=== PATIENT | female | born 1945 | race American Indian/Alaskan Native ===

== ENCOUNTER 2017-02-15 18:02 | Inpatient (IN) | payer BC, MEDICARE ==
[2017-02-15 18:12] VITALS: BMI 69.5
[2017-02-15] MEDS ORDERED: Albuterol-Ipratrop 3 mg / 0.5 (3 ml) UD IH STA ×2 (18:50→18:52)
[2017-02-15 19:21] LABS: BASO # 0.04 K/mm3 (0.0-2.0); BASO % 0.4 % (0.0-3.0); EOS # 0.5 (0.0-0.7); EOS % 5.1 % (1.5-5.0); GRAN # 6.95 (1.4-6.5); GRAN % 72.5 % (50.0-68.0); HEMOGLOBIN 11.7 gm/dL (12.0-16.0); LYMPH # 1.7 (1.2-3.4); LYMPH % 17.4 % (22.0-35.0); MEAN CELL VOLUME 87.2 fL (80.0-105.0); MEAN CORPUSCULAR HEMOGLOBIN 27.8 pg (25.0-35.0); MEAN CORPUSCULAR HGB CONC 31.9 g/dl (31.0-37.0); MEAN PLATELET VOLUME 10.3 fl (7.0-11.0); MONO # 0.4 (0.1-0.6); MONO % 4.6 % (1.0-6.0); PLATELET COUNT 256 10^3/uL (120.0-450.0); RBC 4.21 10^6/uL (3.5-6.1); RED CELL DISTRIBUTION WIDTH 15.6 % (11.5-14.5); WHITE BLOOD COUNT 9.6 10^3/ul (4.5-11.0)
[2017-02-15 19:28] LABS: INR 2.08 (0.93-1.08); PARTIAL THROMBOPLASTIN TIME 45.8 Seconds (23.7-30.8); PROTHROMBIN TIME 22.5 Seconds (9.9-11.8)
[2017-02-15 19:30] LABS: ALB/GLOB RATIO 0.9 (1.1-1.8); ALBUMIN 3.4 g/dL (3.0-4.8); ALT/SGPT 20 U/L (7-56); AST/SGOT 15 U/L (15-39); BLOOD UREA NITROGEN 15 mg/dL (7-21); CALCIUM 8.8 mg/dL (8.4-10.5); GFR AFRICAN-AMERICAN > 60; GFR NON-AFRICAN AMERICAN > 60
[2017-02-15 19:40] LABS: B-TYPE NATRIURETIC PEPTIDE 2680 pg/mL (0-450)
[2017-02-15 19:41] LABS: TROPONIN I < 0.01 ng/mL
--- NOTE | 2017-02-15 21:41 | ED PDOC ---
Arrival/HPI - General Chief Complaint: Shortness Of Breath Time Seen by Provider: 02/15/17 18:31 Historian: Patient - History of Present Illness Narrative History of Present Illness (Text): 02/15/17 21:41 A 71 year old female presents to the emergency department complaining of worsening shortness of breath over the past few days. Patient notes a non- productive cough. As per EMS, patient received a nebulizer treatment on route to emergency room. Patient notes her symptoms improved after medication. Patient denies any fever, chills, nausea, vomiting, diarrhea, abdominal pain, urinary symptoms, chest pain or any other complaints. PMD: Dr. Mann Time/Duration: < week Symptom Course: Improving Quality: Other Context: Other Past Medical History - Provider Review Nursing Documentation Reviewed: Yes - Infectious Disease Hx of Infectious Diseases: None - Tetanus Immunization Tetanus Immunization: Unknown - Cardiac Hx Cardiac Disorders: Yes (lymphedema) Hx Angina: Yes Hx Cardiac Arrhythmia: Yes Hx Congestive Heart Failure: Yes Hx Peripheral Edema: Yes Hx Peripheral Vascular Disease: Yes - Pulmonary Hx Respiratory Disorders: Yes (using 02 at home) Hx Asthma: Yes Hx Chronic Obstructive Pulmonary Disease (COPD): Yes Hx Emphysema: Yes Hx Pneumonia: Yes - Neurological Hx Neurological Disorder: No - HEENT Hx HEENT Disorder: Yes (glasses) - Renal Hx Renal Disorder: No - Endocrine/Metabolic Hx Endocrine Disorders: Yes Hx Diabetes Mellitus Type 2: Yes - Hematological/Oncological Hx Blood Disorders: Yes (SEPTICEMIA) - Integumentary Hx Dermatological Disorder: Yes Other/Comment: pt is obese, right outer thigh skin openings healed, redness, hard brown dry skin, dimpling to left thigh, pt c/o that she, sometimes has drainage from left thigh. both lower legs and feet dry skin. redness and discoloration to right abd fold healed, pt unable to turn in bed to assess skin on back, ble +4 pitting edema redness - Musculoskeletal/Rheumatological Hx Falls: No - Gastrointestinal Hx Gastrointestinal Disorders: Yes (benign mass removed from abd 30 yrs ago) - Genitourinary/Gynecological Hx Genitourinary Disorders: Yes Hx Incontinence: Yes (urine and stool) Hx Urinary Tract Infection: Yes - Psychiatric Hx Psychophysiologic Disorder: No Hx Substance Use: No - Surgical History Hx Cardiac Catheterization: Yes Other/Comment: cardiac cath 2006, picc line, sx to right leg for an infection - Anesthesia Hx Anesthesia: Yes - Suicidal Assessment Feels Threatened In Home Enviroment: No Family/Social History - Physician Review Nursing Documentation Reviewed: Yes Family/Social History: No Known Family HX Smoking Status: Never Smoked Hx Alcohol Use: No Hx Substance Use: No Hx Substance Use Treatment: No Allergies/Home Meds Allergies/Adverse Reactions: Allergies methylprednisolone [From Solu-Medrol] Adverse Reaction (Verified 02/15/17 18:33) RASH make her shake and about to passout Home Medications: Home Meds Medication Instructions Recorded Confirmed Potassium Chloride [K-Dur 20 mEq 20 meq PO DAILY 12/01/15 02/15/17 ER Tab] Digoxin [Digitek] 0.25 mg PO DAILY 12/26/15 02/15/17 Furosemide [Lasix] 60 mg PO BID 12/26/15 02/15/17 Pantoprazole [Protonix EC Tab] 40 mg PO DAILY 12/26/15 02/15/17 Warfarin [Coumadin] 4 mg PO DAILY 12/30/15 02/15/17 Diltiazem HCl [Cartia Xt] 180 mg PO DAILY 04/11/16 02/15/17 MetFORMIN [glucoPHAGE] 500 mg PO BID 04/11/16 02/15/17 Methylprednisolone [Medrol] 2 mg PO DAILY PRN 06/30/16 02/15/17 Review of Systems - Physician Review All systems were reviewed & negative as marked: Yes - Review of Systems Constitutional: absent: Fevers, Night Sweats Respiratory: SOB, Cough. absent: Sputum Cardiovascular: absent: Chest Pain Gastrointestinal: absent: Abdominal Pain, Nausea, Vomiting Genitourinary Female: absent: Dysuria, Frequency, Hematuria, Urine Output Changes Physical Exam Vital Signs Reviewed: Yes Vital Signs Temp Pulse Resp BP Pulse Ox 02/16/17 01:30 92 H 20 112/64 100 02/15/17 23:00 67 18 113/41 L 100 02/15/17 19:04 117/54 L 02/15/17 18:23 24 02/15/17 18:10 98.0 F 65 24 117/54 L 100 Temperature: Afebrile Blood Pressure: Hypotensive Pulse: Regular Respiratory Rate: Normal Appearance: Positive for: Non-Toxic, Comfortable, Other (Morbidly obese female) Pain Distress: None Mental Status: Positive for: Alert and Oriented X 3 - Systems Exam Head: Present: Atraumatic, Normocephalic Pupils: Present: PERRL Extroacular Muscles: Present: EOMI Conjunctiva: Present: Normal Mouth: Present: Moist Mucous Membranes Neck: Present: Normal Range of Motion Respiratory/Chest: Present: Good Air Exchange, Wheezes (bilateral expiratory wheezing). No: Respiratory Distress, Accessory Muscle Use Cardiovascular: Present: Normal S1, S2, Irregular Rhythm. No: Murmurs Abdomen: Present: Normal Bowel Sounds. No: Tenderness, Distention, Peritoneal Signs Back: Present: Normal Inspection Upper Extremity: Present: Normal Inspection. No: Cyanosis, Edema Lower Extremity: Present: Edema (Bilateral pitting edema), NORMAL PULSES. No: CALF TENDERNESS Neurological: Present: GCS=15, CN II-XII Intact, Speech Normal Skin: Present: Warm, Dry, Normal Color. No: Rashes Psychiatric: Present: Alert, Oriented x 3, Normal Insight, Normal Concentration Medical Decision Making ED Course and Treatment: 02/15/17 21:41 Impression: A 71 year old female with worsening shortness of breath and non-productive cough. Plan: -- Chest xray -- EKG -- Labs -- Duoneb, Lasix and Prednisone -- Reassess and disposition Progress Notes: EKG shows atrial fibrillation at 67 BPM. Interpreted by me. After receiving treatments of Duoneb, Lasix and Prednisone, patient reports she feels better. Case discussed with PMD, who is aware of plan. - Lab Interpretations Lab Results: 02/16/17 07:00 02/16/17 07:00 Lab Results 02/16/17 07:00: Sodium 138, Potassium 3.9, Chloride 102, Carbon Dioxide 29, Anion Gap 11, BUN 15, Creatinine 0.7, Est GFR ( Amer) > 60, Est GFR (Non- Af Amer) > 60, Random Glucose 181 H, Calcium 8.7, Phosphorus 3.3, Magnesium 2.0 , Total Bilirubin 0.3, AST 15, ALT 22, Alkaline Phosphatase 62, Total Protein 6.5, Albumin 3.2, Globulin 3.3, Albumin/Globulin Ratio 1.0 L 02/16/17 07:00: WBC 7.9, RBC 4.07, Hgb 10.9 L, Hct 35.2 L, MCV 86.5, MCH 26.8, MCHC 31.0, RDW 15.3 H, Plt Count 259, MPV 10.3, Gran % 92.7 H, Lymph % (Auto) 6.7 L, [place] % (Auto) 0.5 L, Eos % (Auto) 0.0 L, Baso % (Auto) 0.1, Gran # 7.32 H , Lymph # 0.5 L, [place] # 0.0 L, Eos # 0.0, Baso # 0.01 02/15/17 18:25: PT 22.5 H, INR 2.08 H, APTT 45.8 H 02/15/17 18:25: Digoxin 0.9 02/15/17 18:25: Sodium 138, Potassium 3.8, Chloride 101, Carbon Dioxide 29, Anion Gap 12, BUN 15, Creatinine 0.8, Est GFR ( Amer) > 60, Est GFR (Non- Af Amer) > 60, Random Glucose 111 H, Calcium 8.8, Total Bilirubin 0.4, AST 15, ALT 20, Alkaline Phosphatase 80, Lactate Dehydrogenase 325 L, Total Creatine Kinase < 20 L, Troponin I < 0.01, NT-Pro-B Natriuret Pep 2680 H, Total Protein 7.0, Albumin 3.4, Globulin 3.6, Albumin/Globulin Ratio 0.9 L 02/15/17 18:25: WBC 9.6 D, RBC 4.21, Hgb 11.7 L, Hct 36.7, MCV 87.2, MCH 27.8, MCHC 31.9, RDW 15.6 H, Plt Count 256, MPV 10.3, Gran % 72.5 H, Lymph % (Auto) 17.4 L, [place] % (Auto) 4.6, Eos % (Auto) 5.1 H, Baso % (Auto) 0.4, Gran # 6.95 H , Lymph # 1.7, [place] # 0.4, Eos # 0.5, Baso # 0.04 I have reviewed the lab results: Yes - RAD Interpretation Radiology Orders: 02/15/17 18:50 CHEST PORTABLE [RAD] Stat - Medication Orders Current Medication Orders: Albuterol/Ipratropium (Duoneb 3 Mg/0.5 Mg (3 Ml) Ud) 2.5 ml IH Q6 RONI Stop: 02/25/17 00:01 Last Admin: 02/17/17 01:40 Dose: Not Given Non-Admin Reason: Patient Refused Albuterol/Ipratropium (Duoneb 3 Mg/0.5 Mg (3 Ml) Ud) 2.5 ml IH Q2 PRN PRN Reason: SOB Last Admin: 02/16/17 04:24 Dose: 2.5 ml Budesonide (Pulmicort Respules) 1 mg IH BIDRESP RONI Digoxin (Lanoxin) 0.25 mg PO 1400 [facility] Last Admin: 02/16/17 13:31 Dose: 0.25 mg Diltiazem HCl (Cardizem Cd) 180 mg PO DAILY RONI Last Admin: 02/16/17 09:10 Dose: 180 mg Docusate Sodium (Colace) 100 mg PO BID RONI Last Admin: 02/16/17 17:37 Dose: 100 mg Furosemide (Lasix) 40 mg IVP Q12 RONI Last Admin: 02/16/17 21:44 Dose: 40 mg Guaifenesin (Robitussin) 100 mg PO Q4H PRN PRN Reason: Cough Ceftriaxone Sodium (Rocephin 1 Gram Ivpb) 1 gm in 100 mls @ 100 mls/hr IVPB DAILY RONI PRN Reason: Protocol Last Admin: 02/16/17 10:27 Dose: 100 mls/hr Methylprednisolone (Solu-Medrol) 40 mg IVP Q8H RONI Last Admin: 02/16/17 23:36 Dose: 40 mg Pantoprazole Sodium (Protonix Ec Tab) 40 mg PO 0600,1800 [facility] Last Admin: 02/16/17 17:37 Dose: 40 mg Potassium Chloride (K-Dur 20 Meq Er Tab) 20 meq PO BID RONI Stop: 02/18/17 23:59 Last Admin: 02/16/17 17:37 Dose: 20 meq Tiotropium [place] (Spiriva) 18 mcg IH DAILY RONI Last Admin: 02/16/17 09:11 Dose: 18 mcg Warfarin Sodium (Coumadin) 4 mg PO 1800 RONI PRN Reason: Protocol Stop: 02/18/17 18:01 Last Admin: 02/16/17 17:39 Dose: 4 mg Discontinued Medications Albuterol/Ipratropium (Duoneb 3 Mg/0.5 Mg (3 Ml) Ud) 3 ml IH STAT STA Stop: 02/15/17 18:51 Last Admin: 02/15/17 19:03 Dose: 3 ml Albuterol/Ipratropium (Duoneb 3 Mg/0.5 Mg (3 Ml) Ud) 3 ml IH STAT STA Stop: 02/15/17 18:53 Last Admin: 02/15/17 19:39 Dose: Not Given Non-Admin Reason: Patient Refused Albuterol/Ipratropium (Duoneb 3 Mg/0.5 Mg (3 Ml) Ud) 2 ml IH Q2 PRN PRN Reason: SOB Albuterol/Ipratropium (Duoneb 3 Mg/0.5 Mg (3 Ml) Ud) 2.5 ml IH STAT STA Stop: 02/16/17 04:26 Furosemide (Lasix) 40 mg IVP STAT STA Stop: 02/15/17 18:51 Last Admin: 02/15/17 19:04 Dose: 40 mg Prednisone (Prednisone Tab) 60 mg PO STAT ONE Stop: 02/15/17 18:52 Last Admin: 02/15/17 19:04 Dose: 60 mg Prednisone (Prednisone Tab) 40 mg PO DAILY RONI Stop: 02/18/17 23:59 Fluticasone/Salmeterol (Advair Diskus 250/50) 1 puff IH Q12 RONI - Scribe Statement The provider has reviewed the documentation as recorded by the Ashly Aquino Provider Scribe Attestation: All medical record entries made by the Scribe were at my direction and personally dictated by me. I have reviewed the chart and agree that the record accurately reflects my personal performance of the history, physical exam, medical decision making, and the department course for this patient. I have also personally directed, reviewed, and agree with the discharge instructions and disposition. Disposition/Present on Arrival - Present on Arrival Any Indicators Present on Arrival: No History of DVT/PE: No History of Uncontrolled Diabetes: No Urinary Catheter: No History of Decub. Ulcer: No History Surgical Site Infection Following: None - Disposition Have Diagnosis and Disposition been Completed?: Yes Diagnosis: Acute exacerbation of CHF (congestive heart failure), COPD (chronic obstructive pulmonary disease), Morbid obesity Disposition: HOSPITALIZED Disposition Time: 22:00 Patient Problems: Current Active Problems Problem Status Onset Acute exacerbation of CHF (congestive heart failure) Acute COPD (chronic obstructive pulmonary disease) Acute Morbid obesity Acute Condition: STABLE
[2017-02-16] MEDS ORDERED: Albuterol-Ipratrop 3 mg / 0.5 (3 ml) UD IH PRN (01:45)
[2017-02-16] MEDS ORDERED: DEXTROMETHORPHAN PO PRN (02:16)
[2017-02-16] MEDS ORDERED: PROMETHAZINE PO PRN (02:16)
[2017-02-16] MEDS ORDERED: Budesonide 0.5 mg/2 ml Inhal Susp UD IH SCH (03:30)
--- NOTE | 2017-02-16 03:37 | CP.PCM.HP ---
History of Present Illness - History of Present Illness History of Present Illness: 71 y/o AA female with a PMHx significant for morbid obesity with BMI of 69, CHF , COPD, A-Fib, and IIDM who presented to the ED with a c/o being short of breath and wheezing for the past 1-2 days. Pt stated that she has a long history of shortness of breath normally in control with her nebulizer treatment , but that for the last 1-2 days she began feeling sob again. At this point, Ms. Bowden called her PCP, Dr. Mann, who advised her to go to the ED. Pt is morbidly obese and therefore mainly not ambulatory at home. Pt also c/o worsening b/l lower ext swelling. En route to the ED by EMS she received duonebs and Lasix. Ms. Bowden stated that this combination helped alleviate her symptoms. Pt denied fevers, chills, nausea, vomiting, diarrhea, chest pain, and any symptoms PMHx: Morbid obesity, COPD, Asthma, CHF, PSHx: R leg surgery, L breast surgery Allergies: Methylprednisolone SocHx: Denies etoh; smoking; illicits FamHx: Non-contributory Meds: Reviewed Present on Admission - Present on Admission Any Indicators Present on Admission: No Review of Systems - Review of Systems Review of Systems: ROS: Constitutional: pt denies fever, chills, generalized weakness ENT: pt denies dysphagia, ofalgia, hearing deficit, rhinorrhea Eyes: pt denies sudden loss of vision, diplopia, blurred vision MSK: +pt admits to pain in her R foot, lateral 3 toes; +Pt admits to tenderness in b/l LE from the knee down; pt denies muscle stiffness, joint pain, extremity cramping Cardio: +pt admits to palpitations; +patient admits to sob; see hpi Pulm: +pt admits to coughing and wheezing; pt denies hemoptysis GI: pt denies loss of appetite, abdominal pain, constipation, melena, n/v/d : pt denies burning on urination, urinary frequency, hematuria, urinary urgency Neuro: pt denies paresis, paresthesia, dizziness, renteria, numbness, tingling Derm: pt denies skin changes, lesions, nail changes Endo: pt denies intolerance to heat/cold, diaphoresis, night sweats, polydipsia Psych: pt denies anxiety, depression, mood changes Past Patient History - Infectious Disease Hx of Infectious Diseases: None - Tetanus Immunizations Tetanus Immunization: Unknown - Past Social History Smoking Status: Never Smoked - CARDIAC Hx Cardiac Disorders: Yes (lymphedema) Hx Angina: Yes Hx Cardia Arrhythmia: Yes Hx Congestive Heart Failure: Yes Hx Peripheral Edema: Yes Hx Peripheral Vascular Disease: Yes - PULMONARY Hx Respiratory Disorders: Yes (using 02 at home) Hx Asthma: Yes Hx Chronic Obstructive Pulmonary Disease (COPD): Yes Hx Emphysema: Yes Hx Pneumonia: Yes - NEUROLOGICAL Hx Neurological Disorder: No - HEENT Hx HEENT Problems: Yes (glasses) - RENAL Hx Chronic Kidney Disease: No - ENDOCRINE/METABOLIC Hx Endocrine Disorders: Yes Hx Diabetes Mellitus Type 2: Yes - HEMATOLOGICAL/ONCOLOGICAL Hx Blood Disorders: Yes (SEPTICEMIA) - INTEGUMENTARY Hx Dermatological Problems: Yes Other/Comment: pt is obese, right outer thigh skin openings healed, redness, hard brown dry skin, dimpling to left thigh, pt c/o that she, sometimes has drainage from left thigh. both lower legs and feet dry skin. redness and discoloration to right abd fold healed, pt unable to turn in bed to assess skin on back, ble +4 pitting edema redness - MUSCULOSKELETAL/RHEUMATOLOGICAL Hx Falls: No - GASTROINTESTINAL Hx Gastrointestinal Disorders: Yes (benign mass removed from abd 30 yrs ago) - GENITOURINARY/GYNECOLOGICAL Hx Genitourinary Disorders: Yes Hx Incontinence: Yes (urine and stool) Hx Urinary Tract Infection: Yes - PSYCHIATRIC Hx Psychophysiologic Disorder: No - SURGICAL HISTORY Hx Cardiac Catheterization: Yes Other/Comment: cardiac cath 2005, picc line, sx to right leg for an infection - ANESTHESIA Hx Anesthesia: Yes Meds Allergies/Adverse Reactions: Allergies Allergy/AdvReac Type Severity Reaction Status Date / Time methylprednisolone AdvReac RASH Verified 02/15/17 18:33 [From Solu-Medrol] Physical Exam - Constitutional Additional comments: Physical Exam: VS as above Constitutional: morbidly obese female, a&o x 4, mild distress, on O2 Head and Neck: neck supple, no jvd, trachea midline, carotid midline,no cervical /head mass Eyes: pierre, nonicteric sclera, eom intact ENT: auditory acuity grossly intact, throat not congested, no nasal deformity Cardio: +abnormal rhythm, rrr, no m/r/g, no carotid bruit, nml s1, s2 Pulm: +accessory muscle use, +diffuse wheezes, equal nml breath sounds bilaterally Abd: s/nt/nd, nbs x 4 q, no palpable masses Derm: no rashes, no ulcers, no lesions Extr: +b/l 4+ edema, +b/l TTP LE, no cyanosis, no calf tenderness, no lesions, no varicosities Neuro: cn II-XII grossly intact, ue and le 3+ muscle strength bilaterally, no los ue, le bilaterally and core Results - Vital Signs Recent Vital Signs: Last Vital Signs Temp 98.5 F 02/16/17 02:31 Pulse 70 02/16/17 02:31 Resp 19 02/16/17 02:31 BP 119/57 L 02/16/17 02:31 Pulse Ox 100 02/16/17 01:30 - Labs Result Diagrams: 02/15/17 18:25 02/15/17 18:25 Assessment & Plan - Assessment and Plan (Free Text) Assessment: 71 y/o AA female with a PMHx significant with morbid obesity with BMI of 69, CHF , COPD, A-Fib, and IIDM who presented to the ED with a c/o being short of breath and wheezing since 1-2 days. 1.) SOB 2/2 COPD Exacerbation VS CHF Exacerbation + wheezing on exam - Duonebs Q2H PRN and Q6H RONI - Steroids prednisone - Lasix 40 bid IVP - Supplement O2; keep at 90-94% - Continue home spiriva - Continue home budesonide - ECHO if heart function worse - consider consult cardio - Trope negative X1 - BNP 2680 2.) Atrial Fibrillation - Cont home Diltiazem rate control 67 - Cont home Coumadin anticoagulation (INR therapeutic - 2.08) - Cont home Digoxin - EKG shows A-Fib with 67 bpm 3.) Insulin Independent Diabetes Mellitus - Hold home metformin while in hospital - Humulin low dose sliding scale started as protocol, 4.) Hx/O GERD -Protonix 5.) Heart Healthy Diet 6.) DVT PPHXS - Coumadin
[2017-02-16] MEDS: Albuterol-Ipratrop 3 mg / 0.5 (3 ml) UD IH PRN ×2 (03:51→04:24)
[2017-02-16] MEDS ORDERED: guaiFENesin 100 mg/5 ml Syrup UD PO PRN (04:22)
[2017-02-16] MEDS ORDERED: Albuterol-Ipratrop 3 mg / 0.5 (3 ml) UD IH STA (04:25)
[2017-02-16] MEDS: Pantoprazole 40 mg EC Tab PO SCH ×2 (05:26→17:37)
[2017-02-16 08:04] LABS: BASO # 0.01 K/mm3 (0.0-2.0); BASO % 0.1 % (0.0-3.0); GRAN # 7.32 (1.4-6.5); GRAN % 92.7 % (50.0-68.0); HEMOGLOBIN 10.9 gm/dL (12.0-16.0); LYMPH # 0.5 (1.2-3.4); LYMPH % 6.7 % (22.0-35.0); MEAN CELL VOLUME 86.5 fL (80.0-105.0); MEAN CORPUSCULAR HEMOGLOBIN 26.8 pg (25.0-35.0); MEAN PLATELET VOLUME 10.3 fl (7.0-11.0); MONO % 0.5 % (1.0-6.0); PLATELET COUNT 259 10^3/uL (120.0-450.0); RBC 4.07 10^6/uL (3.5-6.1); RED CELL DISTRIBUTION WIDTH 15.3 % (11.5-14.5); WHITE BLOOD COUNT 7.9 10^3/ul (4.5-11.0)
[2017-02-16 08:13] LABS: ALBUMIN 3.2 g/dL (3.0-4.8); ALT/SGPT 22 U/L (7-56); AST/SGOT 15 U/L (15-39); BLOOD UREA NITROGEN 15 mg/dL (7-21); CALCIUM 8.7 mg/dL (8.4-10.5); GFR AFRICAN-AMERICAN > 60; GFR NON-AFRICAN AMERICAN > 60
[2017-02-16] MEDS: Albuterol-Ipratrop 3 mg / 0.5 (3 ml) UD IH SCH ×3 (08:18→19:37)
--- NOTE | 2017-02-16 08:21 | RAD ---
HISTORY: r/o infiltrate COMPARISON: 06/30/2016 FINDINGS: LUNGS: No active pulmonary disease. PLEURA: No significant pleural effusion identified, no pneumothorax apparent. CARDIOVASCULAR: Normal. OSSEOUS STRUCTURES: No significant abnormalities. VISUALIZED UPPER ABDOMEN: Normal. OTHER FINDINGS: None. IMPRESSION: No active disease.
--- NOTE | 2017-02-16 08:55 | CP.PCM.HP ---
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 pmedhx m obese copd chf dm asthma payal thigh nonhealing ulcers psurghx rt leg left breast nkda psochx no tob no alc no drugs pfamhx htn dm Present on Admission - Present on Admission Any Indicators Present on Admission: Yes History of DVT/PE: No History of Uncontrolled Diabetes: Yes Urinary Catheter: No Decubitus Ulcer Present: Yes Decubitus Ulcer Stage: II Review of Systems - Constitutional Constitutional: Weakness - Respiratory Respiratory: Dyspnea on Exertion, Wheezing - Integumentary Integumentary: Skin Ulcer Past Patient History - Infectious Disease Hx of Infectious Diseases: None - Tetanus Immunizations Tetanus Immunization: Unknown - Past Social History Smoking Status: Never Smoked - CARDIAC Hx Cardiac Disorders: Yes (lymphedema) Hx Angina: Yes Hx Cardia Arrhythmia: Yes Hx Congestive Heart Failure: Yes Hx Peripheral Edema: Yes Hx Peripheral Vascular Disease: Yes - PULMONARY Hx Respiratory Disorders: Yes (using 02 at home) Hx Asthma: Yes Hx Chronic Obstructive Pulmonary Disease (COPD): Yes Hx Emphysema: Yes Hx Pneumonia: Yes - NEUROLOGICAL Hx Neurological Disorder: No - HEENT Hx HEENT Problems: Yes (glasses) - RENAL Hx Chronic Kidney Disease: No - ENDOCRINE/METABOLIC Hx Endocrine Disorders: Yes Hx Diabetes Mellitus Type 2: Yes - HEMATOLOGICAL/ONCOLOGICAL Hx Blood Disorders: Yes (SEPTICEMIA) - INTEGUMENTARY Hx Dermatological Problems: Yes Other/Comment: pt is obese, right outer thigh skin openings healed, redness, hard brown dry skin, dimpling to left thigh, pt c/o that she, sometimes has drainage from left thigh. both lower legs and feet dry skin. redness and discoloration to right abd fold healed, pt unable to turn in bed to assess skin on back, ble +4 pitting edema redness - MUSCULOSKELETAL/RHEUMATOLOGICAL Hx Falls: No - GASTROINTESTINAL Hx Gastrointestinal Disorders: Yes (benign mass removed from abd 30 yrs ago) - GENITOURINARY/GYNECOLOGICAL Hx Genitourinary Disorders: Yes Hx Incontinence: Yes (urine and stool) Hx Urinary Tract Infection: Yes - PSYCHIATRIC Hx Psychophysiologic Disorder: No - SURGICAL HISTORY Hx Cardiac Catheterization: Yes Other/Comment: cardiac cath 2005, picc line, sx to right leg for an infection - ANESTHESIA Hx Anesthesia: Yes Meds Allergies/Adverse Reactions: Allergies Allergy/AdvReac Type Severity Reaction Status Date / Time methylprednisolone AdvReac RASH Verified 02/15/17 18:33 [From Solu-Medrol] Physical Exam - ENT Exam ENT Exam: Normal Exam - Respiratory Exam Respiratory Exam: Decreased Breath Sounds, Wheezes - Cardiovascular Exam Cardiovascular Exam: REGULAR RHYTHM - GI/Abdominal Exam GI & Abdominal Exam: Normal Bowel Sounds, Soft - Extremities Exam Additional comments: severe edema - Back Exam Back exam: NORMAL INSPECTION - Neurological Exam Neurological exam: Alert, CN II-XII Intact, Oriented x3 - Psychiatric Exam Psychiatric exam: Normal Affect - Skin Skin Exam: Warm Additional comments: payal thigh ulcers Results - Vital Signs Recent Vital Signs: Last Vital Signs Temp 98.5 F 02/16/17 02:31 Pulse 70 02/16/17 02:31 Resp 19 02/16/17 02:31 BP 119/57 L 02/16/17 02:31 Pulse Ox 100 02/16/17 01:30 - Labs Result Diagrams: 02/16/17 07:00 02/16/17 07:00 Assessment & Plan - Assessment and Plan (Free Text) Assessment: failed outpatient abs x 2 for payal thigh ulcers and bronchitis copd chf foot pain and finally came to the hosp cardio pulm surgery podiatry evals iv abs iv solumedrop o2 Plan: consults iv steroids abs o2 - Date & Time Date: 02/16/17 Time: 07:00
[2017-02-16] MEDS: Potassium Chloride 20 mEq ER Tab PO SCH ×2 (09:09→17:37)
[2017-02-16] MEDS: diltiaZEM 180 mg/24 Hours CD Cap PO SCH (09:10)
[2017-02-16] MEDS: Tiotropium 18 mcg Cap For Inhalation IH SCH (09:11)
[2017-02-16] MEDS: MethylPREDNISolone 40 mg Vial IVP SCH ×3 (09:11→23:36)
--- NOTE | 2017-02-16 09:37 | CARD ---
APPROVED REPORT EKG Measurement Heart [id number] <Conclusion> Atrial fibrillation Nonspecific T wave abnormality ST depressions V 3 - 6 no longer present c/w ECG 06/30/16
[2017-02-16] MEDS ORDERED: Fluticasone-Salmeterol 250-50mcg Diskus IH SCH (10:00)
[2017-02-16] MEDS: cefTRIAXone 1 gm 1 GM/100 ML BAG IVPB SCH (10:27)
--- NOTE | 2017-02-16 11:29 | CP.PCM.CON ---
<Orquidea Temple - Last Filed: 02/16/17 11:25> History of Present Illness - History of Present Illness History of Present Illness: 71 year old female with PMHx including morbid obesity, CHF, COPD, A-Fib, and IIDM was seen at bedside regarding right foot pain. Patient states that when she was transported to the hospital yesterday her toes got hurt when they were moving her on the tarp. She denies any n/v/f/c/sob/cp. Past Patient History - Infectious Disease Hx of Infectious Diseases: None - Tetanus Immunizations Tetanus Immunization: Unknown - Past Social History Smoking Status: Never Smoked - CARDIAC Hx Cardiac Disorders: Yes (lymphedema) Hx Angina: Yes Hx Cardia Arrhythmia: Yes Hx Congestive Heart Failure: Yes Hx Peripheral Edema: Yes Hx Peripheral Vascular Disease: Yes - PULMONARY Hx Respiratory Disorders: Yes (using 02 at home) Hx Asthma: Yes Hx Chronic Obstructive Pulmonary Disease (COPD): Yes Hx Emphysema: Yes Hx Pneumonia: Yes - NEUROLOGICAL Hx Neurological Disorder: No - HEENT Hx HEENT Problems: Yes (glasses) - RENAL Hx Chronic Kidney Disease: No - ENDOCRINE/METABOLIC Hx Endocrine Disorders: Yes Hx Diabetes Mellitus Type 2: Yes - HEMATOLOGICAL/ONCOLOGICAL Hx Blood Disorders: Yes (SEPTICEMIA) - INTEGUMENTARY Hx Dermatological Problems: Yes Other/Comment: pt is obese, right outer thigh skin openings healed, redness, hard brown dry skin, dimpling to left thigh, pt c/o that she, sometimes has drainage from left thigh. both lower legs and feet dry skin. redness and discoloration to right abd fold healed, pt unable to turn in bed to assess skin on back, ble +4 pitting edema redness - MUSCULOSKELETAL/RHEUMATOLOGICAL Hx Falls: No - GASTROINTESTINAL Hx Gastrointestinal Disorders: Yes (benign mass removed from abd 30 yrs ago) - GENITOURINARY/GYNECOLOGICAL Hx Genitourinary Disorders: Yes Hx Incontinence: Yes (urine and stool) Hx Urinary Tract Infection: Yes - PSYCHIATRIC Hx Psychophysiologic Disorder: No - SURGICAL HISTORY Hx Cardiac Catheterization: Yes Other/Comment: cardiac cath 2006, picc line, sx to right leg for an infection - ANESTHESIA Hx Anesthesia: Yes Meds Allergies/Adverse Reactions: Allergies Allergy/AdvReac Type Severity Reaction Status Date / Time No Known Allergies Allergy Verified 02/17/17 22:58 - Medications Medications: Current Medications Albuterol/Ipratropium (Duoneb 3 Mg/0.5 Mg (3 Ml) Ud) 2.5 ml IH Q6 [facility] Stop: 02/25/17 00:01 Last Admin: 02/16/17 08:18 Dose: 2.5 ml Albuterol/Ipratropium (Duoneb 3 Mg/0.5 Mg (3 Ml) Ud) 2.5 ml IH Q2 PRN PRN Reason: SOB Last Admin: 02/16/17 04:24 Dose: 2.5 ml Budesonide (Pulmicort Respules) 1 mg IH BIDRESP [facility] Digoxin (Lanoxin) 0.25 mg PO 1400 [facility] Diltiazem HCl (Cardizem Cd) 180 mg PO DAILY [facility] Last Admin: 02/16/17 09:10 Dose: 180 mg Docusate Sodium (Colace) 100 mg PO BID [facility] Last Admin: 02/16/17 09:11 Dose: 100 mg Furosemide (Lasix) 40 mg IVP Q12 [facility] Last Admin: 02/16/17 09:11 Dose: 40 mg Guaifenesin (Robitussin) 100 mg PO Q4H PRN PRN Reason: Cough Ceftriaxone Sodium (Rocephin 1 Gram Ivpb) 1 gm in 100 mls @ 100 mls/hr IVPB DAILY [facility] PRN Reason: Protocol Last Admin: 02/16/17 10:27 Dose: 100 mls/hr Methylprednisolone (Solu-Medrol) 40 mg IVP Q8H [facility] Last Admin: 02/16/17 09:11 Dose: 40 mg Pantoprazole Sodium (Protonix Ec Tab) 40 mg PO 0600,1800 [facility] Last Admin: 02/16/17 05:26 Dose: 40 mg Potassium Chloride (K-Dur 20 Meq Er Tab) 20 meq PO BID [facility] Stop: 02/18/17 23:59 Last Admin: 02/16/17 09:09 Dose: 20 meq Tiotropium Adrian (Spiriva) 18 mcg IH DAILY [facility] Last Admin: 02/16/17 09:11 Dose: 18 mcg Warfarin Sodium (Coumadin) 4 mg PO 1800 [facility] PRN Reason: Protocol Stop: 02/18/17 18:01 Physical Exam - Constitutional Appears: No Acute Distress - Extremities Exam Additional comments: lower extremity focused exam: Vasc: Pedal pulses non-palpable due to edema. Skin temperature warm to cool from proximal to distal b/l. Ortho: Tenderness on palpation to 3rd digit right foot. Derm: No open lesions, no malodor, no drainage noted. Nails 1-5 b/l are thickened, elongated, discolored b/l. - Neurological Exam Neurological exam: Alert, Oriented x3 - Psychiatric Exam Psychiatric exam: Normal Affect, Normal Mood Results - Vital Signs Recent Vital Signs: Last Vital Signs Temp 98.5 F 02/16/17 02:31 Pulse 62 02/16/17 09:10 Resp 19 02/16/17 02:31 BP 116/58 L 02/16/17 09:11 Pulse Ox 100 02/16/17 01:30 - Labs Result Diagrams: 02/16/17 07:00 02/16/17 07:00 Assessment & Plan - Assessment and Plan (Free Text) Assessment: 71 year old female with pain to right foot Plan: patient examined and evaluated labs, chart, vitals reviewed right foot left undressed podiatry will continue to follow patient while in house <Maria Isabel Hsieh - Last Filed: 02/18/17 14:54> Meds - Medications Medications: Current Medications Albuterol/Ipratropium (Duoneb 3 Mg/0.5 Mg (3 Ml) Ud) 2.5 ml IH Q6 [facility] Stop: 02/25/17 00:01 Last Admin: 02/18/17 13:38 Dose: Not Given Albuterol/Ipratropium (Duoneb 3 Mg/0.5 Mg (3 Ml) Ud) 2.5 ml IH Q2 PRN PRN Reason: SOB Last Admin: 02/16/17 04:24 Dose: 2.5 ml Budesonide (Pulmicort Respules) 1 mg IH BIDRESP [facility] Last Admin: 02/18/17 07:57 Dose: 1 mg Digoxin (Lanoxin) 0.25 mg PO 1400 [facility] Last Admin: 02/18/17 14:30 Dose: 0.25 mg Diltiazem HCl (Cardizem Cd) 180 mg PO DAILY [facility] Last Admin: 02/18/17 09:31 Dose: 180 mg Docusate Sodium (Colace) 100 mg PO BID [facility] Last Admin: 02/18/17 09:30 Dose: 100 mg Furosemide (Lasix) 40 mg IVP Q12 [facility] Last Admin: 02/18/17 09:30 Dose: 40 mg Guaifenesin (Robitussin) 100 mg PO Q4H PRN PRN Reason: Cough Last Admin: 02/18/17 02:39 Dose: 100 mg Ceftriaxone Sodium (Rocephin 1 Gram Ivpb) 1 gm in 100 mls @ 100 mls/hr IVPB DAILY [facility] PRN Reason: Protocol Last Admin: 02/18/17 09:31 Dose: 100 mls/hr Methylprednisolone (Solu-Medrol) 40 mg IVP Q12 [facility] Last Admin: 02/18/17 09:31 Dose: 40 mg Pantoprazole Sodium (Protonix Ec Tab) 40 mg PO 0600,1800 [facility] Last Admin: 02/18/17 06:41 Dose: 40 mg Potassium Chloride (K-Dur 20 Meq Er Tab) 20 meq PO BID [facility] Stop: 02/18/17 23:59 Last Admin: 02/18/17 09:30 Dose: 20 meq Tiotropium Adrian (Spiriva) 18 mcg IH DAILY [facility] Last Admin: 02/18/17 09:29 Dose: 18 mcg Warfarin Sodium (Coumadin) 4 mg PO 1800 [facility] PRN Reason: Protocol Stop: 02/18/17 18:01 Last Admin: 02/17/17 17:29 Dose: 4 mg Results - Vital Signs Recent Vital Signs: Last Vital Signs Temp 97.6 F 02/18/17 06:00 Pulse 79 02/18/17 09:31 Resp 20 02/18/17 06:00 BP 102/60 02/18/17 09:31 Pulse Ox 100 02/18/17 06:00 - Labs Result Diagrams: 02/18/17 07:00 02/18/17 07:00 Labs: Laboratory Results - last 24 hr 02/18/17 02/18/17 02/18/17 07:00 07:00 07:00 WBC 7.9 RBC 4.50 Hgb 12.3 Hct 38.6 MCV 85.8 MCH 27.3 MCHC 31.9 RDW 15.5 H Plt Count 278 MPV 10.7 PT 21.6 H INR 2.00 H Sodium 138 Potassium 4.3 Chloride 100 Carbon Dioxide 26 Anion Gap 16 BUN 16 Creatinine 0.6 Est GFR ( Amer) > 60 Est GFR (Non-Af Amer) > 60 Random Glucose 289 H Calcium 8.4 Total Bilirubin 0.5 AST 14 L ALT 20 Alkaline Phosphatase 62 Total Protein 7.0 Albumin 3.5 Globulin 3.4 Albumin/Globulin Ratio 1.0 L Attending/Attestation - Attestation I have personally seen and examined this patient.: Yes I have fully participated in the care of the patient.: Yes I have reviewed all pertinent clinical information: Yes
--- NOTE | 2017-02-16 11:52 | CP.PCM.CON ---
History of Present Illness - History of Present Illness History of Present Illness: General Surgery PGY [address] Castillo Patient is a 71 AA female with a PMH of CHF, COPD, Afib, DM and morbid obesity. Patient states that she was experiencing increased difficulty breathing over the past 2 days when she called her PCP, Dr. Mann, who instructed her to go to the ED. She stated that she was experiencing SOB/CP due to constant coughing. She says that she is currently feeling much better after she received duonebs and lasix. The patient states that she feels her legs are larger than usual because she is retaining more fluid then usual. She has b/l thigh ulcers that have been seeping more fluid of late. She states that at times the fluid is blood but it is usually clear. She has not been able to walk for the past few years, believes 2011 was the last time she was able to walk. Review of Systems - Review of Systems All systems: reviewed and no additional remarkable complaints except - Constitutional Constitutional: As Per HPI - EENT Eyes: As Per HPI Nose/Mouth/Throat: As Per HPI - Cardiovascular Cardiovascular: As Per HPI - Respiratory Respiratory: As Per HPI - Gastrointestinal Gastrointestinal: As Per HPI - Genitourinary Genitourinary: As Per HPI - Musculoskeletal Musculoskeletal: As Per HPI - Integumentary Integumentary: As Per HPI - Endocrine Endocrine: As Per HPI - Hematologic/Lymphatic Hematologic: As Per HPI Past Patient History - Infectious Disease Hx of Infectious Diseases: None - Tetanus Immunizations Tetanus Immunization: Unknown - Past Social History Smoking Status: Never Smoked - CARDIAC Hx Cardiac Disorders: Yes (lymphedema) Hx Angina: Yes Hx Cardia Arrhythmia: Yes Hx Congestive Heart Failure: Yes Hx Peripheral Edema: Yes Hx Peripheral Vascular Disease: Yes - PULMONARY Hx Respiratory Disorders: Yes (using 02 at home) Hx Asthma: Yes Hx Chronic Obstructive Pulmonary Disease (COPD): Yes Hx Emphysema: Yes Hx Pneumonia: Yes - NEUROLOGICAL Hx Neurological Disorder: No - HEENT Hx HEENT Problems: Yes (glasses) - RENAL Hx Chronic Kidney Disease: No - ENDOCRINE/METABOLIC Hx Endocrine Disorders: Yes Hx Diabetes Mellitus Type 2: Yes - HEMATOLOGICAL/ONCOLOGICAL Hx Blood Disorders: Yes (SEPTICEMIA) - INTEGUMENTARY Hx Dermatological Problems: Yes Other/Comment: pt is obese, right outer thigh skin openings healed, redness, hard brown dry skin, dimpling to left thigh, pt c/o that she, sometimes has drainage from left thigh. both lower legs and feet dry skin. redness and discoloration to right abd fold healed, pt unable to turn in bed to assess skin on back, ble +4 pitting edema redness - MUSCULOSKELETAL/RHEUMATOLOGICAL Hx Falls: No - GASTROINTESTINAL Hx Gastrointestinal Disorders: Yes (benign mass removed from abd 30 yrs ago) - GENITOURINARY/GYNECOLOGICAL Hx Genitourinary Disorders: Yes Hx Incontinence: Yes (urine and stool) Hx Urinary Tract Infection: Yes - PSYCHIATRIC Hx Psychophysiologic Disorder: No - SURGICAL HISTORY Hx Cardiac Catheterization: Yes Other/Comment: cardiac cath 2005, picc line, sx to right leg for an infection - ANESTHESIA Hx Anesthesia: Yes Meds Allergies/Adverse Reactions: Allergies Allergy/AdvReac Type Severity Reaction Status Date / Time methylprednisolone AdvReac RASH Verified 02/15/17 18:33 [From Solu-Medrol] - Medications Medications: Current Medications Albuterol/Ipratropium (Duoneb 3 Mg/0.5 Mg (3 Ml) Ud) 2.5 ml IH Q6 [facility] Stop: 02/25/17 00:01 Last Admin: 02/16/17 08:18 Dose: 2.5 ml Albuterol/Ipratropium (Duoneb 3 Mg/0.5 Mg (3 Ml) Ud) 2.5 ml IH Q2 PRN PRN Reason: SOB Last Admin: 02/16/17 04:24 Dose: 2.5 ml Budesonide (Pulmicort Respules) 1 mg IH BIDRESP [facility] Digoxin (Lanoxin) 0.25 mg PO 1400 [facility] Diltiazem HCl (Cardizem Cd) 180 mg PO DAILY [facility] Last Admin: 02/16/17 09:10 Dose: 180 mg Docusate Sodium (Colace) 100 mg PO BID [facility] Last Admin: 02/16/17 09:11 Dose: 100 mg Furosemide (Lasix) 40 mg IVP Q12 [facility] Last Admin: 02/16/17 09:11 Dose: 40 mg Guaifenesin (Robitussin) 100 mg PO Q4H PRN PRN Reason: Cough Ceftriaxone Sodium (Rocephin 1 Gram Ivpb) 1 gm in 100 mls @ 100 mls/hr IVPB DAILY [facility] PRN Reason: Protocol Last Admin: 02/16/17 10:27 Dose: 100 mls/hr Methylprednisolone (Solu-Medrol) 40 mg IVP Q8H [facility] Last Admin: 02/16/17 09:11 Dose: 40 mg Pantoprazole Sodium (Protonix Ec Tab) 40 mg PO 0600,1800 [facility] Last Admin: 02/16/17 05:26 Dose: 40 mg Potassium Chloride (K-Dur 20 Meq Er Tab) 20 meq PO BID [facility] Stop: 02/18/17 23:59 Last Admin: 02/16/17 09:09 Dose: 20 meq Tiotropium Alfred (Spiriva) 18 mcg IH DAILY [facility] Last Admin: 02/16/17 09:11 Dose: 18 mcg Warfarin Sodium (Coumadin) 4 mg PO 1800 [facility] PRN Reason: Protocol Stop: 02/18/17 18:01 Physical Exam - Constitutional Additional comments: Morbidly Obese - Head Exam Head Exam: ATRAUMATIC, NORMOCEPHALIC - Cardiovascular Exam Cardiovascular Exam: REGULAR RHYTHM, +S1, +S2 - Expanded Lower Extremities Exam Left Upper Leg exam: swelling Knee exam: swelling Lower Leg Exam: swelling, tenderness Ankle exam: swelling Foot/Toe exam: swelling Right Upper Leg exam: swelling (4+ swelling b/l from the hips to toes. Patient does not tolerate being touched below knee due to pain. Unable to roll patient or lift legs to completely look at the posterior portion of legs b/l ) Knee exam: swelling Lower Leg Exam: swelling, tenderness Ankle exam: swelling Foot/Toe exam: swelling Results - Vital Signs Recent Vital Signs: Last Vital Signs Temp 98.5 F 02/16/17 02:31 Pulse 62 02/16/17 09:10 Resp 19 02/16/17 02:31 BP 116/58 L 02/16/17 09:11 Pulse Ox 100 02/16/17 01:30 - Labs Result Diagrams: 02/16/17 07:00 02/16/17 07:00 Assessment & Plan - Assessment and Plan (Free Text) Assessment: 71 year old AA female with difficulty breathing and b/l thigh ulcers. Plan: b/l thigh ulcers show no signs of infection at this time. continue to monitor ulcers for signs of infection No surgical intervention at this time. Rolando Bernard PGY 1
[2017-02-16] MEDS: Digoxin 250 mcg (0.25 mg) Tab PO SCH (13:31)
--- NOTE | 2017-02-16 17:45 | RAD ---
HISTORY: Confirmation COMPARISON: 02/15/2017 FINDINGS: LUNGS: There is mild pulmonary venous congestion. No focal consolidation. PLEURA: No significant pleural effusion identified, no pneumothorax apparent. CARDIOVASCULAR: There is moderate cardiomegaly. OSSEOUS STRUCTURES: No significant abnormalities. VISUALIZED UPPER ABDOMEN: Normal. OTHER FINDINGS: None. IMPRESSION: Moderate cardiomegaly and mild pulmonary venous congestion.
[2017-02-17] MEDS: Albuterol-Ipratrop 3 mg / 0.5 (3 ml) UD IH SCH ×4 (01:40→19:48)
[2017-02-17] MEDS: Pantoprazole 40 mg EC Tab PO SCH ×2 (06:00→17:29)
--- NOTE | 2017-02-17 07:44 | CP.PCM.PN ---
Subjective - Date & Time of Evaluation Date of Evaluation: 02/17/17 Time of Evaluation: 07:00 - Subjective Subjective: seen in bed present a bit better less sob less swollen although fluid is dripping out of payal thigh ulcers to the floor a fair amount on top of her diuresing from the iv lasix eats well no pain no sob no cp no abd pain breathing better lots of questions for me Objective - Vital Signs/Intake and Output Vital Signs (last 24 hours): Temp Pulse Resp BP Pulse Ox 97.8 F 63 20 130/71 100 02/17/17 06:00 02/17/17 06:00 02/17/17 06:00 02/17/17 06:00 02/17/17 06:00 Intake and Output: 02/17/17 02/17/17 06:59 18:59 Intake Total 0 Balance 0 - Medications Medications: Current Medications Albuterol/Ipratropium (Duoneb 3 Mg/0.5 Mg (3 Ml) Ud) 2.5 ml IH Q6 [facility] Stop: 02/25/17 00:01 Last Admin: 02/17/17 01:40 Dose: Not Given Albuterol/Ipratropium (Duoneb 3 Mg/0.5 Mg (3 Ml) Ud) 2.5 ml IH Q2 PRN PRN Reason: SOB Last Admin: 02/16/17 04:24 Dose: 2.5 ml Budesonide (Pulmicort Respules) 1 mg IH BIDRESP [facility] Digoxin (Lanoxin) 0.25 mg PO 1400 [facility] Last Admin: 02/16/17 13:31 Dose: 0.25 mg Diltiazem HCl (Cardizem Cd) 180 mg PO DAILY [facility] Last Admin: 02/16/17 09:10 Dose: 180 mg Docusate Sodium (Colace) 100 mg PO BID [facility] Last Admin: 02/16/17 17:37 Dose: 100 mg Furosemide (Lasix) 40 mg IVP Q12 [facility] Last Admin: 02/16/17 21:44 Dose: 40 mg Guaifenesin (Robitussin) 100 mg PO Q4H PRN PRN Reason: Cough Ceftriaxone Sodium (Rocephin 1 Gram Ivpb) 1 gm in 100 mls @ 100 mls/hr IVPB DAILY [facility] PRN Reason: Protocol Last Admin: 02/16/17 10:27 Dose: 100 mls/hr Methylprednisolone (Solu-Medrol) 40 mg IVP Q12 [facility] Pantoprazole Sodium (Protonix Ec Tab) 40 mg PO 0600,1800 [facility] Last Admin: 02/17/17 06:00 Dose: 40 mg Potassium Chloride (K-Dur 20 Meq Er Tab) 20 meq PO BID [facility] Stop: 02/18/17 23:59 Last Admin: 02/16/17 17:37 Dose: 20 meq Tiotropium Sterling (Spiriva) 18 mcg IH DAILY [facility] Last Admin: 02/16/17 09:11 Dose: 18 mcg Warfarin Sodium (Coumadin) 4 mg PO 1800 [facility] PRN Reason: Protocol Stop: 02/18/17 18:01 Last Admin: 02/16/17 17:39 Dose: 4 mg - Labs Labs: PT 22.5 Seconds (9.9-11.8) H 02/15/17 18:25 INR 2.08 (0.93-1.08) H 02/15/17 18:25 APTT 45.8 Seconds (23.7-30.8) H 02/15/17 18:25 - Constitutional Appears: No Acute Distress - Head Exam Head Exam: NORMAL INSPECTION - Eye Exam Eye Exam: Normal appearance - ENT Exam ENT Exam: Mucous Membranes Moist - Respiratory Exam Respiratory Exam: Decreased Breath Sounds, Clear to Ausculation Bilateral - Cardiovascular Exam Cardiovascular Exam: REGULAR RHYTHM - GI/Abdominal Exam GI & Abdominal Exam: Soft Additional comments: morbidly obese - Extremities Exam Additional comments: +10/4 pe payal legs - Neurological Exam Neurological Exam: Alert, CN II-XII Intact, Oriented x3 - Psychiatric Exam Psychiatric exam: Normal Affect, Normal Mood - Skin Skin Exam: Warm Additional comments: payal thigh ulcers ozzing fluids a lot Assessment and Plan - Assessment and Plan (Free Text) Assessment: mobese payal thigh ulcers w/ oozing chf copd afib dm improving sob Plan: cont w/ iv lasix iv solumedrol checking labs answered questions a lot more diuresing to go 30 plus #s cont w/ tmt and care went over labs meds tests
[2017-02-17 08:13] LABS: HEMOGLOBIN 11.7 gm/dL (12.0-16.0); MEAN CELL VOLUME 86.4 fL (80.0-105.0); MEAN CORPUSCULAR HEMOGLOBIN 27.5 pg (25.0-35.0); MEAN CORPUSCULAR HGB CONC 31.9 g/dl (31.0-37.0); MEAN PLATELET VOLUME 10.4 fl (7.0-11.0); RBC 4.25 10^6/uL (3.5-6.1); RED CELL DISTRIBUTION WIDTH 15.4 % (11.5-14.5); WHITE BLOOD COUNT 8.7 10^3/ul (4.5-11.0)
[2017-02-17 08:18] LABS: INR 1.86 (0.93-1.08); PROTHROMBIN TIME 20.1 Seconds (9.9-11.8)
[2017-02-17 08:24] LABS: ALBUMIN 3.3 g/dL (3.0-4.8); ALT/SGPT 18 U/L (7-56); AST/SGOT 14 U/L (15-39); BLOOD UREA NITROGEN 16 mg/dL (7-21); CALCIUM 8.8 mg/dL (8.4-10.5); GFR AFRICAN-AMERICAN > 60; GFR NON-AFRICAN AMERICAN > 60
--- NOTE | 2017-02-17 09:14 | CARD ---
APPROVED REPORT EXAM: Two-dimensional and M-mode echocardiogram with Doppler and color Doppler. Other Information Quality : GoodRhythm : INDICATION Dyspnea 2D DIMENSIONS Left Atrium (2D)5.0 (1.6-4.0cm)IVSd1.0 (0.7-1.1cm) LVDd4.8 (3.9-5.9cm)PWd1.1 (0.7-1.1cm) LVDs3.3 (2.5-4.0cm)FS (%) 32.2 % LVEF (%)60.0 (>50%) M-Mode DIMENSIONS Aortic Root3.00 (2.2-3.7cm)Aortic Cusp Exc.1.80 (1.5-2.0cm) Aortic Valve AoV Peak Tzovkcds164.0cm/s Mitral Valve E/A ratio0.0 TDI E/Lateral E'0.0E/Medial E'0.0 Pulmonary Valve PV Peak Itnhwzdd23.5cm/sPV Peak Grad.2mmHg Tricuspid Valve TR Peak [id number] [id number] Peak Gr.45mmHg [id number] LEFT VENTRICLE The left ventricle is normal size. There is normal left ventricular wall thickness. The left ventricular function is normal. The left ventricular ejection fraction is within the normal range. There is normal LV segmental wall motion. RIGHT VENTRICLE The right ventricle is mildly dilated. ATRIA The left atrium is moderately dilated. The right atrium is moderately dilated. The interatrial septum is intact with no evidence for an atrial septal defect. AORTIC VALVE The aortic valve is mildly calcified. MITRAL VALVE The mitral valve is normal in structure. Mitral regurgitation is moderate. TRICUSPID VALVE The tricuspid valve is normal in structure. There is moderate tricuspid regurgitation. There is moderate-severe pulmonary hypertension. PULMONIC VALVE The pulmonic valve is not well visualized. There is mild to moderate pulmonic valvular regurgitation. GREAT VESSELS The aortic root is normal in size. PERICARDIAL EFFUSION There is no pericardial effusion. <Conclusion> The left ventricle is normal size. There is normal left ventricular wall thickness. The left ventricular function is normal. Mitral regurgitation is moderate. There is moderate tricuspid regurgitation. There is moderate-severe pulmonary hypertension. There is mild to moderate pulmonic valvular regurgitation.
[2017-02-17] MEDS: diltiaZEM 180 mg/24 Hours CD Cap PO SCH (09:35)
[2017-02-17] MEDS: cefTRIAXone 1 gm 1 GM/100 ML BAG IVPB SCH (09:36)
[2017-02-17] MEDS: MethylPREDNISolone 40 mg Vial IVP SCH ×2 (09:36→23:47)
[2017-02-17] MEDS: Tiotropium 18 mcg Cap For Inhalation IH SCH (09:36)
[2017-02-17] MEDS: Potassium Chloride 20 mEq ER Tab PO SCH ×2 (09:36→17:29)
--- NOTE | 2017-02-17 10:24 | CP.PCM.PN ---
<Orquidea Temple - Last Filed: 02/17/17 11:34> Subjective - Date & Time of Evaluation Date of Evaluation: 02/17/17 Time of Evaluation: 10:21 - Subjective Subjective: 71 year old female was seen at bedside, with attending Dr. Goode regarding right foot pain. Patient states that the pain to her right toes is better. Yesterday she was unable to tolerate anyone touching them, and today she states they aren't painful to touch. She also complains of painful elongated toenails and would like them trimmed. She denies any n/v/f/c/sob/cp. It should be noted that during the treatment her roommate specifically got up out of her bed, stood next to us, {even though we closed the curtain} and intently listened to our conversation with Maria Isabel. She than proceeded to ask many medical questions about Maria Isabel's condition and when I asked if she was a relative or related in any way- she stated "No". I did not answer any of her questions as per privacy laws and she than stated "There are some rude ass doctors here". I than suggested to her that she needs to worry about her own health care concerns and not her roommates. Objective - Vital Signs/Intake and Output Vital Signs (last 24 hours): Temp Pulse Resp BP Pulse Ox 97.8 F 63 20 130/71 100 02/17/17 08:21 02/17/17 08:21 02/17/17 08:21 02/17/17 09:35 02/17/17 08:21 Intake and Output: 02/17/17 02/17/17 06:59 18:59 Intake Total 0 Balance 0 - Medications Medications: Current Medications Albuterol/Ipratropium (Duoneb 3 Mg/0.5 Mg (3 Ml) Ud) 2.5 ml IH Q6 [facility] Stop: 02/25/17 00:01 Last Admin: 02/17/17 07:55 Dose: 2 ml Albuterol/Ipratropium (Duoneb 3 Mg/0.5 Mg (3 Ml) Ud) 2.5 ml IH Q2 PRN PRN Reason: SOB Last Admin: 02/16/17 04:24 Dose: 2.5 ml Budesonide (Pulmicort Respules) 1 mg IH BIDRESP [facility] Digoxin (Lanoxin) 0.25 mg PO 1400 [facility] Last Admin: 02/16/17 13:31 Dose: 0.25 mg Diltiazem HCl (Cardizem Cd) 180 mg PO DAILY [facility] Last Admin: 02/17/17 09:35 Dose: 180 mg Docusate Sodium (Colace) 100 mg PO BID [facility] Last Admin: 02/17/17 09:35 Dose: 100 mg Furosemide (Lasix) 40 mg IVP Q12 [facility] Last Admin: 02/17/17 09:35 Dose: 40 mg Guaifenesin (Robitussin) 100 mg PO Q4H PRN PRN Reason: Cough Ceftriaxone Sodium (Rocephin 1 Gram Ivpb) 1 gm in 100 mls @ 100 mls/hr IVPB DAILY [facility] PRN Reason: Protocol Last Admin: 02/17/17 09:36 Dose: 100 mls/hr Methylprednisolone (Solu-Medrol) 40 mg IVP Q12 [facility] Last Admin: 02/17/17 09:36 Dose: 40 mg Pantoprazole Sodium (Protonix Ec Tab) 40 mg PO 0600,1800 [facility] Last Admin: 02/17/17 06:00 Dose: 40 mg Potassium Chloride (K-Dur 20 Meq Er Tab) 20 meq PO BID [facility] Stop: 02/18/17 23:59 Last Admin: 02/17/17 09:36 Dose: 20 meq Tiotropium [place] (Spiriva) 18 mcg IH DAILY [facility] Last Admin: 02/17/17 09:36 Dose: 18 mcg Warfarin Sodium (Coumadin) 4 mg PO 1800 [facility] PRN Reason: Protocol Stop: 02/18/17 18:01 Last Admin: 02/16/17 17:39 Dose: 4 mg - Labs Labs: 02/17/17 07:30 02/17/17 07:30 PT 20.1 Seconds (9.9-11.8) H 02/17/17 07:30 INR 1.86 (0.93-1.08) H 02/17/17 07:30 APTT 45.8 Seconds (23.7-30.8) H 02/15/17 18:25 - Constitutional Appears: Non-toxic, No Acute Distress - Extremities Exam Additional comments: lower extremity focused exam: Vasc: Pedal pulses non-palpable due to edema. Skin temperature warm to cool from proximal to distal b/l. +4 pitting edema noted to feet b/l Ortho: No tenderness on palpation to right digits 3,4,5. Mild tenderness on palpation to nails 1-5 b/l. Derm: No open lesions, no malodor, no drainage noted. Nails 1-5 b/l are thickened, elongated, discolored b/l. - Neurological Exam Neurological Exam: Alert, Awake, Oriented x3 - Psychiatric Exam Psychiatric exam: Normal Affect, Normal Mood Assessment and Plan - Assessment and Plan (Free Text) Assessment: 71 year old female with pain to right foot- resolving, and painful elongated toenails 1-5 b/l Plan: patient examined and evaluated with attending, Dr. Goode labs, chart, vitals reviewed nails 1-5 b/l were excisonally debrided in thickness and in length without incident thank you for allow us to participate in the care for your patient please re-consult as necessary <Dionicio Goode - Last Filed: 02/17/17 12:17> Objective - Vital Signs/Intake and Output Vital Signs (last 24 hours): Temp Pulse Resp BP Pulse Ox 97.8 F 63 20 130/71 100 02/17/17 08:21 02/17/17 08:21 02/17/17 08:21 02/17/17 09:35 02/17/17 08:21 Intake and Output: 02/17/17 02/17/17 06:59 18:59 Intake Total 0 Balance 0 - Medications Medications: Current Medications Albuterol/Ipratropium (Duoneb 3 Mg/0.5 Mg (3 Ml) Ud) 2.5 ml IH Q6 [facility] Stop: 02/25/17 00:01 Last Admin: 02/17/17 07:55 Dose: 2 ml Albuterol/Ipratropium (Duoneb 3 Mg/0.5 Mg (3 Ml) Ud) 2.5 ml IH Q2 PRN PRN Reason: SOB Last Admin: 02/16/17 04:24 Dose: 2.5 ml Budesonide (Pulmicort Respules) 1 mg IH BIDRESP [facility] Digoxin (Lanoxin) 0.25 mg PO 1400 [facility] Last Admin: 02/16/17 13:31 Dose: 0.25 mg Diltiazem HCl (Cardizem Cd) 180 mg PO DAILY [facility] Last Admin: 02/17/17 09:35 Dose: 180 mg Docusate Sodium (Colace) 100 mg PO BID [facility] Last Admin: 02/17/17 09:35 Dose: 100 mg Furosemide (Lasix) 40 mg IVP Q12 [facility] Last Admin: 02/17/17 09:35 Dose: 40 mg Guaifenesin (Robitussin) 100 mg PO Q4H PRN PRN Reason: Cough Ceftriaxone Sodium (Rocephin 1 Gram Ivpb) 1 gm in 100 mls @ 100 mls/hr IVPB DAILY [facility] PRN Reason: Protocol Last Admin: 02/17/17 09:36 Dose: 100 mls/hr Methylprednisolone (Solu-Medrol) 40 mg IVP Q12 [facility] Last Admin: 02/17/17 09:36 Dose: 40 mg Pantoprazole Sodium (Protonix Ec Tab) 40 mg PO 0600,1800 [facility] Last Admin: 02/17/17 06:00 Dose: 40 mg Potassium Chloride (K-Dur 20 Meq Er Tab) 20 meq PO BID [facility] Stop: 02/18/17 23:59 Last Admin: 02/17/17 09:36 Dose: 20 meq Tiotropium [place] (Spiriva) 18 mcg IH DAILY [facility] Last Admin: 02/17/17 09:36 Dose: 18 mcg Warfarin Sodium (Coumadin) 4 mg PO 1800 [facility] PRN Reason: Protocol Stop: 02/18/17 18:01 Last Admin: 02/16/17 17:39 Dose: 4 mg - Labs Labs: 02/17/17 07:30 02/17/17 07:30 PT 20.1 Seconds (9.9-11.8) H 02/17/17 07:30 INR 1.86 (0.93-1.08) H 02/17/17 07:30 APTT 45.8 Seconds (23.7-30.8) H 02/15/17 18:25 Attending/Attestation - Attestation I have personally seen and examined this patient.: Yes I have fully participated in the care of the patient.: Yes I have reviewed all pertinent clinical information, including history, physical exam and plan: Yes
--- NOTE | 2017-02-17 11:12 | CP.PCM.PN ---
Subjective - Date & Time of Evaluation Date of Evaluation: 02/17/17 Time of Evaluation: 11:00 - Subjective Subjective: Pt has very poor veins,needs iv access Objective - Vital Signs/Intake and Output Vital Signs (last 24 hours): Temp Pulse Resp BP Pulse Ox 97.8 F 63 20 130/71 100 02/17/17 08:21 02/17/17 08:21 02/17/17 08:21 02/17/17 09:35 02/17/17 08:21 Intake and Output: 02/17/17 02/17/17 06:59 18:59 Intake Total 0 Balance 0 - Medications Medications: Current Medications Albuterol/Ipratropium (Duoneb 3 Mg/0.5 Mg (3 Ml) Ud) 2.5 ml IH Q6 [facility] Stop: 02/25/17 00:01 Last Admin: 02/17/17 07:55 Dose: 2 ml Albuterol/Ipratropium (Duoneb 3 Mg/0.5 Mg (3 Ml) Ud) 2.5 ml IH Q2 PRN PRN Reason: SOB Last Admin: 02/16/17 04:24 Dose: 2.5 ml Budesonide (Pulmicort Respules) 1 mg IH BIDRESP [facility] Digoxin (Lanoxin) 0.25 mg PO 1400 [facility] Last Admin: 02/16/17 13:31 Dose: 0.25 mg Diltiazem HCl (Cardizem Cd) 180 mg PO DAILY [facility] Last Admin: 02/17/17 09:35 Dose: 180 mg Docusate Sodium (Colace) 100 mg PO BID [facility] Last Admin: 02/17/17 09:35 Dose: 100 mg Furosemide (Lasix) 40 mg IVP Q12 [facility] Last Admin: 02/17/17 09:35 Dose: 40 mg Guaifenesin (Robitussin) 100 mg PO Q4H PRN PRN Reason: Cough Ceftriaxone Sodium (Rocephin 1 Gram Ivpb) 1 gm in 100 mls @ 100 mls/hr IVPB DAILY [facility] PRN Reason: Protocol Last Admin: 02/17/17 09:36 Dose: 100 mls/hr Methylprednisolone (Solu-Medrol) 40 mg IVP Q12 [facility] Last Admin: 02/17/17 09:36 Dose: 40 mg Pantoprazole Sodium (Protonix Ec Tab) 40 mg PO 0600,1800 [facility] Last Admin: 02/17/17 06:00 Dose: 40 mg Potassium Chloride (K-Dur 20 Meq Er Tab) 20 meq PO BID [facility] Stop: 02/18/17 23:59 Last Admin: 02/17/17 09:36 Dose: 20 meq Tiotropium [place] (Spiriva) 18 mcg IH DAILY [facility] Last Admin: 02/17/17 09:36 Dose: 18 mcg Warfarin Sodium (Coumadin) 4 mg PO 1800 [facility] PRN Reason: Protocol Stop: 02/18/17 18:01 Last Admin: 02/16/17 17:39 Dose: 4 mg - Labs Labs: 02/17/17 07:30 02/17/17 07:30 PT 20.1 Seconds (9.9-11.8) H 02/17/17 07:30 INR 1.86 (0.93-1.08) H 02/17/17 07:30 APTT 45.8 Seconds (23.7-30.8) H 02/15/17 18:25 - Constitutional Appears: No Acute Distress Assessment and Plan - Assessment and Plan (Free Text) Assessment: Poor venous access Plan: Multiple attempts to insert hep lock were not successful due to very poor veins. Pt does not want a line in her neck. Suggest Picc line.
[2017-02-17] MEDS: Digoxin 250 mcg (0.25 mg) Tab PO SCH (13:17)
[2017-02-18] MEDS: Albuterol-Ipratrop 3 mg / 0.5 (3 ml) UD IH SCH ×4 (01:17→20:47)
[2017-02-18] MEDS: Pantoprazole 40 mg EC Tab PO SCH ×2 (06:41→18:06)
[2017-02-18 07:36] LABS: HEMOGLOBIN 12.3 gm/dL (12.0-16.0); MEAN CELL VOLUME 85.8 fL (80.0-105.0); MEAN CORPUSCULAR HEMOGLOBIN 27.3 pg (25.0-35.0); MEAN CORPUSCULAR HGB CONC 31.9 g/dl (31.0-37.0); MEAN PLATELET VOLUME 10.7 fl (7.0-11.0); RBC 4.5 10^6/uL (3.5-6.1); RED CELL DISTRIBUTION WIDTH 15.5 % (11.5-14.5); WHITE BLOOD COUNT 7.9 10^3/ul (4.5-11.0)
[2017-02-18 07:54] LABS: ALBUMIN 3.5 g/dL (3.0-4.8); ALT/SGPT 20 U/L (7-56); AST/SGOT 14 U/L (15-39); BLOOD UREA NITROGEN 16 mg/dL (7-21); CALCIUM 8.4 mg/dL (8.4-10.5); GFR AFRICAN-AMERICAN > 60; GFR NON-AFRICAN AMERICAN > 60
[2017-02-18] MEDS: Budesonide 0.5 mg/2 ml Inhal Susp UD IH SCH ×2 (07:57→20:47)
[2017-02-18 08:07] LABS: PROTHROMBIN TIME 21.6 Seconds (9.9-11.8)
[2017-02-18] MEDS: Tiotropium 18 mcg Cap For Inhalation IH SCH (09:29)
[2017-02-18] MEDS: Potassium Chloride 20 mEq ER Tab PO SCH ×2 (09:30→18:06)
[2017-02-18] MEDS: MethylPREDNISolone 40 mg Vial IVP SCH ×2 (09:31→21:11)
[2017-02-18] MEDS: diltiaZEM 180 mg/24 Hours CD Cap PO SCH (09:31)
[2017-02-18] MEDS: cefTRIAXone 1 gm 1 GM/100 ML BAG IVPB SCH (09:31)
--- NOTE | 2017-02-18 10:34 | CP.PCM.PN ---
Subjective - Date & Time of Evaluation Date of Evaluation: 02/18/17 Time of Evaluation: 09:00 - Subjective Subjective: seen in her room w/ present now in a big girk bed better she is upset w / po and wants another pod 2nd opinion feeling a bit better w/ iv lasix diuresing well also still w/ oozing from the thigh ulcers eats well no cp no sob no abd pain lots of questions Objective - Vital Signs/Intake and Output Vital Signs (last 24 hours): Temp Pulse Resp BP Pulse Ox 97.6 F 79 20 102/60 100 02/18/17 06:00 02/18/17 09:31 02/18/17 06:00 02/18/17 09:31 02/18/17 06:00 Intake and Output: 02/18/17 02/18/17 06:59 18:59 Intake Total 470 Balance 470 - Medications Medications: Current Medications Albuterol/Ipratropium (Duoneb 3 Mg/0.5 Mg (3 Ml) Ud) 2.5 ml IH Q6 [facility] Stop: 02/25/17 00:01 Last Admin: 02/18/17 07:44 Dose: 2.5 ml Albuterol/Ipratropium (Duoneb 3 Mg/0.5 Mg (3 Ml) Ud) 2.5 ml IH Q2 PRN PRN Reason: SOB Last Admin: 02/16/17 04:24 Dose: 2.5 ml Budesonide (Pulmicort Respules) 1 mg IH BIDRESP [facility] Last Admin: 02/18/17 07:57 Dose: 1 mg Digoxin (Lanoxin) 0.25 mg PO 1400 [facility] Last Admin: 02/17/17 13:17 Dose: 0.25 mg Diltiazem HCl (Cardizem Cd) 180 mg PO DAILY [facility] Last Admin: 02/18/17 09:31 Dose: 180 mg Docusate Sodium (Colace) 100 mg PO BID [facility] Last Admin: 02/18/17 09:30 Dose: 100 mg Furosemide (Lasix) 40 mg IVP Q12 [facility] Last Admin: 02/18/17 09:30 Dose: 40 mg Guaifenesin (Robitussin) 100 mg PO Q4H PRN PRN Reason: Cough Last Admin: 02/18/17 02:39 Dose: 100 mg Ceftriaxone Sodium (Rocephin 1 Gram Ivpb) 1 gm in 100 mls @ 100 mls/hr IVPB DAILY [facility] PRN Reason: Protocol Last Admin: 02/18/17 09:31 Dose: 100 mls/hr Methylprednisolone (Solu-Medrol) 40 mg IVP Q12 [facility] Last Admin: 02/18/17 09:31 Dose: 40 mg Pantoprazole Sodium (Protonix Ec Tab) 40 mg PO 0600,1800 [facility] Last Admin: 02/18/17 06:41 Dose: 40 mg Potassium Chloride (K-Dur 20 Meq Er Tab) 20 meq PO BID [facility] Stop: 02/18/17 23:59 Last Admin: 02/18/17 09:30 Dose: 20 meq Tiotropium [place] (Spiriva) 18 mcg IH DAILY [facility] Last Admin: 02/18/17 09:29 Dose: 18 mcg Warfarin Sodium (Coumadin) 4 mg PO 1800 [facility] PRN Reason: Protocol Stop: 02/18/17 18:01 Last Admin: 02/17/17 17:29 Dose: 4 mg - Labs Labs: 02/18/17 07:00 02/18/17 07:00 PT 21.6 Seconds (9.9-11.8) H 02/18/17 07:00 INR 2.00 (0.93-1.08) H 02/18/17 07:00 APTT 45.8 Seconds (23.7-30.8) H 02/15/17 18:25 - Constitutional Appears: No Acute Distress - Head Exam Head Exam: NORMAL INSPECTION - Eye Exam Eye Exam: EOMI - ENT Exam ENT Exam: Mucous Membranes Moist - Respiratory Exam Respiratory Exam: Decreased Breath Sounds, Clear to Ausculation Bilateral - Cardiovascular Exam Cardiovascular Exam: REGULAR RHYTHM - GI/Abdominal Exam GI & Abdominal Exam: Soft Additional comments: m obese - Extremities Exam Additional comments: severe edema payal le - Neurological Exam Neurological Exam: Alert, Awake, CN II-XII Intact, Oriented x3 - Psychiatric Exam Psychiatric exam: Normal Affect, Normal Mood - Skin Skin Exam: Warm Additional comments: payal thigh ulcers oozing Assessment and Plan - Assessment and Plan (Free Text) Assessment: copd chf payal thigh ulcers w/ ozzing mobese afib dm Plan: went over labs meds orders discussed pod issue encouragement w/ meds cont diuresing a lot more fluids to go cont w/ tmt and care
[2017-02-18] MEDS: Digoxin 250 mcg (0.25 mg) Tab PO SCH (14:30)
[2017-02-19] MEDS: Albuterol-Ipratrop 3 mg / 0.5 (3 ml) UD IH SCH ×5 (02:23→20:26)
[2017-02-19] MEDS: Pantoprazole 40 mg EC Tab PO SCH ×2 (05:20→17:03)
[2017-02-19] MEDS: Budesonide 0.5 mg/2 ml Inhal Susp UD IH SCH ×3 (08:06→20:26)
--- NOTE | 2017-02-19 09:02 | CP.PCM.PN ---
Subjective - Date & Time of Evaluation Date of Evaluation: 02/19/17 Time of Evaluation: 08:00 - Subjective Subjective: seen in bed w/ nurse and present slept well diuresing well both sides still oozing but half as much and still increase in urination eats well no pain starting to feel better still w/ some wheeze Objective - Vital Signs/Intake and Output Vital Signs (last 24 hours): Temp Pulse Resp BP Pulse Ox 97.8 F 77 20 109/64 100 02/19/17 06:00 02/19/17 06:00 02/19/17 06:00 02/19/17 06:00 02/19/17 06:00 Intake and Output: 02/19/17 02/19/17 06:59 18:59 Intake Total 540 Output Total 0 Balance 540 - Medications Medications: Current Medications Albuterol/Ipratropium (Duoneb 3 Mg/0.5 Mg (3 Ml) Ud) 2.5 ml IH Q6 [facility] Stop: 02/25/17 00:01 Last Admin: 02/19/17 02:23 Dose: Not Given Albuterol/Ipratropium (Duoneb 3 Mg/0.5 Mg (3 Ml) Ud) 2.5 ml IH Q2 PRN PRN Reason: SOB Last Admin: 02/16/17 04:24 Dose: 2.5 ml Budesonide (Pulmicort Respules) 1 mg IH BIDRESP [facility] Last Admin: 02/18/17 20:47 Dose: 1 mg Digoxin (Lanoxin) 0.25 mg PO 1400 [facility] Last Admin: 02/18/17 14:30 Dose: 0.25 mg Diltiazem HCl (Cardizem Cd) 180 mg PO DAILY [facility] Last Admin: 02/18/17 09:31 Dose: 180 mg Docusate Sodium (Colace) 100 mg PO BID [facility] Last Admin: 02/18/17 18:06 Dose: 100 mg Furosemide (Lasix) 40 mg IVP Q12 [facility] Last Admin: 02/18/17 21:12 Dose: 40 mg Guaifenesin (Robitussin) 100 mg PO Q4H PRN PRN Reason: Cough Last Admin: 02/18/17 02:39 Dose: 100 mg Ceftriaxone Sodium (Rocephin 1 Gram Ivpb) 1 gm in 100 mls @ 100 mls/hr IVPB DAILY [facility] PRN Reason: Protocol Last Admin: 02/18/17 09:31 Dose: 100 mls/hr Methylprednisolone (Solu-Medrol) 40 mg IVP Q12 [facility] Last Admin: 02/18/17 21:11 Dose: 40 mg Pantoprazole Sodium (Protonix Ec Tab) 40 mg PO 0600,1800 [facility] Last Admin: 02/19/17 05:20 Dose: 40 mg Silver Sulfadiazine (Silvadene 1% 20 Gm) 1 ea TOP DAILY [facility] Tiotropium [place] (Spiriva) 18 mcg IH DAILY [facility] Last Admin: 02/18/17 09:29 Dose: 18 mcg - Labs Labs: 02/18/17 07:00 02/18/17 07:00 PT 21.6 Seconds (9.9-11.8) H 02/18/17 07:00 INR 2.00 (0.93-1.08) H 02/18/17 07:00 APTT 45.8 Seconds (23.7-30.8) H 02/15/17 18:25 - Constitutional Appears: No Acute Distress - Head Exam Head Exam: ATRAUMATIC, NORMAL INSPECTION, NORMOCEPHALIC - Eye Exam Eye Exam: Normal appearance - ENT Exam ENT Exam: Mucous Membranes Moist - Neck Exam Neck Exam: Normal Inspection - Respiratory Exam Respiratory Exam: Decreased Breath Sounds, Wheezes, NORMAL BREATHING PATTERN - Cardiovascular Exam Cardiovascular Exam: REGULAR RHYTHM - GI/Abdominal Exam GI & Abdominal Exam: Soft, Normal Bowel Sounds - Back Exam Back Exam: NORMAL INSPECTION - Neurological Exam Neurological Exam: Alert, CN II-XII Intact, Oriented x3 - Psychiatric Exam Psychiatric exam: Normal Affect, Normal Mood - Skin Additional comments: payal thigh w/ less blisters and oozing about half as much still needs to be bandaged Assessment and Plan - Assessment and Plan (Free Text) Assessment: payal thigh ulcers w/ ozzing chf w/ edema diuresing still copd w/ wheezing today keep same solumedrol today afib copd asthma dm Plan: went over meds labs orders cont w/ iv lasix hold on solumedrol w/ wheezing today checking labs as per consults cont w/ tmt and care discussed w/ and lilo answered questions
[2017-02-19] MEDS: cefTRIAXone 1 gm 1 GM/100 ML BAG IVPB SCH (09:23)
[2017-02-19] MEDS: diltiaZEM 180 mg/24 Hours CD Cap PO SCH (09:24)
[2017-02-19] MEDS: Tiotropium 18 mcg Cap For Inhalation IH SCH (09:24)
[2017-02-19] MEDS: MethylPREDNISolone 40 mg Vial IVP SCH ×2 (09:26→21:53)
[2017-02-19 09:59] LABS: HEMOGLOBIN 12.7 gm/dL (12.0-16.0); MEAN CELL VOLUME 86.1 fL (80.0-105.0); MEAN CORPUSCULAR HEMOGLOBIN 28.4 pg (25.0-35.0); RBC 4.47 10^6/uL (3.5-6.1); RED CELL DISTRIBUTION WIDTH 15.5 % (11.5-14.5); WHITE BLOOD COUNT 9.7 10^3/ul (4.5-11.0)
[2017-02-19] MEDS ORDERED: Silver Sulfadiazine 1% Cream (20 gm) TOP SCH (10:00)
[2017-02-19 10:09] LABS: INR 2.56 (0.93-1.08); PROTHROMBIN TIME 27.7 Seconds (9.9-11.8)
[2017-02-19 10:38] LABS: ALBUMIN 3.6 g/dL (3.0-4.8); ALT/SGPT 21 U/L (7-56); AST/SGOT 14 U/L (15-39); BLOOD UREA NITROGEN 19 mg/dL (7-21); CALCIUM 8.7 mg/dL (8.4-10.5); GFR AFRICAN-AMERICAN > 60; GFR NON-AFRICAN AMERICAN > 60
[2017-02-19] MEDS: Insulin Reg-LOW-Coverage SC SCH ×3 (12:03→17:41)
[2017-02-19] MEDS: Digoxin 250 mcg (0.25 mg) Tab PO SCH (13:47)
[2017-02-19] MEDS: Insulin Reg-MEDIUM-Coverage SC SCH ×2 (17:24→21:54)
[2017-02-19] MEDS ORDERED: Insulin Reg-MEDIUM-Coverage SC SCH (22:00)
[2017-02-20] MEDS: Albuterol-Ipratrop 3 mg / 0.5 (3 ml) UD IH SCH ×4 (01:10→20:15)
[2017-02-20] MEDS: Pantoprazole 40 mg EC Tab PO SCH ×2 (05:30→17:57)
[2017-02-20] MEDS ORDERED: SILVER SULFADIAZINE 1% TP SCH (07:30)
--- NOTE | 2017-02-20 07:33 | CP.PCM.PN ---
Subjective - Date & Time of Evaluation Date of Evaluation: 02/20/17 Time of Evaluation: 07:00 - Subjective Subjective: seen in bed had low temps last nightb 96 on a ena hugger this am hi bs>400 could be starting sepsis skin w/ wounds and oozing from thighs a bit less and diuresing well Objective - Vital Signs/Intake and Output Vital Signs (last 24 hours): Temp Pulse Resp BP Pulse Ox 97.5 F L 91 H 20 133/78 100 02/19/17 17:20 02/19/17 17:20 02/19/17 17:20 02/19/17 21:46 02/19/17 17:20 Intake and Output: 02/20/17 02/20/17 06:59 18:59 Intake Total 420 Output Total 0 Balance 420 - Medications Medications: Current Medications Albuterol/Ipratropium (Duoneb 3 Mg/0.5 Mg (3 Ml) Ud) 2.5 ml IH Q6 [facility] Stop: 02/25/17 00:01 Last Admin: 02/20/17 01:10 Dose: 2.5 ml Albuterol/Ipratropium (Duoneb 3 Mg/0.5 Mg (3 Ml) Ud) 2.5 ml IH Q2 PRN PRN Reason: SOB Last Admin: 02/16/17 04:24 Dose: 2.5 ml Budesonide (Pulmicort Respules) 1 mg IH BIDRESP [facility] Last Admin: 02/19/17 20:26 Dose: Not Given Digoxin (Lanoxin) 0.25 mg PO 1400 [facility] Last Admin: 02/19/17 13:47 Dose: 0.25 mg Diltiazem HCl (Cardizem Cd) 180 mg PO DAILY [facility] Last Admin: 02/19/17 09:24 Dose: 180 mg Docusate Sodium (Colace) 100 mg PO BID [facility] Last Admin: 02/19/17 17:03 Dose: 100 mg Furosemide (Lasix) 40 mg IVP Q12 [facility] Last Admin: 02/19/17 21:46 Dose: 40 mg Guaifenesin (Robitussin) 100 mg PO Q4H PRN PRN Reason: Cough Last Admin: 02/18/17 02:39 Dose: 100 mg Ceftriaxone Sodium (Rocephin 1 Gram Ivpb) 1 gm in 100 mls @ 100 mls/hr IVPB DAILY [facility] PRN Reason: Protocol Last Admin: 02/19/17 09:23 Dose: 100 mls/hr Insulin Human Regular (Humulin R Med) 0 units SC ACHS [facility] PRN Reason: Protocol Last Admin: 02/19/17 21:54 Dose: 2 units Insulin Human Regular (Humulin R High) 0 units SC ACHS [facility] PRN Reason: Protocol Metformin HCl (Glucophage) 500 mg PO BID [facility] Last Admin: 02/19/17 17:03 Dose: 500 mg Methylprednisolone (Solu-Medrol) 40 mg IVP Q12 [facility] Last Admin: 02/19/17 21:53 Dose: Not Given Pantoprazole Sodium (Protonix Ec Tab) 40 mg PO 0600,1800 [facility] Last Admin: 02/20/17 05:30 Dose: 40 mg Silver Sulfadiazine (Silvadene 1% 20 Gm) 1 ea TOP DAILY [facility] Last Admin: 02/19/17 10:54 Dose: 1 each Tiotropium [place] (Spiriva) 18 mcg IH DAILY [facility] Last Admin: 02/19/17 09:24 Dose: 18 mcg - Labs Labs: 02/19/17 09:50 02/19/17 09:50 PT 27.7 Seconds (9.9-11.8) H 02/19/17 09:50 INR 2.56 (0.93-1.08) H 02/19/17 09:50 APTT 45.8 Seconds (23.7-30.8) H 02/15/17 18:25 - Constitutional Appears: Toxic - Head Exam Head Exam: ATRAUMATIC, NORMAL INSPECTION, NORMOCEPHALIC - Eye Exam Eye Exam: Normal appearance - ENT Exam ENT Exam: Mucous Membranes Moist - Neck Exam Neck Exam: Normal Inspection - Respiratory Exam Respiratory Exam: Decreased Breath Sounds, Clear to Ausculation Bilateral, NORMAL BREATHING PATTERN - Cardiovascular Exam Cardiovascular Exam: REGULAR RHYTHM - GI/Abdominal Exam GI & Abdominal Exam: Soft, Diminished Bowel Sounds - Extremities Exam Additional comments: +10/4 pe payal legs - Back Exam Back Exam: NORMAL INSPECTION - Neurological Exam Neurological Exam: Alert, CN II-XII Intact, Oriented x3 - Psychiatric Exam Psychiatric exam: Normal Affect, Normal Mood - Skin Skin Exam: Warm Additional comments: multiple areas of skin tears ulcers wounds on payal thighs Assessment and Plan - Assessment and Plan (Free Text) Assessment: hi bs low temps ++sepsis?? chf edema payal thigh ulcers wounds afib copd dm Plan: consult id for iv abs surgery for new and chronic ulcers skin tears ena beckman checking culture labs decrease solumedrol tcu eval
[2017-02-20] MEDS: Budesonide 0.5 mg/2 ml Inhal Susp UD IH SCH ×2 (07:47→20:15)
[2017-02-20] MEDS: Insulin Reg-HIGH-Coverage SC SCH ×4 (08:33→22:18)
[2017-02-20] MEDS: SILVER SULFADIAZINE 1% TP SCH ×3 (08:34→23:12)
[2017-02-20] MEDS: Insulin Reg-MEDIUM-Coverage SC SCH (09:45)
[2017-02-20 09:55] LABS: HEMOGLOBIN 12.4 gm/dL (12.0-16.0); MEAN CELL VOLUME 87.1 fL (80.0-105.0); MEAN CORPUSCULAR HEMOGLOBIN 27.6 pg (25.0-35.0); MEAN CORPUSCULAR HGB CONC 31.6 g/dl (31.0-37.0); MEAN PLATELET VOLUME 10.9 fl (7.0-11.0); RBC 4.5 10^6/uL (3.5-6.1); RED CELL DISTRIBUTION WIDTH 15.6 % (11.5-14.5); WHITE BLOOD COUNT 12.2 10^3/ul (4.5-11.0)
[2017-02-20 09:56] LABS: ALBUMIN 3.5 g/dL (3.0-4.8); ALT/SGPT 25 U/L (7-56); AST/SGOT 13 U/L (15-39); BLOOD UREA NITROGEN 20 mg/dL (7-21); CALCIUM 8.7 mg/dL (8.4-10.5); GFR AFRICAN-AMERICAN > 60; GFR NON-AFRICAN AMERICAN > 60
[2017-02-20 09:57] LABS: INR 3.06 (0.93-1.08)
[2017-02-20] MEDS ORDERED: MethylPREDNISolone 40 mg Vial IVP SCH (10:00)
[2017-02-20] MEDS: MethylPREDNISolone 40 mg Vial IVP SCH ×2 (10:18→22:17)
[2017-02-20] MEDS: Tiotropium 18 mcg Cap For Inhalation IH SCH (10:18)
[2017-02-20] MEDS: diltiaZEM 180 mg/24 Hours CD Cap PO SCH (10:21)
[2017-02-20 13:03] LABS: URINE BILIRUBIN NEGATIVE (NEGATIVE); URINE BLOOD NEGATIVE (NEGATIVE); URINE GLUCOSE (UA) 100 mg/dL (NEGATIVE); URINE LEUKOCYTE ESTERASE NEGATIVE Leu/uL (NEGATIVE); URINE NITRATE NEGATIVE (NEGATIVE); URINE PROTEIN NEGATIVE mg/dL (<30 mg/dL); URINE UROBILINOGEN 0.2 E.U./dL (<1 E.U./dL)
[2017-02-20 13:19] LABS: URINE APPEARANCE CLEAR (CLEAR); URINE COLOR YELLOW (YELLOW)
[2017-02-20] MEDS: Cefepime 1gm in NS 100ml 1 GM/100 ML BAG IVPB SCH ×2 (14:39→22:17)
[2017-02-20] MEDS: Digoxin 250 mcg (0.25 mg) Tab PO SCH (14:40)
--- NOTE | 2017-02-20 18:44 | CP.PCM.CON ---
History of Present Illness - History of Present Illness History of Present Illness: 71 year old female with PMH of COPD, CHF, morbid obesity with BMI 70, history of right leg surgery and breast surgery, chronic ulcers on the lower extremities was initially admitted for COPD exacerbation. She had been doing well, but she was noted to be somewhat lethargic this morning with some hypothermia. She has no fever, no nausea or vomiting, no SOB currently, no headache or dizziness, no chest pain, no dysuria, no diarrhea. Infectious Diseases consult is requested to further evaluate and manage. Review of Systems - Review of Systems All systems: reviewed and no additional remarkable complaints except (as per HPI ) Past Patient History - Infectious Disease Hx of Infectious Diseases: None - Tetanus Immunizations Tetanus Immunization: Unknown - Past Social History Smoking Status: Never Smoked - CARDIAC Hx Cardiac Disorders: Yes (lymphedema) Hx Angina: Yes Hx Cardia Arrhythmia: Yes Hx Congestive Heart Failure: Yes Hx Peripheral Edema: Yes Hx Peripheral Vascular Disease: Yes - PULMONARY Hx Respiratory Disorders: Yes (using 02 at home) Hx Asthma: Yes Hx Chronic Obstructive Pulmonary Disease (COPD): Yes Hx Emphysema: Yes Hx Pneumonia: Yes - NEUROLOGICAL Hx Neurological Disorder: No - HEENT Hx HEENT Problems: Yes (glasses) - RENAL Hx Chronic Kidney Disease: No - ENDOCRINE/METABOLIC Hx Endocrine Disorders: Yes Hx Diabetes Mellitus Type 2: Yes - HEMATOLOGICAL/ONCOLOGICAL Hx Blood Disorders: Yes (SEPTICEMIA) - INTEGUMENTARY Hx Dermatological Problems: Yes Other/Comment: pt is obese, right outer thigh skin openings healed, redness, hard brown dry skin, dimpling to left thigh, pt c/o that she, sometimes has drainage from left thigh. both lower legs and feet dry skin. redness and discoloration to right abd fold healed, pt unable to turn in bed to assess skin on back, ble +4 pitting edema redness - MUSCULOSKELETAL/RHEUMATOLOGICAL Hx Falls: No - GASTROINTESTINAL Hx Gastrointestinal Disorders: Yes (benign mass removed from abd 30 yrs ago) - GENITOURINARY/GYNECOLOGICAL Hx Genitourinary Disorders: Yes Hx Incontinence: Yes (urine and stool) Hx Urinary Tract Infection: Yes - PSYCHIATRIC Hx Psychophysiologic Disorder: No Hx Substance Use: No - SURGICAL HISTORY Hx Cardiac Catheterization: Yes Other/Comment: cardiac cath 2006, picc line, sx to right leg for an infection - ANESTHESIA Hx Anesthesia: Yes Meds Allergies/Adverse Reactions: Allergies Allergy/AdvReac Type Severity Reaction Status Date / Time No Known Allergies Allergy Verified 02/17/17 22:58 - Medications Medications: Current Medications Albuterol/Ipratropium (Duoneb 3 Mg/0.5 Mg (3 Ml) Ud) 2.5 ml IH Q6 [facility] Stop: 02/25/17 00:01 Last Admin: 02/20/17 07:47 Dose: 2.5 ml Albuterol/Ipratropium (Duoneb 3 Mg/0.5 Mg (3 Ml) Ud) 2.5 ml IH Q2 PRN PRN Reason: SOB Last Admin: 02/16/17 04:24 Dose: 2.5 ml Budesonide (Pulmicort Respules) 1 mg IH BIDRESP [facility] Last Admin: 02/20/17 07:47 Dose: 1 mg Digoxin (Lanoxin) 0.25 mg PO 1400 [facility] Last Admin: 02/19/17 13:47 Dose: 0.25 mg Diltiazem HCl (Cardizem Cd) 180 mg PO DAILY [facility] Last Admin: 02/19/17 09:24 Dose: 180 mg Docusate Sodium (Colace) 100 mg PO BID [facility] Last Admin: 02/19/17 17:03 Dose: 100 mg Furosemide (Lasix) 40 mg IVP Q12 [facility] Last Admin: 02/19/17 21:46 Dose: 40 mg Guaifenesin (Robitussin) 100 mg PO Q4H PRN PRN Reason: Cough Last Admin: 02/18/17 02:39 Dose: 100 mg Cefepime HCl (Maxipime 1gm) 1 gm in 100 mls @ 100 mls/hr IVPB Q8 [facility] PRN Reason: Protocol Insulin Human Regular (Humulin R High) 0 units SC ACHS [facility] PRN Reason: Protocol Metformin HCl (Glucophage) 500 mg PO BID [facility] Last Admin: 02/19/17 17:03 Dose: 500 mg Methylprednisolone (Solu-Medrol) 30 mg IVP Q12 [facility] Pantoprazole Sodium (Protonix Ec Tab) 40 mg PO 0600,1800 [facility] Last Admin: 02/20/17 05:30 Dose: 40 mg Silver Sulfadiazine (Silver Sulfadiazine) 0 gm TP Q8H [facility] Tiotropium [place] (Spiriva) 18 mcg IH DAILY [facility] Last Admin: 02/19/17 09:24 Dose: 18 mcg Physical Exam - Constitutional Appears: Non-toxic, No Acute Distress - Head Exam Head Exam: NORMAL INSPECTION - Neck Exam Neck exam: Negative for: Meningismus - Respiratory Exam Respiratory Exam: Decreased Breath Sounds - Cardiovascular Exam Cardiovascular Exam: +S1, +S2 - GI/Abdominal Exam GI & Abdominal Exam: Soft. absent: Tenderness Results - Vital Signs Recent Vital Signs: Last Vital Signs Temp 97.9 F 02/20/17 08:13 Pulse 78 02/20/17 08:13 Resp 20 02/20/17 08:13 BP 123/56 L 02/20/17 08:13 Pulse Ox 99 02/20/17 08:13 - Labs Result Diagrams: 02/20/17 09:20 02/20/17 09:20 Labs: Laboratory Results - last 24 hr 02/19/17 02/19/17 02/19/17 09:50 09:50 09:50 WBC 9.7 D RBC 4.47 Hgb 12.7 Hct 38.5 MCV 86.1 MCH 28.4 MCHC 33.0 RDW 15.5 H Plt Count 288 MPV 11.0 PT 27.7 H INR 2.56 H Sodium 138 Potassium 4.6 Chloride 98 Carbon Dioxide 30 Anion Gap 15 BUN 19 Creatinine 0.6 Est GFR ( Amer) > 60 Est GFR (Non-Af Amer) > 60 POC Glucose (mg/dL) Random Glucose 358 H* D Calcium 8.7 Total Bilirubin 0.5 AST 14 L ALT 21 Alkaline Phosphatase 54 Total Protein 7.3 Albumin 3.6 Globulin 3.7 Albumin/Globulin Ratio 1.0 L 02/19/17 02/19/17 16:48 21:40 WBC RBC Hgb Hct MCV MCH MCHC RDW Plt Count MPV PT INR Sodium Potassium Chloride Carbon Dioxide Anion Gap BUN Creatinine Est GFR ( Amer) Est GFR (Non-Af Amer) POC Glucose (mg/dL) 410 H* 340 H Random Glucose Calcium Total Bilirubin AST ALT Alkaline Phosphatase Total Protein Albumin Globulin Albumin/Globulin Ratio Assessment & Plan - Assessment and Plan (Free Text) Plan: Assessment Hypothermia, R/O sepsis history of urinary tract infection COPD CHF morbid obesity with BMI 70 history of right leg surgery and breast surgery chronic ulcers on the lower extremities Plan gave a dose of IV Vancomycin and started Cefepime pending blood, urine cx, PCT, CXR will monitor clinically
[2017-02-21] MEDS: Albuterol-Ipratrop 3 mg / 0.5 (3 ml) UD IH SCH ×4 (02:05→20:29)
[2017-02-21] MEDS: Pantoprazole 40 mg EC Tab PO SCH ×2 (06:00→18:27)
[2017-02-21] MEDS: Cefepime 1gm in NS 100ml 1 GM/100 ML BAG IVPB SCH ×3 (06:00→21:23)
[2017-02-21] MEDS: Budesonide 0.5 mg/2 ml Inhal Susp UD IH SCH (07:40)
[2017-02-21 08:20] LABS: HEMOGLOBIN 12.4 gm/dL (12.0-16.0); MEAN CELL VOLUME 86.1 fL (80.0-105.0); MEAN CORPUSCULAR HEMOGLOBIN 27.3 pg (25.0-35.0); MEAN CORPUSCULAR HGB CONC 31.7 g/dl (31.0-37.0); MEAN PLATELET VOLUME 10.7 fl (7.0-11.0); RBC 4.54 10^6/uL (3.5-6.1); RED CELL DISTRIBUTION WIDTH 15.6 % (11.5-14.5); WHITE BLOOD COUNT 14.4 10^3/ul (4.5-11.0)
--- NOTE | 2017-02-21 08:25 | CP.PCM.PN ---
Subjective - Date & Time of Evaluation Date of Evaluation: 02/21/17 Time of Evaluation: 07:00 - Subjective Subjective: seen in bed slept fair seen w/ still w/ oozing payal thigh ulcersand low temp on the ena hugger on iv abs now by id Objective - Vital Signs/Intake and Output Vital Signs (last 24 hours): Temp Pulse Resp BP Pulse Ox 97.8 F 90 20 107/60 95 02/20/17 22:00 02/20/17 22:00 02/20/17 22:00 02/20/17 22:17 02/20/17 22:00 Intake and Output: 02/21/17 02/21/17 06:59 18:59 Intake Total 420 240 Output Total 0 Balance 420 240 - Medications Medications: Current Medications Albuterol/Ipratropium (Duoneb 3 Mg/0.5 Mg (3 Ml) Ud) 2.5 ml IH Q6 [facility] Stop: 02/25/17 00:01 Last Admin: 02/21/17 07:41 Dose: 2 ml Albuterol/Ipratropium (Duoneb 3 Mg/0.5 Mg (3 Ml) Ud) 2.5 ml IH Q2 PRN PRN Reason: SOB Last Admin: 02/16/17 04:24 Dose: 2.5 ml Budesonide (Pulmicort Respules) 1 mg IH BIDRESP [facility] Last Admin: 02/21/17 07:40 Dose: 1 mg Cyclobenzaprine HCl (Flexeril) 10 mg PO DAILY [facility] Last Admin: 02/20/17 17:56 Dose: 10 mg Digoxin (Lanoxin) 0.25 mg PO 1400 [facility] Last Admin: 02/20/17 14:40 Dose: 0.25 mg Diltiazem HCl (Cardizem Cd) 180 mg PO DAILY [facility] Last Admin: 02/20/17 10:21 Dose: 180 mg Docusate Sodium (Colace) 100 mg PO BID [facility] Last Admin: 02/20/17 17:56 Dose: 100 mg Furosemide (Lasix) 40 mg IVP Q12 [facility] Last Admin: 02/20/17 22:17 Dose: 40 mg Guaifenesin (Robitussin) 100 mg PO Q4H PRN PRN Reason: Cough Last Admin: 02/18/17 02:39 Dose: 100 mg Cefepime HCl (Maxipime 1gm) 1 gm in 100 mls @ 100 mls/hr IVPB Q8 [facility] PRN Reason: Protocol Last Admin: 02/21/17 06:00 Dose: Not Given Insulin Human Regular (Humulin R High) 0 units SC ACHS [facility] PRN Reason: Protocol Last Admin: 02/20/17 22:18 Dose: Not Given Metformin HCl (Glucophage) 1,000 mg PO BID [facility] Last Admin: 02/20/17 17:57 Dose: 1,000 mg Methylprednisolone (Solu-Medrol) 20 mg IVP Q12 [facility] Last Admin: 02/20/17 22:17 Dose: 20 mg Pantoprazole Sodium (Protonix Ec Tab) 40 mg PO 0600,1800 [facility] Last Admin: 02/21/17 06:00 Dose: 40 mg Silver Sulfadiazine (Silver Sulfadiazine) 0 gm TP Q8H [facility] Last Admin: 02/20/17 23:12 Dose: 25 gm Tiotropium [place] (Spiriva) 18 mcg IH DAILY [facility] Last Admin: 02/20/17 10:18 Dose: 18 mcg - Labs Labs: 02/20/17 09:20 02/20/17 09:20 PT 33.0 Seconds (9.9-11.8) H* 02/20/17 09:20 INR 3.06 (0.93-1.08) H 02/20/17 09:20 APTT 45.8 Seconds (23.7-30.8) H 02/15/17 18:25 - Constitutional Appears: No Acute Distress - Head Exam Head Exam: ATRAUMATIC, NORMAL INSPECTION, NORMOCEPHALIC - ENT Exam ENT Exam: Mucous Membranes Moist - Respiratory Exam Respiratory Exam: Decreased Breath Sounds, Clear to Ausculation Bilateral, NORMAL BREATHING PATTERN - Cardiovascular Exam Cardiovascular Exam: REGULAR RHYTHM - GI/Abdominal Exam GI & Abdominal Exam: Soft, Normal Bowel Sounds - Extremities Exam Extremities Exam: Pedal Edema - Neurological Exam Neurological Exam: Alert, CN II-XII Intact, Oriented x3 - Psychiatric Exam Psychiatric exam: Normal Affect, Normal Mood - Skin Skin Exam: Warm Assessment and Plan - Assessment and Plan (Free Text) Assessment: copd payal thigh ulcers w/ oozing wounds afib mobese dm hypothermia infection Plan: as per id w/ iv abs tcu eval for continues tmt iv solumedrol answered questions checking labs tests went over w/ lilo and
[2017-02-21 08:37] LABS: ALBUMIN 3.4 g/dL (3.0-4.8); ALT/SGPT 25 U/L (7-56); AST/SGOT 18 U/L (15-39); BLOOD UREA NITROGEN 22 mg/dL (7-21); CALCIUM 8.6 mg/dL (8.4-10.5); GFR AFRICAN-AMERICAN > 60; GFR NON-AFRICAN AMERICAN > 60
[2017-02-21] MEDS: Tiotropium 18 mcg Cap For Inhalation IH SCH (09:17)
[2017-02-21] MEDS: diltiaZEM 180 mg/24 Hours CD Cap PO SCH (09:17)
[2017-02-21] MEDS: Insulin Reg-HIGH-Coverage SC SCH ×4 (09:18→21:45)
[2017-02-21] MEDS: MethylPREDNISolone 40 mg Vial IVP SCH ×2 (09:19→21:18)
[2017-02-21] MEDS: SILVER SULFADIAZINE 1% TP SCH ×3 (10:37→23:30)
[2017-02-21] MEDS: Digoxin 250 mcg (0.25 mg) Tab PO SCH (14:47)
--- NOTE | 2017-02-21 18:42 | CP.PCM.PN ---
Subjective - Date & Time of Evaluation Date of Evaluation: 02/21/17 Time of Evaluation: 12:05 - Subjective Subjective: Comfortable in bed, not in distress, afebrile, not in distress. Objective - Vital Signs/Intake and Output Vital Signs (last 24 hours): Temp Pulse Resp BP Pulse Ox 97.8 F 90 20 107/60 95 02/20/17 22:00 02/20/17 22:00 02/20/17 22:00 02/20/17 22:17 02/20/17 22:00 Intake and Output: 02/21/17 02/21/17 06:59 18:59 Intake Total 420 240 Output Total 0 Balance 420 240 - Medications Medications: Current Medications Albuterol/Ipratropium (Duoneb 3 Mg/0.5 Mg (3 Ml) Ud) 2.5 ml IH Q6 [facility] Stop: 02/25/17 00:01 Last Admin: 02/21/17 07:41 Dose: 2 ml Albuterol/Ipratropium (Duoneb 3 Mg/0.5 Mg (3 Ml) Ud) 2.5 ml IH Q2 PRN PRN Reason: SOB Last Admin: 02/16/17 04:24 Dose: 2.5 ml Budesonide (Pulmicort Respules) 1 mg IH BIDRESP [facility] Last Admin: 02/21/17 07:40 Dose: 1 mg Cyclobenzaprine HCl (Flexeril) 10 mg PO DAILY [facility] Last Admin: 02/20/17 17:56 Dose: 10 mg Digoxin (Lanoxin) 0.25 mg PO 1400 [facility] Last Admin: 02/20/17 14:40 Dose: 0.25 mg Diltiazem HCl (Cardizem Cd) 180 mg PO DAILY [facility] Last Admin: 02/20/17 10:21 Dose: 180 mg Docusate Sodium (Colace) 100 mg PO BID [facility] Last Admin: 02/20/17 17:56 Dose: 100 mg Furosemide (Lasix) 40 mg IVP Q12 [facility] Last Admin: 02/20/17 22:17 Dose: 40 mg Guaifenesin (Robitussin) 100 mg PO Q4H PRN PRN Reason: Cough Last Admin: 02/18/17 02:39 Dose: 100 mg Cefepime HCl (Maxipime 1gm) 1 gm in 100 mls @ 100 mls/hr IVPB Q8 [facility] PRN Reason: Protocol Last Admin: 02/21/17 06:00 Dose: Not Given Insulin Human Regular (Humulin R High) 0 units SC ACHS [facility] PRN Reason: Protocol Last Admin: 02/20/17 22:18 Dose: Not Given Metformin HCl (Glucophage) 1,000 mg PO BID [facility] Last Admin: 02/20/17 17:57 Dose: 1,000 mg Methylprednisolone (Solu-Medrol) 20 mg IVP Q12 [facility] Last Admin: 02/20/17 22:17 Dose: 20 mg Pantoprazole Sodium (Protonix Ec Tab) 40 mg PO 0600,1800 [facility] Last Admin: 02/21/17 06:00 Dose: 40 mg Silver Sulfadiazine (Silver Sulfadiazine) 0 gm TP Q8H [facility] Last Admin: 02/20/17 23:12 Dose: 25 gm Tiotropium [place] (Spiriva) 18 mcg IH DAILY [facility] Last Admin: 02/20/17 10:18 Dose: 18 mcg - Labs Labs: 02/21/17 07:00 02/20/17 09:20 PT 33.0 Seconds (9.9-11.8) H* 02/20/17 09:20 INR 3.06 (0.93-1.08) H 02/20/17 09:20 APTT 45.8 Seconds (23.7-30.8) H 02/15/17 18:25 - Constitutional Appears: Non-toxic, No Acute Distress - Head Exam Head Exam: NORMAL INSPECTION - ENT Exam ENT Exam: Mucous Membranes Moist - Neck Exam Neck Exam: absent: Lymphadenopathy, Meningismus - Respiratory Exam Respiratory Exam: Decreased Breath Sounds - Cardiovascular Exam Cardiovascular Exam: +S1, +S2 - GI/Abdominal Exam GI & Abdominal Exam: Soft. absent: Tenderness Assessment and Plan - Assessment and Plan (Free Text) Plan: Assessment Hypothermia, R/O sepsis from right thigh wound growing gram negative bacilli history of urinary tract infection COPD CHF morbid obesity with BMI 70 history of right leg surgery and breast surgery chronic ulcers on the lower extremities Plan continue Cefepime day 2 pending final blood, urine cx, identification and sensitivities of the gram negative bacilli in the wound; PCT is only 0.27, CXR does not show infiltrates will continue to monitor clinically
[2017-02-22] MEDS: Pantoprazole 40 mg EC Tab PO SCH ×2 (05:13→17:25)
[2017-02-22] MEDS: Cefepime 1gm in NS 100ml 1 GM/100 ML BAG IVPB SCH (05:14)
--- NOTE | 2017-02-22 07:14 | CP.PCM.PN ---
Subjective - Date & Time of Evaluation Date of Evaluation: 02/22/17 Time of Evaluation: 07:00 - Subjective Subjective: seen in bed present not feeling to well decrease in payal thigh ozzing spiranolactone added to the lasix iv bid on iv abs by id for infection in wounds Objective - Vital Signs/Intake and Output Vital Signs (last 24 hours): Temp Pulse Resp BP Pulse Ox 97.4 F L 88 18 100/61 95 02/21/17 16:00 02/21/17 16:00 02/21/17 16:00 02/21/17 21:18 02/21/17 16:00 Intake and Output: 02/22/17 02/22/17 06:59 18:59 Intake Total 1320 Output Total 0 Balance 1320 - Medications Medications: Current Medications Albuterol/Ipratropium (Duoneb 3 Mg/0.5 Mg (3 Ml) Ud) 2.5 ml IH Q6 [facility] Stop: 02/25/17 00:01 Last Admin: 02/21/17 20:29 Dose: Not Given Albuterol/Ipratropium (Duoneb 3 Mg/0.5 Mg (3 Ml) Ud) 2.5 ml IH Q2 PRN PRN Reason: SOB Last Admin: 02/16/17 04:24 Dose: 2.5 ml Budesonide (Pulmicort Respules) 1 mg IH BIDRESP [facility] Last Admin: 02/21/17 07:40 Dose: 1 mg Cyclobenzaprine HCl (Flexeril) 10 mg PO DAILY [facility] Last Admin: 02/21/17 09:17 Dose: 10 mg Digoxin (Lanoxin) 0.25 mg PO 1400 [facility] Last Admin: 02/21/17 14:47 Dose: 0.25 mg Diltiazem HCl (Cardizem Cd) 180 mg PO DAILY [facility] Last Admin: 02/21/17 09:17 Dose: 180 mg Docusate Sodium (Colace) 100 mg PO BID [facility] Last Admin: 02/21/17 18:27 Dose: 100 mg Furosemide (Lasix) 40 mg IVP Q12 [facility] Last Admin: 02/21/17 21:18 Dose: 40 mg Guaifenesin (Robitussin) 100 mg PO Q4H PRN PRN Reason: Cough Last Admin: 02/18/17 02:39 Dose: 100 mg Cefepime HCl (Maxipime 1gm) 1 gm in 100 mls @ 100 mls/hr IVPB Q8 [facility] PRN Reason: Protocol Last Admin: 02/22/17 05:14 Dose: 100 mls/hr Insulin Human Regular (Humulin R High) 0 units SC ACHS [facility] PRN Reason: Protocol Last Admin: 02/21/17 21:45 Dose: Not Given Metformin HCl (Glucophage) 1,000 mg PO BID [facility] Last Admin: 02/21/17 18:27 Dose: 1,000 mg Methylprednisolone (Solu-Medrol) 20 mg IVP Q12 [facility] Last Admin: 02/21/17 21:18 Dose: 20 mg Pantoprazole Sodium (Protonix Ec Tab) 40 mg PO 0600,1800 [facility] Last Admin: 02/22/17 05:13 Dose: 40 mg Silver Sulfadiazine (Silver Sulfadiazine) 0 gm TP Q8H [facility] Last Admin: 02/21/17 18:40 Dose: 1 gm Spironolactone (Aldactone) 25 mg PO BID [facility] Last Admin: 02/21/17 18:27 Dose: 25 mg Tiotropium [place] (Spiriva) 18 mcg IH DAILY [facility] Last Admin: 02/21/17 09:17 Dose: 18 mcg - Labs Labs: 02/21/17 07:00 02/21/17 07:00 PT 33.0 Seconds (9.9-11.8) H* 02/20/17 09:20 INR 3.06 (0.93-1.08) H 02/20/17 09:20 APTT 45.8 Seconds (23.7-30.8) H 02/15/17 18:25 - Constitutional Appears: In Acute Distress - Head Exam Head Exam: ATRAUMATIC, NORMAL INSPECTION, NORMOCEPHALIC - ENT Exam ENT Exam: Mucous Membranes Moist - Respiratory Exam Respiratory Exam: Clear to Ausculation Bilateral, NORMAL BREATHING PATTERN - Cardiovascular Exam Cardiovascular Exam: REGULAR RHYTHM - GI/Abdominal Exam GI & Abdominal Exam: Soft, Diminished Bowel Sounds - Extremities Exam Extremities Exam: Pedal Edema - Neurological Exam Neurological Exam: Alert, CN II-XII Intact, Oriented x3 - Psychiatric Exam Psychiatric exam: Normal Affect - Skin Additional comments: payal thigh wounds ulcer oozing Assessment and Plan - Assessment and Plan (Free Text) Assessment: payal thigh wounds ulcers oozing hima w/ edema afib mobese dm Plan: cont w/ aggressive diuresing w/ cardio tmt iv abs as per id discussed w/ lilo and at length went over meds labs checking labs
[2017-02-22 07:22] LABS: HEMOGLOBIN 12.3 gm/dL (12.0-16.0); MEAN CELL VOLUME 85.9 fL (80.0-105.0); MEAN CORPUSCULAR HEMOGLOBIN 27.6 pg (25.0-35.0); MEAN CORPUSCULAR HGB CONC 32.1 g/dl (31.0-37.0); MEAN PLATELET VOLUME 10.9 fl (7.0-11.0); RBC 4.46 10^6/uL (3.5-6.1); RED CELL DISTRIBUTION WIDTH 15.7 % (11.5-14.5); WHITE BLOOD COUNT 15.3 10^3/ul (4.5-11.0)
[2017-02-22 07:31] LABS: ALB/GLOB RATIO 1.1 (1.1-1.8); ALBUMIN 3.3 g/dL (3.0-4.8); ALT/SGPT 35 U/L (7-56); AST/SGOT 19 U/L (15-39); BLOOD UREA NITROGEN 26 mg/dL (7-21); CALCIUM 8.8 mg/dL (8.4-10.5); GFR AFRICAN-AMERICAN > 60; GFR NON-AFRICAN AMERICAN > 60
[2017-02-22] MEDS: Budesonide 0.5 mg/2 ml Inhal Susp UD IH SCH ×2 (07:53→19:35)
[2017-02-22] MEDS: Albuterol-Ipratrop 3 mg / 0.5 (3 ml) UD IH SCH ×2 (07:53→13:14)
[2017-02-22] MEDS: SILVER SULFADIAZINE 1% TP SCH ×3 (08:32→23:08)
[2017-02-22] MEDS: Insulin Reg-HIGH-Coverage SC SCH ×4 (08:43→23:12)
[2017-02-22] MEDS: Tiotropium 18 mcg Cap For Inhalation IH SCH (09:30)
[2017-02-22] MEDS: diltiaZEM 180 mg/24 Hours CD Cap PO SCH (09:31)
[2017-02-22] MEDS: MethylPREDNISolone 40 mg Vial IVP SCH (09:35)
--- NOTE | 2017-02-22 09:55 | CP.PCM.CON ---
<Nick More - Last Filed: 02/22/17 12:21> History of Present Illness - History of Present Illness History of Present Illness: Maria Isabel Bowden is a 71F w/ hx of morbid obesity, afib, COPD, Asthma, and CHF who presented to the [facility] with SOB. Pt was tx for COPD exacerbation versus CHF exacerbation and given lasix and breathing treatments. Pt is no longer SOB. Pt also has acute on chronic thigh wounds for which she was recieiving ceftriaxone and recently switched to cefepime yesterday by ID. Pt is also on coumadin for chronic a-fib, which was discontinued on 02/16/17. The reason for GI consult was for persistantly elevated INR despite stopping coumadin. Last INR was ~ on . Pt denies any hx of liver disease, juandice, sceral icterus, or abd pain. Pt states that she eats a well balance meals. Pt has not had any elevations in LFTs since admission. ROS: 12-point ROS was conducted by me and neg other than what was stated in the HPI PMHx: Morbid obesity, COPD, Asthma, CHF, PSHx: R leg surgery, L breast surgery Allergies: Methylprednisolone SocHx: Denies etoh; smoking; illicits FamHx: Non-contributory Endoscopy hx: Past Patient History - Infectious Disease Hx of Infectious Diseases: None - Tetanus Immunizations Tetanus Immunization: Unknown - Past Social History Smoking Status: Never Smoked - CARDIAC Hx Cardiac Disorders: Yes (lymphedema) Hx Angina: Yes Hx Cardia Arrhythmia: Yes Hx Congestive Heart Failure: Yes Hx Peripheral Edema: Yes Hx Peripheral Vascular Disease: Yes - PULMONARY Hx Respiratory Disorders: Yes (using 02 at home) Hx Asthma: Yes Hx Chronic Obstructive Pulmonary Disease (COPD): Yes Hx Emphysema: Yes Hx Pneumonia: Yes - NEUROLOGICAL Hx Neurological Disorder: No - HEENT Hx HEENT Problems: Yes (glasses) - RENAL Hx Chronic Kidney Disease: No - ENDOCRINE/METABOLIC Hx Endocrine Disorders: Yes Hx Diabetes Mellitus Type 2: Yes - HEMATOLOGICAL/ONCOLOGICAL Hx Blood Disorders: Yes (SEPTICEMIA) - INTEGUMENTARY Hx Dermatological Problems: Yes Other/Comment: pt is obese, right outer thigh skin openings healed, redness, hard brown dry skin, dimpling to left thigh, pt c/o that she, sometimes has drainage from left thigh. both lower legs and feet dry skin. redness and discoloration to right abd fold healed, pt unable to turn in bed to assess skin on back, ble +4 pitting edema redness - MUSCULOSKELETAL/RHEUMATOLOGICAL Hx Falls: No - GASTROINTESTINAL Hx Gastrointestinal Disorders: Yes (benign mass removed from abd 30 yrs ago) - GENITOURINARY/GYNECOLOGICAL Hx Genitourinary Disorders: Yes Hx Incontinence: Yes (urine and stool) Hx Urinary Tract Infection: Yes - PSYCHIATRIC Hx Psychophysiologic Disorder: No Hx Substance Use: No - SURGICAL HISTORY Hx Cardiac Catheterization: Yes Other/Comment: cardiac cath 2005, picc line, sx to right leg for an infection - ANESTHESIA Hx Anesthesia: Yes Meds Allergies/Adverse Reactions: Allergies Allergy/AdvReac Type Severity Reaction Status Date / Time No Known Allergies Allergy Verified 02/17/17 22:58 - Medications Medications: Current Medications Albuterol/Ipratropium (Duoneb 3 Mg/0.5 Mg (3 Ml) Ud) 2.5 ml IH Q6 [facility] Stop: 02/25/17 00:01 Last Admin: 02/22/17 07:53 Dose: Not Given Albuterol/Ipratropium (Duoneb 3 Mg/0.5 Mg (3 Ml) Ud) 2.5 ml IH Q2 PRN PRN Reason: SOB Last Admin: 02/16/17 04:24 Dose: 2.5 ml Budesonide (Pulmicort Respules) 1 mg IH BIDRESP [facility] Last Admin: 02/22/17 07:53 Dose: Not Given Cyclobenzaprine HCl (Flexeril) 10 mg PO DAILY [facility] Last Admin: 02/22/17 09:29 Dose: 10 mg Digoxin (Lanoxin) 0.25 mg PO 1400 [facility] Last Admin: 02/21/17 14:47 Dose: 0.25 mg Diltiazem HCl (Cardizem Cd) 180 mg PO DAILY [facility] Last Admin: 02/22/17 09:31 Dose: 180 mg Docusate Sodium (Colace) 100 mg PO BID [facility] Last Admin: 02/22/17 09:29 Dose: 100 mg Furosemide (Lasix) 40 mg IVP Q12 [facility] Last Admin: 02/22/17 09:28 Dose: 40 mg Guaifenesin (Robitussin) 100 mg PO Q4H PRN PRN Reason: Cough Last Admin: 02/18/17 02:39 Dose: 100 mg Cefepime HCl (Maxipime 1gm) 1 gm in 100 mls @ 100 mls/hr IVPB Q8 [facility] PRN Reason: Protocol Last Admin: 02/22/17 05:14 Dose: 100 mls/hr Insulin Human Regular (Humulin R High) 0 units SC ACHS [facility] PRN Reason: Protocol Last Admin: 02/22/17 08:43 Dose: 7 units Metformin HCl (Glucophage) 1,000 mg PO BID [facility] Last Admin: 02/22/17 09:29 Dose: 1,000 mg Methylprednisolone (Medrol) 16 mg PO BID [facility] Pantoprazole Sodium (Protonix Ec Tab) 40 mg PO 0600,1800 [facility] Last Admin: 02/22/17 05:13 Dose: 40 mg Silver Sulfadiazine (Silver Sulfadiazine) 0 gm TP Q8H [facility] Last Admin: 02/22/17 08:32 Dose: 25 gm Spironolactone (Aldactone) 25 mg PO BID [facility] Last Admin: 02/22/17 09:30 Dose: 25 mg Tiotropium [place] (Spiriva) 18 mcg IH DAILY [facility] Last Admin: 02/22/17 09:30 Dose: 18 mcg Physical Exam - Constitutional Appears: Non-toxic, No Acute Distress - Head Exam Head Exam: ATRAUMATIC, NORMOCEPHALIC - Eye Exam Eye Exam: EOMI, Normal appearance - ENT Exam ENT Exam: Mucous Membranes Moist, Normal Exam - Neck Exam Neck exam: Positive for: Normal Inspection - Respiratory Exam Respiratory Exam: Clear to Auscultation Bilateral, NORMAL BREATHING PATTERN - Cardiovascular Exam Cardiovascular Exam: absent: Tachycardia, JVD, Systolic Murmur Additional comments: irregular - GI/Abdominal Exam GI & Abdominal Exam: Soft. absent: Bruit, Diminished Bowel Sounds, Guarding, Organomegaly, Rebound, Tenderness - Neurological Exam Neurological exam: Alert, Oriented x3 - Psychiatric Exam Psychiatric exam: Normal Affect, Normal Mood - Skin Skin Exam: Dry, Intact, Normal Color, Warm Results - Vital Signs Recent Vital Signs: Last Vital Signs Temp 98.4 F 02/22/17 08:35 Pulse 96 H 02/22/17 09:31 Resp 20 02/22/17 08:35 BP 111/59 L 02/22/17 09:31 Pulse Ox 97 02/22/17 08:35 - Labs Result Diagrams: 02/22/17 07:00 02/22/17 07:00 Labs: Laboratory Results - last 24 hr 02/22/17 02/22/17 07:00 07:00 WBC 15.3 H RBC 4.46 Hgb 12.3 Hct 38.3 MCV 85.9 MCH 27.6 MCHC 32.1 RDW 15.7 H Plt Count 217 MPV 10.9 Sodium 136 Potassium 4.5 Chloride 95 Carbon Dioxide 33 Anion Gap 13 BUN 26 H Creatinine 0.7 Est GFR ( Amer) > 60 Est GFR (Non-Af Amer) > 60 Random Glucose 257 H Calcium 8.8 Total Bilirubin 0.4 AST 19 ALT 35 Alkaline Phosphatase 64 Total Protein 6.5 Albumin 3.3 Globulin 3.2 Albumin/Globulin Ratio 1.1 Assessment & Plan - Assessment and Plan (Free Text) Assessment: Maria Isabel Bowden is a 71F w/ hx of afib, morbid obesity who presented to [facility] for SOB. Pt was treated for prob CHF exacerbation versus COPD exacerbation. The reason for consult was persistently elevated INR. Pt was previously on Coumadin but discontinued on 02/16/17. Despite the fact, her INR continues to rise. Pt was concurrently started on ceftriaxone. It is likely that elevated INR is medication induced. Elevated INR -likely 2/2 ceftriaxone and cefepime vs diet -recommend repeat INR today -If INR continues to rise consider switching abx -unlikely pt has active liver disease, with intact albumin and no abn LFTs -consider hem/onc consult -may consider eval Vit K level, hypercoag w/u Morbid Obesity -consider nutritional consult D/W Dr. Flores <Rocio Flores MD - Last Filed: 02/22/17 12:31> Meds - Medications Medications: Current Medications Albuterol/Ipratropium (Duoneb 3 Mg/0.5 Mg (3 Ml) Ud) 2.5 ml IH Q6 [facility] Stop: 02/25/17 00:01 Last Admin: 02/22/17 07:53 Dose: Not Given Albuterol/Ipratropium (Duoneb 3 Mg/0.5 Mg (3 Ml) Ud) 2.5 ml IH Q2 PRN PRN Reason: SOB Last Admin: 02/16/17 04:24 Dose: 2.5 ml Budesonide (Pulmicort Respules) 1 mg IH BIDRESP [facility] Last Admin: 02/22/17 07:53 Dose: Not Given Cyclobenzaprine HCl (Flexeril) 10 mg PO DAILY [facility] Last Admin: 02/22/17 09:29 Dose: 10 mg Digoxin (Lanoxin) 0.25 mg PO 1400 [facility] Last Admin: 02/21/17 14:47 Dose: 0.25 mg Diltiazem HCl (Cardizem Cd) 180 mg PO DAILY [facility] Last Admin: 02/22/17 09:31 Dose: 180 mg Docusate Sodium (Colace) 100 mg PO BID [facility] Last Admin: 02/22/17 09:29 Dose: 100 mg Furosemide (Lasix) 40 mg IVP Q12 [facility] Last Admin: 02/22/17 09:28 Dose: 40 mg Guaifenesin (Robitussin) 100 mg PO Q4H PRN PRN Reason: Cough Last Admin: 02/18/17 02:39 Dose: 100 mg Meropenem 1g/NS 100mL IVPB (Meropenem 1g/Ns 100ml Ivpb) 1 gm in 100 mls @ 100 mls/hr IVPB Q8 [facility] PRN Reason: Protocol Stop: 03/01/17 14:01 Insulin Human Regular (Humulin R High) 0 units SC ACHS [facility] PRN Reason: Protocol Last Admin: 02/22/17 11:41 Dose: 10 units Metformin HCl (Glucophage) 1,000 mg PO BID [facility] Last Admin: 02/22/17 09:29 Dose: 1,000 mg Methylprednisolone (Medrol) 16 mg PO BID [facility] Last Admin: 02/22/17 10:13 Dose: 16 mg Pantoprazole Sodium (Protonix Ec Tab) 40 mg PO 0600,1800 [facility] Last Admin: 02/22/17 05:13 Dose: 40 mg Silver Sulfadiazine (Silver Sulfadiazine) 0 gm TP Q8H [facility] Last Admin: 02/22/17 08:32 Dose: 25 gm Spironolactone (Aldactone) 25 mg PO BID [facility] Last Admin: 02/22/17 09:30 Dose: 25 mg Tiotropium [place] (Spiriva) 18 mcg IH DAILY [facility] Last Admin: 02/22/17 09:30 Dose: 18 mcg Results - Vital Signs Recent Vital Signs: Last Vital Signs Temp 98.4 F 02/22/17 08:35 Pulse 96 H 02/22/17 09:31 Resp 20 02/22/17 08:35 BP 111/59 L 02/22/17 09:31 Pulse Ox 97 02/22/17 08:35 - Labs Result Diagrams: 02/22/17 07:00 02/22/17 07:00 Labs: Laboratory Results - last 24 hr 02/22/17 02/22/17 02/22/17 07:00 07:00 11:00 WBC 15.3 H RBC 4.46 Hgb 12.3 Hct 38.3 MCV 85.9 MCH 27.6 MCHC 32.1 RDW 15.7 H Plt Count 217 MPV 10.9 PT 25.6 H INR 2.37 H Sodium 136 Potassium 4.5 Chloride 95 Carbon Dioxide 33 Anion Gap 13 BUN 26 H Creatinine 0.7 Est GFR ( Amer) > 60 Est GFR (Non-Af Amer) > 60 Random Glucose 257 H Calcium 8.8 Total Bilirubin 0.4 AST 19 ALT 35 Alkaline Phosphatase 64 Total Protein 6.5 Albumin 3.3 Globulin 3.2 Albumin/Globulin Ratio 1.1 Attending/Attestation - Attestation I have personally seen and examined this patient.: Yes I have fully participated in the care of the patient.: Yes I have reviewed all pertinent clinical information: Yes Notes (Text): 02/22/17 12:28 Patient seen with GI fellow on rounds this am. This is a 71 yr old F w/ hx of afib, morbid obesity who presented to [facility] for SOB in setting of CHF exacerbation and COPD. GI consulted for elevated INR with no history of liver disease and normal LFT. She was on coumadin and started on cephalosporin which may have cross interacted with her P 450 system. Consider hematology consult for factor deficiencies. No biochemical evidence of liver disease. Consider vitamin K substitution. Will sign off now. Please reconsult prn.
[2017-02-22 11:34] LABS: INR 2.37 (0.93-1.08); PROTHROMBIN TIME 25.6 Seconds (9.9-11.8)
--- NOTE | 2017-02-22 12:22 | CP.PCM.PN ---
Subjective - Date & Time of Evaluation Date of Evaluation: 02/22/17 Time of Evaluation: 11:50 - Subjective Subjective: Comfortable in bed, not in distress, less pain in the legs. No fevers overnight. Objective - Vital Signs/Intake and Output Vital Signs (last 24 hours): Temp Pulse Resp BP Pulse Ox 97.4 F L 88 18 100/61 95 02/21/17 16:00 02/21/17 16:00 02/21/17 16:00 02/21/17 21:18 02/21/17 16:00 Intake and Output: 02/22/17 02/22/17 06:59 18:59 Intake Total 1320 Output Total 0 Balance 1320 - Medications Medications: Current Medications Albuterol/Ipratropium (Duoneb 3 Mg/0.5 Mg (3 Ml) Ud) 2.5 ml IH Q6 [facility] Stop: 02/25/17 00:01 Last Admin: 02/22/17 07:53 Dose: Not Given Albuterol/Ipratropium (Duoneb 3 Mg/0.5 Mg (3 Ml) Ud) 2.5 ml IH Q2 PRN PRN Reason: SOB Last Admin: 02/16/17 04:24 Dose: 2.5 ml Budesonide (Pulmicort Respules) 1 mg IH BIDRESP [facility] Last Admin: 02/22/17 07:53 Dose: Not Given Cyclobenzaprine HCl (Flexeril) 10 mg PO DAILY [facility] Last Admin: 02/21/17 09:17 Dose: 10 mg Digoxin (Lanoxin) 0.25 mg PO 1400 [facility] Last Admin: 02/21/17 14:47 Dose: 0.25 mg Diltiazem HCl (Cardizem Cd) 180 mg PO DAILY [facility] Last Admin: 02/21/17 09:17 Dose: 180 mg Docusate Sodium (Colace) 100 mg PO BID [facility] Last Admin: 02/21/17 18:27 Dose: 100 mg Furosemide (Lasix) 40 mg IVP Q12 [facility] Last Admin: 02/21/17 21:18 Dose: 40 mg Guaifenesin (Robitussin) 100 mg PO Q4H PRN PRN Reason: Cough Last Admin: 02/18/17 02:39 Dose: 100 mg Cefepime HCl (Maxipime 1gm) 1 gm in 100 mls @ 100 mls/hr IVPB Q8 [facility] PRN Reason: Protocol Last Admin: 02/22/17 05:14 Dose: 100 mls/hr Insulin Human Regular (Humulin R High) 0 units SC ACHS [facility] PRN Reason: Protocol Last Admin: 02/21/17 21:45 Dose: Not Given Metformin HCl (Glucophage) 1,000 mg PO BID [facility] Last Admin: 02/21/17 18:27 Dose: 1,000 mg Methylprednisolone (Solu-Medrol) 20 mg IVP Q12 [facility] Last Admin: 02/21/17 21:18 Dose: 20 mg Pantoprazole Sodium (Protonix Ec Tab) 40 mg PO 0600,1800 [facility] Last Admin: 02/22/17 05:13 Dose: 40 mg Silver Sulfadiazine (Silver Sulfadiazine) 0 gm TP Q8H [facility] Last Admin: 02/21/17 18:40 Dose: 1 gm Spironolactone (Aldactone) 25 mg PO BID [facility] Last Admin: 02/21/17 18:27 Dose: 25 mg Tiotropium [place] (Spiriva) 18 mcg IH DAILY [facility] Last Admin: 02/21/17 09:17 Dose: 18 mcg - Labs Labs: 02/22/17 07:00 02/22/17 07:00 PT 33.0 Seconds (9.9-11.8) H* 02/20/17 09:20 INR 3.06 (0.93-1.08) H 02/20/17 09:20 APTT 45.8 Seconds (23.7-30.8) H 02/15/17 18:25 - Constitutional Appears: Non-toxic, No Acute Distress - Head Exam Head Exam: NORMAL INSPECTION - ENT Exam ENT Exam: Mucous Membranes Moist - Neck Exam Neck Exam: absent: Lymphadenopathy, Meningismus - Respiratory Exam Respiratory Exam: Decreased Breath Sounds - Cardiovascular Exam Cardiovascular Exam: +S1, +S2 - GI/Abdominal Exam GI & Abdominal Exam: Soft. absent: Tenderness - Extremities Exam Additional comments: both legs with dressings in place Assessment and Plan - Assessment and Plan (Free Text) Plan: Assessment consider right thigh wound infection with ESBL-producing E. coli history of urinary tract infection COPD CHF morbid obesity with BMI 70 history of right leg surgery and breast surgery chronic ulcers on the lower extremities Plan will change antibiotics to Merrem and will monitor clinically
[2017-02-22] MEDS: Meropenem 1g/NS 100mL IVPB 1 GM/100 ML PIGGYBACK IVPB SCH ×2 (13:10→21:45)
[2017-02-22] MEDS: Digoxin 250 mcg (0.25 mg) Tab PO SCH (13:11)
--- NOTE | 2017-02-22 17:28 | CP.PCM.CON ---
History of Present Illness - History of Present Illness History of Present Illness: Patient is a 71 year old woman visiting for a cardiology consultation and presents with progressive shortness of breath. Patient's past medical history is notable for morbid obesity, common recurrent episodes of dyspnea. She suffers from CHF symptoms. Currently, patient is chest pain free. Extremities are chronically edematous. Past medical history includes chronic atrial fibrillation that is treated with Cardizem and Coumadin. Additionally, patient suffers from diabetes mellitus and hypertension. No social history of smoking. Review of Systems - Cardiovascular Cardiovascular: absent: Chest Pain - Respiratory Respiratory: Dyspnea - Musculoskeletal Additional comments: chronic BLE edema Past Patient History - Infectious Disease Hx of Infectious Diseases: None - Tetanus Immunizations Tetanus Immunization: Unknown - Past Social History Smoking Status: Never Smoked - CARDIAC Hx Cardiac Disorders: Yes (lymphedema) Hx Angina: Yes Hx Atrial Fibrillation: Yes (chronic ) Hx Cardia Arrhythmia: Yes Hx Congestive Heart Failure: Yes Hx Peripheral Edema: Yes Hx Peripheral Vascular Disease: Yes - PULMONARY Hx Respiratory Disorders: Yes (using 02 at home) Hx Asthma: Yes Hx Chronic Obstructive Pulmonary Disease (COPD): Yes Hx Emphysema: Yes Hx Pneumonia: Yes - NEUROLOGICAL Hx Neurological Disorder: No - HEENT Hx HEENT Problems: Yes (glasses) - RENAL Hx Chronic Kidney Disease: No - ENDOCRINE/METABOLIC Hx Endocrine Disorders: Yes Hx Diabetes Mellitus Type 2: Yes - HEMATOLOGICAL/ONCOLOGICAL Hx Blood Disorders: Yes (SEPTICEMIA) - INTEGUMENTARY Hx Dermatological Problems: Yes Other/Comment: pt is obese, right outer thigh skin openings healed, redness, hard brown dry skin, dimpling to left thigh, pt c/o that she, sometimes has drainage from left thigh. both lower legs and feet dry skin. redness and discoloration to right abd fold healed, pt unable to turn in bed to assess skin on back, ble +4 pitting edema redness - MUSCULOSKELETAL/RHEUMATOLOGICAL Hx Falls: No - GASTROINTESTINAL Hx Gastrointestinal Disorders: Yes (benign mass removed from abd 30 yrs ago) - GENITOURINARY/GYNECOLOGICAL Hx Genitourinary Disorders: Yes Hx Incontinence: Yes (urine and stool) Hx Urinary Tract Infection: Yes - PSYCHIATRIC Hx Psychophysiologic Disorder: No Hx Substance Use: No - SURGICAL HISTORY Hx Cardiac Catheterization: Yes Other/Comment: cardiac cath 2006, picc line, sx to right leg for an infection - ANESTHESIA Hx Anesthesia: Yes Meds Allergies/Adverse Reactions: Allergies Allergy/AdvReac Type Severity Reaction Status Date / Time No Known Allergies Allergy Verified 02/17/17 22:58 - Medications Medications: Current Medications Albuterol/Ipratropium (Duoneb 3 Mg/0.5 Mg (3 Ml) Ud) 2.5 ml IH Q6 [facility] Stop: 02/25/17 00:01 Last Admin: 02/22/17 13:14 Dose: 2.5 ml Albuterol/Ipratropium (Duoneb 3 Mg/0.5 Mg (3 Ml) Ud) 2.5 ml IH Q2 PRN PRN Reason: SOB Last Admin: 02/16/17 04:24 Dose: 2.5 ml Budesonide (Pulmicort Respules) 1 mg IH BIDRESP [facility] Last Admin: 02/22/17 07:53 Dose: Not Given Cyclobenzaprine HCl (Flexeril) 10 mg PO DAILY [facility] Last Admin: 02/22/17 09:29 Dose: 10 mg Digoxin (Lanoxin) 0.25 mg PO 1400 [facility] Last Admin: 02/22/17 13:11 Dose: 0.25 mg Diltiazem HCl (Cardizem Cd) 180 mg PO DAILY [facility] Last Admin: 02/22/17 09:31 Dose: 180 mg Docusate Sodium (Colace) 100 mg PO BID [facility] Last Admin: 02/22/17 09:29 Dose: 100 mg Furosemide (Lasix) 40 mg IVP Q12 [facility] Last Admin: 02/22/17 09:28 Dose: 40 mg Guaifenesin (Robitussin) 100 mg PO Q4H PRN PRN Reason: Cough Last Admin: 02/18/17 02:39 Dose: 100 mg Meropenem 1g/NS 100mL IVPB (Meropenem 1g/Ns 100ml Ivpb) 1 gm in 100 mls @ 100 mls/hr IVPB Q8 [facility] PRN Reason: Protocol Stop: 03/01/17 14:01 Last Admin: 02/22/17 13:10 Dose: 100 mls/hr Insulin Human Regular (Humulin R High) 0 units SC ACHS [facility] PRN Reason: Protocol Last Admin: 02/22/17 16:41 Dose: 4 units Metformin HCl (Glucophage) 1,000 mg PO BID [facility] Last Admin: 02/22/17 09:29 Dose: 1,000 mg Methylprednisolone (Medrol) 16 mg PO BID [facility] Last Admin: 02/22/17 10:13 Dose: 16 mg Pantoprazole Sodium (Protonix Ec Tab) 40 mg PO 0600,1800 [facility] Last Admin: 02/22/17 05:13 Dose: 40 mg Silver Sulfadiazine (Silver Sulfadiazine) 0 gm TP Q8H [facility] Last Admin: 02/22/17 08:32 Dose: 25 gm Spironolactone (Aldactone) 25 mg PO BID [facility] Last Admin: 02/22/17 09:30 Dose: 25 mg Tiotropium [place] (Spiriva) 18 mcg IH DAILY [facility] Last Admin: 02/22/17 09:30 Dose: 18 mcg Physical Exam - Constitutional Additional comments: Pt is restricted to the bed. - Neck Exam Additional comments: Negative JVD - Respiratory Exam Respiratory Exam: Clear to Auscultation Bilateral - Cardiovascular Exam Cardiovascular Exam: absent: REGULAR RHYTHM Additional comments: Irregularly irregular - Extremities Exam Extremities exam: Positive for: pedal edema (chronic with chronic changes noted ) Results - Vital Signs Recent Vital Signs: 02/16/17: Blood pressure: 116/58 Heart rate:60s, atrial fibrillation Last Vital Signs Temp 98.4 F 02/22/17 08:35 Pulse 96 H 02/22/17 09:31 Resp 20 02/22/17 08:35 BP 111/59 L 02/22/17 09:31 Pulse Ox 97 02/22/17 08:35 - Labs Result Diagrams: 02/22/17 07:00 02/22/17 07:00 Labs: 02/16/17: Labs: 1.Glucose:181 2.proBNP: 2680 3.Troponin: negative times 1 4.Hemoglobin:10.9 Laboratory Results - last 24 hr 02/22/17 02/22/17 02/22/17 07:00 07:00 11:00 WBC 15.3 H RBC 4.46 Hgb 12.3 Hct 38.3 MCV 85.9 MCH 27.6 MCHC 32.1 RDW 15.7 H Plt Count 217 MPV 10.9 PT 25.6 H INR 2.37 H Sodium 136 Potassium 4.5 Chloride 95 Carbon Dioxide 33 Anion Gap 13 BUN 26 H Creatinine 0.7 Est GFR ( Amer) > 60 Est GFR (Non-Af Amer) > 60 POC Glucose (mg/dL) Random Glucose 257 H Calcium 8.8 Total Bilirubin 0.4 AST 19 ALT 35 Alkaline Phosphatase 64 Total Protein 6.5 Albumin 3.3 Globulin 3.2 Albumin/Globulin Ratio 1.1 02/22/17 16:08 WBC RBC Hgb Hct MCV MCH MCHC RDW Plt Count MPV PT INR Sodium Potassium Chloride Carbon Dioxide Anion Gap BUN Creatinine Est GFR ( Amer) Est GFR (Non-Af Amer) POC Glucose (mg/dL) 234 H Random Glucose Calcium Total Bilirubin AST ALT Alkaline Phosphatase Total Protein Albumin Globulin Albumin/Globulin Ratio - EKG Data Interpretation: Other (EKG is atrial fibrillation with non-specific ST changes. ) Assessment & Plan (1) COPD exacerbation Status: Acute (2) Bronchitis Status: Acute Comment: questionable (3) Acute exacerbation of CHF (congestive heart failure) Status: Acute Comment: mild, with her lungs clear (4) Diabetes mellitus Status: Acute (5) Morbid obesity Status: Acute (6) Ejection fraction < 50% Status: Acute Comment: Recent echo reveals ejection fraction of 50% (7) Pulmonary hypertension Status: Acute Comment: mild to moderate - Assessment and Plan (Free Text) Plan: Given these findings, her dyspnea is more related to her pulmonary status. I agree with a day of BID Lasix. In addition, her atrial fibrillation is well controlled, her INR is 2.08. - Date & Time Date: 02/16/17
[2017-02-23] MEDS: Meropenem 1g/NS 100mL IVPB 1 GM/100 ML PIGGYBACK IVPB SCH ×3 (05:16→21:20)
[2017-02-23] MEDS: Pantoprazole 40 mg EC Tab PO SCH ×2 (05:16→17:07)
[2017-02-23 07:22] LABS: HEMOGLOBIN 12.9 gm/dL (12.0-16.0); MEAN CELL VOLUME 85.3 fL (80.0-105.0); MEAN CORPUSCULAR HEMOGLOBIN 27.8 pg (25.0-35.0); MEAN CORPUSCULAR HGB CONC 32.6 g/dl (31.0-37.0); MEAN PLATELET VOLUME 11.4 fl (7.0-11.0); RBC 4.64 10^6/uL (3.5-6.1); RED CELL DISTRIBUTION WIDTH 15.9 % (11.5-14.5); WHITE BLOOD COUNT 15.6 10^3/ul (4.5-11.0)
[2017-02-23 07:31] LABS: INR 2.08 (0.93-1.08); PROTHROMBIN TIME 22.5 Seconds (9.9-11.8)
[2017-02-23 07:42] LABS: ALB/GLOB RATIO 1.1 (1.1-1.8); ALBUMIN 3.4 g/dL (3.0-4.8); ALT/SGPT 38 U/L (7-56); AST/SGOT 19 U/L (15-39); BLOOD UREA NITROGEN 27 mg/dL (7-21); CALCIUM 8.7 mg/dL (8.4-10.5); GFR AFRICAN-AMERICAN > 60; GFR NON-AFRICAN AMERICAN > 60
[2017-02-23] MEDS: Albuterol-Ipratrop 3 mg / 0.5 (3 ml) UD IH SCH ×3 (07:59→19:46)
[2017-02-23] MEDS: Budesonide 0.5 mg/2 ml Inhal Susp UD IH SCH ×2 (08:00→19:46)
[2017-02-23] MEDS: Insulin Reg-HIGH-Coverage SC SCH ×4 (08:22→23:08)
[2017-02-23] MEDS: SILVER SULFADIAZINE 1% TP SCH ×2 (08:35→23:24)
[2017-02-23] MEDS: diltiaZEM 180 mg/24 Hours CD Cap PO SCH (10:49)
[2017-02-23] MEDS: Tiotropium 18 mcg Cap For Inhalation IH SCH (10:50)
--- NOTE | 2017-02-23 13:26 | CP.PCM.PN ---
Subjective - Date & Time of Evaluation Date of Evaluation: 02/21/17 Time of Evaluation: 10:59 - Subjective Subjective: Patient is seen today lying in a Hill-Rom bed for massive obesity. The is saying that this happened within the last year however, prior numbers say the weight has always been very high. Objective - Vital Signs/Intake and Output Vital Signs (last 24 hours): Temp Pulse Resp BP Pulse Ox 97.7 F 82 20 113/64 100 02/23/17 08:37 02/23/17 10:49 02/23/17 08:37 02/23/17 10:50 02/23/17 08:37 Intake and Output: 02/23/17 02/23/17 06:59 18:59 Intake Total 0 360 Balance 0 360 - Medications Medications: Current Medications Albuterol/Ipratropium (Duoneb 3 Mg/0.5 Mg (3 Ml) Ud) 2.5 ml IH Q6 [facility] Stop: 02/25/17 00:01 Last Admin: 02/23/17 07:59 Dose: Not Given Albuterol/Ipratropium (Duoneb 3 Mg/0.5 Mg (3 Ml) Ud) 2.5 ml IH Q2 PRN PRN Reason: SOB Last Admin: 02/16/17 04:24 Dose: 2.5 ml Budesonide (Pulmicort Respules) 1 mg IH BIDRESP [facility] Last Admin: 02/23/17 08:00 Dose: Not Given Cyclobenzaprine HCl (Flexeril) 10 mg PO DAILY [facility] Last Admin: 02/23/17 10:49 Dose: 10 mg Digoxin (Lanoxin) 0.25 mg PO 1400 [facility] Last Admin: 02/22/17 13:11 Dose: 0.25 mg Diltiazem HCl (Cardizem Cd) 180 mg PO DAILY [facility] Last Admin: 02/23/17 10:49 Dose: 180 mg Docusate Sodium (Colace) 100 mg PO BID [facility] Last Admin: 02/23/17 10:49 Dose: 100 mg Furosemide (Lasix) 40 mg IVP Q12 [facility] Last Admin: 02/23/17 10:50 Dose: 40 mg Guaifenesin (Robitussin) 100 mg PO Q4H PRN PRN Reason: Cough Last Admin: 02/18/17 02:39 Dose: 100 mg Meropenem 1g/NS 100mL IVPB (Meropenem 1g/Ns 100ml Ivpb) 1 gm in 100 mls @ 100 mls/hr IVPB Q8 [facility] PRN Reason: Protocol Stop: 03/01/17 14:01 Last Admin: 02/23/17 05:16 Dose: 100 mls/hr Insulin Human Regular (Humulin R High) 0 units SC ACHS [facility] PRN Reason: Protocol Last Admin: 02/23/17 08:22 Dose: 4 units Metformin HCl (Glucophage) 1,000 mg PO BID [facility] Last Admin: 02/23/17 10:50 Dose: 1,000 mg Methylprednisolone (Medrol) 16 mg PO BID [facility] Last Admin: 02/23/17 10:49 Dose: 16 mg Pantoprazole Sodium (Protonix Ec Tab) 40 mg PO 0600,1800 [facility] Last Admin: 02/23/17 05:16 Dose: 40 mg Silver Sulfadiazine (Silver Sulfadiazine) 0 gm TP Q8H [facility] Last Admin: 02/23/17 08:35 Dose: 1 gm Spironolactone (Aldactone) 25 mg PO BID [facility] Last Admin: 02/23/17 10:50 Dose: 25 mg Tiotropium [place] (Spiriva) 18 mcg IH DAILY [facility] Last Admin: 02/23/17 10:50 Dose: 18 mcg - Labs Labs: 02/23/17 07:00 02/23/17 07:00 PT 22.5 Seconds (9.9-11.8) H 02/23/17 07:00 INR 2.08 (0.93-1.08) H 02/23/17 07:00 APTT 45.8 Seconds (23.7-30.8) H 02/15/17 18:25 - Constitutional Appears: Other (lying in bed) - GI/Abdominal Exam Additional comments: The saddle bags at each side of the abdomen are huge, massive, and need one or two people to hold them up for examination. There is elephantiasis with multiple areas of excoriation. Massive obesity. Assessment and Plan (1) Morbid obesity Status: Chronic - Assessment and Plan (Free Text) Plan: This should be treated with the Hill-Rom bed support, pressure support and Silvadene for now. I don't really have any answers for this and a consultation to a plastic surgeon might be appropriate.
[2017-02-23] MEDS: Digoxin 250 mcg (0.25 mg) Tab PO SCH (13:55)
[2017-02-24] MEDS: Albuterol-Ipratrop 3 mg / 0.5 (3 ml) UD IH SCH ×4 (02:33→20:30)
[2017-02-24] MEDS: Pantoprazole 40 mg EC Tab PO SCH ×2 (06:01→17:13)
[2017-02-24] MEDS: Meropenem 1g/NS 100mL IVPB 1 GM/100 ML PIGGYBACK IVPB SCH ×3 (06:01→23:52)
[2017-02-24 08:01] LABS: HEMOGLOBIN 13.1 gm/dL (12.0-16.0); MEAN CELL VOLUME 85.6 fL (80.0-105.0); MEAN CORPUSCULAR HEMOGLOBIN 27.7 pg (25.0-35.0); MEAN CORPUSCULAR HGB CONC 32.3 g/dl (31.0-37.0); MEAN PLATELET VOLUME 11.3 fl (7.0-11.0); RBC 4.73 10^6/uL (3.5-6.1); RED CELL DISTRIBUTION WIDTH 15.8 % (11.5-14.5)
[2017-02-24 08:11] LABS: ALBUMIN 3.4 g/dL (3.0-4.8); ALT/SGPT 42 U/L (7-56); AST/SGOT 20 U/L (15-39); BLOOD UREA NITROGEN 27 mg/dL (7-21); CALCIUM 8.7 mg/dL (8.4-10.5); GFR AFRICAN-AMERICAN > 60; GFR NON-AFRICAN AMERICAN > 60
[2017-02-24] MEDS: Budesonide 0.5 mg/2 ml Inhal Susp UD IH SCH ×2 (08:18→20:30)
[2017-02-24] MEDS: Insulin Reg-HIGH-Coverage SC SCH ×4 (08:44→23:44)
--- NOTE | 2017-02-24 09:08 | PN ---
DATE: 02/23/2017 SUBJECTIVE: The patient is in bed and was seen earlier today in room 368, bed 2. No fevers, no chills,no nausea. PHYSICAL EXAMINATION: VITAL SIGNS: Temperature is 98, blood pressure is 113/70, respiratory rate 18. HEENT: Unremarkable. NECK: Supple. LUNGS: Decreased breath sounds. HEART: Normal S1 and S2. ABDOMEN: Soft. LABORATORY EXAMINATION: Reveals a white count of 15,600, hemoglobin of 12. Chemistry reveals a BUN of 27, creatinine of 0.7. Procalcitonin 0.27. Urinalysis is noted and microbiology reveals thigh culture is E. coli, the blood cultures are no growth at 3 days and E. coli in the thigh is ESBL. REVIEW OF ORDERS: Reveals the patient to be on meropenem. ASSESSMENT AND PLAN: This 71-year-old female with right thigh ESBL-producing Escherichia coli infection in a patient with chronic obstructive lung disease, congestive heart failure, morbid obesity and on meropenem day #2. We will follow clinically with you. Santy Fernandez MD
--- NOTE | 2017-02-24 09:16 | PN ---
PULMONARY PROGRESS NOTE DATE OF SERVICE: 02/23/2017 SUBJECTIVE: The patient is doing markedly better. She feels stronger. She is awake, alert, and oriented. The corticosteroids intravenously were changed to Medrol yesterday. We would further decrease this Medrol dose in the morning. We have documented PAH by an echocardiogram which shows an RVSP of 56. This was significantly high and was read by Cardiology as moderate pulmonary hypertension. At this patient's age, she certainly is a candidate for treatment of PAH. As you are aware, the treatment requires right heart catheterization data. This will be required to get her the appropriate medication for her condition. The patient is clearly not too ill or too old for medication and it will help to prolong her life as the other medications are being used as well. By means of this note, I ask Cardiology to consider a right heart catheterization at a time that they feel appropriate so that we can proceed with the workup as previously discussed. Thank you for the opportunity to see this edwina woman and we will follow her. Luiz Hernandez MD
--- NOTE | 2017-02-24 09:23 | PN ---
DATE: 02/23/2017 SUBJECTIVE: The patient is awake and alert without shortness of breath. PHYSICAL EXAMINATION VITAL SIGNS: Blood pressure is 113/64, the heart rate is in the 80s. NECK: Negative JVD. LUNGS: Without rales. HEART: With S1 and S2. EXTREMITIES: Marked edema. LABORATORY DATA: Hemoglobin is 12.9. Chemistries: BUN and creatinine are 27 and 0.7 with a potassium of 4.4. IMPRESSION: 1. Morbid obesity. 2. Persistent edema with oozing. 3. The patient is tolerating double diuretics. 4. Atrial fibrillation. 5. Diabetes mellitus. 6. Hypertension. PLAN: Given these findings, I have discussed with the patient and her about aggressive diuresis. They understand. Ryan Turk MD
[2017-02-24] MEDS: diltiaZEM 180 mg/24 Hours CD Cap PO SCH (09:55)
[2017-02-24] MEDS: Tiotropium 18 mcg Cap For Inhalation IH SCH (09:56)
[2017-02-24] MEDS: Clotrimazole/Betamethasone Cream(15 gm) TOP SCH ×2 (09:58→17:48)
[2017-02-24] MEDS: SILVER SULFADIAZINE 1% TP SCH ×2 (09:59→17:14)
--- NOTE | 2017-02-24 12:09 | PN ---
DATE: 02/24/2017 HISTORY OF PRESENT ILLNESS: The patient continues to improve. She is resting comfortably. Cardiology consultation appreciated. There is no mentioned, however, of the echocardiogram and the elevated right ventricular systolic pressure. I feel that at this point in time the patient would benefit from treatment for moderate pulmonary arterial hypertension. Will try to obtain medications, however, a right heart catheterization is required. PHYSICAL EXAMINATION: GENERAL: The patient is comfortable and in no acute distress VITAL SIGNS: Stable. LUNGS: Breath sound better. No wheezing or rales this morning HEART: Regular rhythm, S1 and S2 without gallop. EXTREMITIES: Reveal no clubbing, cyanosis, or edema. GI: Soft. Bowel sounds normoactive. : Within normal limits. NEUROLOGIC: No focal findings. SKIN: Dry; intact IMPRESSION: As above pulmonary arterial hypertension needs to be further evaluated. PLAN: The patient is doing well from the remainder of the pulmonary point of view, but the pulmonary arterial hypertension remains untreated. We will discuss with primary medical doctor, Dr. Mann and web applications programmer in consultation to see if right heart catheterization is possible. It is the only way that I can get medication for this patient to treat her pulmonary arterial hypertension. Thank you kindly for allowing me to dictate this. Luiz Hernandez MD cc: MTDD
[2017-02-24] MEDS: Digoxin 250 mcg (0.25 mg) Tab PO SCH (13:45)
--- NOTE | 2017-02-24 15:56 | CP.PCM.PN ---
Subjective - Date & Time of Evaluation Date of Evaluation: 02/24/17 Time of Evaluation: 11:30 - Subjective Subjective: Comfortable, afebrile, not in distress, right leg feels a little better. Objective - Vital Signs/Intake and Output Vital Signs (last 24 hours): Temp Pulse Resp BP Pulse Ox 97.5 F L 72 20 119/69 99 02/22/17 16:00 02/22/17 16:00 02/22/17 16:00 02/22/17 21:46 02/22/17 16:00 Intake and Output: 02/22/17 02/23/17 18:59 06:59 Intake Total 0 Balance 0 - Medications Medications: Current Medications Albuterol/Ipratropium (Duoneb 3 Mg/0.5 Mg (3 Ml) Ud) 2.5 ml IH Q6 [facility] Stop: 02/25/17 00:01 Last Admin: 02/22/17 13:14 Dose: 2.5 ml Albuterol/Ipratropium (Duoneb 3 Mg/0.5 Mg (3 Ml) Ud) 2.5 ml IH Q2 PRN PRN Reason: SOB Last Admin: 02/16/17 04:24 Dose: 2.5 ml Budesonide (Pulmicort Respules) 1 mg IH BIDRESP [facility] Last Admin: 02/22/17 19:35 Dose: Not Given Cyclobenzaprine HCl (Flexeril) 10 mg PO DAILY [facility] Last Admin: 02/22/17 09:29 Dose: 10 mg Digoxin (Lanoxin) 0.25 mg PO 1400 [facility] Last Admin: 02/22/17 13:11 Dose: 0.25 mg Diltiazem HCl (Cardizem Cd) 180 mg PO DAILY [facility] Last Admin: 02/22/17 09:31 Dose: 180 mg Docusate Sodium (Colace) 100 mg PO BID [facility] Last Admin: 02/22/17 17:25 Dose: 100 mg Furosemide (Lasix) 40 mg IVP Q12 [facility] Last Admin: 02/22/17 21:46 Dose: 40 mg Guaifenesin (Robitussin) 100 mg PO Q4H PRN PRN Reason: Cough Last Admin: 02/18/17 02:39 Dose: 100 mg Meropenem 1g/NS 100mL IVPB (Meropenem 1g/Ns 100ml Ivpb) 1 gm in 100 mls @ 100 mls/hr IVPB Q8 [facility] PRN Reason: Protocol Stop: 03/01/17 14:01 Last Admin: 02/23/17 05:16 Dose: 100 mls/hr Insulin Human Regular (Humulin R High) 0 units SC ACHS [facility] PRN Reason: Protocol Last Admin: 02/22/17 23:12 Dose: Not Given Metformin HCl (Glucophage) 1,000 mg PO BID [facility] Last Admin: 02/22/17 17:25 Dose: 1,000 mg Methylprednisolone (Medrol) 16 mg PO BID [facility] Last Admin: 02/22/17 17:25 Dose: 16 mg Pantoprazole Sodium (Protonix Ec Tab) 40 mg PO 0600,1800 [facility] Last Admin: 02/23/17 05:16 Dose: 40 mg Silver Sulfadiazine (Silver Sulfadiazine) 0 gm TP Q8H [facility] Last Admin: 02/22/17 23:08 Dose: 25 gm Spironolactone (Aldactone) 25 mg PO BID [facility] Last Admin: 02/22/17 17:25 Dose: 25 mg Tiotropium [place] (Spiriva) 18 mcg IH DAILY [facility] Last Admin: 02/22/17 09:30 Dose: 18 mcg - Labs Labs: 02/22/17 07:00 02/22/17 07:00 PT 25.6 Seconds (9.9-11.8) H 02/22/17 11:00 INR 2.37 (0.93-1.08) H 02/22/17 11:00 APTT 45.8 Seconds (23.7-30.8) H 02/15/17 18:25 - Constitutional Appears: Non-toxic, No Acute Distress - Head Exam Head Exam: NORMAL INSPECTION - Neck Exam Neck Exam: absent: Lymphadenopathy, Meningismus - Respiratory Exam Respiratory Exam: Decreased Breath Sounds - Cardiovascular Exam Cardiovascular Exam: +S1, +S2 - GI/Abdominal Exam GI & Abdominal Exam: Soft. absent: Tenderness - Extremities Exam Additional comments: both thighs with dry dressings in place Assessment and Plan - Assessment and Plan (Free Text) Plan: Assessment consider right thigh wound infection with ESBL-producing E. coli history of urinary tract infection COPD CHF morbid obesity with BMI 70 history of right leg surgery and breast surgery chronic ulcers on the lower extremities Plan continue Merrem day 3 and will continue to monitor clinically - will follow up surgery plans
--- NOTE | 2017-02-24 17:05 | CP.PCM.PN ---
Subjective - Date & Time of Evaluation Date of Evaluation: 02/21/17 Time of Evaluation: 10:00 - Subjective Subjective: The patient remains confined to bed without dyspnea. Objective - Vital Signs/Intake and Output Vital Signs (last 24 hours): 02/21/17: Blood pressure: 136/60 Heart Rate: 70s Temp Pulse Resp BP Pulse Ox 98.0 F 76 20 104/54 L 100 02/24/17 09:18 02/24/17 09:18 02/24/17 09:18 02/24/17 09:55 02/24/17 09:18 Intake and Output: 02/24/17 02/24/17 06:59 18:59 Intake Total 360 0 Balance 360 0 - Medications Medications: Current Medications Albuterol/Ipratropium (Duoneb 3 Mg/0.5 Mg (3 Ml) Ud) 2.5 ml IH Q6 [facility] Stop: 02/25/17 00:01 Last Admin: 02/24/17 14:10 Dose: Not Given Albuterol/Ipratropium (Duoneb 3 Mg/0.5 Mg (3 Ml) Ud) 2.5 ml IH Q2 PRN PRN Reason: SOB Last Admin: 02/16/17 04:24 Dose: 2.5 ml Betamethasone/Clotrimazole (Lotrisone) 0 gm TOP BID [facility] Last Admin: 02/24/17 09:58 Dose: 1 applic Budesonide (Pulmicort Respules) 1 mg IH BIDRESP [facility] Last Admin: 02/24/17 08:18 Dose: Not Given Cyclobenzaprine HCl (Flexeril) 10 mg PO DAILY [facility] Last Admin: 02/24/17 09:55 Dose: 10 mg Digoxin (Lanoxin) 0.25 mg PO 1400 [facility] Last Admin: 02/24/17 13:45 Dose: 0.25 mg Diltiazem HCl (Cardizem Cd) 180 mg PO DAILY [facility] Last Admin: 02/24/17 09:55 Dose: 180 mg Docusate Sodium (Colace) 100 mg PO BID [facility] Last Admin: 02/24/17 09:55 Dose: 100 mg Furosemide (Lasix) 40 mg IVP Q12 [facility] Last Admin: 02/24/17 09:55 Dose: 40 mg Guaifenesin (Robitussin) 100 mg PO Q4H PRN PRN Reason: Cough Last Admin: 02/18/17 02:39 Dose: 100 mg Meropenem 1g/NS 100mL IVPB (Meropenem 1g/Ns 100ml Ivpb) 1 gm in 100 mls @ 100 mls/hr IVPB Q8 [facility] PRN Reason: Protocol Stop: 03/01/17 14:01 Last Admin: 02/24/17 13:42 Dose: 100 mls/hr Insulin Human Regular (Humulin R High) 0 units SC ACHS [facility] PRN Reason: Protocol Last Admin: 02/24/17 12:38 Dose: 4 units Metformin HCl (Glucophage) 1,000 mg PO BID [facility] Last Admin: 02/24/17 09:56 Dose: 1,000 mg Methylprednisolone (Medrol) 12 mg PO BID [facility] Last Admin: 02/24/17 10:10 Dose: 12 mg Pantoprazole Sodium (Protonix Ec Tab) 40 mg PO 0600,1800 [facility] Last Admin: 02/24/17 06:01 Dose: 40 mg Silver Sulfadiazine (Silver Sulfadiazine) 0 gm TP Q8H [facility] Last Admin: 02/24/17 09:59 Dose: 25 gm Spironolactone (Aldactone) 25 mg PO BID [facility] Last Admin: 02/24/17 09:56 Dose: 25 mg Tiotropium [place] (Spiriva) 18 mcg IH DAILY [facility] Last Admin: 02/24/17 09:56 Dose: 18 mcg - Labs Labs: 02/21/17: Glucose: 308 Hemoglobin: 12.4 02/24/17 07:00 02/24/17 07:00 PT 22.5 Seconds (9.9-11.8) H 02/23/17 07:00 INR 2.08 (0.93-1.08) H 02/23/17 07:00 APTT 45.8 Seconds (23.7-30.8) H 02/15/17 18:25 - Neck Exam Additional comments: Negative JVD - Respiratory Exam Respiratory Exam: absent: Rales - Cardiovascular Exam Cardiovascular Exam: +S1, +S2 - Extremities Exam Extremities Exam: Pedal Edema (marked) Assessment and Plan - Assessment and Plan (Free Text) Assessment: 1)Morbid obesity 2)Diabetes 3)Marked continued edema in lower extremities 4)Hypertension 5)Patient is bedbound Plan: 1)Given these findings, we will add a second diuretic in hopes of trying to diurese her and lower her edema in lower extremities. Will follow her potassium on a daily basis. Will add Aldactone today.
--- NOTE | 2017-02-24 19:49 | CP.PCM.PN ---
Subjective - Date & Time of Evaluation Date of Evaluation: 02/22/17 Time of Evaluation: 10:00 - Subjective Subjective: Patient is resting and denies any shortness of breath or dyspnea. Objective - Vital Signs/Intake and Output Vital Signs (last 24 hours): 02/22/17: Blood Pressure: 111/60 Heart rate: 90s Temp Pulse Resp BP Pulse Ox 98.0 F 76 20 104/54 L 100 02/24/17 09:18 02/24/17 09:18 02/24/17 09:18 02/24/17 09:55 02/24/17 09:18 Intake and Output: 02/24/17 02/25/17 18:59 06:59 Intake Total 0 Balance 0 - Medications Medications: Current Medications Albuterol/Ipratropium (Duoneb 3 Mg/0.5 Mg (3 Ml) Ud) 2.5 ml IH Q6 [facility] Stop: 02/25/17 00:01 Last Admin: 02/24/17 14:10 Dose: Not Given Albuterol/Ipratropium (Duoneb 3 Mg/0.5 Mg (3 Ml) Ud) 2.5 ml IH Q2 PRN PRN Reason: SOB Last Admin: 02/16/17 04:24 Dose: 2.5 ml Betamethasone/Clotrimazole (Lotrisone) 0 gm TOP BID [facility] Last Admin: 02/24/17 17:48 Dose: 1 applic Budesonide (Pulmicort Respules) 1 mg IH BIDRESP [facility] Last Admin: 02/24/17 08:18 Dose: Not Given Cyclobenzaprine HCl (Flexeril) 10 mg PO DAILY [facility] Last Admin: 02/24/17 09:55 Dose: 10 mg Digoxin (Lanoxin) 0.25 mg PO 1400 [facility] Last Admin: 02/24/17 13:45 Dose: 0.25 mg Diltiazem HCl (Cardizem Cd) 180 mg PO DAILY [facility] Last Admin: 02/24/17 09:55 Dose: 180 mg Docusate Sodium (Colace) 100 mg PO BID [facility] Last Admin: 02/24/17 17:13 Dose: 100 mg Furosemide (Lasix) 40 mg IVP Q12 [facility] Last Admin: 02/24/17 09:55 Dose: 40 mg Guaifenesin (Robitussin) 100 mg PO Q4H PRN PRN Reason: Cough Last Admin: 02/18/17 02:39 Dose: 100 mg Meropenem 1g/NS 100mL IVPB (Meropenem 1g/Ns 100ml Ivpb) 1 gm in 100 mls @ 100 mls/hr IVPB Q8 [facility] PRN Reason: Protocol Stop: 03/01/17 14:01 Last Admin: 02/24/17 13:42 Dose: 100 mls/hr Insulin Human Regular (Humulin R High) 0 units SC ACHS [facility] PRN Reason: Protocol Last Admin: 02/24/17 17:49 Dose: 2 units Metformin HCl (Glucophage) 1,000 mg PO BID [facility] Last Admin: 02/24/17 17:13 Dose: 1,000 mg Methylprednisolone (Medrol) 12 mg PO BID [facility] Last Admin: 02/24/17 17:13 Dose: 12 mg Pantoprazole Sodium (Protonix Ec Tab) 40 mg PO 0600,1800 [facility] Last Admin: 02/24/17 17:13 Dose: 40 mg Silver Sulfadiazine (Silver Sulfadiazine) 0 gm TP Q8H [facility] Last Admin: 02/24/17 17:14 Dose: 1 gm Spironolactone (Aldactone) 25 mg PO BID [facility] Last Admin: 02/24/17 17:13 Dose: 25 mg Tiotropium [place] (Spiriva) 18 mcg IH DAILY [facility] Last Admin: 02/24/17 09:56 Dose: 18 mcg - Labs Labs: 02/22/17: WBC: 15 Hemoglobin: 12.3 Chemistries: BUN: 26 Creatinine: 0.7 Potassium: 4.5 02/24/17 07:00 02/24/17 07:00 PT 22.5 Seconds (9.9-11.8) H 02/23/17 07:00 INR 2.08 (0.93-1.08) H 02/23/17 07:00 APTT 45.8 Seconds (23.7-30.8) H 02/15/17 18:25 - Neck Exam Additional comments: Negative JVD - Respiratory Exam Respiratory Exam: Decreased Breath Sounds. absent: Rales - Cardiovascular Exam Cardiovascular Exam: +S1, +S2 - Extremities Exam Additional comments: Extremities: Essentially unchanged. Assessment and Plan - Assessment and Plan (Free Text) Assessment: 1)Morbid obesity 2)Chronic edema in lower extremities 3)Diabetes mellitus 4)Hypertension 5)Dyspnea Plan: 1)Given these findings, the patient is tolerating double diuretics.Will continue to double diuretics in attempts of decreasing her edema to decrease her seeping through her legs.
--- NOTE | 2017-02-24 22:00 | PN ---
DATE: SUBJECTIVE: I saw Maria Isabel in her bed, big bed with her . She is doing a lot better. She said she slept well and she is feeling better. No shortness of breath. No cough. No chest pain or shortness of breath. No abdominal pain. The oozing on the sides have decreased greatly. The legs are much thinner than when she came in. I feel like she diuresed very well and she is on IV antibiotics. PHYSICAL EXAMINATION: VITAL SIGNS: Temperature 98, pulse 76, blood pressure 104/54, respiratory rate 20, O2 saturation 100% on nasal cannula. HEENT: Head is atraumatic, normocephalic. Throat is moist. NECK: Supple. CARDIOPULMONARY: Heart is regular rate. LUNGS: Decreased breath sounds, but clear to auscultation. No wheezes, no rhonchi, no rales. ABDOMEN: Morbidly, morbidly obese, nontender throughout, positive bowel sounds. EXTREMITIES: Although they are still extremely swollen, they are much better than when they came in. There are some wrinkles also in some of the skin which shows that she diuresed very well. The sides of the skin on bilateral thighs are still with ulcers, but less stretched on and they are starting to show signs of healing. She does have some fungus infection, redness in-between the folds and asked for some Lotrisone cream, I will give her that. LABORATORY DATA: She has labs pending this morning. MEDICATIONS: Hopefully she will continue to do well, but she is on Aldactone, Cardizem, Colace, DuoNeb, Flexeril, metformin, insulin, Lanoxin, Lasix, Medrol which raises her white count, Merrem I.V., Protonix, Pulmicort, Robitussin, Silvadene cream, and Spiriva. Now I am going to add Lotrisone cream. ASSESSMENT AND PLAN: She is being seen by Surgery, Cardiology, Infectious Disease, and GI. I am hoping that the Lotrisone cream will help the skin when I could change her from IV to p.o. antibiotics. Now, sort the thing about discharging her home. Otherwise, we will continue with aggressive treatment and care for her infection, her CHF, her edema, her bilateral thigh ulcers and wounds, AFib, diabetes, and also COPD. Discussed at length with her and her . Alan Mann DO [facility] # [id number]
[2017-02-25] MEDS: SILVER SULFADIAZINE 1% TP SCH ×4 (01:00→20:00)
[2017-02-25] MEDS: Albuterol-Ipratrop 3 mg / 0.5 (3 ml) UD IH SCH (01:20)
--- NOTE | 2017-02-25 02:44 | PN ---
DATE: 02/24/2017 SUBJECTIVE: The patient remains in bed without shortness of breath. PHYSICAL EXAMINATION: VITAL SIGNS: Blood pressure 104/54, heart rate is in the 70s. NECK: Negative JVD. LUNGS: Without rales. HEART: Reveals S1, S2. EXTREMITIES: Marked edema. LABORATORY DATA: The white count is 16,000, hemoglobin is 13.1. Chemistry: Potassium is 4.4 with a BUN and creatinine unremarkable. IMPRESSION: 1. Cellulitis. 2. Morbid obesity. 3. Marked pedal edema. 4. Diabetes mellitus. 5. Normal potassium. Given these findings, we will maintain the patient on double diuretics. The patient is on IV antibiotics. Ryan Turk MD
[2017-02-25] MEDS: Meropenem 1g/NS 100mL IVPB 1 GM/100 ML PIGGYBACK IVPB SCH ×3 (06:46→21:08)
[2017-02-25] MEDS: Pantoprazole 40 mg EC Tab PO SCH ×2 (06:51→17:28)
[2017-02-25 07:49] LABS: HEMOGLOBIN 12.9 gm/dL (12.0-16.0); MEAN CELL VOLUME 85.4 fL (80.0-105.0); MEAN CORPUSCULAR HEMOGLOBIN 27.4 pg (25.0-35.0); MEAN CORPUSCULAR HGB CONC 32.1 g/dl (31.0-37.0); MEAN PLATELET VOLUME 11.1 fl (7.0-11.0); RBC 4.71 10^6/uL (3.5-6.1); WHITE BLOOD COUNT 15.1 10^3/ul (4.5-11.0)
[2017-02-25 07:54] LABS: INR 1.8 (0.93-1.08); PROTHROMBIN TIME 19.4 Seconds (9.9-11.8)
[2017-02-25 08:03] LABS: ALB/GLOB RATIO 1.1 (1.1-1.8); ALBUMIN 3.4 g/dL (3.0-4.8); ALT/SGPT 47 U/L (7-56); AST/SGOT 22 U/L (15-39); BLOOD UREA NITROGEN 28 mg/dL (7-21); CALCIUM 8.6 mg/dL (8.4-10.5); GFR AFRICAN-AMERICAN > 60; GFR NON-AFRICAN AMERICAN > 60
[2017-02-25] MEDS: Budesonide 0.5 mg/2 ml Inhal Susp UD IH SCH ×2 (08:18→23:24)
[2017-02-25] MEDS: Insulin Reg-HIGH-Coverage SC SCH ×4 (08:43→21:21)
--- NOTE | 2017-02-25 08:50 | PN ---
SUBJECTIVE: I saw Maria Isabel now in isolation from ESBL and the urine in a big girl bed. is present. She slept fairly well. No shortness of breath. No chest pain. Oozing on both sides of her thighs. Ulcers and wounds have decreased in oozing. Her legs are less swollen. I believe she is diuresing well. She is on IV antibiotics. She is eating okay. No chest pain or shortness of breath. No abdominal pain. PHYSICAL EXAMINATION: VITAL SIGNS: Temperature 97.5, pulse 72, blood pressure 109/63, respiratory rate 20, and O2 sat 99% on 2 L nasal cannula. HEENT: Head is atraumatic and normocephalic. Throat is moist. NECK: Supple. CARDIOPULMONARY: Heart is regular and rate. LUNGS: Decreased breath sounds bilaterally, but clear to auscultation. ABDOMEN: Morbidly obese, nontender, soft. Positive bowel sounds. EXTREMITIES: Very swollen, but much better when she came in. I could see some wrinkling in the skin, but still they are very much edematous in bilateral feet. SKIN: She has bilateral ulcers on both thighs that are less oozing. LABORATORY DATA: She had blood test 15.6 white count, it is elevated, but she is on prednisone and steroids. Hemoglobin is 12.9, hematocrit is 39.6, and platelets of 178. INR is 2.08, not on Coumadin, it is coming down. Hematology feels this is from antibiotics. Sodium is 136, potassium is 4.5, BUN is 26, creatinine is 0.7, GFR 02:19 sugar is 234, calcium is 8.8, total bilirubin is 0.4, AST is 19, ALT is 35, alkaline phosphatase is 64, and total protein is 6.5. Digoxin level is 0.9. MEDICATIONS: She is currently on Aldactone, Cardizem, Colace, DuoNeb, Flexeril, Glucophage, insulin, digoxin, Lasix IV, she is on methylprednisolone 60 mg twice a day, she is off the Solu-Medrol, she is on Merrem IV by the Infectious Disease doctor, Protonix, Pulmicort, guaifenesin, Silvadene cream, and Spiriva. ASSESSMENT AND PLAN: She is not having Escherichia coli from extended-spectrum beta-lactamases and isolation, unchanged in medication. She is on Merrem IV. She is being seen by Cardiology, Infectious Disease, Gastroenterology, Podiatry, and Surgery. Continue with aggressive treatment and care. She has multiple issues from morbidly obese, bed bound, over 600 pounds, chronic obstructive pulmonary disease, bilateral thigh ulcers, urinary tract infection, extended-spectrum beta-lactamase, congestive heart failure with edema, diabetes. Continue with IV antibiotics. Alan Mann DO cc: ANUP
[2017-02-25] MEDS: diltiaZEM 180 mg/24 Hours CD Cap PO SCH (10:54)
[2017-02-25] MEDS: Tiotropium 18 mcg Cap For Inhalation IH SCH (10:55)
[2017-02-25] MEDS: Clotrimazole/Betamethasone Cream(15 gm) TOP SCH ×2 (10:55→16:59)
[2017-02-25] MEDS: Digoxin 250 mcg (0.25 mg) Tab PO SCH (14:08)
--- NOTE | 2017-02-25 16:01 | CP.PCM.PN ---
Subjective - Date & Time of Evaluation Date of Evaluation: 02/17/17 Time of Evaluation: 10:00 - Subjective Subjective: Patient's breathing is better. Objective - Vital Signs/Intake and Output Vital Signs (last 24 hours): 02/17/17: Blood pressure 130/71, heart rate is in the 60s Temp Pulse Resp BP Pulse Ox 97.7 F 83 20 105/60 100 02/25/17 08:03 02/25/17 10:54 02/25/17 08:03 02/25/17 10:54 02/25/17 08:03 Intake and Output: 02/25/17 02/25/17 06:59 18:59 Intake Total 120 Balance 120 - Medications Medications: Current Medications Albuterol/Ipratropium (Duoneb 3 Mg/0.5 Mg (3 Ml) Ud) 2.5 ml IH Q2 PRN PRN Reason: SOB Last Admin: 02/16/17 04:24 Dose: 2.5 ml Betamethasone/Clotrimazole (Lotrisone) 0 gm TOP BID [facility]ONI Last Admin: 02/25/17 10:55 Dose: 1 applic Budesonide (Pulmicort Respules) 1 mg IH BIDRESP [facility]ONI Last Admin: 02/25/17 08:18 Dose: 0.5 mg Cyclobenzaprine HCl (Flexeril) 10 mg PO DAILY RONI Last Admin: 02/25/17 10:53 Dose: 10 mg Digoxin (Lanoxin) 0.25 mg PO 1400 [facility]ONI Last Admin: 02/24/17 13:45 Dose: 0.25 mg Diltiazem HCl (Cardizem Cd) 180 mg PO DAILY RNOI Last Admin: 02/25/17 10:54 Dose: Not Given Docusate Sodium (Colace) 100 mg PO BID [facility]ONI Last Admin: 02/25/17 10:53 Dose: 100 mg Furosemide (Lasix) 40 mg IVP Q12 [facility] Last Admin: 02/25/17 10:53 Dose: 40 mg Guaifenesin (Robitussin) 100 mg PO Q4H PRN PRN Reason: Cough Last Admin: 02/18/17 02:39 Dose: 100 mg Meropenem 1g/NS 100mL IVPB (Meropenem 1g/Ns 100ml Ivpb) 1 gm in 100 mls @ 100 mls/hr IVPB Q8 [facility]ONI PRN Reason: Protocol Stop: 03/01/17 14:01 Last Admin: 02/25/17 06:46 Dose: 100 mls/hr Insulin Human Regular (Humulin R High) 0 units SC ACHS [facility] PRN Reason: Protocol Last Admin: 02/25/17 11:44 Dose: 1 units Metformin HCl (Glucophage) 1,000 mg PO BID [facility] Last Admin: 02/25/17 10:54 Dose: 1,000 mg Methylprednisolone (Medrol) 8 mg PO BID [facility] Pantoprazole Sodium (Protonix Ec Tab) 40 mg PO 0600,1800 [facility] Last Admin: 02/25/17 06:51 Dose: 40 mg Silver Sulfadiazine (Silver Sulfadiazine) 0 gm TP Q8H [facility] Last Admin: 02/25/17 08:44 Dose: 1 gm Spironolactone (Aldactone) 25 mg PO BID [facility] Last Admin: 02/25/17 10:55 Dose: 25 mg Tiotropium [place] (Spiriva) 18 mcg IH DAILY [facility] Last Admin: 02/25/17 10:55 Dose: 18 mcg - Labs Labs: 02/17/17: Laboratories: Hemoglobin is 11.7; Chemistries: unremarkable other than a glucose of 191 02/25/17 07:00 02/25/17 07:00 PT 19.4 Seconds (9.9-11.8) H 02/25/17 07:00 INR 1.80 (0.93-1.08) H 02/25/17 07:00 APTT 45.8 Seconds (23.7-30.8) H 02/15/17 18:25 - Neck Exam Additional comments: Negative JVD - Respiratory Exam Respiratory Exam: absent: Rales - Cardiovascular Exam Cardiovascular Exam: +S1, +S2 - Extremities Exam Extremities Exam: Pedal Edema (marked) Assessment and Plan - Assessment and Plan (Free Text) Assessment: 1. Acute systolic CHF 2. Morbid obesity 3. Diabetes mellitus 4. COPD 5. Bronchitis 6. Marked edema Plan: Given these findings, patient should continue on her lasix. Her heart rate is well controlled with the diltiazem.
--- NOTE | 2017-02-25 16:37 | CP.PCM.PN ---
Subjective - Date & Time of Evaluation Date of Evaluation: 02/25/17 Time of Evaluation: 11:25 - Subjective Subjective: Comfortable in bed, not in distress, afebrile. Objective - Vital Signs/Intake and Output Vital Signs (last 24 hours): Temp Pulse Resp BP Pulse Ox 97.7 F 83 20 105/60 100 02/25/17 08:03 02/25/17 08:03 02/25/17 08:03 02/25/17 08:03 02/25/17 08:03 Intake and Output: 02/25/17 02/25/17 06:59 18:59 Intake Total 120 Balance 120 - Medications Medications: Current Medications Albuterol/Ipratropium (Duoneb 3 Mg/0.5 Mg (3 Ml) Ud) 2.5 ml IH Q2 PRN PRN Reason: SOB Last Admin: 02/16/17 04:24 Dose: 2.5 ml Betamethasone/Clotrimazole (Lotrisone) 0 gm TOP BID [facility] Last Admin: 02/24/17 17:48 Dose: 1 applic Budesonide (Pulmicort Respules) 1 mg IH BIDRESP [facility] Last Admin: 02/25/17 08:18 Dose: 0.5 mg Cyclobenzaprine HCl (Flexeril) 10 mg PO DAILY [facility] Last Admin: 02/24/17 09:55 Dose: 10 mg Digoxin (Lanoxin) 0.25 mg PO 1400 [facility] Last Admin: 02/24/17 13:45 Dose: 0.25 mg Diltiazem HCl (Cardizem Cd) 180 mg PO DAILY [facility] Last Admin: 02/24/17 09:55 Dose: 180 mg Docusate Sodium (Colace) 100 mg PO BID [facility] Last Admin: 02/24/17 17:13 Dose: 100 mg Furosemide (Lasix) 40 mg IVP Q12 [facility] Last Admin: 02/24/17 23:28 Dose: 40 mg Guaifenesin (Robitussin) 100 mg PO Q4H PRN PRN Reason: Cough Last Admin: 02/18/17 02:39 Dose: 100 mg Meropenem 1g/NS 100mL IVPB (Meropenem 1g/Ns 100ml Ivpb) 1 gm in 100 mls @ 100 mls/hr IVPB Q8 [facility] PRN Reason: Protocol Stop: 03/01/17 14:01 Last Admin: 02/25/17 06:46 Dose: 100 mls/hr Insulin Human Regular (Humulin R High) 0 units SC ACHS [facility] PRN Reason: Protocol Last Admin: 02/25/17 08:43 Dose: 7 units Metformin HCl (Glucophage) 1,000 mg PO BID [facility] Last Admin: 02/24/17 17:13 Dose: 1,000 mg Methylprednisolone (Medrol) 12 mg PO BID [facility] Last Admin: 02/24/17 17:13 Dose: 12 mg Pantoprazole Sodium (Protonix Ec Tab) 40 mg PO 0600,1800 [facility] Last Admin: 02/25/17 06:51 Dose: 40 mg Silver Sulfadiazine (Silver Sulfadiazine) 0 gm TP Q8H [facility] Last Admin: 02/25/17 08:44 Dose: 1 gm Spironolactone (Aldactone) 25 mg PO BID [facility] Last Admin: 02/24/17 17:13 Dose: 25 mg Tiotropium [place] (Spiriva) 18 mcg IH DAILY [facility] Last Admin: 02/24/17 09:56 Dose: 18 mcg - Labs Labs: 02/25/17 07:00 02/25/17 07:00 PT 19.4 Seconds (9.9-11.8) H 02/25/17 07:00 INR 1.80 (0.93-1.08) H 02/25/17 07:00 APTT 45.8 Seconds (23.7-30.8) H 02/15/17 18:25 - Constitutional Appears: Non-toxic, No Acute Distress - Head Exam Head Exam: NORMAL INSPECTION - Neck Exam Neck Exam: absent: Meningismus - Respiratory Exam Respiratory Exam: Decreased Breath Sounds - Cardiovascular Exam Cardiovascular Exam: +S1, +S2 - GI/Abdominal Exam GI & Abdominal Exam: Soft. absent: Tenderness - Extremities Exam Additional comments: both thighs with dressings in place Assessment and Plan - Assessment and Plan (Free Text) Plan: Assessment consider right thigh wound infection with ESBL-producing E. coli history of urinary tract infection COPD CHF morbid obesity with BMI 70 history of right leg surgery and breast surgery chronic ulcers on the lower extremities Plan continue Merrem day 4 and will continue to monitor clinically - will follow up surgery plans; should target 7-10 days of antibiotics
[2017-02-26] MEDS: Meropenem 1g/NS 100mL IVPB 1 GM/100 ML PIGGYBACK IVPB SCH ×3 (05:22→22:08)
[2017-02-26] MEDS: Pantoprazole 40 mg EC Tab PO SCH ×2 (05:22→17:29)
--- NOTE | 2017-02-26 06:33 | PN ---
DATE: 02/25/2017 SUBJECTIVE: Maria Isabel resting comfortably in bed. She slept fairly well. She is little bit having stomach upset, but she is definitely losing a lot of fluid. The oozing on both sides of the thighs are improving. She has lost a lot of water weight. The legs are much thinner than they were with a lot of loose skin now and she is breathing better. She is currently on Aldactone, Cardizem, Colace, DuoNeb, Flexeril, Glucophage, insulin, Lanoxin, Lasix, Lotrisone, Medrol, meropenem, Protonix, Pulmicort, Robitussin, Silvadene and Spiriva. PHYSICAL EXAMINATION VITAL SIGNS: 97.7 temp, 83 pulse, 105/60 blood pressure, 20 respiratory rate and 100% O2 sat on room air. HEENT: Head atraumatic and normocephalic. Throat is moist. NECK: Supple. CARDIOPULMONARY: Regular rate. LUNGS: Decreased breath sounds. Clear to auscultation. ABDOMEN: Morbidly obese, soft and nontender with positive bowel sounds. EXTREMITIES: Edematous, but much less swelling. Had a lot of loose skin now, both thighs have oozing and ulcers, which has slowed down a lot with the oozing. LABORATORY DATA: She has a 15.1 white count, 12.9 hemoglobin, 40.2 hematocrit with 231 platelets. The high white count could be from the Medrol that she is on. Her INR is 1.8, not on any Coumadin; 132 sodium, potassium 4.3, BUN 28, creatinine 0.6, *------* on steroids. Calcium is 8.6, total bilirubin is 0.7, AST is 22, ALT is 47 and alkaline phosphatase 62, total protein is 6.6. ASSESSMENT AND PLAN: She is being seen by Cardiology, Infectious disease, Pulmonary and Surgery. She will continue with Merrem IV as per infectious disease. Continue with the diuretics as per Cardiology and she will continue with Solu-Medrol by Pulmonary. She is currently down to 12 twice a day, there is one more day and tomorrow we will get it down to 8. Continue with IV antibiotics. Continue with the diuresis. She also has chronic obstructive pulmonary disease, bilateral thigh ulcers, severe congestive heart failure, atrial fibrillation, morbidly obese, diabetes. We will check the labs tomorrow. Alan Mann DO
[2017-02-26 07:59] LABS: MEAN CORPUSCULAR HEMOGLOBIN 27.3 pg (25.0-35.0); MEAN CORPUSCULAR HGB CONC 32.1 g/dl (31.0-37.0); MEAN PLATELET VOLUME 11.3 fl (7.0-11.0); RBC 4.4 10^6/uL (3.5-6.1); RED CELL DISTRIBUTION WIDTH 16.2 % (11.5-14.5); WHITE BLOOD COUNT 12.1 10^3/ul (4.5-11.0)
[2017-02-26 08:12] LABS: ALBUMIN 3.1 g/dL (3.0-4.8); ALT/SGPT 45 U/L (7-56); AST/SGOT 22 U/L (15-39); BLOOD UREA NITROGEN 27 mg/dL (7-21); CALCIUM 8.5 mg/dL (8.4-10.5); GFR AFRICAN-AMERICAN > 60; GFR NON-AFRICAN AMERICAN > 60
[2017-02-26] MEDS: Insulin Reg-HIGH-Coverage SC SCH ×4 (08:26→21:50)
[2017-02-26] MEDS: Budesonide 0.5 mg/2 ml Inhal Susp UD IH SCH ×2 (08:30→22:02)
[2017-02-26] MEDS: diltiaZEM 180 mg/24 Hours CD Cap PO SCH (09:40)
[2017-02-26] MEDS: Tiotropium 18 mcg Cap For Inhalation IH SCH (09:41)
[2017-02-26] MEDS: Clotrimazole/Betamethasone Cream(15 gm) TOP SCH ×2 (09:46→17:29)
[2017-02-26] MEDS: SILVER SULFADIAZINE 1% TP SCH ×2 (09:46→17:30)
[2017-02-26] MEDS: Digoxin 250 mcg (0.25 mg) Tab PO SCH (13:13)
--- NOTE | 2017-02-27 03:13 | PN ---
SUBJECTIVE: I saw Maria Isabel Bowden resting comfortably in bed. Her is present. She had a fairly good night. She is eating okay. She feels like the oozing on the sides have really decreased a lot. She is still getting IV antibiotics and will need them for a few more days. MEDICATIONS: She is on Aldactone, Cardizem, Colace, DuoNeb, Flexeril, Glucophage, insulin, Lanoxin, Lasix, Lotrisone, and Medrol; she is dropped to 8 mg twice a day, Merrem IV, Protonix, Pulmicort, Robitussin, silver sulfadiazine cream, and Spiriva. PHYSICAL EXAMINATION: VITAL SIGNS: Temperature 98.5, pulse 89, blood pressure 102/64, respiratory rate 20, and O2 saturation 90% on 2 L nasal cannula. HEENT: Head is atraumatic and normocephalic. Throat is moist. NECK: Supple. HEART: Regular rate. LUNGS: Decreased breath sounds bilaterally, but clear. ABDOMEN: Morbidly obese, nontender. Positive bowel sounds. EXTREMITIES: Although very swollen, now much, much better, half the size then the one when she came in. She is diuresing fantastic. Also the oozing on both sides of the body have decreased. So I do think that diuresis and IV antibiotics are working very well. LABORATORY DATA: She has a white count 12.1, the best it has been, could be from the decrease from the steroids, but also the IV antibiotics, hemoglobin is 12, hematocrit 37.4, platelets are 227. INR is 1.8. Sodium 131, potassium 4.1, BUN 27, creatinine 0.5, GFR , sugar 190, calcium is 8.5, total bilirubin is 0.7, AST is 22, ALT is 45, alkaline phosphatase 53, and total protein 6.2. She is being seen by Infectious Disease, Cardiology, Surgery, and GI. She is on day #4 of Merrem and will need 7 to 8 days of IV antibiotics to complete the treatment. We will continue aggressive treatment and care. Check her labs tomorrow. Continue with diuresis. The patient is here for COPD, bilateral thigh ulcers, CHF, AFib, diabetes, morbid obesity. Alan Mann DO Psychiatric # [id number] [facility]UP
[2017-02-27] MEDS: Meropenem 1g/NS 100mL IVPB 1 GM/100 ML PIGGYBACK IVPB SCH ×3 (05:03→22:37)
[2017-02-27] MEDS: Pantoprazole 40 mg EC Tab PO SCH ×2 (05:04→17:56)
[2017-02-27 07:33] LABS: HEMOGLOBIN 13.1 gm/dL (12.0-16.0); MEAN CORPUSCULAR HEMOGLOBIN 27.7 pg (25.0-35.0); MEAN CORPUSCULAR HGB CONC 32.2 g/dl (31.0-37.0); RBC 4.73 10^6/uL (3.5-6.1); RED CELL DISTRIBUTION WIDTH 16.1 % (11.5-14.5)
[2017-02-27 07:46] LABS: ALBUMIN 3.4 g/dL (3.0-4.8); ALT/SGPT 45 U/L (7-56); AST/SGOT 18 U/L (15-39); BLOOD UREA NITROGEN 28 mg/dL (7-21); CALCIUM 8.7 mg/dL (8.4-10.5); GFR AFRICAN-AMERICAN > 60; GFR NON-AFRICAN AMERICAN > 60
[2017-02-27] MEDS: Budesonide 0.5 mg/2 ml Inhal Susp UD IH SCH ×2 (08:00→19:17)
[2017-02-27] MEDS: SILVER SULFADIAZINE 1% TP SCH ×3 (08:34→22:38)
--- NOTE | 2017-02-27 08:43 | PN ---
DATE: 02/25/2017 PULMONARY PROGRESS NOTE SUBJECTIVE: The patient feels markedly better. She is sitting in bed stating that she is just waiting for the remainder of the infection to resolve with antibiotic therapies. She has no respiratory distress and is comfortable at bed rest. Please note, though we have not yet heard from cardiology regarding possible right heart catheterization. The patient is assumed to have significant pulmonary arterial hypertension, but diagnostics have not been completed. We are unable to get medications to treat her without diagnostic data obtained from right heart cath. Due to the patient's size and bedridden status, it is thought to be advantageous to get this cath done while the patient is in the hospital. Seeing a pipe fitter gas pipe as an outpatient is near impossible and having her move from home to cardiac supervisor cytogenetic laboratory is also nearly impossible at the most or extremely difficult at the least. We have made attempts to contact the physicians involved and not yet had the opportunity to discuss this with them. PHYSICAL EXAMINATION: GENERAL: The patient is comfortable in no acute respiratory distress. VITAL SIGNS: Stable with the blood pressure of 120/84, heart rate 86, respiratory rate 18, O2 sat 97% on supplemental oxygen. NECK: Supple. No JVD. No lymphadenopathy. No bruit. No other abnormalities noted. CHEST: Good breath sounds, global decrease in noises. No wheezing, rales or rhonchi this morning. CARDIOPULMONARY: Regular rhythm, S1, S2. Soft systolic ejection murmur at the lower left sternal border. No gallop or rub noted. ABDOMEN: Soft. Bowel sounds normoactive without mass, guarding or rebound. No organomegaly. EXTREMITIES: Reveal no clubbing, cyanosis or edema. There is no Homans sign. NEUROLOGIC: No focal findings. It is impossible to do a complete neurologic exam as the patient is lying in bed, significantly overweight. IMPRESSION: 1. Chronic obstructive pulmonary disease. 2. Obesity. 3. Pulmonary arterial hypertension. 4. Cannot exclude underlying obstructive sleep apnea. PLAN: Would be to get a right heart catheterization to obtain qualifying numbers for treatment and to obtain medication for her. In addition, the patient will require a home sleep study. This can easily be arranged as an outpatient because the machine is portable and family members will be able to just cotton picker operator this machine and we will be able to decide if CPAP is actually needed due to nocturnal symptoms. We will see this patient again as required. Strongly suggest that the current medications which include albuterol and ipratropium as well as budesonide be continued. We will slowly decrease the methylprednisolone, which is down to 12 mg twice a day at this time. We will differ to PMD who is continuing to treat her diabetes to follow these two parameters together as they are intricately associated. The tiotropium should continue at the current dose as well. Thank you for the opportunity to see this patient. We will try to make arrangements to see her as an outpatient. If in fact she does have a right heart catheterization during this admission, please call me immediately so that I can intervene while the patient is still in the hospital. It would be beneficial to the patient to have this diagnosis confirmed and treatment begun. Luiz Hernandez MD
[2017-02-27] MEDS: diltiaZEM 180 mg/24 Hours CD Cap PO SCH (09:26)
[2017-02-27] MEDS: Insulin Reg-HIGH-Coverage SC SCH ×4 (09:27→22:39)
[2017-02-27] MEDS: Tiotropium 18 mcg Cap For Inhalation IH SCH (09:33)
--- NOTE | 2017-02-27 11:21 | PN ---
HISTORY OF PRESENT ILLNESS: I saw Maria Isabel this morning with her present in the room. She has slept well last night. She is eating well. No chest pain. No shortness of breath. No abdominal pain. I also discussed with the nurse this morning, she had a lot of oozing from both sides with the worst it has been in a few days, so a lot more fluid is coming out of bilateral wounds. I asked me to get the wound care nurse back in, I will order the wound care nurse for evaluation again. No chest pain, no shortness of breath, and no abdominal pain. The legs have much less fluid in them. She is diuresing still very well, as she is on a IV antibiotics. No other complaints. PHYSICAL EXAMINATION: VITAL SIGNS: 98.5 temperature, 89 pulse, 102/64 blood pressure, 20 respiratory rate, 98% O2 saturation on 3 liters. HEENT: Head is atraumatic and normocephalic. Throat is moist. NECK: Supple. HEART: Regular rate. LUNGS: Decreased breath sounds, but clear to auscultation. ABDOMEN: Soft, morbidly obese, nontender, and positive bowel sounds. No guarding and no rebound. EXTREMITIES: Although they are very big as much less edema in both lower extremities. Both thighs have also bandaged and is oozing from them a lot last night and the most has been in the few days. MEDICATIONS: She is currently on Aldactone, Cardizem, Colace, DuoNeb, Flexeril, Glucophage, insulin, Lanoxin, Lasix, Lotrisone, and Medrol which I dropped from 8 mg twice a day to 4 mg twice a day. Merrem IV as per infectious disease, Protonix, Pulmicort, Robitussin, Silvadene, and Spiriva. LABORATORY DATA: She has a 12 white count, 13.1 hemoglobin, and 40.7 hematocrit with 202 platelets. INR is 1.8. Sodium is 135, potassium is 4.3, BUN is 20, and creatinine is 0.6. GFR is greater than 60. Blood sugar is 151, calcium is 8.7, total bilirubin is 0.9, AST is 18, ALT is 45, alkaline phosphatase is 65, and total protein is 6.7. IMPRESSION AND PLAN: She is being seen by Infectious Disease, Cardiology, Pulmonary and Surgery. for severe congestive heart failure, bilateral wounds on her thighs, chronic obstructive pulmonary disease, atrial fibrillation, morbid obesity and diabetes. I will decrease the Medrol when the Infectious Disease told to make a changes of tablets, we will discharge her home. Continue with diuresing and wound care nurse. Thank you very much, I discussed at length with Maria Isabel and the at length. Alan Mann DO MTDVivien
[2017-02-27] MEDS: Clotrimazole/Betamethasone Cream(15 gm) TOP SCH ×2 (11:26→18:26)
[2017-02-27] MEDS: Digoxin 250 mcg (0.25 mg) Tab PO SCH (13:59)
--- NOTE | 2017-02-27 14:19 | CP.PCM.PN ---
<Kamla Brar - Last Filed: 02/27/17 14:04> Subjective - Date & Time of Evaluation Date of Evaluation: 02/27/17 Time of Evaluation: 13:20 - Subjective Subjective: 71 year old female was seen at bedside with attending Dr. Hsieh present for f/ u of right foot pain. Pt seen resting comfortably in bed at time of visit. Says the pain to the right foot is much improved, however she does says that she continues to feel sensitivity to both legs and feet. Denies any other problems today. Objective - Vital Signs/Intake and Output Vital Signs (last 24 hours): Temp Pulse Resp BP Pulse Ox 97.5 F L 83 20 106/51 L 99 02/27/17 08:06 02/27/17 08:06 02/27/17 08:06 02/27/17 10:48 02/27/17 08:06 Intake and Output: 02/27/17 02/27/17 06:59 18:59 Intake Total 730 Balance 730 - Medications Medications: Current Medications Albuterol/Ipratropium (Duoneb 3 Mg/0.5 Mg (3 Ml) Ud) 2.5 ml IH Q2 PRN PRN Reason: SOB Last Admin: 02/16/17 04:24 Dose: 2.5 ml Betamethasone/Clotrimazole (Lotrisone) 0 gm TOP BID [facility] Last Admin: 02/27/17 11:26 Dose: Not Given Budesonide (Pulmicort Respules) 1 mg IH BIDRESP [facility] Last Admin: 02/27/17 08:00 Dose: 1 mg Cyclobenzaprine HCl (Flexeril) 10 mg PO DAILY [facility] Last Admin: 02/27/17 09:26 Dose: 10 mg Digoxin (Lanoxin) 0.25 mg PO 1400 [facility] Last Admin: 02/26/17 13:13 Dose: 0.25 mg Diltiazem HCl (Cardizem Cd) 180 mg PO DAILY [facility] Last Admin: 02/27/17 09:26 Dose: 180 mg Docusate Sodium (Colace) 100 mg PO BID [facility] Last Admin: 02/27/17 09:26 Dose: 100 mg Furosemide (Lasix) 40 mg IVP Q12 [facility] Last Admin: 02/27/17 10:48 Dose: 40 mg Guaifenesin (Robitussin) 100 mg PO Q4H PRN PRN Reason: Cough Last Admin: 02/18/17 02:39 Dose: 100 mg Meropenem 1g/NS 100mL IVPB (Meropenem 1g/Ns 100ml Ivpb) 1 gm in 100 mls @ 100 mls/hr IVPB Q8 [facility] PRN Reason: Protocol Stop: 03/01/17 14:01 Last Admin: 02/27/17 05:03 Dose: 100 mls/hr Insulin Human Regular (Humulin R High) 0 units SC ACHS [facility] PRN Reason: Protocol Last Admin: 02/27/17 09:27 Dose: 2 units Metformin HCl (Glucophage) 1,000 mg PO BID [facility] Last Admin: 02/27/17 09:26 Dose: 1,000 mg Methylprednisolone (Medrol) 4 mg PO BID [facility] Last Admin: 02/27/17 09:26 Dose: 4 mg Pantoprazole Sodium (Protonix Ec Tab) 40 mg PO 0600,1800 [facility] Last Admin: 02/27/17 05:04 Dose: 40 mg Silver Sulfadiazine (Silver Sulfadiazine) 0 gm TP Q8H [facility] Last Admin: 02/27/17 08:34 Dose: Not Given Spironolactone (Aldactone) 25 mg PO BID [facility] Last Admin: 02/27/17 09:26 Dose: 25 mg Tiotropium [place] (Spiriva) 18 mcg IH DAILY [facility] Last Admin: 02/27/17 09:33 Dose: 18 mcg - Labs Labs: 02/27/17 07:00 02/27/17 07:00 PT 19.4 Seconds (9.9-11.8) H 02/25/17 07:00 INR 1.80 (0.93-1.08) H 02/25/17 07:00 APTT 45.8 Seconds (23.7-30.8) H 02/15/17 18:25 - Constitutional Appears: Non-toxic, No Acute Distress - Extremities Exam Additional comments: BL lower ext exam: Vasc: DP pulses are palpable bl, PT pulses faintly palpable bl, skin temp runs warm to cool bl, cap refill < 4 sec to all digits, +4 pitting edema noted to feet and lower legs b/l Derm: no open lesions, no erythema Ortho: diffuse tenderness noted to anterior aspect of shins bl - Neurological Exam Neurological Exam: Alert, Awake, Oriented x3 - Psychiatric Exam Psychiatric exam: Normal Affect, Normal Mood Assessment and Plan - Assessment and Plan (Free Text) Assessment: 71 year old female pt with resolved right foot pain. Plan: Pt S&E at bedside with Dr. Hsieh present Chart labs and vitals reviewed prevalon offloading boots ordered for patient, to wear at all times while in bed Stable per podiatry will follow <Maria Isabel Hsieh - Last Filed: 02/27/17 19:47> Objective - Vital Signs/Intake and Output Vital Signs (last 24 hours): Temp Pulse Resp BP Pulse Ox 97.5 F L 77 20 85/47 L 100 02/27/17 17:27 02/27/17 17:27 02/27/17 17:27 02/27/17 17:27 02/27/17 17:27 - Medications Medications: Current Medications Albuterol/Ipratropium (Duoneb 3 Mg/0.5 Mg (3 Ml) Ud) 2.5 ml IH Q2 PRN PRN Reason: SOB Last Admin: 02/16/17 04:24 Dose: 2.5 ml Betamethasone/Clotrimazole (Lotrisone) 0 gm TOP BID [facility] Last Admin: 02/27/17 18:26 Dose: 1 applic Budesonide (Pulmicort Respules) 1 mg IH BIDRESP [facility] Last Admin: 02/27/17 19:17 Dose: Not Given Cyclobenzaprine HCl (Flexeril) 10 mg PO DAILY [facility] Last Admin: 02/27/17 09:26 Dose: 10 mg Digoxin (Lanoxin) 0.25 mg PO 1400 [facility] Last Admin: 02/27/17 13:59 Dose: 0.25 mg Diltiazem HCl (Cardizem Cd) 180 mg PO DAILY [facility] Last Admin: 02/27/17 09:26 Dose: 180 mg Docusate Sodium (Colace) 100 mg PO BID [facility] Last Admin: 02/27/17 17:56 Dose: 100 mg Furosemide (Lasix) 40 mg IVP Q12 [facility] Last Admin: 02/27/17 10:48 Dose: 40 mg Guaifenesin (Robitussin) 100 mg PO Q4H PRN PRN Reason: Cough Last Admin: 02/18/17 02:39 Dose: 100 mg Meropenem 1g/NS 100mL IVPB (Meropenem 1g/Ns 100ml Ivpb) 1 gm in 100 mls @ 100 mls/hr IVPB Q8 [facility] PRN Reason: Protocol Stop: 03/01/17 14:01 Last Admin: 02/27/17 13:59 Dose: 100 mls/hr Insulin Human Regular (Humulin R High) 0 units SC ACHS [facility] PRN Reason: Protocol Last Admin: 02/27/17 17:56 Dose: 4 units Metformin HCl (Glucophage) 1,000 mg PO BID [facility] Last Admin: 02/27/17 17:56 Dose: 1,000 mg Methylprednisolone (Medrol) 4 mg PO BID [facility] Last Admin: 02/27/17 17:56 Dose: 4 mg Pantoprazole Sodium (Protonix Ec Tab) 40 mg PO 0600,1800 [facility] Last Admin: 02/27/17 17:56 Dose: 40 mg Silver Sulfadiazine (Silver Sulfadiazine) 0 gm TP Q8H [facility] Last Admin: 02/27/17 18:27 Dose: Not Given Spironolactone (Aldactone) 25 mg PO BID [facility] Last Admin: 02/27/17 18:26 Dose: Not Given Tiotropium [place] (Spiriva) 18 mcg IH DAILY [facility] Last Admin: 02/27/17 09:33 Dose: 18 mcg - Labs Labs: 02/27/17 07:00 02/27/17 07:00 PT 19.4 Seconds (9.9-11.8) H 02/25/17 07:00 INR 1.80 (0.93-1.08) H 02/25/17 07:00 APTT 45.8 Seconds (23.7-30.8) H 02/15/17 18:25 Attending/Attestation - Attestation I have personally seen and examined this patient.: Yes I have fully participated in the care of the patient.: Yes I have reviewed all pertinent clinical information, including history, physical exam and plan: Yes
--- NOTE | 2017-02-27 14:30 | CP.PCM.PN ---
Subjective - Date & Time of Evaluation Date of Evaluation: 02/27/17 Time of Evaluation: 11:05 - Subjective Subjective: Comfortable, not in distress, afebrile. Objective - Vital Signs/Intake and Output Vital Signs (last 24 hours): Temp Pulse Resp BP Pulse Ox 97.5 F L 83 20 106/51 L 99 02/27/17 08:06 02/27/17 08:06 02/27/17 08:06 02/27/17 08:06 02/27/17 08:06 Intake and Output: 02/27/17 02/27/17 06:59 18:59 Intake Total 730 Balance 730 - Medications Medications: Current Medications Albuterol/Ipratropium (Duoneb 3 Mg/0.5 Mg (3 Ml) Ud) 2.5 ml IH Q2 PRN PRN Reason: SOB Last Admin: 02/16/17 04:24 Dose: 2.5 ml Betamethasone/Clotrimazole (Lotrisone) 0 gm TOP BID ON LICENSE OF [facility] Last Admin: 02/26/17 17:29 Dose: 1 applic Budesonide (Pulmicort Respules) 1 mg IH BIDRESP ON LICENSE OF [facility] Last Admin: 02/27/17 08:00 Dose: 1 mg Cyclobenzaprine HCl (Flexeril) 10 mg PO DAILY ON LICENSE OF [facility] Last Admin: 02/26/17 09:40 Dose: 10 mg Digoxin (Lanoxin) 0.25 mg PO 1400 ON LICENSE OF [facility] Last Admin: 02/26/17 13:13 Dose: 0.25 mg Diltiazem HCl (Cardizem Cd) 180 mg PO DAILY ON LICENSE OF [facility] Last Admin: 02/26/17 09:40 Dose: 180 mg Docusate Sodium (Colace) 100 mg PO BID RONI Last Admin: 02/26/17 17:29 Dose: 100 mg Furosemide (Lasix) 40 mg IVP Q12 ON LICENSE OF [facility] Last Admin: 02/26/17 22:08 Dose: 40 mg Guaifenesin (Robitussin) 100 mg PO Q4H PRN PRN Reason: Cough Last Admin: 02/18/17 02:39 Dose: 100 mg Meropenem 1g/NS 100mL IVPB (Meropenem 1g/Ns 100ml Ivpb) 1 gm in 100 mls @ 100 mls/hr IVPB Q8 RONI PRN Reason: Protocol Stop: 03/01/17 14:01 Last Admin: 02/27/17 05:03 Dose: 100 mls/hr Insulin Human Regular (Humulin R High) 0 units SC ACHS ON LICENSE OF [facility] PRN Reason: Protocol Last Admin: 02/26/17 21:50 Dose: Not Given Metformin HCl (Glucophage) 1,000 mg PO BID ON LICENSE OF [facility] Last Admin: 02/26/17 17:29 Dose: 1,000 mg Methylprednisolone (Medrol) 4 mg PO BID ON LICENSE OF [facility] Pantoprazole Sodium (Protonix Ec Tab) 40 mg PO 0600,1800 ON LICENSE OF [facility] Last Admin: 02/27/17 05:04 Dose: 40 mg Silver Sulfadiazine (Silver Sulfadiazine) 0 gm TP Q8H ON LICENSE OF [facility] Last Admin: 02/27/17 08:34 Dose: Not Given Spironolactone (Aldactone) 25 mg PO BID ON LICENSE OF [facility] Last Admin: 02/26/17 17:29 Dose: 25 mg Tiotropium [place] (Spiriva) 18 mcg IH DAILY ON LICENSE OF [facility] Last Admin: 02/26/17 09:41 Dose: 18 mcg - Labs Labs: 02/27/17 07:00 02/27/17 07:00 PT 19.4 Seconds (9.9-11.8) H 02/25/17 07:00 INR 1.80 (0.93-1.08) H 02/25/17 07:00 APTT 45.8 Seconds (23.7-30.8) H 02/15/17 18:25 - Constitutional Appears: Non-toxic, No Acute Distress - Head Exam Head Exam: NORMAL INSPECTION - ENT Exam ENT Exam: Mucous Membranes Moist - Neck Exam Neck Exam: absent: Meningismus - Respiratory Exam Respiratory Exam: Decreased Breath Sounds - Cardiovascular Exam Cardiovascular Exam: +S1, +S2 - GI/Abdominal Exam GI & Abdominal Exam: Soft. absent: Tenderness Assessment and Plan - Assessment and Plan (Free Text) Plan: Assessment consider right thigh wound infection with ESBL-producing E. coli history of urinary tract infection COPD CHF morbid obesity with BMI 70 history of right leg surgery and breast surgery chronic ulcers on the lower extremities Plan continue Merrem day 6 and will continue to monitor clinically - will follow up surgery plans; should target 7-10 days of antibiotics
--- NOTE | 2017-02-28 02:11 | PN ---
DATE: Maria Isabel Bowden is seen on the floor. Her swelling on the legs is markedly improved. The holster is on the saddle bags, pretty much unchanged. Edema still present. We will follow conservatively. Dennis Castillo MD
[2017-02-28] MEDS: Pantoprazole 40 mg EC Tab PO SCH ×2 (06:00→17:59)
[2017-02-28 08:26] LABS: HEMOGLOBIN 12.9 gm/dL (12.0-16.0); MEAN CELL VOLUME 85.7 fL (80.0-105.0); MEAN CORPUSCULAR HEMOGLOBIN 27.9 pg (25.0-35.0); MEAN CORPUSCULAR HGB CONC 32.6 g/dl (31.0-37.0); MEAN PLATELET VOLUME 10.6 fl (7.0-11.0); RBC 4.62 10^6/uL (3.5-6.1); RED CELL DISTRIBUTION WIDTH 16.1 % (11.5-14.5); WHITE BLOOD COUNT 11.6 10^3/ul (4.5-11.0)
[2017-02-28] MEDS: Insulin Reg-HIGH-Coverage SC SCH ×4 (08:28→22:56)
[2017-02-28 08:34] LABS: ALB/GLOB RATIO 1.1 (1.1-1.8); ALBUMIN 3.3 g/dL (3.0-4.8); ALT/SGPT 49 U/L (7-56); AST/SGOT 38 U/L (15-39); BLOOD UREA NITROGEN 27 mg/dL (7-21); CALCIUM 8.7 mg/dL (8.4-10.5); GFR AFRICAN-AMERICAN > 60; GFR NON-AFRICAN AMERICAN > 60; INR 1.42 (0.93-1.08); PROTHROMBIN TIME 15.3 Seconds (9.9-11.8)
[2017-02-28] MEDS: Budesonide 0.5 mg/2 ml Inhal Susp UD IH SCH ×2 (10:10→22:03)
[2017-02-28] MEDS: Tiotropium 18 mcg Cap For Inhalation IH SCH (11:32)
[2017-02-28] MEDS: diltiaZEM 180 mg/24 Hours CD Cap PO SCH (11:33)
[2017-02-28] MEDS: SILVER SULFADIAZINE 1% TP SCH ×2 (11:35→15:46)
[2017-02-28] MEDS: Clotrimazole/Betamethasone Cream(15 gm) TOP SCH ×2 (11:35→17:52)
--- NOTE | 2017-02-28 12:05 | PN ---
SUBJECTIVE: Maria Isaebl is resting comfortable in bed. is with her. Dressing of the bilateral wounds, they are clean. They are likely grade I to II, some blood, and there is also lots of oozing. She is diuresing very well. She is on IV antibiotics. She postponed one antibiotic this morning because of blood pressure was 98, now it is 110, and she will take the antibiotics.. PHYSICAL EXAMINATION GENERAL: She is eating well. No chest pain, no shortness of breath, and no abdominal pain. She is feeling much better since the diuresis and antibiotics VITAL SIGNS: She has a temperature of 98.7, pulse of 86, blood pressure of 110/56, respiratory rate of 20, and 99% saturation on room air. HEENT: Head is atraumatic and normocephalic. Throat is moist. NECK: Supple. CARDIOPULMONARY: Heart is regular rate. LUNGS: Decreased breath sounds, but clear. ABDOMEN: Soft, morbidly obese, and nontender. Positive bowel sounds. No guarding and no rebound. EXTREMITIES: Have diuresed greatly. They are half the size when they came in, still quite swollen though. Bilateral thighs have multiple ulcers, but clean with oozing. LABORATORY DATA: She has sodium of 135, potassium is 4, BUN is 27, and creatinine is 0.6. GFR is greater than 60, sugars 153, calcium is 8.7, total bilirubin is 0.8, AST is 38, ALT is 49, alkaline phosphatase is 65, and total protein is 6.2. White count is down to 11.6, the best it has been since she is being here, the antibiotics are working nicely, hemoglobin is 12.9, hematocrit is 39.6, and platelets are 208. MEDICATIONS: She is currently on: 1. Spironolactone. 2. Cardizem. 3. Colace. 4. DuoNeb. 5. Flexeril. 6. Glucophage. 7. Insulin. 8. Lanoxin. 9. Lasix. 10. Lotrisone. 11. Medrol 4 mg twice a day. 12. Merrem IV. 13. Protonix. 14. Pulmicort. 15. Robitussin. 16. Silvadene cream. 17. Spiriva. ASSESSMENT AND PLAN: She is being seen by Surgery, Infectious Disease, Podiatry, and Cardiology. On 03/01/2017, I will stop the methylprednisolone or I will decrease it to 2 mg twice a day today. If she is improving, check her labs tomorrow, then will stop hopefully the prednisone tomorrow. She is here for multiple problems; chronic obstructive pulmonary disease, bilateral thigh ulcers, congestive heart failure, atrial fibrillation, morbidly obese, and diabetes. Alan Mann DO
[2017-02-28] MEDS: Digoxin 250 mcg (0.25 mg) Tab PO SCH (14:24)
[2017-02-28] MEDS: Meropenem 1g/NS 100mL IVPB 1 GM/100 ML PIGGYBACK IVPB SCH (15:46)
--- NOTE | 2017-02-28 18:43 | PN ---
DATE: 02/28/2017 SUBJECTIVE: The patient is in bed, in no acute distress, was seen early this morning. She had been refusing the antibiotics. She states that it may be causing her nausea. PHYSICAL EXAMINATION: VITAL SIGNS: Temperature is 98, blood pressure is 120/70, respiratory rate of 20, and heart rate of 86. HEENT: Unremarkable. NECK: Supple. LUNGS: Decreased breath sounds. HEART: Normal S1 and S2. ABDOMEN: Soft. LABORATORY DATA: Reveals a white count of 11,000; hemoglobin of 12; and platelets of 208. BUN of 27 and creatinine of 0.6. Urinalysis is noted. ASSESSMENT AND PLAN: This is a 71-year-old female with a right thigh wound infection with ESBL-producing Escherichia coli, history of urinary tract infection on day #7 of meropenem, should complete 7 to 10 days. We will follow with you. The patient is now off of the meropenem. Santy Fernandez MD
[2017-02-28] MEDS: Silver Sulfadiazine 1% Cream (400 gm) TOP SCH (21:45)
--- NOTE | 2017-02-28 23:54 | PN ---
DATE: 02/28/2017 SUBJECTIVE: The patient's condition is unchanged. PHYSICAL EXAMINATION: VITAL SIGNS: Blood pressure is 103/63, the heart rate is in the 80s. NECK: Negative JVD. LUNGS: Decreased breath sounds. HEART: Reveal S1 and S2. EXTREMITIES: Chronic edema. LABORATORY DATA: Potassium is 4.0, hemoglobin is 12.9. IMPRESSION: 1. Recurrent right-sided congestive heart failure. 2. Morbid obesity. 3. Diabetes mellitus. 4. Chronic edema with cellulitis. 5. Sedentary lifestyle. PLAN: Given these findings, we will continue her diuretics. Disposition is pending. Ryan Turk MD
[2017-03-01] MEDS: Budesonide 0.5 mg/2 ml Inhal Susp UD IH SCH (08:05)
[2017-03-01 08:11] LABS: HEMOGLOBIN 13.2 gm/dL (12.0-16.0); MEAN CELL VOLUME 85.8 fL (80.0-105.0); MEAN CORPUSCULAR HEMOGLOBIN 27.6 pg (25.0-35.0); MEAN CORPUSCULAR HGB CONC 32.2 g/dl (31.0-37.0); RBC 4.78 10^6/uL (3.5-6.1); RED CELL DISTRIBUTION WIDTH 16.1 % (11.5-14.5)
[2017-03-01 08:25] LABS: ALB/GLOB RATIO 1.1 (1.1-1.8); ALBUMIN 3.4 g/dL (3.0-4.8); ALT/SGPT 47 U/L (7-56); AST/SGOT 19 U/L (15-39); BLOOD UREA NITROGEN 27 mg/dL (7-21); CALCIUM 8.8 mg/dL (8.4-10.5); GFR AFRICAN-AMERICAN > 60; GFR NON-AFRICAN AMERICAN > 60
[2017-03-01] MEDS: Insulin Reg-HIGH-Coverage SC SCH ×4 (09:02→22:20)
[2017-03-01] MEDS: diltiaZEM 180 mg/24 Hours CD Cap PO SCH (09:03)
[2017-03-01] MEDS: Tiotropium 18 mcg Cap For Inhalation IH SCH (09:04)
[2017-03-01] MEDS: Silver Sulfadiazine 1% Cream (400 gm) TOP SCH ×2 (09:06→17:29)
[2017-03-01] MEDS: Clotrimazole/Betamethasone Cream(15 gm) TOP SCH ×2 (09:06→17:29)
[2017-03-01] MEDS ORDERED: Magnesium Hydroxide Susp 30 ml UD PO ONE (10:00)
[2017-03-01] MEDS: Digoxin 250 mcg (0.25 mg) Tab PO SCH (13:59)
[2017-03-01 14:00] VITALS: PULSE 80
--- NOTE | 2017-03-01 14:49 | PN ---
SUBJECTIVE: Seen her in bed. is taking care of her. She slept well last night and no complaints, except every now and then the antibiotics IV bother her stomach. She has diuresed greatly. She has lost at least 100 pounds of water. She is still on IV antibiotics for bilateral thigh infection and the skin. I discussed that with Infectious Disease this morning. We could probably discharge her tomorrow to home. She is on Aldactone, Cardizem, Colace, DuoNeb, Flexeril, Glucophage, insulin, Lanoxin, and Lasix which will be changed to p.o. tomorrow, Lotrisone and Medrol, which she could stop tomorrow. Protonix, Pulmicort, Robitussin, Silvadene, Spiriva, and now she is off Merrem. I will work to get her discharged in the next 24 hours. I will discuss that with the nursing because she is morbidly, morbidly obese. It might take 24 hours to arrange this discharge. PHYSICAL EXAMINATION VITAL SIGNS: Temperature 97.9, pulse 89, blood pressure 124/73, respiratory rate 20, and 100% O2 saturation on room air. HEENT: Head is atraumatic and normocephalic. Throat is moist. NECK: Supple. CARDIOPULMONARY: Heart is regular rate. LUNGS: Decreased breath sounds bilaterally, but clear to auscultation. ABDOMEN: Morbidly, morbidly obese and nontender. No guarding. No rebound. EXTREMITIES: Still very edematous, but half then size. Bilateral thighs have ulcers on them, which are clean and still oozing, she has a lot more oozing to go. LABORATORY DATA: She has white count 11.6, hemoglobin of 12.9, and platelets of 208. She has sodium of 135, potassium is 4 yesterday, and last blood sugar was 151. Last INR was 1.42. ASSESSMENT AND PLAN: Goals to work on discharge planning. She need to have department arrange for discharge home. I will work on getting her out tomorrow. It might take a whole day to arrange this, I will discuss this with the case management. She was here for multiple reasons; chronic obstructive pulmonary disease, bilateral thigh ulcers that are infected and wounds, congestive heart failure, atrial fibrillation, morbid obesity, and diabetes. Alan Mnan DO [facility] # [id number] [facility]
[2017-03-01] MEDS: Pantoprazole 40 mg EC Tab PO SCH (17:12)
[2017-03-02] MEDS: Silver Sulfadiazine 1% Cream (400 gm) TOP SCH ×2 (02:00→10:39)
--- NOTE | 2017-03-02 03:59 | PN ---
DATE OF SERVICE: 03/01/2017 SUBJECTIVE: The patient is seen in room 368, bed 2 early this morning. No fever and chills. No nausea. PHYSICAL EXAMINATION VITAL SIGNS: Temperature is 98, blood pressure is 101/70, and respiratory rate of 16. HEENT: Unremarkable. NECK: Supple. LUNGS: Decreased breath sounds. HEART: Normal S1 and S2. ABDOMEN: Soft and nontender. LABORATORY DATA: Reveals white count of 12,000, hemoglobin of 13. Chemistries are noted. ASSESSMENT AND PLAN: This is a 71-year-old with morbid obesity, a BMI of 70. Right thigh wound infection with ESBL-producing Escherichia coli and history of urinary tract infection, has completed meropenem therapy, now off of antibiotics. Continue local wound care. Overall prognosis is poor. Santy Fernandez MD
[2017-03-02] MEDS: Pantoprazole 40 mg EC Tab PO SCH (05:14)
[2017-03-02] MEDS: Budesonide 0.5 mg/2 ml Inhal Susp UD IH SCH ×2 (08:07→08:10)
[2017-03-02 10:06] VITALS: BP 109/70; PULSE 68; RESP 20; TEMP 99; O2SAT 97
[2017-03-02] MEDS: diltiaZEM 180 mg/24 Hours CD Cap PO SCH (10:18)
[2017-03-02] MEDS: Tiotropium 18 mcg Cap For Inhalation IH SCH (10:18)
[2017-03-02] MEDS: Clotrimazole/Betamethasone Cream(15 gm) TOP SCH ×2 (10:24→10:40)
[2017-03-02] MEDS: Insulin Reg-HIGH-Coverage SC SCH ×2 (10:38→12:58)
--- NOTE | 2017-03-02 14:24 | PN ---
DATE: 03/02/2017 SUBJECTIVE: The patient is sitting in bed without shortness of breath. She is feeling well. PHYSICAL EXAMINATION: VITAL SIGNS: Blood pressure is 110/70 and heart rate is in the 90s. NECK: Negative JVD. LUNGS: Without rales. HEART: S1 and S2. EXTREMITIES: Chronic edema. LABORATORY DATA: Hemoglobin is 13.2 and white count is 12. Chemistries, glucose is 108. IMPRESSION: 1. Recurrent edema in the lower extremities. 2. Cellulitis. 3. Morbid obesity. 4. Diabetes mellitus. 5. Resolution of dyspnea. PLAN: Given these findings, the patient is doing well. I agree with her discharge today. Ryan Turk MD
--- NOTE | 2017-03-02 21:40 | PN ---
DATE: 03/02/2017 SUBJECTIVE: The patient was seen earlier this morning in room 368, bed 2. No fevers and no chills. No nausea and no vomiting. No chest pain. PHYSICAL EXAMINATION: VITAL SIGNS: Temperature is 98, blood pressure is 109/70, respiratory rate of 16. HEENT: Unremarkable. NECK: Supple. LUNGS: Decreased breath sounds. HEART: Normal S1 and S2. ABDOMEN: Soft, nontender. LABORATORY DATA: Laboratory examination reveals a white count of 12,000, hemoglobin of 13. Chemistries reveals a BUN of 27 and creatinine of 0.6. Cultures are noted. Dr. Ryan Turk's note is reviewed. ASSESSMENT AND PLAN: The patient is a 71-year-old female with morbid obesity with a BMI of 70, with extended-spectrum beta-lactamases producing Escherichia coli producing right thigh soft tissue infection, treated adequately with meropenem, currently *------* with antibiotic. The patient is at very high risk of developing new infections due to her morbid obesity and overall prognosis is poor. Santy Fernandez MD
--- NOTE | 2017-03-03 04:43 | DS ---
HOSPITAL COURSE: She is very well here in the hospital. She was diuresed tremendously. She must have lost over 100 pounds of fluid. The thighs are still oozing some, but she is off IV antibiotics right now and she has no need for any antibiotics at this time. She will be sent home today. DISCHARGE MEDICATIONS: 1. Spironolactone. 2. Cardizem. 3. Colace. 4. DuoNeb. 5. Flexeril. 6. Glucophage. 7. Lanoxin.. 8. Lasix twice a day.. 9. Lotrisone cream. 10. She will be off the Medrol. 11. Protonix. 12. Pulmicort. 13. Robitussin. 14. Silvadene cream. 15. Spiriva. PHYSICAL EXAMINATION: VITAL SIGNS: Today, 98.2 temperature, 91 pulse, 101/66 blood pressure, 18 respiratory rate, 100% O2 saturation on nasal cannula. HEENT: Head is atraumatic and normocephalic. HEART: Regular rate. LUNGS: Decreased breath sounds, but clear. ABDOMEN: Soft, obese, nontender, and positive bowel sounds. EXTREMITIES: Still swollen; although she lost half her size. LABORATORY DATA: She has a 12 white count, 13.2 hemoglobin, 41 hematocrit with 201 platelets. Sodium 135, potassium 4.3, blood sugar is 108, calcium is 8.8. AST is 19, ALT is 47, alkaline phosphatase 7, total protein 6.5. PLAN: She will be discharge today. She was here for numerous reasons. She had bilateral thigh wounds and infection. She had congestive heart failure, edema, atrial fibrillation, morbid obesity, diabetes and chronic obstructive pulmonary disease. I will see her in a house call in the next 2 weeks. Alan Mann DO
== END 2017-03-02 16:00 | disposition home or self-care (01) | DRG 190 ==
LOC: ED 18:02 → ERH 23:02 → 3RNO 02-16 01:42 → OBSVTOIN 02-16 07:32 → 3RNO 02-18 06:17
PROVIDERS: ADMIT Hospitalist; ATTEND Family Medicine
DX: J44.1 Chronic obstructive pulmonary disease with (acute) exacerbation (principal); I50.21 Acute systolic (congestive) heart failure; I27.2 Other secondary pulmonary hypertension; L03.115 Cellulitis of right lower limb; E11.622 Type 2 diabetes mellitus with other skin ulcer; L03.116 Cellulitis of left lower limb; Z68.45 Body mass index [BMI] 70 or greater, adult; L97.129 Non-pressure chronic ulcer of left thigh with unspecified severity; L97.119 Non-pressure chronic ulcer of right thigh with unspecified severity; E11.628 Type 2 diabetes mellitus with other skin complications; I48.2 Chronic atrial fibrillation; K21.9 Gastro-esophageal reflux disease without esophagitis; E66.01 Morbid (severe) obesity due to excess calories; Z16.12 Extended spectrum beta lactamase (ESBL) resistance; I10 Essential (primary) hypertension; B96.20 Unspecified Escherichia coli [E. coli] as the cause of diseases classified elsewhere; J45.909 Unspecified asthma, uncomplicated; R68.0 Hypothermia, not associated with low environmental temperature; Z87.440 Personal history of urinary (tract) infections; Z74.01 Bed confinement status; Z79.01 Long term (current) use of anticoagulants; Z79.4 Long term (current) use of insulin

== ENCOUNTER 2018-04-10 16:21 | Inpatient (IN) | payer MEDICARE ==
[2018-04-10 16:21] VITALS: BMI 69.5
[2018-04-10] MEDS ORDERED: Albuterol-Ipratrop 3 mg / 0.5 (3 ml) UD IH STA (16:38)
[2018-04-10 16:52] LABS: VENOUS BLOOD GAS BASE EXCESS 3.4 mmol/L (0.0-2.0); VENOUS BLOOD GAS PO2 48 mm/Hg (30-55); VENOUS BLOOD PH 7.35 (7.32-7.43)
[2018-04-10 17:03] LABS: BASO # 0.04 K/mm3 (0.0-2.0); BASO % 0.3 % (0.0-3.0); EOS # 0.2 (0.0-0.7); GRAN # 9.8 (1.4-6.5); GRAN % 82.7 % (50.0-68.0); HEMOGLOBIN 11.2 g/dL (12.0-16.0); LYMPH % 8.3 % (22.0-35.0); MEAN CELL VOLUME 83.6 fl (80.0-105.0); MEAN CORPUSCULAR HEMOGLOBIN 26.6 pg (25.0-35.0); MEAN CORPUSCULAR HGB CONC 31.8 g/dl (31.0-37.0); MONO # 0.8 (0.1-0.6); MONO % 6.7 % (1.0-6.0); RBC 4.21 10^6/uL (3.5-6.1); RED CELL DISTRIBUTION WIDTH 16.3 % (11.5-14.5); WHITE BLOOD COUNT 11.9 10^3/ul (4.5-11.0)
--- NOTE | 2018-04-10 17:21 | RAD ---
Date of service: 04/10/2018 HISTORY: sob COMPARISON: Chest radiograph dated 02/16/2017. FINDINGS: LUNGS: Pulmonary vascular congestion. No focal consolidation. PLEURA: No significant pleural effusion identified, no pneumothorax apparent. CARDIOVASCULAR: Cardiomediastinal silhouette stably enlarged. OSSEOUS STRUCTURES: Unchanged. VISUALIZED UPPER ABDOMEN: Normal. OTHER FINDINGS: None. IMPRESSION: Pulmonary vascular congestion. No focal consolidation or pleural effusion.
[2018-04-10 17:44] LABS: ALBUMIN 3.6 g/dL (3.0-4.8); ALT/SGPT 30 U/L (7-56); AST/SGOT 19 U/L (14-36); BLOOD UREA NITROGEN 19 mg/dL (7-21); CALCIUM 8.8 mg/dL (8.4-10.5); GFR NON-AFRICAN AMERICAN > 60; LIPASE 58 U/L (23-300)
--- NOTE | 2018-04-10 17:51 | ED PDOC ---
Arrival/HPI - General Chief Complaint: Shortness Of Breath Time Seen by Provider: 04/10/18 16:25 Historian: Patient - History of Present Illness Narrative History of Present Illness (Text): 04/10/18 17:55 A 72 year old female, whose past medical history includes angina, PVD, congestive heart failure, A-Fib, peripheral edema, chronic obstructive pulmonary disease, pneumonia, emphysema, asthma, menopause, septicemia, diabetes type 2, presents to the emergency department complaining of shortness of breath for 2 days. Patient reports symptom feels similar to chronic obstructive pulmonary disease symptoms. Per EMS, patient received 125 mg of SOLU -Medrol and duoneb on route. Patient notes also experiencing congestion, rhinorrhea, but denies fever, chills, worsening leg swelling, sore throat, neck stiffness, chest pain, abdominal pain, or any other complaints at this time. Past Medical History - Provider Review Nursing Documentation Reviewed: Yes - Infectious Disease Hx of Infectious Diseases: None - Tetanus Immunization Tetanus Immunization: Unknown - Reproductive Menopause: Yes - Cardiac Hx Cardiac Disorders: Yes (lymphedema) Hx Angina: Yes Hx Atrial Fibrillation: Yes (chronic ) Hx Cardiac Arrhythmia: Yes Hx Congestive Heart Failure: Yes Hx Peripheral Edema: Yes Hx Peripheral Vascular Disease: Yes - Pulmonary Hx Respiratory Disorders: Yes (using 02 at home) Hx Asthma: Yes Hx Chronic Obstructive Pulmonary Disease (COPD): Yes Hx Emphysema: Yes Hx Pneumonia: Yes - Neurological Hx Neurological Disorder: No - HEENT Hx HEENT Disorder: Yes (glasses) - Renal Hx Renal Disorder: No - Endocrine/Metabolic Hx Endocrine Disorders: Yes Hx Diabetes Mellitus Type 2: Yes - Hematological/Oncological Hx Blood Disorders: Yes (SEPTICEMIA) - Integumentary Hx Dermatological Disorder: Yes Other/Comment: pt is obese, right outer thigh skin openings healed, redness, hard brown dry skin, dimpling to left thigh, pt c/o that she, sometimes has drainage from left thigh. both lower legs and feet dry skin. redness and discoloration to right abd fold healed, pt unable to turn in bed to assess skin on back, ble +4 pitting edema redness - Musculoskeletal/Rheumatological Hx Falls: No - Gastrointestinal Hx Gastrointestinal Disorders: Yes (benign mass removed from abd 30 yrs ago) - Genitourinary/Gynecological Hx Genitourinary Disorders: Yes Hx Incontinence: Yes (urine and stool) Hx Urinary Tract Infection: Yes - Psychiatric Hx Psychophysiologic Disorder: No Hx Substance Use: No - Surgical History Hx Cardiac Catheterization: Yes Other/Comment: cardiac cath 2006, picc line, sx to right leg for an infection - Anesthesia Hx Anesthesia: Yes - Suicidal Assessment Feels Threatened In Home Enviroment: No Family/Social History - Physician Review Nursing Documentation Reviewed: Yes Family/Social History: No Known Family HX Smoking Status: Never Smoked Hx Alcohol Use: No Hx Substance Use: No Hx Substance Use Treatment: No Allergies/Home Meds Allergies/Adverse Reactions: Allergies No Known Allergies Allergy (Verified 02/17/17 22:58) Home Medications: Home Meds Medication Instructions Recorded Confirmed Benzonatate 200 mg PO BID 04/10/18 04/10/18 Diltiazem HCl [Cartia Xt] 0 mg PO DAILY 04/10/18 04/10/18 Potassium Gluconate [Potassium] 20 mg PO BID 04/10/18 04/10/18 Promethazine DM [Phenergan DM 0 ml PO PRN 04/10/18 04/10/18 Syrup] SITagliptin [Januvia] 50 mg PO DAILY 04/10/18 04/10/18 Warfarin [Coumadin] 4.5 mg PO DAILY 04/10/18 04/10/18 predniSONE [predniSONE Tab] 0 mg PO DAILY 04/10/18 04/10/18 Review of Systems - Review of Systems Constitutional: Other. absent: Fevers, Night Sweats Eyes: Normal ENT: Rhinorrhea, Sinus Congestion. absent: Sore Throat, Other (no neck stiffness) Respiratory: SOB Cardiovascular: Normal. absent: Chest Pain Gastrointestinal: Normal. absent: Abdominal Pain Genitourinary Female: Normal Musculoskeletal: Normal Skin: Normal Neurological: Normal Endocrine: Normal Hemo/Lymphatic: Normal Psychiatric: Normal Physical Exam Vital Signs Reviewed: Yes Vital Signs Temp Pulse Resp BP Pulse Ox 04/10/18 19:08 98.1 F 68 22 120/57 L 97 04/10/18 18:58 120/57 L 04/10/18 16:22 98.1 F 81 24 116/65 89 L Temperature: Afebrile Blood Pressure: Normal Pulse: Regular Respiratory Rate: Normal Appearance: Positive for: Well-Appearing, Non-Toxic, Comfortable, Other (mildly obese) Pain Distress: None Mental Status: Positive for: Alert and Oriented X 3 - Systems Exam Head: Present: Atraumatic, Normocephalic Pupils: Present: PERRL Extroacular Muscles: Present: EOMI Conjunctiva: Present: Normal Mouth: Present: Moist Mucous Membranes Neck: Present: Normal Range of Motion Respiratory/Chest: Present: Good Air Exchange, Wheezes (mild wheezing bilaterally). No: Respiratory Distress, Accessory Muscle Use, Decreased Breath Sounds Cardiovascular: Present: Regular Rate and Rhythm, Normal S1, S2. No: Murmurs Abdomen: No: Tenderness, Distention, Peritoneal Signs Back: Present: Normal Inspection Upper Extremity: Present: Normal Inspection. No: Cyanosis, Edema Lower Extremity: Present: Normal Inspection. No: Edema Neurological: Present: GCS=15, CN II-XII Intact, Speech Normal Skin: Present: Warm, Dry, Normal Color. No: Rashes Psychiatric: Present: Alert, Oriented x 3, Normal Insight, Normal Concentration Medical Decision Making ED Course and Treatment: 04/10/18 18:00 Impression: 72 year old female with past medical history of chronic obstructive pulmonary disease (on 1.5 L home O2), complaining of shortness of breath, consistent chronic obstructive pulmonary disease. Well appearing on exam, w/ mild wheezes. Will seek labs and imaging, likely admission for patient. Plan: -- EKG -- Duoneb -- Venous Blood Gas -- Chest X-ray -- Labs -- Reassess and disposition Prior Visits: Notes and results from previous visits were reviewed. Progress Notes: 04/10/2018 17:19 Chest X-ray FINDINGS: LUNGS: Pulmonary vascular congestion. No focal consolidation. PLEURA: No significant pleural effusion identified, no pneumothorax apparent. CARDIOVASCULAR: Cardiomediastinal silhouette stably enlarged. OSSEOUS STRUCTURES: Unchanged. VISUALIZED UPPER ABDOMEN: Normal. OTHER FINDINGS: None. IMPRESSION: Pulmonary vascular congestion. No focal consolidation or pleural effusion. Dictator: Ralph Wise MD Labs reviewed: BNP 3k, will give lasix appreciate consult w/ Dr. Mann: to admit to his service. - Lab Interpretations Lab Results: 04/10/18 16:35 04/10/18 17:00 Lab Results 04/10/18 17:00: TSH 3rd Generation 4.82 H 04/10/18 17:00: Sodium 143, Chloride 102, Potassium 4.1, Carbon Dioxide 32, Anion Gap 13, BUN 19, Creatinine 0.7, Est GFR ( Amer) > 60, Est GFR (Non- Af Amer) > 60, Random Glucose 161 H, Calcium 8.8, Magnesium 2.1, Total Bilirubin 0.4, AST 19, ALT 30, Alkaline Phosphatase 70, Troponin I < 0.01, NT- Pro-B Natriuret Pep 3720 H, Total Protein 7.0, Albumin 3.6, Globulin 3.4, Albumin/Globulin Ratio 1.0 L, Lipase 58 04/10/18 16:35: pO2 48, VBG pH 7.35, VBG pCO2 55.0, VBG HCO3 30.4 H, VBG Total CO2 32.1 H, VBG O2 Sat (Calc) 89.0 H, VBG Base Excess 3.4 H, VBG Potassium 5.5 H , Sodium 138.0, Chloride 103.0, Glucose 162 H, Lactate 1.4, FiO2 21.0, Venous Blood Potassium 5.5 H 04/10/18 16:35: WBC 11.9 H, RBC 4.21, Hgb 11.2 L, Hct 35.2 L, MCV 83.6, MCH 26.6 , MCHC 31.8, RDW 16.3 H, Plt Count 261, MPV 11.0, Gran % 82.7 H, Lymph % (Auto) 8.3 L, [place] % (Auto) 6.7 H, Eos % (Auto) 2.0, Baso % (Auto) 0.3, Gran # 9.80 H, Lymph # (Auto) 1.0 L, [place] # (Auto) 0.8 H, Eos # (Auto) 0.2, Baso # (Auto) 0.04 - RAD Interpretation Radiology Orders: 04/10/18 16:39 CHEST PORTABLE [RAD] Stat - Medication Orders Current Medication Orders: Albuterol/Ipratropium (Duoneb 3 Mg/0.5 Mg (3 Ml) Ud) 3 ml IH [id number] RONI Stop: 04/11/18 08:01 Benzonatate (Tessalon Perles) 200 mg PO BID RONI Digoxin (Lanoxin) 0.25 mg PO 1400 RONI Diltiazem HCl (Cardizem Cd) 180 mg PO DAILY RONI Furosemide (Lasix) 40 mg IVP BID RONI Ceftriaxone Sodium (Rocephin 1 Gram Ivpb) 1 gm in 100 mls @ 100 mls/hr IVPB DAILY RONI PRN Reason: Protocol Azithromycin (Zithromax 500mg In Ns) 500 mg in 250 mls @ 167 mls/hr IVPB DAILY RONI PRN Reason: Protocol Insulin Human Regular (Humulin R Low) 0 units SC ACHS RONI PRN Reason: Protocol Levothyroxine Sodium (Synthroid) 25 mcg PO 0600 RONI Pantoprazole Sodium (Protonix Ec Tab) 40 mg PO BID RONI Sitagliptin Phosphate (Januvia) 50 mg PO DAILY RONI Warfarin Sodium (Coumadin) 2.5 mg PO 1800 RONI PRN Reason: Protocol Warfarin Sodium (Coumadin) 2 mg PO 1800 RONI Discontinued Medications Albuterol/Ipratropium (Duoneb 3 Mg/0.5 Mg (3 Ml) Ud) 3 ml IH STAT STA Stop: 04/10/18 16:39 Last Admin: 04/10/18 18:57 Dose: 3 ml Furosemide (Lasix) 40 mg IVP STAT STA Stop: 04/10/18 18:21 Last Admin: 04/10/18 18:58 Dose: 40 mg MAR Blood Pressure Document 04/10/18 18:58 SRE (Rec: 04/10/18 18:58 SRE [id number]) Blood Pressure Blood Pressure (100/60-150/90) 120/57 IVP Administration Document 04/10/18 18:58 SRE (Rec: 04/10/18 18:58 SRE [id number]) Charges for Administration # of IVP Administrations 1 - Scribe Statement The provider has reviewed the documentation as recorded by the Ashly Barraza Provider Scribe Provider Scribe Attestation: All medical record entries made by the Ashly were at my direction and personally dictated by me. I have reviewed the chart and agree that the record accurately reflects my personal performance of the history, physical exam, medical decision making, and the department course for this patient. I have also personally directed, reviewed, and agree with the discharge instructions and disposition. Disposition/Present on Arrival - Present on Arrival Any Indicators Present on Arrival: No History of DVT/PE: No History of Uncontrolled Diabetes: No Urinary Catheter: No History of Decub. Ulcer: No History Surgical Site Infection Following: None - Disposition Have Diagnosis and Disposition been Completed?: Yes Diagnosis: COPD (chronic obstructive pulmonary disease), CHF (congestive heart failure) Disposition: HOSPITALIZED Disposition Time: 17:19 Patient Problems: Current Active Problems Problem Status Onset COPD (chronic obstructive pulmonary disease) Acute Congestive heart failure Acute Condition: GOOD
[2018-04-10 17:55] LABS: B-TYPE NATRIURETIC PEPTIDE 3720 pg/mL (0-450); TROPONIN I < 0.01 ng/mL
[2018-04-10] MEDS ORDERED: Albuterol-Ipratrop 3 mg / 0.5 (3 ml) UD IH SCH (20:00)
[2018-04-10] MEDS: Insulin Reg-LOW-Coverage SC SCH (22:49)
[2018-04-11] MEDS: Levothyroxine 25 MCG TAB PO SCH ×2 (06:00→06:10)
--- NOTE | 2018-04-11 07:11 | HP ---
Copied To: Alan Mann DO Attending MD: Alan Mann DO HISTORY OF PRESENT ILLNESS: I have known Maria Isabel for many years. I do house calls on her. She is bedridden at home. She has recently been on p.o. antibiotics of Vantin, Levaquin, Augmentin, also multiple doses of prednisone. DuoNeb, oxygen and she got very worse, but failed outpatient treatment. She comes in very short of breath. The nurse called me, on 3-4 liters of oxygen, 80% O2 sat at home and she was lethargic. She is a 72-year-old female, morbidly obese with a history of PVD, angina, CHF, AFib, peripheral edema, chronic obstructive pulmonary disease, pneumonia, emphysema, asthma, menopause, septicemia, diabetes, very short of breath. She was given Lasix in the field, on IV Solu-Medrol. She has lymphedema. She weighs over 600 pounds. She has angina, chronic AFib, congestive heart failure, chronic Lasix three times a day, asthma, COPD with oxygen. She wears glasses. She has diabetes. She has had septicemia before, CHF before. She has multiple wounds in bilateral thighs which I have been trying to work with home visiting nurses. They come and they go and is draining. I called on Surgery. I think with the diuresis with IV Lasix, it will help a lot. She also has +4 edema from the toes all the way up to the thighs. She has had a benign abdominal mass removed 30 years ago. She has had urine and had incontinence. She has had urinary tract infections in the past. She has cardiac cath in 2005, PICC line, surgery to the right leg for an infection in the past. FAMILY HISTORY: Diabetes and hypertension in the family. SOCIAL HISTORY: Never smoked. No alcohol. No drugs. ALLERGIES: NO KNOWN DRUG ALLERGIES. MEDICATIONS: She is on benzonatate, Cartia, potassium, Lasix, Januvia, Coumadin, prednisone, Vantin, Phenergan DM, oxygen. She is very lethargic at this time, but alert. She has congestion in the nose. She has shortness of breath. She has chest pain from time to time, but none now. No pressure at this time. She has had it before, but is coughing, wheezing. Skin, multiple wounds on bilateral thighs. She is little anxious. PHYSICAL EXAMINATION: VITAL SIGNS: She has a 98.1 temperature, 81 pulse, 24 respiratory rate, 116/65 blood pressure, 89% O2 sat on 2 liters nasal cannula, came up from 80 at home. GENERAL: She is very toxic looking, uncomfortable, extremely obese and over 600 pounds. Alert and oriented x3 when you can arouse her. HEENT: Head is atraumatic, normocephalic. Extraocular muscles are intact. Pupils equal and react to light. Throat is dry. NECK: Supple. HEART: Regular rate. Normal S1, S2. LUNGS: Decreased breath sounds bilaterally. Wheezing bilaterally. Congestion bilaterally, changes with cough. Some rhonchi and rales. . ABDOMEN: Morbidly, morbidly obese, soft, nontender. Positive bowel sounds. No guarding, rebound or CVA tenderness. EXTREMITIES: Have +4/4 pitting edema in bilateral lower extremities. NEUROLOGIC: GCS is 15. Cranial nerves II To XII grossly intact. Normal speech. She is alert and oriented x3, lethargic. SKIN: Horrible on bilateral thighs with severe ulcers, multiple ulcers, each thigh. covers 2 to 3 feet of ulcer areas. LABORATORY DATA: She has 143 sodium, potassium 4.1, BUN 19, creatinine 0.7, GFR is greater than 60, sugar is 161, calcium is 8.8, magnesium 2.1, total bili is 0.4, AST is 19, ALT is 30, alkaline phosphatase 70, troponin I is less than 0.01. BNP is chaka high at 3720. Total protein 7. TSH is 4.82. I will start her on some Synthroid. White count is 11.9, hemoglobin 11.2, hematocrit 35.2, platelets 261. Chest x-ray showed pulmonary vascular congestion. ASSESSMENT AND PLAN: She comes in with vascular congestion on chest x-ray, congestive heart failure picture, with chronic obstructive pulmonary disease, morbidly, morbidly obese. She has wounds on bilateral thighs. She will have consults with Pulmonary, Cardiology and Surgery. She will be on Rocephin and Zithromax, diltiazem, benzonatate, warfarin, insulin coverage, DuoNeb [id number], Januvia, Lanoxin, Lasix 40 IV b.i.d., Protonix, Rocephin, Zithromax. She will need to be diuresed, have her lungs clear out, antibiotics, wound care, and hopefully, she will improve. Alan Mann DO
[2018-04-11] MEDS ORDERED: Albuterol-Ipratrop 3 mg / 0.5 (3 ml) UD IH PRN (07:18)
[2018-04-11 07:39] LABS: INR 2.8; PROTHROMBIN TIME 32.9 SECONDS (9.4-12.5)
[2018-04-11] MEDS: Albuterol-Ipratrop 3 mg / 0.5 (3 ml) UD IH SCH ×3 (08:20→19:45)
[2018-04-11] MEDS: Budesonide 0.5 mg/2 ml Inhal Susp UD IH SCH ×2 (08:20→19:45)
[2018-04-11] MEDS: Insulin Reg-LOW-Coverage SC SCH ×4 (08:32→22:11)
[2018-04-11] MEDS ORDERED: Azithromycin 500MG/NS 250ml 500 MG/250 ML BAG IVPB SCH (10:00)
--- NOTE | 2018-04-11 10:26 | CP.PCM.CON ---
History of Present Illness - History of Present Illness History of Present Illness: General Surgery Consult Note for Dr. Castillo Reason for consult: right lateral thigh wound 72F with PMHx COPD, MN, CHF, Afib, morbid obesity, and severe diffuse chronic lymphedema of bilateral lower extremities, presents for evaluation for chronic lower extremity wounds. The pt was admitted yesterday for acute COPD exacerbation and CHF. Pt has chronic lower extremity lymphedema, which began a long time ago--she does not remember when exactly. She first developed skin ulcers on the dorsal aspect of her lateral thighs about 10 years ago, and has been treated for waxing and waning ulcers since that time. She has had good relief with consistent treatment with topical Silvadene and dressings per home health nurses, who provide her with daily care. She is bed-bound secondary to this lymphedema. She states that these wounds have not worsened or changed significantly in the last week; however, she is unsure if she has any wounds on her back. She has had wounds on her thighs before, but she does not have these currently. She has no associated pain. She denies fevers, chills, new or worsening pain, new or worsening drainage, ulcers or wounds that are new or different, dysuria, urinary frequency, constipation, diarrhea, abdominal pain, nausea, vomiting, numbness or tingling in lower extremities. She states that she has a lot of hypersensitivity in her lower legs. Drainage from the wounds is clear, non-purulent, which is unchanged. Her lower extremity swelling is unchanged from prior. She states that her productive cough and dyspnea have improved significantly since her admission to the hospital yesterday. PMHx: COPD, DMT2, Afib, MN, CHF, chronic severe lymphedema of bilateral lower extremities, hypothyroidism PSHx: R lower extremity abscess incision and drainage (years ago), excision of L -sided abdominal wall mass, both by Dr. Darnell Meds: insulin, warfarin, albuterol, Duonebs ALL: NKDA FHx: heart disease (mother). Denies family hx of cancer Social: no smoking or alcohol use Review of Systems - Constitutional Constitutional: absent: Chills, Fever - Cardiovascular Cardiovascular: Dyspnea, Leg Edema, Leg Ulcers, Pedal Edema. absent: Chest Pain Additional comments: Pt reports that leg and pedal edema unchanged from prior. - Respiratory Respiratory: Cough, Dyspnea, Wheezing, Chest Congestion, Change in Mucous Color - Gastrointestinal Gastrointestinal: absent: Abdominal Pain, Constipation, Diarrhea, Nausea, Vomiting - Genitourinary Genitourinary: absent: Dysuria, Urinary Frequency - Integumentary Integumentary: Skin Ulcer, Wounds. absent: Changing Lesions - Neurological Neurological: absent: Numbness, Sensory Deficit, Tingling Past Patient History - Infectious Disease Hx of Infectious Diseases: None - Tetanus Immunizations Tetanus Immunization: Unknown - Past Social History Smoking Status: Never Smoked - CARDIAC Hx Cardiac Disorders: Yes (lymphedema) Hx Angina: Yes Hx Cardia Arrhythmia: Yes Hx Congestive Heart Failure: Yes Hx Peripheral Edema: Yes Hx Peripheral Vascular Disease: Yes - PULMONARY Hx Respiratory Disorders: Yes (using 02 at home) Hx Asthma: Yes Hx Chronic Obstructive Pulmonary Disease (COPD): Yes Hx Emphysema: Yes Hx Pneumonia: Yes - NEUROLOGICAL Hx Neurological Disorder: No - HEENT Hx HEENT Problems: Yes (glasses) - RENAL Hx Chronic Kidney Disease: No - ENDOCRINE/METABOLIC Hx Endocrine Disorders: Yes Hx Diabetes Mellitus Type 2: Yes - HEMATOLOGICAL/ONCOLOGICAL Hx Blood Disorders: Yes (SEPTICEMIA) - INTEGUMENTARY Hx Dermatological Problems: Yes Other/Comment: pt is obese, right outer thigh skin openings healed, redness, hard brown dry skin, dimpling to left thigh, pt c/o that she, sometimes has drainage from left thigh. both lower legs and feet dry skin. redness and discoloration to right abd fold healed, pt unable to turn in bed to assess skin on back, ble +4 pitting edema redness - MUSCULOSKELETAL/RHEUMATOLOGICAL Hx Falls: No - GASTROINTESTINAL Hx Gastrointestinal Disorders: Yes (benign mass removed from abd 30 yrs ago) - GENITOURINARY/GYNECOLOGICAL Hx Genitourinary Disorders: Yes Hx Incontinence: Yes (urine and stool) Hx Urinary Tract Infection: Yes - PSYCHIATRIC Hx Psychophysiologic Disorder: No - SURGICAL HISTORY Hx Cardiac Catheterization: Yes Other/Comment: cardiac cath 2006, picc line, sx to right leg for an infection - ANESTHESIA Hx Anesthesia: Yes Meds Allergies/Adverse Reactions: Allergies Allergy/AdvReac Type Severity Reaction Status Date / Time No Known Allergies Allergy Verified 02/17/17 22:58 - Medications Medications: Current Medications Acetaminophen (Tylenol 325mg Tab) 650 mg PO Q6H PRN PRN Reason: Headache Albuterol/Ipratropium (Duoneb 3 Mg/0.5 Mg (3 Ml) Ud) 3 ml IH [id number] [facility] Last Admin: 04/11/18 08:20 Dose: 3 ml Albuterol/Ipratropium (Duoneb 3 Mg/0.5 Mg (3 Ml) Ud) 3 ml IH Q2H PRN PRN Reason: Shortness of Breath Benzonatate (Tessalon Perles) 200 mg PO BID [facility] Budesonide (Pulmicort Respules) 0.5 mg IH [id number] [facility] Last Admin: 04/11/18 08:20 Dose: 0.5 mg Digoxin (Lanoxin) 0.25 mg PO 1400 RONI Diltiazem HCl (Cardizem Cd) 180 mg PO DAILY RONI Furosemide (Lasix) 40 mg IVP BID [facility] Ceftriaxone Sodium (Rocephin 1 Gram Ivpb) 1 gm in 100 mls @ 100 mls/hr IVPB DAILY [facility] PRN Reason: Protocol Azithromycin (Zithromax 500mg In Ns) 500 mg in 250 mls @ 167 mls/hr IVPB DAILY RONI PRN Reason: Protocol Insulin Human Regular (Humulin R Low) 0 units SC ACHS RONI PRN Reason: Protocol Last Admin: 04/11/18 08:32 Dose: Not Given Levothyroxine Sodium (Synthroid) 25 mcg PO 0600 [facility] Last Admin: 04/11/18 06:10 Dose: Not Given Pantoprazole Sodium (Protonix Ec Tab) 40 mg PO BID [facility] Prednisone (Prednisone Tab) 20 mg PO DAILY [facility] Sitagliptin Phosphate (Januvia) 50 mg PO DAILY [facility] Warfarin Sodium (Coumadin) 2.5 mg PO 1800 [facility] PRN Reason: Protocol Warfarin Sodium (Coumadin) 2 mg PO 1800 [facility] Physical Exam - Constitutional Appears: Well, No Acute Distress Additional comments: Resting comfortably in bed. - Head Exam Head Exam: ATRAUMATIC, NORMAL INSPECTION, NORMOCEPHALIC - Eye Exam Eye Exam: EOMI, Normal appearance. absent: Scleral icterus - ENT Exam ENT Exam: Mucous Membranes Moist - Neck Exam Neck exam: Positive for: Normal Inspection - Respiratory Exam Respiratory Exam: Decreased Breath Sounds, Rales, Rhonchi, Wheezes, NORMAL BREATHING PATTERN. absent: Accessory Muscle Use, Clear to Auscultation Bilateral, Stridor Additional comments: Speaking in full sentences. Nonlabored inspiratory effort. No cyanosis. Diffuse crackles at bases bilaterally. Expiratory wheezing throughout. - Cardiovascular Exam Cardiovascular Exam: Tachycardia, +S1, +S2, Systolic Murmur. absent: REGULAR RHYTHM Additional comments: Slightly tachycardiac. Irregularly irregular. - GI/Abdominal Exam GI & Abdominal Exam: Normal Bowel Sounds, Soft. absent: Tenderness Additional comments: Obese abdomen. - Extremities Exam Extremities exam: Positive for: pedal edema. Negative for: normal inspection, tenderness Additional comments: Large, pendulous masses over lateral thighs, roughly equal bilaterally. Each associated with large region of papillomatosis. brawny induration, hyperkeratosis, and hyperpigmentation over lateral thighs, secondary to chronic lymphedema. No significant scaling. Unchanged per pt. Two small 1 cm skin tears over anterior L thigh with some associated weeping clear serious fluid. No open wounds or skin tears observed on limited exam of dorsal aspect of leg pannus. R thigh associated with 12 cm full-thickness digitative ulcer with sloped edges. Base composed of 80% sluff material, 20% red/pink granulation tissue. Serous drainage observed on bandage. Exam limited secondary to massive lymphedema. Profound pitting edema over feet. Positive Stemmer sign bilaterally. Feet are warm, sensation intact. Unable to palpate pedal pulses 2/2 edema. Skin over feet is warm soft, intact.No calcaneal ulcerations or skin breakdown on feet bilaterally. - Back Exam Additional comments: Deffered examination of back at this time until assistance available to move patient. Results - Vital Signs Recent Vital Signs: Last Vital Signs Temp 98.1 F 04/10/18 19:08 Pulse 59 L 04/11/18 06:00 Resp 18 04/11/18 00:48 BP 132/72 04/10/18 23:48 Pulse Ox 100 04/10/18 23:48 - Labs Result Diagrams: 04/10/18 16:35 04/10/18 17:00 Labs: Laboratory Results - last 24 hr 04/10/18 04/11/18 04/11/18 22:48 06:30 06:30 PT 32.9 H INR 2.80 POC Glucose (mg/dL) 196 H TSH 3rd Generation 1.02 Assessment & Plan - Assessment and Plan (Free Text) Assessment: 72F with PMHx COPD, MN, CHF, Afib, morbid obesity, and severe diffuse chronic lymphedema of bilateral lower extremities, presents for evaluation of chronic lower extremity ulcers associated with lymphedema. Plan: -Monitor for further skin breakdown especially back/sacrum -Daily dressing changes and topical silvadene on wound -Repositioning in bed q2h to prevent further skin breakdown -Air matress -Heel boots -Further recommendations per Dr. Jonathan Cardona PGY2 - Date & Time Date: 04/11/18 Time: 10:30
[2018-04-11] MEDS: diltiaZEM 180 mg/24 Hours CD Cap PO SCH (10:28)
[2018-04-11] MEDS: cefTRIAXone 1 gm 1 GM/100 ML BAG IVPB SCH (10:28)
[2018-04-11] MEDS: Pantoprazole 40 mg EC Tab PO SCH ×2 (10:28→17:12)
--- NOTE | 2018-04-11 10:42 | CARD ---
APPROVED REPORT Date of service: 04/10/2018 EKG Measurement Heart [id number] <Conclusion> Atrial fibrillation STTW changes c/w ischemia
--- NOTE | 2018-04-11 11:16 | PN ---
Copied To: Alan Mann DO Attending MD: Alan Mann DO DATE: 04/11/2018 SUBJECTIVE: I saw her resting comfortably in bed. She slept fairly well last night. I believe the Lasix IV is diuresing her quite well. She is also on prednisone now for the lungs after her Solu-Medrol in the emergency room. She is on diltiazem. She is on Coumadin, DuoNebs around the clock, insulin coverage, Januvia, Lanoxin, Lasix 40 IV b.i.d. She is on prednisone. She is on Rocephin, Synthroid, Tessalon Perles, Tylenol for headache and Zithromax. PHYSICAL EXAMINATION: VITAL SIGNS: She has a 98.1 temperature, 68 pulse, 120/57 blood pressure, 22 respiratory rate, 97% O2 sat on nasal cannula. HEENT: Head is atraumatic, normocephalic. HEART: Regular rate. LUNGS: Decreased breath sounds bilaterally, still little wheeze every now and then, but much improved from the congestion in the ER. ABDOMEN: Morbidly, morbidly, morbidly obese, nontender. Positive bowel sounds. EXTREMITIES: Have +4/4 pitting edema. She said she is having problems with toes. We will call in Podiatry, both lateral sides of her thighs are excoriated. We will call in Surgery for that. But I do think clinically she has improved a little bit with her breathing from the diuresis. LABORATORY DATA: She has a 143 sodium, potassium 4.1, BUN 90, creatinine 0.7, GFR is greater than 60, sugar is 196, calcium is 8.8, magnesium 2.1, total bili is 0.4. AST is 19, ALT is 30, alk phos is 70. Troponin I is less than 0.01. BNP was 3721 while diuresing her. TSH is 4.82. She is on Synthroid again, 7.9 white count, 11.2 hemoglobin, 35.2 hematocrit with 261 platelets. ASSESSMENT AND PLAN: I do think she is having congestive heart failure with chronic obstructive pulmonary disease. She is morbidly, morbidly obese. She has consults with Pulmonary, and Cardio, and Surgery and now Podiatry for the toes. We will continue aggressive treatment and care. Continue checking her labs, diuresing her, the blood pressure was good and Tylenol for headache, but overall, I do see signs of improvement. This was discussed with her and her at length and she is bedridden. She did years due to her size over 600 pounds. Alan Mann DO MTDVivien
[2018-04-11] MEDS: Digoxin 250 mcg (0.25 mg) Tab PO SCH (13:37)
[2018-04-11] MEDS: Silver Sulfadiazine 1% Cream (25 gm) TP SCH ×2 (13:38→17:16)
--- NOTE | 2018-04-11 13:42 | CON ---
Copied To: Ke Farooq MD Attending MD: Ke Farooq MD DATE: 04/11/2018 PULMONARY CONSULTATION REASON FOR CONSULTATION: Chronic obstructive pulmonary disease. REFERRING PHYSICIAN: Dr. Alan Mann. HISTORY OF PRESENT ILLNESS: The patient is a 72-year-old female, with past medical history significant for asthma, chronic obstructive pulmonary disease, recurrent bronchitis, morbid obesity, pulmonary hypertension, diabetes mellitus, cardiac arrhythmias, congestive heart failure who presents to [facility] with main complaints of increasing shortness of breath, cough and sputum production for the past two days. There is no history of chest pain, coughing up of blood or chest pain - made worse with deep respirations. There is no history of temperatures, chills or infectious exposure. There is no history of night sweats, weight loss or appetite change prior to the above events. No history of leg or calf pains. No history of syncope or diaphoresis. No history of recent travel or trauma. REVIEW OF SYSTEMS: No history of nausea, vomiting, diarrhea. No acute urinary symptoms. No new neurologic or musculoskeletal complaints. Rest of the review of systems negative. ALLERGIES: NO KNOWN ALLERGIES. SOCIAL HISTORY: Positive for tobacco and negative for alcohol. FAMILY HISTORY: No inheritable diseases. HOME MEDICATIONS: Include Digitek, Vantin, Januvia, Coumadin, Protonix. PHYSICAL EXAMINATION: GENERAL: The patient appears comfortable at rest. She is not short of breath. VITAL SIGNS: Temperature is 98.1, pulse 59, respirations 18, blood pressure 132/72. Oxygen saturation on nasal cannula is 100%. HEENT: Normocephalic, atraumatic. NECK: Positive JVD. CARDIOVASCULAR: Systolic ejection murmur at the lower left sternal border. Positive S3 gallop. LUNGS: Decreased breath sounds at the bases. Mild bilateral rhonchi. No wheezing. EXTREMITIES: Positive for edema. No cyanosis or clubbing. Calves are nontender to palpation. GI: Abdomen is soft, nontender and nondistended. Bowel sounds are positive. SKIN: No acute rash. NEUROLOGIC: Exam limited at the present time. PERTINENT LABORATORY DATA: Chest x-ray was done yesterday and reviewed. There is increased pulmonary vascular congestion consistent with congestive heart failure. CBC: White count 11.9K, hemoglobin 11.2, hematocrit 35.2, platelets of 261,000. Complete metabolic profile: Glucose 161. B-type natriuretic peptide 3720. Rest of the metabolic profile is within normal limits. IMPRESSION: 1. Acute congestive heart failure. 2. Acute bronchitis. 3. Chronic obstructive pulmonary disease. 4. Asthma. 5. Mild anemia. PLAN: The patient presents to [facility] with a two-day history of worsening pulmonary symptoms. I did review the chest x-ray as above. The chest x-ray shows increased pulmonary vascular congestion - consistent with congestive heart failure. I have also reviewed the laboratory data. A significant rise in the B-type nature peptide is noted. The patient has been placed on Lasix twice a day. Dr. Turk (Cardiology) has been called on the case. On physical exam, the patient is in mild bronchospasm. However, there is no significant alveolar-arterial gradient. Oxygen saturation on nasal cannula this morning is 100%. I will continue with the DuoNebs and add inhaled Pulmicort. I will also add a very small dose of prednisone for the next few days. The patient does state to feeling much better this morning - and is clinically improved. Additional pulmonary intervention will be based on the clinical status of the patient. I will discuss the above with Dr. Mann this morning. Thank you very much for this pulmonary consultation. Ke Farooq MD MTDVivien
--- NOTE | 2018-04-11 15:44 | CP.PCM.CON ---
<Dereje Gurrola - Last Filed: 04/11/18 15:28> History of Present Illness - History of Present Illness History of Present Illness: Podiatry Consult Note - Dr. Hsieh 72F seen and evaluated at bedside. Patient admitted for acute COPD exacerbation and CHF. Patient c/o painful elongated nails; states they cause discomfort with pressure and is unable to trim them herself. Review of Systems - Review of Systems All systems: reviewed and no additional remarkable complaints except (as per HPI ) Past Patient History - Infectious Disease Hx of Infectious Diseases: None - Tetanus Immunizations Tetanus Immunization: Unknown - Past Social History Smoking Status: Never Smoked - CARDIAC Hx Cardiac Disorders: Yes (lymphedema) Hx Angina: Yes Hx Cardia Arrhythmia: Yes Hx Congestive Heart Failure: Yes Hx Peripheral Edema: Yes Hx Peripheral Vascular Disease: Yes - PULMONARY Hx Respiratory Disorders: Yes (using 02 at home) Hx Asthma: Yes Hx Chronic Obstructive Pulmonary Disease (COPD): Yes Hx Emphysema: Yes Hx Pneumonia: Yes - NEUROLOGICAL Hx Neurological Disorder: No - HEENT Hx HEENT Problems: Yes (glasses) - RENAL Hx Chronic Kidney Disease: No - ENDOCRINE/METABOLIC Hx Endocrine Disorders: Yes Hx Diabetes Mellitus Type 2: Yes - HEMATOLOGICAL/ONCOLOGICAL Hx Blood Disorders: Yes (SEPTICEMIA) - INTEGUMENTARY Hx Dermatological Problems: Yes Other/Comment: pt is obese, right outer thigh skin openings healed, redness, hard brown dry skin, dimpling to left thigh, pt c/o that she, sometimes has drainage from left thigh. both lower legs and feet dry skin. redness and discoloration to right abd fold healed, pt unable to turn in bed to assess skin on back, ble +4 pitting edema redness - MUSCULOSKELETAL/RHEUMATOLOGICAL Hx Falls: No - GASTROINTESTINAL Hx Gastrointestinal Disorders: Yes (benign mass removed from abd 30 yrs ago) - GENITOURINARY/GYNECOLOGICAL Hx Genitourinary Disorders: Yes Hx Incontinence: Yes (urine and stool) Hx Urinary Tract Infection: Yes - PSYCHIATRIC Hx Psychophysiologic Disorder: No - SURGICAL HISTORY Hx Cardiac Catheterization: Yes Other/Comment: cardiac cath 2006, picc line, sx to right leg for an infection - ANESTHESIA Hx Anesthesia: Yes Meds Allergies/Adverse Reactions: Allergies Allergy/AdvReac Type Severity Reaction Status Date / Time No Known Allergies Allergy Verified 02/17/17 22:58 - Medications Medications: Current Medications Acetaminophen (Tylenol 325mg Tab) 650 mg PO Q6H PRN PRN Reason: Headache Albuterol/Ipratropium (Duoneb 3 Mg/0.5 Mg (3 Ml) Ud) 3 ml IH [id number] [facility] Last Admin: 04/11/18 14:36 Dose: 3 ml Albuterol/Ipratropium (Duoneb 3 Mg/0.5 Mg (3 Ml) Ud) 3 ml IH Q2H PRN PRN Reason: Shortness of Breath Benzonatate (Tessalon Perles) 200 mg PO BID [facility] Last Admin: 04/11/18 10:28 Dose: 200 mg Budesonide (Pulmicort Respules) 0.5 mg IH [id number] [facility] Last Admin: 04/11/18 08:20 Dose: 0.5 mg Digoxin (Lanoxin) 0.25 mg PO 1400 [facility] Last Admin: 04/11/18 13:37 Dose: 0.25 mg Diltiazem HCl (Cardizem Cd) 180 mg PO DAILY [facility] Last Admin: 04/11/18 10:28 Dose: 180 mg Furosemide (Lasix) 40 mg IVP BID [facility] Last Admin: 04/11/18 10:35 Dose: 40 mg Ceftriaxone Sodium (Rocephin 1 Gram Ivpb) 1 gm in 100 mls @ 100 mls/hr IVPB DAILY [facility] PRN Reason: Protocol Last Admin: 04/11/18 10:28 Dose: 100 mls/hr Azithromycin (Zithromax 500mg In Ns) 500 mg in 250 mls @ 167 mls/hr IVPB DAILY [facility] PRN Reason: Protocol Last Admin: 04/11/18 10:28 Dose: 167 mls/hr Insulin Human Regular (Humulin R Low) 0 units SC ACHS [facility] PRN Reason: Protocol Last Admin: 04/11/18 13:37 Dose: 2 units Levothyroxine Sodium (Synthroid) 25 mcg PO 0600 [facility] Last Admin: 04/11/18 06:10 Dose: Not Given Pantoprazole Sodium (Protonix Ec Tab) 40 mg PO BID [facility] Last Admin: 04/11/18 10:28 Dose: 40 mg Prednisone (Prednisone Tab) 20 mg PO DAILY [facility] Last Admin: 04/11/18 10:28 Dose: 20 mg Silver Sulfadiazine (Silvadene 1% 25 Gm) 1 gm TP BID [facility] Last Admin: 04/11/18 13:38 Dose: 1 gm Sitagliptin Phosphate (Januvia) 50 mg PO DAILY [facility] Last Admin: 04/11/18 10:35 Dose: 50 mg Warfarin Sodium (Coumadin) 2.5 mg PO 1800 [facility] PRN Reason: Protocol Warfarin Sodium (Coumadin) 2 mg PO 1800 [facility] Physical Exam - Constitutional Appears: Well, No Acute Distress - Extremities Exam Extremities exam: Positive for: normal capillary refill, pedal edema (+4 pitting edema bilateral LE). Negative for: full ROM (ROM limited 2/2 edema), pedal pulses present (nonpalpable pedal pulses 2/2 edema) Additional comments: Exam limited due to severe lymphedema Nails 1-10 thickened, elongated, dystrophic w/subungual debris NVSI to digits x10 - Neurological Exam Neurological exam: Alert, Oriented x3 - Psychiatric Exam Psychiatric exam: Normal Affect, Normal Mood Results - Vital Signs Recent Vital Signs: Last Vital Signs Temp 97.1 F L 04/11/18 12:00 Pulse 67 04/11/18 14:00 Resp 19 04/11/18 12:00 BP 107/56 L 04/11/18 12:00 Pulse Ox 100 04/10/18 23:48 - Labs Result Diagrams: 04/10/18 16:35 04/10/18 17:00 Labs: Laboratory Results - last 24 hr 04/10/18 04/11/18 04/11/18 22:48 06:30 06:30 PT 32.9 H INR 2.80 POC Glucose (mg/dL) 196 H TSH 3rd Generation 1.02 Assessment & Plan - Assessment and Plan (Free Text) Assessment: 72F with onychomycosis Plan: Patient seen and evaluated Discussed with attending, Dr. Hsieh Nails trimmed w/o incident Podiatry to sign off at this time, please reconsult if needed <Maria Isabel Hsieh - Last Filed: 04/15/18 18:42> Meds - Medications Medications: Current Medications Acetaminophen (Tylenol 325mg Tab) 650 mg PO Q6H PRN PRN Reason: Headache Last Admin: 04/11/18 22:11 Dose: 650 mg Albuterol/Ipratropium (Duoneb 3 Mg/0.5 Mg (3 Ml) Ud) 3 ml IH [id number] [facility] Last Admin: 04/15/18 14:27 Dose: 3 ml Albuterol/Ipratropium (Duoneb 3 Mg/0.5 Mg (3 Ml) Ud) 3 ml IH Q2H PRN PRN Reason: Shortness of Breath Azithromycin (Zithromax) 500 mg PO DAILY [facility] Stop: 04/16/18 10:01 Last Admin: 04/15/18 09:20 Dose: 500 mg Benzonatate (Tessalon Perles) 200 mg PO BID [facility] Last Admin: 04/15/18 17:13 Dose: 200 mg Budesonide (Pulmicort Respules) 0.5 mg IH [id number] [facility] Last Admin: 04/15/18 08:59 Dose: 0.5 mg Cefpodoxime Proxetil (Vantin) 200 mg PO Q12 [facility] Stop: 04/16/18 10:01 Last Admin: 04/15/18 09:20 Dose: 200 mg Digoxin (Lanoxin) 0.25 mg PO 1400 [facility] Last Admin: 04/15/18 13:10 Dose: 0.25 mg Diltiazem HCl (Cardizem Cd) 180 mg PO DAILY [facility] Last Admin: 04/15/18 09:20 Dose: 180 mg Furosemide (Lasix) 60 mg IVP Q12 [facility] Last Admin: 04/15/18 09:26 Dose: 60 mg Insulin Human Regular (Humulin R Low) 0 units SC ACHS [facility] PRN Reason: Protocol Last Admin: 04/15/18 17:12 Dose: 4 units Levothyroxine Sodium (Synthroid) 25 mcg PO 0600 [facility] Last Admin: 04/15/18 06:18 Dose: 25 mcg Methylprednisolone (Solu-Medrol) 30 mg IVP Q8H [facility] Last Admin: 04/15/18 17:13 Dose: 30 mg Pantoprazole Sodium (Protonix Ec Tab) 40 mg PO BID [facility] Last Admin: 04/15/18 17:13 Dose: 40 mg Silver Sulfadiazine (Silvadene 1%) 1 ea TOP BID [facility] Last Admin: 04/15/18 17:17 Dose: 1 applic Sitagliptin Phosphate (Januvia) 50 mg PO DAILY [facility] Last Admin: 04/15/18 09:26 Dose: 50 mg Warfarin Sodium (Coumadin) 3 mg PO 1800 [facility] PRN Reason: Protocol Last Admin: 04/15/18 17:13 Dose: 3 mg Results - Vital Signs Recent Vital Signs: Last Vital Signs Temp 98 F 04/15/18 12:00 Pulse 67 04/15/18 12:00 Resp 18 04/15/18 12:00 BP 98/49 L 04/15/18 12:00 Pulse Ox 95 04/15/18 06:00 - Labs Result Diagrams: 04/15/18 06:30 04/15/18 06:30 Labs: Laboratory Results - last 24 hr 04/14/18 04/14/18 04/15/18 16:37 21:30 06:30 WBC 9.1 RBC 4.34 Hgb 11.4 L Hct 35.4 L MCV 81.6 MCH 26.3 MCHC 32.2 RDW 15.8 H Plt Count 244 MPV 11.0 PT INR Sodium Potassium Chloride Carbon Dioxide Anion Gap BUN Creatinine Est GFR ( Amer) Est GFR (Non-Af Amer) POC Glucose (mg/dL) 253 H 238 H Random Glucose Calcium Total Bilirubin AST ALT Alkaline Phosphatase Total Protein Albumin Globulin Albumin/Globulin Ratio 04/15/18 04/15/18 04/15/18 06:30 06:30 07:34 WBC RBC Hgb Hct MCV MCH MCHC RDW Plt Count MPV PT 32.5 H INR 2.77 Sodium 140 Potassium 4.1 Chloride 99 Carbon Dioxide 30 Anion Gap 15 BUN 20 Creatinine 0.6 L Est GFR ( Amer) > 60 Est GFR (Non-Af Amer) > 60 POC Glucose (mg/dL) 196 H Random Glucose 217 H Calcium 8.5 Total Bilirubin 0.4 AST 13 L ALT 27 Alkaline Phosphatase 65 Total Protein 7.0 Albumin 3.5 Globulin 3.5 Albumin/Globulin Ratio 1.0 L 04/15/18 11:51 WBC RBC Hgb Hct MCV MCH MCHC RDW Plt Count MPV PT INR Sodium Potassium Chloride Carbon Dioxide Anion Gap BUN Creatinine Est GFR ( Amer) Est GFR (Non-Af Amer) POC Glucose (mg/dL) 282 H Random Glucose Calcium Total Bilirubin AST ALT Alkaline Phosphatase Total Protein Albumin Globulin Albumin/Globulin Ratio Attending/Attestation - Attestation I have personally seen and examined this patient.: Yes I have fully participated in the care of the patient.: Yes I have reviewed all pertinent clinical information: Yes
[2018-04-12] MEDS: Albuterol-Ipratrop 3 mg / 0.5 (3 ml) UD IH SCH ×4 (01:52→20:35)
--- NOTE | 2018-04-12 02:03 | CON ---
Copied To: Ryan Turk MD Attending MD: Ryan Turk MD DATE: 04/11/2018 CARDIOLOGY CONSULTATION HISTORY OF PRESENT ILLNESS: The patient is a 72-year-old woman with one of multiple admissions to the hospital for dyspnea and pedal edema. PAST MEDICAL HISTORY: Notable for COPD, diabetes mellitus, moderate to severe pulmonary hypertension with normal LV function. She presented with pedal edema and dyspnea. In addition, the patient suffers from morbid obesity which has been difficult transferring her from various institutions. SOCIAL HISTORY AND REVIEW OF SYSTEMS: Unavailable at this time. PHYSICAL EXAMINATION VITAL SIGNS: Blood pressure is 107/57, the heart rate is in the 70s, atrial fibrillation. NECK: Negative JVD. LUNGS: Decreased breath sounds bilaterally. HEART: Reveals S1 and S2. EXTREMITIES: Chronic edematous changes. EKG shows low voltage with atrial fibrillation and nonspecific ST-T changes. LABORATORY DATA: Hemoglobin is 11.2. Chemistries: BUN and creatinine are unremarkable. Troponin is negative x1. ProBNP is 3720. IMPRESSION: 1. Moderate to severe pulmonary hypertension, which explains her chronic pedal edema and her chronic dyspnea. 2. Atrial fibrillation. 3. Chronic obstructive pulmonary disease. PLAN: Given these findings, I agree with IV Lasix. We will continue her on Coumadin. We will repeat her echocardiogram to evaluate the status of her LV as well as progression of her pulmonary hypertension. Ryan Turk MD
[2018-04-12] MEDS: Levothyroxine 25 MCG TAB PO SCH (06:12)
[2018-04-12 07:01] LABS: HEMOGLOBIN 10.9 g/dL (12.0-16.0); MEAN CELL VOLUME 83.6 fl (80.0-105.0); MEAN CORPUSCULAR HEMOGLOBIN 26.3 pg (25.0-35.0); MEAN CORPUSCULAR HGB CONC 31.4 g/dl (31.0-37.0); MEAN PLATELET VOLUME 11.1 fl (7.0-11.0); RBC 4.15 10^6/uL (3.5-6.1); RED CELL DISTRIBUTION WIDTH 16.4 % (11.5-14.5); WHITE BLOOD COUNT 8.5 10^3/ul (4.5-11.0)
[2018-04-12 07:08] LABS: INR 3.15; PROTHROMBIN TIME 37.1 SECONDS (9.4-12.5)
[2018-04-12 07:23] LABS: ALBUMIN 3.2 g/dL (3.0-4.8); ALT/SGPT 38 U/L (7-56); AST/SGOT 23 U/L (14-36); BLOOD UREA NITROGEN 19 mg/dL (7-21); CALCIUM 8.5 mg/dL (8.4-10.5); GFR NON-AFRICAN AMERICAN > 60
[2018-04-12 07:29] LABS: B-TYPE NATRIURETIC PEPTIDE 4290 pg/mL (0-450)
[2018-04-12] MEDS: Budesonide 0.5 mg/2 ml Inhal Susp UD IH SCH ×2 (07:30→20:35)
--- NOTE | 2018-04-12 07:51 | PN ---
Copied To: Ke Farooq MD Attending MD: Ke Farooq MD DATE: 04/12/2018 PULMONARY NOTE SUBJECTIVE: The patient appears comfortable this morning. She is not short of breath at rest. OBJECTIVE: VITAL SIGNS: Temperature is 97.3, pulse 62, respirations 18/20, blood pressure 120/80. Oxygen saturation on nasal cannula is 93-100%. HEENT: Normocephalic, atraumatic. NECK: Positive JVD. CARDIOVASCULAR: Systolic ejection murmur at the lower left sternal border. Positive S3 gallop. LUNGS: Decreased breath sounds at the bases. Very minimal/less rhonchi. No wheezing. EXTREMITIES: Positive for edema. No cyanosis, no clubbing. Calves are nontender to palpation. GI: Abdomen is soft, nontender and nondistended. Bowel sounds are positive. SKIN: No acute rash. NEUROLOGIC: Exam limited at the present time. IMPRESSION: 1. Acute congestive heart failure. 2. Acute bronchitis. 3. Chronic obstructive pulmonary disease. 4. Asthma. 5. Mild anemia. PLAN: The patient appears very comfortable this morning. She is not short of breath at rest. She does state to feeling much better overall. On physical exam, her bronchospasm is certainly less. In addition, there is no significant alveolar-arterial gradient. I will continue with the current nebulizer treatments and low-dose oral steroids for now. Input by Cardiology is noted. The patient remains on intravenous Lasix. Clinical status of the patient is certainly improved - compared to the initial presentation. I will discuss the above with Dr. Mann this morning. Ke Farooq MD MTDVivien
[2018-04-12] MEDS: Insulin Reg-LOW-Coverage SC SCH ×4 (08:22→21:43)
--- NOTE | 2018-04-12 09:31 | PN ---
Copied To: Alan Mann DO Attending MD: Alan Mann DO DATE: 04/12/2018 SUBJECTIVE: I saw her resting comfortably in a bed. They got her a new big bed. is bedside. She is coughing some, but she is breathing better overall. She tells me she is urinating a lot. MEDICATIONS: She is on Cardizem and Coumadin, which I put on hold; DuoNebs; Januvia; Lanoxin; Lasix IV twice a day 40 mg; she is on prednisone down to 20; Pulmicort; Rocephin IV; Silvadene cream; Tessalon Perles and azithromycin. PHYSICAL EXAMINATION: VITAL SIGNS: She has a 97.3 temp, 62 pulse, 120/80 blood pressure, 20 respiratory rate and 92% O2 sat on 2 L. HEENT: Her head is atraumatic, normocephalic. HEART: Regular rate. LUNGS: Decreased breath sounds bilaterally. Occasional wheeze, changes with cough, but improved. ABDOMEN: Morbidly, morbidly, morbidly obese. Nontender. Positive bowel sounds. No guarding, no rebound, no CVA tenderness. EXTREMITIES: A +4/4 pitting edema, but looks less than yesterday. The toes are taking care of by the senior patrol agent. LABORATORY DATA: She has a 144 sodium, potassium 4.3, BUN 19, creatinine 0.7, GFR is greater than 60. Last blood sugar was 205, on steroids. Calcium is 8.5, total bili is 0.4, AST is 23, ALT is 38, alk phos 50. BNP went up to 4290. Total protein 6.3. TSH is good at 1.43. White count is 8.5, better; hemoglobin 10.9; hematocrit 34.7; platelets of 238. INR went up to 3.15. ASSESSMENT AND PLAN: I held the Coumadin today, we will restart it tomorrow after tomorrow's labs. She is being seen by Podiatry, Cardiology and Pulmonary. We will continue with diuresing her. Hopefully, in the next few days, we can get her off the antibiotics and the diuresing, change her to tablets and get her back home. We will check her labs tomorrow. Maria Isabel Bowden who has got congestive heart failure, chronic obstructive pulmonary disease, pulmonary hypertension, atrial fibrillation, edema and obesity. Alan Mann DO
[2018-04-12] MEDS: Pantoprazole 40 mg EC Tab PO SCH ×2 (10:37→17:12)
[2018-04-12] MEDS: cefTRIAXone 1 gm 1 GM/100 ML BAG IVPB SCH (10:37)
[2018-04-12] MEDS: Silver Sulfadiazine 1% Cream (25 gm) TP SCH ×2 (10:37→18:33)
[2018-04-12] MEDS: diltiaZEM 180 mg/24 Hours CD Cap PO SCH (10:38)
--- NOTE | 2018-04-12 11:55 | PN ---
Copied To: Ryan Turk MD Attending MD: Ryan Turk MD DATE: 04/12/2018 CARDIOLOGY FOLLOWUP SUBJECTIVE: The patient's breathing is better. PHYSICAL EXAMINATION: VITAL SIGNS: Blood pressure is 120/80, heart rate is in the 70s. NECK: Negative JVD. LUNGS: Decreased breath sounds. HEART: Reveal S1, S2. EXTREMITIES: Marked chronic edema. LABORATORY DATA: BUN and creatinine unremarkable. Hemoglobin is 10.9. IMPRESSION: 1. Marked pedal edema. 2. Chronic obstructive pulmonary disease. 3. Chronic atrial fibrillation. 4. Morbid obesity. 5. Severe pulmonary hypertension. PLAN: Given these findings, the patient is diuresing well. Her breathing has improved. We will continue on Lasix for the next 24 hours. Ryan Turk MD
[2018-04-12] MEDS: Digoxin 250 mcg (0.25 mg) Tab PO SCH (13:56)
[2018-04-13] MEDS: Albuterol-Ipratrop 3 mg / 0.5 (3 ml) UD IH SCH ×4 (02:00→21:15)
[2018-04-13] MEDS: Levothyroxine 25 MCG TAB PO SCH ×2 (06:15→06:31)
[2018-04-13 07:22] LABS: MEAN CELL VOLUME 83.4 fl (80.0-105.0); MEAN CORPUSCULAR HEMOGLOBIN 26.1 pg (25.0-35.0); MEAN CORPUSCULAR HGB CONC 31.3 g/dl (31.0-37.0); MEAN PLATELET VOLUME 10.9 fl (7.0-11.0); RBC 4.21 10^6/uL (3.5-6.1); RED CELL DISTRIBUTION WIDTH 16.3 % (11.5-14.5); WHITE BLOOD COUNT 10.1 10^3/ul (4.5-11.0)
[2018-04-13 07:23] LABS: INR 3.07; PROTHROMBIN TIME 36.1 SECONDS (9.4-12.5)
--- NOTE | 2018-04-13 08:43 | PN ---
Copied To: Ke Farooq MD Attending MD: Ke Faroqo MD DATE: 04/13/2018 PULMONARY NOTE SUBJECTIVE: The patient appears comfortable this morning. She is not short of breath at rest. OBJECTIVE: VITAL SIGNS: Temperature is 97.3, pulse 65, respirations 18, blood pressure 113/65. Oxygen saturation on nasal cannula is 100%. HEENT: Normocephalic, atraumatic. Positive JVD. CARDIOVASCULAR: Systolic ejection murmur at the lower left sternal border. Positive S3 gallop. LUNGS; Decreased breath sounds at the bases. Very minimal/less rhonchi. No wheezing. EXTREMITIES: Positive for edema. No cyanosis or clubbing. Calves are nontender to palpation. GI: Abdomen is soft, nontender and nondistended. Bowel sounds are positive. SKIN: No acute rash. NEUROLOGIC: Exam limited at the present time. IMPRESSION: 1. Acute congestive heart failure. 2. Acute bronchitis. 3. Chronic obstructive pulmonary disease. 4. Asthma. 5. Mild anemia. PLAN: The patient appears very comfortable this morning. She is not short of breath at rest. She does state to feeling better overall. On physical exam, her bronchospasm is certainly less. In addition, the oxygen saturation on nasal cannula is now 100%. I will continue with the current nebulizer treatments and low-dose oral steroids for now. I would continue with the treatment for congestive heart failure as per Cardiology. Input by Dr. Turk is noted. Clinical status of the patient is certainly improved - compared to the initial presentation. However, the future status/prognosis for this patient does remain guarded. I will discuss the above with Dr. Mann. Ke Farooq MD MTDD
[2018-04-13] MEDS: Budesonide 0.5 mg/2 ml Inhal Susp UD IH SCH ×2 (09:02→21:15)
[2018-04-13] MEDS: Insulin Reg-LOW-Coverage SC SCH ×4 (09:30→21:49)
[2018-04-13 10:03] LABS: ALB/GLOB RATIO 1.1 (1.1-1.8); ALBUMIN 3.8 g/dL (3.0-4.8); ALT/SGPT 34 U/L (7-56); AST/SGOT 18 U/L (14-36); BLOOD UREA NITROGEN 19 mg/dL (7-21); CALCIUM 8.7 mg/dL (8.4-10.5); GFR NON-AFRICAN AMERICAN > 60
[2018-04-13] MEDS: diltiaZEM 180 mg/24 Hours CD Cap PO SCH (10:24)
[2018-04-13] MEDS: cefTRIAXone 1 gm 1 GM/100 ML BAG IVPB SCH (10:32)
[2018-04-13] MEDS: Pantoprazole 40 mg EC Tab PO SCH ×2 (10:32→18:02)
[2018-04-13] MEDS: Silver Sulfadiazine 1% Cream (25 gm) TP SCH ×2 (10:35→18:02)
--- NOTE | 2018-04-13 11:29 | PN ---
Copied To: Ryan Turk MD Attending MD: Ryan Turk MD DATE: 04/13/2018 SUBJECTIVE: The patient continues to diurese. PHYSICAL EXAMINATION: VITAL SIGNS: Blood pressure is 113/65, heart rate in the 60s. NECK: Negative JVD. LUNGS: Decreased breath sounds. HEART: Reveal S1, S2. EXTREMITIES: Marked edema. LABORATORY DATA: Hemoglobin is 11. Chemistries: BUN and creatinine unremarkable. Glucose is 182. IMPRESSION: 1. Morbid obesity. 2. Chronic obstructive pulmonary disease. 3. Pulmonary hypertension. 4. Congestive heart failure. 5. Marked edema. PLAN: Given these findings, the patient continues to diurese. She is continued on bronchodilators and steroids. We will discontinue telemetry today. Ryan Turk MD
--- NOTE | 2018-04-13 12:59 | CP.PCM.PN ---
Subjective - Date & Time of Evaluation Date of Evaluation: 04/13/18 Time of Evaluation: 08:00 - Subjective Subjective: Surgery: Dr. Castillo Pt seen and examined. No acute overnight events. States she feels ok and her breathing has improved slightly. She states the blisters in her extremities are starting to drain. She denies other complaints at this time. Denies fevers/ chills. Objective - Vital Signs/Intake and Output Vital Signs (last 24 hours): Temp Pulse Resp BP Pulse Ox 97.3 F L 75 19 153/74 H 100 04/13/18 06:00 04/13/18 10:24 04/13/18 00:01 04/13/18 10:32 04/13/18 00:01 Intake and Output: 04/13/18 04/13/18 06:59 18:59 Intake Total 420 Output Total 1000 Balance -580 - Medications Medications: Current Medications Acetaminophen (Tylenol 325mg Tab) 650 mg PO Q6H PRN PRN Reason: Headache Last Admin: 04/11/18 22:11 Dose: 650 mg Albuterol/Ipratropium (Duoneb 3 Mg/0.5 Mg (3 Ml) Ud) 3 ml IH [id number] [facility] Last Admin: 04/13/18 09:02 Dose: Not Given Albuterol/Ipratropium (Duoneb 3 Mg/0.5 Mg (3 Ml) Ud) 3 ml IH Q2H PRN PRN Reason: Shortness of Breath Azithromycin (Zithromax) 500 mg PO DAILY [facility] Stop: 04/16/18 10:01 Last Admin: 04/13/18 10:24 Dose: 500 mg Benzonatate (Tessalon Perles) 200 mg PO BID [facility] Last Admin: 04/13/18 10:35 Dose: 200 mg Budesonide (Pulmicort Respules) 0.5 mg IH [id number] [facility] Last Admin: 04/13/18 09:02 Dose: Not Given Digoxin (Lanoxin) 0.25 mg PO 1400 [facility] Last Admin: 04/12/18 13:56 Dose: 0.25 mg Diltiazem HCl (Cardizem Cd) 180 mg PO DAILY [facility] Last Admin: 04/13/18 10:24 Dose: 180 mg Furosemide (Lasix) 40 mg IVP BID [facility] Last Admin: 04/13/18 10:32 Dose: 40 mg Ceftriaxone Sodium (Rocephin 1 Gram Ivpb) 1 gm in 100 mls @ 100 mls/hr IVPB DAILY [facility] PRN Reason: Protocol Last Admin: 04/13/18 10:32 Dose: 100 mls/hr Insulin Human Regular (Humulin R Low) 0 units SC ACHS [facility] PRN Reason: Protocol Last Admin: 04/13/18 09:30 Dose: 2 units Levothyroxine Sodium (Synthroid) 25 mcg PO 0600 [facility] Last Admin: 04/13/18 06:31 Dose: Not Given Pantoprazole Sodium (Protonix Ec Tab) 40 mg PO BID [facility] Last Admin: 04/13/18 10:32 Dose: 40 mg Prednisone (Prednisone Tab) 20 mg PO DAILY [facility] Last Admin: 04/13/18 10:31 Dose: 20 mg Silver Sulfadiazine (Silvadene 1% 25 Gm) 1 gm TP BID [facility] Last Admin: 04/13/18 10:35 Dose: 1 gm Sitagliptin Phosphate (Januvia) 50 mg PO DAILY [facility] Last Admin: 04/13/18 10:24 Dose: 50 mg - Labs Labs: 04/13/18 06:30 04/13/18 09:40 PT 36.1 SECONDS (9.4-12.5) H 04/13/18 06:30 INR 3.07 04/13/18 06:30 - Constitutional Appears: Well, No Acute Distress - Head Exam Head Exam: ATRAUMATIC, NORMOCEPHALIC - Eye Exam Eye Exam: EOMI, Normal appearance - ENT Exam ENT Exam: Mucous Membranes Moist - Respiratory Exam Respiratory Exam: NORMAL BREATHING PATTERN. absent: Accessory Muscle Use, Respiratory Distress - Extremities Exam Extremities Exam: Pedal Edema. absent: Normal Inspection, Tenderness Additional comments: Large, pendulous masses over lateral thighs, roughly equal in size bilaterally. Each associated with dependent region of papillomatosis, hyperpigmentation, and brawny induration. Grossly unchanged from prior exam. Right lateral thigh inspected and significant for 3+ pitting edema denoting region of bed railing pressure. No focal tenderness over the R thigh to palpation. Dependent region of mass weeping serous fluid. Clean, dry dressings applied. Bed rail left in down position and end-table used to support Right lateral thigh. Full-thickness, digitative ulcer with sloped edges noted on over dependent portion of R pannus, 12cm in longest dimension, 3 cm in widest dimension, 3 mm deep. Base comprised of 80% sluff and 20% pink granulation tissue. Examination was limited 2/2 massive lymphedema. Left lateral thigh grossly unchanged from prior. Dressings over small skin tear in place. No significant weeping noted from dependent regions. Profound pitting edema over feet bilaterally. Positive Stemmer sign. Skin is warm, dry, intact bilaterally with no wounds or skin breakdown. Assessment and Plan - Assessment and Plan (Free Text) Assessment: 72F w PMHx COPD, CHF, Afib, morbid obesity, and severe diffuse chronic lymphedema of bilateral lower extremities presents for evaluation of chronic lower extremity ulcers associated with lymphedema Plan: - Continue to monitor for further skin breakdown - Silvadene and daily dressing changes as needed for ulcers - Repositioning in bed to prevent further skin breakdown - Air mattress and heel boots in place - d/w Dr. Jonathan Chang
--- NOTE | 2018-04-13 13:20 | PN ---
Copied To: Alan Mann DO Attending MD: Alan Mann DO DATE: 04/13/2018 SUBJECTIVE: I saw Maria Isabel in her bed. Surgical team was working on the bilateral thigh ulcers. They do think they are improving a little bit. Her is with her. She is still coughing but improved with her breathing. She has a lot more diuresing to go. She is still very, very full of fluids. PHYSICAL EXAMINATION: VITAL SIGNS: She has a 97.3 temp, 65 pulse, 113/65 blood pressure, 100% O2 sat on nasal cannula. HEENT: Head is atraumatic, normocephalic. HEART: Regular rate. LUNGS: Decreased breath sounds but clear to auscultation. Occasional wheeze, changes with cough. ABDOMEN: Morbidly, morbidly, morbidly obese, nontender, positive bowel sounds. No guarding, no rebound, no CVA tenderness. EXTREMITIES: A +4/4 pitting edema of the thighs, they are extremely full of fluids. She has a lot more diuresing to go. MEDICATIONS: She is currently on Cardizem, DuoNebs, insulin, Januvia, Lanoxin, Lasix, prednisone, Protonix, Pulmicort, Rocephin, Silvadene cream, Synthroid, Tessalon Perles, Tylenol and Zithromax. We are holding the Coumadin until the INR gets below 3. LABORATORY DATA: She has 144 sodium, potassium is 4.3. Last blood sugar was 244. BUN 90, creatinine 0.7, GFR is greater than 60, this is yesterday's labs. BNP is 4290, she was 3720, we will check that again. Her white count is 10.1, hemoglobin 11, hematocrit 35.1, platelets of 233. An INR is 3.07. When it goes under 3, we will restart her Coumadin again at a lower dose. ASSESSMENT AND PLAN: She is being seen by Cardiology, Pulmonary and Surgery for the bilateral thigh ulcers. She has marked pedal edema, chronic obstructive pulmonary disease, chronic atrial fibrillation, morbid obesity, severe pulmonary hypertension with congestive heart failure. Continue to diurese her. Checking her labs. Discussed at length with the and her. The patient has multiple medical problems. Alan Mann DO [facility] # [id number]
[2018-04-13] MEDS: Digoxin 250 mcg (0.25 mg) Tab PO SCH (14:14)
[2018-04-14] MEDS: Albuterol-Ipratrop 3 mg / 0.5 (3 ml) UD IH SCH ×4 (02:45→20:27)
[2018-04-14] MEDS: Levothyroxine 25 MCG TAB PO SCH (05:38)
[2018-04-14 07:30] LABS: MEAN CELL VOLUME 83.7 fl (80.0-105.0); MEAN CORPUSCULAR HGB CONC 31.1 g/dl (31.0-37.0); MEAN PLATELET VOLUME 11.4 fl (7.0-11.0); RBC 4.23 10^6/uL (3.5-6.1); RED CELL DISTRIBUTION WIDTH 16.1 % (11.5-14.5); WHITE BLOOD COUNT 10.3 10^3/ul (4.5-11.0)
[2018-04-14 07:32] LABS: INR 2.79; PROTHROMBIN TIME 32.8 SECONDS (9.4-12.5)
[2018-04-14 07:49] LABS: ALB/GLOB RATIO 1.1 (1.1-1.8); ALBUMIN 3.3 g/dL (3.0-4.8); ALT/SGPT 36 U/L (7-56); AST/SGOT 12 U/L (14-36); BLOOD UREA NITROGEN 19 mg/dL (7-21); CALCIUM 8.5 mg/dL (8.4-10.5); GFR NON-AFRICAN AMERICAN > 60
--- NOTE | 2018-04-14 07:50 | PN ---
Copied To: Ke Farooq MD Attending MD: Ke Farooq MD DATE: 04/14/2018 PULMONARY NOTE SUBJECTIVE: The patient appears more comfortable this morning. She is not short of breath at rest. PHYSICAL EXAMINATION: VITAL SIGNS: Temperature is 97.4, pulse 54, respirations 18, blood pressure 122/55. Oxygen saturation on nasal cannula is 97-100%. HEENT: Normocephalic, atraumatic. Positive JVD. CARDIOVASCULAR: Systolic ejection murmur at the lower left sternal border. Positive S3 gallop. LUNGS: Decreased breath sounds at the bases. Minimal/less rhonchi. No wheezing. EXTREMITIES: Positive for edema. No cyanosis or clubbing. Calves are nontender to palpation. GI: Abdomen is soft, nontender and nondistended. Bowel sounds are positive. SKIN: No acute rash. NEUROLOGIC: Limited at the present time. IMPRESSION: 1. Acute congestive heart failure. 2. Acute bronchitis. 3. Chronic obstructive pulmonary disease. 4. Asthma. 5. Mild anemia. PLAN: The patient appears more comfortable this morning. She is not short of breath at rest. She does state to less cough. She also states to feeling much better overall. On physical exam, her bronchospasm is slowly resolving. In addition, the alveolar-arterial gradient is also resolving. I will continue with the current nebulizer treatments and low-dose oral steroids for now. I would continue with the treatment for congestive heart failure as per Cardiology. Input by Dr. Turk is noted. Clinical status of the patient is certainly improved overall. However, the future status/prognosis for this chronically ill patient does remain guarded. I will discuss the above with Dr. Mann. Ke Farooq MD MTDD
[2018-04-14 07:54] LABS: B-TYPE NATRIURETIC PEPTIDE 2500 pg/mL (0-450)
[2018-04-14] MEDS: Budesonide 0.5 mg/2 ml Inhal Susp UD IH SCH ×2 (08:00→20:27)
[2018-04-14] MEDS: Insulin Reg-LOW-Coverage SC SCH ×4 (08:10→22:52)
[2018-04-14] MEDS: Silver Sulfadiazine 1% Cream (400 gm) TOP SCH ×2 (10:00→17:10)
[2018-04-14] MEDS: Cefpodoxime (Vantin) 200 mg Tab PO SCH ×2 (11:35→22:01)
[2018-04-14] MEDS: Pantoprazole 40 mg EC Tab PO SCH ×2 (11:35→17:05)
[2018-04-14] MEDS: diltiaZEM 180 mg/24 Hours CD Cap PO SCH (11:36)
--- NOTE | 2018-04-14 13:05 | PN ---
Copied To: João Segundo MD Attending MD: João Segundo MD DATE: 04/14/[address] Ryan Turk. SUBJECTIVE: The patient is still mildly short of breath. PHYSICAL EXAMINATION: VITAL SIGNS: Blood pressure 122/55, heart rate 80, temperature 97.4, respirations 18. HEENT: Normocephalic. CHEST: Bilateral coarse crepitations. HEART: S1 and S2 regular and distant. EXTREMITIES: Significant arm, sacral, gluteal and thigh edema. LABORATORY DATA: Hemoglobin and hematocrit 11 and 35.4. White count and platelet count are within normal limit. SMA-7 is within normal limits except for glucose of 187. ASSESSMENT: 1. Chronic atrial fibrillation. 2. Right-sided heart failure. 3. Morbid obesity. 4. Severe pulmonary hypertension. 5. Chronic atrial fibrillation. The patient's INR is therapeutic as of today. RECOMMENDATIONS: Continue Cardizem at 180 mg once a day, albuterol inhaler every 2 hours p.r.n., Lanoxin 0.25 mg daily orally, Lasix 40 mg intravenous twice a day, prednisone 20 mg once a day, Synthroid 25 mcg once a day, Zithromax 500 mg orally daily. João Segundo MD
[2018-04-14] MEDS: Digoxin 250 mcg (0.25 mg) Tab PO SCH (13:07)
--- NOTE | 2018-04-14 13:37 | CARD ---
APPROVED REPORT Date of service: 04/13/2018 EXAM: Two-dimensional and M-mode echocardiogram with Doppler and color Doppler. INDICATION Congenital Heart Disease 2D DIMENSIONS Left Atrium (2D)6.4 (1.6-4.0cm)IVSd1.2 (0.7-1.1cm) LVDd5.0 (3.9-5.9cm)PWd0.9 (0.7-1.1cm) LVDs3.5 (2.5-4.0cm)FS (%) 29.8 % LVEF (%)56.7 (>50%) M-Mode DIMENSIONS Aortic Root3.00 (2.2-3.7cm)Aortic Cusp Exc.1.80 (1.5-2.0cm) Aortic Valve AoV Peak Pzivugxs625.0cm/Lito Peak GR.14mmHg Mitral Valve E/A ratio0.0 TDI E/Lateral E'0.0E/Medial E'0.0 Pulmonary Valve PV Peak Thwpvxkv42.3cm/sPV Peak Grad.3mmHg Tricuspid Valve TR Peak [id number] [id number] Peak Gr.50mmHg [id number] LEFT VENTRICLE The left ventricle is normal size. There is normal left ventricular wall thickness. The left ventricular function is normal. The left ventricular ejection fraction is within the normal range. There is normal LV segmental wall motion. RIGHT VENTRICLE The right ventricle is mildly dilated. There is normal right ventricular wall thickness. Systolic function is borderline reduced. ATRIA The left atrium is severely dilated. The right atrium is severely dilated. AORTIC VALVE The aortic valve is not well visualized. No aortic regurgitation is present. There is no aortic valvular stenosis. MITRAL VALVE The mitral valve is mildly thickened. Mitral regurgitation is severe. There is no mitral valve stenosis. TRICUSPID VALVE The tricuspid valve is normal in structure. There is severe tricuspid regurgitation. There is severe pulmonary hypertension. PULMONIC VALVE The pulmonary valve is normal in structure. There is severe pulmonic valvular regurgitation. GREAT VESSELS The aortic root is normal in size. The IVC collapses <50% with inspiration. The IVC is dilated. <Conclusion> The left ventricle is normal size. There is normal left ventricular wall thickness. The left ventricular function is normal. The left ventricular ejection fraction is within the normal range. There is normal LV segmental wall motion. Mitral regurgitation is severe. There is severe tricuspid regurgitation. There is severe pulmonary hypertension. There is severe pulmonic valvular regurgitation.
[2018-04-14] MEDS ORDERED: MethylPREDNISolone 40 mg Vial IVP ONE (13:45)
--- NOTE | 2018-04-14 14:49 | PN ---
Copied To: Alan Mann DO Attending MD: Alan Mann DO DATE: 04/14/2018 SUBJECTIVE: I saw Maria Isabel this afternoon. She is not doing well at all. She is very short of breath, in bed. She feels more congested and she is audibly wheezing and coughing. She is on Cardizem, Coumadin, I started her back on that. The INR went under 3. She is on DuoNebs, insulin coverage, Januvia, Lanoxin, Lasix was changed to p.o. I think she has another 4-5 days of diuresing yet, that was changed to 80 mg b.i.d. p.o. She was on 80 t.i.d. at home. I will put it to 60 IV every 12. She is on prednisone 20. I do not like the wheezing, it got worsening on the day. I will give her a shot of Solu-Medrol 40 right now one time dose, see how she does. Protonix, Pulmicort, Silvadene cream. Bilateral thighs are worse than yesterday. Synthroid, Tessalon Perles, Tylenol, Vantin and Zithromax. She is off IV antibiotics, but she still needs to be diuresed, IV Lasix. PHYSICAL EXAMINATION: VITAL SIGNS: 97.4 temp, 54 pulse, 122/55 blood pressure, 18 respiratory rate, 97% O2 sat on 2 L. HEENT: Head is atraumatic, normocephalic. GENERAL: She is uncomfortable. She looks a little bit toxic. I heard wheezing audibly. HEART: Regular rate. LUNGS: Decreased breath sounds, congestion, wheezes bilaterally. ABDOMEN: Soft. Morbidly, morbidly, morbidly obese. Nontender. Positive bowel sounds. EXTREMITIES: +4/4 pitting edema. The right thigh is oozing and worse than yesterday. I think she has got more fluid in the thigh, positional. She has a lot more diuresing to do. She has been on the IV Lasix. LABORATORY DATA: White count of 10.3, hemoglobin is 11, hematocrit 35.4, platelets of 235. INR is 2.79. I will put her on the Coumadin again. She has a 141 sodium, potassium 4.4, BUN 19, creatinine 0.7, GFR is greater than 60, sugar is 204, calcium is 8.5, AST is 12, ALT is 36, alk phos 59. BNP is 2500, it was as high as 4290, that is coming down. Total protein 6.5. ASSESSMENT AND PLAN: She is being seen by Cardiology and Surgery and Pulmonary. I feel she needs to be on Lasix IV a few more days. I gave her a dose of Solu-Medrol. She was audibly wheezing. I do think she has ate least 20-30 more pounds of fluid in her system that we could diurese and we will continue to treat as aggressively as we can. She has congestive heart failure, chronic obstructive pulmonary disease. She has wounds in bilateral thighs and obesity. Alan Mann DO
[2018-04-15] MEDS: Albuterol-Ipratrop 3 mg / 0.5 (3 ml) UD IH SCH ×4 (01:14→20:35)
[2018-04-15] MEDS: Levothyroxine 25 MCG TAB PO SCH (06:18)
[2018-04-15 07:17] LABS: INR 2.77; PROTHROMBIN TIME 32.5 SECONDS (9.4-12.5)
[2018-04-15 07:24] LABS: ALBUMIN 3.5 g/dL (3.0-4.8); ALT/SGPT 27 U/L (7-56); AST/SGOT 13 U/L (14-36); BLOOD UREA NITROGEN 20 mg/dL (7-21); CALCIUM 8.5 mg/dL (8.4-10.5); GFR NON-AFRICAN AMERICAN > 60
[2018-04-15 07:31] LABS: HEMOGLOBIN 11.4 g/dL (12.0-16.0); MEAN CELL VOLUME 81.6 fl (80.0-105.0); MEAN CORPUSCULAR HEMOGLOBIN 26.3 pg (25.0-35.0); MEAN CORPUSCULAR HGB CONC 32.2 g/dl (31.0-37.0); RBC 4.34 10^6/uL (3.5-6.1); RED CELL DISTRIBUTION WIDTH 15.8 % (11.5-14.5); WHITE BLOOD COUNT 9.1 10^3/ul (4.5-11.0)
--- NOTE | 2018-04-15 08:32 | PN ---
Copied To: Ke Farooq MD Attending MD: Ke Farooq MD DATE: 04/15/2018 PULMONARY NOTE SUBJECTIVE: The patient appears comfortable this morning. She is not short of breath at rest. PHYSICAL EXAMINATION: VITAL SIGNS: Temperature is 97.6, pulse on the monitor is 84, respiratory rate 18, blood pressure 126/70. Oxygen saturation on nasal cannula is 95-97%. HEENT: Normocephalic, atraumatic. Positive JVD. CARDIOVASCULAR: Systolic ejection murmur at the lower left sternal border. Positive S3 gallop. LUNGS: Decreased breath sounds at the bases. Very minimal/less rhonchi. No wheezing. EXTREMITIES: Positive for edema. No cyanosis. No clubbing. Calves are nontender to palpation. GI: Abdomen is soft, nontender and nondistended. Bowel sounds are positive. SKIN: No acute rash. NEUROLOGIC: Limited at the present time. IMPRESSION: 1. Acute congestive heart failure. 2. Acute bronchitis. 3. Chronic obstructive pulmonary disease. 4. Asthma. 5. Mild anemia. PLAN: The patient appears comfortable this morning. She is not short of breath at rest. She is coughing less. She does state to feeling much better overall. On physical exam, there is no significant bronchospasm noted. In addition, there is no significant alveolar-arterial gradient. I will continue with the current nebulizer treatments and oral steroids for now. The patient remains on intravenous Lasix. Input by Cardiology is noted. Clinical status of the patient is certainly improved overall. However, her future status/prognosis does remain very guarded. I will discuss the above with Dr. Mann. Ke Farooq MD MTDVivien
[2018-04-15] MEDS: Budesonide 0.5 mg/2 ml Inhal Susp UD IH SCH ×2 (08:59→20:35)
[2018-04-15] MEDS: Insulin Reg-LOW-Coverage SC SCH ×4 (09:17→22:27)
[2018-04-15] MEDS: Cefpodoxime (Vantin) 200 mg Tab PO SCH ×2 (09:20→22:26)
[2018-04-15] MEDS: diltiaZEM 180 mg/24 Hours CD Cap PO SCH (09:20)
[2018-04-15] MEDS: Pantoprazole 40 mg EC Tab PO SCH ×2 (09:26→17:13)
[2018-04-15] MEDS: MethylPREDNISolone 40 mg Vial IVP SCH ×2 (11:29→17:13)
[2018-04-15] MEDS: Silver Sulfadiazine 1% Cream (400 gm) TOP SCH ×2 (11:30→17:17)
--- NOTE | 2018-04-15 12:18 | PN ---
Copied To: Alan Mann DO Attending MD: Alan Mann DO DATE: 04/15/2018 SUBJECTIVE: I saw her this morning with her present. She is resting in bed. She is audibly wheezing and coughing. She is very congested. She is only on prednisone 20, I will put her on Solu-Medrol 30 every 8 hours. I gave her dose of Solu-Medrol 40 as a one time dose hoping to breaking this and has helped, but it came back. She is also on Cardizem, Coumadin, albuterol, insulin coverage, Januvia, Lanoxin, Lasix 60 mg IV every 12 hours and she is diuresing well, Protonix, Pulmicort, Synthroid, Tessalon Perles, Tylenol, Zithromax, and Vantin, but she needs more steroids Solu-Medrol for wheezing in the lungs. PHYSICAL EXAMINATION: VITAL SIGNS: She has 97.6 temp, 106 pulse, 126/70 blood pressure, 20 respiratory rate, 95% O2 sat on 2 liters. HEENT: Head is atraumatic, normocephalic. HEART: Regular rate. LUNGS: Decreased breath sounds, wheezes bilaterally, congestion. ABDOMEN: Morbidly morbidly morbidly obese, nontender, positive bowel sounds. EXTREMITIES: Got +4/4 pitting edema although they do look thinner. Both thighs got ulcers on them, they are very very swollen and full of fluid. She will needs to be diuresed and her lungs need to improve. LABORATORY DATA: She has 140 sodium, potassium 4.1, BUN 20, creatinine 0.6, GFR is greater than 60, sugar is 217, calcium is 8.5. AST is 13, ALT is 27, alk phos 65, total protein is 7, white count is 9.1, hemoglobin 11.4, hematocrit 35.4, platelets are 244. PLAN: Still diuresing and I discussed this with Pulmonary. I doubt her wheezing and I put her on Solu-Medrol, continue with the Lasix 60 IV every 12 hours. She still has a lot of fluid to diurese and she is putting out lot of fluids. Alan Mann DO
[2018-04-15] MEDS: Digoxin 250 mcg (0.25 mg) Tab PO SCH (13:10)
--- NOTE | 2018-04-15 14:55 | PN ---
Copied To: João Segundo MD Attending MD: João Segundo MD DATE: 04/15/2018 SUBJECTIVE: The patient is still short of breath. She has significant abdominal, lower extremity, and flank edema. PHYSICAL EXAMINATION: VITAL SIGNS: Blood pressure 127/60, heart rate 106, temperature 97.6, respirations 20. HEENT: Normocephalic. CHEST: Bilateral rhonchi. HEART: S1 and S2 regular. LABORATORY DATA: Hemoglobin and hematocrit 11.4 and 35.4, white count and platelet count are within normal limits. SMA-7 is within normal limits except for glucose 117 and creatinine 0.6. Echocardiographic study revealed severe pulmonary hypertension, severe tricuspid valve and pulmonic valve regurgitation. ASSESSMENT: 1. Chronic atrial fibrillation. 2. Right-sided heart failure. 3. Morbid obesity. RECOMMENDATIONS: Continue Coumadin at 3 mg orally daily, today's patient's INR is 2.77. Continue digoxin 0.25 mg daily. Lasix was changed to 60 mg intravenously twice a day after resumption of IV access. Continue Solu-Medrol 30 mg intravenously every 8 hours, Synthroid 25 mcg daily, and Zithromax 500 mg orally daily. João Segundo MD
[2018-04-16] MEDS: MethylPREDNISolone 40 mg Vial IVP SCH ×3 (01:29→21:34)
[2018-04-16] MEDS: Albuterol-Ipratrop 3 mg / 0.5 (3 ml) UD IH SCH ×4 (02:15→20:15)
[2018-04-16] MEDS: Levothyroxine 25 MCG TAB PO SCH (05:37)
[2018-04-16] MEDS: Budesonide 0.5 mg/2 ml Inhal Susp UD IH SCH ×2 (07:13→20:15)
[2018-04-16 07:23] LABS: HEMOGLOBIN 11.7 g/dL (12.0-16.0); MEAN CELL VOLUME 81.9 fl (80.0-105.0); MEAN CORPUSCULAR HEMOGLOBIN 25.9 pg (25.0-35.0); MEAN CORPUSCULAR HGB CONC 31.6 g/dl (31.0-37.0); MEAN PLATELET VOLUME 10.8 fl (7.0-11.0); RBC 4.52 10^6/uL (3.5-6.1); RED CELL DISTRIBUTION WIDTH 15.9 % (11.5-14.5)
[2018-04-16 07:28] LABS: INR 2.56
[2018-04-16] MEDS: Insulin Reg-LOW-Coverage SC SCH ×4 (08:01→21:38)
[2018-04-16 08:07] LABS: ALB/GLOB RATIO 1.1 (1.1-1.8); ALBUMIN 3.6 g/dL (3.0-4.8); ALT/SGPT 30 U/L (7-56); AST/SGOT 18 U/L (14-36); BLOOD UREA NITROGEN 20 mg/dL (7-21); CALCIUM 8.7 mg/dL (8.4-10.5); GFR NON-AFRICAN AMERICAN > 60
--- NOTE | 2018-04-16 09:14 | PN ---
Copied To: Ke Farooq MD Attending MD: Ke Farooq MD DATE: 04/16/2018 PULMONARY NOTE SUBJECTIVE: The patient appears comfortable this morning. She is not short of breath at rest. OBJECTIVE: VITAL SIGNS: Temperature is 97.7, pulse 71, respirations 18/20, blood pressure 122/63. Oxygen saturation on nasal cannula is 96-100%. HEENT: Normocephalic, atraumatic. Positive JVD. CARDIOVASCULAR: Systolic ejection murmur at the lower left sternal border. Positive S3 gallop. LUNGS: Decreased breath sounds at the bases. Very minimal rhonchi. No wheezing. EXTREMITIES: Positive for edema. No cyanosis, no clubbing. Calves are nontender to palpation. GI: Abdomen is soft, nontender and nondistended. Bowel sounds are positive. SKIN: No acute rash. NEUROLOGIC: Exam limited at the present time. IMPRESSION: 1. Acute congestive heart failure. 2. Acute bronchitis. 3. Chronic obstructive pulmonary disease. 4. Asthma. 5. Mild anemia. PLAN: The patient appears comfortable this morning. She is not short of breath at rest. She does state to feeling much better overall. On physical exam, there is no significant bronchospasm noted. In addition, there is no significant alveolar-arterial gradient. I did discuss the case with Dr. Mann yesterday. On Dr. Mann's exam, there was wheezing noted. The patient was started on low-dose intravenous steroids. I will decrease the dosage today. Clinical status of the patient appears significantly improved overall. I would continue with the treatment for congestive heart failure as per Cardiology. I will discuss the above with Dr. Mann this morning. Ke Farooq MD MTDD
[2018-04-16] MEDS: Cefpodoxime (Vantin) 200 mg Tab PO SCH (11:18)
[2018-04-16] MEDS: Pantoprazole 40 mg EC Tab PO SCH ×2 (11:19→17:47)
[2018-04-16] MEDS: Silver Sulfadiazine 1% Cream (400 gm) TOP SCH ×2 (11:22→17:52)
[2018-04-16] MEDS: diltiaZEM 180 mg/24 Hours CD Cap PO SCH (11:23)
[2018-04-16] MEDS: Digoxin 250 mcg (0.25 mg) Tab PO SCH (13:12)
--- NOTE | 2018-04-16 16:53 | PN ---
Copied To: João Segundo MD Attending MD: João Segundo MD DATE: 04/16/2018 SUBJECTIVE: The patient is wheezing. She is still having painful edema of the thigh. PHYSICAL EXAMINATION: VITAL SIGNS: Blood pressure 118/64, heart rate 78, temperature 97.7, respiration 20. HEENT: Normocephalic. CHEST: Diffuse bilateral expiratory wheezing. HEART: S1, S2 regular and distant. EXTREMITIES: Massive edema. LABORATORY DATA: Today's hemoglobin and hematocrit 11.7 and 37, white count and platelet count are within normal limit. SMA-7 is within normal limit except for glucose of 257. ASSESSMENT: 1. Chronic atrial fibrillation. 2. Severe right-sided heart failure. 3. Anasarca. 4. Uncontrolled diabetes mellitus. 5. Bronchospasm. RECOMMENDATIONS: Continue digoxin 0.25 mg daily, Lasix 60 mg intravenously twice a day, Coumadin 3 mg once a day, Cardizem CD 180 mg once a day, Synthroid 25 mcg once a day, Solu-Medrol 30 mg intravenously twice a day. Today's INR is 2.56 and we will follow tomorrow's INR and obtain serum digoxin level. João Segundo MD
[2018-04-17] MEDS: Albuterol-Ipratrop 3 mg / 0.5 (3 ml) UD IH SCH ×4 (02:20→20:18)
[2018-04-17] MEDS: Levothyroxine 25 MCG TAB PO SCH (05:55)
[2018-04-17 06:53] LABS: MEAN CELL VOLUME 82.1 fl (80.0-105.0); MEAN CORPUSCULAR HEMOGLOBIN 26.2 pg (25.0-35.0); MEAN CORPUSCULAR HGB CONC 31.9 g/dl (31.0-37.0); RBC 4.2 10^6/uL (3.5-6.1); RED CELL DISTRIBUTION WIDTH 16.1 % (11.5-14.5); WHITE BLOOD COUNT 9.1 10^3/ul (4.5-11.0)
[2018-04-17 06:55] LABS: INR 2.56
[2018-04-17] MEDS: Budesonide 0.5 mg/2 ml Inhal Susp UD IH SCH ×2 (06:59→20:17)
--- NOTE | 2018-04-17 07:07 | PN ---
Copied To: Ke Farooq MD Attending MD: Ke Farooq MD DATE: 04/17/2018 PULMONARY NOTE SUBJECTIVE: The patient appears comfortable this morning. She is not short of breath at rest. PHYSICAL EXAMINATION: VITAL SIGNS: Temperature is 98, pulse is 50, respirations 18-20, blood pressure 100/60. Oxygen saturation on nasal cannula is 95%-100%. HEENT: Normocephalic, atraumatic. Positive JVD. CARDIOVASCULAR: Systolic ejection murmur at the lower left sternal border. Positive S3 gallop. LUNGS: Decreased breath sounds at the bases. Minimal/less rhonchi. No wheezing. EXTREMITIES: Positive for edema. No cyanosis, no clubbing. Calves are nontender to palpation. GASTROINTESTINAL: Abdomen is soft, nontender, and nondistended. Bowel sounds are positive. SKIN: No acute rash. NEUROLOGIC: Limited at the present time. IMPRESSION: 1. Acute congestive heart failure. 2. Acute bronchitis. 3. Chronic obstructive pulmonary disease. 4. Asthma. 5. Mild anemia. PLAN: The patient appears comfortable this morning. She is not short of breath at rest. She does state to feeling better overall. On physical exam, there is certainly less bronchospasm noted. In addition, the oxygen saturation on nasal cannula is 95%-100%. I will continue with the current nebulizer treatments and decrease the intravenous steroids this morning. I would continue with the treatment for congestive heart failure as per Cardiology. Inputs are noted. The patient remains on intravenous Lasix. Clinical status of the patient is definitely improved - compared to the initial presentation. However, again, the future status/prognosis for this chronically ill elderly patient does remain very guarded. I will discuss the above with Dr. Mann. Ke Farooq MD MTDD
[2018-04-17 07:44] LABS: ALB/GLOB RATIO 1.1 (1.1-1.8); ALBUMIN 3.5 g/dL (3.0-4.8); ALT/SGPT 48 U/L (7-56); AST/SGOT 18 U/L (14-36); BLOOD UREA NITROGEN 23 mg/dL (7-21); CALCIUM 8.8 mg/dL (8.4-10.5); GFR NON-AFRICAN AMERICAN > 60
[2018-04-17] MEDS: Insulin Reg-LOW-Coverage SC SCH ×4 (07:47→23:47)
--- NOTE | 2018-04-17 08:19 | PN ---
Copied To: Alan Mann DO Attending MD: Alan Mann DO DATE: 04/16/2018 SUBJECTIVE: Finally, her lungs have no wheezes today, so the Solu-Medrol IV I think is making a big difference. Pulmonary dropped to the 30 b.i.d. or every 12. I think that has made a big difference. I will slowly decrease it. I think she needs it also more than that. She needs the Lasix 60 IV every 12. She was putting out 4 plus liters of urine a day with a good BUN, creatinine. When she was at home, she was up to 160 mg of p.o. Lasix and she had a quarter of a liter or 250 mL in a day that was a lot. She filled up with fluids. The last time she was here, she was here for 3 weeks and diuresed over 100 pounds. She came in here at 706 pounds. I would like to get her at least under 650. Both thighs are very very swollen with fluid. We will know as the thighs heel and the wounds in the thighs heal, we will know that she is diuresed appropriately. I am glad that she is breathing better on the IV Solu-Medrol. PHYSICAL EXAMINATION: VITAL SIGNS: She has a 97.7 temp, 71 pulse, 122/63 blood pressure, 20 respiratory rate, 96% O2 sat on 2 L. HEENT: Head is atraumatic, normocephalic. HEART: Regular rate. LUNGS: It is the first day the lungs were clear to auscultation because of Solu-Medrol. ABDOMEN: Soft. Morbidly, morbidly, morbidly obese. EXTREMITIES: +4/4 pitting edema, even though they look less swollen, both thighs. The right thigh looks a little bit less swollen than the left. The wounds are still there and oozing. She puts out 4 plus liters of urine a day. She has a lot more of diuresing to go 5 days. LABORATORY DATA: Her sodium is 141, potassium 4.6, BUN 20, creatinine 0.7, GFR is greater than 60, sugar is 268, calcium is 8.7, magnesium was not done, total bili is 0.5, AST is 18, ALT is 30, alk phos 57, total protein 6.9. White count is 9, hemoglobin 11.7, hematocrit 37, platelets of 220. INR is 2.56. Most importantly, the BUN is still 20 and the creatinine is 0.7. ASSESSMENT AND PLAN: She is being seen by Pulmonary and Cardiology. She has a lot more of diuresing to do. When she drops down to 1 L a day of urine, I will think that she would be in the process of being changed to oral diuretics. I would like Cardiology of using something else not Lasix. I do not think Lasix generic does the thing for her. She has a chronic atrial fibrillation, right-sided heart failure with severe, severe swelling and edema and chronic obstructive pulmonary disease, morbid obesity. Continue aggressive treatment and care on Maria Isabel Bowden. Discussed at length with Maria Isabel and the family. Alan Mann DO MTDD
--- NOTE | 2018-04-17 09:52 | PN ---
Copied To: Alan Mann DO Attending MD: Alan Mann DO DATE: 04/17/2018 SUBJECTIVE: I saw her resting comfortably in bed with her present. She is telling me that she is putting out 8 liters of urine in 24 hours for the past two days. She is diuresing very well. She is also on Solu-Medrol and breathing better on the Solu-Medrol, less wheeze, still coughing. She is on Cardizem, Coumadin, DuoNebs, insulin, Januvia, Lanoxin, Lasix, Protonix, Pulmicort, Silvadene, Solu-Medrol down to 20 IV every 12 hours, Synthroid, Tessalon Perles and Tylenol. OBJECTIVE: VITAL SIGNS: She has a 98 temperature, 50 pulse, 100/60 blood pressure, 19 respiratory rate, 95% nasal cannula O2 sat. HEENT: Head is atraumatic, normocephalic. HEART: Regular rate. LUNGS: Decreased breath sounds, but clear to auscultation. No wheezes, no rhonchi, no rales. She does have an upper cough. HEART: Regular rate. ABDOMEN: Soft, nontender. Positive bowel sounds. She is morbidly, morbidly, morbidly obese. EXTREMITIES: A +4/4 pitting edema, that is much better. Her thighs are not as swollen and they are still oozing, but bandaged, may be a smidgen better. DATA: She has a 9.1 white count, 11 hemoglobin, 34.5 hematocrit with 239 platelets. INR is 2.56. She has 139 sodium, potassium 4.1, BUN 23, creatinine 0.7. GFR is greater than 60. Sugar was high at 319, 290, 285. I will adjust her medicines for diabetes. Calcium is 8.8. Total bili is 0.5, AST is 18, ALT is 48, alkaline phosphatase 72, total protein 6.7. She is still in CHF with severe edema and COPD and I will check her labs tomorrow. I am going to increase her Januvia to 100, watch her blood sugars and she is putting out 8 liters of urine in 24 hours. We are going to diurese her. Alan Mann DO [facility] # [id number] ANUP
[2018-04-17] MEDS: MethylPREDNISolone 40 mg Vial IVP SCH ×2 (10:49→23:47)
[2018-04-17] MEDS: diltiaZEM 180 mg/24 Hours CD Cap PO SCH (10:50)
[2018-04-17] MEDS: Pantoprazole 40 mg EC Tab PO SCH ×2 (10:50→18:03)
[2018-04-17] MEDS: Silver Sulfadiazine 1% Cream (400 gm) TOP SCH (10:50)
[2018-04-17] MEDS: Digoxin 250 mcg (0.25 mg) Tab PO SCH (14:35)
--- NOTE | 2018-04-17 18:37 | PN ---
Copied To: Ryan Turk MD Attending MD: Ryan Turk MD DATE: 04/17/2018 CARDIOLOGY FOLLOWUP SUBJECTIVE: The patient continues to diurese massive amounts of urine. PHYSICAL EXAMINATION: VITAL SIGNS: Blood pressure is 128/86, the heart rate is in the 70s. NECK: Negative JVD. LUNGS: Decreased breath sounds without rales. HEART: Reveals S1 and S2. EXTREMITIES: Chronic massive edema. LABORATORY DATA: BUN and creatinine is 23 and 0.7, glucose is 319. Hemoglobin is 11. IMPRESSION: 1. Marked fluid overloaded. 2. Massive pedal edema. 3. Chronic obstructive pulmonary disease. 4. Pulmonary hypertension. 5. Acute systolic congestive heart failure. 6. Mild anemia. PLAN: Given these findings, we will continue diuresis. The patient is feeling much better. Ryan Turk MD
[2018-04-18] MEDS: Albuterol-Ipratrop 3 mg / 0.5 (3 ml) UD IH SCH ×4 (01:11→19:17)
[2018-04-18] MEDS: Levothyroxine 25 MCG TAB PO SCH (05:30)
--- NOTE | 2018-04-18 07:14 | PN ---
Copied To: Ke Farooq MD Attending MD: Ke Farooq MD DATE: 04/18/2018 PULMONARY NOTE SUBJECTIVE: The patient appears comfortable this morning. She is not short of breath at rest. OBJECTIVE: VITAL SIGNS: Temperature is 97.6, pulse 84, respirations 19, blood pressure 114/78. Oxygen saturation on nasal cannula is 96%. HEENT: Normocephalic, atraumatic. Positive JVD. CARDIOVASCULAR: Systolic ejection murmur at the lower left sternal border. Positive S3 gallop. LUNGS: Decreased breath sounds at the bases. Minimal/less rhonchi. No wheezing. EXTREMITIES: Less edema. No cyanosis, no clubbing. Calves are nontender to palpation. GI: Abdomen is soft, nontender and nondistended. Bowel sounds are positive. SKIN: No acute rash. NEUROLOGIC: Exam limited at the present time. IMPRESSION: 1. Acute congestive heart failure. 2. Acute bronchitis. 3. Chronic obstructive pulmonary disease. 4. Asthma. 5. Mild anemia. PLAN: The patient appears comfortable this morning. She is not short of breath at rest. She does state to feeling much better overall. On physical exam, her bronchospasm continues to slowly resolve. In addition, the alveolar-arterial gradient also continues to resolve. I will continue with the current nebulizer treatments and low-dose intravenous steroids (decreased yesterday) for now. The patient remains on intravenous diuretics as per Cardiology. Input by Dr. Turk is noted. Clinical status of the patient is definitely improved - compared to the initial presentation. However, again, the future status/prognosis for this chronically ill patient does remain guarded. I will discuss the above with Dr. Mann. Ke Farooq MD MTDD
[2018-04-18] MEDS: Budesonide 0.5 mg/2 ml Inhal Susp UD IH SCH ×2 (07:17→19:17)
[2018-04-18 08:11] LABS: HEMOGLOBIN 11.3 g/dL (12.0-16.0); MEAN CELL VOLUME 81.7 fl (80.0-105.0); MEAN CORPUSCULAR HEMOGLOBIN 25.9 pg (25.0-35.0); MEAN CORPUSCULAR HGB CONC 31.7 g/dl (31.0-37.0); MEAN PLATELET VOLUME 10.8 fl (7.0-11.0); RBC 4.36 10^6/uL (3.5-6.1)
[2018-04-18 08:19] LABS: INR 2.48; PROTHROMBIN TIME 29.1 SECONDS (9.4-12.5)
--- NOTE | 2018-04-18 08:40 | PN ---
Copied To: Alan Mann DO Attending MD: Alan Mann DO DATE: 04/18/2018 SUBJECTIVE: I saw her in bed. She is alert. The is present. She is putting out a lot of urine. She is still putting out 8 liters of urine in about 24 hours. She is on Cardizem, Coumadin, DuoNebs, Flonase, insulin, Januvia, I increased it to 100 because her blood sugars are starting to creep up, Lanoxin, Lasix 60 IV every 12, [place] spray, Protonix, Pulmicort, Silvadene, Solu-Medrol 20 IV every 12, Synthroid, Tessalon Perles, and Tylenol. She is resting in bed, breathing better. No wheeze. Occasional cough, not as bad. No chest pain or shortness of breath. The thigh is still oozing and is still very tight and swollen. A lot more diuresing. PHYSICAL EXAMINATION: VITAL SIGNS: She has a 98.1 temperature, 65 pulse, 106/60 blood pressure, 19 respiratory rate, 97% O2 sat on nasal cannula. HEENT: Head is atraumatic, normocephalic. HEART: Regular rate. LUNGS: Decreased breath sounds but clear. No wheezing or rhonchi, which is great on the IV Solu-Medrol. ABDOMEN: Morbidly, morbidly, morbidly obese, nontender. Positive bowel sounds. No guarding, no rebound. EXTREMITIES: Have +4/4 pitting edema, even they look much less swollen. Both thighs are very swollen, maybe not as tight, but there is oozing and the ulcers on bilateral legs. LABORATORY DATA: She has a 9.1 white count, 11 hemoglobin, 34.5 hematocrit with 239 platelets. INR is 2.56. Sodium 139, potassium 4.1, BUN 23, creatinine 0.7, GFR is greater than 60. Last blood sugar was 348, they are definitely increasing, even though I increased the medication. I will call in Endocrinology. Calcium is 8.8, total bili is 0.5, AST is 18, ALT is 14, alk phos 72, total protein 6.7. ASSESSMENT AND PLAN: She was being seen by Pulmonary and Cardiology. We have to continue to diurese her and I will call in Endocrinology for her persistent elevation of her sugars, also Podiatry has to come and take care of other foot nails. She is in severe congestive heart failure, chronic obstructive pulmonary disease picture with bilateral thigh wounds. Alan Mann DO
[2018-04-18 08:46] LABS: ALB/GLOB RATIO 1.1 (1.1-1.8); ALBUMIN 3.8 g/dL (3.0-4.8); ALT/SGPT 40 U/L (7-56); AST/SGOT 15 U/L (14-36); BLOOD UREA NITROGEN 25 mg/dL (7-21); CALCIUM 8.7 mg/dL (8.4-10.5); GFR NON-AFRICAN AMERICAN > 60
[2018-04-18] MEDS: Insulin Reg-LOW-Coverage SC SCH ×4 (08:53→23:32)
[2018-04-18] MEDS: MethylPREDNISolone 40 mg Vial IVP SCH ×2 (10:03→23:33)
[2018-04-18] MEDS: Pantoprazole 40 mg EC Tab PO SCH ×2 (10:07→17:32)
[2018-04-18] MEDS: Silver Sulfadiazine 1% Cream (400 gm) TOP SCH ×2 (10:08→17:34)
[2018-04-18] MEDS: Fluticasone Nasal 50 mcg/Spray NS SCH (11:14)
[2018-04-18] MEDS: diltiaZEM 180 mg/24 Hours CD Cap PO SCH (11:15)
[2018-04-18] MEDS: Digoxin 250 mcg (0.25 mg) Tab PO SCH (14:24)
--- NOTE | 2018-04-18 15:48 | PN ---
Copied To: Ryan Turk MD Attending MD: Ryan Turk MD DATE: 04/18/2018 CARDIOLOGY FOLLOWUP SUBJECTIVE: The patient continues to diuresis tremendous amounts of fluid. PHYSICAL EXAMINATION: VITAL SIGNS: Blood pressure is 108/69, heart rate is in the 70s. NECK: Negative JVD. LUNGS: Decreased breath sounds. HEART: Reveals S1, S2. EXTREMITIES: Marked edema. LABORATORY DATA: Hemoglobin is 11.3. Chemistries: BUN and creatinine are 25 and 0.7, potassium is 4.4. The glucose is 352. IMPRESSION: 1. Morbid obesity. 2. Congestive heart failure, predominately right sided. 3. Dyspnea, which is improved. 4. Chronic obstructive pulmonary disease. PLAN: Given these findings, we will continue her diuresis. Ryan Turk MD
[2018-04-19] MEDS: Albuterol-Ipratrop 3 mg / 0.5 (3 ml) UD IH SCH ×4 (01:08→20:05)
[2018-04-19] MEDS: Levothyroxine 25 MCG TAB PO SCH (05:52)
--- NOTE | 2018-04-19 07:32 | PN ---
DATE: 04/19/2018 PULMONARY NOTE SUBJECTIVE: The patient appears comfortable this morning. She is not short of breath at rest. PHYSICAL EXAMINATION: VITAL SIGNS: Temperature is 97.6, pulse 80, respirations 19, blood pressure 112/49. Oxygen saturation on nasal cannula is 98-99%. HEENT: Normocephalic, atraumatic. Positive JVD. CARDIOVASCULAR: Systolic ejection murmur at the lower left sternal border. Positive S3 gallop. LUNGS: Decreased breath sounds at the bases. Very minimal/less rhonchi. No wheezing. EXTREMITIES: Less edema. No cyanosis. No clubbing. Calves are nontender to palpation. GI: Abdomen is soft, nontender and nondistended. Bowel sounds are positive. SKIN: No acute rash. NEUROLOGIC: Limited at the present time. IMPRESSION: 1. Acute congestive heart failure. 2. Acute bronchitis. 3. Chronic obstructive pulmonary disease. 4. Asthma. 5. Mild anemia. PLAN: The patient appears very comfortable this morning. She is not short of breath at rest. She does state to feeling much better overall. On physical exam, her bronchospasm continues to resolve. In addition, the oxygen saturation on nasal cannula is 98-99%. I will continue with the current nebulizer treatments and change to oral steroids this morning. I would continue with the treatment for congestive heart failure as per Cardiology. Input by Dr. Turk is noted. Clinical status of the patient is significantly improved overall. However, again, her future status/prognosis does remain guarded. I will discuss the above with Dr. Mann. Ke Farooq MD MTDD
[2018-04-19 07:38] LABS: HEMOGLOBIN 10.8 g/dL (12.0-16.0); MEAN CELL VOLUME 82.2 fl (80.0-105.0); MEAN CORPUSCULAR HGB CONC 31.7 g/dl (31.0-37.0); MEAN PLATELET VOLUME 11.4 fl (7.0-11.0); RBC 4.15 10^6/uL (3.5-6.1); RED CELL DISTRIBUTION WIDTH 16.3 % (11.5-14.5); WHITE BLOOD COUNT 8.6 10^3/ul (4.5-11.0)
[2018-04-19 07:43] LABS: INR 2.26; PROTHROMBIN TIME 26.4 SECONDS (9.4-12.5)
[2018-04-19] MEDS: Budesonide 0.5 mg/2 ml Inhal Susp UD IH SCH ×2 (08:09→20:05)
[2018-04-19] MEDS: Insulin Reg-LOW-Coverage SC SCH ×2 (08:28→11:56)
[2018-04-19 08:53] LABS: ALB/GLOB RATIO 1.1 (1.1-1.8); ALBUMIN 3.6 g/dL (3.0-4.8); ALT/SGPT 37 U/L (7-56); AST/SGOT 14 U/L (14-36); BLOOD UREA NITROGEN 26 mg/dL (7-21); CALCIUM 8.8 mg/dL (8.4-10.5); GFR NON-AFRICAN AMERICAN > 60
[2018-04-19] MEDS: diltiaZEM 180 mg/24 Hours CD Cap PO SCH (10:00)
[2018-04-19] MEDS: Pantoprazole 40 mg EC Tab PO SCH ×2 (10:01→18:01)
[2018-04-19] MEDS: Fluticasone Nasal 50 mcg/Spray NS SCH (10:01)
[2018-04-19] MEDS ORDERED: Sod Polystyrene Sulf 15 gm/60 ml Susp PO ONE (10:51)
--- NOTE | 2018-04-19 12:10 | PN ---
DATE: 04/19/2018 CARDIOLOGY FOLLOWUP SUBJECTIVE: The patient is without shortness of breath. PHYSICAL EXAMINATION: VITAL SIGNS: Blood pressure is 107/52, the heart rate is in the 80s. NECK: Negative JVD. LUNGS: Decreased breath sounds. HEART: Reveals S1, S2. EXTREMITIES: Marked chronic edema. LABORATORY: Hemoglobin is 10.8. Chemistries: BUN and creatinine 26 and 0.7 with a potassium of 4.1. IMPRESSION: 1. Marked pedal edema. 2. Congestive heart failure, which is better. 3. Chronic obstructive pulmonary disease. 4. Anemia. 5. Morbid obesity. PLAN: Given these findings, the patient continues to diurese. We will discontinue telemetry today. Ryan Turk MD
--- NOTE | 2018-04-19 13:53 | PN ---
DATE: 04/19/2018 SUBJECTIVE: I saw her in bed with the present. She is having a little bit of headache and the blood sugars have been up. She is on Cardizem; Coumadin; DuoNeb; Flonase; Glucophage; insulin; Januvia; Lanoxin; Lasix; Levemir; Micronase; nasal spray; prednisone, is on 30 daily, she is off of Solu-Medrol; Protonix; Pulmicort; Silvadene cream; Synthroid; Tylenol; and Tessalon Perles. She is still putting out 8 liters of urine in 24 hours, diuresing. The thighs are not as oozing and are bandaged, starting to slowly heal, decreasing fluid in the body. PHYSICAL EXAMINATION: VITAL SIGNS: She has 97.6 temp, 80 pulse, 112/49 blood pressure, 19 respiratory rate, 98% O2 sat on nasal cannula. HEENT: Head: Atraumatic, normocephalic. Throat is moist. NECK: Supple. There is something in the left cheek. When the ENT came in, they did not respond to that. If it is still bothersome, I will call ENT back in. HEART: Regular rate. LUNGS: Decreased breath sounds, but clear. No wheezes. No rhonchi. No rales. Very good day for her. ABDOMEN: Soft; morbidly, morbidly, morbidly obese. Nontender. Positive bowel sounds. No guarding. No rebound. No CVA tenderness. EXTREMITIES: A +4/4 pitting edema but there are half the size than when they came in; also, both thighs is starting to have decreased in oozing and maybe even shows signs of healing with decrease in all the fluid. LABORATORY DATA: She has an 8.6 white count, 10.8 hemoglobin, 34.1 hematocrit with 213 platelets. INR is 2.26, she is on Coumadin. She has a 138 sodium, potassium 4.4, BUN 25, creatinine 0.7. Last blood sugar was 348. She is on insulin now. Calcium is 8.7. Total bili is 0.58. AST 15, ALT is 40, alkaline phosphatase 72. Total protein 7.2. Digoxin level is 1.2. ASSESSMENT AND PLAN: She is being seen by Pulmonary, Cardiology. Stop the Solu-Medrol. Continue to diurese her and also, Endocrinology has changed diabetes medications around. We will continue to diurese. We will check her labs tomorrow. She is here for congestive heart failure, morbid obesity, chronic obstructive pulmonary disease, kind of a Alan Mann DO
[2018-04-19] MEDS: Digoxin 250 mcg (0.25 mg) Tab PO SCH (14:43)
[2018-04-19] MEDS: Silver Sulfadiazine 1% Cream (400 gm) TOP SCH ×2 (15:01→18:30)
--- NOTE | 2018-04-19 15:05 | CON ---
DATE: 04/19/2018 ENDOCRINOLOGY CONSULT LOCATION: In room 270. HISTORY OF PRESENT ILLNESS: This is a 72-year-old female with known history of type 2 insulin-requiring diabetes, presenting here with progressively worsening shortness of breath and evaluated to have an acute exacerbation of COPD with supervening congestive heart failure and is now being referred for diabetic evaluation and management. PAST MEDICAL HISTORY: As mentioned above, the patient has previously been on a combination of Levemir given as 40 units at bedtime with Humalog given as 20 units t.i.d. with meals as noted. History of hypertension and dyslipidemia, history of diabetic polyneuropathy with underlying vasculopathy, history of chronic obstructive lung disease with multiple admissions for exacerbations of the same and she also has severe pulmonary hypertension. History of super morbid obesity with severe and chronic and diffuse lymphedema of the lower extremities and she is actually bed-bound as noted thereof. History of hypothyroidism, on levothyroxine replacement therapy as noted. History of cardiac tachyarrhythmias with chronic atrial fibrillation and has remained hemodynamically stable at this time. FAMILY HISTORY: Positive for diabetes and hypertension. SOCIAL HISTORY: The patient has supportive family. No known substance use. REVIEW OF SYSTEMS: As mentioned above. Admits to generalized body weakness with easy fatigability and tiredness and progressive bouts of dizziness and lightheadedness as noted. She also admits to bifrontal headaches with occasional bouts of visual blurring. No chest pains, but admits to progressively worsening shortness of breath with paroxysmal nocturnal dyspnea. Her oral intake has been variable with nausea, dyspepsia and vague upper abdominal pains with habitual constipation. She also admits to lower extremity painful paresthesias especially nocturnally and admits to chronic drainage of a clear and nonpurulent discharge in both lower extremities from the underlying severe lymphedema. PHYSICAL EXAMINATION: GENERAL: This is a morbidly obese female, in no apparent distress. VITAL SIGNS: Blood pressure of 150/90; pulse of 100 beats per minute, regular; temperature 98; respirations 20. Height is 6 feet, weight is 306 pounds. HEENT: Head normocephalic. Eyes anicteric with pink conjunctivae. Funduscopy not possible at this time. Ears, nose and throat otherwise normal. NECK: Supple. Thyroid gland is normal in size. No carotid bruits or cervical adenopathy. CARDIOPULMONARY: Some adynamic precordium. S1, S2 is rapid and regular. Lungs show scattered rhonchi. ABDOMEN: Flat, soft with positive bowel sounds. EXTREMITIES: There is severe +4 bipedal edema with underlying chronic lymphedema and drainage of clear fluid as noted thereof. Her pulses are +2 bilaterally. LABORATORY DATA: Her chemistry showed a BUN of 25, sodium 138, potassium 4.4, chloride 97, CO2 of 32, glucose 352 and creatinine 0.7. Her glucose levels have ranged from 348-379 mg/dL. ASSESSMENT: This is a 72-year-old female with uncontrolled and decompensated type 2 insulin-requiring diabetes, presenting here with acute exacerbation of chronic obstructive pulmonary disease with underlying pulmonary hypertension and is now being referred for diabetic evaluation and management. She also has diabetic microvascular complications of polyneuropathy and macrovascular complications of cerebrovascular disease with underlying early nephropathy as noted. She also has super morbid obesity with expected increased and tremendous insulin resistance thereof with half the insulin requirements as expected thereof. PLAN OF MANAGEMENT: As discussed with the patient and the staff, we will modify her current insulin regimen to a more physiologic basal and bolus insulin drug combination. We will add Levemir given as 40 units subcu at bedtime daily to start tonight. We will also add Humalog given as 12 units subcu t.i.d. before meals to start tomorrow as ordered. Hemoglobin A1c has been ordered, which will confirm her prior glycemic control and baseline thyroid function studies and a serum cortisol and ACTH level will be ordered. We will obtain serial chemistries and supplement accordingly as needed. We will follow. Chela Velez MD
[2018-04-19] MEDS ORDERED: Insulin Lispro 1 UNITS/0.01 ML SC SCH (16:30)
[2018-04-19] MEDS: Insulin Lispro (humaLOG) LOW Coverage SC SCH ×2 (16:56→22:30)
[2018-04-19] MEDS ORDERED: Insulin Detemir 100 units/ml Vial (Levemir) SC SCH (22:00)
[2018-04-20] MEDS: Albuterol-Ipratrop 3 mg / 0.5 (3 ml) UD IH SCH ×4 (01:59→20:53)
[2018-04-20] MEDS: Levothyroxine 25 MCG TAB PO SCH (05:56)
[2018-04-20 07:22] LABS: HEMOGLOBIN 11.2 g/dL (12.0-16.0); MEAN CELL VOLUME 83.3 fl (80.0-105.0); MEAN CORPUSCULAR HEMOGLOBIN 26.4 pg (25.0-35.0); MEAN CORPUSCULAR HGB CONC 31.7 g/dl (31.0-37.0); MEAN PLATELET VOLUME 11.7 fl (7.0-11.0); RBC 4.24 10^6/uL (3.5-6.1); RED CELL DISTRIBUTION WIDTH 16.2 % (11.5-14.5); WHITE BLOOD COUNT 9.6 10^3/ul (4.5-11.0)
[2018-04-20 07:26] LABS: INR 2.55; PROTHROMBIN TIME 29.9 SECONDS (9.4-12.5)
[2018-04-20 07:31] LABS: ALB/GLOB RATIO 1.2 (1.1-1.8); ALBUMIN 3.7 g/dL (3.0-4.8); ALT/SGPT 39 U/L (7-56); AST/SGOT 13 U/L (14-36); BLOOD UREA NITROGEN 25 mg/dL (7-21); CALCIUM 8.7 mg/dL (8.4-10.5); GFR NON-AFRICAN AMERICAN > 60
[2018-04-20] MEDS: Budesonide 0.5 mg/2 ml Inhal Susp UD IH SCH ×2 (07:42→20:53)
--- NOTE | 2018-04-20 07:57 | PN ---
DATE: 04/20/2018 PULMONARY NOTE SUBJECTIVE: The patient appears comfortable this morning. She is not short of breath at rest. PHYSICAL EXAMINATION: VITAL SIGNS: Temperature is 98, pulse 56, respirations 18, blood pressure 107/55. Oxygen saturation on nasal cannula is 98%-100%. HEENT: Normocephalic, atraumatic. Positive JVD. CARDIOVASCULAR: Systolic ejection murmur at the lower left sternal border. Positive S3 gallop. LUNGS: Decreased breath sounds at the bases. Very minimal/less rhonchi. No wheezing. EXTREMITIES: Less edema. No cyanosis, no clubbing. Calves are nontender to palpation. GASTROINTESTINAL: Abdomen is soft, nontender, and nondistended. Bowel sounds are positive. SKIN: No acute rash. NEUROLOGIC: Limited at the present time. IMPRESSION: 1. Acute congestive heart failure. 2. Acute bronchitis. 3. Chronic obstructive pulmonary disease. 4. Asthma. 5. Mild anemia. PLAN: The patient appears comfortable this morning. She is not short of breath at rest. She does state to feeling much, much better overall. On physical exam, her bronchospasm continues to resolve. In addition, the oxygen saturation on nasal cannula is now 98%-100%. I will continue with the current nebulizer treatments and oral steroids (changed yesterday) for now. I would continue with the treatment for congestive heart failure as per Cardiology. Input by Dr. Turk is noted. The patient remains on intravenous Lasix. Clinical status of the patient is significantly improved. However, again, the future status/prognosis for this chronically ill patient, does remain guarded. I will discuss the above with Dr. Mann. Ke Farooq MD ANUP
[2018-04-20] MEDS: Insulin Lispro (humaLOG) LOW Coverage SC SCH ×4 (08:40→22:01)
[2018-04-20] MEDS: Insulin Lispro 1 UNITS/0.01 ML SC SCH ×3 (08:40→17:09)
--- NOTE | 2018-04-20 09:26 | PN ---
DATE: 04/20/2018 SUBJECTIVE: I saw her in her room. She is diuresing well with the IV Lasix. She has been there with her . She has no shortness of breath or chest pain. No wheezing today, which is good. She is on Cardizem, Coumadin, DuoNeb, Flonase, Glucophage, Humalog, Januvia, Lanoxin, Lasix 60 IV every 12 hours. She is still diuresing. Levemir, [place] spray, prednisone. She is on 30 Protonix, Pulmicort, Silvadene, Synthroid, Tessalon Perles and Tylenol. PHYSICAL EXAMINATION: VITAL SIGNS: Temperature 98, pulse 56, 107/55 blood pressure, 18 respiratory rate, 98% O2 sat on nasal cannula. HEAD: Atraumatic, normocephalic. Throat is moist. NECK: Supple. HEART: Regular rate. LUNGS: Decreased breath sounds, but no wheezing or rhonchi still which is great. She is on prednisone 30. ABDOMEN: Morbidly, morbidly, morbidly obese, nontender. Positive bowel sounds. No guarding, no rebound or CVA tenderness. EXTREMITIES: +4/4 pitting edema and half the size when she came. Her thighs are definitely streaking down. The ulcers are slowly healing and is less oozing as she diureses. LABORATORY DATA: She has a 9.6 white count, 11.2 hemoglobin, 35.3 hematocrit with 172 platelets. INR is 2.55, holding steady. She has 139 sodium, potassium 4.6, BUN 25, creatinine 0.7, GFR is greater than 60, sugars have been 409, is down to 319. Calcium is 8.7, phosphorous 2.5, magnesium 2.3, total bili is 0.5, AST is 13, ALT is 39, alk phos 66, total protein 7. I am going to increase her Glucophage from 850-1000. ASSESSMENT AND PLAN: Continue with aggressive treatment and care. Check her labs tomorrow. Continue to diurese. I answered many questions from the and discussed at length with the resource engineer. She has congestive heart failure, chronic obstructive pulmonary disease and wounds and we are hoping that she improves over the next 4-5 days. Alan Mann DO [facility] # [id number]
[2018-04-20] MEDS: diltiaZEM 180 mg/24 Hours CD Cap PO SCH (10:16)
[2018-04-20] MEDS: Pantoprazole 40 mg EC Tab PO SCH ×2 (10:16→17:08)
[2018-04-20] MEDS: Fluticasone Nasal 50 mcg/Spray NS SCH (10:18)
[2018-04-20] MEDS: Silver Sulfadiazine 1% Cream (400 gm) TOP SCH ×2 (12:21→18:49)
--- NOTE | 2018-04-20 14:03 | PN ---
DATE: 04/20/2018 ENDO FOLLOWUP NOTE LOCATION: In room 270. SUBJECTIVE: This is a 72-year-old female with recent uncontrolled type 2 insulin-requiring diabetes, now being followed closely for metabolic management. Her glycemic levels are fluctuating as noted overnight despite a hefty insulin regimen already modified and given. Her glucose values have ranged from 319 to 409 mg/dL. Her latest chemistry showed a BUN of 25, sodium 139, potassium 4.6, chloride 98, CO2 of 29, glucose 296 and creatinine 0.7. Her hemoglobin A1c is 6.7%. So at this time, we will modify once again her basal and bolus insulin regimen and increase the Levemir to 40 units subcu at bedtime daily to start tonight. We will also increase the Humalog to 14 units subcu t.i.d. before meals to start at dinnertime today as ordered. We will also continue the dual oral hypoglycemic therapy with metformin given as 1 g b.i.d. and Januvia at 100 mg once daily. We will titrate incrementally as indicated to optimize metabolic control. We will also continue the low-dose correction scale using Humalog insulin as given. We will obtain serial chemistries and supplement accordingly as needed. We will follow. Chela Velez MD
[2018-04-20] MEDS: Digoxin 250 mcg (0.25 mg) Tab PO SCH (14:05)
[2018-04-20] MEDS: Insulin Detemir 100 units/ml Vial (Levemir) SC SCH (22:33)
[2018-04-21] MEDS: Albuterol-Ipratrop 3 mg / 0.5 (3 ml) UD IH SCH ×4 (02:48→19:40)
[2018-04-21] MEDS: Levothyroxine 25 MCG TAB PO SCH (06:25)
[2018-04-21] MEDS: Budesonide 0.5 mg/2 ml Inhal Susp UD IH SCH ×2 (07:21→19:40)
[2018-04-21 07:59] LABS: HEMOGLOBIN 10.8 g/dL (12.0-16.0); MEAN CORPUSCULAR HEMOGLOBIN 26.2 pg (25.0-35.0); MEAN CORPUSCULAR HGB CONC 31.6 g/dl (31.0-37.0); MEAN PLATELET VOLUME 11.2 fl (7.0-11.0); RBC 4.12 10^6/uL (3.5-6.1); RED CELL DISTRIBUTION WIDTH 16.2 % (11.5-14.5); WHITE BLOOD COUNT 10.6 10^3/ul (4.5-11.0)
[2018-04-21 08:02] LABS: INR 2.83; PROTHROMBIN TIME 33.2 SECONDS (9.4-12.5)
[2018-04-21] MEDS: Insulin Lispro (humaLOG) LOW Coverage SC SCH ×4 (08:04→21:52)
[2018-04-21 08:12] LABS: ALB/GLOB RATIO 1.1 (1.1-1.8); ALBUMIN 3.5 g/dL (3.0-4.8); ALT/SGPT 33 U/L (7-56); AST/SGOT 14 U/L (14-36); BLOOD UREA NITROGEN 27 mg/dL (7-21); CALCIUM 8.8 mg/dL (8.4-10.5); GFR NON-AFRICAN AMERICAN > 60
[2018-04-21] MEDS: Insulin Lispro 1 UNITS/0.01 ML SC SCH ×3 (08:18→17:40)
[2018-04-21] MEDS: diltiaZEM 180 mg/24 Hours CD Cap PO SCH (09:31)
[2018-04-21] MEDS: Pantoprazole 40 mg EC Tab PO SCH ×2 (09:32→17:41)
[2018-04-21] MEDS: Fluticasone Nasal 50 mcg/Spray NS SCH (09:32)
[2018-04-21] MEDS: Silver Sulfadiazine 1% Cream (400 gm) TOP SCH ×2 (09:33→17:41)
--- NOTE | 2018-04-21 10:36 | PN ---
DATE: 04/21/2018 PULMONARY PROGRESS NOTE SUBJECTIVE: The patient was seen and examined at bedside. She states she feels better. She is not in respiratory distress and she is receiving oxygen by nasal cannula. She is currently on DuoNeb inhalations. She is also on oral prednisone, budesonide by inhalation and benzonatate for cough. PHYSICAL EXAMINATION: VITAL SIGNS: Her temperature is 97.8, pulse 85, respirations 20, pulse oximetry is 96 on nasal cannula, blood pressure 98/56. HEAD, EARS, NOSE AND THROAT: Within normal limits. NECK: Supple with no jugular vein distention. CARDIOVASCULAR: S1, S2. No S3, regular. PULMONARY: Diminished breath sounds at both bases with no rhonchi, rales or wheezing. GI: Soft, nontender. Morbid obesity, difficult to evaluate. EXTREMITIES: 3+ pedal edema. LABORATORY DATA: Reviewed. WBC is 10.6, hemoglobin 10.8 and INR is 2.83 today. ASSESSMENT: 1. Acute bronchitis. 2. Chronic obstructive pulmonary disease. 3. Acute congestive heart failure. 4. Bronchial asthma and mild anemia. PLAN: The patient is more comfortable this morning. She is sating good on nasal cannula. Bronchospasm is resolving. Steroids can be tapered. Continue with ordered nebulizer treatment. Valerio Pritchett MD
--- NOTE | 2018-04-21 10:48 | PN ---
DATE: 04/21/2018 SUBJECTIVE: She is doing well. She is breathing well. She is eating well. She is feeling better. MEDICATIONS: She is on Cardizem, Coumadin, DuoNebs, Flonase, Glucophage, insulin, Januvia, Lanoxin, Lasix, Levemir, [place] spray, prednisone 30, Protonix, Pulmicort, Silvadene, Synthroid, Tessalon and Tylenol. PHYSICAL EXAMINATION: VITAL SIGNS: She has a 97.8 temp, 85 pulse, 118/68 blood pressure, 18 respiratory rate, 96% O2 sat on nasal cannula. HEENT: Head is atraumatic, normocephalic. Throat is moist. NECK: Supple. HEART: Regular rate. LUNGS: Decreased breath sounds, but clear. No wheezes. No rhonchi. No rales. ABDOMEN: Soft, nontender. Positive bowel sounds. Morbidly obese, morbidly obese, morbidly obese. EXTREMITIES: Have still +4/4 pitting edema and is still half the size. Both her thighs are less oozing, ulcers are healing and is less swelling to her. GENITOURINARY: She is putting out she took a count about 8924-6184 mL in 24 hours of urine. Hopefully, when it gets closer to a 1000, we will be able to discharge her. LABORATORY DATA: She has a 10.6 white count 10.8 hemoglobin, 34.2 hematocrit with 193 platelets. 2.83 INR. 137 sodium, potassium 4, BUN 27, creatinine 0.7, GFR is greater than 60, sugar is 177, calcium is 8.8, total bili is 0.6, AST is 14, ALT is 33, alk phos 56, total protein 6.7. ASSESSMENT AND PLAN: She still has this change in her left inside cheek and she wants ENT to come and maybe do a biopsy of it. I will call ENT back in to see if they would not mind take another look at the inside of her cheek. There is an issue there. So I want to see what they think about that. I will continue with aggressive treatment and care. Check her labs tomorrow. Discussed at length with the , answered many questions. This is a progress note on Maria Isabel Bowden who has multiple issues with congestive heart failure, chronic obstructive pulmonary disease, bilateral wounds and an inside cheek change. Alan Mann DO [facility] # [id number]
--- NOTE | 2018-04-21 12:30 | CP.PCM.PN ---
Subjective - Date & Time of Evaluation Date of Evaluation: 04/21/18 Time of Evaluation: 12:24 - Subjective Subjective: 72 y/o AA female admitted to [facility] [place]. ENT has been reconsulted for left buccal lesion. Pt states she previously had an infection of gums and lips that was treated. Pt has mild discomfort. Pt is homebound and unable to ambulate. Pt has poor dentition Objective - Vital Signs/Intake and Output Vital Signs (last 24 hours): Temp Pulse Resp BP Pulse Ox 97.8 F 82 18 118/68 96 04/21/18 06:00 04/21/18 09:31 04/21/18 06:00 04/21/18 09:31 04/21/18 06:00 Intake and Output: 04/21/18 04/21/18 06:59 18:59 Intake Total 240 Output Total 1350 Balance -1110 - Medications Medications: Current Medications Acetaminophen (Tylenol 325mg Tab) 650 mg PO Q6H PRN PRN Reason: Headache Last Admin: 04/16/18 11:24 Dose: 650 mg Albuterol/Ipratropium (Duoneb 3 Mg/0.5 Mg (3 Ml) Ud) 3 ml IH [id number] [facility] Last Admin: 04/21/18 07:21 Dose: 3 ml Albuterol/Ipratropium (Duoneb 3 Mg/0.5 Mg (3 Ml) Ud) 3 ml IH Q2H PRN PRN Reason: Shortness of Breath Benzonatate (Tessalon Perles) 200 mg PO BID [facility] Last Admin: 04/21/18 09:31 Dose: 200 mg Budesonide (Pulmicort Respules) 0.5 mg IH [id number] [facility] Last Admin: 04/21/18 07:21 Dose: 0.5 mg Digoxin (Lanoxin) 0.25 mg PO 1400 [facility] Last Admin: 04/20/18 14:05 Dose: 0.25 mg Diltiazem HCl (Cardizem Cd) 180 mg PO DAILY [facility] Last Admin: 04/21/18 09:31 Dose: 180 mg Fluticasone Propionate (Flonase) 1 actuation NS DAILY [facility] Last Admin: 04/21/18 09:32 Dose: 2 spr Furosemide (Lasix) 60 mg IVP Q12 [facility] Last Admin: 04/21/18 09:31 Dose: 60 mg Insulin Detemir (Levemir) 40 unit SC HS [facility] Last Admin: 04/20/18 22:33 Dose: 40 units Insulin Human Lispro (Humalog Low) 0 units SC ACHS [facility] PRN Reason: Protocol Last Admin: 04/21/18 08:04 Dose: Not Given Insulin Human Lispro (Humalog) 14 units SC AC [facility] Last Admin: 04/21/18 08:18 Dose: 14 units Levothyroxine Sodium (Synthroid) 25 mcg PO 0600 [facility] Last Admin: 04/21/18 06:25 Dose: 25 mcg Metformin HCl (Glucophage) 1,000 mg PO BID [facility] Last Admin: 04/21/18 09:32 Dose: 1,000 mg Pantoprazole Sodium (Protonix Ec Tab) 40 mg PO BID [facility] Last Admin: 04/21/18 09:32 Dose: 40 mg Prednisone (Prednisone Tab) 30 mg PO DAILY [facility] Last Admin: 04/21/18 09:32 Dose: 30 mg Silver Sulfadiazine (Silvadene 1%) 1 ea TOP BID [facility] Last Admin: 04/21/18 09:33 Dose: 1 applic Sitagliptin Phosphate (Januvia) 100 mg PO DAILY [facility] Last Admin: 04/21/18 09:32 Dose: 100 mg Sodium Chloride ([place] Nasal [place]) 1 ml NS TID [facility] Last Admin: 04/21/18 09:32 Dose: 2 spr Warfarin Sodium (Coumadin) 3 mg PO 1800 [facility] PRN Reason: Protocol Last Admin: 04/20/18 17:08 Dose: 3 mg - Labs Labs: 04/21/18 06:45 04/21/18 06:45 PT 33.2 SECONDS (9.4-12.5) H 04/21/18 06:45 INR 2.83 04/21/18 06:45 - Constitutional Appears: Well, Non-toxic - Head Exam Head Exam: ATRAUMATIC, NORMAL INSPECTION - Eye Exam Eye Exam: EOMI, PERRL - ENT Exam ENT Exam: Mucous Membranes Moist Additional comments: Left buccal area of irritation, no mass, Jagged upper molars with dental caries. - Neck Exam Neck Exam: Full ROM, Normal Inspection Assessment and Plan (1) Oral ulceration Status: Acute (2) Dental caries Status: Acute (3) COPD (chronic obstructive pulmonary disease) Status: Acute (4) Congestive heart failure Status: Acute (5) Acute exacerbation of CHF (congestive heart failure) Status: Acute (6) Asthma exacerbation with COPD (chronic obstructive pulmonary disease) Status: Acute (7) Atrial fibrillation with rapid ventricular response Status: Acute (8) Bronchitis Status: Acute (9) Diabetes mellitus Status: Acute (10) Ejection fraction < 50% Status: Acute (11) Palpitations Status: Acute (12) Pulmonary hypertension Status: Acute (13) UTI (urinary tract infection) Status: Acute (14) Ulcer Status: Acute (15) Chronic venous stasis dermatitis of both lower extremities Status: Chronic (16) Morbid obesity Status: Chronic - Assessment and Plan (Free Text) Plan: Patient has irritation/ulceration of left buccal mucosa this is most likely secondary to chronic tooth irritation secondary to dental caries creating sharp teeth. Patient will need teeth extracted to eliminate the chronic irritation/ trauma. This may be a challenge secondary to the patient's home bound status. If area breaks open consider magic mouthwash (abx and lidocaine). At this time there is no break of the mucosa therefore conservative management.
--- NOTE | 2018-04-21 14:11 | PN ---
DATE: 04/21/2018 ENDOCRINOLOGY FOLLOWUP LOCATION: Room 270. This is a 72-year-old female with recent uncontrolled type 2 insulin-requiring diabetes presenting here with acute exacerbation of COPD and now being followed closely for metabolic management. Her glycemic levels are fluctuating, but much improved as noted overnight with glucose values ranging from 184 to 196 mg/dL. Her latest chemistry shows a BUN of 27, sodium 137, potassium 4, chloride 96, CO2 33, glucose 177 and creatinine 0.7. So at this time, we will continue the same basal and bolus insulin regimen to allow for dose equilibration and keep her on the Humalog given as 14 units t.i.d. before meals as ordered. We will continue the Levemir given as 40 units subcu at bedtime daily as given. We will continue also the low-dose correction scale using Humalog insulin as ordered. We will follow and advise accordingly. Chela Velez MD
[2018-04-21] MEDS: Digoxin 250 mcg (0.25 mg) Tab PO SCH (14:34)
[2018-04-21] MEDS: Insulin Detemir 100 units/ml Vial (Levemir) SC SCH (21:52)
[2018-04-22] MEDS: Albuterol-Ipratrop 3 mg / 0.5 (3 ml) UD IH SCH ×4 (01:06→20:34)
[2018-04-22] MEDS: Levothyroxine 25 MCG TAB PO SCH (05:34)
[2018-04-22] MEDS: Budesonide 0.5 mg/2 ml Inhal Susp UD IH SCH ×2 (07:14→20:35)
[2018-04-22] MEDS: Insulin Lispro (humaLOG) LOW Coverage SC SCH ×4 (08:34→23:24)
[2018-04-22] MEDS: Insulin Lispro 1 UNITS/0.01 ML SC SCH ×3 (08:38→17:00)
[2018-04-22] MEDS: diltiaZEM 180 mg/24 Hours CD Cap PO SCH (09:24)
[2018-04-22] MEDS: Pantoprazole 40 mg EC Tab PO SCH ×2 (09:27→17:13)
[2018-04-22] MEDS: Fluticasone Nasal 50 mcg/Spray NS SCH (10:17)
[2018-04-22] MEDS: Silver Sulfadiazine 1% Cream (400 gm) TOP SCH ×2 (10:18→17:14)
--- NOTE | 2018-04-22 10:44 | PN ---
DATE: 04/22/2018 PULMONARY PROGRESS NOTE SUBJECTIVE: The patient was seen and examined at bedside. She is receiving currently an inhalation treatment with DuoNeb. She is on prednisone 30 mg daily and she is also on inhalant steroid in the form of budesonide. She is receiving benzonatate for cough. PHYSICAL EXAMINATION: VITAL SIGNS: Her temperature is 97.8, pulse 88, respirations 20, pulse oximetry is 100 on nasal cannula, blood pressure 100/68. HEAD, EARS, NOSE AND THROAT: Normocephalic and atraumatic. NECK: Supple, obese. No jugular vein distention. CARDIOVASCULAR: S1, S2. No S3, regular. PULMONARY: Diminished breath sounds at both bases. No wheezing. GI: Soft, obese, difficult to examine. EXTREMITIES: 3+ pedal edema. No cyanosis. SKIN: No acute skin rash. NEUROLOGIC: No focal deficits. ASSESSMENT: 1. Chronic obstructive pulmonary disease, exacerbated. 2. Morbid obesity. 3. Obstructive sleep apnea. 4. Congestive heart failure. PLAN: To continue with current administration of bronchodilator therapy. The steroids can be tapered gradually. We will follow jennifer. Valerio Pritchett MD
--- NOTE | 2018-04-22 10:54 | PN ---
DATE: 04/22/2018 ENDO FOLLOWUP NOTE LOCATION: In room 270. SUBJECTIVE: This is a 72-year-old female with recent uncontrolled type 2 insulin-requiring diabetes, now being followed closely for metabolic management. She presented here with acute exacerbation of COPD and since then improved clinically and metabolically as noted thereof. Her glycemic levels are fluctuating, but much improved at this time and the glucose levels have ranged from 156-166 and 170 mg/dL. Her latest chemistry showed a BUN of 27, sodium 137, potassium 4, chloride 96, CO2 of 33, glucose 177 and creatinine 0.7. So at this time, we will continue the same basal and bolus insulin regimen to allow for full dose equilibration and keep her on the Humalog given as 14 units t.i.d. before meals as ordered. We will also continue her basal insulin given as Levemir at 40 units subcu at bedtime daily as given. We will titrate incrementally as indicated to optimize metabolic control. We will also continue the low-dose correction scale using Humalog insulin as ordered to obviate hypoglycemia as given. We will obtain serial chemistries and supplement accordingly as needed. We will follow. Chela Velez MD
--- NOTE | 2018-04-22 13:39 | PN ---
DATE: 04/22/2018 SUBJECTIVE: She is resting comfortably in bed. She is still diuresing, about 2000 mL in 24 hours of urine. No shortness of breath. No wheezing anymore. She is on diltiazem, Coumadin, DuoNeb, Flonase, Glucophage up to 1000, insulin, Januvia, Lanoxin, Lasix 60 IV every 12 hours, Levemir, [place] spray, prednisone she is on 30, Protonix, Pulmicort, Silvadene, Synthroid, Tessalon and Tylenol. I will decrease the prednisone down to 20 mg a day. She has been doing well. PHYSICAL EXAMINATION: VITAL SIGNS: She has a 97.8 temperature, 88 pulse, 109/68 blood pressure, 19 respiratory rate, 100% O2 sat on 3 liters. HEENT: Head is atraumatic, normocephalic. Throat is moist. NECK: Supple. HEART: Actually very regular. LUNGS: Clear to auscultation. No wheezing, no rhonchi, no rales. ABDOMEN: Morbidly, morbidly, morbidly obese; nontender. Positive bowel sounds. EXTREMITIES: Still very swollen thighs, but better. The oozing is less and no skin issues. ASSESSMENT AND PLAN: She does have Pseudomonas aeruginosa in the complete thigh culture. I will call in Infectious Disease to get their opinion of that and she is here for congestive heart failure, chronic obstructive pulmonary disease and wounds. Continue aggressive treatment and care. Alan Mann DO
[2018-04-22] MEDS: Meropenem IV 1 gm in NS 50 ML IVPB SCH ×2 (14:10→22:28)
[2018-04-22] MEDS: Digoxin 250 mcg (0.25 mg) Tab PO SCH (14:11)
[2018-04-22] MEDS: Insulin Detemir 100 units/ml Vial (Levemir) SC SCH (22:29)
[2018-04-23] MEDS: Albuterol-Ipratrop 3 mg / 0.5 (3 ml) UD IH SCH ×4 (01:27→20:03)
[2018-04-23] MEDS: Meropenem IV 1 gm in NS 50 ML IVPB SCH ×3 (05:47→22:39)
[2018-04-23] MEDS: Levothyroxine 25 MCG TAB PO SCH (06:22)
--- NOTE | 2018-04-23 07:29 | PN ---
DATE: 04/23/2018 PULMONARY NOTE SUBJECTIVE: The patient appears comfortable this morning. She is not short of breath at rest. PHYSICAL EXAMINATION: VITAL SIGNS: Temperature is 97.5, pulse 80, respirations 19, blood pressure 91/50. Oxygen saturation on nasal cannula is 97%. HEENT: Normocephalic, atraumatic. Positive JVD. CARDIOVASCULAR: Systolic ejection murmur at the lower left sternal border. Positive S3 gallop. LUNGS: Decreased breath sounds at the bases. Minimal/less rhonchi. No wheezing. EXTREMITIES: Less edema. No cyanosis, no clubbing. Calves are nontender to palpation. GASTROINTESTINAL: Abdomen is soft, nontender, and nondistended. Bowel sounds are positive. SKIN: No acute rash. NEUROLOGIC: Limited at the present time. IMPRESSION: 1. Acute congestive heart failure. 2. Acute bronchitis. 3. Chronic obstructive pulmonary disease. 4. Asthma. 5. Mild anemia. PLAN: The patient appears comfortable this morning. She is not short of breath at rest. She does state to feeling much better overall. On physical exam, her bronchospasm continues to resolve. In addition, there is no significant alveolar-arterial gradient. I will continue with the current nebulizer treatments and oral steroids (decreased yesterday) for now. The patient remains on intravenous Lasix. Input by Cardiology is noted. Clinical status of the patient is significantly improved overall. However, again, the future status/prognosis of this patient does remain guarded. I will discuss the above Dr. Mann. Ke Farooq MD MTDD
--- NOTE | 2018-04-23 07:45 | CP.PCM.CON ---
<Vi Matos - Last Filed: 04/23/18 14:34> History of Present Illness - History of Present Illness History of Present Illness: Pgy3 ID Consult note for Dr. Trujillo 72yo female PMHx morbid obesity who is bed bound, COPD, DC, CHF, Afib, chronic lymphedema presented with acute COPD exacerbation and CHF. ID consulted for chronic lower extremity wounds and IV abx for Pseudomonas in the wound. Patient has had chronic lymphedema for many years and has been treated for ulcers on her lateral thighs chronically. She had a home health nurse who does dressing changes with topical Silvadene. She denied any worsening of her wounds and has no pain or drainage of the sites. She reported her wounds drain clear liquid and denied any changes in odor. She did admit to some headaches, acid reflux, wheezing, and a productive cough. She also complained of some mild epistaxis. On ROS patient denied any fever, chills, chest pain, palpitations, SOB, nausea, vomiting, bowel/bladder complaints. PMHx: COPD, DMT2, Afib, DC, CHF, chronic severe lymphedema of bilateral lower extremities, hypothyroidism PSurgHx: R lower extremity abscess incision and drainage (years ago), excision of L-sided abdominal wall mass, both by Dr. Darnell Meds: pls see chart ALL: NKDA FamHx: heart disease (mother). Denies family hx of cancer SocHx: no smoking or alcohol use; lives at home with Review of Systems - Review of Systems All systems: reviewed and no additional remarkable complaints except Review of Systems: as per HPI Past Patient History - Infectious Disease Hx of Infectious Diseases: None - Tetanus Immunizations Tetanus Immunization: Unknown - Past Social History Smoking Status: Never Smoked - CARDIAC Hx Cardiac Disorders: Yes (lymphedema) Hx Angina: Yes Hx Cardia Arrhythmia: Yes Hx Congestive Heart Failure: Yes Hx Peripheral Edema: Yes Hx Peripheral Vascular Disease: Yes - PULMONARY Hx Respiratory Disorders: Yes (using 02 at home) Hx Asthma: Yes Hx Chronic Obstructive Pulmonary Disease (COPD): Yes Hx Emphysema: Yes Hx Pneumonia: Yes - NEUROLOGICAL Hx Neurological Disorder: No - HEENT Hx HEENT Problems: Yes (glasses) - RENAL Hx Chronic Kidney Disease: No - ENDOCRINE/METABOLIC Hx Endocrine Disorders: Yes Hx Diabetes Mellitus Type 2: Yes - HEMATOLOGICAL/ONCOLOGICAL Hx Blood Disorders: Yes (SEPTICEMIA) - INTEGUMENTARY Hx Dermatological Problems: Yes Other/Comment: pt is obese, right outer thigh skin openings healed, redness, hard brown dry skin, dimpling to left thigh, pt c/o that she, sometimes has drainage from left thigh. both lower legs and feet dry skin. redness and discoloration to right abd fold healed, pt unable to turn in bed to assess skin on back, ble +4 pitting edema redness - MUSCULOSKELETAL/RHEUMATOLOGICAL Hx Falls: No - GASTROINTESTINAL Hx Gastrointestinal Disorders: Yes (benign mass removed from abd 30 yrs ago) - GENITOURINARY/GYNECOLOGICAL Hx Genitourinary Disorders: Yes Hx Incontinence: Yes (urine and stool) Hx Urinary Tract Infection: Yes - PSYCHIATRIC Hx Psychophysiologic Disorder: No - SURGICAL HISTORY Hx Cardiac Catheterization: Yes Other/Comment: cardiac cath 2005, picc line, sx to right leg for an infection - ANESTHESIA Hx Anesthesia: Yes Meds Allergies/Adverse Reactions: Allergies Allergy/AdvReac Type Severity Reaction Status Date / Time No Known Allergies Allergy Verified 02/17/17 22:58 - Medications Medications: Current Medications Acetaminophen (Tylenol 325mg Tab) 650 mg PO Q6H PRN PRN Reason: Headache Last Admin: 04/16/18 11:24 Dose: 650 mg Albuterol/Ipratropium (Duoneb 3 Mg/0.5 Mg (3 Ml) Ud) 3 ml IH [id number] [facility] Last Admin: 04/23/18 01:27 Dose: Not Given Albuterol/Ipratropium (Duoneb 3 Mg/0.5 Mg (3 Ml) Ud) 3 ml IH Q2H PRN PRN Reason: Shortness of Breath Benzonatate (Tessalon Perles) 200 mg PO BID [facility] Last Admin: 04/22/18 17:13 Dose: 200 mg Budesonide (Pulmicort Respules) 0.5 mg IH [id number] [facility] Last Admin: 04/22/18 20:35 Dose: 0.5 mg Digoxin (Lanoxin) 0.25 mg PO 1400 [facility] Last Admin: 04/22/18 14:11 Dose: 0.25 mg Diltiazem HCl (Cardizem Cd) 180 mg PO DAILY [facility] Last Admin: 04/22/18 09:24 Dose: 180 mg Fluticasone Propionate (Flonase) 1 actuation NS DAILY [facility] Last Admin: 04/22/18 10:17 Dose: 2 spr Furosemide (Lasix) 60 mg IVP Q12 [facility] Last Admin: 04/22/18 22:28 Dose: 60 mg Meropenem (Merrem Iv 1 Gm Premix) 50 mls @ 100 mls/hr IVPB Q8 [facility] PRN Reason: Protocol Last Admin: 04/23/18 05:47 Dose: 100 mls/hr Insulin Detemir (Levemir) 40 unit SC HS [facility] Last Admin: 04/22/18 22:29 Dose: 40 units Insulin Human Lispro (Humalog Low) 0 units SC ACHS [facility] PRN Reason: Protocol Last Admin: 04/22/18 23:24 Dose: Not Given Insulin Human Lispro (Humalog) 14 units SC AC [facility] Last Admin: 04/22/18 17:00 Dose: Not Given Levothyroxine Sodium (Synthroid) 25 mcg PO 0600 [facility] Last Admin: 04/23/18 06:22 Dose: 25 mcg Metformin HCl (Glucophage) 1,000 mg PO BID [facility] Last Admin: 04/22/18 17:13 Dose: 1,000 mg Pantoprazole Sodium (Protonix Ec Tab) 40 mg PO BID [facility] Last Admin: 04/22/18 17:13 Dose: 40 mg Prednisone (Prednisone Tab) 20 mg PO DAILY [facility] Silver Sulfadiazine (Silvadene 1%) 1 ea TOP BID [facility] Last Admin: 04/22/18 17:14 Dose: 1 applic Sitagliptin Phosphate (Januvia) 100 mg PO DAILY [facility] Last Admin: 04/22/18 09:26 Dose: 100 mg Sodium Chloride ([place] Nasal [place]) 1 ml NS TID [facility] Last Admin: 04/22/18 14:25 Dose: 2 spr Warfarin Sodium (Coumadin) 3 mg PO 1800 [facility] PRN Reason: Protocol Last Admin: 04/22/18 17:13 Dose: 3 mg Physical Exam - Constitutional Appears: Chronically Ill, Other (morbidly obese) - Head Exam Head Exam: ATRAUMATIC, NORMAL INSPECTION, NORMOCEPHALIC - Eye Exam Eye Exam: EOMI, Normal appearance. absent: Conjunctival injection, Scleral icterus - ENT Exam ENT Exam: Mucous Membranes Moist Additional comments: NC in place - Respiratory Exam Respiratory Exam: Decreased Breath Sounds, Rhonchi, Wheezes, NORMAL BREATHING PATTERN. absent: Accessory Muscle Use, Clear to Auscultation Bilateral, Respiratory Distress - Cardiovascular Exam Cardiovascular Exam: Tachycardia, +S1, +S2, Systolic Murmur - GI/Abdominal Exam GI & Abdominal Exam: Distended (obese abdomen), Soft. absent: Tenderness - Rectal Exam Rectal Exam: Deferred - Extremities Exam Extremities exam: Positive for: pedal edema. Negative for: normal inspection Additional comments: Large masses lateral thighs b/l- Brawny induration, hyperkeratosis, and hyperpigmentation over lateral thighs, secondary to chronic lymphedema. Two small 1 cm skin tears over anterior L thigh with some weeping of clear serious fluid. No open wounds or skin tears observed on limited exam of dorsal aspect of leg pannus. R thigh associated with 12 cm full-thickness digitative ulcer with sloped edges. Serous drainage observed on bandage. Exam limited secondary to massive lymphedema. Profound pitting edema over feet. Feet are warm, sensation intact. Unable to palpate pedal pulses 2/2 edema. Skin over feet is warm soft, intact. No calcaneal ulcerations or skin breakdown on feet bilaterally. - Neurological Exam Neurological exam: Alert, Oriented x3 - Psychiatric Exam Psychiatric exam: Normal Affect, Normal Mood Results - Vital Signs Recent Vital Signs: Last Vital Signs Temp 97.5 F L 04/23/18 06:00 Pulse 80 04/23/18 06:00 Resp 19 04/23/18 06:00 BP 91/50 L 04/23/18 06:00 Pulse Ox 97 04/23/18 06:00 - Labs Result Diagrams: 04/23/18 08:00 04/23/18 08:00 Labs: Laboratory Results - last 24 hr 04/22/18 04/22/18 16:28 21:32 POC Glucose (mg/dL) 113 H 164 H Assessment & Plan - Assessment and Plan (Free Text) Assessment: 72yo female PMHx morbid obesity who is bed bound, COPD, DC, CHF, Afib, chronic lymphedema presented with acute COPD exacerbation and CHF. ID consulted for chronic lower extremity wounds and IV abx for Pseudomonas in the wound. Plan: -Would culture 04/20: b/l LE +Pseudomonas -continue Merrem 1gm q8 -continue wound care -continue management as per primary and consultants ID will continue to follow Discussed with Dr. Ronnie Matos PGY3 <Brandan Trujillo - Last Filed: 04/23/18 19:15> Meds - Medications Medications: Current Medications Acetaminophen (Tylenol 325mg Tab) 650 mg PO Q6H PRN PRN Reason: Headache Last Admin: 04/16/18 11:24 Dose: 650 mg Albuterol/Ipratropium (Duoneb 3 Mg/0.5 Mg (3 Ml) Ud) 3 ml IH [id number] [facility] Last Admin: 04/23/18 13:38 Dose: 3 ml Albuterol/Ipratropium (Duoneb 3 Mg/0.5 Mg (3 Ml) Ud) 3 ml IH Q2H PRN PRN Reason: Shortness of Breath Benzonatate (Tessalon Perles) 200 mg PO BID [facility] Last Admin: 04/23/18 18:02 Dose: 200 mg Budesonide (Pulmicort Respules) 0.5 mg IH [id number] [facility] Last Admin: 04/23/18 07:46 Dose: 0.5 mg Digoxin (Lanoxin) 0.25 mg PO 1400 [facility] Last Admin: 04/23/18 15:17 Dose: 0.25 mg Diltiazem HCl (Cardizem Cd) 180 mg PO DAILY [facility] Last Admin: 04/23/18 12:41 Dose: 180 mg Fluticasone Propionate (Flonase) 1 actuation NS DAILY [facility] Last Admin: 04/23/18 11:28 Dose: 1 spr Furosemide (Lasix) 60 mg IVP Q12 [facility] Last Admin: 04/23/18 11:54 Dose: Not Given Meropenem (Merrem Iv 1 Gm Premix) 50 mls @ 100 mls/hr IVPB Q8 [facility] PRN Reason: Protocol Last Admin: 04/23/18 15:18 Dose: 100 mls/hr Insulin Detemir (Levemir) 40 unit SC HS [facility] Last Admin: 04/22/18 22:29 Dose: 40 units Insulin Human Lispro (Humalog Low) 0 units SC ACHS [facility] PRN Reason: Protocol Last Admin: 04/23/18 16:51 Dose: Not Given Levothyroxine Sodium (Synthroid) 25 mcg PO 0600 [facility] Last Admin: 04/23/18 06:22 Dose: 25 mcg Metformin HCl (Glucophage) 1,000 mg PO BID [facility] Last Admin: 04/23/18 18:01 Dose: 1,000 mg Pantoprazole Sodium (Protonix Ec Tab) 40 mg PO BID [facility] Last Admin: 04/23/18 18:01 Dose: 40 mg Prednisone (Prednisone Tab) 20 mg PO DAILY [facility] Last Admin: 04/23/18 11:27 Dose: 20 mg Silver Sulfadiazine (Silvadene 1%) 1 ea TOP BID [facility] Last Admin: 04/23/18 17:55 Dose: Not Given Sitagliptin Phosphate (Januvia) 100 mg PO DAILY [facility] Last Admin: 04/23/18 11:26 Dose: 100 mg Sodium Chloride ([place] Nasal [place]) 1 ml NS TID [facility] Last Admin: 04/23/18 18:03 Dose: 1 spr Warfarin Sodium (Coumadin) 3 mg PO 1800 [facility] PRN Reason: Protocol Last Admin: 04/23/18 18:02 Dose: 3 mg Results - Vital Signs Recent Vital Signs: Last Vital Signs Temp 97.5 F L 04/23/18 17:46 Pulse 60 04/23/18 17:46 Resp 18 04/23/18 17:46 BP 105/66 04/23/18 17:46 Pulse Ox 97 04/23/18 06:00 - Labs Result Diagrams: 04/23/18 08:00 04/23/18 08:00 Labs: Laboratory Results - last 24 hr 04/22/18 04/23/18 04/23/18 21:32 07:30 08:00 WBC 12.3 H RBC 4.28 Hgb 11.3 L Hct 35.7 L MCV 83.4 MCH 26.4 MCHC 31.7 RDW 16.5 H Plt Count 190 MPV 11.5 H PT INR Sodium Potassium Chloride Carbon Dioxide Anion Gap BUN Creatinine Est GFR ( Amer) Est GFR (Non-Af Amer) POC Glucose (mg/dL) 164 H 126 H Random Glucose Calcium Total Bilirubin AST ALT Alkaline Phosphatase Total Protein Albumin Globulin Albumin/Globulin Ratio 04/23/18 04/23/18 04/23/18 08:00 08:00 11:46 WBC RBC Hgb Hct MCV MCH MCHC RDW Plt Count MPV PT 32.0 H INR 2.73 Sodium 138 Potassium 4.3 Chloride 96 L Carbon Dioxide 33 Anion Gap 13 BUN 29 H Creatinine 0.6 L Est GFR ( Amer) > 60 Est GFR (Non-Af Amer) > 60 POC Glucose (mg/dL) 120 H Random Glucose 120 H Calcium 9.0 Total Bilirubin 0.7 AST 13 L ALT 25 Alkaline Phosphatase 63 Total Protein 6.6 Albumin 3.5 Globulin 3.1 Albumin/Globulin Ratio 1.1 04/23/18 16:05 WBC RBC Hgb Hct MCV MCH MCHC RDW Plt Count MPV PT INR Sodium Potassium Chloride Carbon Dioxide Anion Gap BUN Creatinine Est GFR ( Amer) Est GFR (Non-Af Amer) POC Glucose (mg/dL) 119 H Random Glucose Calcium Total Bilirubin AST ALT Alkaline Phosphatase Total Protein Albumin Globulin Albumin/Globulin Ratio Assessment & Plan - Assessment and Plan (Free Text) Plan: Infectious Diseases Attending Physician Addendum Patient seen and examined, discussed with medical billing supervisor. I have reviewed the pertinent clinical information for the patient, including history of present illness, medical, personal and social histories, lab results and imaging findings. I agree with the above findings, assessment and plan. In addition, we have started Merrem for this patient with Pseudomonas bilateral infected wound on lower extremities. Continue local wound care and monitor clinically.
[2018-04-23] MEDS: Budesonide 0.5 mg/2 ml Inhal Susp UD IH SCH ×2 (07:46→20:03)
[2018-04-23] MEDS: Insulin Lispro 1 UNITS/0.01 ML SC SCH (08:10)
[2018-04-23] MEDS: Insulin Lispro (humaLOG) LOW Coverage SC SCH ×4 (08:10→22:35)
[2018-04-23 08:12] LABS: HEMOGLOBIN 11.3 g/dL (12.0-16.0); MEAN CELL VOLUME 83.4 fl (80.0-105.0); MEAN CORPUSCULAR HEMOGLOBIN 26.4 pg (25.0-35.0); MEAN CORPUSCULAR HGB CONC 31.7 g/dl (31.0-37.0); MEAN PLATELET VOLUME 11.5 fl (7.0-11.0); RBC 4.28 10^6/uL (3.5-6.1); RED CELL DISTRIBUTION WIDTH 16.5 % (11.5-14.5); WHITE BLOOD COUNT 12.3 10^3/ul (4.5-11.0)
[2018-04-23 08:14] LABS: INR 2.73
[2018-04-23 08:18] LABS: ALB/GLOB RATIO 1.1 (1.1-1.8); ALBUMIN 3.5 g/dL (3.0-4.8); ALT/SGPT 25 U/L (7-56); AST/SGOT 13 U/L (14-36); BLOOD UREA NITROGEN 29 mg/dL (7-21); GFR NON-AFRICAN AMERICAN > 60
--- NOTE | 2018-04-23 09:25 | CON ---
DATE: 04/22/2018 HISTORY OF PRESENT ILLNESS: The patient is a 72-year-old female who is currently hospitalized in the medical floor for multiple medical issues. Please refer to medical note by Dr. Pritchett for history of chronic depression and anxiety. No history of prior suicide attempts, hospitalization, or psychotropic medication trials, who was currently experiencing depression and anxiety on the medical floor. Psychiatry was consulted to determine if we could aid with current symptoms at this time. I met with the patient at bedside and she is alert and cooperative to questioning. She is well oriented to current location, circumstances, month, and year. She presents as coherent and responsive for relevant questioning and consistence. At times, her speech can be slurred and soft; however, she can be redirected, and can communicate her needs well in this regard. The patient admits that she has been depressed and notes the symptoms of low energy, anhedonia, low motivation, lability, and feeling overwhelmed. The patient denies any crying spells, helplessness, or suicidal thought. Her sleep has also been restless. In general, the patient reports that her main stressor is frustration with medical issues as he is getting more dependent. The patient is opened to try an antidepressant as she never tried one before and is willing to try one if it will help with her current functioning and tolerance to current medical stressors. I discussed the option of with her. I reviewed therapeutic with her multiple times and common side effects and indication of the medication and she gives consent to try with this medication tonight. Of note, there have been no issues with cooperation or agitation on the medical floor thus far. Her insight and judgement are fair. VITAL SIGNS: Reviewed. LABORATORY DATA: Reviewed. The patient is not on any psychiatric medication at this time. Regarding her psychiatric history, the patient denies any psychiatric hospitalizations, suicide attempt, prior psychiatric outpatient treatment, or medication trail. criteria for inpatient hospitalization at this time. She does not appear to be interested in this option; however, if symptoms do worsen, topic. At this time, she is not in acute danger to herself or others and can be discharged if she is medically cleared; however, as mentioned before, Psychiatry will continue to follow. Angel Regalado MD [facility] # [id number]
[2018-04-23] MEDS: Pantoprazole 40 mg EC Tab PO SCH ×2 (11:27→18:01)
[2018-04-23] MEDS: Silver Sulfadiazine 1% Cream (400 gm) TOP SCH ×2 (11:27→17:55)
[2018-04-23] MEDS: Fluticasone Nasal 50 mcg/Spray NS SCH (11:28)
--- NOTE | 2018-04-23 11:42 | CP.PCM.PN ---
Subjective - Date & Time of Evaluation Date of Evaluation: 04/23/18 Time of Evaluation: 11:40 - Subjective Subjective: PGY 1 Progress Note for: Dr. Velez Pt was seen and examined this morning at bedside. She states that she has no acute complaints at this time. She admits to being compliant with her diabetic medication. She denies any feeling of weakness, fatigue, nausea, vomiting, or tremors. Objective - Vital Signs/Intake and Output Vital Signs (last 24 hours): Temp Pulse Resp BP Pulse Ox 97.5 F L 80 19 91/50 L 97 04/23/18 06:00 04/23/18 06:00 04/23/18 06:00 04/23/18 06:00 04/23/18 06:00 Intake and Output: 04/23/18 04/23/18 06:59 18:59 Intake Total 2000 Output Total 1000 Balance 1000 - Medications Medications: Current Medications Acetaminophen (Tylenol 325mg Tab) 650 mg PO Q6H PRN PRN Reason: Headache Last Admin: 04/16/18 11:24 Dose: 650 mg Albuterol/Ipratropium (Duoneb 3 Mg/0.5 Mg (3 Ml) Ud) 3 ml IH [id number] [facility] Last Admin: 04/23/18 07:46 Dose: 3 ml Albuterol/Ipratropium (Duoneb 3 Mg/0.5 Mg (3 Ml) Ud) 3 ml IH Q2H PRN PRN Reason: Shortness of Breath Benzonatate (Tessalon Perles) 200 mg PO BID [facility] Last Admin: 04/23/18 11:26 Dose: 200 mg Budesonide (Pulmicort Respules) 0.5 mg IH [id number] [facility] Last Admin: 04/23/18 07:46 Dose: 0.5 mg Digoxin (Lanoxin) 0.25 mg PO 1400 [facility] Last Admin: 04/22/18 14:11 Dose: 0.25 mg Diltiazem HCl (Cardizem Cd) 180 mg PO DAILY [facility] Last Admin: 04/22/18 09:24 Dose: 180 mg Fluticasone Propionate (Flonase) 1 actuation NS DAILY [facility] Last Admin: 04/23/18 11:28 Dose: 1 spr Furosemide (Lasix) 60 mg IVP Q12 [facility] Last Admin: 04/22/18 22:28 Dose: 60 mg Meropenem (Merrem Iv 1 Gm Premix) 50 mls @ 100 mls/hr IVPB Q8 [facility] PRN Reason: Protocol Last Admin: 04/23/18 05:47 Dose: 100 mls/hr Insulin Detemir (Levemir) 40 unit SC HS [facility] Last Admin: 04/22/18 22:29 Dose: 40 units Insulin Human Lispro (Humalog Low) 0 units SC ACHS [facility] PRN Reason: Protocol Last Admin: 04/23/18 08:10 Dose: Not Given Levothyroxine Sodium (Synthroid) 25 mcg PO 0600 [facility] Last Admin: 04/23/18 06:22 Dose: 25 mcg Metformin HCl (Glucophage) 1,000 mg PO BID [facility] Last Admin: 04/23/18 11:26 Dose: 1,000 mg Pantoprazole Sodium (Protonix Ec Tab) 40 mg PO BID [facility] Last Admin: 04/23/18 11:27 Dose: 40 mg Prednisone (Prednisone Tab) 20 mg PO DAILY [facility] Last Admin: 04/23/18 11:27 Dose: 20 mg Silver Sulfadiazine (Silvadene 1%) 1 ea TOP BID [facility] Last Admin: 04/23/18 11:27 Dose: 1 applic Sitagliptin Phosphate (Januvia) 100 mg PO DAILY [facility] Last Admin: 04/23/18 11:26 Dose: 100 mg Sodium Chloride ([place] Nasal [place]i) 1 ml NS TID [facility] Last Admin: 04/23/18 11:27 Dose: 1 spr Warfarin Sodium (Coumadin) 3 mg PO 1800 [facility] PRN Reason: Protocol Last Admin: 04/22/18 17:13 Dose: 3 mg - Labs Labs: 04/23/18 08:00 04/23/18 08:00 PT 32.0 SECONDS (9.4-12.5) H 04/23/18 08:00 INR 2.73 04/23/18 08:00 - Constitutional Appears: Well, Non-toxic, No Acute Distress - Head Exam Head Exam: ATRAUMATIC, NORMAL INSPECTION, NORMOCEPHALIC - Eye Exam Eye Exam: EOMI, Normal appearance - ENT Exam ENT Exam: Mucous Membranes Moist - Respiratory Exam Respiratory Exam: Clear to Ausculation Bilateral, NORMAL BREATHING PATTERN. absent: Accessory Muscle Use, Rhonchi, Wheezes - Cardiovascular Exam Cardiovascular Exam: REGULAR RHYTHM, +S1, +S2 - GI/Abdominal Exam GI & Abdominal Exam: Soft, Normal Bowel Sounds. absent: Firm, Guarding, Rigid, Tenderness - Psychiatric Exam Psychiatric exam: Normal Affect, Normal Mood Assessment and Plan - Assessment and Plan (Free Text) Assessment: Pt is a 72yo F, pmhx of IDDM, asthma, angina, PVD, afib who we are seeing for high blood sugars. This is likely due to her steroid treatments secondary to her admission of SOB and pmhx of COPD, and asthma. - We will be d/cing her 14 units of lispro, while continuing her other current diabetic medication regimen. - We will continue to monitor her AM sugars to ensure that there are no new blood sugar elevations.
[2018-04-23] MEDS: diltiaZEM 180 mg/24 Hours CD Cap PO SCH (12:41)
--- NOTE | 2018-04-23 13:48 | PN ---
DATE: 04/23/2018 SUBJECTIVE: She is resting comfortably in bed. She is diuresing very well. She has no complaints. She feels that the thighs are less swollen. There is some oozing, but not as bad. She is also putting out about 1400 mL of urine She is on Cardizem, DuoNebs, Flonase, Glucophage, insulin, Januvia, Lanoxin, Lasix, Levemir, Merrem, [place] spray, prednisone she is down to 20 mg, Protonix, Pulmicort, Silvadene, Synthroid, Tessalon and Tylenol. OBJECTIVE: VITAL SIGNS: Temperature 97.5, 80 pulse, 91/50 blood pressure, 19 respiratory rate, 97% O2 sat on 3 liters. HEENT: Head is atraumatic, normocephalic. Throat is moist. NECK: Supple. HEART: Regular rate. LUNGS: Decreased breath sounds, but clear. No wheezes, rhonchi or rales fourth day in a row. ABDOMEN: Soft and morbidly, morbidly, morbidly obese; nontender. Positive bowel sounds. EXTREMITIES: There is +4/4 pitting edema, now half the size. Both thighs are a little bit less swollen, but still very swollen with less oozing, but there are ulcers there. DATA: She has a 12.3 white count, 11.3 hemoglobin, 35.7 hematocrit with 190 platelets. INR is 2.73, on Coumadin. She has 138 sodium, potassium 4.3, BUN 29, creatinine 0.6. GFR is greater than 60, sugar 120, calcium is 9, total bili is 0.7, AST is 13, ALT is 25, alk phos 53, total protein 6.6. She is going to be discharged on Monday home. I discussed this with her manager social to have this arranged, to take her home, she has to learn how to give herself the insulin. She needs Nursing to teach her, she gets 14 units of subcutaneous before meals, she is also on Levemir 40 units at bedtime subcu, the Merrem IV will be changed to p.o. when she leaves on Monday, so that is the plan for her and she had multiple problems with COPD, CHF, bilateral thigh ulcers. Alan Mann DO [facility]
[2018-04-23] MEDS: Digoxin 250 mcg (0.25 mg) Tab PO SCH (15:17)
[2018-04-23] MEDS: Insulin Detemir 100 units/ml Vial (Levemir) SC SCH (22:40)
[2018-04-24] MEDS: Albuterol-Ipratrop 3 mg / 0.5 (3 ml) UD IH SCH ×4 (02:00→20:02)
[2018-04-24] MEDS: Levothyroxine 25 MCG TAB PO SCH (05:56)
[2018-04-24] MEDS: Meropenem IV 1 gm in NS 50 ML IVPB SCH ×3 (05:56→22:47)
[2018-04-24] MEDS: Budesonide 0.5 mg/2 ml Inhal Susp UD IH SCH ×2 (07:32→20:02)
[2018-04-24 07:33] LABS: MEAN CORPUSCULAR HGB CONC 31.3 g/dl (31.0-37.0); MEAN PLATELET VOLUME 11.4 fl (7.0-11.0); RBC 4.23 10^6/uL (3.5-6.1); RED CELL DISTRIBUTION WIDTH 16.6 % (11.5-14.5); WHITE BLOOD COUNT 10.4 10^3/ul (4.5-11.0)
[2018-04-24 07:40] LABS: INR 2.91; PROTHROMBIN TIME 34.2 SECONDS (9.4-12.5)
[2018-04-24 07:44] LABS: ALB/GLOB RATIO 1.1 (1.1-1.8); ALBUMIN 3.4 g/dL (3.0-4.8); ALT/SGPT 29 U/L (7-56); AST/SGOT 13 U/L (14-36); BLOOD UREA NITROGEN 28 mg/dL (7-21); CALCIUM 8.9 mg/dL (8.4-10.5); GFR NON-AFRICAN AMERICAN > 60
--- NOTE | 2018-04-24 07:56 | PN ---
DATE: 04/24/2018 PULMONARY NOTE SUBJECTIVE: The patient appears comfortable this morning. She is not short of breath at rest. PHYSICAL EXAMINATION: VITAL SIGNS: Temperature is 97.9, pulse 87, respirations 18, blood pressure 119/75. Oxygen saturation on nasal cannula is 99%. HEENT: Normocephalic, atraumatic. Positive JVD. CARDIOVASCULAR: Systolic ejection murmur at the lower left sternal border. Positive S3 gallop. LUNGS: Decreased breath sounds at the bases. Very minimal/less rhonchi. No wheezing. EXTREMITIES: Less edema. No cyanosis, no clubbing. Calves are nontender to palpation. GASTROINTESTINAL: Abdomen is soft, nontender, and nondistended. Bowel sounds are positive. SKIN: No acute rash. NEUROLOGIC: Limited at the present time. IMPRESSION: 1. Acute congestive heart failure. 2. Acute bronchitis. 3. Chronic obstructive pulmonary disease. 4. Asthma. 5. Mild anemia. PLAN: The patient appears comfortable this morning. She is not short of breath at rest. She does state to feeling much better overall. On physical exam, there is no significant bronchospasm noted. In addition, the oxygen saturation on nasal cannula is now 99%. I will continue with the current nebulizer treatments and low-dose oral steroids for now. The patient remains on intravenous Lasix. Input by Cardiology is noted. Repeat a.m. labs are pending. Clinical status of the patient is significantly improved - compared to the initial presentation. However, again, the future status/prognosis for this chronically ill patient does remain guarded. I will discuss the above with Dr. Mann. Ke Farooq MD MTDD
--- NOTE | 2018-04-24 08:02 | PN ---
DATE: 04/23/2018 ENDOCRINOLOGY FOLLOWUP NOTE LOCATION: In room 270. This is a 72-year-old female with recent uncontrolled type 2 insulin-requiring diabetes, now being followed closely for metabolic management. Her glycemic levels remain near optimal and actually the Humalog scheduled for mealtimes has actually been held since yesterday with continued improved glycemic profile as noted overnight and the glucose values have ranged from 120-126 and 164 mg/dL. Her latest chemistry showed a BUN of 29, sodium 138, potassium 4.3, chloride 96, CO2 of 33, glucose 120 and creatinine 0.6. She is currently only on oral steroid therapy as given, which could also contribute to the increased insulin resistance and further impaired glucose tolerance thereof. She has ongoing management now for recent acute exacerbation of COPD as noted. So, at this time, we will continue the basal insulin given as 40 units subcu at bedtime daily as ordered. We will also discontinue the Humalog given as scheduled for mealtimes and this was discussed with the medical physicist today. We will continue also the low-dose correction scale using Humalog insulin as given and this correction is only for glucose levels anyhow over 300 mg/dL. We will continue the oral hypoglycemic therapy given in combination with metformin given as 1 g b.i.d. and Januvia given as 100 mg once daily. We will continue the serial chemistries and supplement accordingly as needed. We will follow with you. Chela Velez MD
[2018-04-24] MEDS: Insulin Lispro (humaLOG) LOW Coverage SC SCH ×4 (08:03→21:46)
--- NOTE | 2018-04-24 09:01 | PN ---
DATE: 04/24/2018 NO DICTATION. Ke Farooq MD [facility] # [id number]
--- NOTE | 2018-04-24 09:11 | PN ---
DATE: 04/24/2018 SUBJECTIVE: I saw her resting comfortably in bed. She wants to be moved to the left side of the bed. She needs some Lotrisone cream for some fungus in the folds. She is doing better. She only put out a 1000 mL of urine in the past 24 hours, so definitely she is diuresing well. She is decreasing. MEDICATIONS: She is on Cardizem, Coumadin, DuoNebs, Flonase, Glucophage, Januvia, Lanoxin, Lasix, Levemir, Lotrisone, Merrem, [place] spray, prednisone 20, Protonix, Pulmicort, Silvadene cream, Synthroid, Tessalon Perles and Tylenol. PHYSICAL EXAMINATION: VITAL SIGNS: She has a 97.9 temp, 87 pulse, 119/75 blood pressure, 18 respiratory rate, 99% O2 sat on nasal cannula. HEENT: Head is atraumatic, normocephalic. HEART: Regular rate. LUNGS: Decreased breath sounds. Clear. No wheezes. No rhonchi. No rales. ABDOMEN: Soft, nontender. Positive bowel sounds. Morbidly, morbidly, morbidly obese. EXTREMITIES: Have +4/4 pitting edema and half the size. Both her thighs are still swollen and oozing a little bit, but much better when I came in. They are actually starting to heal a little bit. LABORATORY DATA: She has a 10.4 white count, 11 hemoglobin, 35.1 hematocrit with 200 platelets. INR is 2.91. She has a 137 sodium, potassium 3.8, BUN is 28, creatinine 0.6, GFR is greater than 60, sugar is 76, calcium is 8.9, total bili is 0.7, AST is 13, ALT is 29, alk phos 57, total protein 6.5. ASSESSMENT AND PLAN: Overall, she is doing quite well. She does have Pseudomonas aeruginosa in the thighs. She is being seen by Infectious Disease, Pulmonary, Endocrinology. So Infectious Disease put her on the antibiotics. I have to see if we could change her to tablets tomorrow. We might have to keep her another few days, although discuss that with Infectious Disease. Otherwise, I do think she is improving. I do think she is diuresing very well. She has numerous issues. She has acute congestive heart failure, acute bronchitis, chronic obstructive pulmonary disease, asthma, anemia. She has bilateral leg ulcers and now growing out Pseudomonas and she is morbidly obese and she is bed-bound. I will discuss this with Infectious Disease. Alan Mann DO
[2018-04-24] MEDS: diltiaZEM 180 mg/24 Hours CD Cap PO SCH (09:50)
[2018-04-24] MEDS: Fluticasone Nasal 50 mcg/Spray NS SCH (09:51)
[2018-04-24] MEDS: Clotrimazole/Betamethasone Cream(15 gm) TOP SCH (09:53)
[2018-04-24] MEDS: Pantoprazole 40 mg EC Tab PO SCH ×2 (09:55→17:36)
[2018-04-24] MEDS: Silver Sulfadiazine 1% Cream (400 gm) TOP SCH (09:56)
[2018-04-24] MEDS: Digoxin 250 mcg (0.25 mg) Tab PO SCH (14:32)
--- NOTE | 2018-04-24 15:26 | PN ---
DATE: 04/24/2018 ENDOCRINOLOGY FOLLOWUP NOTE LOCATION: 270. SUBJECTIVE: This is a 72-year-old female with recent uncontrolled type 2 insulin-requiring diabetes, presenting here with acute exacerbation of COPD with concomitant marked lower extremity lymphedema as noted thereof. Her glycemic levels are fluctuating but much improved at this time and in fact, overnight had low normal glycemic profile as noted. The glucose values have ranged from 76-91 and 165 mg/dL. Her latest chemistry showed a BUN of 28, sodium 137, potassium 3.8, chloride 97, CO2 of 34, glucose 77, and creatinine 0.6. So, at this time, we will lower once again her basal insulin to 24 units subcu at bedtime daily to start tonight. We will titrate incrementally as indicated to optimize metabolic control. We will obtain serial chemistries and supplement accordingly as needed. We will also continue the dual oral hypoglycemic drug therapy as given with Januvia given as 100 mg daily as ordered with metformin given as 1000 mg b.i.d. after meals as ordered. We will titrate incrementally as indicated to optimize metabolic control. We will obtain serial chemistries and supplement accordingly as needed. We will follow. Chela Velez MD
--- NOTE | 2018-04-24 17:01 | PN ---
DATE: 04/24/2018 CARDIOLOGY FOLLOWUP SUBJECTIVE: The patient is without shortness of breath. OBJECTIVE: VITAL SIGNS: Blood pressure 121/54, heart rates in the 80s. NECK: Negative JVD. LUNGS: Decreased breath sounds. HEART: Reveals S1, S2. EXTREMITIES: Marked edema. LABORATORY DATA: Hemoglobin is 11. Chemistries; BUN and creatinine unremarkable. IMPRESSION: 1. Cellulitis. 2. Severe and chronic pedal edema. 3. Diabetes mellitus. 4. Morbid obesity. 5. Congestive heart failure. PLAN: Given these findings, we will continue diuresing. The patient is currently on IV antibiotics. Ryan Turk MD
[2018-04-24] MEDS ORDERED: Insulin Detemir 100 units/ml Vial (Levemir) SC SCH (22:00)
--- NOTE | 2018-04-24 22:22 | PN ---
DATE: 04/24/2018 SUBJECTIVE: Patient is in bed, in no acute distress, nontoxic. PHYSICAL EXAMINATION: VITAL SIGNS: Temperature is 97, blood pressure is 120/50, respiratory rate of 18, heart rate of 87. HEENT: Unremarkable. NECK: Supple. LUNGS: Have decreased breath sounds. HEART: Normal S1, S2. ABDOMEN: Soft, nontender. LABORATORY EXAMINATION: Reveals a white count of 10,000, hemoglobin of 11, platelets of 200. Coagulation is noted. Chemistries reveals a BUN of 28, creatinine of 0.6. Right thigh culture is Pseudomonas aeruginosa, left thigh culture is Pseudomonas aeruginosa. The Pseudomonas sensitivity is reviewed, sensitive to Cipro, cefepime, gentamicin, meropenem, Zosyn. Dr. Alan Mann's progress note from this morning is reviewed. Dr. Ke Farooq's progress note from this morning is also reviewed. ASSESSMENT AND PLAN: A 72-year-old female seen earlier this morning in room 270, bed 2 with morbid obesity, bed-bound, the patient's is at the bedside; chronic obstructive lung disease; myocardial infarction; congestive heart failure; atrial fibrillation; chronic lymphedema; presented with acute chronic obstructive lung disease exacerbation and congestive heart failure with bilateral lower skin and skin soft tissue infection with Pseudomonas, currently on meropenem. Review of the medication list and/or orders confirms the meropenem, day #3. Continue local care. The patient did not have any fevers. Did have tachycardia. Did not have any dyspnea. Did not have any white count on admission; although, yesterday's white count was up to 12,300, probably secondary to prednisone, which was started by Dr. Alan Mann on 04/22/2018, we will continue with you. A short course of antibiotics. Santy Fernandez MD
[2018-04-25] MEDS: Albuterol-Ipratrop 3 mg / 0.5 (3 ml) UD IH SCH ×3 (02:00→13:17)
[2018-04-25] MEDS: Levothyroxine 25 MCG TAB PO SCH (05:27)
[2018-04-25] MEDS: Meropenem IV 1 gm in NS 50 ML IVPB SCH ×2 (05:28→14:43)
[2018-04-25 05:57] VITALS: TEMP 98.1; O2SAT 100
--- NOTE | 2018-04-25 07:42 | PN ---
DATE: 04/25/2018 PULMONARY NOTE SUBJECTIVE: The patient appears comfortable this morning. She is not short of breath at rest. PHYSICAL EXAMINATION: VITAL SIGNS: Temperature is 98.1, pulse 85, respirations 20, blood pressure 115/71. Oxygen saturation on nasal cannula is 100%. HEENT: Normocephalic, atraumatic. Positive JVD. CARDIOVASCULAR: Systolic ejection murmur at the lower left sternal border. Positive S3 gallop. LUNGS: Decreased breath sounds at the bases. Otherwise clear. EXTREMITIES: Less edema. No cyanosis. No clubbing. Calves are nontender to palpation. GI: Abdomen is soft, nontender and nondistended. Bowel sounds are positive. SKIN: No acute rash. NEUROLOGIC: Limited at the present time. IMPRESSION: 1. Acute congestive heart failure. 2. Acute bronchitis. 3. Chronic obstructive pulmonary disease. 4. Asthma. 5. Mild anemia. PLAN: The patient appears very comfortable this morning. She is not short of breath at rest. She does state to feeling much better overall. On physical exam, her bronchospasm has resolved. In addition, the oxygen saturation is now 100% on nasal cannula. I will continue with the current nebulizer treatments and low-dose oral steroids for now. The patient remains on intravenous Lasix. Input by Cardiology is noted. Clinical status of the patient is significantly improved overall. However, again, the future status/prognosis for this patient does remain guarded. I will discuss the above with Dr. Mann. Ke Farooq MD MTDD
[2018-04-25] MEDS: Budesonide 0.5 mg/2 ml Inhal Susp UD IH SCH (07:46)
[2018-04-25 08:14] LABS: HEMOGLOBIN 10.9 g/dL (12.0-16.0); MEAN CELL VOLUME 83.4 fl (80.0-105.0); MEAN CORPUSCULAR HEMOGLOBIN 26.2 pg (25.0-35.0); MEAN CORPUSCULAR HGB CONC 31.4 g/dl (31.0-37.0); MEAN PLATELET VOLUME 11.3 fl (7.0-11.0); RBC 4.16 10^6/uL (3.5-6.1); RED CELL DISTRIBUTION WIDTH 16.6 % (11.5-14.5)
[2018-04-25 08:21] LABS: INR 2.74; PROTHROMBIN TIME 32.2 SECONDS (9.4-12.5)
[2018-04-25 08:30] LABS: ALB/GLOB RATIO 1.1 (1.1-1.8); ALBUMIN 3.4 g/dL (3.0-4.8); ALT/SGPT 21 U/L (7-56); AST/SGOT 13 U/L (14-36); BLOOD UREA NITROGEN 27 mg/dL (7-21); CALCIUM 8.8 mg/dL (8.4-10.5); GFR NON-AFRICAN AMERICAN > 60
[2018-04-25] MEDS: Insulin Lispro (humaLOG) LOW Coverage SC SCH ×2 (08:31→11:30)
--- NOTE | 2018-04-25 09:36 | DS ---
HISTORY OF PRESENT ILLNESS: She did very well here in the hospital. She is being discharged today. She only put out less than 500 of urine last night which means she is fully I think, diuresed. She put out so much in the beginning. She is here with multiple issues; CHF, COPD, wounds on either side of the thighs which have decreased tremendously and they are oozing and they are starting to heal. She is on diltiazem, warfarin, DuoNebs, Flonase, Glucophage, Januvia, Lanoxin, Lasix, Levemir, Lotrisone cream. She will not be on anymore antibiotics. [place] spray nasal spray. She should be on prednisone 20 for 4 more days and prednisone 10 for 10 days, then stop. Protonix, Pulmicort, Silvadene cream, Synthroid, Tessalon Perles and Tylenol as needed. PHYSICAL EXAMINATION: VITAL SIGNS: She has a 98.1 temp, 85 pulse, 115/71 blood pressure, 20 respiratory rate, 100% O2 sat. HEENT: Head is atraumatic, normocephalic. Throat is moist. NECK: Supple. HEART: Regular rate. LUNGS: Decreased breath sounds bilaterally but no wheezes, no rhonchi and no rales which is great. ABDOMEN: Soft; morbidly, morbidly, morbidly obese; nontender. Positive bowel sounds. No guarding, no rebound, no CVA tenderness. EXTREMITIES: Have +4/4 pitting edema and that is half the size when she came in. She has some toe issues, but transit survey worker came in, we get the transit survey worker to come to her house. Both lateral thighs have decreased in size tremendously. It is still very, very large and with some healing ulcers and oozing is like 90% better. I discussed with Infectious Disease. She does not need anymore antibiotics. LABORATORY DATA: She has 138 sodium, potassium is 4, BUN 27, creatinine 0.6, GFR is greater than 60, sugar is 110, calcium is 8.8, total bili is 0.7. AST is 13, ALT is 21, alk phos 52, total protein is 6.5. White count is 10, hemoglobin 10.9, hematocrit 34.7, platelets of 193. ASSESSMENT AND PLAN: She will be discharged home today. She will have the Pharmacy call me and I will go over the medications with the pharmacist what they need. I will see her on a house call. Alan Mann DO
[2018-04-25] MEDS: diltiaZEM 180 mg/24 Hours CD Cap PO SCH (10:52)
[2018-04-25] MEDS: Fluticasone Nasal 50 mcg/Spray NS SCH (10:52)
[2018-04-25] MEDS: Clotrimazole/Betamethasone Cream(15 gm) TOP SCH (10:53)
[2018-04-25] MEDS: Pantoprazole 40 mg EC Tab PO SCH (10:54)
[2018-04-25] MEDS: Silver Sulfadiazine 1% Cream (400 gm) TOP SCH (10:54)
[2018-04-25 10:57] VITALS: BP 123/58; PULSE 74
[2018-04-25] MEDS ORDERED: Silver Nitrate Topical - Stick TOP ONE (12:02)
[2018-04-25 12:20] VITALS: RESP 19
[2018-04-25] MEDS: Digoxin 250 mcg (0.25 mg) Tab PO SCH (14:43)
[2018-04-25 14:44] VITALS: PULSE 74
--- NOTE | 2018-04-25 15:18 | CP.PCM.PCO ---
Physician Communication Note - Physician Communication Note Physician Communication Note: Pt examined w/jona Miller for D/C home w/ current wound care
--- NOTE | 2018-04-25 15:57 | CP.PCM.PN ---
Subjective - Date & Time of Evaluation Date of Evaluation: 04/25/18 Time of Evaluation: 10:15 - Subjective Subjective: Still with pain associated with the lower extremity sores and with bleeding, no fevers, no nausea or diarrhea. Objective - Vital Signs/Intake and Output Vital Signs (last 24 hours): Temp Pulse Resp BP Pulse Ox 98.1 F 85 20 115/71 100 04/25/18 05:56 04/25/18 05:56 04/25/18 05:56 04/25/18 05:56 04/25/18 05:56 Intake and Output: 04/25/18 04/25/18 06:59 18:59 Intake Total 1360 Output Total 950 Balance 410 - Medications Medications: Current Medications Acetaminophen (Tylenol 325mg Tab) 650 mg PO Q6H PRN PRN Reason: Headache Last Admin: 04/16/18 11:24 Dose: 650 mg Albuterol/Ipratropium (Duoneb 3 Mg/0.5 Mg (3 Ml) Ud) 3 ml [facility] [id number] [facility] Last Admin: 04/25/18 02:00 Dose: Not Given Albuterol/Ipratropium (Duoneb 3 Mg/0.5 Mg (3 Ml) Ud) 3 ml IH Q2H PRN PRN Reason: Shortness of Breath Benzonatate (Tessalon Perles) 200 mg PO BID [facility] Last Admin: 04/24/18 17:36 Dose: 200 mg Betamethasone/Clotrimazole (Lotrisone) 0 gm TOP BID [facility] Last Admin: 04/24/18 09:53 Dose: 1 oin Budesonide (Pulmicort Respules) 0.5 mg [facility] [id number] [facility] Last Admin: 04/24/18 20:02 Dose: Not Given Digoxin (Lanoxin) 0.25 mg PO 1400 [facility] Last Admin: 04/24/18 14:32 Dose: 0.25 mg Diltiazem HCl (Cardizem Cd) 180 mg PO DAILY [facility] Last Admin: 04/24/18 09:50 Dose: 180 mg Fluticasone Propionate (Flonase) 1 actuation NS DAILY [facility] Last Admin: 04/24/18 09:51 Dose: 1 spr Furosemide (Lasix) 60 mg IVP Q12 [facility] Last Admin: 04/24/18 22:30 Dose: Not Given Meropenem (Merrem Iv 1 Gm Premix) 50 mls @ 100 mls/hr IVPB Q8 [facility] PRN Reason: Protocol Last Admin: 04/25/18 05:28 Dose: 100 mls/hr Insulin Detemir (Levemir) 24 unit SC HS [facility] Last Admin: 04/24/18 22:47 Dose: Not Given Insulin Human Lispro (Humalog Low) 0 units SC ACHS RONI PRN Reason: Protocol Last Admin: 04/24/18 21:46 Dose: Not Given Levothyroxine Sodium (Synthroid) 25 mcg PO 0600 [facility] Last Admin: 04/25/18 05:27 Dose: 25 mcg Metformin HCl (Glucophage) 1,000 mg PO BID [facility] Last Admin: 04/24/18 17:36 Dose: 1,000 mg Pantoprazole Sodium (Protonix Ec Tab) 40 mg PO BID [facility] Last Admin: 04/24/18 17:36 Dose: 40 mg Prednisone (Prednisone Tab) 20 mg PO DAILY [facility] Last Admin: 04/24/18 09:55 Dose: 20 mg Silver Sulfadiazine (Silvadene 1%) 1 ea TOP BID [facility] Last Admin: 04/24/18 09:56 Dose: 1 applic Sitagliptin Phosphate (Januvia) 100 mg PO DAILY [facility] Last Admin: 04/24/18 09:52 Dose: 100 mg Sodium Chloride ([place] Nasal [place]) 1 ml NS TID [facility] Last Admin: 04/24/18 17:38 Dose: 1 spr Warfarin Sodium (Coumadin) 3 mg PO 1800 [facility] PRN Reason: Protocol Last Admin: 04/24/18 17:36 Dose: 3 mg - Labs Labs: 04/24/18 07:00 04/24/18 07:00 PT 34.2 SECONDS (9.4-12.5) H 04/24/18 07:00 INR 2.91 04/24/18 07:00 - Constitutional Appears: No Acute Distress, Chronically Ill - Head Exam Head Exam: NORMAL INSPECTION - Neck Exam Neck Exam: absent: Meningismus - Respiratory Exam Respiratory Exam: Decreased Breath Sounds - Cardiovascular Exam Cardiovascular Exam: +S1, +S2 - GI/Abdominal Exam GI & Abdominal Exam: Soft. absent: Tenderness - Extremities Exam Additional comments: both lower extremities with dressings in place Assessment and Plan - Assessment and Plan (Free Text) Plan: Assessment Pseudomonas bilateral infected wound on lower extremities history of right thigh wound infection with ESBL-producing E. coli history of urinary tract infection COPD CHF morbid obesity with BMI 70 history of right leg surgery and breast surgery chronic ulcers on the lower extremities Plan continue Merrem day 3 and continue local wound care by surgery
--- NOTE | 2018-04-25 17:31 | PN ---
DATE: 04/25/2018 ENDO FOLLOWUP NOTE LOCATION: In room 270. SUBJECTIVE: This is a 72-year-old female with recent uncontrolled type 2 insulin-requiring diabetes, now being followed closely for metabolic management. Her glycemic levels have stabilized at this time with the current insulin regimen as given. Her glucose values overnight have ranged from 134-152 today and it was 118 at bedtime last night. The chemistry showed a BUN of 27, sodium 138, potassium 4, chloride 96, CO2 of 33, glucose 110 and creatinine 0.6. So at this time, we will continue the same basal and bolus insulin drug combination with oral hypoglycemic therapy as given to allow for dose equilibration. We will keep her on the Levemir given as 24 units subcu at bedtime daily as given. We will continue also her Januvia given as 100 mg daily and metformin as 1 g b.i.d. as ordered. We will titrate incrementally as indicated to optimize metabolic control. We will obtain serial chemistries and supplement accordingly as needed. We will follow. Chela Velez MD
== END 2018-04-25 17:32 | disposition home health service (06) | DRG 190 ==
LOC: ED 16:21 → ERH 18:43 → 2RSO 23:55
PROVIDERS: ADMIT Family Medicine; ATTEND Family Medicine
PROC: 0HBRXZZ Excision of Toe Nail, External Approach (ICD-10-PCS; principal; 2018-04-11)
PROC: 0HBRXZZ Excision of Toe Nail, External Approach (ICD-10-PCS; 2018-04-11)
PROC: 0HBRXZZ Excision of Toe Nail, External Approach (ICD-10-PCS; 2018-04-11)
PROC: 0HBRXZZ Excision of Toe Nail, External Approach (ICD-10-PCS; 2018-04-11)
PROC: 0HBRXZZ Excision of Toe Nail, External Approach (ICD-10-PCS; 2018-04-11)
PROC: 0HBRXZZ Excision of Toe Nail, External Approach (ICD-10-PCS; 2018-04-11)
PROC: 0HBRXZZ Excision of Toe Nail, External Approach (ICD-10-PCS; 2018-04-11)
PROC: 0HBRXZZ Excision of Toe Nail, External Approach (ICD-10-PCS; 2018-04-11)
PROC: 0HBRXZZ Excision of Toe Nail, External Approach (ICD-10-PCS; 2018-04-11)
PROC: 0HBRXZZ Excision of Toe Nail, External Approach (ICD-10-PCS; 2018-04-11)
DX: J44.1 Chronic obstructive pulmonary disease with (acute) exacerbation (principal); I50.21 Acute systolic (congestive) heart failure; L97.129 Non-pressure chronic ulcer of left thigh with unspecified severity; L97.119 Non-pressure chronic ulcer of right thigh with unspecified severity; N39.0 Urinary tract infection, site not specified; J45.901 Unspecified asthma with (acute) exacerbation; Z68.44 Body mass index [BMI] 60.0-69.9, adult; I11.0 Hypertensive heart disease with heart failure; J20.9 Acute bronchitis, unspecified; J44.0 Chronic obstructive pulmonary disease with (acute) lower respiratory infection; E11.65 Type 2 diabetes mellitus with hyperglycemia; E11.622 Type 2 diabetes mellitus with other skin ulcer; I89.0 Lymphedema, not elsewhere classified; B35.1 Tinea unguium; E66.01 Morbid (severe) obesity due to excess calories; G47.33 Obstructive sleep apnea (adult) (pediatric); E78.5 Hyperlipidemia, unspecified; E11.51 Type 2 diabetes mellitus with diabetic peripheral angiopathy without gangrene; I48.2 Chronic atrial fibrillation; K02.9 Dental caries, unspecified; K21.9 Gastro-esophageal reflux disease without esophagitis; E11.42 Type 2 diabetes mellitus with diabetic polyneuropathy; E11.21 Type 2 diabetes mellitus with diabetic nephropathy; E03.9 Hypothyroidism, unspecified; D64.9 Anemia, unspecified; I27.20 Pulmonary hypertension, unspecified; I20.9 Angina pectoris, unspecified; I87.2 Venous insufficiency (chronic) (peripheral); K12.1 Other forms of stomatitis; R04.0 Epistaxis; I87.8 Other specified disorders of veins; B96.5 Pseudomonas (aeruginosa) (mallei) (pseudomallei) as the cause of diseases classified elsewhere; Z79.4 Long term (current) use of insulin; Z79.01 Long term (current) use of anticoagulants; Z74.01 Bed confinement status; Z87.01 Personal history of pneumonia (recurrent); Z82.49 Family history of ischemic heart disease and other diseases of the circulatory system; Z83.3 Family history of diabetes mellitus

== ENCOUNTER 2018-04-26 06:30 | Emergency (ER) | payer MEDICARE ==
[2018-04-26 06:31] VITALS: PULSE 74
[2018-04-26 06:40] VITALS: BMI 69.7
--- NOTE | 2018-04-26 07:08 | ED PDOC ---
Arrival/HPI - General Chief Complaint: Abdominal Pain Time Seen by Provider: 04/26/18 06:59 Historian: Patient - History of Present Illness Narrative History of Present Illness (Text): 04/26/18 07:07 72 year old female, whose past medical history includes angina, PVD, congestive heart failure, A-Fib, peripheral edema, chronic obstructive pulmonary disease, pneumonia, emphysema, asthma, septicemia, diabetes type 2, presents to the emergency department complaining of abdominal pain. Patient was discharged yesterday home for approximately 12 hours and developed abdominal pain. Patient is morbidly morbidly obese and too big for any kind of imaging. Patient denies any fevers, chills, chest pain, shortness of breath, nausea, vomiting, diarrhea , back pain, neck pain, urinary symptoms, headache, dizziness, or any other complaint. PMD: Dr. Mann Symptom Onset: Sudden Symptom Course: Unchanged Activities at Onset: Light Context: Home Associated Symptoms (Text): 04/26/18 07:50 Discharge yesterday and home for approximately 12 hours. She developed abdominal pain immediately after being discharged yesterday. No nausea vomiting or diarrhea. She is extremely difficult to examine, as I am unable to get next to her because of her morbid obesity. She does have a superior ventral hernia which was tender to palpation and I believe I was able to reduce. Past Medical History - Provider Review Nursing Documentation Reviewed: Yes - Infectious Disease Hx of Infectious Diseases: None - Tetanus Immunization Tetanus Immunization: Unknown - Cardiac Hx Cardiac Disorders: Yes (lymphedema) Hx Angina: Yes Hx Cardiac Arrhythmia: Yes Hx Congestive Heart Failure: Yes Hx Peripheral Edema: Yes Hx Peripheral Vascular Disease: Yes - Pulmonary Hx Respiratory Disorders: Yes (using 02 at home) Hx Asthma: Yes Hx Chronic Obstructive Pulmonary Disease (COPD): Yes Hx Emphysema: Yes Hx Pneumonia: Yes - Neurological Hx Neurological Disorder: No - HEENT Hx HEENT Disorder: Yes (glasses) - Renal Hx Renal Disorder: No - Endocrine/Metabolic Hx Endocrine Disorders: Yes Hx Diabetes Mellitus Type 2: Yes - Hematological/Oncological Hx Blood Disorders: Yes (SEPTICEMIA) - Integumentary Hx Dermatological Disorder: Yes Other/Comment: pt is obese, right outer thigh skin openings healed, redness, hard brown dry skin, dimpling to left thigh, pt c/o that she, sometimes has drainage from left thigh. both lower legs and feet dry skin. redness and discoloration to right abd fold healed, pt unable to turn in bed to assess skin on back, ble +4 pitting edema redness - Musculoskeletal/Rheumatological Hx Falls: No - Gastrointestinal Hx Gastrointestinal Disorders: Yes (benign mass removed from abd 30 yrs ago) - Genitourinary/Gynecological Hx Genitourinary Disorders: Yes Hx Incontinence: Yes (urine and stool) Hx Urinary Tract Infection: Yes - Psychiatric Hx Psychophysiologic Disorder: No Hx Substance Use: No - Surgical History Hx Cardiac Catheterization: Yes Other/Comment: cardiac cath 2006, picc line, sx to right leg for an infection - Anesthesia Hx Anesthesia: Yes - Suicidal Assessment Feels Threatened In Home Enviroment: No Family/Social History - Physician Review Nursing Documentation Reviewed: Yes Family/Social History: No Known Family HX Smoking Status: Never Smoked Hx Alcohol Use: No Hx Substance Use: No Hx Substance Use Treatment: No Allergies/Home Meds Allergies/Adverse Reactions: Allergies No Known Allergies Allergy (Verified 04/26/18 06:48) Home Medications: Home Meds Medication Instructions Recorded Confirmed Potassium Gluconate [Potassium] 20 mg PO BID 04/10/18 04/26/18 SITagliptin [Januvia] 100 mg PO DAILY 04/10/18 04/26/18 Warfarin [Coumadin] 3 mg PO DAILY 04/10/18 04/26/18 predniSONE [predniSONE Tab] 20 mg PO DAILY 04/10/18 04/26/18 Albuterol/Ipratropium [Duoneb 3 3 ml IH Q6 04/25/18 04/26/18 MG/3 Ml-0.5 MG/3 Ml 3 Ml] Benzonatate [Tessalon Perles] 200 mg PO BID PRN 04/25/18 04/26/18 Clotrimazole/Betamethasone 180 gm TOP BID 04/25/18 04/26/18 [Lotrisone] Fluticasone Nasal [Flonase] 1 actuation NS DAILY 04/25/18 04/26/18 Furosemide [Lasix] 60 mg PO BID 04/25/18 04/26/18 Insulin Detemir [Levemir] 24 unit SC HS 04/25/18 04/26/18 Levothyroxine [Synthroid] 25 mcg PO DAILY 04/25/18 04/26/18 MetFORMIN [glucoPHAGE] 1,000 mg PO BID 04/25/18 04/26/18 Silver Sulfadiazine [Silvadene] 1,600 gm TOP BID 04/25/18 04/26/18 diltiaZEM CD [Cardizem CD] 180 mg PO DAILY 04/25/18 04/26/18 Review of Systems - Physician Review All systems were reviewed & negative as marked: Yes - Review of Systems Constitutional: absent: Fevers Respiratory: absent: SOB Cardiovascular: absent: Chest Pain Gastrointestinal: Abdominal Pain. absent: Diarrhea, Nausea, Vomiting Genitourinary Female: absent: Dysuria, Frequency, Hematuria Musculoskeletal: absent: Back Pain, Neck Pain Neurological: absent: Headache, Dizziness Physical Exam Vital Signs Reviewed: Yes Vital Signs Temp Pulse Resp BP Pulse Ox 04/26/18 10:56 90 18 113/72 100 04/26/18 08:52 89 17 107/64 100 04/26/18 07:21 97.8 F 105 H 20 112/69 98 Temperature: Afebrile Blood Pressure: Normal Pulse: Tachycardic Respiratory Rate: Normal Appearance: Positive for: Well-Appearing, Non-Toxic, Comfortable, Other ( Morbidly Morbidly obese. Difficult to to get next to to exam) Pain Distress: None Mental Status: Positive for: Alert and Oriented X 3 - Systems Exam Head: Present: Atraumatic, Normocephalic Pupils: Present: PERRL Extroacular Muscles: Present: EOMI Conjunctiva: Present: Normal Mouth: Present: Moist Mucous Membranes Neck: Present: Normal Range of Motion Respiratory/Chest: Present: Clear to Auscultation, Good Air Exchange. No: Respiratory Distress, Accessory Muscle Use Cardiovascular: Present: Normal S1, S2, Irregular Rhythm (normal rate). No: Murmurs Abdomen: Present: Normal Bowel Sounds, Hernias (ventral hernia able to reduce? ) . No: Tenderness, Distention, Peritoneal Signs Back: Present: Normal Inspection Upper Extremity: Present: Normal Inspection. No: Cyanosis, Edema Lower Extremity: Present: Other (ulcers to the right and left panese). No: Edema Neurological: Present: GCS=15, CN II-XII Intact, Speech Normal Skin: Present: Warm, Dry, Normal Color. No: Rashes Psychiatric: Present: Alert, Oriented x 3, Normal Insight, Normal Concentration Medical Decision Making ED Course and Treatment: 04/26/18 07:08 Impression: 72 year old female presents complaining of abdominal pain that developed after she was discharged yesterday home for approximately 12 hours. Plan: -- Labs -- Urinalysis -- Chest X-ray -- Reassess and disposition Prior Visits: Notes and results from previous visits were reviewed. Progress Notes: 04/26/18 07:52 EKG shows atrial fibrillation rate approximately [address] and T- wave changes 04/26/18 08:[address] Mann who is aware and agrees with the plan. Accepts patient into his service. 04/26/18 08:44 Patient's abdominal pain does feel better. I do believe the issue was a ventral hernia which has been reduced. I can no longer palpate it. Dr. Mann will be here to evaluate the patient and make final disposition. 04/26/18 08:51 Dr. Mann is here and requested a portable flat plate of the abdomen and Protonix IV and a regular diet for the patient. He spoke with Dr. Castillo who will evaluate the patient in the emergency department. 04/26/18 08:57 Dr. Castillo is here and has evaluated the patient and agrees with Dr. Mann's plan to feed the patient and see how she does. PROCEDURE: Abdomen X-ray Dictator : Clif Kumar MD Report Date : 04/26/2018 10:41:26 IMPRESSION: No active disease. PROCEDURE: Chest X-ray Dictator : Silvio Monroe MD Report Date : 04/26/2018 09:16:25 IMPRESSION: Mildly increased pulmonary vascular congestion with cardiomegaly stable. No definite alveolitis bilaterally. 04/26/18 12:13 Dr. Mann was here again to see the patient. She tolerated her diet. He will discharge home. - Lab Interpretations Lab Results: 04/26/18 07:40 04/26/18 07:40 Lab Results 04/26/18 07:40: Sodium 136, Potassium 4.3, Chloride 95 L, Carbon Dioxide 34 H, Anion Gap 12, BUN 27 H, Creatinine 0.5 L, Est GFR ( Amer) > 60, Est GFR ( Non-Af Amer) > 60, Random Glucose 161 H, Calcium 9.0, Magnesium 2.0, Total Bilirubin 1.0, AST 21, ALT 24, Alkaline Phosphatase 66, Total Protein 6.6, Albumin 3.7, Globulin 2.9, Albumin/Globulin Ratio 1.3, Lipase 48 04/26/18 07:40: PT 31.2 H, INR 2.66, APTT 36.4 04/26/18 07:40: WBC 11.5 H, RBC 4.30, Hgb 11.7 L, Hct 35.8 L, MCV 83.3, MCH 27.2 , MCHC 32.7, RDW 16.4 H, Plt Count 206, MPV 11.3 H, Gran % 90.6 H, Lymph % (Auto ) 8.0 L, [place] % (Auto) 0.5 L, Eos % (Auto) 0.9 L, Baso % (Auto) 0.0, Gran # 10.41 H, Lymph # (Auto) 0.9 L, [place] # (Auto) 0.1, Eos # (Auto) 0.1, Baso # (Auto ) 0.00, Neutrophils % (Manual) 83 H, Lymphocytes % (Manual) 10 L, Monocytes % ( Manual) 6, Eosinophils % (Manual) 1 I have reviewed the lab results: Yes - RAD Interpretation Radiology Orders: 04/26/18 07:06 CHEST PORTABLE [RAD] Stat 04/26/18 08:49 ABDOMEN PORTABLE 1 VIEW [RAD] Stat - Medication Orders Current Medication Orders: Discontinued Medications Pantoprazole Sodium (Protonix Inj) 40 mg IVP ONCE STA Stop: 04/26/18 08:51 Last Admin: 04/26/18 09:00 Dose: 40 mg IVP Administration Document 04/26/18 09:[address] [facility] [place] (Rec: 04/26/18 09:[address] [facility] [id number]) Charges for Administration # of IVP Administrations 1 - Scribe Statement The provider has reviewed the documentation as recorded by the Ashly Pineda Provider Scribe Attestation: All medical record entries made by the Marieibjuan were at my direction and personally dictated by me. I have reviewed the chart and agree that the record accurately reflects my personal performance of the history, physical exam, medical decision making, and the department course for this patient. I have also personally directed, reviewed, and agree with the discharge instructions and disposition. Disposition/Present on Arrival - Present on Arrival Any Indicators Present on Arrival: No History of DVT/PE: No History of Uncontrolled Diabetes: No Urinary Catheter: No History of Decub. Ulcer: No History Surgical Site Infection Following: None - Disposition Have Diagnosis and Disposition been Completed?: Yes Diagnosis: Abdominal pain, Ventral hernia Disposition: HOME/ ROUTINE Disposition Time: 12:14 Patient Plan: Discharge Condition: FAIR Discharge Instructions (ExitCare): Acute Abdomen (Belly Pain), Abdominal Hernia (DC) Referrals: Alan Mann DO [Primary Care Provider] - Follow up with primary Forms: [employer] (French)
[2018-04-26 08:03] LABS: EOS # 0.1 (0.0-0.7); EOS % 0.9 % (1.5-5.0); GRAN # 10.41 (1.4-6.5); GRAN % 90.6 % (50.0-68.0); HEMOGLOBIN 11.7 g/dL (12.0-16.0); LYMPH # 0.9 (1.2-3.4); MEAN CELL VOLUME 83.3 fl (80.0-105.0); MEAN CORPUSCULAR HEMOGLOBIN 27.2 pg (25.0-35.0); MEAN CORPUSCULAR HGB CONC 32.7 g/dl (31.0-37.0); MEAN PLATELET VOLUME 11.3 fl (7.0-11.0); MONO # 0.1 (0.1-0.6); MONO % 0.5 % (1.0-6.0); PLATELET COUNT 206 10^3/uL (120.0-450.0); RED CELL DISTRIBUTION WIDTH 16.4 % (11.5-14.5); WHITE BLOOD COUNT 11.5 10^3/ul (4.5-11.0)
[2018-04-26 08:11] LABS: INR 2.66; PARTIAL THROMBOPLASTIN TIME 36.4 Seconds (25.1-36.5); PROTHROMBIN TIME 31.2 SECONDS (9.4-12.5)
[2018-04-26 08:22] LABS: ALB/GLOB RATIO 1.3 (1.1-1.8); ALBUMIN 3.7 g/dL (3.0-4.8); ALT/SGPT 24 U/L (7-56); AST/SGOT 21 U/L (14-36); BLOOD UREA NITROGEN 27 mg/dL (7-21); GFR NON-AFRICAN AMERICAN > 60; LIPASE 48 U/L (23-300)
--- NOTE | 2018-04-26 09:18 | RAD ---
Date of service: 04/26/2018 HISTORY: ap COMPARISON: [facility]ah chest radiograph 04/02/2018. FINDINGS: LUNGS: No active pulmonary disease. PLEURA: No significant pleural effusion identified, no pneumothorax apparent. CARDIOVASCULAR: Cardiomegaly appears stable. Pulmonary vascular congestion appears slightly increased. OSSEOUS STRUCTURES: No significant abnormalities. VISUALIZED UPPER ABDOMEN: Normal. OTHER FINDINGS: None. IMPRESSION: Mildly increased pulmonary vascular congestion with cardiomegaly stable. No definite alveolitis bilaterally.
[2018-04-26 09:25] LABS: EOSINOPHIL 1 % (0.0-3.0); LYMPHOCYTE 10 % (22.0-35.0); MONOCYTE 6 % (1.0-6.0); NEUTROPHIL 83 % (50.0-70.0)
--- NOTE | 2018-04-26 09:44 | CARD ---
APPROVED REPORT Date of service: 04/26/2018 EKG Measurement Heart [id number] <Conclusion> Atrial fibrillation ST & T wave abnormality, consider inferolateral ischemia or digitalis effect Abnormal ECG
--- NOTE | 2018-04-26 10:42 | RAD ---
Date of service: 04/26/2018 HISTORY: Dr Mann order COMPARISON: No prior. FINDINGS: BOWEL: Normal. No obstruction. No free air. BONES: Normal. OTHER FINDINGS: None. IMPRESSION: No active disease.
[2018-04-26 12:37] VITALS: BP 131/70; PULSE 89; RESP 16; TEMP 97.6; O2SAT 99
--- NOTE | 2018-04-26 23:14 | CON ---
DATE: 04/26/2018 HISTORY OF PRESENT ILLNESS: I was asked to see Maria Isabel by Dr. Mann. Patient was recently admitted in the hospital because of infection, inflammation and drainage from the pannus on either side of the abdomen. The woman is known to be in excess of 700 pounds, has a massive and I say that likely pannus on the either side involving lymphedema, ulceration, some bleeding and certainly drainage, now being treated with Silvadene. At the moment, the patient was admitted for abdominal pain, some nausea without vomiting, diarrhea was not seen, constipation, no bowel movements for five days, although she is passing flatus. PHYSICAL EXAMINATION: ABDOMEN: Her abdomen is impossible to examine because of her weight, but the ER doctor said there was a palpable hernia that was reduced with significant symptomatic relief. At this moment, I cannot feel this hernia, but it was described as epigastric. No liver, kidney, spleen mass. No guarding or rebound. ASSESSMENT AND PLAN: I believe the patient should be treated for gastric issues probably with Protonix and observe for short period of time before sending her home. I do not believe an operation on this hernia is either worthwhile safe or even possible. Sort of is life threatening issue which is not at this time. I would observe her shortly. If she is able to eat, I will send her back home. Discussed with Dr. Mann. Dennis Castillo MD
== END 2018-04-26 12:38 | disposition home or self-care (01) ==
LOC: ED 06:30
DX: K43.9 Ventral hernia without obstruction or gangrene (principal); R10.9 Unspecified abdominal pain; E11.9 Type 2 diabetes mellitus without complications; I20.9 Angina pectoris, unspecified; I48.91 Unspecified atrial fibrillation; J44.9 Chronic obstructive pulmonary disease, unspecified; E66.01 Morbid (severe) obesity due to excess calories
CPT/HCPCS: 71045; 74018; 80053; 83690; 83735; 85025; 85610; 85730; 93005; 96374; 99284; C9113

== ENCOUNTER 2018-06-01 14:09 | Inpatient (IN) | payer MEDICARE ==
--- NOTE | 2018-06-01 14:26 | ED PDOC ---
Arrival/HPI - General Historian: Patient - History of Present Illness Narrative History of Present Illness (Text): 06/01/18 14:27 Patient is a 73 year old female, whose past medical history includes angina, PVD, congestive heart failure, A-Fib, peripheral edema, chronic obstructive pulmonary disease, emphysema, asthma, septicemia, diabetes type 2 and morbid obesity presents to the emergency department complaining of fever, chills and sore throat. Patient started experiencing fever and chills on Monday this week, with a Tmax of 101.7 on 3 days ago. She contacted her PMD, Dr. Mann, who started her on Levaquin. Patient's only gave her 1 dose Levaquin due to low blood pressure and instructions to not give medication if SBP <100. 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 is her care given and performs daily dressing changes with Silvadene. Patient reports intermittent nausea with decreased appetite for 3 days. She reports mild SOB. Denies vomiting, diarrhea, constipation, chest pain, abdominal pain, vision changes, runny nose, cough, numbness or tingling. PMD: Dr. Alan Mann Time/Duration: < week (3 days ) Symptom Onset: Gradual Symptom Course: Unchanged Quality: Other (soreness) <Rolando Bernard - Last Filed: 06/01/18 19:55> <Mook Grace - Last Filed: 06/04/18 08:44> - General Time Seen by Provider: 06/01/18 14:10 Past Medical History - Provider Review Nursing Documentation Reviewed: Yes - Infectious Disease Hx of Infectious Diseases: None - Tetanus Immunization Tetanus Immunization: Unknown - Cardiac Hx Cardiac Disorders: Yes (lymphedema) Hx Angina: Yes Hx Cardiac Arrhythmia: Yes Hx Congestive Heart Failure: Yes Hx Peripheral Edema: Yes Hx Peripheral Vascular Disease: Yes - Pulmonary Hx Respiratory Disorders: Yes (using 02 at home) Hx Asthma: Yes Hx Chronic Obstructive Pulmonary Disease (COPD): Yes Hx Emphysema: Yes Hx Pneumonia: Yes - Neurological Hx Neurological Disorder: No - HEENT Hx HEENT Disorder: Yes (glasses) - Renal Hx Renal Disorder: No - Endocrine/Metabolic Hx Endocrine Disorders: Yes Hx Diabetes Mellitus Type 2: Yes - Hematological/Oncological Hx Blood Disorders: Yes (SEPTICEMIA) - Integumentary Hx Dermatological Disorder: Yes Other/Comment: pt is obese, right outer thigh skin openings healed, redness, hard brown dry skin, dimpling to left thigh, pt c/o that she, sometimes has dr blanchard from left thigh. both lower legs and feet dry skin. redness and discoloration to right abd fold healed, pt unable to turn in bed to assess skin on back, ble +4 pitting edema redness - Musculoskeletal/Rheumatological Hx Falls: No - Gastrointestinal Hx Gastrointestinal Disorders: Yes (benign mass removed from abd 30 yrs ago) - Genitourinary/Gynecological Hx Genitourinary Disorders: Yes Hx Incontinence: Yes (urine and stool) Hx Urinary Tract Infection: Yes - Psychiatric Hx Psychophysiologic Disorder: No Hx Substance Use: No - Surgical History Hx Cardiac Catheterization: Yes Other/Comment: cardiac cath 2006, picc line, sx to right leg for an infection - Anesthesia Hx Anesthesia: Yes - Suicidal Assessment Feels Threatened In Home Enviroment: No <Rolando Bernard - Last Filed: 06/01/18 19:55> Family/Social History - Physician Review Nursing Documentation Reviewed: Yes Family/Social History: Unknown Family HX Smoking Status: Never Smoked Hx Alcohol Use: No Hx Substance Use: No Hx Substance Use Treatment: No <Roladno Bernard - Last Filed: 06/01/18 19:55> Allergies/Home Meds <Rolando Bernard - Last Filed: 06/01/18 19:55> <Mook Grace - Last Filed: 06/04/18 08:44> Allergies/Adverse Reactions: Allergies No Known Allergies Allergy (Verified 04/26/18 06:48) Home Medications: Home Meds Medication Instructions Recorded Confirmed SITagliptin [Januvia] 100 mg PO DAILY 04/10/18 06/01/18 Warfarin [Coumadin] 3 mg PO DAILY 04/10/18 06/01/18 Albuterol/Ipratropium [Duoneb 3 3 ml IH Q6 04/25/18 06/01/18 MG/3 Ml-0.5 MG/3 Ml 3 Ml] Clotrimazole/Betamethasone 180 gm TOP BID 04/25/18 06/01/18 [Lotrisone] Fluticasone Nasal [Flonase] 1 spray MARIAM DAILY 04/25/18 06/01/18 Furosemide [Lasix] 60 mg PO BID 04/25/18 06/01/18 Insulin Detemir [Levemir] 24 unit SC HS 04/25/18 06/01/18 Levothyroxine [Synthroid] 25 mcg PO DAILY 04/25/18 06/01/18 MetFORMIN [glucoPHAGE] 1,000 mg PO BID 04/25/18 06/01/18 Silver Sulfadiazine [Silvadene] 1,600 gm TOP BID 04/25/18 06/01/18 diltiaZEM CD [Cardizem CD] 180 mg PO DAILY 04/25/18 06/01/18 Budesonide [Pulmicort Flexhaler] 1 puff IH QID 06/01/18 06/01/18 K Dur 20 meq PO BID 06/01/18 06/01/18 Mupirocin 2% Cream [Bactroban 30 gm EXT BID 06/01/18 06/01/18 Cream] Pantoprazole Sodium [Protonix] 40 mg PO DAILY 06/01/18 06/01/18 levoFLOXacin [Levaquin] 750 mg PO DAILY 06/01/18 06/01/18 Review of Systems - Physician Review All systems were reviewed & negative as marked: Yes - Review of Systems Constitutional: Fatigue, Fevers (101.7F on monday), Other (Chills) Eyes: Normal ENT: Sore Throat. absent: Rhinorrhea, Epistaxis Respiratory: SOB. absent: Cough, Sputum, Wheezing Cardiovascular: Chest Pain Gastrointestinal: Nausea, Appetite Changes (decreased). absent: Abdominal Pain, Constipation, Diarrhea, Vomiting Genitourinary Female: Normal. absent: Dysuria, Frequency, Hematuria Musculoskeletal: Normal Skin: Normal, Other (chronic wounds on thighs b/l) Neurological: Normal. absent: Headache, Dizziness, Focal Weakness Endocrine: Normal. absent: Diaphoresis Hemo/Lymphatic: Normal. absent: Adenopathy Psychiatric: Normal. absent: Anxiety <Rolando Bernard - Last Filed: 06/01/18 19:55> Physical Exam Vital Signs Reviewed: Yes Temperature: Afebrile Blood Pressure: Hypotensive Pulse: Regular Respiratory Rate: Tachypneic Appearance: Positive for: Comfortable, Ill-Appearing, Other (Morbidly obese) Pain Distress: None Mental Status: Positive for: Alert and Oriented X 3 - Systems Exam Head: Present: Atraumatic, Normocephalic Pupils: Present: PERRL Extroacular Muscles: Present: EOMI Conjunctiva: Present: Normal Mouth: Present: Dry Pharnyx: Present: Normal. No: ERYTHEMA, EXUDATE, TONSILS ENLARGED Nose (External): Present: Atraumatic Nose (Internal): Present: No Active Bleeding Neck: Present: Normal Range of Motion. No: Meningeal Signs, MIDLINE TENDERNESS, Lymphadenopathy Respiratory/Chest: Present: Clear to Auscultation, Good Air Exchange. No: Respiratory Distress, Accessory Muscle Use, Wheezes, Rales, Rhonchi Cardiovascular: Present: Irregular Rhythm (known hx of afib), Tachycardic. No: Murmurs Abdomen: No: Tenderness, Distention, Peritoneal Signs, Rebound, Guarding Upper Extremity: Present: Normal Inspection, NORMAL PULSES. No: Cyanosis, Edema Lower Extremity: Present: Edema (pitting edema (chronic)), Other (Extremely large thighs with multiple chronic wounds on posterior and lateral aspects b/l at multiple stages of healing. No acute signs of infections seen.). No: NORMAL PULSES, Tenderness Neurological: Present: GCS=15, CN II-XII Intact, Speech Normal Skin: Present: Warm, Dry, Normal Color. No: Rashes Psychiatric: Present: Alert, Oriented x 3, Normal Insight, Normal Concentration <Rolando Bernard - Last Filed: 06/01/18 19:55> Vital Signs Temp Pulse Resp 06/01/18 14:10 98.3 F 105 H 20 <Mook Grace - Last Filed: 06/04/18 08:44> Medical Decision Making ED Course and Treatment: 06/01/18 15:04 Patient is a 73 year old female, whose past medical history includes angina, PVD, congestive heart failure, A-Fib, peripheral edema, chronic obstructive pulmonary disease, emphysema, asthma, septicemia, diabetes type 2 and morbid obesity presents to the emergency department complaining of fever, chills and sore throat. Patient afebrile but hypotensive upon arrival. Sepsis work-up Labs, CXR and EKG 500mL bolus of NS - due to hx of CHF - reviewed prior ECHO 03/31/2018 shows normal LVEF, with severe MR, TR, Pulm HTN and Pulm regurg. 10/19/18 15:38 Leukocytosis of 28.6 Code Sepsis Called at 15:29 Started of Vanco and Zosyn IV 1L of NS ordered - Will not give 30mL/kg of IVF at this time due to calculated dose being greater than 8L. Will give liter and re-evaluate 06/01/18 16:25 After 1.5 L BP increased to 94/46. Patient currently saturating well and appears in no acute distress. Lung moreau clear and patient saturating well in no acute distress. Will give another 1L of NS 06/01/18 17:16 Patient is still resting comfortably in bed in no acute distress. BP is 88/39 after 2.5 L Call placed to ICU, awaiting call back. 06/01/18 17:27 BP has not responded to fluids. Discussed with patient the possible need of a central line to give medications. Patient is refusing central line until Dr. Grace and medical team speak to Dr. Mann. Will give another 1L of NS bolus Call placed and case discussed with Dr. Mann. Dr. Mann has accepted patient on to his service. ICU came to ED and case discussed in detail with Dr. Garg. Dr. Garg has accepted patient to ICU. 06/01/18 19:56 Central Line placed in R IJ using sterile technique with ultrasound guided imaging. No immediate complications. Upon CXR, central line turned cephalad instead of continuing caudal. Patient denied any new symptoms including headache, numbness, tingling, weakness, facial droop, speech changes or vision changes. Central Line in R IJ removed and pressure dressing placed. Central Line placed in L IJ using sterile technique with ultrasound guided im aging. No immediate complications. CXR reviewed, central terminates at the tip of the right atrium. L IJ central good to use. Re-evaluation Time: 16:25 Reassessment Condition: Re-examined, Improving,but remains with symptoms - Lab Interpretations I have reviewed the lab results: Yes Interpretation: Abnormal lab values - RAD Interpretation Narrative RAD Interpretations (Text): 06/01/18 16:31 CXR - Limited study. Abnormal left cardiac silhouette; cardiomegaly. Recommend correlation with echocardiogram. Bilateral hilar prominence. Emphysematous changes. Mild pulmonary venous congestion. [employer]ix Concrete Batcher: Radiologist - EKG Interpretation EKG Interpretation (Text): 06/01/18 15:15 EKG - afib @101bpm, normal axis, Q-waves in inferior leads III and aVF, no acute ST elevations or depression - similar to prior EKG on 04/26/18 Interpreted by ED Physician: Yes Type: 12 lead EKG Comparison: Similar to previous EKG <Rolando Bernard - Last Filed: 06/01/18 19:55> ED Course and Treatment: 06/01/18 15:29 73 yo female presents with fever, chills and sore throat. Arrived hypotensive and IV started immediately with IVF hydration. Sepsis work up. Code Sepsis called immediately when labs reviewed. Treated with Vanco and Zosyn empirically. CXR with no definitive infiltrate. UA pending. Skin wounds on her thighs do not appears cellulitic. 06/01/18 16:04 Reevaluation - patient is comfortable and in no acute distress. Lungs clear. No w/r/r. BP improved to 95/59 after 1 L NS. Will continue to hydrate. The case was discussed with Dr. Garg, Potato Peeler, who will admit the patient to the ICU. Levophed IV ordered. 06/01/18 16:23 Reevaluation - BP 94/46 after 1.5L NS. Another 1 L bolus ordered. Lungs clear. No w/r/r. No respiratory distress. Will continue to hydrated and reevaluate due to CHF. 06/01/18 17:30: Case discussed in detail with Dr. Mann who will admit the patient under his service to the ICU. 06/01/18 18:47 Central Line placed to the Right IJ by Resident Rolando Bernard with my supervision. Ultrasound was used. Steriletechnique was used. No complications. Please refer to procedure note. 06/01/18 19:56 Central line removed due to placement cephalad. Patient with new symptoms of headache, numbness or weakness, or any symptoms as stated agove. Central placed on L IJ with sterile techinque with no complications. CXR reviewed and in good placement. This central line placement was supervised by Dr. Gama. - Critical Care Critical Care Minutes: 60 minutes - Lab Interpretations Lab Results: 06/01/18 15:10 Lab Results 06/01/18 15:12: pO2 71 H, VBG pH 7.42, VBG pCO2 45.0, VBG HCO3 29.2 H, VBG Total CO2 30.6 H, VBG O2 Sat (Calc) 96.6 H, VBG Base Excess 4.0 H, VBG Potassium 4.2, Sodium 136.0, Chloride 103.0, Glucose 181 H, Lactate 2.7 H, FiO2 21.0, Venous Blood Potassium 4.2 06/01/18 15:10: WBC 28.6 H* D, RBC 4.10, Hgb 11.1 L, Hct 34.1 L, MCV 83.2, MCH 27.1, MCHC 32.6, RDW 16.9 H, Plt Count 241, MPV 11.1 H, Gran % 90.5 H, Lymph % (Auto) 4.4 L, [place] % (Auto) 4.8, Eos % (Auto) 0.2 L, Baso % (Auto) 0.1, Gran # 25.88 H, Lymph # (Auto) 1.3, [place] # (Auto) 1.4 H, Eos # (Auto) 0.1, Baso # (Auto) 0.03, Neutrophils % (Manual) Pending, Lymphocytes % (Manual) Pending, Monocytes % (Manual) Pending - RAD Interpretation Radiology Orders: 06/01/18 14:41 CHEST PORTABLE [RAD] Stat - Medication Orders Current Medication Orders: Discontinued Medications Sodium Chloride (Sodium Chloride 0.9%) 500 mls @ 999 mls/hr IV .Q31M STA Stop: 06/01/18 15:14 Last Admin: 06/01/18 14:56 Dose: 999 mls/hr eMAR Start Stop Document 06/01/18 14:56 OCS (Rec: 06/01/18 14:57 OCS [id number]) Intravenous Solution Start Date 06/01/18 Start Time 14:56 End Date 06/01/18 End time 15:26 Total Infusion Time 30 <Mook Grace - Last Filed: 06/04/18 08:44> Disposition/Present on Arrival - Present on Arrival Any Indicators Present on Arrival: No History of DVT/PE: No History of Uncontrolled Diabetes: No Urinary Catheter: No History Surgical Site Infection Following: None - Disposition Have Diagnosis and Disposition been Completed?: Yes Disposition Time: 17:30 Patient Plan: Admission, ICU <Rolando Bernard - Last Filed: 06/01/18 19:55> <Mook Grace - Last Filed: 06/04/18 08:44> - Disposition Diagnosis: Sepsis, Hypotension Disposition: HOSPITALIZED Patient Problems: Current Active Problems Problem Status Onset Sepsis Acute Hypotension Acute Condition: CRITICAL
[2018-06-01 14:29] VITALS: BMI 81.9
[2018-06-01] MEDS ORDERED: Sodium Chloride 0.9% 500 ML IV STA (14:44)
[2018-06-01 15:20] LABS: BASO # 0.03 K/mm3 (0.0-2.0); BASO % 0.1 % (0.0-3.0); EOS # 0.1 (0.0-0.7); EOS % 0.2 % (1.5-5.0); GRAN # 25.88 (1.4-6.5); GRAN % 90.5 % (50.0-68.0); HEMOGLOBIN 11.1 g/dL (12.0-16.0); LYMPH # 1.3 (1.2-3.4); LYMPH % 4.4 % (22.0-35.0); MEAN CELL VOLUME 83.2 fl (80.0-105.0); MEAN CORPUSCULAR HEMOGLOBIN 27.1 pg (25.0-35.0); MEAN CORPUSCULAR HGB CONC 32.6 g/dl (31.0-37.0); MEAN PLATELET VOLUME 11.1 fl (7.0-11.0); MONO # 1.4 (0.1-0.6); MONO % 4.8 % (1.0-6.0); PLATELET COUNT 241 10^3/uL (120.0-450.0); RED CELL DISTRIBUTION WIDTH 16.9 % (11.5-14.5)
[2018-06-01 15:20] LABS: VENOUS BLOOD GAS PO2 71 mm/Hg (30-55); VENOUS BLOOD PH 7.42 (7.32-7.43)
[2018-06-01 15:26] LABS: WHITE BLOOD COUNT 28.6 10^3/ul (4.5-11.0)
--- NOTE | 2018-06-01 15:26 | RAD ---
HISTORY: Sepsis Patient COMPARISON: Chest x-ray performed 04/26/18 TECHNIQUE: Chest, one view. FINDINGS: Examination limited by habitus. Soft tissue attenuation markedly limits evaluation of the left lung base and to lesser extent the right lung base. LUNGS: Emphysematous changes. Mild pulmonary venous congestion. Please note that chest x-ray has limited sensitivity for the detection of pulmonary masses. PLEURA: No significant pleural effusion identified. No definite pneumothorax . CARDIOVASCULAR: Abnormal left cardiac silhouette; cardiomegaly. Atherosclerotic calcifications of the aortic knob. OSSEOUS STRUCTURES: Degenerative changes. VISUALIZED UPPER ABDOMEN: Unremarkable. OTHER FINDINGS: None. IMPRESSION: Limited study. Abnormal left cardiac silhouette; cardiomegaly. Recommend correlation with echocardiogram. Bilateral hilar prominence. Emphysematous changes. Mild pulmonary venous congestion.
[2018-06-01] MEDS ORDERED: Vancomycin 1gm in NS 250ml 1 GM/250 ML BAG IVPB STA (15:29)
[2018-06-01] MEDS ORDERED: Piperacill/Tazo 4.5gm in NS 4.5 GM/100 ML BAG IVPB STA (15:29)
[2018-06-01 15:31] LABS: INR 2.08; PARTIAL THROMBOPLASTIN TIME 36.2 Seconds (25.1-36.5); PROTHROMBIN TIME 24.1 SECONDS (9.4-12.5)
[2018-06-01] MEDS ORDERED: Vancomycin 2 GM in Sodium Chloride 0.9% 500 ML IVPB ONE (15:45)
[2018-06-01] MEDS ORDERED: Sodium Chloride 0.9% 1,000 ML IV STA ×4 (15:53→18:50)
[2018-06-01 16:12] LABS: BAND 1 % (0-2); LYMPHOCYTE 5 % (22.0-35.0); MONOCYTE 3 % (1.0-6.0); NEUTROPHIL 91 % (50.0-70.0)
[2018-06-01 16:13] LABS: HYPOCHROMIA 2+; PLATELET ESTIMATE NORMAL (NORMAL); ROULEAU 2+; TOXIC GRANULATION 2+
[2018-06-01 16:49] LABS: BLOOD UREA NITROGEN 24 mg/dL (7-21); CALCIUM 7.9 mg/dL (8.4-10.5); GFR NON-AFRICAN AMERICAN > 60
[2018-06-01 17:00] LABS: ALB/GLOB RATIO 0.8 (1.1-1.8); ALBUMIN 2.4 g/dL (3.0-4.8); ALT/SGPT 16 U/L (7-56); AST/SGOT 20 U/L (14-36); B-TYPE NATRIURETIC PEPTIDE 4420 pg/mL (0-450)
[2018-06-01 17:37] LABS: TROPONIN I < 0.01 ng/mL
--- NOTE | 2018-06-01 17:48 | CP.PCM.CON ---
Addendum entered and electronically signed by Chacorta Garg MD 06/01/18 19:29: Home pred rx noted will stop pred, give stress dose HC 100 nowthen 50 q 6h Original Note: <Jethro Qiu - Last Filed: 06/01/18 18:57> History of Present Illness - History of Present Illness History of Present Illness: Jethro Qiu DO, PGY-1 ICU Consult Note for Dr. Roma Garg Ms. Bowden is a 73 year old female with PMH of CHF, Afib, COPD, DM2, and severe b/l LE edema who presents to ED stating she was hypotensive at home and feeling feverish. She states that she has felt unwell for the past three days and she is feeling worse. She states she has chills, productive cough, SOB, and intermittent chest pain with coughing. She states that she had a fever of over 101 this AM. She also states that her BP, which normally runs low, was lower when she measured this AM, prompting her to seek evaluation. She denies nausea/vomiting/diarrhea. PMH: CHF, AFib, COPD, DM2, hypothyroidism, severe LE lymphedema with lateral wounds PSH: RLE abscess I&D, excision of L-sided abdominal wall mass Home meds: no changes since last visit NKDA FHx: mother had CAD Social: no smoking, drug, or alcohol use Review of Systems - Constitutional Constitutional: Chills, Fever - EENT Eyes: absent: Change in Vision - Cardiovascular Cardiovascular: As Per HPI - Respiratory Respiratory: As Per HPI - Gastrointestinal Gastrointestinal: absent: Abdominal Pain, Nausea, Vomiting - Genitourinary Genitourinary: absent: Change in Urinary Stream Past Patient History - Infectious Disease Hx of Infectious Diseases: None - Tetanus Immunizations Tetanus Immunization: Unknown - Past Social History Smoking Status: Never Smoked - CARDIAC Hx Cardiac Disorders: Yes (lymphedema) Hx Angina: Yes Hx Cardia Arrhythmia: Yes Hx Congestive Heart Failure: Yes Hx Peripheral Edema: Yes Hx Peripheral Vascular Disease: Yes - PULMONARY Hx Respiratory Disorders: Yes (using 02 at home) Hx Asthma: Yes Hx Chronic Obstructive Pulmonary Disease (COPD): Yes Hx Emphysema: Yes Hx Pneumonia: Yes - NEUROLOGICAL Hx Neurological Disorder: No - HEENT Hx HEENT Problems: Yes (glasses) - RENAL Hx Chronic Kidney Disease: No - ENDOCRINE/METABOLIC Hx Endocrine Disorders: Yes Hx Diabetes Mellitus Type 2: Yes - HEMATOLOGICAL/ONCOLOGICAL Hx Blood Disorders: Yes (SEPTICEMIA) - INTEGUMENTARY Hx Dermatological Problems: Yes Other/Comment: pt is obese, right outer thigh skin openings healed, redness, hard brown dry skin, dimpling to left thigh, pt c/o that she, sometimes has drainage from left thigh. both lower legs and feet dry skin. redness and discoloration to right abd fold healed, pt unable to turn in bed to assess skin on back, ble +4 pitting edema redness - MUSCULOSKELETAL/RHEUMATOLOGICAL Hx Falls: No - GASTROINTESTINAL Hx Gastrointestinal Disorders: Yes (benign mass removed from abd 30 yrs ago) - GENITOURINARY/GYNECOLOGICAL Hx Genitourinary Disorders: Yes Hx Incontinence: Yes (urine and stool) Hx Urinary Tract Infection: Yes - PSYCHIATRIC Hx Psychophysiologic Disorder: No Hx Substance Use: No - SURGICAL HISTORY Hx Cardiac Catheterization: Yes Other/Comment: cardiac cath 2005, picc line, sx to right leg for an infection - ANESTHESIA Hx Anesthesia: Yes Meds Allergies/Adverse Reactions: Allergies Allergy/AdvReac Type Severity Reaction Status Date / Time No Known Allergies Allergy Verified 04/26/18 06:48 - Medications Medications: Current Medications Vancomycin HCl 2 gm/ Sodium (Chloride) 500 mls @ 170 mls/hr IVPB ONCE ONE Stop: 06/01/18 18:41 Last Admin: 06/01/18 17:36 Dose: 170 mls/hr Sodium Chloride (Sodium Chloride 0.9%) 1,000 mls @ 999 mls/hr IV .Q1H1M STA Stop: 06/01/18 18:19 Last Admin: 06/01/18 17:36 Dose: 999 mls/hr Physical Exam - Constitutional Appears: Chronically Ill - Head Exam Head Exam: ATRAUMATIC, NORMAL INSPECTION - Eye Exam Eye Exam: EOMI, Normal appearance, PERRL - ENT Exam ENT Exam: Mucous Membranes Moist Additional comments: mouth with extensive oral candidiasis, throat erythematous - Neck Exam Neck exam: Positive for: Full Rom, Normal Inspection - Respiratory Exam Respiratory Exam: Clear to Auscultation Bilateral, NORMAL BREATHING PATTERN. absent: Accessory Muscle Use, Rales, Rhonchi, Wheezes - Cardiovascular Exam Cardiovascular Exam: Tachycardia, +S1, +S2. absent: Diastolic murmur, Gallop, Rubs, Systolic Murmur - GI/Abdominal Exam GI & Abdominal Exam: absent: Distended, Guarding, Tenderness - Extremities Exam Additional comments: extreme LE lymphedema bilaterally with wounds on the lateral thighs bilaterally - Neurological Exam Neurological exam: Alert, Oriented x3 - Psychiatric Exam Psychiatric exam: Normal Affect, Normal Mood - Skin Additional comments: wounds as described above Results - Vital Signs Recent Vital Signs: Last Vital Signs Temp 98.3 F 06/01/18 14:10 Pulse 87 06/01/18 17:14 Resp 18 06/01/18 17:14 BP 88/35 L 06/01/18 17:14 Pulse Ox 100 06/01/18 17:14 - Labs Result Diagrams: 06/01/18 15:10 06/01/18 16:34 Labs: Laboratory Results - last 24 hr 06/01/18 06/01/18 06/01/18 15:10 15:10 15:12 WBC 28.6 H* D RBC 4.10 Hgb 11.1 L Hct 34.1 L MCV 83.2 MCH 27.1 MCHC 32.6 RDW 16.9 H Plt Count 241 MPV 11.1 H Gran % 90.5 H Lymph % (Auto) 4.4 L Glenn % (Auto) 4.8 Eos % (Auto) 0.2 L Baso % (Auto) 0.1 Gran # 25.88 H Lymph # (Auto) 1.3 Glenn # (Auto) 1.4 H Eos # (Auto) 0.1 Baso # (Auto) 0.03 Neutrophils % (Manual) 91 H Band Neutrophils % 1 Lymphocytes % (Manual) 5 L Monocytes % (Manual) 3 Toxic Granulation 2+ Platelet Evaluation Normal Hypochromasia 2+ Rouleaux 2+ PT 24.1 H INR 2.08 APTT 36.2 pO2 71 H VBG pH 7.42 VBG pCO2 45.0 VBG HCO3 29.2 H VBG Total CO2 30.6 H VBG O2 Sat (Calc) 96.6 H VBG Base Excess 4.0 H VBG Potassium 4.2 Sodium 136.0 Chloride 103.0 Glucose 181 H Lactate 2.7 H FiO2 21.0 Potassium Carbon Dioxide Anion Gap BUN Creatinine Est GFR ( Amer) Est GFR (Non-Af Amer) Random Glucose Calcium Phosphorus Magnesium Total Bilirubin AST ALT Alkaline Phosphatase Troponin I NT-Pro-B Natriuret Pep Total Protein Albumin Globulin Albumin/Globulin Ratio Venous Blood Potassium 4.2 Influenza Typ A,B (EIA) 06/01/18 06/01/18 15:19 16:34 WBC RBC Hgb Hct MCV MCH MCHC RDW Plt Count MPV Gran % Lymph % (Auto) Glenn % (Auto) Eos % (Auto) Baso % (Auto) Gran # Lymph # (Auto) Glenn # (Auto) Eos # (Auto) Baso # (Auto) Neutrophils % (Manual) Band Neutrophils % Lymphocytes % (Manual) Monocytes % (Manual) Toxic Granulation Platelet Evaluation Hypochromasia Rouleaux PT INR APTT pO2 VBG pH VBG pCO2 VBG HCO3 VBG Total CO2 VBG O2 Sat (Calc) VBG Base Excess VBG Potassium Sodium 135 Chloride 103 Glucose Lactate FiO2 Potassium 4.3 Carbon Dioxide 26 Anion Gap 11 BUN 24 H Creatinine 0.8 Est GFR ( Amer) > 60 Est GFR (Non-Af Amer) > 60 Random Glucose 175 H Calcium 7.9 L Phosphorus 2.7 Magnesium 1.9 Total Bilirubin 1.0 AST 20 ALT 16 Alkaline Phosphatase 113 Troponin I < 0.01 NT-Pro-B Natriuret Pep 4420 H Total Protein 5.5 L Albumin 2.4 L Globulin 3.1 Albumin/Globulin Ratio 0.8 L Venous Blood Potassium Influenza Typ A,B (EIA) Negative for flu a/b Assessment & Plan - Assessment and Plan (Free Text) Assessment: 73 year old female with PMH of CHF, AFib, COPD, DM2, hypothyroidism, and severe LE lymphedema with lateral wounds is admitted to ICU for sepsis. Plan: Neuro: AA/o x 3 Patient has difficulty moving due to lymphedema but no obvious neurological deficits Reorient as necessary Cardio: Tachycardia likely 2/2 sepsis Hypotensive in 80s/40s on admission to ED Maintain MAP > 65 Four 1 L NS boluses given in ED, give two additional 1 L boluses Levophed started in ED, add vasopressin as needed Will monitor closely in MICU Pulm: CTA b/l, able to protect airway SpO2 > 95% on room air Supp O2 NC PRN CXR without acute findings GI: Diabetic diet as tolerated Protonix for GI PPX ID: Patient arrived with positive SIRS Sepsis may be 2/2 lateral leg wounds Started on empiric vanc and zosyn in ED Will continue on vanc and merem F/u blood, urine cx, procal CXR without acute findings ID consulted, recs appreciated /Nephro: BUN/Cr stable at 24/0.8 Monitor UOP closely Replete electrolytes as needed Heme/Onc: H/H stable at 11.1/34.1 Monitor closely for signs of HD compromise Monitor closely for signs of DIC GI/DVT PPX: Protonix and home warfarin (INR of 2.08 today) Full Code Monitor in MICU Case and plan reviewed and discussed with my attending Dr. Roma Qiu, DO IM Resident PGY-1 <Chacorta Garg - Last Filed: 06/01/18 19:06> Meds - Medications Medications: Current Medications Acetaminophen (Tylenol 325mg Tab) 650 mg PO Q6H PRN PRN Reason: Pain, moderate (4-7) NOREPINEPHRINE BIT/0.9 % NACL (Levophed 4 Mg/ 250 Ml Ns Premixed) 4 mg in 250 mls @ 15 mls/hr IV .[id number] PRN; Protocol PRN Reason: TITRATE PER MD ORDER Meropenem/Sodium Chloride (Merrem Iv 500 Mg/Ns 50 Ml) 500 mg in 50 mls @ 100 mls/hr IVPB Q8 RONI; Protocol Vancomycin HCl 1.5 gm/ Sodium (Chloride) 500 mls @ 167 mls/hr IVPB Q12H RONI; Protocol Sodium Chloride (Sodium Chloride 0.9%) 1,000 mls @ 999 mls/hr IV .Q1H1M STA Stop: 06/01/18 19:50 Levothyroxine Sodium (Synthroid) 25 mcg PO DAILY RONI Ondansetron HCl (Zofran Inj) 4 mg IVP Q6H PRN PRN Reason: Nausea/Vomiting Pantoprazole Sodium (Protonix Ec Tab) 40 mg PO BID RONI Prednisone (Prednisone Tab) 20 mg PO DAILY RONI Warfarin Sodium (Coumadin) 3 mg PO 1800 RONI; Protocol Results - Vital Signs Recent Vital Signs: Last Vital Signs Temp 98.3 F 06/01/18 14:10 Pulse 100 H 06/01/18 17:39 Resp 15 06/01/18 17:39 BP 86/67 L 06/01/18 17:39 Pulse Ox 97 06/01/18 17:39 - Labs Result Diagrams: 06/01/18 15:10 06/01/18 16:34 Labs: Laboratory Results - last 24 hr 06/01/18 06/01/18 06/01/18 15:10 15:10 15:12 WBC 28.6 H* D RBC 4.10 Hgb 11.1 L Hct 34.1 L MCV 83.2 MCH 27.1 MCHC 32.6 RDW 16.9 H Plt Count 241 MPV 11.1 H Gran % 90.5 H Lymph % (Auto) 4.4 L Glenn % (Auto) 4.8 Eos % (Auto) 0.2 L Baso % (Auto) 0.1 Gran # 25.88 H Lymph # (Auto) 1.3 Glenn # (Auto) 1.4 H Eos # (Auto) 0.1 Baso # (Auto) 0.03 Neutrophils % (Manual) 91 H Band Neutrophils % 1 Lymphocytes % (Manual) 5 L Monocytes % (Manual) 3 Toxic Granulation 2+ Platelet Evaluation Normal Hypochromasia 2+ Rouleaux 2+ PT 24.1 H INR 2.08 APTT 36.2 pO2 71 H VBG pH 7.42 VBG pCO2 45.0 VBG HCO3 29.2 H VBG Total CO2 30.6 H VBG O2 Sat (Calc) 96.6 H VBG Base Excess 4.0 H VBG Potassium 4.2 Sodium 136.0 Chloride 103.0 Glucose 181 H Lactate 2.7 H FiO2 21.0 Potassium Carbon Dioxide Anion Gap BUN Creatinine Est GFR ( Amer) Est GFR (Non-Af Amer) Random Glucose Calcium Phosphorus Magnesium Total Bilirubin AST ALT Alkaline Phosphatase Troponin I NT-Pro-B Natriuret Pep Total Protein Albumin Globulin Albumin/Globulin Ratio Venous Blood Potassium 4.2 Influenza Typ A,B (EIA) 06/01/18 06/01/18 15:19 16:34 WBC RBC Hgb Hct MCV MCH MCHC RDW Plt Count MPV Gran % Lymph % (Auto) Glenn % (Auto) Eos % (Auto) Baso % (Auto) Gran # Lymph # (Auto) Glenn # (Auto) Eos # (Auto) Baso # (Auto) Neutrophils % (Manual) Band Neutrophils % Lymphocytes % (Manual) Monocytes % (Manual) Toxic Granulation Platelet Evaluation Hypochromasia Rouleaux PT INR APTT pO2 VBG pH VBG pCO2 VBG HCO3 VBG Total CO2 VBG O2 Sat (Calc) VBG Base Excess VBG Potassium Sodium 135 Chloride 103 Glucose Lactate FiO2 Potassium 4.3 Carbon Dioxide 26 Anion Gap 11 BUN 24 H Creatinine 0.8 Est GFR ( Amer) > 60 Est GFR (Non-Af Amer) > 60 Random Glucose 175 H Calcium 7.9 L Phosphorus 2.7 Magnesium 1.9 Total Bilirubin 1.0 AST 20 ALT 16 Alkaline Phosphatase 113 Troponin I < 0.01 NT-Pro-B Natriuret Pep 4420 H Total Protein 5.5 L Albumin 2.4 L Globulin 3.1 Albumin/Globulin Ratio 0.8 L Venous Blood Potassium Influenza Typ A,B (EIA) Negative for flu a/b Addendum Addendum: 06/01/18 19:06 ICU Attending Addendum Patient seen and examined. Case reviewed on round with housestaff. Agree with resident note above with the following additions/exceptions: 73 F PMH of CHF, AFib, COPD, DM2, hypothyroidism, and severe LE lymphedema with BL wounds is admitted to ICU for sepsis. Possible source include urine and wounds hx of ESBL Will empirically treat with merrem and vanc CXR no infiltrate f/u blood cx and UA SHe is very obese and will require a large amount of fluid at 30cc/kg, will give 3-4L bolus and re-asssess Trend lac Levophed if needed TLC being placed in ED Rest of care as noted above Chacorta Garg MD [employer]
[2018-06-01] MEDS: NOREPINEPHRINE BIT/0.9 % NACL 4 MG/250 ML BAG IV PRN (19:06)
[2018-06-01 19:16] LABS: VENOUS BLOOD GAS BASE EXCESS 4.2 mmol/L (0.0-2.0); VENOUS BLOOD GAS PO2 43 mm/Hg (30-55); VENOUS BLOOD PH 7.39 (7.32-7.43)
[2018-06-01] MEDS ORDERED: Insulin Regular 1 UNITS/0.01 ML ML ONE (20:14)
--- NOTE | 2018-06-01 20:24 | PCM.PROC ---
Procedures Attestation:: I certify that I have explained the specified Operation(s) or Procedure(s), risks, benefits and reasonable alternatives to the Patient and/or other person responsible. The opportunity was given to ask questions and all questions answered - Central Line Placement Right Internal Jugular Triple Lumen Catheter Aseptic technique was employed throughout the procedure: Hand Hygiene done prior to procedure, Full sterile barriers (mask, hair cover, sterile gown, sterile gloves), Full body sterile drape, Chloraprep Antiseptic: 30 second prep for IJ or SC sites CVP Time Out Performed: Yes Pt. Placed on Pulse Ox Monitor: Yes Central Line Prep: Chlorhexidine-Alcohol Combination Local Anesthesia Used: Lidocaine 1% Amount of Anesthesia Used (mls): 2 Ultrasound Used for Placement: Yes Central Line Lumen Inserted: triple Central Line Length: 16 cm Post Procedure: Sutured in Place, Good Blood Return, All Ports Aspirated, Flushed, Capped, Sterile Dressing Applied Secured by: Suture Post procedure dressing: Chlorhexidine disc (Biopatch) Post Procedure X-Ray: Yes Patient Tolerated Procedure: Well Additional Comments: Upon CXR, central line turned cephalad instead of continuing caudal. Patient denied any new symptoms including headache, numbness, tingling, weakness, facial droop, speech changes or vision changes. Central Line in R IJ removed and pressure dressing placed.
--- NOTE | 2018-06-01 20:27 | PCM.PROC ---
<Rolando Bernard - Last Filed: 06/01/18 20:24> Procedures Attestation:: I certify that I have explained the specified Operation(s) or Procedure(s), risks, benefits and reasonable alternatives to the Patient and/or other person responsible. The opportunity was given to ask questions and all questions answered - Central Line Placement Left Internal Jugular Triple Lumen Catheter Aseptic technique was employed throughout the procedure: Hand Hygiene done prior to procedure, Full sterile barriers (mask, hair cover, sterile gown, sterile gloves), Full body sterile drape, Chloraprep Antiseptic: 30 second prep for IJ or SC sites CVP Time Out Performed: Yes Pt. Placed on Pulse Ox Monitor: Yes Central Line Prep: Chlorhexidine-Alcohol Combination Local Anesthesia Used: Lidocaine 1% Amount of Anesthesia Used (mls): 2 Ultrasound Used for Placement: Yes Central Line Lumen Inserted: triple Central Line Length: 30 cm Post Procedure: Sutured in Place, Good Blood Return, All Ports Aspirated, Flushed, Capped, Sterile Dressing Applied Secured by: Suture Post procedure dressing: Clear vapor permeable, Chlorhexidine disc (Biopatch) Post Procedure X-Ray: Yes Patient Tolerated Procedure: Well, No Complications Immediate Complications: None <Kellen Gama - Last Filed: 06/01/18 22:15> Attending/Attestation - Attestation I have personally seen and examined this patient.: Yes I have fully participated in the care of the patient.: Yes I have reviewed all pertinent clinical information, including history, physical exam and plan: Yes
[2018-06-01] MEDS ORDERED: Influenza Vaccine 60 mcg/0.5 mL SYR (4YR UP) IM ONE (21:08)
[2018-06-01] MEDS ORDERED: Pneumococcal 23-Valent Vaccine IM ONE (21:08)
--- NOTE | 2018-06-01 22:16 | CARD ---
APPROVED REPORT Date of service: 06/01/2018 EKG Measurement Heart [id number] <Conclusion> Atrial fibrillation with rapid ventricular response Minimal voltage criteria for LVH, may be normal variant Inferior infarct, age undetermined Nonspecific T wave changes Abnormal ECG
[2018-06-01] MEDS: Insulin Reg-MEDIUM-Coverage SC SCH (22:30)
[2018-06-01] MEDS: MEROPENEM 500 MG in NS 500 MG/50 ML BAG IVPB SCH (22:30)
--- NOTE | 2018-06-02 03:43 | HP ---
HISTORY OF PRESENT ILLNESS: I have known Maria Isabel Bowden for many years for very long time. She has been dealing with bronchitis, upper respiratory infection, swelling, bilateral thigh ulcers, bedridden at home. I do house calls on her, and over the past 7-10 days, I have been giving her antibiotics from Augmentin to Levaquin again, she has done this before. Lots of cough medicines, and she did seem to have gotten worse, ended up in the emergency room. She has fevers, chills right in front of me, sore throat, congestion, coughing. She had 101.7 temp 3 days ago. I had her on Levaquin, before that I had her on Augmentin. Her blood pressure has been up and down. She has bilateral thigh chronic ulcers. They do dressing changes with Silvadene cream every day, also decrease in appetite, some shortness of breath, very difficult for her to move around. PAST MEDICAL HISTORY: She has a past medical history. She is a 73-year-old female, morbidly obese over 600 pounds, was over 700 pounds the last time she was in the hospital. She has PVD, angina, CHF, AFib, peripheral edema, chronic obstructive pulmonary disease, pneumonia, emphysema, asthma, menopause, septicemia, diabetes, very short of breath, bilateral thigh ulcers, multiple wounds. She has 4+ pitting edema in bilateral lower extremities. She has lymphedema. She uses oxygen at home. She has emphysema, wears glasses, diabetes. There is some drainage bilaterally on either side of the thighs. She is incontinent of stool and urine. She has a history of urinary tract infections. PAST SURGICAL HISTORY: She had a benign mass removed from the abdomen 30 years ago. She had cardiac cath, she had PICC line, surgery to the right leg for an infection in the past. SOCIAL HISTORY: Never smoked. No alcohol. No drugs. FAMILY HISTORY: There is diabetes and hypertension in the family. ALLERGIES: NO KNOWN DRUG ALLERGIES. MEDICATIONS: She is on potassium, Januvia, Coumadin, prednisone, DuoNebs, Tessalon Perles, Lotrisone cream, Flonase, Lasix, Levemir, Synthroid, Glucophage, Silvadene cream, Cardizem CD. REVIEW OF SYSTEMS: She is fatigued. She is feverish 101.7 temp, chills, weak, lethargic, worried. She has a sore throat. There is coughing, shortness of breath. There is chest discomfort. There is nauseousness, poor appetite. No abdominal pain, constipation, or diarrhea. She has incontinence of her urine. Bilateral thighs have wounds with oozing. No headache, no dizziness, no focal weakness. No sweating, not anxious, little nervous about being in the hospital. PHYSICAL EXAMINATION: VITAL SIGNS: 98.3 temp, 105 pulse, 20 respiratory rate, blood pressure is at about 80/40 due to lots of IV fluid challenges. GENERAL: She is uncomfortable in bed, ill appearing, morbidly obese, alert and oriented x3. HEENT: Head is atraumatic, normocephalic. Extraocular muscles are intact. Pupils equal, reactive to light and accommodation. Throat is dry. NECK: Supple. HEART: Irregular rhythm. LUNGS: Decreased breath sounds, fair exchange. No wheezes, rhonchi, or rales. ABDOMEN: Soft, morbidly obese, nontender. Positive bowel sounds. No guarding, no rebound, no CVA tenderness. EXTREMITIES: A +10/4 pitting edema in bilateral lower extremities with severe lymphedema. Bilateral thighs have ulcers throughout both sides the whole length with oozing. NEUROLOGIC: GCS is 15. Cranial nerves II-XII grossly intact. Speech is normal. Alert and oriented x3. SKIN: Dry for the most part. LABORATORY DATA: She had multiple tests done. Negative for the flu. Sodium 135, potassium 4.3, BUN 24, creatinine 0.8, GFR is greater than 60, sugar is 175, calcium 7.9, phosphorus 2.7, magnesium 1.9. Total bili is 1, AST is 20, ALT is 16, alk phos 113. Troponin I is less than 0.01. BNP is high at 4420. Total protein is 5.5, albumin is 2.4. Lactate is 2.7, quite high. INR is 2.08, she is on Coumadin. White count 28.6, quite high; 11.1 hemoglobin; 34.1 hematocrit with 241 platelets. ASSESSMENT AND PLAN: She is going to have consults with Infectious Disease, Cardiology, Pulmonology and surgeon for the wounds. She will be on Coumadin, insulin coverage, Merrem IV, Levophed, prednisone, Protonix, multiple IV fluid challenges, Synthroid. She was given some vancomycin, Zofran, and Zosyn in the ER. Hopefully, she will improve. She has severe sepsis, CHF, COPD, skin ulcers, and morbidly obese. Alan Mann DO
[2018-06-02 05:46] LABS: BASO # 0.01 K/mm3 (0.0-2.0); GRAN # 19.38 (1.4-6.5); GRAN % 91.5 % (50.0-68.0); HEMOGLOBIN 9.8 g/dL (12.0-16.0); LYMPH # 0.9 (1.2-3.4); LYMPH % 4.1 % (22.0-35.0); MEAN CELL VOLUME 81.8 fl (80.0-105.0); MEAN CORPUSCULAR HEMOGLOBIN 26.3 pg (25.0-35.0); MEAN CORPUSCULAR HGB CONC 32.1 g/dl (31.0-37.0); MEAN PLATELET VOLUME 10.6 fl (7.0-11.0); MONO # 0.9 (0.1-0.6); MONO % 4.4 % (1.0-6.0); RBC 3.73 10^6/uL (3.5-6.1); RED CELL DISTRIBUTION WIDTH 16.5 % (11.5-14.5); WHITE BLOOD COUNT 21.2 10^3/ul (4.5-11.0)
[2018-06-02 05:48] LABS: VENOUS BLOOD GAS BASE EXCESS 3.9 mmol/L (0.0-2.0); VENOUS BLOOD GAS PO2 45 mm/Hg (30-55); VENOUS BLOOD PH 7.44 (7.32-7.43)
[2018-06-02 06:08] LABS: ALB/GLOB RATIO 0.8 (1.1-1.8); ALBUMIN 2.4 g/dL (3.0-4.8); ALT/SGPT 32 U/L (7-56); AST/SGOT 24 U/L (14-36); BLOOD UREA NITROGEN 22 mg/dL (7-21); CALCIUM 8.1 mg/dL (8.4-10.5); GFR NON-AFRICAN AMERICAN > 60
[2018-06-02] MEDS: MEROPENEM 500 MG in NS 500 MG/50 ML BAG IVPB SCH (06:30)
[2018-06-02] MEDS: Vancomycin 1.5 GM in Sodium Chloride 0.9% 500 ML IVPB SCH ×2 (06:33→18:40)
--- NOTE | 2018-06-02 07:29 | CP.PCM.CON ---
History of Present Illness - History of Present Illness History of Present Illness: Consult for Dr. Castillo Reason for consult: thigh ulcers 73F with PMH of CHF, Afib, COPD, DM2, and severe b/l LE edema presented to [facility] [place] [facility] stating she was hypotensive at home and feeling febrile. Patient complaining of sore throat. General surgery consulted for b/l thigh wounds. PMH: CHF, AFib, COPD, DM2, hypothyroidism, severe LE lymphedema with lateral wounds PSH: RLE abscess I&D, excision of L-sided abdominal wall mass All: NKDA Soc Hx: denies smoking, EtOH use, illicit drug use Review of Systems - Review of Systems Review of Systems: 10 pt ROS unremarkable, except as stated in HPI Past Patient History - Infectious Disease Hx of Infectious Diseases: None - Tetanus Immunizations Tetanus Immunization: Unknown - Past Social History Smoking Status: Never Smoked - CARDIAC Hx Cardiac Disorders: Yes (lymphedema) Hx Angina: Yes Hx Cardia Arrhythmia: Yes Hx Congestive Heart Failure: Yes Hx Peripheral Edema: Yes (ble +4 pitting) Hx Peripheral Vascular Disease: Yes Other/Comment: circulation problems, chronic a fib - PULMONARY Hx Respiratory Disorders: Yes (using 02 at home/ nebulizer machine) Hx Asthma: Yes Hx Chronic Obstructive Pulmonary Disease (COPD): Yes Hx Emphysema: Yes Hx Pneumonia: Yes - NEUROLOGICAL Hx Neurological Disorder: No - HEENT Hx HEENT Problems: Yes (glasses) Other/Comment: thrush to oral cavity and tongue - RENAL Hx Chronic Kidney Disease: No - ENDOCRINE/METABOLIC Hx Endocrine Disorders: Yes Hx Diabetes Mellitus Type 2: Yes - HEMATOLOGICAL/ONCOLOGICAL Hx Blood Disorders: Yes (SEPTICEMIA) - INTEGUMENTARY Hx Dermatological Problems: Yes (chronic venous stasis dermatitis ble) Other/Comment: pt is obese, right outer thigh skin openings healed, redness, hard brown dry skin, dimpling to left thigh, pt c/o that she, sometimes has drainage from left thigh. both lower legs and feet dry skin. redness and discoloration to right abd fold healed, pt unable to turn in bed to assess skin on back, ble +4 pitting edema redness - MUSCULOSKELETAL/RHEUMATOLOGICAL Hx Musculoskeletal Disorders: Yes Hx Falls: No Hx Unsteady Gait: Yes (bedbound) - GASTROINTESTINAL Hx Gastrointestinal Disorders: Yes (benign mass removed from abd 30 yrs ago) Other/Comment: morbid obesity - GENITOURINARY/GYNECOLOGICAL Hx Genitourinary Disorders: Yes Hx Incontinence: Yes (urine and stool) Hx Urinary Tract Infection: Yes - PSYCHIATRIC Hx Psychophysiologic Disorder: No Hx Substance Use: No - SURGICAL HISTORY Hx Surgeries: Yes Hx Cardiac Catheterization: Yes (2005) Other/Comment: cardiac cath 2005, picc line, sx to right leg for an infection, benign mass from abd 30 yrs ago - ANESTHESIA Hx Anesthesia: Yes Meds Allergies/Adverse Reactions: Allergies Allergy/AdvReac Type Severity Reaction Status Date / Time No Known Allergies Allergy Verified 04/26/18 06:48 - Medications Medications: Current Medications Acetaminophen (Tylenol 325mg Tab) 650 mg PO Q6H PRN PRN Reason: Pain, moderate (4-7) Hydrocortisone Sodium Succinate (Solu-Cortef) 50 mg IVP Q8 RONI Last Admin: 06/02/18 06:30 Dose: 50 mg NOREPINEPHRINE BIT/0.9 % NACL (Levophed 4 Mg/ 250 Ml Ns Premixed) 4 mg in 250 mls @ 15 mls/hr IV .[id number] PRN; Protocol PRN Reason: TITRATE PER MD ORDER Last Admin: 06/01/18 19:06 Dose: 4 mcg/min, 15 mls/hr Meropenem/Sodium Chloride (Merrem Iv 500 Mg/Ns 50 Ml) 500 mg in 50 mls @ 100 mls/hr IVPB Q8 RONI; Protocol Last Admin: 06/02/18 06:30 Dose: 100 mls/hr Vancomycin HCl 1.5 gm/ Sodium (Chloride) 500 mls @ 167 mls/hr IVPB Q12H RONI; Protocol Last Admin: 06/02/18 06:33 Dose: 167 mls/hr Potassium Chloride (Potassium Chloride 10 Meq/100 Ml) 10 meq in 100 mls @ 50 mls/hr IVPB Q2H RONI Stop: 06/02/18 10:59 Insulin Human Regular (Humulin R Med) 0 units SC ACHS RONI; Protocol Last Admin: 06/01/18 22:30 Dose: Not Given Levothyroxine Sodium (Synthroid) 25 mcg PO DAILY RONI Ondansetron HCl (Zofran Inj) 4 mg IVP Q6H PRN PRN Reason: Nausea/Vomiting Pantoprazole Sodium (Protonix Ec Tab) 40 mg PO BID RONI Warfarin Sodium (Coumadin) 3 mg PO 1800 RONI; Protocol Physical Exam - Constitutional Appears: No Acute Distress - Head Exam Head Exam: NORMOCEPHALIC - Eye Exam Eye Exam: EOMI, Normal appearance - ENT Exam ENT Exam: Mucous Membranes Moist - Respiratory Exam Respiratory Exam: NORMAL BREATHING PATTERN - Cardiovascular Exam Cardiovascular Exam: +S1, +S2 - GI/Abdominal Exam GI & Abdominal Exam: Soft - Extremities Exam Additional comments: Severe b/l LE lymphedema - Neurological Exam Neurological exam: Alert, Oriented x3 - Psychiatric Exam Psychiatric exam: Normal Mood - Skin Skin Exam: Warm Results - Vital Signs Recent Vital Signs: Last Vital Signs Temp 98.3 F 06/01/18 14:10 Pulse 99 H 06/02/18 04:05 Resp 23 06/02/18 03:20 BP 119/59 L 06/02/18 03:00 Pulse Ox 98 06/02/18 03:20 - Labs Result Diagrams: 06/02/18 05:20 06/02/18 05:20 Labs: Laboratory Results - last 24 hr 06/01/18 06/01/18 06/01/18 15:10 15:10 15:12 WBC 28.6 H* D RBC 4.10 Hgb 11.1 L Hct 34.1 L MCV 83.2 MCH 27.1 MCHC 32.6 RDW 16.9 H Plt Count 241 MPV 11.1 H Gran % 90.5 H Lymph % (Auto) 4.4 L [place] % (Auto) 4.8 Eos % (Auto) 0.2 L Baso % (Auto) 0.1 Gran # 25.88 H Lymph # (Auto) 1.3 [place] # (Auto) 1.4 H Eos # (Auto) 0.1 Baso # (Auto) 0.03 Neutrophils % (Manual) 91 H Band Neutrophils % 1 Lymphocytes % (Manual) 5 L Monocytes % (Manual) 3 Toxic Granulation 2+ Platelet Evaluation Normal Hypochromasia 2+ Rouleaux 2+ PT 24.1 H INR 2.08 APTT 36.2 pO2 71 H VBG pH 7.42 VBG pCO2 45.0 VBG HCO3 29.2 H VBG Total CO2 30.6 H VBG O2 Sat (Calc) 96.6 H VBG Base Excess 4.0 H VBG Potassium 4.2 Sodium 136.0 Chloride 103.0 Glucose 181 H Lactate 2.7 H FiO2 21.0 Potassium Carbon Dioxide Anion Gap BUN Creatinine Est GFR ( Amer) Est GFR (Non-Af Amer) Random Glucose Calcium Phosphorus Magnesium Total Bilirubin AST ALT Alkaline Phosphatase Troponin I NT-Pro-B Natriuret Pep Total Protein Albumin Globulin Albumin/Globulin Ratio Venous Blood Potassium 4.2 Influenza Typ A,B (EIA) 06/01/18 06/01/18 06/01/18 15:19 16:34 19:08 WBC RBC Hgb Hct MCV MCH MCHC RDW Plt Count MPV Gran % Lymph % (Auto) [place] % (Auto) Eos % (Auto) Baso % (Auto) Gran # Lymph # (Auto) [place] # (Auto) Eos # (Auto) Baso # (Auto) Neutrophils % (Manual) Band Neutrophils % Lymphocytes % (Manual) Monocytes % (Manual) Toxic Granulation Platelet Evaluation Hypochromasia Rouleaux PT INR APTT pO2 43 VBG pH 7.39 VBG pCO2 50.0 VBG HCO3 30.3 H VBG Total CO2 31.8 H VBG O2 Sat (Calc) 82.5 H VBG Base Excess 4.2 H VBG Potassium 3.6 Sodium 135 138.0 Chloride 103 104.0 Glucose 175 H Lactate 1.9 FiO2 21.0 Potassium 4.3 Carbon Dioxide 26 Anion Gap 11 BUN 24 H Creatinine 0.8 Est GFR ( Amer) > 60 Est GFR (Non-Af Amer) > 60 Random Glucose 175 H Calcium 7.9 L Phosphorus 2.7 Magnesium 1.9 Total Bilirubin 1.0 AST 20 ALT 16 Alkaline Phosphatase 113 Troponin I < 0.01 NT-Pro-B Natriuret Pep 4420 H Total Protein 5.5 L Albumin 2.4 L Globulin 3.1 Albumin/Globulin Ratio 0.8 L Venous Blood Potassium 3.6 Influenza Typ A,B (EIA) Negative for flu a/b 06/02/18 06/02/18 06/02/18 05:20 05:20 05:20 WBC 21.2 H D RBC 3.73 Hgb 9.8 L Hct 30.5 L MCV 81.8 MCH 26.3 MCHC 32.1 RDW 16.5 H Plt Count 215 MPV 10.6 Gran % 91.5 H Lymph % (Auto) 4.1 L [place] % (Auto) 4.4 Eos % (Auto) 0.0 L Baso % (Auto) 0.0 Gran # 19.38 H Lymph # (Auto) 0.9 L [place] # (Auto) 0.9 H Eos # (Auto) 0.0 Baso # (Auto) 0.01 Neutrophils % (Manual) Band Neutrophils % Lymphocytes % (Manual) Monocytes % (Manual) Toxic Granulation Platelet Evaluation Hypochromasia Rouleaux PT INR APTT pO2 45 VBG pH 7.44 H VBG pCO2 42.0 VBG HCO3 28.5 H VBG Total CO2 29.8 H VBG O2 Sat (Calc) 85.5 H VBG Base Excess 3.9 H VBG Potassium 3.5 L Sodium 138 137.0 Chloride 103 105.0 Glucose 234 H Lactate 1.6 FiO2 21.0 Potassium 3.5 L Carbon Dioxide 28 Anion Gap 11 BUN 22 H Creatinine 0.9 Est GFR ( Amer) > 60 Est GFR (Non-Af Amer) > 60 Random Glucose 221 H Calcium 8.1 L Phosphorus 3.0 Magnesium 1.9 Total Bilirubin 1.1 AST 24 ALT 32 Alkaline Phosphatase 157 H D Troponin I NT-Pro-B Natriuret Pep Total Protein 5.3 L Albumin 2.4 L Globulin 2.9 Albumin/Globulin Ratio 0.8 L Venous Blood Potassium 3.5 L Influenza Typ A,B (EIA) Assessment & Plan - Assessment and Plan (Free Text) Assessment: 73F with severe b/l LE lymphedema Plan: -Recommend repositioning Q2H -Air mattress -Apply silvadene to affected areas -Medical management per ICU team -Further recs per Dr. Jonathan Macias PGY3
[2018-06-02] MEDS: Insulin Reg-MEDIUM-Coverage SC SCH ×4 (08:18→21:39)
[2018-06-02] MEDS: Pantoprazole 40 mg EC Tab PO SCH ×2 (09:32→17:47)
[2018-06-02] MEDS: Levothyroxine 25 MCG TAB PO SCH (09:32)
[2018-06-02] MEDS: Silver Sulfadiazine 1% Cream (25 gm) TP SCH ×2 (09:35→17:46)
--- NOTE | 2018-06-02 09:47 | RAD ---
Date of service: 06/01/2018 HISTORY: fever COMPARISON: No prior. FINDINGS: LUNGS: No active pulmonary disease. PLEURA: No significant pleural effusion identified, no pneumothorax apparent. CARDIOVASCULAR: No atherosclerotic calcification present Cardiomegaly unchanged compared to the prior study. OSSEOUS STRUCTURES: No significant abnormalities. VISUALIZED UPPER ABDOMEN: Normal. OTHER FINDINGS: None. IMPRESSION: No active disease. No significant interval change compared to the prior examination(s).
--- NOTE | 2018-06-02 09:50 | RAD ---
Date of service: 06/01/2018 HISTORY: s/p L IJ placement COMPARISON: 19:07 June 01, 2018 FINDINGS: LUNGS: No active pulmonary disease. PLEURA: No significant pleural effusion identified, no pneumothorax apparent. CARDIOVASCULAR: No atherosclerotic calcification present Satisfactory position of recently placed IJ catheter. Tip is in the SVC within 5 cm of the cavoatrial junction. OSSEOUS STRUCTURES: No significant abnormalities. VISUALIZED UPPER ABDOMEN: Normal. OTHER FINDINGS: None. IMPRESSION: Satisfactory position of venous access catheter inserted via left IJ approach. No pneumothorax. Catheter in satisfactory position. Otherwise, no interval change.
--- NOTE | 2018-06-02 10:48 | PN ---
DATE: 06/02/2018 SUBJECTIVE: The patient is seen and examined at bedside. She is comfortable. She talks full sentences. She is not in respiratory or otherwise distress. She reports doing subjectively better with sore throat and headache gone. PHYSICAL EXAMINATION: VITAL SIGNS: Blood pressure 122/65, heart rate 97, oxygen saturation 97 on room air, respiratory rate 17. ENT: Head and neck atraumatic. LUNGS: Clear to auscultation bilaterally. HEART: Irregular rate and rhythm. S1 and S2 distant. ABDOMEN: Soft, nontender and nondistended. MUSCULOSKELETAL: There is a lot of soft tissue present consistent with morbid obesity. Wound care provided by Surgical Service, which was at bedside just a minute ago. SKIN: Moist. PSYCHIATRIC: The patient is alert, awake and oriented. LABORATORY DATA: WBC 21.2, down from 28.6; hemoglobin 9.8, down from 11.1; platelet count 215; eosinophils 0; granulocytes 91%. PH 7.44. Lactic acid 1.6, down from 2.7. Sodium 138, potassium 3.5, chloride 103, carbon dioxide 28, BUN 22, creatinine 0.9, glucose 221, AST 24, ALT 32, total bilirubin 1.1, alkaline phosphatase 157, albumin 2.4. Influenza type A and B negative. MEDICATIONS: Tylenol p.r.n., hydrocortisone 50 mg IV every 8 (weaned down to 50 mg IV daily) as the patient is off of pressors right now, Synthroid, meropenem, Zofran p.r.n., Protonix, vancomycin, warfarin. Chest x-ray showed increased bilateral interstitial markings. No distinct infiltrate. However, cannot rule out consolidation or interstitial infiltrate. ASSESSMENT AND PLAN: This is a 73-year-old lady, who presented with septic shock of pulmonary or soft tissue source. Since her admission to [facility] and ICU, in particular, vasopressor support was weaned down/off. Stress dose steroids are actively being tapered down. She reports subjective improvement in her clinical status . No signs of end-organ dysfunction at present time. Her renal function and liver function appears to be within normal limits. She is mentating well. Her lactic acid level went down to normal level. Her leukocytosis improved. She is afebrile. We will monitor her in the intensive care unit today; however, if she is doing okay overnight, we will consider transfer out telemetry or Med-Surg floor. We will continue with wound care and surgical service follows her up for it. Provided she has a history of severe mitral regurgitation and pulmonary hypertension and the fact that she was aggressively fluid resuscitated for septic shock (which now resolved) we will diurese her. We will monitor her urine output, avoid hyperchloremia, avoid nephrotoxic medication, but not at expense of treating underlying disease. Maintain mean arterial pressure more than 65. Maintain blood glucose within 140-180 range according to NICE-SUGAR trial. Deep venous thrombosis and gastrointestinal prophylaxis. ccm time 40 min Gigi Sosa MD MTDD
--- NOTE | 2018-06-02 11:05 | CP.CCUPN ---
<Rhonda Meyer - Last Filed: 06/02/18 11:34> CCU Subjective - Physician Review Subjective (Free Text): Rhonda Meyer, PGY-1, CCU Progress Note for Dr. Sosa Patient seen and examined at bedside. Today, patient complains of sore throat, headache, loss of appetite, heartburn, and mild tremor. Patient today denies prior productive cough, shortness of breath fever, and dizziness. Patient also denies chest pain, heart palpitations, wheezing, nausea, vomiting, constipation, diarrhea, dysuria, hematuria, numbness/tingling. 12-point ROS was negative except for what was mentioned above. CCU Objective - Vital Signs / Intake & Output Vital Signs (Last 4 hours): Vital Signs Pulse Resp BP Pulse Ox 06/02/18 08:40 82 18 99 06/02/18 08:30 89 18 94 L 06/02/18 08:20 84 17 98 06/02/18 08:10 93 H 98 06/02/18 08:00 95/51 L 06/02/18 07:59 91 H 19 98 06/02/18 07:50 86 25 H 97 06/02/18 07:40 87 21 97 06/02/18 07:30 98 H 22 98 06/02/18 07:20 90 27 H 98 06/02/18 07:10 81 18 98 Intake and Output (Last 8hrs): Intake & Output 06/01/18 06/02/18 06/02/18 22:59 06:59 14:59 Weight 604 lb Other: Voiding Method Diaper - Physical Exam Head: Positive for: Atraumatic, Normocephalic Pupils: Positive for: PERRL Extroacular Muscles: Positive for: EOMI Conjunctiva: Positive for: Normal Mouth: Positive for: Dry Pharnyx: Positive for: Normal. Negative for: ERYTHEMA, EXUDATE, TONSILS ENLARGED Nose (External): Positive for: Atraumatic Nose (Internal): Positive for: No Active Bleeding Neck: Positive for: Normal Range of Motion. Negative for: Meningeal Signs, MIDLINE TENDERNESS, Lymphadenopathy Respiratory/Chest: Positive for: Clear to Auscultation, Good Air Exchange. Negative for: Respiratory Distress, Accessory Muscle Use, Wheezes, Rales, Rhonchi Cardiovascular: Positive for: Irregular Rhythm (known hx of afib), Tachycardic. Negative for: Murmurs Abdomen: Negative for: Tenderness, Distention, Peritoneal Signs, Rebound, Guarding Back: Positive for: Normal Inspection Upper Extremity: Positive for: Normal Inspection, NORMAL PULSES. Negative for: Cyanosis, Edema Lower Extremity: Positive for: Edema (pitting edema (chronic)), Other (Extremely large thighs with multiple chronic wounds on posterior and lateral aspects b/l at multiple stages of healing. No acute signs of infections seen.). Negative fo r: NORMAL PULSES, Tenderness Neurological: Positive for: GCS=15, CN II-XII Intact, Speech Normal Skin: Positive for: Warm, Dry, Normal Color. Negative for: Rashes Psychiatric: Positive for: Alert, Oriented x 3, Normal Insight, Normal Concentration - Medications Active Medications: Active Medications Generic Name Dose Route Start Last Admin Trade Name Freq PRN Reason Stop Dose Admin Acetaminophen 650 mg 06/01/18 19:01 Tylenol 325mg Tab PO Q6H PRN Pain, moderate (4-7) Hydrocortisone Sodium Succinate 50 mg 06/02/18 10:00 06/02/18 09:31 Solu-Cortef IVP 50 mg DAILY RONI Administration NOREPINEPHRINE BIT/0.9 % NACL 4 mg in 250 mls @ 15 mls/hr 06/01/18 18:02 06/01/18 19:06 Levophed 4 Mg/ 250 Ml Ns Premixed IV 4 mcg/min .[id number] PRN 15 mls/hr TITRATE PER MD ORDER Administration Protocol 4 MCG/MIN Vancomycin HCl 1.5 gm/ Sodium 500 mls @ 167 mls/hr 06/02/18 06:00 06/02/18 06:33 Chloride IVPB 167 mls/hr Q12H RONI Administration Protocol Meropenem 1 gm in 50 mls @ 100 mls/hr 06/02/18 10:42 Merrem Iv 1 Gm Premix IVPB 06/11/18 10:43 Q8 RONI Protocol Insulin Human Regular 0 units 06/01/18 22:00 06/02/18 08:18 Humulin R Med SC 3 units ACHS RONI Administration Protocol Levothyroxine Sodium 25 mcg 06/02/18 10:00 06/02/18 09:32 Synthroid PO 25 mcg DAILY RONI Administration Ondansetron HCl 4 mg 06/01/18 19:01 Zofran Inj IVP Q6H PRN Nausea/Vomiting Pantoprazole Sodium 40 mg 06/02/18 10:00 06/02/18 09:32 Protonix Ec Tab PO 40 mg BID RONI Administration Silver Sulfadiazine 0 gm 06/02/18 10:00 06/02/18 09:35 Silvadene 1% 25 Gm TP 25 gm BID RONI Administration Warfarin Sodium 3 mg 06/02/18 18:00 Coumadin PO 1800 RONI Protocol - Patient Studies Lab Studies: Lab Studies 06/02/18 06/02/18 06/02/18 Range/Units 05:20 05:20 05:20 WBC 21.2 H D (4.5-11.0) 10^3/ul RBC 3.73 (3.5-6.1) 10^6/uL Hgb 9.8 L (12.0-16.0) g/dL Hct 30.5 L (36.0-48.0) % MCV 81.8 (80.0-105.0) fl MCH 26.3 (25.0-35.0) pg MCHC 32.1 (31.0-37.0) g/dl RDW 16.5 H (11.5-14.5) % Plt Count 215 (120.0-450.0) 10^3/uL MPV 10.6 (7.0-11.0) fl Gran % 91.5 H (50.0-68.0) % Lymph % (Auto) 4.1 L (22.0-35.0) % Montgomery % (Auto) 4.4 (1.0-6.0) % Eos % (Auto) 0.0 L (1.5-5.0) % Baso % (Auto) 0.0 (0.0-3.0) % Gran # 19.38 H (1.4-6.5) Lymph # (Auto) 0.9 L (1.2-3.4) Montgomery # (Auto) 0.9 H (0.1-0.6) Eos # (Auto) 0.0 (0.0-0.7) Baso # (Auto) 0.01 (0.0-2.0) K/mm3 Neutrophils % (Manual) (50.0-70.0) % Band Neutrophils % (0-2) % Lymphocytes % (Manual) (22.0-35.0) % Monocytes % (Manual) (1.0-6.0) % Toxic Granulation Platelet Evaluation (NORMAL) Hypochromasia Rouleaux PT (9.4-12.5) SECONDS INR APTT (25.1-36.5) Seconds pO2 45 (30-55) mm/Hg VBG pH 7.44 H (7.32-7.43) VBG pCO2 42.0 (40-60) VBG HCO3 28.5 H (21-28) mmol/l VBG Total CO2 29.8 H (22-28) mmol.L VBG O2 Sat (Calc) 85.5 H (40-65) % VBG Base Excess 3.9 H (0.0-2.0) mmol/L VBG Potassium 3.5 L (3.6-5.2) mmol/L Sodium 137.0 138 (132-148) mmol/L Chloride 105.0 103 (98-107) mmol/L Glucose 234 H (65-105) mg/dl Lactate 1.6 (0.7-2.1) mmol/L FiO2 21.0 % Potassium 3.5 L (3.6-5.0) mmol/L Carbon Dioxide 28 (21-33) mmol/L Anion Gap 11 (10-20) BUN 22 H (7-21) mg/dL Creatinine 0.9 (0.7-1.2) mg/dl Est GFR ( Amer) > 60 Est GFR (Non-Af Amer) > 60 Random Glucose 221 H (70-110) mg/dL Calcium 8.1 L (8.4-10.5) mg/dL Phosphorus 3.0 (2.5-4.5) mg/dL Magnesium 1.9 (1.7-2.2) mg/dL Total Bilirubin 1.1 (0.2-1.3) mg/dL AST 24 (14-36) U/L ALT 32 (7-56) U/L Alkaline Phosphatase 157 H D (38-126) U/L Troponin I ng/mL NT-Pro-B Natriuret Pep (0-450) pg/mL Total Protein 5.3 L (5.8-8.3) g/dL Albumin 2.4 L (3.0-4.8) g/dL Globulin 2.9 gm/dL Albumin/Globulin Ratio 0.8 L (1.1-1.8) Venous Blood Potassium 3.5 L (3.6-5.2) mmol/L Influenza Typ A,B (EIA) (NEGATIVE) 06/01/18 06/01/18 06/01/18 Range/Units 19:08 16:34 15:19 WBC (4.5-11.0) 10^3/ul RBC (3.5-6.1) 10^6/uL Hgb (12.0-16.0) g/dL Hct (36.0-48.0) % MCV (80.0-105.0) fl MCH (25.0-35.0) pg MCHC (31.0-37.0) g/dl RDW (11.5-14.5) % Plt Count (120.0-450.0) 10^3/uL MPV (7.0-11.0) fl Gran % (50.0-68.0) % Lymph % (Auto) (22.0-35.0) % Montgomery % (Auto) (1.0-6.0) % Eos % (Auto) (1.5-5.0) % Baso % (Auto) (0.0-3.0) % Gran # (1.4-6.5) Lymph # (Auto) (1.2-3.4) Montgomery # (Auto) (0.1-0.6) Eos # (Auto) (0.0-0.7) Baso # (Auto) (0.0-2.0) K/mm3 Neutrophils % (Manual) (50.0-70.0) % Band Neutrophils % (0-2) % Lymphocytes % (Manual) (22.0-35.0) % Monocytes % (Manual) (1.0-6.0) % Toxic Granulation Platelet Evaluation (NORMAL) Hypochromasia Rouleaux PT (9.4-12.5) SECONDS INR APTT (25.1-36.5) Seconds pO2 43 (30-55) mm/Hg VBG pH 7.39 (7.32-7.43) VBG pCO2 50.0 (40-60) VBG HCO3 30.3 H (21-28) mmol/l VBG Total CO2 31.8 H (22-28) mmol.L VBG O2 Sat (Calc) 82.5 H (40-65) % VBG Base Excess 4.2 H (0.0-2.0) mmol/L VBG Potassium 3.6 (3.6-5.2) mmol/L Sodium 138.0 135 (132-148) mmol/L Chloride 104.0 103 (98-107) mmol/L Glucose 175 H (65-105) mg/dl Lactate 1.9 (0.7-2.1) mmol/L FiO2 21.0 % Potassium 4.3 (3.6-5.0) mmol/L Carbon Dioxide 26 (21-33) mmol/L Anion Gap 11 (10-20) BUN 24 H (7-21) mg/dL Creatinine 0.8 (0.7-1.2) mg/dl Est GFR ( Amer) > 60 Est GFR (Non-Af Amer) > 60 Random Glucose 175 H (70-110) mg/dL Calcium 7.9 L (8.4-10.5) mg/dL Phosphorus 2.7 (2.5-4.5) mg/dL Magnesium 1.9 (1.7-2.2) mg/dL Total Bilirubin 1.0 (0.2-1.3) mg/dL AST 20 (14-36) U/L ALT 16 (7-56) U/L Alkaline Phosphatase 113 (38-126) U/L Troponin I < 0.01 ng/mL NT-Pro-B Natriuret Pep 4420 H (0-450) pg/mL Total Protein 5.5 L (5.8-8.3) g/dL Albumin 2.4 L (3.0-4.8) g/dL Globulin 3.1 gm/dL Albumin/Globulin Ratio 0.8 L (1.1-1.8) Venous Blood Potassium 3.6 (3.6-5.2) mmol/L Influenza Typ A,B (EIA) Negative for flu a/b (NEGATIVE) 06/01/18 06/01/18 06/01/18 Range/Units 15:12 15:10 15:10 WBC 28.6 H* D (4.5-11.0) 10^3/ul RBC 4.10 (3.5-6.1) 10^6/uL Hgb 11.1 L (12.0-16.0) g/dL Hct 34.1 L (36.0-48.0) % MCV 83.2 (80.0-105.0) fl MCH 27.1 (25.0-35.0) pg MCHC 32.6 (31.0-37.0) g/dl RDW 16.9 H (11.5-14.5) % Plt Count 241 (120.0-450.0) 10^3/uL MPV 11.1 H (7.0-11.0) fl Gran % 90.5 H (50.0-68.0) % Lymph % (Auto) 4.4 L (22.0-35.0) % Montgomery % (Auto) 4.8 (1.0-6.0) % Eos % (Auto) 0.2 L (1.5-5.0) % Baso % (Auto) 0.1 (0.0-3.0) % Gran # 25.88 H (1.4-6.5) Lymph # (Auto) 1.3 (1.2-3.4) Montgomery # (Auto) 1.4 H (0.1-0.6) Eos # (Auto) 0.1 (0.0-0.7) Baso # (Auto) 0.03 (0.0-2.0) K/mm3 Neutrophils % (Manual) 91 H (50.0-70.0) % Band Neutrophils % 1 (0-2) % Lymphocytes % (Manual) 5 L (22.0-35.0) % Monocytes % (Manual) 3 (1.0-6.0) % Toxic Granulation 2+ Platelet Evaluation Normal (NORMAL) Hypochromasia 2+ Rouleaux 2+ PT 24.1 H (9.4-12.5) SECONDS INR 2.08 APTT 36.2 (25.1-36.5) Seconds pO2 71 H (30-55) mm/Hg VBG pH 7.42 (7.32-7.43) VBG pCO2 45.0 (40-60) VBG HCO3 29.2 H (21-28) mmol/l VBG Total CO2 30.6 H (22-28) mmol.L VBG O2 Sat (Calc) 96.6 H (40-65) % VBG Base Excess 4.0 H (0.0-2.0) mmol/L VBG Potassium 4.2 (3.6-5.2) mmol/L Sodium 136.0 (132-148) mmol/L Chloride 103.0 (98-107) mmol/L Glucose 181 H (65-105) mg/dl Lactate 2.7 H (0.7-2.1) mmol/L FiO2 21.0 % Potassium (3.6-5.0) mmol/L Carbon Dioxide (21-33) mmol/L Anion Gap (10-20) BUN (7-21) mg/dL Creatinine (0.7-1.2) mg/dl Est GFR ( Amer) Est GFR (Non-Af Amer) Random Glucose (70-110) mg/dL Calcium (8.4-10.5) mg/dL Phosphorus (2.5-4.5) mg/dL Magnesium (1.7-2.2) mg/dL Total Bilirubin (0.2-1.3) mg/dL AST (14-36) U/L ALT (7-56) U/L Alkaline Phosphatase (38-126) U/L Troponin I ng/mL NT-Pro-B Natriuret Pep (0-450) pg/mL Total Protein (5.8-8.3) g/dL Albumin (3.0-4.8) g/dL Globulin gm/dL Albumin/Globulin Ratio (1.1-1.8) Venous Blood Potassium 4.2 (3.6-5.2) mmol/L Influenza Typ A,B (EIA) (NEGATIVE) Laboratory Results - last 24 hr 06/01/18 06/01/18 06/01/18 15:10 15:10 15:12 WBC 28.6 H* D RBC 4.10 Hgb 11.1 L Hct 34.1 L MCV 83.2 MCH 27.1 MCHC 32.6 RDW 16.9 H Plt Count 241 MPV 11.1 H Gran % 90.5 H Lymph % (Auto) 4.4 L Montgomery % (Auto) 4.8 Eos % (Auto) 0.2 L Baso % (Auto) 0.1 Gran # 25.88 H Lymph # (Auto) 1.3 Montgomery # (Auto) 1.4 H Eos # (Auto) 0.1 Baso # (Auto) 0.03 Neutrophils % (Manual) 91 H Band Neutrophils % 1 Lymphocytes % (Manual) 5 L Monocytes % (Manual) 3 Toxic Granulation 2+ Platelet Evaluation Normal Hypochromasia 2+ Rouleaux 2+ PT 24.1 H INR 2.08 APTT 36.2 pO2 71 H VBG pH 7.42 VBG pCO2 45.0 VBG HCO3 29.2 H VBG Total CO2 30.6 H VBG O2 Sat (Calc) 96.6 H VBG Base Excess 4.0 H VBG Potassium 4.2 Sodium 136.0 Chloride 103.0 Glucose 181 H Lactate 2.7 H FiO2 21.0 Potassium Carbon Dioxide Anion Gap BUN Creatinine Est GFR ( Amer) Est GFR (Non-Af Amer) Random Glucose Calcium Phosphorus Magnesium Total Bilirubin AST ALT Alkaline Phosphatase Troponin I NT-Pro-B Natriuret Pep Total Protein Albumin Globulin Albumin/Globulin Ratio Venous Blood Potassium 4.2 Influenza Typ A,B (EIA) 06/01/18 06/01/18 06/01/18 15:19 16:34 19:08 WBC RBC Hgb Hct MCV MCH MCHC RDW Plt Count MPV Gran % Lymph % (Auto) Montgomery % (Auto) Eos % (Auto) Baso % (Auto) Gran # Lymph # (Auto) Montgomery # (Auto) Eos # (Auto) Baso # (Auto) Neutrophils % (Manual) Band Neutrophils % Lymphocytes % (Manual) Monocytes % (Manual) Toxic Granulation Platelet Evaluation Hypochromasia Rouleaux PT INR APTT pO2 43 VBG pH 7.39 VBG pCO2 50.0 VBG HCO3 30.3 H VBG Total CO2 31.8 H VBG O2 Sat (Calc) 82.5 H VBG Base Excess 4.2 H VBG Potassium 3.6 Sodium 135 138.0 Chloride 103 104.0 Glucose 175 H Lactate 1.9 FiO2 21.0 Potassium 4.3 Carbon Dioxide 26 Anion Gap 11 BUN 24 H Creatinine 0.8 Est GFR ( Amer) > 60 Est GFR (Non-Af Amer) > 60 Random Glucose 175 H Calcium 7.9 L Phosphorus 2.7 Magnesium 1.9 Total Bilirubin 1.0 AST 20 ALT 16 Alkaline Phosphatase 113 Troponin I < 0.01 NT-Pro-B Natriuret Pep 4420 H Total Protein 5.5 L Albumin 2.4 L Globulin 3.1 Albumin/Globulin Ratio 0.8 L Venous Blood Potassium 3.6 Influenza Typ A,B (EIA) Negative for flu a/b 06/02/18 06/02/18 06/02/18 05:20 05:20 05:20 WBC 21.2 H D RBC 3.73 Hgb 9.8 L Hct 30.5 L MCV 81.8 MCH 26.3 MCHC 32.1 RDW 16.5 H Plt Count 215 MPV 10.6 Gran % 91.5 H Lymph % (Auto) 4.1 L Montgomery % (Auto) 4.4 Eos % (Auto) 0.0 L Baso % (Auto) 0.0 Gran # 19.38 H Lymph # (Auto) 0.9 L Montgomery # (Auto) 0.9 H Eos # (Auto) 0.0 Baso # (Auto) 0.01 Neutrophils % (Manual) Band Neutrophils % Lymphocytes % (Manual) Monocytes % (Manual) Toxic Granulation Platelet Evaluation Hypochromasia Rouleaux PT INR APTT pO2 45 VBG pH 7.44 H VBG pCO2 42.0 VBG HCO3 28.5 H VBG Total CO2 29.8 H VBG O2 Sat (Calc) 85.5 H VBG Base Excess 3.9 H VBG Potassium 3.5 L Sodium 138 137.0 Chloride 103 105.0 Glucose 234 H Lactate 1.6 FiO2 21.0 Potassium 3.5 L Carbon Dioxide 28 Anion Gap 11 BUN 22 H Creatinine 0.9 Est GFR ( Amer) > 60 Est GFR (Non-Af Amer) > 60 Random Glucose 221 H Calcium 8.1 L Phosphorus 3.0 Magnesium 1.9 Total Bilirubin 1.1 AST 24 ALT 32 Alkaline Phosphatase 157 H D Troponin I NT-Pro-B Natriuret Pep Total Protein 5.3 L Albumin 2.4 L Globulin 2.9 Albumin/Globulin Ratio 0.8 L Venous Blood Potassium 3.5 L Influenza Typ A,B (EIA) EKG/Cardiology Studies: Cardiology / EKG Studies 06/01/18 14:41 ELECTROCARDIOGRAM Stat Comment: Reason For Exam: Sepsis Patient Fingerstick Blood Sugar Results: 224 Review of Systems - Constitutional Constitutional: absent: Fever, Chills, Sweats - EENT Eyes: absent: Blurred Vision Ears: absent: Decreased Hearing Nose/Mouth/Throat: Sore Throat - Cardiovascular Cardiovascular: absent: Chest Pain - Gastrointestinal Gastrointestinal: Heartburn. absent: Constipation, Diarrhea, Nausea, Vomiting - Genitourinary Genitourinary: absent: Dysuria, Hematuria - Musculoskeletal Musculoskeletal: absent: Arthralgias - Integumentary Additional comments: new skin abrasions - Neurological Neurological: Headaches. absent: Dizziness, Numbness, Tingling, Vertigo - Psychiatric Psychiatric: absent: Anxiety, Depression - Endocrine Additional Comments: loss of appetite Critical Care Progress Note - Ventilator Checklist Head of Bed 30 Degrees: Yes PUD Prophalyxis: Yes DVT Prophylaxis: Yes - Extremities/Vascular Does the Patient need a Central Venous Catheter?: Yes - Nutrition Nutrition: Nutrition Category Date Time Status Consistent Carbohydrate [DIET] Diets 06/01/18 Dinner Ordered Assessment/Plan - Assessment and Plan (Free Text) Assessment: 73 year old feale with past medical history of diastolic CHF, atrial fibrillation, COPD, diabetes mellitus type 2, severe bilateral lower extremity edema presents with hypotension with BP in 80s/40s and fever for 3 days likely 2/2 to sepsis from bilateral lower extremity wounds Plan: Neuro: -AAOx3, no FND, moving extremities past midline. -No symptoms of altered mental status or lethargy signifying end organ damage. -Monitor neuro status. -Reorient patient as necessary. Cardio: -Tachycardia at 110, irregular rhythm, normotensive with levophed, no signs of HD compromise -EKG: Atrial fibrillation with RVR, HR: 101, QRS: 90, QTc: 396 -Echo (03/2018): 56.7% LVEF, severe MR, severe TR, severe pulmonary hypertension -Coumadin 3 mg daily for atrial fibrillation. Today's INR was therapeutic at 2.08 -Patient give 5 L of NS for adequate fluid resuscitation for septic shock and is currently on levophed and stress dose steroids of solucortef 50 mg daily. Patient will be tapered off solucortef and levophed if blood pressure continues to stay normotensive. -Troponin<0.01. Patient does not currently have any signs of cardiac end organ damage, as there is no troponin leak. -BNP: 4420. Patient has likely diastolic heart failure due to preserved EF. -Maintain MAP>65. -Monitor for S/S, HD compromise. Pulm: -No signs of respiratory distress. CTA B/L -Patient is stating well on 2L NC -Maintain O2 saturation>90%. -O2 NC PRN -CXR: cardiomegaly, bilateral hilar prominence, emphysematous changed -No signs of fluid overload from 5L of NS given and no signs of end organ damage. -Elevate bed to 30 degrees GI: -Tolerating consistent carbohydrate diet well. -Protonix 40 mg BID /Nephro: -BUN/Cr stable at 22/0.9 consistent with shock as ratio is more than 20:1 -UA and UC ordered to evaluate for possible UTI. -Good urine output -Continue monitoring. -Potassium: 3.5. Potassium will be repleted with 20 mEq Kdur. -Replete electrolytes as needed. -No signs of renal end organ damage as creatinine is within normal limits and patient is urinating appropriately. -Maintain euvolemia. Endocrinology: -Random glucose: 221 -Patient likely hyperglycemic due to stress dose steroids. -Patient currently on medium sliding scale insulin. -Obtain and maintain euglycemia. Heme/Onc: -H/H decreased to 9.8/30.5 from Hgb of 11.1. -No signs of HD compromise. -Continue monitoring H/H ID: -Afebrile, leukocytosis improved to 21.2 from 28.6. -Follow up BCx, UCx, Procalcitonin, Legionella Urine Antigen, S. Pneumoniae Urine Antigen, M. Pneumonia Urine Antigen -Rapid Influenza test negative. -Lactate: improved to 1.6 from initial lactate of 2.7. -Patient currently on vancomycin 1.5 gm BID and merrem 500 mg Q8. -Patient's likely septic shock improved and possibly due to bilateral leg wounds left more than right. Patient's blood pressure has been improved and will wean patient off levophed and stress dose steroids. Continue with antibiotic regimen. -Monitor for signs and symptoms of infection. DVT prophylaxis: coumadin 3 mg daily GI prophylaxis: protonix 40 mg BID Patient seen and examined with Dr. Sosa. - Date & Time Date: 06/02/18 Time: 11:09 <Gigi Sosa - Last Filed: 06/02/18 11:44> CCU Objective - Vital Signs / Intake & Output Vital Signs (Last 4 hours): Vital Signs Pulse Resp BP Pulse Ox 06/02/18 08:40 82 18 99 06/02/18 08:30 89 18 94 L 06/02/18 08:20 84 17 98 06/02/18 08:10 93 H 98 06/02/18 08:00 95/51 L 06/02/18 07:59 91 H 19 98 06/02/18 07:50 86 25 H 97 Intake and Output (Last 8hrs): Intake & Output 06/01/18 06/02/18 06/02/18 22:59 06:59 14:59 Weight 604 lb Other: Voiding Method Diaper - Medications Active Medications: Active Medications Generic Name Dose Route Start Last Admin Trade Name Freq PRN Reason Stop Dose Admin Acetaminophen 650 mg 06/01/18 19:01 Tylenol 325mg Tab PO Q6H PRN Pain, moderate (4-7) Hydrocortisone Sodium Succinate 50 mg 06/02/18 10:00 06/02/18 09:31 Solu-Cortef IVP 50 mg DAILY RONI Administration NOREPINEPHRINE BIT/0.9 % NACL 4 mg in 250 mls @ 15 mls/hr 06/01/18 18:02 06/01/18 19:06 Levophed 4 Mg/ 250 Ml Ns Premixed IV 4 mcg/min .[id number] PRN 15 mls/hr TITRATE PER MD ORDER Administration Protocol 4 MCG/MIN Vancomycin HCl 1.5 gm/ Sodium 500 mls @ 167 mls/hr 06/02/18 06:00 06/02/18 06:33 Chloride IVPB 167 mls/hr Q12H RONI Administration Protocol Meropenem 1 gm in 50 mls @ 100 mls/hr 06/02/18 10:42 Merrem Iv 1 Gm Premix IVPB 06/11/18 10:43 Q8 RONI Protocol Insulin Human Regular 0 units 06/01/18 22:00 06/02/18 08:18 Humulin R Med SC 3 units ACHS RONI Administration Protocol Levothyroxine Sodium 25 mcg 06/02/18 10:00 06/02/18 09:32 Synthroid PO 25 mcg DAILY RONI Administration Ondansetron HCl 4 mg 06/01/18 19:01 Zofran Inj IVP Q6H PRN Nausea/Vomiting Pantoprazole Sodium 40 mg 06/02/18 10:00 06/02/18 09:32 Protonix Ec Tab PO 40 mg BID RONI Administration Silver Sulfadiazine 0 gm 06/02/18 10:00 06/02/18 09:35 Silvadene 1% 25 Gm TP 25 gm BID RONI Administration Warfarin Sodium 3 mg 06/02/18 18:00 Coumadin PO 1800 [facility] Protocol - Patient Studies Lab Studies: Lab Studies 06/02/18 06/02/18 06/02/18 Range/Units 05:20 05:20 05:20 WBC 21.2 H D (4.5-11.0) 10^3/ul RBC 3.73 (3.5-6.1) 10^6/uL Hgb 9.8 L (12.0-16.0) g/dL Hct 30.5 L (36.0-48.0) % MCV 81.8 (80.0-105.0) fl MCH 26.3 (25.0-35.0) pg MCHC 32.1 (31.0-37.0) g/dl RDW 16.5 H (11.5-14.5) % Plt Count 215 (120.0-450.0) 10^3/uL MPV 10.6 (7.0-11.0) fl Gran % 91.5 H (50.0-68.0) % Lymph % (Auto) 4.1 L (22.0-35.0) % [place] % (Auto) 4.4 (1.0-6.0) % Eos % (Auto) 0.0 L (1.5-5.0) % Baso % (Auto) 0.0 (0.0-3.0) % Gran # 19.38 H (1.4-6.5) Lymph # (Auto) 0.9 L (1.2-3.4) [place] # (Auto) 0.9 H (0.1-0.6) Eos # (Auto) 0.0 (0.0-0.7) Baso # (Auto) 0.01 (0.0-2.0) K/mm3 Neutrophils % (Manual) (50.0-70.0) % Band Neutrophils % (0-2) % Lymphocytes % (Manual) (22.0-35.0) % Monocytes % (Manual) (1.0-6.0) % Toxic Granulation Platelet Evaluation (NORMAL) Hypochromasia Rouleaux PT (9.4-12.5) SECONDS INR APTT (25.1-36.5) Seconds pO2 45 (30-55) mm/Hg VBG pH 7.44 H (7.32-7.43) VBG pCO2 42.0 (40-60) VBG HCO3 28.5 H (21-28) mmol/l VBG Total CO2 29.8 H (22-28) mmol.L VBG O2 Sat (Calc) 85.5 H (40-65) % VBG Base Excess 3.9 H (0.0-2.0) mmol/L VBG Potassium 3.5 L (3.6-5.2) mmol/L Sodium 137.0 138 (132-148) mmol/L Chloride 105.0 103 (98-107) mmol/L Glucose 234 H (65-105) mg/dl Lactate 1.6 (0.7-2.1) mmol/L FiO2 21.0 % Potassium 3.5 L (3.6-5.0) mmol/L Carbon Dioxide 28 (21-33) mmol/L Anion Gap 11 (10-20) BUN 22 H (7-21) mg/dL Creatinine 0.9 (0.7-1.2) mg/dl Est GFR ( Amer) > 60 Est GFR (Non-Af Amer) > 60 Random Glucose 221 H (70-110) mg/dL Calcium 8.1 L (8.4-10.5) mg/dL Phosphorus 3.0 (2.5-4.5) mg/dL Magnesium 1.9 (1.7-2.2) mg/dL Total Bilirubin 1.1 (0.2-1.3) mg/dL AST 24 (14-36) U/L ALT 32 (7-56) U/L Alkaline Phosphatase 157 H D (38-126) U/L Troponin I ng/mL NT-Pro-B Natriuret Pep (0-450) pg/mL Total Protein 5.3 L (5.8-8.3) g/dL Albumin 2.4 L (3.0-4.8) g/dL Globulin 2.9 gm/dL Albumin/Globulin Ratio 0.8 L (1.1-1.8) Venous Blood Potassium 3.5 L (3.6-5.2) mmol/L Influenza Typ A,B (EIA) (NEGATIVE) 06/01/18 06/01/18 06/01/18 Range/Units 19:08 16:34 15:19 WBC (4.5-11.0) 10^3/ul RBC (3.5-6.1) 10^6/uL Hgb (12.0-16.0) g/dL Hct (36.0-48.0) % MCV (80.0-105.0) fl MCH (25.0-35.0) pg MCHC (31.0-37.0) g/dl RDW (11.5-14.5) % Plt Count (120.0-450.0) 10^3/uL MPV (7.0-11.0) fl Gran % (50.0-68.0) % Lymph % (Auto) (22.0-35.0) % [place] % (Auto) (1.0-6.0) % Eos % (Auto) (1.5-5.0) % Baso % (Auto) (0.0-3.0) % Gran # (1.4-6.5) Lymph # (Auto) (1.2-3.4) Montgomery # (Auto) (0.1-0.6) Eos # (Auto) (0.0-0.7) Baso # (Auto) (0.0-2.0) K/mm3 Neutrophils % (Manual) (50.0-70.0) % Band Neutrophils % (0-2) % Lymphocytes % (Manual) (22.0-35.0) % Monocytes % (Manual) (1.0-6.0) % Toxic Granulation Platelet Evaluation (NORMAL) Hypochromasia Rouleaux PT (9.4-12.5) SECONDS INR APTT (25.1-36.5) Seconds pO2 43 (30-55) mm/Hg VBG pH 7.39 (7.32-7.43) VBG pCO2 50.0 (40-60) VBG HCO3 30.3 H (21-28) mmol/l VBG Total CO2 31.8 H (22-28) mmol.L VBG O2 Sat (Calc) 82.5 H (40-65) % VBG Base Excess 4.2 H (0.0-2.0) mmol/L VBG Potassium 3.6 (3.6-5.2) mmol/L Sodium 138.0 135 (132-148) mmol/L Chloride 104.0 103 (98-107) mmol/L Glucose 175 H (65-105) mg/dl Lactate 1.9 (0.7-2.1) mmol/L FiO2 21.0 % Potassium 4.3 (3.6-5.0) mmol/L Carbon Dioxide 26 (21-33) mmol/L Anion Gap 11 (10-20) BUN 24 H (7-21) mg/dL Creatinine 0.8 (0.7-1.2) mg/dl Est GFR ( Amer) > 60 Est GFR (Non-Af Amer) > 60 Random Glucose 175 H (70-110) mg/dL Calcium 7.9 L (8.4-10.5) mg/dL Phosphorus 2.7 (2.5-4.5) mg/dL Magnesium 1.9 (1.7-2.2) mg/dL Total Bilirubin 1.0 (0.2-1.3) mg/dL AST 20 (14-36) U/L ALT 16 (7-56) U/L Alkaline Phosphatase 113 (38-126) U/L Troponin I < 0.01 ng/mL NT-Pro-B Natriuret Pep 4420 H (0-450) pg/mL Total Protein 5.5 L (5.8-8.3) g/dL Albumin 2.4 L (3.0-4.8) g/dL Globulin 3.1 gm/dL Albumin/Globulin Ratio 0.8 L (1.1-1.8) Venous Blood Potassium 3.6 (3.6-5.2) mmol/L Influenza Typ A,B (EIA) Negative for flu a/b (NEGATIVE) 06/01/18 06/01/18 06/01/18 Range/Units 15:12 15:10 15:10 WBC 28.6 H* D (4.5-11.0) 10^3/ul RBC 4.10 (3.5-6.1) 10^6/uL Hgb 11.1 L (12.0-16.0) g/dL Hct 34.1 L (36.0-48.0) % MCV 83.2 (80.0-105.0) fl MCH 27.1 (25.0-35.0) pg MCHC 32.6 (31.0-37.0) g/dl RDW 16.9 H (11.5-14.5) % Plt Count 241 (120.0-450.0) 10^3/uL MPV 11.1 H (7.0-11.0) fl Gran % 90.5 H (50.0-68.0) % Lymph % (Auto) 4.4 L (22.0-35.0) % Montgomery % (Auto) 4.8 (1.0-6.0) % Eos % (Auto) 0.2 L (1.5-5.0) % Baso % (Auto) 0.1 (0.0-3.0) % Gran # 25.88 H (1.4-6.5) Lymph # (Auto) 1.3 (1.2-3.4) Montgomery # (Auto) 1.4 H (0.1-0.6) Eos # (Auto) 0.1 (0.0-0.7) Baso # (Auto) 0.03 (0.0-2.0) K/mm3 Neutrophils % (Manual) 91 H (50.0-70.0) % Band Neutrophils % 1 (0-2) % Lymphocytes % (Manual) 5 L (22.0-35.0) % Monocytes % (Manual) 3 (1.0-6.0) % Toxic Granulation 2+ Platelet Evaluation Normal (NORMAL) Hypochromasia 2+ Rouleaux 2+ PT 24.1 H (9.4-12.5) SECONDS INR 2.08 APTT 36.2 (25.1-36.5) Seconds pO2 71 H (30-55) mm/Hg VBG pH 7.42 (7.32-7.43) VBG pCO2 45.0 (40-60) VBG HCO3 29.2 H (21-28) mmol/l VBG Total CO2 30.6 H (22-28) mmol.L VBG O2 Sat (Calc) 96.6 H (40-65) % VBG Base Excess 4.0 H (0.0-2.0) mmol/L VBG Potassium 4.2 (3.6-5.2) mmol/L Sodium 136.0 (132-148) mmol/L Chloride 103.0 (98-107) mmol/L Glucose 181 H (65-105) mg/dl Lactate 2.7 H (0.7-2.1) mmol/L FiO2 21.0 % Potassium (3.6-5.0) mmol/L Carbon Dioxide (21-33) mmol/L Anion Gap (10-20) BUN (7-21) mg/dL Creatinine (0.7-1.2) mg/dl Est GFR ( Amer) Est GFR (Non-Af Amer) Random Glucose (70-110) mg/dL Calcium (8.4-10.5) mg/dL Phosphorus (2.5-4.5) mg/dL Magnesium (1.7-2.2) mg/dL Total Bilirubin (0.2-1.3) mg/dL AST (14-36) U/L ALT (7-56) U/L Alkaline Phosphatase (38-126) U/L Troponin I ng/mL NT-Pro-B Natriuret Pep (0-450) pg/mL Total Protein (5.8-8.3) g/dL Albumin (3.0-4.8) g/dL Globulin gm/dL Albumin/Globulin Ratio (1.1-1.8) Venous Blood Potassium 4.2 (3.6-5.2) mmol/L Influenza Typ A,B (EIA) (NEGATIVE) Laboratory Results - last 24 hr 06/01/18 06/01/18 06/01/18 15:10 15:10 15:12 WBC 28.6 H* D RBC 4.10 Hgb 11.1 L Hct 34.1 L MCV 83.2 MCH 27.1 MCHC 32.6 RDW 16.9 H Plt Count 241 MPV 11.1 H Gran % 90.5 H Lymph % (Auto) 4.4 L Montgomery % (Auto) 4.8 Eos % (Auto) 0.2 L Baso % (Auto) 0.1 Gran # 25.88 H Lymph # (Auto) 1.3 Montgomery # (Auto) 1.4 H Eos # (Auto) 0.1 Baso # (Auto) 0.03 Neutrophils % (Manual) 91 H Band Neutrophils % 1 Lymphocytes % (Manual) 5 L Monocytes % (Manual) 3 Toxic Granulation 2+ Platelet Evaluation Normal Hypochromasia 2+ Rouleaux 2+ PT 24.1 H INR 2.08 APTT 36.2 pO2 71 H VBG pH 7.42 VBG pCO2 45.0 VBG HCO3 29.2 H VBG Total CO2 30.6 H VBG O2 Sat (Calc) 96.6 H VBG Base Excess 4.0 H VBG Potassium 4.2 Sodium 136.0 Chloride 103.0 Glucose 181 H Lactate 2.7 H FiO2 21.0 Potassium Carbon Dioxide Anion Gap BUN Creatinine Est GFR ( Amer) Est GFR (Non-Af Amer) Random Glucose Calcium Phosphorus Magnesium Total Bilirubin AST ALT Alkaline Phosphatase Troponin I NT-Pro-B Natriuret Pep Total Protein Albumin Globulin Albumin/Globulin Ratio Venous Blood Potassium 4.2 Influenza Typ A,B (EIA) 06/01/18 06/01/18 06/01/18 15:19 16:34 19:08 WBC RBC Hgb Hct MCV MCH MCHC RDW Plt Count MPV Gran % Lymph % (Auto) Montgomery % (Auto) Eos % (Auto) Baso % (Auto) Gran # Lymph # (Auto) Montgomery # (Auto) Eos # (Auto) Baso # (Auto) Neutrophils % (Manual) Band Neutrophils % Lymphocytes % (Manual) Monocytes % (Manual) Toxic Granulation Platelet Evaluation Hypochromasia Rouleaux PT INR APTT pO2 43 VBG pH 7.39 VBG pCO2 50.0 VBG HCO3 30.3 H VBG Total CO2 31.8 H VBG O2 Sat (Calc) 82.5 H VBG Base Excess 4.2 H VBG Potassium 3.6 Sodium 135 138.0 Chloride 103 104.0 Glucose 175 H Lactate 1.9 FiO2 21.0 Potassium 4.3 Carbon Dioxide 26 Anion Gap 11 BUN 24 H Creatinine 0.8 Est GFR ( Amer) > 60 Est GFR (Non-Af Amer) > 60 Random Glucose 175 H Calcium 7.9 L Phosphorus 2.7 Magnesium 1.9 Total Bilirubin 1.0 AST 20 ALT 16 Alkaline Phosphatase 113 Troponin I < 0.01 NT-Pro-B Natriuret Pep 4420 H Total Protein 5.5 L Albumin 2.4 L Globulin 3.1 Albumin/Globulin Ratio 0.8 L Venous Blood Potassium 3.6 Influenza Typ A,B (EIA) Negative for flu a/b 06/02/18 06/02/1818 05:20 05:20 05:20 WBC 21.2 H D RBC 3.73 Hgb 9.8 L Hct 30.5 L MCV 81.8 MCH 26.3 MCHC 32.1 RDW 16.5 H Plt Count 215 MPV 10.6 Gran % 91.5 H Lymph % (Auto) 4.1 L Montgomery % (Auto) 4.4 Eos % (Auto) 0.0 L Baso % (Auto) 0.0 Gran # 19.38 H Lymph # (Auto) 0.9 L Montgomery # (Auto) 0.9 H Eos # (Auto) 0.0 Baso # (Auto) 0.01 Neutrophils % (Manual) Band Neutrophils % Lymphocytes % (Manual) Monocytes % (Manual) Toxic Granulation Platelet Evaluation Hypochromasia Rouleaux PT INR APTT pO2 45 VBG pH 7.44 H VBG pCO2 42.0 VBG HCO3 28.5 H VBG Total CO2 29.8 H VBG O2 Sat (Calc) 85.5 H VBG Base Excess 3.9 H VBG Potassium 3.5 L Sodium 138 137.0 Chloride 103 105.0 Glucose 234 H Lactate 1.6 FiO2 21.0 Potassium 3.5 L Carbon Dioxide 28 Anion Gap 11 BUN 22 H Creatinine 0.9 Est GFR ( Amer) > 60 Est GFR (Non-Af Amer) > 60 Random Glucose 221 H Calcium 8.1 L Phosphorus 3.0 Magnesium 1.9 Total Bilirubin 1.1 AST 24 ALT 32 Alkaline Phosphatase 157 H D Troponin I NT-Pro-B Natriuret Pep Total Protein 5.3 L Albumin 2.4 L Globulin 2.9 Albumin/Globulin Ratio 0.8 L Venous Blood Potassium 3.5 L Influenza Typ A,B (EIA) EKG/Cardiology Studies: Cardiology / EKG Studies 06/01/18 14:41 ELECTROCARDIOGRAM Stat Comment: Reason For Exam: Sepsis Patient Critical Care Progress Note - Nutrition Nutrition: Nutrition Category Date Time Status Consistent Carbohydrate [DIET] Diets 06/01/18 Dinner Ordered Attending/Attestation - Attestation I have personally seen and examined this patient.: Yes I have fully participated in the care of the patient.: Yes I have reviewed all pertinent clinical information: Yes Notes (Text): 06/02/18 11:[address] Sosa note
[2018-06-02] MEDS ORDERED: Potassium Chloride 20 mEq ER Tab PO ONE (11:39)
[2018-06-02] MEDS: Meropenem IV 1 gm in NS 1 GM/50 ML BAG IVPB SCH ×3 (12:41→21:40)
--- NOTE | 2018-06-02 14:10 | PN ---
DATE: 06/02/2018 SUBJECTIVE: She is in the intensive care unit. She is on IV antibiotics. She is alert and comfortable. She has a central line in place. She is on warfarin, potassium replacement, Merrem IV, norepinephrine, pantoprazole, Silvadene cream. She is on multiple IV fluid blouses, Solu-Cortef, Synthroid, vancomycin IV, Zofran and Zosyn that was just discontinued. PHYSICAL EXAMINATION: VITAL SIGNS: She has a temp 98.3, pulse 82, blood pressure 95/51, respiratory rate 18, 99% sat on oxygen. HEENT: Head is atraumatic, normocephalic. HEART: Regular rate. LUNGS: Decreased breath sounds, but clear. ABDOMEN: Morbidly obese. EXTREMITIES: Moderately swollen, 10/10. She needs a accounting director for the foot and I think she is doing better breathing-moura. LABORATORY DATA: She has a sodium 138, potassium 3.5, we will replace potassium, BUN 22, creatinine 0.9, GFR is greater than 60, sugar is 221, calcium is 8.1, phosphorous 3, magnesium 1.9, total bili is 1.1, AST is 24, ALT is 32, alk phos 157, BNP was high at 4420, total protein is 5.3. I discussed this with the substance abuse technician, who is diuresing her soon. She has a 21.2 white count, down from 28, improving with IV antibiotics, hemoglobin 9.8, hematocrit 30.5 with platelets of 215. INR is 2.08. We will check her labs tomorrow, replace potassium, continue IV antibiotics. She has multiple issues, severe sepsis, CHF, COPD, morbidly obese, skin ulcers. Alan Mann DO
--- NOTE | 2018-06-02 16:09 | CON ---
DATE OF CONSULTATION: 06/02/2018 The patient is seen this morning in the ICU. CHIEF COMPLAINT: Fever at home of 101 x3 days. HISTORY OF PRESENT ILLNESS: This is a 73-year-old female with super morbid obesity, BMI of 81, with coronary artery disease, congestive heart failure, diabetes, atrial fibrillation, chronic lymphedema, chronic obstructive lung disease, on home O2 therapy, who was admitted. The patient was having a temperature of 101.7 at home. She has been having shortness of breath, has had weakness and mild cough and abdominal discomfort, and complaining of fevers and chills and sore throat, and the patient was started on Levaquin without any improvement. REVIEW OF SYSTEMS: A 12-point review systems is performed. PAST MEDICAL HISTORY: Significant chronic obstructive lung disease, O2 therapy, chronic lymphedema, congestive heart failure, coronary artery disease, myocardial infarction, diabetes mellitus. PAST SURGICAL HISTORY: Significant for cardiac catheterization in 2005 and a PICC line placement. ALLERGIES: THE PATIENT HAS NO KNOWN ALLERGIES. PHYSICAL EXAMINATION: Temperature of 98, heart rate of 105, blood pressure was 78/45, respiratory rate of 20. Examination of HEENT is unremarkable. Neck is supple. Lungs have decreased breath sounds. Heart exam, normal S1, S2. Abdominal examination is soft, nontender. On examination of the lower extremities, there is very mild erythema, some discharge and it is very difficult to examine the patient fully because of her extremely large size and legs, unable to move the legs entirely. LABORATORY EXAMINATION: Reveals the patient has a white count of 28,600, hemoglobin of 11, platelets of 241, 90% granulocytosis. Coagulation is noted. BUN of 24, creatinine of 0.8, glucose is 175. The BNP is 4420. Influenza type A is negative. Microbiology cultures are reviewed. The patient's blood cultures in 2011 did grow group B strep. The patient had a chest x-ray, which is negative, and history of ESBL E. coli. ASSESSMENT/PLAN: This is a 73-year-old female with super morbid obesity, BMI of 81, coronary artery disease, myocardial infarction, diabetes mellitus, congestive heart failure, atrial fibrillation, chronic lymphedema, chronic obstructive lung disease with home O2 therapy with severe sepsis, bilateral lower extremity cellulitis, must rule out GI pathology versus healthcare-associated pneumonia. We will treat the patient with vancomycin, meropenem, pending panculture results. Procalcitonin and urine for Legionella antigen has been ordered. Long-term prognosis is quite poor for this extremely large female. Santy Fernandez MD
--- NOTE | 2018-06-02 20:29 | CON ---
DATE OF CONSULTATION: 06/02/2018 REASON FOR CONSULTATION: Atrial fibrillation. HISTORY OF PRESENT ILLNESS: The patient is a 73-year-old morbidly obese female who has a history of chronic atrial fibrillation, history of diastolic heart failure, history of chronic obstructive lung disease with right-sided heart failure with multiple admissions for exacerbation of heart failure. The patient presented this time because of fever, right shoulder and then left shoulder chest discomfort. The patient did report some inguinal sore, but is unaware of any history of pressure sores. SOCIAL HISTORY: Nonsmoker. She lives with her and has a special bed at home. MEDICATIONS: Coumadin 3 mg daily, Levophed infusion at 5 mcg per minute, meropenem 1 g intravenously every 8 hours, Protonix 40 mg intravenously twice a day, Solu-Cortef 50 mg intravenously, Synthroid 25 mcg once a day, vancomycin 1.5 g intravenously every 12 hours. REVIEW OF SYSTEMS: No nausea or vomiting. No dizziness or syncope. PHYSICAL EXAMINATION: The patient is an elderly female who does not appear to be in acute distress. VITAL SIGNS: Blood pressure 95/51 with a heart rate of 93 and today's temperature 98.3. HEENT: Normocephalic. CHEST: Diminished breath sounds over the bases. HEART: S1 and S2 regular. ABDOMEN: Soft. EXTREMITIES: No lung edema, but there is 3-4+ leg edema. LABORATORY DATA: White count on admission 28.6, hemoglobin and hematocrit 11.1 and 34.1, platelet count 241,000. Today's hemoglobin and hematocrit 9.8 and 30.5. INR is 2.08. SMA-7: Sodium 138, potassium 3.5, chloride 103, CO2 of 28, glucose 221, BUN 22, creatinine 0.9. One set of troponin is negative. ProBNP is 4420. EKG revealed atrial fibrillation with ventricular response at rate of 11, minimal voltage criteria for LVH, inferior infarct age indeterminate. The most recent echo was on 04/13/2018 and it revealed normal left ventricular wall thickness and systolic function with severe mitral insufficiency and severe pulmonary retention. Chest x-ray revealed satisfactory position of venous catheter in the left IJ. ASSESSMENT: 1. Chronic atrial fibrillation. 2. Morbid obesity. 3. Severe mitral insufficiency. 4. Severe pulmonary hypertension and right-sided failure. 5. Rule out deep venous thrombosis. 6. Rule out underlying sepsis. RECOMMENDATIONS: Continue current Coumadin 3 mg once a day. Continue Levophed infusion. Continue IV meropenem and IV vancomycin. Obtain venous Doppler of lower extremities, two sets of blood cultures, urine culture and an echocardiograph study after evaluation, due to the reported groin infection that the patient mentioned, to rule out the fact that it may be the primary source for the patient's current sepsis. João Segundo MD
--- NOTE | 2018-06-03 03:56 | CON ---
DATE: 06/02/2018 HISTORY OF PRESENT ILLNESS: The patient was seen and examined at bedside. She is well known to our service from previous admissions. Her admission this time is prompted by fever, sore throat, headache. Denied productive cough. There were no wheezing on initial presentation. PAST MEDICAL HISTORY: Her past medical history is contained in our previous consultation. She is morbidly obese with peripheral vascular disease, chronic severe edema of the longer extremities with skin breakdowns which is probably serving now as a source of entry for infection. She has a history of chronic obstructive pulmonary disease, pneumonia, sepsis, diabetes. SOCIAL HISTORY: Never smoke. No alcohol. No drugs. FAMILY HISTORY: There is diabetes and hypertension in the family. ALLERGIES: NO KNOWN ALLERGIES. MEDICATIONS AT HOME: Reviewed as per MAR. REVIEW OF SYSTEMS: GENERAL: Positive for fatigue and fever up to 102. The influenza A and B testing is negative. ENT: There is sore throat. PULMONARY: Positive for cough and shortness of breath. CARDIOVASCULAR: Negative for chest pain, negative palpitations. : Positive for urinary incontinence. GI: Negative. The rest of the systems were reviewed and found to be negative. PHYSICAL EXAMINATION: VITAL SIGNS: Her temperature currently is 98.5, pulse 100, respirations 20, blood pressure is 100/60. HEAD: Normocephalic and atraumatic. NECK: Supple with no jugular vein distentions. CARDIOVASCULAR: Irregular rhythm. PULMONARY: Diminished breath sounds at both bases. No wheezing. GI: Soft, morbidly obese, nontender. Positive bowel sounds. EXTREMITIES: Severe pitting edema, both lower extremities with skin breakdowns. NEUROLOGIC: No focal deficits. LABORATORY DATA: She is negative for influenza, sodium 135, potassium 4.3, creatinine 0.4. Liver function tests are normal. BNP elevated at 4400 and troponins are negative. ASSESSMENT: The patient admitted to Intensive Care Unit with diagnosis of severe sepsis and COPD exacerbation. Her temperature was high and blood pressure low on admission. However, she is currently not in septic shock. Her condition has improved somewhat. I reviewed her chest x-ray which does not reveal any focal infiltrates, so I do not see any evidence of pneumonia. Agree with choice of antibiotics as per Infectious Disease. We will follow closely and discuss pulmonary medications. Valerio Pritchett MD [facility] # [id number] ANUP
[2018-06-03] MEDS: Meropenem IV 1 gm in NS 1 GM/50 ML BAG IVPB SCH ×3 (05:06→22:47)
[2018-06-03] MEDS: Vancomycin 1.5 GM in Sodium Chloride 0.9% 500 ML IVPB SCH ×2 (05:08→17:58)
[2018-06-03 06:23] LABS: INR 2.76; PROTHROMBIN TIME 32.4 SECONDS (9.4-12.5)
[2018-06-03 06:30] LABS: BASO # 0.01 K/mm3 (0.0-2.0); BASO % 0.1 % (0.0-3.0); EOS % 0.1 % (1.5-5.0); GRAN # 14.26 (1.4-6.5); GRAN % 85.8 % (50.0-68.0); HEMOGLOBIN 9.3 g/dL (12.0-16.0); LYMPH # 0.9 (1.2-3.4); LYMPH % 5.5 % (22.0-35.0); MEAN CELL VOLUME 81.4 fl (80.0-105.0); MEAN CORPUSCULAR HEMOGLOBIN 25.8 pg (25.0-35.0); MEAN CORPUSCULAR HGB CONC 31.6 g/dl (31.0-37.0); MEAN PLATELET VOLUME 10.6 fl (7.0-11.0); MONO # 1.4 (0.1-0.6); MONO % 8.5 % (1.0-6.0); RBC 3.61 10^6/uL (3.5-6.1); RED CELL DISTRIBUTION WIDTH 16.4 % (11.5-14.5); WHITE BLOOD COUNT 16.6 10^3/ul (4.5-11.0)
[2018-06-03 06:31] LABS: ALB/GLOB RATIO 0.8 (1.1-1.8); ALBUMIN 2.4 g/dL (3.0-4.8); ALT/SGPT 27 U/L (7-56); AST/SGOT 16 U/L (14-36); BLOOD UREA NITROGEN 20 mg/dL (7-21); CALCIUM 8.3 mg/dL (8.4-10.5); GFR NON-AFRICAN AMERICAN > 60
[2018-06-03] MEDS ORDERED: Potassium Chloride 40 mEq/30 ml LIQ UD PO ONE (07:26)
--- NOTE | 2018-06-03 07:35 | CP.PCM.PN ---
Subjective - Date & Time of Evaluation Date of Evaluation: 06/03/18 Time of Evaluation: 07:15 - Subjective Subjective: General Surgery progress note for Dr. Castillo Patient seen and examined this am at bedside. Patient is resting comfortably but c/o chills overnight. She states that the silvidene was brought yesterday but was only one tube and that she will likely need many more. She otherwise denies WINTERS, CP, SOB, abdominal pain, nausea, vomiting, fevers and extremity pain. Objective - Vital Signs/Intake and Output Vital Signs (last 24 hours): Temp Pulse Resp BP Pulse Ox 97.9 F 97 H 24 91/34 L 100 06/02/18 17:42 06/02/18 22:00 06/02/18 22:00 06/02/18 22:00 06/02/18 22:00 - Medications Medications: Current Medications Acetaminophen (Tylenol 325mg Tab) 650 mg PO Q6H PRN PRN Reason: Pain, moderate (4-7) Hydrocortisone Sodium Succinate (Solu-Cortef) 50 mg IVP DAILY [facility] Last Admin: 06/02/18 09:31 Dose: 50 mg NOREPINEPHRINE BIT/0.9 % NACL (Levophed 4 Mg/ 250 Ml Ns Premixed) 4 mg in 250 mls @ 15 mls/hr IV .[id number] PRN; Protocol PRN Reason: TITRATE PER MD ORDER Last Admin: 06/01/18 19:06 Dose: 4 mcg/min, 15 mls/hr Vancomycin HCl 1.5 gm/ Sodium (Chloride) 500 mls @ 167 mls/hr IVPB Q12H RONI; Protocol Last Admin: 06/03/18 05:08 Dose: 167 mls/hr Meropenem (Merrem Iv 1 Gm Premix) 1 gm in 50 mls @ 100 mls/hr IVPB Q8 RONI; Protocol Stop: 06/11/18 10:43 Last Admin: 06/03/18 05:06 Dose: 100 mls/hr Insulin Human Regular (Humulin R Med) 0 units SC ACHS RONI; Protocol Last Admin: 06/02/18 21:39 Dose: Not Given Levothyroxine Sodium (Synthroid) 25 mcg PO DAILY RONI Last Admin: 06/02/18 09:32 Dose: 25 mcg Ondansetron HCl (Zofran Inj) 4 mg IVP Q6H PRN PRN Reason: Nausea/Vomiting Pantoprazole Sodium (Protonix Ec Tab) 40 mg PO BID RONI Last Admin: 06/02/18 17:47 Dose: 40 mg Potassium Chloride (Potassium Chloride Oral Soln) 70 meq PO ONCE ONE Stop: 06/03/18 07:27 Silver Sulfadiazine (Silvadene 1%) 0 ea TOP BID RONI Warfarin Sodium (Coumadin) 3 mg PO 1800 RONI; Protocol Last Admin: 06/02/18 17:47 Dose: 3 mg - Labs Labs: 06/03/18 06:00 06/03/18 06:00 PT 32.4 SECONDS (9.4-12.5) H 06/03/18 06:00 INR 2.76 06/03/18 06:00 APTT 36.2 Seconds (25.1-36.5) 06/01/18 15:10 - Constitutional Appears: Well, Non-toxic, No Acute Distress - Head Exam Head Exam: ATRAUMATIC, NORMOCEPHALIC - Eye Exam Eye Exam: EOMI Pupil Exam: PERRL - ENT Exam ENT Exam: Mucous Membranes Moist - Respiratory Exam Respiratory Exam: NORMAL BREATHING PATTERN - Cardiovascular Exam Cardiovascular Exam: REGULAR RHYTHM - GI/Abdominal Exam GI & Abdominal Exam: Soft. absent: Distended, Guarding, Tenderness - Extremities Exam Extremities Exam: absent: Calf Tenderness - Neurological Exam Neurological Exam: Alert, Oriented x3 - Psychiatric Exam Psychiatric exam: Normal Affect, Normal Mood - Skin Skin Exam: Dry, Normal Color, Warm Additional comments: numerous stage 1 ulcers of various sizes over the pannus/ thighs Assessment and Plan - Assessment and Plan (Free Text) Assessment: 73 yr old female with b/l lymphedema and thigh wounds Plan: -Recommend repositioning Q2H -Air mattress -Apply silvadene to affected areas as well as xeroform -Medical management per ICU team -Further recs per Dr. Jonathan Colmenares, PGY 1
[2018-06-03] MEDS: Insulin Reg-MEDIUM-Coverage SC SCH ×4 (08:08→22:00)
[2018-06-03] MEDS: Albuterol-Ipratrop 3 mg / 0.5 (3 ml) UD IH SCH ×3 (08:53→20:35)
[2018-06-03] MEDS: Pantoprazole 40 mg EC Tab PO SCH ×2 (09:33→17:18)
[2018-06-03] MEDS: Levothyroxine 25 MCG TAB PO SCH (09:37)
[2018-06-03] MEDS: Silver Sulfadiazine 1% Cream (400 gm) TOP SCH ×2 (09:38→17:18)
--- NOTE | 2018-06-03 10:17 | CP.CCUPN ---
<Rhonda Meyer - Last Filed: 06/03/18 13:00> CCU Subjective - Physician Review Subjective (Free Text): Rhonda Meyer, PGY-1, CCU Progress Note for Dr. Sosa Patient seen and examined at bedside. Today, patient complains of sore throat, headache, loss of appetite, heartburn, and mild tremor. Patient today denies prior productive cough, shortness of breath fever, and dizziness. Patient also denies chest pain, heart palpitations, wheezing, nausea, vomiting, constipation, diarrhea, dysuria, hematuria, numbness/tingling. 12-point ROS was negative except for what was mentioned above. CCU Objective - Vital Signs / Intake & Output Vital Signs (Last 4 hours): Vital Signs Temp Pulse Resp BP Pulse Ox 06/03/18 08:52 98 H 28 H 06/03/18 08:51 106 H 40 H 06/03/18 08:50 105 H 27 H 06/03/18 08:49 99 H 34 H 06/03/18 08:48 99 H 32 H 06/03/18 08:47 107 H 32 H 06/03/18 08:46 96 H 28 H 06/03/18 08:45 113 H 45 H 06/03/18 08:44 103 H 06/03/18 08:43 105 H 06/03/18 08:42 105 H 43 H 06/03/18 08:41 91 H 33 H 06/03/18 08:40 91 H 21 06/03/18 08:39 93 H 29 H 06/03/18 08:38 103 H 06/03/18 08:32 99 H 44 H 06/03/18 08:31 100 H 29 H 06/03/18 08:30 100 H 52 H 06/03/18 08:29 106 H 31 H 06/03/18 08:28 101 H 37 H 06/03/18 08:27 99 H 25 H 06/03/18 08:26 103 H 18 06/03/18 08:25 94 H 25 H 06/03/18 08:24 88 15 06/03/18 08:23 106 H 06/03/18 08:22 97 H 18 06/03/18 08:21 87 14 06/03/18 08:20 98 H 25 H 10/21/18 08:19 91 H 06/03/18 08:18 95 H 21 06/03/18 08:17 93 H 12 06/03/18 08:16 101 H 21 06/03/18 08:15 108 H 56 H 06/03/18 08:14 106 H 65 H 06/03/18 08:13 93 H 25 H 06/03/18 08:12 93 H 21 06/03/18 08:11 102 H 22 06/03/18 08:10 91/43 L 06/03/18 08:09 96 H 30 H 06/03/18 08:08 116 H 13 06/03/18 08:07 95 H 37 H 06/03/18 08:06 101 H 46 H 06/03/18 08:05 93 H 34 H 06/03/18 08:04 97 H 46 H 06/03/18 08:03 110 H 18 06/03/18 08:02 101 H 21 06/03/18 08:01 88/48 L 06/03/18 08:00 88 16 06/03/18 07:59 81 34 H 06/03/18 07:58 82 22 06/03/18 07:55 89 28 H 06/03/18 07:54 87 28 H 06/03/18 07:53 96 H 06/03/18 07:52 92 H 19 06/03/18 07:51 85 18 06/03/18 07:50 91 H 20 06/03/18 07:49 85 16 06/03/18 07:48 83 16 06/03/18 07:47 86 19 06/03/18 07:46 85 15 06/03/18 07:45 85 18 06/03/18 07:44 92 H 27 H 06/03/18 07:43 94 H 41 H 06/03/18 07:42 98 H 24 06/03/18 07:41 91 H 18 06/03/18 07:40 93 H 18 06/03/18 07:39 114/48 L 06/03/18 07:38 93 H 15 06/03/18 07:37 95 H 21 06/03/18 07:36 99 H 17 06/03/18 07:35 93 H 20 06/03/18 07:34 80 18 06/03/18 07:33 107 H 22 06/03/18 07:32 85 12 06/03/18 07:31 103 H 22 06/03/18 07:30 95 H 16 06/03/18 07:20 92 H 24 67 L 06/03/18 07:10 84 17 88 L 06/03/18 07:00 91 H 84/49 L 06/03/18 06:59 88 06/03/18 06:58 83 29 H 06/03/18 06:57 97 H 32 H 06/03/18 06:56 85 42 H 06/03/18 06:55 96 H 06/03/18 06:54 85 39 H 06/03/18 06:53 93 H 30 H 06/03/18 06:52 85 23 06/03/18 06:51 93 H 44 H 06/03/18 06:50 96 H 19 06/03/18 06:49 102 H 20 06/03/18 06:48 87 23 06/03/18 06:47 90 27 H 06/03/18 06:46 93 H 55 H 06/03/18 06:45 84 23 06/03/18 06:44 87 19 06/03/18 06:43 91 H 118 H 06/03/18 06:42 87 25 H 06/03/18 06:41 84 16 06/03/18 06:40 95 H 25 H 06/03/18 06:39 108 H 18 06/03/18 06:38 83 18 06/03/18 06:37 94 H 19 06/03/18 06:36 86 18 06/03/18 06:35 88 20 06/03/18 06:34 88 16 06/03/18 06:00 97.4 F L 84 Intake and Output (Last 8hrs): Intake & Output 06/02/18 06/03/18 06/03/18 22:59 06:59 14:59 Intake Total 440 700 Output Total 400 400 Balance 40 300 Intake: IV 200 450 Left Antecubital 200 abx 450 Oral 240 250 Output: Urine 400 400 Urine, Voided 400 400 Other: # Bowel Movements 0 - Physical Exam Head: Positive for: Atraumatic, Normocephalic Pupils: Positive for: PERRL Extroacular Muscles: Positive for: EOMI Conjunctiva: Positive for: Normal Mouth: Positive for: Dry Pharnyx: Positive for: Normal. Negative for: ERYTHEMA, EXUDATE, TONSILS ENLARGED Nose (External): Positive for: Atraumatic Nose (Internal): Positive for: No Active Bleeding Neck: Positive for: Normal Range of Motion. Negative for: Meningeal Signs, MIDLINE TENDERNESS, Lymphadenopathy Respiratory/Chest: Positive for: Good Air Exchange, Wheezes (mild, diffuse). Negative for: Respiratory Distress, Accessory Muscle Use, Rales, Rhonchi Cardiovascular: Positive for: Irregular Rhythm (known hx of afib), Tachycardic. Negative for: Murmurs Abdomen: Negative for: Tenderness, Distention, Peritoneal Signs, Rebound, Guarding Back: Positive for: Normal Inspection Upper Extremity: Positive for: Normal Inspection, NORMAL PULSES. Negative for: Cyanosis, Edema Lower Extremity: Positive for: Edema (pitting edema (chronic)), Other (Extremely large thighs with multiple chronic wounds on posterior and lateral aspects b/l at multiple stages of healing. No acute signs of infections seen.). Negative for: NORMAL PULSES, Tenderness Neurological: Positive for: GCS=15, CN II-XII Intact, Speech Normal Skin: Positive for: Warm, Dry, Normal Color. Negative for: Rashes Psychiatric: Positive for: Alert, Oriented x 3, Normal Insight, Normal Concentration - Medications Active Medications: Active Medications Generic Name Dose Route Start Last Admin Trade Name Freq PRN Reason Stop Dose Admin Acetaminophen 650 mg 06/01/18 19:01 Tylenol 325mg Tab PO Q6H PRN Pain, moderate (4-7) Albuterol/Ipratropium 3 ml 06/03/18 14:00 06/03/18 08:53 Duoneb 3 Mg/0.5 Mg (3 Ml) Ud IH 3 ml [id number] RONI Administration Hydrocortisone Sodium Succinate 50 mg 06/02/18 10:00 06/03/18 09:33 Solu-Cortef IVP 50 mg DAILY RONI Administration NOREPINEPHRINE BIT/0.9 % NACL 4 mg in 250 mls @ 15 mls/hr 06/01/18 18:02 06/01/18 19:06 Levophed 4 Mg/ 250 Ml Ns Premixed IV 4 mcg/min .[id number] PRN 15 mls/hr TITRATE PER MD ORDER Administration Protocol 4 MCG/MIN Vancomycin HCl 1.5 gm/ Sodium 500 mls @ 167 mls/hr 06/02/18 06:00 06/03/18 05:08 Chloride IVPB 167 mls/hr Q12H RONI Administration Protocol Meropenem 1 gm in 50 mls @ 100 mls/hr 06/02/18 10:42 06/03/18 05:06 Merrem Iv 1 Gm Premix IVPB 06/11/18 10:43 100 mls/hr Q8 RONI Administration Protocol Insulin Human Regular 0 units 06/01/18 22:00 06/03/18 08:08 Humulin R Med SC 1 units ACHS RONI Administration Protocol Levothyroxine Sodium 25 mcg 06/02/18 10:00 06/03/18 09:37 Synthroid PO 25 mcg DAILY RONI Administration Ondansetron HCl 4 mg 06/01/18 19:01 Zofran Inj IVP Q6H PRN Nausea/Vomiting Pantoprazole Sodium 40 mg 06/02/18 10:00 06/03/18 09:33 Protonix Ec Tab PO 40 mg BID RONI Administration Silver Sulfadiazine 0 ea 06/03/18 07:28 06/03/18 09:38 Silvadene 1% TOP 1 g BID RONI Administration Warfarin Sodium 3 mg 06/02/18 18:00 06/02/18 17:47 Coumadin PO 3 mg 1800 RONI Administration Protocol - Patient Studies Lab Studies: Microbiology Studies 06/01/18 15:40 Blood Culture - Preliminary Blood NO GROWTH AFTER 24 HOURS 06/01/18 15:10 Blood Culture - Preliminary Blood NO GROWTH AFTER 24 HOURS Lab Studies 06/03/18 06/03/18 06/03/18 Range/Units 06:00 06:00 06:00 WBC 16.6 H D (4.5-11.0) 10^3/ul RBC 3.61 (3.5-6.1) 10^6/uL Hgb 9.3 L (12.0-16.0) g/dL Hct 29.4 L (36.0-48.0) % MCV 81.4 (80.0-105.0) fl MCH 25.8 (25.0-35.0) pg MCHC 31.6 (31.0-37.0) g/dl RDW 16.4 H (11.5-14.5) % Plt Count 202 (120.0-450.0) 10^3/uL MPV 10.6 (7.0-11.0) fl Gran % 85.8 H (50.0-68.0) % Lymph % (Auto) 5.5 L (22.0-35.0) % [place] % (Auto) 8.5 H (1.0-6.0) % Eos % (Auto) 0.1 L (1.5-5.0) % Baso % (Auto) 0.1 (0.0-3.0) % Gran # 14.26 H (1.4-6.5) Lymph # (Auto) 0.9 L (1.2-3.4) [place] # (Auto) 1.4 H (0.1-0.6) Eos # (Auto) 0.0 (0.0-0.7) Baso # (Auto) 0.01 (0.0-2.0) K/mm3 PT 32.4 H (9.4-12.5) SECONDS INR 2.76 Sodium 137 (132-148) mmol/L Potassium 3.3 L (3.6-5.0) mmol/L Chloride 103 (98-107) mmol/L Carbon Dioxide 29 (21-33) mmol/L Anion Gap 8 L (10-20) BUN 20 (7-21) mg/dL Creatinine 0.9 (0.7-1.2) mg/dl Est GFR ( Amer) > 60 Est GFR (Non-Af Amer) > 60 POC Glucose (mg/dL) (65-110) mg/dL Random Glucose 188 H (70-110) mg/dL Calcium 8.3 L (8.4-10.5) mg/dL Total Bilirubin 0.5 (0.2-1.3) mg/dL AST 16 (14-36) U/L ALT 27 (7-56) U/L Alkaline Phosphatase 143 H (38-126) U/L Total Protein 5.3 L (5.8-8.3) g/dL Albumin 2.4 L (3.0-4.8) g/dL Globulin 2.9 gm/dL Albumin/Globulin Ratio 0.8 L (1.1-1.8) Procalcitonin (0.19-0.49) NG/ML 06/02/18 06/02/18 06/02/18 Range/Units 16:09 12:32 08:00 WBC (4.5-11.0) 10^3/ul RBC (3.5-6.1) 10^6/uL Hgb (12.0-16.0) g/dL Hct (36.0-48.0) % MCV (80.0-105.0) fl MCH (25.0-35.0) pg MCHC (31.0-37.0) g/dl RDW (11.5-14.5) % Plt Count (120.0-450.0) 10^3/uL MPV (7.0-11.0) fl Gran % (50.0-68.0) % Lymph % (Auto) (22.0-35.0) % [place] % (Auto) (1.0-6.0) % Eos % (Auto) (1.5-5.0) % Baso % (Auto) (0.0-3.0) % Gran # (1.4-6.5) Lymph # (Auto) (1.2-3.4) [place] # (Auto) (0.1-0.6) Eos # (Auto) (0.0-0.7) Baso # (Auto) (0.0-2.0) K/mm3 PT (9.4-12.5) SECONDS INR Sodium (132-148) mmol/L Potassium (3.6-5.0) mmol/L Chloride (98-107) mmol/L Carbon Dioxide (21-33) mmol/L Anion Gap (10-20) BUN (7-21) mg/dL Creatinine (0.7-1.2) mg/dl Est GFR ( Amer) Est GFR (Non-Af Amer) POC Glucose (mg/dL) 185 H 239 H (65-110) mg/dL Random Glucose (70-110) mg/dL Calcium (8.4-10.5) mg/dL Total Bilirubin (0.2-1.3) mg/dL AST (14-36) U/L ALT (7-56) U/L Alkaline Phosphatase (38-126) U/L Total Protein (5.8-8.3) g/dL Albumin (3.0-4.8) g/dL Globulin gm/dL Albumin/Globulin Ratio (1.1-1.8) Procalcitonin 4.95 H (0.19-0.49) NG/ML 06/02/18 Range/Units 00:23 WBC (4.5-11.0) 10^3/ul RBC (3.5-6.1) 10^6/uL Hgb (12.0-16.0) g/dL Hct (36.0-48.0) % MCV (80.0-105.0) fl MCH (25.0-35.0) pg MCHC (31.0-37.0) g/dl RDW (11.5-14.5) % Plt Count (120.0-450.0) 10^3/uL MPV (7.0-11.0) fl Gran % (50.0-68.0) % Lymph % (Auto) (22.0-35.0) % [place] % (Auto) (1.0-6.0) % Eos % (Auto) (1.5-5.0) % Baso % (Auto) (0.0-3.0) % Gran # (1.4-6.5) Lymph # (Auto) (1.2-3.4) [place] # (Auto) (0.1-0.6) Eos # (Auto) (0.0-0.7) Baso # (Auto) (0.0-2.0) K/mm3 PT (9.4-12.5) SECONDS INR Sodium (132-148) mmol/L Potassium (3.6-5.0) mmol/L Chloride (98-107) mmol/L Carbon Dioxide (21-33) mmol/L Anion Gap (10-20) BUN (7-21) mg/dL Creatinine (0.7-1.2) mg/dl Est GFR ( Amer) Est GFR (Non-Af Amer) POC Glucose (mg/dL) 195 H (65-110) mg/dL Random Glucose (70-110) mg/dL Calcium (8.4-10.5) mg/dL Total Bilirubin (0.2-1.3) mg/dL AST (14-36) U/L ALT (7-56) U/L Alkaline Phosphatase (38-126) U/L Total Protein (5.8-8.3) g/dL Albumin (3.0-4.8) g/dL Globulin gm/dL Albumin/Globulin Ratio (1.1-1.8) Procalcitonin (0.19-0.49) NG/ML Laboratory Results - last 24 hr 06/02/18 06/02/18 06/02/18 00:23 08:00 12:32 WBC RBC Hgb Hct MCV MCH MCHC RDW Plt Count MPV Gran % Lymph % (Auto) [place] % (Auto) Eos % (Auto) Baso % (Auto) Gran # Lymph # (Auto) [place] # (Auto) Eos # (Auto) Baso # (Auto) PT INR Sodium Potassium Chloride Carbon Dioxide Anion Gap BUN Creatinine Est GFR ( Amer) Est GFR (Non-Af Amer) POC Glucose (mg/dL) 195 H 239 H Random Glucose Calcium Total Bilirubin AST ALT Alkaline Phosphatase Total Protein Albumin Globulin Albumin/Globulin Ratio Procalcitonin 4.95 H 06/02/18 06/03/18 06/03/18 16:09 06:00 06:00 WBC 16.6 H D RBC 3.61 Hgb 9.3 L Hct 29.4 L MCV 81.4 MCH 25.8 MCHC 31.6 RDW 16.4 H Plt Count 202 MPV 10.6 Gran % 85.8 H Lymph % (Auto) 5.5 L [place] % (Auto) 8.5 H Eos % (Auto) 0.1 L Baso % (Auto) 0.1 Gran # 14.26 H Lymph # (Auto) 0.9 L [place] # (Auto) 1.4 H Eos # (Auto) 0.0 Baso # (Auto) 0.01 PT INR Sodium 137 Potassium 3.3 L Chloride 103 Carbon Dioxide 29 Anion Gap 8 L BUN 20 Creatinine 0.9 Est GFR ( Amer) > 60 Est GFR (Non-Af Amer) > 60 POC Glucose (mg/dL) 185 H Random Glucose 188 H Calcium 8.3 L Total Bilirubin 0.5 AST 16 ALT 27 Alkaline Phosphatase 143 H Total Protein 5.3 L Albumin 2.4 L Globulin 2.9 Albumin/Globulin Ratio 0.8 L Procalcitonin 06/03/18 06:00 WBC RBC Hgb Hct MCV MCH MCHC RDW Plt Count MPV Gran % Lymph % (Auto) [place] % (Auto) Eos % (Auto) Baso % (Auto) Gran # Lymph # (Auto) [place] # (Auto) Eos # (Auto) Baso # (Auto) PT 32.4 H INR 2.76 Sodium Potassium Chloride Carbon Dioxide Anion Gap BUN Creatinine Est GFR ( Amer) Est GFR (Non-Af Amer) POC Glucose (mg/dL) Random Glucose Calcium Total Bilirubin AST ALT Alkaline Phosphatase Total Protein Albumin Globulin Albumin/Globulin Ratio Procalcitonin Fingerstick Blood Sugar Results: 188 Review of Systems - Constitutional Constitutional: Chills. absent: Fever - EENT Eyes: absent: Blurred Vision Ears: absent: Decreased Hearing Nose/Mouth/Throat: Sore Throat - Cardiovascular Cardiovascular: absent: Chest Pain, Chest Pain at Rest, Chest Pain with Activity - Respiratory Respiratory: Cough (nonproductive), Dyspnea, Wheezing - Gastrointestinal Gastrointestinal: Nausea. absent: Abdominal Pain, Constipation, Diarrhea, Vomiting - Genitourinary Genitourinary: absent: Dysuria, Hematuria - Musculoskeletal Musculoskeletal: absent: Abnormal Gait - Neurological Neurological: absent: Numbness, Tingling, Tremor Critical Care Progress Note - Ventilator Checklist Head of Bed 30 Degrees: Yes PUD Prophalyxis: Yes DVT Prophylaxis: Yes - Nutrition Nutrition: Nutrition Category Date Time Status Consistent Carbohydrate [DIET] Diets 06/01/18 Dinner Ordered Assessment/Plan - Assessment and Plan (Free Text) Assessment: 73 year old female with past medical history of diastolic CHF, atrial fibrillation, COPD, diabetes mellitus type 2, severe bilateral lower extremity edema presents with hypotension with BP in 80s/40s and fever for 3 days likely 2/2 to sepsis from bilateral lower extremity wounds vs. UTI vs. pneumonia Plan: Neuro: -AAOx3, no FND, moving extremities past midline. -No symptoms of altered mental status or lethargy signifying end organ damage. -Monitor neuro status. -Reorient patient as necessary. Cardio: -Regular rate, irregular rhythm, mild hypotension at 100/51 currently off levo phed, no signs of HD compromise -EKG: Atrial fibrillation with RVR, HR: 101, QRS: 90, QTc: 396 -Echo (03/2018): 56.7% LVEF, severe MR, severe TR, severe pulmonary hypertension -Coumadin 3 mg daily for atrial fibrillation. Today's INR was therapeutic at 2.76 -Patient give 5 L of NS for adequate fluid resuscitation for septic shock and is off levophed and stress dose steroids. -Troponin<0.01. Patient does not currently have any signs of cardiac end organ damage, as there is no troponin leak. -BNP: 4420. Patient has likely diastolic heart failure due to preserved EF. -Maintain MAP>65. -Monitor for S/S, HD compromise. Pulm: -No respiratory distress but mild wheezes and self reported shortness of breath -Patient was started on duonebs and pulmicort due to symptoms likely stemming from diagnosis of COPD. Follow up with patient showed improvement in wheezes. -Patient is stating well on 2L NC -Maintain O2 saturation>90%. -O2 NC PRN -CXR on 06/02/18: cardiomegaly, bilateral hilar prominence, emphysematous changed -No signs of fluid overload from 5L of NS given and no signs of end organ damage. -Elevate bed to 30 degrees GI: -Tolerating consistent carbohydrate diet well. -Protonix 40 mg BID /Nephro: -BUN/Cr stable at 20/0.9 consistent with shock as ratio is more than 20:1 -UA and UC ordered to evaluate for possible UTI. -Good urine output at 400 cc -Continue monitoring. -Potassium: 3.3. Potassium repleted with 70 mEq of KCl solution. -Replete electrolytes as needed. -No signs of renal end organ damage as creatinine is within normal limits and patient is urinating appropriately. -Maintain euvolemia. Endocrinology: -Random glucose: 188 -Patient likely hyperglycemic due to previous stress dose steroids. -Patient currently on medium sliding scale insulin. -Obtain and maintain euglycemia at 140-180. Heme/Onc: -H/H decreased to 9.3/29.4 from Hgb of 9.8. -No signs of HD compromise. -Continue monitoring H/H ID: -Afebrile, leukocytosis improved to 16.6 from 21.2. -Follow up UCx, Procalcitonin, Legionella Urine Antigen, S. Pneumoniae Urine Antigen, M. Pneumonia Urine Antigen -Blood culture showed no growth in 24 hours. -Rapid Influenza test negative. -Lactate: improved to 1.6 yesterday from initial lactate of 2.7. -Patient currently on vancomycin 1.5 gm BID and merrem 500 mg Q8. -Patient's likely septic shock improved and possibly due to bilateral leg wounds left more than right vs. HCAP. Continue with antibiotic regimen. -Monitor for signs and symptoms of infection. DVT prophylaxis: coumadin 3 mg daily GI prophylaxis: protonix 40 mg BID Disposition: Patient stable for transfer to medicine floors as blood pressure is stable and patient is not requiring levophed. Patient seen and examined with Dr. Sosa. - Date & Time Date: 06/03/18 Time: 09:46 <Gigi Sosa - Last Filed: 06/03/18 14:09> CCU Objective - Vital Signs / Intake & Output Vital Signs (Last 4 hours): Vital Signs Pulse Resp BP Pulse Ox 06/03/18 13:02 102/48 L 06/03/18 12:56 102 H 34 H 06/03/18 12:55 98 H 38 H 06/03/18 12:54 88 19 06/03/18 12:53 90 14 06/03/18 12:52 100 H 21 06/03/18 12:51 93 H 17 06/03/18 12:50 93 H 30 H 06/03/18 12:49 106 H 41 H 06/03/18 12:48 121 H 19 06/03/18 12:47 113 H 28 H 06/03/18 12:46 107 H 20 06/03/18 12:45 99 H 24 06/03/18 12:44 95 H 20 06/03/18 12:43 92 H 22 06/03/18 12:42 101 H 17 06/03/18 12:41 91 H 22 06/03/18 12:40 94 H 41 H 06/03/18 12:37 100 H 06/03/18 12:30 116 H 46 H 06/03/18 12:20 101 H 27 H 32 L 06/03/18 12:10 124 H 36 H 71 L 06/03/18 12:00 101 H 19 91/51 L 63 L 06/03/18 11:50 102 H 32 H 94 L 06/03/18 11:40 110 H 40 H 66 L 06/03/18 11:30 103 H 100 06/03/18 11:20 114 H 37 H 64 L 06/03/18 11:11 106 H 20 105/58 L 76 L 06/03/18 11:10 100 H 22 63 L 06/03/18 11:07 119 H 49 H 06/03/18 10:30 104 H 35 H 06/03/18 10:20 126 H 66 H 06/03/18 10:10 99 H 24 Intake and Output (Last 8hrs): Intake & Output 06/02/18 06/03/18 06/03/18 22:59 06:59 14:59 Intake Total 440 700 Output Total 400 400 Balance 40 300 Intake: IV 200 450 Left Antecubital 200 abx 450 Oral 240 250 Output: Urine 400 400 Urine, Voided 400 400 Other: # Bowel Movements 0 - Medications Active Medications: Active Medications Generic Name Dose Route Start Last Admin Trade Name Freq PRN Reason Stop Dose Admin Acetaminophen 650 mg 06/01/18 19:01 Tylenol 325mg Tab PO Q6H PRN Pain, moderate (4-7) Albuterol/Ipratropium 3 ml 06/03/18 14:00 06/03/18 08:53 Duoneb 3 Mg/0.5 Mg (3 Ml) Ud IH 3 ml [id number] RONI Administration Budesonide 0.25 mg 06/03/18 20:00 Pulmicort Respules IH [id number] RONI NOREPINEPHRINE BIT/0.9 % NACL 4 mg in 250 mls @ 15 mls/hr 06/01/18 18:02 06/01/18 19:06 Levophed 4 Mg/ 250 Ml Ns Premixed IV 4 mcg/min .[id number] PRN 15 mls/hr TITRATE PER MD ORDER Administration Protocol 4 MCG/MIN Vancomycin HCl 1.5 gm/ Sodium 500 mls @ 167 mls/hr 06/02/18 06:00 06/03/18 05:08 Chloride IVPB 167 mls/hr Q12H RONI Administration Protocol Meropenem 1 gm in 50 mls @ 100 mls/hr 06/02/18 10:42 06/03/18 13:03 Merrem Iv 1 Gm Premix IVPB 06/11/18 10:43 100 mls/hr Q8 RONI Administration Protocol Insulin Human Regular 0 units 06/01/18 22:00 06/03/18 12:48 Humulin R Med SC 1 units ACHS RONI Administration Protocol Levothyroxine Sodium 25 mcg 06/02/18 10:00 06/03/18 09:37 Synthroid PO 25 mcg DAILY RONI Administration Ondansetron HCl 4 mg 06/01/18 19:01 Zofran Inj IVP Q6H PRN Nausea/Vomiting Pantoprazole Sodium 40 mg 06/02/18 10:00 06/03/18 09:33 Protonix Ec Tab PO 40 mg BID RONI Administration Silver Sulfadiazine 0 ea 06/03/18 07:28 06/03/18 09:38 Silvadene 1% TOP 1 g BID RONI Administration Warfarin Sodium 3 mg 06/02/18 18:00 06/02/18 17:47 Coumadin PO 3 mg 1800 RONI Administration Protocol - Patient Studies Lab Studies: Microbiology Studies 06/01/18 22:23 MRSA Culture (Admit) - Final Nose MRSA NOT DETECTED 06/01/18 15:40 Blood Culture - Preliminary Blood NO GROWTH AFTER 24 HOURS 06/01/18 15:10 Blood Culture - Preliminary Blood NO GROWTH AFTER 24 HOURS Lab Studies 06/03/18 06/03/18 06/03/18 Range/Units 06:00 06:00 06:00 WBC 16.6 H D (4.5-11.0) 10^3/ul RBC 3.61 (3.5-6.1) 10^6/uL Hgb 9.3 L (12.0-16.0) g/dL Hct 29.4 L (36.0-48.0) % MCV 81.4 (80.0-105.0) fl MCH 25.8 (25.0-35.0) pg MCHC 31.6 (31.0-37.0) g/dl RDW 16.4 H (11.5-14.5) % Plt Count 202 (120.0-450.0) 10^3/uL MPV 10.6 (7.0-11.0) fl Gran % 85.8 H (50.0-68.0) % Lymph % (Auto) 5.5 L (22.0-35.0) % [place] % (Auto) 8.5 H (1.0-6.0) % Eos % (Auto) 0.1 L (1.5-5.0) % Baso % (Auto) 0.1 (0.0-3.0) % Gran # 14.26 H (1.4-6.5) Lymph # (Auto) 0.9 L (1.2-3.4) [place] # (Auto) 1.4 H (0.1-0.6) Eos # (Auto) 0.0 (0.0-0.7) Baso # (Auto) 0.01 (0.0-2.0) K/mm3 PT 32.4 H (9.4-12.5) SECONDS INR 2.76 Sodium 137 (132-148) mmol/L Potassium 3.3 L (3.6-5.0) mmol/L Chloride 103 (98-107) mmol/L Carbon Dioxide 29 (21-33) mmol/L Anion Gap 8 L (10-20) BUN 20 (7-21) mg/dL Creatinine 0.9 (0.7-1.2) mg/dl Est GFR ( Amer) > 60 Est GFR (Non-Af Amer) > 60 POC Glucose (mg/dL) (65-110) mg/dL Random Glucose 188 H (70-110) mg/dL Calcium 8.3 L (8.4-10.5) mg/dL Total Bilirubin 0.5 (0.2-1.3) mg/dL AST 16 (14-36) U/L ALT 27 (7-56) U/L Alkaline Phosphatase 143 H (38-126) U/L Total Protein 5.3 L (5.8-8.3) g/dL Albumin 2.4 L (3.0-4.8) g/dL Globulin 2.9 gm/dL Albumin/Globulin Ratio 0.8 L (1.1-1.8) Procalcitonin (0.19-0.49) NG/ML 06/02/18 06/02/18 Range/Units 16:09 08:00 WBC (4.5-11.0) 10^3/ul RBC (3.5-6.1) 10^6/uL Hgb (12.0-16.0) g/dL Hct (36.0-48.0) % MCV (80.0-105.0) fl MCH (25.0-35.0) pg MCHC (31.0-37.0) g/dl RDW (11.5-14.5) % Plt Count (120.0-450.0) 10^3/uL MPV (7.0-11.0) fl Gran % (50.0-68.0) % Lymph % (Auto) (22.0-35.0) % [place] % (Auto) (1.0-6.0) % Eos % (Auto) (1.5-5.0) % Baso % (Auto) (0.0-3.0) % Gran # (1.4-6.5) Lymph # (Auto) (1.2-3.4) [place] # (Auto) (0.1-0.6) Eos # (Auto) (0.0-0.7) Baso # (Auto) (0.0-2.0) K/mm3 PT (9.4-12.5) SECONDS INR Sodium (132-148) mmol/L Potassium (3.6-5.0) mmol/L Chloride (98-107) mmol/L Carbon Dioxide (21-33) mmol/L Anion Gap (10-20) BUN (7-21) mg/dL Creatinine (0.7-1.2) mg/dl Est GFR ( Amer) Est GFR (Non-Af Amer) POC Glucose (mg/dL) 185 H (65-110) mg/dL Random Glucose (70-110) mg/dL Calcium (8.4-10.5) mg/dL Total Bilirubin (0.2-1.3) mg/dL AST (14-36) U/L ALT (7-56) U/L Alkaline Phosphatase (38-126) U/L Total Protein (5.8-8.3) g/dL Albumin (3.0-4.8) g/dL Globulin gm/dL Albumin/Globulin Ratio (1.1-1.8) Procalcitonin 4.95 H (0.19-0.49) NG/ML Laboratory Results - last 24 hr 06/02/18 06/02/18 06/03/18 08:00 16:09 06:00 WBC 16.6 H D RBC 3.61 Hgb 9.3 L Hct 29.4 L MCV 81.4 MCH 25.8 MCHC 31.6 RDW 16.4 H Plt Count 202 MPV 10.6 Gran % 85.8 H Lymph % (Auto) 5.5 L [place] % (Auto) 8.5 H Eos % (Auto) 0.1 L Baso % (Auto) 0.1 Gran # 14.26 H Lymph # (Auto) 0.9 L [place] # (Auto) 1.4 H Eos # (Auto) 0.0 Baso # (Auto) 0.01 PT INR Sodium Potassium Chloride Carbon Dioxide Anion Gap BUN Creatinine Est GFR ( Amer) Est GFR (Non-Af Amer) POC Glucose (mg/dL) 185 H Random Glucose Calcium Total Bilirubin AST ALT Alkaline Phosphatase Total Protein Albumin Globulin Albumin/Globulin Ratio Procalcitonin 4.95 H 06/03/18 06/03/18 06:00 06:00 WBC RBC Hgb Hct MCV MCH MCHC RDW Plt Count MPV Gran % Lymph % (Auto) [place] % (Auto) Eos % (Auto) Baso % (Auto) Gran # Lymph # (Auto) [place] # (Auto) Eos # (Auto) Baso # (Auto) PT 32.4 H INR 2.76 Sodium 137 Potassium 3.3 L Chloride 103 Carbon Dioxide 29 Anion Gap 8 L BUN 20 Creatinine 0.9 Est GFR ( Amer) > 60 Est GFR (Non-Af Amer) > 60 POC Glucose (mg/dL) Random Glucose 188 H Calcium 8.3 L Total Bilirubin 0.5 AST 16 ALT 27 Alkaline Phosphatase 143 H Total Protein 5.3 L Albumin 2.4 L Globulin 2.9 Albumin/Globulin Ratio 0.8 L Procalcitonin Critical Care Progress Note - Nutrition Nutrition: Nutrition Category Date Time Status Consistent Carbohydrate [DIET] Diets 06/01/18 Dinner Ordered Attending/Attestation - Attestation I have personally seen and examined this patient.: Yes I have fully participated in the care of the patient.: Yes I have reviewed all pertinent clinical information: Yes Notes (Text): 06/03/18 14:07 73 yo female with now resolved septic shock seconday to cellulitis in the setting of severe MR and pulmonary hypertension. Off of pressors, hemodynamically stable. Diuresis. complete abx course. PT as tolerated. oral nutrition, dvt.gi prophylaxis. ok to downgrade to tele. wound care ccm time 40 min
[2018-06-03] MEDS ORDERED: Potassium Chloride 20 mEq ER Tab PO ONE (10:25)
--- NOTE | 2018-06-03 11:23 | PN ---
DATE: 06/03/2018 PULMONARY PROGRESS NOTE SUBJECTIVE: The patient was examined in the Intensive Care Unit. She is currently admitted for severe sepsis originating most likely from leg wounds due to chronic severe edema of lower extremities. PHYSICAL EXAMINATION: VITAL SIGNS: Her vital signs this morning, temperature is 98, respirations 24, pulse oximetry was low at 67 on nasal cannula, pule rate 98. HEENT: Examination of head, ears, nose and throat is within normal limits. NECK: Supple with no jugular vein distentions. CHEST: Clear to auscultation. ABDOMEN: Morbidly obese. Bowel sounds present. EXTREMITIES: 3+ edema. SKIN: No acute skin rash. NEUROLOGIC: Deferred at present time. ASSESSMENT: The patient still complains of sore throat, headache, some productive cough and shortness of breath. She is being treated with empiric antibiotics. She is on DuoNeb inhalation, hydrocortisone, meropenem, vancomycin. Her preliminary blood culture showed no growth. WBC is elevated. A 73 years old with morbid obesity, diastolic congestive heart failure, chronic obstructive pulmonary disease, diabetes. Admitted with severe sepsis, most likely originating from the wounds on lower extremities. We will continue supporting her with supplemental oxygen. Maintain oxygen saturation above 90. Her chest x-ray does not show any discrete infiltrate, so I do not see that we are dealing with pneumonia. We will continue with current antibiotics. Valerio Pritchett MD
--- NOTE | 2018-06-03 14:32 | PN ---
DATE: 06/03/2018 FOLLOWUP SUBJECTIVE: The patient is no longer on Levophed infusion. She denies any chest pain. Shortness of breath has improved. The patient was evaluated by both Dr. Fernandez and Dr. Castillo. The patient had some of her right inguinal and right lower anterior abdominal wall blisters opened and dressing was applied today. The patient is afebrile today. PHYSICAL EXAMINATION: VITAL SIGNS: Temperature 97.4, blood pressure 114/48, heart rate 93, respirations 20. HEENT: Pale conjunctivae. CHEST: Diminished breath sounds over the bases. HEART: S1 and S2 regular. EXTREMITIES: 2-3+ pitting edema. LABORATORY DATA: Today's white count 16.6, hemoglobin and hematocrit 9.3 and 29.4, white count 202,000. SMA-7: Sodium 137, potassium 3.3, chloride 103, CO2 of 29, glucose of 188, BUN 20, creatinine 0.9. Blood cultures negative as per 24 hours. ASSESSMENT: 1. Chronic atrial fibrillation. 2. Improving sepsis and hypotension. 3. Severe mitral insufficiency. 4. Severe pulmonary hypertension and right-sided failure. RECOMMENDATIONS: Continue Coumadin 3 mg daily. Today's INR is 2.76. Continue IV meropenem at 1 g every 8 hours, Synthroid 25 mcg once a day, vancomycin at 1.5 g intravenously every 12 hours. The patient did receive 40 mEq of potassium chloride oral replacement. I will cancel the echo ordered as the primary source of infection is identified. João Segundo MD
[2018-06-03 15:14] LABS: URINE APPEARANCE CLEAR (CLEAR); URINE BILIRUBIN NEGATIVE (NEGATIVE); URINE BLOOD NEGATIVE (NEGATIVE); URINE COLOR YELLOW (YELLOW); URINE GLUCOSE (UA) NEGATIVE (NEGATIVE); URINE LEUKOCYTE ESTERASE TRACE Leu/uL (NEGATIVE); URINE PROTEIN NEGATIVE mg/dL (<30 mg/dL)
[2018-06-03 15:23] LABS: URINE BACTERIA SMALL (NEG); URINE RBC NEGATIVE /hpf (0-2); URINE WBC 0 - 2 /hpf (0-6)
--- NOTE | 2018-06-03 16:50 | US ---
HISTORY: Leg pain and swelling. Evaluate for DVT PHYSICIAN(S): Ryan Miranda MD. TECHNIQUE: Duplex sonography and color-flow Doppler with graded compression were used to evaluate the deep venous systems of both lower extremities. The exam is very limited by body habitus and edema. The lower femoral veins and tibial veins are not well seen FINDINGS: The visualized deep venous systems of both lower extremities are sonographically normal and compressible. Normal wave forms and augmentation are seen. There is no sonographic evidence for deep venous thrombosis in the visualized segments of both lower extremities. IMPRESSION: No sonographic evidence for deep venous thrombosis in the visualized segments of both lower extremities. Very limited study
--- NOTE | 2018-06-03 18:20 | PN ---
DATE: 06/03/2018 SUBJECTIVE: The patient is in bed, in no acute distress, nontoxic. PHYSICAL EXAMINATION: VITAL SIGNS: Temperature is 97, blood pressure is 91/43, it was as low as 88, heart rate of 99-106, respiratory rate of 32. HEENT: Unremarkable. NECK: Supple. LUNGS: Have decreased breath sounds. HEART: Normal S1, S2. ABDOMINAL: Soft, nontender. LABORATORY EXAMINATION: Reveals a white count of 16,600. Coagulation is noted. Chemistries reveals a BUN of 20, creatinine of 0.9. Procalcitonin is 4.95 and serology is reviewed. Microbiology reveals the blood cultures are negative. ASSESSMENT AND PLAN: A 73-year-old with super morbid obesity, BMI of 81, coronary artery disease, congestive heart failure, diabetes mellitus, atrial fibrillation, chronic lymphedema, chronic obstructive lung disease on home O2 therapy, admitted with lymphedema and severe sepsis and bilateral lower extremity cellulitis versus healthcare-associated pneumonia on vancomycin, meropenem, elevated procalcitonin and thus far, the blood cultures are negative. Methicillin-resistant Staphylococcus aureus screen is pending. Urine for Legionella is pending and day #2 of meropenem. The patient is also on Solu-Cortef, vancomycin. We will follow with you. Overall, the patient appears to be improving. Santy Fernandez MD
[2018-06-03] MEDS ORDERED: Budesonide 0.25 mg/2 ml Inhal Susp UD IH SCH (20:00)
[2018-06-04] MEDS: Albuterol-Ipratrop 3 mg / 0.5 (3 ml) UD IH SCH ×4 (02:02→19:34)
--- NOTE | 2018-06-04 02:46 | PN ---
DATE: 06/03/2018 SUBJECTIVE: I saw her in the Intensive Care Unit. She is resting comfortably in bed. She is feeling a little bit better. They tried to give her liquid potassium this morning and she could not take it. It strong her throat. I gave her two 20 mEq of potassium pills hopefully to replace the potassium. She was currently on Coumadin, DuoNeb, insulin, potassium, Levophed, Merrem IV, Protonix, Pulmicort, Silvadene cream, Synthroid, Tylenol, vancomycin IV and Zofran. She is alert, talking, comfortable, little sore throat from the potassium, but overall feels a little bit better than when she came in, which is great. PHYSICAL EXAMINATION: VITAL SIGNS: Temperature 97.4 , 88 pulse, 16 respiratory rate, 114/48 blood pressure. Last oxygen saturation was 90%. HEAD: Atraumatic, normocephalic. HEART: Regular rate. LUNGS: Decreased breath sounds bilaterally, very poor inspiration, hard to get a good listen. ABDOMEN: Soft, morbidly, morbidly, morbidly obese, nontender. Positive bowel sounds. EXTREMITIES: Are extremely swollen, lymphedema, 10/4 pitting edema bilaterally up to the thighs and bilateral thighs with skin ulcers and oozing. LABORATORY DATA: She has a 16.6 white count, still coming down. It was 28, then was 21, now 16.6, better with IV antibiotics. Hemoglobin is 9.3, hematocrit 29.4, platelets of 202. INR is 2.76, on Coumadin, lactate down to 1.6. Sodium 137, potassium 3.3. I will replace the potassium. BUN 20, creatinine 0.9, GFR greater than 60, sugar is 188, calcium is 8.3, total bili is 0.5. AST is 16, ALT is 27, alk phos 143, total protein is 5.3. Procalcitonin is high at 4.95. Negative for the flu. ASSESSMENT AND PLAN: She is being seen by Pulmonary, Infectious Disease. She is morbidly obese with diabetes, congestive heart failure, history of atrial fibrillation, bilateral lower extremity cellulitis, severe sepsis. Continue aggressive treatment and care as per Infectious Disease on IV antibiotics. We will follow the labs, replace potassium. Alan Mann DO [facility] # [id number]
[2018-06-04] MEDS: Meropenem IV 1 gm in NS 1 GM/50 ML BAG IVPB SCH ×3 (05:03→22:11)
[2018-06-04] MEDS: Vancomycin 1.5 GM in Sodium Chloride 0.9% 500 ML IVPB SCH ×2 (05:04→18:22)
[2018-06-04 07:09] LABS: ALB/GLOB RATIO 0.7 (1.1-1.8); ALBUMIN 2.4 g/dL (3.0-4.8); ALT/SGPT 25 U/L (7-56); AST/SGOT 17 U/L (14-36); BLOOD UREA NITROGEN 21 mg/dL (7-21); CALCIUM 8.2 mg/dL (8.4-10.5); GFR NON-AFRICAN AMERICAN > 60
[2018-06-04 07:11] LABS: BASO # 0.02 K/mm3 (0.0-2.0); BASO % 0.1 % (0.0-3.0); EOS # 0.1 (0.0-0.7); EOS % 0.6 % (1.5-5.0); GRAN # 13.31 (1.4-6.5); GRAN % 85.1 % (50.0-68.0); HEMOGLOBIN 9.1 g/dL (12.0-16.0); LYMPH % 6.5 % (22.0-35.0); MEAN CELL VOLUME 81.3 fl (80.0-105.0); MEAN CORPUSCULAR HEMOGLOBIN 25.8 pg (25.0-35.0); MEAN CORPUSCULAR HGB CONC 31.7 g/dl (31.0-37.0); MEAN PLATELET VOLUME 11.1 fl (7.0-11.0); MONO # 1.2 (0.1-0.6); MONO % 7.7 % (1.0-6.0); RBC 3.53 10^6/uL (3.5-6.1); RED CELL DISTRIBUTION WIDTH 16.7 % (11.5-14.5); WHITE BLOOD COUNT 15.6 10^3/ul (4.5-11.0)
--- NOTE | 2018-06-04 07:38 | PN ---
DATE: 06/04/2018([id number]) PULMONARY NOTE SUBJECTIVE: The patient appears comfortable this morning. She is not short of breath at rest. PHYSICAL EXAMINATION VITAL SIGNS: Temperature is 97.4, pulse on the monitor is 108, respiratory rate 20, blood pressure 92/43, oxygen saturation on nasal cannula is 95%. HEENT: Normocephalic, atraumatic. No JVD. CARDIOVASCULAR: Systolic ejection murmur at the lower left sternal border. No S3 gallop. LUNGS: Decreased breath sounds at the bases. Minimal rhonchi. No wheezing. EXTREMITIES: Positive for edema. No cyanosis or clubbing. Calves are nontender to palpation. GI: Abdomen is soft, nontender and nondistended. Bowel sounds are positive. SKIN: Bilateral lower extremity cellulitis. NEUROLOGIC: Limited at the present time. IMPRESSION: 1. Sepsis syndrome. 2. Bilateral cellulitis. 3. Chronic obstructive pulmonary disease. 4. Asthma. 5. Anemia. PLAN: The patient appears comfortable this morning. She is not short of breath at rest. She does state to feeling better overall. I did discuss the case with the night nurse at length. The night nurse stated that the patient had a very good night. On physical exam, there is only mild bronchospasm noted. In addition, there is no significant alveolar-arterial gradient. I will continue with the current DuoNeb treatments and increase the inhaled steroids this morning. The patient also remains on antibiotic therapy - as per Infectious Disease. Input by Dr. Fernandez is noted. The leukocytosis is now resolving. Inputs by Internal Medicine and Cardiology are also noted. Clinical status of the patient does appear improved - compared to her initial presentation. However, the future status/prognosis for this chronically ill patient does remain very guarded/poor. I will discuss the above with the entire ICU team the next few moments. I will also discuss the above with Dr. Mann later this morning. Ke Farooq MD ANUP
[2018-06-04] MEDS: Budesonide 0.5 mg/2 ml Inhal Susp UD IH SCH ×2 (07:59→19:34)
[2018-06-04] MEDS: Insulin Reg-MEDIUM-Coverage SC SCH ×4 (08:00→22:10)
[2018-06-04] MEDS ORDERED: Potassium Chloride 20 mEq ER Tab PO ONE (08:28)
--- NOTE | 2018-06-04 09:05 | PN ---
DATE: 06/04/2018 SUBJECTIVE: I saw her in the Intensive Care Unit. She now has a bad sore throat. She is overall about the same. She has severe sepsis, CHF, COPD, morbidly morbidly obese. Trying to eat some, but no appetite. PHYSICAL EXAMINATION: VITAL SIGNS: She has a 98.6 temp, 123 pulse, 29 respiratory rate, 92/43 blood pressure. HEENT: Head is atraumatic, normocephalic. HEART: Regular rate. LUNGS: Decreased breath sounds bilaterally. Poor inspiration. ABDOMEN: Morbidly obese, soft. Positive bowel sounds. Nontender. EXTREMITIES: 10/4 pitting edema bilaterally. Bilateral thighs with oozing and ulcers. MEDICATIONS: She is currently on Cepacol now, Coumadin, DuoNebs, insulin, Levophed, Merrem IV, Protonix, Pulmicort, Silvadene cream, Synthroid, Tylenol, vancomycin IV and Zofran. LABORATORY DATA: She has a 15.6 white count, still elevated, but coming down; 9.1 hemoglobin; 28.7 hematocrit with a 236 platelets. INR is 2.76. Chemistry: 136 sodium; potassium 3.4, I replaced the potassium again; BUN 21; creatinine 0.8; GFR is greater than 60; sugar is 243; calcium is 8.2; total bili is 0.5; AST is 17; ALT is 25; alk phos 150; total protein is 5.6. ASSESSMENT AND PLAN: She is having numerous issues going on, severe sepsis, congestive heart failure, chronic obstructive pulmonary disease, morbidly obese, electrolyte issues. I will try to help with the electrolyte issues of potassium. Watching her warfarin, INR levels. Hopefully, she will do better. She will go to telemetry soon. Jordy Mann DO
[2018-06-04] MEDS: Pantoprazole 40 mg EC Tab PO SCH ×2 (09:48→17:25)
[2018-06-04] MEDS: Levothyroxine 25 MCG TAB PO SCH (09:48)
[2018-06-04] MEDS ORDERED: Aluminum Hydroxide/Magnesium 30 ML, DiphenhydrAMINE 75 MG, Lidocaine 2% Viscous 30 ML PO PRN ×2 (10:04→10:08)
--- NOTE | 2018-06-04 10:12 | CP.PCM.PN ---
Subjective - Date & Time of Evaluation Date of Evaluation: 06/04/18 Time of Evaluation: 10:08 - Subjective Subjective: General Surgery Progress Note for Dr. Castillo This 73F was seen and examined this AM at bedside no acute events reported overnight. She complains of sore throat. She reports that the wounds are not changing. No new complaints at this time. Objective - Vital Signs/Intake and Output Vital Signs (last 24 hours): Temp Pulse Resp BP Pulse Ox 98.6 F 123 H 29 H 92/43 L 41 L 06/04/18 04:00 06/04/18 07:12 06/04/18 07:12 06/04/18 07:01 06/04/18 06:50 Intake and Output: 06/04/18 06/04/18 06:59 18:59 Intake Total 950 Balance 950 - Medications Medications: Current Medications Acetaminophen (Tylenol 325mg Tab) 650 mg PO Q6H PRN PRN Reason: Pain, moderate (4-7) Albuterol/Ipratropium (Duoneb 3 Mg/0.5 Mg (3 Ml) Ud) 3 ml IH [id number] RONI Last Admin: 06/04/18 07:59 Dose: 3 ml Benzocaine/Menthol (Cepacol Sore Throat) 1 rosa MT Q2H PRN PRN Reason: Sore Throat Budesonide (Pulmicort Respules) 0.5 mg IH [id number] RONI Last Admin: 06/04/18 07:59 Dose: 0.5 mg Al Hydrox/Mg Hydrox/Simethicone 30 ml/Diphenhydramine HCl 75 mg/Lidocaine 30 ml 0 ml PO Q2H PRN PRN Reason: Mouth/Throat Pain NOREPINEPHRINE BIT/0.9 % NACL (Levophed 4 Mg/ 250 Ml Ns Premixed) 4 mg in 250 mls @ 15 mls/hr IV .[id number] PRN; Protocol PRN Reason: TITRATE PER MD ORDER Last Admin: 06/01/18 19:06 Dose: 4 mcg/min, 15 mls/hr Vancomycin HCl 1.5 gm/ Sodium (Chloride) 500 mls @ 167 mls/hr IVPB Q12H RONI; Protocol Last Admin: 06/04/18 05:04 Dose: 167 mls/hr Meropenem (Merrem Iv 1 Gm Premix) 1 gm in 50 mls @ 100 mls/hr IVPB Q8 [facility]; Protocol Stop: 06/11/18 10:43 Last Admin: 06/04/18 05:03 Dose: 100 mls/hr Insulin Human Regular (Humulin R Med) 0 units SC ACHS [facility]; Protocol Last Admin: 06/04/18 08:00 Dose: 5 units Levothyroxine Sodium (Synthroid) 25 mcg PO DAILY [facility] Last Admin: 06/04/18 09:48 Dose: 25 mcg Metformin HCl (Glucophage) 1,000 mg PO BID [facility] Last Admin: 06/04/18 09:48 Dose: 1,000 mg Ondansetron HCl (Zofran Inj) 4 mg IVP Q6H PRN PRN Reason: Nausea/Vomiting Pantoprazole Sodium (Protonix Ec Tab) 40 mg PO BID [facility] Last Admin: 06/04/18 09:48 Dose: 40 mg Silver Sulfadiazine (Silvadene 1%) 0 ea TOP BID [facility] Last Admin: 06/03/18 17:18 Dose: 2 g Warfarin Sodium (Coumadin) 3 mg PO 1800 [facility]; Protocol Last Admin: 06/03/18 17:18 Dose: 3 mg - Labs Labs: 06/04/18 06:40 06/04/18 06:40 PT 32.4 SECONDS (9.4-12.5) H 06/03/18 06:00 INR 2.76 06/03/18 06:00 APTT 36.2 Seconds (25.1-36.5) 06/01/18 15:10 - Constitutional Appears: Non-toxic, No Acute Distress - Head Exam Head Exam: ATRAUMATIC, NORMOCEPHALIC - Eye Exam Eye Exam: EOMI - ENT Exam Additional comments: Presumptive oral candidiasis - Respiratory Exam Respiratory Exam: NORMAL BREATHING PATTERN - Cardiovascular Exam Cardiovascular Exam: +S1, +S2 - GI/Abdominal Exam GI & Abdominal Exam: Soft. absent: Tenderness Additional comments: Panus with multiple skin break downs - Neurological Exam Neurological Exam: Alert, Awake - Psychiatric Exam Psychiatric exam: Normal Affect, Normal Mood Assessment and Plan - Assessment and Plan (Free Text) Assessment: 73F with morbid obesity and multiple skin breakdowns Reposition Q2 Silvadene to wounds Nystatin Mouthwash D/W Dr. Jonathan Interiano PGY3
[2018-06-04] MEDS ORDERED: Digoxin 500 mcg/2ml (0.5 mg/2ml) Inj IVP ONE (11:05)
[2018-06-04] MEDS: Silver Sulfadiazine 1% Cream (400 gm) TOP SCH ×2 (12:08→17:34)
--- NOTE | 2018-06-04 13:03 | PN ---
DATE: 06/04/2018 SUBJECTIVE: The patient is currently in rapid atrial fibrillation. She denies any chest pain. PHYSICAL EXAMINATION: VITAL SIGNS: Blood pressure 82/67, heart rate 116, temperature 97.3. HEENT: Normocephalic. CHEST: Diminished breath sounds over the bases. HEART: S1, S2 regular. EXTREMITIES: 2-3+ pitting edema. LABORATORY DATA: Hemoglobin and hematocrit 9.1 and 28.7, white count 15.6, platelet count 236,000. SMA-7, sodium 136, potassium 3.4, chloride 102, CO2 of 28, glucose 143, BUN 21, creatinine 0.8. Blood cultures negative after 48 hours. ASSESSMENT 1. Consider underlying sepsis. The primary is anterior abdominal wall infection. 2. Hypotension. 3. Rapid atrial fibrillation. 4. Severe pulmonary hypertension and right-sided failure. 5. Hypokalemia. RECOMMENDATIONS: Continue albuterol inhaler. Continue Glucophage 1 g twice a day, IV meropenem at 1 g every 8 hours, Synthroid at 25 mcg p.o. once a day, vancomycin 1.5 mg every 12 hours. I will administer one dose of digoxin 0.25 intravenously today. João Segundo MD
--- NOTE | 2018-06-04 13:54 | PN ---
DATE: 06/04/2018 SUBJECTIVE: Maria Isabel Bowden is seen. She has multiple ulcers on the pannus on either flank. These are being treated with Silvadene appropriately. The chart says she lost over 150 pounds since last admission, which I think is a technical error. I think she . There is a little bit of thrush noted on the tongue and that will be treated. For now, I have no more recommendations. We will follow with you. Dennis Castillo MD
--- NOTE | 2018-06-04 14:50 | PN ---
DATE: 06/04/2018 SUBJECTIVE: The patient was seen earlier today in 129, bed 4. No fevers and no chills. She is doing better. The patient's is sleeping in the chair. PHYSICAL EXAMINATION: VITAL SIGNS: Temperature is 98, blood pressure is 100/60, respiratory rate of 18, heart rate of 120. HEENT: Examination of HEENT is unremarkable. NECK: Supple. LUNGS: Have decreased breath sounds. HEART: Normal S1, S2. ABDOMEN: Soft, nontender. LABORATORY DATA: Laboratory examination reveals the white count is down to 15,600. Chemistries are noted. BUN of 21, creatinine of 0.8. Urinalysis is noted. Serology is reviewed. Microbiology, blood cultures are negative. Nasal MRSA is not detected. ASSESSMENT AND PLAN: A 73-year-old female with morbid obesity, body mass index of 81, coronary artery disease, congestive heart failure, diabetes mellitus, atrial fibrillation, chronic lymphedema, chronic obstructive lung disease on home O2 therapy, admitted with lymphedema, severe sepsis, bilateral lower extremity cellulitis versus healthcare-associated pneumonia, on vancomycin, meropenem, day #3. Her white count appears to be improving. Blood cultures are negative. Nasal methicillin-sensitive Staphylococcus aureus is not detected. We will follow closely with you. Santy Fernandez MD
[2018-06-04] MEDS: Nystatin 100,000 Units/ml Oral Susp 5 ml UD PO SCH ×3 (15:26→22:11)
[2018-06-04] MEDS: Benzocaine/Menthol (Cepacol) Lozenge MT PRN (15:26)
[2018-06-05] MEDS: Albuterol-Ipratrop 3 mg / 0.5 (3 ml) UD IH SCH ×4 (01:45→20:12)
[2018-06-05] MEDS: Meropenem IV 1 gm in NS 1 GM/50 ML BAG IVPB SCH ×3 (06:00→22:44)
[2018-06-05 07:44] LABS: BASO # 0.09 K/mm3 (0.0-2.0); BASO % 0.5 % (0.0-3.0); EOS # 0.5 (0.0-0.7); EOS % 2.9 % (1.5-5.0); GRAN # 14.33 (1.4-6.5); GRAN % 83.6 % (50.0-68.0); HEMOGLOBIN 9.5 g/dL (12.0-16.0); LYMPH # 1.2 (1.2-3.4); LYMPH % 7.1 % (22.0-35.0); MEAN CELL VOLUME 81.8 fl (80.0-105.0); MEAN CORPUSCULAR HEMOGLOBIN 26.2 pg (25.0-35.0); MEAN CORPUSCULAR HGB CONC 32.1 g/dl (31.0-37.0); MEAN PLATELET VOLUME 11.3 fl (7.0-11.0); MONO % 5.9 % (1.0-6.0); RBC 3.62 10^6/uL (3.5-6.1); RED CELL DISTRIBUTION WIDTH 16.6 % (11.5-14.5); WHITE BLOOD COUNT 17.1 10^3/ul (4.5-11.0)
[2018-06-05 07:50] LABS: INR 2.71; PROTHROMBIN TIME 31.8 SECONDS (9.4-12.5)
[2018-06-05 07:54] LABS: ALB/GLOB RATIO 0.8 (1.1-1.8); ALBUMIN 2.4 g/dL (3.0-4.8); ALT/SGPT 24 U/L (7-56); AST/SGOT 14 U/L (14-36); BLOOD UREA NITROGEN 19 mg/dL (7-21); CALCIUM 8.1 mg/dL (8.4-10.5); GFR NON-AFRICAN AMERICAN > 60
[2018-06-05] MEDS: Budesonide 0.5 mg/2 ml Inhal Susp UD IH SCH ×2 (07:57→20:12)
[2018-06-05] MEDS: Vancomycin 1.5 GM in Sodium Chloride 0.9% 500 ML IVPB SCH ×2 (08:20→18:14)
[2018-06-05] MEDS: Insulin Reg-MEDIUM-Coverage SC SCH ×4 (08:34→22:41)
--- NOTE | 2018-06-05 09:57 | PN ---
DATE: 06/05/2018 SUBJECTIVE: The patient is in bed, in no acute distress. PHYSICAL EXAMINATION: VITAL SIGNS: On exam, temperature is 98, blood pressure is 106/60, respiratory rate of 22, heart rate of 123. HEENT: Examination of HEENT is unremarkable. NECK: Supple. LUNGS: Have decreased breath sounds. HEART: Normal S1, S2. ABDOMEN: Soft. LABORATORY DATA: Laboratory examination reveals the white count is 17,000, hemoglobin of 9. Chemistries are noted. BUN of 19, creatinine of 0.7. Urinalysis is noted. Influenza is negative. Microbiology: The urine cultures are negative. Nasal MRSA is negative. Blood cultures are negative. ASSESSMENT AND PLAN: A 73-year-old female, seen earlier today with super morbid obesity, body mass index of 81, coronary artery disease, congestive heart failure, diabetes mellitus, atrial fibrillation, chronic lymphedema, chronic obstructive lung disease, home O2 therapy. Admitted with lymphedema, severe sepsis, bilateral lower extremity cellulitis versus healthcare-associated pneumonia. On vancomycin and meropenem day #4. Overall, long-term prognosis is quite poor. Santy Fernandez MD
[2018-06-05] MEDS: Silver Sulfadiazine 1% Cream (400 gm) TOP SCH ×2 (10:42→18:15)
[2018-06-05] MEDS: Pantoprazole 40 mg EC Tab PO SCH ×2 (10:47→18:15)
[2018-06-05] MEDS: Benzocaine/Menthol (Cepacol) Lozenge MT PRN (10:47)
[2018-06-05] MEDS: Levothyroxine 25 MCG TAB PO SCH (10:47)
[2018-06-05] MEDS: Nystatin 100,000 Units/ml Oral Susp 5 ml UD PO SCH ×4 (10:47→22:45)
--- NOTE | 2018-06-05 12:32 | PN ---
DATE: 06/05/2018 SUBJECTIVE: The patient appears comfortable this morning. She is not short of breath at rest. PHYSICAL EXAMINATION: VITAL SIGNS: Temperature 98.4, pulse 108, respirations 16, last blood pressure recorded is 117/56. Oxygen saturation on nasal cannula is 98%. HEENT: Normocephalic, atraumatic. NECK: No JVD. CARDIOVASCULAR: Systolic ejection murmur at the lower left sternal border. No S3 gallop. LUNGS: Decreased breath sounds at the bases. Less rhonchi. No wheezing. EXTREMITIES: Positive for edema. No cyanosis or clubbing. Calves are nontender to palpation. GI: Abdomen is soft, nontender and nondistended. Bowel sounds are positive. SKIN: Bilateral lower extremity cellulitis. NEUROLOGIC: Exam limited at the present time. IMPRESSION: 1. Sepsis syndrome. 2. Bilateral cellulitis. 3. Chronic obstructive pulmonary disease. 4. Asthma. 5. Anemia. PLAN: The patient appears comfortable this morning. She is not short of breath at rest. She does state feeling better overall. I did discuss the case with the night nurse at length. The night nurse stated that the patient had a very good night. The patient does remain on low-dose Levophed. On physical exam, there is less bronchospasm noted. In addition, the alveolar-arterial gradient is less. I will continue the current nebulizer treatments and inhaled steroids for now. Inputs by Surgery and Cardiology are also noted. I would continue with the antibiotic coverage as per Infectious Disease. Input by Dr. Fernandez is noted. The leukocytosis is resolving. Clinical status of the patient is definitely improved - compared to the initial presentation. However, again, the future status/prognosis for this elderly patient does remain very guarded. I will discuss the above with the entire ICU team in the next few moments. I will discuss the above with the attending physician later this morning. Ke Farooq MD MTD[facility]ivien
--- NOTE | 2018-06-05 12:53 | PN ---
DATE: 06/05/2018 SUBJECTIVE: I saw Maria Isabel in the Intensive Care Unit. Still resting comfortably in bed. Her throat is a little bit better, could be thrush. She is on Cepacol and a swallow and swish from Dr. Castillo. She is here with severe sepsis, morbidly obese. She is on Merrem and vancomycin by Infectious Disease. Her blood pressure has also been borderline, but she is alert and may be little bit better overall since she has been in the hospital and on IV antibiotics. PHYSICAL EXAMINATION: VITAL SIGNS: Last temperature 98.4, 100 pulse, 26 respiratory rate, 106/61 blood pressure, 100% O2 sat on oxygen. HEENT: Head is atraumatic, normocephalic. Throat is thrushy, but improving. Tongue is not as bad as yesterday. NECK: Supple. HEART: Regular rate. LUNGS: Decreased breath sounds, but clear. ABDOMEN: Soft, morbidly obese, nontender. EXTREMITIES: Have +10/4 pitting edema bilateral. Both thighs are very wide. There are some ulcers on either thighs, being treated with surgery and Silvadene cream. MEDICATIONS: She is on Cepacol, Coumadin, DuoNebs, Glucophage, insulin, Levophed, a mouthwash for thrush, Merrem IV, Neurontin, nystatin oral suspension, Protonix, Pulmicort, Silvadene cream, Synthroid, Tylenol, vancomycin IV and Zofran. LABORATORY DATA: She has a 17.1 white count, still staying high, who came in with a 20.6; her hemoglobin is 9.5; hematocrit 29.6; platelets of 274. Her INR is 2.71, on Coumadin. She has a 134 sodium, potassium 3.7, BUN creatinine 0.7, GFR is greater than 60, sugar is 152, calcium is 8.1, total bili is 0.7, AST is 14, ALT is 24, alk phos 137, total protein is 5.5. ASSESSMENT AND PLAN: As per Infectious Disease, Surgery, Pulmonary, when I could change her over to tablets as per Infectious Disease, I am also working on discharge planning. She is definitely improved since she came in with the white count is still elevated. We will check her labs tomorrow. Hopefully, get her to telemetry next. Alan Mann DO [facility] # [id number] ANUP
[2018-06-05] MEDS: Digoxin 500 mcg/2ml (0.5 mg/2ml) Inj IVP ONE ×2 (14:07→14:11)
[2018-06-05] MEDS ORDERED: Digoxin 500 mcg/2ml (0.5 mg/2ml) Inj IVP ONE (14:15)
--- NOTE | 2018-06-05 14:15 | PN ---
DATE: 06/05/2018 FOLLOWUP SUBJECTIVE: The patient denies any chest pain. She is still in rapid atrial fibrillation. PHYSICAL EXAMINATION: VITAL SIGNS: Blood pressure 106/61, heart rate 121, respirations 24, temperature 98.4. HEENT: Normocephalic. CHEST: Diminished breath sounds over the bases. HEART: S1 and S2 regular. ABDOMEN: Soft. EXTREMITIES: 2+ pitting edema. LABORATORY DATA: Today's hemoglobin and hematocrit 9.5 and 29.6, white count 17.1, platelet count 174,000. Today's SMA-7 is within normal limit except for glucose of 152 and anion gap of 8. Venous Doppler of the lower extremity: No sonographic evidence of DVT in the visualized segments of both lower extremities. ASSESSMENT: 1. Chronic atrial fibrillation. 2. Rule out underlying sepsis. Blood culture is negative after 3 days. 3. Mild anemia. 4. Improved hypotension. 5. Severe pulmonary hypertension and right heart failure. 6. Severe mitral insufficiency. RECOMMENDATIONS: Continue Coumadin 3 mg orally daily. Today's INR is 2.71. Continue metformin 1 g twice a day. Synthroid 25 mcg once a day, vancomycin 1.5 mg intravenously every 12 hours. I ordered 0.125 mg of IV digoxin to be given today. João Segundo MD
[2018-06-06] MEDS: Albuterol-Ipratrop 3 mg / 0.5 (3 ml) UD IH SCH ×4 (02:42→20:09)
[2018-06-06] MEDS: Meropenem IV 1 gm in NS 1 GM/50 ML BAG IVPB SCH ×3 (06:12→22:13)
[2018-06-06] MEDS: Vancomycin 1.5 GM in Sodium Chloride 0.9% 500 ML IVPB SCH ×2 (06:12→18:36)
[2018-06-06] MEDS: Benzocaine/Menthol (Cepacol) Lozenge MT PRN ×2 (06:17→22:21)
[2018-06-06 07:02] LABS: BASO # 0.07 K/mm3 (0.0-2.0); BASO % 0.3 % (0.0-3.0); EOS # 0.5 (0.0-0.7); EOS % 2.3 % (1.5-5.0); GRAN # 17.72 (1.4-6.5); HEMOGLOBIN 9.4 g/dL (12.0-16.0); LYMPH # 1.4 (1.2-3.4); LYMPH % 6.6 % (22.0-35.0); MEAN CELL VOLUME 82.8 fl (80.0-105.0); MEAN CORPUSCULAR HEMOGLOBIN 26.1 pg (25.0-35.0); MEAN CORPUSCULAR HGB CONC 31.5 g/dl (31.0-37.0); MEAN PLATELET VOLUME 11.1 fl (7.0-11.0); MONO # 0.8 (0.1-0.6); MONO % 3.8 % (1.0-6.0); RBC 3.6 10^6/uL (3.5-6.1); RED CELL DISTRIBUTION WIDTH 16.7 % (11.5-14.5); WHITE BLOOD COUNT 20.4 10^3/ul (4.5-11.0)
[2018-06-06 07:03] LABS: ALB/GLOB RATIO 0.7 (1.1-1.8)
[2018-06-06 07:11] LABS: ALBUMIN 2.3 g/dL (3.0-4.8); ALT/SGPT 21 U/L (7-56); AST/SGOT 15 U/L (14-36); BLOOD UREA NITROGEN 18 mg/dL (7-21); CALCIUM 8.1 mg/dL (8.4-10.5); GFR NON-AFRICAN AMERICAN > 60
[2018-06-06] MEDS: Budesonide 0.5 mg/2 ml Inhal Susp UD IH SCH ×2 (07:27→20:09)
[2018-06-06 07:41] LABS: PROTHROMBIN TIME 37.5 SECONDS (9.4-12.5)
[2018-06-06 07:42] LABS: INR 3.18
--- NOTE | 2018-06-06 09:05 | PN ---
DATE: 06/06/2018 PULMONARY NOTE SUBJECTIVE: The patient appears comfortable this morning. She is not short of breath at rest. PHYSICAL EXAMINATION: VITAL SIGNS: (Last noted in the computer): Temperature is 98.5, pulse is 100, respirations 16, blood pressure 98/66. Oxygen saturation on nasal cannula is 98%. HEENT: Normocephalic, atraumatic. No JVD. CARDIOVASCULAR: Systolic ejection murmur at the lower left sternal border. No S3 gallop. LUNGS: Decreased breath sounds at the bases. Minimal/less rhonchi. No wheezing. EXTREMITIES: Positive for edema. No cyanosis or clubbing. Calves are nontender to palpation. GI: Abdomen is soft, nontender and nondistended. Bowel sounds are positive. SKIN: Bilateral lower extremity cellulitis - improving. NEUROLOGIC: Limited at the present time. IMPRESSION: 1. Sepsis syndrome. 2. Bilateral cellulitis. 3. Chronic obstructive pulmonary disease. 4. Asthma. 5. Anemia. PLAN: The patient appears comfortable this morning. She is not short of breath at rest. She does state to feeling much better overall. I did discuss the case with the night nurse at length. The night nurse stated that the patient had a very good night. On physical exam, her bronchospasm continues to slowly resolve. In addition, there is no significant alveolar-arterial gradient. I will continue the current nebulizer treatments and inhaled steroids for now. Inputs by Cardiology, Surgery, and Infectious Disease are noted. There are no temperatures noted. Repeat a.m. labs are pending. Clinical status of the patient is significantly improved - compared to her initial presentation. However, the future status/prognosis for this patient does remain very guarded/poor. I will discuss the above with the entire ICU team in the next few moments. I will also discuss the above with Dr. Mann later this morning. Ke Farooq MD ANUP
--- NOTE | 2018-06-06 09:11 | PN ---
DATE: 06/06/2018 SUBJECTIVE: The patient is in bed, in no acute distress and nontoxic. She is awake and alert . Her is at the bedside. PHYSICAL EXAMINATION: VITAL SIGNS: Temperature is 98, blood pressure is 98/60, respiratory rate of 18, heart rate of 100. HEENT: Examination of HEENT is unremarkable. NECK: Supple. LUNGS: Have decreased breath sounds. HEART: Normal S1, S2. ABDOMEN: Soft, nontender. LABORATORY DATA: Laboratory examination reveals a white count of 20,000, hemoglobin of 9, platelets of 310. Chemistries reveals a BUN of 18, creatinine of 0.7. Serology is negative and microbiology, MRSA is not detected. Blood cultures are negative. Urine cultures are negative. ASSESSMENT AND PLAN: A 73-year-old with super morbid obesity, body mass index of 81, coronary artery disease, congestive heart failure, diabetes mellitus, atrial fibrillation, chronic lymphedema, chronic obstructive lung disease, home O2 therapy, lymphedema with severe sepsis, bilateral lower extremity cellulitis versus healthcare-associated pneumonia, on day #5 of meropenem with difficulty to evaluate this patient's skin entirely due to super morbid obesity and white count elevated today, body mass index of 81, on vancomycin, meropenem. We will follow with you. Santy Fernandez MD
[2018-06-06] MEDS: Insulin Reg-MEDIUM-Coverage SC SCH ×4 (09:52→22:10)
[2018-06-06] MEDS: Levothyroxine 25 MCG TAB PO SCH (09:56)
[2018-06-06] MEDS: Pantoprazole 40 mg EC Tab PO SCH ×2 (09:56→17:14)
[2018-06-06] MEDS: Nystatin 100,000 Units/ml Oral Susp 5 ml UD PO SCH ×4 (09:57→22:14)
[2018-06-06] MEDS ORDERED: Digoxin 500 mcg/2ml (0.5 mg/2ml) Inj IVP ONE (13:53)
--- NOTE | 2018-06-06 14:09 | PN ---
DATE: 06/06/2018 CARDIOLOGY FOLLOWUP HISTORY: The patient is a 73-year-old woman who presents with sepsis of unknown origin. The patient is a 73-year-old woman with one of multiple admissions. She suffers from morbid obesity, severe pulmonary hypertension, COPD, diabetes mellitus. Her LV function has always been normal. She suffers from chronic edema in the lower extremities. SOCIAL HISTORY: The patient is bed-bound. REVIEW OF SYSTEMS: Fourteen-point review of systems is reviewed. Intermittent palpitations, chronic atrial fibrillation, and intermittent dizziness are notable. She has a history of normal LV functions on multiple measurements. PHYSICAL EXAMINATION: VITAL SIGNS: Blood pressure is 150/90, the heart rate is atrial fibrillation at 112, respiratory rate is 25. NECK: Negative JVD. LUNGS: Decreased breath sounds. HEART: Reveals S1, S2. EXTREMITIES: Chronic lymphedema with marked chronic edema noted. EKG shows atrial fibrillation with nonspecific ST-T changes. LABORATORY DATA: Hemoglobin is 9.4 with a white count of 20. BUN and creatinine are unremarkable. Glucose is 153. IMPRESSION: 1. Sepsis. 2. Chronic atrial fibrillation. 3. Moderate to severe pulmonary hypertension. 4. Morbid obesity. 5. Diabetes mellitus. 6. Chronic obstructive pulmonary disease. 7. History of normal left ventricular function. PLAN: Given these findings, we will restart her back on her Cardizem along with her digoxin for better heart rate control. Ryan Turk MD
--- NOTE | 2018-06-06 14:49 | PN ---
DATE: 06/06/2018 SUBJECTIVE: I saw her resting comfortably in bed. She is still in the intensive care unit. We are trying to get her to telemetry. She is alert. She is not feeling well overall, just not herself. She is trying to eat better. Her throat is getting little bit better. Breathing well. PHYSICAL EXAMINATION: VITAL SIGNS: Temperature 98.6, pulse 106, blood pressure 98/60, respiratory rate 20. HEENT: Head is atraumatic, normocephalic. HEART: Regular rate. LUNGS: Decreased breath sounds but clear. Poor inspiration with no wheezes, rhonchi or rales. ABDOMEN: Soft, morbidly obese, nontender. Positive bowel sounds. EXTREMITIES: Extremely swollen. Bilateral thighs also with ulcers and wounds and bandages. MEDICATIONS: She is currently on Cepacol, Coumadin, DuoNebs, Glucophage, insulin, Levophed, diphenhydramine, Merrem IV, nystatin, Protonix, Pulmicort, Silvadene cream, Synthroid, Tylenol, vancomycin IV and Zofran. LABORATORY DATA: She has an 137 sodium, potassium 3.7, BUN 18, creatinine 0.7, sugar is 153, calcium 8.1, total bili is 0.5, AST is 15, ALT is 21, alk phos 134, total protein 5.6. White count is 20.4 that went up that bothers me. She got as low as 15 after up to 20. Hemoglobin 9.4, hematocrit 29.8, platelets are 310. ASSESSMENT AND PLAN: She is just not doing well yet. Her last INR 3.18. I will hold the Coumadin today. We will check her labs tomorrow. She is being seen by pulmonary, cardiology, infectious disease and surgery. She is on my worry list. She is having a bad severe sepsis, congestive heart failure, and chronic obstructive pulmonary disease. Alan Mann DO MTDD
[2018-06-06] MEDS: Silver Sulfadiazine 1% Cream (400 gm) TOP SCH (18:35)
[2018-06-07] MEDS: Albuterol-Ipratrop 3 mg / 0.5 (3 ml) UD IH SCH ×4 (04:53→20:10)
[2018-06-07] MEDS: Benzocaine/Menthol (Cepacol) Lozenge MT PRN ×2 (05:53→10:25)
[2018-06-07] MEDS: Vancomycin 1.5 GM in Sodium Chloride 0.9% 500 ML IVPB SCH ×2 (05:53→17:43)
[2018-06-07] MEDS: Meropenem IV 1 gm in NS 1 GM/50 ML BAG IVPB SCH ×3 (05:54→23:02)
[2018-06-07 06:33] LABS: ALB/GLOB RATIO 0.7 (1.1-1.8); ALBUMIN 2.2 g/dL (3.0-4.8); ALT/SGPT 20 U/L (7-56); AST/SGOT 23 U/L (14-36); BLOOD UREA NITROGEN 16 mg/dL (7-21); GFR NON-AFRICAN AMERICAN > 60
[2018-06-07 06:46] LABS: PROTHROMBIN TIME 43.6 SECONDS (9.4-12.5)
[2018-06-07 06:48] LABS: INR 3.69
[2018-06-07 06:58] LABS: BASO # 0.03 K/mm3 (0.0-2.0); BASO % 0.1 % (0.0-3.0); EOS # 0.4 (0.0-0.7); EOS % 1.8 % (1.5-5.0); GRAN # 19.14 (1.4-6.5); GRAN % 88.3 % (50.0-68.0); HEMOGLOBIN 9.2 g/dL (12.0-16.0); LYMPH # 1.1 (1.2-3.4); MEAN CELL VOLUME 82.4 fl (80.0-105.0); MEAN CORPUSCULAR HEMOGLOBIN 26.1 pg (25.0-35.0); MEAN CORPUSCULAR HGB CONC 31.7 g/dl (31.0-37.0); MEAN PLATELET VOLUME 10.6 fl (7.0-11.0); MONO % 4.8 % (1.0-6.0); PLATELET COUNT 326 10^3/uL (120.0-450.0); RBC 3.52 10^6/uL (3.5-6.1); RED CELL DISTRIBUTION WIDTH 16.8 % (11.5-14.5); WHITE BLOOD COUNT 21.7 10^3/ul (4.5-11.0)
[2018-06-07] MEDS ORDERED: Sodium Chloride 0.9% 1,000 ML IV STA (07:37)
--- NOTE | 2018-06-07 07:44 | PN ---
DATE: 06/07/2018 PULMONARY NOTE SUBJECTIVE: The patient appears comfortable this morning. She is not short of breath at rest. PHYSICAL EXAMINATION: VITAL SIGNS: Temperature is 98.2, pulse is 94, respiratory rate 16-18, blood pressure 96/50. Oxygen saturation on nasal cannula is 98%. HEENT: Normocephalic, atraumatic. No JVD. CARDIOVASCULAR: Systolic ejection murmur at the lower left sternal border. No S3 gallop. LUNGS: Decreased breath sounds at the bases. Minimal/less rhonchi. No wheezing. EXTREMITIES: Less edema. No cyanosis or clubbing. Calves are nontender to palpation. GASTROINTESTINAL: Abdomen is soft, nontender, and nondistended. Bowel sounds are positive. SKIN: Bilateral lower extremity cellulitis - improving. NEUROLOGIC: Limited at the present time. IMPRESSION: 1. Sepsis syndrome. 2. Bilateral cellulitis. 3. Chronic obstructive pulmonary disease. 4. Asthma. 5. Anemia. PLAN: The patient appears comfortable this morning. She is not short of breath at rest. She does state to feeling much better overall. I did discuss the case with the night nurse at length. The night nurse stated that the patient had a good night. On physical exam, her bronchospasm continues to resolve. In addition, the oxygen saturation on nasal cannula is now 98%. I will continue with the current nebulizer treatments and inhaled steroids for now. The patient remains on antibiotic therapy - as per Infectious Disease. Inputs by Cardiology and Internal Medicine are also noted. Clinical status of the patient is certainly improved - compared to initial presentation. However, again, the future status/prognosis for this chronically ill patient does remain very guarded/poor. I will discuss the above with the entire ICU team in the next few moments. I will also discuss the above with the attending physician. Ke Farooq MD MTDD
[2018-06-07 08:08] LABS: BAND 1 % (0-2); EOSINOPHIL 1 % (0.0-3.0); LYMPHOCYTE 5 % (22.0-35.0); MONOCYTE 2 % (1.0-6.0); NEUTROPHIL 91 % (50.0-70.0)
[2018-06-07 08:09] LABS: PLATELET ESTIMATE NORMAL (NORMAL)
[2018-06-07] MEDS: Insulin Reg-MEDIUM-Coverage SC SCH ×4 (08:18→22:46)
[2018-06-07] MEDS: Budesonide 0.5 mg/2 ml Inhal Susp UD IH SCH ×2 (08:58→20:10)
--- NOTE | 2018-06-07 09:29 | PN ---
DATE: 06/07/2018 SUBJECTIVE: The patient is in bed in no acute distress. The patient is seen earlier this morning. PHYSICAL EXAMINATION: VITAL SIGNS: On exam, temperature is 98, blood pressure is 86/50, respiratory rate of 22, heart rate of 109. HEENT: Examination of HEENT is unremarkable. NECK: Supple. LUNGS: Have decreased breath sounds. HEART: Normal S1, S2. ABDOMEN: Soft. LABORATORY EXAMINATION: Reveals the patient's white count is of 21,000, hemoglobin of 9, platelets of 326. Chemistries reveals a BUN of 16, creatinine of 0.7. The BNP is 4310. Urinalysis is noted and serology is noted. Microbiology reveals blood cultures are negative. Nasal MRSA is negative. Urine cultures are negative and review of orders reveals the patient on meropenem day #6 which requires renewal, which I will do so and vancomycin also day #6 which I will do so. ASSESSMENT AND PLAN: A 73-year-old female with super morbid obesity, body mass index of 81, coronary artery disease, congestive heart failure, diabetes mellitus, atrial fibrillation, chronic lymphedema, chronic obstructive lung disease and home O2 therapy, lymphedema with severe sepsis with bilateral lower extremity cellulitis versus healthcare-associated pneumonia, on meropenem and vancomycin day #6. We will order a vancomycin trough level today's 06:00 p.m. dose, an hour before at 5 o'clock. Overall prognosis quite poor. It is very difficult to examine the patient's skin fully because of the enormous size and we will follow with you. Santy Fernandez MD
[2018-06-07] MEDS: Silver Sulfadiazine 1% Cream (400 gm) TOP SCH ×2 (10:00→17:48)
[2018-06-07] MEDS ORDERED: Alum-Mag Hydrox-Simethicone Susp (30 mL) ONE (10:24)
[2018-06-07] MEDS: Nystatin 100,000 Units/ml Oral Susp 5 ml UD PO SCH ×4 (10:25→23:03)
[2018-06-07] MEDS: Levothyroxine 25 MCG TAB PO SCH (10:26)
[2018-06-07] MEDS: Pantoprazole 40 mg EC Tab PO SCH ×2 (10:29→17:44)
--- NOTE | 2018-06-07 14:16 | RAD ---
Date of service: 06/07/2018 HISTORY: PICC placement verification COMPARISON: No prior. FINDINGS: LUNGS: Bilateral interstitial changes likely representing fibrosis. PLEURA: No significant pleural effusion identified, no pneumothorax apparent. CARDIOVASCULAR: No aortic atherosclerotic calcification present. Normal cardiac size. No pulmonary vascular congestion. OSSEOUS STRUCTURES: No significant abnormalities. VISUALIZED UPPER ABDOMEN: Normal. OTHER FINDINGS: Left PICC line has tip overlying the SVC/right atrial junction. IMPRESSION: Left PICC line has tip overlying the SVC/right atrial junction. No pneumothorax.
--- NOTE | 2018-06-07 20:54 | PN ---
DATE: 06/07/2018 SUBJECTIVE: I saw Maria Isabel Bowden in the intensive care unit. She is alert. She is having some blood pressure problems. I had 3 communications with the resident about the low blood pressure as low as 60s. They gave her a dose of Levophed and went back up to 90. She is still very brittle as far as her blood pressure. When it is above 90, I will take it. She is off the Levophed right now. She is being seen by Pulmonary, Cardio. Pulmonary feels she is doing better. Infectious Disease has her on IV antibiotics. She is worried about her infection. PHYSICAL EXAMINATION VITAL SIGNS: She has a 98.8 temp; 110 pulse; 19 respiratory rate; 96/48 blood pressure, did drop to the 60s this morning. Now, it is a little bit better. She has a 93 O2 sat on 2 L. HEENT: Head is atraumatic, normocephalic. HEART: Regular rate. LUNGS: Decreased breath sounds, but clear. ABDOMEN: Morbidly obese, soft, nontender. Positive bowel sounds. EXTREMITIES: Also quite swollen and lateral sides have ulcers with oozing, which are being treated by Surgery. MEDICATIONS: She is currently on Cepacol, Coumadin, DuoNebs, Glucophage, Levophed. At this time, she is back on it. Lidoderm; mouthwash for the throat, she had thrush; Merrem; also nystatin oral suspension; Protonix; Pulmicort; Silvadene cream; levothyroxine; Tylenol; vancomycin IV; and Zofran. LABORATORY DATA: She has a 21.7 white count, still quite elevated; 9.2 hemoglobin; 29 hematocrit with 326 platelets. INR is up to 3.69, I will hold the Coumadin today. Blood sugars have been elevating to 234. She has a 136 sodium, potassium 3.7, BUN 16, creatinine 0.7, GFR is greater than 60, sugar is 136 right now, total bili is 0.3, AST is 23, ALT is 20, alk phos 130, BNP is high at 4310. ASSESSMENT AND PLAN: She has had a few problems going on. She is on IV antibiotics as per Infectious Disease. We are trying to get the white count down, it is still above 20. She is morbidly obese. She has congestive heart failure, coronary artery disease, diabetes, atrial fibrillation, chronic lymphedema, chronic obstructive pulmonary disease, oxygen at home. She has severe sepsis and bilateral lower extremity cellulitis versus healthcare-acquired pneumonia. She is on day 5 of Merrem. I am not sure how long she has to be on Merrem. There was a question about putting a peripherally inserted central catheter line in, but she has a central line, so we could use the central line for now. She is on Levophed right now for her low blood pressure. We will check her labs tomorrow. I would continue with ICU care while she is going back and forth with blood pressure issues on Levophed as per Infectious Disease and Cardiology in the Intensive care unit. I answered many questions from the and the . They are very concerned and hopefully, she will turn the corner and improve. Alan Mann DO
[2018-06-07] MEDS: NOREPINEPHRINE BIT/0.9 % NACL 4 MG/250 ML BAG IV PRN (23:03)
[2018-06-08] MEDS: Albuterol-Ipratrop 3 mg / 0.5 (3 ml) UD IH SCH ×4 (01:27→20:35)
[2018-06-08] MEDS: Meropenem IV 1 gm in NS 1 GM/50 ML BAG IVPB SCH ×3 (06:14→22:47)
[2018-06-08] MEDS: Vancomycin 1.5 GM in Sodium Chloride 0.9% 500 ML IVPB SCH (06:15)
[2018-06-08 06:27] LABS: BASO # 0.04 K/mm3 (0.0-2.0); BASO % 0.2 % (0.0-3.0); EOS # 0.4 (0.0-0.7); EOS % 1.6 % (1.5-5.0); GRAN # 19.6 (1.4-6.5); GRAN % 85.2 % (50.0-68.0); HEMOGLOBIN 9.6 g/dL (12.0-16.0); LYMPH # 1.5 (1.2-3.4); LYMPH % 6.6 % (22.0-35.0); MEAN CELL VOLUME 82.6 fl (80.0-105.0); MEAN CORPUSCULAR HEMOGLOBIN 26.5 pg (25.0-35.0); MEAN CORPUSCULAR HGB CONC 32.1 g/dl (31.0-37.0); MEAN PLATELET VOLUME 10.4 fl (7.0-11.0); MONO # 1.5 (0.1-0.6); MONO % 6.4 % (1.0-6.0); RBC 3.62 10^6/uL (3.5-6.1); RED CELL DISTRIBUTION WIDTH 16.9 % (11.5-14.5)
[2018-06-08 06:41] LABS: ALB/GLOB RATIO 0.7 (1.1-1.8); ALBUMIN 2.3 g/dL (3.0-4.8); ALT/SGPT 21 U/L (7-56); AST/SGOT 17 U/L (14-36); BLOOD UREA NITROGEN 15 mg/dL (7-21); GFR NON-AFRICAN AMERICAN > 60
--- NOTE | 2018-06-08 07:15 | PN ---
DATE: 06/08/2018 PULMONARY NOTE SUBJECTIVE: The patient appears comfortable this morning. She is not short of breath at rest. PHYSICAL EXAMINATION: VITAL SIGNS: Last temperature recorded is 98.4, pulse this morning is 101, respiratory rate 18-20, blood pressure 94/46. Oxygen saturation on nasal cannula is 97%. HEENT: Normocephalic, atraumatic. No JVD. CARDIOVASCULAR: Systolic ejection murmur at the lower left sternal border. No S3 gallop. LUNGS: Decreased breath sounds at the bases. Very minimal/less rhonchi. No wheezing. EXTREMITIES: Less edema. No cyanosis or clubbing. Calves are nontender to palpation. GASTROINTESTINAL: Abdomen is soft, nontender, and nondistended. Bowel sounds are positive. SKIN: Bilateral lower extremity cellulitis - improving. NEUROLOGIC: Limited at the present time. IMPRESSION: 1. Sepsis syndrome. 2. Bilateral cellulitis. 3. Chronic obstructive pulmonary disease. 4. Asthma. 5. Anemia. PLAN: The patient appears comfortable this morning. She is not short of breath at rest. She does state to feeling much better overall. I did discuss the case with the night nurse at length. The night nurse stated that the patient had a very good night. On physical exam, there is only minimal bronchospasm noted. In addition, there is no significant alveolar-arterial gradient. I will continue with the current nebulizer treatments and inhaled steroids for now. The patient remains on antibiotic therapy - as per Infectious Disease. Input by Dr. Fernandez is noted. There are no temperatures noted. However, there is a significant leukocytosis. Inputs by Cardiology and Internal Medicine are also noted. Clinical status of the patient is certainly improved - compared to the initial presentation. However, again, the future status/prognosis for this patient does remain very guarded/poor. All are aware. I will discuss the above with the entire ICU team in the next few moments. I will also discuss the above with Dr. Mann. Ke Farooq MD ANUP
[2018-06-08] MEDS: Insulin Reg-MEDIUM-Coverage SC SCH ×4 (07:30→22:00)
[2018-06-08] MEDS: Budesonide 0.5 mg/2 ml Inhal Susp UD IH SCH ×2 (07:39→20:35)
[2018-06-08] MEDS ORDERED: Vancomycin 1gm in NS 250ml 1 GM/250 ML BAG IVPB SCH (10:00)
--- NOTE | 2018-06-08 10:21 | PN ---
DATE: 06/08/2018 SUBJECTIVE: The patient is in bed, in no acute distress, nontoxic. PHYSICAL EXAMINATION: VITAL SIGNS: On exam, temperature is 98, blood pressure is 94/40, respiratory rate of 23, heart rate of 111. HEENT: Examination of HEENT is unremarkable. NECK: Supple. LUNGS: Have decreased breath sounds. HEART: Normal S1, S2. ABDOMEN: Soft, nontender. LABORATORY DATA: Laboratory examination reveals the patient's white count of 23,000 and BUN of 15, creatinine of 0.6, procalcitonin of 4.95 on 06/02/2018. Urinalysis is noted. Vanco trough level of 26.5. ASSESSMENT AND PLAN: A 73-year-old female with super morbid obesity with body mass index of 81, coronary artery disease, congestive heart failure, diabetes, atrial fibrillation, chronic lymphedema, chronic obstructive lung disease, on home O2 therapy with lymphedema, admitted with severe sepsis, bilateral lower extremity cellulitis versus healthcare-associated pneumonia. On vancomycin and meropenem day #7 with a vancomycin trough of 26. We will decrease the dose to 1 g every 12. We will also order an abdominal ultrasound at the bedside. Due to her extreme size, unable to get a CT scan of anything. We will follow WBCs. Santy Fernandez MD
--- NOTE | 2018-06-08 13:02 | PN ---
DATE: 06/08/2018 CARDIOLOGY FOLLOWUP SUBJECTIVE: The patient is awake, alert, complaining of mild nausea. PHYSICAL EXAMINATION: VITAL SIGNS: Blood pressure is stable, heart rate is in the 90s-100. NECK: Negative JVD. LUNGS: Decreased breath sounds. HEART: Reveals S1, S2. EXTREMITIES: Chronic edema. LABORATORY DATA: Glucose is 126. BUN and creatinine are unremarkable. Hemoglobin is 9.6 with a white count of 23,000. IMPRESSION: 1. Resolution of hypotension. 2. History of pulmonary hypertension. 3. Morbid obesity. 4. History of normal LV function. 5. Chronic edema. 6. Sepsis. PLAN: Given these findings, the patient is hemodynamically stable at this time. Her pressure has rebounded well. The patient is scheduled for ultrasound to evaluate her nausea. Ryan Turk MD
--- NOTE | 2018-06-08 13:17 | CP.PCM.CON ---
<Birdie Hurd - Last Filed: 06/08/18 13:13> History of Present Illness - History of Present Illness History of Present Illness: Podiatry Consult Note for Dr. Goode 73 yo female in the [facility] seen and evaluated for elongated dystrophic nails and xerotic skin to plantar aspect of feet bilaterally. Patient is resting comfortably in bed and in NAD. Patient states the toes are very painful because of the nails. ALL: NKDA Past Patient History - Infectious Disease Hx of Infectious Diseases: None - Tetanus Immunizations Tetanus Immunization: Unknown - Past Social History Smoking Status: Never Smoked - CARDIAC Hx Pacemaker: No - PULMONARY Hx Respiratory Disorders: Yes (using 02 at home/ nebulizer machine) Hx Asthma: Yes Hx Chronic Obstructive Pulmonary Disease (COPD): Yes Hx Emphysema: Yes Hx Pneumonia: Yes - NEUROLOGICAL Hx Neurological Disorder: No - HEENT Hx HEENT Problems: Yes (glasses) Other/Comment: thrush to oral cavity and tongue - RENAL Hx Chronic Kidney Disease: No - ENDOCRINE/METABOLIC Hx Endocrine Disorders: Yes Hx Diabetes Mellitus Type 2: Yes - HEMATOLOGICAL/ONCOLOGICAL Hx Cancer: No - INTEGUMENTARY Hx Dermatological Problems: Yes (chronic venous stasis dermatitis ble) Other/Comment: pt is obese, right outer thigh skin openings healed, redness, hard brown dry skin, dimpling to left thigh, pt c/o that she, sometimes has drainage from left thigh. both lower legs and feet dry skin. redness and discoloration to right abd fold healed, pt unable to turn in bed to assess skin on back, ble +4 pitting edema redness - MUSCULOSKELETAL/RHEUMATOLOGICAL Hx Musculoskeletal Disorders: Yes Hx Falls: No Hx Unsteady Gait: Yes (bedbound) - GASTROINTESTINAL Hx Gastrointestinal Disorders: Yes (benign mass removed from abd 30 yrs ago) Other/Comment: morbid obesity - GENITOURINARY/GYNECOLOGICAL Hx Genitourinary Disorders: Yes Hx Incontinence: Yes (urine and stool) Hx Urinary Tract Infection: Yes - PSYCHIATRIC Hx Psychophysiologic Disorder: No Hx Substance Use: No - SURGICAL HISTORY Hx Mastectomy: No - ANESTHESIA Hx Anesthesia: Yes Meds Allergies/Adverse Reactions: Allergies Allergy/AdvReac Type Severity Reaction Status Date / Time No Known Allergies Allergy Verified 04/26/18 06:48 - Medications Medications: Current Medications Acetaminophen (Tylenol 325mg Tab) 650 mg PO Q6H PRN PRN Reason: Pain, moderate (4-7) Albuterol/Ipratropium (Duoneb 3 Mg/0.5 Mg (3 Ml) Ud) 3 ml IH [id number] [facility] Last Admin: 06/08/18 13:04 Dose: 3 ml Benzocaine/Menthol (Cepacol Sore Throat) 1 rosa MT Q2H PRN PRN Reason: Sore Throat Last Admin: 06/07/18 10:25 Dose: 1 rosa Budesonide (Pulmicort Respules) 0.5 mg IH [id number] [facility] Last Admin: 06/08/18 07:39 Dose: Not Given Al Hydrox/Mg Hydrox/Simethicone 30 ml/Diphenhydramine HCl 75 mg/Lidocaine 30 ml 0 ml PO Q2H PRN PRN Reason: Mouth/Throat Pain Last Admin: 06/07/18 10:25 Dose: 30 susp NOREPINEPHRINE BIT/0.9 % NACL (Levophed 4 Mg/ 250 Ml Ns Premixed) 4 mg in 250 mls @ 15 mls/hr IV .[id number] PRN; Protocol PRN Reason: TITRATE PER MD ORDER Last Admin: 06/07/18 23:03 Dose: 4 mcg/min, 15 mls/hr Meropenem (Merrem Iv 1 Gm Premix) 1 gm in 50 mls @ 100 mls/hr IVPB Q8 [facility]ONI; Protocol Stop: 06/11/18 10:43 Last Admin: 06/08/18 06:14 Dose: 100 mls/hr Vancomycin HCl (Vancomycin 1gm) 1 gm in 250 mls @ 167 mls/hr IVPB 0600,1800 RONI; Protocol Insulin Human Regular (Humulin R Med) 0 units SC ACHS [facility]; Protocol Last Admin: 06/08/18 07:30 Dose: Not Given Levothyroxine Sodium (Synthroid) 25 mcg PO DAILY [facility] Last Admin: 06/07/18 10:26 Dose: 25 mcg Metformin HCl (Glucophage) 1,000 mg PO BID [facility] Last Admin: 06/07/18 18:03 Dose: Not Given Nystatin (Nystatin Oral Susp) 5 ml PO QID [facility] Last Admin: 06/07/18 23:03 Dose: 5 ml Ondansetron HCl (Zofran Inj) 4 mg IVP Q6H PRN PRN Reason: Nausea/Vomiting Pantoprazole Sodium (Protonix Ec Tab) 40 mg PO BID [facility] Last Admin: 06/07/18 17:44 Dose: 40 mg Silver Sulfadiazine (Silvadene 1%) 0 ea TOP BID [facility] Last Admin: 06/07/18 17:48 Dose: 1 g Physical Exam - Constitutional Appears: Well, Non-toxic, No Acute Distress - Head Exam Head Exam: ATRAUMATIC, NORMOCEPHALIC - Extremities Exam Additional comments: LE focused exam: Vascular: DP/PT nonpalpable, CFT < 3 seconds to all digits, pedal hair diminished, +3 pitting edema noted to b/l lower extremities Ortho: tenderness on palpation to all toes and foot. Neuro: Gross sensation intact, unable to assess for protective sensation Derm: Elongated, mycotic, dystrophic nails x10. no IDM, no open lesions, no clinical signs of infection. - Neurological Exam Neurological exam: Alert, Oriented x3 - Psychiatric Exam Psychiatric exam: Normal Affect - Skin Skin Exam: Normal Color Results - Vital Signs Recent Vital Signs: Last Vital Signs Temp 98.6 F 06/08/18 04:00 Pulse 108 H 06/08/18 11:28 Resp 15 06/08/18 11:28 BP 99/52 L 06/08/18 11:00 Pulse Ox 97 06/08/18 01:30 - Labs Result Diagrams: 06/08/18 06:00 06/08/18 06:00 Labs: Laboratory Results - last 24 hr 06/07/18 06/07/18 06/07/18 15:51 18:08 21:55 WBC RBC Hgb Hct MCV MCH MCHC RDW Plt Count MPV Gran % Lymph % (Auto) [place] % (Auto) Eos % (Auto) Baso % (Auto) Gran # Lymph # (Auto) [place] # (Auto) Eos # (Auto) Baso # (Auto) Sodium Potassium Chloride Carbon Dioxide Anion Gap BUN Creatinine Est GFR ( Amer) Est GFR (Non-Af Amer) POC Glucose (mg/dL) 111 H 102 Random Glucose Calcium Total Bilirubin AST ALT Alkaline Phosphatase Total Protein Albumin Globulin Albumin/Globulin Ratio Vancomycin Trough 26.5 H* 06/08/18 06/08/18 06:00 06:00 WBC 23.0 H RBC 3.62 Hgb 9.6 L Hct 29.9 L MCV 82.6 MCH 26.5 MCHC 32.1 RDW 16.9 H Plt Count 402 MPV 10.4 Gran % 85.2 H Lymph % (Auto) 6.6 L [place] % (Auto) 6.4 H Eos % (Auto) 1.6 Baso % (Auto) 0.2 Gran # 19.60 H Lymph # (Auto) 1.5 [place] # (Auto) 1.5 H Eos # (Auto) 0.4 Baso # (Auto) 0.04 Sodium 136 Potassium 3.9 Chloride 104 Carbon Dioxide 28 Anion Gap 8 L BUN 15 Creatinine 0.6 L Est GFR ( Amer) > 60 Est GFR (Non-Af Amer) > 60 POC Glucose (mg/dL) Random Glucose 126 H Calcium 8.0 L Total Bilirubin 0.4 AST 17 ALT 21 Alkaline Phosphatase 137 H Total Protein 5.5 L Albumin 2.3 L Globulin 3.2 Albumin/Globulin Ratio 0.7 L Vancomycin Trough Assessment & Plan - Assessment and Plan (Free Text) Assessment: 73 yo female patientseen and evaluated for elongated dystrophic painful nails. Plan: Patient seen and evaluated Patient plan discussed in detail with Dr. Goode Afebrile/Absent leukocytosis Elongated, dystrophic nails debrided with a large nail nipper to patient tolerance without incident. Podiatry to sign off at this time Thank you for the consult <Dionicio Goode - Last Filed: 06/08/18 15:04> Meds - Medications Medications: Current Medications Acetaminophen (Tylenol 325mg Tab) 650 mg PO Q6H PRN PRN Reason: Pain, moderate (4-7) Albuterol/Ipratropium (Duoneb 3 Mg/0.5 Mg (3 Ml) Ud) 3 ml IH [id number] [facility] Last Admin: 06/08/18 13:04 Dose: 3 ml Benzocaine/Menthol (Cepacol Sore Throat) 1 rosa MT Q2H PRN PRN Reason: Sore Throat Last Admin: 06/07/18 10:25 Dose: 1 rosa Budesonide (Pulmicort Respules) 0.5 mg IH [id number] [facility] Last Admin: 06/08/18 07:39 Dose: Not Given Al Hydrox/Mg Hydrox/Simethicone 30 ml/Diphenhydramine HCl 75 mg/Lidocaine 30 ml 0 ml PO Q2H PRN PRN Reason: Mouth/Throat Pain Last Admin: 06/07/18 10:25 Dose: 30 susp NOREPINEPHRINE BIT/0.9 % NACL (Levophed 4 Mg/ 250 Ml Ns Premixed) 4 mg in 250 mls @ 15 mls/hr IV .[id number] PRN; Protocol PRN Reason: TITRATE PER MD ORDER Last Admin: 06/07/18 23:03 Dose: 4 mcg/min, 15 mls/hr Meropenem (Merrem Iv 1 Gm Premix) 1 gm in 50 mls @ 100 mls/hr IVPB Q8 [facility]; Protocol Stop: 06/11/18 10:43 Last Admin: 06/08/18 13:37 Dose: 100 mls/hr Vancomycin HCl (Vancomycin 1gm) 1 gm in 250 mls @ 167 mls/hr IVPB 0600,1800 [facility]; Protocol Insulin Human Regular (Humulin R Med) 0 units SC ACHS [facility]; Protocol Last Admin: 06/08/18 11:30 Dose: Not Given Levothyroxine Sodium (Synthroid) 25 mcg PO DAILY [facility] Last Admin: 06/07/18 10:26 Dose: 25 mcg Metformin HCl (Glucophage) 1,000 mg PO BID [facility] Last Admin: 06/08/18 13:15 Dose: Not Given Nystatin (Nystatin Oral Susp) 5 ml PO QID [facility] Last Admin: 06/07/18 23:03 Dose: 5 ml Ondansetron HCl (Zofran Inj) 4 mg IVP Q6H PRN PRN Reason: Nausea/Vomiting Pantoprazole Sodium (Protonix Ec Tab) 40 mg PO BID [facility] Last Admin: 06/07/18 17:44 Dose: 40 mg Silver Sulfadiazine (Silvadene 1%) 0 ea TOP BID [facility] Last Admin: 06/07/18 17:48 Dose: 1 g Results - Vital Signs Recent Vital Signs: Last Vital Signs Temp 98.6 F 06/08/18 04:00 Pulse 108 H 06/08/18 11:28 Resp 15 06/08/18 11:28 BP 99/52 L 06/08/18 11:00 Pulse Ox 97 06/08/18 01:30 - Labs Result Diagrams: 06/08/18 06:00 06/08/18 06:00 Labs: Laboratory Results - last 24 hr 06/07/18 06/07/18 06/07/18 15:51 18:08 21:55 WBC RBC Hgb Hct MCV MCH MCHC RDW Plt Count MPV Gran % Lymph % (Auto) [place] % (Auto) Eos % (Auto) Baso % (Auto) Gran # Lymph # (Auto) [place] # (Auto) Eos # (Auto) Baso # (Auto) Sodium Potassium Chloride Carbon Dioxide Anion Gap BUN Creatinine Est GFR ( Amer) Est GFR (Non-Af Amer) POC Glucose (mg/dL) 111 H 102 Random Glucose Calcium Total Bilirubin AST ALT Alkaline Phosphatase Total Protein Albumin Globulin Albumin/Globulin Ratio Vancomycin Trough 26.5 H* 06/08/18 06/08/18 06:00 06:00 WBC 23.0 H RBC 3.62 Hgb 9.6 L Hct 29.9 L MCV 82.6 MCH 26.5 MCHC 32.1 RDW 16.9 H Plt Count 402 MPV 10.4 Gran % 85.2 H Lymph % (Auto) 6.6 L [place] % (Auto) 6.4 H Eos % (Auto) 1.6 Baso % (Auto) 0.2 Gran # 19.60 H Lymph # (Auto) 1.5 [place] # (Auto) 1.5 H Eos # (Auto) 0.4 Baso # (Auto) 0.04 Sodium 136 Potassium 3.9 Chloride 104 Carbon Dioxide 28 Anion Gap 8 L BUN 15 Creatinine 0.6 L Est GFR ( Amer) > 60 Est GFR (Non-Af Amer) > 60 POC Glucose (mg/dL) Random Glucose 126 H Calcium 8.0 L Total Bilirubin 0.4 AST 17 ALT 21 Alkaline Phosphatase 137 H Total Protein 5.5 L Albumin 2.3 L Globulin 3.2 Albumin/Globulin Ratio 0.7 L Vancomycin Trough Attending/Attestation - Attestation I have personally seen and examined this patient.: Yes I have fully participated in the care of the patient.: Yes I have reviewed all pertinent clinical information: Yes
--- NOTE | 2018-06-08 15:29 | US ---
Date of service: 06/08/2018 HISTORY: sepsis COMPARISON: None. TECHNIQUE: Sonographic evaluation of the abdomen. FINDINGS: LIVER: Measures 20.9 cm. Normal echogenicity of the liver parenchyma. No mass. No intrahepatic bile duct dilatation. GALLBLADDER: Unremarkable. No gallstones. COMMON BILE DUCT: Measures mm. 4 PANCREAS: Unremarkable as visualized. No mass. No ductal dilatation. RIGHT KIDNEY: Measures 11.9cm. Normal echogenicity. No calculus, mass, or hydronephrosis. LEFT KIDNEY: Measures 9.6cm. Upper pole cortical cyst, 5.0 x 3.1 x 3.8 cm. No calculus or hydronephrosis. Normal echogenicity and cortical thickness. SPLEEN: Normal in size and contour. No mass. AORTA: No aneurysmal dilatation. IVC: Unremarkable. OTHER FINDINGS: None. IMPRESSION: Left upper pole renal cortical cyst. Hepatomegaly. Otherwise unremarkable.
--- NOTE | 2018-06-08 15:34 | PN ---
DATE: 06/08/2018 SUBJECTIVE: She is still in the Intensive Care Unit. She is not feeling well today. Just maybe down, depressed, but there is something going on. Also, leather carver has not seen her yet and also she is having stomach upset. I will call in GI and I will recall in Podiatry. PHYSICAL EXAMINATION: VITAL SIGNS: She has a 98.6 temp, 110 pulse, 94/46 blood pressure, 20 respiratory rate, 97% O2 sat on room air. HEENT: Head is atraumatic, normocephalic. Throat is moist. NECK: Supple. The thrush is going on in the throat. HEART: Regular rate. Tachy. LUNGS: Decreased breath sounds. It is hard for you to get a good listen, she is very large. ABDOMEN: Morbidly, morbidly, morbidly obese. Nontender. Positive bowel sounds. she feels queasy in the stomach. EXTREMITIES: Major lymphedema bilaterally 10/4 pitting edema . Bilateral thighs have oozing from skin, in the pannus. LABORATORY DATA: She has a 136 sodium, potassium 3.9, BUN 15, creatinine 0.6, GFR is greater than 60, sugar is 126, calcium is 8. Total bili is 0.4, AST is 17, ALT is 21, alk phos is 137. BNP is 4310, she came down to a little bit in the BNP. Total protein is 5.5. White count is up to 23, the best she has been was 15 four days ago, when she came in, she was 25, this is not a good sign; hemoglobin 9.6; hematocrit 29.9; platelets of 402. I will discuss with the Infectious Disease about IV antibiotics. The INR is 3.69. I will stop the Coumadin at this time. Her vancomycin trough is a little bit high is 26.5. ASSESSMENT AND PLAN: I am quite concerned about her elevated white count. I will reconsult Podiatry and get GI involved. Jordy Mann DO MTDD
[2018-06-08] MEDS: Nystatin 100,000 Units/ml Oral Susp 5 ml UD PO SCH ×3 (18:04→22:47)
[2018-06-08] MEDS: Levothyroxine 25 MCG TAB PO SCH (18:05)
[2018-06-08] MEDS: Pantoprazole 40 mg EC Tab PO SCH ×2 (18:05→18:10)
[2018-06-08] MEDS: Vancomycin 1gm in NS 250ml 1 GM/250 ML BAG IVPB SCH (18:07)
[2018-06-08] MEDS: Silver Sulfadiazine 1% Cream (400 gm) TOP SCH (18:10)
[2018-06-08] MEDS: Benzocaine/Menthol (Cepacol) Lozenge MT PRN (22:53)
[2018-06-09] MEDS: Albuterol-Ipratrop 3 mg / 0.5 (3 ml) UD IH SCH ×5 (02:29→20:16)
[2018-06-09] MEDS: Vancomycin 1gm in NS 250ml 1 GM/250 ML BAG IVPB SCH ×2 (05:06→17:25)
[2018-06-09] MEDS: Meropenem IV 1 gm in NS 1 GM/50 ML BAG IVPB SCH ×3 (05:06→21:20)
[2018-06-09] MEDS ORDERED: Metoprolol 1 mg/ml Inj IVP ONE (05:15)
[2018-06-09 06:15] LABS: HEMOGLOBIN 9.3 g/dL (12.0-16.0); MEAN CELL VOLUME 82.6 fl (80.0-105.0); MEAN CORPUSCULAR HEMOGLOBIN 26.1 pg (25.0-35.0); MEAN CORPUSCULAR HGB CONC 31.5 g/dl (31.0-37.0); MEAN PLATELET VOLUME 10.3 fl (7.0-11.0); RBC 3.57 10^6/uL (3.5-6.1); RED CELL DISTRIBUTION WIDTH 16.9 % (11.5-14.5); WHITE BLOOD COUNT 18.6 10^3/uL (4.5-11.0)
[2018-06-09 06:39] LABS: TROPONIN I < 0.01 ng/mL
[2018-06-09 06:58] LABS: ALB/GLOB RATIO 0.7 (1.1-1.8); ALBUMIN 2.3 g/dL (3.0-4.8); ALT/SGPT 20 U/L (7-56); AST/SGOT 18 U/L (14-36); BLOOD UREA NITROGEN 14 mg/dL (7-21); GFR NON-AFRICAN AMERICAN > 60
[2018-06-09] MEDS: Budesonide 0.5 mg/2 ml Inhal Susp UD IH SCH ×2 (07:18→20:16)
--- NOTE | 2018-06-09 07:21 | PN ---
DATE: 06/09/2018 PULMONARY NOTE SUBJECTIVE: The patient appears comfortable this morning. She is not short of breath at rest. PHYSICAL EXAMINATION: VITAL SIGNS: Temperature is 97.3, pulse is 101, respiratory rate 18, last blood pressure recorded is 84/47. Oxygen saturation on nasal cannula is 97%. HEENT: Normocephalic, atraumatic. No JVD. CARDIOVASCULAR: Systolic ejection murmur at the lower left sternal border. No S3 gallop. LUNGS: Decreased breath sounds at the bases. Very minimal/less rhonchi. No wheezing. EXTREMITIES: Less edema. No cyanosis, no clubbing. Calves are nontender to palpation. GASTROINTESTINAL: Abdomen is soft, nontender, and nondistended. Bowel sounds are positive. SKIN: Bilateral lower extremity cellulitis - improving. NEUROLOGIC: Limited at the present time. IMPRESSION: 1. Sepsis syndrome. 2. Bilateral cellulitis. 3. Chronic obstructive pulmonary disease. 4. Asthma. 5. Anemia. 6. Cardiac arrhythmias PLAN: The patient appears comfortable this morning. She is not short of breath at rest. She does state to feeling better overall. I did discuss the case with the night nurse at length. The night nurse stated that the patient had a guarded night(+arrhythmias). On physical exam, there is less bronchospasm noted. In addition, the alveolar-arterial gradient is also less. I will continue with the current nebulizer treatments and inhaled steroids for now. The patient remains on antibiotic therapy - as per Infectious Disease. Input by Dr. Fernandez is noted. There are no temperatures noted. The leukocytosis is improved/decreased this morning. Inputs by Podiatry and Cardiology are also noted. Clinical status of the patient is certainly improved - compared to the initial presentation. However, again, the future status/prognosis for this patient remains very guarded/poor overall. I will discuss the above with the entire ICU team in the next few moments. I will also discuss the above with Dr. Mann later this morning. Ke Farooq MD ANUP
[2018-06-09] MEDS: Insulin Reg-MEDIUM-Coverage SC SCH ×4 (07:30→22:00)
[2018-06-09 07:37] LABS: INR 3.82; PROTHROMBIN TIME 45.2 SECONDS (9.4-12.5)
[2018-06-09] MEDS ORDERED: Sodium Chloride 0.9% 500 ML IV STA (07:44)
--- NOTE | 2018-06-09 09:33 | PN ---
DATE: 06/09/2018 SUBJECTIVE: The patient is in bed, in no acute distress, nontoxic. PHYSICAL EXAMINATION: VITAL SIGNS: On exam, temperature is 97, blood pressure is 79/40, respiratory rate of 18, heart rate of 98. HEENT: Examination of HEENT is unremarkable. NECK: Supple. LUNGS: Have decreased breath sounds. HEART: Normal S1, S2. ABDOMEN: Soft, nontender. LABORATORY DATA: Laboratory examination reveals a white count of 18,600, hemoglobin of 9, BUN of 14, creatinine of 0.6. Procalcitonin is noted. Urinalysis is noted. Vanco trough is noted. Cultures are reviewed. The patient's white count is down to 18,600 today. Review of orders reveals the patient to be on vancomycin and meropenem. ASSESSMENT AND PLAN: A 73-year-old female with super morbid obesity with a body mass index of 81, coronary artery disease, congestive heart failure, diabetes mellitus, atrial fibrillation, chronic lymphedema, chronic obstructive lung disease, on home O2 therapy, who was admitted with severe sepsis, lower extremity cellulitis and healthcare-associated pneumonia. On vancomycin and meropenem day #8 with improvement in white count and unable to get a CAT scan of the abdomen and pelvis, unable to fully examine the patient's by imaging, unable to determine if there is abscess anywhere due to extremely large size patient. Santy Fernandez MD
[2018-06-09] MEDS: Levothyroxine 25 MCG TAB PO SCH (09:59)
[2018-06-09] MEDS: Silver Sulfadiazine 1% Cream (400 gm) TOP SCH (10:00)
[2018-06-09] MEDS: Nystatin 100,000 Units/ml Oral Susp 5 ml UD PO SCH ×4 (10:00→21:17)
[2018-06-09] MEDS: Pantoprazole 40 mg EC Tab PO SCH (10:00)
[2018-06-09] MEDS: Benzocaine/Menthol (Cepacol) Lozenge MT PRN (10:00)
[2018-06-09] MEDS ORDERED: Hydrocortisone 2.5% Rectal Cream(30 gm) PR SCH (10:30)
[2018-06-09] MEDS: Silver Sulfadiazine 1% Cream (25 gm) TP SCH ×2 (10:30→22:30)
--- NOTE | 2018-06-09 10:42 | PN ---
DATE: 06/09/2018 USER EXPERIENCE ARCHITECT NOTE LOCATION: At [facility] ([facility]3]. SUBJECTIVE: The patient is awake and alert. Not complaining of any pain. No nausea or vomiting. No shortness of breath, cough, wheezing at this time. The patient had episode of rapid AFib and was given medications to convert heart rate is 98 at this time, but medication caused decrease in blood pressure. The patient is asymptomatic given a fluid challenge at this time. PHYSICAL EXAMINATION: VITAL SIGNS: Physical exam note that her temperature is 97.4, pulse is 100, respirations are 25 and BP is 80/42. SKIN: Warm and dry. HEENT: Head atraumatic, normocephalic. Eyes: Reactive to light. Ears, nose and throat seemed to be within normal limits. NECK: Supple. No JVD. No thyroid enlargement. No lymph nodes. HEART: Has irregular rate and rhythm. Normal S1 and S2. LUNGS: Reveal decreased breath sounds at the bases. ABDOMEN: Soft. Decreased bowel sounds. GENITALIA AND RECTAL: Deferred. MUSCULOSKELETAL: No joint deformities. EXTREMITIES: Reveal positive edema. NEUROLOGICAL: The patient seemed to be grossly intact. LABORATORY DATA: As far as her laboratories, her white count is 18.6, hemoglobin is 9.3 and her hematocrit 29.5 with platelets of 399,000. Sodium is 137, potassium 3.6, chloride 104, CO2 of 25 with a BUN of 14, creatinine of 0.6 and a glucose of 117. IMPRESSION: As far as my impression, this patient has sepsis, also atrial fibrillation with rapid ventricular response and is noted to have hypotension. She is morbidly obese with a history of congestive heart failure, chronic obstructive pulmonary disease, diabetes, anemia and lower extremity edema. She also carries a diagnosis of mitral regurgitation as well as cellulitis and pulmonary hypertension. PLAN: As far as our plan, we will continue with the fluid bolus and evaluate her blood pressure. If it does not respond, we will start Levophed to support BP. The patient will continue with bronchodilators of DuoNeb. She is on meropenem and Protonix as well as Pulmicort. The patient is on vancomycin and is getting Tylenol for temperatures. She will continue with Synthroid for her thyroid. We will continue to treat aggressively along with the other consultants and the primary care doctor. Marcus Weber MD [facility] # [id number]
--- NOTE | 2018-06-09 10:53 | CARD ---
APPROVED REPORT Date of service: 06/09/2018 EKG Measurement Heart [id number] <Conclusion> A. Fib. PVCs vs. Davida beats STTW changes c/w ischemia, new
--- NOTE | 2018-06-09 12:45 | CP.PCM.CON ---
<Sadaf Medina - Last Filed: 06/09/18 12:39> History of Present Illness - History of Present Illness History of Present Illness: GI Fellow PGY 5 Consult Note Pt is a 73 yo BF with complicated medical history including but not limited to morbid obesity, COPD, CHF, Afib, PVD, chronic LE lymphedema c/b multiple infections/ulcers who was admitted on 06/01/18 for Severe Sepsis due to PNA+/- LE cellulitis/wounds, CHF+COPD decompensation. She has been slowly improving with broad spectrum antibiotics, intermittent pressor support, wound and supportive care. GI consulted on 06/08 for upset stomach.She states that "upset stomach" is more so referring to intermittent nausea over the last few days. She attributes this to antibiotic use. She reports a sore throat, but denies any dysphagia, odynophagia, weight loss, hematemesis or melena. Regarding BMs, she states that prior to admission she would move bowels every 3-4 days but that over the last few days she has had several daily loose watery-green bowel movements. She reports some associated crampy abdominal pain with the BMs but denies any at present. She states she had EGD+CSPY at [facility] [place] some 10+ years ago with "normal" results per her recollection. 12 point ROS negative other than stated above No prior EGD/CSPY on file PMHx: See above SurgHx: Cardiac cath, PICC, benign abd mass removal FamHx: DM, HTN SocHx: Denied Past Patient History - Infectious Disease Hx of Infectious Diseases: None - Tetanus Immunizations Tetanus Immunization: Unknown - Past Social History Smoking Status: Never Smoked - CARDIAC Hx Pacemaker: No - PULMONARY Hx Respiratory Disorders: Yes (using 02 at home/ nebulizer machine) Hx Asthma: Yes Hx Chronic Obstructive Pulmonary Disease (COPD): Yes Hx Emphysema: Yes Hx Pneumonia: Yes - NEUROLOGICAL Hx Neurological Disorder: No - HEENT Hx HEENT Problems: Yes (glasses) Other/Comment: thrush to oral cavity and tongue - RENAL Hx Chronic Kidney Disease: No - ENDOCRINE/METABOLIC Hx Endocrine Disorders: Yes Hx Diabetes Mellitus Type 2: Yes - HEMATOLOGICAL/ONCOLOGICAL Hx Cancer: No - INTEGUMENTARY Hx Dermatological Problems: Yes (chronic venous stasis dermatitis ble) Other/Comment: pt is obese, right outer thigh skin openings healed, redness, hard brown dry skin, dimpling to left thigh, pt c/o that she, sometimes has drainage from left thigh. both lower legs and feet dry skin. redness and discoloration to right abd fold healed, pt unable to turn in bed to assess skin on back, ble +4 pitting edema redness - MUSCULOSKELETAL/RHEUMATOLOGICAL Hx Musculoskeletal Disorders: Yes Hx Falls: No Hx Unsteady Gait: Yes (bedbound) - GASTROINTESTINAL Hx Gastrointestinal Disorders: Yes (benign mass removed from abd 30 yrs ago) Other/Comment: morbid obesity - GENITOURINARY/GYNECOLOGICAL Hx Genitourinary Disorders: Yes Hx Incontinence: Yes (urine and stool) Hx Urinary Tract Infection: Yes - PSYCHIATRIC Hx Psychophysiologic Disorder: No Hx Substance Use: No - SURGICAL HISTORY Hx Mastectomy: No - ANESTHESIA Hx Anesthesia: Yes Meds Allergies/Adverse Reactions: Allergies Allergy/AdvReac Type Severity Reaction Status Date / Time No Known Allergies Allergy Verified 04/26/18 06:48 - Medications Medications: Current Medications Acetaminophen (Tylenol 325mg Tab) 650 mg PO Q6H PRN PRN Reason: Pain, moderate (4-7) Albuterol/Ipratropium (Duoneb 3 Mg/0.5 Mg (3 Ml) Ud) 3 ml IH [id number] [facility] Last Admin: 06/09/18 07:17 Dose: Not Given Benzocaine/Menthol (Cepacol Sore Throat) 1 rosa MT Q2H PRN PRN Reason: Sore Throat Last Admin: 06/09/18 10:00 Dose: 1 rosa Budesonide (Pulmicort Respules) 0.5 mg IH [id number] [facility] Last Admin: 06/09/18 07:18 Dose: Not Given Al Hydrox/Mg Hydrox/Simethicone 30 ml/Diphenhydramine HCl 75 mg/Lidocaine 30 ml 0 ml PO Q2H PRN PRN Reason: Mouth/Throat Pain Last Admin: 06/07/18 10:25 Dose: 30 susp NOREPINEPHRINE BIT/0.9 % NACL (Levophed 4 Mg/ 250 Ml Ns Premixed) 4 mg in 250 mls @ 15 mls/hr IV .[id number] PRN; Protocol PRN Reason: TITRATE PER MD ORDER Last Admin: 06/07/18 23:03 Dose: 4 mcg/min, 15 mls/hr Meropenem (Merrem Iv 1 Gm Premix) 1 gm in 50 mls @ 100 mls/hr IVPB Q8 [facility]; Protocol Stop: 06/11/18 10:43 Last Admin: 06/09/18 05:06 Dose: 100 mls/hr Vancomycin HCl (Vancomycin 1gm) 1 gm in 250 mls @ 167 mls/hr IVPB 0600,1800 [facility]; Protocol Last Admin: 06/09/18 05:06 Dose: 167 mls/hr Insulin Human Regular (Humulin R Med) 0 units SC ACHS [facility]; Protocol Last Admin: 06/09/18 07:30 Dose: Not Given Levothyroxine Sodium (Synthroid) 25 mcg PO DAILY [facility] Last Admin: 06/09/18 09:59 Dose: 25 mcg Metformin HCl (Glucophage) 1,000 mg PO BID [facility] Last Admin: 06/09/18 10:00 Dose: 1,000 mg Nystatin (Nystatin Oral Susp) 5 ml PO QID [facility] Last Admin: 06/09/18 10:00 Dose: 5 ml Ondansetron HCl (Zofran Inj) 4 mg IVP Q6H PRN PRN Reason: Nausea/Vomiting Pantoprazole Sodium (Protonix Ec Tab) 40 mg PO BID [facility] Last Admin: 06/09/18 10:00 Dose: 40 mg Silver Sulfadiazine (Silvadene 1% 25 Gm) 0 gm TP Q12H [facility] Physical Exam - Constitutional Appears: Non-toxic, No Acute Distress, Chronically Ill - Head Exam Head Exam: ATRAUMATIC, NORMAL INSPECTION, NORMOCEPHALIC - Eye Exam Eye Exam: EOMI, Normal appearance, PERRL Pupil Exam: PERRL - ENT Exam ENT Exam: Mucous Membranes Moist - Neck Exam Neck exam: Positive for: Full Rom, Normal Inspection - Respiratory Exam Respiratory Exam: Decreased Breath Sounds - Cardiovascular Exam Cardiovascular Exam: RRR, +S1, +S2 - GI/Abdominal Exam GI & Abdominal Exam: Normal Bowel Sounds, Soft. absent: Distended, Guarding, Organomegaly - Extremities Exam Extremities exam: Positive for: pedal edema, tenderness - Neurological Exam Neurological exam: Alert - Psychiatric Exam Psychiatric exam: Normal Affect, Normal Mood - Skin Skin Exam: Dry, Intact, Normal Color, Warm Results - Vital Signs Recent Vital Signs: Last Vital Signs Temp 97.4 F L 06/09/18 08:00 Pulse 125 H 06/09/18 11:24 Resp 22 06/09/18 11:24 BP 103/51 L 06/09/18 11:00 Pulse Ox 97 06/08/18 01:30 - Labs Result Diagrams: 06/09/18 05:45 06/09/18 05:45 Labs: Laboratory Results - last 24 hr 06/08/18 06/08/18 06/08/18 07:20 10:53 16:13 WBC RBC Hgb Hct MCV MCH MCHC RDW Plt Count MPV PT INR Sodium Potassium Chloride Carbon Dioxide Anion Gap BUN Creatinine Est GFR ( Amer) Est GFR (Non-Af Amer) POC Glucose (mg/dL) 109 117 H 106 Random Glucose Calcium Phosphorus Magnesium Total Bilirubin AST ALT Alkaline Phosphatase Troponin I Total Protein Albumin Globulin Albumin/Globulin Ratio Procalcitonin 06/08/18 06/09/18 06/09/18 18:25 05:45 05:45 WBC 18.6 H RBC 3.57 Hgb 9.3 L Hct 29.5 L MCV 82.6 MCH 26.1 MCHC 31.5 RDW 16.9 H Plt Count 399 MPV 10.3 PT 45.2 H INR 3.82 H* Sodium Potassium Chloride Carbon Dioxide Anion Gap BUN Creatinine Est GFR ( Amer) Est GFR (Non-Af Amer) POC Glucose (mg/dL) Random Glucose Calcium Phosphorus Magnesium Total Bilirubin AST ALT Alkaline Phosphatase Troponin I Total Protein Albumin Globulin Albumin/Globulin Ratio Procalcitonin 0.36 06/09/18 05:45 WBC RBC Hgb Hct MCV MCH MCHC RDW Plt Count MPV PT INR Sodium 137 Potassium 3.6 Chloride 104 Carbon Dioxide 25 Anion Gap 11 BUN 14 Creatinine 0.6 L Est GFR ( Amer) > 60 Est GFR (Non-Af Amer) > 60 POC Glucose (mg/dL) Random Glucose 117 H Calcium 8.0 L Phosphorus 3.1 Magnesium 1.8 Total Bilirubin 0.5 AST 18 ALT 20 Alkaline Phosphatase 187 H D Troponin I < 0.01 Total Protein 5.4 L Albumin 2.3 L Globulin 3.1 Albumin/Globulin Ratio 0.7 L Procalcitonin Assessment & Plan - Assessment and Plan (Free Text) Assessment: 73 yo BF with morbid obesity, DM, CHF, COPD, Afib admitted for sepsis, CHF+COPD on 06/01; GI consulted on 06/08 for upset stomach/nausea. 1. Nausea: Unclear etiology but acute in nature with recent onset after admission, pt attributed to antibiotics which could be the case. She is also a diabetic and is at risk for gastroparesis 2. Cellulitis 3. HCAP 4. Diarrhea 5. Morbid obesity Plan: -Continue supportive care with pain control and anti-emetics -Nausea-recommend Zofran prn -Recommend pepcid bid and discontinue PPI -Order stool studies to r/o cdiff -Abd US with fatty liver -LFTs wnl -IV abx per ID -Further medical care per primary team -Will continue to follow <Wilmer Vargas - Last Filed: 06/09/18 14:43> Meds - Medications Medications: Current Medications Acetaminophen (Tylenol 325mg Tab) 650 mg PO Q6H PRN PRN Reason: Pain, moderate (4-7) Albuterol/Ipratropium (Duoneb 3 Mg/0.5 Mg (3 Ml) Ud) 3 ml IH [id number] RONI Last Admin: 06/09/18 13:32 Dose: Not Given Benzocaine/Menthol (Cepacol Sore Throat) 1 rosa MT Q2H PRN PRN Reason: Sore Throat Last Admin: 06/09/18 10:00 Dose: 1 rosa Budesonide (Pulmicort Respules) 0.5 mg IH [id number] RONI Last Admin: 06/09/18 07:18 Dose: Not Given Al Hydrox/Mg Hydrox/Simethicone 30 ml/Diphenhydramine HCl 75 mg/Lidocaine 30 ml 0 ml PO Q2H PRN PRN Reason: Mouth/Throat Pain Last Admin: 06/07/18 10:25 Dose: 30 susp Famotidine (Pepcid) 40 mg PO 1000,2200 RONI NOREPINEPHRINE BIT/0.9 % NACL (Levophed 4 Mg/ 250 Ml Ns Premixed) 4 mg in 250 mls @ 15 mls/hr IV .[id number] PRN; Protocol PRN Reason: TITRATE PER MD ORDER Last Admin: 06/07/18 23:03 Dose: 4 mcg/min, 15 mls/hr Meropenem (Merrem Iv 1 Gm Premix) 1 gm in 50 mls @ 100 mls/hr IVPB Q8 [facility]; Protocol Stop: 06/11/18 10:43 Last Admin: 06/09/18 05:06 Dose: 100 mls/hr Vancomycin HCl (Vancomycin 1gm) 1 gm in 250 mls @ 167 mls/hr IVPB 0600,1800 [facility]; Protocol Last Admin: 06/09/18 05:06 Dose: 167 mls/hr Insulin Human Regular (Humulin R Med) 0 units SC ACHS [facility]; Protocol Last Admin: 06/09/18 07:30 Dose: Not Given Levothyroxine Sodium (Synthroid) 25 mcg PO DAILY [facility] Last Admin: 06/09/18 09:59 Dose: 25 mcg Metformin HCl (Glucophage) 1,000 mg PO BID [facility] Last Admin: 06/09/18 10:00 Dose: 1,000 mg Nystatin (Nystatin Oral Susp) 5 ml PO QID [facility] Last Admin: 06/09/18 10:00 Dose: 5 ml Ondansetron HCl (Zofran Inj) 4 mg IVP Q6H PRN PRN Reason: Nausea/Vomiting Silver Sulfadiazine (Silvadene 1% 25 Gm) 0 gm TP Q12H [facility] Results - Vital Signs Recent Vital Signs: Last Vital Signs Temp 97.4 F L 06/09/18 08:00 Pulse 125 H 06/09/18 11:24 Resp 22 06/09/18 11:24 BP 103/51 L 06/09/18 11:00 Pulse Ox 97 06/08/18 01:30 - Labs Result Diagrams: 06/09/18 05:45 06/09/18 05:45 Labs: Laboratory Results - last 24 hr 06/08/18 06/08/18 06/08/18 07:20 10:53 16:13 WBC RBC Hgb Hct MCV MCH MCHC RDW Plt Count MPV PT INR Sodium Potassium Chloride Carbon Dioxide Anion Gap BUN Creatinine Est GFR ( Amer) Est GFR (Non-Af Amer) POC Glucose (mg/dL) 109 117 H 106 Random Glucose Calcium Phosphorus Magnesium Total Bilirubin AST ALT Alkaline Phosphatase Troponin I Total Protein Albumin Globulin Albumin/Globulin Ratio Procalcitonin 06/08/18 06/09/18 06/09/18 18:25 05:45 05:45 WBC 18.6 H RBC 3.57 Hgb 9.3 L Hct 29.5 L MCV 82.6 MCH 26.1 MCHC 31.5 RDW 16.9 H Plt Count 399 MPV 10.3 PT 45.2 H INR 3.82 H* Sodium Potassium Chloride Carbon Dioxide Anion Gap BUN Creatinine Est GFR ( Amer) Est GFR (Non-Af Amer) POC Glucose (mg/dL) Random Glucose Calcium Phosphorus Magnesium Total Bilirubin AST ALT Alkaline Phosphatase Troponin I Total Protein Albumin Globulin Albumin/Globulin Ratio Procalcitonin 0.36 06/09/18 05:45 WBC RBC Hgb Hct MCV MCH MCHC RDW Plt Count MPV PT INR Sodium 137 Potassium 3.6 Chloride 104 Carbon Dioxide 25 Anion Gap 11 BUN 14 Creatinine 0.6 L Est GFR ( Amer) > 60 Est GFR (Non-Af Amer) > 60 POC Glucose (mg/dL) Random Glucose 117 H Calcium 8.0 L Phosphorus 3.1 Magnesium 1.8 Total Bilirubin 0.5 AST 18 ALT 20 Alkaline Phosphatase 187 H D Troponin I < 0.01 Total Protein 5.4 L Albumin 2.3 L Globulin 3.1 Albumin/Globulin Ratio 0.7 L Procalcitonin Attending/Attestation - Attestation I have personally seen and examined this patient.: Yes I have fully participated in the care of the patient.: Yes I have reviewed all pertinent clinical information: Yes Notes (Text): 06/09/18 14:39 The patient was interviewed, examined and discussed with Dr. Scales. Agree with the above findings, assessment and plan.
--- NOTE | 2018-06-09 12:51 | PN ---
DATE: 06/09/2018 CARDIOLOGY FOLLOWUP SUBJECTIVE: The patient is in no respiratory distress. No shortness of breath. PHYSICAL EXAMINATION: VITAL SIGNS: Blood pressure is 103/51, the heart rate is 110. NECK: Negative JVD. LUNGS: Decreased breath sounds. HEART: Reveal S1, S2. EXTREMITIES: Chronic edema. LABORATORY DATA: White count is down to 18.6, hemoglobin is 9.3, BUN and creatinine are stable. IMPRESSION: 1. Chronic obstructive pulmonary disease. 2. Pulmonary hypertension. 3. Morbid obesity. 4. Normal left ventricular function. 5. Hypotension treated with IV fluids. 6. Diabetes mellitus. PLAN: Given these findings, the patient is currently feeling better. Her abdominal ultrasound which was done yesterday for nausea showed no acute changes. Ryan Turk MD
--- NOTE | 2018-06-09 17:17 | PN ---
DATE: 06/09/2018 SUBJECTIVE: She is now in the intensive care unit. I moved her there when her blood pressure dropped to 60. She got IV bolus. She is alert. She is weak. She is currently on benzocaine, albuterol, metformin, insulin, metoprolol, Merrem IV, norepinephrine, nystatin, Protonix, Pulmicort, cream, IV fluids, levothyroxine, Tylenol, vancomycin IV, and Zofran. PHYSICAL EXAMINATION: VITAL SIGNS: She has a 97.4 temp, 102 pulse, 11 respiratory rate, 80/49 last blood pressure after a bolus. HEENT: Head is atraumatic, normocephalic. She is quite weak. HEART: Regular rate. LUNGS: Decreased breath sounds bilaterally. Poor inspiration, but clear. ABDOMEN: Soft, morbidly obese. Nontender. Positive bowel sounds. EXTREMITIES: +4/4, +10/4 pitting edema. She has lymphedema and large legs. LABORATORY DATA: Sodium 137, potassium 3.6, BUN 14, creatinine 0.6, GFR is greater than 60, sugar is 117, calcium is 8. Phos is 3.1, magnesium 1.8, total bili is 0.5, AST is 18, ALT is 20, alk phos 187. Troponin I less than 0.01. Total protein is 5.4. Procalcitonin is 0.36. White count 18.6, this came down on 06/05/2018, which is great; 9.3 hemoglobin, 29.5 hematocrit with 399 platelets, that is a good sign. INR 3.82 and she is off Coumadin. We will check it tomorrow. We will continue to keep her off Coumadin until little high, not bleeding. Lactate is down to 1.6, better. ASSESSMENT AND PLAN: We will continue with aggressive treatment and care. Had a long discussion with Infectious Disease. Discussed at length with her about the issue she has with the her sepsis and her low blood pressure. Her ultrasound of the abdomen showed not much the blood will raise, the white count will drop. Maria Isabel Bowden is in trouble in the intensive care unit with severe sepsis, congestive heart failure, hypotension. I had a long discussion with her . Alan Mann DO ANUP
[2018-06-09] MEDS: NOREPINEPHRINE BIT/0.9 % NACL 4 MG/250 ML BAG IV PRN (18:31)
[2018-06-10] MEDS ORDERED: Digoxin 500 mcg/2ml (0.5 mg/2ml) Inj IVP STA (02:45)
[2018-06-10] MEDS: Albuterol-Ipratrop 3 mg / 0.5 (3 ml) UD IH SCH ×4 (02:52→20:26)
[2018-06-10] MEDS: NOREPINEPHRINE BIT/0.9 % NACL 4 MG/250 ML BAG IV PRN ×2 (02:59→16:10)
[2018-06-10] MEDS: Vancomycin 1gm in NS 250ml 1 GM/250 ML BAG IVPB SCH ×2 (06:56→18:27)
[2018-06-10] MEDS: Meropenem IV 1 gm in NS 1 GM/50 ML BAG IVPB SCH ×3 (06:59→22:35)
[2018-06-10 07:23] LABS: HEMOGLOBIN 9.4 g/dL (12.0-16.0); MEAN CELL VOLUME 82.8 fl (80.0-105.0); MEAN CORPUSCULAR HEMOGLOBIN 26.1 pg (25.0-35.0); MEAN CORPUSCULAR HGB CONC 31.5 g/dl (31.0-37.0); MEAN PLATELET VOLUME 9.9 fl (7.0-11.0); RBC 3.6 10^6/uL (3.5-6.1); RED CELL DISTRIBUTION WIDTH 16.6 % (11.5-14.5); WHITE BLOOD COUNT 18.1 10^3/uL (4.5-11.0)
--- NOTE | 2018-06-10 07:26 | PN ---
DATE: 06/10/2018 PULMONARY NOTE DICTATION SUBJECTIVE: The patient appears comfortable this morning. She is not short of breath at rest. PHYSICAL EXAMINATION: VITAL SIGNS: Temperature is 98, pulse is 113, respirations 18, blood pressure 100/42. Oxygen saturation on nasal cannula is 97%. HEENT: Normocephalic, atraumatic. No JVD. CARDIOVASCULAR: Systolic ejection murmur at the lower left sternal border. No S3 gallop. LUNGS: Decreased breath sounds at the bases. Very minimal/less rhonchi. No wheezing. EXTREMITIES: Less edema. No cyanosis, no clubbing. Calves are nontender to palpation. GI: Abdomen is soft, nontender and nondistended. Bowel sounds are positive. SKIN: Bilateral lower extremity cellulitis - improving. NEUROLOGIC: Exam limited at the present time. IMPRESSION: 1. Sepsis syndrome. 2. Bilateral cellulitis. 3. Chronic obstructive pulmonary disease. 4. Asthma. 5. Anemia. 6. Cardiac arrhythmias. 7. Positive troponin, rule out myocardial infarction. PLAN: The patient appears more comfortable this morning. She is not short of breath at rest. She does state to feeling better overall. I did discuss the case with the night nurse at length. The night nurse stated that the patient had a much better night. On physical exam, there is certainly less bronchospasm noted. In addition, the alveolar-arterial gradient is also less. I will continue with the current nebulizer treatments and inhaled steroids for now. Inputs by Internal Medicine and Cardiology are noted. The peak troponin over the past 24 hours is 0.44. Clinical status of the patient is certainly improved - compared to yesterday. However, again, the future status/prognosis for this chronically ill elderly patient remains very guarded at best. I will discuss the above with the entire ICU team in the next few moments. I will also discuss the above with the attending physician later this morning. Ke Farooq MD MTDVivien
[2018-06-10] MEDS: Insulin Reg-MEDIUM-Coverage SC SCH ×4 (07:30→22:21)
[2018-06-10 07:32] LABS: ALB/GLOB RATIO 0.7 (1.1-1.8); ALBUMIN 2.2 g/dL (3.0-4.8); ALT/SGPT 20 U/L (7-56); AST/SGOT 16 U/L (14-36); BLOOD UREA NITROGEN 14 mg/dL (7-21); CALCIUM 7.9 mg/dL (8.4-10.5); GFR NON-AFRICAN AMERICAN > 60
[2018-06-10] MEDS: Budesonide 0.5 mg/2 ml Inhal Susp UD IH SCH ×2 (07:51→20:26)
[2018-06-10] MEDS: Levothyroxine 25 MCG TAB PO SCH (10:40)
[2018-06-10] MEDS: Nystatin 100,000 Units/ml Oral Susp 5 ml UD PO SCH ×4 (10:40→22:35)
[2018-06-10] MEDS: Silver Sulfadiazine 1% Cream (25 gm) TP SCH ×2 (10:42→22:00)
[2018-06-10] MEDS: Benzocaine/Menthol (Cepacol) Lozenge MT PRN (10:45)
--- NOTE | 2018-06-10 10:58 | PN ---
DATE: 06/10/2018 SUBJECTIVE: The patient is in bed, in no acute distress. PHYSICAL EXAMINATION: VITAL SIGNS: On exam, temperature Is 98, blood pressure is 118/40, respiratory rate of 18, heart rate of 138. HEENT: Examination of HEENT is unremarkable. NECK: Supple. LUNGS: Have decreased breath sounds. HEART: Normal S1, S2. ABDOMEN: Soft, nontender. LABORATORY DATA: Reveals white count of 18,100, hemoglobin of 9.4. Chemistries are noted. Urinalysis is noted and serology is negative. Microbiology reveals the blood cultures are no growth. Nasal MRSA is not detected. Urine culture is no growth and meropenem is active as is the vancomycin. ASSESSMENT AND PLAN: A 73-year-old female with super morbid obesity with body mass index of 81, coronary artery disease, congestive heart failure, diabetes mellitus, atrial fibrillation, chronic edema, chronic obstructive lung disease, home O2 therapy, admitted with severe sepsis, bilateral lower extremity cellulitis. The right side has significant infection on the thigh than the left. Also, healthcare-associated pneumonia, on vanco and meropenem, day #9. Case discussed with the patient's at length who was present, explained the white count and unable to image her because of extremely large size with a body mass index of 81. We will follow closely with you. Santy Fernandez MD
--- NOTE | 2018-06-10 11:07 | PN ---
DATE: 06/10/2018 SUBJECTIVE: The patient is resting in bed, awake and alert, doing much better today. No complaints of increased shortness of breath. No cough, wheezing, chest congestion. The patient's blood pressure is stable and heart rate has improved even though it still continues to be slightly tachycardic. PHYSICAL EXAMINATION: VITAL SIGNS: Note that her temperature is 98, pulse is 120, respirations are 16 and BP is 118/44. SKIN: Warm and dry. HEAD: Atraumatic, normocephalic. Eyes reactive to light. Ear, nose and throat seem to be within normal limits. NECK: Her neck is supple. No JVD. No thyroid enlargement. No lymph nodes. HEART: Has irregular rate and rhythm. Normal S1, S2, but tachycardic. LUNGS: Revealed decreased breath sounds at the bases. ABDOMEN: Soft, but obese. GENITALIA AND RECTAL: Deferred. MUSCULOSKELETAL: No joint deformities. EXTREMITIES: Reveal positive edema. NEUROLOGIC: She seemed to be grossly intact. LABORATORY DATA: As far as her laboratories are concerned, her white count is 18.1, hemoglobin is 9.4, hematocrit 29.8 with platelets of 458,000. Her sodium is 136, potassium 3.8, chloride 105, CO2 of 26 with a BUN of 14, creatinine of 0.6 and a glucose of 121. Note that the patient's troponin, latest one yesterday had come down to 0.33. IMPRESSION: The patient had sepsis with atrial fibrillation and rapid ventricular response. The patient is status post hypotension and is morbidly obese. She has a history of congestive heart failure, chronic obstructive pulmonary disease, diabetes, anemia, lower extremity edema, skin breakdown and ulcerations as well as a diagnosis of mitral regurgitation, cellulitis and pulmonary hypertension. Note that the patient's troponins are elevated and Cardiology is evaluating for possible myocardial infarction. PLAN: As far as our plan, we will continue with IV fluids. The patient started on digoxin and she continues to get O2 via nasal cannula as well as bronchodilators via DuoNeb. She is on meropenem as well as Protonix, Pulmicort, vancomycin and Tylenol for temperatures. The patient is also on Synthroid and we will continue to treat aggressively along with the other consultants and the primary care doctor. Marcus Weber MD [facility] # [id number]
--- NOTE | 2018-06-10 11:55 | PN ---
DATE: 06/10/2018 CARDIOLOGY FOLLOWUP SUBJECTIVE: The patient is awake, alert without dyspnea. PHYSICAL EXAMINATION: VITAL SIGNS: Blood pressure is 118/44, on IV Levophed; the heart rate is atrial fibrillation at 107. NECK: Negative JVD. LUNGS: Decreased breath sounds. HEART: Reveals S1 and S2. EXTREMITIES: Chronic edema. LABORATORY DATA: Troponins are elevated at 0.44 and 0.33. BUN and creatinine are unremarkable. Glucose is 121 and hemoglobin is 9.4. IMPRESSION: 1. Persistent hypotension. 2. Chronic atrial fibrillation with increasing heart rate, on IV Levophed. 3. Elevated troponins, likely represent [id number] myocardial infarction. 4. Anemia. 5. Normal left ventricular function. 6. Severe pulmonary hypertension. 7. Chronic obstructive pulmonary disease. PLAN: Given these findings, we will restart the patient on her p.o. Cardizem. We will try to taper her off her Levophed. Her non-STEMI will be treated medically. The risk of an invasive cardiac procedure is too high given her multiple comorbidities including her severe and morbid obesity. Ryan Turk MD
[2018-06-10] MEDS: Digoxin 250 mcg (0.25 mg) Tab PO SCH (13:37)
--- NOTE | 2018-06-10 15:42 | PN ---
DATE: 06/10/2018 SUBJECTIVE: She is resting in bed in the Intensive Care Unit. She is feeling a little bit than yesterday. She is on DuoNeb, Glucophage, Lanoxin, norepinephrine, Merrem, nystatin, Pepcid, Pulmicort, Silvadene cream, Synthroid, Tylenol, vancomycin and Zofran. PHYSICAL EXAMINATION: VITAL SIGNS: She has a 98.7 temp, 122 pulse, 16 respiratory rate, blood pressure is now 118/44, 81% saturation up to 92% saturation on 2 liters. HEENT: Head: Atraumatic, normocephalic. HEART: Regular rate, very tachy. LUNGS: Decreased breath sounds, but clear. ABDOMEN: Soft, obese, nontender. EXTREMITIES: Morbidly swollen, right side oozing, left size oozing. She has numerous issues. LABORATORY DATA: Her white count came down to 18.2, which is good, it was as high as 23 and 25, 9.4 hemoglobin 29.8 hematocrit with 458 platelets. INR is at 3.82. She is not taking any Coumadin. She has 136 sodium, potassium 3.8, BUN 40, creatinine 0.6, GFR is greater than 60, sugar is 121, calcium is 7.9. Her troponins are elevated at 0.44 and 0.33. She looks like she had an NSTEMI. I will discuss that with Dr. Turk, the orthotics prosthetics technician who has been seeing her, total protein is 5.5. She is not very much in trouble. She has numerous issues with pulmonary hypertension, morbid obesity, sepsis syndrome, chronic obstructive pulmonary disease, diabetes. She is on IV antibiotics. Hopefully, the white count will drop further. Continue with aggressive treatment and care in the Intensive Care Unit. Continue with good wound care and hopefully she will start to improve. I also discussed this with at length. Alan Mann DO
--- NOTE | 2018-06-10 16:01 | CP.PCM.PN ---
Subjective - Date & Time of Evaluation Date of Evaluation: 06/10/18 Time of Evaluation: 09:00 - Subjective Subjective: GI Fellow PGY5 Progress Note Pt seen and evaluated at bedside, pt doing well with no abdominal pain or diarrhea. Nausea improved. ROS: A 12pt ROS was negative except as above Objective - Vital Signs/Intake and Output Vital Signs (last 24 hours): Temp Pulse Resp BP Pulse Ox 97.8 F 104 H 15 95/31 L 78 L 06/10/18 12:00 06/10/18 14:10 06/10/18 14:09 06/10/18 14:00 06/10/18 04:30 Intake and Output: 06/10/18 06/10/18 06:59 18:59 Intake Total 900 Output Total 300 Balance 600 - Medications Medications: Current Medications Acetaminophen (Tylenol 325mg Tab) 650 mg PO Q6H PRN PRN Reason: Pain, moderate (4-7) Last Admin: 06/09/18 21:16 Dose: 650 mg Albuterol/Ipratropium (Duoneb 3 Mg/0.5 Mg (3 Ml) Ud) 3 ml IH [id number] [facility] Last Admin: 06/10/18 13:42 Dose: Not Given Benzocaine/Menthol (Cepacol Sore Throat) 1 rosa MT Q2H PRN PRN Reason: Sore Throat Last Admin: 06/10/18 10:45 Dose: 1 rosa Budesonide (Pulmicort Respules) 0.5 mg IH [id number] [facility] Last Admin: 06/10/18 07:51 Dose: 0.5 mg Al Hydrox/Mg Hydrox/Simethicone 30 ml/Diphenhydramine HCl 75 mg/Lidocaine 30 ml 0 ml PO Q2H PRN PRN Reason: Mouth/Throat Pain Last Admin: 06/07/18 10:25 Dose: 30 susp Digoxin (Lanoxin) 0.25 mg PO 1400 [facility] Last Admin: 06/10/18 13:37 Dose: 0.25 mg Diltiazem HCl (Cardizem) 60 mg PO Q8 [facility] Last Admin: 06/10/18 13:38 Dose: 60 mg Famotidine (Pepcid) 40 mg PO 1000,2200 [facility] Last Admin: 06/10/18 10:40 Dose: 40 mg NOREPINEPHRINE BIT/0.9 % NACL (Levophed 4 Mg/ 250 Ml Ns Premixed) 4 mg in 250 mls @ 15 mls/hr IV .[id number] PRN; Protocol PRN Reason: TITRATE PER MD ORDER Last Admin: 06/10/18 02:59 Dose: 8 mcg/min, 30 mls/hr Meropenem (Merrem Iv 1 Gm Premix) 1 gm in 50 mls @ 100 mls/hr IVPB Q8 [facility]; Protocol Stop: 06/11/18 10:43 Last Admin: 06/10/18 13:39 Dose: 100 mls/hr Vancomycin HCl (Vancomycin 1gm) 1 gm in 250 mls @ 167 mls/hr IVPB 0600,1800 [facility]; Protocol Last Admin: 06/10/18 06:56 Dose: 167 mls/hr Insulin Human Regular (Humulin R Med) 0 units SC ACHS [facility]; Protocol Last Admin: 06/10/18 11:30 Dose: Not Given Levothyroxine Sodium (Synthroid) 25 mcg PO DAILY [facility] Last Admin: 06/10/18 10:40 Dose: 25 mcg Metformin HCl (Glucophage) 1,000 mg PO BID [facility] Last Admin: 06/10/18 10:40 Dose: 1,000 mg Nystatin (Nystatin Oral Susp) 5 ml PO QID [facility] Last Admin: 06/10/18 13:40 Dose: Not Given Ondansetron HCl (Zofran Inj) 4 mg IVP Q6H PRN PRN Reason: Nausea/Vomiting Silver Sulfadiazine (Silvadene 1% 25 Gm) 0 gm TP Q12H [facility] Last Admin: 06/10/18 10:42 Dose: Not Given - Labs Labs: 06/10/18 06:30 06/10/18 06:30 PT 45.2 SECONDS (9.4-12.5) H 06/09/18 05:45 INR 3.82 H* 06/09/18 05:45 APTT 36.2 Seconds (25.1-36.5) 06/01/18 15:10 - Constitutional Appears: Non-toxic, No Acute Distress - Head Exam Head Exam: ATRAUMATIC, NORMAL INSPECTION, NORMOCEPHALIC - Eye Exam Eye Exam: EOMI, PERRL - ENT Exam ENT Exam: Mucous Membranes Moist - GI/Abdominal Exam GI & Abdominal Exam: Soft, Normal Bowel Sounds. absent: Tenderness - Extremities Exam Extremities Exam: Pedal Edema - Neurological Exam Neurological Exam: Alert, Awake, Oriented x3 - Psychiatric Exam Psychiatric exam: Normal Affect, Normal Mood - Skin Skin Exam: Dry, Intact, Normal Color, Warm Assessment and Plan - Assessment and Plan (Free Text) Assessment: 73 yo BF with morbid obesity, DM, CHF, COPD, Afib admitted for sepsis, CHF+COPD on 06/01; GI consulted on 06/08 for upset stomach/nausea. 1. Nausea: Unclear etiology but acute in nature with recent onset after admission, pt attributed to antibiotics which could be the case. She is also a diabetic and is at risk for gastroparesis 2. Cellulitis 3. HCAP 4. Diarrhea 5. Morbid obesity Plan: -Continue supportive care with pain control and anti-emetics -Nausea-recommend Zofran prn -Continue pepcid bid -Stool studies to r/o cdiff pending -Abd US with fatty liver -LFTs wnl -IV abx per ID -Further medical care per primary team -Will continue to follow
[2018-06-11] MEDS: Albuterol-Ipratrop 3 mg / 0.5 (3 ml) UD IH SCH ×3 (02:32→19:30)
[2018-06-11] MEDS: Meropenem IV 1 gm in NS 1 GM/50 ML BAG IVPB SCH (06:10)
[2018-06-11] MEDS: NOREPINEPHRINE BIT/0.9 % NACL 4 MG/250 ML BAG IV PRN (06:11)
[2018-06-11] MEDS: Vancomycin 1gm in NS 250ml 1 GM/250 ML BAG IVPB SCH ×2 (06:12→18:32)
[2018-06-11 07:18] LABS: HEMOGLOBIN 9.4 g/dL (12.0-16.0); MEAN CELL VOLUME 82.5 fl (80.0-105.0); MEAN CORPUSCULAR HEMOGLOBIN 26.2 pg (25.0-35.0); MEAN CORPUSCULAR HGB CONC 31.8 g/dl (31.0-37.0); MEAN PLATELET VOLUME 9.9 fl (7.0-11.0); RBC 3.59 10^6/uL (3.5-6.1); RED CELL DISTRIBUTION WIDTH 16.6 % (11.5-14.5); WHITE BLOOD COUNT 16.5 10^3/uL (4.5-11.0)
[2018-06-11] MEDS: Budesonide 0.5 mg/2 ml Inhal Susp UD IH SCH ×2 (07:35→19:30)
--- NOTE | 2018-06-11 07:43 | PN ---
DATE: 06/11/2018 SUBJECTIVE: The patient appears comfortable this morning. She is not short of breath at rest. PHYSICAL EXAMINATION: VITAL SIGNS: Temperature is 98.4, pulse 90, respirations 17, blood pressure 102/48. Oxygen saturation on nasal cannula is 99%. HEENT: Normocephalic, atraumatic. No JVD. CARDIOVASCULAR: Systolic ejection murmur at the lower left sternal border. No S3 gallop. LUNGS: Decreased breath sounds at the bases. Very minimal/less rhonchi. No wheezing. EXTREMITIES: Less edema. No cyanosis, no clubbing. Calves are nontender to palpation. GI: Abdomen is soft, nontender and nondistended. Bowel sounds are positive. SKIN: Bilateral lower extremity cellulitis - improving. NEUROLOGIC: Limited at the present time. IMPRESSION: 1. Sepsis syndrome. 2. Bilateral cellulitis. 3. Chronic obstructive pulmonary disease. 4. Asthma. 5. Anemia. 6. Cardiac arrhythmias. 7. Positive troponin, rule out myocardial infarction. PLAN: The patient appears comfortable this morning. She is not short of breath at rest. She does state to feeling much better overall. I did discuss the case with the night nurse at length. The night nurse stated that the patient had a good night. The night nurse also informed me that they are weaning down the dosage of norepinephrine. On physical exam, her bronchospasm continues to resolve. In addition, the oxygen saturation on nasal cannula is now 99%. I will continue the current nebulizer treatments and inhaled steroids for now. The patient remains on antibiotic therapy - as per Infectious Disease. Input by Dr. Fernandez is noted. Leukocytosis is resolving. Input by Cardiology (Dr. Turk) is also noted. Clinical status of the patient is significantly improved - compared to last week. However, again, the future status/prognosis for this patient does remain very guarded at best/poor. I will discuss the above with the entire ICU team in the next few moments. I will also discuss the above with the attending physician. Ke Farooq MD ANUP
[2018-06-11 07:55] LABS: INR 2.6; PROTHROMBIN TIME 30.5 SECONDS (9.4-12.5)
--- NOTE | 2018-06-11 08:12 | PN ---
DATE: 06/11/2018 SUBJECTIVE: The patient is in bed, in no acute distress, nontoxic. The patient was seen earlier today with the patient's at the bedside. PHYSICAL EXAMINATION: VITAL SIGNS: Temperature of 98, respiratory rate 16, heart rate of 92, blood pressure is 102/90, was down to 87. HEENT: Unremarkable. NECK: Supple. LUNGS: Have decreased breath sounds. HEART: Normal S1, S2. ABDOMEN: Soft, nontender. LABORATORY DATA: Reveals a white count of 16,000, hemoglobin of 9. BUN of 14, creatinine of 0.6. Urinalysis is noted. ASSESSMENT AND PLAN: This is a 73-year-old female with super morbid obesity, body mass index of 81; coronary artery disease; congestive heart failure; diabetes mellitus; atrial fibrillation; chronic edema; chronic obstructive lung disease, home O2 therapy; admitted with severe sepsis, bilateral lower extremity cellulitis, and right-sided significant infection. The patient is on vancomycin and meropenem day #10. We will continue to follow the WBC count. We will follow with you. Santy Fernandez MD
[2018-06-11 08:17] LABS: BLOOD UREA NITROGEN 14 mg/dL (7-21); GFR NON-AFRICAN AMERICAN > 60
[2018-06-11 08:18] LABS: ALB/GLOB RATIO 0.7 (1.1-1.8); ALBUMIN 2.2 g/dL (3.0-4.8); ALT/SGPT 15 U/L (7-56); AST/SGOT 20 U/L (14-36); CALCIUM 7.8 mg/dL (8.4-10.5)
[2018-06-11] MEDS: Insulin Reg-MEDIUM-Coverage SC SCH ×4 (09:38→22:49)
[2018-06-11] MEDS: Levothyroxine 25 MCG TAB PO SCH (10:14)
[2018-06-11] MEDS: Nystatin 100,000 Units/ml Oral Susp 5 ml UD PO SCH ×4 (10:17→22:29)
--- NOTE | 2018-06-11 10:37 | CP.PCM.PN ---
<Dionicio Cunningham - Last Filed: 06/11/18 16:35> Subjective - Date & Time of Evaluation Date of Evaluation: 06/11/18 Time of Evaluation: 10:00 - Subjective Subjective: PGY-4 GI Fellow Prog Note Pt lying in bed when seen this AM. Denies any further nausea. No abd pain nor diarrhea. Tolerating diet. 5 point ROS negative other than stated above Objective - Vital Signs/Intake and Output Vital Signs (last 24 hours): Temp Pulse Resp BP Pulse Ox 97.5 F L 103 H 21 103/48 L 63 L 06/11/18 08:00 06/11/18 08:30 06/11/18 08:30 06/11/18 08:30 06/11/18 08:30 Intake and Output: 06/11/18 06/11/18 06:59 18:59 Intake Total 900 Output Total 450 Balance 450 - Medications Medications: Current Medications Acetaminophen (Tylenol 325mg Tab) 650 mg PO Q6H PRN PRN Reason: Pain, moderate (4-7) Last Admin: 06/09/18 21:16 Dose: 650 mg Albuterol/Ipratropium (Duoneb 3 Mg/0.5 Mg (3 Ml) Ud) 3 ml IH [id number] [facility] Last Admin: 06/11/18 07:35 Dose: 3 ml Benzocaine/Menthol (Cepacol Sore Throat) 1 rosa MT Q2H PRN PRN Reason: Sore Throat Last Admin: 06/10/18 10:45 Dose: 1 rosa Budesonide (Pulmicort Respules) 0.5 mg IH [id number] [facility] Last Admin: 06/11/18 07:35 Dose: 0.5 mg Al Hydrox/Mg Hydrox/Simethicone 30 ml/Diphenhydramine HCl 75 mg/Lidocaine 30 ml 0 ml PO Q2H PRN PRN Reason: Mouth/Throat Pain Last Admin: 06/07/18 10:25 Dose: 30 susp Digoxin (Lanoxin) 0.25 mg PO 1400 [facility] Last Admin: 06/10/18 13:37 Dose: 0.25 mg Diltiazem HCl (Cardizem) 60 mg PO Q8 [facility] Last Admin: 06/11/18 06:07 Dose: 60 mg Famotidine (Pepcid) 40 mg PO 1000,2200 [facility] Last Admin: 06/11/18 10:17 Dose: 40 mg Hydrocortisone Sodium Succinate (Solu-Cortef) 50 mg IVP Q6H [facility] Last Admin: 06/11/18 10:13 Dose: 50 mg NOREPINEPHRINE BIT/0.9 % NACL (Levophed 4 Mg/ 250 Ml Ns Premixed) 4 mg in 250 mls @ 15 mls/hr IV .[id number] PRN; Protocol PRN Reason: TITRATE PER MD ORDER Last Admin: 06/11/18 06:11 Dose: 6 mcg/min, 22.5 mls/hr Meropenem (Merrem Iv 1 Gm Premix) 1 gm in 50 mls @ 100 mls/hr IVPB Q8 [facility]; Protocol Stop: 06/11/18 10:43 Last Admin: 06/11/18 06:10 Dose: 100 mls/hr Vancomycin HCl (Vancomycin 1gm) 1 gm in 250 mls @ 167 mls/hr IVPB 0600,1800 [facility]; Protocol Last Admin: 06/11/18 06:12 Dose: 167 mls/hr Insulin Human Regular (Humulin R Med) 0 units SC ACHS [facility]; Protocol Last Admin: 06/11/18 09:38 Dose: Not Given Levothyroxine Sodium (Synthroid) 25 mcg PO DAILY [facility] Last Admin: 06/11/18 10:14 Dose: 25 mcg Metformin HCl (Glucophage) 1,000 mg PO BID [facility] Last Admin: 06/11/18 09:45 Dose: Not Given Midodrine (Proamatine) 5 mg PO TID [facility] Last Admin: 06/11/18 10:13 Dose: Not Given Nystatin (Nystatin Oral Susp) 5 ml PO QID [facility] Last Admin: 06/11/18 10:17 Dose: 5 ml Ondansetron HCl (Zofran Inj) 4 mg IVP Q6H PRN PRN Reason: Nausea/Vomiting Last Admin: 06/11/18 09:43 Dose: 4 mg Silver Sulfadiazine (Silvadene 1% 25 Gm) 0 gm TP Q12H [facility] Last Admin: 06/10/18 22:00 Dose: 1 gm Warfarin Sodium (Coumadin) 2.5 mg PO 1800 [facility]; Protocol - Labs Labs: 06/11/18 06:30 06/11/18 06:30 PT 30.5 SECONDS (9.4-12.5) H 06/11/18 06:30 INR 2.60 06/11/18 06:30 APTT 36.2 Seconds (25.1-36.5) 06/01/18 15:10 - Constitutional Appears: Chronically Ill, Other (Morbidly obese) - Eye Exam Eye Exam: EOMI. absent: Scleral icterus - ENT Exam ENT Exam: Mucous Membranes Moist. absent: Mucous Membranes Dry - Respiratory Exam Respiratory Exam: NORMAL BREATHING PATTERN. absent: Accessory Muscle Use, Respiratory Distress - Cardiovascular Exam Additional comments: Irregularly irregular rate and rhythm - GI/Abdominal Exam GI & Abdominal Exam: Distended, Soft, Normal Bowel Sounds. absent: Bruit, Firm, Guarding, Rigid, Tenderness Additional comments: abd exam very limited due to morbid obesity Assessment and Plan - Assessment and Plan (Free Text) Assessment: 73 yo BF with morbid obesity, DM, CHF, COPD, Afib admitted for sepsis, CHF+COPD on 06/01; GI consulted on 06/08 for upset stomach/nausea. 1. Nausea: Unclear etiology but acute in nature with recent onset after admission, pt attributed to antibiotics which could be the case. She is also a diabetic and is at risk for gastroparesis 2. Cellulitis 3. HCAP 4. Diarrhea 5. Morbid obesity Plan: -Supportive care with pain control and anti-emetics ---Ondansetron PRN -Continue famotidine BID -No further diarrhea making Cdiff unlikely and WBC count improving -Abd US with fatty liver -LFTs wnl -IV abx per ID -Further medical care per primary team Thank you for the consult, will sign off. Please call if questions. Pt seen and examined with Dr. Steele; see attestation for further recs/changes. <Medardo Steele - Last Filed: 06/11/18 16:41> Objective - Vital Signs/Intake and Output Vital Signs (last 24 hours): Temp Pulse Resp BP Pulse Ox 98 F 73 25 H 102/53 L 69 L 06/11/18 12:00 06/11/18 15:31 06/11/18 15:31 06/11/18 15:31 06/11/18 15:31 Intake and Output: 06/11/18 06/11/18 06:59 18:59 Intake Total 900 Output Total 450 Balance 450 - Medications Medications: Current Medications Acetaminophen (Tylenol 325mg Tab) 650 mg PO Q6H PRN PRN Reason: Pain, moderate (4-7) Last Admin: 06/09/18 21:16 Dose: 650 mg Albuterol/Ipratropium (Duoneb 3 Mg/0.5 Mg (3 Ml) Ud) 3 ml IH [id number] [facility] Last Admin: 06/11/18 07:35 Dose: 3 ml Benzocaine/Menthol (Cepacol Sore Throat) 1 rosa MT Q2H PRN PRN Reason: Sore Throat Last Admin: 06/10/18 10:45 Dose: 1 rosa Budesonide (Pulmicort Respules) 0.5 mg IH [id number] [facility] Last Admin: 06/11/18 07:35 Dose: 0.5 mg Al Hydrox/Mg Hydrox/Simethicone 30 ml/Diphenhydramine HCl 75 mg/Lidocaine 30 ml 0 ml PO Q2H PRN PRN Reason: Mouth/Throat Pain Last Admin: 06/07/18 10:25 Dose: 30 susp Digoxin (Lanoxin) 0.25 mg PO 1400 [facility] Last Admin: 06/11/18 13:35 Dose: 0.25 mg Diltiazem HCl (Cardizem) 60 mg PO Q8 [facility] Last Admin: 06/11/18 13:35 Dose: 60 mg Famotidine (Pepcid) 40 mg PO 1000,2200 [facility] Last Admin: 06/11/18 10:17 Dose: 40 mg Hydrocortisone Sodium Succinate (Solu-Cortef) 50 mg IVP Q6H [facility] Last Admin: 06/11/18 10:13 Dose: 50 mg Vancomycin HCl (Vancomycin 1gm) 1 gm in 250 mls @ 167 mls/hr IVPB 0600,1800 [facility]; Protocol Last Admin: 06/11/18 06:12 Dose: 167 mls/hr Insulin Human Regular (Humulin R Med) 0 units SC ACHS [facility]; Protocol Last Admin: 06/11/18 13:33 Dose: Not Given Levothyroxine Sodium (Synthroid) 25 mcg PO DAILY [facility] Last Admin: 06/11/18 10:14 Dose: 25 mcg Metformin HCl (Glucophage) 1,000 mg PO BID [facility] Last Admin: 06/11/18 10:30 Dose: 1,000 mg Midodrine (Proamatine) 5 mg PO TID [facility] Last Admin: 06/11/18 13:35 Dose: 5 mg Nystatin (Nystatin Oral Susp) 5 ml PO QID [facility] Last Admin: 06/11/18 13:37 Dose: 5 ml Ondansetron HCl (Zofran Inj) 4 mg IVP Q6H PRN PRN Reason: Nausea/Vomiting Last Admin: 06/11/18 09:43 Dose: 4 mg Silver Sulfadiazine (Silvadene 1% 25 Gm) 0 gm TP Q12H [facility] Last Admin: 06/11/18 13:32 Dose: 25 gm Warfarin Sodium (Coumadin) 2.5 mg PO 1800 [facility]; Protocol - Labs Labs: 06/11/18 06:30 06/11/18 06:30 PT 30.5 SECONDS (9.4-12.5) H 06/11/18 06:30 INR 2.60 06/11/18 06:30 APTT 36.2 Seconds (25.1-36.5) 06/01/18 15:10 Attending/Attestation - Attestation I have personally seen and examined this patient.: Yes I have fully participated in the care of the patient.: Yes I have reviewed all pertinent clinical information, including history, physical exam and plan: Yes Notes (Text): 06/11/18 16:38 I have seen and examined patient with GI fellow. No acute events overnight, she is seen resting in bed comfortably. She denies abdominal pain, nausea, vomiting, fever/chills. Tolerating PO diet without difficulty. DM CHF COPD Morbid obesity (BMI 81) Sepsis Atrial fibrillation Nausea, vomiting - resolved - Diet as tolerated - Anti-emetic therapy PRN - Continue with antibiotic therapy - No further planned GI intervention at this time, will sign off case. Please reconsult as necessary, thank you.
--- NOTE | 2018-06-11 11:04 | PN ---
DATE: 06/11/2018 SUBJECTIVE: She is resting in the Intensive Care Unit in bed. She slept fairly well. She was nauseous this morning. She is to get some Zofran. I discussed it with the nurse. Also, I had a long discussion with the about her situation and condition. MEDICATIONS: She is on Cardizem, DuoNebs, Glucophage, insulin, Lanoxin, Levophed, Merrem IV, nystatin, Pepcid, ProAmatine, Pulmicort, Silvadene, Solu-Cortef, Synthroid, Tylenol, vancomycin and Zofran. PHYSICAL EXAMINATION: VITAL SIGNS: She has a 97.5 temp; 103 pulse, also the pulse is down to 83; 103/48 blood pressure, she has been over 100 blood pressure for the past 24 hours, which is good; 21 respiratory rate; 100% O2 sat, down to 63% O2 sat. GENERAL: She is alert, feeling a little bit better overall, a little nauseous today though. She is trying to eat. HEART: Regular rate. LUNGS: Decreased breath sounds. Poor inspiration. ABDOMEN: Soft, nontender. Positive bowel sounds. No guarding, no rebound, no CVA tenderness. EXTREMITIES: Still very edematous with lymphedema. LABORATORY DATA: She has a 16.5 white count, it is the best it has been. When she came in, it was 25, it was 18, now it is 16.5. Hopefully, continues to go down with the antibiotics. Hemoglobin is 9.4, hematocrit 29.6, platelets of 476. The INR is 2.6. I am going to start her up on the Coumadin again. 136 sodium, potassium 3.9, BUN 14, creatinine 0.6, GFR is greater than 60, sugar is 124, calcium is 7.8, total bili is 0.6, AST is 20, ALT is 15, alk phos 144, total protein is 5.4. 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 She is morbidly obese. She has got coronary artery disease, congestive heart failure, diabetes, atrial fibrillation, chronic edema, chronic obstructive pulmonary disease, severe sepsis, bilateral lower extremity cellulitis, right-sided significant infection, a little [id number] myocardial infarction. We will continue aggressive treatment and care. Long discussion with the . Check her labs tomorrow. Hopefully, the white count will continue to come down. We will check her INR tomorrow too and restart the Coumadin. Alan Mann DO
--- NOTE | 2018-06-11 11:13 | PN ---
DATE: 06/11/2018 CARDIOLOGY FOLLOWUP SUBJECTIVE: The patient is awake, alert without dyspnea, without chest pain. PHYSICAL EXAMINATION: VITAL SIGNS: Blood pressure is 103/48, the heart rate is 100. NECK: Negative JVD. LUNGS: Decreased breath sounds. HEART: Reveals S1, S2. EXTREMITIES: Chronic edema. LABORATORY DATA: White count remains elevated at 16.5, hemoglobin is 9.4. Chemistries: BUN and creatinine are unremarkable. IMPRESSION: 1. [id number] myocardial infarction. 2. Hypotension (may not be an accurate blood pressure measurement). 3. History of pulmonary hypertension. 4. Morbid obesity. 5. History of normal left ventricular function. Given these findings, her heart rate is better by decreasing her IV Levophed. I would not want to place a central line to measure her blood pressure. We will continue medical therapy. Ryan Turk MD
--- NOTE | 2018-06-11 11:21 | RAD ---
Date of service: 06/11/2018 HISTORY: r/o pneumonia COMPARISON: 06/07/2018 FINDINGS: LUNGS: No active pulmonary disease. PLEURA: No significant pleural effusion identified, no pneumothorax apparent. CARDIOVASCULAR: Aortic calcification Moderate to severe cardiomegaly mild pulmonary vascular congestion OSSEOUS STRUCTURES: No significant abnormalities. VISUALIZED UPPER ABDOMEN: Normal. OTHER FINDINGS: None. IMPRESSION: Moderate cardiomegaly with mild pulmonary vascular congestion
--- NOTE | 2018-06-11 11:59 | CP.CCUPN ---
<Billy Willson - Last Filed: 06/11/18 12:34> CCU Subjective - Physician Review Subjective (Free Text): 06/11/18 12:08 Patient seen and examined at bedside in no acute distress. Discussed with patient the reason she was on levophed. Patient states she has no complaints overnight. CCU Objective - Vital Signs / Intake & Output Vital Signs (Last 4 hours): Vital Signs Temp Pulse Resp BP Pulse Ox 06/11/18 11:00 106 H 20 110/74 92 L 06/11/18 10:45 90 27 H 129/48 L 93 L 06/11/18 10:30 96 H 25 H 100 06/11/18 10:00 109 H 41 H 92/48 L 97 06/11/18 09:56 121 H 60 H 06/11/18 09:55 105 H 18 06/11/18 09:54 104 H 38 H 06/11/18 09:53 109 H 06/11/18 09:52 98 H 36 H 06/11/18 09:51 125 H 26 H 06/11/18 09:50 110 H 25 H 06/11/18 09:49 124 H 37 H 06/11/18 09:48 117 H 19 06/11/18 09:47 116 H 33 H 06/11/18 09:46 101 H 27 H 06/11/18 09:31 103 H 31 H 88/39 L 92 L 06/11/18 09:30 99 H 98 06/11/18 09:03 101 H 27 H 104/50 L 70 L 06/11/18 09:01 108 H 28 H 76/50 L 70 L 06/11/18 09:00 107 H 21 81 L 06/11/18 08:30 103 H 21 103/48 L 63 L 06/11/18 08:00 97.5 F L 83 18 100/44 L 100 Intake and Output (Last 8hrs): Intake & Output 06/10/18 06/11/18 06/11/18 22:59 06:59 14:59 Intake Total 1300 900 Output Total 400 450 Balance 900 450 Intake: IV 350 600 abx 350 350 Oral 950 300 Output: Urine 400 450 Urine, Voided 400 450 Stool 0 0 - Physical Exam Head: Positive for: Atraumatic, Normocephalic Pupils: Positive for: PERRL Extroacular Muscles: Positive for: EOMI Conjunctiva: Positive for: Normal Mouth: Positive for: Dry Pharnyx: Positive for: Normal. Negative for: ERYTHEMA, EXUDATE, TONSILS ENLARGED Nose (External): Positive for: Atraumatic Nose (Internal): Positive for: No Active Bleeding Neck: Positive for: Normal Range of Motion. Negative for: Meningeal Signs, MIDLINE TENDERNESS, Lymphadenopathy Respiratory/Chest: Positive for: Good Air Exchange, Wheezes (mild, diffuse). Negative for: Respiratory Distress, Accessory Muscle Use, Rales, Rhonchi Cardiovascular: Positive for: Irregular Rhythm (known hx of afib), Tachycardic. Negative for: Murmurs Abdomen: Negative for: Tenderness, Distention, Peritoneal Signs, Rebound, Guarding Back: Positive for: Normal Inspection Upper Extremity: Positive for: Normal Inspection, NORMAL PULSES. Negative for: Cyanosis, Edema Lower Extremity: Positive for: Edema (pitting edema (chronic)), Other (Extremely large thighs with multiple chronic wounds on posterior and lateral aspects b/l at multiple stages of healing. No acute signs of infections seen.). Negative for: NORMAL PULSES, Tenderness Neurological: Positive for: GCS=15, CN II-XII Intact, Speech Normal Skin: Positive for: Warm, Dry, Normal Color. Negative for: Rashes Psychiatric: Positive for: Alert, Oriented x 3, Normal Insight, Normal Concentration - Medications Active Medications: Active Medications Generic Name Dose Route Start Last Admin Trade Name Freq PRN Reason Stop Dose Admin Acetaminophen 650 mg 06/01/18 19:01 06/09/18 21:16 Tylenol 325mg Tab PO 650 mg Q6H PRN Administration Pain, moderate (4-7) Albuterol/Ipratropium 3 ml 06/03/18 14:00 06/11/18 07:35 Duoneb 3 Mg/0.5 Mg (3 Ml) Ud IH 3 ml [id number] RONI Administration Benzocaine/Menthol 1 rosa 06/04/18 08:24 06/10/18 10:45 Cepacol Sore Throat MT 1 rosa Q2H PRN Administration Sore Throat Budesonide 0.5 mg 06/04/18 08:00 06/11/18 07:35 Pulmicort Respules IH 0.5 mg [id number] RONI Administration Al Hydrox/Mg Hydrox/ 0 ml 06/04/18 10:08 06/07/18 10:25 Simethicone 30 ml/ PO 30 susp Diphenhydramine HCl 75 mg/ Q2H PRN Administration Lidocaine 30 ml Mouth/Throat Pain Digoxin 0.25 mg 06/10/18 14:00 06/10/18 13:37 Lanoxin PO 0.25 mg 1400 RONI Administration Diltiazem HCl 60 mg 06/10/18 14:00 06/11/18 06:07 Cardizem PO 60 mg Q8 RONI Administration Famotidine 40 mg 06/09/18 22:00 06/11/18 10:17 Pepcid PO 40 mg 1000,2200 RONI Administration Hydrocortisone Sodium Succinate 50 mg 06/11/18 09:45 06/11/18 10:13 Solu-Cortef IVP 50 mg Q6H RONI Administration NOREPINEPHRINE BIT/0.9 % NACL 4 mg in 250 mls @ 15 mls/hr 06/01/18 18:02 06/11/18 06:11 Levophed 4 Mg/ 250 Ml Ns Premixed IV 6 mcg/min .[id number] PRN 22.5 mls/hr TITRATE PER MD ORDER Administration Protocol 4 MCG/MIN Vancomycin HCl 1 gm in 250 mls @ 167 mls/hr 06/08/18 18:00 06/11/18 06:12 Vancomycin 1gm IVPB 167 mls/hr 0600,1800 RONI Administration Protocol Insulin Human Regular 0 units 06/01/18 22:00 06/11/18 09:38 Humulin R Med SC Not Given ACHS [facility] Protocol Levothyroxine Sodium 25 mcg 06/02/18 10:00 06/11/18 10:14 Synthroid PO 25 mcg DAILY RONI Administration Metformin HCl 1,000 mg 06/04/18 10:00 06/11/18 10:30 Glucophage PO 1,000 mg BID RONI Administration Midodrine 5 mg 06/11/18 08:30 06/11/18 10:13 Proamatine PO Not Given TID RONI Nystatin 5 ml 06/04/18 14:00 06/11/18 10:17 Nystatin Oral Susp PO 5 ml QID RONI Administration Ondansetron HCl 4 mg 06/01/18 19:01 06/11/18 09:43 Zofran Inj IVP 4 mg Q6H PRN Administration Nausea/Vomiting Silver Sulfadiazine 0 gm 06/09/18 10:30 06/10/18 22:00 Silvadene 1% 25 Gm TP 1 gm Q12H RONI Administration Warfarin Sodium 2.5 mg 06/11/18 18:00 Coumadin PO 1800 RONI Protocol - Patient Studies Lab Studies: Lab Studies 06/11/18 06/11/18 06/11/18 Range/Units 10:30 07:23 06:30 WBC (4.5-11.0) 10^3/uL RBC (3.5-6.1) 10^6/uL Hgb (12.0-16.0) g/dL Hct (36.0-48.0) % MCV (80.0-105.0) fl MCH (25.0-35.0) pg MCHC (31.0-37.0) g/dl RDW (11.5-14.5) % Plt Count (120.0-450.0) 10^3/uL MPV (7.0-11.0) fl PT 30.5 H (9.4-12.5) SECONDS INR 2.60 Sodium (132-148) mmol/L Potassium (3.6-5.0) mmol/L Chloride (98-107) mmol/L Carbon Dioxide (21-33) mmol/L Anion Gap (10-20) BUN (7-21) mg/dL Creatinine (0.7-1.2) mg/dl Est GFR ( Amer) Est GFR (Non-Af Amer) POC Glucose (mg/dL) 95 (65-110) mg/dL Random Glucose (70-110) mg/dL Calcium (8.4-10.5) mg/dL Total Bilirubin (0.2-1.3) mg/dL AST (14-36) U/L ALT (7-56) U/L Alkaline Phosphatase (38-126) U/L Total Protein (5.8-8.3) g/dL Albumin (3.0-4.8) g/dL Globulin gm/dL Albumin/Globulin Ratio (1.1-1.8) TSH 3rd Generation 2.07 (0.46-4.68) mIU/mL Digoxin (0.8-2.0) ng/mL 06/11/18 06/11/18 06/10/18 Range/Units 06:30 06:30 22:19 WBC 16.5 H (4.5-11.0) 10^3/uL RBC 3.59 (3.5-6.1) 10^6/uL Hgb 9.4 L (12.0-16.0) g/dL Hct 29.6 L (36.0-48.0) % MCV 82.5 (80.0-105.0) fl MCH 26.2 (25.0-35.0) pg MCHC 31.8 (31.0-37.0) g/dl RDW 16.6 H (11.5-14.5) % Plt Count 476 H (120.0-450.0) 10^3/uL MPV 9.9 (7.0-11.0) fl PT (9.4-12.5) SECONDS INR Sodium 136 (132-148) mmol/L Potassium 3.9 (3.6-5.0) mmol/L Chloride 105 (98-107) mmol/L Carbon Dioxide 28 (21-33) mmol/L Anion Gap 7 L (10-20) BUN 14 (7-21) mg/dL Creatinine 0.6 L (0.7-1.2) mg/dl Est GFR ( Amer) > 60 Est GFR (Non-Af Amer) > 60 POC Glucose (mg/dL) 124 H (65-110) mg/dL Random Glucose 124 H (70-110) mg/dL Calcium 7.8 L (8.4-10.5) mg/dL Total Bilirubin 0.6 (0.2-1.3) mg/dL AST 20 (14-36) U/L ALT 15 (7-56) U/L Alkaline Phosphatase 144 H (38-126) U/L Total Protein 5.4 L (5.8-8.3) g/dL Albumin 2.2 L (3.0-4.8) g/dL Globulin 3.2 gm/dL Albumin/Globulin Ratio 0.7 L (1.1-1.8) TSH 3rd Generation (0.46-4.68) mIU/mL Digoxin (0.8-2.0) ng/mL 06/10/18 06/10/18 06/10/18 Range/Units 15:28 13:50 10:31 WBC (4.5-11.0) 10^3/uL RBC (3.5-6.1) 10^6/uL Hgb (12.0-16.0) g/dL Hct (36.0-48.0) % MCV (80.0-105.0) fl MCH (25.0-35.0) pg MCHC (31.0-37.0) g/dl RDW (11.5-14.5) % Plt Count (120.0-450.0) 10^3/uL MPV (7.0-11.0) fl PT (9.4-12.5) SECONDS INR Sodium (132-148) mmol/L Potassium (3.6-5.0) mmol/L Chloride (98-107) mmol/L Carbon Dioxide (21-33) mmol/L Anion Gap (10-20) BUN (7-21) mg/dL Creatinine (0.7-1.2) mg/dl Est GFR ( Amer) Est GFR (Non-Af Amer) POC Glucose (mg/dL) 137 H 129 H (65-110) mg/dL Random Glucose (70-110) mg/dL Calcium (8.4-10.5) mg/dL Total Bilirubin (0.2-1.3) mg/dL AST (14-36) U/L ALT (7-56) U/L Alkaline Phosphatase (38-126) U/L Total Protein (5.8-8.3) g/dL Albumin (3.0-4.8) g/dL Globulin gm/dL Albumin/Globulin Ratio (1.1-1.8) TSH 3rd Generation (0.46-4.68) mIU/mL Digoxin 1.1 (0.8-2.0) ng/mL 06/10/18 06/09/18 06/09/18 Range/Units 07:31 21:37 16:23 WBC (4.5-11.0) 10^3/uL RBC (3.5-6.1) 10^6/uL Hgb (12.0-16.0) g/dL Hct (36.0-48.0) % MCV (80.0-105.0) fl MCH (25.0-35.0) pg MCHC (31.0-37.0) g/dl RDW (11.5-14.5) % Plt Count (120.0-450.0) 10^3/uL MPV (7.0-11.0) fl PT (9.4-12.5) SECONDS INR Sodium (132-148) mmol/L Potassium (3.6-5.0) mmol/L Chloride (98-107) mmol/L Carbon Dioxide (21-33) mmol/L Anion Gap (10-20) BUN (7-21) mg/dL Creatinine (0.7-1.2) mg/dl Est GFR ( Amer) Est GFR (Non-Af Amer) POC Glucose (mg/dL) 117 H 147 H 119 H (65-110) mg/dL Random Glucose (70-110) mg/dL Calcium (8.4-10.5) mg/dL Total Bilirubin (0.2-1.3) mg/dL AST (14-36) U/L ALT (7-56) U/L Alkaline Phosphatase (38-126) U/L Total Protein (5.8-8.3) g/dL Albumin (3.0-4.8) g/dL Globulin gm/dL Albumin/Globulin Ratio (1.1-1.8) TSH 3rd Generation (0.46-4.68) mIU/mL Digoxin (0.8-2.0) ng/mL 06/09/18 06/09/18 06/08/18 Range/Units 11:25 07:26 21:48 WBC (4.5-11.0) 10^3/uL RBC (3.5-6.1) 10^6/uL Hgb (12.0-16.0) g/dL Hct (36.0-48.0) % MCV (80.0-105.0) fl MCH (25.0-35.0) pg MCHC (31.0-37.0) g/dl RDW (11.5-14.5) % Plt Count (120.0-450.0) 10^3/uL MPV (7.0-11.0) fl PT (9.4-12.5) SECONDS INR Sodium (132-148) mmol/L Potassium (3.6-5.0) mmol/L Chloride (98-107) mmol/L Carbon Dioxide (21-33) mmol/L Anion Gap (10-20) BUN (7-21) mg/dL Creatinine (0.7-1.2) mg/dl Est GFR ( Amer) Est GFR (Non-Af Amer) POC Glucose (mg/dL) 128 H 101 106 (65-110) mg/dL Random Glucose (70-110) mg/dL Calcium (8.4-10.5) mg/dL Total Bilirubin (0.2-1.3) mg/dL AST (14-36) U/L ALT (7-56) U/L Alkaline Phosphatase (38-126) U/L Total Protein (5.8-8.3) g/dL Albumin (3.0-4.8) g/dL Globulin gm/dL Albumin/Globulin Ratio (1.1-1.8) TSH 3rd Generation (0.46-4.68) mIU/mL Digoxin (0.8-2.0) ng/mL Laboratory Results - last 24 hr 06/08/18 06/09/18 06/09/18 21:48 07:26 11:25 WBC RBC Hgb Hct MCV MCH MCHC RDW Plt Count MPV PT INR Sodium Potassium Chloride Carbon Dioxide Anion Gap BUN Creatinine Est GFR ( Amer) Est GFR (Non-Af Amer) POC Glucose (mg/dL) 106 101 128 H Random Glucose Calcium Total Bilirubin AST ALT Alkaline Phosphatase Total Protein Albumin Globulin Albumin/Globulin Ratio TSH 3rd Generation Digoxin 06/09/18 06/09/18 06/10/18 16:23 21:37 07:31 WBC RBC Hgb Hct MCV MCH MCHC RDW Plt Count MPV PT INR Sodium Potassium Chloride Carbon Dioxide Anion Gap BUN Creatinine Est GFR ( Amer) Est GFR (Non-Af Amer) POC Glucose (mg/dL) 119 H 147 H 117 H Random Glucose Calcium Total Bilirubin AST ALT Alkaline Phosphatase Total Protein Albumin Globulin Albumin/Globulin Ratio TSH 3rd Generation Digoxin 06/10/18 06/10/18 06/10/18 10:31 13:50 15:28 WBC RBC Hgb Hct MCV MCH MCHC RDW Plt Count MPV PT INR Sodium Potassium Chloride Carbon Dioxide Anion Gap BUN Creatinine Est GFR ( Amer) Est GFR (Non-Af Amer) POC Glucose (mg/dL) 129 H 137 H Random Glucose Calcium Total Bilirubin AST ALT Alkaline Phosphatase Total Protein Albumin Globulin Albumin/Globulin Ratio TSH 3rd Generation Digoxin 1.1 06/10/18 06/11/18 06/11/18 22:19 06:30 06:30 WBC 16.5 H RBC 3.59 Hgb 9.4 L Hct 29.6 L MCV 82.5 MCH 26.2 MCHC 31.8 RDW 16.6 H Plt Count 476 H MPV 9.9 PT INR Sodium 136 Potassium 3.9 Chloride 105 Carbon Dioxide 28 Anion Gap 7 L BUN 14 Creatinine 0.6 L Est GFR ( Amer) > 60 Est GFR (Non-Af Amer) > 60 POC Glucose (mg/dL) 124 H Random Glucose 124 H Calcium 7.8 L Total Bilirubin 0.6 AST 20 ALT 15 Alkaline Phosphatase 144 H Total Protein 5.4 L Albumin 2.2 L Globulin 3.2 Albumin/Globulin Ratio 0.7 L TSH 3rd Generation Digoxin 06/11/18 06/11/18 06/11/18 06:30 07:23 10:30 WBC RBC Hgb Hct MCV MCH MCHC RDW Plt Count MPV PT 30.5 H INR 2.60 Sodium Potassium Chloride Carbon Dioxide Anion Gap BUN Creatinine Est GFR ( Amer) Est GFR (Non-Af Amer) POC Glucose (mg/dL) 95 Random Glucose Calcium Total Bilirubin AST ALT Alkaline Phosphatase Total Protein Albumin Globulin Albumin/Globulin Ratio TSH 3rd Generation 2.07 Digoxin Fingerstick Blood Sugar Results: 95 Review of Systems - Constitutional Constitutional: absent: Fever, Chills - EENT Eyes: absent: Blurred Vision - Cardiovascular Cardiovascular: absent: Chest Pain - Respiratory Respiratory: absent: Cough - Gastrointestinal Gastrointestinal: Nausea - Genitourinary Genitourinary: absent: Dysuria Critical Care Progress Note - Nutrition Nutrition: Nutrition Category Date Time Status Consistent Carbohydrate [DIET] Diets 06/01/18 Dinner Ordered Assessment/Plan - Assessment and Plan (Free Text) Assessment: Patient is a 73 year old female, whose past medical history includes angina, PVD, congestive heart failure, A-Fib, peripheral edema, chronic obstructive pulmonary disease, emphysema, asthma, septicemia, diabetes type 2 and morbid obesity found to be septic secondary to b/l LE cellulitis and right sided pneumonia. Patient was transferred to ICU over weekend due to hypotension which required levophed drip. SEPSIS workup in progress. Plan: Neuro -AAO x 3 Cardiovascular -Maintain MAP>60 with SBP goal >80 -Discontinue Levophed -Continue with Digoxin -Continue with Diltiazem Pulmonary -Maintain O2 sat above 90% -Continue with duonebs, pulmicort ID -Continue with B/L cellulitis treatment Merrem and Vanc -Blood cultures, urine cultures, UA, CXR Endocrine -Continue with metformin -TSH within normal limits; continue with synthroid -Cortisol ordered -Replete electrolytes as needed <Ari Ferrer - Last Filed: 06/11/18 13:16> CCU Objective - Vital Signs / Intake & Output Vital Signs (Last 4 hours): Vital Signs Temp Pulse Resp BP Pulse Ox 06/11/18 12:30 98 H 18 107/84 100 06/11/18 12:00 98 F 99 H 24 98/49 L 83 L 06/11/18 11:30 91 H 25 H 109/67 79 L 06/11/18 11:00 106 H 20 110/74 92 L 06/11/18 10:45 90 27 H 129/48 L 93 L 06/11/18 10:30 96 H 25 H 100 06/11/18 10:00 109 H 41 H 92/48 L 97 06/11/18 09:56 121 H 60 H 06/11/18 09:55 105 H 18 06/11/18 09:54 104 H 38 H 06/11/18 09:53 109 H 06/11/18 09:52 98 H 36 H 06/11/18 09:51 125 H 26 H 06/11/18 09:50 110 H 25 H 06/11/18 09:49 124 H 37 H 06/11/18 09:48 117 H 19 06/11/18 09:47 116 H 33 H 06/11/18 09:46 101 H 27 H 06/11/18 09:31 103 H 31 H 88/39 L 92 L 06/11/18 09:30 99 H 98 Intake and Output (Last 8hrs): Intake & Output 06/10/18 06/11/18 06/11/18 22:59 06:59 14:59 Intake Total 1300 900 Output Total 400 450 Balance 900 450 Intake: IV 350 600 abx 350 350 Oral 950 300 Output: Urine 400 450 Urine, Voided 400 450 Stool 0 0 - Medications Active Medications: Active Medications Generic Name Dose Route Start Last Admin Trade Name Freq PRN Reason Stop Dose Admin Acetaminophen 650 mg 06/01/18 19:01 06/09/18 21:16 Tylenol 325mg Tab PO 650 mg Q6H PRN Administration Pain, moderate (4-7) Albuterol/Ipratropium 3 ml 06/03/18 14:00 06/11/18 07:35 Duoneb 3 Mg/0.5 Mg (3 Ml) Ud IH 3 ml [id number] RONI Administration Benzocaine/Menthol 1 rosa 06/04/18 08:24 06/10/18 10:45 Cepacol Sore Throat MT 1 rosa Q2H PRN Administration Sore Throat Budesonide 0.5 mg 06/04/18 08:00 06/11/18 07:35 Pulmicort Respules IH 0.5 mg [id number] RONI Administration Al Hydrox/Mg Hydrox/ 0 ml 06/04/18 10:08 06/07/18 10:25 Simethicone 30 ml/ PO 30 susp Diphenhydramine HCl 75 mg/ Q2H PRN Administration Lidocaine 30 ml Mouth/Throat Pain Digoxin 0.25 mg 06/10/18 14:00 06/10/18 13:37 Lanoxin PO 0.25 mg 1400 RONI Administration Diltiazem HCl 60 mg 06/10/18 14:00 06/11/18 06:07 Cardizem PO 60 mg Q8 RONI Administration Famotidine 40 mg 06/09/18 22:00 06/11/18 10:17 Pepcid PO 40 mg 1000,2200 RONI Administration Hydrocortisone Sodium Succinate 50 mg 06/11/18 09:45 06/11/18 10:13 Solu-Cortef IVP 50 mg Q6H RONI Administration Vancomycin HCl 1 gm in 250 mls @ 167 mls/hr 06/08/18 18:00 06/11/18 06:12 Vancomycin 1gm IVPB 167 mls/hr 0600,1800 RONI Administration Protocol Insulin Human Regular 0 units 06/01/18 22:00 06/11/18 09:38 Humulin R Med SC Not Given ACHS RONI Protocol Levothyroxine Sodium 25 mcg 06/02/18 10:00 06/11/18 10:14 Synthroid PO 25 mcg DAILY RONI Administration Metformin HCl 1,000 mg 06/04/18 10:00 06/11/18 10:30 Glucophage PO 1,000 mg BID RONI Administration Midodrine 5 mg 06/11/18 08:30 06/11/18 10:13 Proamatine PO Not Given TID RONI Nystatin 5 ml 06/04/18 14:00 06/11/18 10:17 Nystatin Oral Susp PO 5 ml QID RONI Administration Ondansetron HCl 4 mg 06/01/18 19:01 06/11/18 09:43 Zofran Inj IVP 4 mg Q6H PRN Administration Nausea/Vomiting Silver Sulfadiazine 0 gm 06/09/18 10:30 06/10/18 22:00 Silvadene 1% 25 Gm TP 1 gm Q12H RONI Administration Warfarin Sodium 2.5 mg 06/11/18 18:00 Coumadin PO 1800 RONI Protocol - Patient Studies Lab Studies: Lab Studies 06/11/18 06/11/18 06/11/18 Range/Units 10:30 07:23 06:30 WBC (4.5-11.0) 10^3/uL RBC (3.5-6.1) 10^6/uL Hgb (12.0-16.0) g/dL Hct (36.0-48.0) % MCV (80.0-105.0) fl MCH (25.0-35.0) pg MCHC (31.0-37.0) g/dl RDW (11.5-14.5) % Plt Count (120.0-450.0) 10^3/uL MPV (7.0-11.0) fl PT 30.5 H (9.4-12.5) SECONDS INR 2.60 Sodium (132-148) mmol/L Potassium (3.6-5.0) mmol/L Chloride (98-107) mmol/L Carbon Dioxide (21-33) mmol/L Anion Gap (10-20) BUN (7-21) mg/dL Creatinine (0.7-1.2) mg/dl Est GFR ( Amer) Est GFR (Non-Af Amer) POC Glucose (mg/dL) 95 (65-110) mg/dL Random Glucose (70-110) mg/dL Calcium (8.4-10.5) mg/dL Total Bilirubin (0.2-1.3) mg/dL AST (14-36) U/L ALT (7-56) U/L Alkaline Phosphatase (38-126) U/L Total Protein (5.8-8.3) g/dL Albumin (3.0-4.8) g/dL Globulin gm/dL Albumin/Globulin Ratio (1.1-1.8) TSH 3rd Generation 2.07 (0.46-4.68) mIU/mL Digoxin (0.8-2.0) ng/mL 06/11/18 06/11/18 06/10/18 Range/Units 06:30 06:30 22:19 WBC 16.5 H (4.5-11.0) 10^3/uL RBC 3.59 (3.5-6.1) 10^6/uL Hgb 9.4 L (12.0-16.0) g/dL Hct 29.6 L (36.0-48.0) % MCV 82.5 (80.0-105.0) fl MCH 26.2 (25.0-35.0) pg MCHC 31.8 (31.0-37.0) g/dl RDW 16.6 H (11.5-14.5) % Plt Count 476 H (120.0-450.0) 10^3/uL MPV 9.9 (7.0-11.0) fl PT (9.4-12.5) SECONDS INR Sodium 136 (132-148) mmol/L Potassium 3.9 (3.6-5.0) mmol/L Chloride 105 (98-107) mmol/L Carbon Dioxide 28 (21-33) mmol/L Anion Gap 7 L (10-20) BUN 14 (7-21) mg/dL Creatinine 0.6 L (0.7-1.2) mg/dl Est GFR ( Amer) > 60 Est GFR (Non-Af Amer) > 60 POC Glucose (mg/dL) 124 H (65-110) mg/dL Random Glucose 124 H (70-110) mg/dL Calcium 7.8 L (8.4-10.5) mg/dL Total Bilirubin 0.6 (0.2-1.3) mg/dL AST 20 (14-36) U/L ALT 15 (7-56) U/L Alkaline Phosphatase 144 H (38-126) U/L Total Protein 5.4 L (5.8-8.3) g/dL Albumin 2.2 L (3.0-4.8) g/dL Globulin 3.2 gm/dL Albumin/Globulin Ratio 0.7 L (1.1-1.8) TSH 3rd Generation (0.46-4.68) mIU/mL Digoxin (0.8-2.0) ng/mL 06/10/18 06/10/18 06/10/18 Range/Units 15:28 13:50 10:31 WBC (4.5-11.0) 10^3/uL RBC (3.5-6.1) 10^6/uL Hgb (12.0-16.0) g/dL Hct (36.0-48.0) % MCV (80.0-105.0) fl MCH (25.0-35.0) pg MCHC (31.0-37.0) g/dl RDW (11.5-14.5) % Plt Count (120.0-450.0) 10^3/uL MPV (7.0-11.0) fl PT (9.4-12.5) SECONDS INR Sodium (132-148) mmol/L Potassium (3.6-5.0) mmol/L Chloride (98-107) mmol/L Carbon Dioxide (21-33) mmol/L Anion Gap (10-20) BUN (7-21) mg/dL Creatinine (0.7-1.2) mg/dl Est GFR ( Amer) Est GFR (Non-Af Amer) POC Glucose (mg/dL) 137 H 129 H (65-110) mg/dL Random Glucose (70-110) mg/dL Calcium (8.4-10.5) mg/dL Total Bilirubin (0.2-1.3) mg/dL AST (14-36) U/L ALT (7-56) U/L Alkaline Phosphatase (38-126) U/L Total Protein (5.8-8.3) g/dL Albumin (3.0-4.8) g/dL Globulin gm/dL Albumin/Globulin Ratio (1.1-1.8) TSH 3rd Generation (0.46-4.68) mIU/mL Digoxin 1.1 (0.8-2.0) ng/mL 06/10/18 06/09/18 06/09/18 Range/Units 07:31 21:37 16:23 WBC (4.5-11.0) 10^3/uL RBC (3.5-6.1) 10^6/uL Hgb (12.0-16.0) g/dL Hct (36.0-48.0) % MCV (80.0-105.0) fl MCH (25.0-35.0) pg MCHC (31.0-37.0) g/dl RDW (11.5-14.5) % Plt Count (120.0-450.0) 10^3/uL MPV (7.0-11.0) fl PT (9.4-12.5) SECONDS INR Sodium (132-148) mmol/L Potassium (3.6-5.0) mmol/L Chloride (98-107) mmol/L Carbon Dioxide (21-33) mmol/L Anion Gap (10-20) BUN (7-21) mg/dL Creatinine (0.7-1.2) mg/dl Est GFR ( Amer) Est GFR (Non-Af Amer) POC Glucose (mg/dL) 117 H 147 H 119 H (65-110) mg/dL Random Glucose (70-110) mg/dL Calcium (8.4-10.5) mg/dL Total Bilirubin (0.2-1.3) mg/dL AST (14-36) U/L ALT (7-56) U/L Alkaline Phosphatase (38-126) U/L Total Protein (5.8-8.3) g/dL Albumin (3.0-4.8) g/dL Globulin gm/dL Albumin/Globulin Ratio (1.1-1.8) TSH 3rd Generation (0.46-4.68) mIU/mL Digoxin (0.8-2.0) ng/mL 06/09/18 06/09/18 06/08/18 Range/Units 11:25 07:26 21:48 WBC (4.5-11.0) 10^3/uL RBC (3.5-6.1) 10^6/uL Hgb (12.0-16.0) g/dL Hct (36.0-48.0) % MCV (80.0-105.0) fl MCH (25.0-35.0) pg MCHC (31.0-37.0) g/dl RDW (11.5-14.5) % Plt Count (120.0-450.0) 10^3/uL MPV (7.0-11.0) fl PT (9.4-12.5) SECONDS INR Sodium (132-148) mmol/L Potassium (3.6-5.0) mmol/L Chloride (98-107) mmol/L Carbon Dioxide (21-33) mmol/L Anion Gap (10-20) BUN (7-21) mg/dL Creatinine (0.7-1.2) mg/dl Est GFR ( Amer) Est GFR (Non-Af Amer) POC Glucose (mg/dL) 128 H 101 106 (65-110) mg/dL Random Glucose (70-110) mg/dL Calcium (8.4-10.5) mg/dL Total Bilirubin (0.2-1.3) mg/dL AST (14-36) U/L ALT (7-56) U/L Alkaline Phosphatase (38-126) U/L Total Protein (5.8-8.3) g/dL Albumin (3.0-4.8) g/dL Globulin gm/dL Albumin/Globulin Ratio (1.1-1.8) TSH 3rd Generation (0.46-4.68) mIU/mL Digoxin (0.8-2.0) ng/mL Laboratory Results - last 24 hr 06/08/18 06/09/18 06/09/18 21:48 07:26 11:25 WBC RBC Hgb Hct MCV MCH MCHC RDW Plt Count MPV PT INR Sodium Potassium Chloride Carbon Dioxide Anion Gap BUN Creatinine Est GFR ( Amer) Est GFR (Non-Af Amer) POC Glucose (mg/dL) 106 101 128 H Random Glucose Calcium Total Bilirubin AST ALT Alkaline Phosphatase Total Protein Albumin Globulin Albumin/Globulin Ratio TSH 3rd Generation Digoxin 06/09/18 06/09/18 06/10/18 16:23 21:37 07:31 WBC RBC Hgb Hct MCV MCH MCHC RDW Plt Count MPV PT INR Sodium Potassium Chloride Carbon Dioxide Anion Gap BUN Creatinine Est GFR ( Amer) Est GFR (Non-Af Amer) POC Glucose (mg/dL) 119 H 147 H 117 H Random Glucose Calcium Total Bilirubin AST ALT Alkaline Phosphatase Total Protein Albumin Globulin Albumin/Globulin Ratio TSH 3rd Generation Digoxin 06/10/18 06/10/18 06/10/18 10:31 13:50 15:28 WBC RBC Hgb Hct MCV MCH MCHC RDW Plt Count MPV PT INR Sodium Potassium Chloride Carbon Dioxide Anion Gap BUN Creatinine Est GFR ( Amer) Est GFR (Non-Af Amer) POC Glucose (mg/dL) 129 H 137 H Random Glucose Calcium Total Bilirubin AST ALT Alkaline Phosphatase Total Protein Albumin Globulin Albumin/Globulin Ratio TSH 3rd Generation Digoxin 1.1 06/10/18 06/11/18 06/11/18 22:19 06:30 06:30 WBC 16.5 H RBC 3.59 Hgb 9.4 L Hct 29.6 L MCV 82.5 MCH 26.2 MCHC 31.8 RDW 16.6 H Plt Count 476 H MPV 9.9 PT INR Sodium 136 Potassium 3.9 Chloride 105 Carbon Dioxide 28 Anion Gap 7 L BUN 14 Creatinine 0.6 L Est GFR ( Amer) > 60 Est GFR (Non-Af Amer) > 60 POC Glucose (mg/dL) 124 H Random Glucose 124 H Calcium 7.8 L Total Bilirubin 0.6 AST 20 ALT 15 Alkaline Phosphatase 144 H Total Protein 5.4 L Albumin 2.2 L Globulin 3.2 Albumin/Globulin Ratio 0.7 L TSH 3rd Generation Digoxin 06/11/18 06/11/18 06/11/18 06:30 07:23 10:30 WBC RBC Hgb Hct MCV MCH MCHC RDW Plt Count MPV PT 30.5 H INR 2.60 Sodium Potassium Chloride Carbon Dioxide Anion Gap BUN Creatinine Est GFR ( Amer) Est GFR (Non-Af Amer) POC Glucose (mg/dL) 95 Random Glucose Calcium Total Bilirubin AST ALT Alkaline Phosphatase Total Protein Albumin Globulin Albumin/Globulin Ratio TSH 3rd Generation 2.07 Digoxin Critical Care Progress Note - Nutrition Nutrition: Nutrition Category Date Time Status Consistent Carbohydrate [DIET] Diets 06/01/18 Dinner Ordered Assessment/Plan - Assessment and Plan (Free Text) Plan: Patient seen and examined on rounds with resident, agree with note with following additions/exceptions: Patient is 73yo female with PMHx CAD, PVD, congestive heart failure, A-Fib, peripheral edema, chronic obstructive pulmonary disease, emphysema, asthma, septicemia, diabetes type 2 and morbid obesity, admitted with shock, likely secondary to LE cellulitis and PNA. Currently on low dose Levophed. Afebrile, BP stable, AAOx3, NAD Cardiology, ID, following Shock, Septic CAD PVD CHF Afib COPD DM Recommend: - supp o2 as needed,g oal sat 90%, IS - septic workup, UA, UCx, BCx, Check Procal - Check Cortisol, TSH - Start on Stress dose steroids, Solu-Cortef 50mg Q6hr - Start Midodrine 5mg TID - titrate off Levoped - A/C as per cardiology - follow up ID - follow up cardiology - GI ppx - DVT ppx - Monitor in MICU Critical care time 35 minutes
[2018-06-11] MEDS: Silver Sulfadiazine 1% Cream (25 gm) TP SCH ×2 (13:32→22:30)
[2018-06-11] MEDS: Digoxin 250 mcg (0.25 mg) Tab PO SCH (13:35)
[2018-06-11] MEDS: Benzocaine/Menthol (Cepacol) Lozenge MT PRN (14:45)
[2018-06-11 17:17] LABS: URINE BILIRUBIN NEGATIVE (NEGATIVE); URINE BLOOD NEGATIVE (NEGATIVE); URINE GLUCOSE (UA) NEGATIVE (NEGATIVE); URINE LEUKOCYTE ESTERASE NEGATIVE Leu/uL (NEGATIVE); URINE PROTEIN TRACE mg/dL (<30 mg/dL); URINE UROBILINOGEN 0.2 E.U./dL (<1 E.U./dL)
[2018-06-11 17:18] LABS: URINE APPEARANCE SLIGHT-CLOUDY (CLEAR); URINE COLOR YELLOW (YELLOW)
[2018-06-11 17:28] LABS: URINE BACTERIA MANY (NEG); URINE RBC 0 - 2 /hpf (0-2); URINE WBC NEGATIVE /hpf (0-6)
[2018-06-12] MEDS: Albuterol-Ipratrop 3 mg / 0.5 (3 ml) UD IH SCH ×4 (01:18→20:33)
[2018-06-12 07:01] LABS: INR 2.64
[2018-06-12 07:12] LABS: ALB/GLOB RATIO 0.7 (1.1-1.8); ALBUMIN 2.2 g/dL (3.0-4.8); ALT/SGPT 18 U/L (7-56); AST/SGOT 14 U/L (14-36); BLOOD UREA NITROGEN 15 mg/dL (7-21); GFR NON-AFRICAN AMERICAN > 60
[2018-06-12 07:15] LABS: HEMOGLOBIN 8.7 g/dL (12.0-16.0); MEAN CORPUSCULAR HEMOGLOBIN 25.9 pg (25.0-35.0); MEAN CORPUSCULAR HGB CONC 31.2 g/dl (31.0-37.0); MEAN PLATELET VOLUME 9.9 fl (7.0-11.0); RBC 3.36 10^6/uL (3.5-6.1); RED CELL DISTRIBUTION WIDTH 16.5 % (11.5-14.5); WHITE BLOOD COUNT 17.2 10^3/uL (4.5-11.0)
[2018-06-12] MEDS: Budesonide 0.5 mg/2 ml Inhal Susp UD IH SCH ×2 (07:55→20:34)
--- NOTE | 2018-06-12 08:14 | PN ---
DATE: 06/12/2018 SUBJECTIVE: The patient is without dyspnea. PHYSICAL EXAMINATION: VITAL SIGNS: Blood pressure is 91/37, heart rate is atrial fibrillation in the 70s. NECK: Negative JVD. LUNGS: Without rales. Decreased breath sounds. HEART: S1, S2. EXTREMITIES: Chronic edema. LABORATORY DATA: Hemoglobin is 8.7. Chemistries, BUN and creatinine are normal. IMPRESSION: 1. Atrial fibrillation with a better heart rate now that she is off her Levophed. 2. Diabetes mellitus. 3. Morbid obesity. 4. Pulmonary hypertension. 5. Chronic obstructive pulmonary disease. 6. Persistently elevated white count. Given these findings, the patient is hemodynamically much better off her Levophed. 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 Will continue to stay off the Levophed. Ryan Turk MD
[2018-06-12] MEDS: Insulin Reg-MEDIUM-Coverage SC SCH ×3 (09:39→17:00)
[2018-06-12] MEDS: Nystatin 100,000 Units/ml Oral Susp 5 ml UD PO SCH ×4 (10:12→21:14)
[2018-06-12] MEDS: Levothyroxine 25 MCG TAB PO SCH (10:14)
--- NOTE | 2018-06-12 11:46 | PN ---
DATE: 06/12/2018 SUBJECTIVE: The patient appears comfortable this morning. She is not short of breath at rest. She is awake and alert. PHYSICAL EXAMINATION: VITAL SIGNS: Temperature is 97.6, pulse is 88, respiratory rate is 17, blood pressure 112/48. Oxygen saturation on nasal cannula is 98%. HEENT: Normocephalic, atraumatic. No JVD. CARDIOVASCULAR: Systolic ejection murmur at the lower left sternal border. No S3 gallop. LUNGS: Decreased breath sounds at the bases. Very minimal/less rhonchi. No wheezing. EXTREMITIES: Less edema. No cyanosis. No clubbing. Calves are nontender to palpation. GI: Abdomen is soft, nontender, nondistended. Bowel sounds are positive. SKIN: Bilateral lower extremity cellulitis - improving. NEUROLOGIC: Exam limited at the present time. PERTINENT LABORATORY DATA: Chest x-ray was repeated yesterday and reviewed. The chest x-ray is not significantly changed from the previous film. IMPRESSION: 1. Sepsis syndrome. 2. Bilateral cellulitis. 3. Chronic obstructive pulmonary disease. 4. Asthma. 5. Anemia. 6. Cardiac arrhythmias. 7. Positive troponin, rule out myocardial infarction. PLAN: The patient appears very comfortable this morning. She is not short of breath at rest. She does state to feeling much better overall. I did discuss the case with the night nurse at length. The night nurse stated that the patient had a very good night. The patient is now off pressors. On physical exam, there is no significant bronchospasm noted. In addition, there is no significant alveolar-arterial gradient. I will continue with the current nebulizer treatments and inhaled steroids for now. Inputs by Infectious Disease and Cardiology are also noted. Clinical status of the patient is significantly improved compared to last week. However, again, the future status/prognosis for this chronically ill patient does remain very guarded at best. I will discuss the above with the entire ICU team in the next few moments. I will also discuss the above with Dr. Mann later this morning. Ke Farooq MD ANUP
--- NOTE | 2018-06-12 15:04 | PN ---
DATE: 06/12/2018 SUBJECTIVE: I saw her resting comfortably in intensive care unit with her . They had many questions to me this morning. I tried to answer all of them. To me, clinically, she looks like she is starting to improve. She has been through a lot. She is eating a little bit better. No chest pain or shortness of breath. No abdominal pain which is good for her. She slept fairly well. is very much nervous and upset and has lots of questions for me as usual. PHYSICAL EXAMINATION: VITAL SIGNS: Temperature 97.6, 69 pulse, blood pressures have been 82/33, 84/39, 91/37, 17 respiratory rate and looks like It is 78% oxygen saturation on 3 liters. That does not look good. It was 100% earlier, may be it was wrong finger on the pulse ox. She clinically does not look like a 78% O2 sat. HEAD: Atraumatic, normocephalic. Throat is moist. NECK: Supple. HEART: Regular rate, is in the 90s. It was in the 120s couple of days ago. LUNGS: Decreased breath sounds. Poor inspiration, but clear. No wheezes, rhonchi or rales auscultated. ABDOMEN: Morbidly, morbidly, morbidly obese, nontender. Positive bowel sounds. No guarding, no rebound or CVA tenderness. EXTREMITIES: Very swollen, very much lymphedematous, but she has lost some weight. She was 700 pounds last time she was here. At this time, she was 604 when she came in, but I think she is in the 500s now. The right side and the left side of her pannus, definitely had ulcers and oozing. I think that could be part of the reason why she has an infection. She was on antibiotics up until yesterday. The legs are very, very lymphedematous and swollen. She is currently on Cardizem, Cepacol, Coumadin, DuoNeb, Glucophage, insulin coverage, Lanoxin, mouth wash nystatin swish and swallow, Pepcid, midodrine Pulmicort, Silvadene cream. She is on Solu-Cortef 50 every 6 hours which I think is a lot for her. I want to see if the estimating manager can discontinue that or decrease it. Synthroid, Tylenol and Zofran. LABORATORY DATA: Her labs, she has 136 sodium, potassium 4.1, BUN is 15, creatinine 0.7, GFR is greater than 60, sugar is 142, calcium is 8. Total bili is 0.5, AST is 40, ALT is , alk phos 132, total protein 5.3. TSH is 2.07. White count is 17.2, was 16.5 yesterday. She is off IV antibiotics right now. She is recultured and she is on IV steroids, it could be the reason for the elevated white count, 8.7 hemoglobin, which is low. If it drops below 8, I will transfuse her, hematocrit 27.9, platelets are 452. Clinically, I think she is improving. She is being seen by Cardiology and the estimating manager, GI, Pulmonary and Infectious Disease. Chest x-ray showed yesterday moderate cardiomegaly with mild pulmonary vascular congestion. She has numerous issues. Low blood pressure, morbidly obese. She had an non-ST elevation myocardial infarction, severe sepsis, congestive heart failure, chronic obstructive pulmonary disease, diabetes, bedridden, bilateral thigh ulcers was oozing. I do think though she is starting to change, turn the corner, I want to get her off the IV steroids, see what the repeat cultures say and hopefully in the next day or to 2, get her home. Continue aggressive treatment and care in Intensive Care Unit. Thank you very much. Alan Mann DO MTDD
[2018-06-12] MEDS: Meropenem IV 1 gm in NS 1 GM/50 ML BAG IVPB SCH ×2 (16:25→21:09)
[2018-06-12] MEDS: Digoxin 250 mcg (0.25 mg) Tab PO SCH (16:25)
[2018-06-12] MEDS: Vancomycin 1gm in NS 250ml 1 GM/250 ML BAG IVPB SCH (16:26)
--- NOTE | 2018-06-12 18:07 | PN ---
DATE: 06/12/2018 SUBJECTIVE: The patient is in bed, in no acute distress, nontoxic. PHYSICAL EXAMINATION VITAL SIGNS: Temperature is 97, blood pressure is 91/37, respiratory rate of 24, and heart rate of 92. HEENT: Unremarkable. NECK: Supple. LUNGS: Decreased breath sounds. HEART: Normal S1 and S2. ABDOMEN: Soft and nontender. LABORATORY DATA: White count is 17,200, hemoglobin of 8, and platelets of 432. Chemistries are noted. Urinalysis is reviewed. Microbiology is noted and negative from yesterday. Urine culture is negative. MEDICATIONS: Review of orders revealed the patient to be on have been stopped by Pharmacy. The patient was on vancomycin and meropenem. LABORATORY DATA: The patient had a chest x-ray yesterday, no active pulmonary disease. ASSESSMENT AND PLAN: A 73-year-old female with super morbid obesity, body mass index of 81, coronary artery disease, congestive heart failure, diabetes mellitus, atrial fibrillation, chronic edema, chronic obstructive lung disease, on home O2 therapy, admitted with severe sepsis, bilateral lower extremity cellulitis, right sided significant infection, day #11 of vancomycin and meropenem, reason is unknown. The antibiotics were discontinued. We will restart the antibiotics with meropenem 1 g every 8 hours and vancomycin 1 g every 12 hours and follow the white blood cell count. We will follow with you. Santy Fernandez MD
[2018-06-12] MEDS: Benzocaine/Menthol (Cepacol) Lozenge MT PRN (21:13)
[2018-06-13] MEDS: Vancomycin 1gm in NS 250ml 1 GM/250 ML BAG IVPB SCH ×2 (00:30→12:30)
[2018-06-13] MEDS: Albuterol-Ipratrop 3 mg / 0.5 (3 ml) UD IH SCH ×4 (01:52→20:02)
[2018-06-13] MEDS: Insulin Reg-MEDIUM-Coverage SC SCH ×3 (02:14→22:00)
[2018-06-13] MEDS: Silver Sulfadiazine 1% Cream (25 gm) TP SCH ×2 (02:41→04:45)
[2018-06-13] MEDS: Meropenem IV 1 gm in NS 1 GM/50 ML BAG IVPB SCH ×3 (05:38→21:27)
[2018-06-13 07:16] LABS: HEMOGLOBIN 8.3 g/dL (12.0-16.0); MEAN CELL VOLUME 82.5 fl (80.0-105.0); MEAN CORPUSCULAR HEMOGLOBIN 25.9 pg (25.0-35.0); MEAN CORPUSCULAR HGB CONC 31.4 g/dl (31.0-37.0); MEAN PLATELET VOLUME 9.8 fl (7.0-11.0); RBC 3.2 10^6/uL (3.5-6.1); RED CELL DISTRIBUTION WIDTH 16.6 % (11.5-14.5); WHITE BLOOD COUNT 13.7 10^3/uL (4.5-11.0)
[2018-06-13 07:30] LABS: ALB/GLOB RATIO 0.7 (1.1-1.8); ALBUMIN 2.2 g/dL (3.0-4.8); ALT/SGPT 16 U/L (7-56); AST/SGOT 18 U/L (14-36); BLOOD UREA NITROGEN 17 mg/dL (7-21); CALCIUM 8.2 mg/dL (8.4-10.5); GFR NON-AFRICAN AMERICAN > 60
[2018-06-13] MEDS: Budesonide 0.5 mg/2 ml Inhal Susp UD IH SCH ×2 (07:31→20:02)
--- NOTE | 2018-06-13 07:57 | PN ---
DATE: 06/13/2018 SUBJECTIVE: The patient is in bed, in no acute distress, nontoxic. PHYSICAL EXAMINATION: VITAL SIGNS: Temperature is 98, blood pressure is 93/40, respiratory rate of 18. HEENT: Unremarkable. NECK: Supple. LUNGS: Have decreased breath sounds. HEART: Normal S1, S2. ABDOMEN: Soft, nontender. LABORATORY DATA: Reveals the patient's white count is down to 13,700, hemoglobin of 8, BUN of 15, creatinine of 0.7. Urinalysis is noted. Microbiology is reviewed. Review of orders reveals the patient to be on meropenem and vancomycin. ASSESSMENT AND PLAN: This is a 73-year-old female with super morbid obesity, body mass index of 81; coronary artery disease; congestive heart failure; diabetes mellitus; atrial fibrillation; chronic edema; chronic obstructive lung disease, home O2 therapy; admitted with severe sepsis, bilateral lower extremity cellulitis, right-sided significant infection, day #12 of meropenem and vancomycin, most likely in the right side. We will continue following the WBC count. Case discussed with the patient at length this morning and her is who was at the bedside. Santy Fernandez MD
--- NOTE | 2018-06-13 08:44 | PN ---
DATE: 06/13/2018 PULMONARY NOTE SUBJECTIVE: The patient appears comfortable this morning. She is not short of breath at rest. PHYSICAL EXAMINATION: VITAL SIGNS: Temperature 98.5, pulse 69, respirations 14, blood pressure 93/40. Oxygen saturation on nasal cannula is 99%. HEENT: Normocephalic, atraumatic. No JVD. CARDIOVASCULAR: Systolic ejection murmur at the lower left sternal border. No S3 gallop. LUNGS: Decreased breath sounds at the bases. Very minimal/less rhonchi. No wheezing. EXTREMITIES: Less edema. No cyanosis, no clubbing. Calves are nontender to palpation. GASTROINTESTINAL: Abdomen is soft, nondistended, nontender. Bowel sounds are positive. SKIN: Bilateral lower extremity cellulitis - improving. NEUROLOGIC: Limited at the present time. IMPRESSION: 1. Sepsis syndrome. 2. Bilateral cellulitis. 3. Chronic obstructive pulmonary disease. 4. Asthma. 5. Anemia. 6. Cardiac arrhythmias. 7. Positive troponin, rule out myocardial infarction. PLAN: The patient appears comfortable this morning. She is not short of breath at rest. She does state to feeling much better overall. I did discuss the case with the night nurse at length. The night nurse stated that the patient had a very good night. On physical exam, there is certainly no significant bronchospasm noted. In addition, there is no significant alveolar-arterial gradient. I will continue with the current nebulizer treatments and inhaled steroids for now. The ICU team has also started intravenous hydrocortisone. Hopefully, the hydrocortisone can be weaned over the next few days. The patient remains on antibiotic therapy - as per Infectious Disease. Temperatures have resolved. The leukocytosis is resolving. Inputs by Cardiology and Internal Medicine are also noted. Clinical status of the patient is significantly improved overall. However, the future status/prognosis for this chronically ill patient does remain very guarded at best. I will discuss the above with the entire ICU team in the next few moments. I will also discuss the above with Dr. Mann later this morning. Ke Farooq MD ANUP
[2018-06-13] MEDS: Nystatin 100,000 Units/ml Oral Susp 5 ml UD PO SCH ×4 (10:29→21:25)
[2018-06-13] MEDS: Levothyroxine 25 MCG TAB PO SCH (10:32)
[2018-06-13] MEDS: Benzocaine/Menthol (Cepacol) Lozenge MT PRN ×2 (13:46→18:34)
--- NOTE | 2018-06-13 15:25 | PN ---
DATE: 06/13/2018 SUBJECTIVE: She is still in the Intensive Care Unit setting. She is alert. She is eating better. No abdominal pain. No shortness of breath. No cough. She is improving, I believe. The is also there telling me she seems a little bit better, which is great. MEDICATIONS: She is on Cardizem, Cepacol, Coumadin, DuoNebs, Glucophage, insulin, Lanoxin, Merrem IV, nystatin, Pepcid, ProAmatine, Pulmicort, Silvadene, Solu-Cortef, Synthroid, Tylenol, vancomycin and Zofran. PHYSICAL EXAMINATION: VITAL SIGNS: She has a 98.5 temp, 69 pulse, 93/40 blood pressure, 14 respiratory rate, and 99% O2 sat on nasal cannula. HEENT: Head is atraumatic, normocephalic. HEART: Regular rate. LUNGS: Decreased breath sounds, but clear. No wheezes. No rhonchi. No rales. Poor inspiration. ABDOMEN: Morbidly, morbidly, morbidly obese. Soft, nontender. Positive bowel sounds. EXTREMITIES: Still quite swollen from lymphedema. In the thighs, they still have ulcers on either side with mild oozing, but improving. She is losing weight while she is in the hospital. LABORATORY DATA: She has a 13.7 white count, which is the lowest it has been, which is great; 8.3 hemoglobin; 26.4 hematocrit with a 470 platelets. She has a 136 sodium, potassium 4.2, BUN 17, creatinine 0.9, GFR is greater than 60, sugar is 150, calcium is 8.2, total bili is 0.3. AST is 18, ALT is 16, alk phos 120, total protein is 5.4. ASSESSMENT AND PLAN: Overall, I do think this is the best I have seen her, and hopefully, she will continue to improve. I believe Infectious Disease wants her on the IV antibiotics for a few more days before we can send her back home and continue aggressive treatment and care. I had a long discussion again with the and Maria Isabel, the patient, went over her condition, her situation and really the important need for weight loss, and they understand that and how it effects the heart, and we will take it down one day at a time, checking the labs tomorrow as per Infectious Disease. Alan Mann DO
--- NOTE | 2018-06-13 15:27 | PN ---
DATE: 06/13/2018 SUBJECTIVE: The patient is sitting in bed, without shortness of breath. Mentally, the patient is alert. PHYSICAL EXAMINATION: VITAL SIGNS: Blood pressure is 93 systolic, heart rate is in the 100s. NECK: Negative JVD. LUNGS: Without decreased breath sounds. HEART: Reveal S1, S2. EXTREMITIES: Without change. LABORATORY DATA: Hemoglobin is 8.3 with white count of 13.7. Chemistries, BUN and creatinine are unremarkable. Glucose is 150. IMPRESSION: 1. Morbid obesity. 2. Chronic obstructive pulmonary disease. 3. Sepsis. 4. Normal left ventricular function. 5. Pulmonary retention. Given these findings, the patient is back to baseline. Her blood pressure is stable, off of pressors. Ryan Turk MD
[2018-06-13] MEDS: Digoxin 250 mcg (0.25 mg) Tab PO SCH (18:33)
[2018-06-14] MEDS: Vancomycin 1gm in NS 250ml 1 GM/250 ML BAG IVPB SCH ×2 (00:30→12:04)
[2018-06-14] MEDS: Albuterol-Ipratrop 3 mg / 0.5 (3 ml) UD IH SCH ×4 (02:38→19:53)
[2018-06-14] MEDS: Meropenem IV 1 gm in NS 1 GM/50 ML BAG IVPB SCH ×3 (05:33→21:38)
[2018-06-14 06:11] LABS: HEMOGLOBIN 8.4 g/dL (12.0-16.0); MEAN CORPUSCULAR HGB CONC 31.3 g/dl (31.0-37.0); MEAN PLATELET VOLUME 9.7 fl (7.0-11.0); RBC 3.23 10^6/uL (3.5-6.1); RED CELL DISTRIBUTION WIDTH 16.6 % (11.5-14.5); WHITE BLOOD COUNT 12.1 10^3/uL (4.5-11.0)
[2018-06-14 06:18] LABS: INR 3.4
[2018-06-14 06:29] LABS: ALB/GLOB RATIO 0.7 (1.1-1.8); ALBUMIN 2.3 g/dL (3.0-4.8); ALT/SGPT 16 U/L (7-56); AST/SGOT 18 U/L (14-36); BLOOD UREA NITROGEN 19 mg/dL (7-21); CALCIUM 7.8 mg/dL (8.4-10.5); GFR NON-AFRICAN AMERICAN 54
[2018-06-14 06:36] LABS: PROTHROMBIN TIME 40.1 SECONDS (9.4-12.5)
[2018-06-14] MEDS: Budesonide 0.5 mg/2 ml Inhal Susp UD IH SCH ×2 (07:31→19:53)
--- NOTE | 2018-06-14 07:42 | PN ---
DATE: 06/14/2018 PULMONARY NOTE DICTATION SUBJECTIVE: The patient appears comfortable this morning. She is not short of breath at rest. PHYSICAL EXAMINATION: VITAL SIGNS: Temperature is 97.5, pulse 62, respirations 14, blood pressure 101/45. Oxygen saturation on nasal cannula is 99%. HEENT: Normocephalic, atraumatic. No JVD. CARDIOVASCULAR: Systolic ejection murmur at the lower left sternal border. No S3 gallop. LUNGS: Decreased breath sounds at the bases. No rhonchi or wheezing this morning. EXTREMITIES: Less edema. No cyanosis, no clubbing. Calves are nontender to palpation. GI: Abdomen is soft, nontender and nondistended. Bowel sounds are positive. SKIN: Bilateral lower extremity cellulitis - improving. NEUROLOGIC: Exam limited at the present time. IMPRESSION: 1. Sepsis syndrome. 2. Bilateral cellulitis. 3. Chronic obstructive pulmonary disease. 4. Asthma. 5. Anemia. 6. Cardiac arrhythmias. 7. Positive troponin, rule out myocardial infarction. PLAN: The patient appears very comfortable this morning. She is not short of breath at rest. She does state to feeling much better overall. I did discuss the case with the night nurse at length. The night nurse stated the patient had a very good night. On physical exam, her bronchospasm has primarily resolved. In addition, the alveolar-arterial gradient has also resolved. I will continue the current nebulizer treatments and inhaled steroids for now. The patient remains on antibiotic therapy - as per Infectious Disease. Temperatures have resolved. The leukocytosis is resolving. Inputs by Cardiology and Internal Medicine are also noted. Clinical status of the patient is certainly improved - compared to last week. However, again, the future status/prognosis for this patient does remain very guarded at best. I will discuss the above with the entire ICU team in the next few moments. I will also discuss the above with the attending physician later this morning. Ke Farooq MD MTDVivien
[2018-06-14] MEDS: Insulin Reg-MEDIUM-Coverage SC SCH ×4 (08:10→21:39)
[2018-06-14] MEDS: Nystatin 100,000 Units/ml Oral Susp 5 ml UD PO SCH ×4 (09:17→21:38)
[2018-06-14] MEDS: Levothyroxine 25 MCG TAB PO SCH (09:17)
[2018-06-14] MEDS: Silver Sulfadiazine 1% Cream (25 gm) TP SCH ×2 (12:01→21:31)
--- NOTE | 2018-06-14 13:12 | PN ---
DATE: 06/14/2018 SUBJECTIVE: I saw her resting comfortably in bed in the Intensive Care Unit. Still she is alert. She is feeling much better. She is there with her . She is improving. Lost some weight. She is on Cardizem, Cepacol, Coumadin, DuoNebs, Glucophage, insulin, Lanoxin, Merrem, nystatin, Pepcid, ProAmatine, Pulmicort, Silvadene, Solu-Cortef, Synthroid, Tylenol, vancomycin, Zofran. She is actually smiling today. No chest pain or abdominal pain. No shortness of breath. I think she is starting to improve very well. PHYSICAL EXAMINATION: VITAL SIGNS: Temperature 97.4, 78 pulse, 98/43 blood pressure, 23 respiratory rate. HEENT: Head: Atraumatic, normocephalic. Throat is moist. NECK: Supple. HEART: Regular rate. LUNGS: Decreased breath sounds, but clear to auscultation bilaterally. ABDOMEN: Morbidly, morbidly, morbidly obese, nontender. Positive bowel sounds. No guarding. No rebound. EXTREMITIES: Still very swollen with lymphedema, 10/4 pitting edema, but this is smaller than when she came in. Both thighs have ulcers which are slowly healing and less pus coming through, which is good. LABORATORY DATA: She is currently has a 12.1 white count, best it has been, 8.4 hemoglobin, 26.8 hematocrit with 498 platelets. Her INR is 3.4. I will hold the Coumadin again today. She has 135 sodium, potassium 4.2, BUN 19, creatinine 1, GFR is 54, sugar is 137, calcium 7.8, total bili is 0.3, AST is 18, ALT is 16, alkaline phosphatase 115. Total protein is 5.5. Overall, she is improving. Infectious Disease still wants her on the IV antibiotics. He is unsure how long. Maybe in a day or 2. As soon as I can change it to tablets, I will. She had sepsis syndrome, bilateral cellulitis, bilateral thigh ulcers, COPD, asthma, anemia, cardiac arrhythmias. She had NSTEMI. She is morbidly, morbidly obese. We will check her labs tomorrow. Watching her white count. I had a long discussion with the and the patient about her condition and plans, what we can do when she goes home making plans to get her home, hopefully soon, working on it as per Infectious Disease. Alan Mann DO ANUP
--- NOTE | 2018-06-14 13:38 | PN ---
DATE: 06/14/2018 CARDIOLOGY FOLLOWUP SUBJECTIVE: The patient is without shortness of breath. PHYSICAL EXAMINATION: VITAL SIGNS: Blood pressure is 101/45, the heart rate is in the 60s. NECK: Negative JVD. LUNGS: Without rales with decreased breath sounds. HEART: Reveals S1, S2. EXTREMITIES: Chronic edema. LABORATORY DATA: Hemoglobin is 8.4, white count is 12.1. Chemistries: BUN and creatinine are unremarkable. IMPRESSION: 1. Morbid obesity. 2. Resolution of hypotension. 3. Severe chronic obstructive pulmonary disease. 4. Pulmonary hypertension. 5. Normal left ventricular function. PLAN: Given these findings, the patient hemodynamically remained stable. Ryan Turk MD
[2018-06-14] MEDS: Digoxin 250 mcg (0.25 mg) Tab PO SCH (14:00)
--- NOTE | 2018-06-14 17:48 | PN ---
DATE: 06/14/2018 SUBJECTIVE: The patient is seen earlier today in 129, bed 4. Her is at the bedside whose questions were all answered. There has been no fevers. The patient is clinically unchanged. PHYSICAL EXAMINATION: VITAL SIGNS: Temperature is 97, blood pressure is 180/70, respiratory rate of 16. HEENT: Unremarkable. NECK: Supple. LUNGS: Have decreased breath sounds. HEART: Normal S1 and S2. ABDOMEN: Soft and nontender. No organomegaly. No rebound. No guarding. No masses. LABORATORY EXAMINATION: Reveals a white count of 12,100, hemoglobin of 8, platelets of 498. Chemistries reveals a BUN of 19, creatinine of 1, and microbiology is reviewed. Review of orders reveals the patient to be on vanco and meropenem. ASSESSMENT AND PLAN: This is a 73-year-old female with super morbid obesity with a body mass index of 81 with coronary artery disease, congestive heart failure, diabetes mellitus, atrial fibrillation, chronic edema, chronic obstructive lung disease, home oxygen therapy, admitted with severe sepsis, bilateral lower extremity cellulitis right-sided much worse than the left side. Currently on day #13 of vancomycin and meropenem with white count improving. Dr. Farooq's note is reviewed from this morning. Overall, prognosis is quite poor for this patient who is extremely super obese. Santy Fernandez MD
[2018-06-15] MEDS: Albuterol-Ipratrop 3 mg / 0.5 (3 ml) UD IH SCH ×4 (01:45→20:52)
[2018-06-15] MEDS: Meropenem IV 1 gm in NS 1 GM/50 ML BAG IVPB SCH ×3 (05:16→22:03)
[2018-06-15] MEDS: Vancomycin 1gm in NS 250ml 1 GM/250 ML BAG IVPB SCH (05:17)
[2018-06-15] MEDS: Budesonide 0.5 mg/2 ml Inhal Susp UD IH SCH ×2 (07:03→20:52)
--- NOTE | 2018-06-15 07:07 | PN ---
DATE: 06/15/2018 PULMONARY NOTE SUBJECTIVE: The patient appears very comfortable this morning. She is not short of breath at rest. PHYSICAL EXAMINATION: VITAL SIGNS: Temperature is 97.7, pulse 57, respirations 15, blood pressure 95/46. Oxygen saturation on nasal cannula is 100%. HEENT: Normocephalic, atraumatic. No JVD. CARDIOVASCULAR: Systolic ejection murmur at the lower left sternal border. No S3 gallop. LUNGS: Decreased breath sounds at the bases. No rhonchi. No wheezing. EXTREMITIES: Less edema. No cyanosis. No clubbing. Calves are nontender to palpation. GI: Abdomen is soft, nontender, nondistended. Bowel sounds are positive. SKIN: Bilateral lower extremity cellulitis - improving. NEUROLOGIC: Limited at the present time. IMPRESSION: 1. Sepsis syndrome. 2. Bilateral cellulitis. 3. Chronic obstructive pulmonary disease. 4. Asthma. 5. Anemia. 6. Cardiac arrhythmias. 7. Positive troponin, rule out myocardial infarction. PLAN: The patient appears very comfortable this morning. She is not short of breath at rest. She does state to feeling much better overall. I did discuss the case with the night nurse at length. The night nurse stated that the patient had a very good night. On physical exam, her bronchospasm has primarily resolved. In addition, the oxygen saturation on nasal cannula is now 100%. I will continue with the current nebulizer treatments and inhaled steroids for now. The patient remains on intravenous hydrocortisone. I will discuss the weaning of the hydrocortisone with the ICU team. Inputs by Cardiology and Infectious Disease are also noted. The leukocytosis continues to resolve. Clinical status of the patient is significantly improved - compared to last week. The overall status/prognosis for this elderly patient does remain very guarded. I will discuss the above with the entire ICU team in the next few moments. I will also discuss the above with Dr. Mann. Ke Farooq MD MTDVivien
[2018-06-15 07:08] LABS: HEMOGLOBIN 8.6 g/dL (12.0-16.0); MEAN CELL VOLUME 83.3 fl (80.0-105.0); MEAN CORPUSCULAR HEMOGLOBIN 26.1 pg (25.0-35.0); MEAN CORPUSCULAR HGB CONC 31.4 g/dl (31.0-37.0); MEAN PLATELET VOLUME 9.8 fl (7.0-11.0); RBC 3.29 10^6/uL (3.5-6.1); RED CELL DISTRIBUTION WIDTH 16.6 % (11.5-14.5); WHITE BLOOD COUNT 11.6 10^3/uL (4.5-11.0)
[2018-06-15 08:26] LABS: ALB/GLOB RATIO 0.7 (1.1-1.8); ALBUMIN 2.4 g/dL (3.0-4.8); CALCIUM 8.1 mg/dL (8.4-10.5)
[2018-06-15] MEDS: Insulin Reg-MEDIUM-Coverage SC SCH ×4 (08:41→22:03)
[2018-06-15] MEDS: Levothyroxine 25 MCG TAB PO SCH (10:15)
[2018-06-15] MEDS: Clotrimazole 1% Cream(30 gm) TOP SCH ×2 (10:15→17:33)
[2018-06-15] MEDS: Nystatin 100,000 Units/ml Oral Susp 5 ml UD PO SCH ×4 (10:16→22:04)
[2018-06-15] MEDS: Fluticasone Nasal 50 mcg/Spray NS SCH (10:23)
--- NOTE | 2018-06-15 10:40 | CP.PCM.PN ---
<Dionicio Cunningham - Last Filed: 06/15/18 11:10> Subjective - Date & Time of Evaluation Date of Evaluation: 06/15/18 Time of Evaluation: 09:55 - Subjective Subjective: PGY-4 GI Fellow Prog Note Pt lying in bed when seen this AM. States she is the same since last seen with some "upset stomach" since being started on antibiotics. States feels some nausea, but denied emesis. Tolerating diet. No BM in 2-3 days which is not at ypical for her. 5 point ROS negative other than stated above Objective - Vital Signs/Intake and Output Vital Signs (last 24 hours): Temp Pulse Resp BP Pulse Ox 97.7 F 57 L 15 95/46 L 100 06/15/18 04:00 06/15/18 06:44 06/15/18 06:44 06/15/18 05:01 06/15/18 06:30 Intake and Output: 06/15/18 06/15/18 06:59 18:59 Intake Total 100 Output Total 150 Balance -50 - Medications Medications: Current Medications Acetaminophen (Tylenol 325mg Tab) 650 mg PO Q6H PRN PRN Reason: Pain, moderate (4-7) Last Admin: 06/09/18 21:16 Dose: 650 mg Albuterol/Ipratropium (Duoneb 3 Mg/0.5 Mg (3 Ml) Ud) 3 ml IH [id number] [facility] Last Admin: 06/15/18 07:04 Dose: 3 ml Benzocaine/Menthol (Cepacol Sore Throat) 1 rosa MT Q2H PRN PRN Reason: Sore Throat Last Admin: 06/13/18 18:34 Dose: 1 rosa Budesonide (Pulmicort Respules) 0.5 mg IH [id number] [facility] Last Admin: 06/15/18 07:03 Dose: 0.5 mg Clotrimazole (Lotrimin 1%) 1 gm TOP BID [facility] Last Admin: 06/15/18 10:15 Dose: 1 gm Al Hydrox/Mg Hydrox/Simethicone 30 ml/Diphenhydramine HCl 75 mg/Lidocaine 30 ml 0 ml PO Q2H PRN PRN Reason: Mouth/Throat Pain Last Admin: 06/07/18 10:25 Dose: 30 susp Cyproheptadine HCl (Periactin) 4 mg PO DAILY [facility] Last Admin: 06/15/18 10:16 Dose: 4 mg Digoxin (Lanoxin) 0.25 mg PO 1400 [facility] Last Admin: 06/14/18 14:00 Dose: 0.25 mg Diltiazem HCl (Cardizem) 60 mg PO Q8 [facility] Last Admin: 06/14/18 15:58 Dose: Not Given Famotidine (Pepcid) 40 mg PO 1000,2200 [facility] Last Admin: 06/15/18 10:15 Dose: 40 mg Fluticasone Propionate (Flonase) 1 actuation NS DAILY [facility] Last Admin: 06/15/18 10:23 Dose: 1 spray Hydrocortisone Sodium Succinate (Solu-Cortef) 50 mg IVP Q6 [facility] Last Admin: 06/15/18 05:16 Dose: 50 mg Meropenem (Merrem Iv 1 Gm Premix) 1 gm in 50 mls @ 100 mls/hr IVPB Q8 [facility]; Protocol Last Admin: 06/15/18 05:16 Dose: 100 mls/hr Insulin Human Regular (Humulin R Med) 0 units SC ACHS [facility]; Protocol Last Admin: 06/15/18 08:41 Dose: 1 units Levothyroxine Sodium (Synthroid) 25 mcg PO DAILY [facility] Last Admin: 06/15/18 10:15 Dose: 25 mcg Metformin HCl (Glucophage) 1,000 mg PO BID [facility] Last Admin: 06/15/18 10:15 Dose: 1,000 mg Midodrine (Proamatine) 5 mg PO TID [facility] Last Admin: 06/15/18 10:15 Dose: 5 mg Nystatin (Nystatin Oral Susp) 5 ml PO QID [facility] Last Admin: 06/15/18 10:16 Dose: 5 ml Ondansetron HCl (Zofran Inj) 4 mg IVP Q6H PRN PRN Reason: Nausea/Vomiting Last Admin: 06/11/18 09:43 Dose: 4 mg Polyethylene Glycol (Miralax) 17 gm PO DAILY [facility] Silver Sulfadiazine (Silvadene 1% 25 Gm) 0 gm TP Q12H [facility] Last Admin: 06/14/18 21:31 Dose: 25 gm - Labs Labs: 06/15/18 06:00 06/15/18 06:00 PT 40.1 SECONDS (9.4-12.5) H 06/14/18 05:50 INR 3.40 06/14/18 05:50 APTT 36.2 Seconds (25.1-36.5) 06/01/18 15:10 - Constitutional Appears: No Acute Distress, Chronically Ill, Other (Morbid obese limiting exam) - Eye Exam Eye Exam: EOMI. absent: Scleral icterus - Respiratory Exam Respiratory Exam: NORMAL BREATHING PATTERN. absent: Accessory Muscle Use, Respiratory Distress - GI/Abdominal Exam GI & Abdominal Exam: Soft, Normal Bowel Sounds. absent: Distended, Firm, Guarding, Rigid, Tenderness, Mass, Pulsatile Mass Additional comments: exam limited due to body habitus Assessment and Plan - Assessment and Plan (Free Text) Assessment: 73 yo BF with morbid obesity, DM, CHF, COPD, Afib admitted for sepsis, CHF+COPD on 06/01; GI consulted on 06/08 for upset stomach/nausea. 1. Nausea: Unclear etiology but acute in nature with recent onset after admission, pt attributed to antibiotics which could be the case. She is also a diabetic and is at risk for gastroparesis 2. Cellulitis 3. HCAP 4. Diarrhea 5. Morbid obesity Plan: -Supportive care with pain control and anti-emetics ---Ondansetron PRN ---Can trial compazine if no relief with ondansetron but monitor for side effects -Continue famotidine BID -Start miralax to facilitate BMs -IV abx per ID -Further medical care per primary team Thank you for the consult, will sign off. Please call if questions. Pt seen and examined with Dr. Steele; see attestation for further recs/changes <Medardo Steele - Last Filed: 06/15/18 11:17> Objective - Vital Signs/Intake and Output Vital Signs (last 24 hours): Temp Pulse Resp BP Pulse Ox 97.7 F 57 L 15 95/46 L 100 06/15/18 04:00 06/15/18 06:44 06/15/18 06:44 06/15/18 05:01 06/15/18 06:30 Intake and Output: 06/15/18 06/15/18 06:59 18:59 Intake Total 100 Output Total 150 Balance -50 - Medications Medications: Current Medications Acetaminophen (Tylenol 325mg Tab) 650 mg PO Q6H PRN PRN Reason: Pain, moderate (4-7) Last Admin: 06/09/18 21:16 Dose: 650 mg Albuterol/Ipratropium (Duoneb 3 Mg/0.5 Mg (3 Ml) Ud) 3 ml IH [id number] [facility] Last Admin: 06/15/18 07:04 Dose: 3 ml Benzocaine/Menthol (Cepacol Sore Throat) 1 rosa MT Q2H PRN PRN Reason: Sore Throat Last Admin: 06/13/18 18:34 Dose: 1 rosa Budesonide (Pulmicort Respules) 0.5 mg IH [id number] [facility] Last Admin: 06/15/18 07:03 Dose: 0.5 mg Clotrimazole (Lotrimin 1%) 1 gm TOP BID [facility] Last Admin: 06/15/18 10:15 Dose: 1 gm Al Hydrox/Mg Hydrox/Simethicone 30 ml/Diphenhydramine HCl 75 mg/Lidocaine 30 ml 0 ml PO Q2H PRN PRN Reason: Mouth/Throat Pain Last Admin: 06/07/18 10:25 Dose: 30 susp Cyproheptadine HCl (Periactin) 4 mg PO DAILY [facility] Last Admin: 06/15/18 10:16 Dose: 4 mg Digoxin (Lanoxin) 0.25 mg PO 1400 [facility] Last Admin: 06/14/18 14:00 Dose: 0.25 mg Diltiazem HCl (Cardizem) 60 mg PO Q8 [facility] Last Admin: 06/14/18 15:58 Dose: Not Given Famotidine (Pepcid) 40 mg PO 1000,2200 [facility] Last Admin: 06/15/18 10:15 Dose: 40 mg Fluticasone Propionate (Flonase) 1 actuation NS DAILY [facility] Last Admin: 06/15/18 10:23 Dose: 1 spray Hydrocortisone Sodium Succinate (Solu-Cortef) 50 mg IVP Q6 [facility] Last Admin: 06/15/18 05:16 Dose: 50 mg Meropenem (Merrem Iv 1 Gm Premix) 1 gm in 50 mls @ 100 mls/hr IVPB Q8 [facility]; Protocol Last Admin: 06/15/18 05:16 Dose: 100 mls/hr Insulin Human Regular (Humulin R Med) 0 units SC ACHS [facility]; Protocol Last Admin: 06/15/18 08:41 Dose: 1 units Levothyroxine Sodium (Synthroid) 25 mcg PO DAILY [facility] Last Admin: 06/15/18 10:15 Dose: 25 mcg Metformin HCl (Glucophage) 1,000 mg PO BID [facility] Last Admin: 06/15/18 10:15 Dose: 1,000 mg Midodrine (Proamatine) 5 mg PO TID [facility] Last Admin: 06/15/18 10:15 Dose: 5 mg Nystatin (Nystatin Oral Susp) 5 ml PO QID [facility] Last Admin: 06/15/18 10:16 Dose: 5 ml Ondansetron HCl (Zofran Inj) 4 mg IVP Q6H PRN PRN Reason: Nausea/Vomiting Last Admin: 06/11/18 09:43 Dose: 4 mg Polyethylene Glycol (Miralax) 17 gm PO DAILY [facility] Silver Sulfadiazine (Silvadene 1% 25 Gm) 0 gm TP Q12H [facility] Last Admin: 06/14/18 21:31 Dose: 25 gm - Labs Labs: 06/15/18 06:00 06/15/18 06:00 PT 40.1 SECONDS (9.4-12.5) H 06/14/18 05:50 INR 3.40 06/14/18 05:50 APTT 36.2 Seconds (25.1-36.5) 06/01/18 15:10 Attending/Attestation - Attestation I have personally seen and examined this patient.: Yes I have fully participated in the care of the patient.: Yes I have reviewed all pertinent clinical information, including history, physical exam and plan: Yes Notes (Text): 06/15/18 11:14 I have seen and examined patient with GI fellow. No acute events overnight, she reports "uneasy" stomach with nausea but denies vomiting, fever/chills. She has been immobile in the ICU for the past several days, has not been out of bed. She has not had a bowel movement in past 2-3 days. Morbid obesity DM CHF Atrial fibrillation Sepsis Nausea - multifactorial given sepsis, medication use, and immobility - Diet as tolerated - Suggest bowel regimen to prevent constipation - Anti-emetic therapy PRN - Attempt to get patient OOB to chair, increase mobility - No planned GI intervention, further plan as per medical team. Will sign off case, please reconsult as necessary, thank you.
--- NOTE | 2018-06-15 11:59 | PN ---
DATE: 06/15/2018 SUBJECTIVE: The patient is seen early this morning. No fevers. No chills. The patient's is at the bedside. She had an uneventful night. PHYSICAL EXAMINATION: VITAL SIGNS: Temperature is 97, blood pressure is 95/46, respiratory rate of 22, heart rate of 87. HEENT: Examination of HEENT is unremarkable. NECK: Supple. LUNGS: Have decreased breath sounds. HEART: Normal S1, S2. ABDOMEN: Soft, nontender. LABORATORY DATA: Laboratory examination reveals the white count is down to 11,600, hemoglobin of 8. Chemistries reveals the BUN of 21, creatinine of 1.1. The patient's urinalysis is noted, unremarkable. Vanco trough level of 27 last night. Vancomycin was held. Microbiology reveals all the cultures are negative, urine and blood. Dr. Farooq's note is reviewed. ASSESSMENT AND PLAN: This is a 73-year-old female with super morbid obesity, body mass index of 81, coronary artery disease, congestive heart failure, diabetes mellitus, atrial fibrillation, chronic edema, chronic obstructive lung disease, home oxygen therapy. Admitted with severe sepsis, bilateral lower extremity cellulitis, right-sided much worse than the left side. Currently, on vancomycin, day 14 of vancomycin and meropenem. We will discontinue the vancomycin and order a vancomycin random level in the a.m. and follow the creatinine closely. Case discussed with nursing staff this morning. They have held the vancomycin dose correctly . Santy Fernandez MD
--- NOTE | 2018-06-15 12:51 | PN ---
DATE: 06/15/2018 SUBJECTIVE: I saw her resting comfortably in Intensive Care Unit. is present. She is not feeling well this morning. She did not get the cream for the toes yet. She has no appetite and she is having some indigestion, some abdominal pain. We will consult GI for their opinion. She also wants the Flonase back, we will give her Flonase, make sure she gets the Lotrisone for the toes and then add Periactin 4 mg daily to try and jump start her appetite. PHYSICAL EXAMINATION: VITAL SIGNS: She has a 97.7 temp, 60 pulse, 95/46 blood pressure, 22 respiratory rate and last pulse ox was 100% O2 sat. HEENT: Head is atraumatic, normocephalic. She looks nauseous, did not throw up. HEART: Regular rate. LUNGS: Decreased breath sounds, but clear, poor inspiration. ABDOMEN: Soft, nontender. Positive bowel sounds. No guarding or rebound. No CVA tenderness. No upper epigastric area tenderness. Abdomen is morbidly morbidly obese. EXTREMITIES: Thinning, still +4/4 lymphedema. MEDICATIONS: She is currently on Cardizem, Cepacol, Coumadin, DuoNeb, Flonase now, Glucophage, insulin, Lanoxin, Lotrimin cream, mouth wash, Merrem IV by Infectious Disease, nystatin oral wash, Pepcid, I added Periactin, ProAmatine, Pulmicort, Silvadene cream, Solu-Cortef still, Synthroid, Tylenol, Zofran. LABORATORY DATA: She has 11.6 white count, best it has been, 8.6 hemoglobin, 27.4 hematocrit, with 503 platelets. She is really starting to improve, 3.4 INR. I will hold her Coumadin today. Lactate is down to 1.6, better, 134 sodium, potassium 4.5, BUN 21, creatinine 1.1, GFR is 49, sugar is 163, calcium is 8.1, total bili is 0.4, AST is 22, ALT is 14, alk phos 114, total protein is 5.9. ASSESSMENT AND PLAN: She is now off the vancomycin because the vanco trough is elevated, but she is still on Merrem. We are going to check her labs tomorrow, check an INR tomorrow. I am going to hold her Coumadin today. We will continue with aggressive treatment and care. I added in GI, I added Flonase, I added Periactin. She is here for infection, severe sepsis. Alan Mann DO
[2018-06-15] MEDS: Digoxin 250 mcg (0.25 mg) Tab PO SCH (15:12)
[2018-06-15] MEDS: POLYETHYLENE GLYCOL 3350 17 GM/Dose PACKET PO SCH (15:16)
[2018-06-15] MEDS: Silver Sulfadiazine 1% Cream (25 gm) TP SCH ×2 (15:18→22:30)
[2018-06-15 15:20] VITALS: PULSE 82
[2018-06-15] MEDS ORDERED: Digoxin 125 mcg (0.125 mg) Tab PO SCH (15:25)
--- NOTE | 2018-06-15 15:49 | PN ---
DATE: 05/15/[address] Ryan Turk. SUBJECTIVE: The patient is mildly short of breath and at times, she has mild bradycardia. Cardizem is being withheld. PHYSICAL EXAMINATION: VITAL SIGNS: Heart rate 57, respirations 15, temperature 97.7, blood pressure 97/60. HEENT: Pale conjunctivae. CHEST: Clear. HEART: S1 and S2 regular. EXTREMITIES: 2+ pitting edema. LABORATORY DATA: Today's SMA-7 is within normal limits except for glucose of 153, calcium is 8.1. Today's hemoglobin and hematocrit 8.6 and 27.4, white count 11.6, platelet count 503,000. Digoxin level done a few days ago was 1.1. ASSESSMENT: 1. Chronic atrial fibrillation. 2. Morbid obesity. 3. Improved hypotension. 5. 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 RECOMMENDATIONS: Continue current metformin 1 g twice a day, reduce digoxin 0.125 mg daily, continue current ProAmatine, Solu-Cortef, Synthroid and acetaminophen. The most recent INR was 3.4 and Coumadin is being on hold. I will obtain repeat digoxin level. João Segundo MD
[2018-06-16] MEDS: Albuterol-Ipratrop 3 mg / 0.5 (3 ml) UD IH SCH ×4 (01:22→20:14)
[2018-06-16] MEDS: Meropenem IV 1 gm in NS 1 GM/50 ML BAG IVPB SCH ×3 (06:33→21:27)
[2018-06-16 07:22] LABS: HEMOGLOBIN 8.6 g/dL (12.0-16.0); INR 2.92; MEAN CORPUSCULAR HEMOGLOBIN 26.1 pg (25.0-35.0); MEAN CORPUSCULAR HGB CONC 31.5 g/dl (31.0-37.0); MEAN PLATELET VOLUME 9.6 fl (7.0-11.0); PROTHROMBIN TIME 34.3 SECONDS (9.4-12.5); RBC 3.29 10^6/uL (3.5-6.1); RED CELL DISTRIBUTION WIDTH 16.5 % (11.5-14.5); WHITE BLOOD COUNT 12.2 10^3/uL (4.5-11.0)
[2018-06-16 07:36] LABS: ALB/GLOB RATIO 0.7 (1.1-1.8); ALBUMIN 2.5 g/dL (3.0-4.8); CALCIUM 8.2 mg/dL (8.4-10.5)
[2018-06-16] MEDS: Budesonide 0.5 mg/2 ml Inhal Susp UD IH SCH ×2 (07:43→20:13)
[2018-06-16] MEDS: Insulin Reg-MEDIUM-Coverage SC SCH ×4 (08:00→22:39)
[2018-06-16] MEDS: POLYETHYLENE GLYCOL 3350 17 GM/Dose PACKET PO SCH (09:43)
[2018-06-16] MEDS: Nystatin 100,000 Units/ml Oral Susp 5 ml UD PO SCH ×4 (09:43→21:20)
[2018-06-16] MEDS: Levothyroxine 25 MCG TAB PO SCH (09:48)
[2018-06-16] MEDS: Benzocaine/Menthol (Cepacol) Lozenge MT PRN (09:49)
[2018-06-16] MEDS: Fluticasone Nasal 50 mcg/Spray NS SCH (10:00)
--- NOTE | 2018-06-16 13:39 | PN ---
DATE: 06/16/2018 SUBJECTIVE: The patient is in bed, in no acute distress, nontoxic. PHYSICAL EXAMINATION: VITAL SIGNS: On exam, temperature is 98, blood pressure is 199/50, respiratory rate Is 22, heart rate of 61. HEENT: Examination of HEENT is unremarkable. NECK: Supple. LUNGS: Have decreased breath sounds. HEART: Normal S1, S2. ABDOMEN: Soft, nontender. LABORATORY DATA: Laboratory examination reveals the patient's white count of 12,200, hemoglobin is noted and chemistries reveals the creatinine is 1.2. Urinalysis is noted and serology is noted. Vanco trough of 23 as of this morning with a creatinine of 1.2, with GFR of 53. Review of orders reveals the patient to be on meropenem and the vancomycin was discontinued and the patient is also on Solu-Cortef. We will explain the white count going up. ASSESSMENT AND PLAN: A 73-year-old female with super morbid obesity, body mass index of 81, coronary artery disease, congestive heart failure, diabetes mellitus, atrial fibrillation, chronic edema, chronic obstructive lung disease, home oxygen therapy, admitted with severe sepsis, bilateral lower extremity cellulitis, right side much worse than the left side. Currently on vancomycin and meropenem day #15 with vanco level of 23. Vancomycin is on hold. We will be discontinuing the antibiotics in next 24 hours. The patient had adequate therapy, leukocytosis most likely now from the initiation of Solu-Cortef. Santy Fernandez MD
[2018-06-16] MEDS: Clotrimazole 1% Cream(30 gm) TOP SCH ×2 (15:02→19:01)
[2018-06-16] MEDS: Silver Sulfadiazine 1% Cream (25 gm) TP SCH ×2 (19:01→21:41)
--- NOTE | 2018-06-16 21:10 | PN ---
DATE: 06/16/2018 SUBJECTIVE: The patient's blood pressure is borderline low. Atrial fibrillation is in a controlled rate. PHYSICAL EXAMINATION: VITAL SIGNS: Blood pressure 90/67, heart rate 87, temperature 98 degrees Fahrenheit, respirations 13. HEENT: Pale conjunctivae. CHEST: Minimal rhonchi. HEART: S1 and S2 regular. EXTREMITIES: 2+ to 3+ pitting edema. LABORATORY DATA: Hemoglobin and hematocrit 8.6 and 27.3, white count 12.2, platelet count 459,000. Today's SMA-7 is within normal limits except for glucose of 165 and BUN of 23. Today's INR is 2.92. Repeat digoxin level is 2.6. ASSESSMENT: 1. Chronic atrial fibrillation. 2. Hypotension. 3. Severe pulmonary hypertension. 4. Digitalis overdose. 5. Morbid obesity. 6. Bilateral lower extremity cellulitis. RECOMMENDATIONS: Discontinue digoxin. Hold Cardizem for systolic blood pressure below 100. The patient will receive Coumadin 2.5 mg today. Continue IV meropenem at 1 g every 8 hours. Synthroid 25 mcg once a day, Solu-Cortef 50 mg intravenously every 6 hours. João Segundo MD
--- NOTE | 2018-06-16 22:27 | PN ---
DATE: 06/16/2018 SUBJECTIVE: This is the fourth day in a row that she is feeling okay. She is in the intensive care unit bed 4. Her is with her. She slept fairly well. The blood pressure is holding. She feels like she could eat a little bit. No more abdominal pain. MEDICATIONS: She is on simethicone, diphenhydramine, Cardizem, Cepacol, DuoNeb, Flonase, Glucophage, insulin, Lotrimin, Merrem IV, MiraLax, nystatin, Pepcid, Periactin, ProAmatine, Pulmicort, Silvadene cream, Solu-Cortef, Synthroid, Tylenol, and Zofran. PHYSICAL EXAMINATION: VITAL SIGNS: She has a 98 temp, 87 pulse, 90/67 blood pressure, 37 respiratory rate down to 19 respiratory rate, 96% O2 sat on oxygen. HEENT: Head is atraumatic, normocephalic. HEART: Regular rate. LUNGS: Decreased breath sounds, but clear, fair inspiration with no wheezes, rhonchi, or rales. ABDOMEN: Morbidly, morbidly, morbidly obese, nontender. Positive bowel sounds. EXTREMITIES: +10/4 pitting edema, but is still shrinking down. She has lot of lymphedema. Bilateral thighs have ulcers, which have decrease in oozing. She definitely lost weight. She was here about a month ago with 700 pounds. Now she is under 600. Definitely she is under mid to low 550. She is doing much better. LABORATORY DATA: She has a 12.2 white count, went up a little, it was 11.6 yesterday; 8.6 hemoglobin; 27.3 hematocrit with 457 platelets. INR is good at 2.92. 136 sodium, potassium 4.5, BUN 23, creatinine 1.2, GFR is 40, blood sugar is 165, calcium is 8.2. I will increase her metformin. Total bilirubin is 0.4, AST is 15, ALT is 15, alkaline phosphatase is 111, total protein is 5.9. ASSESSMENT AND PLAN: So she is getting improved. After discussing with Infectious Disease, we could change her over to p.o. antibiotics. She has been seen by GI, Infectious Disease, Cardiology, Pulmonary. She has issues left, but she is improving. We will check her labs tomorrow and adjust medications. Alan Mann DO
[2018-06-17] MEDS: Albuterol-Ipratrop 3 mg / 0.5 (3 ml) UD IH SCH ×4 (01:01→20:16)
[2018-06-17] MEDS: Meropenem IV 1 gm in NS 1 GM/50 ML BAG IVPB SCH (05:42)
[2018-06-17 06:07] LABS: HEMOGLOBIN 8.9 g/dL (12.0-16.0); MEAN CELL VOLUME 83.9 fl (80.0-105.0); MEAN CORPUSCULAR HEMOGLOBIN 26.5 pg (25.0-35.0); MEAN CORPUSCULAR HGB CONC 31.6 g/dl (31.0-37.0); MEAN PLATELET VOLUME 9.6 fl (7.0-11.0); RBC 3.36 10^6/uL (3.5-6.1); RED CELL DISTRIBUTION WIDTH 16.6 % (11.5-14.5); WHITE BLOOD COUNT 11.8 10^3/uL (4.5-11.0)
[2018-06-17 06:26] LABS: INR 3.28; PROTHROMBIN TIME 38.6 SECONDS (9.4-12.5)
[2018-06-17 06:31] LABS: ALB/GLOB RATIO 0.8 (1.1-1.8); ALBUMIN 2.6 g/dL (3.0-4.8); CALCIUM 8.2 mg/dL (8.4-10.5)
[2018-06-17] MEDS: Insulin Reg-MEDIUM-Coverage SC SCH ×4 (08:00→22:44)
[2018-06-17] MEDS: Budesonide 0.5 mg/2 ml Inhal Susp UD IH SCH ×2 (08:42→20:17)
[2018-06-17] MEDS: Nystatin 100,000 Units/ml Oral Susp 5 ml UD PO SCH ×4 (09:39→21:33)
[2018-06-17] MEDS: Levothyroxine 25 MCG TAB PO SCH (09:39)
[2018-06-17] MEDS: POLYETHYLENE GLYCOL 3350 17 GM/Dose PACKET PO SCH (09:46)
[2018-06-17] MEDS: Clotrimazole 1% Cream(30 gm) TOP SCH ×2 (10:00→19:48)
[2018-06-17] MEDS: Silver Sulfadiazine 1% Cream (25 gm) TP SCH ×2 (10:30→22:45)
--- NOTE | 2018-06-17 11:33 | PN ---
DATE: 06/17/2018 REASON FOR DICTATION: Covering Dr. Segundo. REASON FOR CONSULTATION: Atrial fibrillation, hypertension. SUBJECTIVE: The patient denies any chest pain. Denies any shortness of breath. Denies any palpitation. is at the bedside. PHYSICAL EXAMINATION: VITAL SIGNS: Height of the patient is 6 feet, weight of the patient is 604, body mass index 82 kg/m2. Temperature afebrile, heart rate 64, blood pressure 130/80. HEENT: PERRLA. Extraocular muscles intact. NECK: Supple. No carotid bruit. No thyromegaly. CHEST: Clear to auscultation. HEART: S1 and S2 regular. ABDOMEN: Soft. EXTREMITIES: Clubbing and cyanosis negative. LABORATORY DATA: WBC 11.8, hemoglobin 8.9, hematocrit 28.2, platelet count 444. Chemistry shows sodium 135, potassium 4.7, chloride 104, carbon dioxide 23, anion gap of 13, BUN 25, creatinine 1.3. IMPRESSION: A 73-year-old female with past medical history significant for chronic atrial fibrillation, hypertension, morbid obesity, pulmonary hypertension, bilateral lower extremity cellulitis. Admitted with generalized weakness, lethargy, history of chronic atrial fibrillation. RECOMMENDATIONS: Dig level was 2.6 yesterday, on hold. Continue Cardizem 60 every 6. Continue broad-spectrum antibiotics for urosepsis. Continue anticoagulation. INR yesterday was 2.92, today is 3.28, so it was on hold. Repeat INR today because supratherapeutic . We will repeat INR tomorrow. Further recommendations depending on the hospital course. We will transfer care tomorrow to Dr. Segundo/Dr. Turk. Thank you, Dr. Song for providing us the opportunity in taking care of the patient, Maria Isabel Bowden. Maddy Morales MD
--- NOTE | 2018-06-17 13:30 | PN ---
DATE: 06/17/2018 SUBJECTIVE: The patient is seen earlier this morning in 129, bed 4. No fevers. No chills. No nausea. PHYSICAL EXAMINATION: VITAL SIGNS: On exam, temperature is 98, blood pressure is 107/40, respiratory rate of 18, heart rate of 55. HEENT: Examination of HEENT is unremarkable. NECK: Supple. LUNGS: Have decreased breath sounds. HEART: Normal S1, S2. ABDOMEN: Soft, nontender. LABORATORY DATA: Laboratory examination reveals the patient's white count is down to 11,800, hemoglobin of 8, creatinine is 1.3. Procalcitonin is noted be 0.3. Urinalysis is reviewed. Microbiology is reviewed. ASSESSMENT AND PLAN: A 73-year-old female with super morbid obesity with a body mass index of 81 with a coronary artery disease, congestive heart failure, diabetes mellitus, atrial fibrillation, chronic edema, chronic obstructive lung disease, home oxygen therapy. Admitted with severe sepsis, bilateral lower extremity cellulitis, right side much worse than the left. Today is day #16 of antibiotics. The vancomycin was discontinued yesterday. We will discontinue the meropenem today. The patient has had adequate antibiotic therapy. No further antibiotics needed at this time. The patient does have mild leukocytosis. However, she is on Solu-Cortef. She is at high risk of developing nosocomial infections. Santy Fernandez MD
--- NOTE | 2018-06-17 14:30 | PN ---
DATE: 06/17/2018 SUBJECTIVE: She is in Intensive Care Unit bed 4. The says she has been very lethargic and sleeping more in the past 24 hours. Takes the meds, goes back to sleep, eating some but not a lot, not going to the bed, and is very tired. MEDICATIONS: She is on Cardizem, Cepacol, Coumadin, Duoneb, Flonase, Glucophage, insulin, Lotrimin, Merrem IV, MiraLax, Nystatin, Pepcid, Periactin, ProAmatine, Pulmicort, Silvadene, Solu-Cortef and Synthroid. PHYSICAL EXAMINATION: VITAL SIGNS: She has a 97.4 temp, 61 pulse, 109/54 blood pressure, 13 up to 16 respiratory rate, 100% O2 sat on oxygen. HEENT: Head is atraumatic, normocephalic. She is arousable. She will talk to you. Throat is dry. NECK: Supple. HEART: Regular rate. LUNGS: Decreased breath sounds, poor inspiration. ABDOMEN: Soft, positive bowel sounds. Morbidly, morbidly, morbidly obese. EXTREMITIES: Thinner, but still +10/4 pitting edema, lymphedema. She is very morbidly obese. Bilateral thighs have ulcers that are slowly healing with oozing. LABORATORY DATA: She has a 11.8 white count that is good, 8.9 hemoglobin, 28.2 hematocrit with 444 platelets. INR 3.28. I will hold her Coumadin. She has a 135 sodium, potassium 4.7, BUN 25, creatinine 1.3 that is a better baseline, 172 sugar, 8.2 calcium, 0.3 total bilirubin, AST is 20, ALT is 18, alk phos 102, total protein is 5.9. Vanco is 23.2. ASSESSMENT AND PLAN: Clinically she is doing fairly well, sleepy today. Her labs are not so bad, little bit better. Chronic atrial fibrillation, hypotension, severe sepsis, severe pulmonary hypertension, Digitalis overdose, morbidly obese, bilateral lower extremity cellulitis, bilateral thigh cellulitis. We are going to hold the Coumadin today. We will check her labs tomorrow. Discussed with the . As per Infectious Disease, we are going to stop the antibiotics. Alan Mann DO [facility] # [id number]
[2018-06-17] MEDS: Fluticasone Nasal 50 mcg/Spray NS SCH (19:47)
[2018-06-18] MEDS: Albuterol-Ipratrop 3 mg / 0.5 (3 ml) UD IH SCH ×3 (02:09→13:24)
[2018-06-18] MEDS: Silver Sulfadiazine 1% Cream (25 gm) TP SCH ×2 (05:45→10:02)
[2018-06-18 06:42] LABS: ALB/GLOB RATIO 0.8 (1.1-1.8); ALBUMIN 2.6 g/dL (3.0-4.8); CALCIUM 8.2 mg/dL (8.4-10.5)
[2018-06-18 06:50] LABS: HEMOGLOBIN 8.7 g/dL (12.0-16.0); MEAN CELL VOLUME 83.3 fl (80.0-105.0); MEAN CORPUSCULAR HEMOGLOBIN 25.9 pg (25.0-35.0); MEAN CORPUSCULAR HGB CONC 31.1 g/dl (31.0-37.0); MEAN PLATELET VOLUME 9.4 fl (7.0-11.0); RBC 3.36 10^6/uL (3.5-6.1); RED CELL DISTRIBUTION WIDTH 16.6 % (11.5-14.5); WHITE BLOOD COUNT 11.6 10^3/uL (4.5-11.0)
[2018-06-18 07:23] LABS: PROTHROMBIN TIME 42.2 SECONDS (9.4-12.5)
--- NOTE | 2018-06-18 07:25 | PN ---
DATE: 06/18/2018 PULMONARY NOTE SUBJECTIVE: The patient appears comfortable this morning. She is not short of breath at rest. PHYSICAL EXAMINATION: VITAL SIGNS: Temperature is 97.5, pulse 78, respirations 18, blood pressure 106/45. Oxygen saturation on nasal cannula is 99%. HEENT: Normocephalic, atraumatic. No JVD. CARDIOVASCULAR: Systolic ejection murmur at the lower left sternal border. No S3 gallop. LUNGS: Decreased breath sounds at the bases. No rhonchi. No wheezing. EXTREMITIES: Less edema. No cyanosis. No clubbing. Calves are nontender to palpation. GI: Abdomen is soft, nontender and nondistended. Bowel sounds are positive. SKIN: Bilateral lower extremity cellulitis - improving. NEUROLOGIC: Limited at the present time. IMPRESSION: 1. Sepsis syndrome. 2. Bilateral cellulitis. 3. Chronic obstructive pulmonary disease. 4. Asthma. 5. Anemia. 6. Cardiac arrhythmias. 7. Positive troponin, rule out myocardial infarction. PLAN: The patient appears very comfortable this morning. She is not short of breath at rest. She does state to feeling much better overall. I did discuss the case with the night nurse at length. The night nurse stated that the patient had a good night. On physical exam, her bronchospasm has primarily resolved. In addition, the oxygen saturation on nasal cannula is 99%. I will continue with the current nebulizer treatments and inhaled steroids for now. Inputs by Cardiology and Infectious Disease are also noted. Clinical status of the patient is significantly improved - compared to the initial presentation. Her overall status/prognosis does remain very guarded at best. I will discuss the above with the entire ICU team in the next few moments. I will also discuss the above with the attending physician. Ke Farooq MD ANUP
[2018-06-18 07:32] LABS: INR 3.58
[2018-06-18] MEDS: Insulin Reg-MEDIUM-Coverage SC SCH ×3 (08:26→16:42)
--- NOTE | 2018-06-18 08:32 | PN ---
DATE: 06/16/2018 PULMONARY PROGRESS NOTE SUBJECTIVE: The patient was seen and examined at bedside in intensive care unit. Her is present at the bedside. She is currently receiving respiratory treatment. PHYSICAL EXAMINATION: VITAL SIGNS: Her temperature is 98, pulse 72, respirations 20, pulse oximetry is 96 on nasal cannula, blood pressure 99/50. HEAD: Normocephalic and atraumatic. NECK: Supple with no jugular vein distention. CARDIOVASCULAR: S1, S2. No S3, 2/6 systolic ejection murmur. PULMONARY: Diminished breath sounds at both bases. No rhonchi, no wheezing. GI: Soft, nontender, obese, bowel sounds present. EXTREMITIES: 3+ bilateral edema. SKIN: Bilateral lower extremity cellulitis, improving. NEUROLOGIC: No focal deficits. LABORATORY DATA: I have reviewed today's blood work, WBC 12.2, hemoglobin of 8.6, blood sugar is elevated. Chemistries are within normal limits, albumin is reduced at 2.5. ASSESSMENT: 1. Chronic obstructive pulmonary disease. 2. Bronchial asthma. 3. Sepsis syndrome. 4. Bilateral cellulitis. PLAN: The patient appears comfortable. She is receiving respiratory treatments and her oxygen saturation is acceptable. We will continue with all current interventions, which were discussed with ICU team. Valerio Pritchett MD
[2018-06-18] MEDS: Budesonide 0.5 mg/2 ml Inhal Susp UD IH SCH ×2 (08:44→20:08)
[2018-06-18] MEDS ORDERED: Sodium Chloride 0.9% 1,000 ML IV SCH (08:45)
[2018-06-18] MEDS: Nystatin 100,000 Units/ml Oral Susp 5 ml UD PO SCH (09:59)
[2018-06-18] MEDS: POLYETHYLENE GLYCOL 3350 17 GM/Dose PACKET PO SCH (10:00)
[2018-06-18] MEDS: Clotrimazole 1% Cream(30 gm) TOP SCH ×2 (10:03→17:20)
[2018-06-18] MEDS: Fluticasone Nasal 50 mcg/Spray NS SCH (10:07)
--- NOTE | 2018-06-18 10:28 | PN ---
DATE: 06/18/2018 SUBJECTIVE: I saw her in the intensive care unit bed 4. is present. She slept fairly well last night. May be a little bit better than yesterday, but not herself. She has lots of questions for me. MEDICATIONS: She is currently on Cardizem, DuoNeb, Flonase, Glucophage, insulin, Lotrimin, MiraLax, nystatin, Pepcid, Periactin, ProAmatine, Silvadene and Pulmicort Respules. It looks like she is off the antibiotics right now. PHYSICAL EXAMINATION: VITAL SIGNS: She has a 97.5 temp, 78 pulse, 30 respiratory rate, 106/45 blood pressure. HEENT: Head is atraumatic, normocephalic. HEART: Regular rate. LUNGS: Decreased breath sounds, but clear. ABDOMEN: Soft. Morbidly, morbidly, morbidly obese. Nontender. Positive bowel sounds. EXTREMITIES: with lymphedema of bilateral lower extremities and bilateral thigh ulcers with oozing that is improved. LABORATORY DATA: Her white count today is 11.6, it is the it has been; 8.7 hemoglobin; 28 hematocrit with a 421 platelets. Her INR is 3.58. I am going to hold the Coumadin. Her last lactate was 1.6 on 06/02/2018. She has a 137 sodium, potassium 4.8, BUN 28, creatinine 1.3, it is a little bit up for her. GFR is 40, sugar is 172, calcium is 8.2, total bili is 0.3, AST is 20, ALT is 18, alk phos 102, total protein is 5.9. Urine showed many on 06/11/2018. Vancomycin trough was high. Digoxin was high at 2.6, which is new that could be why she is not feeling well. ASSESSMENT AND PLAN: I am going to stop the digoxin right now. Her BUN and creatinine went up a little bit. I am going to give her a little bit of IV fluids. See if we could get her out of this feeling that she is going through. She does not look well clinically and if she does well with the digoxin level tomorrow, she feels better tomorrow, we can discharge her home tomorrow. I felt it could be digoxin toxicity. Alan Mann DO ANUP
--- NOTE | 2018-06-18 10:36 | PN ---
DATE: 06/18/2018 SUBJECTIVE: She is in the intensive care unit bed 4. I was hoping that I could possibly discharge her today, but she is in and out of it mentally, very weak, sleeping a lot. It could be the digoxin level. I ordered the digoxin level for today. She is off the digoxin. Also, her INR is a little bit high at 3.58 yesterday. I am waiting for one to come back from this morning. The Coumadin and the digoxin have been held. She is not on them at this time. MEDICATIONS: She is on Cardizem, Cepacol, DuoNebs, Flonase, metformin, insulin coverage, Lotrimin cream, MiraLax, nystatin, Pepcid, Periactin, midodrine, Pulmicort, Silvadene. She is going to get a 250 bolus of IV fluids of 0.9, Solu-Cortef. PHYSICAL EXAMINATION: VITAL SIGNS: She has a temperature of 97.5 temp, 60 pulse, 118/54 blood pressure, 19 respiratory rate, 83% O2 sat. HEENT: Head is atraumatic, normocephalic. HEART: Regular rate. LUNGS: Decreased breath sounds, but clear. ABDOMEN: Soft. Morbidly, morbidly, morbidly obese. EXTREMITIES: Lots of lymphedema. PSYCHIATRIC: She is in and out of it mentally. LABORATORY DATA: I am concerned about her digoxin level, her INR. She could be a little bit dry. Her chemistry was 25 BUN, creatinine 1.3, it is going up that is why I gave her the bolus. ASSESSMENT AND PLAN: She is off the antibiotics, which is good. If we get her back mentally a little bit and the levels flattened out, we will discharge her in the next 24 hours, I am hoping. Alan Mann DO
[2018-06-18 12:32] LABS: IRON 25 ug/dL (45-180)
[2018-06-18 12:55] LABS: % IRON SATURATION 12 % (20-55); TOTAL IRON BINDING CAPACITY 214 ug/dL (265-497)
--- NOTE | 2018-06-18 14:42 | PN ---
DATE: 06/18/2018 SUBJECTIVE: The patient is awake and alert in bed. PHYSICAL EXAMINATION: VITAL SIGNS: Blood pressure is 98 systolic and heart rate is atrial fibrillation in the 60's. NECK: Negative JVD. LUNGS: Decreased breath sounds. HEART: S1 and S2. EXTREMITIES: Chronic edema. LABORATORY DATA: Hemoglobin is 8.7. Chemistry: BUN and creatinine are unremarkable. IMPRESSION: 1. Sepsis. 2. Severe pulmonary hypertension. 3. Diabetes mellitus. 4. Chronic pedal edema. 5. Normal left ventricular function. 6. Morbid obesity. Given these findings, we will discontinue her Cardizem. We will start her on low dose long-acting Cardizem to help control the heart rate. Ryan Turk MD
--- NOTE | 2018-06-18 15:21 | CP.PCM.CON ---
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 Maintain hemodynamics stable. Avoid hypotension. Patient not on ACEI/ARB due to recent CRIS and low BP. pt on midodrine. also on rate control CCB. Monitor Input/Output, daily weights and renal function with basic metabolic laboratory monitor dig level started iron and MVI can stop IVF considering her cor pulmonale. Check urine analysis, spot protein/creatinine, albumin/creatinine ratio, urine Na/Cr Anemia work up with TSAT/Ferritin/Vitamin B12/folate, serum protein electrophoresis with immunofixation, serum free light chain assay ([place]/[facility]) Check for 25-OH vitamin D, iPTH, phosphorus level. Dose meds/antibiotics for reduced GFR. Avoid fleets enema/magnesium based laxatives. Avoid nephrotoxins/NSAIDs/ iodinated contrast (unless needed emergently) Glycemic control Further work up/management as per primary team Thanks for allowing me to participate in care of your patient. Will follow patient with you. Please call if any Qs. had d/w team. 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 renal consult for CRIS e valuation. started on IVF to help with it. Denies OTC/herbal meds or NSAIDs No recent iodinated contrast exposure. Noted obvious episodes of low BP (90/30s). reports chronic legs swelling. not aware about kidney disease in past. ROS: Cardiovascular: No chest pain. Pulmonary: has chronic shortness of breath Gastrointestinal: denies abdominal pain No nausea. No vomiting. Genitourinary: No pain while urinating. Denies blood in urine. All other negative except as mentioned in HPI. has chronic legs swelling Physical Examination: General Appearance: Comfortable, in no acute respiratory distress, co-operative . obese ++ Vitals reviewed and noted as below Head; Atraumatic, normocephalic ENT: no ulcers no thrush. Tongue is midline. Oropharynx: no rash or ulcers. EYES: Pupils are equal, round and reactive to light accommodation. Eye muscles and extraocular movement intact. Sclera is anicteric. Neck; supple no lymphadenopathy, no thyromegaly or bruit Lungs: Normal respiratory rate/effort. Breath sounds bilateral equal and decreased at bases Heart: Normal rate. s1s2 normal. No rub or gallop. Extremities: 3+ edema. No varicose veins Neurological: Patient is alert, awake and oriented to person, place and time. No focal deficit. Strength bilateral appropriate and equal Skin: Warm and dry. Normal turgor. No rash. Palpitation: Normal elasticity for age Abdomen: Abdomen is soft. Bowel sounds +. There is no abdominal tenderness, no guarding/rigidity no organomegaly Psych: normal insight and normal affect/mood MSK: no joint tenderness or swelling. Digits and nails normal, no deformity : kidney or bladder not palpable Labs/imaging reviewed. Past medical history, past surgical history, family history, social history, allergy reviewed and noted as below Family hx: no hx of CKD. Rest non-contributory Echo; normal lvef, severe MR/TR/DE renal imaging: left kidney cyst CXR congestion Past Patient History - Infectious Disease Hx of Infectious Diseases: None - Tetanus Immunizations Tetanus Immunization: Unknown - Past Social History Smoking Status: Never Smoked - CARDIAC Hx Pacemaker: No - PULMONARY Hx Respiratory Disorders: Yes (using 02 at home/ nebulizer machine) Hx Asthma: Yes Hx Chronic Obstructive Pulmonary Disease (COPD): Yes Hx Emphysema: Yes Hx Pneumonia: Yes - NEUROLOGICAL Hx Neurological Disorder: No - HEENT Hx HEENT Problems: Yes (glasses) Other/Comment: thrush to oral cavity and tongue - RENAL Hx Chronic Kidney Disease: No - ENDOCRINE/METABOLIC Hx Endocrine Disorders: Yes Hx Diabetes Mellitus Type 2: Yes - HEMATOLOGICAL/ONCOLOGICAL Hx Cancer: No - INTEGUMENTARY Hx Dermatological Problems: Yes (chronic venous stasis dermatitis ble) Other/Comment: pt is obese, right outer thigh skin openings healed, redness, h orestes brown dry skin, dimpling to left thigh, pt c/o that she, sometimes has drainage from left thigh. both lower legs and feet dry skin. redness and discoloration to right abd fold healed, pt unable to turn in bed to assess skin on back, ble +4 pitting edema redness - MUSCULOSKELETAL/RHEUMATOLOGICAL Hx Musculoskeletal Disorders: Yes Hx Falls: No Hx Unsteady Gait: Yes (bedbound) - GASTROINTESTINAL Hx Gastrointestinal Disorders: Yes (benign mass removed from abd 30 yrs ago) Other/Comment: morbid obesity - GENITOURINARY/GYNECOLOGICAL Hx Genitourinary Disorders: Yes Hx Incontinence: Yes (urine and stool) Hx Urinary Tract Infection: Yes - PSYCHIATRIC Hx Psychophysiologic Disorder: No Hx Substance Use: No - SURGICAL HISTORY Hx Mastectomy: No - ANESTHESIA Hx Anesthesia: Yes Meds Allergies/Adverse Reactions: Allergies Allergy/AdvReac Type Severity Reaction Status Date / Time No Known Allergies Allergy Verified 04/26/18 06:48 - Medications Medications: Current Medications Benzocaine/Menthol (Cepacol Sore Throat) 1 rosa MT Q2H PRN PRN Reason: Sore Throat Last Admin: 06/16/18 09:49 Dose: 1 rosa Budesonide (Pulmicort Respules) 0.5 mg IH [id number] [facility] Last Admin: 06/18/18 08:44 Dose: 0.5 mg Clotrimazole (Lotrimin 1%) 1 gm TOP BID [facility] Last Admin: 06/18/18 10:03 Dose: 1 applic Cyproheptadine HCl (Periactin) 4 mg PO DAILY [facility] Last Admin: 06/18/18 09:58 Dose: 4 mg Diltiazem HCl (Cardizem Cd) 120 mg PO DAILY [facility] Famotidine (Pepcid) 40 mg PO 1000,2200 [facility] Last Admin: 06/18/18 09:58 Dose: 40 mg Fluticasone Propionate (Flonase) 1 actuation NS DAILY [facility] Last Admin: 06/18/18 10:07 Dose: 1 spray Hydrocortisone Sodium Succinate (Solu-Cortef) 50 mg IVP Q12 [facility] Last Admin: 06/18/18 09:59 Dose: 50 mg Sodium Chloride (Sodium Chloride 0.9%) 1,000 mls @ 80 mls/hr IV .[id number] [facility] Last Admin: 06/18/18 10:00 Dose: 80 mls/hr Insulin Human Regular (Humulin R Med) 0 units SC ACHS [facility]; Protocol Last Admin: 06/18/18 14:01 Dose: Not Given Metformin HCl (Glucophage) 1,000 mg PO BID [facility] Last Admin: 06/18/18 09:59 Dose: 1,000 mg Midodrine (Proamatine) 5 mg PO TID [facility] Last Admin: 06/18/18 09:58 Dose: 5 mg Polyethylene Glycol (Miralax) 17 gm PO DAILY [facility] Last Admin: 06/18/18 10:00 Dose: 17 gm Silver Sulfadiazine (Silvadene 1% 25 Gm) 0 gm TP Q12H [facility] Last Admin: 06/18/18 10:02 Dose: 25 gm Results - Vital Signs Recent Vital Signs: Last Vital Signs Temp 97.5 F L 06/18/18 04:00 Pulse 79 06/18/18 06:11 Resp 58 H 06/18/18 06:11 BP 106/45 L 06/18/18 06:11 Pulse Ox 83 L 06/18/18 06:11 - Labs Result Diagrams: 06/18/18 06:15 06/18/18 06:15 Labs: Laboratory Results - last 24 hr 06/17/18 06/17/18 06/17/18 12:07 17:25 22:49 WBC RBC Hgb Hct MCV MCH MCHC RDW Plt Count MPV PT INR Sodium Potassium Chloride Carbon Dioxide Anion Gap BUN Creatinine Est GFR ( Amer) Est GFR (Non-Af Amer) POC Glucose (mg/dL) 187 H 159 H 173 H Random Glucose Calcium Iron TIBC % Saturation Total Bilirubin AST ALT Alkaline Phosphatase Total Protein Albumin Globulin Albumin/Globulin Ratio Digoxin 06/18/18 06/18/18 06/18/18 06:15 06:15 06:15 WBC 11.6 H RBC 3.36 L Hgb 8.7 L Hct 28.0 L MCV 83.3 MCH 25.9 MCHC 31.1 RDW 16.6 H Plt Count 421 MPV 9.4 PT 42.2 H INR 3.58 H* Sodium 137 Potassium 4.8 Chloride 104 Carbon Dioxide 25 Anion Gap 12 BUN 28 H Creatinine 1.3 H Est GFR ( Amer) 48 Est GFR (Non-Af Amer) 40 POC Glucose (mg/dL) Random Glucose 162 H Calcium 8.2 L Iron TIBC % Saturation Total Bilirubin 0.3 AST 14 D ALT 16 Alkaline Phosphatase 95 Total Protein 6.0 Albumin 2.6 L Globulin 3.3 Albumin/Globulin Ratio 0.8 L Digoxin 06/18/18 06/18/18 06/18/18 08:14 10:50 11:21 WBC RBC Hgb Hct MCV MCH MCHC RDW Plt Count MPV PT INR Sodium Potassium Chloride Carbon Dioxide Anion Gap BUN Creatinine Est GFR ( Amer) Est GFR (Non-Af Amer) POC Glucose (mg/dL) 157 H Random Glucose Calcium Iron 25 L TIBC 214 L % Saturation 12 L Total Bilirubin AST ALT Alkaline Phosphatase Total Protein Albumin Globulin Albumin/Globulin Ratio Digoxin 2.5 H* 06/18/18 12:07 WBC RBC Hgb Hct MCV MCH MCHC RDW Plt Count MPV PT INR Sodium Potassium Chloride Carbon Dioxide Anion Gap BUN Creatinine Est GFR ( Amer) Est GFR (Non-Af Amer) POC Glucose (mg/dL) 163 H Random Glucose Calcium Iron TIBC % Saturation Total Bilirubin AST ALT Alkaline Phosphatase Total Protein Albumin Globulin Albumin/Globulin Ratio Digoxin
--- NOTE | 2018-06-18 16:06 | CP.PCM.PN ---
Subjective - Date & Time of Evaluation Date of Evaluation: 06/18/18 Time of Evaluation: 08:05 - Subjective Subjective: No fevers, not in distress but still feels weak, no nausea, no diarrhea. Objective - Vital Signs/Intake and Output Vital Signs (last 24 hours): Temp Pulse Resp BP Pulse Ox 97.5 F L 71 12 100/44 L 100 06/17/18 20:09 06/17/18 20:08 06/17/18 20:08 06/17/18 20:08 06/17/18 20:08 Intake and Output: 06/17/18 06/18/18 18:59 06:59 Intake Total 1020 Output Total 200 Balance 820 - Medications Medications: Current Medications Albuterol/Ipratropium (Duoneb 3 Mg/0.5 Mg (3 Ml) Ud) 3 ml IH [id number] [facility] Last Admin: 06/17/18 20:16 Dose: Not Given Benzocaine/Menthol (Cepacol Sore Throat) 1 rosa MT Q2H PRN PRN Reason: Sore Throat Last Admin: 06/16/18 09:49 Dose: 1 rosa Budesonide (Pulmicort Respules) 0.5 mg IH [id number] [facility] Last Admin: 06/17/18 20:17 Dose: Not Given Clotrimazole (Lotrimin 1%) 1 gm TOP BID [facility] Last Admin: 06/17/18 19:48 Dose: Not Given Al Hydrox/Mg Hydrox/Simethicone 30 ml/Diphenhydramine HCl 75 mg/Lidocaine 30 ml 0 ml PO Q2H PRN PRN Reason: Mouth/Throat Pain Last Admin: 06/07/18 10:25 Dose: 30 susp Cyproheptadine HCl (Periactin) 4 mg PO DAILY [facility] Last Admin: 06/17/18 09:39 Dose: 4 mg Diltiazem HCl (Cardizem) 60 mg PO Q8 [facility] Last Admin: 06/17/18 19:47 Dose: Not Given Famotidine (Pepcid) 40 mg PO 1000,2200 [facility] Last Admin: 06/17/18 09:39 Dose: 40 mg Fluticasone Propionate (Flonase) 1 actuation NS DAILY [facility] Last Admin: 06/17/18 19:47 Dose: 1 spray Hydrocortisone Sodium Succinate (Solu-Cortef) 50 mg IVP Q6 [facility] Last Admin: 06/17/18 19:49 Dose: 50 mg Insulin Human Regular (Humulin R Med) 0 units SC ACHS [facility]; Protocol Last Admin: 06/17/18 19:48 Dose: Not Given Metformin HCl (Glucophage) 1,000 mg PO BID [facility] Last Admin: 06/17/18 19:47 Dose: 1,000 mg Midodrine (Proamatine) 5 mg PO TID [facility] Last Admin: 06/17/18 19:48 Dose: 5 mg Nystatin (Nystatin Oral Susp) 5 ml PO QID [facility] Last Admin: 06/17/18 19:48 Dose: 5 ml Polyethylene Glycol (Miralax) 17 gm PO DAILY [facility] Last Admin: 06/17/18 09:46 Dose: 17 gm Silver Sulfadiazine (Silvadene 1% 25 Gm) 0 gm TP Q12H [facility] Last Admin: 06/17/18 10:30 Dose: 1 gm - Labs Labs: 06/17/18 05:50 06/17/18 05:50 PT 38.6 SECONDS (9.4-12.5) H 06/17/18 05:50 INR 3.28 06/17/18 05:50 APTT 36.2 Seconds (25.1-36.5) 06/01/18 15:10 - Constitutional Appears: No Acute Distress, Chronically Ill - Head Exam Head Exam: NORMAL INSPECTION - Neck Exam Neck Exam: absent: Meningismus - Respiratory Exam Respiratory Exam: Decreased Breath Sounds - Cardiovascular Exam Cardiovascular Exam: +S1, +S2 - GI/Abdominal Exam GI & Abdominal Exam: Soft. absent: Tenderness Assessment and Plan - Assessment and Plan (Free Text) Plan: Assessment Pseudomonas bilateral infected wound on lower extremities, S/P treatment with 16 days of antibiotics history of right thigh wound infection with ESBL-producing E. coli history of urinary tract infection COPD CHF morbid obesity with BMI 70 history of right leg surgery and breast surgery chronic ulcers on the lower extremities Plan completed 16 days of Merrem - continue local wound care by surgery continue to monitor off antibiotics since she is at risk for nosocomial infections discussed with Dr. Mann
[2018-06-18 16:32] LABS: FOLATE 3.8 ng/mL
[2018-06-18 18:11] LABS: CREATININE,RANDOM URINE 90 mg/dL
[2018-06-19] MEDS: Insulin Reg-MEDIUM-Coverage SC SCH ×6 (04:39→21:54)
[2018-06-19] MEDS: Silver Sulfadiazine 1% Cream (25 gm) TP SCH ×2 (06:58→11:30)
[2018-06-19 07:07] LABS: HEMOGLOBIN 8.7 g/dL (12.0-16.0); MEAN CELL VOLUME 82.6 fl (80.0-105.0); MEAN CORPUSCULAR HGB CONC 31.5 g/dl (31.0-37.0); MEAN PLATELET VOLUME 9.5 fl (7.0-11.0); RBC 3.34 10^6/uL (3.5-6.1); RED CELL DISTRIBUTION WIDTH 16.9 % (11.5-14.5); WHITE BLOOD COUNT 10.5 10^3/uL (4.5-11.0)
--- NOTE | 2018-06-19 07:14 | PN ---
DATE: 06/19/2018 PULMONARY NOTE SUBJECTIVE: The patient appears comfortable this morning. She is not short of breath at rest. PHYSICAL EXAMINATION: VITAL SIGNS: (Last noted in the computer): Temperature is 97.9, pulse 65, respirations 16, blood pressure 99/43. Oxygen saturation on nasal cannula is 100%. HEENT: Normocephalic, atraumatic. No JVD. CARDIOVASCULAR: Systolic ejection murmur at the lower left sternal border. No S3 gallop. LUNGS: Decreased breath sounds at the bases. No rhonchi. No wheezing. EXTREMITIES: Less edema. No cyanosis. No clubbing. Calves are nontender to palpation. GI: Abdomen is soft, nontender and nondistended. Bowel sounds are positive. SKIN: Bilateral lower extremity cellulitis - improving. NEUROLOGIC: Limited at the present time. IMPRESSION: 1. Sepsis syndrome. 2. Bilateral cellulitis. 3. Chronic obstructive pulmonary disease. 4. Asthma. 5. Anemia. 6. Cardiac arrhythmias. 7. Positive troponin, rule out myocardial infarction. PLAN: The patient appears comfortable this morning. She is not short of breath at rest. She does state to feeling much better overall. I did discuss the case with the night nurse at length. The night nurse stated that the patient had an uneventful night. On physical exam, her bronchospasm has primarily resolved. In addition, the oxygen saturation on nasal cannula is now 100%. I will continue with the current nebulizer treatments and inhaled steroids for now. I will also discontinue the intravenous hydrocortisone for now. Inputs by Cardiology, Infectious Disease and Renal are also noted. Clinical status of the patient is significantly improved - compared to her initial presentation. Her overall status/prognosis does remain very guarded at best. I will discuss the above with the entire ICU team in the next few moments. I will also discuss the above with Dr. Mann later this morning. Ke Farooq MD ANUP
[2018-06-19 07:19] LABS: ALB/GLOB RATIO 0.8 (1.1-1.8); ALBUMIN 2.7 g/dL (3.0-4.8); CALCIUM 8.2 mg/dL (8.4-10.5); INR 3.43
[2018-06-19 07:37] LABS: PROTHROMBIN TIME 40.4 SECONDS (9.4-12.5)
[2018-06-19] MEDS: Budesonide 0.5 mg/2 ml Inhal Susp UD IH SCH (07:50)
[2018-06-19] MEDS: Multivitamin Vitamin B Complex (Nephro-Vite) Tab PO SCH (09:29)
[2018-06-19] MEDS: Fluticasone Nasal 50 mcg/Spray NS SCH (11:00)
[2018-06-19] MEDS: Clotrimazole 1% Cream(30 gm) TOP SCH ×2 (11:32→18:03)
[2018-06-19] MEDS: POLYETHYLENE GLYCOL 3350 17 GM/Dose PACKET PO SCH (11:33)
[2018-06-19] MEDS: diltiaZEM 120 mg/24 Hours CD Cap PO SCH (12:00)
--- NOTE | 2018-06-19 12:27 | CP.PCM.PN ---
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 Maintain hemodynamics stable. Avoid hypotension. Patient not on ACEI/ARB due to recent CRIS and low BP. pt on midodrine. also on rate control CCB. 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 Dose meds/antibiotics for reduced GFR. Avoid fleets enema/magnesium based laxatives. Avoid nephrotoxins/NSAIDs/ iodinated contrast (unless needed emergently) Glycemic control Further work up/management as per primary team pt stable for d/c from renal perspective when planned Thanks for allowing me to participate in care of your patient. Will follow patient with you. Please call if any Qs. had d/w team. 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 renal consult for CRIS evaluation. started on IVF to help with it. Denies OTC/herbal meds or NSAIDs No recent iodinated contrast exposure. Noted obvious episodes of low BP (90/30s). reports chronic legs swelling. not aware about kidney disease in past. ROS: Cardiovascular: No chest pain. Pulmonary: has chronic shortness of breath Gastrointestinal: denies abdominal pain No nausea. No vomiting. Genitourinary: No pain while urinating. Denies blood in urine. All other negative except as mentioned in HPI. has chronic legs swelling Physical Examination: General Appearance: Comfortable, in no acute respiratory distress, co-operative . obese ++ Vitals reviewed and noted as below Head; Atraumatic, normocephalic ENT: no ulcers no thrush. Tongue is midline. Oropharynx: no rash or ulcers. EYES: Pupils are equal, round and reactive to light accommodation. Eye muscles and extraocular movement intact. Sclera is anicteric. Neck; supple no lymphadenopathy, no thyromegaly or bruit Lungs: Normal respiratory rate/effort. Breath sounds bilateral equal and decreased at bases Heart: Normal rate. s1s2 normal. No rub or gallop. Extremities: 3+ edema. No varicose veins Neurological: Patient is alert, awake and oriented to person, place and time. No focal deficit. Strength bilateral appropriate and equal Skin: Warm and dry. Normal turgor. No rash. Palpitation: Normal elasticity for age Abdomen: Abdomen is soft. Bowel sounds +. There is no abdominal tenderness, no guarding/rigidity no organomegaly Psych: normal insight and normal affect/mood MSK: no joint tenderness or swelling. Digits and nails normal, no deformity : kidney or bladder not palpable Labs/imaging reviewed. Past medical history, past surgical history, family history, social history, allergy reviewed and noted as below Family hx: no hx of CKD. Rest non-contributory Echo; normal lvef, severe MR/TR/DE renal imaging: left kidney cyst CXR congestion Objective - Vital Signs/Intake and Output Vital Signs (last 24 hours): Temp Pulse Resp BP Pulse Ox 97.9 F 95 H 30 H 103/60 100 06/19/18 04:00 06/19/18 10:00 06/19/18 08:38 06/19/18 08:38 06/19/18 08:38 Intake and Output: 06/19/18 06/19/18 06:59 18:59 Intake Total 240 Output Total 350 Balance -110 - Medications Medications: Current Medications Benzocaine/Menthol (Cepacol Sore Throat) 1 rosa MT Q2H PRN PRN Reason: Sore Throat Last Admin: 06/16/18 09:49 Dose: 1 rosa Clotrimazole (Lotrimin 1%) 1 gm TOP BID [facility] Last Admin: 06/19/18 11:32 Dose: 1 applic Cyproheptadine HCl (Periactin) 4 mg PO DAILY [facility] Last Admin: 06/19/18 11:29 Dose: 4 mg Diltiazem HCl (Cardizem Cd) 120 mg PO DAILY [facility] Famotidine (Pepcid) 40 mg PO 1000,2200 [facility] Last Admin: 06/19/18 11:28 Dose: 40 mg Ferrous Gluconate (Fergon) 324 mg PO TID [facility] Last Admin: 06/19/18 11:30 Dose: 324 mg Fluticasone Propionate (Flonase) 1 actuation NS DAILY [facility] Last Admin: 06/18/18 10:07 Dose: 1 spray Insulin Human Regular (Humulin R Med) 0 units SC [facility]; Protocol Last Admin: 06/19/18 11:40 Dose: Not Given Levalbuterol HCl (Xopenex) 1.25 mg IH A1DELRE [facility] Metformin HCl (Glucophage) 1,000 mg PO BID [facility] Last Admin: 06/19/18 11:28 Dose: 1,000 mg Midodrine (Proamatine) 5 mg PO TID [facility] Last Admin: 06/19/18 11:29 Dose: 5 mg Polyethylene Glycol (Miralax) 17 gm PO DAILY [facility] Last Admin: 06/19/18 11:33 Dose: Not Given Silver Sulfadiazine (Silvadene 1%) 0 ea TOP Q12H [facility] Vitamin B Complex/Vit C/Folic Acid (Nephro-Miguelito) 1 tab PO 0800 [facility] Last Admin: 06/19/18 09:29 Dose: 1 tab - Labs Labs: 06/19/18 06:00 06/19/18 06:00 PT 40.4 SECONDS (9.4-12.5) H 06/19/18 06:00 INR 3.43 06/19/18 06:00 APTT 36.2 Seconds (25.1-36.5) 06/01/18 15:10
[2018-06-19] MEDS ORDERED: Ergocalciferol 50,000 Intl Units Cap PO SCH (12:30)
[2018-06-19] MEDS: Silver Sulfadiazine 1% Cream (400 gm) TOP SCH (12:55)
[2018-06-19] MEDS: Levalbuterol 1.25 MG/3 ML Inhal Soln UD IH SCH ×3 (13:08→20:53)
--- NOTE | 2018-06-19 15:03 | PN ---
DATE: 06/19/2018 CARDIOLOGY FOLLOWUP SUBJECTIVE: The patient is comfortable. PHYSICAL EXAMINATION: VITAL SIGNS: Heart rate is controlled in the 70s and 80s. NECK: Negative JVD. LUNGS: Decreased breath sounds. HEART: Reveals S1, S2. EXTREMITIES: Chronic edema. LABORATORY DATA: Hemoglobin is 8.7. Chemistry: BUN and creatinine are 30 and 1.3 with a glucose of 151. IMPRESSION: 1. Atrial fibrillation with heart rate is well controlled. 2. Chronic edema. 3. Severe pulmonary hypertension. 4. Normal left ventricular function. 5. Diabetes mellitus. 6. Morbid obesity. PLAN: Given these findings, the patient's heart rate is well-controlled on low-dose Cardizem. In addition, on low-dose Cardizem. We will discuss with primary care doctor about the safety of anticoagulation. Ryan Turk MD
--- NOTE | 2018-06-20 01:09 | DS ---
HOSPITAL COURSE: She will be going home today, she is very well overall. She has very bad severe sepsis, morbid obesity, cellulitis. She has been in intensive pain for a very long time and now finally she is off antibiotics and improved. MEDICATIONS: She is on Cardizem, Cepacol, Flonase, Glucophage, Lotrimin, MiraLax, Nephro-Miguelito, Pepcid, Periactin, ProAmatine, Silvadene, and Xopenex. PHYSICAL EXAMINATION VITAL SIGNS: She has 97.9 temperature, 70 pulse, 104/44 blood pressure,12 respiratory rate, 110 O2 saturation. GENERAL: She is alert. I think she is a little bit tired with the digoxin level has been up and then slowly coming down. She feels a little dig toxic too, but we stopped the digoxin and she is improving. HEAD: Atraumatic, normocephalic. HEART: Regular rate. LUNGS: Decreased breath sounds, but clear. ABDOMEN: Soft, nontender, positive bowel sounds, morbidly obese. EXTREMITIES: Swollen. She did lose weight while she was here in the hospital. She came in the last time at 700, this time she was 600, it is very possible she is in the low 500s. Discussed at length with her and her . LABORATORY DATA: She has 10.5 white count, best it has been, 8.7 hemoglobin, 27.6 hematocrit with 405 platelets. Last INR was 3.43, we are holding the Coumadin at this time. She has 137 sodium, potassium 4.8, BUN 30, creatinine 1.3, GFR is 40, sugar is 151, calcium is 8.2, total bili is 0.3, AST is 17, ALT 18, alk phos 83, total protein is 6. She will be discharged to home, we will do house call on her on . She was seen by Pulmonary, Infectious Disease, Renal, Cardiology, Surgery. I will check her lab and she will need to be put back on Coumadin once her labs and her INR settle out, and we will continue with aggressive treatment and care on Maria Isabel Bowden in the outpatient. Jordy Mann, DO [facility] # [id number]
[2018-06-20] MEDS: Levalbuterol 1.25 MG/3 ML Inhal Soln UD IH SCH ×4 (02:50→20:54)
--- NOTE | 2018-06-20 07:39 | PN ---
DATE: 06/20/2018 PULMONARY NOTE SUBJECTIVE: The patient appears very comfortable this morning. She is not short of breath at rest. PHYSICAL EXAMINATION: VITAL SIGNS: Last temperature recorded is 96.9, pulse on the monitor is 86, respiratory rate 16, blood pressure 96/40. Oxygen saturation on nasal cannula is 100%. HEENT: Normocephalic, atraumatic. No JVD. CARDIOVASCULAR: Systolic ejection murmur at the lower left sternal border. No S3 gallop. LUNGS: Decreased breath sounds at the bases. No rhonchi. No wheezing. EXTREMITIES: Less edema. No cyanosis. No clubbing. Calves are nontender to palpation. GI: Abdomen is soft, nontender and nondistended. Bowel sounds are positive. SKIN: Bilateral lower extremity cellulitis - improving. NEUROLOGIC: Limited at the present time. IMPRESSION: 1. Sepsis syndrome. 2. Bilateral cellulitis. 3. Chronic obstructive pulmonary disease. 4. Asthma. 5. Anemia. 6. Cardiac arrhythmias. 7. Positive troponin, rule out myocardial infarction. PLAN: The patient appears very comfortable this morning. She is not short of breath at rest. She does state to feeling much better overall. I did discuss the case with the night nurse at length. The night nurse stated that the patient had an uneventful night. On physical exam, her bronchospasm has resolved. In addition, the oxygen saturation on nasal cannula is 100%. I will continue with the current nebulizer treatments and inhaled steroids for now. Inputs by Cardiology, Renal and Infectious Disease are also noted. Clinical status of the patient is significantly improved overall. However, again, unfortunately, the future status/prognosis for this chronically ill patient remains very guarded at best. I will discuss the above with the entire ICU team in the next few moments. I will also discuss the above with Dr. Mann later this morning. Ke Farooq MD MTDVivien
[2018-06-20] MEDS: Insulin Reg-MEDIUM-Coverage SC SCH ×4 (07:55→22:23)
[2018-06-20] MEDS: Multivitamin Vitamin B Complex (Nephro-Vite) Tab PO SCH (07:59)
[2018-06-20] MEDS: Budesonide 0.5 mg/2 ml Inhal Susp UD IH SCH ×2 (08:11→20:54)
--- NOTE | 2018-06-20 08:21 | PN ---
DATE: 06/20/2018 CARDIOLOGY FOLLOWUP SUBJECTIVE: The patient is without shortness of breath. PHYSICAL EXAMINATION: VITAL SIGNS: Blood pressure is 90 systolic, heart rate is in the 80s, atrial fibrillation. NECK: Negative JVD. LUNGS: Decreased breath sounds bilaterally. HEART: Reveals S1 and S2. EXTREMITIES: Decreasing, but chronic edema. LABORATORY DATA: Laboratories were not done today. IMPRESSION: 1. Severe pulmonary hypertension. 2. Chronic obstructive pulmonary disease. 3. Sepsis. 4. Morbid obesity. 5. Atrial fibrillation. PLAN: Given these findings, the patient is having her Coumadin adjusted. The patient will need long-term anticoagulation. Ryan Turk MD
[2018-06-20] MEDS: diltiaZEM 120 mg/24 Hours CD Cap PO SCH (09:29)
[2018-06-20] MEDS: Fluticasone Nasal 50 mcg/Spray NS SCH (09:31)
[2018-06-20] MEDS: Silver Sulfadiazine 1% Cream (400 gm) TOP SCH ×2 (09:31→11:37)
[2018-06-20] MEDS: Clotrimazole 1% Cream(30 gm) TOP SCH ×2 (09:31→17:18)
[2018-06-20] MEDS: POLYETHYLENE GLYCOL 3350 17 GM/Dose PACKET PO SCH (09:40)
--- NOTE | 2018-06-20 11:51 | CP.PCM.PN ---
Subjective - Date & Time of Evaluation Date of Evaluation: 06/19/18 Time of Evaluation: 08:55 - Subjective Subjective: Comfortable in bed, feeling better today, no fevers. Objective - Vital Signs/Intake and Output Vital Signs (last 24 hours): Temp Pulse Resp BP Pulse Ox 97.5 F L 79 58 H 106/45 L 83 L 06/18/18 04:00 06/18/18 06:11 06/18/18 06:11 06/18/18 06:11 06/18/18 06:11 Intake and Output: 06/18/18 06/18/18 06:59 18:59 Intake Total 360 Output Total 300 Balance 60 - Medications Medications: Current Medications Benzocaine/Menthol (Cepacol Sore Throat) 1 rosa MT Q2H PRN PRN Reason: Sore Throat Last Admin: 06/16/18 09:49 Dose: 1 rosa Budesonide (Pulmicort Respules) 0.5 mg IH [id number] [facility] Last Admin: 06/18/18 08:44 Dose: 0.5 mg Clotrimazole (Lotrimin 1%) 1 gm TOP BID [facility] Last Admin: 06/18/18 10:03 Dose: 1 applic Cyproheptadine HCl (Periactin) 4 mg PO DAILY [facility] Last Admin: 06/18/18 09:58 Dose: 4 mg Diltiazem HCl (Cardizem Cd) 120 mg PO DAILY [facility] Famotidine (Pepcid) 40 mg PO 1000,2200 [facility] Last Admin: 06/18/18 09:58 Dose: 40 mg Ferrous Gluconate (Fergon) 324 mg PO TID [facility] Fluticasone Propionate (Flonase) 1 actuation NS DAILY [facility] Last Admin: 06/18/18 10:07 Dose: 1 spray Hydrocortisone Sodium Succinate (Solu-Cortef) 50 mg IVP Q12 [facility] Last Admin: 06/18/18 09:59 Dose: 50 mg Insulin Human Regular (Humulin R Med) 0 units SC ACHS [facility]; Protocol Last Admin: 06/18/18 14:01 Dose: Not Given Metformin HCl (Glucophage) 1,000 mg PO BID [facility] Last Admin: 06/18/18 09:59 Dose: 1,000 mg Midodrine (Proamatine) 5 mg PO TID [facility] Last Admin: 06/18/18 15:30 Dose: 5 mg Polyethylene Glycol (Miralax) 17 gm PO DAILY [facility] Last Admin: 06/18/18 10:00 Dose: 17 gm Silver Sulfadiazine (Silvadene 1% 25 Gm) 0 gm TP Q12H [facility] Last Admin: 06/18/18 10:02 Dose: 25 gm Vitamin B Complex/Vit C/Folic Acid (Nephro-Miguelito) 1 tab PO 0800 [facility] - Labs Labs: 06/18/18 06:15 06/18/18 06:15 PT 42.2 SECONDS (9.4-12.5) H 06/18/18 06:15 INR 3.58 H* 06/18/18 06:15 APTT 36.2 Seconds (25.1-36.5) 06/01/18 15:10 - Constitutional Appears: Non-toxic, Chronically Ill - Head Exam Head Exam: NORMAL INSPECTION - Respiratory Exam Respiratory Exam: Decreased Breath Sounds - Cardiovascular Exam Cardiovascular Exam: +S1, +S2 - GI/Abdominal Exam GI & Abdominal Exam: Soft. absent: Tenderness Assessment and Plan - Assessment and Plan (Free Text) Plan: Assessment Pseudomonas bilateral infected wound on lower extremities, S/P treatment with 16 days of antibiotics history of right thigh wound infection with ESBL-producing E. coli history of urinary tract infection COPD CHF morbid obesity with BMI 70 history of right leg surgery and breast surgery chronic ulcers on the lower extremities Plan completed 16 days of Merrem - continue local wound care by surgery continue to monitor off antibiotics discussed with Dr. Mann patient to be discharged today
--- NOTE | 2018-06-20 14:03 | CP.PCM.PN ---
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 Maintain hemodynamics stable. Avoid hypotension. Patient not on ACEI/ARB due to recent CRIS and low BP. pt on midodrine. also on rate control CCB. Monitor Input/Output, daily weights and renal function with basic metabolic monitoring specialist dig level started iron and MVI and weekly Vit D Check urine analysis, spot protein/creatinine, albumin/creatinine ratio, urine Na/Cr Anemia work up with TSAT/Ferritin/Vitamin B12/folate, serum protein electrophoresis with immunofixation, serum free light chain assay ([place]/Lambda) Check for 25-OH vitamin D, iPTH, phosphorus level. Dose meds/antibiotics for reduced GFR. Avoid fleets enema/magnesium based laxatives. Avoid nephrotoxins/NSAIDs/ iodinated contrast (unless needed emergently) Glycemic control Further work up/management as per primary team pt stable for d/c from renal perspective when planned Thanks for allowing me to participate in care of your patient. Will follow patient with you. Please call if any Qs. had d/w team. 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 renal consult for CRIS evaluation. started on IVF to help with it. Denies OTC/herbal meds or NSAIDs No recent iodinated contrast exposure. Noted obvious episodes of low BP (90/30s). reports chronic legs swelling. not aware about kidney disease in past. ROS: Cardiovascular: No chest pain. Pulmonary: has chronic shortness of breath Gastrointestinal: denies abdominal pain No nausea. No vomiting. Genitourinary: No pain while urinating. Denies blood in urine. All other negative except as mentioned in HPI. has chronic legs swelling Physical Examination: General Appearance: Comfortable, in no acute respiratory distress, co-operative . obese ++ Vitals reviewed and noted as below Head; Atraumatic, normocephalic ENT: no ulcers no thrush. Tongue is midline. Oropharynx: no rash or ulcers. EYES: Pupils are equal, round and reactive to light accommodation. Eye muscles and extraocular movement intact. Sclera is anicteric. Neck; supple no lymphadenopathy, no thyromegaly or bruit Lungs: Normal respiratory rate/effort. Breath sounds bilateral equal and decreased at bases Heart: Normal rate. s1s2 normal. No rub or gallop. Extremities: 3+ edema. No varicose veins Neurological: Patient is alert, awake and oriented to person, place and time. No focal deficit. Strength bilateral appropriate and equal Skin: Warm and dry. Normal turgor. No rash. Palpitation: Normal elasticity for age Abdomen: Abdomen is soft. Bowel sounds +. There is no abdominal tenderness, no guarding/rigidity no organomegaly Psych: normal insight and normal affect/mood MSK: no joint tenderness or swelling. Digits and nails normal, no deformity : kidney or bladder not palpable Labs/imaging reviewed. Past medical history, past surgical history, family history, social history, allergy reviewed and noted as below Family hx: no hx of CKD. Rest non-contributory Echo; normal lvef, severe MR/TR/MO renal imaging: left kidney cyst CXR congestion Objective - Vital Signs/Intake and Output Vital Signs (last 24 hours): Temp Pulse Resp BP Pulse Ox 98.8 F 89 73 H 101/42 L 100 06/19/18 20:00 06/20/18 08:17 06/20/18 08:17 06/20/18 08:17 06/19/18 17:24 Intake and Output: 06/20/18 06/20/18 06:59 18:59 Intake Total 250 Output Total 400 Balance -150 - Medications Medications: Current Medications Benzocaine/Menthol (Cepacol Sore Throat) 1 rosa MT Q2H PRN PRN Reason: Sore Throat Last Admin: 06/16/18 09:49 Dose: 1 rosa Budesonide (Pulmicort Respules) 0.5 mg IH [id number] [facility] Last Admin: 06/20/18 08:11 Dose: 0.5 mg Clotrimazole (Lotrimin 1%) 1 gm TOP BID [facility] Last Admin: 06/20/18 09:31 Dose: 1 applic Cyproheptadine HCl (Periactin) 4 mg PO DAILY [facility] Last Admin: 06/20/18 09:40 Dose: 4 mg Diltiazem HCl (Cardizem Cd) 120 mg PO DAILY [facility] Last Admin: 06/20/18 09:29 Dose: Not Given Ergocalciferol (Drisdol 50,000 Intl Units Cap) 1 cap PO Q7D [facility] Last Admin: 06/19/18 12:54 Dose: 1 cap Famotidine (Pepcid) 40 mg PO 1000,2200 [facility] Last Admin: 06/20/18 09:40 Dose: 40 mg Ferrous Gluconate (Fergon) 324 mg PO TID [facility] Last Admin: 06/20/18 13:42 Dose: 324 mg Fluticasone Propionate (Flonase) 1 actuation NS DAILY [facility] Last Admin: 06/20/18 09:31 Dose: 1 spray Insulin Human Regular (Humulin R Med) 0 units SC [facility]; Protocol Last Admin: 06/20/18 11:36 Dose: Not Given Levalbuterol HCl (Xopenex) 1.25 mg IH [id number] [facility] Last Admin: 06/20/18 13:07 Dose: Not Given Metformin HCl (Glucophage) 1,000 mg PO BID [facility] Last Admin: 06/20/18 09:40 Dose: 1,000 mg Midodrine (Proamatine) 5 mg PO TID [facility] Last Admin: 06/20/18 13:42 Dose: 5 mg Polyethylene Glycol (Miralax) 17 gm PO DAILY [facility] Last Admin: 06/20/18 09:40 Dose: 17 gm Silver Sulfadiazine (Silvadene 1%) 0 ea TOP Q12H [facility] Last Admin: 06/20/18 11:37 Dose: 1 applic Vitamin B Complex/Vit C/Folic Acid (Nephro-Miguelito) 1 tab PO 0800 [facility] Last Admin: 06/20/18 07:59 Dose: 1 tab - Labs Labs: 06/19/18 06:00 06/19/18 06:00 PT 40.4 SECONDS (9.4-12.5) H 06/19/18 06:00 INR 3.43 06/19/18 06:00 APTT 36.2 Seconds (25.1-36.5) 06/01/18 15:10
[2018-06-21] MEDS ORDERED: Silver Sulfadiazine 1% Cream (25 gm) TP SCH (00:51)
--- NOTE | 2018-06-21 02:44 | DS ---
HISTORY OF PRESENT ILLNESS: She is in the Intensive Care Unit. I discharged her yesterday with she is needed to arrange it and the ambulance had to get a bigger ambulance, a larger gurney and more people to help us to transfer her home, so she will be discharge today, I will be seeing her on house-call tomorrow. MEDICATIONS: She is on Cardizem, Cepacol, Drisdol, Fergon, Flonase, Glucophage, Lotrimin cream, MiraLax, Nephro-adonis, Pepcid, Periactin, ProAmatine, Pulmicort, Silvadene and Xopenex. PHYSICAL EXAMINATION: GENERAL: She is more alert. VITAL SIGNS: She has a 98.8 temp, 98 pulse, and 26 respiratory rate. HEENT: Head is atraumatic and normocephalic. HEART: Regular rate. LUNGS: Decreased breath sounds, but clear. ABDOMEN: Morbidly, morbidly, morbidly obese, soft and nontender. Positive bowel sounds. EXTREMITIES: Still with lymphedema, 10/4 pitting edema and bilateral thighs have ulcers that are slowly healing. LABORATORY DATA: She had last blood test, she has 10.5 white count that was yesterday, 8.7 hemoglobin, 27.6 hematocrit with 405,000 platelets. She had a 137 sodium, potassium 4.8, BUN 30, creatinine 1.3 and sugar is 145. ASSESSMENT AND PLAN: Overall, she would be discharge today with transportation. She was seen by Cardiopulmonary, Renal, Infectious Disease and Surgery. I will be doing a house-call on her tomorrow. She had multiple issues, severe sepsis; morbid obesity; low blood pressure. She had digoxin toxic. I will be putting her on Coumadin at home and she will get an INR before I start INR was above 3. Alan Mann DO MTDD
[2018-06-21] MEDS: Levalbuterol 1.25 MG/3 ML Inhal Soln UD IH SCH ×3 (02:51→13:04)
[2018-06-21 06:20] VITALS: RESP 15
[2018-06-21 06:21] VITALS: TEMP 98.5; O2SAT 98
--- NOTE | 2018-06-21 07:05 | PN ---
DATE: 06/21/2018 PULMONARY NOTE SUBJECTIVE: The patient appears very comfortable this morning. She is not short of breath at rest. PHYSICAL EXAMINATION: VITAL SIGNS: Temperature is 98.5, pulse on the monitor is 88, respiratory rate 15, blood pressure 95/45. Oxygen saturation on nasal cannula is 98%. HEENT: Normocephalic, atraumatic. No JVD. CARDIOVASCULAR: Systolic ejection murmur at the lower left sternal border. No S3 gallop. LUNGS: Decreased breath sounds at the bases. Otherwise clear. EXTREMITIES: Less edema. No cyanosis, no clubbing. Calves are nontender to palpation. GASTROINTESTINAL: Abdomen is soft, nontender, and nondistended. Bowel sounds are positive. SKIN: Bilateral lower extremity cellulitis - improving. NEUROLOGIC: Limited at the present time. IMPRESSION: 1. Sepsis syndrome. 2. Bilateral cellulitis. 3. Chronic obstructive pulmonary disease. 4. Asthma. 5. Anemia. 6. Cardiac arrhythmias. 7. Positive troponin, rule out myocardial infarction. PLAN: The patient appears very comfortable this morning. She is not short of breath at rest. She does state to feeling much, much better overall. I did discuss the case with the night nurse at length. The night nurse stated that the patient had a good night. On physical exam, her bronchospasm has resolved. In addition, the oxygen saturation on nasal cannula is 98%. I will continue with the current nebulizer treatments and inhaled steroids for now. Inputs by Cardiology, Infectious Disease, and Renal are also noted. Clinical status of the patient is significantly improved overall. However, again, the future status/prognosis for this chronically ill patient remains very guarded at best. The patient is for discharge in the near future. I will discuss the above with the entire ICU team in the next few moments. I will also discuss the above with Dr. Mann later this morning. Ke Farooq MD ANUP
[2018-06-21] MEDS: Budesonide 0.5 mg/2 ml Inhal Susp UD IH SCH (07:22)
[2018-06-21] MEDS: Insulin Reg-MEDIUM-Coverage SC SCH (07:30)
[2018-06-21] MEDS: POLYETHYLENE GLYCOL 3350 17 GM/Dose PACKET PO SCH (09:52)
[2018-06-21] MEDS: Multivitamin Vitamin B Complex (Nephro-Vite) Tab PO SCH (09:52)
[2018-06-21] MEDS: diltiaZEM 120 mg/24 Hours CD Cap PO SCH (10:00)
--- NOTE | 2018-06-21 10:11 | DS ---
There is third time in row I am discharging her. We are having a problem with ambulance and getting her home because she is over 500 pounds and the need to have a certain ambulance, a stretcher and a number of men to pick her up and move her back to her house. So, hopefully we got it arranged for today and she will go home. She is doing much better, feeling much better, eating better, overall improved. PHYSICAL EXAMINATION: VITAL SIGNS: Temperature 98.5, 95 pulse, 95/45 blood pressure, 15 respiratory rate, 98% O2 sat on nasal cannula. HEENT: Head is atraumatic, normocephalic. HEART: Regular rate. LUNGS: Decreased breath sounds but clear. ABDOMEN: Soft. Morbidly, morbidly, morbidly obese. EXTREMITIES: Have 10/4 pitting edema with lymphedema and bilateral thighs have oozing, but they are improved from ulcers. It is best she has been in a long time. LABORATORY DATA: She has a 10.5 white count, with 405,000 platelets. Last blood sugar was 100. She will be going home today, that is the plan. She will be seen on a house call, hopefully by Monday of next week and they know to call me if anything else changes, having other issues, they have enough medicines at home. They know to call me if there is a problem. She had multiple issues while she was here in the hospital for severe sepsis to an CA to digitoxicity to low blood pressure, diabetes, morbidly obese. Alan Mann DO MTDVivien
[2018-06-21] MEDS: Fluticasone Nasal 50 mcg/Spray NS SCH (11:14)
[2018-06-21] MEDS: Clotrimazole 1% Cream(30 gm) TOP SCH (11:15)
[2018-06-21 11:16] VITALS: BP 91/50; PULSE 80
--- NOTE | 2018-06-21 11:40 | PN ---
CARDIOLOGY FOLLOWUP DATE: 06/21/2018 SUBJECTIVE: The patient is without new complaints. PHYSICAL EXAMINATION: VITAL SIGNS: Blood pressure is 95/45, heart rate is atrial fibrillation in 90s. NECK: Negative JVD. LUNGS: Decreased breath sounds. HEART: S1 and S2. EXTREMITIES: Chronic edema. LABORATORY DATA: His hemoglobin is 8.7. Glucose is 100 today. IMPRESSION: 1. Sepsis which is resolved. 2. Severe pulmonary hypertension. 3. Atrial fibrillation treated with anticoagulation. 4. Morbid obesity. 5. Chronic pedal edema. 6. Normal left ventricular function. PLAN: Given these findings, the patient is at her best. She is being transferred back home today. Ryan Turk MD
[2018-06-22 06:23] LABS: ALBUMIN (PEP) 2.1 g/dL (3.8-4.8); ALPHA-1-GLOBULIN (PEP) 0.5 g/dL (0.2-0.3)
== END 2018-06-21 14:26 | disposition home or self-care (01) | DRG 871 ==
LOC: ED 14:09 → ERH 17:31 → CCU 21:05
PROVIDERS: ADMIT Family Medicine; ATTEND Family Medicine
PROC: 05HM33Z Insertion of Infusion Device into Right Internal Jugular Vein, Percutaneous Approach (ICD-10-PCS; principal; 2018-06-01)
PROC: B543ZZA Ultrasonography of Right Jugular Veins, Guidance (ICD-10-PCS; 2018-06-01)
PROC: 3E043XZ Introduction of Vasopressor into Central Vein, Percutaneous Approach (ICD-10-PCS; 2018-06-01)
PROC: 02HV33Z Insertion of Infusion Device into Superior Vena Cava, Percutaneous Approach (ICD-10-PCS; 2018-06-07)
PROC: B54MZZA Ultrasonography of Right Upper Extremity Veins, Guidance (ICD-10-PCS; 2018-06-07)
PROC: 0HBRXZZ Excision of Toe Nail, External Approach (ICD-10-PCS; 2018-06-08)
DX: A41.9 Sepsis, unspecified organism (principal); R65.21 Severe sepsis with septic shock; J18.9 Pneumonia, unspecified organism; I21.4 Non-ST elevation (NSTEMI) myocardial infarction; L03.116 Cellulitis of left lower limb; L03.115 Cellulitis of right lower limb; J44.1 Chronic obstructive pulmonary disease with (acute) exacerbation; J44.0 Chronic obstructive pulmonary disease with (acute) lower respiratory infection; B37.0 Candidal stomatitis; I50.30 Unspecified diastolic (congestive) heart failure; L97.129 Non-pressure chronic ulcer of left thigh with unspecified severity; L97.119 Non-pressure chronic ulcer of right thigh with unspecified severity; N17.9 Acute kidney failure, unspecified; Z68.45 Body mass index [BMI] 70 or greater, adult; I48.2 Chronic atrial fibrillation; I11.0 Hypertensive heart disease with heart failure; I50.810 Right heart failure, unspecified; E11.51 Type 2 diabetes mellitus with diabetic peripheral angiopathy without gangrene; E11.622 Type 2 diabetes mellitus with other skin ulcer; E03.9 Hypothyroidism, unspecified; E66.01 Morbid (severe) obesity due to excess calories; I34.0 Nonrheumatic mitral (valve) insufficiency; I27.29 Other secondary pulmonary hypertension; I89.0 Lymphedema, not elsewhere classified; D64.9 Anemia, unspecified; I49.9 Cardiac arrhythmia, unspecified; B35.1 Tinea unguium; E87.6 Hypokalemia; I25.10 Atherosclerotic heart disease of native coronary artery without angina pectoris; N28.1 Cyst of kidney, acquired; I27.81 Cor pulmonale (chronic); R11.2 Nausea with vomiting, unspecified; I87.2 Venous insufficiency (chronic) (peripheral); Z79.4 Long term (current) use of insulin; Z87.440 Personal history of urinary (tract) infections; Z79.01 Long term (current) use of anticoagulants; Z74.01 Bed confinement status; Z99.81 Dependence on supplemental oxygen

== ENCOUNTER 2018-07-10 04:34 | Inpatient (IN) | payer MEDICARE ==
[2018-07-10 05:36] LABS: BASO # 0.11 K/mm3 (0.0-2.0); BASO % 0.8 % (0.0-3.0); EOS # 0.3 (0.0-0.7); GRAN # 10.03 (1.4-6.5); GRAN % 72.5 % (50.0-68.0); HEMOGLOBIN 9.4 g/dL (12.0-16.0); LYMPH # 2.2 (1.2-3.4); LYMPH % 15.5 % (22.0-35.0); MEAN CELL VOLUME 81.9 fl (80.0-105.0); MEAN CORPUSCULAR HEMOGLOBIN 25.4 pg (25.0-35.0); MEAN PLATELET VOLUME 9.4 fl (7.0-11.0); MONO # 1.3 (0.1-0.6); MONO % 9.2 % (1.0-6.0); PLATELET COUNT 553 10^3/uL (120.0-450.0); RED CELL DISTRIBUTION WIDTH 16.2 % (11.5-14.5); WHITE BLOOD COUNT 13.8 10^3/uL (4.5-11.0)
[2018-07-10 05:51] LABS: ARTERIAL BLOOD GAS HCO3 20.1 mmol/L (21-28); ARTERIAL BLOOD GAS HEMOGLOBIN 7.5 g/dL (11.7-17.4); ARTERIAL BLOOD GAS O2 CAPACITY 10.7 mL/dl (16-24); ARTERIAL BLOOD GAS O2 CONTENT 10.7 ML/dl (15-23); ARTERIAL BLOOD GAS O2 SAT 99.9 % (95-98); ARTERIAL BLOOD GAS PCO2 23 mm/Hg (35-45); ARTERIAL BLOOD GAS PH 7.55 (7.35-7.45); ARTERIAL BLOOD GAS TCO2 20.8 mmol.L (22-28)
--- NOTE | 2018-07-10 05:53 | ED PDOC ---
Arrival/HPI - General Chief Complaint: Shortness Of Breath Time Seen by Provider: 07/10/18 04:38 Historian: Patient - History of Present Illness Narrative History of Present Illness (Text): 07/10/18 05:53 73 year old female, whose past medical history includes angina, PVD, congestive heart failure, A-Fib, peripheral edema, chronic obstructive pulmonary disease, emphysema, asthma, septicemia, diabetes type 2 and morbid obesity, presents to the emergency department with chest pain and shortness of breath for the past few days. Patient informs that pain is sharp in nature with substernal localization. Patient states some of her cardiac medication had been recently discontinued. Patient denies any cough, fever, vomiting, or any other complaints. Time/Duration: < week Past Medical History - Provider Review Nursing Documentation Reviewed: Yes - Infectious Disease Hx of Infectious Diseases: None - Tetanus Immunization Tetanus Immunization: Unknown - Cardiac Hx Pacemaker: No - Pulmonary Hx Respiratory Disorders: Yes (using 02 at home/ nebulizer machine) Hx Asthma: Yes Hx Chronic Obstructive Pulmonary Disease (COPD): Yes Hx Emphysema: Yes Hx Pneumonia: Yes - Neurological Hx Neurological Disorder: No - HEENT Hx HEENT Disorder: Yes (glasses) Other/Comment: thrush to oral cavity and tongue - Renal Hx Renal Disorder: No - Endocrine/Metabolic Hx Endocrine Disorders: Yes Hx Diabetes Mellitus Type 2: Yes - Hematological/Oncological Hx Cancer: No - Integumentary Hx Dermatological Disorder: Yes (chronic venous stasis dermatitis ble) Other/Comment: pt is obese, right outer thigh skin openings healed, redness, hard brown dry skin, dimpling to left thigh, pt c/o that she, sometimes has drainage from left thigh. both lower legs and feet dry skin. redness and discoloration to right abd fold healed, pt unable to turn in bed to assess skin on back, ble +4 pitting edema redness - Musculoskeletal/Rheumatological Hx Musculoskeletal Disorders: Yes Hx Falls: No Hx Unsteady Gait: Yes (bedbound) - Gastrointestinal Hx Gastrointestinal Disorders: Yes (benign mass removed from abd 30 yrs ago) Other/Comment: morbid obesity - Genitourinary/Gynecological Hx Genitourinary Disorders: Yes Hx Incontinence: Yes (urine and stool) Hx Urinary Tract Infection: Yes - Psychiatric Hx Psychophysiologic Disorder: No Hx Substance Use: No - Surgical History Hx Mastectomy: No - Anesthesia Hx Anesthesia: Yes - Suicidal Assessment Feels Threatened In Home Enviroment: No Family/Social History - Physician Review Nursing Documentation Reviewed: Yes Family/Social History: No Known Family HX Smoking Status: Never Smoked Hx Alcohol Use: No Hx Substance Use: No Hx Substance Use Treatment: No Allergies/Home Meds Allergies/Adverse Reactions: Allergies No Known Allergies Allergy (Verified 07/10/18 04:46) Home Medications: Home Meds Medication Instructions Recorded Confirmed Warfarin [Coumadin] 3 mg PO DAILY 04/10/18 07/10/18 Albuterol/Ipratropium [Duoneb 3 3 ml IH Q6 04/25/18 07/10/18 MG/3 Ml-0.5 MG/3 Ml 3 Ml] Clotrimazole/Betamethasone 180 gm TOP BID 04/25/18 07/10/18 [Lotrisone] Fluticasone Nasal [Flonase] 1 spray MARIAM DAILY 04/25/18 07/10/18 Furosemide [Lasix] 20 mg PO BID 04/25/18 07/10/18 Insulin Detemir [Levemir] 24 unit SC HS 04/25/18 07/10/18 Levothyroxine [Synthroid] 25 mcg PO DAILY 04/25/18 07/10/18 MetFORMIN [glucoPHAGE] 1,000 mg PO BID 04/25/18 07/10/18 Silver Sulfadiazine [Silvadene] 1,600 gm TOP BID 04/25/18 07/10/18 Budesonide [Pulmicort Flexhaler] 1 puff IH QID 06/01/18 07/10/18 K Dur 20 meq PO BID 06/01/18 07/10/18 Mupirocin 2% Cream [Bactroban 30 gm EXT BID 06/01/18 07/10/18 Cream] Pantoprazole Sodium [Protonix] 40 mg PO DAILY 06/01/18 07/10/18 levoFLOXacin [Levaquin] 750 mg PO DAILY 06/01/18 07/10/18 Amoxicillin/Potassium Clav 1 tab PO BID 07/10/18 07/10/18 [Amox-Clav 875-125 mg Tablet] Cyproheptadine [Periactin] 1 tab PO DAILY 07/10/18 07/10/18 Midodrine HCl 5 mg PO TID 07/10/18 07/10/18 Review of Systems - Physician Review All systems were reviewed & negative as marked: Yes - Review of Systems Constitutional: absent: Fevers Respiratory: SOB. absent: Cough Cardiovascular: Chest Pain Gastrointestinal: absent: Vomiting Physical Exam Vital Signs Temp Pulse Resp BP Pulse Ox 07/10/18 05:31 90 18 164/90 H 98 07/10/18 05:30 98 H 18 07/10/18 05:15 140 H 07/10/18 04:59 97.9 F 137 H 18 103/51 L 07/10/18 04:50 18 Pain Distress: Mild - Systems Exam Head: Present: Atraumatic, Normocephalic Pupils: Present: PERRL Extroacular Muscles: Present: EOMI Conjunctiva: Present: Normal Mouth: Present: Moist Mucous Membranes Neck: Present: Normal Range of Motion Respiratory/Chest: Present: Clear to Auscultation, Good Air Exchange. No: Respiratory Distress, Accessory Muscle Use Cardiovascular: Present: Irregular Rhythm, Tachycardic. No: Regular Rate and Rhythm Abdomen: Present: Other (Morbidly obese). No: Tenderness, Distention, Peritoneal Signs Back: Present: Normal Inspection Upper Extremity: Present: Normal Inspection. No: Cyanosis, Edema Lower Extremity: Present: Normal Inspection. No: Edema Neurological: Present: GCS=15, CN II-XII Intact, Speech Normal Skin: Present: Warm, Dry, Normal Color. No: Rashes Psychiatric: Present: Alert, Oriented x 3, Normal Insight, Normal Concentration Medical Decision Making ED Course and Treatment: 07/10/18 05:48 Impression: 73 year old female presents with shortness of breath and chest pain Plan: -- Labs -- EKG -- Chest X-ray -- Cardizem -- O2 therapy -- Influenza A B test -- Reassess and disposition Prior Visits: Notes and results from previous visits were reviewed. Progress Notes: 07/10/18 05:59 EKG reviewed by me, shows: Rapid A-fib @132bpm Irregularly Irregular rhythm 07/10/18 06:[address] Mann. Patient to be placed on cardizem drip and IV lasix given. Patient to be admitted to telemetry. Dr. Turk consult ordered. - Lab Interpretations Lab Results: 07/10/18 05:20 Lab Results 07/10/18 05:20: WBC 13.8 H D, RBC 3.70, Hgb 9.4 L, Hct 30.3 L, MCV 81.9, MCH 25.4, MCHC 31.0, RDW 16.2 H, Plt Count 553 H, MPV 9.4, Gran % 72.5 H, Lymph % (Auto) 15.5 L, [place] % (Auto) 9.2 H, Eos % (Auto) 2.0, Baso % (Auto) 0.8, Gran # 10.03 H, Lymph # (Auto) 2.2, [place] # (Auto) 1.3 H, Eos # (Auto) 0.3, Baso # (Auto) 0.11 - RAD Interpretation Radiology Orders: 07/10/18 04:47 CHEST PORTABLE [RAD] Stat - Medication Orders Current Medication Orders: Discontinued Medications Diltiazem HCl (Cardizem) 20 mg IVP STAT STA Stop: 07/10/18 05:10 Last Admin: 07/10/18 05:15 Dose: 20 mg IVP Administration Document 07/10/18 05:15 (Rec: 07/10/18 05:34 [id number]) Charges for Administration # of IVP Administrations 1 OCT Pulse and Blood Pressure Document 07/10/18 05:15 (Rec: 07/10/18 05:34 [id number]) Pulse Pulse Rate (60-90) 140 - Scribe Statement The provider has reviewed the documentation as recorded by the Marieibjuan Marks Provider Scribe Attestation: All medical record entries made by the Scribe were at my direction and personally dictated by me. I have reviewed the chart and agree that the record accurately reflects my personal performance of the history, physical exam, medical decision making, and the department course for this patient. I have also personally directed, reviewed, and agree with the discharge instructions and disposition. Disposition/Present on Arrival - Present on Arrival Any Indicators Present on Arrival: No History of DVT/PE: No History of Uncontrolled Diabetes: Yes Urinary Catheter: No History of Decub. Ulcer: No History Surgical Site Infection Following: None - Disposition Have Diagnosis and Disposition been Completed?: Yes Diagnosis: Rapid atrial fibrillation, Congestive heart failure Disposition: HOSPITALIZED Disposition Time: 06:30 Patient Plan: Admission Condition: FAIR Discharge Instructions (ExitCare): Heart Failure (ED) Referrals: Alan Mann, [Primary Care Provider] - Follow up with primary Forms: [employer] (Chinese)
[2018-07-10 06:01] LABS: TROPONIN I 0.02 ng/mL
[2018-07-10 06:27] LABS: ALB/GLOB RATIO 0.7 (1.1-1.8); ALBUMIN 2.6 g/dL (3.0-4.8); CALCIUM 8.6 mg/dL (8.4-10.5)
[2018-07-10] MEDS ORDERED: diltiaZEM IVPB 100mg in NS 100 ML IV PRN (06:38)
[2018-07-10 06:47] LABS: BAND 3 % (0-2); BASOPHIL 2 % (0.0-1.0); EOSINOPHIL 2 % (0.0-3.0); LYMPHOCYTE 20 % (22.0-35.0); METAMYELOCYTE 2 %; MONOCYTE 8 % (1.0-6.0); MYELOCYTE 6 %; NEUTROPHIL 57 % (50.0-70.0); PLATELET ESTIMATE HIGH (NORMAL)
[2018-07-10 06:53] LABS: LARGE PLATELETS PRESENT
[2018-07-10 06:54] LABS: POIKILOCYTOSIS SLIGHT
[2018-07-10] MEDS ORDERED: Digoxin 500 mcg/2ml (0.5 mg/2ml) Inj IVP STA (09:23)
[2018-07-10] MEDS ORDERED: Cefepime 1gm in NS 100ml 1 GM/100 ML BAG IVPB SCH (09:30)
--- NOTE | 2018-07-10 10:00 | HP ---
DATE OF EXAM: 07/10/2018 HISTORY OF PRESENT ILLNESS: She is a nice 73-year-old female who I do house calls on. She has been morbidly, morbidly, morbidly obese most of her life. She was over 700 pounds, now I think she is 500 or may be less right now. She has stopped eating for the past month or so, drastic weight loss, I am very worried about her cancer that we are not finding. I discussed that with her and her . She is now back for elevated heart rate, feeling very sluggish, lethargic. She looks horrible, facial features very drawn. She is a 73-year-old -[place] female who presents with chest pain, shortness of breath few days, sharp in nature, substernal, palpitations. PAST MEDICAL HISTORY: She has a past medical history of angina, PVD, congestive heart failure, AFib, peripheral edema, chronic obstructive pulmonary disease, emphysema, asthma, septicemia, diabetes type 2, morbidly obese bedridden for many years. She has a home nebulizer treatment for asthma, COPD, emphysema, pneumonia. She wears glasses. Thrush to the tongue and oral cavity in the past, chronic venous stasis dermatitis of both lower extremities, morbidly obese bilateral outer thigh ulcers with drainage sometimes improving with weight loss. She is completely bed bound. She had a benign mass removed from her abdomen 30 years ago. She has had blood in the stool and urine in the past, urinary tract infections in the past. FAMILY HISTORY: Unknown family history. SOCIAL HISTORY: No smoker. No drinking. No drugs. ALLERGIES: NO KNOWN DRUG ALLERGIES. MEDICATIONS: She is on Coumadin, DuoNebs, Lotrisone cream, Flonase, Lasix, Levemir, Synthroid, Glucophage, Silvadene cream, Pulmicort, potassium, Protonix, Levaquin, amoxicillin, clavulanic acid, Periactin, midodrine. She used to be on Cardizem which was changed and also digoxin when she was digitoxic. She has no acute vision or hearing changes, very lethargic, very weak. No sore throat. There is chest palpitations. She had chest pain. There was shortness of breath. No abdominal pain, nausea, vomiting, constipation, diarrhea, absolutely no appetite at all. No nausea, vomiting, constipation, diarrhea, just no appetite, bed-bound, very weak. PHYSICAL EXAMINATION: VITAL SIGNS: Temperature 97.9, 137 pulse, 140 pulse, 18 respiratory rate, 103/51 blood pressure, 98% O2 sat. HEENT: Head is atraumatic, normocephalic, very lethargic looking, extraocular muscles are intact. Pupils are reactive to light. Throat is dry. NECK: Supple. LUNGS: Decreased breath sounds bilaterally, poor inspiration. HEART: Irregular rhythm, irregular rate. ABDOMEN: Morbidly, morbidly obese, nontender. Positive bowel sounds. No guarding, no rebound, no CVA tenderness. She is still about 450-500 pounds. EXTREMITIES: +4/4 pitting edema with lymphedema. GCS is 15. NEUROLOGIC: Cranial nerves II-XII grossly intact. Speech is normal, just lethargic. SKIN: Warm and dry. Ulcers to bilateral thighs, which was slowly healing. NEUROLOGIC: Alert and oriented x3. LYMPHS: Thyroid midline. No palpable appreciable lymphadenopathy. LABORATORY DATA: She had multiple tests that were done. She has a influenza, which was negative. She has 137 sodium, 4.5 potassium, BUN 42, creatinine 2.5, GFR is 19, sugar is 95, calcium is 8.6, magnesium is 2, total bili is 0.6, AST is 16, ALT is 19, alk phos 160. Lactate dehydrogenase is 399. Total creatine kinase is 20. Troponin I 0.02. BNP is very high at 67 at this time. We will give her some Lasix IV. Total protein is 6.3. Albumin is 2.6. Blood gases 7.55 pH. She has a 13.8 white count which is elevated, hemoglobin 9.4, hematocrit 30.3, platelets of 553,000. ALLERGIES: SHE HAS NO KNOWN DRUG ALLERGIES. Chest x-ray is pending. EKG is pending. She will have consults with Cardio, Infectious Disease, GI. She will be in Intensive Care Unit. She is currently on Cardizem drip. She will be put back on warfarin, she had Lasix 40 IV. Checking the levels. She is going to Intensive Care Unit. She had tachycardia, weight loss, obesity, infection, renal insufficiency, CHF, morbidly obese, and weight loss. Alan Mann DO
[2018-07-10 10:24] LABS: INR 8.09; PROTHROMBIN TIME 97.1 SECONDS (9.4-12.5)
--- NOTE | 2018-07-10 10:33 | RAD ---
Date of service: 07/10/2018 HISTORY: r/o infiltrate COMPARISON: No prior. FINDINGS: LUNGS: Borderline infiltrate right suprahilar space with remaining lung moreau clear. PLEURA: No significant pleural effusion identified, no pneumothorax apparent. CARDIOVASCULAR: No aortic atherosclerotic calcification present. Normal cardiac size. No pulmonary vascular congestion. OSSEOUS STRUCTURES: No significant abnormalities. VISUALIZED UPPER ABDOMEN: Normal. OTHER FINDINGS: None. IMPRESSION: Borderline patchy infiltrate right suprahilar space. Remaining lung moreau clear. Clinically correlate. No acute cardiovascular changes in the interval.
--- NOTE | 2018-07-10 11:25 | CP.PCM.CON ---
<Lena Johnson - Last Filed: 07/10/18 11:47> History of Present Illness - History of Present Illness History of Present Illness: Gastroenterology Fellow/PGY6 Consult Note 73 year old female with PMH of morbid obesity, Afib on Coumadin, severe pulmonary HTN, COPD, PVD, and chronic lymphedema presenting with shortness of breath and chest pain. Multiple admissions since March 2018, most recent being June 21/2018 for severe sepsis due to HCAP, COPD exacerbation, and Pseudomonas/ESBL lower extremities wound infections requiring prolonged antibiotic courses. At present, patient notes shortness of breath, dry cough with congestion, and reproducible chest pain on examination. Admits to associated acid reflux, heartburn, and globus sensation to solids for three days that is relieved with two sips of clear liquid- usually reza theo or seltzer water. Admits to unintentional weight loss that she relates to loss of appetite due to nausea and acid reflux. Denies nausea, vomiting, odynophagia, hematemesis, abdominal pain, diarrhea, hematochezia, or melena. Admits to formed to soft stools every two to three days. GI consultation in May for indigestion evaluated to be related to antibiotics with H2 cj/anti- emetics/bowel regimen prescribed. Patient with similar symptoms as well in 2014 of dysphagia to solids for three days with resolution to conservative interventions. Endorses prior EGD and colonoscopy over ten years ago believed to be normal. Family History- denies stomach cancer, colon cancer Social History- denies tobacco, alcohol, or illicit drug use Surgical History- upper abdominal mass removal, Breast surgery, right leg surgery Review of Systems - Review of Systems Review of Systems: 12-point review of systems negative except for as above Past Patient History - Infectious Disease Hx of Infectious Diseases: None - Tetanus Immunizations Tetanus Immunization: Unknown - Past Social History Smoking Status: Never Smoked - CARDIAC Hx Pacemaker: No - PULMONARY Hx Respiratory Disorders: Yes (using 02 at home/ nebulizer machine) Hx Asthma: Yes Hx Chronic Obstructive Pulmonary Disease (COPD): Yes Hx Emphysema: Yes Hx Pneumonia: Yes - NEUROLOGICAL Hx Neurological Disorder: No - HEENT Hx HEENT Problems: Yes (glasses) Other/Comment: thrush to oral cavity and tongue - RENAL Hx Chronic Kidney Disease: No - ENDOCRINE/METABOLIC Hx Endocrine Disorders: Yes Hx Diabetes Mellitus Type 2: Yes - HEMATOLOGICAL/ONCOLOGICAL Hx Cancer: No - INTEGUMENTARY Hx Dermatological Problems: Yes (chronic venous stasis dermatitis ble) Other/Comment: pt is obese, right outer thigh skin openings healed, redness, hard brown dry skin, dimpling to left thigh, pt c/o that she, sometimes has drainage from left thigh. both lower legs and feet dry skin. redness and discoloration to right abd fold healed, pt unable to turn in bed to assess skin on back, ble +4 pitting edema redness - MUSCULOSKELETAL/RHEUMATOLOGICAL Hx Musculoskeletal Disorders: Yes Hx Falls: No Hx Unsteady Gait: Yes (bedbound) - GASTROINTESTINAL Hx Gastrointestinal Disorders: Yes (benign mass removed from abd 30 yrs ago) Other/Comment: morbid obesity - GENITOURINARY/GYNECOLOGICAL Hx Genitourinary Disorders: Yes Hx Incontinence: Yes (urine and stool) Hx Urinary Tract Infection: Yes - PSYCHIATRIC Hx Psychophysiologic Disorder: No Hx Substance Use: No - SURGICAL HISTORY Hx Mastectomy: No - ANESTHESIA Hx Anesthesia: Yes Meds Allergies/Adverse Reactions: Allergies Allergy/AdvReac Type Severity Reaction Status Date / Time No Known Allergies Allergy Verified 07/10/18 04:46 - Medications Medications: Current Medications Albuterol/Ipratropium (Duoneb 3 Mg/0.5 Mg (3 Ml) Ud) 3 ml IH Q6 RONI Fluticasone Propionate (Flonase) 1 actuation MARIAM DAILY RONI Vasopressin 20 units/ Sodium (Chloride) 101 mls @ 9.09 mls/hr IV .Q11H7M RONI; Protocol Cefepime HCl (Maxipime 1gm) 1 gm in 100 mls @ 100 mls/hr IVPB Q12 RONI; Protocol Doxycycline Hyclate 100 mg/ (Sodium Chloride) 100 mls @ 100 mls/hr IVPB Q12 RONI; Protocol Levothyroxine Sodium (Synthroid) 25 mcg PO DAILY RONI Pantoprazole Sodium (Protonix Ec Tab) 40 mg PO DAILY RONI Warfarin Sodium (Coumadin) 3 mg PO DAILY RONI; Protocol Physical Exam - Constitutional Appears: Non-toxic, No Acute Distress - Head Exam Head Exam: ATRAUMATIC, NORMOCEPHALIC - Eye Exam Eye Exam: EOMI, PERRL. absent: Scleral icterus Pupil Exam: PERRL. absent: Miosis, Mydriatic - ENT Exam ENT Exam: Mucous Membranes Moist, Normal Oropharynx - Neck Exam Neck exam: Positive for: Full Rom, Normal Inspection - Respiratory Exam Respiratory Exam: Clear to Auscultation Bilateral. absent: Rales, Rhonchi, Wheezes - Cardiovascular Exam Cardiovascular Exam: RRR, +S1, +S2. absent: Gallop, Rubs - GI/Abdominal Exam GI & Abdominal Exam: Normal Bowel Sounds, Soft. absent: Distended, Firm, Guarding, Organomegaly, Rebound, Rigid, Tenderness - Extremities Exam Additional comments: lymphedema - Neurological Exam Neurological exam: Alert - Psychiatric Exam Psychiatric exam: Normal Affect, Normal Mood - Skin Skin Exam: Dry, Intact, Normal Color, Warm Results - Vital Signs Recent Vital Signs: Last Vital Signs Temp 97.9 F 07/10/18 04:59 Pulse 122 H 07/10/18 07:51 Resp 15 07/10/18 07:51 BP 84/39 L 07/10/18 07:51 Pulse Ox 100 07/10/18 07:51 - Labs Result Diagrams: 07/10/18 05:20 07/10/18 05:20 Labs: Laboratory Results - last 24 hr 07/10/18 07/10/18 07/10/18 05:20 05:20 05:25 WBC 13.8 H D RBC 3.70 Hgb 9.4 L Hct 30.3 L MCV 81.9 MCH 25.4 MCHC 31.0 RDW 16.2 H Plt Count 553 H MPV 9.4 Gran % 72.5 H Lymph % (Auto) 15.5 L Tift % (Auto) 9.2 H Eos % (Auto) 2.0 Baso % (Auto) 0.8 Gran # 10.03 H Lymph # (Auto) 2.2 Tift # (Auto) 1.3 H Eos # (Auto) 0.3 Baso # (Auto) 0.11 Neutrophils % (Manual) 57 Band Neutrophils % 3 H Lymphocytes % (Manual) 20 L Monocytes % (Manual) 8 H Eosinophils % (Manual) 2 Basophils % (Manual) 2 H Metamyelocytes % 2 Myelocytes % 6 Platelet Evaluation High Large Platelets Present Poikilocytosis (manual Slight PT INR pCO2 pO2 HCO3 ABG pH ABG Total CO2 ABG O2 Saturation ABG O2 Content ABG Base Excess ABG Hemoglobin ABG Carboxyhemoglobin POC ABG HHb (Measured) ABG Methemoglobin ABG O2 Capacity Hgb O2 Saturation FiO2 Sodium 137 Potassium 4.5 Chloride 106 Carbon Dioxide 21 Anion Gap 15 BUN 42 H Creatinine 2.5 H Est GFR ( Amer) 23 Est GFR (Non-Af Amer) 19 Random Glucose 95 Calcium 8.6 Magnesium 2.0 Total Bilirubin 0.6 AST 16 ALT 19 Alkaline Phosphatase 160 H D Lactate Dehydrogenase 399 Total Creatine Kinase 20 L Troponin I 0.02 D NT-Pro-B Natriuret Pep 6710 H Total Protein 6.3 Albumin 2.6 L Globulin 3.7 Albumin/Globulin Ratio 0.7 L Carcinoembryonic Ag TSH 3rd Generation Influenza Typ A,B (EIA) Negative for flu a/b 07/10/18 07/10/18 07/10/18 05:43 07:00 09:00 WBC RBC Hgb Hct MCV MCH MCHC RDW Plt Count MPV Gran % Lymph % (Auto) Tift % (Auto) Eos % (Auto) Baso % (Auto) Gran # Lymph # (Auto) Tift # (Auto) Eos # (Auto) Baso # (Auto) Neutrophils % (Manual) Band Neutrophils % Lymphocytes % (Manual) Monocytes % (Manual) Eosinophils % (Manual) Basophils % (Manual) Metamyelocytes % Myelocytes % Platelet Evaluation Large Platelets Poikilocytosis (manual PT 97.1 H INR 8.09 H* pCO2 23 L pO2 198.0 H HCO3 20.1 L ABG pH 7.55 H ABG Total CO2 20.8 L ABG O2 Saturation 99.9 H ABG O2 Content 10.7 L ABG Base Excess -1.7 ABG Hemoglobin 7.5 L ABG Carboxyhemoglobin 2.0 H POC ABG HHb (Measured) 0.1 ABG Methemoglobin 0.9 ABG O2 Capacity 10.7 L Hgb O2 Saturation 97.1 FiO2 32.0 Sodium Potassium Chloride Carbon Dioxide Anion Gap BUN Creatinine Est GFR ( Amer) Est GFR (Non-Af Amer) Random Glucose Calcium Magnesium Total Bilirubin AST ALT Alkaline Phosphatase Lactate Dehydrogenase Total Creatine Kinase Troponin I NT-Pro-B Natriuret Pep Total Protein Albumin Globulin Albumin/Globulin Ratio Carcinoembryonic Ag 1.0 TSH 3rd Generation 4.99 H Influenza Typ A,B (EIA) Assessment & Plan - Assessment and Plan (Free Text) Assessment: 73 year old female with PMH of morbid obesity, Afib on Coumadin, severe pulmonary HTN, COPD, PVD, and chronic lymphedema presenting with shortness of breath and chest pain. Multiple admissions since March 2018, most recent being June 21/2018 for severe sepsis due to HCAP, COPD exacerbation, and Pseudomonas/ESBL lower extremities wound infections requiring prolonged antibiotic courses. Active treatment of Afib RVR, supratherapeutic INR, and GI consultation for weight loss. Plan: -DDx-dyspepsia 2/2 lifestyle, new onset respiratory secretions -loss if appetite with weight loss in setting of infections with prolonged antibiotic course -Pepcid BID -Zantac and Maalox PRN -Miralax daily for constipation -pulmonary toilet -over weight limit for CT imaging -clear liquid diet trial from GI standpoint -follow up cardiology recommendations -endoscopy not warranted with acute onset of dyspepsia over three days -high risk for anesthesia and endoscopic evaluation given body habitus, medical optimization and monitoring of clinical course <Medardo Steele - Last Filed: 07/10/18 15:06> Meds - Medications Medications: Current Medications Albuterol/Ipratropium (Duoneb 3 Mg/0.5 Mg (3 Ml) Ud) 3 ml IH Q6 RONI Last Admin: 07/10/18 14:35 Dose: 3 ml Fluticasone Propionate (Flonase) 1 actuation MARIAM DAILY RONI Vasopressin 20 units/ Sodium (Chloride) 101 mls @ 9.09 mls/hr IV .Q11H7M RONI; Protocol Last Admin: 07/10/18 11:43 Dose: 9.09 mls/hr Doxycycline Hyclate 100 mg/ (Sodium Chloride) 100 mls @ 100 mls/hr IVPB Q12 RONI; Protocol Last Admin: 07/10/18 11:42 Dose: 100 mls/hr Meropenem/Sodium Chloride (Merrem Iv 500 Mg/Ns 50 Ml) 500 mg in 50 mls @ 100 mls/hr IVPB Q12 RONI; Protocol Stop: 07/19/18 22:01 Linezolid (Zyvox 600mg/300ml D5w) 600 mg in 300 mls @ 200 mls/hr IVPB Q12 RONI; Protocol Stop: 07/19/18 22:01 NOREPINEPHRINE BIT/0.9 % NACL (Levophed 4 Mg/ 250 Ml Ns Premixed) 4 mg in 250 mls @ 15 mls/hr IV .[id number] PRN; Protocol PRN Reason: TITRATE PER MD ORDER Levothyroxine Sodium (Synthroid) 25 mcg PO DAILY [facility] Last Admin: 07/10/18 14:21 Dose: Not Given Pantoprazole Sodium (Protonix Ec Tab) 40 mg PO DAILY RONI Last Admin: 07/10/18 14:21 Dose: Not Given Results - Vital Signs Recent Vital Signs: Last Vital Signs Temp 97.9 F 07/10/18 04:59 Pulse 109 H 07/10/18 14:03 Resp 18 07/10/18 14:03 BP 83/69 L 07/10/18 13:19 Pulse Ox 100 07/10/18 13:19 - Labs Result Diagrams: 07/10/18 05:20 07/10/18 05:20 Labs: Laboratory Results - last 24 hr 07/10/18 07/10/18 07/10/18 05:20 05:20 05:25 WBC 13.8 H D RBC 3.70 Hgb 9.4 L Hct 30.3 L MCV 81.9 MCH 25.4 MCHC 31.0 RDW 16.2 H Plt Count 553 H MPV 9.4 Gran % 72.5 H Lymph % (Auto) 15.5 L Tift % (Auto) 9.2 H Eos % (Auto) 2.0 Baso % (Auto) 0.8 Gran # 10.03 H Lymph # (Auto) 2.2 Tift # (Auto) 1.3 H Eos # (Auto) 0.3 Baso # (Auto) 0.11 Neutrophils % (Manual) 57 Band Neutrophils % 3 H Lymphocytes % (Manual) 20 L Monocytes % (Manual) 8 H Eosinophils % (Manual) 2 Basophils % (Manual) 2 H Metamyelocytes % 2 Myelocytes % 6 Platelet Evaluation High Large Platelets Present Poikilocytosis (manual Slight PT INR pCO2 pO2 HCO3 ABG pH ABG Total CO2 ABG O2 Saturation ABG O2 Content ABG Base Excess ABG Hemoglobin ABG Carboxyhemoglobin POC ABG HHb (Measured) ABG Methemoglobin ABG O2 Capacity Hgb O2 Saturation FiO2 Sodium 137 Potassium 4.5 Chloride 106 Carbon Dioxide 21 Anion Gap 15 BUN 42 H Creatinine 2.5 H Est GFR ( Amer) 23 Est GFR (Non-Af Amer) 19 Random Glucose 95 Calcium 8.6 Magnesium 2.0 Total Bilirubin 0.6 AST 16 ALT 19 Alkaline Phosphatase 160 H D Lactate Dehydrogenase 399 Total Creatine Kinase 20 L Troponin I 0.02 D NT-Pro-B Natriuret Pep 6710 H Total Protein 6.3 Albumin 2.6 L Globulin 3.7 Albumin/Globulin Ratio 0.7 L Carcinoembryonic Ag TSH 3rd Generation Influenza Typ A,B (EIA) Negative for flu a/b 07/10/18 07/10/18 07/10/18 05:43 07:00 09:00 WBC RBC Hgb Hct MCV MCH MCHC RDW Plt Count MPV Gran % Lymph % (Auto) Tift % (Auto) Eos % (Auto) Baso % (Auto) Gran # Lymph # (Auto) Tift # (Auto) Eos # (Auto) Baso # (Auto) Neutrophils % (Manual) Band Neutrophils % Lymphocytes % (Manual) Monocytes % (Manual) Eosinophils % (Manual) Basophils % (Manual) Metamyelocytes % Myelocytes % Platelet Evaluation Large Platelets Poikilocytosis (manual PT 97.1 H INR 8.09 H* pCO2 23 L pO2 198.0 H HCO3 20.1 L ABG pH 7.55 H ABG Total CO2 20.8 L ABG O2 Saturation 99.9 H ABG O2 Content 10.7 L ABG Base Excess -1.7 ABG Hemoglobin 7.5 L ABG Carboxyhemoglobin 2.0 H POC ABG HHb (Measured) 0.1 ABG Methemoglobin 0.9 ABG O2 Capacity 10.7 L Hgb O2 Saturation 97.1 FiO2 32.0 Sodium Potassium Chloride Carbon Dioxide Anion Gap BUN Creatinine Est GFR ( Amer) Est GFR (Non-Af Amer) Random Glucose Calcium Magnesium Total Bilirubin AST ALT Alkaline Phosphatase Lactate Dehydrogenase Total Creatine Kinase Troponin I NT-Pro-B Natriuret Pep Total Protein Albumin Globulin Albumin/Globulin Ratio Carcinoembryonic Ag 1.0 TSH 3rd Generation 4.99 H Influenza Typ A,B (EIA) Attending/Attestation - Attestation I have fully participated in the care of the patient.: Yes I have reviewed all pertinent clinical information: Yes Notes (Text): 07/10/18 15:02 Morbid obesity Atrial fibrillation on coumadin COPD Pulmonary HTN Dyspnea Weight loss, deconditioned state - Diet as tolerated - Ideally would favor CT imaging, though patient with morbid obesity and not able to physically complete examination due to weight restrictions - Continue with antibiotic therapy as per ID - Follow up cardiology recommendations given atrial fibrillation with RVR - Continue with h2 cj therapy - Patient would benefit from additional endoscopic workup following resolution of acute medical issues which should be scheduled electively as outpatient. Will continue to monitor patient clinical course.
--- NOTE | 2018-07-10 12:42 | CP.PCM.CON ---
<Juan Alberto Hill - Last Filed: 07/10/18 12:17> History of Present Illness - History of Present Illness History of Present Illness: Juan Alberto Hill DO, PGY-1 ICU Consult Note for Dr. Sosa 73 y/o female with multiple co-morbidities include morbid obesity (BMI 68) CHF, Afib, COPD, DM2, and severe b/l LE edema/lymphedema who presents to ED for sharp sbusternal chest pain and epigastric area related to food ingestion and feeling the food and fluids stuck in her upper chest/epigastric area. Patient reported significant weight loss (from 700lb to 500 lb now) in the past 3 months. She relates that to poor appetite and difficulty swallowing. As per patient, colon scopy was done few years ago and was normal but no EGD in the past. Patient was on lasix 40mg twice a day that was stopped due to hypotension in 80- 90s for the past 4 days. She still on Augmentin and doxycycline since recent hospital admission. Symptoms are associated with dry cough, SOB, chocking, dysphagia to solid and liquids . She states that she has felt lethargic for the past four days and she is feeling worse. Patient was recently admitted to [facility] ICU for CHF exacerbation and sepsis 3 weeks ago. She still on augmentin and doxycycline which she takes on an empty stomach. ROS: positives; malaise, headache, worsening LE edema, palpitations, loss of appetite, lethargy negatives; fever, hemoptysis, hematemesis, blood per rectum, , change in bowel movement, dark stool PMH: CHF, AFib, COPD, DM2, hypothyroidism, severe LE lymphedema with chronic thigh wounds, chronic venous insuffiency PSH: RLE abscess I&D, excision of L-sided abdominal wall mass Meds: lasix(stopped 4 days ago), glucophage, synthroid, midodrine, lotrisone, pulmicort, potassium, coumadin, ALL: NKDA FHx: mother, CAD Social: no smoking, drug, or alcohol use Past Patient History - Infectious Disease Hx of Infectious Diseases: None - Tetanus Immunizations Tetanus Immunization: Unknown - Past Social History Smoking Status: Never Smoked - CARDIAC Hx Pacemaker: No - PULMONARY Hx Respiratory Disorders: Yes (using 02 at home/ nebulizer machine) Hx Asthma: Yes Hx Chronic Obstructive Pulmonary Disease (COPD): Yes Hx Emphysema: Yes Hx Pneumonia: Yes - NEUROLOGICAL Hx Neurological Disorder: No - HEENT Hx HEENT Problems: Yes (glasses) Other/Comment: thrush to oral cavity and tongue - RENAL Hx Chronic Kidney Disease: No - ENDOCRINE/METABOLIC Hx Endocrine Disorders: Yes Hx Diabetes Mellitus Type 2: Yes - HEMATOLOGICAL/ONCOLOGICAL Hx Cancer: No - INTEGUMENTARY Hx Dermatological Problems: Yes (chronic venous stasis dermatitis ble) Other/Comment: pt is obese, right outer thigh skin openings healed, redness, hard brown dry skin, dimpling to left thigh, pt c/o that she, sometimes has drainage from left thigh. both lower legs and feet dry skin. redness and discoloration to right abd fold healed, pt unable to turn in bed to assess skin on back, ble +4 pitting edema redness - MUSCULOSKELETAL/RHEUMATOLOGICAL Hx Musculoskeletal Disorders: Yes Hx Falls: No Hx Unsteady Gait: Yes (bedbound) - GASTROINTESTINAL Hx Gastrointestinal Disorders: Yes (benign mass removed from abd 30 yrs ago) Other/Comment: morbid obesity - GENITOURINARY/GYNECOLOGICAL Hx Genitourinary Disorders: Yes Hx Incontinence: Yes (urine and stool) Hx Urinary Tract Infection: Yes - PSYCHIATRIC Hx Psychophysiologic Disorder: No Hx Substance Use: No - SURGICAL HISTORY Hx Mastectomy: No - ANESTHESIA Hx Anesthesia: Yes Meds Allergies/Adverse Reactions: Allergies Allergy/AdvReac Type Severity Reaction Status Date / Time No Known Allergies Allergy Verified 07/10/18 04:46 - Medications Medications: Current Medications Albuterol/Ipratropium (Duoneb 3 Mg/0.5 Mg (3 Ml) Ud) 3 ml IH Q6 [facility] Fluticasone Propionate (Flonase) 1 actuation MARIAM DAILY [facility] Vasopressin 20 units/ Sodium (Chloride) 101 mls @ 9.09 mls/hr IV .Q11H7M RONI; Protocol Last Admin: 07/10/18 11:43 Dose: 9.09 mls/hr Cefepime HCl (Maxipime 1gm) 1 gm in 100 mls @ 100 mls/hr IVPB Q12 RONI; Protocol Doxycycline Hyclate 100 mg/ (Sodium Chloride) 100 mls @ 100 mls/hr IVPB Q12 RONI; Protocol Last Admin: 07/10/18 11:42 Dose: 100 mls/hr Levothyroxine Sodium (Synthroid) 25 mcg PO DAILY RONI Pantoprazole Sodium (Protonix Ec Tab) 40 mg PO DAILY RONI Warfarin Sodium (Coumadin) 3 mg PO DAILY RONI; Protocol Physical Exam - Constitutional Appears: Non-toxic, Cachectic, Chronically Ill - Head Exam Head Exam: ATRAUMATIC, NORMAL INSPECTION, NORMOCEPHALIC - Eye Exam Eye Exam: EOMI, Normal appearance Pupil Exam: NORMAL ACCOMODATION, PERRL - ENT Exam ENT Exam: Mucous Membranes Dry - Neck Exam Neck exam: Positive for: Full Rom, Normal Inspection - Respiratory Exam Respiratory Exam: NORMAL BREATHING PATTERN. absent: Rales, Rhonchi, Wheezes, Stridor - Cardiovascular Exam Cardiovascular Exam: Tachycardia, Irregular Rhythm, +S1, +S2. absent: Gallop, JVD - GI/Abdominal Exam GI & Abdominal Exam: Normal Bowel Sounds, Soft Additional comments: obese - Extremities Exam Additional comments: pedal pulses not palpable, 4+ b/l LE edeme with lymphedema - Neurological Exam Neurological exam: CN II-XII Intact, Oriented x3 - Psychiatric Exam Psychiatric exam: Depressed - Skin Additional comments: b/l LE skin wounds in thigh. oozing clear/yellow fluid, no blood seen, normal odor, no erythema, non tender to palpate Results - Vital Signs Recent Vital Signs: Last Vital Signs Temp 97.9 F 07/10/18 04:59 Pulse 109 H 07/10/18 11:25 Resp 18 07/10/18 11:25 BP 95/46 L 07/10/18 11:43 Pulse Ox 100 07/10/18 11:25 - Labs Result Diagrams: 07/10/18 05:20 07/10/18 05:20 Labs: Laboratory Results - last 24 hr 07/10/18 07/10/18 07/10/18 05:20 05:20 05:25 WBC 13.8 H D RBC 3.70 Hgb 9.4 L Hct 30.3 L MCV 81.9 MCH 25.4 MCHC 31.0 RDW 16.2 H Plt Count 553 H MPV 9.4 Gran % 72.5 H Lymph % (Auto) 15.5 L [place] % (Auto) 9.2 H Eos % (Auto) 2.0 Baso % (Auto) 0.8 Gran # 10.03 H Lymph # (Auto) 2.2 [place] # (Auto) 1.3 H Eos # (Auto) 0.3 Baso # (Auto) 0.11 Neutrophils % (Manual) 57 Band Neutrophils % 3 H Lymphocytes % (Manual) 20 L Monocytes % (Manual) 8 H Eosinophils % (Manual) 2 Basophils % (Manual) 2 H Metamyelocytes % 2 Myelocytes % 6 Platelet Evaluation High Large Platelets Present Poikilocytosis (manual Slight PT INR pCO2 pO2 HCO3 ABG pH ABG Total CO2 ABG O2 Saturation ABG O2 Content ABG Base Excess ABG Hemoglobin ABG Carboxyhemoglobin POC ABG HHb (Measured) ABG Methemoglobin ABG O2 Capacity Hgb O2 Saturation FiO2 Sodium 137 Potassium 4.5 Chloride 106 Carbon Dioxide 21 Anion Gap 15 BUN 42 H Creatinine 2.5 H Est GFR ( Amer) 23 Est GFR (Non-Af Amer) 19 Random Glucose 95 Calcium 8.6 Magnesium 2.0 Total Bilirubin 0.6 AST 16 ALT 19 Alkaline Phosphatase 160 H D Lactate Dehydrogenase 399 Total Creatine Kinase 20 L Troponin I 0.02 D NT-Pro-B Natriuret Pep 6710 H Total Protein 6.3 Albumin 2.6 L Globulin 3.7 Albumin/Globulin Ratio 0.7 L Carcinoembryonic Ag TSH 3rd Generation Influenza Typ A,B (EIA) Negative for flu a/b 07/10/18 07/10/18 07/10/18 05:43 07:00 09:00 WBC RBC Hgb Hct MCV MCH MCHC RDW Plt Count MPV Gran % Lymph % (Auto) [place] % (Auto) Eos % (Auto) Baso % (Auto) Gran # Lymph # (Auto) [place] # (Auto) Eos # (Auto) Baso # (Auto) Neutrophils % (Manual) Band Neutrophils % Lymphocytes % (Manual) Monocytes % (Manual) Eosinophils % (Manual) Basophils % (Manual) Metamyelocytes % Myelocytes % Platelet Evaluation Large Platelets Poikilocytosis (manual PT 97.1 H INR 8.09 H* pCO2 23 L pO2 198.0 H HCO3 20.1 L ABG pH 7.55 H ABG Total CO2 20.8 L ABG O2 Saturation 99.9 H ABG O2 Content 10.7 L ABG Base Excess -1.7 ABG Hemoglobin 7.5 L ABG Carboxyhemoglobin 2.0 H POC ABG HHb (Measured) 0.1 ABG Methemoglobin 0.9 ABG O2 Capacity 10.7 L Hgb O2 Saturation 97.1 FiO2 32.0 Sodium Potassium Chloride Carbon Dioxide Anion Gap BUN Creatinine Est GFR ( Amer) Est GFR (Non-Af Amer) Random Glucose Calcium Magnesium Total Bilirubin AST ALT Alkaline Phosphatase Lactate Dehydrogenase Total Creatine Kinase Troponin I NT-Pro-B Natriuret Pep Total Protein Albumin Globulin Albumin/Globulin Ratio Carcinoembryonic Ag 1.0 TSH 3rd Generation 4.99 H Influenza Typ A,B (EIA) Assessment & Plan - Assessment and Plan (Free Text) Assessment: 73 y/o female with multiple co-morbidities include morbid obesity (BMI 68) CHF, Afib, COPD, DM2, and severe b/l LE edema/lymphedema admitted to ICU for sepsis and CHF exacerbation. Plan: Neuro: -AAOx3 -Maintain normothermia CVS: -h/o CHF, Afib, LE edema/lymphedema, PVD -BNP 6710 -Trop 0.02 x1 -Continue vasopressin for hypotension -continue warfarin -hold lasix for low BP -cardio consulted (dr Turk) , recs appreciated ID: -leukocytosis, hypotension, tachycadria-positive SIRS -sepsis likely due to wound infection/UTI. h/o ESBL -f/u blood, urine cultures -f/u procal -f/u lactate -continue abx cefepime, doxycycline -ID consulted (dr White) , recs appreciated GI: -Dysphagia to solid and liquid, significant weight loss. r/o abdominal malignancy -abd/pelvis U/S ordered -CT can not be done due to overweight -PT/INR 97.1/8.09 -bilirubin 0.6 -albumin 2.6 -AST/ALT normal -Zantac and Maalox PRN -Miralax daily for constipation -GI consulted(dr Steele): high risk for anesthesia and endoscopic evaluation given body habitus, medical optimization. Heme/onc: -chronic anemia -H/H 9.4/30.3 (was 11.1/34.1 4 weeks ago) -no signs of bleeding -weight loss of 200 lb in 3 month -significant weight loss, dysphagia, malaise, muscle waiting concering for malignancy -CA 125, CA19-9 CEA ordered Renal/: -CRIS on CKD -BUN/Cr 42/2.5 compared to 24/0.8 on last admission few weeks ago -GFR 19 -avoid nephrotoxic drugs -UA ordered -Monitor I&O -replete lytes as needed Resp: - In no respiratory distress -recent admission due to severe sepsis due to HCAP, COPD exacerbation, and Ps eudomonas/ESBL skin infection -CXR: no active infilterate -AB.55/23/198/20.1 -Flu A/B negative -Duoneb prn -Maintain O2 sat >90% -O2 NC PRN Endo: -hypothyroidism. continue home med synthroid -TSH:: 4.99 Prophylaxis: GI ppx: protonix DVT ppx: Clear liquid diet Case reviewed and plan discussed with attending Dr Sheila Hill, DO, PGY1 <Gigi Sosa - Last Filed: 07/11/18 08:46> Meds - Medications Medications: Current Medications Albuterol/Ipratropium (Duoneb 3 Mg/0.5 Mg (3 Ml) Ud) 3 ml IH Q6 RONI Last Admin: 07/11/18 07:42 Dose: 3 ml Ergocalciferol (Drisdol 50,000 Intl Units Cap) 1 cap PO Q7D RONI Ferrous Gluconate (Fergon) 324 mg PO TID RONI Fluticasone Propionate (Flonase) 1 actuation MARIAM DAILY [facility] Vasopressin 20 units/ Sodium (Chloride) 101 mls @ 9.09 mls/hr IV .Q11H7M RONI; Protocol Last Admin: 07/10/18 22:47 Dose: 9.09 mls/hr Doxycycline Hyclate 100 mg/ (Sodium Chloride) 100 mls @ 100 mls/hr IVPB Q12 S ; Protocol Last Admin: 07/10/18 22:23 Dose: 100 mls/hr Meropenem/Sodium Chloride (Merrem Iv 500 Mg/Ns 50 Ml) 500 mg in 50 mls @ 100 mls/hr IVPB Q12 RONI; Protocol Stop: 07/19/18 22:01 Last Admin: 07/10/18 22:25 Dose: 100 mls/hr Linezolid (Zyvox 600mg/300ml D5w) 600 mg in 300 mls @ 200 mls/hr IVPB Q12 RONI; Protocol Stop: 07/19/18 22:01 Last Admin: 07/10/18 22:26 Dose: 200 mls/hr NOREPINEPHRINE BIT/0.9 % NACL (Levophed 4 Mg/ 250 Ml Ns Premixed) 4 mg in 250 mls @ 15 mls/hr IV .[id number] PRN; Protocol PRN Reason: TITRATE PER MD ORDER Last Admin: 07/10/18 17:03 Dose: 4 mcg/min, 15 mls/hr Levothyroxine Sodium (Synthroid) 25 mcg PO DAILY RONI Last Admin: 07/10/18 14:21 Dose: Not Given Pantoprazole Sodium (Protonix Ec Tab) 40 mg PO DAILY RONI Last Admin: 07/10/18 14:21 Dose: Not Given Vitamin B Complex/Vit C/Folic Acid (Nephro-Miguelito) 1 tab PO 0800 [facility] Results - Vital Signs Recent Vital Signs: Last Vital Signs Temp 97.9 F 07/10/18 04:59 Pulse 93 H 07/11/18 07:31 Resp 12 07/11/18 07:31 BP 99/52 L 07/11/18 07:31 Pulse Ox 98 07/11/18 07:31 - Labs Result Diagrams: 07/11/18 07:00 07/11/18 07:00 Labs: Laboratory Results - last 24 hr 07/10/18 07/10/18 07/10/18 07:00 09:00 09:00 WBC RBC Hgb Hct MCV MCH MCHC RDW Plt Count MPV Gran % Lymph % (Auto) [place] % (Auto) Eos % (Auto) Baso % (Auto) Gran # Lymph # (Auto) [place] # (Auto) Eos # (Auto) Baso # (Auto) Neutrophils % (Manual) Band Neutrophils % Lymphocytes % (Manual) Atypical Lymphs % Monocytes % (Manual) Eosinophils % (Manual) Metamyelocytes % Myelocytes % PT 97.1 H INR 8.09 H* Sodium Potassium Chloride Carbon Dioxide Anion Gap BUN Creatinine Est GFR ( Amer) Est GFR (Non-Af Amer) POC Glucose (mg/dL) Random Glucose Lactic Acid Calcium Phosphorus Magnesium Total Bilirubin AST ALT Alkaline Phosphatase Total Protein Albumin Globulin Albumin/Globulin Ratio Carcinoembryonic Ag 1.0 CA 19-9 Antigen 83.6 H CA 125 Antigen < 5.5 Procalcitonin TSH 3rd Generation 4.99 H 07/10/18 07/10/18 07/10/18 09:40 17:00 17:00 WBC 13.7 H RBC 3.15 L Hgb 8.1 L Hct 25.6 L MCV 81.3 MCH 25.7 MCHC 31.6 RDW 16.1 H Plt Count 516 H MPV 9.4 Gran % 73.8 H Lymph % (Auto) 13.2 L [place] % (Auto) 10.3 H Eos % (Auto) 2.0 Baso % (Auto) 0.7 Gran # 10.10 H Lymph # (Auto) 1.8 [place] # (Auto) 1.4 H Eos # (Auto) 0.3 Baso # (Auto) 0.09 Neutrophils % (Manual) 62 Band Neutrophils % 2 Lymphocytes % (Manual) 12 L Atypical Lymphs % 2 H Monocytes % (Manual) 13 H Eosinophils % (Manual) 10 H Metamyelocytes % 1 Myelocytes % 6 PT INR Sodium 136 Potassium 3.6 Chloride 104 Carbon Dioxide 24 Anion Gap 11 BUN 40 H Creatinine 2.5 H Est GFR ( Amer) 23 Est GFR (Non-Af Amer) 19 POC Glucose (mg/dL) Random Glucose 104 Lactic Acid Calcium 8.0 L Phosphorus 3.8 Magnesium 1.9 Total Bilirubin 0.5 AST 19 ALT 18 Alkaline Phosphatase 137 H Total Protein 5.6 L Albumin 2.3 L Globulin 3.3 Albumin/Globulin Ratio 0.7 L Carcinoembryonic Ag CA 19-9 Antigen CA 125 Antigen Procalcitonin 0.37 TSH 3rd Generation 07/10/18 07/10/18 07/11/18 17:00 21:59 07:00 WBC 14.7 H RBC 3.29 L Hgb 8.3 L Hct 27.0 L MCV 82.1 MCH 25.2 MCHC 30.7 L RDW 16.2 H Plt Count 538 H MPV 9.4 Gran % Lymph % (Auto) [place] % (Auto) Eos % (Auto) Baso % (Auto) Gran # Lymph # (Auto) [place] # (Auto) Eos # (Auto) Baso # (Auto) Neutrophils % (Manual) Band Neutrophils % Lymphocytes % (Manual) Atypical Lymphs % Monocytes % (Manual) Eosinophils % (Manual) Metamyelocytes % Myelocytes % PT INR Sodium Potassium Chloride Carbon Dioxide Anion Gap BUN Creatinine Est GFR ( Amer) Est GFR (Non-Af Amer) POC Glucose (mg/dL) 113 H Random Glucose Lactic Acid 1.2 Calcium Phosphorus Magnesium Total Bilirubin AST ALT Alkaline Phosphatase Total Protein Albumin Globulin Albumin/Globulin Ratio Carcinoembryonic Ag CA 19-9 Antigen CA 125 Antigen Procalcitonin TSH 3rd Generation 07/11/18 07/11/18 07:00 07:00 WBC RBC Hgb Hct MCV MCH MCHC RDW Plt Count MPV Gran % Lymph % (Auto) [place] % (Auto) Eos % (Auto) Baso % (Auto) Gran # Lymph # (Auto) [place] # (Auto) Eos # (Auto) Baso # (Auto) Neutrophils % (Manual) Band Neutrophils % Lymphocytes % (Manual) Atypical Lymphs % Monocytes % (Manual) Eosinophils % (Manual) Metamyelocytes % Myelocytes % PT 111.5 H INR 9.27 H* Sodium 137 Potassium 3.5 L Chloride 105 Carbon Dioxide 24 Anion Gap 11 BUN 37 H Creatinine 2.4 H Est GFR ( Amer) 24 Est GFR (Non-Af Amer) 20 POC Glucose (mg/dL) Random Glucose 125 H Lactic Acid Calcium 8.1 L Phosphorus Magnesium Total Bilirubin 0.5 AST 22 ALT 17 Alkaline Phosphatase 136 H Total Protein 5.6 L Albumin 2.3 L Globulin 3.3 Albumin/Globulin Ratio 0.7 L Carcinoembryonic Ag CA 19-9 Antigen CA 125 Antigen Procalcitonin TSH 3rd Generation Attending/Attestation - Attestation I have personally seen and examined this patient.: Yes I have fully participated in the care of the patient.: Yes I have reviewed all pertinent clinical information: Yes Notes (Text): 07/11/18 08:[address] Sosa note
--- NOTE | 2018-07-10 12:48 | RAD ---
Date of service: 07/10/2018 HISTORY: CONFIRM PLACEMENT OF RIGHT SIDED NEW PICC LINE COMPARISON: No prior. FINDINGS: LUNGS: No active pulmonary disease. PLEURA: No significant pleural effusion identified, no pneumothorax apparent. CARDIOVASCULAR: Mild aortic calcification Mild cardiomegaly no pulmonary vascular congestion. OSSEOUS STRUCTURES: No significant abnormalities. VISUALIZED UPPER ABDOMEN: Normal. OTHER FINDINGS: None. IMPRESSION: Right-sided PICC line terminates in the SVC 5 cm above the atrial junction
[2018-07-10] MEDS: Pantoprazole 40 mg EC Tab PO SCH (14:21)
[2018-07-10] MEDS: Levothyroxine 25 MCG TAB PO SCH (14:21)
[2018-07-10 14:29] VITALS: BMI 68.2
[2018-07-10] MEDS ORDERED: Pneumococcal 23-Valent Vaccine IM ONE (14:30)
[2018-07-10] MEDS: Albuterol-Ipratrop 3 mg / 0.5 (3 ml) UD IH SCH (14:35)
--- NOTE | 2018-07-10 15:44 | CP.PCM.CON ---
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 morbid obesity left kidney cyst Plan No acute need for renal replacement therapy at this time. Maintain hemodynamics stable. Avoid hypotension. Patient not on ACEI/ARB due to recent CRIS and low BP. but on a fib rate control meds. vasopressin drip as per ICU. Monitor Input/Output, daily weights and renal function with basic metabolic secured entrance monitor dig level start iron 324 mg TID and MVI daily and weekly Vit D Dose meds/antibiotics for reduced GFR. Avoid fleets enema/magnesium based laxatives. Avoid nephrotoxins/NSAIDs/ iodinated contrast (unless needed emergently) Glycemic control Further work up/management as per primary team Thanks for allowing me to participate in care of your patient. Will follow patient with you. Please call if any Qs. had d/w team. 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 seen for CRIS with cr 0.6 at baseline and 1.3 at d/c. pt came with chest pain and SOB. Denies OTC/herbal meds or NSAIDs No recent iodinated contrast exposure. Noted obvious episodes of low sBP (80- 90s). reports chronic legs swelling. not aware about kidney disease in past. ROS: Cardiovascular: No chest pain. Pulmonary: has acute on chronic shortness of breath Gastrointestinal: denies abdominal pain No nausea. No vomiting. Genitourinary: No pain while urinating. Denies blood in urine. All other negative except as mentioned in HPI. has chronic legs swelling Physical Examination: General Appearance: Comfortable, in no acute respiratory distress, co-operative. morbidly obese ++ Vitals reviewed and noted as below Head; Atraumatic, normocephalic ENT: no ulcers no thrush. Tongue is midline. Oropharynx: no rash or ulcers. EYES: Pupils are equal, round and reactive to light accommodation. Eye muscles and extraocular movement intact. Sclera is anicteric. Neck; supple no lymphadenopathy, no thyromegaly or bruit Lungs: Increased respiratory rate/effort. Breath sounds bilateral equal and decreased at bases Heart: Normal rate. s1s2 normal. No rub or gallop. Extremities: 3+ edema. No varicose veins Neurological: Patient is alert, awake and oriented to person, place and time. No focal deficit. Strength bilateral appropriate and equal Skin: Warm and dry. Normal turgor. No rash. Palpitation: Normal elasticity for age Abdomen: Abdomen is soft. Bowel sounds +. There is no abdominal tenderness, no guarding/rigidity no organomegaly Psych: normal insight and normal affect/mood MSK: no joint tenderness or swelling. Digits and nails normal, no deformity : kidney or bladder not palpable Labs/imaging reviewed. Past medical history, past surgical history, family history, social history, allergy reviewed and noted as below Family hx: no hx of CKD. Rest non-contributory Echo; normal lvef, severe MR/TR/ND renal imaging: left kidney cyst TSAT/Ferritin 12/356, SPEP/DILSHAD neg and normal FLC assay Vit D <12.8 PTH 286 urine alb/cr 126 mg/g Past Patient History - Infectious Disease Hx of Infectious Diseases: None - Tetanus Immunizations Tetanus Immunization: Unknown - Past Social History Smoking Status: Never Smoked - CARDIAC Hx Cardiac Disorders: Yes (palpitations, afib) Hx Angina: Yes Hx Cardia Arrhythmia: Yes Hx Congestive Heart Failure: Yes Hx Pacemaker: No Hx Peripheral Edema: Yes (ble +4 pitting) Hx Peripheral Vascular Disease: Yes (lymphadema) - PULMONARY Hx Respiratory Disorders: Yes (using 02 at home/ nebulizer machine) Hx Asthma: Yes Hx Chronic Obstructive Pulmonary Disease (COPD): Yes Hx Emphysema: Yes Hx Pneumonia: Yes - NEUROLOGICAL Hx Neurological Disorder: No - HEENT Hx HEENT Problems: Yes (glasses) Other/Comment: thrush to oral cavity and tongue - RENAL Hx Chronic Kidney Disease: No - ENDOCRINE/METABOLIC Hx Endocrine Disorders: Yes Hx Diabetes Mellitus Type 2: Yes - HEMATOLOGICAL/ONCOLOGICAL Hx Blood Disorders: Yes (septicemia) Hx Anemia: Yes - INTEGUMENTARY Hx Dermatological Problems: Yes (chronic venous stasis dermatitis ble) Other/Comment: pt is obese, right outer thigh skin openings healed, redness, hard brown dry skin, dimpling to left thigh, pt c/o that she, sometimes has drainage from left thigh. both lower legs and feet dry skin. redness and discoloration to right abd fold healed, ble +4 pitting edema & brown discolored dry skin, dry skin and toenails both feet, multiple healing unmeasurable wounds to b/l buttocks, irregular wound left buttock red, multiple wounds in various stages of healing to entire abd, multiple areas of red foul smelling and drainin g light green purulent drainage wounds to upper and lower abd, discolored brown skin to abd, healing wounds to b/l thighs - MUSCULOSKELETAL/RHEUMATOLOGICAL Hx Falls: No - GASTROINTESTINAL Hx Gastrointestinal Disorders: Yes (benign mass removed from abd 30 yrs ago) Other/Comment: morbid obesity, blood in stool - GENITOURINARY/GYNECOLOGICAL Hx Genitourinary Disorders: Yes Hx Hematuria: Yes Hx Incontinence: Yes (urine and stool) Hx Urinary Tract Infection: Yes - PSYCHIATRIC Hx Substance Use: No - SURGICAL HISTORY Hx Surgeries: Yes (tayler picc line today 07/10/18) Hx Cardiac Catheterization: Yes Hx Mastectomy: No Other/Comment: benign mass removed from abd over 30 yrs ago - ANESTHESIA Hx Anesthesia: Yes Meds Allergies/Adverse Reactions: Allergies Allergy/AdvReac Type Severity Reaction Status Date / Time No Known Allergies Allergy Verified 07/10/18 04:46 - Medications Medications: Current Medications Albuterol/Ipratropium (Duoneb 3 Mg/0.5 Mg (3 Ml) Ud) 3 ml IH Q6 RONI Last Admin: 07/10/18 14:35 Dose: 3 ml Fluticasone Propionate (Flonase) 1 actuation MARIAM DAILY RONI Vasopressin 20 units/ Sodium (Chloride) 101 mls @ 9.09 mls/hr IV .[id number] RONI; Protocol Last Admin: 07/10/18 11:43 Dose: 9.09 mls/hr Doxycycline Hyclate 100 mg/ (Sodium Chloride) 100 mls @ 100 mls/hr IVPB Q12 RONI; Protocol Last Admin: 07/10/18 11:42 Dose: 100 mls/hr Meropenem/Sodium Chloride (Merrem Iv 500 Mg/Ns 50 Ml) 500 mg in 50 mls @ 100 mls/hr IVPB Q12 RONI; Protocol Stop: 07/19/18 22:01 Linezolid (Zyvox 600mg/300ml D5w) 600 mg in 300 mls @ 200 mls/hr IVPB Q12 RONI; Protocol Stop: 07/19/18 22:01 NOREPINEPHRINE BIT/0.9 % NACL (Levophed 4 Mg/ 250 Ml Ns Premixed) 4 mg in 250 mls @ 15 mls/hr IV .[id number] PRN; Protocol PRN Reason: TITRATE PER MD ORDER Levothyroxine Sodium (Synthroid) 25 mcg PO DAILY RONI Last Admin: 07/10/18 14:21 Dose: Not Given Pantoprazole Sodium (Protonix Ec Tab) 40 mg PO DAILY RONI Last Admin: 07/10/18 14:21 Dose: Not Given Results - Vital Signs Recent Vital Signs: Last Vital Signs Temp 97.9 F 07/10/18 04:59 Pulse 109 H 07/10/18 14:03 Resp 18 07/10/18 14:03 BP 83/69 L 07/10/18 13:19 Pulse Ox 100 07/10/18 13:19 - Labs Result Diagrams: 07/10/18 05:20 07/10/18 05:20 Labs: Laboratory Results - last 24 hr 07/10/18 07/10/18 07/10/18 05:20 05:20 05:25 WBC 13.8 H D RBC 3.70 Hgb 9.4 L Hct 30.3 L MCV 81.9 MCH 25.4 MCHC 31.0 RDW 16.2 H Plt Count 553 H MPV 9.4 Gran % 72.5 H Lymph % (Auto) 15.5 L [place] % (Auto) 9.2 H Eos % (Auto) 2.0 Baso % (Auto) 0.8 Gran # 10.03 H Lymph # (Auto) 2.2 [place] # (Auto) 1.3 H Eos # (Auto) 0.3 Baso # (Auto) 0.11 Neutrophils % (Manual) 57 Band Neutrophils % 3 H Lymphocytes % (Manual) 20 L Monocytes % (Manual) 8 H Eosinophils % (Manual) 2 Basophils % (Manual) 2 H Metamyelocytes % 2 Myelocytes % 6 Platelet Evaluation High Large Platelets Present Poikilocytosis (manual Slight PT INR pCO2 pO2 HCO3 ABG pH ABG Total CO2 ABG O2 Saturation ABG O2 Content ABG Base Excess ABG Hemoglobin ABG Carboxyhemoglobin POC ABG HHb (Measured) ABG Methemoglobin ABG O2 Capacity Hgb O2 Saturation FiO2 Sodium 137 Potassium 4.5 Chloride 106 Carbon Dioxide 21 Anion Gap 15 BUN 42 H Creatinine 2.5 H Est GFR ( Amer) 23 Est GFR (Non-Af Amer) 19 Random Glucose 95 Calcium 8.6 Magnesium 2.0 Total Bilirubin 0.6 AST 16 ALT 19 Alkaline Phosphatase 160 H D Lactate Dehydrogenase 399 Total Creatine Kinase 20 L Troponin I 0.02 D NT-Pro-B Natriuret Pep 6710 H Total Protein 6.3 Albumin 2.6 L Globulin 3.7 Albumin/Globulin Ratio 0.7 L Carcinoembryonic Ag TSH 3rd Generation Influenza Typ A,B (EIA) Negative for flu a/b 07/10/18 07/10/18 07/10/18 05:43 07:00 09:00 WBC RBC Hgb Hct MCV MCH MCHC RDW Plt Count MPV Gran % Lymph % (Auto) [place] % (Auto) Eos % (Auto) Baso % (Auto) Gran # Lymph # (Auto) [place] # (Auto) Eos # (Auto) Baso # (Auto) Neutrophils % (Manual) Band Neutrophils % Lymphocytes % (Manual) Monocytes % (Manual) Eosinophils % (Manual) Basophils % (Manual) Metamyelocytes % Myelocytes % Platelet Evaluation Large Platelets Poikilocytosis (manual PT 97.1 H INR 8.09 H* pCO2 23 L pO2 198.0 H HCO3 20.1 L ABG pH 7.55 H ABG Total CO2 20.8 L ABG O2 Saturation 99.9 H ABG O2 Content 10.7 L ABG Base Excess -1.7 ABG Hemoglobin 7.5 L ABG Carboxyhemoglobin 2.0 H POC ABG HHb (Measured) 0.1 ABG Methemoglobin 0.9 ABG O2 Capacity 10.7 L Hgb O2 Saturation 97.1 FiO2 32.0 Sodium Potassium Chloride Carbon Dioxide Anion Gap BUN Creatinine Est GFR ( Amer) Est GFR (Non-Af Amer) Random Glucose Calcium Magnesium Total Bilirubin AST ALT Alkaline Phosphatase Lactate Dehydrogenase Total Creatine Kinase Troponin I NT-Pro-B Natriuret Pep Total Protein Albumin Globulin Albumin/Globulin Ratio Carcinoembryonic Ag 1.0 TSH 3rd Generation 4.99 H Influenza Typ A,B (EIA)
[2018-07-10] MEDS: NOREPINEPHRINE BIT/0.9 % NACL 4 MG/250 ML BAG IV PRN (17:03)
[2018-07-10 17:22] LABS: BASO # 0.09 K/mm3 (0.0-2.0); BASO % 0.7 % (0.0-3.0); EOS # 0.3 (0.0-0.7); GRAN % 73.8 % (50.0-68.0); HEMOGLOBIN 8.1 g/dL (12.0-16.0); LYMPH # 1.8 (1.2-3.4); LYMPH % 13.2 % (22.0-35.0); MEAN CELL VOLUME 81.3 fl (80.0-105.0); MEAN CORPUSCULAR HEMOGLOBIN 25.7 pg (25.0-35.0); MEAN CORPUSCULAR HGB CONC 31.6 g/dl (31.0-37.0); MEAN PLATELET VOLUME 9.4 fl (7.0-11.0); MONO # 1.4 (0.1-0.6); MONO % 10.3 % (1.0-6.0); PLATELET COUNT 516 10^3/uL (120.0-450.0); RBC 3.15 10^6/uL (3.5-6.1); RED CELL DISTRIBUTION WIDTH 16.1 % (11.5-14.5); WHITE BLOOD COUNT 13.7 10^3/uL (4.5-11.0)
[2018-07-10 17:30] LABS: ALB/GLOB RATIO 0.7 (1.1-1.8)
[2018-07-10 17:38] LABS: ALBUMIN 2.3 g/dL (3.0-4.8)
[2018-07-10 18:36] LABS: ATYPICAL LYMPHOCYTE 2 % (0.0-0.0); BAND 2 % (0-2); LYMPHOCYTE 12 % (22.0-35.0); MONOCYTE 13 % (1.0-6.0); NEUTROPHIL 62 % (50.0-70.0)
[2018-07-10 18:37] LABS: EOSINOPHIL 10 % (0.0-3.0); METAMYELOCYTE 1 %; MYELOCYTE 6 %
--- NOTE | 2018-07-10 19:04 | CARD ---
APPROVED REPORT Date of service: 07/10/2018 EKG Measurement Heart [id number] <Conclusion> Atrial fibrillation with rapid ventricular response ST & T wave abnormality, consider inferior ischemia or digitalis effect Abnormal ECG
--- NOTE | 2018-07-10 19:36 | CON ---
DATE: 07/10/2018 HISTORY OF PRESENT ILLNESS: This is a 73-year-old lady with history of severe pulmonary hypertension with right ventricular failure and diastolic left ventricular dysfunction, atrial fibrillation, COPD, emphysema, diabetes mellitus type 2, morbid obesity, peripheral vascular disease, who presented this time with some shortness of breath and some chest pain for the last few days. It appears that the pain is pleuritic in nature with substernal localization, increased on inspiration and sharp in character. No cough, however, reports subjective fever. The patient also denies any vomiting or nausea. In emergency room, the patient was found to have leukocytosis, acute kidney injury, and atrial fibrillation with RVR. Initially, the patient was thought to be fluid overload and Lasix was given, Cardizem drip was started. However, the patient dropped blood pressure and heart rate did not get better controlled; thus, ICU was called for further management and evaluation. PAST MEDICAL HISTORY: As above. SOCIAL HISTORY: No alcohol or illicit drug abuse. No tobacco or smoking. FAMILY HISTORY: Noncontributory. ALLERGIES: NKDA. MEDICATIONS AT HOME: Midodrine, cyproheptadine, Unasyn, Levemir, Lasix, metformin (the patient reports that she has not been taking Lasix for about a week now due to labile for blood pressure), Flonase, Pulmicort inhaler, Levaquin, warfarin, Protonix. REVIEW OF SYSTEMS: Review of 12-organ system other than mentioned in history of present illness is negative. PHYSICAL EXAMINATION: VITAL SIGNS: Heart rate varies between 120 and 130, irregular; blood pressure 80 to 82 over 40 to 50; respiratory rate 18; oxygen saturation 100% on nasal cannula. ENT: Head and neck, atraumatic. LUNGS: Few crackles bilaterally. HEART: Irregular rate and rhythm. S1, S2 distant. ABDOMEN: Soft, nontender, nondistended. MUSCULOSKELETAL: There is a 2 to 3+ bilateral pedal and ankle edema. SKIN: Moist. PSYCH: The patient is alert, awake, and oriented x3. LABORATORY DATA: WBC 13.8, hemoglobin 9.4, platelet count 553. VBG showed pH 7.55. Sodium 137, potassium 4.5, chloride 106, carbon dioxide 21, BUN 42, creatinine 2.5, glucose 95, AST 16, ALT 19, total bilirubin 0.6, alkaline phosphatase 160. Troponin 0.02. ProBNP is 6710, albumin 2.6. Influenza type A and B rapid test is negative. Chest x-ray showed bilateral fluffy infiltrates. EKG, AFib with RVR ASSESSMENT AND PLAN: This is a 73-year-old lady, who presented with atrial fibrillation with rapid ventricular rate leading to some hemodynamic compromise. Cannot rule out infectious etiology as ignited factor. At present time, the antibiotics and septic workup was initiated. I will stop Cardizem drip and give the patient 0.5 mg of digoxin. The patient appears to be fluid overload and Lasix was given earlier by ER physician. We will get Barnes catheter, and we will monitor urine output. We will make sure that electrolytes are within normal limits. If digoxin-induced better heart rate control did not translate into improved blood pressure, we will start the patient on vasopressin+NE (Rose Marie et al, NERIS 2018). We will get Nephrology consult. We will try to avoid nephrotoxic medication and hyperchloremia. We will maintain mean arterial pressure more than 65. Acute kidney injury may be of several etiology or combination thereof Possibility of cardiorenal syndrome due to severe pulmonary hypertension and right ventricular failure is there, especially provided the patient appears to be fluid overload. Possibility of acute tubular necrosis secondary to sepsis cannot be ruled out as well. ID service is on board, and the patient will be started on antibiotics. We will try to maintain euvolemia, euglycemia, normothermia and oxygen saturation more than 90%. We will continue with deep venous thrombosis and gastrointestinal prophylaxis. We will get procalcitonin, urine culture, blood culture. ccm time 40 min Gigi Sosa MD ANUP
[2018-07-10] MEDS: MEROPENEM 500 MG in NS 500 MG/50 ML BAG IVPB SCH (22:25)
[2018-07-10] MEDS: Linezolid 600 mg in D5W 300 ml 600 MG/300 ML BAG IVPB SCH (22:26)
--- NOTE | 2018-07-10 22:30 | CON ---
DATE OF CONSULTATION: 07/10/2018 The patient is in bed, seen in the emergency room, in Bed 1. CHIEF COMPLAINT: Shortness of breath x1 day duration. HISTORY OF PRESENT ILLNESS: This is a 73-year-old female with super morbid obesity with a BMI of over 70, chronic obstructive lung disease, diabetes mellitus, recent hospitalization, congestive heart failure, coronary artery disease, healthcare-associated pneumonia, history of ESBL E. coli of the lower extremities, chronic lymphedema of the lower extremities, peripheral vascular disease, atrial fibrillation, who was recently discharged from the hospital, now admitted with shortness of breath and concerned about underlying infection. PAST MEDICAL HISTORY: Significant for chronic obstructive lung disease, congestive heart failure, diabetes, coronary artery disease, healthcare-associated pneumonia, peripheral vascular disease, lymphedema, Pseudomonas and E. coli which is ESBL of the lower extremities. PAST SURGICAL HISTORY: Significant for cardiac catheterization and the patient had a PICC line. MEDICATIONS: Reviewed. ALLERGIES: THE PATIENT HAS NO KNOWN ALLERGIES. REVIEW OF SYSTEMS: A 14-point review of systems is performed. The patient has low-grade fevers. There is shortness of breath, minimal cough. No chest pain. No abdominal pain, diarrhea or constipation. PHYSICAL EXAMINATION: GENERAL: The patient is an extremely large person in the emergency room. VITAL SIGNS: Temperature of 97, pulse of 122, respiratory rate of 18, blood pressure is 85/40. HEENT: Unremarkable. NECK: Supple. LUNGS: Have decreased breath sounds. HEART: Normal S1 and S2. ABDOMEN: Soft and nontender. SKIN: Examination of the skin is noted, but the patient is very difficult to examine entirely because of a very large size. There are chronic changes of the lymphedema. LABORATORY EXAMINATION: The patient has a white count of 13,800, hemoglobin of 9, platelets of 553. Coagulation is noted. Chemistries reveal a BUN of 42, creatinine is 2.5, and on discharge creatinine was 1.3. Urinalysis is not done. Serology: Influenza is negative. Microbiology is pending. History of microbiology is reviewed. Chest x-ray is noted to be positive for right lower lobe pneumonia. ASSESSMENT/PLAN: This is a 73-year-old female with super morbid obesity with a BMI of over 70, congestive heart failure, chronic obstructive lung disease, diabetes mellitus, recent hospitalization, atrial fibrillation, peripheral vascular disease, lymphedema, Pseudomonas and ESBL E. coli of the lower extremities, now presenting with tachycardia, hypotension, leukocytosis and dyspnea. #1 is severe sepsis secondary to right healthcare-associated pneumonia with acute kidney injury on top of chronic renal failure with chronic lower extremity lymphedema. We will treat the patient with Zyvox, meropenem and doxy, pending panculture, blood cultures, urine culture, sputum cultures, MRSA screen, procalcitonin and we will make further recommendations. Overall prognosis is quite poor for this patient who is extremely large. Santy Fernandez MD [facility] # [id number]
[2018-07-11] MEDS ORDERED: Silver Sulfadiazine 1% Cream (25 gm) TP ONE (00:54)
[2018-07-11] MEDS: Albuterol-Ipratrop 3 mg / 0.5 (3 ml) UD IH SCH ×5 (01:22→20:44)
[2018-07-11] MEDS ORDERED: Oxycodone/Acetaminophen 5/325 mg Tab PO ONE (01:36)
[2018-07-11 07:25] LABS: HEMOGLOBIN 8.3 g/dL (12.0-16.0); MEAN CELL VOLUME 82.1 fl (80.0-105.0); MEAN CORPUSCULAR HEMOGLOBIN 25.2 pg (25.0-35.0); MEAN CORPUSCULAR HGB CONC 30.7 g/dl (31.0-37.0); MEAN PLATELET VOLUME 9.4 fl (7.0-11.0); RBC 3.29 10^6/uL (3.5-6.1); RED CELL DISTRIBUTION WIDTH 16.2 % (11.5-14.5); WHITE BLOOD COUNT 14.7 10^3/uL (4.5-11.0)
[2018-07-11 07:38] LABS: ALB/GLOB RATIO 0.7 (1.1-1.8); ALBUMIN 2.3 g/dL (3.0-4.8); CALCIUM 8.1 mg/dL (8.4-10.5)
[2018-07-11 07:45] LABS: INR 9.27; PROTHROMBIN TIME 111.5 SECONDS (9.4-12.5)
[2018-07-11] MEDS ORDERED: Phytonadione 10 MG in Sodium Chloride 0.9% 50 ML IV ONE (08:12)
[2018-07-11] MEDS ORDERED: Potassium Chloride 20 mEq ER Tab PO ONE (08:59)
--- NOTE | 2018-07-11 09:38 | PN ---
DATE: 07/11/2018 SUBJECTIVE: She is in Intensive Care Unit. She is awake and alert. She is actually more alert today than yesterday. She is here with her , answered many questions from both of them. There are multiple issues going on. Had severe sepsis, rapid AFib, morbid obesity, CHF, COPD, diabetes, weight loss which is, she is down to 503, she used to be 707 about 2 to 3 months ago. She stopped eating. She is being seen by Renal, Infectious Disease, the supervisor coremaker, GI. She has multiple concerns but today is a better day than yesterday I thought clinically from looking at her and the feels that she is doing little bit better and the patient feels a little bit better, so she is not out of wood, but I will take anything I can get with her. OBJECTIVE: VITAL SIGNS: She has a 97.9 temperature. She has a 93 pulse, 99/52 blood pressure, 12 respiratory rate, 98% O2 sat on oxygen. HEENT: Head: Atraumatic, normocephalic. HEART: Regular rate. LUNGS: Decreased breath sounds bilaterally but clear. ABDOMEN: Morbidly, morbidly, morbidly obese, nontender. Positive bowel sounds. EXTREMITIES: Have+4/4 pitting edema with lymphedema. She has bilateral thigh ulcers which is slowly healing. This is the most I had seen her in a month. She is talking, multiple questions, aware, this is very good for her. MEDICATIONS: She is on doxycycline IV, Drisdol, DuoNebs, iron, Flonase, Levophed, Merrem IV, Nephro-Miguelito, pantoprazole, Synthroid, vasopressin IV and Zyvox IV. LABORATORY DATA: She has a 14.7 white count, it is going up little bit, 8.3 hemoglobin, 27 hematocrit with 538 platelets. Her INR was 9.27 GI, has been taking the Coumadin for AFib, we will hold the Coumadin and will give her some medication to get that down. She has sodium of 137, potassium 3.5, replace potassium. BUN is 37 and 2.4 creatinine, getting better. GFR is 20, sugar is 125, calcium is 8.1. Total bili is 0.5, AST is 22, ALT is 17, alk phos 136, total protein is 5.6. TSH is 4.99, little high. Procalcitonin is 0.37. She is being seen by Renal, Infectious Disease, supervisor coremaker and GI. Will continue aggressive treatment and care. Multiple issues, answered many questions from the patient and also her . Alan Mann DO MTDVivien
[2018-07-11 10:24] LABS: ARTERIAL BLOOD GAS HCO3 21.4 mmol/L (21-28); ARTERIAL BLOOD GAS HEMOGLOBIN 8.7 g/dL (11.7-17.4); ARTERIAL BLOOD GAS O2 CONTENT 11.9 ML/dl (15-23); ARTERIAL BLOOD GAS O2 SAT 99.1 % (95-98); ARTERIAL BLOOD GAS PCO2 33 mm/Hg (35-45); ARTERIAL BLOOD GAS PH 7.42 (7.35-7.45); ARTERIAL BLOOD GAS TCO2 22.4 mmol.L (22-28)
--- NOTE | 2018-07-11 11:14 | US ---
Date of service: 07/11/2018 HISTORY: wt loss COMPARISON: None. TECHNIQUE: Sonographic evaluation of the abdomen. FINDINGS: LIVER: Measures 18.5 cm. Normal echogenicity of the liver parenchyma. No mass. No intrahepatic bile duct dilatation. GALLBLADDER: Unremarkable. No gallstones. COMMON BILE DUCT: Measures 4 mm. No stones. No dilatation. PANCREAS: Incompletely visualized. The pancreatic head region is normal. Body and tail are not visualized RIGHT KIDNEY: Measures 11.0 x 4.4 x 6.1cm. Normal echogenicity. No calculus, mass, or hydronephrosis. Lower pole cyst measuring 2 cm LEFT KIDNEY: Measures 10.0 x 5.6 x 6.1cm. Normal echogenicity. No calculus, mass, or hydronephrosis. 4 cm cyst upper pole SPLEEN: Normal in size and contour. No mass. AORTA: No aneurysmal dilatation. IVC: Unremarkable. OTHER FINDINGS: None. IMPRESSION: No acute findings
[2018-07-11] MEDS ORDERED: Silver Sulfadiazine 1% Cream (25 gm) TP SCH (12:15)
[2018-07-11] MEDS: MEROPENEM 500 MG in NS 500 MG/50 ML BAG IVPB SCH ×2 (12:52→21:19)
[2018-07-11] MEDS: Linezolid 600 mg in D5W 300 ml 600 MG/300 ML BAG IVPB SCH ×2 (12:58→21:21)
[2018-07-11] MEDS: Ergocalciferol 50,000 Intl Units Cap PO SCH (13:15)
[2018-07-11] MEDS: Levothyroxine 25 MCG TAB PO SCH (13:15)
[2018-07-11] MEDS: Pantoprazole 40 mg EC Tab PO SCH (13:15)
[2018-07-11] MEDS: Multivitamin Vitamin B Complex (Nephro-Vite) Tab PO SCH (13:15)
--- NOTE | 2018-07-11 14:00 | CP.CCUPN ---
<Juan Alberto Hill - Last Filed: 07/11/18 15:46> CCU Subjective - Physician Review Subjective (Free Text): Juan Alberto Hill DO, PGY1. ICU progress note for Dr Tejeda Patient seen and examined at bedside. She is AAOx3, in no acute distress. She denies any complaints. She feels better today, able to tolerate her diet. No acute events overnight. He denied chest pain, fever, headache, palpitations. CCU Objective - Vital Signs / Intake & Output Vital Signs (Last 4 hours): Vital Signs Pulse Resp BP Pulse Ox 07/11/18 12:49 95/53 L 07/11/18 12:48 96 H 38 H 07/11/18 12:47 100 H 07/11/18 12:46 111 H 07/11/18 12:45 98 H 21 07/11/18 12:44 106 H 42 H 07/11/18 12:40 103 H 41 H 07/11/18 12:30 100 H 25 H 07/11/18 12:20 124 H 47 H 07/11/18 12:10 117 H 20 07/11/18 12:00 109 H 26 H 07/11/18 11:50 84 15 07/11/18 11:40 92 H 20 07/11/18 11:30 89 30 H 07/11/18 11:20 137 H 80 H 07/11/18 11:10 100 H 23 07/11/18 11:02 123 H 25 H 74/30 L 07/11/18 11:00 134 H 49 H 07/11/18 10:50 99 H 44 H 92 L 07/11/18 10:45 99 H 21 99/55 L 90 L 07/11/18 10:40 105 H 19 81 L 07/11/18 10:32 96 H 36 H 86/54 L 98 07/11/18 10:30 125 H 20 76 L 07/11/18 10:20 113 H 24 100 07/11/18 10:15 99 H 26 H 96/47 L 98 07/11/18 10:10 108 H 107 H 87 L 07/11/18 10:00 105 H 22 91/49 L 85 L Intake and Output (Last 8hrs): Intake & Output 07/10/18 07/11/18 07/11/18 22:59 06:59 14:59 Intake Total 250 Balance 250 Weight 503 lb Intake: IV 250 - Physical Exam Head: Positive for: Atraumatic, Normocephalic Pupils: Positive for: PERRL Extroacular Muscles: Positive for: EOMI Conjunctiva: Positive for: Normal Mouth: Positive for: Moist Mucous Membranes Neck: Positive for: Normal Range of Motion Respiratory/Chest: Positive for: Clear to Auscultation, Good Air Exchange. Negative for: Respiratory Distress, Accessory Muscle Use Cardiovascular: Positive for: Irregular Rhythm, Tachycardic. Negative for: Regular Rate and Rhythm Abdomen: Positive for: Other (Morbidly obese). Negative for: Tenderness, Distention, Peritoneal Signs Back: Positive for: Normal Inspection Upper Extremity: Positive for: Normal Inspection. Negative for: Cyanosis, Edema Lower Extremity: Positive for: Normal Inspection. Negative for: Edema Neurological: Positive for: GCS=15, CN II-XII Intact, Speech Normal Skin: Positive for: Warm, Dry, Normal Color. Negative for: Rashes Psychiatric: Positive for: Alert, Oriented x 3, Normal Insight, Normal Concentration - Medications Active Medications: Active Medications Generic Name Dose Route Start Last Admin Trade Name Freq PRN Reason Stop Dose Admin Albuterol/Ipratropium 3 ml 07/10/18 12:00 07/11/18 13:14 Duoneb 3 Mg/0.5 Mg (3 Ml) Ud IH Not Given Q6 RONI Ergocalciferol 1 cap 07/10/18 16:00 07/11/18 13:15 Drisdol 50,000 Intl Units Cap PO 1 cap Q7D RONI Administration Ferrous Gluconate 324 mg 07/10/18 18:00 07/11/18 13:16 Fergon PO 324 mg TID RONI Administration Fluticasone Propionate 1 actuation 07/10/18 10:00 Flonase MARIAM DAILY RONI Vasopressin 20 units/ Sodium 101 mls @ 9.09 mls/hr 07/10/18 09:30 07/10/18 22:47 Chloride IV 9.09 mls/hr .[id number] RONI Administration Protocol 0.03 U/MIN Doxycycline Hyclate 100 mg/ 100 mls @ 100 mls/hr 07/10/18 10:00 07/11/18 12:54 Sodium Chloride IVPB 100 mls/hr Q12 RONI Administration Protocol Meropenem/Sodium Chloride 500 mg in 50 mls @ 100 mls/hr 07/10/18 22:00 07/11/18 12:52 Merrem Iv 500 Mg/Ns 50 Ml IVPB 07/19/18 22:01 100 mls/hr Q12 RONI Administration Protocol Linezolid 600 mg in 300 mls @ 200 mls/hr 07/10/18 22:00 07/11/18 12:58 Zyvox 600mg/300ml D5w IVPB 07/19/18 22:01 200 mls/hr Q12 RONI Administration Protocol NOREPINEPHRINE BIT/0.9 % NACL 4 mg in 250 mls @ 15 mls/hr 07/10/18 14:39 07/11/18 10:00 Levophed 4 Mg/ 250 Ml Ns Premixed IV Infused .[id number] PRN Titration TITRATE PER MD ORDER Protocol 4 MCG/MIN Levothyroxine Sodium 25 mcg 07/10/18 10:00 07/11/18 13:15 Synthroid PO 25 mcg DAILY RONI Administration Pantoprazole Sodium 40 mg 07/10/18 10:00 07/11/18 13:15 Protonix Ec Tab PO 40 mg DAILY RONI Administration Silver Sulfadiazine 0 ea 07/11/18 12:30 Silvadene 1% TOP Q12H RONI Vitamin B Complex/Vit C/Folic Acid 1 tab 07/11/18 08:00 07/11/18 13:15 Nephro-Adonis PO 1 tab 0800 RONI Administration - Patient Studies Lab Studies: Lab Studies 07/11/18 07/11/18 07/11/18 Range/Units 10:20 07:00 07:00 WBC (4.5-11.0) 10^3/uL RBC (3.5-6.1) 10^6/uL Hgb (12.0-16.0) g/dL Hct (36.0-48.0) % MCV (80.0-105.0) fl MCH (25.0-35.0) pg MCHC (31.0-37.0) g/dl RDW (11.5-14.5) % Plt Count (120.0-450.0) 10^3/uL MPV (7.0-11.0) fl Gran % (50.0-68.0) % Lymph % (Auto) (22.0-35.0) % Garvin % (Auto) (1.0-6.0) % Eos % (Auto) (1.5-5.0) % Baso % (Auto) (0.0-3.0) % Gran # (1.4-6.5) Lymph # (Auto) (1.2-3.4) Garvin # (Auto) (0.1-0.6) Eos # (Auto) (0.0-0.7) Baso # (Auto) (0.0-2.0) K/mm3 Neutrophils % (Manual) (50.0-70.0) % Band Neutrophils % (0-2) % Lymphocytes % (Manual) (22.0-35.0) % Atypical Lymphs % (0.0-0.0) % Monocytes % (Manual) (1.0-6.0) % Eosinophils % (Manual) (0.0-3.0) % Metamyelocytes % % Myelocytes % % PT 111.5 H (9.4-12.5) SECONDS INR 9.27 H* pCO2 33 L (35-45) mm/Hg pO2 94.0 (80-100) mm/Hg HCO3 21.4 (21-28) mmol/L ABG pH 7.42 (7.35-7.45) ABG Total CO2 22.4 (22-28) mmol.L ABG O2 Saturation 99.1 H (95-98) % ABG O2 Content 11.9 L (15-23) ML/dl ABG Base Excess -2.6 L (-2.0-3.0) mmol/L ABG Hemoglobin 8.7 L (11.7-17.4) g/dL ABG Carboxyhemoglobin 1.8 H (0.5-1.5) % POC ABG HHb (Measured) 0.9 (0-5) % ABG Methemoglobin 1.3 (0.0-3.0) % ABG O2 Capacity 12.0 L (16-24) mL/dl Hgb O2 Saturation 96.0 (95.0-98.0) % FiO2 21.0 % Sodium 137 (132-148) mmol/L Potassium 3.5 L (3.6-5.0) mmol/L Chloride 105 (98-107) mmol/L Carbon Dioxide 24 (21-33) mmol/L Anion Gap 11 (10-20) BUN 37 H (7-21) mg/dL Creatinine 2.4 H (0.7-1.2) mg/dl Est GFR ( Amer) 24 Est GFR (Non-Af Amer) 20 POC Glucose (mg/dL) (65-110) mg/dL Random Glucose 125 H (70-110) mg/dL Lactic Acid (0.7-2.1) mmol/L Calcium 8.1 L (8.4-10.5) mg/dL Phosphorus (2.5-4.5) mg/dL Magnesium (1.7-2.2) mg/dL Total Bilirubin 0.5 (0.2-1.3) mg/dL AST 22 (14-36) U/L ALT 17 (7-56) U/L Alkaline Phosphatase 136 H (38-126) U/L Total Protein 5.6 L (5.8-8.3) g/dL Albumin 2.3 L (3.0-4.8) g/dL Globulin 3.3 gm/dL Albumin/Globulin Ratio 0.7 L (1.1-1.8) CA 19-9 Antigen (0-37) U/mL CA 125 Antigen (0-35) U/mL Procalcitonin (0.19-0.49) NG/ML 07/11/18 07/10/18 07/10/18 Range/Units 07:00 21:59 17:00 WBC 14.7 H (4.5-11.0) 10^3/uL RBC 3.29 L (3.5-6.1) 10^6/uL Hgb 8.3 L (12.0-16.0) g/dL Hct 27.0 L (36.0-48.0) % MCV 82.1 (80.0-105.0) fl MCH 25.2 (25.0-35.0) pg MCHC 30.7 L (31.0-37.0) g/dl RDW 16.2 H (11.5-14.5) % Plt Count 538 H (120.0-450.0) 10^3/uL MPV 9.4 (7.0-11.0) fl Gran % (50.0-68.0) % Lymph % (Auto) (22.0-35.0) % Garvin % (Auto) (1.0-6.0) % Eos % (Auto) (1.5-5.0) % Baso % (Auto) (0.0-3.0) % Gran # (1.4-6.5) Lymph # (Auto) (1.2-3.4) Garvin # (Auto) (0.1-0.6) Eos # (Auto) (0.0-0.7) Baso # (Auto) (0.0-2.0) K/mm3 Neutrophils % (Manual) (50.0-70.0) % Band Neutrophils % (0-2) % Lymphocytes % (Manual) (22.0-35.0) % Atypical Lymphs % (0.0-0.0) % Monocytes % (Manual) (1.0-6.0) % Eosinophils % (Manual) (0.0-3.0) % Metamyelocytes % % Myelocytes % % PT (9.4-12.5) SECONDS INR pCO2 (35-45) mm/Hg pO2 (80-100) mm/Hg HCO3 (21-28) mmol/L ABG pH (7.35-7.45) ABG Total CO2 (22-28) mmol.L ABG O2 Saturation (95-98) % ABG O2 Content (15-23) ML/dl ABG Base Excess (-2.0-3.0) mmol/L ABG Hemoglobin (11.7-17.4) g/dL ABG Carboxyhemoglobin (0.5-1.5) % POC ABG HHb (Measured) (0-5) % ABG Methemoglobin (0.0-3.0) % ABG O2 Capacity (16-24) mL/dl Hgb O2 Saturation (95.0-98.0) % FiO2 % Sodium (132-148) mmol/L Potassium (3.6-5.0) mmol/L Chloride (98-107) mmol/L Carbon Dioxide (21-33) mmol/L Anion Gap (10-20) BUN (7-21) mg/dL Creatinine (0.7-1.2) mg/dl Est GFR ( Amer) Est GFR (Non-Af Amer) POC Glucose (mg/dL) 113 H (65-110) mg/dL Random Glucose (70-110) mg/dL Lactic Acid 1.2 (0.7-2.1) mmol/L Calcium (8.4-10.5) mg/dL Phosphorus (2.5-4.5) mg/dL Magnesium (1.7-2.2) mg/dL Total Bilirubin (0.2-1.3) mg/dL AST (14-36) U/L ALT (7-56) U/L Alkaline Phosphatase (38-126) U/L Total Protein (5.8-8.3) g/dL Albumin (3.0-4.8) g/dL Globulin gm/dL Albumin/Globulin Ratio (1.1-1.8) CA 19-9 Antigen (0-37) U/mL CA 125 Antigen (0-35) U/mL Procalcitonin (0.19-0.49) NG/ML 07/10/18 07/10/18 07/10/18 Range/Units 17:00 17:00 09:40 WBC 13.7 H (4.5-11.0) 10^3/uL RBC 3.15 L (3.5-6.1) 10^6/uL Hgb 8.1 L (12.0-16.0) g/dL Hct 25.6 L (36.0-48.0) % MCV 81.3 (80.0-105.0) fl MCH 25.7 (25.0-35.0) pg MCHC 31.6 (31.0-37.0) g/dl RDW 16.1 H (11.5-14.5) % Plt Count 516 H (120.0-450.0) 10^3/uL MPV 9.4 (7.0-11.0) fl Gran % 73.8 H (50.0-68.0) % Lymph % (Auto) 13.2 L (22.0-35.0) % Garvin % (Auto) 10.3 H (1.0-6.0) % Eos % (Auto) 2.0 (1.5-5.0) % Baso % (Auto) 0.7 (0.0-3.0) % Gran # 10.10 H (1.4-6.5) Lymph # (Auto) 1.8 (1.2-3.4) Garvin # (Auto) 1.4 H (0.1-0.6) Eos # (Auto) 0.3 (0.0-0.7) Baso # (Auto) 0.09 (0.0-2.0) K/mm3 Neutrophils % (Manual) 62 (50.0-70.0) % Band Neutrophils % 2 (0-2) % Lymphocytes % (Manual) 12 L (22.0-35.0) % Atypical Lymphs % 2 H (0.0-0.0) % Monocytes % (Manual) 13 H (1.0-6.0) % Eosinophils % (Manual) 10 H (0.0-3.0) % Metamyelocytes % 1 % Myelocytes % 6 % PT (9.4-12.5) SECONDS INR pCO2 (35-45) mm/Hg pO2 (80-100) mm/Hg HCO3 (21-28) mmol/L ABG pH (7.35-7.45) ABG Total CO2 (22-28) mmol.L ABG O2 Saturation (95-98) % ABG O2 Content (15-23) ML/dl ABG Base Excess (-2.0-3.0) mmol/L ABG Hemoglobin (11.7-17.4) g/dL ABG Carboxyhemoglobin (0.5-1.5) % POC ABG HHb (Measured) (0-5) % ABG Methemoglobin (0.0-3.0) % ABG O2 Capacity (16-24) mL/dl Hgb O2 Saturation (95.0-98.0) % FiO2 % Sodium 136 (132-148) mmol/L Potassium 3.6 (3.6-5.0) mmol/L Chloride 104 (98-107) mmol/L Carbon Dioxide 24 (21-33) mmol/L Anion Gap 11 (10-20) BUN 40 H (7-21) mg/dL Creatinine 2.5 H (0.7-1.2) mg/dl Est GFR ( Amer) 23 Est GFR (Non-Af Amer) 19 POC Glucose (mg/dL) (65-110) mg/dL Random Glucose 104 (70-110) mg/dL Lactic Acid (0.7-2.1) mmol/L Calcium 8.0 L (8.4-10.5) mg/dL Phosphorus 3.8 (2.5-4.5) mg/dL Magnesium 1.9 (1.7-2.2) mg/dL Total Bilirubin 0.5 (0.2-1.3) mg/dL AST 19 (14-36) U/L ALT 18 (7-56) U/L Alkaline Phosphatase 137 H (38-126) U/L Total Protein 5.6 L (5.8-8.3) g/dL Albumin 2.3 L (3.0-4.8) g/dL Globulin 3.3 gm/dL Albumin/Globulin Ratio 0.7 L (1.1-1.8) CA 19-9 Antigen (0-37) U/mL CA 125 Antigen (0-35) U/mL Procalcitonin 0.37 (0.19-0.49) NG/ML 07/10/18 Range/Units 09:00 WBC (4.5-11.0) 10^3/uL RBC (3.5-6.1) 10^6/uL Hgb (12.0-16.0) g/dL Hct (36.0-48.0) % MCV (80.0-105.0) fl MCH (25.0-35.0) pg MCHC (31.0-37.0) g/dl RDW (11.5-14.5) % Plt Count (120.0-450.0) 10^3/uL MPV (7.0-11.0) fl Gran % (50.0-68.0) % Lymph % (Auto) (22.0-35.0) % Garvin % (Auto) (1.0-6.0) % Eos % (Auto) (1.5-5.0) % Baso % (Auto) (0.0-3.0) % Gran # (1.4-6.5) Lymph # (Auto) (1.2-3.4) Garvin # (Auto) (0.1-0.6) Eos # (Auto) (0.0-0.7) Baso # (Auto) (0.0-2.0) K/mm3 Neutrophils % (Manual) (50.0-70.0) % Band Neutrophils % (0-2) % Lymphocytes % (Manual) (22.0-35.0) % Atypical Lymphs % (0.0-0.0) % Monocytes % (Manual) (1.0-6.0) % Eosinophils % (Manual) (0.0-3.0) % Metamyelocytes % % Myelocytes % % PT (9.4-12.5) SECONDS INR pCO2 (35-45) mm/Hg pO2 (80-100) mm/Hg HCO3 (21-28) mmol/L ABG pH (7.35-7.45) ABG Total CO2 (22-28) mmol.L ABG O2 Saturation (95-98) % ABG O2 Content (15-23) ML/dl ABG Base Excess (-2.0-3.0) mmol/L ABG Hemoglobin (11.7-17.4) g/dL ABG Carboxyhemoglobin (0.5-1.5) % POC ABG HHb (Measured) (0-5) % ABG Methemoglobin (0.0-3.0) % ABG O2 Capacity (16-24) mL/dl Hgb O2 Saturation (95.0-98.0) % FiO2 % Sodium (132-148) mmol/L Potassium (3.6-5.0) mmol/L Chloride (98-107) mmol/L Carbon Dioxide (21-33) mmol/L Anion Gap (10-20) BUN (7-21) mg/dL Creatinine (0.7-1.2) mg/dl Est GFR ( Amer) Est GFR (Non-Af Amer) POC Glucose (mg/dL) (65-110) mg/dL Random Glucose (70-110) mg/dL Lactic Acid (0.7-2.1) mmol/L Calcium (8.4-10.5) mg/dL Phosphorus (2.5-4.5) mg/dL Magnesium (1.7-2.2) mg/dL Total Bilirubin (0.2-1.3) mg/dL AST (14-36) U/L ALT (7-56) U/L Alkaline Phosphatase (38-126) U/L Total Protein (5.8-8.3) g/dL Albumin (3.0-4.8) g/dL Globulin gm/dL Albumin/Globulin Ratio (1.1-1.8) CA 19-9 Antigen 83.6 H (0-37) U/mL CA 125 Antigen < 5.5 (0-35) U/mL Procalcitonin (0.19-0.49) NG/ML Laboratory Results - last 24 hr 07/10/18 07/10/18 07/10/18 09:00 09:40 17:00 WBC 13.7 H RBC 3.15 L Hgb 8.1 L Hct 25.6 L MCV 81.3 MCH 25.7 MCHC 31.6 RDW 16.1 H Plt Count 516 H MPV 9.4 Gran % 73.8 H Lymph % (Auto) 13.2 L Garvin % (Auto) 10.3 H Eos % (Auto) 2.0 Baso % (Auto) 0.7 Gran # 10.10 H Lymph # (Auto) 1.8 Garvin # (Auto) 1.4 H Eos # (Auto) 0.3 Baso # (Auto) 0.09 Neutrophils % (Manual) 62 Band Neutrophils % 2 Lymphocytes % (Manual) 12 L Atypical Lymphs % 2 H Monocytes % (Manual) 13 H Eosinophils % (Manual) 10 H Metamyelocytes % 1 Myelocytes % 6 PT INR pCO2 pO2 HCO3 ABG pH ABG Total CO2 ABG O2 Saturation ABG O2 Content ABG Base Excess ABG Hemoglobin ABG Carboxyhemoglobin POC ABG HHb (Measured) ABG Methemoglobin ABG O2 Capacity Hgb O2 Saturation FiO2 Sodium Potassium Chloride Carbon Dioxide Anion Gap BUN Creatinine Est GFR ( Amer) Est GFR (Non-Af Amer) POC Glucose (mg/dL) Random Glucose Lactic Acid Calcium Phosphorus Magnesium Total Bilirubin AST ALT Alkaline Phosphatase Total Protein Albumin Globulin Albumin/Globulin Ratio CA 19-9 Antigen 83.6 H CA 125 Antigen < 5.5 Procalcitonin 0.37 07/10/18 07/10/18 07/10/18 17:00 17:00 21:59 WBC RBC Hgb Hct MCV MCH MCHC RDW Plt Count MPV Gran % Lymph % (Auto) Garvin % (Auto) Eos % (Auto) Baso % (Auto) Gran # Lymph # (Auto) Garvin # (Auto) Eos # (Auto) Baso # (Auto) Neutrophils % (Manual) Band Neutrophils % Lymphocytes % (Manual) Atypical Lymphs % Monocytes % (Manual) Eosinophils % (Manual) Metamyelocytes % Myelocytes % PT INR pCO2 pO2 HCO3 ABG pH ABG Total CO2 ABG O2 Saturation ABG O2 Content ABG Base Excess ABG Hemoglobin ABG Carboxyhemoglobin POC ABG HHb (Measured) ABG Methemoglobin ABG O2 Capacity Hgb O2 Saturation FiO2 Sodium 136 Potassium 3.6 Chloride 104 Carbon Dioxide 24 Anion Gap 11 BUN 40 H Creatinine 2.5 H Est GFR ( Amer) 23 Est GFR (Non-Af Amer) 19 POC Glucose (mg/dL) 113 H Random Glucose 104 Lactic Acid 1.2 Calcium 8.0 L Phosphorus 3.8 Magnesium 1.9 Total Bilirubin 0.5 AST 19 ALT 18 Alkaline Phosphatase 137 H Total Protein 5.6 L Albumin 2.3 L Globulin 3.3 Albumin/Globulin Ratio 0.7 L CA 19-9 Antigen CA 125 Antigen Procalcitonin 07/11/18 07/11/18 07/11/18 07:00 07:00 07:00 WBC 14.7 H RBC 3.29 L Hgb 8.3 L Hct 27.0 L MCV 82.1 MCH 25.2 MCHC 30.7 L RDW 16.2 H Plt Count 538 H MPV 9.4 Gran % Lymph % (Auto) Garvin % (Auto) Eos % (Auto) Baso % (Auto) Gran # Lymph # (Auto) Garvin # (Auto) Eos # (Auto) Baso # (Auto) Neutrophils % (Manual) Band Neutrophils % Lymphocytes % (Manual) Atypical Lymphs % Monocytes % (Manual) Eosinophils % (Manual) Metamyelocytes % Myelocytes % PT 111.5 H INR 9.27 H* pCO2 pO2 HCO3 ABG pH ABG Total CO2 ABG O2 Saturation ABG O2 Content ABG Base Excess ABG Hemoglobin ABG Carboxyhemoglobin POC ABG HHb (Measured) ABG Methemoglobin ABG O2 Capacity Hgb O2 Saturation FiO2 Sodium 137 Potassium 3.5 L Chloride 105 Carbon Dioxide 24 Anion Gap 11 BUN 37 H Creatinine 2.4 H Est GFR ( Amer) 24 Est GFR (Non-Af Amer) 20 POC Glucose (mg/dL) Random Glucose 125 H Lactic Acid Calcium 8.1 L Phosphorus Magnesium Total Bilirubin 0.5 AST 22 ALT 17 Alkaline Phosphatase 136 H Total Protein 5.6 L Albumin 2.3 L Globulin 3.3 Albumin/Globulin Ratio 0.7 L CA 19-9 Antigen CA 125 Antigen Procalcitonin 07/11/18 10:20 WBC RBC Hgb Hct MCV MCH MCHC RDW Plt Count MPV Gran % Lymph % (Auto) Garvin % (Auto) Eos % (Auto) Baso % (Auto) Gran # Lymph # (Auto) Garvin # (Auto) Eos # (Auto) Baso # (Auto) Neutrophils % (Manual) Band Neutrophils % Lymphocytes % (Manual) Atypical Lymphs % Monocytes % (Manual) Eosinophils % (Manual) Metamyelocytes % Myelocytes % PT INR pCO2 33 L pO2 94.0 HCO3 21.4 ABG pH 7.42 ABG Total CO2 22.4 ABG O2 Saturation 99.1 H ABG O2 Content 11.9 L ABG Base Excess -2.6 L ABG Hemoglobin 8.7 L ABG Carboxyhemoglobin 1.8 H POC ABG HHb (Measured) 0.9 ABG Methemoglobin 1.3 ABG O2 Capacity 12.0 L Hgb O2 Saturation 96.0 FiO2 21.0 Sodium Potassium Chloride Carbon Dioxide Anion Gap BUN Creatinine Est GFR ( Amer) Est GFR (Non-Af Amer) POC Glucose (mg/dL) Random Glucose Lactic Acid Calcium Phosphorus Magnesium Total Bilirubin AST ALT Alkaline Phosphatase Total Protein Albumin Globulin Albumin/Globulin Ratio CA 19-9 Antigen CA 125 Antigen Procalcitonin Critical Care Progress Note - Nutrition Nutrition: Nutrition Category Date Time Status Consistent Carbohydrate [DIET] Diets 07/10/18 Breakfast Ordered Assessment/Plan - Assessment and Plan (Free Text) Assessment: 73 y/o female with multiple co-morbidities include morbid obesity (BMI 68) CHF, Afib, COPD, DM2, and severe b/l LE edema/lymphedema admitted to ICU for sepsis and CHF exacerbation. Plan: Neuro: -AAOx3 -Maintain normothermia CVS: -h/o CHF, LE edema/lymphedema, PVD -Afib with RVR: one dose of digoxin given -supratherapeutic INR 9.7. vitamin K 10mg IV given -BNP 6710 -Trop 0.02 x1 -Continue vasopressin -Continue levophed (titrated from 4 to 3 mcg/min ) -BP 119/58 HR 93 -d/c warfarin, lasix -cardio consulted (dr Turk) ID: -leukocytosis, hypotension, tachycadria, tachypnea-positive SIRS on admission. Responding to therapy -sepsis likely due to wound infection/UTI. h/o ESBL in LE -f/u blood, urine, sputum cultures -procal 0.37 -f/u lactate -continue abx cefepime, doxycycline, zyvox as per ID -ID following (dr White) GI: -Dysphagia to solid and liquid, significant weight loss. r/o abdominal malignancy -abd/pelvis U/S: no acute finding -CT can not be done due to overweight -PT/INR 111.5/9.27 vitamin K 10mg IV given. warfarin held -bilirubin 0.6 -albumin 2.6 -AST/ALT normal -Zantac and Maalox PRN -Miralax daily for constipation -GI consulted (dr Steele): high risk for anesthesia and endoscopic evaluation given body habitus, medical optimization. Heme/onc: -chronic anemia -H/H 9.4/30.3 (was 11.1/34.1 4 weeks ago) -no signs of bleeding -weight loss of 200 lb in 3 month -significant weight loss, dysphagia, malaise, muscle wasting concerning for malignancy -CA 125, CEA ordered -CA19-9 elevated at 83.6 Renal/: -CRIS on CKD likely due to hypovolemia -BUN/Cr 42/2.5 compared to 24/0.8 on last admission few weeks ago -GFR 19 -hypokalemia, K 3.5 Potassium given. f/u K level -avoid nephrotoxic drugs -UA ordered -Monitor I&O -replete lytes as needed -continue Nutri-adonis, dristol Resp: -In no respiratory distress -recent admission due to severe sepsis due to HCAP, COPD exacerbation, and Pseudomonas/ESBL skin infection -CXR: no active infilterate -AB.42/33/94/21.4 improving -Flu A/B negative -Duoneb prn -Maintain O2 sat >90% -O2 NC PRN Endo: -hypothyroidism. continue home med synthroid -TSH:: 4.99 Nutrition: -Poor appetite, dysphasia for 3 month -Dietian consult -soft diet Prophylaxis: GI ppx: protonix Case reviewed and plan discussed with attending Dr Sheila Hill, DO, PGY1 <Gigi Sosa B - Last Filed: 07/11/18 16:26> CCU Objective - Vital Signs / Intake & Output Vital Signs (Last 4 hours): Vital Signs Pulse Resp BP Pulse Ox 07/11/18 16:11 86 15 82/40 L 07/11/18 15:58 82 07/11/18 15:50 90 L 07/11/18 15:45 83 17 80/36 L 07/11/18 15:40 82 13 07/11/18 15:31 89 13 91/45 L 07/11/18 15:30 103 H 28 H 07/11/18 15:20 85 14 07/11/18 15:15 82 14 85/42 L 07/11/18 15:10 88 14 07/11/18 15:01 97 H 22 96/61 L 07/11/18 15:00 103 H 36 H 07/11/18 14:59 80/40 L 07/11/18 14:50 92 H 22 07/11/18 14:46 92 H 18 68/38 L 07/11/18 14:40 100 H 15 07/11/18 14:32 107 H 43 H 158/77 H 07/11/18 14:30 118 H 30 H 07/11/18 14:20 95 H 17 07/11/18 14:15 95 H 18 173/88 H 07/11/18 14:10 97 H 17 07/11/18 14:00 103 H 07/11/18 13:50 131 H 24 07/11/18 13:45 108 H 26 H 91/77 L 07/11/18 13:40 105 H 46 H 07/11/18 13:32 93 H 25 H 86/57 L 07/11/18 13:30 104 H 21 07/11/18 13:20 101 H 26 H 07/11/18 13:15 122 H 20 106/97 H 07/11/18 13:10 105 H 32 H 07/11/18 13:00 124 H 97/46 L 07/11/18 12:50 108 H 47 H 07/11/18 12:49 95/53 L 07/11/18 12:48 96 H 38 H 07/11/18 12:47 100 H 07/11/18 12:46 111 H 07/11/18 12:45 98 H 21 07/11/18 12:44 106 H 42 H 07/11/18 12:40 103 H 41 H 07/11/18 12:30 100 H 25 H Intake and Output (Last 8hrs): Intake & Output 07/11/18 07/11/18 07/11/18 06:59 14:59 22:59 Intake Total 250 100 Balance 250 100 Weight 503 lb Intake: IV 250 Oral 100 - Medications Active Medications: Active Medications Generic Name Dose Route Start Last Admin Trade Name Freq PRN Reason Stop Dose Admin Albuterol/Ipratropium 3 ml 07/10/18 12:00 07/11/18 14:55 Duoneb 3 Mg/0.5 Mg (3 Ml) Ud IH Not Given Q6 RONI Diltiazem HCl 60 mg 07/11/18 18:00 Cardizem PO TID RONI Ergocalciferol 1 cap 07/10/18 16:00 07/11/18 13:15 Drisdol 50,000 Intl Units Cap PO 1 cap Q7D RONI Administration Ferrous Gluconate 324 mg 07/10/18 18:00 07/11/18 14:55 Fergon PO Not Given TID RONI Fluticasone Propionate 1 actuation 07/10/18 10:00 07/11/18 14:54 Flonase MARIAM 1 spr DAILY RONI Administration Furosemide 40 mg 07/12/18 10:00 Lasix IVP DAILY RONI Vasopressin 20 units/ Sodium 101 mls @ 9.09 mls/hr 07/10/18 09:30 07/11/18 14:59 Chloride IV 9.09 mls/hr .[id number] RONI Administration Protocol 0.03 U/MIN Doxycycline Hyclate 100 mg/ 100 mls @ 100 mls/hr 07/10/18 10:00 07/11/18 12:54 Sodium Chloride IVPB 100 mls/hr Q12 RONI Administration Protocol Meropenem/Sodium Chloride 500 mg in 50 mls @ 100 mls/hr 07/10/18 22:00 07/11/18 12:52 Merrem Iv 500 Mg/Ns 50 Ml IVPB 07/19/18 22:01 100 mls/hr Q12 RONI Administration Protocol Linezolid 600 mg in 300 mls @ 200 mls/hr 07/10/18 22:00 07/11/18 12:58 Zyvox 600mg/300ml D5w IVPB 07/19/18 22:01 200 mls/hr Q12 RONI Administration Protocol NOREPINEPHRINE BIT/0.9 % NACL 4 mg in 250 mls @ 15 mls/hr 07/10/18 14:39 07/11/18 10:00 Levophed 4 Mg/ 250 Ml Ns Premixed IV Infused .[id number] PRN Titration TITRATE PER MD ORDER Protocol 4 MCG/MIN Levothyroxine Sodium 25 mcg 07/10/18 10:00 07/11/18 13:15 Synthroid PO 25 mcg DAILY RONI Administration Midodrine 10 mg 07/11/18 18:00 Proamatine PO TID RONI Pantoprazole Sodium 40 mg 07/10/18 10:00 07/11/18 13:15 Protonix Ec Tab PO 40 mg DAILY RONI Administration Silver Sulfadiazine 0 ea 07/11/18 12:30 07/11/18 14:57 Silvadene 1% TOP 1 applic Q12H RONI Administration Vitamin B Complex/Vit C/Folic Acid 1 tab 07/11/18 08:00 07/11/18 13:15 Nephro-Adonis PO 1 tab 0800 RONI Administration - Patient Studies Lab Studies: Lab Studies 07/11/18 07/11/18 07/11/18 Range/Units 14:50 10:20 07:00 WBC (4.5-11.0) 10^3/uL RBC (3.5-6.1) 10^6/uL Hgb (12.0-16.0) g/dL Hct (36.0-48.0) % MCV (80.0-105.0) fl MCH (25.0-35.0) pg MCHC (31.0-37.0) g/dl RDW (11.5-14.5) % Plt Count (120.0-450.0) 10^3/uL MPV (7.0-11.0) fl Gran % (50.0-68.0) % Lymph % (Auto) (22.0-35.0) % Garvin % (Auto) (1.0-6.0) % Eos % (Auto) (1.5-5.0) % Baso % (Auto) (0.0-3.0) % Gran # (1.4-6.5) Lymph # (Auto) (1.2-3.4) Garvin # (Auto) (0.1-0.6) Eos # (Auto) (0.0-0.7) Baso # (Auto) (0.0-2.0) K/mm3 Neutrophils % (Manual) (50.0-70.0) % Band Neutrophils % (0-2) % Lymphocytes % (Manual) (22.0-35.0) % Atypical Lymphs % (0.0-0.0) % Monocytes % (Manual) (1.0-6.0) % Eosinophils % (Manual) (0.0-3.0) % Metamyelocytes % % Myelocytes % % PT 111.5 H (9.4-12.5) SECONDS INR 9.27 H* pCO2 33 L (35-45) mm/Hg pO2 94.0 (80-100) mm/Hg HCO3 21.4 (21-28) mmol/L ABG pH 7.42 (7.35-7.45) ABG Total CO2 22.4 (22-28) mmol.L ABG O2 Saturation 99.1 H (95-98) % ABG O2 Content 11.9 L (15-23) ML/dl ABG Base Excess -2.6 L (-2.0-3.0) mmol/L ABG Hemoglobin 8.7 L (11.7-17.4) g/dL ABG Carboxyhemoglobin 1.8 H (0.5-1.5) % POC ABG HHb (Measured) 0.9 (0-5) % ABG Methemoglobin 1.3 (0.0-3.0) % ABG O2 Capacity 12.0 L (16-24) mL/dl Hgb O2 Saturation 96.0 (95.0-98.0) % FiO2 21.0 % Sodium (132-148) mmol/L Potassium (3.6-5.0) mmol/L Chloride (98-107) mmol/L Carbon Dioxide (21-33) mmol/L Anion Gap (10-20) BUN (7-21) mg/dL Creatinine (0.7-1.2) mg/dl Est GFR ( Amer) Est GFR (Non-Af Amer) POC Glucose (mg/dL) (65-110) mg/dL Random Glucose (70-110) mg/dL Lactic Acid (0.7-2.1) mmol/L Calcium (8.4-10.5) mg/dL Phosphorus (2.5-4.5) mg/dL Magnesium (1.7-2.2) mg/dL Total Bilirubin (0.2-1.3) mg/dL AST (14-36) U/L ALT (7-56) U/L Alkaline Phosphatase (38-126) U/L Total Protein (5.8-8.3) g/dL Albumin (3.0-4.8) g/dL Globulin gm/dL Albumin/Globulin Ratio (1.1-1.8) CA 19-9 Antigen (0-37) U/mL CA 125 Antigen (0-35) U/mL Procalcitonin (0.19-0.49) NG/ML Urine Color Yellow (YELLOW) Urine Appearance Cloudy (CLEAR) Urine pH 6.0 (4.7-8.0) Ur Specific [place] 1.020 (1.005-1.035) Urine Protein Trace H (<30 mg/dL) mg/dL Urine Glucose (UA) Negative (NEGATIVE) mg/dL Urine Ketones Negative (NEGATIVE) mg/dL Urine Blood Negative (NEGATIVE) Urine Nitrate Negative (NEGATIVE) Urine Bilirubin Negative (NEGATIVE) Urine Urobilinogen 0.2 (<1 E.U./dL) E.U./dL Ur Leukocyte Esterase Small H (NEGATIVE) Jose/uL Urine RBC 1 - 3 (0-2) /hpf Urine WBC 5 - 10 (0-6) /hpf Ur Epithelial Cells 6 - 8 (0-5) /hpf Urine Bacteria Few (NEG) Urine Other Uyeast 07/11/18 07/11/18 07/10/18 Range/Units 07:00 07:00 21:59 WBC 14.7 H (4.5-11.0) 10^3/uL RBC 3.29 L (3.5-6.1) 10^6/uL Hgb 8.3 L (12.0-16.0) g/dL Hct 27.0 L (36.0-48.0) % MCV 82.1 (80.0-105.0) fl MCH 25.2 (25.0-35.0) pg MCHC 30.7 L (31.0-37.0) g/dl RDW 16.2 H (11.5-14.5) % Plt Count 538 H (120.0-450.0) 10^3/uL MPV 9.4 (7.0-11.0) fl Gran % (50.0-68.0) % Lymph % (Auto) (22.0-35.0) % Garvin % (Auto) (1.0-6.0) % Eos % (Auto) (1.5-5.0) % Baso % (Auto) (0.0-3.0) % Gran # (1.4-6.5) Lymph # (Auto) (1.2-3.4) Garvin # (Auto) (0.1-0.6) Eos # (Auto) (0.0-0.7) Baso # (Auto) (0.0-2.0) K/mm3 Neutrophils % (Manual) (50.0-70.0) % Band Neutrophils % (0-2) % Lymphocytes % (Manual) (22.0-35.0) % Atypical Lymphs % (0.0-0.0) % Monocytes % (Manual) (1.0-6.0) % Eosinophils % (Manual) (0.0-3.0) % Metamyelocytes % % Myelocytes % % PT (9.4-12.5) SECONDS INR pCO2 (35-45) mm/Hg pO2 (80-100) mm/Hg HCO3 (21-28) mmol/L ABG pH (7.35-7.45) ABG Total CO2 (22-28) mmol.L ABG O2 Saturation (95-98) % ABG O2 Content (15-23) ML/dl ABG Base Excess (-2.0-3.0) mmol/L ABG Hemoglobin (11.7-17.4) g/dL ABG Carboxyhemoglobin (0.5-1.5) % POC ABG HHb (Measured) (0-5) % ABG Methemoglobin (0.0-3.0) % ABG O2 Capacity (16-24) mL/dl Hgb O2 Saturation (95.0-98.0) % FiO2 % Sodium 137 (132-148) mmol/L Potassium 3.5 L (3.6-5.0) mmol/L Chloride 105 (98-107) mmol/L Carbon Dioxide 24 (21-33) mmol/L Anion Gap 11 (10-20) BUN 37 H (7-21) mg/dL Creatinine 2.4 H (0.7-1.2) mg/dl Est GFR ( Amer) 24 Est GFR (Non-Af Amer) 20 POC Glucose (mg/dL) 113 H (65-110) mg/dL Random Glucose 125 H (70-110) mg/dL Lactic Acid (0.7-2.1) mmol/L Calcium 8.1 L (8.4-10.5) mg/dL Phosphorus (2.5-4.5) mg/dL Magnesium (1.7-2.2) mg/dL Total Bilirubin 0.5 (0.2-1.3) mg/dL AST 22 (14-36) U/L ALT 17 (7-56) U/L Alkaline Phosphatase 136 H (38-126) U/L Total Protein 5.6 L (5.8-8.3) g/dL Albumin 2.3 L (3.0-4.8) g/dL Globulin 3.3 gm/dL Albumin/Globulin Ratio 0.7 L (1.1-1.8) CA 19-9 Antigen (0-37) U/mL CA 125 Antigen (0-35) U/mL Procalcitonin (0.19-0.49) NG/ML Urine Color (YELLOW) Urine Appearance (CLEAR) Urine pH (4.7-8.0) Ur Specific [place] (1.005-1.035) Urine Protein (<30 mg/dL) mg/dL Urine Glucose (UA) (NEGATIVE) mg/dL Urine Ketones (NEGATIVE) mg/dL Urine Blood (NEGATIVE) Urine Nitrate (NEGATIVE) Urine Bilirubin (NEGATIVE) Urine Urobilinogen (<1 E.U./dL) E.U./dL Ur Leukocyte Esterase (NEGATIVE) Jose/uL Urine RBC (0-2) /hpf Urine WBC (0-6) /hpf Ur Epithelial Cells (0-5) /hpf Urine Bacteria (NEG) Urine Other 11/27/18 11/27/18 11/27/18 Range/Units 17:00 17:00 17:00 WBC 13.7 H (4.5-11.0) 10^3/uL RBC 3.15 L (3.5-6.1) 10^6/uL Hgb 8.1 L (12.0-16.0) g/dL Hct 25.6 L (36.0-48.0) % MCV 81.3 (80.0-105.0) fl MCH 25.7 (25.0-35.0) pg MCHC 31.6 (31.0-37.0) g/dl RDW 16.1 H (11.5-14.5) % Plt Count 516 H (120.0-450.0) 10^3/uL MPV 9.4 (7.0-11.0) fl Gran % 73.8 H (50.0-68.0) % Lymph % (Auto) 13.2 L (22.0-35.0) % Garvin % (Auto) 10.3 H (1.0-6.0) % Eos % (Auto) 2.0 (1.5-5.0) % Baso % (Auto) 0.7 (0.0-3.0) % Gran # 10.10 H (1.4-6.5) Lymph # (Auto) 1.8 (1.2-3.4) Garvin # (Auto) 1.4 H (0.1-0.6) Eos # (Auto) 0.3 (0.0-0.7) Baso # (Auto) 0.09 (0.0-2.0) K/mm3 Neutrophils % (Manual) 62 (50.0-70.0) % Band Neutrophils % 2 (0-2) % Lymphocytes % (Manual) 12 L (22.0-35.0) % Atypical Lymphs % 2 H (0.0-0.0) % Monocytes % (Manual) 13 H (1.0-6.0) % Eosinophils % (Manual) 10 H (0.0-3.0) % Metamyelocytes % 1 % Myelocytes % 6 % PT (9.4-12.5) SECONDS INR pCO2 (35-45) mm/Hg pO2 (80-100) mm/Hg HCO3 (21-28) mmol/L ABG pH (7.35-7.45) ABG Total CO2 (22-28) mmol.L ABG O2 Saturation (95-98) % ABG O2 Content (15-23) ML/dl ABG Base Excess (-2.0-3.0) mmol/L ABG Hemoglobin (11.7-17.4) g/dL ABG Carboxyhemoglobin (0.5-1.5) % POC ABG HHb (Measured) (0-5) % ABG Methemoglobin (0.0-3.0) % ABG O2 Capacity (16-24) mL/dl Hgb O2 Saturation (95.0-98.0) % FiO2 % Sodium 136 (132-148) mmol/L Potassium 3.6 (3.6-5.0) mmol/L Chloride 104 (98-107) mmol/L Carbon Dioxide 24 (21-33) mmol/L Anion Gap 11 (10-20) BUN 40 H (7-21) mg/dL Creatinine 2.5 H (0.7-1.2) mg/dl Est GFR ( Amer) 23 Est GFR (Non-Af Amer) 19 POC Glucose (mg/dL) (65-110) mg/dL Random Glucose 104 (70-110) mg/dL Lactic Acid 1.2 (0.7-2.1) mmol/L Calcium 8.0 L (8.4-10.5) mg/dL Phosphorus 3.8 (2.5-4.5) mg/dL Magnesium 1.9 (1.7-2.2) mg/dL Total Bilirubin 0.5 (0.2-1.3) mg/dL AST 19 (14-36) U/L ALT 18 (7-56) U/L Alkaline Phosphatase 137 H (38-126) U/L Total Protein 5.6 L (5.8-8.3) g/dL Albumin 2.3 L (3.0-4.8) g/dL Globulin 3.3 gm/dL Albumin/Globulin Ratio 0.7 L (1.1-1.8) CA 19-9 Antigen (0-37) U/mL CA 125 Antigen (0-35) U/mL Procalcitonin (0.19-0.49) NG/ML Urine Color (YELLOW) Urine Appearance (CLEAR) Urine pH (4.7-8.0) Ur Specific [place] (1.005-1.035) Urine Protein (<30 mg/dL) mg/dL Urine Glucose (UA) (NEGATIVE) mg/dL Urine Ketones (NEGATIVE) mg/dL Urine Blood (NEGATIVE) Urine Nitrate (NEGATIVE) Urine Bilirubin (NEGATIVE) Urine Urobilinogen (<1 E.U./dL) E.U./dL Ur Leukocyte Esterase (NEGATIVE) Jose/uL Urine RBC (0-2) /hpf Urine WBC (0-6) /hpf Ur Epithelial Cells (0-5) /hpf Urine Bacteria (NEG) Urine Other 07/10/18 07/10/18 Range/Units 09:40 09:00 WBC (4.5-11.0) 10^3/uL RBC (3.5-6.1) 10^6/uL Hgb (12.0-16.0) g/dL Hct (36.0-48.0) % MCV (80.0-105.0) fl MCH (25.0-35.0) pg MCHC (31.0-37.0) g/dl RDW (11.5-14.5) % Plt Count (120.0-450.0) 10^3/uL MPV (7.0-11.0) fl Gran % (50.0-68.0) % Lymph % (Auto) (22.0-35.0) % Garvin % (Auto) (1.0-6.0) % Eos % (Auto) (1.5-5.0) % Baso % (Auto) (0.0-3.0) % Gran # (1.4-6.5) Lymph # (Auto) (1.2-3.4) Garvin # (Auto) (0.1-0.6) Eos # (Auto) (0.0-0.7) Baso # (Auto) (0.0-2.0) K/mm3 Neutrophils % (Manual) (50.0-70.0) % Band Neutrophils % (0-2) % Lymphocytes % (Manual) (22.0-35.0) % Atypical Lymphs % (0.0-0.0) % Monocytes % (Manual) (1.0-6.0) % Eosinophils % (Manual) (0.0-3.0) % Metamyelocytes % % Myelocytes % % PT (9.4-12.5) SECONDS INR pCO2 (35-45) mm/Hg pO2 (80-100) mm/Hg HCO3 (21-28) mmol/L ABG pH (7.35-7.45) ABG Total CO2 (22-28) mmol.L ABG O2 Saturation (95-98) % ABG O2 Content (15-23) ML/dl ABG Base Excess (-2.0-3.0) mmol/L ABG Hemoglobin (11.7-17.4) g/dL ABG Carboxyhemoglobin (0.5-1.5) % POC ABG HHb (Measured) (0-5) % ABG Methemoglobin (0.0-3.0) % ABG O2 Capacity (16-24) mL/dl Hgb O2 Saturation (95.0-98.0) % FiO2 % Sodium (132-148) mmol/L Potassium (3.6-5.0) mmol/L Chloride (98-107) mmol/L Carbon Dioxide (21-33) mmol/L Anion Gap (10-20) BUN (7-21) mg/dL Creatinine (0.7-1.2) mg/dl Est GFR ( Amer) Est GFR (Non-Af Amer) POC Glucose (mg/dL) (65-110) mg/dL Random Glucose (70-110) mg/dL Lactic Acid (0.7-2.1) mmol/L Calcium (8.4-10.5) mg/dL Phosphorus (2.5-4.5) mg/dL Magnesium (1.7-2.2) mg/dL Total Bilirubin (0.2-1.3) mg/dL AST (14-36) U/L ALT (7-56) U/L Alkaline Phosphatase (38-126) U/L Total Protein (5.8-8.3) g/dL Albumin (3.0-4.8) g/dL Globulin gm/dL Albumin/Globulin Ratio (1.1-1.8) CA 19-9 Antigen 83.6 H (0-37) U/mL CA 125 Antigen < 5.5 (0-35) U/mL Procalcitonin 0.37 (0.19-0.49) NG/ML Urine Color (YELLOW) Urine Appearance (CLEAR) Urine pH (4.7-8.0) Ur Specific [place] (1.005-1.035) Urine Protein (<30 mg/dL) mg/dL Urine Glucose (UA) (NEGATIVE) mg/dL Urine Ketones (NEGATIVE) mg/dL Urine Blood (NEGATIVE) Urine Nitrate (NEGATIVE) Urine Bilirubin (NEGATIVE) Urine Urobilinogen (<1 E.U./dL) E.U./dL Ur Leukocyte Esterase (NEGATIVE) Jose/uL Urine RBC (0-2) /hpf Urine WBC (0-6) /hpf Ur Epithelial Cells (0-5) /hpf Urine Bacteria (NEG) Urine Other Laboratory Results - last 24 hr 07/10/18 07/10/18 07/10/18 09:00 09:40 17:00 WBC 13.7 H RBC 3.15 L Hgb 8.1 L Hct 25.6 L MCV 81.3 MCH 25.7 MCHC 31.6 RDW 16.1 H Plt Count 516 H MPV 9.4 Gran % 73.8 H Lymph % (Auto) 13.2 L Garvin % (Auto) 10.3 H Eos % (Auto) 2.0 Baso % (Auto) 0.7 Gran # 10.10 H Lymph # (Auto) 1.8 Garvin # (Auto) 1.4 H Eos # (Auto) 0.3 Baso # (Auto) 0.09 Neutrophils % (Manual) 62 Band Neutrophils % 2 Lymphocytes % (Manual) 12 L Atypical Lymphs % 2 H Monocytes % (Manual) 13 H Eosinophils % (Manual) 10 H Metamyelocytes % 1 Myelocytes % 6 PT INR pCO2 pO2 HCO3 ABG pH ABG Total CO2 ABG O2 Saturation ABG O2 Content ABG Base Excess ABG Hemoglobin ABG Carboxyhemoglobin POC ABG HHb (Measured) ABG Methemoglobin ABG O2 Capacity Hgb O2 Saturation FiO2 Sodium Potassium Chloride Carbon Dioxide Anion Gap BUN Creatinine Est GFR ( Amer) Est GFR (Non-Af Amer) POC Glucose (mg/dL) Random Glucose Lactic Acid Calcium Phosphorus Magnesium Total Bilirubin AST ALT Alkaline Phosphatase Total Protein Albumin Globulin Albumin/Globulin Ratio CA 19-9 Antigen 83.6 H CA 125 Antigen < 5.5 Procalcitonin 0.37 Urine Color Urine Appearance Urine pH Ur Specific [place] Urine Protein Urine Glucose (UA) Urine Ketones Urine Blood Urine Nitrate Urine Bilirubin Urine Urobilinogen Ur Leukocyte Esterase Urine RBC Urine WBC Ur Epithelial Cells Urine Bacteria Urine Other 07/10/18 07/10/18 07/10/18 17:00 17:00 21:59 WBC RBC Hgb Hct MCV MCH MCHC RDW Plt Count MPV Gran % Lymph % (Auto) Garvin % (Auto) Eos % (Auto) Baso % (Auto) Gran # Lymph # (Auto) Garvin # (Auto) Eos # (Auto) Baso # (Auto) Neutrophils % (Manual) Band Neutrophils % Lymphocytes % (Manual) Atypical Lymphs % Monocytes % (Manual) Eosinophils % (Manual) Metamyelocytes % Myelocytes % PT INR pCO2 pO2 HCO3 ABG pH ABG Total CO2 ABG O2 Saturation ABG O2 Content ABG Base Excess ABG Hemoglobin ABG Carboxyhemoglobin POC ABG HHb (Measured) ABG Methemoglobin ABG O2 Capacity Hgb O2 Saturation FiO2 Sodium 136 Potassium 3.6 Chloride 104 Carbon Dioxide 24 Anion Gap 11 BUN 40 H Creatinine 2.5 H Est GFR ( Amer) 23 Est GFR (Non-Af Amer) 19 POC Glucose (mg/dL) 113 H Random Glucose 104 Lactic Acid 1.2 Calcium 8.0 L Phosphorus 3.8 Magnesium 1.9 Total Bilirubin 0.5 AST 19 ALT 18 Alkaline Phosphatase 137 H Total Protein 5.6 L Albumin 2.3 L Globulin 3.3 Albumin/Globulin Ratio 0.7 L CA 19-9 Antigen CA 125 Antigen Procalcitonin Urine Color Urine Appearance Urine pH Ur Specific [place] Urine Protein Urine Glucose (UA) Urine Ketones Urine Blood Urine Nitrate Urine Bilirubin Urine Urobilinogen Ur Leukocyte Esterase Urine RBC Urine WBC Ur Epithelial Cells Urine Bacteria Urine Other 07/11/18 07/11/18 07/11/18 07:00 07:00 07:00 WBC 14.7 H RBC 3.29 L Hgb 8.3 L Hct 27.0 L MCV 82.1 MCH 25.2 MCHC 30.7 L RDW 16.2 H Plt Count 538 H MPV 9.4 Gran % Lymph % (Auto) Garvin % (Auto) Eos % (Auto) Baso % (Auto) Gran # Lymph # (Auto) Garvin # (Auto) Eos # (Auto) Baso # (Auto) Neutrophils % (Manual) Band Neutrophils % Lymphocytes % (Manual) Atypical Lymphs % Monocytes % (Manual) Eosinophils % (Manual) Metamyelocytes % Myelocytes % PT 111.5 H INR 9.27 H* pCO2 pO2 HCO3 ABG pH ABG Total CO2 ABG O2 Saturation ABG O2 Content ABG Base Excess ABG Hemoglobin ABG Carboxyhemoglobin POC ABG HHb (Measured) ABG Methemoglobin ABG O2 Capacity Hgb O2 Saturation FiO2 Sodium 137 Potassium 3.5 L Chloride 105 Carbon Dioxide 24 Anion Gap 11 BUN 37 H Creatinine 2.4 H Est GFR ( Amer) 24 Est GFR (Non-Af Amer) 20 POC Glucose (mg/dL) Random Glucose 125 H Lactic Acid Calcium 8.1 L Phosphorus Magnesium Total Bilirubin 0.5 AST 22 ALT 17 Alkaline Phosphatase 136 H Total Protein 5.6 L Albumin 2.3 L Globulin 3.3 Albumin/Globulin Ratio 0.7 L CA 19-9 Antigen CA 125 Antigen Procalcitonin Urine Color Urine Appearance Urine pH Ur Specific [place] Urine Protein Urine Glucose (UA) Urine Ketones Urine Blood Urine Nitrate Urine Bilirubin Urine Urobilinogen Ur Leukocyte Esterase Urine RBC Urine WBC Ur Epithelial Cells Urine Bacteria Urine Other 07/11/18 07/11/18 10:20 14:50 WBC RBC Hgb Hct MCV MCH MCHC RDW Plt Count MPV Gran % Lymph % (Auto) Garvin % (Auto) Eos % (Auto) Baso % (Auto) Gran # Lymph # (Auto) Garvin # (Auto) Eos # (Auto) Baso # (Auto) Neutrophils % (Manual) Band Neutrophils % Lymphocytes % (Manual) Atypical Lymphs % Monocytes % (Manual) Eosinophils % (Manual) Metamyelocytes % Myelocytes % PT INR pCO2 33 L pO2 94.0 HCO3 21.4 ABG pH 7.42 ABG Total CO2 22.4 ABG O2 Saturation 99.1 H ABG O2 Content 11.9 L ABG Base Excess -2.6 L ABG Hemoglobin 8.7 L ABG Carboxyhemoglobin 1.8 H POC ABG HHb (Measured) 0.9 ABG Methemoglobin 1.3 ABG O2 Capacity 12.0 L Hgb O2 Saturation 96.0 FiO2 21.0 Sodium Potassium Chloride Carbon Dioxide Anion Gap BUN Creatinine Est GFR ( Amer) Est GFR (Non-Af Amer) POC Glucose (mg/dL) Random Glucose Lactic Acid Calcium Phosphorus Magnesium Total Bilirubin AST ALT Alkaline Phosphatase Total Protein Albumin Globulin Albumin/Globulin Ratio CA 19-9 Antigen CA 125 Antigen Procalcitonin Urine Color Yellow Urine Appearance Cloudy Urine pH 6.0 Ur Specific [place] 1.020 Urine Protein Trace H Urine Glucose (UA) Negative Urine Ketones Negative Urine Blood Negative Urine Nitrate Negative Urine Bilirubin Negative Urine Urobilinogen 0.2 Ur Leukocyte Esterase Small H Urine RBC 1 - 3 Urine WBC 5 - 10 Ur Epithelial Cells 6 - 8 Urine Bacteria Few Urine Other Uyeast Critical Care Progress Note - Nutrition Nutrition: Nutrition Category Date Time Status Consistent Carbohydrate [DIET] Diets 07/10/18 Breakfast Ordered Attending/Attestation - Attestation I have personally seen and examined this patient.: Yes I have fully participated in the care of the patient.: Yes I have reviewed all pertinent clinical information: Yes Notes (Text): 07/11/18 16:[address] Sosa note
[2018-07-11] MEDS: Fluticasone Nasal 50 mcg/Spray NAS SCH ×2 (14:54)
[2018-07-11] MEDS: Silver Sulfadiazine 1% Cream (400 gm) TOP SCH (14:57)
--- NOTE | 2018-07-11 15:04 | CP.PCM.PN ---
<Marcio Moon - Last Filed: 07/11/18 14:58> Subjective - Date & Time of Evaluation Date of Evaluation: 07/11/18 Time of Evaluation: 10:15 - Subjective Subjective: Infectious disease progress note for Dr. Trujillo/Dr. Fernandez service - Gay Moon PGY3 Patient seen and examined at bedside. No acute overnight events or new compla ints. Tolerating diet. Denies cp, palptiations, SOB. Objective - Vital Signs/Intake and Output Vital Signs (last 24 hours): Temp Pulse Resp BP Pulse Ox 97.9 F 96 H 38 H 95/53 L 92 L 07/10/18 04:59 07/11/18 12:48 07/11/18 12:48 07/11/18 12:49 07/11/18 10:50 Intake and Output: 07/11/18 07/11/18 06:59 18:59 Intake Total 250 Balance 250 - Medications Medications: Current Medications Albuterol/Ipratropium (Duoneb 3 Mg/0.5 Mg (3 Ml) Ud) 3 ml IH Q6 RONI Last Admin: 07/11/18 13:14 Dose: Not Given Diltiazem HCl (Cardizem) 60 mg PO TID RONI Ergocalciferol (Drisdol 50,000 Intl Units Cap) 1 cap PO Q7D RONI Last Admin: 07/11/18 13:15 Dose: 1 cap Ferrous Gluconate (Fergon) 324 mg PO TID RONI Last Admin: 07/11/18 14:17 Dose: Not Given Fluticasone Propionate (Flonase) 1 actuation MARIAM DAILY [facility] Furosemide (Lasix) 40 mg IVP DAILY RONI Vasopressin 20 units/ Sodium (Chloride) 101 mls @ 9.09 mls/hr IV .Q11H7M ORNI; Protocol Last Admin: 07/10/18 22:47 Dose: 9.09 mls/hr Doxycycline Hyclate 100 mg/ (Sodium Chloride) 100 mls @ 100 mls/hr IVPB Q12 RONI; Protocol Last Admin: 07/11/18 12:54 Dose: 100 mls/hr Meropenem/Sodium Chloride (Merrem Iv 500 Mg/Ns 50 Ml) 500 mg in 50 mls @ 100 mls/hr IVPB Q12 RONI; Protocol Stop: 07/19/18 22:01 Last Admin: 07/11/18 12:52 Dose: 100 mls/hr Linezolid (Zyvox 600mg/300ml D5w) 600 mg in 300 mls @ 200 mls/hr IVPB Q12 RONI; Protocol Stop: 07/19/18 22:01 Last Admin: 07/11/18 12:58 Dose: 200 mls/hr NOREPINEPHRINE BIT/0.9 % NACL (Levophed 4 Mg/ 250 Ml Ns Premixed) 4 mg in 250 mls @ 15 mls/hr IV .[id number] PRN; Protocol PRN Reason: TITRATE PER MD ORDER Last Titration: 07/11/18 10:00 Dose: Infused Levothyroxine Sodium (Synthroid) 25 mcg PO DAILY [facility] Last Admin: 07/11/18 13:15 Dose: 25 mcg Pantoprazole Sodium (Protonix Ec Tab) 40 mg PO DAILY [facility] Last Admin: 07/11/18 13:15 Dose: 40 mg Silver Sulfadiazine (Silvadene 1%) 0 ea TOP Q12H [facility] Vitamin B Complex/Vit C/Folic Acid (Nephro-Miguelito) 1 tab PO 0800 [facility] Last Admin: 07/11/18 13:15 Dose: 1 tab - Labs Labs: 07/11/18 07:00 07/11/18 07:00 PT 111.5 SECONDS (9.4-12.5) H 07/11/18 07:00 INR 9.27 H* 07/11/18 07:00 - Constitutional Appears: No Acute Distress - Head Exam Head Exam: ATRAUMATIC, NORMOCEPHALIC - Eye Exam Eye Exam: EOMI, PERRL - ENT Exam ENT Exam: Mucous Membranes Moist - Respiratory Exam Respiratory Exam: Decreased Breath Sounds. absent: Rales, Rhonchi, Wheezes - Cardiovascular Exam Cardiovascular Exam: +S1, +S2. absent: Clicks, Gallop, Rubs - GI/Abdominal Exam GI & Abdominal Exam: Soft. absent: Distended, Firm, Guarding, Rigid, Tenderness, Rebound - Neurological Exam Neurological Exam: Alert, Awake, Oriented x3 - Psychiatric Exam Psychiatric exam: Normal Affect, Normal Mood - Skin Skin Exam: Dry, Intact, Normal Color, Warm Assessment and Plan - Assessment and Plan (Free Text) Assessment: 73yo female with history of morbid obesity, CHF, COPD, DM, afib on anticoagulation, PVD, lymphedema presents with severe sepsis secondary to healthcare-associated pneumonia in the setting of acute kidney injury 1. Severe sepsis secondary to HCAP 2. Acute on chronic kidney injury 3. Hx of ESBL ecoli and pseudomonas of the lower extremities 4. CHF, chronic 5. COPD, chronic 6. DM type 2 7. morbid obesity -Continue with meropenem, zyvox and doxycyline for broad spectrum abx coverage -Pancultures are pending including MRSA screen -Procalcitonin negative -CXR revealed borderline infiltrate in right suprahilar space -EKG reviewed -Further abx management as per results of culture/sensitivities Patient seen and case discussed/reviewed with attending, Dr. Trujillo <Brandan Trujillo - Last Filed: 07/11/18 16:53> Objective - Vital Signs/Intake and Output Vital Signs (last 24 hours): Temp Pulse Resp BP Pulse Ox 97.9 F 86 15 82/40 L 90 L 07/10/18 04:59 07/11/18 16:11 07/11/18 16:11 07/11/18 16:11 07/11/18 15:50 Intake and Output: 07/11/18 07/11/18 06:59 18:59 Intake Total 350 Balance 350 - Medications Medications: Current Medications Albuterol/Ipratropium (Duoneb 3 Mg/0.5 Mg (3 Ml) Ud) 3 ml IH Q6 [facility] Last Admin: 07/11/18 14:55 Dose: Not Given Diltiazem HCl (Cardizem) 60 mg PO TID [facility] Ergocalciferol (Drisdol 50,000 Intl Units Cap) 1 cap PO Q7D [facility] Last Admin: 07/11/18 13:15 Dose: 1 cap Ferrous Gluconate (Fergon) 324 mg PO TID [facility] Last Admin: 07/11/18 14:55 Dose: Not Given Fluticasone Propionate (Flonase) 1 actuation MARIAM DAILY [facility] Last Admin: 07/11/18 14:54 Dose: 1 spr Furosemide (Lasix) 40 mg IVP DAILY [facility] Vasopressin 20 units/ Sodium (Chloride) 101 mls @ 9.09 mls/hr IV .Q11H7M [facility]; Protocol Last Admin: 07/11/18 14:59 Dose: 9.09 mls/hr Doxycycline Hyclate 100 mg/ (Sodium Chloride) 100 mls @ 100 mls/hr IVPB Q12 RONI; Protocol Last Admin: 07/11/18 12:54 Dose: 100 mls/hr Meropenem/Sodium Chloride (Merrem Iv 500 Mg/Ns 50 Ml) 500 mg in 50 mls @ 100 mls/hr IVPB Q12 RONI; Protocol Stop: 07/19/18 22:01 Last Admin: 07/11/18 12:52 Dose: 100 mls/hr Linezolid (Zyvox 600mg/300ml D5w) 600 mg in 300 mls @ 200 mls/hr IVPB Q12 [facility]; Protocol Stop: 07/19/18 22:01 Last Admin: 07/11/18 12:58 Dose: 200 mls/hr NOREPINEPHRINE BIT/0.9 % NACL (Levophed 4 Mg/ 250 Ml Ns Premixed) 4 mg in 250 mls @ 15 mls/hr IV .[id number] PRN; Protocol PRN Reason: TITRATE PER MD ORDER Last Titration: 07/11/18 10:00 Dose: Infused Levothyroxine Sodium (Synthroid) 25 mcg PO DAILY [facility]ONI Last Admin: 07/11/18 13:15 Dose: 25 mcg Midodrine (Proamatine) 10 mg PO TID RONI Pantoprazole Sodium (Protonix Ec Tab) 40 mg PO DAILY RONI Last Admin: 07/11/18 13:15 Dose: 40 mg Silver Sulfadiazine (Silvadene 1%) 0 ea TOP Q12H RONI Last Admin: 07/11/18 14:57 Dose: 1 applic Vitamin B Complex/Vit C/Folic Acid (Nephro-Miguelito) 1 tab PO 0800 RONI Last Admin: 07/11/18 13:15 Dose: 1 tab - Labs Labs: 07/11/18 07:00 07/11/18 07:00 PT 111.5 SECONDS (9.4-12.5) H 07/11/18 07:00 INR 9.27 H* 07/11/18 07:00 Assessment and Plan - Assessment and Plan (Free Text) Assessment: Infectious diseases Attending Physician Attestation Patient seen and examined, discussed with medical laboratory technician. I have reviewed the patient's history of present illness, past medical, social, personal and family histories, pertinent physical exam findings, course so far in this hospital admission, pertinent laboratory and imaging results. I agree with the above findings, assessment and plan. In addition, will Zyvox, Merrem and Doxycycline day 2 for probable lower lobe HCAP. Follow up cultures, MRSA nasal screen and will continue to monitor clinically.
[2018-07-11 15:06] LABS: URINE BILIRUBIN NEGATIVE (NEGATIVE); URINE BLOOD NEGATIVE (NEGATIVE); URINE GLUCOSE (UA) NEGATIVE (NEGATIVE); URINE LEUKOCYTE ESTERASE SMALL Leu/uL (NEGATIVE); URINE PROTEIN TRACE mg/dL (<30 mg/dL); URINE UROBILINOGEN 0.2 E.U./dL (<1 E.U./dL)
[2018-07-11 15:07] LABS: URINE APPEARANCE CLOUDY (CLEAR); URINE COLOR YELLOW (YELLOW)
--- NOTE | 2018-07-11 15:08 | CP.PCM.PN ---
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 morbid obesity left kidney cyst Plan No acute need for renal replacement therapy at this time. Maintain hemodynamics stable. Avoid hypotension. Patient not on ACEI/ARB due to recent CRIS and low BP. but on a fib rate control meds. vasopressin drip as per ICU. Monitor Input/Output, daily weights and renal function with basic metabolic tank pumper panelboard dig level started iron 324 mg TID and MVI daily and weekly Vit D Dose meds/antibiotics for reduced GFR. Avoid fleets enema/magnesium based laxatives. Avoid nephrotoxins/NSAIDs/ iodinated contrast (unless needed emergently) Glycemic control Further work up/management as per primary team Thanks for allowing me to participate in care of your patient. Will follow patient with you. Please call if any Qs. had d/w team. 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 seen for CRIS with cr 0.6 at baseline and 1.3 at d/c. pt came with chest pain and SOB. Denies OTC/herbal meds or NSAIDs No recent iodinated contrast exposure. Noted obvious episodes of low sBP (80- 90s). reports chronic legs swelling. not aware about kidney disease in past. ROS: Cardiovascular: No chest pain. Pulmonary: improved chronic shortness of breath Gastrointestinal: denies abdominal pain No nausea. No vomiting. Genitourinary: No pain while urinating. Denies blood in urine. All other negative except as mentioned in HPI. has chronic legs swelling Physical Examination: General Appearance: Comfortable, in no acute respiratory distress, co-operative. morbidly obese ++ Vitals reviewed and noted as below Head; Atraumatic, normocephalic ENT: no ulcers no thrush. Tongue is midline. Oropharynx: no rash or ulcers. EYES: Pupils are equal, round and reactive to light accommodation. Eye muscles and extraocular movement intact. Sclera is anicteric. Neck; supple no lymphadenopathy, no thyromegaly or bruit Lungs: Increased respiratory rate/effort. Breath sounds bilateral equal and clear Heart: Normal rate. s1s2 normal. No rub or gallop. Extremities: 2-3+ edema. No varicose veins Neurological: Patient is alert, awake and oriented to person, place and time. No focal deficit. Strength bilateral appropriate and equal Skin: Warm and dry. Normal turgor. No rash. Palpitation: Normal elasticity for age Abdomen: Abdomen is soft. Bowel sounds +. There is no abdominal tenderness, no guarding/rigidity no organomegaly Psych: normal insight and normal affect/mood MSK: no joint tenderness or swelling. Digits and nails normal, no deformity : kidney or bladder not palpable Labs/imaging reviewed. Past medical history, past surgical history, family history, social history, allergy reviewed and noted as below Family hx: no hx of CKD. Rest non-contributory Echo; normal lvef, severe MR/TR/LA renal imaging: left kidney cyst TSAT/Ferritin 12/356, SPEP/DILSHAD neg and normal FLC assay Vit D <12.8 PTH 286 urine alb/cr 126 mg/g Objective - Vital Signs/Intake and Output Vital Signs (last 24 hours): Temp Pulse Resp BP Pulse Ox 97.9 F 96 H 38 H 80/40 L 92 L 07/10/18 04:59 07/11/18 12:48 07/11/18 12:48 07/11/18 14:59 07/11/18 10:50 Intake and Output: 07/11/18 07/11/18 06:59 18:59 Intake Total 250 Balance 250 - Medications Medications: Current Medications Albuterol/Ipratropium (Duoneb 3 Mg/0.5 Mg (3 Ml) Ud) 3 ml IH Q6 [facility] Last Admin: 07/11/18 14:55 Dose: Not Given Diltiazem HCl (Cardizem) 60 mg PO TID [facility] Ergocalciferol (Drisdol 50,000 Intl Units Cap) 1 cap PO Q7D [facility] Last Admin: 07/11/18 13:15 Dose: 1 cap Ferrous Gluconate (Fergon) 324 mg PO TID [facility] Last Admin: 07/11/18 14:55 Dose: Not Given Fluticasone Propionate (Flonase) 1 actuation MARIAM DAILY [facility] Last Admin: 07/11/18 14:54 Dose: 1 spr Furosemide (Lasix) 40 mg IVP DAILY [facility] Vasopressin 20 units/ Sodium (Chloride) 101 mls @ 9.09 mls/hr IV .Q11H7M [facility]; Protocol Last Admin: 07/11/18 14:59 Dose: 9.09 mls/hr Doxycycline Hyclate 100 mg/ (Sodium Chloride) 100 mls @ 100 mls/hr IVPB Q12 [facility]; Protocol Last Admin: 07/11/18 12:54 Dose: 100 mls/hr Meropenem/Sodium Chloride (Merrem Iv 500 Mg/Ns 50 Ml) 500 mg in 50 mls @ 100 mls/hr IVPB Q12 [facility]; Protocol Stop: 07/19/18 22:01 Last Admin: 07/11/18 12:52 Dose: 100 mls/hr Linezolid (Zyvox 600mg/300ml D5w) 600 mg in 300 mls @ 200 mls/hr IVPB Q12 [facility]; Protocol Stop: 07/19/18 22:01 Last Admin: 07/11/18 12:58 Dose: 200 mls/hr NOREPINEPHRINE BIT/0.9 % NACL (Levophed 4 Mg/ 250 Ml Ns Premixed) 4 mg in 250 mls @ 15 mls/hr IV .[id number] PRN; Protocol PRN Reason: TITRATE PER MD ORDER Last Titration: 07/11/18 10:00 Dose: Infused Levothyroxine Sodium (Synthroid) 25 mcg PO DAILY [facility] Last Admin: 07/11/18 13:15 Dose: 25 mcg Pantoprazole Sodium (Protonix Ec Tab) 40 mg PO DAILY [facility] Last Admin: 07/11/18 13:15 Dose: 40 mg Silver Sulfadiazine (Silvadene 1%) 0 ea TOP Q12H [facility] Last Admin: 07/11/18 14:57 Dose: 1 applic Vitamin B Complex/Vit C/Folic Acid (Nephro-Miguelito) 1 tab PO 0800 [facility] Last Admin: 07/11/18 13:15 Dose: 1 tab - Labs Labs: 07/11/18 07:00 07/11/18 07:00 PT 111.5 SECONDS (9.4-12.5) H 07/11/18 07:00 INR 9.27 H* 07/11/18 07:00
--- NOTE | 2018-07-11 15:10 | CP.PCM.PN ---
<Lena Johnson - Last Filed: 07/11/18 15:05> Subjective - Date & Time of Evaluation Date of Evaluation: 07/11/18 Time of Evaluation: 15:06 - Subjective Subjective: Gastroenterology Fellow/PGY6 Progress Note Patient feels much better today. Notes improvement in epigastric discomfort and acid reflux. Admits to multiple loose stools yesterday. A 12-point review of systems negative except for as above. Objective - Vital Signs/Intake and Output Vital Signs (last 24 hours): Temp Pulse Resp BP Pulse Ox 97.9 F 96 H 38 H 80/40 L 92 L 07/10/18 04:59 07/11/18 12:48 07/11/18 12:48 07/11/18 14:59 07/11/18 10:50 Intake and Output: 07/11/18 07/11/18 06:59 18:59 Intake Total 250 Balance 250 - Medications Medications: Current Medications Albuterol/Ipratropium (Duoneb 3 Mg/0.5 Mg (3 Ml) Ud) 3 ml IH Q6 [facility] Last Admin: 07/11/18 14:55 Dose: Not Given Diltiazem HCl (Cardizem) 60 mg PO TID [facility] Ergocalciferol (Drisdol 50,000 Intl Units Cap) 1 cap PO Q7D [facility] Last Admin: 07/11/18 13:15 Dose: 1 cap Ferrous Gluconate (Fergon) 324 mg PO TID [facility] Last Admin: 07/11/18 14:55 Dose: Not Given Fluticasone Propionate (Flonase) 1 actuation MARIAM DAILY [facility] Last Admin: 07/11/18 14:54 Dose: 1 spr Furosemide (Lasix) 40 mg IVP DAILY [facility] Vasopressin 20 units/ Sodium (Chloride) 101 mls @ 9.09 mls/hr IV .Q11H7M [facility]; Protocol Last Admin: 07/11/18 14:59 Dose: 9.09 mls/hr Doxycycline Hyclate 100 mg/ (Sodium Chloride) 100 mls @ 100 mls/hr IVPB Q12 [facility]; Protocol Last Admin: 07/11/18 12:54 Dose: 100 mls/hr Meropenem/Sodium Chloride (Merrem Iv 500 Mg/Ns 50 Ml) 500 mg in 50 mls @ 100 mls/hr IVPB Q12 [facility]; Protocol Stop: 12/06/18 22:01 Last Admin: 07/11/18 12:52 Dose: 100 mls/hr Linezolid (Zyvox 600mg/300ml D5w) 600 mg in 300 mls @ 200 mls/hr IVPB Q12 [facility]; Protocol Stop: 07/19/18 22:01 Last Admin: 07/11/18 12:58 Dose: 200 mls/hr NOREPINEPHRINE BIT/0.9 % NACL (Levophed 4 Mg/ 250 Ml Ns Premixed) 4 mg in 250 mls @ 15 mls/hr IV .[id number] PRN; Protocol PRN Reason: TITRATE PER MD ORDER Last Titration: 07/11/18 10:00 Dose: Infused Levothyroxine Sodium (Synthroid) 25 mcg PO DAILY [facility] Last Admin: 07/11/18 13:15 Dose: 25 mcg Pantoprazole Sodium (Protonix Ec Tab) 40 mg PO DAILY [facility] Last Admin: 07/11/18 13:15 Dose: 40 mg Silver Sulfadiazine (Silvadene 1%) 0 ea TOP Q12H [facility] Last Admin: 07/11/18 14:57 Dose: 1 applic Vitamin B Complex/Vit C/Folic Acid (Nephro-Miguelito) 1 tab PO 0800 [facility] Last Admin: 07/11/18 13:15 Dose: 1 tab - Labs Labs: 07/11/18 07:00 07/11/18 07:00 PT 111.5 SECONDS (9.4-12.5) H 07/11/18 07:00 INR 9.27 H* 07/11/18 07:00 - Constitutional Appears: Non-toxic, No Acute Distress - Head Exam Head Exam: ATRAUMATIC, NORMOCEPHALIC - Eye Exam Eye Exam: EOMI, PERRL. absent: Scleral icterus Pupil Exam: PERRL. absent: Miosis, Mydriatic - ENT Exam ENT Exam: Mucous Membranes Moist, Normal Oropharynx - Neck Exam Neck Exam: Full ROM, Normal Inspection - Respiratory Exam Respiratory Exam: Clear to Ausculation Bilateral. absent: Rales, Rhonchi, Wheezes - Cardiovascular Exam Cardiovascular Exam: RRR, +S1, +S2. absent: Gallop, Rubs - GI/Abdominal Exam GI & Abdominal Exam: Soft, Normal Bowel Sounds. absent: Distended, Firm, Guarding, Rigid, Tenderness, Organomegaly, Rebound - Extremities Exam Additional comments: lymphedema - Neurological Exam Neurological Exam: Alert, Awake - Psychiatric Exam Psychiatric exam: Normal Affect, Normal Mood - Skin Skin Exam: Dry, Intact, Normal Color, Warm Assessment and Plan - Assessment and Plan (Free Text) Assessment: 73 year old female with PMH of morbid obesity, Afib on Coumadin, severe pul monary HTN, COPD, PVD, and chronic lymphedema presenting with shortness of breath and chest pain. Multiple admissions since March 2018, most recent being June 21/2018 for severe sepsis due to HCAP, COPD exacerbation, and Pseudomonas/ESBL lower extremities wound infections requiring prolonged ant ibiotic courses. Active treatment of sepsis likely 2/2 lower extremity wound infections, Afib RVR, supratherapeutic INR, and GI consultation for weight loss. Plan: -poor appetite likely 2/2 food aversion-endorses food is not appealing -dyspepsia 2/2 active infections with prolonged antibiotic courses -consumed partial of regular diet -denies dysphagia/odynophagia -ordered speech evaluation to formally assess swallowing function -ordered stool infectious workup -continue Pepcid BID -supportive care- Zantac and Maalox PRN -would benefit from CT cross-sectional imaging, over the weight limit for evaluation -would benefit from elective outpatient endoscopic evaluation after medical optimization -will follow clinical course <Medardo Steele - Last Filed: 07/11/18 15:30> Objective - Vital Signs/Intake and Output Vital Signs (last 24 hours): Temp Pulse Resp BP Pulse Ox 97.9 F 96 H 38 H 80/40 L 92 L 07/10/18 04:59 07/11/18 12:48 07/11/18 12:48 07/11/18 14:59 07/11/18 10:50 Intake and Output: 07/11/18 07/11/18 06:59 18:59 Intake Total 250 Balance 250 - Medications Medications: Current Medications Albuterol/Ipratropium (Duoneb 3 Mg/0.5 Mg (3 Ml) Ud) 3 ml IH Q6 [facility] Last Admin: 07/11/18 14:55 Dose: Not Given Diltiazem HCl (Cardizem) 60 mg PO TID [facility] Ergocalciferol (Drisdol 50,000 Intl Units Cap) 1 cap PO Q7D [facility] Last Admin: 07/11/18 13:15 Dose: 1 cap Ferrous Gluconate (Fergon) 324 mg PO TID [facility] Last Admin: 07/11/18 14:55 Dose: Not Given Fluticasone Propionate (Flonase) 1 actuation MARIAM DAILY [facility] Last Admin: 07/11/18 14:54 Dose: 1 spr Furosemide (Lasix) 40 mg IVP DAILY [facility] Vasopressin 20 units/ Sodium (Chloride) 101 mls @ 9.09 mls/hr IV .Q11H7M [facility]; Protocol Last Admin: 07/11/18 14:59 Dose: 9.09 mls/hr Doxycycline Hyclate 100 mg/ (Sodium Chloride) 100 mls @ 100 mls/hr IVPB Q12 [facility]; Protocol Last Admin: 07/11/18 12:54 Dose: 100 mls/hr Meropenem/Sodium Chloride (Merrem Iv 500 Mg/Ns 50 Ml) 500 mg in 50 mls @ 100 mls/hr IVPB Q12 [facility]; Protocol Stop: 07/19/18 22:01 Last Admin: 07/11/18 12:52 Dose: 100 mls/hr Linezolid (Zyvox 600mg/300ml D5w) 600 mg in 300 mls @ 200 mls/hr IVPB Q12 [facility]; Protocol Stop: 07/19/18 22:01 Last Admin: 07/11/18 12:58 Dose: 200 mls/hr NOREPINEPHRINE BIT/0.9 % NACL (Levophed 4 Mg/ 250 Ml Ns Premixed) 4 mg in 250 mls @ 15 mls/hr IV .[id number] PRN; Protocol PRN Reason: TITRATE PER MD ORDER Last Titration: 07/11/18 10:00 Dose: Infused Levothyroxine Sodium (Synthroid) 25 mcg PO DAILY [facility] Last Admin: 07/11/18 13:15 Dose: 25 mcg Pantoprazole Sodium (Protonix Ec Tab) 40 mg PO DAILY [facility] Last Admin: 07/11/18 13:15 Dose: 40 mg Silver Sulfadiazine (Silvadene 1%) 0 ea TOP Q12H [facility] Last Admin: 07/11/18 14:57 Dose: 1 applic Vitamin B Complex/Vit C/Folic Acid (Nephro-Miguelito) 1 tab PO 0800 [facility] Last Admin: 07/11/18 13:15 Dose: 1 tab - Labs Labs: 07/11/18 07:00 07/11/18 07:00 PT 111.5 SECONDS (9.4-12.5) H 07/11/18 07:00 INR 9.27 H* 07/11/18 07:00 Attending/Attestation - Attestation I have fully participated in the care of the patient.: Yes I have reviewed all pertinent clinical information, including history, physical exam and plan: Yes Notes (Text): 07/11/18 15:27 Morbid obesity Atrial fibrillation, RVR on coumadin COPD PVD Sepsis, pneumonia Weight loss - Patient currently tolerating PO diet without report of dysphagia or ordyno phagia, continue to monitor - Awaiting results of speech/swallow evaluation - Continue with h2 cj therapy - Not able to obtain CT imaging due to excessive body weight and physical limitations, will continue to monitor patient clinical course
[2018-07-11 15:15] LABS: URINE BACTERIA FEW (NEG)
--- NOTE | 2018-07-11 18:39 | CON ---
DATE: 07/11/2018 CARDIOLOGY CONSULTATION HISTORY: The patient is a 73-year-old woman, who is admitted for one of multiple admissions in the past. The patient suffers from morbid obesity, documented pulmonary hypertension with an echo performed on 04/13/2018. Her ejection fraction was normal with an EF of 56%. Her RVSP was 60 mmHg consistent with severe pulmonary hypertension. In addition, the patient suffers from chronic atrial fibrillation, in which Cardizem was stopped for questionable reasons. She is on Coumadin, in which an INR was measured at 9.27 today. Her BUN and creatinine are 37 and 2.4 with a glucose of 124. Hemoglobin is 8.3. The patient presented with shortness of breath, but currently is free, in which her breathing is better. Her chest pain is not of ischemic nature, but is related to her swallowing consistent with dysphagia. PHYSICAL EXAMINATION: GENERAL: The patient is markedly obese woman, in no acute distress. VITAL SIGNS: Blood pressure is 95/53, heart rate is atrial fibrillation at 100. NECK: Negative JVD. LUNGS: Decreased breath sounds. HEART: Reveal S1, S2. EXTREMITIES: There is marked chronic edema. LABORATORY DATA: EKG is atrial fibrillation with diffuse ST-T changes. Hemoglobin is 8.3. Chemistries, BUN and creatinine 37 and 2.4 with a ProBNP of greater than 6000. IMPRESSION: 1. Severe pulmonary hypertension. 2. Normal LV function. 3. Atrial fibrillation with increased heart rate. 4. Coagulopathy secondary to antibiotics and Coumadin combo. 5. Renal insufficiency. 6. Diabetes mellitus. 7. Normal LV function. PLAN: Given these findings, we will restart the patient on her Cardizem at 60 p.o. t.i.d. We will need to follow her BUN and creatinine carefully after her Lasix. Ryan Turk MD
--- NOTE | 2018-07-11 21:17 | PN ---
DATE: 07/11/2018 SUBJECTIVE: The patient is seen and examined at bedside. She is much more comfortable. She is enjoying her breakfast and lunch. She is off of norepinephrine; however, vasopressin is continued. She is on midodrine 10 mg p.o. t.i.d. as well. PHYSICAL EXAMINATION: VITAL SIGNS: Blood pressure 91/45, heart rate 79, respiratory rate 14, oxygen saturation 92%. ENT: Head and neck atraumatic. LUNGS: Clear to auscultation bilaterally. HEART: Irregular rate and rhythm. S1 and S2 distant. ABDOMEN: Soft, nontender, and nondistended. MUSCULOSKELETAL: 1+ bilateral pedal and ankle edema. NEUROLOGICAL: The patient moves all extremities spontaneously. SKIN: Moist. PSYCHIATRIC: The patient is alert, awake, and oriented x3. LABORATORY DATA: WBC 14.7, hemoglobin 8.3, platelet count 538. Sodium 137, potassium 3.5 (supplemented), chloride 105, carbon dioxide 24, BUN 37, creatinine 2.4, glucose 125, lactic acid 1.2, albumin 2.3. ABG is 7.42/33/94. MEDICATIONS: DuoNeb every 6 hours, Cardizem 60 mg p.o. t.i.d., Synthroid, Plavix 40 mg IV daily, Protonix, Vitamin K x1, vasopressin 0.03 units per minute, and Zyvox. ASSESSMENT AND PLAN: This is a 73-year-old lady, who presented initially with what appears to be septic shock secondary to cellulitis versus pneumonia in the setting of pulmonary hypertension and right ventricular failure. At the present time, the patient was successfully weaned off of pressors, heart rate controlled on p.o. Cardizem, vasopressin continued. Antibiotics continued. Cardiology service saw the patient and input appreciated. The patient is on Lasix. We will continue to follow up septic workup. We will continue with gastrointestinal prophylaxis. We will continue to maintain euvolemia, euglycemia, normothermia and oxygen saturation more than 90%. ccm time 40 min Gigi Sosa MD (Delete this signature block when dictator is a preceptor.) cc: MD Blair (Delete if not dictated.) MTDD
[2018-07-12] MEDS: Silver Sulfadiazine 1% Cream (400 gm) TOP SCH ×2 (00:30→12:57)
[2018-07-12] MEDS: Albuterol-Ipratrop 3 mg / 0.5 (3 ml) UD IH SCH ×4 (01:35→20:11)
[2018-07-12] MEDS: NOREPINEPHRINE BIT/0.9 % NACL 4 MG/250 ML BAG IV PRN (04:09)
[2018-07-12 07:16] LABS: HEMOGLOBIN 8.3 g/dL (12.0-16.0); MEAN CELL VOLUME 81.9 fl (80.0-105.0); MEAN CORPUSCULAR HEMOGLOBIN 25.5 pg (25.0-35.0); MEAN CORPUSCULAR HGB CONC 31.1 g/dl (31.0-37.0); MEAN PLATELET VOLUME 9.3 fl (7.0-11.0); RBC 3.26 10^6/uL (3.5-6.1); RED CELL DISTRIBUTION WIDTH 16.3 % (11.5-14.5); WHITE BLOOD COUNT 14.6 10^3/uL (4.5-11.0)
[2018-07-12 07:21] LABS: INR 1.53; PROTHROMBIN TIME 17.7 SECONDS (9.4-12.5)
[2018-07-12 07:29] LABS: ALB/GLOB RATIO 0.7 (1.1-1.8); ALBUMIN 2.4 g/dL (3.0-4.8); CALCIUM 8.1 mg/dL (8.4-10.5)
--- NOTE | 2018-07-12 07:48 | CP.CCUPN ---
<Juan Alberto Hill - Last Filed: 07/12/18 13:07> CCU Subjective - Physician Review Subjective (Free Text): Juan Alberto Hill DO, PGY1. ICU progress note for Dr Tejeda Patient seen and examined at bedside. She is AAOx3, in no acute distress, tolerating her diet . She feels rapid heart beat and lightheadedness. Overnight, she was started on levophed and steroids due to low BP. She denied chest pain, fever, headache CCU Objective - Vital Signs / Intake & Output Vital Signs (Last 4 hours): Vital Signs Pulse 07/12/18 04:40 76 Intake and Output (Last 8hrs): Intake & Output 07/11/18 07/12/18 07/12/18 22:59 06:59 14:59 Intake Total 100 Balance 100 Intake: Oral 100 - Physical Exam Head: Positive for: Atraumatic, Normocephalic Pupils: Positive for: PERRL Extroacular Muscles: Positive for: EOMI Conjunctiva: Positive for: Normal Mouth: Positive for: Moist Mucous Membranes Neck: Positive for: Normal Range of Motion Respiratory/Chest: Positive for: Clear to Auscultation, Good Air Exchange. Negative for: Respiratory Distress, Accessory Muscle Use Cardiovascular: Positive for: Irregular Rhythm, Tachycardic. Negative for: Regular Rate and Rhythm Abdomen: Positive for: Other (Morbidly obese). Negative for: Tenderness, Distention, Peritoneal Signs Back: Positive for: Normal Inspection Upper Extremity: Positive for: Normal Inspection, Other (b/l hand muscle atrophy). Negative for: Cyanosis, Edema Lower Extremity: Positive for: Normal Inspection, Edema (4+ edema/lymphedema. ), Other (LE pulses not palpaple due to edema) Neurological: Positive for: GCS=15, CN II-XII Intact, Speech Normal Skin: Positive for: Warm, Dry, Other (b/l lateral thigh skin changes. superficial wounds on right thigh with fluid filled blister. no pus, mderate erythema). Negative for: Rashes Psychiatric: Positive for: Alert, Oriented x 3, Normal Insight, Normal Concentration - Medications Active Medications: Active Medications Generic Name Dose Route Start Last Admin Trade Name Freq PRN Reason Stop Dose Admin Albuterol/Ipratropium 3 ml 07/10/18 12:00 11/29/18 01:35 Duoneb 3 Mg/0.5 Mg (3 Ml) Ud IH Not Given Q6 RONI Diltiazem HCl 60 mg 07/11/18 18:00 07/11/18 18:06 Cardizem PO 60 mg TID RONI Administration Ergocalciferol 1 cap 07/10/18 16:00 07/11/18 13:15 Drisdol 50,000 Intl Units Cap PO 1 cap Q7D RONI Administration Ferrous Gluconate 324 mg 07/10/18 18:00 07/11/18 18:06 Fergon PO 324 mg TID RONI Administration Fluticasone Propionate 1 actuation 07/10/18 10:00 07/11/18 14:54 Flonase MARIAM 1 spr DAILY RONI Administration Furosemide 40 mg 07/12/18 10:00 Lasix IVP DAILY RONI Hydrocortisone Sodium Succinate 50 mg 07/12/18 06:00 Solu-Cortef IVP Q8 RONI Vasopressin 20 units/ Sodium 101 mls @ 9.09 mls/hr 07/10/18 09:30 07/12/18 00:31 Chloride IV 9.09 mls/hr .[id number] RONI Administration Protocol 0.03 U/MIN Doxycycline Hyclate 100 mg/ 100 mls @ 100 mls/hr 07/10/18 10:00 07/11/18 21:20 Sodium Chloride IVPB 100 mls/hr Q12 RONI Administration Protocol Meropenem/Sodium Chloride 500 mg in 50 mls @ 100 mls/hr 07/10/18 22:00 07/11/18 21:19 Merrem Iv 500 Mg/Ns 50 Ml IVPB 07/19/18 22:01 100 mls/hr Q12 RONI Administration Protocol Linezolid 600 mg in 300 mls @ 200 mls/hr 07/10/18 22:00 07/11/18 21:21 Zyvox 600mg/300ml D5w IVPB 07/19/18 22:01 200 mls/hr Q12 RONI Administration Protocol NOREPINEPHRINE BIT/0.9 % NACL 4 mg in 250 mls @ 15 mls/hr 07/10/18 14:39 07/12/18 04:09 Levophed 4 Mg/ 250 Ml Ns Premixed IV 3 mcg/min .[id number] PRN 11.25 mls/hr TITRATE PER MD ORDER Administration Protocol 4 MCG/MIN Levothyroxine Sodium 25 mcg 07/10/18 10:00 07/11/18 13:15 Synthroid PO 25 mcg DAILY RONI Administration Midodrine 10 mg 07/11/18 18:00 07/11/18 18:06 Proamatine PO 10 mg TID RONI Administration Pantoprazole Sodium 40 mg 07/10/18 10:00 07/11/18 13:15 Protonix Ec Tab PO 40 mg DAILY RONI Administration Silver Sulfadiazine 0 ea 07/11/18 12:30 07/12/18 00:30 Silvadene 1% TOP 1 applic Q12H RONI Administration Vitamin B Complex/Vit C/Folic Acid 1 tab 07/11/18 08:00 07/11/18 13:15 Nephro-Adonis PO 1 tab 0800 RONI Administration - Patient Studies Lab Studies: Microbiology Studies 07/10/18 17:15 Blood Culture - Preliminary Blood NO GROWTH AFTER 24 HOURS 07/10/18 17:00 Blood Culture - Preliminary Blood NO GROWTH AFTER 24 HOURS Lab Studies 07/12/18 07/12/18 07/12/18 Range/Units 07:31 07:00 07:00 WBC (4.5-11.0) 10^3/uL RBC (3.5-6.1) 10^6/uL Hgb (12.0-16.0) g/dL Hct (36.0-48.0) % MCV (80.0-105.0) fl MCH (25.0-35.0) pg MCHC (31.0-37.0) g/dl RDW (11.5-14.5) % Plt Count (120.0-450.0) 10^3/uL MPV (7.0-11.0) fl PT 17.7 H (9.4-12.5) SECONDS INR 1.53 pCO2 (35-45) mm/Hg pO2 (80-100) mm/Hg HCO3 (21-28) mmol/L ABG pH (7.35-7.45) ABG Total CO2 (22-28) mmol.L ABG O2 Saturation (95-98) % ABG O2 Content (15-23) ML/dl ABG Base Excess (-2.0-3.0) mmol/L ABG Hemoglobin (11.7-17.4) g/dL ABG Carboxyhemoglobin (0.5-1.5) % POC ABG HHb (Measured) (0-5) % ABG Methemoglobin (0.0-3.0) % ABG O2 Capacity (16-24) mL/dl Hgb O2 Saturation (95.0-98.0) % FiO2 % Sodium 135 (132-148) mmol/L Potassium 3.6 (3.6-5.0) mmol/L Chloride 105 (98-107) mmol/L Carbon Dioxide 24 (21-33) mmol/L Anion Gap 10 (10-20) BUN 34 H (7-21) mg/dL Creatinine 2.2 H (0.7-1.2) mg/dl Est GFR ( Amer) 26 Est GFR (Non-Af Amer) 22 POC Glucose (mg/dL) 117 H (65-110) mg/dL Random Glucose 115 H (70-110) mg/dL Calcium 8.1 L (8.4-10.5) mg/dL Total Bilirubin 0.6 (0.2-1.3) mg/dL AST 18 (14-36) U/L ALT 20 (7-56) U/L Alkaline Phosphatase 134 H (38-126) U/L Total Protein 5.7 L (5.8-8.3) g/dL Albumin 2.4 L (3.0-4.8) g/dL Globulin 3.3 gm/dL Albumin/Globulin Ratio 0.7 L (1.1-1.8) Urine Color (YELLOW) Urine Appearance (CLEAR) Urine pH (4.7-8.0) Ur Specific [place] (1.005-1.035) Urine Protein (<30 mg/dL) mg/dL Urine Glucose (UA) (NEGATIVE) mg/dL Urine Ketones (NEGATIVE) mg/dL Urine Blood (NEGATIVE) Urine Nitrate (NEGATIVE) Urine Bilirubin (NEGATIVE) Urine Urobilinogen (<1 E.U./dL) E.U./dL Ur Leukocyte Esterase (NEGATIVE) Jose/uL Urine RBC (0-2) /hpf Urine WBC (0-6) /hpf Ur Epithelial Cells (0-5) /hpf Urine Bacteria (NEG) Urine Other 07/12/18 07/11/18 07/11/18 Range/Units 07:00 21:48 18:15 WBC 14.6 H (4.5-11.0) 10^3/uL RBC 3.26 L (3.5-6.1) 10^6/uL Hgb 8.3 L (12.0-16.0) g/dL Hct 26.7 L (36.0-48.0) % MCV 81.9 (80.0-105.0) fl MCH 25.5 (25.0-35.0) pg MCHC 31.1 (31.0-37.0) g/dl RDW 16.3 H (11.5-14.5) % Plt Count 505 H (120.0-450.0) 10^3/uL MPV 9.3 (7.0-11.0) fl PT (9.4-12.5) SECONDS INR pCO2 (35-45) mm/Hg pO2 (80-100) mm/Hg HCO3 (21-28) mmol/L ABG pH (7.35-7.45) ABG Total CO2 (22-28) mmol.L ABG O2 Saturation (95-98) % ABG O2 Content (15-23) ML/dl ABG Base Excess (-2.0-3.0) mmol/L ABG Hemoglobin (11.7-17.4) g/dL ABG Carboxyhemoglobin (0.5-1.5) % POC ABG HHb (Measured) (0-5) % ABG Methemoglobin (0.0-3.0) % ABG O2 Capacity (16-24) mL/dl Hgb O2 Saturation (95.0-98.0) % FiO2 % Sodium (132-148) mmol/L Potassium (3.6-5.0) mmol/L Chloride (98-107) mmol/L Carbon Dioxide (21-33) mmol/L Anion Gap (10-20) BUN (7-21) mg/dL Creatinine (0.7-1.2) mg/dl Est GFR ( Amer) Est GFR (Non-Af Amer) POC Glucose (mg/dL) 109 128 H (65-110) mg/dL Random Glucose (70-110) mg/dL Calcium (8.4-10.5) mg/dL Total Bilirubin (0.2-1.3) mg/dL AST (14-36) U/L ALT (7-56) U/L Alkaline Phosphatase (38-126) U/L Total Protein (5.8-8.3) g/dL Albumin (3.0-4.8) g/dL Globulin gm/dL Albumin/Globulin Ratio (1.1-1.8) Urine Color (YELLOW) Urine Appearance (CLEAR) Urine pH (4.7-8.0) Ur Specific [place] (1.005-1.035) Urine Protein (<30 mg/dL) mg/dL Urine Glucose (UA) (NEGATIVE) mg/dL Urine Ketones (NEGATIVE) mg/dL Urine Blood (NEGATIVE) Urine Nitrate (NEGATIVE) Urine Bilirubin (NEGATIVE) Urine Urobilinogen (<1 E.U./dL) E.U./dL Ur Leukocyte Esterase (NEGATIVE) Jose/uL Urine RBC (0-2) /hpf Urine WBC (0-6) /hpf Ur Epithelial Cells (0-5) /hpf Urine Bacteria (NEG) Urine Other 07/11/18 07/11/18 07/11/18 Range/Units 14:50 11:25 10:20 WBC (4.5-11.0) 10^3/uL RBC (3.5-6.1) 10^6/uL Hgb (12.0-16.0) g/dL Hct (36.0-48.0) % MCV (80.0-105.0) fl MCH (25.0-35.0) pg MCHC (31.0-37.0) g/dl RDW (11.5-14.5) % Plt Count (120.0-450.0) 10^3/uL MPV (7.0-11.0) fl PT (9.4-12.5) SECONDS INR pCO2 33 L (35-45) mm/Hg pO2 94.0 (80-100) mm/Hg HCO3 21.4 (21-28) mmol/L ABG pH 7.42 (7.35-7.45) ABG Total CO2 22.4 (22-28) mmol.L ABG O2 Saturation 99.1 H (95-98) % ABG O2 Content 11.9 L (15-23) ML/dl ABG Base Excess -2.6 L (-2.0-3.0) mmol/L ABG Hemoglobin 8.7 L (11.7-17.4) g/dL ABG Carboxyhemoglobin 1.8 H (0.5-1.5) % POC ABG HHb (Measured) 0.9 (0-5) % ABG Methemoglobin 1.3 (0.0-3.0) % ABG O2 Capacity 12.0 L (16-24) mL/dl Hgb O2 Saturation 96.0 (95.0-98.0) % FiO2 21.0 % Sodium (132-148) mmol/L Potassium (3.6-5.0) mmol/L Chloride (98-107) mmol/L Carbon Dioxide (21-33) mmol/L Anion Gap (10-20) BUN (7-21) mg/dL Creatinine (0.7-1.2) mg/dl Est GFR ( Amer) Est GFR (Non-Af Amer) POC Glucose (mg/dL) 129 H (65-110) mg/dL Random Glucose (70-110) mg/dL Calcium (8.4-10.5) mg/dL Total Bilirubin (0.2-1.3) mg/dL AST (14-36) U/L ALT (7-56) U/L Alkaline Phosphatase (38-126) U/L Total Protein (5.8-8.3) g/dL Albumin (3.0-4.8) g/dL Globulin gm/dL Albumin/Globulin Ratio (1.1-1.8) Urine Color Yellow (YELLOW) Urine Appearance Cloudy (CLEAR) Urine pH 6.0 (4.7-8.0) Ur Specific [place] 1.020 (1.005-1.035) Urine Protein Trace H (<30 mg/dL) mg/dL Urine Glucose (UA) Negative (NEGATIVE) mg/dL Urine Ketones Negative (NEGATIVE) mg/dL Urine Blood Negative (NEGATIVE) Urine Nitrate Negative (NEGATIVE) Urine Bilirubin Negative (NEGATIVE) Urine Urobilinogen 0.2 (<1 E.U./dL) E.U./dL Ur Leukocyte Esterase Small H (NEGATIVE) Jose/uL Urine RBC 1 - 3 (0-2) /hpf Urine WBC 5 - 10 (0-6) /hpf Ur Epithelial Cells 6 - 8 (0-5) /hpf Urine Bacteria Few (NEG) Urine Other Uyeast 07/11/18 Range/Units 07:55 WBC (4.5-11.0) 10^3/uL RBC (3.5-6.1) 10^6/uL Hgb (12.0-16.0) g/dL Hct (36.0-48.0) % MCV (80.0-105.0) fl MCH (25.0-35.0) pg MCHC (31.0-37.0) g/dl RDW (11.5-14.5) % Plt Count (120.0-450.0) 10^3/uL MPV (7.0-11.0) fl PT (9.4-12.5) SECONDS INR pCO2 (35-45) mm/Hg pO2 (80-100) mm/Hg HCO3 (21-28) mmol/L ABG pH (7.35-7.45) ABG Total CO2 (22-28) mmol.L ABG O2 Saturation (95-98) % ABG O2 Content (15-23) ML/dl ABG Base Excess (-2.0-3.0) mmol/L ABG Hemoglobin (11.7-17.4) g/dL ABG Carboxyhemoglobin (0.5-1.5) % POC ABG HHb (Measured) (0-5) % ABG Methemoglobin (0.0-3.0) % ABG O2 Capacity (16-24) mL/dl Hgb O2 Saturation (95.0-98.0) % FiO2 % Sodium (132-148) mmol/L Potassium (3.6-5.0) mmol/L Chloride (98-107) mmol/L Carbon Dioxide (21-33) mmol/L Anion Gap (10-20) BUN (7-21) mg/dL Creatinine (0.7-1.2) mg/dl Est GFR ( Amer) Est GFR (Non-Af Amer) POC Glucose (mg/dL) 130 H (65-110) mg/dL Random Glucose (70-110) mg/dL Calcium (8.4-10.5) mg/dL Total Bilirubin (0.2-1.3) mg/dL AST (14-36) U/L ALT (7-56) U/L Alkaline Phosphatase (38-126) U/L Total Protein (5.8-8.3) g/dL Albumin (3.0-4.8) g/dL Globulin gm/dL Albumin/Globulin Ratio (1.1-1.8) Urine Color (YELLOW) Urine Appearance (CLEAR) Urine pH (4.7-8.0) Ur Specific [place] (1.005-1.035) Urine Protein (<30 mg/dL) mg/dL Urine Glucose (UA) (NEGATIVE) mg/dL Urine Ketones (NEGATIVE) mg/dL Urine Blood (NEGATIVE) Urine Nitrate (NEGATIVE) Urine Bilirubin (NEGATIVE) Urine Urobilinogen (<1 E.U./dL) E.U./dL Ur Leukocyte Esterase (NEGATIVE) Jose/uL Urine RBC (0-2) /hpf Urine WBC (0-6) /hpf Ur Epithelial Cells (0-5) /hpf Urine Bacteria (NEG) Urine Other Laboratory Results - last 24 hr 07/11/18 07/11/18 07/11/18 07:55 10:20 11:25 WBC RBC Hgb Hct MCV MCH MCHC RDW Plt Count MPV PT INR pCO2 33 L pO2 94.0 HCO3 21.4 ABG pH 7.42 ABG Total CO2 22.4 ABG O2 Saturation 99.1 H ABG O2 Content 11.9 L ABG Base Excess -2.6 L ABG Hemoglobin 8.7 L ABG Carboxyhemoglobin 1.8 H POC ABG HHb (Measured) 0.9 ABG Methemoglobin 1.3 ABG O2 Capacity 12.0 L Hgb O2 Saturation 96.0 FiO2 21.0 Sodium Potassium Chloride Carbon Dioxide Anion Gap BUN Creatinine Est GFR ( Amer) Est GFR (Non-Af Amer) POC Glucose (mg/dL) 130 H 129 H Random Glucose Calcium Total Bilirubin AST ALT Alkaline Phosphatase Total Protein Albumin Globulin Albumin/Globulin Ratio Urine Color Urine Appearance Urine pH Ur Specific [place] Urine Protein Urine Glucose (UA) Urine Ketones Urine Blood Urine Nitrate Urine Bilirubin Urine Urobilinogen Ur Leukocyte Esterase Urine RBC Urine WBC Ur Epithelial Cells Urine Bacteria Urine Other 07/11/18 07/11/18 07/11/18 14:50 18:15 21:48 WBC RBC Hgb Hct MCV MCH MCHC RDW Plt Count MPV PT INR pCO2 pO2 HCO3 ABG pH ABG Total CO2 ABG O2 Saturation ABG O2 Content ABG Base Excess ABG Hemoglobin ABG Carboxyhemoglobin POC ABG HHb (Measured) ABG Methemoglobin ABG O2 Capacity Hgb O2 Saturation FiO2 Sodium Potassium Chloride Carbon Dioxide Anion Gap BUN Creatinine Est GFR ( Amer) Est GFR (Non-Af Amer) POC Glucose (mg/dL) 128 H 109 Random Glucose Calcium Total Bilirubin AST ALT Alkaline Phosphatase Total Protein Albumin Globulin Albumin/Globulin Ratio Urine Color Yellow Urine Appearance Cloudy Urine pH 6.0 Ur Specific [place] 1.020 Urine Protein Trace H Urine Glucose (UA) Negative Urine Ketones Negative Urine Blood Negative Urine Nitrate Negative Urine Bilirubin Negative Urine Urobilinogen 0.2 Ur Leukocyte Esterase Small H Urine RBC 1 - 3 Urine WBC 5 - 10 Ur Epithelial Cells 6 - 8 Urine Bacteria Few Urine Other Uyeast 07/12/18 07/12/18 07/12/18 07:00 07:00 07:00 WBC 14.6 H RBC 3.26 L Hgb 8.3 L Hct 26.7 L MCV 81.9 MCH 25.5 MCHC 31.1 RDW 16.3 H Plt Count 505 H MPV 9.3 PT 17.7 H INR 1.53 pCO2 pO2 HCO3 ABG pH ABG Total CO2 ABG O2 Saturation ABG O2 Content ABG Base Excess ABG Hemoglobin ABG Carboxyhemoglobin POC ABG HHb (Measured) ABG Methemoglobin ABG O2 Capacity Hgb O2 Saturation FiO2 Sodium 135 Potassium 3.6 Chloride 105 Carbon Dioxide 24 Anion Gap 10 BUN 34 H Creatinine 2.2 H Est GFR ( Amer) 26 Est GFR (Non-Af Amer) 22 POC Glucose (mg/dL) Random Glucose 115 H Calcium 8.1 L Total Bilirubin 0.6 AST 18 ALT 20 Alkaline Phosphatase 134 H Total Protein 5.7 L Albumin 2.4 L Globulin 3.3 Albumin/Globulin Ratio 0.7 L Urine Color Urine Appearance Urine pH Ur Specific [place] Urine Protein Urine Glucose (UA) Urine Ketones Urine Blood Urine Nitrate Urine Bilirubin Urine Urobilinogen Ur Leukocyte Esterase Urine RBC Urine WBC Ur Epithelial Cells Urine Bacteria Urine Other 07/12/18 07:31 WBC RBC Hgb Hct MCV MCH MCHC RDW Plt Count MPV PT INR pCO2 pO2 HCO3 ABG pH ABG Total CO2 ABG O2 Saturation ABG O2 Content ABG Base Excess ABG Hemoglobin ABG Carboxyhemoglobin POC ABG HHb (Measured) ABG Methemoglobin ABG O2 Capacity Hgb O2 Saturation FiO2 Sodium Potassium Chloride Carbon Dioxide Anion Gap BUN Creatinine Est GFR ( Amer) Est GFR (Non-Af Amer) POC Glucose (mg/dL) 117 H Random Glucose Calcium Total Bilirubin AST ALT Alkaline Phosphatase Total Protein Albumin Globulin Albumin/Globulin Ratio Urine Color Urine Appearance Urine pH Ur Specific [place] Urine Protein Urine Glucose (UA) Urine Ketones Urine Blood Urine Nitrate Urine Bilirubin Urine Urobilinogen Ur Leukocyte Esterase Urine RBC Urine WBC Ur Epithelial Cells Urine Bacteria Urine Other Critical Care Progress Note - Nutrition Nutrition: Nutrition Category Date Time Status Consistent Carbohydrate [DIET] Diets 07/10/18 Breakfast Ordered Assessment/Plan - Assessment and Plan (Free Text) Assessment: 73 y/o female with multiple co-morbidities include morbid obesity (BMI 68) CHF, Afib, COPD, DM2, and severe b/l LE edema/lymphedema admitted to ICU for septic shock that's resolving Plan: Neuro: -AAOx3 -Maintain normothermia CVS: -diastolic HF with pHTN -Afib with RVR: continue cardizem 60mg po tid -INR 1.53 -BNP 6710 -Trop 0.02 x1 -continue vasopressin -continue midodrine 10 mg po tid -restart lasix 40mg ivp daily -BP 119/58 HR 93 -h/o CHF, LE edema/lymphedema, PVD -cardio following (dr Turk) ID: -improved sepsis -continue on solu-cortef 50mg ivp q8h -sepsis likely due to wound infection/UTI. h/o ESBL in LE -f/u urine, sputum cultures -blood cx negative -procal 0.37 -f/u lactate -continue abx meropenem, doxycycline, zyvox as per ID -ID following (dr Fernandez) GI: -Dysphagia to solid and liquid, significant weight loss. r/o abdominal malignancy -abd/pelvis U/S: no acute finding -CT can not be done due to overweight -PT/INR 17.7/1.53 -bilirubin 0.6 -albumin 2.6 -AST/ALT normal -Zantac,Maalox, zofran PRN -Miralax daily for constipation -GI consulted (dr Steele): high risk for anesthesia and endoscopic evaluation given body habitus, medical optimization. Heme/onc: -chronic anemia -H/H 9.4/30.3 (was 11.1/34.1 4 weeks ago) -no signs of bleeding -weight loss of 200 lb in 3 month -significant weight loss, dysphasia, malaise, muscle wasting concerning for malignancy -CA 125 is low -CEA ordered -CA19-9 elevated at 83.6 Renal/: -CRIS on CKD likely due to hypovolemia -BUN/Cr 34/2.2 compared to 24/0.8 on last admission few weeks ago -GFR 19 -avoid nephrotoxic drugs -UA +LE -I&O 1330/240 in 24 hr -replete lytes as needed -continue Nutri-adonis, dristol, iron, vit B,C supplements Resp: -In no respiratory distress -pHTN, RV failure -recent admission due to severe sepsis due to HCAP, COPD exacerbation, and Pseudomonas/ESBL skin infection -CXR: no active infiltrate -AB.42/33/94/21.4 improving -Flu A/B negative -Duoneb prn -Maintain O2 sat >90% -O2 NC PRN Endo: -hypothyroidism. continue home med synthroid -TSH:: 4.99 Nutrition: -Poor appetite, dysphasia for 3 month -speech/swallow evaluation -Dietian consult -soft diet Prophylaxis: GI ppx: protonix Dispo: patient is hemodynamically stable, sepsis resolved, transfer to tele Case reviewed and plan discussed with attending Dr Sheila Hill DO, PGY1 <Gigi Sosa - Last Filed: 07/12/18 18:57> CCU Objective - Vital Signs / Intake & Output Vital Signs (Last 4 hours): Vital Signs Temp Pulse Resp BP Pulse Ox 07/12/18 18:03 102 H 19 99/47 L 100 07/12/18 18:00 92 H 23 88/43 L 100 07/12/18 17:45 84 15 98/63 L 100 07/12/18 17:30 88 13 106/56 L 100 07/12/18 17:15 98 H 16 93/47 L 100 07/12/18 17:00 101 H 15 87/42 L 100 07/12/18 16:45 102 H 19 93/61 L 100 07/12/18 16:31 86 24 97/36 L 99 07/12/18 16:29 89 26 H 07/12/18 16:28 100 H 21 07/12/18 16:27 96 H 26 H 07/12/18 16:24 119 H 28 H 07/12/18 16:23 116 H 59 H 07/12/18 16:22 99 H 21 07/12/18 16:21 101 H 28 H 07/12/18 16:20 98 H 29 H 07/12/18 16:19 92 H 21 07/12/18 16:18 106 H 18 07/12/18 16:17 110 H 23 07/12/18 16:16 96 H 26 H 07/12/18 16:15 122/66 07/12/18 16:14 102 H 21 07/12/18 16:13 101 H 37 H 07/12/18 16:12 99 H 22 07/12/18 16:11 97 H 18 07/12/18 16:10 94 H 19 07/12/18 16:09 98 H 24 07/12/18 16:08 110 H 11 L 07/12/18 16:07 94 H 19 07/12/18 16:06 99 H 21 07/12/18 16:05 107 H 07/12/18 16:04 102 H 26 H 07/12/18 16:03 96 H 22 07/12/18 16:02 101 H 21 07/12/18 16:01 88/38 L 07/12/18 16:00 97.2 F L 90 16 07/12/18 15:59 106 H 24 07/12/18 15:58 105 H 23 07/12/18 15:57 108 H 31 H 07/12/18 15:56 112 H 07/12/18 15:55 106 H 23 07/12/18 15:54 111 H 22 07/12/18 15:53 97 H 22 07/12/18 15:52 102 H 24 07/12/18 15:51 90 18 07/12/18 15:50 95 H 19 07/12/18 15:49 98 H 19 07/12/18 15:48 105 H 20 07/12/18 15:47 96 H 21 07/12/18 15:46 92 H 22 07/12/18 15:45 88/30 L 07/12/18 15:44 103 H 07/12/18 15:43 82 19 07/12/18 15:42 88 19 07/12/18 15:41 91 H 21 07/12/18 15:40 97 H 26 H 07/12/18 15:39 100 H 26 H 07/12/18 15:38 97 H 25 H 07/12/18 15:37 93 H 30 H 07/12/18 15:36 93 H 23 07/12/18 15:35 91 H 18 07/12/18 15:34 102 H 22 07/12/18 15:33 99 H 17 07/12/18 15:32 105 H 22 07/12/18 15:31 85 30 H 07/12/18 15:30 91/52 L 07/12/18 15:29 96 H 22 07/12/18 15:28 98 H 18 07/12/18 15:27 114 H 20 07/12/18 15:26 109 H 22 07/12/18 15:25 108 H 23 07/12/18 15:24 120 H 30 H 07/12/18 15:23 106 H 29 H 07/12/18 15:22 111 H 07/12/18 15:21 100 H 25 H 07/12/18 15:20 90 30 H 07/12/18 15:19 99 H 29 H 07/12/18 15:18 92 H 24 07/12/18 15:17 100 H 30 H 07/12/18 15:16 105 H 33 H 07/12/18 15:15 83/50 L 07/12/18 15:14 90 24 07/12/18 15:13 96 H 07/12/18 15:12 99 H 07/12/18 15:11 97 H 37 H 07/12/18 15:10 115 H 39 H 07/12/18 15:09 97 H 39 H 07/12/18 15:08 100 H 28 H 07/12/18 15:07 110 H 45 H 07/12/18 15:06 124 H 07/12/18 15:05 90 25 H 07/12/18 15:04 103 H 27 H 07/12/18 15:03 116 H 97 H 07/12/18 15:02 122 H 28 H 07/12/18 15:01 119 H 29 H 07/12/18 15:00 104/52 L 07/12/18 14:59 111 H 18 11/29/18 14:58 106 H 25 H Intake and Output (Last 8hrs): Intake & Output 07/12/18 07/12/18 07/12/18 06:59 14:59 22:59 Intake Total 980 200 Output Total 240 Balance 740 200 Weight 503 lb Intake: IV 500 200 Right Upper arm 500 Oral 480 Output: Urine 240 Urine, Voided 240 - Medications Active Medications: Active Medications Generic Name Dose Route Start Last Admin Trade Name Freq PRN Reason Stop Dose Admin Albuterol/Ipratropium 3 ml 07/10/18 12:00 07/12/18 13:43 Duoneb 3 Mg/0.5 Mg (3 Ml) Ud IH 3 ml Q6 RONI Administration Amino Acid Protein 15 gm 07/12/18 18:00 07/12/18 17:50 Prostat 15 G Packet GT 15 gm BID RONI Administration Digoxin 0.125 mg 07/12/18 14:00 07/12/18 15:00 Digoxin PO 0.125 mg 1400 RONI Administration Diltiazem HCl 60 mg 07/11/18 18:00 07/11/18 18:06 Cardizem PO 60 mg TID RONI Administration Ergocalciferol 1 cap 07/10/18 16:00 07/11/18 13:15 Drisdol 50,000 Intl Units Cap PO 1 cap Q7D RONI Administration Ferrous Gluconate 324 mg 07/10/18 18:00 07/12/18 17:28 Fergon PO 324 mg TID RONI Administration Fluticasone Propionate 1 actuation 07/10/18 10:00 07/12/18 09:34 Flonase MARIAM 1 spr DAILY RONI Administration Furosemide 40 mg 07/12/18 10:00 07/12/18 09:32 Lasix IVP Not Given DAILY RONI Hydrocortisone Sodium Succinate 50 mg 07/12/18 06:00 07/12/18 13:29 Solu-Cortef IVP 50 mg Q8 RONI Administration Doxycycline Hyclate 100 mg/ 100 mls @ 100 mls/hr 07/10/18 10:00 07/12/18 09:31 Sodium Chloride IVPB 100 mls/hr Q12 RONI Administration Protocol Meropenem/Sodium Chloride 500 mg in 50 mls @ 100 mls/hr 07/10/18 22:00 07/12/18 09:31 Merrem Iv 500 Mg/Ns 50 Ml IVPB 07/19/18 22:01 100 mls/hr Q12 RONI Administration Protocol Linezolid 600 mg in 300 mls @ 200 mls/hr 07/10/18 22:00 07/12/18 09:32 Zyvox 600mg/300ml D5w IVPB 07/19/18 22:01 200 mls/hr Q12 RONI Administration Protocol NOREPINEPHRINE BIT/0.9 % NACL 4 mg in 250 mls @ 15 mls/hr 07/10/18 14:39 07/12/18 07:00 Levophed 4 Mg/ 250 Ml Ns Premixed IV 0 mcg/min .[id number] PRN 0 mls/hr TITRATE PER MD ORDER Titration Protocol 4 MCG/MIN Insulin Human Lispro 0 units 07/12/18 16:30 07/12/18 17:25 Humalog Low SC 1 u ACHS RONI Administration Protocol Levothyroxine Sodium 25 mcg 07/10/18 10:00 07/12/18 09:31 Synthroid PO 25 mcg DAILY RONI Administration Midodrine 10 mg 07/11/18 18:00 07/12/18 17:28 Proamatine PO 10 mg TID RONI Administration Ondansetron HCl 4 mg 07/12/18 08:37 07/12/18 08:54 Zofran Inj IVP 4 mg Q6H PRN Administration Nausea/Vomiting Pantoprazole Sodium 40 mg 07/10/18 10:00 07/12/18 09:31 Protonix Ec Tab PO 40 mg DAILY RONI Administration Silver Sulfadiazine 0 ea 07/11/18 12:30 07/12/18 12:57 Silvadene 1% TOP 1 applic Q12H RONI Administration Vitamin B Complex/Vit C/Folic Acid 1 tab 07/11/18 08:00 07/12/18 08:53 Nephro-Adonis PO 1 tab 0800 RONI Administration Warfarin Sodium 3 mg 07/12/18 18:00 07/12/18 17:28 Coumadin PO 3 mg 1800 RONI Administration Protocol - Patient Studies Lab Studies: Microbiology Studies 07/10/18 17:15 Blood Culture - Preliminary Blood NO GROWTH AFTER 48 HOURS 07/10/18 22:00 MRSA Culture (Admit) - Final Naris MRSA NOT DETECTED 07/10/18 17:00 Blood Culture - Preliminary Blood NO GROWTH AFTER 48 HOURS Lab Studies 07/12/18 07/12/18 07/12/18 Range/Units 16:22 11:23 07:31 WBC (4.5-11.0) 10^3/uL RBC (3.5-6.1) 10^6/uL Hgb (12.0-16.0) g/dL Hct (36.0-48.0) % MCV (80.0-105.0) fl MCH (25.0-35.0) pg MCHC (31.0-37.0) g/dl RDW (11.5-14.5) % Plt Count (120.0-450.0) 10^3/uL MPV (7.0-11.0) fl PT (9.4-12.5) SECONDS INR Sodium (132-148) mmol/L Potassium (3.6-5.0) mmol/L Chloride (98-107) mmol/L Carbon Dioxide (21-33) mmol/L Anion Gap (10-20) BUN (7-21) mg/dL Creatinine (0.7-1.2) mg/dl Est GFR ( Amer) Est GFR (Non-Af Amer) POC Glucose (mg/dL) 164 H 162 H 117 H (65-110) mg/dL Random Glucose (70-110) mg/dL Calcium (8.4-10.5) mg/dL Total Bilirubin (0.2-1.3) mg/dL AST (14-36) U/L ALT (7-56) U/L Alkaline Phosphatase (38-126) U/L Total Protein (5.8-8.3) g/dL Albumin (3.0-4.8) g/dL Globulin gm/dL Albumin/Globulin Ratio (1.1-1.8) TSH 3rd Generation (0.46-4.68) mIU/mL 07/12/18 07/12/18 07/12/18 Range/Units 07:00 07:00 07:00 WBC (4.5-11.0) 10^3/uL RBC (3.5-6.1) 10^6/uL Hgb (12.0-16.0) g/dL Hct (36.0-48.0) % MCV (80.0-105.0) fl MCH (25.0-35.0) pg MCHC (31.0-37.0) g/dl RDW (11.5-14.5) % Plt Count (120.0-450.0) 10^3/uL MPV (7.0-11.0) fl PT 17.7 H (9.4-12.5) SECONDS INR 1.53 Sodium 135 (132-148) mmol/L Potassium 3.6 (3.6-5.0) mmol/L Chloride 105 (98-107) mmol/L Carbon Dioxide 24 (21-33) mmol/L Anion Gap 10 (10-20) BUN 34 H (7-21) mg/dL Creatinine 2.2 H (0.7-1.2) mg/dl Est GFR ( Amer) 26 Est GFR (Non-Af Amer) 22 POC Glucose (mg/dL) (65-110) mg/dL Random Glucose 115 H (70-110) mg/dL Calcium 8.1 L (8.4-10.5) mg/dL Total Bilirubin 0.6 (0.2-1.3) mg/dL AST 18 (14-36) U/L ALT 20 (7-56) U/L Alkaline Phosphatase 134 H (38-126) U/L Total Protein 5.7 L (5.8-8.3) g/dL Albumin 2.4 L (3.0-4.8) g/dL Globulin 3.3 gm/dL Albumin/Globulin Ratio 0.7 L (1.1-1.8) TSH 3rd Generation 3.24 (0.46-4.68) mIU/mL 07/12/18 07/11/18 Range/Units 07:00 21:48 WBC 14.6 H (4.5-11.0) 10^3/uL RBC 3.26 L (3.5-6.1) 10^6/uL Hgb 8.3 L (12.0-16.0) g/dL Hct 26.7 L (36.0-48.0) % MCV 81.9 (80.0-105.0) fl MCH 25.5 (25.0-35.0) pg MCHC 31.1 (31.0-37.0) g/dl RDW 16.3 H (11.5-14.5) % Plt Count 505 H (120.0-450.0) 10^3/uL MPV 9.3 (7.0-11.0) fl PT (9.4-12.5) SECONDS INR Sodium (132-148) mmol/L Potassium (3.6-5.0) mmol/L Chloride (98-107) mmol/L Carbon Dioxide (21-33) mmol/L Anion Gap (10-20) BUN (7-21) mg/dL Creatinine (0.7-1.2) mg/dl Est GFR ( Amer) Est GFR (Non-Af Amer) POC Glucose (mg/dL) 109 (65-110) mg/dL Random Glucose (70-110) mg/dL Calcium (8.4-10.5) mg/dL Total Bilirubin (0.2-1.3) mg/dL AST (14-36) U/L ALT (7-56) U/L Alkaline Phosphatase (38-126) U/L Total Protein (5.8-8.3) g/dL Albumin (3.0-4.8) g/dL Globulin gm/dL Albumin/Globulin Ratio (1.1-1.8) TSH 3rd Generation (0.46-4.68) mIU/mL Laboratory Results - last 24 hr 07/11/18 07/12/18 07/12/18 21:48 07:00 07:00 WBC 14.6 H RBC 3.26 L Hgb 8.3 L Hct 26.7 L MCV 81.9 MCH 25.5 MCHC 31.1 RDW 16.3 H Plt Count 505 H MPV 9.3 PT INR Sodium 135 Potassium 3.6 Chloride 105 Carbon Dioxide 24 Anion Gap 10 BUN 34 H Creatinine 2.2 H Est GFR ( Amer) 26 Est GFR (Non-Af Amer) 22 POC Glucose (mg/dL) 109 Random Glucose 115 H Calcium 8.1 L Total Bilirubin 0.6 AST 18 ALT 20 Alkaline Phosphatase 134 H Total Protein 5.7 L Albumin 2.4 L Globulin 3.3 Albumin/Globulin Ratio 0.7 L TSH 3rd Generation 07/12/18 07/12/18 07/12/18 07:00 07:00 07:31 WBC RBC Hgb Hct MCV MCH MCHC RDW Plt Count MPV PT 17.7 H INR 1.53 Sodium Potassium Chloride Carbon Dioxide Anion Gap BUN Creatinine Est GFR ( Amer) Est GFR (Non-Af Amer) POC Glucose (mg/dL) 117 H Random Glucose Calcium Total Bilirubin AST ALT Alkaline Phosphatase Total Protein Albumin Globulin Albumin/Globulin Ratio [facility] 3rd Generation 3.24 07/12/18 07/12/18 11:23 16:22 WBC RBC Hgb Hct MCV MCH MCHC RDW Plt Count MPV PT INR Sodium Potassium Chloride Carbon Dioxide Anion Gap BUN Creatinine Est GFR ( Amer) Est GFR (Non-Af Amer) POC Glucose (mg/dL) 162 H 164 H Random Glucose Calcium Total Bilirubin AST ALT Alkaline Phosphatase Total Protein Albumin Globulin Albumin/Globulin Ratio [facility] Critical Care Progress Note - Nutrition Nutrition: Nutrition Category Date Time Status Consistent Carbohydrate [DIET] Diets 07/10/18 Breakfast Ordered Attending/Attestation - Attestation I have personally seen and examined this patient.: Yes I have fully participated in the care of the patient.: Yes I have reviewed all pertinent clinical information: Yes Notes (Text): 07/12/18 18:[address] Sosa note
--- NOTE | 2018-07-12 08:23 | CP.PCM.PN ---
<Lena Johnson - Last Filed: 07/12/18 08:24> Subjective - Date & Time of Evaluation Date of Evaluation: 07/12/18 Time of Evaluation: 08:18 - Subjective Subjective: Gastroenterology Fellow/PGY6 Progress Note Patient notes improved epigastric discomfort. Admits to improving appetite.Denies globus sensation, dysphagia, odynophagia, or vomiting. Denies bowel movement yesterday. A 12-point review of systems negative except for as above. Objective - Vital Signs/Intake and Output Vital Signs (last 24 hours): Temp Pulse Resp BP Pulse Ox 97.9 F 76 15 77/36 L 90 L 07/10/18 04:59 07/12/18 04:40 07/11/18 16:11 07/12/18 00:31 07/11/18 15:50 Intake and Output: 07/12/18 07/12/18 06:59 18:59 Intake Total 980 Output Total 240 Balance 740 - Medications Medications: Current Medications Albuterol/Ipratropium (Duoneb 3 Mg/0.5 Mg (3 Ml) Ud) 3 ml IH Q6 [facility] Last Admin: 07/12/18 07:52 Dose: 3 ml Diltiazem HCl (Cardizem) 60 mg PO TID [facility] Last Admin: 07/11/18 18:06 Dose: 60 mg Ergocalciferol (Drisdol 50,000 Intl Units Cap) 1 cap PO Q7D [facility] Last Admin: 07/11/18 13:15 Dose: 1 cap Ferrous Gluconate (Fergon) 324 mg PO TID [facility] Last Admin: 07/11/18 18:06 Dose: 324 mg Fluticasone Propionate (Flonase) 1 actuation MARIAM DAILY [facility] Last Admin: 07/11/18 14:54 Dose: 1 spr Furosemide (Lasix) 40 mg IVP DAILY [facility] Hydrocortisone Sodium Succinate (Solu-Cortef) 50 mg IVP Q8 [facility] Last Admin: 07/12/18 07:55 Dose: 50 mg Vasopressin 20 units/ Sodium (Chloride) 101 mls @ 9.09 mls/hr IV .Q11H7M [facility]; Protocol Last Admin: 07/12/18 00:31 Dose: 9.09 mls/hr Doxycycline Hyclate 100 mg/ (Sodium Chloride) 100 mls @ 100 mls/hr IVPB Q12 [facility]; Protocol Last Admin: 07/11/18 21:20 Dose: 100 mls/hr Meropenem/Sodium Chloride (Merrem Iv 500 Mg/Ns 50 Ml) 500 mg in 50 mls @ 100 mls/hr IVPB Q12 [facility]; Protocol Stop: 07/19/18 22:01 Last Admin: 07/11/18 21:19 Dose: 100 mls/hr Linezolid (Zyvox 600mg/300ml D5w) 600 mg in 300 mls @ 200 mls/hr IVPB Q12 [facility]; Protocol Stop: 07/19/18 22:01 Last Admin: 07/11/18 21:21 Dose: 200 mls/hr NOREPINEPHRINE BIT/0.9 % NACL (Levophed 4 Mg/ 250 Ml Ns Premixed) 4 mg in 250 mls @ 15 mls/hr IV .[id number] PRN; Protocol PRN Reason: TITRATE PER MD ORDER Last Admin: 07/12/18 04:09 Dose: 3 mcg/min, 11.25 mls/hr Levothyroxine Sodium (Synthroid) 25 mcg PO DAILY [facility] Last Admin: 07/11/18 13:15 Dose: 25 mcg Midodrine (Proamatine) 10 mg PO TID [facility] Last Admin: 07/11/18 18:06 Dose: 10 mg Pantoprazole Sodium (Protonix Ec Tab) 40 mg PO DAILY [facility] Last Admin: 07/11/18 13:15 Dose: 40 mg Silver Sulfadiazine (Silvadene 1%) 0 ea TOP Q12H [facility] Last Admin: 07/12/18 00:30 Dose: 1 applic Vitamin B Complex/Vit C/Folic Acid (Nephro-Miguelito) 1 tab PO 0800 [facility] Last Admin: 07/11/18 13:15 Dose: 1 tab - Labs Labs: 07/12/18 07:00 07/12/18 07:00 PT 17.7 SECONDS (9.4-12.5) H 07/12/18 07:00 INR 1.53 07/12/18 07:00 - Constitutional Appears: Non-toxic, No Acute Distress - Head Exam Head Exam: ATRAUMATIC, NORMOCEPHALIC - Eye Exam Eye Exam: EOMI, PERRL. absent: Scleral icterus Pupil Exam: PERRL. absent: Miosis, Mydriatic - ENT Exam ENT Exam: Mucous Membranes Moist, Normal Oropharynx - Neck Exam Neck Exam: Full ROM, Normal Inspection - Respiratory Exam Respiratory Exam: Clear to Ausculation Bilateral. absent: Rales, Rhonchi, Wheezes - Cardiovascular Exam Cardiovascular Exam: RRR, +S1, +S2. absent: Gallop, Rubs - GI/Abdominal Exam GI & Abdominal Exam: Soft, Normal Bowel Sounds. absent: Distended, Firm, Guarding, Rigid, Tenderness, Organomegaly, Rebound - Extremities Exam Additional comments: B/L LE lymphedema - Neurological Exam Neurological Exam: Alert, Awake - Psychiatric Exam Psychiatric exam: Normal Affect, Normal Mood - Skin Skin Exam: Dry, Intact, Normal Color, Warm Assessment and Plan - Assessment and Plan (Free Text) Assessment: 73 year old female with PMH of morbid obesity, Afib on Coumadin, severe pulmonary HTN, COPD, PVD, and chronic lymphedema presenting with shortness of breath and chest pain. Active treatment of septic shock 2/2 HCAP/lower extremity cellulitis and GI consultation for weight loss. Multiple admissions since March 2018, most recent being June 21/2018 for severe sepsis due to HCAP, COPD exacerbation, and Pseudomonas/ESBL lower extremities wound infections requiring prolonged antibiotic courses. Plan: -follow up speech therapist recommendation on swallowing function -tolerating diet with improving appetite -continue Pepcid BID -U/S- no gallstones or biliary dilatation -would benefit from CT cross-sectional imaging, over the weight limit for evaluation -ICU managing-septic shock -ID managing- follow up recommendations -stool infectious workup ordered- rule out Cdiff when specimen can be obtained -would benefit from elective outpatient endoscopic evaluation to evaluate weight loss after medical optimization -will follow clinical course <Medardo Steele - Last Filed: 07/12/18 08:48> Objective - Vital Signs/Intake and Output Vital Signs (last 24 hours): Temp Pulse Resp BP Pulse Ox 97.9 F 76 15 77/36 L 90 L 07/10/18 04:59 07/12/18 04:40 07/11/18 16:11 07/12/18 00:31 07/11/18 15:50 Intake and Output: 07/12/18 07/12/18 06:59 18:59 Intake Total 980 Output Total 240 Balance 740 - Medications Medications: Current Medications Albuterol/Ipratropium (Duoneb 3 Mg/0.5 Mg (3 Ml) Ud) 3 ml IH Q6 [facility] Last Admin: 07/12/18 07:52 Dose: 3 ml Diltiazem HCl (Cardizem) 60 mg PO TID [facility] Last Admin: 07/11/18 18:06 Dose: 60 mg Ergocalciferol (Drisdol 50,000 Intl Units Cap) 1 cap PO Q7D [facility] Last Admin: 07/11/18 13:15 Dose: 1 cap Ferrous Gluconate (Fergon) 324 mg PO TID [facility] Last Admin: 07/11/18 18:06 Dose: 324 mg Fluticasone Propionate (Flonase) 1 actuation MARIAM DAILY [facility] Last Admin: 07/11/18 14:54 Dose: 1 spr Furosemide (Lasix) 40 mg IVP DAILY [facility] Hydrocortisone Sodium Succinate (Solu-Cortef) 50 mg IVP Q8 [facility] Last Admin: 07/12/18 07:55 Dose: 50 mg Vasopressin 20 units/ Sodium (Chloride) 101 mls @ 9.09 mls/hr IV .Q11H7M [facility]; Protocol Last Admin: 07/12/18 00:31 Dose: 9.09 mls/hr Doxycycline Hyclate 100 mg/ (Sodium Chloride) 100 mls @ 100 mls/hr IVPB Q12 [facility]; Protocol Last Admin: 07/11/18 21:20 Dose: 100 mls/hr Meropenem/Sodium Chloride (Merrem Iv 500 Mg/Ns 50 Ml) 500 mg in 50 mls @ 100 mls/hr IVPB Q12 [facility]; Protocol Stop: 07/19/18 22:01 Last Admin: 07/11/18 21:19 Dose: 100 mls/hr Linezolid (Zyvox 600mg/300ml D5w) 600 mg in 300 mls @ 200 mls/hr IVPB Q12 [facility]; Protocol Stop: 07/19/18 22:01 Last Admin: 07/11/18 21:21 Dose: 200 mls/hr NOREPINEPHRINE BIT/0.9 % NACL (Levophed 4 Mg/ 250 Ml Ns Premixed) 4 mg in 250 mls @ 15 mls/hr IV .[id number] PRN; Protocol PRN Reason: TITRATE PER MD ORDER Last Admin: 07/12/18 04:09 Dose: 3 mcg/min, 11.25 mls/hr Levothyroxine Sodium (Synthroid) 25 mcg PO DAILY [facility] Last Admin: 07/11/18 13:15 Dose: 25 mcg Midodrine (Proamatine) 10 mg PO TID [facility] Last Admin: 07/11/18 18:06 Dose: 10 mg Pantoprazole Sodium (Protonix Ec Tab) 40 mg PO DAILY [facility] Last Admin: 07/11/18 13:15 Dose: 40 mg Silver Sulfadiazine (Silvadene 1%) 0 ea TOP Q12H [facility] Last Admin: 07/12/18 00:30 Dose: 1 applic Vitamin B Complex/Vit C/Folic Acid (Nephro-Miguelito) 1 tab PO 0800 [facility] Last Admin: 07/11/18 13:15 Dose: 1 tab - Labs Labs: 07/12/18 07:00 07/12/18 07:00 PT 17.7 SECONDS (9.4-12.5) H 07/12/18 07:00 INR 1.53 07/12/18 07:00 Attending/Attestation - Attestation I have fully participated in the care of the patient.: Yes I have reviewed all pertinent clinical information, including history, physical exam and plan: Yes Notes (Text): 07/12/18 08:33 Morbid obesity Atrial fibrillation on coumadin COPD Decreased appetite, weight loss - deconditioning Pneumonia - Diet as tolerated - Patient to receive swallow evaluation, follow up recommendations - Continue with antibiotic therapy as per ID - Continue with h2 cj therapy - OOB to chair - Patient would eventually benefit from elective outpatient endoscopic evaluation following resolution of acute medical issues. No planned GI intervention, will sign off case. Please reconsult as necessary, thank you.
[2018-07-12] MEDS: Multivitamin Vitamin B Complex (Nephro-Vite) Tab PO SCH (08:53)
[2018-07-12] MEDS: Levothyroxine 25 MCG TAB PO SCH (09:31)
[2018-07-12] MEDS: MEROPENEM 500 MG in NS 500 MG/50 ML BAG IVPB SCH ×2 (09:31→23:44)
[2018-07-12] MEDS: Pantoprazole 40 mg EC Tab PO SCH (09:31)
[2018-07-12] MEDS: Linezolid 600 mg in D5W 300 ml 600 MG/300 ML BAG IVPB SCH ×2 (09:32→23:45)
[2018-07-12] MEDS: Fluticasone Nasal 50 mcg/Spray NAS SCH (09:34)
--- NOTE | 2018-07-12 09:42 | PN ---
DATE: 07/12/2018 SUBJECTIVE: The patient is in bed. PHYSICAL EXAMINATION: GENERAL: In no acute distress, nontoxic on exam. VITAL SIGNS: The patient's temperature is 97, blood pressure is 77/36, respiratory rate of 15. HEENT: Examination of HEENT is unremarkable. NECK: Supple. LUNGS: Decreased breath sounds. HEART: Normal S1, S2. No S3, S4. ABDOMEN: Soft, nontender. No organomegaly. No rebound or guarding. No masses. LABORATORY DATA: Reveals the patient's white count of 14,600, hemoglobin of 8. Coagulation is noted and chemistries reveals BUN of 37, creatinine of 2.4. Urinalysis is noted. Serology is negative. Microbiology reveals the blood cultures are negative. ASSESSMENT AND PLAN: This is a 73-year-old female with history of super morbid obesity with BMI of 70 who was admitted with severe sepsis secondary to healthcare-associated pneumonia with acute on chronic kidney injury, history of extended-spectrum beta-lactamases, Escherichia Coli and Pseudomonas of lower extremities with chronic lymphedema and chronic congestive heart failure, diabetes mellitus and morbid obesity. On Zyvox, meropenem and doxycycline day #3 and thus far with negative influenza, negative urinalysis and negative procalcitonin with a procalcitonin 0.37 and creatinine of 2.4 which is increased since the last admission with negative blood cultures. The sputum cultures are pending. MRSA screen is pending and the urine cultures are pending. On doxycycline and meropenem day #3 with the patient also on Solu-Cortef. The patient is also on Zyvox day #3. We will make further recommendations upon availability of initial results and we will follow closely with you. The patient is still hypotensive. Overall prognosis is quite poor. Santy Fernandez MD
--- NOTE | 2018-07-12 12:11 | PN ---
DATE: 07/12/2018 SUBJECTIVE: The patient was seen and examined at bedside. She is alert, awake, comfortable, oriented x3. Her blood pressure substantially improved. She is off of norepinephrine and vasopressin was just stopped. PHYSICAL EXAMINATION: VITAL SIGNS: Blood pressure 90/53, heart rate 76, oxygen saturation 92% on room air. ENT: Head and neck atraumatic. LUNGS: Clear to auscultation bilaterally. HEART: Regular rate and rhythm. S1, S2 normal. ABDOMEN: Soft, nontender, nondistended. MUSCULOSKELETAL: Substantial hip and leg obesity. SKIN: Moist. PSYCH: The patient is alert, awake and oriented. NEURO: The patient moves all extremities spontaneously. LABORATORY DATA: Sodium 135, potassium 3.6, chloride 105, carbon dioxide 24, BUN 34, creatinine 2.2, down from 2.4. WBC 14.6, hemoglobin 8.3, platelet 505. INR 1.53 (Coumadin 3 mg p.o. at 06:00 p.m. started). MEDICATIONS: DuoNeb every 6 hours, doxycycline, Flonase, vitamin D, Lasix 40 mg daily, hydrocortisone 50 mg every 8 hours, Synthroid, meropenem, midodrine, Zofran p.r.n., Percocet, Protonix, vitamin K, vitamin B, vitamin C, linezolid. ASSESSMENT AND PLAN: This 73-year lady who initially presented with what appears to be septic shock versus congestive heart failure exacerbation in the setting of right ventricular failure and pulmonary hypertension. The patient received gentle hydration in the Emergency Room, however, later on started on pressors which were subsequently weaned down and then off. Coincidentally with that, the patient was started on diuretics. Her blood pressure substantially improved. Her mental status improved. At present time, we will continue with midodrine at 10 mg p.o. t.i.d. and stress-dose steroids. We are holding Cardizem. Her heart rate is controlled. We will continue to target euvolemia, euglycemia, normothermia and oxygen saturation more than 90%. We will continue with gastrointestinal prophylaxis. Her INR 1.53, Zocor, Coumadin at 3 mg p.o. daily started. Okay to downgrade to telemetry. Discussed with Cardiology and primary medical doctor. ccm time 40 min Gigi Sosa MD ANUP
--- NOTE | 2018-07-12 12:18 | PN ---
DATE: 07/12/2018 SUBJECTIVE: I saw her in intensive care unit today. She is quite nauseous. She had a few bites of her breakfast and she became very nauseous. I ordered some Zofran for her. I did have a long discussion with the , answered many questions about her and her condition. MEDICATIONS: She is on Cardizem, Vibramycin IV, Drisdol, DuoNebs, Fergon, Flonase, potassium replacement, Lasix IV, Merrem IV, Nephro-Miguelito, norepinephrine for the low blood pressure, Percocet as needed which was discontinued, ProAmatine, Protonix, Silvadene cream, Solu-Cortef 50 IV every eight hours, Synthroid, vasopressin, vitamin K, Zofran and Zyvox IV. PHYSICAL EXAMINATION: VITAL SIGNS: She has a 97.9 temperature, 85 pulse, 85/42 blood pressure, 14 respiratory rate, and she is on 2 liters nasal cannula. She is quite miserable and nauseous. HEAD: Atraumatic, normocephalic. HEART: Regular rate. LUNGS: Decreased breath sounds, but clear. ABDOMEN: Soft, morbidly obese. Decreased bowel sounds. EXTREMITIES: +4/4 pitting edema. She used to be 700 pounds. She is down to 503 pounds. She just stopped eating. So, I did a bunch of blood test. LABORATORY DATA: She has a 14.6 white count, high; 8.3 hemoglobin; 26.7 hematocrit with 505 platelets. She has a 1.53 INR and she is getting treated with vitamin K. It came down nicely. She has a 135 sodium, potassium 3.6, BUN 34, creatinine 2.2 which is coming down from her acute kidney injury. GFR is 22, sugar is 117, calcium is 8.1, total bili is 0.6, AST is 18, ALT is 20, alk phos 134, total protein is 5.7. TSH is 3.28. Procalcitonin is 0.37. Her carcinogen CEA was 1. Her CA 19-9 was very high at 83.6. The CA-125 was 5.5. It worries me that the CA 19-9 was 83.6. ASSESSMENT AND PLAN: She is being seen by multiple physicians, GI, Jowl Trimmer, Renal, Infectious Disease, Cardiology and hopefully we can get her to feel better without the nauseousness. She is in a lot of trouble that way. She has multiple issues; congestive heart failure, chronic obstructive pulmonary disease, acute kidney injury, rapid atrial fibrillation, severe sepsis. Alan Mann DO
--- NOTE | 2018-07-12 13:23 | CP.PCM.PN ---
Subjective - Date & Time of Evaluation Date of Evaluation: 07/12/18 Time of Evaluation: 13:22 - Subjective Subjective: Nephrology Consultation Note: Assessment: stable Acute Kidney Injury (N17.9) likely hemodynamic due to hypotension, A fib with RV R supratherapeutic INR Anemia iron def Vit D def with secondary hyperparathyroidism diabetes Mellitus ( years), COPD/emphysema with cor pulmonale with severe pHTN and valvular insufficiency, A fib, PVD, CAD. morbid obesity left kidney cyst Plan No acute need for renal replacement therapy at this time. Maintain hemodynamics stable. Avoid hypotension. Patient not on ACEI/ARB due to recent CRIS and low BP. but on a fib rate control meds. vasopressin drip as per ICU. Monitor Input/Output, daily weights and renal function with basic metabolic desk monitor dig level started iron 324 mg TID and MVI daily and weekly Vit D Dose meds/antibiotics for reduced GFR. Avoid fleets enema/magnesium based laxatives. Avoid nephrotoxins/NSAIDs/ iodinated contrast (unless needed emergently) Glycemic control Further work up/management as per primary team Thanks for allowing me to participate in care of your patient. Will follow patient with you. Please call if any Qs. had d/w team. Dr Ramiro Partida Office: [phone] Chief Complaint; SOB Reason for consult: Acute Kidney Injury HPI: Pt is a 73 F with hx of diabetes Mellitus ( years), COPD/emphysema with cor pulmonale with severe pHTN and multiple valvular insufficiency, A fib, PVD, CAD, left kidney cyst recently admitted with sepsis with cellulits and pneumonia. seen for CRIS with cr 0.6 at baseline and 1.3 at d/c. pt came with chest pain and SOB. Denies OTC/herbal meds or NSAIDs No recent iodinated contrast exposure. Noted obvious episodes of low sBP (80- 90s). reports chronic legs swelling. not aware about kidney disease in past. ROS: Cardiovascular: No chest pain. Pulmonary: improved chronic shortness of breath Gastrointestinal: denies abdominal pain No nausea. No vomiting. Genitourinary: No pain while urinating. Denies blood in urine. All other negative except as mentioned in HPI. has chronic legs swelling Physical Examination: General Appearance: Comfortable, in no acute respiratory distress, co-operative. morbidly obese ++ Vitals reviewed and noted as below Head; Atraumatic, normocephalic ENT: no ulcers no thrush. Tongue is midline. Oropharynx: no rash or ulcers. EYES: Pupils are equal, round and reactive to light accommodation. Eye muscles and extraocular movement intact. Sclera is anicteric. Neck; supple no lymphadenopathy, no thyromegaly or bruit Lungs: Increased respiratory rate/effort. Breath sounds bilateral equal and clear Heart: Normal rate. s1s2 normal. No rub or gallop. Extremities: 2-3+ edema. No varicose veins Neurological: Patient is alert, awake and oriented to person, place and time. No focal deficit. Strength bilateral appropriate and equal Skin: Warm and dry. Normal turgor. No rash. Palpitation: Normal elasticity for age Abdomen: Abdomen is soft. Bowel sounds +. There is no abdominal tenderness, no guarding/rigidity no organomegaly Psych: normal insight and normal affect/mood MSK: no joint tenderness or swelling. Digits and nails normal, no deformity : kidney or bladder not palpable Labs/imaging reviewed. Past medical history, past surgical history, family history, social history, allergy reviewed and noted as below Family hx: no hx of CKD. Rest non-contributory Echo; normal lvef, severe MR/TR/IL renal imaging: left kidney cyst TSAT/Ferritin 12/356, SPEP/DILSHAD neg and normal FLC assay Vit D <12.8 PTH 286 urine alb/cr 126 mg/g Objective - Vital Signs/Intake and Output Vital Signs (last 24 hours): Temp Pulse Resp BP Pulse Ox 97.9 F 112 H 24 90/58 L 100 07/10/18 04:59 07/12/18 11:25 07/12/18 11:25 07/12/18 11:19 07/12/18 11:00 Intake and Output: 07/12/18 07/12/18 06:59 18:59 Intake Total 980 Output Total 240 Balance 740 - Medications Medications: Current Medications Albuterol/Ipratropium (Duoneb 3 Mg/0.5 Mg (3 Ml) Ud) 3 ml IH Q6 [facility] Last Admin: 07/12/18 07:52 Dose: 3 ml Diltiazem HCl (Cardizem) 60 mg PO TID [facility] Last Admin: 07/11/18 18:06 Dose: 60 mg Ergocalciferol (Drisdol 50,000 Intl Units Cap) 1 cap PO Q7D [facility] Last Admin: 07/11/18 13:15 Dose: 1 cap Ferrous Gluconate (Fergon) 324 mg PO TID [facility] Last Admin: 07/12/18 09:31 Dose: 324 mg Fluticasone Propionate (Flonase) 1 actuation MARIAM DAILY [facility] Last Admin: 07/12/18 09:34 Dose: 1 spr Furosemide (Lasix) 40 mg IVP DAILY [facility] Last Admin: 07/12/18 09:32 Dose: Not Given Hydrocortisone Sodium Succinate (Solu-Cortef) 50 mg IVP Q8 [facility] Last Admin: 07/12/18 07:55 Dose: 50 mg Doxycycline Hyclate 100 mg/ (Sodium Chloride) 100 mls @ 100 mls/hr IVPB Q12 [facility]; Protocol Last Admin: 07/12/18 09:31 Dose: 100 mls/hr Meropenem/Sodium Chloride (Merrem Iv 500 Mg/Ns 50 Ml) 500 mg in 50 mls @ 100 mls/hr IVPB Q12 [facility]; Protocol Stop: 07/19/18 22:01 Last Admin: 07/12/18 09:31 Dose: 100 mls/hr Linezolid (Zyvox 600mg/300ml D5w) 600 mg in 300 mls @ 200 mls/hr IVPB Q12 [facility]; Protocol Stop: 07/19/18 22:01 Last Admin: 07/12/18 09:32 Dose: 200 mls/hr NOREPINEPHRINE BIT/0.9 % NACL (Levophed 4 Mg/ 250 Ml Ns Premixed) 4 mg in 250 mls @ 15 mls/hr IV .[id number] PRN; Protocol PRN Reason: TITRATE PER MD ORDER Last Admin: 07/12/18 04:09 Dose: 3 mcg/min, 11.25 mls/hr Levothyroxine Sodium (Synthroid) 25 mcg PO DAILY [facility] Last Admin: 07/12/18 09:31 Dose: 25 mcg Midodrine (Proamatine) 10 mg PO TID [facility] Last Admin: 07/12/18 09:30 Dose: 10 mg Ondansetron HCl (Zofran Inj) 4 mg IVP Q6H PRN PRN Reason: Nausea/Vomiting Last Admin: 07/12/18 08:54 Dose: 4 mg Pantoprazole Sodium (Protonix Ec Tab) 40 mg PO DAILY [facility] Last Admin: 07/12/18 09:31 Dose: 40 mg Silver Sulfadiazine (Silvadene 1%) 0 ea TOP Q12H [facility] Last Admin: 07/12/18 12:57 Dose: 1 applic Vitamin B Complex/Vit C/Folic Acid (Nephro-Miguelito) 1 tab PO 0800 [facility] Last Admin: 07/12/18 08:53 Dose: 1 tab Warfarin Sodium (Coumadin) 3 mg PO 1800 [facility]; Protocol - Labs Labs: 07/12/18 07:00 07/12/18 07:00 PT 17.7 SECONDS (9.4-12.5) H 07/12/18 07:00 INR 1.53 07/12/18 07:00
[2018-07-12] MEDS: Digoxin 125 mcg (0.125 mg) Tab PO SCH (15:00)
[2018-07-12] MEDS: Insulin Lispro (humaLOG) LOW Coverage SC SCH ×2 (17:25→23:43)
[2018-07-12] MEDS: Prostat 15 g packet GT SCH (17:50)
--- NOTE | 2018-07-12 18:07 | PN ---
DATE: 07/12/2018 CARDIOLOGY FOLLOWUP SUBJECTIVE: The patient is awake. Dyspnea is much improved. PHYSICAL EXAMINATION: VITAL SIGNS: Blood pressure is up to 90/60 and heart rate is 100. Atrial fibrillation. NECK: Negative JVD. LUNGS: Decreased breath sounds. HEART: S1 and S2. EXTREMITIES: Chronic edema. LABORATORY DATA: Hemoglobin is 8.3. BUN and creatinine are 34 and 2.2 with glucose of 115. IMPRESSION: 1. Atrial fibrillation. 2. Pulmonary hypertension. 3. Chronic obstructive pulmonary disease. 4. Chronic pedal edema. 5. Intermittent hypotension. PLAN: Given these findings, her Cardizem is at hold. Digoxin has been started for better heart rate control. Patient can be transferred to telemetry if necessary. Ryan Turk MD
[2018-07-12] MEDS: Sodium Chloride 0.9% 250 ML IV SCH ×2 (18:23→19:03)
[2018-07-13] MEDS: Silver Sulfadiazine 1% Cream (400 gm) TOP SCH ×2 (05:44→13:03)
[2018-07-13 07:28] LABS: HEMOGLOBIN 8.4 g/dL (12.0-16.0); MEAN CELL VOLUME 82.6 fl (80.0-105.0); MEAN CORPUSCULAR HEMOGLOBIN 25.1 pg (25.0-35.0); MEAN CORPUSCULAR HGB CONC 30.4 g/dl (31.0-37.0); RBC 3.34 10^6/uL (3.5-6.1); RED CELL DISTRIBUTION WIDTH 16.4 % (11.5-14.5); WHITE BLOOD COUNT 14.5 10^3/uL (4.5-11.0)
[2018-07-13 07:38] LABS: ALB/GLOB RATIO 0.7 (1.1-1.8); ALBUMIN 2.5 g/dL (3.0-4.8); CALCIUM 8.5 mg/dL (8.4-10.5)
[2018-07-13] MEDS: Albuterol-Ipratrop 3 mg / 0.5 (3 ml) UD IH SCH ×3 (08:01→20:15)
[2018-07-13] MEDS: Insulin Lispro (humaLOG) LOW Coverage SC SCH ×4 (08:57→21:56)
[2018-07-13] MEDS: Multivitamin Vitamin B Complex (Nephro-Vite) Tab PO SCH (08:58)
[2018-07-13] MEDS: Pantoprazole 40 mg EC Tab PO SCH (09:34)
[2018-07-13] MEDS: Levothyroxine 25 MCG TAB PO SCH (09:35)
[2018-07-13] MEDS: MEROPENEM 500 MG in NS 500 MG/50 ML BAG IVPB SCH ×2 (09:35→21:00)
[2018-07-13] MEDS: Linezolid 600 mg in D5W 300 ml 600 MG/300 ML BAG IVPB SCH ×2 (09:36→21:36)
--- NOTE | 2018-07-13 11:34 | PN ---
DATE: 07/13/2018 CARDIOLOGY FOLLOWUP SUBJECTIVE: The patient is sitting in bed, awake, alert. OBJECTIVE: VITAL SIGNS: Blood pressure varies from 94-115 systolic, heart rate in the 80s, atrial fibrillation. NECK: Negative JVD. LUNGS: Decreased breath sounds. HEART: Reveal S1, S2. EXTREMITIES: Chronic edema. LABORATORY DATA: Hemoglobin is 8.4. Chemistries, BUN and creatinine 35 and 2.4 with a glucose of 141. IMPRESSION: 1. Morbid obesity. 2. Chronic atrial fibrillation. 3. Pulmonary hypertension. 4. Chronic obstructive pulmonary disease. 5. Chronic pedal edema. 6. Transient hypotension. Given these findings, blood pressure and heart rate are under control. Her INR is back to 1.53. We would restart her Coumadin today. Ryan Turk MD
[2018-07-13] MEDS: Prostat 15 g packet GT SCH ×2 (13:01→18:47)
[2018-07-13] MEDS: Fluticasone Nasal 50 mcg/Spray NAS SCH (13:04)
[2018-07-13] MEDS: Digoxin 125 mcg (0.125 mg) Tab PO SCH (13:06)
--- NOTE | 2018-07-13 13:08 | PN ---
DATE: 07/13/2018 SUBJECTIVE: I saw her in the intensive care unit. Her is at bedside. She is not eating that well. She is on lots of medications. She is on Cardizem, Coumadin, digoxin, doxycycline IV, Drisdol, DuoNebs, Flovent, Flonase, insulin, Lasix IV, Levophed, Merrem IV, Nephro-Miguelito, ProAmatine, Prostat, Protonix, Silvadene, Solu-Cortef at 50 IV every 8, Synthroid, Zofran and Zyvox IV. She has been losing weight. She has stopped eating and that is very rare for her. She was 700 pounds or greater over the past 15 years of her life, and over the past 3 months, she just stopped eating all of a sudden out of the blue. She was in the hospital 3 months ago, she was 700 pounds and now she is down to 500 pounds and no appetite, not eating and she looks sick. I think she has a cancer. The problem is she is too big to get into an MRI or CAT scan machine. I did an ultrasound that did not prove too much because she has so much adipose tissue, but she is in no pain. She is very weak, very tired, no appetite. PHYSICAL EXAMINATION: VITAL SIGNS: Temperature 97.2; 106, down to 84 pulse; 106/46 blood pressure; 14 respiratory rate and 100 percent O2 sat on 2 liters. HEENT: Head is atraumatic, normocephalic. She looks very drawn, looks lethargic. Oxygen is on. HEART: Regular rate. LUNGS: Decreased breath sounds, poor inspiration. ABDOMEN: Morbidly, morbidly, morbidly obese. There are bowel sounds, nontender even over the pancreas. No guarding. No rebound. No CVA tenderness, but she is so large, it is hard to really get a good feel of the abdomen. EXTREMITIES: Both lower extremities are 4+/4 pitting edema with lymphedema. I am very concerned about her weight loss. I am thinking there must be a cancer going on and it is hard to prove, so I did a bunch of blood tests for Emily. I did a CA-19-9, CA-125 and the CEA. The only one was positive was CA-19-9 at 83.6, which is very high. I called in Dr. Mae the oncologist. I think she might be having pancreatic cancer and that is why she is going through all this and that is why she is having the weight loss. LABORATORY DATA: She has a 14.5 white count on IV antibiotics, 8.4 hemoglobin, 27.6 hematocrit with 478 platelets. INR is 1.53, they have restarted the Coumadin and it was 9. She has 137 sodium; potassium is 4.3; BUN 35; creatinine 2.4, a little bit high; GFR is 20; sugar is 141; calcium is 8.5. Total bili is 0.5, AST is 19, ALT is 16, alk phos 153, total protein is 5.9, TSH is 3.24. ASSESSMENT AND PLAN: So I have great concern that she might be having a pancreatic cancer and that is why she is having weight loss. She has also rapid atrial fibrillation. She was considered severe sepsis when she came in, morbidly obese, congestive heart failure, chronic obstructive pulmonary disease, acute kidney injury and anemia with diabetes. We will see what the oncologist has to say. We will continue aggressive treatment and care. Alan Mann DO MTDD
--- NOTE | 2018-07-13 13:40 | CP.PCM.PN ---
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 morbid obesity left kidney cyst Plan No acute need for renal replacement therapy at this time. Maintain hemodynamics stable. Avoid hypotension. Patient not on ACEI/ARB due to recent CRIS and low BP. but on a fib rate control meds. Monitor Input/Output, daily weights and renal function with basic metabolic monitoring manager dig level started iron 324 mg TID and MVI daily and weekly Vit D Dose meds/antibiotics for reduced GFR. Avoid fleets enema/magnesium based laxatives. Avoid nephrotoxins/NSAIDs/ iodinated contrast (unless needed emergently) Glycemic control Further work up/management as per primary team Thanks for allowing me to participate in care of your patient. Will follow patie nt with you. Please call if any Qs. had d/w team. 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 seen for CRIS with cr 0.6 at baseline and 1.3 at d/c. pt came with chest pain and SOB. Denies OTC/herbal meds or NSAIDs No recent iodinated contrast exposure. Noted obvious episodes of low sBP (80- 90s). reports chronic legs swelling. not aware about kidney disease in past. ROS: Cardiovascular: No chest pain. Pulmonary: improved chronic shortness of breath Gastrointestinal: denies abdominal pain No nausea. No vomiting. Genitourinary: No pain while urinating. Denies blood in urine. All other negative except as mentioned in HPI. has chronic legs swelling Physical Examination: General Appearance: Comfortable, in no acute respiratory distress, co-operative. morbidly obese ++ Vitals reviewed and noted as below Head; Atraumatic, normocephalic ENT: no ulcers no thrush. Tongue is midline. Oropharynx: no rash or ulcers. EYES: Pupils are equal, round and reactive to light accommodation. Eye muscles and extraocular movement intact. Sclera is anicteric. Neck; supple no lymphadenopathy, no thyromegaly or bruit Lungs: Increased respiratory rate/effort. Breath sounds bilateral equal and clear Heart: Normal rate. s1s2 normal. No rub or gallop. Extremities: 2-3+ edema. No varicose veins Neurological: Patient is alert, awake and oriented to person, place and time. No focal deficit. Strength bilateral appropriate and equal Skin: Warm and dry. Normal turgor. No rash. Palpitation: Normal elasticity for age Abdomen: Abdomen is soft. Bowel sounds +. There is no abdominal tenderness, no guarding/rigidity no organomegaly Psych: normal insight and normal affect/mood MSK: no joint tenderness or swelling. Digits and nails normal, no deformity : kidney or bladder not palpable Labs/imaging reviewed. Past medical history, past surgical history, family history, social history, allergy reviewed and noted as below Family hx: no hx of CKD. Rest non-contributory Echo; normal lvef, severe MR/TR/AZ renal imaging: left kidney cyst TSAT/Ferritin 12/356, SPEP/DILSHAD neg and normal FLC assay Vit D <12.8 PTH 286 urine alb/cr 126 mg/g Objective - Vital Signs/Intake and Output Vital Signs (last 24 hours): Temp Pulse Resp BP Pulse Ox 97.2 F L 86 29 H 115/77 67 L 07/12/18 16:00 07/13/18 09:00 07/13/18 09:00 07/13/18 09:35 07/13/18 09:00 Intake and Output: 07/13/18 07/13/18 06:59 18:59 Intake Total 1500 Output Total 30 Balance 1470 - Medications Medications: Current Medications Albuterol/Ipratropium (Duoneb 3 Mg/0.5 Mg (3 Ml) Ud) 3 ml IH [id number] [facility] Last Admin: 07/13/18 13:02 Dose: 3 ml Amino Acid Protein (Prostat 15 G Packet) 15 gm GT BID [facility] Last Admin: 07/13/18 13:01 Dose: 15 gm Digoxin (Digoxin) 0.125 mg PO 1400 [facility] Last Admin: 07/13/18 13:06 Dose: 0.125 mg Diltiazem HCl (Cardizem) 60 mg PO TID [facility] Last Admin: 07/11/18 18:06 Dose: 60 mg Ergocalciferol (Drisdol 50,000 Intl Units Cap) 1 cap PO Q7D [facility] Last Admin: 07/11/18 13:15 Dose: 1 cap Ferrous Gluconate (Fergon) 324 mg PO TID [facility] Last Admin: 07/13/18 13:06 Dose: 324 mg Fluticasone Propionate (Flonase) 1 actuation MARIAM DAILY [facility] Last Admin: 07/13/18 13:04 Dose: 1 spr Furosemide (Lasix) 40 mg IVP DAILY [facility] Last Admin: 07/13/18 09:35 Dose: 40 mg Hydrocortisone Sodium Succinate (Solu-Cortef) 50 mg IVP Q8 [facility] Last Admin: 07/13/18 13:07 Dose: 50 mg Doxycycline Hyclate 100 mg/ (Sodium Chloride) 100 mls @ 100 mls/hr IVPB Q12 [facility]; Protocol Last Admin: 07/13/18 09:35 Dose: 100 mls/hr Meropenem/Sodium Chloride (Merrem Iv 500 Mg/Ns 50 Ml) 500 mg in 50 mls @ 100 mls/hr IVPB Q12 [facility]; Protocol Stop: 07/19/18 22:01 Last Admin: 07/13/18 09:35 Dose: 100 mls/hr Linezolid (Zyvox 600mg/300ml D5w) 600 mg in 300 mls @ 200 mls/hr IVPB Q12 [facility]; Protocol Stop: 07/19/18 22:01 Last Admin: 07/13/18 09:36 Dose: 200 mls/hr NOREPINEPHRINE BIT/0.9 % NACL (Levophed 4 Mg/ 250 Ml Ns Premixed) 4 mg in 250 mls @ 15 mls/hr IV .[id number] PRN; Protocol PRN Reason: TITRATE PER MD ORDER Last Titration: 07/12/18 07:00 Dose: 0 mcg/min, 0 mls/hr Insulin Human Lispro (Humalog Low) 0 units SC ACHS [facility]; Protocol Last Admin: 07/13/18 13:02 Dose: 1 u Levothyroxine Sodium (Synthroid) 25 mcg PO DAILY [facility] Last Admin: 07/13/18 09:35 Dose: 25 mcg Midodrine (Proamatine) 10 mg PO TID [facility] Last Admin: 07/13/18 13:06 Dose: 10 mg Ondansetron HCl (Zofran Inj) 4 mg IVP Q6H PRN PRN Reason: Nausea/Vomiting Last Admin: 07/13/18 09:32 Dose: 4 mg Pantoprazole Sodium (Protonix Ec Tab) 40 mg PO DAILY [facility] Last Admin: 07/13/18 09:34 Dose: 40 mg Silver Sulfadiazine (Silvadene 1%) 0 ea TOP Q12H [facility] Last Admin: 07/13/18 13:03 Dose: 1 applic Vitamin B Complex/Vit C/Folic Acid (Nephro-Miguelito) 1 tab PO 0800 [facility] Last Admin: 07/13/18 08:58 Dose: 1 tab Warfarin Sodium (Coumadin) 3 mg PO 1800 [facility]; Protocol Last Admin: 07/12/18 17:28 Dose: 3 mg - Labs Labs: 07/13/18 07:15 07/13/18 07:15 PT 17.7 SECONDS (9.4-12.5) H 07/12/18 07:00 INR 1.53 07/12/18 07:00
[2018-07-13] MEDS ORDERED: Sodium Chloride 0.45% 1,000 ML IV SCH (19:00)
--- NOTE | 2018-07-13 19:04 | CP.PCM.PN ---
Subjective - Date & Time of Evaluation Date of Evaluation: 07/13/18 Time of Evaluation: 10:25 - Subjective Subjective: Patient is starting to feel better, no fevers, not in distress. Objective - Vital Signs/Intake and Output Vital Signs (last 24 hours): Temp Pulse Resp BP Pulse Ox 97.2 F L 86 29 H 115/77 67 L 07/12/18 16:00 07/13/18 09:00 07/13/18 09:00 07/13/18 09:35 07/13/18 09:00 Intake and Output: 07/13/18 07/13/18 06:59 18:59 Intake Total 1500 Output Total 30 Balance 1470 - Medications Medications: Current Medications Albuterol/Ipratropium (Duoneb 3 Mg/0.5 Mg (3 Ml) Ud) 3 ml IH [id number] [facility] Last Admin: 07/13/18 08:01 Dose: 3 ml Amino Acid Protein (Prostat 15 G Packet) 15 gm GT BID [facility] Last Admin: 07/12/18 17:50 Dose: 15 gm Digoxin (Digoxin) 0.125 mg PO 1400 [facility] Last Admin: 07/12/18 15:00 Dose: 0.125 mg Diltiazem HCl (Cardizem) 60 mg PO TID [facility] Last Admin: 07/11/18 18:06 Dose: 60 mg Ergocalciferol (Drisdol 50,000 Intl Units Cap) 1 cap PO Q7D [facility] Last Admin: 07/11/18 13:15 Dose: 1 cap Ferrous Gluconate (Fergon) 324 mg PO TID [facility] Last Admin: 07/13/18 09:34 Dose: 324 mg Fluticasone Propionate (Flonase) 1 actuation MARIAM DAILY [facility] Last Admin: 07/12/18 09:34 Dose: 1 spr Furosemide (Lasix) 40 mg IVP DAILY [facility] Last Admin: 07/13/18 09:35 Dose: 40 mg Hydrocortisone Sodium Succinate (Solu-Cortef) 50 mg IVP Q8 [facility] Last Admin: 07/13/18 05:41 Dose: 50 mg Doxycycline Hyclate 100 mg/ (Sodium Chloride) 100 mls @ 100 mls/hr IVPB Q12 [facility]; Protocol Last Admin: 07/13/18 09:35 Dose: 100 mls/hr Meropenem/Sodium Chloride (Merrem Iv 500 Mg/Ns 50 Ml) 500 mg in 50 mls @ 100 mls/hr IVPB Q12 [facility]; Protocol Stop: 07/19/18 22:01 Last Admin: 07/13/18 09:35 Dose: 100 mls/hr Linezolid (Zyvox 600mg/300ml D5w) 600 mg in 300 mls @ 200 mls/hr IVPB Q12 [facility]; Protocol Stop: 07/19/18 22:01 Last Admin: 07/13/18 09:36 Dose: 200 mls/hr NOREPINEPHRINE BIT/0.9 % NACL (Levophed 4 Mg/ 250 Ml Ns Premixed) 4 mg in 250 mls @ 15 mls/hr IV .[id number] PRN; Protocol PRN Reason: TITRATE PER MD ORDER Last Titration: 07/12/18 07:00 Dose: 0 mcg/min, 0 mls/hr Insulin Human Lispro (Humalog Low) 0 units SC ACHS [facility]; Protocol Last Admin: 07/13/18 08:57 Dose: Not Given Levothyroxine Sodium (Synthroid) 25 mcg PO DAILY [facility] Last Admin: 07/13/18 09:35 Dose: 25 mcg Midodrine (Proamatine) 10 mg PO TID [facility] Last Admin: 07/13/18 09:35 Dose: 10 mg Ondansetron HCl (Zofran Inj) 4 mg IVP Q6H PRN PRN Reason: Nausea/Vomiting Last Admin: 07/13/18 09:32 Dose: 4 mg Pantoprazole Sodium (Protonix Ec Tab) 40 mg PO DAILY [facility] Last Admin: 07/13/18 09:34 Dose: 40 mg Silver Sulfadiazine (Silvadene 1%) 0 ea TOP Q12H [facility] Last Admin: 07/13/18 05:44 Dose: Not Given Vitamin B Complex/Vit C/Folic Acid (Nephro-Miguelito) 1 tab PO 0800 [facility] Last Admin: 07/13/18 08:58 Dose: 1 tab Warfarin Sodium (Coumadin) 3 mg PO 1800 [facility]; Protocol Last Admin: 07/12/18 17:28 Dose: 3 mg - Labs Labs: 07/13/18 07:15 07/13/18 07:15 PT 17.7 SECONDS (9.4-12.5) H 07/12/18 07:00 INR 1.53 07/12/18 07:00 - Constitutional Appears: Chronically Ill - Head Exam Head Exam: NORMAL INSPECTION - Respiratory Exam Respiratory Exam: Decreased Breath Sounds - Cardiovascular Exam Cardiovascular Exam: +S1, +S2 - GI/Abdominal Exam GI & Abdominal Exam: Soft. absent: Tenderness Assessment and Plan - Assessment and Plan (Free Text) Plan: Assessment consider sepsis due to bilateral lower lobe HCAP history of Pseudomonas bilateral infected wound on lower extremities, S/P treat ment with 16 days of antibiotics history of right thigh wound infection with ESBL-producing E. coli history of urinary tract infection COPD CHF morbid obesity with BMI 70 history of right leg surgery and breast surgery chronic ulcers on the lower extremities Plan continue Zyvox, Merrem and Doxycyline day 4 to complete 4-7 days of therapy overall prognosis is poor
[2018-07-14] MEDS: Albuterol-Ipratrop 3 mg / 0.5 (3 ml) UD IH SCH ×4 (02:57→19:45)
[2018-07-14 05:59] LABS: ALB/GLOB RATIO 0.8 (1.1-1.8); ALBUMIN 2.4 g/dL (3.0-4.8); CALCIUM 7.8 mg/dL (8.4-10.5)
[2018-07-14 06:22] LABS: HEMOGLOBIN 8.2 g/dL (12.0-16.0); MEAN CELL VOLUME 82.2 fl (80.0-105.0); MEAN CORPUSCULAR HEMOGLOBIN 25.6 pg (25.0-35.0); MEAN CORPUSCULAR HGB CONC 31.2 g/dl (31.0-37.0); RBC 3.2 10^6/uL (3.5-6.1); RED CELL DISTRIBUTION WIDTH 17.1 % (11.5-14.5); WHITE BLOOD COUNT 17.1 10^3/uL (4.5-11.0)
[2018-07-14 06:23] LABS: MEAN PLATELET VOLUME 9.8 fl (7.0-11.0)
--- NOTE | 2018-07-14 07:22 | PN ---
DATE: 07/14/2018 SUBJECTIVE: The patient is in bed, in no acute distress, nontoxic and uncomfortable. Patient's is at the bedside. OBJECTIVE: VITAL SIGNS: Temperature is 98, blood pressure is /49, respiratory rate of 18, heart rate of 69. HEENT: Unremarkable. NECK: Supple. LUNGS: Have decreased breath sounds. HEART: Normal S1, S2. ABDOMEN: Soft, nontender. LABORATORY EXAMINATION: Reveals a white count of 17,000, hemoglobin of 8, platelets of 478. BUN of 36, creatinine of 2.1. Urinalysis is noted. Serology is negative. Microbiology reveals the blood cultures are no growth. Nares is negative. There is a gram-negative gopal in the urine and the review of orders reveals the patient to be on doxycycline, meropenem, Solu-Cortef and Zyvox. ASSESSMENT AND PLAN A 73-year-old female with a history of super morbid obesity, admitted with sepsis due to bilateral lower lobe healthcare-associated pneumonia and a gram-negative gopal in the urine with super morbid obesity with body mass index of over 70 with a history of urinary tract infection, bilateral thigh infections and extended-spectrum beta-lactamase producing Escherichia coli, chronic obstructive lung disease, congestive heart failure, breast surgery, right leg surgery and currently on day #5 of Zyvox, meropenem and doxy, would complete 4-7 days. We will check on the identification sensitivity of the urine, gram-negative gopal, although urinalysis is not incidentally significant and admitted with severe sepsis with healthcare-associated pneumonia and chronic kidney injury. The patient with procalcitonin 0.37. We will complete a short course of antibiotics. Santy Fernandez MD
[2018-07-14] MEDS: Insulin Lispro (humaLOG) LOW Coverage SC SCH ×3 (10:45→18:44)
[2018-07-14] MEDS: Multivitamin Vitamin B Complex (Nephro-Vite) Tab PO SCH (10:57)
[2018-07-14] MEDS: Pantoprazole 40 mg EC Tab PO SCH (10:57)
[2018-07-14] MEDS: Levothyroxine 25 MCG TAB PO SCH (10:57)
[2018-07-14] MEDS: MEROPENEM 500 MG in NS 500 MG/50 ML BAG IVPB SCH ×2 (10:58→21:24)
[2018-07-14] MEDS: Linezolid 600 mg in D5W 300 ml 600 MG/300 ML BAG IVPB SCH ×2 (10:58→21:24)
[2018-07-14] MEDS: Fluticasone Nasal 50 mcg/Spray NAS SCH (10:58)
[2018-07-14] MEDS: Prostat 15 g packet GT SCH ×2 (11:26→18:46)
--- NOTE | 2018-07-14 14:07 | PN ---
DATE: 07/14/2018 SUBJECTIVE: I saw her in the intensive care unit. She is alert, she so she is more alert. She is wearing her wig. Also, she is eating a little bit. She was not doing that. She had a little bit of breakfast and had a little bit of lunch. She is on Cardizem, Coumadin, digoxin, doxycycline, Drisdol, DuoNebs, Fergon, Flonase, insulin, Lasix, Levophed, Merrem, Nephro-Miguelito, ProAmatine, Pro-Stat, Protonix, Silvadene, Solu-Cortef, Synthroid, Zofran, and Zyvox. PHYSICAL EXAMINATION VITAL SIGNS: She has 98.1 temperature, 71 pulse, 94/51 blood pressure, 13 respiratory rate, 100% O2 sat on 2 liters. HEENT: Head is atraumatic, normocephalic. HEART: Regular rate. LUNGS: Decreased breath sounds, but clear. ABDOMEN: Soft, nontender. She has got positive bowel sounds, but decreased. Morbidly obese. EXTREMITIES: +4/4 pitting edema. NEUROLOGIC: She is more alert and talking, more attentive. LABORATORY DATA: She has 17.1 white count, the reason is steroids, but it is coming up; 8.2 hemoglobin, 26.3 hematocrit with 478 platelets. INR is 1.53, recheck that tomorrow. Sodium 134, potassium 3.7, BUN 36, creatinine 2.1, GFR 28, sugar is 185. Calcium is 7.8. Total bili is 0.4, AST is 29, ALT is 22, alkaline phosphatase 149, total protein is 5.5. Also, she has an elevated CA19-9 of 83.6 with normal goes to 37. There is a consult for Dr. Mae, the paper machine backtender/oncologist. She has been seen by Infectious Disease, Renal, alarm installer, Cardiology. She sepsis, healthcare-acquired pneumonia, chronic kidney injury. Continue as per Infectious Disease with antibiotics and try to keep her blood pressure up. She is very sick. Alan Mann DO MTDD
[2018-07-14] MEDS: Digoxin 125 mcg (0.125 mg) Tab PO SCH (15:09)
--- NOTE | 2018-07-14 15:38 | CP.PCM.PN ---
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 morbid obesity left kidney cyst Plan No acute need for renal replacement therapy at this time. Maintain hemodynamics stable. Avoid hypotension. Patient not on ACEI/ARB due to recent CRIS and low BP. but on a fib rate control meds. Monitor Input/Output, daily weights and renal function with basic metabolic panel will d/c IVF started iron 324 mg TID and MVI daily and weekly Vit D Dose meds/antibiotics for reduced GFR. Avoid fleets enema/magnesium based laxatives. Avoid nephrotoxins/NSAIDs/ iodinated contrast (unless needed emergently) Glycemic control Further work up/management as per primary team Thanks for allowing me to participate in care of your patient. Will follow patient with you. Please call if any Qs. had d/w team. 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 seen for CRIS with cr 0.6 at baseline and 1.3 at d/c. pt came with chest pain and SOB. Denies OTC/herbal meds or NSAIDs No recent iodinated contrast exposure. Noted obvious episodes of low sBP (80- 90s). reports chronic legs swelling. not aware about kidney disease in past. ROS: Cardiovascular: No chest pain. Pulmonary: improved chronic shortness of breath Gastrointestinal: denies abdominal pain No nausea. No vomiting. Genitourinary: No pain while urinating. Denies blood in urine. All other negative except as mentioned in HPI. has chronic legs swelling Physical Examination: General Appearance: Comfortable, in no acute respiratory distress, co-operative. morbidly obese ++ Vitals reviewed and noted as below Head; Atraumatic, normocephalic ENT: no ulcers no thrush. Tongue is midline. Oropharynx: no rash or ulcers. EYES: Pupils are equal, round and reactive to light accommodation. Eye muscles and extraocular movement intact. Sclera is anicteric. Neck; supple no lymphadenopathy, no thyromegaly or bruit Lungs: Increased respiratory rate/effort. Breath sounds bilateral equal and clear Heart: Normal rate. s1s2 normal. No rub or gallop. Extremities: 2-3+ edema. No varicose veins Neurological: Patient is alert, awake and oriented to person, place and time. No focal deficit. Strength bilateral appropriate and equal Skin: Warm and dry. Normal turgor. No rash. Palpitation: Normal elasticity for age Abdomen: Abdomen is soft. Bowel sounds +. There is no abdominal tenderness, no guarding/rigidity no organomegaly Psych: normal insight and normal affect/mood MSK: no joint tenderness or swelling. Digits and nails normal, no deformity : kidney or bladder not palpable Labs/imaging reviewed. Past medical history, past surgical history, family history, social history, allergy reviewed and noted as below Family hx: no hx of CKD. Rest non-contributory Echo; normal lvef, severe MR/TR/RI renal imaging: left kidney cyst TSAT/Ferritin 12/356, SPEP/DILSHAD neg and normal FLC assay Vit D <12.8 PTH 286 urine alb/cr 126 mg/g Objective - Vital Signs/Intake and Output Vital Signs (last 24 hours): Temp Pulse Resp BP Pulse Ox 98.1 F 71 13 99/48 L 100 07/14/18 06:00 07/14/18 06:00 07/14/18 06:00 07/14/18 11:00 07/14/18 06:00 Intake and Output: 07/14/18 07/14/18 06:59 18:59 Intake Total 2500 Output Total 200 Balance 2300 - Medications Medications: Current Medications Albuterol/Ipratropium (Duoneb 3 Mg/0.5 Mg (3 Ml) Ud) 3 ml IH [id number] [facility] Last Admin: 07/14/18 14:03 Dose: Not Given Amino Acid Protein (Prostat 15 G Packet) 15 gm GT BID [facility] Last Admin: 07/14/18 11:26 Dose: Not Given Digoxin (Digoxin) 0.125 mg PO 1400 [facility] Last Admin: 07/14/18 15:09 Dose: 0.125 mg Diltiazem HCl (Cardizem) 60 mg PO TID [facility] Last Admin: 07/11/18 18:06 Dose: 60 mg Ergocalciferol (Drisdol 50,000 Intl Units Cap) 1 cap PO Q7D [facility] Last Admin: 07/11/18 13:15 Dose: 1 cap Ferrous Gluconate (Fergon) 324 mg PO TID [facility] Last Admin: 07/14/18 15:09 Dose: 324 mg Fluticasone Propionate (Flonase) 1 actuation MARIAM DAILY [facility] Last Admin: 07/14/18 10:58 Dose: 2 spr Furosemide (Lasix) 40 mg IVP DAILY [facility] Last Admin: 07/14/18 11:00 Dose: Not Given Hydrocortisone Sodium Succinate (Solu-Cortef) 50 mg IVP Q8 [facility] Last Admin: 07/14/18 15:10 Dose: 50 mg Doxycycline Hyclate 100 mg/ (Sodium Chloride) 100 mls @ 100 mls/hr IVPB Q12 [facility]; Protocol Last Admin: 07/14/18 10:58 Dose: 100 mls/hr Meropenem/Sodium Chloride (Merrem Iv 500 Mg/Ns 50 Ml) 500 mg in 50 mls @ 100 mls/hr IVPB Q12 [facility]; Protocol Stop: 07/19/18 22:01 Last Admin: 07/14/18 10:58 Dose: 100 mls/hr Linezolid (Zyvox 600mg/300ml D5w) 600 mg in 300 mls @ 200 mls/hr IVPB Q12 [facility]; Protocol Stop: 07/19/18 22:01 Last Admin: 07/14/18 10:58 Dose: 200 mls/hr NOREPINEPHRINE BIT/0.9 % NACL (Levophed 4 Mg/ 250 Ml Ns Premixed) 4 mg in 250 mls @ 15 mls/hr IV .[id number] PRN; Protocol PRN Reason: TITRATE PER MD ORDER Last Titration: 07/12/18 07:00 Dose: 0 mcg/min, 0 mls/hr Insulin Human Lispro (Humalog Low) 0 units SC ACHS [facility]; Protocol Last Admin: 07/14/18 11:25 Dose: Not Given Levothyroxine Sodium (Synthroid) 25 mcg PO DAILY [facility] Last Admin: 07/14/18 10:57 Dose: 25 mcg Midodrine (Proamatine) 10 mg PO TID [facility] Last Admin: 07/14/18 15:10 Dose: 10 mg Ondansetron HCl (Zofran Inj) 4 mg IVP Q6H PRN PRN Reason: Nausea/Vomiting Last Admin: 07/13/18 09:32 Dose: 4 mg Pantoprazole Sodium (Protonix Ec Tab) 40 mg PO DAILY [facility] Last Admin: 07/14/18 10:57 Dose: 40 mg Silver Sulfadiazine (Silvadene 1%) 0 ea TOP Q12H [facility] Last Admin: 07/13/18 13:03 Dose: 1 applic Vitamin B Complex/Vit C/Folic Acid (Nephro-Miguelito) 1 tab PO 0800 [facility] Last Admin: 07/14/18 10:57 Dose: 1 tab Warfarin Sodium (Coumadin) 3 mg PO 1800 [facility]; Protocol Last Admin: 07/13/18 18:46 Dose: 3 mg - Labs Labs: 07/14/18 05:00 07/14/18 05:00 PT 17.7 SECONDS (9.4-12.5) H 07/12/18 07:00 INR 1.53 07/12/18 07:00
[2018-07-14] MEDS: Silver Sulfadiazine 1% Cream (400 gm) TOP SCH (18:45)
[2018-07-15] MEDS: Albuterol-Ipratrop 3 mg / 0.5 (3 ml) UD IH SCH ×4 (01:19→19:47)
[2018-07-15 05:42] LABS: ARTERIAL BLOOD GAS HCO3 21.2 mmol/L (21-28); ARTERIAL BLOOD GAS HEMOGLOBIN 8.4 g/dL (11.7-17.4); ARTERIAL BLOOD GAS O2 CAPACITY 11.9 mL/dl (16-24); ARTERIAL BLOOD GAS O2 CONTENT 11.9 ML/dl (15-23); ARTERIAL BLOOD GAS O2 SAT 99.6 % (95-98); ARTERIAL BLOOD GAS PCO2 32 mm/Hg (35-45); ARTERIAL BLOOD GAS PH 7.43 (7.35-7.45); ARTERIAL BLOOD GAS TCO2 22.2 mmol.L (22-28)
[2018-07-15 05:50] LABS: INR 1.4; MEAN CELL VOLUME 81.2 fl (80.0-105.0); MEAN CORPUSCULAR HEMOGLOBIN 25.3 pg (25.0-35.0); MEAN CORPUSCULAR HGB CONC 31.1 g/dl (31.0-37.0); MEAN PLATELET VOLUME 9.1 fl (7.0-11.0); PROTHROMBIN TIME 16.2 SECONDS (9.4-12.5); RBC 3.56 10^6/uL (3.5-6.1); RED CELL DISTRIBUTION WIDTH 16.5 % (11.5-14.5); WHITE BLOOD COUNT 16.2 10^3/uL (4.5-11.0)
[2018-07-15 05:59] LABS: ALB/GLOB RATIO 0.8 (1.1-1.8); ALBUMIN 2.6 g/dL (3.0-4.8); CALCIUM 8.5 mg/dL (8.4-10.5)
[2018-07-15] MEDS: Silver Sulfadiazine 1% Cream (400 gm) TOP SCH ×2 (06:09→13:23)
[2018-07-15] MEDS: Insulin Lispro (humaLOG) LOW Coverage SC SCH ×5 (06:10→21:07)
--- NOTE | 2018-07-15 09:45 | CP.PCM.PN ---
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 morbid obesity left kidney cyst Plan No acute need for renal replacement therapy at this time. Maintain hemodynamics stable. Avoid hypotension. Patient not on ACEI/ARB due to recent CRIS and low BP. but on a fib rate control meds. Monitor Input/Output, daily weights and renal function with basic metabolic panel started iron 324 mg TID and MVI daily and weekly Vit D Dose meds/antibiotics for reduced GFR. Avoid fleets enema/magnesium based laxatives. Avoid nephrotoxins/NSAIDs/ iodinated contrast (unless needed emergently) Glycemic control Further work up/management as per primary team Thanks for allowing me to participate in care of your patient. Will follow patient with you. Please call if any Qs. had d/w team. 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 seen for CRIS with cr 0.6 at baseline and 1.3 at d/c. pt came with chest pain and SOB. Denies OTC/herbal meds or NSAIDs No recent iodinated contrast exposure. Noted obvious episodes of low sBP (80- 90s). reports chronic legs swelling. not aware about kidney disease in past. ROS: Cardiovascular: No chest pain. Pulmonary: improved chronic shortness of breath Gastrointestinal: denies abdominal pain No nausea. No vomiting. Genitourinary: No pain while urinating. Denies blood in urine. All other negative except as mentioned in HPI. has chronic legs swelling Physical Examination: General Appearance: Comfortable, in no acute respiratory distress, co-operative. morbidly obese ++ Vitals reviewed and noted as below Head; Atraumatic, normocephalic ENT: no ulcers no thrush. Tongue is midline. Oropharynx: no rash or ulcers. EYES: Pupils are equal, round and reactive to light accommodation. Eye muscles and extraocular movement intact. Sclera is anicteric. Neck; supple no lymphadenopathy, no thyromegaly or bruit Lungs: Increased respiratory rate/effort. Breath sounds bilateral equal and clear Heart: Normal rate. s1s2 normal. No rub or gallop. Extremities: 2-3+ edema. No varicose veins Neurological: Patient is alert, awake and oriented to person, place and time. No focal deficit. Strength bilateral appropriate and equal Skin: Warm and dry. Normal turgor. No rash. Palpitation: Normal elasticity for age Abdomen: Abdomen is soft. Bowel sounds +. There is no abdominal tenderness, no guarding/rigidity no organomegaly Psych: normal insight and normal affect/mood MSK: no joint tenderness or swelling. Digits and nails normal, no deformity : kidney or bladder not palpable Labs/imaging reviewed. Past medical history, past surgical history, family history, social history, al lergy reviewed and noted as below Family hx: no hx of CKD. Rest non-contributory Echo; normal lvef, severe MR/TR/MN renal imaging: left kidney cyst TSAT/Ferritin 12/356, SPEP/DILSHAD neg and normal FLC assay Vit D <12.8 PTH 286 urine alb/cr 126 mg/g Objective - Vital Signs/Intake and Output Vital Signs (last 24 hours): Temp Pulse Resp BP Pulse Ox 97.8 F 66 21 95/47 L 100 07/14/18 22:00 07/15/18 06:00 07/14/18 15:45 07/14/18 15:45 07/14/18 15:45 - Medications Medications: Current Medications Albuterol/Ipratropium (Duoneb 3 Mg/0.5 Mg (3 Ml) Ud) 3 ml IH [id number] [facility] Last Admin: 07/15/18 08:14 Dose: Not Given Amino Acid Protein (Prostat 15 G Packet) 15 gm GT BID [facility] Last Admin: 07/14/18 18:46 Dose: 15 gm Digoxin (Digoxin) 0.125 mg PO 1400 [facility] Last Admin: 07/14/18 15:09 Dose: 0.125 mg Diltiazem HCl (Cardizem) 60 mg PO TID [facility] Last Admin: 07/11/18 18:06 Dose: 60 mg Ergocalciferol (Drisdol 50,000 Intl Units Cap) 1 cap PO Q7D [facility] Last Admin: 07/11/18 13:15 Dose: 1 cap Ferrous Gluconate (Fergon) 324 mg PO TID [facility] Last Admin: 07/14/18 18:43 Dose: 324 mg Fluticasone Propionate (Flonase) 1 actuation MARIAM DAILY [facility] Last Admin: 07/14/18 10:58 Dose: 2 spr Furosemide (Lasix) 40 mg IVP DAILY [facility] Last Admin: 07/14/18 11:00 Dose: Not Given Hydrocortisone Sodium Succinate (Solu-Cortef) 50 mg IVP Q8 [facility] Last Admin: 07/15/18 06:06 Dose: 50 mg Doxycycline Hyclate 100 mg/ (Sodium Chloride) 100 mls @ 100 mls/hr IVPB Q12 [facility]; Protocol Last Admin: 07/14/18 21:25 Dose: 100 mls/hr Meropenem/Sodium Chloride (Merrem Iv 500 Mg/Ns 50 Ml) 500 mg in 50 mls @ 100 mls/hr IVPB Q12 [facility]; Protocol Stop: 07/19/18 22:01 Last Admin: 07/14/18 21:24 Dose: 100 mls/hr Linezolid (Zyvox 600mg/300ml D5w) 600 mg in 300 mls @ 200 mls/hr IVPB Q12 [facility]; Protocol Stop: 07/19/18 22:01 Last Admin: 07/14/18 21:24 Dose: 200 mls/hr NOREPINEPHRINE BIT/0.9 % NACL (Levophed 4 Mg/ 250 Ml Ns Premixed) 4 mg in 250 mls @ 15 mls/hr IV .[id number] PRN; Protocol PRN Reason: TITRATE PER MD ORDER Last Titration: 07/12/18 07:00 Dose: 0 mcg/min, 0 mls/hr Insulin Human Lispro (Humalog Low) 0 units SC ACHS [facility]; Protocol Last Admin: 07/15/18 09:12 Dose: 1 unit Levothyroxine Sodium (Synthroid) 25 mcg PO DAILY [facility] Last Admin: 07/14/18 10:57 Dose: 25 mcg Midodrine (Proamatine) 10 mg PO TID [facility] Last Admin: 07/14/18 18:43 Dose: 10 mg Ondansetron HCl (Zofran Inj) 4 mg IVP Q6H PRN PRN Reason: Nausea/Vomiting Last Admin: 07/13/18 09:32 Dose: 4 mg Pantoprazole Sodium (Protonix Ec Tab) 40 mg PO DAILY [facility] Last Admin: 07/14/18 10:57 Dose: 40 mg Silver Sulfadiazine (Silvadene 1%) 0 ea TOP Q12H [facility] Last Admin: 07/15/18 06:09 Dose: 1 applic Vitamin B Complex/Vit C/Folic Acid (Nephro-Miguelito) 1 tab PO 0800 [facility] Last Admin: 07/14/18 10:57 Dose: 1 tab Warfarin Sodium (Coumadin) 3 mg PO 1800 [facility]; Protocol Last Admin: 07/14/18 18:43 Dose: 3 mg - Labs Labs: 07/15/18 05:00 07/15/18 05:00 PT 16.2 SECONDS (9.4-12.5) H 07/15/18 05:00 INR 1.40 07/15/18 05:00
[2018-07-15] MEDS: Levothyroxine 25 MCG TAB PO SCH (11:05)
[2018-07-15] MEDS: Linezolid 600 mg in D5W 300 ml 600 MG/300 ML BAG IVPB SCH ×2 (11:06→21:06)
[2018-07-15] MEDS: Prostat 15 g packet GT SCH ×2 (11:16→17:08)
[2018-07-15] MEDS: MEROPENEM 500 MG in NS 500 MG/50 ML BAG IVPB SCH ×2 (11:17→21:05)
[2018-07-15] MEDS: Multivitamin Vitamin B Complex (Nephro-Vite) Tab PO SCH (11:17)
[2018-07-15] MEDS: Fluticasone Nasal 50 mcg/Spray NAS SCH (11:22)
[2018-07-15] MEDS: Pantoprazole 40 mg EC Tab PO SCH (11:22)
--- NOTE | 2018-07-15 12:45 | PN ---
DATE: 07/15/2018 SUBJECTIVE: I saw her in the Intensive Care Unit, resting in bed. Her caregiver at home is there with her. She has moments where she feels like she could eat a little bit and then moments where she feels terrible. This morning, she has not eaten much at all. No appetite. Still very weak. No pain. Overall just feels lethargic and no energy. PHYSICAL EXAMINATION: VITAL SIGNS: She has a 97.8 temperature, 66 pulse, 101/70 blood pressure. She is constantly losing weight. HEENT: Head is atraumatic, normocephalic. Also, throat is very dry and sore. We are going to get a Magic Mouthwash to help with throat. She is also on Cepacol lozenges. HEART: Regular rate. LUNGS: Decreased breath sounds, but clear. ABDOMEN: Morbidly, morbidly obese, nontender. No palpable pain or guarding. Decreased bowel sounds. EXTREMITIES: Still very lymphedematous with +4/4 pitting edema. MEDICATIONS: She is currently on Cardizem, Coumadin, digoxin, Drisdol, DuoNebs, Fergon, Flonase, insulin, Lasix, Levophed, Merrem IV, Nephro-Miguelito, ProAmatine, Pro-Stat, Protonix, Silvadene cream, Solu-Cortef, Synthroid, Zofran and Zyvox. She is off the doxycycline. LABORATORY DATA: She has a 16.2 white count, still elevated; 9 hemoglobin; 20.9 hematocrit with 446 platelets. INR is 1.4, of course down again. I will increase her Coumadin, she is on 3 mg. That usually keeps her at a good INR level of over 2, we will see how tomorrow's is. Sodium is 136, potassium 4.2, BUN 38, creatinine 2.2, GFR is 22, sugar is 165, calcium is 8.5, total bili is 0.4. AST is 33, ALT is 22, alk phos 169, total protein 6.1. IMPRESSION AND PLAN: She is being seen by Renal, Infectious Disease, Cardiology, compounder helper, GI, and also Dr. Mae, the oncologist, who came and saw her and he ordered some more blood tests and urine tests due to the elevated CA19-9 of 83. My worry is that she has a pancreatic cancer and cannot do a CAT scan or MRI due to her size and under ultrasound just cannot get to that area to give us a good look. We will continue with aggressive treatment and care. Alan Mann DO
[2018-07-15] MEDS: Digoxin 125 mcg (0.125 mg) Tab PO SCH (14:56)
[2018-07-15 16:13] LABS: IMMUNOGLOBULIN A 367.3 mg/dL (70.0-400.0); IMMUNOGLOBULIN G 1016.6 mg/dL (700.0-1600.0)
--- NOTE | 2018-07-15 18:05 | PN ---
DATE: 07/15/2018 SUBJECTIVE: The patient is seen earlier this morning in 128, bed 7. The patient's is asleep in a chair . She has been afebrile. No fevers. No chills. No abdominal pain or diarrhea. OBJECTIVE: VITAL SIGNS: Temperature is 98, blood pressure is 105/60, respiratory rate of 23, and heart rate of 81. HEENT: Unremarkable. NECK: Supple. LUNGS: Have decreased breath sounds. HEART: Normal S1 and S2. ABDOMEN: Soft and nontender. LABORATORY DATA: Reveals a white count of 16,000, hemoglobin of 9, and platelets of 446. Chemistries reveals a BUN of 38 and creatinine is 2.2. Urinalysis is noted and serology is noted. Microbiology is reviewed and the patient has Gram-negative gopal in the urine. The blood cultures of no growth. MRSA is not detected. Review of orders reveals the patient to be on meropenem, which requires renewal and I will renew the meropenem and the patient is also on Zyvox and she will also requires renewal, which I will do so. ASSESSMENT AND PLAN: This is a 73-year-old female with a history of super morbid obesity, admitted with sepsis and bilateral lower lobe healthcare-associated pneumonia with a Gram-negative gopal in the urine in a patient with a super morbid obesity, body mass index of 70, history of urinary tract infections, bilateral thigh infections, extended-spectrum beta-lactamase producing Escherichia coli, chronic obstructive lung disease, congestive heart failure, breast surgery and right leg surgery on day #6 of meropenem and Zyvox and would complete 5-7 days. Overall prognosis quite poor. Santy Fernandez MD
[2018-07-16] MEDS: Albuterol-Ipratrop 3 mg / 0.5 (3 ml) UD IH SCH ×4 (01:48→19:46)
[2018-07-16] MEDS: Insulin Lispro (humaLOG) LOW Coverage SC SCH ×4 (08:05→22:36)
[2018-07-16] MEDS: Multivitamin Vitamin B Complex (Nephro-Vite) Tab PO SCH (08:08)
[2018-07-16 08:16] LABS: HEMOGLOBIN 8.4 g/dL (12.0-16.0); MEAN CORPUSCULAR HEMOGLOBIN 25.5 pg (25.0-35.0); MEAN CORPUSCULAR HGB CONC 31.8 g/dl (31.0-37.0); RBC 3.3 10^6/uL (3.5-6.1); RED CELL DISTRIBUTION WIDTH 16.6 % (11.5-14.5); WHITE BLOOD COUNT 15.3 10^3/uL (4.5-11.0)
[2018-07-16 08:22] LABS: INR 1.37; PROTHROMBIN TIME 15.9 SECONDS (9.4-12.5)
[2018-07-16 08:26] LABS: ALB/GLOB RATIO 0.8 (1.1-1.8); ALBUMIN 2.4 g/dL (3.0-4.8); CALCIUM 8.2 mg/dL (8.4-10.5)
[2018-07-16] MEDS ORDERED: Aluminum Hydroxide/Magnesium 30 ML, DiphenhydrAMINE 75 MG, Lidocaine 2% Viscous 30 ML PO PRN ×2 (08:38→08:41)
--- NOTE | 2018-07-16 09:53 | CP.PCM.PN ---
<Darryl Topete - Last Filed: 07/16/18 09:49> Subjective - Date & Time of Evaluation Date of Evaluation: 07/16/18 Time of Evaluation: 09:49 - Subjective Subjective: PGY6 GI Fellow Progress Note Reconsulted for concern of melena. Patient seen and examined bedside this morning. The patient complains of some intermittent episodes of dysphagia, improved immediately with fluid intake. No nausea, vomiting, abdominal pain. Had dark formed stool and has been on iron supplementation PO TID since 07/11/18. No overt blood loss. 12 system ROS performed and negative except where stated. Objective - Vital Signs/Intake and Output Vital Signs (last 24 hours): Temp Pulse Resp BP Pulse Ox 97.8 F 80 23 105/67 100 07/15/18 22:00 07/15/18 22:00 07/15/18 13:15 07/15/18 12:01 07/15/18 13:00 - Medications Medications: Current Medications Albuterol/Ipratropium (Duoneb 3 Mg/0.5 Mg (3 Ml) Ud) 3 ml IH [id number] [facility] Last Admin: 07/16/18 07:42 Dose: 3 ml Amino Acid Protein (Prostat 15 G Packet) 15 gm GT BID [facility] Last Admin: 07/15/18 17:08 Dose: Not Given Al Hydrox/Mg Hydrox/Simethicone 30 ml/Diphenhydramine HCl 75 mg/Lidocaine 30 ml 0 ml PO Q2H PRN PRN Reason: Mouth/Throat Pain Digoxin (Digoxin) 0.125 mg PO 1400 [facility] Last Admin: 07/15/18 14:56 Dose: 0.125 mg Diltiazem HCl (Cardizem) 60 mg PO TID [facility] Last Admin: 07/11/18 18:06 Dose: 60 mg Ergocalciferol (Drisdol 50,000 Intl Units Cap) 1 cap PO Q7D [facility] Last Admin: 07/11/18 13:15 Dose: 1 cap Ferrous Gluconate (Fergon) 324 mg PO TID [facility] Last Admin: 07/15/18 17:07 Dose: Not Given Fluticasone Propionate (Flonase) 1 actuation MARIAM DAILY [facility] Last Admin: 07/15/18 11:22 Dose: 1 spr Furosemide (Lasix) 40 mg IVP DAILY [facility] Last Admin: 07/15/18 11:18 Dose: 40 mg Hydrocortisone Sodium Succinate (Solu-Cortef) 50 mg IVP Q8 [facility] Last Admin: 07/16/18 08:08 Dose: 50 mg Meropenem/Sodium Chloride (Merrem Iv 500 Mg/Ns 50 Ml) 500 mg in 50 mls @ 100 mls/hr IVPB Q12 [facility]; Protocol Stop: 07/19/18 22:01 Last Admin: 07/15/18 21:05 Dose: 100 mls/hr Linezolid (Zyvox 600mg/300ml D5w) 600 mg in 300 mls @ 200 mls/hr IVPB Q12 [facility]; Protocol Stop: 07/19/18 22:01 Last Admin: 07/15/18 21:06 Dose: 200 mls/hr NOREPINEPHRINE BIT/0.9 % NACL (Levophed 4 Mg/ 250 Ml Ns Premixed) 4 mg in 250 mls @ 15 mls/hr IV .[id number] PRN; Protocol PRN Reason: TITRATE PER MD ORDER Last Titration: 07/12/18 07:00 Dose: 0 mcg/min, 0 mls/hr Insulin Human Lispro (Humalog Low) 0 units SC ACHS [facility]; Protocol Last Admin: 07/16/18 08:05 Dose: Not Given Levothyroxine Sodium (Synthroid) 25 mcg PO DAILY [facility] Last Admin: 07/15/18 11:05 Dose: 25 mcg Midodrine (Proamatine) 10 mg PO TID [facility] Last Admin: 07/15/18 19:42 Dose: 10 mg Ondansetron HCl (Zofran Inj) 4 mg IVP Q6H PRN PRN Reason: Nausea/Vomiting Last Admin: 07/13/18 09:32 Dose: 4 mg Pantoprazole Sodium (Protonix Ec Tab) 40 mg PO DAILY [facility] Last Admin: 07/15/18 11:22 Dose: 40 mg Silver Sulfadiazine (Silvadene 1%) 0 ea TOP Q12H [facility] Last Admin: 07/15/18 13:23 Dose: 1 applic Vitamin B Complex/Vit C/Folic Acid (Nephro-Miguelito) 1 tab PO 0800 [facility] Last Admin: 07/16/18 08:08 Dose: 1 tab Warfarin Sodium (Coumadin) 4 mg PO 1800 [facility]; Protocol - Labs Labs: 07/16/18 08:00 07/16/18 08:00 PT 15.9 SECONDS (9.4-12.5) H 07/16/18 08:00 INR 1.37 07/16/18 08:00 - Constitutional Appears: No Acute Distress, Chronically Ill, Other (morbidly obese) - Eye Exam Eye Exam: EOMI, PERRL - ENT Exam ENT Exam: Mucous Membranes Moist - Respiratory Exam Respiratory Exam: Rales. absent: Clear to Ausculation Bilateral, Rhonchi, Wheezes - Cardiovascular Exam Cardiovascular Exam: RRR, +S1, +S2 - GI/Abdominal Exam GI & Abdominal Exam: Soft, Hernia (umbilical), Normal Bowel Sounds. absent: Distended, Firm, Guarding, Rigid, Tenderness, Organomegaly - Extremities Exam Additional comments: B/L LE edema - Neurological Exam Neurological Exam: Alert, Awake, Oriented x3 - Psychiatric Exam Psychiatric exam: Normal Affect, Normal Mood - Skin Skin Exam: Dry, Warm Assessment and Plan - Assessment and Plan (Free Text) Assessment: Patient is a 73yo female with PMHx significant for morbid obesity, atrial fibrillation on Coumadin, severe pulmonary HTN, COPD, PVD and chronic lymphedema who presented with shortness of breath and chest pain, found to have HCAP and LE cellulitis. -Dark stool as a result of iron supplementation -Morbid obesity -HCAP -LE cellulitis Plan: -The patient has had episodes of formed, dark stool likely a result of TID oral iron supplementation -No change in baseline hemoglobin -No overt bleeding -Recommend ongoing treatment for medical conditions -Patient would have significant risk undergoing endoscopic evaluation given her morbid obesity, current compromised respiratory status -Monitor HGB and maintain anticoagulation if necessary per medical/ICU team -Diet as tolerated -No further recommendations at this time <Medardo Steele - Last Filed: 07/16/18 10:37> Objective - Vital Signs/Intake and Output Vital Signs (last 24 hours): Temp Pulse Resp BP Pulse Ox 97.8 F 80 23 105/67 100 07/15/18 22:00 07/15/18 22:00 07/15/18 13:15 07/15/18 12:01 07/15/18 13:00 - Medications Medications: Current Medications Albuterol/Ipratropium (Duoneb 3 Mg/0.5 Mg (3 Ml) Ud) 3 ml IH [id number] [facility] Last Admin: 12/03/18 07:42 Dose: 3 ml Amino Acid Protein (Prostat 15 G Packet) 15 gm GT BID [facility] Last Admin: 07/15/18 17:08 Dose: Not Given Al Hydrox/Mg Hydrox/Simethicone 30 ml/Diphenhydramine HCl 75 mg/Lidocaine 30 ml 0 ml PO Q2H PRN PRN Reason: Mouth/Throat Pain Digoxin (Digoxin) 0.125 mg PO 1400 [facility] Last Admin: 07/15/18 14:56 Dose: 0.125 mg Diltiazem HCl (Cardizem) 60 mg PO TID [facility] Last Admin: 07/11/18 18:06 Dose: 60 mg Ergocalciferol (Drisdol 50,000 Intl Units Cap) 1 cap PO Q7D [facility] Last Admin: 07/11/18 13:15 Dose: 1 cap Ferrous Gluconate (Fergon) 324 mg PO TID [facility] Last Admin: 07/15/18 17:07 Dose: Not Given Fluticasone Propionate (Flonase) 1 actuation MARIAM DAILY [facility] Last Admin: 07/15/18 11:22 Dose: 1 spr Furosemide (Lasix) 40 mg IVP DAILY [facility] Last Admin: 07/15/18 11:18 Dose: 40 mg Hydrocortisone Sodium Succinate (Solu-Cortef) 50 mg IVP Q8 [facility] Last Admin: 07/16/18 08:08 Dose: 50 mg Meropenem/Sodium Chloride (Merrem Iv 500 Mg/Ns 50 Ml) 500 mg in 50 mls @ 100 mls/hr IVPB Q12 [facility]; Protocol Stop: 07/19/18 22:01 Last Admin: 07/15/18 21:05 Dose: 100 mls/hr Linezolid (Zyvox 600mg/300ml D5w) 600 mg in 300 mls @ 200 mls/hr IVPB Q12 [facility]; Protocol Stop: 07/19/18 22:01 Last Admin: 07/15/18 21:06 Dose: 200 mls/hr NOREPINEPHRINE BIT/0.9 % NACL (Levophed 4 Mg/ 250 Ml Ns Premixed) 4 mg in 250 mls @ 15 mls/hr IV .[id number] PRN; Protocol PRN Reason: TITRATE PER MD ORDER Last Titration: 07/12/18 07:00 Dose: 0 mcg/min, 0 mls/hr Insulin Human Lispro (Humalog Low) 0 units SC ACHS [facility]; Protocol Last Admin: 07/16/18 08:05 Dose: Not Given Levothyroxine Sodium (Synthroid) 25 mcg PO DAILY [facility] Last Admin: 07/15/18 11:05 Dose: 25 mcg Midodrine (Proamatine) 10 mg PO TID [facility] Last Admin: 07/15/18 19:42 Dose: 10 mg Ondansetron HCl (Zofran Inj) 4 mg IVP Q6H PRN PRN Reason: Nausea/Vomiting Last Admin: 07/13/18 09:32 Dose: 4 mg Pantoprazole Sodium (Protonix Ec Tab) 40 mg PO DAILY [facility] Last Admin: 07/15/18 11:22 Dose: 40 mg Silver Sulfadiazine (Silvadene 1%) 0 ea TOP Q12H [facility] Last Admin: 07/15/18 13:23 Dose: 1 applic Vitamin B Complex/Vit C/Folic Acid (Nephro-Miguelito) 1 tab PO 0800 [facility] Last Admin: 07/16/18 08:08 Dose: 1 tab Warfarin Sodium (Coumadin) 4 mg PO 1800 [facility]; Protocol - Labs Labs: 07/16/18 08:00 07/16/18 08:00 PT 15.9 SECONDS (9.4-12.5) H 07/16/18 08:00 INR 1.37 07/16/18 08:00 Attending/Attestation - Attestation I have fully participated in the care of the patient.: Yes I have reviewed all pertinent clinical information, including history, physical exam and plan: Yes Notes (Text): 07/16/18 10:35 Morbid obesity Iron deficiency anemia Atrial fibrillation on coumadin COPD Pulmonary HTN Pneumonia - Diet as tolerated - H/H stable without presence of overt bleeding noted. Dark stools in setting of ongoing PO iron supplementation. - Further management as per medical team - Patient would benefit from elective outpatient endoscopic evaluation (though high risk) following resolution of acute medical issues. No further GI intervention planned, will sign off case. Please reconsult as necessary, thank you.
--- NOTE | 2018-07-16 10:24 | CP.PCM.PN ---
<Marcio Moon - Last Filed: 07/16/18 13:36> Subjective - Date & Time of Evaluation Date of Evaluation: 07/16/18 Time of Evaluation: 10:22 - Subjective Subjective: Infectious disease progress note for Dr. Trujillo/Dr. Fernandez service - Gay Moon PGY3 Patient seen and examined at bedside this morning. No acute overnight events or new complaints reported. On day 7 of meropenem/zyvox for bilateral lower lobe HCAP. Denies cp, palpitations, SOB. Objective - Vital Signs/Intake and Output Vital Signs (last 24 hours): Temp Pulse Resp BP Pulse Ox 97.8 F 80 23 105/67 100 07/15/18 22:00 07/15/18 22:00 07/15/18 13:15 07/15/18 12:01 07/15/18 13:00 - Medications Medications: Current Medications Albuterol/Ipratropium (Duoneb 3 Mg/0.5 Mg (3 Ml) Ud) 3 ml IH [id number] [facility] Last Admin: 07/16/18 07:42 Dose: 3 ml Amino Acid Protein (Prostat 15 G Packet) 15 gm GT BID [facility] Last Admin: 07/15/18 17:08 Dose: Not Given Al Hydrox/Mg Hydrox/Simethicone 30 ml/Diphenhydramine HCl 75 mg/Lidocaine 30 ml 0 ml PO Q2H PRN PRN Reason: Mouth/Throat Pain Digoxin (Digoxin) 0.125 mg PO 1400 [facility] Last Admin: 07/15/18 14:56 Dose: 0.125 mg Diltiazem HCl (Cardizem) 60 mg PO TID [facility] Last Admin: 07/11/18 18:06 Dose: 60 mg Ergocalciferol (Drisdol 50,000 Intl Units Cap) 1 cap PO Q7D [facility] Last Admin: 07/11/18 13:15 Dose: 1 cap Ferrous Gluconate (Fergon) 324 mg PO TID [facility] Last Admin: 07/15/18 17:07 Dose: Not Given Fluticasone Propionate (Flonase) 1 actuation MARIAM DAILY [facility] Last Admin: 07/15/18 11:22 Dose: 1 spr Furosemide (Lasix) 40 mg IVP DAILY [facility] Last Admin: 07/15/18 11:18 Dose: 40 mg Hydrocortisone Sodium Succinate (Solu-Cortef) 50 mg IVP Q8 [facility] Last Admin: 07/16/18 08:08 Dose: 50 mg Meropenem/Sodium Chloride (Merrem Iv 500 Mg/Ns 50 Ml) 500 mg in 50 mls @ 100 mls/hr IVPB Q12 [facility]; Protocol Stop: 07/19/18 22:01 Last Admin: 07/15/18 21:05 Dose: 100 mls/hr Linezolid (Zyvox 600mg/300ml D5w) 600 mg in 300 mls @ 200 mls/hr IVPB Q12 [facility]; Protocol Stop: 07/19/18 22:01 Last Admin: 07/15/18 21:06 Dose: 200 mls/hr NOREPINEPHRINE BIT/0.9 % NACL (Levophed 4 Mg/ 250 Ml Ns Premixed) 4 mg in 250 mls @ 15 mls/hr IV .[id number] PRN; Protocol PRN Reason: TITRATE PER MD ORDER Last Titration: 07/12/18 07:00 Dose: 0 mcg/min, 0 mls/hr Insulin Human Lispro (Humalog Low) 0 units SC ACHS [facility]; Protocol Last Admin: 07/16/18 08:05 Dose: Not Given Levothyroxine Sodium (Synthroid) 25 mcg PO DAILY [facility] Last Admin: 07/15/18 11:05 Dose: 25 mcg Midodrine (Proamatine) 10 mg PO TID [facility] Last Admin: 07/15/18 19:42 Dose: 10 mg Ondansetron HCl (Zofran Inj) 4 mg IVP Q6H PRN PRN Reason: Nausea/Vomiting Last Admin: 07/13/18 09:32 Dose: 4 mg Pantoprazole Sodium (Protonix Ec Tab) 40 mg PO DAILY [facility] Last Admin: 07/15/18 11:22 Dose: 40 mg Silver Sulfadiazine (Silvadene 1%) 0 ea TOP Q12H [facility] Last Admin: 07/15/18 13:23 Dose: 1 applic Vitamin B Complex/Vit C/Folic Acid (Nephro-Miguelito) 1 tab PO 0800 [facility] Last Admin: 07/16/18 08:08 Dose: 1 tab Warfarin Sodium (Coumadin) 4 mg PO 1800 [facility]; Protocol - Labs Labs: 07/16/18 08:00 07/16/18 08:00 PT 15.9 SECONDS (9.4-12.5) H 07/16/18 08:00 INR 1.37 07/16/18 08:00 - Constitutional Appears: Chronically Ill - Head Exam Head Exam: ATRAUMATIC, NORMOCEPHALIC - Eye Exam Eye Exam: EOMI, PERRL - ENT Exam ENT Exam: Mucous Membranes Moist - Respiratory Exam Respiratory Exam: Decreased Breath Sounds. absent: Rales, Rhonchi, Wheezes - Cardiovascular Exam Cardiovascular Exam: +S1, +S2. absent: Clicks, JVD, Rubs - GI/Abdominal Exam GI & Abdominal Exam: Soft. absent: Distended, Firm, Guarding, Rigid, Tenderness, Rebound - Neurological Exam Neurological Exam: Alert, Awake, Oriented x3 - Psychiatric Exam Psychiatric exam: Normal Affect, Normal Mood - Skin Skin Exam: Dry, Intact, Normal Color, Warm Assessment and Plan - Assessment and Plan (Free Text) Plan: 73yo female with history of morbid obesity, CHF, COPD, DM, afib on anticoagulation, PVD, lymphedema presents with severe sepsis secondary to healthcare-associated pneumonia in the setting of acute kidney injury 1. Severe sepsis secondary to bilateral lower lobe HCAP 2. Hx of ESBL ecoli and pseudomonas of the lower extremities 3. Acute on chronic kidney injury 4. CHF, chronic 5. COPD, chronic 6. DM type 2 7. morbid obesity -Treated with meropenem (day 7) and zyvox (day 7) to complete 5-7 day course; abx may be discontinued after today and pt will be monitored clinically -At risk of developing nosocomial infections -MRSA screen negative -blood cultures negative; gram - gopal in the urine however only 10k CFU -Procalcitonin negative -CXR revealed borderline infiltrate in right suprahilar space -EKG reviewed Patient seen and case discussed/reviewed with attending, Dr. Trujillo <Brandan Trujillo - Last Filed: 07/16/18 22:04> Objective - Vital Signs/Intake and Output Vital Signs (last 24 hours): Temp Pulse Resp BP Pulse Ox 97.1 F L 99 H 22 95/43 L 100 07/16/18 12:00 07/16/18 15:39 07/16/18 12:00 07/16/18 12:00 07/16/18 12:00 Intake and Output: 07/16/18 07/17/18 18:59 06:59 Intake Total 1150 Output Total 400 Balance 750 - Medications Medications: Current Medications Albuterol/Ipratropium (Duoneb 3 Mg/0.5 Mg (3 Ml) Ud) 3 ml IH [id number] [facility] Last Admin: 07/16/18 19:46 Dose: 3 ml Amino Acid Protein (Prostat 15 G Packet) 15 gm GT BID [facility] Last Admin: 07/16/18 17:23 Dose: 15 gm Al Hydrox/Mg Hydrox/Simethicone 30 ml/Diphenhydramine HCl 75 mg/Lidocaine 30 ml 0 ml PO Q2H PRN PRN Reason: Mouth/Throat Pain Digoxin (Digoxin) 0.125 mg PO 1400 [facility] Last Admin: 07/16/18 13:12 Dose: 0.125 mg Diltiazem HCl (Cardizem) 60 mg PO TID [facility] Last Admin: 07/11/18 18:06 Dose: 60 mg Ergocalciferol (Drisdol 50,000 Intl Units Cap) 1 cap PO Q7D [facility] Last Admin: 07/11/18 13:15 Dose: 1 cap Ferrous Gluconate (Fergon) 324 mg PO TID [facility] Last Admin: 07/16/18 17:14 Dose: Not Given Fluticasone Propionate (Flonase) 1 actuation MARIAM DAILY [facility] Last Admin: 07/16/18 10:54 Dose: 1 spr Furosemide (Lasix) 40 mg IVP DAILY [facility] Last Admin: 07/16/18 10:54 Dose: Not Given Hydrocortisone Sodium Succinate (Solu-Cortef) 50 mg IVP Q8 [facility] Last Admin: 07/16/18 13:12 Dose: 50 mg Meropenem/Sodium Chloride (Merrem Iv 500 Mg/Ns 50 Ml) 500 mg in 50 mls @ 100 mls/hr IVPB Q12 [facility]; Protocol Stop: 07/19/18 22:01 Last Admin: 07/16/18 10:51 Dose: 100 mls/hr Linezolid (Zyvox 600mg/300ml D5w) 600 mg in 300 mls @ 200 mls/hr IVPB Q12 [facility]; Protocol Stop: 07/19/18 22:01 Last Admin: 07/16/18 10:52 Dose: 200 mls/hr NOREPINEPHRINE BIT/0.9 % NACL (Levophed 4 Mg/ 250 Ml Ns Premixed) 4 mg in 250 mls @ 15 mls/hr IV .[id number] PRN; Protocol PRN Reason: TITRATE PER MD ORDER Last Titration: 07/12/18 07:00 Dose: 0 mcg/min, 0 mls/hr Insulin Human Lispro (Humalog Low) 0 units SC ACHS [facility]; Protocol Last Admin: 07/16/18 16:54 Dose: 2 unit Levothyroxine Sodium (Synthroid) 25 mcg PO DAILY [facility] Last Admin: 07/16/18 10:51 Dose: 25 mcg Midodrine (Proamatine) 10 mg PO TID [facility] Last Admin: 07/16/18 17:05 Dose: 10 mg Ondansetron HCl (Zofran Inj) 4 mg IVP Q6H PRN PRN Reason: Nausea/Vomiting Last Admin: 07/13/18 09:32 Dose: 4 mg Pantoprazole Sodium (Protonix Ec Tab) 40 mg PO DAILY [facility] Last Admin: 07/16/18 10:51 Dose: 40 mg Silver Sulfadiazine (Silvadene 1%) 0 ea TOP Q12H [facility] Last Admin: 07/16/18 12:48 Dose: 1 applic Vitamin B Complex/Vit C/Folic Acid (Nephro-Miguelito) 1 tab PO 0800 [facility] Last Admin: 07/16/18 08:08 Dose: 1 tab Warfarin Sodium (Coumadin) 4 mg PO 1800 [facility]; Protocol Last Admin: 07/16/18 17:05 Dose: 4 mg - Labs Labs: 07/16/18 08:00 07/16/18 08:00 PT 15.9 SECONDS (9.4-12.5) H 07/16/18 08:00 INR 1.37 07/16/18 08:00 Assessment and Plan - Assessment and Plan (Free Text) Plan: Infectious diseases Attending Physician Attestation Patient seen and examined, discussed with clinical medical assistant. I have reviewed the patient's history of present illness, past medical, social, personal and family histories, pertinent physical exam findings, course so far in this hospital admission, pertinent laboratory and imaging results. I agree with the above findings, assessment and plan. In addition, will continue Zyvox and Merrem day 7 of 7 for bilateral lower lobe HCAP with sepsis. Will d/c antibiotics after today and will monitor clinically.
[2018-07-16] MEDS ORDERED: Potassium Chloride 20 mEq ER Tab PO ONE (10:26)
[2018-07-16] MEDS ORDERED: Potassium Chloride 40 mEq/30 ml LIQ UD PO ONE (10:40)
[2018-07-16] MEDS ORDERED: Potassium Chloride 20 mEq/15 ml LIQ UD PO STA (10:46)
[2018-07-16] MEDS: Pantoprazole 40 mg EC Tab PO SCH (10:51)
[2018-07-16] MEDS: Levothyroxine 25 MCG TAB PO SCH (10:51)
[2018-07-16] MEDS: MEROPENEM 500 MG in NS 500 MG/50 ML BAG IVPB SCH ×2 (10:51→22:38)
[2018-07-16] MEDS: Linezolid 600 mg in D5W 300 ml 600 MG/300 ML BAG IVPB SCH ×2 (10:52→22:23)
[2018-07-16] MEDS: Fluticasone Nasal 50 mcg/Spray NAS SCH (10:54)
[2018-07-16] MEDS: Prostat 15 g packet GT SCH ×2 (11:04→17:23)
--- NOTE | 2018-07-16 11:18 | PN ---
DATE: 07/16/2018 SUBJECTIVE: The patient is awake, alert, without shortness of breath. PHYSICAL EXAMINATION: VITAL SIGNS: Blood pressure is 85-90 systolic, heart rate is in the 80s. NECK: Negative JVD. LUNGS: Decreased breath sounds. HEART: Reveals S1, S2. EXTREMITIES: Chronic edema. Hemoglobin is 8.4. Chemistries, BUN and creatinine are 39 and 2.2, glucose is 136. INR is 1.37. IMPRESSION: 1. Morbid obesity. 2. Atrial fibrillation. 3. Resolution of her coagulopathy. 4. Coronary artery disease. 5. Pulmonary hypertension. 6. Normal left ventricular function. Given these findings, the patient is currently on inotropes which needs to be tapered off. We will continue to monitor INR given her warfarin. Ryan Turk MD
--- NOTE | 2018-07-16 11:36 | CP.PCM.PN ---
Subjective - Date & Time of Evaluation Date of Evaluation: 07/16/18 Time of Evaluation: 11:36 - Subjective Subjective: Nephrology Consultation Note: Assessment: stable Acute Kidney Injury (N17.9) likely hemodynamic due to hypotension, A fib with RV R supratherapeutic INR Anemia iron def Vit D def with secondary hyperparathyroidism diabetes Mellitus ( years), COPD/emphysema with cor pulmonale with severe pHTN and valvular insufficiency, A fib, PVD, CAD. morbid obesity left kidney cyst Plan No acute need for renal replacement therapy at this time. Maintain hemodynamics stable. Avoid hypotension. Patient not on ACEI/ARB due to recent CRIS and low BP. but on a fib rate control meds. Monitor Input/Output, daily weights and renal function with basic metabolic panel started iron 324 mg TID and MVI daily and weekly Vit D supplement lytes as needed Dose meds/antibiotics for reduced GFR. Avoid fleets enema/magnesium based laxatives. Avoid nephrotoxins/NSAIDs/ iodinated contrast (unless needed emergently) Glycemic control Further work up/management as per primary team Thanks for allowing me to participate in care of your patient. Will follow patient with you. Please call if any Qs. had d/w team. 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 seen for CRIS with cr 0.6 at baseline and 1.3 at d/c. pt came with chest pain and SOB. Denies OTC/herbal meds or NSAIDs No recent iodinated contrast exposure. Noted obvious episodes of low sBP (80- 90s). reports chronic legs swelling. not aware about kidney disease in past. ROS: Cardiovascular: No chest pain. Pulmonary: improved chronic shortness of breath Gastrointestinal: denies abdominal pain No nausea. No vomiting. Genitourinary: No pain while urinating. Denies blood in urine. All other negative except as mentioned in HPI. has chronic legs swelling Physical Examination: General Appearance: Comfortable, in no acute respiratory distress, co-operative. morbidly obese ++ Vitals reviewed and noted as below Head; Atraumatic, normocephalic ENT: no ulcers no thrush. Tongue is midline. Oropharynx: no rash or ulcers. EYES: Pupils are equal, round and reactive to light accommodation. Eye muscles and extraocular movement intact. Sclera is anicteric. Neck; supple no lymphadenopathy, no thyromegaly or bruit Lungs: Increased respiratory rate/effort. Breath sounds bilateral equal and clear Heart: Normal rate. s1s2 normal. No rub or gallop. Extremities: 1-2+ edema. No varicose veins Neurological: Patient is alert, awake and oriented to person, place and time. No focal deficit. Strength bilateral appropriate and equal Skin: Warm and dry. Normal turgor. No rash. Palpitation: Normal elasticity for age Abdomen: Abdomen is soft. Bowel sounds +. There is no abdominal tenderness, no guarding/rigidity no organomegaly Psych: normal insight and normal affect/mood MSK: no joint tenderness or swelling. Digits and nails normal, no deformity : kidney or bladder not palpable Labs/imaging reviewed. Past medical history, past surgical history, family history, social history, allergy reviewed and noted as below Family hx: no hx of CKD. Rest non-contributory Echo; normal lvef, severe MR/TR/CO renal imaging: left kidney cyst TSAT/Ferritin 12/356, SPEP/DILSHAD neg and normal FLC assay Vit D <12.8 PTH 286 urine alb/cr 126 mg/g Objective - Vital Signs/Intake and Output Vital Signs (last 24 hours): Temp Pulse Resp BP Pulse Ox 97.8 F 80 23 65/36 L 100 07/15/18 22:00 07/15/18 22:00 07/15/18 13:15 07/16/18 10:54 07/15/18 13:00 - Medications Medications: Current Medications Albuterol/Ipratropium (Duoneb 3 Mg/0.5 Mg (3 Ml) Ud) 3 ml IH [id number] [facility] Last Admin: 07/16/18 07:42 Dose: 3 ml Amino Acid Protein (Prostat 15 G Packet) 15 gm GT BID [facility] Last Admin: 07/16/18 11:04 Dose: 15 gm Al Hydrox/Mg Hydrox/Simethicone 30 ml/Diphenhydramine HCl 75 mg/Lidocaine 30 ml 0 ml PO Q2H PRN PRN Reason: Mouth/Throat Pain Digoxin (Digoxin) 0.125 mg PO 1400 [facility] Last Admin: 07/15/18 14:56 Dose: 0.125 mg Diltiazem HCl (Cardizem) 60 mg PO TID [facility] Last Admin: 07/11/18 18:06 Dose: 60 mg Ergocalciferol (Drisdol 50,000 Intl Units Cap) 1 cap PO Q7D [facility] Last Admin: 07/11/18 13:15 Dose: 1 cap Ferrous Gluconate (Fergon) 324 mg PO TID [facility] Last Admin: 07/16/18 10:51 Dose: 324 mg Fluticasone Propionate (Flonase) 1 actuation MARIAM DAILY [facility] Last Admin: 07/16/18 10:54 Dose: 1 spr Furosemide (Lasix) 40 mg IVP DAILY [facility] Last Admin: 07/16/18 10:54 Dose: Not Given Hydrocortisone Sodium Succinate (Solu-Cortef) 50 mg IVP Q8 [facility] Last Admin: 07/16/18 08:08 Dose: 50 mg Meropenem/Sodium Chloride (Merrem Iv 500 Mg/Ns 50 Ml) 500 mg in 50 mls @ 100 mls/hr IVPB Q12 [facility]; Protocol Stop: 07/19/18 22:01 Last Admin: 07/16/18 10:51 Dose: 100 mls/hr Linezolid (Zyvox 600mg/300ml D5w) 600 mg in 300 mls @ 200 mls/hr IVPB Q12 [facility]; Protocol Stop: 07/19/18 22:01 Last Admin: 07/16/18 10:52 Dose: 200 mls/hr NOREPINEPHRINE BIT/0.9 % NACL (Levophed 4 Mg/ 250 Ml Ns Premixed) 4 mg in 250 mls @ 15 mls/hr IV .[id number] PRN; Protocol PRN Reason: TITRATE PER MD ORDER Last Titration: 07/12/18 07:00 Dose: 0 mcg/min, 0 mls/hr Insulin Human Lispro (Humalog Low) 0 units SC ACHS [facility]; Protocol Last Admin: 07/16/18 08:05 Dose: Not Given Levothyroxine Sodium (Synthroid) 25 mcg PO DAILY [facility] Last Admin: 07/16/18 10:51 Dose: 25 mcg Midodrine (Proamatine) 10 mg PO TID [facility] Last Admin: 07/16/18 10:51 Dose: 10 mg Ondansetron HCl (Zofran Inj) 4 mg IVP Q6H PRN PRN Reason: Nausea/Vomiting Last Admin: 07/13/18 09:32 Dose: 4 mg Pantoprazole Sodium (Protonix Ec Tab) 40 mg PO DAILY [facility] Last Admin: 07/16/18 10:51 Dose: 40 mg Silver Sulfadiazine (Silvadene 1%) 0 ea TOP Q12H [facility] Last Admin: 07/15/18 13:23 Dose: 1 applic Vitamin B Complex/Vit C/Folic Acid (Nephro-Miguelito) 1 tab PO 0800 [facility] Last Admin: 07/16/18 08:08 Dose: 1 tab Warfarin Sodium (Coumadin) 4 mg PO 1800 [facility]; Protocol - Labs Labs: 07/16/18 08:00 07/16/18 08:00 PT 15.9 SECONDS (9.4-12.5) H 07/16/18 08:00 INR 1.37 07/16/18 08:00
--- NOTE | 2018-07-16 12:02 | PN ---
DATE: 07/16/2018 SUBJECTIVE: She is in Intensive Care Unit, resting on a very large bed. She is very alert. She has a lot to say this morning. She is having black stools today, which is sort of new for her. She is not eating that great either. She is being seen by Infectious Disease, Renal and Cardiology. There is a consult for Hematology/Oncology and orders were written by the doctor with no note. Also being seen by GI,Oncology, I was back in to evaluate the black stools. She is weak, not eating well. PHYSICAL EXAMINATION: GENERAL: She is alert, oriented x3 and aware. VITAL SIGNS: 97.8 temperature, 80 pulse, 18 respiratory rate, 105/67 blood pressure and 100% on oxygen. HEENT: Head is atraumatic and normocephalic. Throat is dry. She needs to get the magic mouthwash. HEART: Regular rate. LUNGS: Decreased breath sounds bilaterally, poor inspirations. ABDOMEN: Morbidly, morbidly, morbidly obese. Nontender. Positive bowel sounds. EXTREMITIES: Thinner, still +4/4 with lymphedema, bilateral thighs with bleeding in the ulcers that she has there. MEDICATIONS: She is on Cardizem. Coumadin, which we increased to 4 mg. Digoxin, Drisdol, DuoNebs, Fergon, Flonase, insulin, Lasix, Levophed, Merrem, Nephro-Miguelito, ProAmatine, Pro-Stat, Protonix, Silvadene cream, Solu-Cortef, Synthroid and Zyvox. LABORATORY DATA: She has a 15.3 white count; 8.4 hemoglobin, if it drops below 8, I will transfuse her. Hematocrit 26.4 and platelets 384. INR is down to 1.37, I increased her Coumadin from 3 mg to 4 mg daily. Waiting for the SMA-20 to come back. Checking her BUN and creatinine. Her last blood sugar was 148. About which I think about the black stools, we will wait for Hematology/Oncology to discuss the elevated CA-19-9. IV antibiotics as per Infectious Disease and she is not eating well at all. I am worried this pancreatic cancer on top of everything else is going on with her, which is a lot. Severe sepsis, rapid AFib, morbid obesity, CHF, COPD, acute kidney injury. I will check her labs tomorrow. Alan Mann DO MTDD
[2018-07-16] MEDS: Silver Sulfadiazine 1% Cream (400 gm) TOP SCH (12:48)
[2018-07-16] MEDS: Digoxin 125 mcg (0.125 mg) Tab PO SCH (13:12)
[2018-07-17] MEDS: Albuterol-Ipratrop 3 mg / 0.5 (3 ml) UD IH SCH ×4 (01:46→20:50)
[2018-07-17] MEDS: Silver Sulfadiazine 1% Cream (400 gm) TOP SCH ×2 (05:15→17:30)
[2018-07-17 08:36] LABS: INR 1.23; PROTHROMBIN TIME 14.2 SECONDS (9.4-12.5)
[2018-07-17 08:49] LABS: HEMOGLOBIN 8.5 g/dL (12.0-16.0); MEAN CELL VOLUME 81.8 fl (80.0-105.0); MEAN CORPUSCULAR HEMOGLOBIN 26.2 pg (25.0-35.0); RBC 3.25 10^6/uL (3.5-6.1); RED CELL DISTRIBUTION WIDTH 19.6 % (11.5-14.5); WHITE BLOOD COUNT 14.5 10^3/uL (4.5-11.0)
[2018-07-17 09:09] LABS: ALB/GLOB RATIO 0.8 (1.1-1.8); ALBUMIN 2.4 g/dL (3.0-4.8); CALCIUM 8.2 mg/dL (8.4-10.5)
[2018-07-17] MEDS: MEROPENEM 500 MG in NS 500 MG/50 ML BAG IVPB SCH (09:18)
[2018-07-17] MEDS: Insulin Lispro (humaLOG) LOW Coverage SC SCH ×4 (09:18→22:35)
[2018-07-17] MEDS: Levothyroxine 25 MCG TAB PO SCH (09:19)
[2018-07-17] MEDS: Pantoprazole 40 mg EC Tab PO SCH (09:19)
[2018-07-17] MEDS: Multivitamin Vitamin B Complex (Nephro-Vite) Tab PO SCH (09:19)
[2018-07-17] MEDS: Prostat 15 g packet GT SCH ×2 (09:20→18:17)
[2018-07-17] MEDS: Linezolid 600 mg in D5W 300 ml 600 MG/300 ML BAG IVPB SCH (09:20)
--- NOTE | 2018-07-17 11:23 | PN ---
DATE: 07/17/2018 SUBJECTIVE: I saw Maria Isabel in bed. She is still not eating well, very poor appetite. She is on IV antibiotics. She is doing okay. She is comfortable. She is in no pain, but not doing great. The last blood sugar was 187, this morning's labs are not back yet. PHYSICAL EXAMINATION: VITAL SIGNS: 97.1 temperature, 82 pulse, 102/57 blood pressure, 16 respiratory rate, 99% sat on 3 liters. HEAD: Atraumatic, normocephalic. HEART: Regular rate. LUNGS: Decreased breath sounds, but clear. ABDOMEN: Soft, morbidly, morbidly, morbidly obese. EXTREMITIES: Still +4/4 pitting edema, although she is shrinking, she is definitely losing a lot of weight. MEDICATIONS: She is currently on diltiazem, Coumadin, digoxin, Drisdol, DuoNebs, Fergon, Flonase, insulin, Lasix, Levophed, Merrem IV, Nephro-Miguelito, Primatene, , Protonix, Solu-Cortef, Synthroid, Zofran, and Zyvox. LABORATORY DATA: Waiting for labs to come back this morning. ASSESSMENT AND PLAN: I discussed with the patient and with the that my worry is of pancreatic cancer due to the elevated cancer marker. Still waiting for Dr. Mae to put a note in the chart about his plans and what his thoughts are. He ordered some extra tests, those results are also not back yet. GI is monitoring the hemoglobin level due to the dark stool yesterday. She has multiple consults on the case, Renal, Infectious Diseases, GI, Cardiology. I am waiting for Hematology/Oncology to give me their thoughts about the elevated CA19-9, which I think is for pancreatic cancer. She is still not eating. She lost over 200 pounds in two to three months. She also has an infection. We will continue aggressive treatment and care on Maria Isabel Bowden. Alan Mann DO ANUP
--- NOTE | 2018-07-17 12:29 | CP.PCM.PN ---
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 morbid obesity left kidney cyst Plan No acute need for renal replacement therapy at this time. Maintain hemodynamics stable. Avoid hypotension. Patient not on ACEI/ARB due to recent CRIS and low BP. but on a fib rate control meds. Monitor Input/Output, daily weights and renal function with basic metabolic panel started iron 324 mg TID and MVI daily and weekly Vit D supplement lytes as needed Dose meds/antibiotics for reduced GFR. Avoid fleets enema/magnesium based laxatives. Avoid nephrotoxins/NSAIDs/ iodinated contrast (unless needed emergently) Glycemic control Further work up/management as per primary team Thanks for allowing me to participate in care of your patient. Will follow patient with you. Please call if any Qs. had d/w team. 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 seen for CRIS with cr 0.6 at baseline and 1.3 at d/c. pt came with chest pain and SOB. Denies OTC/herbal meds or NSAIDs No recent iodinated contrast exposure. Noted obvious episodes of low sBP (80- 90s). reports chronic legs swelling. not aware about kidney disease in past. ROS: Cardiovascular: No chest pain. Pulmonary: improved chronic shortness of breath Gastrointestinal: denies abdominal pain No nausea. No vomiting. Genitourinary: No pain while urinating. Denies blood in urine. All other negative except as mentioned in HPI. has chronic legs swelling Physical Examination: General Appearance: Comfortable, in no acute respiratory distress, co-operative. morbidly obese ++ Vitals reviewed and noted as below Head; Atraumatic, normocephalic ENT: no ulcers no thrush. Tongue is midline. Oropharynx: no rash or ulcers. EYES: Pupils are equal, round and reactive to light accommodation. Eye muscles and extraocular movement intact. Sclera is anicteric. Neck; supple no lymphadenopathy, no thyromegaly or bruit Lungs: normal respiratory rate/effort. Breath sounds bilateral equal and clear Heart: Normal rate. s1s2 normal. No rub or gallop. Extremities: 1-2+ edema. No varicose veins Neurological: Patient is alert, awake and oriented to person, place and time. No focal deficit. Strength bilateral appropriate and equal Skin: Warm and dry. Normal turgor. No rash. Palpitation: Normal elasticity for age Abdomen: Abdomen is soft. Bowel sounds +. There is no abdominal tenderness, no guarding/rigidity no organomegaly Psych: normal insight and normal affect/mood MSK: no joint tenderness or swelling. Digits and nails normal, no deformity : kidney or bladder not palpable Labs/imaging reviewed. Past medical history, past surgical history, family history, social history, allergy reviewed and noted as below Family hx: no hx of CKD. Rest non-contributory Echo; normal lvef, severe MR/TR/NV renal imaging: left kidney cyst TSAT/Ferritin 12/356, SPEP/DILSHAD neg and normal FLC assay Vit D <12.8 PTH 286 urine alb/cr 126 mg/g Objective - Vital Signs/Intake and Output Vital Signs (last 24 hours): Temp Pulse Resp BP Pulse Ox 97.6 F 79 16 116/66 96 07/17/18 11:58 07/17/18 11:58 07/17/18 11:58 07/17/18 10:00 07/17/18 11:58 Intake and Output: 07/17/18 07/17/18 06:59 18:59 Intake Total 1250 350 Output Total 600 Balance 650 350 - Medications Medications: Current Medications Albuterol/Ipratropium (Duoneb 3 Mg/0.5 Mg (3 Ml) Ud) 3 ml IH [id number] [facility] Last Admin: 07/17/18 07:42 Dose: Not Given Amino Acid Protein (Prostat 15 G Packet) 15 gm GT BID [facility] Last Admin: 07/17/18 09:20 Dose: 15 gm Al Hydrox/Mg Hydrox/Simethicone 30 ml/Diphenhydramine HCl 75 mg/Lidocaine 30 ml 0 ml PO Q2H PRN PRN Reason: Mouth/Throat Pain Digoxin (Digoxin) 0.125 mg PO 1400 [facility] Last Admin: 07/16/18 13:12 Dose: 0.125 mg Diltiazem HCl (Cardizem) 60 mg PO TID [facility] Last Admin: 07/11/18 18:06 Dose: 60 mg Ergocalciferol (Drisdol 50,000 Intl Units Cap) 1 cap PO Q7D [facility] Last Admin: 07/11/18 13:15 Dose: 1 cap Ferrous Gluconate (Fergon) 324 mg PO TID [facility] Last Admin: 07/17/18 09:18 Dose: 324 mg Fluticasone Propionate (Flonase) 1 actuation MARIAM DAILY [facility] Last Admin: 07/16/18 10:54 Dose: 1 spr Furosemide (Lasix) 40 mg IVP DAILY [facility] Last Admin: 07/17/18 09:26 Dose: 40 mg Hydrocortisone Sodium Succinate (Solu-Cortef) 50 mg IVP Q8 [facility] Last Admin: 07/17/18 05:18 Dose: 50 mg NOREPINEPHRINE BIT/0.9 % NACL (Levophed 4 Mg/ 250 Ml Ns Premixed) 4 mg in 250 mls @ 15 mls/hr IV .[id number] PRN; Protocol PRN Reason: TITRATE PER MD ORDER Last Titration: 07/12/18 07:00 Dose: 0 mcg/min, 0 mls/hr Insulin Human Lispro (Humalog Low) 0 units SC ACHS [facility]; Protocol Last Admin: 07/17/18 09:18 Dose: 1 unit Levothyroxine Sodium (Synthroid) 25 mcg PO DAILY [facility] Last Admin: 07/17/18 09:19 Dose: 25 mcg Midodrine (Proamatine) 10 mg PO TID [facility] Last Admin: 07/17/18 09:19 Dose: 10 mg Ondansetron HCl (Zofran Inj) 4 mg IVP Q6H PRN PRN Reason: Nausea/Vomiting Last Admin: 07/13/18 09:32 Dose: 4 mg Pantoprazole Sodium (Protonix Ec Tab) 40 mg PO DAILY [facility] Last Admin: 07/17/18 09:19 Dose: 40 mg Silver Sulfadiazine (Silvadene 1%) 0 ea TOP Q12H [facility] Last Admin: 07/17/18 05:15 Dose: 4 applic Vitamin B Complex/Vit C/Folic Acid (Nephro-Miguelito) 1 tab PO 0800 [facility] Last Admin: 07/17/18 09:19 Dose: 1 tab Warfarin Sodium (Coumadin) 5 mg PO 1800 [facility] - Labs Labs: 07/17/18 08:10 07/17/18 08:10 PT 14.2 SECONDS (9.4-12.5) H 07/17/18 08:10 INR 1.23 07/17/18 08:10
[2018-07-17] MEDS: Fluticasone Nasal 50 mcg/Spray NAS SCH (12:35)
--- NOTE | 2018-07-17 13:04 | PN ---
DATE: 07/17/2018 SUBJECTIVE: The patient is in bed in no acute distress, nontoxic on exam. OBJECTIVE: VITAL SIGNS: Temperature is 98, blood pressure is 116/60, respiratory rate of 18. HEENT: Unremarkable. NECK: Supple. LUNGS: Have decreased breath sounds. HEART: Normal S1, S2. ABDOMEN: Soft, nontender. LABORATORY EXAMINATION: Reveals a white count is down to 14,500, hemoglobin of 8, creatinine is down to 1.8. Procalcitonin 0.37, urinalysis is noted and influenza is negative. Microbiology reveals a gram-negative gopal in the urine and review of orders reveals the patient to be on meropenem and Zyvox. ASSESSMENT AND PLAN: A 73-year-old female with super morbid obesity, body mass index of 68 with severe sepsis with secondary to bilateral lower lobe healthcare-associated pneumonia, history of extended-spectrum beta-lactamase Escherichia coli and Pseudomonas on the lower extremity with [id number] kidney injury, chronic congestive heart failure, chronic obstructive pulmonary disease, diabetes with meropenem and Zyvox and with a gram-negative gopal in the urine, unremarkable urinalysis. Today is day #8 of antibiotics with improvement of leukocytosis. The patient is on Solu-Cortef. We will discontinue the antibiotics. Santy Fernandez MD
[2018-07-17] MEDS: Digoxin 125 mcg (0.125 mg) Tab PO SCH (15:04)
--- NOTE | 2018-07-17 15:40 | PN ---
DATE: 07/17/2018 SUBJECTIVE: The patient is without shortness of breath, sitting in bed. PHYSICAL EXAMINATION: VITAL SIGNS: Blood pressure 85 systolic, heart rate is in the 80s. NECK: Negative JVD. LUNGS: Decreased breath sounds. HEART: S1, S2. EXTREMITIES: Chronic edema. LABORATORY DATA: Laboratories were reviewed. IMPRESSION: 1. Atrial fibrillation. 2. Pulmonary hypertension. 3. Chronic obstructive pulmonary disease. 4. Good left ventricle function. Given these findings, the patient's cardiac status remains stable. She is continued on antibiotics. Ryan Turk MD
[2018-07-17] MEDS: Ergocalciferol 50,000 Intl Units Cap PO SCH (17:22)
[2018-07-18] MEDS: Albuterol-Ipratrop 3 mg / 0.5 (3 ml) UD IH SCH ×4 (02:15→20:30)
[2018-07-18 07:25] LABS: HEMOGLOBIN 8.6 g/dL (12.0-16.0); MEAN CORPUSCULAR HEMOGLOBIN 25.5 pg (25.0-35.0); MEAN CORPUSCULAR HGB CONC 31.5 g/dl (31.0-37.0); MEAN PLATELET VOLUME 9.1 fl (7.0-11.0); RBC 3.37 10^6/uL (3.5-6.1); RED CELL DISTRIBUTION WIDTH 16.8 % (11.5-14.5); WHITE BLOOD COUNT 11.5 10^3/uL (4.5-11.0)
[2018-07-18 07:27] LABS: INR 1.41; PROTHROMBIN TIME 16.3 SECONDS (9.4-12.5)
[2018-07-18 07:41] LABS: ALB/GLOB RATIO 0.9 (1.1-1.8); ALBUMIN 2.6 g/dL (3.0-4.8); CALCIUM 8.3 mg/dL (8.4-10.5)
[2018-07-18] MEDS: Insulin Lispro (humaLOG) LOW Coverage SC SCH ×4 (08:25→22:00)
[2018-07-18] MEDS: Multivitamin Vitamin B Complex (Nephro-Vite) Tab PO SCH (08:25)
--- NOTE | 2018-07-18 08:25 | PN ---
CARDIOLOGY FOLLOWUP DATE: 07/18/2018 SUBJECTIVE: The patient is awake, alert, sitting up in bed. Ate breakfast well. PHYSICAL EXAMINATION: VITAL SIGNS: Blood pressure is 95 systolic and heart rate is in the 80s, atrial fibrillation. NECK: Negative JVD. LUNGS: Decreased breath sounds. HEART: S1 and S2. EXTREMITIES: Without change. LABORATORY DATA: Hemoglobin is 8.6. Chemistries, BUN and creatinine is 41 and 2.1. IMPRESSION: 1. Atrial fibrillation. 2. Morbid obesity. 3. Diabetes mellitus. 4. Renal insufficiency. 5. Pulmonary hypertension. 6. Normal left ventricular function. Given these findings, her blood pressure and heart rate is stable. From a cardiac perspective, the patient can be transferred out of the ICU. Ryan Turk MD
--- NOTE | 2018-07-18 09:51 | DS ---
HISTORY OF PRESENT ILLNESS: I saw her in the Intensive Care Unit and I found out that she is off antibiotics right now and she can be discharged to go home on Cardizem which is on hold which she is usually taking, not sure why that was on hold, Coumadin, digoxin, DuoNebs, Fergon, Flonase, Lasix, Maalox, Nephro-Miguelito, ProAmatine, Protonix, Solu-Cortef, Synthroid and Zofran. PHYSICAL EXAMINATION: VITAL SIGNS: She has 97.6 temperature, 88 pulse, 102/57 blood pressure 22, respiratory rate, 98% O2 sat on nasal cannula. HEENT: Head is atraumatic, normocephalic. HEART: Regular rate. LUNGS: Decreased breath sounds but clear. ABDOMEN: Morbidly, morbidly, morbidly obese. EXTREMITIES: A +4 pitting edema bilaterally. She is doing better. She is eating a little bit better. She is being seen by Infectious Disease, Cardiology, Renal, GI. I am waiting to see if Hematology/Oncology will be seeing her writing a note because her CA19-9 was very elevated. I will discuss this with the other doctors, got some of those medications and she was here for rapid AFib, CHF, COPD, also she had an elevated CA19-9 and weight loss. Alan Mann DO
[2018-07-18] MEDS: Fluticasone Nasal 50 mcg/Spray NAS SCH (09:58)
[2018-07-18] MEDS: Pantoprazole 40 mg EC Tab PO SCH (10:04)
[2018-07-18] MEDS: Levothyroxine 25 MCG TAB PO SCH (10:05)
--- NOTE | 2018-07-18 11:08 | CP.PCM.PN ---
<Marcio Moon - Last Filed: 07/18/18 13:16> Subjective - Date & Time of Evaluation Date of Evaluation: 07/18/18 Time of Evaluation: 10:49 - Subjective Subjective: Infectious disease progress note for Dr. Trujillo/Dr. Fernandez service - Gay Moon PGY3 Patient seen and examined at bedside this morning. No acute overnight events or new complaints reported. Completed 7 day course of meropenem/zyvox for bilateral lower lobe HCAP. Denies cp, palpitations, SOB. Objective - Vital Signs/Intake and Output Vital Signs (last 24 hours): Temp Pulse Resp BP Pulse Ox 97.6 F 81 22 100/50 L 98 07/18/18 06:00 07/18/18 08:58 07/18/18 06:00 07/18/18 10:03 07/18/18 06:00 Intake and Output: 07/18/18 07/18/18 06:59 18:59 Output Total 500 Balance -500 - Medications Medications: Current Medications Albuterol/Ipratropium (Duoneb 3 Mg/0.5 Mg (3 Ml) Ud) 3 ml IH [id number] [facility] Last Admin: 07/18/18 07:20 Dose: Not Given Amino Acid Protein (Prostat 15 G Packet) 15 gm GT BID [facility] Last Admin: 07/17/18 18:17 Dose: 15 gm Al Hydrox/Mg Hydrox/Simethicone 30 ml/Diphenhydramine HCl 75 mg/Lidocaine 30 ml 0 ml PO Q2H PRN PRN Reason: Mouth/Throat Pain Digoxin (Digoxin) 0.125 mg PO 1400 [facility] Last Admin: 07/17/18 15:04 Dose: Not Given Diltiazem HCl (Cardizem) 60 mg PO TID [facility] Last Admin: 07/11/18 18:06 Dose: 60 mg Ergocalciferol (Drisdol 50,000 Intl Units Cap) 1 cap PO Q7D [facility] Last Admin: 07/17/18 17:22 Dose: 1 cap Ferrous Gluconate (Fergon) 324 mg PO TID [facility] Last Admin: 07/18/18 10:03 Dose: 324 mg Fluticasone Propionate (Flonase) 1 actuation MARIAM DAILY [facility] Last Admin: 07/18/18 09:58 Dose: 1 spr Furosemide (Lasix) 40 mg IVP DAILY [facility] Last Admin: 07/18/18 10:03 Dose: 40 mg Hydrocortisone Sodium Succinate (Solu-Cortef) 50 mg IVP Q8 [facility] Last Admin: 07/18/18 05:26 Dose: 50 mg Insulin Human Lispro (Humalog Low) 0 units SC ACHS [facility]; Protocol Last Admin: 07/18/18 08:25 Dose: 1 unit Levothyroxine Sodium (Synthroid) 25 mcg PO DAILY [facility] Last Admin: 07/18/18 10:05 Dose: 25 mcg Midodrine (Proamatine) 10 mg PO TID [facility] Last Admin: 07/18/18 10:04 Dose: 10 mg Ondansetron HCl (Zofran Inj) 4 mg IVP Q6H PRN PRN Reason: Nausea/Vomiting Last Admin: 07/13/18 09:32 Dose: 4 mg Pantoprazole Sodium (Protonix Ec Tab) 40 mg PO DAILY [facility] Last Admin: 07/18/18 10:04 Dose: 40 mg Silver Sulfadiazine (Silvadene 1%) 0 ea TOP Q12H [facility] Last Admin: 07/17/18 17:30 Dose: 1 applic Vitamin B Complex/Vit C/Folic Acid (Nephro-Miguelito) 1 tab PO 0800 [facility] Last Admin: 07/18/18 08:25 Dose: 1 tab Warfarin Sodium (Coumadin) 5 mg PO 1800 [facility] Last Admin: 07/17/18 18:16 Dose: 5 mg - Labs Labs: 07/18/18 06:55 07/18/18 06:55 PT 16.3 SECONDS (9.4-12.5) H 07/18/18 06:55 INR 1.41 07/18/18 06:55 - Constitutional Appears: Chronically Ill - Head Exam Head Exam: ATRAUMATIC, NORMAL INSPECTION, NORMOCEPHALIC - Eye Exam Eye Exam: EOMI, PERRL - ENT Exam ENT Exam: Mucous Membranes Moist - Respiratory Exam Respiratory Exam: Decreased Breath Sounds. absent: Rales, Rhonchi, Wheezes - Cardiovascular Exam Cardiovascular Exam: +S1, +S2. absent: Gallop, Rubs - GI/Abdominal Exam GI & Abdominal Exam: Soft. absent: Distended, Firm, Guarding, Rigid, Tenderness, Rebound - Neurological Exam Neurological Exam: Alert, Awake, Oriented x3 - Psychiatric Exam Psychiatric exam: Normal Affect, Normal Mood - Skin Skin Exam: Dry, Intact, Normal Color, Warm Assessment and Plan - Assessment and Plan (Free Text) Plan: 73yo female with history of morbid obesity, CHF, COPD, DM, afib on a nticoagulation, PVD, lymphedema presents with severe sepsis secondary to healthcare-associated pneumonia in the setting of acute kidney injury 1. Severe sepsis secondary to bilateral lower lobe HCAP 2. Hx of ESBL ecoli and pseudomonas of the lower extremities 3. Acute on chronic kidney injury 4. CHF, chronic 5. COPD, chronic 6. DM type 2 7. morbid obesity -Completed 7 day course of meropenem and zyvox; abx may be discontinued after today and pt will be monitored clinically -At risk of developing nosocomial infections -rapid flu negative -MRSA screen negative -blood cultures negative; gram - gopal in the urine however only 10k CFU -Procalcitonin negative -CXR revealed borderline infiltrate in right suprahilar space -EKG reviewed Patient seen and case discussed/reviewed with attending, Dr. Trujillo <Brandan Trujillo S - Last Filed: 07/18/18 22:20> Objective - Vital Signs/Intake and Output Vital Signs (last 24 hours): Temp Pulse Resp BP Pulse Ox 97.6 F 68 18 102/50 L 95 07/18/18 06:00 07/18/18 17:41 07/18/18 17:41 07/18/18 18:20 07/18/18 16:17 Intake and Output: 07/18/18 07/19/18 18:59 06:59 Intake Total 100 Balance 100 - Medications Medications: Current Medications Albuterol/Ipratropium (Duoneb 3 Mg/0.5 Mg (3 Ml) Ud) 3 ml IH [id number] [facility] Last Admin: 07/18/18 13:36 Dose: Not Given Amino Acid Protein (Prostat 15 G Packet) 15 gm GT BID [facility] Last Admin: 07/18/18 17:45 Dose: 15 gm Al Hydrox/Mg Hydrox/Simethicone 30 ml/Diphenhydramine HCl 75 mg/Lidocaine 30 ml 0 ml PO Q2H PRN PRN Reason: Mouth/Throat Pain Digoxin (Digoxin) 0.125 mg PO 1400 [facility] Last Admin: 07/18/18 13:27 Dose: 0.125 mg Diltiazem HCl (Cardizem) 60 mg PO TID [facility] Last Admin: 07/11/18 18:06 Dose: 60 mg Ergocalciferol (Drisdol 50,000 Intl Units Cap) 1 cap PO Q7D [facility] Last Admin: 07/17/18 17:22 Dose: 1 cap Ferrous Gluconate (Fergon) 324 mg PO TID [facility] Last Admin: 07/18/18 17:45 Dose: 324 mg Fluticasone Propionate (Flonase) 1 actuation MARIAM DAILY [facility] Last Admin: 07/18/18 09:58 Dose: 1 spr Furosemide (Lasix) 40 mg IVP DAILY [facility] Last Admin: 07/18/18 10:03 Dose: 40 mg Hydrocortisone Sodium Succinate (Solu-Cortef) 50 mg IVP Q8 [facility] Last Admin: 07/18/18 22:15 Dose: 50 mg Insulin Human Lispro (Humalog Low) 0 units SC ACHS [facility]; Protocol Last Admin: 07/18/18 17:52 Dose: 2 unit Levothyroxine Sodium (Synthroid) 25 mcg PO DAILY [facility] Last Admin: 07/18/18 10:05 Dose: 25 mcg Midodrine (Proamatine) 10 mg PO TID [facility] Last Admin: 07/18/18 17:45 Dose: 10 mg Ondansetron HCl (Zofran Inj) 4 mg IVP Q6H PRN PRN Reason: Nausea/Vomiting Last Admin: 07/13/18 09:32 Dose: 4 mg Pantoprazole Sodium (Protonix Ec Tab) 40 mg PO DAILY [facility] Last Admin: 07/18/18 10:04 Dose: 40 mg Silver Sulfadiazine (Silvadene 1%) 0 ea TOP Q12H [facility] Last Admin: 07/18/18 13:28 Dose: Not Given Vitamin B Complex/Vit C/Folic Acid (Nephro-Miguelito) 1 tab PO 0800 [facility] Last Admin: 07/18/18 08:25 Dose: 1 tab Warfarin Sodium (Coumadin) 5 mg PO 1800 [facility] Last Admin: 07/18/18 17:52 Dose: 5 mg - Labs Labs: 07/18/18 06:55 07/18/18 06:55 PT 16.3 SECONDS (9.4-12.5) H 07/18/18 06:55 INR 1.41 07/18/18 06:55 Assessment and Plan - Assessment and Plan (Free Text) Plan: Infectious diseases Attending Physician Attestation Patient seen and examined, discussed with medical housekeeper. I have reviewed the patient's history of present illness, past medical, social, personal and family histories, pertinent physical exam findings, course so far in this hospital admission, pertinent laboratory and imaging results. I agree with the above findings, assessment and plan. In addition, patient completed course of Zyvox and Merrem for bilateral lower lobe HCAP with sepsis. Will continue to monitor off antibiotics since she is at risk for nosocomial infections.
[2018-07-18] MEDS: Prostat 15 g packet GT SCH ×2 (12:03→17:45)
[2018-07-18] MEDS: Digoxin 125 mcg (0.125 mg) Tab PO SCH (13:27)
[2018-07-18] MEDS: Silver Sulfadiazine 1% Cream (400 gm) TOP SCH (13:28)
--- NOTE | 2018-07-18 15:46 | CP.PCM.PN ---
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 morbid obesity left kidney cyst Plan No acute need for renal replacement therapy at this time. Maintain hemodynamics stable. Avoid hypotension. Patient not on ACEI/ARB due to recent CRIS and low BP. but on a fib rate control meds. Monitor Input/Output, daily weights and renal function with basic metabolic panel started iron 324 mg TID and MVI daily and weekly Vit D supplement lytes as needed pancreatic work up as per GI Dose meds/antibiotics for reduced GFR. Avoid fleets enema/magnesium based laxatives. Avoid nephrotoxins/NSAIDs/ iodinated contrast (unless needed emergently) Glycemic control Further work up/management as per primary team pt stable from renal perspective Thanks for allowing me to participate in care of your patient. Will follow patient with you. Please call if any Qs. had d/w team. 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 s een for CRIS with cr 0.6 at baseline and 1.3 at d/c. pt came with chest pain and SOB. Denies OTC/herbal meds or NSAIDs No recent iodinated contrast exposure. Noted obvious episodes of low sBP (80-90s). reports chronic legs swelling. not aware about kidney disease in past. ROS: Cardiovascular: No chest pain. Pulmonary: improved chronic shortness of breath Gastrointestinal: denies abdominal pain No nausea. No vomiting. Genitourinary: No pain while urinating. Denies blood in urine. All other negative except as mentioned in HPI. has chronic legs swelling Physical Examination: General Appearance: Comfortable, in no acute respiratory distress, co-operative. morbidly obese ++ Vitals reviewed and noted as below Head; Atraumatic, normocephalic ENT: no ulcers no thrush. Tongue is midline. Oropharynx: no rash or ulcers. EYES: Pupils are equal, round and reactive to light accommodation. Eye muscles and extraocular movement intact. Sclera is anicteric. Neck; supple no lymphadenopathy, no thyromegaly or bruit Lungs: normal respiratory rate/effort. Breath sounds bilateral equal and clear Heart: Normal rate. s1s2 normal. No rub or gallop. Extremities: 1-2+ edema. No varicose veins Neurological: Patient is alert, awake and oriented to person, place and time. No focal deficit. Strength bilateral appropriate and equal Skin: Warm and dry. Normal turgor. No rash. Palpitation: Normal elasticity for age Abdomen: Abdomen is soft. Bowel sounds +. There is no abdominal tenderness, no guarding/rigidity no organomegaly Psych: normal insight and normal affect/mood MSK: no joint tenderness or swelling. Digits and nails normal, no deformity : kidney or bladder not palpable Labs/imaging reviewed. Past medical history, past surgical history, family history, social history, allergy reviewed and noted as below Family hx: no hx of CKD. Rest non-contributory Echo; normal lvef, severe MR/TR/NY renal imaging: left kidney cyst TSAT/Ferritin 12/356, SPEP/DILSHAD neg and normal FLC assay Vit D <12.8 PTH 286 urine alb/cr 126 mg/g Objective - Vital Signs/Intake and Output Vital Signs (last 24 hours): Temp Pulse Resp BP Pulse Ox 97.6 F 81 22 100/50 L 98 07/18/18 06:00 07/18/18 08:58 07/18/18 06:00 07/18/18 10:03 07/18/18 06:00 Intake and Output: 07/18/18 07/18/18 06:59 18:59 Output Total 500 Balance -500 - Medications Medications: Current Medications Albuterol/Ipratropium (Duoneb 3 Mg/0.5 Mg (3 Ml) Ud) 3 ml IH [id number] [facility] Last Admin: 07/18/18 13:36 Dose: Not Given Amino Acid Protein (Prostat 15 G Packet) 15 gm GT BID [facility] Last Admin: 07/18/18 12:03 Dose: 15 gm Al Hydrox/Mg Hydrox/Simethicone 30 ml/Diphenhydramine HCl 75 mg/Lidocaine 30 ml 0 ml PO Q2H PRN PRN Reason: Mouth/Throat Pain Digoxin (Digoxin) 0.125 mg PO 1400 [facility] Last Admin: 07/18/18 13:27 Dose: 0.125 mg Diltiazem HCl (Cardizem) 60 mg PO TID [facility] Last Admin: 07/11/18 18:06 Dose: 60 mg Ergocalciferol (Drisdol 50,000 Intl Units Cap) 1 cap PO Q7D [facility] Last Admin: 07/17/18 17:22 Dose: 1 cap Ferrous Gluconate (Fergon) 324 mg PO TID [facility] Last Admin: 07/18/18 13:27 Dose: 324 mg Fluticasone Propionate (Flonase) 1 actuation MARIAM DAILY [facility] Last Admin: 07/18/18 09:58 Dose: 1 spr Furosemide (Lasix) 40 mg IVP DAILY [facility] Last Admin: 07/18/18 10:03 Dose: 40 mg Hydrocortisone Sodium Succinate (Solu-Cortef) 50 mg IVP Q8 [facility] Last Admin: 07/18/18 13:28 Dose: 50 mg Insulin Human Lispro (Humalog Low) 0 units SC ACHS [facility]; Protocol Last Admin: 07/18/18 12:01 Dose: 1 unit Levothyroxine Sodium (Synthroid) 25 mcg PO DAILY [facility] Last Admin: 07/18/18 10:05 Dose: 25 mcg Midodrine (Proamatine) 10 mg PO TID [facility] Last Admin: 07/18/18 13:27 Dose: 10 mg Ondansetron HCl (Zofran Inj) 4 mg IVP Q6H PRN PRN Reason: Nausea/Vomiting Last Admin: 07/13/18 09:32 Dose: 4 mg Pantoprazole Sodium (Protonix Ec Tab) 40 mg PO DAILY [facility] Last Admin: 07/18/18 10:04 Dose: 40 mg Silver Sulfadiazine (Silvadene 1%) 0 ea TOP Q12H [facility] Last Admin: 07/18/18 13:28 Dose: Not Given Vitamin B Complex/Vit C/Folic Acid (Nephro-Miguelito) 1 tab PO 0800 [facility] Last Admin: 07/18/18 08:25 Dose: 1 tab Warfarin Sodium (Coumadin) 5 mg PO 1800 [facility] Last Admin: 07/17/18 18:16 Dose: 5 mg - Labs Labs: 07/18/18 06:55 07/18/18 06:55 PT 16.3 SECONDS (9.4-12.5) H 07/18/18 06:55 INR 1.41 07/18/18 06:55
[2018-07-18 16:18] VITALS: O2SAT 95
[2018-07-19] MEDS: Albuterol-Ipratrop 3 mg / 0.5 (3 ml) UD IH SCH ×4 (02:20→19:45)
[2018-07-19] MEDS: Insulin Lispro (humaLOG) LOW Coverage SC SCH ×4 (08:00→22:19)
--- NOTE | 2018-07-19 08:08 | PN ---
DATE: 07/18/2018 SUBJECTIVE: This is a 73-year-old woman who has been losing about 100 pounds and 50 pounds over the last couple of months and she has a CA-99 that is slightly elevated at 62. PHYSICAL EXAMINATION: SKIN: No petechiae. No bruises. HEENT: Anicteric. NODES: None palpable in the axillary, cervical, supraclavicular, or inguinal regions. LUNGS: Clear at present. No vertebral tenderness. HEART: S1 and S2, irregularly irregular. ABDOMEN: She is a massively obese woman. She is about 350 pounds now that she has lost about 100 to 150 pounds over the last couple of months. It is certainly impossible to examine the abdomen, there is no actual liver, spleen, tenderness, rebound, or abdominal caking. EXTREMITIES: Shows some edema in ankles. CENTRAL NERVOUS SYSTEM: No focal findings. ASSESSMENT AND PLAN: I explained to the patient and the that the reason why she is in the hospital is for the congestive heart failure and the atrial fibrillation and she should be treated for that and sent home, which will be care home. In terms of the CA-99 and the possibility of occult pancreatic malignancy, she is too large to fit into almost any of these CAT scans, so I told them I will try to see if there is any that can accommodate her size. Secondly, even though she did have pancreatic cancer, most likely she is not the surgical candidate and radiation therapy would be relatively difficult to give her, but regardless when I have seen her many times, we cannot even find the pancreatic cancer on simple CAT scan, However, I spoke to Dr. Alan Mann and I explained to him that for acute problems, she can be discharged, to be done as an outpatient and try over the next couple of days to see if I can find some place that can accommodate her. Wes Mae MD
[2018-07-19] MEDS: Pantoprazole 40 mg EC Tab PO SCH (09:13)
[2018-07-19] MEDS: Multivitamin Vitamin B Complex (Nephro-Vite) Tab PO SCH (09:13)
[2018-07-19] MEDS: Levothyroxine 25 MCG TAB PO SCH (09:13)
[2018-07-19] MEDS: Prostat 15 g packet GT SCH ×2 (10:00→17:00)
--- NOTE | 2018-07-19 11:13 | PN ---
DATE: 07/19/2018 SUBJECTIVE: The patient is without shortness of breath. OBJECTIVE: VITAL SIGNS: Blood pressure 115/71, heart rate is in the 90s, atrial fibrillation. NECK: Negative JVD. LUNGS: Decreased breath sounds. HEART: Reveal S1, S2. EXTREMITIES: Chronic edema. LABORATORY DATA: Were not drawn today. The patient has been transferred out today. IMPRESSION: 1. Atrial fibrillation. 2. Morbid obesity. 3. Pulmonary hypertension. 4. Renal insufficiency. 5. Diabetes mellitus. Given these findings, we will we will change her Cardizem to low-dose long-acting Cardizem today. The patient remains hemodynamically stable. Ryan Turk MD
--- NOTE | 2018-07-19 11:34 | DS ---
I am hoping arranged for to be discharged later on this afternoon. She also wants to see a leasing director before she leaves take care of before she goes. She is here with a bunch of issues. She had rapid atrial fibrillation. I believe she has major weight loss secondary to pancreatic cancer since one of the enzymes are very elevated. We trying to find a CAT scan in the area that can possibly take her size. She was 700 pounds 3 months ago, now she is down to 374. PHYSICAL EXAMINATION: VITAL SIGNS: She has a 97.7 temperature, 76 pulse, 111/45 blood pressure, 15 respiratory rate. HEENT: Head is atraumatic, normocephalic. She is really not eating anymore. Very poor appetite. HEART: Regular rate. LUNGS: Decreased breath sounds. ABDOMEN: Morbidly obese. EXTREMITIES: Both thighs have a healing ulcers. Extremities are still very swollen from lymphedema. MEDICATIONS: She is on the Cardizem, Coumadin, digoxin, Drisdol, DuoNebs, Fergon, Flonase, insulin, Lasix, Nephro-Miguelito, ProAmatine, Pro-Stat, Protonix, Silvadene, Solu-Cortef, which I will change to prednisone when she leaves, Synthroid and Zofran. LABORATORY DATA: She has 11.5 white count, the best it has been; 8.6 hemoglobin, 27.3 hematocrit with 322 platelets. INR is up to 1.4 on the elevated Coumadin. Sodium 134; potassium 3.9; BUN 41; creatinine 2.1, also getting better. Last blood sugar was 190. Calcium is 8.3, total bili is 0.6, AST is 24, ALT is 26, alk phos 152. IMPRESSION AND PLAN: I am hoping she could be discharged today to her home. She refused going to a long-term acute care. I had spoken to the and her three to four times at length and they do not want to go to a long-term acute care at all and they asked me to stop talking to them about it. She was seen by Dr. Mae and we believe there is a pancreatic malignancy. He is looking for a CAT scan that we her size. As of this time, no treatment by Oncology Hematology. Hopefully, we could discharge her today if the case management and 7th grade social studies teacher to arrange transportation with the ambulance to her home. I will do house call order once they know she is home. Alan Mann DO [id number]
--- NOTE | 2018-07-19 13:00 | CP.PCM.CON ---
<Epi Wray - Last Filed: 07/19/18 12:45> History of Present Illness - History of Present Illness History of Present Illness: Podiatry Consult Note for attending Dr. Hsieh 73 y/o F Patient with PMH of CHF, AFib, COPD, DM2, hypothyroidism, severe LE lymphedema with chronic thigh wounds, chronic venous insuffiency seen and evaluated at the bedside for elongated, dystrophic, discolored and painful toe nails. Patient states that her toe nails are elongated and painful since long time; She states that due to her general condition she can't reach her toes to take care of it. She states that they cause discomfort with pressure. Patient denies any other pedal complaint at this time. Patient has SOB. But denies F or C. PMH: CHF, AFib, COPD, DM2, hypothyroidism, severe LE lymphedema with chronic thigh wounds, chronic venous insuffiency PSH: RLE abscess I&D, excision of L-sided abdominal wall mass Allergies: NKDA Social Hx: Denies smoking, EtOH or Illicit drug use Review of Systems - Review of Systems Review of Systems: As per HPI Past Patient History - Infectious Disease Hx of Infectious Diseases: None - Tetanus Immunizations Tetanus Immunization: Unknown - Past Social History Smoking Status: Never Smoked - CARDIAC Hx Cardiac Disorders: Yes (palpitations, afib) Hx Angina: Yes Hx Cardia Arrhythmia: Yes Hx Congestive Heart Failure: Yes Hx Pacemaker: No Hx Peripheral Edema: Yes (ble +4 pitting) Hx Peripheral Vascular Disease: Yes (lymphadema) - PULMONARY Hx Respiratory Disorders: Yes (using 02 at home/ nebulizer machine) Hx Asthma: Yes Hx Chronic Obstructive Pulmonary Disease (COPD): Yes Hx Emphysema: Yes Hx Pneumonia: Yes - NEUROLOGICAL Hx Neurological Disorder: No - HEENT Hx HEENT Problems: Yes (glasses) Other/Comment: thrush to oral cavity and tongue - RENAL Hx Chronic Kidney Disease: No - ENDOCRINE/METABOLIC Hx Endocrine Disorders: Yes Hx Diabetes Mellitus Type 2: Yes - HEMATOLOGICAL/ONCOLOGICAL Hx Blood Disorders: Yes (septicemia) Hx Anemia: Yes - INTEGUMENTARY Hx Dermatological Problems: Yes (chronic venous stasis dermatitis ble) Other/Comment: pt is obese, right outer thigh skin openings healed, redness, hard brown dry skin, dimpling to left thigh, pt c/o that she, sometimes has drainage from left thigh. both lower legs and feet dry skin. redness and discoloration to right abd fold healed, ble +4 pitting edema & brown discolored dry skin, dry skin and toenails both feet, multiple healing unmeasurable wounds to b/l buttocks, irregular wound left buttock red, multiple wounds in various stages of healing to entire abd, multiple areas of red foul smelling and draining light green purulent drainage wounds to upper and lower abd, discolored brown skin to abd, healing wounds to b/l thighs - MUSCULOSKELETAL/RHEUMATOLOGICAL Hx Falls: No - GASTROINTESTINAL Hx Gastrointestinal Disorders: Yes (benign mass removed from abd 30 yrs ago) Other/Comment: morbid obesity, blood in stool - GENITOURINARY/GYNECOLOGICAL Hx Genitourinary Disorders: Yes Hx Hematuria: Yes Hx Incontinence: Yes (urine and stool) Hx Urinary Tract Infection: Yes - PSYCHIATRIC Hx Substance Use: No - SURGICAL HISTORY Hx Surgeries: Yes (tayler picc line today 07/10/18) Hx Cardiac Catheterization: Yes Hx Mastectomy: No Other/Comment: benign mass removed from abd over 30 yrs ago - ANESTHESIA Hx Anesthesia: Yes Meds Allergies/Adverse Reactions: Allergies Allergy/AdvReac Type Severity Reaction Status Date / Time No Known Allergies Allergy Verified 07/10/18 04:46 - Medications Medications: Current Medications Albuterol/Ipratropium (Duoneb 3 Mg/0.5 Mg (3 Ml) Ud) 3 ml IH [id number] [facility] Last Admin: 07/19/18 08:50 Dose: Not Given Amino Acid Protein (Prostat 15 G Packet) 15 gm GT BID [facility] Last Admin: 07/18/18 17:45 Dose: 15 gm Al Hydrox/Mg Hydrox/Simethicone 30 ml/Diphenhydramine HCl 75 mg/Lidocaine 30 ml 0 ml PO Q2H PRN PRN Reason: Mouth/Throat Pain Digoxin (Digoxin) 0.125 mg PO 1400 [facility] Last Admin: 07/18/18 13:27 Dose: 0.125 mg Diltiazem HCl (Cardizem Cd) 120 mg PO DAILY [facility] Ergocalciferol (Drisdol 50,000 Intl Units Cap) 1 cap PO Q7D [facility] Last Admin: 07/17/18 17:22 Dose: 1 cap Ferrous Gluconate (Fergon) 324 mg PO TID [facility] Last Admin: 07/19/18 09:13 Dose: 324 mg Fluticasone Propionate (Flonase) 1 actuation MARIAM DAILY [facility] Last Admin: 07/18/18 09:58 Dose: 1 spr Furosemide (Lasix) 40 mg IVP DAILY [facility] Last Admin: 07/19/18 09:12 Dose: 40 mg Hydrocortisone Sodium Succinate (Solu-Cortef) 50 mg IVP Q8 [facility] Last Admin: 07/19/18 05:20 Dose: 50 mg Insulin Human Lispro (Humalog Low) 0 units SC ACHS [facility]; Protocol Last Admin: 07/19/18 08:00 Dose: Not Given Levothyroxine Sodium (Synthroid) 25 mcg PO DAILY [facility] Last Admin: 07/19/18 09:13 Dose: 25 mcg Midodrine (Proamatine) 10 mg PO TID [facility] Last Admin: 07/19/18 09:12 Dose: 10 mg Ondansetron HCl (Zofran Inj) 4 mg IVP Q6H PRN PRN Reason: Nausea/Vomiting Last Admin: 07/13/18 09:32 Dose: 4 mg Pantoprazole Sodium (Protonix Ec Tab) 40 mg PO DAILY [facility] Last Admin: 07/19/18 09:13 Dose: 40 mg Silver Sulfadiazine (Silvadene 1%) 0 ea TOP Q12H [facility] Last Admin: 07/19/18 00:00 Dose: Not Given Vitamin B Complex/Vit C/Folic Acid (Nephro-Miguelito) 1 tab PO 0800 [facility] Last Admin: 07/19/18 09:13 Dose: 1 tab Warfarin Sodium (Coumadin) 5 mg PO 1800 [facility] Last Admin: 07/18/18 17:52 Dose: 5 mg Physical Exam - Constitutional Appears: In Acute Distress - Head Exam Head Exam: ATRAUMATIC, NORMOCEPHALIC - Extremities Exam Additional comments: BL lower ext exam: Vasc: DP/PT pulses faintly palpable b/l, skin temp runs warm to cool bl, cap refill < 3 sec to all digits, +3 pitting edema noted to feet and lower legs b/l Neuro: Protective sensation diminished b/l. Derm: no open lesions, no erythema. Nails 1-10 thickened, elongated, dystrophic w/subungual debris MSK: diffuse tenderness to palpation at the toe nails b/l. B/L Pes planus. B/L HAV. - Neurological Exam Neurological exam: Alert, Oriented x3 - Psychiatric Exam Psychiatric exam: Normal Affect, Normal Mood Results - Vital Signs Recent Vital Signs: Last Vital Signs Temp 97.7 F 07/19/18 04:00 Pulse 89 07/19/18 08:00 Resp 19 07/19/18 08:00 BP 115/71 07/19/18 09:12 Pulse Ox 95 07/18/18 16:17 - Labs Result Diagrams: 07/18/18 06:55 07/18/18 06:55 Labs: Laboratory Results - last 24 hr 07/17/18 07/17/18 07/17/18 08:07 11:44 16:58 POC Glucose (mg/dL) 178 H 230 H 177 H 07/17/18 07/18/18 07/18/18 21:52 06:28 07:10 POC Glucose (mg/dL) 181 H 181 H 181 H 07/18/18 07/18/18 07/18/18 11:06 16:21 21:54 POC Glucose (mg/dL) 193 H 216 H 190 H 07/19/18 07:35 POC Glucose (mg/dL) 184 H Assessment & Plan - Assessment and Plan (Free Text) Assessment: 72 y/o F Patient seen and evaluated at the bedside for elongated, dystrophic, discolored and painful toe nails. Plan: Patient seen and evaluated at the bedside in ICU Discussed plan with attending, Dr. Hsieh Nails trimmed using sterile nail nipper w/o incident Patient tolerated the nail trimming well with no complications Podiatry to sign off at this time. please reconsult if needed. Thank you for consulting podiatry service. - Date & Time Date: 07/19/18 Time: 13:01 <Maria Isabel Hsieh - Last Filed: 07/20/18 14:55> Meds - Medications Medications: Current Medications Albuterol/Ipratropium (Duoneb 3 Mg/0.5 Mg (3 Ml) Ud) 3 ml IH [id number] [facility] Last Admin: 07/20/18 13:28 Dose: Not Given Amino Acid Protein (Prostat 15 G Packet) 15 gm GT BID [facility] Last Admin: 07/20/18 11:00 Dose: Not Given Al Hydrox/Mg Hydrox/Simethicone 30 ml/Diphenhydramine HCl 75 mg/Lidocaine 30 ml 0 ml PO Q2H PRN PRN Reason: Mouth/Throat Pain Digoxin (Digoxin) 0.125 mg PO 1400 [facility] Last Admin: 07/19/18 16:56 Dose: 0.125 mg Diltiazem HCl (Cardizem Cd) 120 mg PO DAILY [facility] Last Admin: 07/20/18 09:40 Dose: Not Given Ergocalciferol (Drisdol 50,000 Intl Units Cap) 1 cap PO Q7D [facility] Last Admin: 07/17/18 17:22 Dose: 1 cap Ferrous Gluconate (Fergon) 324 mg PO TID [facility] Last Admin: 07/20/18 09:39 Dose: 324 mg Fluticasone Propionate (Flonase) 1 actuation MARIAM DAILY [facility] Last Admin: 07/20/18 12:54 Dose: Not Given Furosemide (Lasix) 40 mg IVP DAILY [facility] Last Admin: 07/19/18 09:12 Dose: 40 mg Hydrocortisone Sodium Succinate (Solu-Cortef) 50 mg IVP Q8 [facility] Last Admin: 07/20/18 05:31 Dose: 50 mg Insulin Human Lispro (Humalog Low) 0 units SC [facility]; Protocol Last Admin: 07/20/18 12:50 Dose: 2 unit Levothyroxine Sodium (Synthroid) 25 mcg PO DAILY [facility] Last Admin: 07/19/18 09:13 Dose: 25 mcg Midodrine (Proamatine) 10 mg PO TID [facility] Last Admin: 07/20/18 09:39 Dose: 10 mg Ondansetron HCl (Zofran Inj) 4 mg IVP Q6H PRN PRN Reason: Nausea/Vomiting Last Admin: 07/13/18 09:32 Dose: 4 mg Pantoprazole Sodium (Protonix Ec Tab) 40 mg PO DAILY [facility] Last Admin: 07/20/18 09:39 Dose: 40 mg Silver Sulfadiazine (Silvadene 1%) 0 ea TOP Q12H [facility] Last Admin: 07/20/18 01:24 Dose: Not Given Vitamin B Complex/Vit C/Folic Acid (Nephro-Miguelito) 1 tab PO 0800 [facility] Last Admin: 07/20/18 09:39 Dose: 1 tab Warfarin Sodium (Coumadin) 5 mg PO 1800 [facility] Last Admin: 07/19/18 19:12 Dose: 5 mg Results - Vital Signs Recent Vital Signs: Last Vital Signs Temp 98.5 F 07/20/18 06:00 Pulse 112 H 07/20/18 12:00 Resp 25 H 07/20/18 10:00 BP 126/60 07/20/18 12:00 Pulse Ox 95 07/18/18 16:17 - Labs Result Diagrams: 07/18/18 06:55 07/18/18 06:55 Labs: Laboratory Results - last 24 hr 07/19/18 07/19/18 07/19/18 11:16 16:10 22:11 POC Glucose (mg/dL) 195 H 301 H 168 H 07/20/18 07:42 POC Glucose (mg/dL) 185 H Attending/Attestation - Attestation I have personally seen and examined this patient.: No I have fully participated in the care of the patient.: No I have reviewed all pertinent clinical information: No Notes (Text): 07/20/18 14:55 pt had nail debridement by resident
--- NOTE | 2018-07-19 14:40 | CP.PCM.PN ---
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 morbid obesity left kidney cyst Plan No acute need for renal replacement therapy at this time. Maintain hemodynamics stable. Avoid hypotension. Patient not on ACEI/ARB due to recent CRIS and low BP. but on a fib rate control meds. Monitor Input/Output, daily weights and renal function with basic metabolic panel started iron 324 mg TID and MVI daily and weekly Vit D supplement lytes as needed pancreatic work up as per GI Dose meds/antibiotics for reduced GFR. Avoid fleets enema/magnesium based laxatives. Avoid nephrotoxins/NSAIDs/ iodinated contrast (unless needed emergently) Glycemic control Further work up/management as per primary team pt stable from renal perspective Thanks for allowing me to participate in care of your patient. Will follow patient with you. Please call if any Qs. had d/w team. 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 s een for CRIS with cr 0.6 at baseline and 1.3 at d/c. pt came with chest pain and SOB. Denies OTC/herbal meds or NSAIDs No recent iodinated contrast exposure. Noted obvious episodes of low sBP (80-90s). reports chronic legs swelling. not aware about kidney disease in past. ROS: Cardiovascular: No chest pain. Pulmonary: improved chronic shortness of breath Gastrointestinal: denies abdominal pain No nausea. No vomiting. Genitourinary: No pain while urinating. Denies blood in urine. All other negative except as mentioned in HPI. has chronic legs swelling Physical Examination: General Appearance: Comfortable, in no acute respiratory distress, co-operative. morbidly obese ++ Vitals reviewed and noted as below Head; Atraumatic, normocephalic ENT: no ulcers no thrush. Tongue is midline. Oropharynx: no rash or ulcers. EYES: Pupils are equal, round and reactive to light accommodation. Eye muscles and extraocular movement intact. Sclera is anicteric. Neck; supple no lymphadenopathy, no thyromegaly or bruit Lungs: normal respiratory rate/effort. Breath sounds bilateral equal and clear Heart: Normal rate. s1s2 normal. No rub or gallop. Extremities: 1-2+ edema. No varicose veins Neurological: Patient is alert, awake and oriented to person, place and time. No focal deficit. Strength bilateral appropriate and equal Skin: Warm and dry. Normal turgor. No rash. Palpitation: Normal elasticity for age Abdomen: Abdomen is soft. Bowel sounds +. There is no abdominal tenderness, no guarding/rigidity no organomegaly Psych: normal insight and normal affect/mood MSK: no joint tenderness or swelling. Digits and nails normal, no deformity : kidney or bladder not palpable Labs/imaging reviewed. Past medical history, past surgical history, family history, social history, allergy reviewed and noted as below Family hx: no hx of CKD. Rest non-contributory Echo; normal lvef, severe MR/TR/MD renal imaging: left kidney cyst TSAT/Ferritin 12/356, SPEP/DILSHAD neg and normal FLC assay Vit D <12.8 PTH 286 urine alb/cr 126 mg/g Objective - Vital Signs/Intake and Output Vital Signs (last 24 hours): Temp Pulse Resp BP Pulse Ox 97.7 F 87 18 108/71 95 07/19/18 04:00 07/19/18 12:00 07/19/18 12:00 07/19/18 12:00 07/18/18 16:17 Intake and Output: 07/19/18 07/19/18 06:59 18:59 Intake Total 450 Output Total 400 Balance 50 - Medications Medications: Current Medications Albuterol/Ipratropium (Duoneb 3 Mg/0.5 Mg (3 Ml) Ud) 3 ml IH [id number] [facility] Last Admin: 07/19/18 13:28 Dose: Not Given Amino Acid Protein (Prostat 15 G Packet) 15 gm GT BID [facility] Last Admin: 07/18/18 17:45 Dose: 15 gm Al Hydrox/Mg Hydrox/Simethicone 30 ml/Diphenhydramine HCl 75 mg/Lidocaine 30 ml 0 ml PO Q2H PRN PRN Reason: Mouth/Throat Pain Digoxin (Digoxin) 0.125 mg PO 1400 [facility] Last Admin: 07/18/18 13:27 Dose: 0.125 mg Diltiazem HCl (Cardizem Cd) 120 mg PO DAILY [facility] Ergocalciferol (Drisdol 50,000 Intl Units Cap) 1 cap PO Q7D [facility] Last Admin: 07/17/18 17:22 Dose: 1 cap Ferrous Gluconate (Fergon) 324 mg PO TID [facility] Last Admin: 07/19/18 09:13 Dose: 324 mg Fluticasone Propionate (Flonase) 1 actuation MARIAM DAILY [facility] Last Admin: 07/18/18 09:58 Dose: 1 spr Furosemide (Lasix) 40 mg IVP DAILY [facility] Last Admin: 07/19/18 09:12 Dose: 40 mg Hydrocortisone Sodium Succinate (Solu-Cortef) 50 mg IVP Q8 [facility] Last Admin: 07/19/18 05:20 Dose: 50 mg Insulin Human Lispro (Humalog Low) 0 units SC ACHS [facility]; Protocol Last Admin: 07/19/18 08:00 Dose: Not Given Levothyroxine Sodium (Synthroid) 25 mcg PO DAILY [facility] Last Admin: 07/19/18 09:13 Dose: 25 mcg Midodrine (Proamatine) 10 mg PO TID [facility] Last Admin: 07/19/18 09:12 Dose: 10 mg Ondansetron HCl (Zofran Inj) 4 mg IVP Q6H PRN PRN Reason: Nausea/Vomiting Last Admin: 07/13/18 09:32 Dose: 4 mg Pantoprazole Sodium (Protonix Ec Tab) 40 mg PO DAILY [facility] Last Admin: 07/19/18 09:13 Dose: 40 mg Silver Sulfadiazine (Silvadene 1%) 0 ea TOP Q12H [facility] Last Admin: 07/19/18 00:00 Dose: Not Given Vitamin B Complex/Vit C/Folic Acid (Nephro-Miguelito) 1 tab PO 0800 [facility] Last Admin: 07/19/18 09:13 Dose: 1 tab Warfarin Sodium (Coumadin) 5 mg PO 1800 [facility] Last Admin: 07/18/18 17:52 Dose: 5 mg - Labs Labs: 07/18/18 06:55 07/18/18 06:55 PT 16.3 SECONDS (9.4-12.5) H 07/18/18 06:55 INR 1.41 07/18/18 06:55
[2018-07-19] MEDS: diltiaZEM 120 mg/24 Hours CD Cap PO SCH (16:55)
[2018-07-19] MEDS: Digoxin 125 mcg (0.125 mg) Tab PO SCH (16:56)
[2018-07-19 17:00] VITALS: PULSE 67
[2018-07-19] MEDS: Fluticasone Nasal 50 mcg/Spray NAS SCH (19:14)
[2018-07-19] MEDS: Silver Sulfadiazine 1% Cream (400 gm) TOP SCH ×2 (19:17)
--- NOTE | 2018-07-19 22:53 | PN ---
DATE: 07/19/2018 SUBJECTIVE: The patient is in bed in no acute distress, was seen earlier this morning. The patient's was present at the bedside. PHYSICAL EXAMINATION: GENERAL: The patient is in bed. No acute distress. VITAL SIGNS: Temperature of 98, blood pressure is 100/50, respiratory rate of 18, and heart rate of 87. HEENT: Unremarkable. NECK: Supple. LUNGS: Have decreased breath sounds. HEART: Normal S1, S2. ABDOMEN: Soft, nontender. LABORATORY EXAMINATION: Reveals a white count of 11,500, hemoglobin of 8, BUN of 41, and creatinine of 2.1. Urinalysis is noted. Immunology is reviewed. Microbiology, gram-negative gopal, less than 10,000. Review of orders. ASSESSMENT AND PLAN: A 73-year-old female who was seen earlier today with past medical history of super morbid obesity with BMI of 70 with congestive heart failure, chronic obstructive lung disease, diabetes, atrial fibrillation, on anticoagulation, peripheral vascular disease, lymphedema, presents with severe sepsis secondary to healthcare-associated pneumonia in the setting of acute kidney injury, has completed a course of antibiotics and Zyvox and meropenem. Currently, off of antibiotics, he is afebrile and the patient, however, is at risk for developing nosocomial infection. Santy Fernandez MD
[2018-07-20] MEDS: Albuterol-Ipratrop 3 mg / 0.5 (3 ml) UD IH SCH ×3 (01:12→13:28)
[2018-07-20] MEDS: Silver Sulfadiazine 1% Cream (400 gm) TOP SCH ×2 (01:24→16:04)
[2018-07-20 07:03] VITALS: TEMP 98.5
[2018-07-20] MEDS: Insulin Lispro (humaLOG) LOW Coverage SC SCH ×2 (08:00→12:50)
--- NOTE | 2018-07-20 09:10 | CP.PCM.PN ---
<Marcio Moon - Last Filed: 07/20/18 14:25> Subjective - Date & Time of Evaluation Date of Evaluation: 07/20/18 Time of Evaluation: 09:07 - Subjective Subjective: Infectious disease progress note for Dr. Trujillo/Dr. Fernandez service - Gay Moon PGY3 Patient seen and examined at bedside this morning. No acute overnight events or new complaints reported. Completed 7 day course of meropenem/zyvox for bilateral lower lobe HCAP. Denies cp, palpitations, SOB. Objective - Vital Signs/Intake and Output Vital Signs (last 24 hours): Temp Pulse Resp BP Pulse Ox 98.5 F 53 L 14 78/34 L 95 07/20/18 06:00 07/20/18 04:09 07/19/18 18:00 07/19/18 18:00 07/18/18 16:17 Intake and Output: 07/20/18 07/20/18 06:59 18:59 Intake Total 500 Output Total 500 Balance 0 - Medications Medications: Current Medications Albuterol/Ipratropium (Duoneb 3 Mg/0.5 Mg (3 Ml) Ud) 3 ml IH [id number] [facility] Last Admin: 07/20/18 07:34 Dose: Not Given Amino Acid Protein (Prostat 15 G Packet) 15 gm GT BID [facility] Last Admin: 07/19/18 17:00 Dose: 15 gm Al Hydrox/Mg Hydrox/Simethicone 30 ml/Diphenhydramine HCl 75 mg/Lidocaine 30 ml 0 ml PO Q2H PRN PRN Reason: Mouth/Throat Pain Digoxin (Digoxin) 0.125 mg PO 1400 [facility] Last Admin: 07/19/18 16:56 Dose: 0.125 mg Diltiazem HCl (Cardizem Cd) 120 mg PO DAILY [facility] Last Admin: 07/19/18 16:55 Dose: 120 mg Ergocalciferol (Drisdol 50,000 Intl Units Cap) 1 cap PO Q7D [facility] Last Admin: 07/17/18 17:22 Dose: 1 cap Ferrous Gluconate (Fergon) 324 mg PO TID [facility] Last Admin: 07/19/18 19:13 Dose: Not Given Fluticasone Propionate (Flonase) 1 actuation MARIAM DAILY [facility] Last Admin: 07/19/18 19:14 Dose: Not Given Furosemide (Lasix) 40 mg IVP DAILY [facility] Last Admin: 07/19/18 09:12 Dose: 40 mg Hydrocortisone Sodium Succinate (Solu-Cortef) 50 mg IVP Q8 [facility] Last Admin: 07/20/18 05:31 Dose: 50 mg Insulin Human Lispro (Humalog Low) 0 units SC ACHS [facility]; Protocol Last Admin: 07/19/18 22:19 Dose: 1 unit Levothyroxine Sodium (Synthroid) 25 mcg PO DAILY [facility] Last Admin: 07/19/18 09:13 Dose: 25 mcg Midodrine (Proamatine) 10 mg PO TID [facility] Last Admin: 07/19/18 19:16 Dose: 10 mg Ondansetron HCl (Zofran Inj) 4 mg IVP Q6H PRN PRN Reason: Nausea/Vomiting Last Admin: 07/13/18 09:32 Dose: 4 mg Pantoprazole Sodium (Protonix Ec Tab) 40 mg PO DAILY [facility] Last Admin: 07/19/18 09:13 Dose: 40 mg Silver Sulfadiazine (Silvadene 1%) 0 ea TOP Q12H [facility] Last Admin: 07/20/18 01:24 Dose: Not Given Vitamin B Complex/Vit C/Folic Acid (Nephro-Miguelito) 1 tab PO 0800 [facility] Last Admin: 07/19/18 09:13 Dose: 1 tab Warfarin Sodium (Coumadin) 5 mg PO 1800 [facility] Last Admin: 07/19/18 19:12 Dose: 5 mg - Labs Labs: 07/18/18 06:55 07/18/18 06:55 PT 16.3 SECONDS (9.4-12.5) H 07/18/18 06:55 INR 1.41 07/18/18 06:55 - Constitutional Appears: No Acute Distress, Chronically Ill - Head Exam Head Exam: ATRAUMATIC, NORMAL INSPECTION, NORMOCEPHALIC - Eye Exam Eye Exam: EOMI, PERRL - Respiratory Exam Respiratory Exam: Decreased Breath Sounds. absent: Rales, Rhonchi, Wheezes - Cardiovascular Exam Cardiovascular Exam: +S1, +S2. absent: Gallop, Rubs - GI/Abdominal Exam GI & Abdominal Exam: Soft. absent: Distended, Firm, Guarding, Rigid, Tenderness, Rebound - Neurological Exam Neurological Exam: Alert, Awake, Oriented x3 - Psychiatric Exam Psychiatric exam: Normal Affect, Normal Mood Assessment and Plan - Assessment and Plan (Free Text) Plan: 73yo female with history of morbid obesity, CHF, COPD, DM, afib on anticoagulation, PVD, lymphedema presents with severe sepsis secondary to healthcare-associated pneumonia in the setting of acute kidney injury 1. Severe sepsis secondary to bilateral lower lobe HCAP 2. Hx of ESBL ecoli and pseudomonas of the lower extremities 3. Acute on chronic kidney injury 4. CHF, chronic 5. COPD, chronic 6. DM type 2 7. morbid obesity -Completed 7 day course of meropenem and zyvox; abx discontinued; pt will be monitored clinically -At risk of developing nosocomial infections -rapid flu negative -MRSA screen negative -blood cultures negative; gram - gopal in the urine however only 10k CFU -Procalcitonin negative -CXR revealed borderline infiltrate in right suprahilar space -EKG reviewed Patient seen and case discussed/reviewed with attending, Dr. Trujillo <Brandan Trujillo - Last Filed: 07/20/18 16:26> Objective - Vital Signs/Intake and Output Vital Signs (last 24 hours): Temp Pulse Resp BP Pulse Ox 98.5 F 74 25 H 131/73 95 07/20/18 06:00 07/20/18 15:59 07/20/18 10:00 07/20/18 15:59 07/18/18 16:17 Intake and Output: 07/20/18 07/20/18 06:59 18:59 Intake Total 500 Output Total 500 Balance 0 - Labs Labs: 07/18/18 06:55 07/18/18 06:55 PT 16.3 SECONDS (9.4-12.5) H 07/18/18 06:55 INR 1.41 07/18/18 06:55 Assessment and Plan - Assessment and Plan (Free Text) Plan: Infectious diseases Attending Physician Attestation Patient seen and examined, discussed with medical records receptionist. I have reviewed the patient's history of present illness, past medical, social, personal and family histories, pertinent physical exam findings, course so far in this hospital admission, pertinent laboratory and imaging results. I agree with the above findings, assessment and plan. In addition, patient has completed course of Zyvox and Merrem for bilateral lower lobe HCAP with sepsis. Will continue to monitor off antibiotics since she is at risk for hospital-acquired infections while in the hospital.
[2018-07-20] MEDS: Pantoprazole 40 mg EC Tab PO SCH (09:39)
[2018-07-20] MEDS: Multivitamin Vitamin B Complex (Nephro-Vite) Tab PO SCH (09:39)
[2018-07-20] MEDS: diltiaZEM 120 mg/24 Hours CD Cap PO SCH ×2 (09:40→15:59)
[2018-07-20] MEDS: Levothyroxine 25 MCG TAB PO SCH (10:00)
[2018-07-20] MEDS: Prostat 15 g packet GT SCH (11:00)
[2018-07-20 11:45] VITALS: RESP 25
[2018-07-20] MEDS: Fluticasone Nasal 50 mcg/Spray NAS SCH (12:54)
--- NOTE | 2018-07-20 13:49 | CP.PCM.PN ---
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 morbid obesity left kidney cyst Plan No acute need for renal replacement therapy at this time. Maintain hemodynamics stable. Avoid hypotension. Patient not on ACEI/ARB due to recent CRIS and low BP. but on a fib rate control meds. Monitor Input/Output, daily weights and renal function with basic metabolic panel started iron 324 mg TID and MVI daily and weekly Vit D supplement lytes as needed pancreatic work up as per GI Dose meds/antibiotics for reduced GFR. Avoid fleets enema/magnesium based laxatives. Avoid nephrotoxins/NSAIDs/ iodinated contrast (unless needed emergently) Glycemic control Further work up/management as per primary team pt stable from renal perspective Thanks for allowing me to participate in care of your patient. Will follow patient with you. Please call if any Qs. had d/w team. 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 s een for CRIS with cr 0.6 at baseline and 1.3 at d/c. pt came with chest pain and SOB. Denies OTC/herbal meds or NSAIDs No recent iodinated contrast exposure. Noted obvious episodes of low sBP (80-90s). reports chronic legs swelling. not aware about kidney disease in past. ROS: Cardiovascular: No chest pain. Pulmonary: improved chronic shortness of breath Gastrointestinal: denies abdominal pain No nausea. No vomiting. Genitourinary: No pain while urinating. Denies blood in urine. All other negative except as mentioned in HPI. has chronic legs swelling Physical Examination: General Appearance: Comfortable, in no acute respiratory distress, co-operative. morbidly obese ++ Vitals reviewed and noted as below Head; Atraumatic, normocephalic ENT: no ulcers no thrush. Tongue is midline. Oropharynx: no rash or ulcers. EYES: Pupils are equal, round and reactive to light accommodation. Eye muscles and extraocular movement intact. Sclera is anicteric. Neck; supple no lymphadenopathy, no thyromegaly or bruit Lungs: normal respiratory rate/effort. Breath sounds bilateral equal and clear Heart: Normal rate. s1s2 normal. No rub or gallop. Extremities: 1-2+ edema. No varicose veins Neurological: Patient is alert, awake and oriented to person, place and time. No focal deficit. Strength bilateral appropriate and equal Skin: Warm and dry. Normal turgor. No rash. Palpitation: Normal elasticity for age Abdomen: Abdomen is soft. Bowel sounds +. There is no abdominal tenderness, no guarding/rigidity no organomegaly Psych: normal insight and normal affect/mood MSK: no joint tenderness or swelling. Digits and nails normal, no deformity : kidney or bladder not palpable Labs/imaging reviewed. Past medical history, past surgical history, family history, social history, allergy reviewed and noted as below Family hx: no hx of CKD. Rest non-contributory Echo; normal lvef, severe MR/TR/MI renal imaging: left kidney cyst TSAT/Ferritin 12/356, SPEP/DILSHAD neg and normal FLC assay Vit D <12.8 PTH 286 urine alb/cr 126 mg/g Objective - Vital Signs/Intake and Output Vital Signs (last 24 hours): Temp Pulse Resp BP Pulse Ox 98.5 F 112 H 25 H 126/60 95 07/20/18 06:00 07/20/18 12:00 07/20/18 10:00 07/20/18 12:00 07/18/18 16:17 Intake and Output: 07/20/18 07/20/18 06:59 18:59 Intake Total 500 Output Total 500 Balance 0 - Medications Medications: Current Medications Albuterol/Ipratropium (Duoneb 3 Mg/0.5 Mg (3 Ml) Ud) 3 ml IH [id number] [facility] Last Admin: 07/20/18 13:28 Dose: Not Given Amino Acid Protein (Prostat 15 G Packet) 15 gm GT BID RONI Last Admin: 07/20/18 11:00 Dose: Not Given Al Hydrox/Mg Hydrox/Simethicone 30 ml/Diphenhydramine HCl 75 mg/Lidocaine 30 ml 0 ml PO Q2H PRN PRN Reason: Mouth/Throat Pain Digoxin (Digoxin) 0.125 mg PO 1400 [facility] Last Admin: 07/19/18 16:56 Dose: 0.125 mg Diltiazem HCl (Cardizem Cd) 120 mg PO DAILY [facility] Last Admin: 07/20/18 09:40 Dose: Not Given Ergocalciferol (Drisdol 50,000 Intl Units Cap) 1 cap PO Q7D [facility] Last Admin: 07/17/18 17:22 Dose: 1 cap Ferrous Gluconate (Fergon) 324 mg PO TID [facility] Last Admin: 07/20/18 09:39 Dose: 324 mg Fluticasone Propionate (Flonase) 1 actuation MARIAM DAILY [facility] Last Admin: 07/20/18 12:54 Dose: Not Given Furosemide (Lasix) 40 mg IVP DAILY [facility] Last Admin: 07/19/18 09:12 Dose: 40 mg Hydrocortisone Sodium Succinate (Solu-Cortef) 50 mg IVP Q8 [facility] Last Admin: 07/20/18 05:31 Dose: 50 mg Insulin Human Lispro (Humalog Low) 0 units SC ACHS [facility]; Protocol Last Admin: 07/20/18 12:50 Dose: 2 unit Levothyroxine Sodium (Synthroid) 25 mcg PO DAILY [facility] Last Admin: 07/19/18 09:13 Dose: 25 mcg Midodrine (Proamatine) 10 mg PO TID [facility] Last Admin: 07/20/18 09:39 Dose: 10 mg Ondansetron HCl (Zofran Inj) 4 mg IVP Q6H PRN PRN Reason: Nausea/Vomiting Last Admin: 07/13/18 09:32 Dose: 4 mg Pantoprazole Sodium (Protonix Ec Tab) 40 mg PO DAILY [facility] Last Admin: 07/20/18 09:39 Dose: 40 mg Silver Sulfadiazine (Silvadene 1%) 0 ea TOP Q12H [facility] Last Admin: 07/20/18 01:24 Dose: Not Given Vitamin B Complex/Vit C/Folic Acid (Nephro-Miguelito) 1 tab PO 0800 [facility] Last Admin: 07/20/18 09:39 Dose: 1 tab Warfarin Sodium (Coumadin) 5 mg PO 1800 RONI Last Admin: 07/19/18 19:12 Dose: 5 mg - Labs Labs: 07/18/18 06:55 07/18/18 06:55 PT 16.3 SECONDS (9.4-12.5) H 07/18/18 06:55 INR 1.41 07/18/18 06:55
[2018-07-20] MEDS: Digoxin 125 mcg (0.125 mg) Tab PO SCH (14:30)
[2018-07-20 16:06] VITALS: BP 131/73; PULSE 74
--- NOTE | 2018-07-20 21:07 | DS ---
HISTORY OF PRESENT ILLNESS: There was a problem with transportation getting her back home w/ real estate officer in [facility] to do this at the same time. She will be going home on a regular medications, Cardizem, Coumadin, digoxin, Drisdol, DuoNebs, iron, Flonase, Lasix, Nephro-Miguelito, ProAmatine, Pro-Stat, Protonix, Silvadene cream. She will be on prednisone, not Solu-Cortef anymore, Synthroid and Zofran. PHYSICAL EXAMINATION: VITAL SIGNS: She has a 98.5 temperature, 61 pulse, 90/56 blood pressure and 13 respiratory rate. HEENT: Head is atraumatic, normocephalic. HEART: Regular rate. LUNGS: Decreased breath sounds, but clear. ABDOMEN: Soft. Morbidly, morbidly, morbidly obese. EXTREMITIES: A +4/4 pitting edema. She is down to 374 pounds, she was 700 three months ago. She was here with a rapid AFib, also pancreatic cancer and she will be seen on a house call on Monday. She had 168 blood sugar and hopefully get the arrangements made for discharge when she needs to go home. Alan Mann DO MTDD
== END 2018-07-20 15:00 | disposition home or self-care (01) | DRG 871 ==
LOC: ED 04:34 → ERH 04:38 → ICU 21:45
PROVIDERS: ADMIT Family Medicine; ATTEND Family Medicine
PROC: 3E033XZ Introduction of Vasopressor into Peripheral Vein, Percutaneous Approach (ICD-10-PCS; principal; 2018-07-10)
PROC: 02HV33Z Insertion of Infusion Device into Superior Vena Cava, Percutaneous Approach (ICD-10-PCS; 2018-07-10)
PROC: B54MZZA Ultrasonography of Right Upper Extremity Veins, Guidance (ICD-10-PCS; 2018-07-10)
PROC: 0HBRXZZ Excision of Toe Nail, External Approach (ICD-10-PCS; 2018-07-19)
PROC: 0HBRXZZ Excision of Toe Nail, External Approach (ICD-10-PCS; 2018-07-19)
PROC: 0HBRXZZ Excision of Toe Nail, External Approach (ICD-10-PCS; 2018-07-19)
PROC: 0HBRXZZ Excision of Toe Nail, External Approach (ICD-10-PCS; 2018-07-19)
PROC: 0HBRXZZ Excision of Toe Nail, External Approach (ICD-10-PCS; 2018-07-19)
PROC: 0HBRXZZ Excision of Toe Nail, External Approach (ICD-10-PCS; 2018-07-19)
PROC: 0HBRXZZ Excision of Toe Nail, External Approach (ICD-10-PCS; 2018-07-19)
PROC: 0HBRXZZ Excision of Toe Nail, External Approach (ICD-10-PCS; 2018-07-19)
PROC: 0HBRXZZ Excision of Toe Nail, External Approach (ICD-10-PCS; 2018-07-19)
PROC: 0HBRXZZ Excision of Toe Nail, External Approach (ICD-10-PCS; 2018-07-19)
DX: A41.9 Sepsis, unspecified organism (principal); R65.21 Severe sepsis with septic shock; J18.9 Pneumonia, unspecified organism; N17.9 Acute kidney failure, unspecified; N25.81 Secondary hyperparathyroidism of renal origin; J44.0 Chronic obstructive pulmonary disease with (acute) lower respiratory infection; L03.119 Cellulitis of unspecified part of limb; L97.129 Non-pressure chronic ulcer of left thigh with unspecified severity; L97.119 Non-pressure chronic ulcer of right thigh with unspecified severity; D68.8 Other specified coagulation defects; Z68.45 Body mass index [BMI] 70 or greater, adult; T36.95XA Adverse effect of unspecified systemic antibiotic, initial encounter; T45.515A Adverse effect of anticoagulants, initial encounter; I50.810 Right heart failure, unspecified; E66.01 Morbid (severe) obesity due to excess calories; I48.2 Chronic atrial fibrillation; E11.51 Type 2 diabetes mellitus with diabetic peripheral angiopathy without gangrene; I27.29 Other secondary pulmonary hypertension; I27.81 Cor pulmonale (chronic); I89.0 Lymphedema, not elsewhere classified; N28.1 Cyst of kidney, acquired; D50.9 Iron deficiency anemia, unspecified; E55.9 Vitamin D deficiency, unspecified; I87.2 Venous insufficiency (chronic) (peripheral); E11.622 Type 2 diabetes mellitus with other skin ulcer; E03.9 Hypothyroidism, unspecified; E11.22 Type 2 diabetes mellitus with diabetic chronic kidney disease; I25.10 Atherosclerotic heart disease of native coronary artery without angina pectoris; D49.0 Neoplasm of unspecified behavior of digestive system; N18.9 Chronic kidney disease, unspecified; L60.3 Nail dystrophy; K21.9 Gastro-esophageal reflux disease without esophagitis; Z79.4 Long term (current) use of insulin; Z79.01 Long term (current) use of anticoagulants; Z74.01 Bed confinement status; Z79.2 Long term (current) use of antibiotics

== ENCOUNTER 2018-09-09 16:35 | Inpatient (IN) | payer MEDICARE ==
[2018-09-09 16:35] VITALS: PULSE 67
[2018-09-09] MEDS ORDERED: Albuterol-Ipratrop 3 mg / 0.5 (3 ml) UD IH STA ×2 (17:12→17:15)
--- NOTE | 2018-09-09 17:22 | ED PDOC ---
Arrival/HPI - General Chief Complaint: Respiratory Distress Time Seen by Provider: 09/09/18 16:58 Historian: Patient - History of Present Illness Narrative History of Present Illness (Text): 09/09/18 17:19 A 73 year old female, whose past medical history includes diabetes, COPD, leg edema, and CHF, presents to the emergency department complaining of productive cough with yellow sputum and some shortness of breath for the past week. Patient reports seeing PMD and was prescribed Levofloxacin 500 mg. She is currently on day 4 of taking the medication and took only 1/2 today instead 1 whole tablet. Patient has had no relief of symptoms since starting the medication. As a result she called Dr. Song, letting her know she is going to the ER to be evaluated. Patient denies any chest pain, abdominal pain nausea, vomiting, diarrhea, fever, or any other complaints at this time. PMD: Dr. Mann Past Medical History - Provider Review Nursing Documentation Reviewed: Yes - Infectious Disease Hx of Infectious Diseases: None - Tetanus Immunization Tetanus Immunization: Unknown - Cardiac Hx Cardiac Disorders: Yes (palpitations, afib) Hx Angina: Yes Hx Cardiac Arrhythmia: Yes Hx Congestive Heart Failure: Yes Hx Hypotension: Yes Hx Pacemaker: No Hx Peripheral Edema: Yes (ble +4 pitting) Hx Peripheral Vascular Disease: Yes (lymphadema) - Pulmonary Hx Respiratory Disorders: Yes (using 02 at home/ nebulizer machine) Hx Asthma: Yes Hx Chronic Obstructive Pulmonary Disease (COPD): Yes Hx Emphysema: Yes Hx Pneumonia: Yes - Neurological Hx Neurological Disorder: No - HEENT Hx HEENT Disorder: Yes (glasses) Other/Comment: thrush to oral cavity and tongue - Renal Hx Renal Disorder: No - Endocrine/Metabolic Hx Endocrine Disorders: Yes Hx Diabetes Mellitus Type 2: Yes - Hematological/Oncological Hx Blood Disorders: Yes (septicemia) Hx Anemia: Yes - Integumentary Hx Dermatological Disorder: Yes (chronic venous stasis dermatitis ble) Other/Comment: pt is obese, right outer thigh skin openings healed, redness, hard brown dry skin, dimpling to left thigh, pt c/o that she, sometimes has drainage from left thigh. both lower legs and feet dry skin. redness and discoloration to right abd fold healed, ble +4 pitting edema & brown discolored dry skin, dry skin and toenails both feet, multiple healing unmeasurable wounds to b/l buttocks, irregular wound left buttock red, multiple wounds in various stages of healing to entire abd, multiple areas of red foul smelling and draining light green purulent drainage wounds to upper and lower abd, discolored brown skin to abd, healing wounds to b/l thighs - Musculoskeletal/Rheumatological Hx Falls: No - Gastrointestinal Hx Gastrointestinal Disorders: Yes (benign mass removed from abd 30 yrs ago) Other/Comment: morbid obesity, blood in stool - Genitourinary/Gynecological Hx Genitourinary Disorders: Yes Hx Hematuria: Yes Hx Incontinence: Yes (urine and stool) Hx Urinary Tract Infection: Yes - Psychiatric Hx Psychophysiologic Disorder: No Hx Substance Use: No - Surgical History Hx Cardiac Catheterization: Yes Hx Mastectomy: No Other/Comment: benign mass removed from abd over 30 yrs ago - Anesthesia Hx Anesthesia: Yes - Suicidal Assessment Feels Threatened In Home Enviroment: No Family/Social History - Physician Review Nursing Documentation Reviewed: Yes Family/Social History: No Known Family HX Smoking Status: Never Smoked Hx Alcohol Use: No Hx Substance Use: No Hx Substance Use Treatment: No Allergies/Home Meds Allergies/Adverse Reactions: Allergies No Known Allergies Allergy (Verified 07/10/18 04:46) Home Medications: Home Meds Medication Instructions Recorded Confirmed Warfarin [Coumadin] 3 mg PO DAILY 04/10/18 09/09/18 Albuterol/Ipratropium [Duoneb 3 3 ml IH Q6 04/25/18 09/09/18 MG/3 Ml-0.5 MG/3 Ml 3 Ml] Clotrimazole/Betamethasone 180 gm TOP BID 04/25/18 09/09/18 [Lotrisone] Fluticasone Nasal [Flonase] 1 spray MARIAM DAILY 04/25/18 09/09/18 Furosemide [Lasix] 40 mg PO DAILY 04/25/18 09/09/18 Levothyroxine [Synthroid] 25 mcg PO DAILY 04/25/18 09/09/18 MetFORMIN [glucoPHAGE] 500 mg PO DAILY 04/25/18 09/09/18 Silver Sulfadiazine [Silvadene] 1,600 gm TOP BID 04/25/18 09/09/18 Budesonide [Pulmicort Flexhaler] 1 puff IH QID 06/01/18 09/09/18 Mupirocin 2% Cream [Bactroban 30 gm EXT BID 06/01/18 09/09/18 Cream] Pantoprazole Sodium [Protonix] 40 mg PO DAILY 06/01/18 09/09/18 Cyproheptadine [Periactin] 1 tab PO DAILY 07/10/18 09/09/18 Midodrine HCl 10 mg PO TID 07/10/18 09/09/18 Digoxin [Digitek] 125 mcg PO QOTHERDAY 09/09/18 09/09/18 Diltiazem HCl [Cartia Xt] 120 mg PO DAILY 09/09/18 09/09/18 Levofloxacin [Levaquin] 750 mg PO DAILY 09/09/18 09/09/18 Promethazine DM [Phenergan DM 5 ml PO TID 09/09/18 09/09/18 Syrup] Review of Systems - Physician Review All systems were reviewed & negative as marked: Yes - Review of Systems Constitutional: absent: Fevers Respiratory: SOB, Cough (productive), Sputum (yellow) Cardiovascular: absent: Chest Pain Gastrointestinal: absent: Abdominal Pain, Diarrhea, Nausea, Vomiting Physical Exam Vital Signs Reviewed: Yes Vital Signs Temp Resp BP 09/09/18 17:12 20 09/09/18 17:02 97.8 F 20 109/49 L Temperature: Afebrile Blood Pressure: Normal Respiratory Rate: Normal Appearance: Positive for: Well-Appearing, Non-Toxic, Comfortable, Other (morbidly obese) Pain Distress: None Mental Status: Positive for: Alert and Oriented X 3 - Systems Exam Head: Present: Atraumatic, Normocephalic Pupils: Present: PERRL Extroacular Muscles: Present: EOMI Conjunctiva: Present: Normal Mouth: Present: Moist Mucous Membranes Neck: Present: Normal Range of Motion Respiratory/Chest: Present: Wheezes (mild expiratory wheezing bilaterally.) Cardiovascular: Present: Regular Rate and Rhythm, Normal S1, S2. No: Murmurs Abdomen: No: Tenderness, Distention, Peritoneal Signs Back: Present: Normal Inspection Upper Extremity: Present: Normal Inspection. No: Cyanosis, Edema Lower Extremity: Present: Edema (bilateral pitting edema) Neurological: Present: GCS=15, CN II-XII Intact, Speech Normal Skin: Present: Warm, Dry, Normal Color. No: Rashes Psychiatric: Present: Alert, Oriented x 3, Normal Insight, Normal Concentration Medical Decision Making ED Course and Treatment: 09/09/18 17:21 Impression: 73 year old female with productive cough with yellow sputum and some shortness of breath. Differential Diagnosis included but are not limited to: shortness of breath and cough rule out Pneumonia. Plan: -- Labs -- EKG -- Chest X-ray -- Dounebs -- Decadron -- Venous Blood Gas -- Reassess and disposition Progress Notes: 09/09/2018 18:02 Chest X-ray IMPRESSION: Mild pulmonary vascular congestion. No evidence of focal consolidation in the lungs. Dictator: Shelby Cleveland MD - RAD Interpretation Radiology Orders: 09/09/18 17:12 CHEST PORTABLE [RAD] Stat - Medication Orders Current Medication Orders: Albuterol/Ipratropium (Duoneb 3 Mg/0.5 Mg (3 Ml) Ud) 3 ml IH STAT STA Stop: 09/09/18 17:16 Discontinued Medications Albuterol/Ipratropium (Duoneb 3 Mg/0.5 Mg (3 Ml) Ud) 3 ml IH STAT STA Stop: 09/09/18 17:13 Dexamethasone (Decadron Inj) 10 mg IM STAT STA Stop: 09/09/18 17:13 - Scribe Statement The provider has reviewed the documentation as recorded by the Ashly Barraza Provider Scribe Attestation: All medical record entries made by the Scribe were at my direction and personally dictated by me. I have reviewed the chart and agree that the record accurately reflects my personal performance of the history, physical exam, medical decision making, and the department course for this patient. I have also personally directed, reviewed, and agree with the discharge instructions and disposition. Disposition/Present on Arrival - Present on Arrival Any Indicators Present on Arrival: No History of DVT/PE: No History of Uncontrolled Diabetes: No Urinary Catheter: No History of Decub. Ulcer: Yes (bilateral thighs) History Surgical Site Infection Following: None - Disposition Have Diagnosis and Disposition been Completed?: Yes Diagnosis: COPD exacerbation Disposition: HOSPITALIZED Disposition Time: 19:13 Condition: FAIR
--- NOTE | 2018-09-09 18:06 | RAD ---
Date of service: 09/09/2018 HISTORY: r/o infiltrate COMPARISON: Comparison is made with 07/10/2018 FINDINGS: LUNGS: Mild pulmonary vascular congestion. PLEURA: No significant pleural effusion identified, no pneumothorax apparent. CARDIOVASCULAR: Small foci of aortic atherosclerotic calcification present. The cardiac silhouette is upper normal limit in size. No pulmonary vascular congestion. OSSEOUS STRUCTURES: No significant abnormalities. VISUALIZED UPPER ABDOMEN: Normal. OTHER FINDINGS: None. IMPRESSION: Mild pulmonary vascular congestion. No evidence of focal consolidation in the lungs.
[2018-09-09] MEDS ORDERED: cefTRIAXone 1 gm 1 GM/100 ML BAG IVPB STA (18:26)
[2018-09-09 18:58] LABS: VENOUS BLOOD GAS BASE EXCESS 3.6 mmol/L (0.0-2.0); VENOUS BLOOD GAS PO2 128 mm/Hg (30-55)
[2018-09-09 18:59] LABS: BASO # 0.03 K/mm3 (0.0-2.0); BASO % 0.3 % (0.0-3.0); EOS # 0.2 (0.0-0.7); EOS % 1.7 % (1.5-5.0); LYMPH # 1.8 (1.2-3.4); LYMPH % 20.8 % (22.0-35.0); MEAN CELL VOLUME 86.9 fl (80.0-105.0); MEAN CORPUSCULAR HEMOGLOBIN 26.9 pg (25.0-35.0); MEAN PLATELET VOLUME 10.3 fl (7.0-11.0); MONO # 0.4 (0.1-0.6); MONO % 5.1 % (1.0-6.0); RBC 2.97 10^6/uL (3.5-6.1); RED CELL DISTRIBUTION WIDTH 17.9 % (11.5-14.5); WHITE BLOOD COUNT 8.7 10^3/uL (4.5-11.0)
[2018-09-09 19:07] LABS: BLOOD UREA NITROGEN 55 mg/dL (7-21); CALCIUM 8.5 mg/dL (8.4-10.5); GFR NON-AFRICAN AMERICAN 23
[2018-09-09] MEDS ORDERED: Potassium Chloride 20 mEq ER Tab PO STA (19:11)
[2018-09-09 19:18] LABS: TROPONIN I 0.07 ng/mL
[2018-09-09] MEDS ORDERED: Iohexol 240 (50 ml) ONE (19:40)
[2018-09-09] MEDS: MethylPREDNISolone 40 mg Vial IVP SCH (20:15)
[2018-09-09] MEDS: Albuterol-Ipratrop 3 mg / 0.5 (3 ml) UD IH SCH ×4 (20:39→21:26)
[2018-09-09 21:25] LABS: VENOUS BLOOD GAS PO2 42 mm/Hg (30-55)
[2018-09-09] MEDS: Insulin Reg-MEDIUM-Coverage SC SCH (22:29)
--- NOTE | 2018-09-10 00:15 | CP.PCM.PN ---
Subjective - Date & Time of Evaluation Date of Evaluation: 09/10/18 Time of Evaluation: 00:15 - Subjective Subjective: Called to see pt to obtain consent for blood transfusion of 2 units PRBCs as per primary attending Dr. Mann. After discussion of risks and benefits of therapy with patient and RN as witness at bedside, pt refused transfusion at this time, stating that she would like to wait to discuss with Dr. Mann in the am. RN to notify Dr. Mann of plan. Objective - Vital Signs/Intake and Output Vital Signs (last 24 hours): Temp Pulse Resp BP Pulse Ox 97.8 F 58 L 18 91/48 L 100 09/09/18 22:36 09/09/18 22:36 09/09/18 22:36 09/09/18 22:36 09/09/18 22:36 - Medications Medications: Current Medications Albuterol/Ipratropium (Duoneb 3 Mg/0.5 Mg (3 Ml) Ud) 3 ml IH [id number] RONI Stop: 09/10/18 02:01 Last Admin: 09/09/18 21:26 Dose: Not Given Fluticasone Propionate (Flonase) 1 actuation MARIAM DAILY RONI Furosemide (Lasix) 40 mg IVP DAILY RONI Ceftriaxone Sodium (Rocephin 1 Gram Ivpb) 1 gm in 100 mls @ 100 mls/hr IVPB DAILY RONI; Protocol Azithromycin (Zithromax 500mg In Ns) 500 mg in 250 mls @ 167 mls/hr IVPB DAILY RONI; Protocol Insulin Human Regular (Humulin R Med) 0 units SC ACHS RONI; Protocol Last Admin: 09/09/18 22:29 Dose: Not Given Levothyroxine Sodium (Synthroid) 25 mcg PO ACB RONI Methylprednisolone (Solu-Medrol) 40 mg IVP Q8H RONI Last Admin: 09/09/18 20:15 Dose: Not Given Pantoprazole Sodium (Protonix Inj) 40 mg IVP DAILY RONI Warfarin Sodium (Coumadin) 3 mg PO DAILY RONI; Protocol - Labs Labs: 09/09/18 18:35 09/09/18 18:35
[2018-09-10] MEDS: Albuterol-Ipratrop 3 mg / 0.5 (3 ml) UD IH SCH ×4 (01:49→20:52)
--- NOTE | 2018-09-10 02:33 | HP ---
DATE OF EXAM: 09/09/2018 HISTORY OF PRESENT ILLNESS: I was Maria Isabel Bowden's house last week, I started her on Levaquin, I increased her medication, and also started on prednisone hoping to get her oxygen level better. She was sating between 89 and 91. Also, she is on nebulizer treatments at home. She is morbidly obese. She was 700 pounds over 4 months ago. Over the past 4 months, she got down to 315 pounds. She has a CA19-9, which is quiet high, we are going to trying to get an outpatient CAT scan of the abdomen and pelvis to look for a pancreatic cancer and the reason for the weight loss. She is now down to 315, I am going to try and do a CAT scan of the abdomen and pelvis here. She is also sating at 80% in the ER without oxygen. She is a 73-year-old female, who I know very, very well, who has a productive cough yellow sputum and shortness of breath. I increased her steroids at home and put her on levofloxacin. She has been on prednisone 40 mg for 3 days and 30 mg for 3 days. She is in very short of breath and she has oxygen at home. I have been seeing on house calls for few years now and I am taking care of her in the hospital too. She is short of breath, palpitations, atrial fibrillation history, hypotension, +4 pitting edema, lymphedema, uses O2 at home, and nebulizer treatment at home. PAST MEDICAL HISTORY: History of asthma, COPD, emphysema, and pneumonia. She wears glasses. She has thrust from the oral cavity from time to time because of the puffers. She has type 2 diabetes. She has been septic in the past and anemic in the past. She has had bilateral thigh ulcers and stasis ulcers, which have improved. They have been coming and going for few years now,this is the best way they have been. At this time, there is some foul smelling drainage in bilateral thighs, also in the abdomen. She had a surgery benign mass removed from her abdominal 30 years ago, morbid obesity, there is also some blood in the stool, and hematuria. There is incontinence to urine and stool. Urinary tract infection history. She had cardiac catheterizations. FAMILY HISTORY: Unknown family history. SOCIAL HISTORY: Nonsmoker. No drinking. No drugs. ALLERGIES: NO KNOWN DRUG ALLERGIES. MEDICATIONS: She has been on Coumadin for atrial fibrillation, DuoNeb, Lotrisone cream, Flonase, Lasix, Levemir, Synthroid, Glucophage, Silvadene cream, Pulmicort, Bactroban cream, Protonix, Levaquin, prednisone, Augmentin, Periactin, and midodrine. REVIEW OF SYSTEMS: No acute vision or hearing changes. Little dry throat. She has a cough, but no shortness of breath and yellow green sputum after I started her on Levaquin and she was on Augmentin. She is short of breath, cannot get the oxygen saturation above 80 when I was there, it was 90 to 91 on oxygen. There was no chest pain. Some palpitations. No abdominal pain, nausea, vomiting, constipation, or diarrhea. She absolutely has no appetite and cannot eat. Extremities are very swollen with lymphedema bilateral thigh ulcers and some abdominal ulcers. PHYSICAL EXAMINATION: VITAL SIGNS: She has a 97.8 temperature, 20 respiratory rate, and 109/49 blood pressure. GENERAL: She is alert. She is little toxic, uncomfortable, weak, lethargic, alert, and oriented x3. HEENT: Head is atraumatic and normocephalic. Extraocular muscles are intact. Pupils are equal and reactive to light and accommodation. Throat is moist. NECK: Supple. HEART: Regular rate. Normal S1 and S2. LUNGS: Wheezes and congestion bilaterally. Poor inspiration. ABDOMEN: Morbidly obese, soft, and nontender. Positive bowel sounds. No palpable masses. She is very large. EXTREMITIES: She has bilateral pitting edema of the lower extremities are 4+, they were much worse few months back. NEUROLOGIC: GCS is 15. Cranial nerves II through XII intact. Speech is normal. Alert and oriented x3. SKIN: Multiple skin ulcers on the abdomen and the thighs. LYMPHS: Thyroid nonpalpable. LABORATORY DATA: She has multiple tests done. She has an 8.7 white count and 8 hemoglobin, I will transfuse her 2 units to see if we get the hemoglobin above 10, hematocrit 25.8, and platelets of 210. She has 7.3 , lactate 5, sodium 136, potassium 3.1 and we potassium, BUN 55, and creatinine 2.1. GFR is 23, sugar is 90, calcium is 8.5, magnesium 1.8, and lactate dehydrogenase 364. Troponins are pending. Review of the chest x-ray, which shows mild pulmonary vascular congestion. I will try and get a CAT scan of the chest, abdomen and pelvis, we have not go to get that for many years. IMPRESSION AND PLAN: We called in Pulmonary and we will see what we find on the test results. Check an INR tomorrow. I am going to transfuse her 2 units of packed red blood cells. She is here for chronic obstructive pulmonary disease acute exacerbation, failed outpatient therapy and elevated CA19-9, weight loss from 700 pounds down to 315 in about 4 months. Alan Mann DO MTDD
[2018-09-10 03:40] VITALS: BMI 45.1
[2018-09-10] MEDS ORDERED: Pneumococcal 23-Valent Vaccine IM ONE (03:40)
[2018-09-10] MEDS ORDERED: Influenza Vaccine 60 mcg/0.5 mL SYR (4YR UP) IM ONE (03:40)
[2018-09-10] MEDS: MethylPREDNISolone 40 mg Vial IVP SCH ×3 (05:54→21:16)
[2018-09-10] MEDS ORDERED: Albuterol-Ipratrop 3 mg / 0.5 (3 ml) UD IH PRN (07:04)
[2018-09-10] MEDS: Budesonide 0.5 mg/2 ml Inhal Susp UD IH SCH ×2 (08:47→20:52)
[2018-09-10] MEDS: Insulin Reg-MEDIUM-Coverage SC SCH ×4 (08:57→21:26)
[2018-09-10] MEDS: Levothyroxine 25 MCG TAB PO SCH (08:58)
[2018-09-10 09:11] LABS: HEMOGLOBIN 9.1 g/dL (12.0-16.0); MEAN CELL VOLUME 86.4 fl (80.0-105.0); MEAN CORPUSCULAR HEMOGLOBIN 26.4 pg (25.0-35.0); MEAN CORPUSCULAR HGB CONC 30.5 g/dl (31.0-37.0); MEAN PLATELET VOLUME 10.1 fl (7.0-11.0); RBC 3.45 10^6/uL (3.5-6.1); RED CELL DISTRIBUTION WIDTH 18.2 % (11.5-14.5)
[2018-09-10 09:14] LABS: INR 1.28; PROTHROMBIN TIME 14.5 SECONDS (9.4-12.5)
[2018-09-10 09:23] LABS: CALCIUM 8.7 mg/dL (8.4-10.5)
[2018-09-10] MEDS: cefTRIAXone 1 gm 1 GM/100 ML BAG IVPB SCH (09:32)
[2018-09-10] MEDS ORDERED: Azithromycin 500MG/NS 250ml 500 MG/250 ML BAG IVPB SCH (10:00)
--- NOTE | 2018-09-10 10:01 | CARD ---
APPROVED REPORT Date of service: 09/09/2018 EKG Measurement Heart [id number] <Conclusion> Atrial fibrillation with slow ventricular response ST & T wave abnormality, consider inferior ischemia or digitalis effect ST & T wave abnormality, consider anterolateral ischemia or digitalis effect Abnormal ECG
--- NOTE | 2018-09-10 12:33 | CON ---
DATE: 09/10/2018 PULMONARY CONSULTATION REASON FOR PULMONARY CONSULTATION: Shortness of breath. REFERRING PHYSICIAN FOR THIS PULMONARY CONSULTATION: Dr. Mann. History is obtained via extensive discussion with the nurse. I have also discussed the case with the patient and at length. I have also reviewed the chart at length. HISTORY OF PRESENT ILLNESS: The patient is a chronically ill 73-year-old female, bedridden, with past medical history significant for advanced chronic obstructive pulmonary disease, asthma, recurrent bronchitis, morbid obesity, pulmonary hypertension, diabetes mellitus, cardiac arrhythmias, congestive heart failure, who presents to [facility] with a 4-day history of worsening shortness of breath, cough, and sputum production. There is no history of chest pain, coughing up of blood, or chest pain - brought on with deep respirations. There is no history of temperatures, chills, or infectious exposure. There is no history of night sweats. The patient does state to decreased appetite with weight loss over the past 4 to 6 months. No history of calf pains. No history of syncope or diaphoresis. No history of recent travel or trauma. REVIEW OF SYSTEMS: No history of nausea, vomiting, or diarrhea. No acute urinary symptoms. No new neurologic complaints. Rest of the review of systems is negative. ALLERGIES: NO KNOWN ALLERGIES. SOCIAL HISTORY: Positive for former tobacco usage. No alcohol. FAMILY HISTORY: No inheritable diseases. HOME MEDICATIONS: Include Coumadin, Phenergan, Protonix, Glucophage, Synthroid, Levaquin, Lasix, Flonase, diltiazem, Digitek, Pulmicort, and DuoNebs. PHYSICAL EXAMINATION: GENERAL: The patient appears comfortable at rest. She is not short of breath. VITALS: Temperature is 97.8, pulse 56, respirations 18, last blood pressure recorded is 91/48. Oxygen saturation on nasal cannula is 100%. HEENT: Normocephalic and atraumatic. No JVD. CARDIOVASCULAR: Systolic ejection murmur at the lower left sternal border. No S3 gallop. LUNGS: Decreased breath sounds at the bases. Mild bilateral rhonchi and wheezing are appreciated. EXTREMITIES: Mild edema. No cyanosis, no clubbing. Calves are nontender to palpation. GI: Abdomen is soft, nontender, and nondistended. Bowel sounds are positive. SKIN: No acute rash. NEUROLOGIC: Exam limited at the present time. PERTINENT LABORATORY DATA: Chest x-ray was done yesterday and reviewed. The chest x-ray is not significantly changed from the previous film. CBC: White count 8.7K, hemoglobin 8, hematocrit 25.8, platelets of 210,000. Complete Metabolic Profile: Potassium 3.1, chloride 96, BUN 55, creatinine 2.1. B-type natriuretic peptide 12,100. Rest of the metabolic profile is within normal limits. IMPRESSION: 1. Acute bronchitis. 2. Advanced chronic obstructive pulmonary disease. 3. Asthma. 4. Anemia. 5. Renal insufficiency. PLAN: Again, I did discuss the case with the patient and at length. I have also discussed the case with the nurse at length. I have also reviewed the chart at length. The patient presents to [facility] with a 4-day history of worsening pulmonary symptoms. I did review the chest x-ray as above. The chest x-ray is not significantly changed from the previous films. Official results are pending. On physical exam, the patient is in [id number] bronchospasm. I will continue the current intravenous steroids for now. I will also place the patient on DuoNeb treatments and inhaled steroids. She does have a history of advanced chronic obstructive pulmonary disease. The patient has also been placed on antibiotic therapy. There are no temperatures by history. There is no leukocytosis.. CAT scan of the chest, abdomen, and pelvis has been ordered - due to the patient's weight loss. Dr. Mae (Oncology) has been called on the case. The patient does state to feeling better this morning, and is clinically improved. However, given the above, the future status/prognosis for this patient remains very guarded. I will discuss the above with Dr. Mann. Thank you very much for this pulmonary consultation. Ke Farooq MD ANUP
--- NOTE | 2018-09-10 15:13 | PN ---
DATE: 09/10/2018 SUBJECTIVE: I saw her in the intensive care unit with her at bedside. She is alert, uncomfortable. No real appetite. She was anemic. I was then trying to transfuse her two units, they refused, but it went up from an 8 to a 9 point something, so they do not want a blood transfusion at this time. I am trying to get a CAT scan of the chest, abdomen, and pelvis. I have been trying to get that for months. She weighs 700 plus pounds about 3 to 4 months ago, now she is down to 315. I am trying to find the cancer. She is on Coumadin, Flonase, insulin coverage, potassium, Lasix, Protonix, Pulmicort, Rocephin, methylprednisolone, Solu-Medrol 40 IV every 8 hours, Synthroid, Zithromax. PHYSICAL EXAMINATION: VITAL SIGNS: She has a 97.8 temperature, 58 pulse, 91/48 blood pressure, 18 respiratory rate, 100% saturating on 2 liters. HEENT: Head is atraumatic and normocephalic. Throat is dry. NECK: Supple. HEART: Regular rate. LUNGS: Decreased breath sounds but clear. ABDOMEN: Morbidly obese, soft, nontender. EXTREMITIES: pitting edema. LABORATORY DATA: She has a 5 white count, hemoglobin up from 8 to 9.1, so they do not want a transfusion at this time. Hematocrit is 29.8, platelets of 226. We will keep an eye on hemoglobin. INR is 1.28 on Coumadin. She has 135 sodium, potassium 3.5 and I continued to give her some potassium riders. BUN 54, creatinine 2.1, GFR is 23, 199, phosphorous is 2.2, magnesium is 1.8. BNP of 12,100. CA 19-9 is pending. ASSESSMENT AND PLAN: Negative for the flu. She is being seen by Pulmonary and Oncology. Hoping for a CAT scan of the chest, abdomen and pelvis today, also intravenous antibiotics. Routine aggressive treatment of care and intravenous Solu-Medrol for Maria sIabel Bowden. Alan Mann DO [facility] # [id number] MTDD
[2018-09-10] MEDS: Fluticasone Nasal 50 mcg/Spray NAS SCH (17:32)
--- NOTE | 2018-09-10 18:42 | CT ---
Date of service: 09/10/2018 PROCEDURE: CT Chest, Abdomen and Pelvis without intravenous contrast HISTORY: hi ca 19-9 COMPARISON: None available. TECHNIQUE: Radiation dose: Total exam DLP = 1912.3 mGy-cm. This CT exam was performed using one or more of the following dose reduction techniques: Automated exposure control, adjustment of the mA and/or kV according to patient size, and/or use of iterative reconstruction technique. FINDINGS: CT CHEST WITHOUT CONTRAST: LUNGS: Clear. No nodule, mass or consolidation. MEDIASTINUM: Unremarkable. Dilated main pulmonary artery consistent with pulmonary arterial hypertension.. Normal size heart. LYMPH NODES: Unremarkable. PLEURA: Unremarkable. No pneumothorax. No pleural fluid. BONES: Unremarkable. OTHER FINDINGS: None. CT ABDOMEN AND PELVIS: LIVER: Unremarkable. No gross lesion or ductal dilatation. GALLBLADDER AND BILE DUCTS: Unremarkable. PANCREAS: Atrophic pancreas no gross lesion or ductal dilatation. SPLEEN: Unremarkable. ADRENALS: Unremarkable. No mass. KIDNEYS AND URETERS: Unremarkable. No hydronephrosis. No solid mass. Incidental finding(s): Left upper pole cyst 3.2 cm. Lower pole right renal cyst 1.9 cm. VASCULATURE: No aortic atherosclerotic calcification or mural plaque present. Unremarkable. No aortic aneurysm. BOWEL: Unremarkable. No obstruction. No gross mural thickening. APPENDIX: Normal appendix. PERITONEUM: Unremarkable. No free fluid. No free air. LYMPH NODES: Unremarkable. No enlarged lymph nodes. BLADDER: Unremarkable. REPRODUCTIVE: Unremarkable. BONES: No acute fracture. OTHER FINDINGS: Profound edema of the visualize lower extremities. The etiology of this is not readily apparent based on the current study. No masses, along significant lymphadenopathy noted. Ses mint of arterial and venous structures precluded by absence of intravenous contrast. IMPRESSION: No significant or acute findings to account for/ related to the clinical presentation. Additional benign and/or incidental findings described above.
[2018-09-11] MEDS: Albuterol-Ipratrop 3 mg / 0.5 (3 ml) UD IH SCH ×4 (01:46→19:08)
[2018-09-11] MEDS: MethylPREDNISolone 40 mg Vial IVP SCH ×2 (02:44→21:16)
[2018-09-11 07:16] LABS: HEMOGLOBIN 8.1 g/dL (12.0-16.0); MEAN CORPUSCULAR HEMOGLOBIN 26.5 pg (25.0-35.0); MEAN CORPUSCULAR HGB CONC 31.2 g/dl (31.0-37.0); MEAN PLATELET VOLUME 10.1 fl (7.0-11.0); RBC 3.06 10^6/uL (3.5-6.1); RED CELL DISTRIBUTION WIDTH 18.1 % (11.5-14.5); WHITE BLOOD COUNT 7.2 10^3/uL (4.5-11.0)
[2018-09-11 07:18] LABS: ALBUMIN 2.8 g/dL (3.0-4.8); CALCIUM 8.4 mg/dL (8.4-10.5)
[2018-09-11 07:24] LABS: INR 1.42; PROTHROMBIN TIME 16.1 SECONDS (9.4-12.5)
[2018-09-11] MEDS: Budesonide 0.5 mg/2 ml Inhal Susp UD IH SCH ×2 (07:31→19:08)
--- NOTE | 2018-09-11 07:59 | PN ---
DATE: 09/11/2018 PULMONARY NOTE SUBJECTIVE: The patient appears comfortable this morning. She is not short of breath at rest. She does state to feeling better this morning. PHYSICAL EXAMINATION: VITALS: Temperature is 98.8, pulse is 64, respiratory rate 18-20, blood pressure 115/35. Oxygen saturation on nasal cannula is 97%. HEENT: Normocephalic, atraumatic. NECK: No JVD. CARDIOVASCULAR: Systolic ejection murmur at the lower left sternal border. No S3 gallop. LUNGS: Decreased breath sounds at the bases. Less rhonchi. No wheezing this morning. EXTREMITIES: Mild edema. No cyanosis, no clubbing. Calves are nontender to palpation. GASTROINTESTINAL: Abdomen is soft, nontender, and nondistended. Bowel sounds are positive. SKIN: No acute rash. NEUROLOGIC: Exam limited at the present time. IMPRESSION: 1. Acute bronchitis. 2. Advanced chronic obstructive pulmonary disease. 3. Asthma. 4. Anemia. 5. Renal insufficiency. PLAN: The patient appears comfortable this morning. She is not short of breath at rest. She does state to feeling better overall. I did discuss the case with the night nurse at length. The night nurse stated that the patient had a good night. The patient did have a CAT scan of the chest done yesterday. The lungs are clear, with no nodule, mass, or consolidation noted. There is evidence of pulmonary artery hypertension. On physical exam, there is certainly less bronchospasm noted. In addition, there is no significant alveolar-arterial gradient. I will continue the current nebulizer treatments and decrease the intravenous steroids this morning. The patient remains on antibiotic therapy. There are no temperatures noted. There is no leukocytosis. We are awaiting an oncology consultation (with Dr. Mae). Clinical status of the patient is certainly improved - compared to the initial presentation. However, again, the future status/prognosis for this chronically ill patient remains very guarded at best. I will discuss the above with Dr. Mann. Ke Farooq MD ANUP
[2018-09-11] MEDS ORDERED: Potassium Chloride 20 mEq ER Tab PO ONE (11:19)
[2018-09-11] MEDS: Insulin Reg-MEDIUM-Coverage SC SCH (15:07)
--- NOTE | 2018-09-11 15:42 | PN ---
DATE: 09/11/2018 SUBJECTIVE: I saw her in the intensive care unit with her at bedside, also oncologist Dr. Mae was there. She had elevated CA-99. She had over 400-pound weight loss in the past 4 months and we finally were able to get a CAT scan of her chest, abdomen, and pelvis. I was looking for a pancreatic cancer or any cancer for the extreme weight loss with no appetite over the past 4 months with 400 pounds. She was 700 pounds, now she is down 315. There is no significant acute findings related clinical presentation. All the CAT scans were fine. I did not find anything, which is remarkable. She still has no appetite. She has little bit of a sore throat. She has acute bronchitis, advanced COPD, asthma, anemia, renal insufficiency. She has weight loss. PHYSICAL EXAMINATION: VITAL SIGNS: She has a 98.8 temperature, 115/35 blood pressure and 100% O2 sat. HEENT: Head: Atraumatic and normocephalic. Throat is dry. HEART: Regular rate. LUNGS: Decreased breath sounds, but clear. ABDOMEN: Soft. Morbidly obese. EXTREMITIES: A +4/4 pitting edema. LABORATORY DATA: She has a 7.2 white count, 8.1 hemoglobin. We are going to give her 2 units of packed red blood cells, hematocrit 26, platelets of 215. INR is 1.4. Lactate is down to 2.4 still high. Chemistry: Sodium 135, potassium is 3 and we replaced potassium, BUN 52, creatinine 2.1, GFR 23, sugars at 183, calcium is 8.4, total bilirubin is 0.4, AST is 14, ALT is 24, alk phos is 132, total protein is 5.6. BNP is 12,100 quite high. She has coagulase, negative Staph and gram stain of the wound. ASSESSMENT AND PLAN: She is being seen by Pulmonary. I am going to call Infectious Disease and Cardiology. Continue with aggressive treatment and care on Maria Isabel Bowden, who has got multiple issues with COPD, weight loss, anemia, and weakness. Alan Mann DO [facility] # [id number] MTDD
[2018-09-11] MEDS: Promethazine DM 6.25 mg-15 mg/5 ml Syrup PO PRN (17:47)
[2018-09-12] MEDS: Albuterol-Ipratrop 3 mg / 0.5 (3 ml) UD IH SCH ×4 (04:01→21:18)
[2018-09-12] MEDS: Insulin Reg-MEDIUM-Coverage SC SCH ×5 (04:40→21:52)
[2018-09-12] MEDS: Budesonide 0.5 mg/2 ml Inhal Susp UD IH SCH ×2 (07:04→21:17)
[2018-09-12 07:35] LABS: HEMOGLOBIN 8.9 g/dL (12.0-16.0); MEAN CELL VOLUME 85.2 fl (80.0-105.0); MEAN CORPUSCULAR HGB CONC 31.7 g/dl (31.0-37.0); MEAN PLATELET VOLUME 9.6 fl (7.0-11.0); RBC 3.3 10^6/uL (3.5-6.1); RED CELL DISTRIBUTION WIDTH 17.6 % (11.5-14.5)
[2018-09-12 07:53] LABS: ALBUMIN 2.8 g/dL (3.0-4.8); CALCIUM 8.3 mg/dL (8.4-10.5)
--- NOTE | 2018-09-12 08:35 | CON ---
DATE: 09/12/2018 CARDIOLOGY CONSULTATION HISTORY: The patient is a 73-year-old woman who presents with cough with shortness of breath and sputum production. PAST MEDICAL HISTORY: Notable for severe COPD, morbid obesity, asthma, bronchitis, pulmonary hypertension and diabetes mellitus with intermittent atrial fibrillation. The patient denies chest pain. Currently, the patient is in bed without shortness of breath at rest. She does suffer from chronic edema. SOCIAL HISTORY: The patient does not smoke. REVIEW OF SYSTEMS: As above. PHYSICAL EXAMINATION: VITAL SIGNS: Blood pressure is 103/42, heart rate is atrial fibrillation in the 80s. NECK: Negative JVD. LUNGS: Decreased breath sounds bilaterally. HEART: Reveals S1, S2. EXTREMITIES: Chronic edema in the lower extremities. LABORATORY DATA: Hemoglobin is 8.9. BUN and creatinine are 52 and 2.1. Troponins are 0.07 which are unchanged, which are indeterminate. IMPRESSION: 1. Exacerbation of chronic obstructive pulmonary disease. 2. Questionable bronchitis. 3. Renal insufficiency. 4. Diabetes mellitus. 5. Morbid obesity. 6. History of chronic atrial fibrillation. Given these findings, the patient's cardiac status is stable. The patient needs to continue on anticoagulation for chronic atrial fibrillation. Ryan Turk MD
[2018-09-12] MEDS: Levothyroxine 25 MCG TAB PO SCH (08:51)
[2018-09-12] MEDS: Pantoprazole 40 mg EC Tab PO SCH (08:51)
[2018-09-12] MEDS: Fluticasone Nasal 50 mcg/Spray NAS SCH (09:19)
[2018-09-12] MEDS: cefTRIAXone 1 gm 1 GM/100 ML BAG IVPB SCH (09:21)
[2018-09-12] MEDS: MethylPREDNISolone 40 mg Vial IVP SCH ×3 (09:22→21:51)
--- NOTE | 2018-09-12 10:47 | PN ---
DATE: 09/12/2018 SUBJECTIVE: The patient appears comfortable this morning. She is not short of breath at rest. PHYSICAL EXAMINATION: VITAL SIGNS: Temperature is 97.9, pulse is 84, respiratory rate 18, blood pressure 103/42. Oxygen saturation on nasal cannula is 99%. HEENT: Normocephalic, atraumatic. No JVD. CARDIOVASCULAR: Systolic ejection murmur at the lower left sternal border. No S3 gallop. LUNGS: Decreased breath sounds at the bases. Minimal/less rhonchi. No wheezing. EXTREMITIES: Mild edema. No cyanosis, no clubbing. Calves are nontender to palpation. GASTROINTESTINAL: Abdomen is soft, nontender and nondistended. Bowel sounds are positive. SKIN: No acute rash. NEUROLOGIC: Exam limited at the present time. IMPRESSION: 1. Acute bronchitis. 2. Advanced chronic obstructive pulmonary disease. 3. Asthma. 4. Anemia. 5. Renal insufficiency. PLAN: The patient appears comfortable this morning. She is not short of breath at rest. She does state to feeling better overall. I did discuss the case with the night nurse at length. The night nurse stated the patient had a good night. On physical exam, the patient's bronchospasm continues to slowly resolve. In addition, the alveolar-arterial gradient also continues to resolve. I will continue the current nebulizer treatments and decrease the intravenous steroids this morning. Inputs by Internal Medicine and Cardiology are also noted. Clinical status of the patient is certainly improved - compared to the initial presentation. However, given the above, the future status/prognosis for this patient remains very guarded at best. I will discuss the above with Dr. Mann later this morning. Ke Farooq MD MTDVivien
[2018-09-12] MEDS ORDERED: Potassium Chloride 20 mEq ER Tab PO ONE (13:26)
--- NOTE | 2018-09-12 15:29 | CP.PCM.CON ---
History of Present Illness - History of Present Illness History of Present Illness: 71 year old female with PMH of COPD, CHF, morbid obesity with BMI 46, history of right leg surgery and breast surgery, chronic ulcers on the lower extremities came in to [facility] because of cough and continue shortness of breath for several days. She was seen by her PMD and was being treated with Levaquin but she continued to have cough. She denies having fever or chills, no nausea or vomiting, no chest pain, no headache or dizziness, no abdominal pain, no diarrhea, no dysuria, no rhinorrhea, no sore throat. CT C/A/P did not reveal acu te pathology. Infectious diseases consult is requested to further evaluate and manage. PMH: as above FMH: unknown PSH: denies smoking, no alcohol abuse, no illicit drug use Review of Systems - Review of Systems All systems: reviewed and no additional remarkable complaints except (as per HPI) Past Patient History - Infectious Disease Hx of Infectious Diseases: None - Tetanus Immunizations Tetanus Immunization: Unknown - Past Social History Smoking Status: Never Smoked - CARDIAC Hx Cardiac Disorders: Yes (Palpitations.) Hx Angina: Yes Hx Cardia Arrhythmia: Yes (Chronic Atrial Fibrillation.) Hx Circulatory Problems: Yes (Lymphedema) Hx Congestive Heart Failure: Yes Hx Hypercholesterolemia: Yes Hx Peripheral Edema: Yes (Lymphedema; +4 pitting.) Hx Peripheral Vascular Disease: Yes (Lymphadema) - PULMONARY Hx Respiratory Disorders: Yes Hx Asthma: Yes Hx Chronic Obstructive Pulmonary Disease (COPD): Yes Hx Emphysema: Yes Hx Pneumonia: Yes Hx Respiratory Tract Infection: Yes - NEUROLOGICAL Hx Neurological Disorder: No - HEENT Hx HEENT Problems: Yes (Wears glasses.) Other/Comment: Hx of oral thrush. - RENAL Hx Chronic Kidney Disease: Yes (Renal insufficiency) - ENDOCRINE/METABOLIC Hx Endocrine Disorders: Yes Hx Diabetes Mellitus Type 2: Yes - HEMATOLOGICAL/ONCOLOGICAL Hx Blood Disorders: Yes (Hx of septicemia) Hx Anemia: Yes Hx Cancer: (Denied by pt.) - INTEGUMENTARY Hx Dermatological Problems: Yes (Chronic venous stasis dermatitis BLEs.) Other/Comment: Pt is obese, right outer thigh skin w/opening w/ scant amount of purulent drainage noted. Other previosly opened areas healed. Dimpling noted to b/l thighs. States occasional drainage from left thigh. Bilateral lower legs and feet w/dry skin. Bilateral +4 pitting edema w/brown discolored dry skin and toenails of both feet. Multiple wounds to b/l buttocks, irregular wound left but tock red, multiple wounds in various stages of healing to entire inner buttocks along gluteal area. - MUSCULOSKELETAL/RHEUMATOLOGICAL Hx Musculoskeletal Disorders: Yes Hx Back Pain: Yes Hx Falls: No - GASTROINTESTINAL Hx Gastrointestinal Disorders: Yes (Benign mass removed from abd 30 yrs ago in ) Hx Gastroesophageal Reflux: Yes (Gas pain.) Other/Comment: Hx of morbid obesity; blood in stool. Unexplained weight loss. ? Hernia /2018. - GENITOURINARY/GYNECOLOGICAL Hx Genitourinary Disorders: Yes Hx Hematuria: Yes Hx Incontinence: Yes (Bladder and Bowel.) Hx Urinary Tract Infection: Yes - PSYCHIATRIC Hx Psychophysiologic Disorder: No Hx Substance Use: No - SURGICAL HISTORY Hx Surgeries: Yes (Hx of vascular sx w/ Dr. Darnell 2011.) Hx Cardiac Catheterization: Yes (No blockages as per pt; 2005 [place]/ [place] [facility] [place] Other/Comment: Benign mass removed from abd over 30 yrs ago in . - ANESTHESIA Hx Anesthesia: Yes Meds Allergies/Adverse Reactions: Allergies Allergy/AdvReac Type Severity Reaction Status Date / Time No Known Allergies Allergy Verified 07/10/18 04:46 - Medications Medications: Current Medications Albuterol/Ipratropium (Duoneb 3 Mg/0.5 Mg (3 Ml) Ud) 3 ml IH [id number] [facility] Last Admin: 09/12/18 04:01 Dose: Not Given Albuterol/Ipratropium (Duoneb 3 Mg/0.5 Mg (3 Ml) Ud) 3 ml IH Q2H PRN PRN Reason: Shortness of Breath Azithromycin (Zithromax) 500 mg PO DAILY [facility] Benzocaine/Menthol (Cepacol Sore Throat) 1 rosa MT Q2H PRN PRN Reason: Sore Throat Budesonide (Pulmicort Respules) 0.5 mg IH [id number] [facility] Last Admin: 09/11/18 19:08 Dose: 0.5 mg Fluticasone Propionate (Flonase) 1 actuation MARIAM DAILY [facility] Last Admin: 09/10/18 17:32 Dose: 1 spr Furosemide (Lasix) 40 mg IVP DAILY [facility] Last Admin: 09/10/18 09:32 Dose: Not Given Ceftriaxone Sodium (Rocephin 1 Gram Ivpb) 1 gm in 100 mls @ 100 mls/hr IVPB DAILY [facility]; Protocol Stop: 09/14/18 10:59 Last Admin: 09/10/18 09:32 Dose: 100 mls/hr Insulin Human Regular (Humulin R Med) 0 units SC ACHS [facility]; Protocol Last Admin: 09/12/18 04:40 Dose: Not Given Levothyroxine Sodium (Synthroid) 25 mcg PO ACB RONI Last Admin: 09/10/18 08:58 Dose: 25 mcg Methylprednisolone (Solu-Medrol) 40 mg IVP Q12 RONI Last Admin: 09/11/18 21:16 Dose: 40 mg Pantoprazole Sodium (Protonix Ec Tab) 40 mg PO ACB RONI Promethazine HCl/Dextromethorphan (Phenergan Dm Syrup) 5 ml PO Q6H PRN PRN Reason: Cough Last Admin: 09/11/18 17:47 Dose: 5 ml Warfarin Sodium (Coumadin) 3 mg PO DAILY [facility]; Protocol Last Admin: 09/10/18 09:33 Dose: 3 mg Physical Exam - Constitutional Appears: Non-toxic, No Acute Distress, Chronically Ill - Head Exam Head Exam: NORMAL INSPECTION - ENT Exam ENT Exam: Mucous Membranes Moist - Neck Exam Neck exam: Negative for: Meningismus - Respiratory Exam Respiratory Exam: Decreased Breath Sounds - Cardiovascular Exam Cardiovascular Exam: +S1, +S2 - GI/Abdominal Exam GI & Abdominal Exam: Soft. absent: Tenderness Results - Vital Signs Recent Vital Signs: Last Vital Signs Temp 97.7 F 09/11/18 17:20 Pulse 79 09/11/18 17:20 Resp 16 09/11/18 17:20 BP 117/63 09/11/18 17:20 Pulse Ox 91 L 09/11/18 18:00 - Labs Result Diagrams: 09/12/18 07:25 09/12/18 07:25 Labs: Laboratory Results - last 24 hr 09/09/18 09/11/18 09/11/18 21:00 06:50 06:50 WBC 7.2 D RBC 3.06 L Hgb 8.1 L Hct 26.0 L MCV 85.0 MCH 26.5 MCHC 31.2 RDW 18.1 H Plt Count 215 MPV 10.1 PT INR Sodium 135 Potassium 3.0 L Chloride 97 L Carbon Dioxide 31 Anion Gap 10 BUN 52 H Creatinine 2.1 H Est GFR ( Amer) 28 Est GFR (Non-Af Amer) 23 Random Glucose 183 H Calcium 8.4 Total Bilirubin 0.4 AST 14 D ALT 24 Alkaline Phosphatase 132 H Total Protein 5.6 L Albumin 2.8 L Globulin 2.8 Albumin/Globulin Ratio 1.0 L Blood Type O POSITIVE Antibody Screen Negative Crossmatch See Detail BBK History Checked Patient has bt 09/11/18 06:50 WBC RBC Hgb Hct MCV MCH MCHC RDW Plt Count MPV PT 16.1 H INR 1.42 Sodium Potassium Chloride Carbon Dioxide Anion Gap BUN Creatinine Est GFR ( Amer) Est GFR (Non-Af Amer) Random Glucose Calcium Total Bilirubin AST ALT Alkaline Phosphatase Total Protein Albumin Globulin Albumin/Globulin Ratio Blood Type Antibody Screen Crossmatch BBK History Checked Assessment & Plan - Assessment and Plan (Free Text) Plan: Assessment consider acute bronchitis history of sepsis due to bilateral lower lobe HCAP history of Pseudomonas bilateral infected wound on lower extremities, S/P treatment with 16 days of antibiotics history of right thigh wound infection with ESBL-producing E. coli history of urinary tract infection COPD CHF morbid obesity with BMI 70 history of right leg surgery and breast surgery chronic ulcers on the lower extremities Plan continue Rocephin and Zithromax for 3-5 days overall prognosis is poor
--- NOTE | 2018-09-12 15:48 | PN ---
DATE: 09/12/2018 SUBJECTIVE: I saw her in her room in intensive care unit. Her is there with her. She is having some throat issues. I have given her Mycelex Boyd in the past, hopefully, that will help with throat issues and also got Cepacol lozenges. She is on Coumadin, albuterol, DuoNebs, Flonase, insulin, Lasix, Mycelex Boyd, Phenergan, Protonix, Pulmicort, Rocephin, Solu-Medrol, which I will drop to 20, Synthroid and Zithromax. PHYSICAL EXAMINATION: VITAL SIGNS: She has a 97.9 temperature, 106/43 blood pressure, 65 pulse, oxygen saturation 100%. HEENT: Head is atraumatic, normocephalic. HEART: Regular rate. LUNGS: Decreased breath sounds. ABDOMEN: Morbidly obese. Soft, nontender. EXTREMITIES: No edema. SKIN: She has some skin issues going on. LABORATORY DATA: She has a 7 white count, 8.9 hemoglobin, 28.1 hematocrit with 210 platelets. She was transfused. I was hoping to get her above 10, it only went to 8.9. She also has 136 sodium, potassium is 3.3. I am going to give her more potassium, BUN 52, creatinine 2.3. I want a colon renal with acute kidney injury. GFR is 21, sugar is 228, total bili is 0.4, AST is 14, ALT is 24, alk phos 134, total protein is 5.6. ASSESSMENT AND PLAN: Negative for the flu. She has coag-negative staph in the thigh wound. She is also getting a potassium replacement and ENT evaluation. She is being seen by Pulmonary and Cardiology. She has acute bronchitis, advanced chronic obstructive pulmonary disease, asthma, anemia, and renal insufficiency. Alan Mann DO
--- NOTE | 2018-09-12 17:38 | CON ---
DATE: 09/12/2018 ONCOLOGY CONSULTATION HISTORY OF PRESENT ILLNESS: This is a 73-year-old woman, who has an elevated CA-19-9 and loss of weight. The patient used to be, I think, 566 pounds. Anyway, she is down to 350 and in working that up several months ago, they found the CA-19-9 from 65 range is now 85 range and the question is whether she had a pancreas cancer. She was not able to do an outpatient CAT scan, but now on this admission, her weight has gone down enough that they were able to do the CAT scan. The CAT scan is negative for any pancreatic masses or other masses on the CAT scan. ASSESSMENT AND PLAN: The patient has many medical problems. She is on oxygen. She really does not ambulate at all, as she has CHF. She has renal insufficiency. I spoke to the patient, the , and Dr. Mann who was present as well at the bedside and I explained that it is very hard to find a cancer of the pancreas. Often times appears we have done CAT scans, MRIs, PET scan on other patients and often times you cannot find it. Sometimes you have to do an exploratory laparoscopy in order to do biopsies of the pancreas and even then, it is not 100% at all. The problem here is that she is not able to do all these scans easily and PET scan, MRI, we will be able to get the CAT scan done and she is not a surgical candidate whatsoever and that is what is agreed upon by the patient, the as well as Dr. Mann. So, at this point, we really cannot pursue this diagnosis any further. From a practical point of view, she is being treated for many medical problems. She is on Coumadin, she is on various thyroid medicines, on diabetes medicines, CHF medicines, she is on about 17 medicines and I can see including insulin as well, albuterol. So, at this point, it was agreed upon by all that we would not, at this point, pursue the diagnosis of pancreas cancer. Furthermore the cure rate for this kind of a disease is very, very small, unless picked up very, very early at the head of the pancreas and we do not see that here. So, at this point, she is being treated for her medical problems. Wes Mae MD
[2018-09-13] MEDS: Albuterol-Ipratrop 3 mg / 0.5 (3 ml) UD IH SCH ×4 (03:08→19:47)
[2018-09-13] MEDS: Benzocaine/Menthol (Cepacol) Lozenge MT PRN ×2 (06:08→22:46)
[2018-09-13 07:28] LABS: MEAN CELL VOLUME 86.1 fl (80.0-105.0); MEAN CORPUSCULAR HEMOGLOBIN 27.1 pg (25.0-35.0); MEAN CORPUSCULAR HGB CONC 31.5 g/dl (31.0-37.0); MEAN PLATELET VOLUME 10.1 fl (7.0-11.0); RBC 3.32 10^6/uL (3.5-6.1); RED CELL DISTRIBUTION WIDTH 17.9 % (11.5-14.5); WHITE BLOOD COUNT 5.9 10^3/uL (4.5-11.0)
[2018-09-13 07:53] LABS: ALB/GLOB RATIO 1.1 (1.1-1.8); ALBUMIN 2.9 g/dL (3.0-4.8); CALCIUM 8.3 mg/dL (8.4-10.5)
[2018-09-13] MEDS: Budesonide 0.5 mg/2 ml Inhal Susp UD IH SCH ×2 (08:33→19:47)
[2018-09-13] MEDS: Pantoprazole 40 mg EC Tab PO SCH (08:34)
[2018-09-13] MEDS: Levothyroxine 25 MCG TAB PO SCH (08:34)
[2018-09-13] MEDS: Insulin Reg-MEDIUM-Coverage SC SCH ×4 (08:35→22:46)
--- NOTE | 2018-09-13 09:15 | PN ---
DATE: 09/13/2018 PULMONARY NOTE SUBJECTIVE: The patient appears comfortable this morning. She is not short of breath at rest. PHYSICAL EXAMINATION VITAL SIGNS: Temperature is 97.5, pulse on the monitor is 71, respiratory rate 18/20 and blood pressure 116/54. Oxygen saturation on nasal cannula is 98%. HEENT: Normocephalic and atraumatic. No JVD. CARDIOVASCULAR: Systolic ejection murmur at the lower left sternal border. No S3 gallop. LUNGS: Decreased breath sounds at the bases. Less rhonchi. No wheezing. EXTREMITIES: Mild edema. No cyanosis. No clubbing. Calves are nontender to palpation. GI: Abdomen is soft, nontender and nondistended. Bowel sounds are positive. SKIN: No acute rash. NEUROLOGIC: Exam limited at the present time. IMPRESSION: 1. Acute bronchitis. 2. Advanced chronic obstructive pulmonary disease. 3. Asthma. 4. Anemia. 5. Renal insufficiency. PLAN: The patient appears comfortable this morning. She is not short of breath at rest. She does state to feeling better overall. On physical exam, her bronchospasm is resolving. In addition, the alveolar-arterial gradient is also resolving. I will continue the current nebulizer treatments and low-dose intravenous steroids (decreased yesterday) for now. Hopefully, we can change to oral therapy in the next 24-48 hours. The patient remains on antibiotic therapy. There are no temperatures noted. There is no leukocytosis. Inputs by Infectious Disease, Oncology and Cardiology are also noted. Clinical status of the patient is significantly improved - compared to the initial presentation. However, given the above, the future status/prognosis for this patient remains very guarded. I will discuss the above the attending physician later this morning. Ke Farooq MD MTDD
[2018-09-13] MEDS: MethylPREDNISolone 40 mg Vial IVP SCH ×2 (09:17→22:48)
[2018-09-13] MEDS: cefTRIAXone 1 gm 1 GM/100 ML BAG IVPB SCH (09:18)
[2018-09-13] MEDS: Fluticasone Nasal 50 mcg/Spray NAS SCH (09:19)
--- NOTE | 2018-09-13 12:57 | CP.PCM.PN ---
Subjective - Date & Time of Evaluation Date of Evaluation: 09/13/18 Time of Evaluation: 11:10 - Subjective Subjective: Resting comfortably in bed, not short of breath at rest, still with some cough but slightly improving. No fevers overnight. Objective - Vital Signs/Intake and Output Vital Signs (last 24 hours): Temp Pulse Resp BP Pulse Ox 97.9 F 79 16 106/43 L 65 L 09/12/18 06:00 09/11/18 17:20 09/11/18 17:20 09/12/18 09:20 09/12/18 06:00 Intake and Output: 09/12/18 09/12/18 06:59 18:59 Intake Total 300 Output Total 1 Balance 299 - Medications Medications: Current Medications Albuterol/Ipratropium (Duoneb 3 Mg/0.5 Mg (3 Ml) Ud) 3 ml IH [id number] [facility] Last Admin: 09/12/18 13:49 Dose: 3 ml Albuterol/Ipratropium (Duoneb 3 Mg/0.5 Mg (3 Ml) Ud) 3 ml IH Q2H PRN PRN Reason: Shortness of Breath Azithromycin (Zithromax) 500 mg PO DAILY [facility] Last Admin: 09/12/18 09:23 Dose: 500 mg Benzocaine/Menthol (Cepacol Sore Throat) 1 rosa MT Q2H PRN PRN Reason: Sore Throat Budesonide (Pulmicort Respules) 0.5 mg IH [id number] [facility] Last Admin: 09/12/18 07:04 Dose: 0.5 mg Clotrimazole (Mycelex Boyd) 10 mg MT 5XD [facility] Last Admin: 09/12/18 14:43 Dose: 10 mg Fluticasone Propionate (Flonase) 1 actuation MARIAM DAILY [facility] Last Admin: 09/12/18 09:19 Dose: 1 spr Furosemide (Lasix) 40 mg IVP DAILY [facility] Last Admin: 09/12/18 09:20 Dose: 40 mg Ceftriaxone Sodium (Rocephin 1 Gram Ivpb) 1 gm in 100 mls @ 100 mls/hr IVPB DAILY [facility]; Protocol Stop: 09/15/18 10:01 Last Admin: 09/12/18 09:21 Dose: 100 mls/hr Insulin Human Regular (Humulin R Med) 0 units SC ACHS [facility]; Protocol Last Admin: 09/12/18 14:44 Dose: 7 u Levothyroxine Sodium (Synthroid) 25 mcg PO ACB [facility] Last Admin: 09/12/18 08:51 Dose: 25 mcg Methylprednisolone (Solu-Medrol) 30 mg IVP Q12 [facility] Last Admin: 09/12/18 14:43 Dose: 30 mg Pantoprazole Sodium (Protonix Ec Tab) 40 mg PO ACB [facility] Last Admin: 09/12/18 08:51 Dose: 40 mg Promethazine HCl/Dextromethorphan (Phenergan Dm Syrup) 5 ml PO Q6H PRN PRN Reason: Cough Last Admin: 09/11/18 17:47 Dose: 5 ml Warfarin Sodium (Coumadin) 3 mg PO DAILY [facility]; Protocol Last Admin: 09/12/18 09:19 Dose: 3 mg - Labs Labs: 09/12/18 07:25 09/12/18 07:25 PT 16.1 SECONDS (9.4-12.5) H 09/11/18 06:50 INR 1.42 09/11/18 06:50 - Constitutional Appears: Chronically Ill - Head Exam Head Exam: NORMAL INSPECTION - Respiratory Exam Respiratory Exam: Decreased Breath Sounds - Cardiovascular Exam Cardiovascular Exam: +S1, +S2 - GI/Abdominal Exam GI & Abdominal Exam: Soft. absent: Tenderness Assessment and Plan - Assessment and Plan (Free Text) Plan: Assessment consider acute bronchitis history of sepsis due to bilateral lower lobe HCAP history of Pseudomonas bilateral infected wound on lower extremities, S/P treatment with 16 days of antibiotics history of right thigh wound infection with ESBL-producing E. coli history of urinary tract infection COPD CHF morbid obesity with BMI 70 history of right leg surgery and breast surgery chronic ulcers on the lower extremities Plan continue Rocephin and Zithromax for 2-4 more days overall prognosis is poor
--- NOTE | 2018-09-13 14:21 | PN ---
DATE: 09/13/2018 SUBJECTIVE: She is in the ICU. She is on Cepacol, Coumadin, DuoNeb, Flonase, insulin, Lasix, Mycelex, Phenergan, Protonix, Pulmicort, Rocephin IV, Solu-Medrol down to 30 mg, Synthroid and Zithromax. PHYSICAL EXAMINATION VITAL SIGNS: She has a 97.5 temperature and 106/57 blood pressure. HEENT: Head is atraumatic and normocephalic. She is very lethargic. HEART: Regular rate. LUNGS: Decreased breath sounds. ABDOMEN: Morbidly obese, soft, and nontender. EXTREMITIES: Trace edema. LABORATORY DATA: She has a 5.9 white count, 9 hemoglobin, 28.6 hematocrit with 229 platelets. She has 136 sodium, potassium 3.7, BUN is 52, creatinine 2.1 little bitter, GFR is 23, sugar is 221, calcium is 8.3, total bilirubin is 0.4, AST is 10, ALT is 29 and alkaline phosphatase 130. Negative for the flu. She is being seen by Infectious Disease, Pulmonary, Oncology, and Cardiology. wants her on Rocephin and Zithromax for 3 to 5 days. We will work for discharge for tomorrow. She needs to get transportation. Pulmonary feels that she is ready to be discharge soon. Definitely improving, but still losing weight. She lost over 400 pounds in 3 and half months and the CAT scan of the chest, abdomen, and pelvis was negative, even though she has an elevated CA 99 CAT scan in next 2 to 3 months. We will start working for discharge tomorrow. I will talk with case folder on getting transportation. Alan Mann DO MTDD
--- NOTE | 2018-09-13 19:01 | PN ---
DATE: 09/13/2018 SUBJECTIVE: The patient is complaining of palpitations. No shortness of breath noted. PHYSICAL EXAMINATION: VITAL SIGNS: Stable. NECK: Negative JVD. LUNGS: Decreased breath sounds. HEART: Reveal S1, S2. EXTREMITIES: Chronic edema noted. LABORATORY: Hemoglobin is 9. Chemistries, BUN and creatinine 52 and 2.1 with a glucose of 222. IMPRESSION: 1. Chronic obstructive pulmonary disease. 2. Morbid obesity. 3. Chronic atrial fibrillation. 4. Diabetes mellitus. 5. Renal insufficiency. PLAN: Given these findings, we will replace her on telemetry monitoring, monitor for heart rate. Ryan Turk MD
[2018-09-13] MEDS ORDERED: Oxymetazoline 0.05% Nasal Spray (30 ml) NS SCH (22:00)
[2018-09-13] MEDS: Oxymetazoline 0.05% Nasal Spray (30 ml) NS SCH (22:44)
--- NOTE | 2018-09-13 23:01 | CON ---
DATE OF CONSULTATION: 09/13/2018 HISTORY OF PRESENT ILLNESS: Maria Isabel is a 73-year-old black female with a 1-month history of progressive hearing loss following an upper respiratory tract infection. The patient was recently admitted to [facility] with chronic obstructive pulmonary disease, morbid obesity and is physically unable to ambulate at the current time. The patient admits to long time steroid p.o. usage and has been placed on Flonase 2 sprays each nostril for the past several months with some relief and nasal congestion, but no relief of her current hearing loss, which she is experiencing bilaterally. The patient's medications includes albuterol. She is on Zithromax, benzocaine, budesonide, fluticasone, Lasix, insulin, Synthroid, Solu-Medrol, Protonix, Phenergan and Coumadin. PHYSICAL EXAMINATION: GENERAL: Revealed the patient to be alert and oriented x3. She was in no acute distress. HEENT: Ear examination revealed the external auditory canal to be patent bilaterally with evidence of air-fluid level noted bilaterally within the middle ear cavities. Intranasal examination revealed evidence of a deviated septum and some dry crusting with a nasal cannula present. Oropharyngeal exam was unremarkable and neck examination was unremarkable as well. IMPRESSION: This patient is suffering from otitis media with effusion bilaterally following an upper respiratory tract infection. The patient is currently on Flonase, which should be continued in addition to add Afrin 2 sprays each nostril twice a day for 5 days. The patient is currently on oral steroids. We would need to perform an audio minimally tympanogram, but due to the social logistics of transportation of this patient, it poses some challenges. We will attempt to have sas developer analyst stop by tomorrow to perform minimally bedside tympanometry to confirm the presence of fluid bilaterally. Should the patient not respond to the nasal sprays, then she may be a candidate for a bilateral myringotomy with insertion of ventilation tubes. This will all be predicated on only a positive audio-tympanometry confirming the presence of fluid. If you have any further questions regarding the care of this patient, feel free to contact my office. Thank you for allowing us to participate in the care of this patient. Leon Hodgson DO
[2018-09-14] MEDS: Albuterol-Ipratrop 3 mg / 0.5 (3 ml) UD IH SCH ×4 (02:25→20:52)
[2018-09-14 07:03] LABS: HEMOGLOBIN 8.8 g/dL (12.0-16.0); MEAN CELL VOLUME 86.3 fl (80.0-105.0); MEAN CORPUSCULAR HEMOGLOBIN 27.5 pg (25.0-35.0); MEAN CORPUSCULAR HGB CONC 31.9 g/dl (31.0-37.0); MEAN PLATELET VOLUME 9.5 fl (7.0-11.0); RBC 3.2 10^6/uL (3.5-6.1); RED CELL DISTRIBUTION WIDTH 17.9 % (11.5-14.5); WHITE BLOOD COUNT 7.5 10^3/uL (4.5-11.0)
[2018-09-14 07:37] LABS: ALB/GLOB RATIO 1.1 (1.1-1.8); ALBUMIN 2.8 g/dL (3.0-4.8); CALCIUM 8.1 mg/dL (8.4-10.5)
[2018-09-14] MEDS: Budesonide 0.5 mg/2 ml Inhal Susp UD IH SCH ×2 (08:19→20:51)
[2018-09-14] MEDS: Insulin Reg-MEDIUM-Coverage SC SCH ×2 (08:30→22:14)
[2018-09-14] MEDS: cefTRIAXone 1 gm 1 GM/100 ML BAG IVPB SCH (10:56)
[2018-09-14] MEDS: Oxymetazoline 0.05% Nasal Spray (30 ml) NS SCH ×2 (10:57→21:34)
[2018-09-14] MEDS: Levothyroxine 25 MCG TAB PO SCH ×2 (10:59→11:00)
[2018-09-14] MEDS: Benzocaine/Menthol (Cepacol) Lozenge MT PRN (10:59)
[2018-09-14] MEDS: Pantoprazole 40 mg EC Tab PO SCH (11:00)
--- NOTE | 2018-09-14 11:40 | CP.PCM.CON ---
<PauletteMacho - Last Filed: 09/14/18 11:37> History of Present Illness - History of Present Illness History of Present Illness: Podiatry consult note - Drs. Hsieh/Rupa 73F with pmhx of COPD, CHF, morbid obesity with BMI 46, history of right leg surgery and breast surgery, chronic ulcers on the lower extremities seen and evaluated in ICU at bedside for elongated nails. States that she missed her appointment because she was in the hospital with her stator winder for her nail cutting. States she is having some pain in her nails. Denies N/V/F/C/SOB/CP but reports a cough today. PMHx: above PSHx: unknown All: NKDA Past Patient History - Infectious Disease Hx of Infectious Diseases: None - Tetanus Immunizations Tetanus Immunization: Unknown - Past Social History Smoking Status: Never Smoked - CARDIAC Hx Cardiac Disorders: Yes (palpitations, afib) Hx Angina: Yes Hx Cardia Arrhythmia: Yes Hx Congestive Heart Failure: Yes Hx Hypotension: Yes Hx Pacemaker: No Hx Peripheral Edema: Yes (ble +4 pitting) Hx Peripheral Vascular Disease: Yes (lymphadema) - PULMONARY Hx Respiratory Disorders: Yes (using 02 at home/ nebulizer machine) Hx Asthma: Yes Hx Chronic Obstructive Pulmonary Disease (COPD): Yes Hx Emphysema: Yes Hx Pneumonia: Yes - NEUROLOGICAL Hx Neurological Disorder: No - HEENT Hx HEENT Problems: Yes (glasses) Other/Comment: thrush to oral cavity and tongue - RENAL Hx Chronic Kidney Disease: No - ENDOCRINE/METABOLIC Hx Endocrine Disorders: Yes Hx Diabetes Mellitus Type 2: Yes - HEMATOLOGICAL/ONCOLOGICAL Hx Blood Disorders: Yes (septicemia) Hx Anemia: Yes - INTEGUMENTARY Hx Dermatological Problems: Yes (chronic venous stasis dermatitis ble) Other/Comment: pt is obese, right outer thigh skin openings healed, redness, hard brown dry skin, dimpling to left thigh, pt c/o that she, sometimes has drainage from left thigh. both lower legs and feet dry skin. redness and discoloration to right abd fold healed, ble +4 pitting edema & brown discolored dry skin, dry skin and toenails both feet, multiple healing unmeasurable wounds to b/l buttocks, irregular wound left buttock red, multiple wounds in various stages of healing to entire abd, multiple areas of red foul smelling and draining light green purulent drainage wounds to upper and lower abd, discolored brown skin to abd, healing wounds to b/l thighs - MUSCULOSKELETAL/RHEUMATOLOGICAL Hx Falls: No - GASTROINTESTINAL Hx Gastrointestinal Disorders: Yes (benign mass removed from abd 30 yrs ago) Other/Comment: morbid obesity, blood in stool - GENITOURINARY/GYNECOLOGICAL Hx Genitourinary Disorders: Yes Hx Hematuria: Yes Hx Incontinence: Yes (urine and stool) Hx Urinary Tract Infection: Yes - PSYCHIATRIC Hx Psychophysiologic Disorder: No Hx Substance Use: No - SURGICAL HISTORY Hx Cardiac Catheterization: Yes Hx Mastectomy: No Other/Comment: benign mass removed from abd over 30 yrs ago - ANESTHESIA Hx Anesthesia: Yes Meds Allergies/Adverse Reactions: Allergies Allergy/AdvReac Type Severity Reaction Status Date / Time No Known Allergies Allergy Verified 07/10/18 04:46 - Medications Medications: Current Medications Albuterol/Ipratropium (Duoneb 3 Mg/0.5 Mg (3 Ml) Ud) 3 ml IH [id number] [facility] Last Admin: 09/14/18 08:18 Dose: 3 ml Albuterol/Ipratropium (Duoneb 3 Mg/0.5 Mg (3 Ml) Ud) 3 ml IH Q2H PRN PRN Reason: Shortness of Breath Last Admin: 09/13/18 09:19 Dose: 3 ml Alprazolam (Xanax) 0.25 mg PO TID PRN; Protocol PRN Reason: Restlessness Stop: 09/21/18 08:46 Last Admin: 09/14/18 10:56 Dose: 0.25 mg Azithromycin (Zithromax) 500 mg PO DAILY [facility] Last Admin: 09/14/18 10:56 Dose: 500 mg Benzocaine/Menthol (Cepacol Sore Throat) 1 rosa MT Q2H PRN PRN Reason: Sore Throat Last Admin: 09/14/18 10:59 Dose: 1 rosa Budesonide (Pulmicort Respules) 0.5 mg IH [id number] [facility] Last Admin: 09/14/18 08:19 Dose: 0.5 mg Clotrimazole (Mycelex Boyd) 10 mg MT 5XD [facility] Last Admin: 09/14/18 11:19 Dose: Not Given Fluticasone Propionate (Flonase) 1 actuation MARIAM DAILY [facility] Last Admin: 09/13/18 09:19 Dose: 1 spr Furosemide (Lasix) 40 mg IVP DAILY [facility] Last Admin: 09/14/18 08:42 Dose: 40 mg Ceftriaxone Sodium (Rocephin 1 Gram Ivpb) 1 gm in 100 mls @ 100 mls/hr IVPB DAILY [facility]; Protocol Stop: 09/15/18 10:01 Last Admin: 09/14/18 10:56 Dose: 100 mls/hr Insulin Human Regular (Humulin R Med) 0 units SC ACHS [facility]; Protocol Last Admin: 09/13/18 22:46 Dose: Not Given Levothyroxine Sodium (Synthroid) 25 mcg PO ACB [facility] Last Admin: 09/14/18 11:00 Dose: 25 mcg Oxymetazoline HCl (Afrin 0.05%) 1 ml NS Q12 [facility] Stop: 09/18/18 22:01 Last Admin: 09/14/18 10:57 Dose: 1 spr Pantoprazole Sodium (Protonix Ec Tab) 40 mg PO ACB [facility] Last Admin: 09/14/18 11:00 Dose: 40 mg Prednisone (Prednisone Tab) 40 mg PO DAILY [facility] Last Admin: 09/14/18 10:56 Dose: 40 mg Promethazine HCl/Dextromethorphan (Phenergan Dm Syrup) 5 ml PO Q6H PRN PRN Reason: Cough Last Admin: 09/11/18 17:47 Dose: 5 ml Warfarin Sodium (Coumadin) 4 mg PO DAILY [facility]; Protocol Physical Exam - Constitutional Appears: Non-toxic - Head Exam Head Exam: NORMOCEPHALIC - Extremities Exam Additional comments: LE focused exam: Vascular: DP/PT nonpalpable, CFT < 3 seconds to all digits, pedal hair diminished, +3 pitting edema noted to b/l lower extremities Ortho: tenderness on palpation to all toes and foot. Neuro: Gross sensation intact, unable to assess for protective sensation Derm: Elongated, mycotic, dystrophic nails x10. no IDM, no open lesions, no clinical signs of infection. - Neurological Exam Neurological exam: Alert - Psychiatric Exam Psychiatric exam: Normal Affect, Normal Mood Results - Vital Signs Recent Vital Signs: Last Vital Signs Temp 98 F 09/14/18 06:00 Pulse 74 09/14/18 08:36 Resp 26 H 09/14/18 08:36 BP 98/60 L 09/14/18 08:42 Pulse Ox 96 09/13/18 12:00 - Labs Result Diagrams: 09/14/18 06:35 09/14/18 06:35 Labs: Laboratory Results - last 24 hr 09/13/18 09/13/18 09/14/18 16:25 21:30 06:35 WBC 7.5 D RBC 3.20 L Hgb 8.8 L Hct 27.6 L MCV 86.3 MCH 27.5 MCHC 31.9 RDW 17.9 H Plt Count 223 MPV 9.5 Sodium Potassium Chloride Carbon Dioxide Anion Gap BUN Creatinine Est GFR ( Amer) Est GFR (Non-Af Amer) POC Glucose (mg/dL) 259 H 274 H Random Glucose Calcium Total Bilirubin AST ALT Alkaline Phosphatase Total Protein Albumin Globulin Albumin/Globulin Ratio 09/14/18 09/14/18 06:35 08:06 WBC RBC Hgb Hct MCV MCH MCHC RDW Plt Count MPV Sodium 137 Potassium 3.7 Chloride 98 Carbon Dioxide 32 Anion Gap 11 BUN 50 H Creatinine 2.1 H Est GFR ( Amer) 28 Est GFR (Non-Af Amer) 23 POC Glucose (mg/dL) 251 H Random Glucose 246 H Calcium 8.1 L Total Bilirubin 0.5 AST 14 D ALT 23 Alkaline Phosphatase 148 H Total Protein 5.5 L Albumin 2.8 L Globulin 2.7 Albumin/Globulin Ratio 1.1 Assessment & Plan - Assessment and Plan (Free Text) Assessment: 73 with elongated dystrophic painful nails Plan: Patient seen and evaluated Patient plan discussed in detail with Dr. Goode Afebrile/Absent leukocytosis Elongated, dystrophic nails debrided with a large nail nipper to patient tolerance without incident. Right fourth digit nail was loose and fell off on its own, instructed nurse to apply bactroban and a band-aid daily Podiatry to sign off at this time Thank you for the consult - Date & Time Date: 09/14/18 Time: 11:41 <Dionicio Goode - Last Filed: 09/14/18 19:11> Meds - Medications Medications: Current Medications Albuterol/Ipratropium (Duoneb 3 Mg/0.5 Mg (3 Ml) Ud) 3 ml IH [id number] [facility] Last Admin: 09/14/18 14:24 Dose: 3 ml Albuterol/Ipratropium (Duoneb 3 Mg/0.5 Mg (3 Ml) Ud) 3 ml IH Q2H PRN PRN Reason: Shortness of Breath Last Admin: 09/13/18 09:19 Dose: 3 ml Alprazolam (Xanax) 0.25 mg PO TID PRN; Protocol PRN Reason: Restlessness Stop: 09/21/18 08:46 Last Admin: 09/14/18 10:56 Dose: 0.25 mg Azithromycin (Zithromax) 500 mg PO DAILY [facility] Last Admin: 09/14/18 10:56 Dose: 500 mg Benzocaine/Menthol (Cepacol Sore Throat) 1 rosa MT Q2H PRN PRN Reason: Sore Throat Last Admin: 09/14/18 10:59 Dose: 1 rosa Budesonide (Pulmicort Respules) 0.5 mg IH [id number] [facility] Last Admin: 09/14/18 08:19 Dose: 0.5 mg Clotrimazole (Mycelex Boyd) 10 mg MT 5XD [facility] Last Admin: 09/14/18 11:19 Dose: Not Given Fluticasone Propionate (Flonase) 1 actuation MARIAM DAILY [facility] Last Admin: 09/13/18 09:19 Dose: 1 spr Furosemide (Lasix) 40 mg IVP DAILY [facility] Last Admin: 09/14/18 08:42 Dose: 40 mg Insulin Human Regular (Humulin R Med) 0 units SC ACHS [facility]; Protocol Last Admin: 09/14/18 08:30 Dose: Not Given Levothyroxine Sodium (Synthroid) 25 mcg PO ACB [facility] Last Admin: 09/14/18 11:00 Dose: 25 mcg Mupirocin (Bactroban Ointment) 1 gm TOP BID [facility] Oxymetazoline HCl (Afrin 0.05%) 1 ml NS Q12 [facility] Stop: 09/18/18 22:01 Last Admin: 09/14/18 10:57 Dose: 1 spr Pantoprazole Sodium (Protonix Ec Tab) 40 mg PO ACB [facility] Last Admin: 09/14/18 11:00 Dose: 40 mg Prednisone (Prednisone Tab) 40 mg PO DAILY [facility] Last Admin: 09/14/18 10:56 Dose: 40 mg Promethazine HCl/Dextromethorphan (Phenergan Dm Syrup) 5 ml PO Q6H PRN PRN Reason: Cough Last Admin: 09/11/18 17:47 Dose: 5 ml Warfarin Sodium (Coumadin) 4 mg PO DAILY [facility]; Protocol Results - Vital Signs Recent Vital Signs: Last Vital Signs Temp 98 F 09/14/18 06:00 Pulse 79 09/14/18 12:41 Resp 45 H 09/14/18 12:41 BP 89/44 L 09/14/18 12:00 Pulse Ox 95 09/14/18 12:00 - Labs Result Diagrams: 09/14/18 06:35 09/14/18 06:35 Labs: Laboratory Results - last 24 hr 09/13/18 09/14/18 09/14/18 21:30 06:35 06:35 WBC 7.5 D RBC 3.20 L Hgb 8.8 L Hct 27.6 L MCV 86.3 MCH 27.5 MCHC 31.9 RDW 17.9 H Plt Count 223 MPV 9.5 Sodium 137 Potassium 3.7 Chloride 98 Carbon Dioxide 32 Anion Gap 11 BUN 50 H Creatinine 2.1 H Est GFR ( Amer) 28 Est GFR (Non-Af Amer) 23 POC Glucose (mg/dL) 274 H Random Glucose 246 H Calcium 8.1 L Total Bilirubin 0.5 AST 14 D ALT 23 Alkaline Phosphatase 148 H Total Protein 5.5 L Albumin 2.8 L Globulin 2.7 Albumin/Globulin Ratio 1.1 09/14/18 09/14/18 09/14/18 08:06 11:25 15:57 WBC RBC Hgb Hct MCV MCH MCHC RDW Plt Count MPV Sodium Potassium Chloride Carbon Dioxide Anion Gap BUN Creatinine Est GFR ( Amer) Est GFR (Non-Af Amer) POC Glucose (mg/dL) 251 H 253 H 310 H Random Glucose Calcium Total Bilirubin AST ALT Alkaline Phosphatase Total Protein Albumin Globulin Albumin/Globulin Ratio 09/14/18 15:59 WBC RBC Hgb Hct MCV MCH MCHC RDW Plt Count MPV Sodium Potassium Chloride Carbon Dioxide Anion Gap BUN Creatinine Est GFR ( Amer) Est GFR (Non-Af Amer) POC Glucose (mg/dL) 274 H Random Glucose Calcium Total Bilirubin AST ALT Alkaline Phosphatase Total Protein Albumin Globulin Albumin/Globulin Ratio Attending/Attestation - Attestation I have personally seen and examined this patient.: Yes I have fully participated in the care of the patient.: Yes I have reviewed all pertinent clinical information: Yes
--- NOTE | 2018-09-14 12:14 | PN ---
DATE: 09/14/2018 SUBJECTIVE: The patient appears quite comfortable this morning. She is not short of breath at rest. PHYSICAL EXAMINATION: VITAL SIGNS: Temperature is 97.6, pulse on the monitor is 81, respiratory rate 18, last blood pressure recorded in the chart - 98/43. Oxygen saturation on nasal cannula is 98%. HEENT: Normocephalic, atraumatic. No JVD. CARDIOVASCULAR: Systolic ejection murmur at the lower left sternal border. No S3 gallop. LUNGS: Decreased breath sounds at the bases. Very minimal/less rhonchi. No wheezing. EXTREMITIES: Mild edema. No cyanosis, no clubbing. Calves are nontender to palpation. GASTROINTESTINAL: Abdomen is soft, nontender and nondistended. Bowel sounds are positive. SKIN: No acute rash. NEUROLOGIC: Exam limited at the present time. IMPRESSION: 1. Acute bronchitis. 2. Advanced chronic obstructive pulmonary disease. 3. Asthma. 4. Anemia. 5. Renal insufficiency. PLAN: The patient appears very comfortable this morning. She is not short of breath at rest. She does state to feeling better overall. On physical exam, her bronchospasm continues to resolve. In addition, the alveolar-arterial gradient also continues to resolve. I will continue the current nebulizer treatments and change to oral steroids this morning. The patient remains on antibiotic therapy - as per Infectious Disease. There are no temperatures noted. There is no leukocytosis. Input by Cardiology (Dr. Turk) is also noted. Clinical status of the patient is significantly improved - compared to the initial presentation. However, again, the future status/prognosis for this patient remains poor overall. I will discuss the above with Dr. Mann. Ke Farooq MD MTDVivien
--- NOTE | 2018-09-14 12:25 | PN ---
DATE: 09/14/2018 SUBJECTIVE: She is in Intensive Care Unit. She is with her . I am watching her right now on the monitor, oxygen saturation is 80% on 6 liters. She does not want the BiPAP, told by the content strategist that is because they do not have the good reading of her oxygen from the pulse oximeter. Yet to look at her, she is short of breath, I will give her Lasix 40 IV now, they said all night her oxygen saturation was 100%, they said I could discharge her, I am hoping oxygen saturation up on 6 liters. We will also trying to get her [facility] for subacute rehab before she goes home. She is a patient of 715 pounds about 4 months ago, now she is 315 pounds. We told we are going to find cancer on her. The chest, abdomen, and pelvis CAT scans were negative. Her CA-99 is still very high. I there is cancer somewhere, but we did not find it. She still has no appetite whatsoever. She is very weak. ENT came in and said she got fluid in her ears. She was put on Afrin, Cepacol. She is on Coumadin, DuoNebs, Flonase, insulin, Lasix, Mycelex, Phenergan, Prednisone, Protonix, Pulmicort, Rocephin IV, Synthroid, Xanax and Zithromax. PHYSICAL EXAMINATION: VITAL SIGNS: Temperature 97.6, 74 pulse, 98/60 blood pressure, 26 respiratory rate. They told me all night, she has a sat at 100 and when I walked into the room, she was sating at 80, pulmonary said she is fine. She was on Afrin, Cepacol, Coumadin, and DuoNebs same medications. LABORATORY DATA: She has 7.5 white count; hemoglobin is 8.8, this is after transfusion; hematocrit 27.6; platelets 223. INR is up to 1.42, I will increase the Coumadin. She has a 137 sodium, potassium 3.7, BUN is 55, creatinine 2.1, GFR is 23, sugar is 251, calcium is 8.1, total bili is 0.4, AST is 14, ALT is 23, alkaline phosphatase 148. Negative for the flu. She is being seen by ENT, Cardiology, Infectious Disease, Pulmonary, Oncology, Hematology. IMPRESSION AND PLAN: I am trying to get her to [facility] for physical therapy. She has chronic obstructive pulmonary disease, morbid obesity, chronic atrial fibrillation, diabetes mellitus, renal insufficiency, elevated CA-99 and I am hoping to go subacute rehab at [facility] before she goes home. I will discharge her once get okay from social work case manager and case management. Alan Mann DO MTDD
--- NOTE | 2018-09-14 13:38 | PN ---
DATE: 09/14/2018 SUBJECTIVE: The patient is comfortable without shortness of breath. OBJECTIVE: VITAL SIGNS: Stable, heart rate is atrial fibrillation in the 60-70s. NECK: Negative JVD. LUNGS: Decreased breath sounds. HEART: S1, S2. EXTREMITIES: Marked chronic edema. LABORATORY DATA: Reviewed. IMPRESSION: 1. Her palpitations were from her atrial fibrillation, I have discussed this with the family. Her heart rate is well-controlled. 2. Chronic obstructive pulmonary disease. 3. Pulmonary hypertension. 4. Morbid obesity. Given these findings, the patient from a cardiac perspective can be transferred back to rehab center. Ryan Turk MD
--- NOTE | 2018-09-14 15:22 | CP.PCM.PN ---
Subjective - Date & Time of Evaluation Date of Evaluation: 09/14/18 Time of Evaluation: 14:50 - Subjective Subjective: No fevers, not in distress at rest. Objective - Vital Signs/Intake and Output Vital Signs (last 24 hours): Temp Pulse Resp BP Pulse Ox 97.5 F L 79 16 106/57 L 51 L 09/12/18 22:00 09/11/18 17:20 09/11/18 17:20 09/13/18 09:17 09/12/18 08:33 Intake and Output: 09/13/18 09/13/18 06:59 18:59 Intake Total 150 Balance 150 - Medications Medications: Current Medications Albuterol/Ipratropium (Duoneb 3 Mg/0.5 Mg (3 Ml) Ud) 3 ml IH [id number] [facility] Last Admin: 09/13/18 08:33 Dose: Not Given Albuterol/Ipratropium (Duoneb 3 Mg/0.5 Mg (3 Ml) Ud) 3 ml IH Q2H PRN PRN Reason: Shortness of Breath Last Admin: 09/13/18 09:19 Dose: 3 ml Azithromycin (Zithromax) 500 mg PO DAILY [facility] Last Admin: 09/13/18 09:18 Dose: 500 mg Benzocaine/Menthol (Cepacol Sore Throat) 1 rosa MT Q2H PRN PRN Reason: Sore Throat Last Admin: 09/13/18 06:08 Dose: 1 rosa Budesonide (Pulmicort Respules) 0.5 mg IH [id number] [facility] Last Admin: 09/13/18 08:33 Dose: Not Given Clotrimazole (Mycelex Boyd) 10 mg MT 5XD [facility] Last Admin: 09/13/18 09:17 Dose: Not Given Fluticasone Propionate (Flonase) 1 actuation [facility] DAILY [facility] Last Admin: 09/13/18 09:19 Dose: 1 spr Furosemide (Lasix) 40 mg IVP DAILY [facility] Last Admin: 09/13/18 09:17 Dose: 40 mg Ceftriaxone Sodium (Rocephin 1 Gram Ivpb) 1 gm in 100 mls @ 100 mls/hr IVPB DAILY [facility]; Protocol Stop: 09/15/18 10:01 Last Admin: 09/13/18 09:18 Dose: 100 mls/hr Insulin Human Regular (Humulin R Med) 0 units SC ACHS [facility]; Protocol Last Admin: 09/13/18 12:36 Dose: 3 units Levothyroxine Sodium (Synthroid) 25 mcg PO ACB [facility] Last Admin: 09/13/18 08:34 Dose: 25 mcg Methylprednisolone (Solu-Medrol) 30 mg IVP Q12 [facility] Last Admin: 09/13/18 09:17 Dose: 30 mg Pantoprazole Sodium (Protonix Ec Tab) 40 mg PO ACB [facility] Last Admin: 09/13/18 08:34 Dose: 40 mg Promethazine HCl/Dextromethorphan (Phenergan Dm Syrup) 5 ml PO Q6H PRN PRN Reason: Cough Last Admin: 09/11/18 17:47 Dose: 5 ml Warfarin Sodium (Coumadin) 3 mg PO DAILY [facility]; Protocol Last Admin: 09/13/18 09:17 Dose: 3 mg - Labs Labs: 09/13/18 06:50 09/13/18 06:50 PT 16.1 SECONDS (9.4-12.5) H 09/11/18 06:50 INR 1.42 09/11/18 06:50 - Constitutional Appears: Chronically Ill - Head Exam Head Exam: NORMAL INSPECTION - Respiratory Exam Respiratory Exam: Decreased Breath Sounds - Cardiovascular Exam Cardiovascular Exam: +S1, +S2 - GI/Abdominal Exam GI & Abdominal Exam: Soft. absent: Tenderness Assessment and Plan - Assessment and Plan (Free Text) Plan: Assessment consider acute bronchitis history of sepsis due to bilateral lower lobe HCAP history of Pseudomonas bilateral infected wound on lower extremities, S/P treatment with 16 days of antibiotics history of right thigh wound infection with ESBL-producing E. coli history of urinary tract infection COPD CHF morbid obesity with BMI 70 history of right leg surgery and breast surgery chronic ulcers on the lower extremities Plan continue Rocephin and Zithromax for 1-3 more days (including today's doses for the 1-3 days) overall prognosis is poor
[2018-09-15] MEDS: Albuterol-Ipratrop 3 mg / 0.5 (3 ml) UD IH SCH ×4 (03:13→20:40)
[2018-09-15 06:25] LABS: HEMOGLOBIN 9.1 g/dL (12.0-16.0); MEAN CELL VOLUME 87.3 fl (80.0-105.0); MEAN CORPUSCULAR HEMOGLOBIN 27.5 pg (25.0-35.0); MEAN CORPUSCULAR HGB CONC 31.5 g/dl (31.0-37.0); MEAN PLATELET VOLUME 9.5 fl (7.0-11.0); RBC 3.31 10^6/uL (3.5-6.1); RED CELL DISTRIBUTION WIDTH 18.2 % (11.5-14.5); WHITE BLOOD COUNT 7.4 10^3/uL (4.5-11.0)
[2018-09-15 07:10] LABS: ALB/GLOB RATIO 1.1 (1.1-1.8); ALBUMIN 2.9 g/dL (3.0-4.8); CALCIUM 8.5 mg/dL (8.4-10.5)
[2018-09-15] MEDS: Budesonide 0.5 mg/2 ml Inhal Susp UD IH SCH ×2 (07:21→20:40)
[2018-09-15] MEDS: Insulin Reg-MEDIUM-Coverage SC SCH ×4 (09:03→22:15)
[2018-09-15] MEDS: Pantoprazole 40 mg EC Tab PO SCH (09:03)
[2018-09-15] MEDS: Levothyroxine 25 MCG TAB PO SCH (09:03)
[2018-09-15] MEDS: Oxymetazoline 0.05% Nasal Spray (30 ml) NS SCH (10:44)
[2018-09-15] MEDS: Promethazine DM 6.25 mg-15 mg/5 ml Syrup PO PRN (10:44)
[2018-09-15] MEDS: Fluticasone Nasal 50 mcg/Spray NAS SCH (10:44)
[2018-09-15] MEDS: cefTRIAXone 1 gm 1 GM/100 ML BAG IVPB SCH (10:45)
[2018-09-15] MEDS: Mupirocin 2% Ointment 15 GM TUBE TOP SCH ×2 (10:51→17:17)
--- NOTE | 2018-09-15 14:43 | CP.PCM.PN ---
Subjective - Date & Time of Evaluation Date of Evaluation: 09/15/18 Time of Evaluation: 13:10 - Subjective Subjective: Still having cough, appetite is a little less today, no diarrhea, no fevers. Objective - Vital Signs/Intake and Output Vital Signs (last 24 hours): Temp Pulse Resp BP Pulse Ox 98.3 F 90 18 98/50 L 95 09/15/18 06:00 09/15/18 06:00 09/15/18 06:00 09/15/18 10:44 09/15/18 06:00 Intake and Output: 09/15/18 09/15/18 06:59 18:59 Intake Total 120 Balance 120 - Medications Medications: Current Medications Albuterol/Ipratropium (Duoneb 3 Mg/0.5 Mg (3 Ml) Ud) 3 ml IH [id number] [facility] Last Admin: 09/15/18 13:15 Dose: Not Given Albuterol/Ipratropium (Duoneb 3 Mg/0.5 Mg (3 Ml) Ud) 3 ml IH Q2H PRN PRN Reason: Shortness of Breath Last Admin: 09/13/18 09:19 Dose: 3 ml Alprazolam (Xanax) 0.25 mg PO TID PRN; Protocol PRN Reason: Restlessness Stop: 09/21/18 08:46 Last Admin: 09/14/18 10:56 Dose: 0.25 mg Azithromycin (Zithromax) 500 mg PO DAILY [facility] Last Admin: 09/15/18 11:34 Dose: Not Given Benzocaine/Menthol (Cepacol Sore Throat) 1 rosa MT Q2H PRN PRN Reason: Sore Throat Last Admin: 09/14/18 10:59 Dose: 1 rosa Budesonide (Pulmicort Respules) 0.5 mg IH [id number] [facility] Last Admin: 09/15/18 07:21 Dose: 0.5 mg Clotrimazole (Mycelex Boyd) 10 mg MT 5XD [facility] Last Admin: 09/15/18 14:24 Dose: 10 mg Fluticasone Propionate (Flonase) 1 actuation MARIAM DAILY [facility] Last Admin: 09/15/18 10:44 Dose: 1 spr Furosemide (Lasix) 40 mg IVP DAILY [facility] Last Admin: 09/15/18 10:44 Dose: Not Given Ceftriaxone Sodium (Rocephin 1 Gram Ivpb) 1 gm in 100 mls @ 100 mls/hr IVPB DAILY [facility]; Protocol Last Admin: 09/15/18 10:45 Dose: 100 mls/hr Insulin Human Regular (Humulin R Med) 0 units SC ACHS [facility]; Protocol Last Admin: 09/15/18 12:03 Dose: 7 units Levothyroxine Sodium (Synthroid) 25 mcg PO ACB [facility] Last Admin: 09/15/18 09:03 Dose: 25 mcg Mupirocin (Bactroban Ointment) 1 gm TOP BID [facility] Oxymetazoline HCl (Afrin 0.05%) 1 ml NS Q12 [facility] Stop: 09/18/18 22:01 Last Admin: 09/15/18 10:44 Dose: 2 spr Pantoprazole Sodium (Protonix Ec Tab) 40 mg PO ACB [facility] Last Admin: 09/15/18 09:03 Dose: 40 mg Prednisone (Prednisone Tab) 30 mg PO DAILY [facility] Promethazine HCl/Dextromethorphan (Phenergan Dm Syrup) 5 ml PO Q6H PRN PRN Reason: Cough Last Admin: 09/15/18 10:44 Dose: 5 ml Warfarin Sodium (Coumadin) 4 mg PO DAILY [facility]; Protocol Last Admin: 09/15/18 11:34 Dose: Not Given - Labs Labs: 09/15/18 05:50 09/15/18 05:50 PT 16.1 SECONDS (9.4-12.5) H 09/11/18 06:50 INR 1.42 09/11/18 06:50 - Constitutional Appears: Chronically Ill - Head Exam Head Exam: NORMAL INSPECTION - Neck Exam Neck Exam: absent: Meningismus - Respiratory Exam Respiratory Exam: Decreased Breath Sounds - Cardiovascular Exam Cardiovascular Exam: +S1, +S2 - GI/Abdominal Exam GI & Abdominal Exam: Soft. absent: Tenderness Assessment and Plan - Assessment and Plan (Free Text) Plan: Assessment consider acute bronchitis history of sepsis due to bilateral lower lobe HCAP history of Pseudomonas bilateral infected wound on lower extremities, S/P treatment with 16 days of antibiotics history of right thigh wound infection with ESBL-producing E. coli history of urinary tract infection COPD CHF morbid obesity with BMI 70 history of right leg surgery and breast surgery chronic ulcers on the lower extremities Plan continue Rocephin and Zithromax for 1-2 more days (including today's doses) overall prognosis is poor
--- NOTE | 2018-09-15 15:01 | PN ---
DATE: 09/15/2018 SUBJECTIVE: The patient is coughing consistent with her bronchitis. PHYSICAL EXAMINATION: VITAL SIGNS: Stable. Heart rate is atrial fibrillation in the 70s. NECK: Negative JVD. LUNGS: Decreased breath sounds. HEART: S1 and S2. EXTREMITIES: Without edema. LABORATORY DATA: Reviewed. IMPRESSION: 1. Bronchitis. 2. Chronic obstructive pulmonary disease. 3. Atrial fibrillation. 4. Morbid obesity. PLAN: Given these findings, we will continue bronchodilation and chest PT. Ryan Turk MD
--- NOTE | 2018-09-15 16:17 | PN ---
DATE: 09/15/2018 SUBJECTIVE: I came in this morning to discharge her. She is all dressed with her home clothes. The is ready to take her home and now she is wheezing this morning in bed, does not feel up to going home. I explained to her that she is saturating at 100%, her vitals are very good, her blood tests are good. PHYSICAL EXAMINATION: GENERAL: She has a 98.3 temperature, 90 pulse, 98/42 blood pressure, 18 respirations, and 95% O2 sat on 3 liters; it was 100% about an hour earlier on 3 liters. HEENT: Head is atraumatic, normocephalic. HEART: Regular rate. LUNGS: Decreased breath sounds, clear at this time. ABDOMEN: Soft, morbidly obese. EXTREMITIES: There is edema, +4/4 but good for her. LABORATORY DATA: She has a 7.4 white count, 9.1 hemoglobin, 28.9 hematocrit with 226 platelets. INR is up to 1.42, 137 sodium, potassium 3.8, BUN 51, creatinine 2.1, GFR is 23, sugars 341, total bilirubin is 0.5, AST is 20, ALT is 30. alk phos is 183, total protein is 5.5. ASSESSMENT AND PLAN: I wrote out all her prescriptions. I had all set up to be discharged today and she is refusing to go. There is also an appeal by the , waiting for the appeal to come back. As I tried to discharge her yesterday and the appealed the discharge. I do think she should go. They are not wanting to go, so we want to wait for the appeal. We will wait for the appeal, continue with aggressive treatment and care and decrease down her medications and hopefully she will improve. Alan Mann DO
--- NOTE | 2018-09-15 20:04 | DS ---
HISTORY OF PRESENT ILLNESS: I saw her in the Intensive Care Unit, bed 4 with her present and the nurse. She is being discharged today. She has been through a lot since she has been here. We tried to discharge her last night, but the could not get her home, he did not have any clothes for her and it is very cold outside at 10 degrees. He ordered an appeal because he felt we were pushing her out, so we said we could discharge her today now that he got her clothes. She has COPD. She has CHF, anemia, ileus, she had a high CA19-9. She is doing much better now. Her oxygen saturation is at 100%. PHYSICAL EXAMINATION: VITAL SIGNS: 98.3 temperature, 90 pulse, 98/42 blood pressure, 18 respiratory rate, and 95% O2 saturation on 2 L. HEENT: Head is atraumatic and normocephalic. HEART: Regular rate. LUNGS: Decreased breath sounds, but clear. ABDOMEN: Soft, morbidly obese, and nontender. EXTREMITIES: 3/4 and 4/4 pitting edema. SKIN: She has some issues with the healing. MEDICATIONS: She is going to go home on Afrin, Bactroban cream, Cepacol, Coumadin, DuoNeb, Flonase, Lasix, Mycelex Boyd , Phenergan DM, prednisone 40 for 3 days, 30 for 3 days, 20 for 2 days, 10 for 2 days and stop, Protonix, Pulmicort, Synthroid, Xanax, and Zithromax. LABORATORY DATA: She has a 7.4 white count, 9.1 hemoglobin, 28.9 hematocrit with 226 platelets. She has 137 sodium, potassium 3.8, BUN 51, creatinine 2.1, GFR is 23, sugar is 292, calcium is 8.5, and total bilirubin 0.5. AST is 20, ALT is 30, and alkaline phosphatase 183. ASSESSMENT AND PLAN: Continue progressive treatment and care and do house call on her on Monday. She was seen by Infectious Disease, Cardiology, Podiatry, and ENT. No fevers, saturating at 100. She had bad bronchitis, bilateral pneumonia, and congestive heart failure. Alan Mann DO
[2018-09-16] MEDS: Albuterol-Ipratrop 3 mg / 0.5 (3 ml) UD IH SCH ×4 (02:00→19:41)
[2018-09-16 06:52] LABS: ALB/GLOB RATIO 1.1 (1.1-1.8); ALBUMIN 2.7 g/dL (3.0-4.8); CALCIUM 8.4 mg/dL (8.4-10.5)
[2018-09-16 06:56] LABS: INR 2.38; PROTHROMBIN TIME 26.9 SECONDS (9.4-12.5)
[2018-09-16 07:01] LABS: HEMOGLOBIN 8.6 g/dL (12.0-16.0); MEAN CELL VOLUME 87.6 fl (80.0-105.0); MEAN CORPUSCULAR HEMOGLOBIN 27.4 pg (25.0-35.0); MEAN CORPUSCULAR HGB CONC 31.3 g/dl (31.0-37.0); MEAN PLATELET VOLUME 9.8 fl (7.0-11.0); RBC 3.14 10^6/uL (3.5-6.1); RED CELL DISTRIBUTION WIDTH 18.3 % (11.5-14.5); WHITE BLOOD COUNT 8.6 10^3/uL (4.5-11.0)
[2018-09-16] MEDS: Insulin Reg-MEDIUM-Coverage SC SCH ×4 (07:45→22:30)
[2018-09-16] MEDS: Budesonide 0.5 mg/2 ml Inhal Susp UD IH SCH ×2 (07:50→19:42)
[2018-09-16] MEDS ORDERED: MethylPREDNISolone 40 mg Vial IM STA (09:43)
[2018-09-16] MEDS ORDERED: Albuterol-Ipratrop 3 mg / 0.5 (3 ml) UD IH STA (09:44)
[2018-09-16] MEDS: Mupirocin 2% Ointment 15 GM TUBE TOP SCH ×2 (10:00→18:16)
[2018-09-16] MEDS: Fluticasone Nasal 50 mcg/Spray NAS SCH (10:00)
[2018-09-16] MEDS: Oxymetazoline 0.05% Nasal Spray (30 ml) NS SCH (10:00)
[2018-09-16] MEDS ORDERED: MethylPREDNISolone 40 mg Vial IVP STA (11:01)
[2018-09-16] MEDS: Pantoprazole 40 mg EC Tab PO SCH (12:53)
[2018-09-16] MEDS: cefTRIAXone 1 gm 1 GM/100 ML BAG IVPB SCH (12:53)
--- NOTE | 2018-09-16 12:53 | RAD ---
Date of service: 09/16/2018 HISTORY: cough sob COMPARISON: Comparison chest 09/09/2018 FINDINGS: LUNGS: Increased-coarsened interstitial markings; rule out sequela reactive/inflammatory airway disease or viral illness. Possibility of mild chronic compensated pulmonary venous congestion not excluded. Clinical correlation recommended. PLEURA: No significant pleural effusion identified, no pneumothorax apparent. CARDIOVASCULAR: Mild aortic atherosclerotic calcification present. Heart is mildly enlarged. No pulmonary vascular congestion. OSSEOUS STRUCTURES: No significant abnormalities. VISUALIZED UPPER ABDOMEN: Normal. OTHER FINDINGS: None. IMPRESSION: Increased-coarsened interstitial markings; rule out sequela reactive/inflammatory airway disease or viral illness. Possibility of mild chronic compensated pulmonary venous congestion not excluded. Clinical correlation recommended.
[2018-09-16] MEDS: Levothyroxine 25 MCG TAB PO SCH (12:55)
--- NOTE | 2018-09-16 16:39 | PN ---
DATE: 09/16/2018 PULMONARY PROGRESS NOTE SUBJECTIVE: The patient was seen and examined in the intensive care unit. She sounds more congested than before. She is also coughing and trying to expectorate thick sputum. PHYSICAL EXAMINATION: VITAL SIGNS: Her temperature is 98, pulse 62, respirations 13, pulse oximetry is 100 on nasal cannula. HEAD: Normocephalic and atraumatic. NECK: Supple with no jugular vein distention. CARDIOVASCULAR: S1, S2. No S3. Regular. PULMONARY: Coarse rhonchi bilaterally and also upper airway rhonchi. GASTROINTESTINAL: Soft, obese, nontender. EXTREMITIES: 3+ pedal edema. No cyanosis. SKIN: No acute skin rash. NEUROLOGICAL: No focal deficits. LABORATORY DATA: Reviewed. Today's WBC 8.6, hemoglobin of 8.6. Alkaline phosphatase is elevated at 151 and albumin is reduced at 2.7. Electrolytes: Potassium is reduced at 3.4. ASSESSMENT: 1. Exacerbation of chronic obstructive pulmonary disease. 2. Obstructive sleep apnea. 3. Morbid obesity. 4. Respiratory insufficiency. PLAN: With current exacerbation of chronic obstructive pulmonary disease, the patient should be on antibiotics and she is receiving Rocephin and Zithromax. She was also given a dose of Solu-Medrol by Dr. Mann, which is indicated to treat increasing respiratory distress. Her overall status is worsened in the last 24 hours. She will be treated with all the modalities available in the intensive care unit. Valerio Pritchett MD
--- NOTE | 2018-09-16 20:24 | PN ---
DATE: 09/16/2018 SUBJECTIVE: The patient is in bed in no acute distress, nontoxic. PHYSICAL EXAMINATION: VITAL SIGNS: Temperature is 98, blood pressure is 120/50, respiratory rate of 18, heart rate of 62. HEENT: Unremarkable. NECK: Supple. LUNGS: Have decreased breath sounds. HEART: Normal S1, S2. ABDOMEN: Soft. LABORATORY DATA: Reveals a white count of 8.7, hemoglobin of 8. BUN of 53, creatinine of 1.7. Urinalysis is noted. Review of orders reveals the patient to be on ceftriaxone, prednisone and azithromycin. ASSESSMENT/PLAN: This is a 73-year-old female with super morbid obesity with body mass index of over 50, acute bronchitis, sepsis due to bilateral lower lobe healthcare-associated pneumonia and on Rocephin and Zithromax, congestive heart failure, chronic obstructive pulmonary disease. Long-term prognosis is poor. Santy Fernandez MD
[2018-09-17] MEDS: Oxymetazoline 0.05% Nasal Spray (30 ml) NS SCH ×3 (00:12→21:54)
[2018-09-17] MEDS: Albuterol-Ipratrop 3 mg / 0.5 (3 ml) UD IH SCH ×4 (02:00→19:25)
[2018-09-17 06:59] LABS: INR 2.01; PROTHROMBIN TIME 22.7 SECONDS (9.4-12.5)
[2018-09-17 07:11] LABS: HEMOGLOBIN 8.8 g/dL (12.0-16.0); MEAN CELL VOLUME 87.3 fl (80.0-105.0); MEAN CORPUSCULAR HEMOGLOBIN 27.2 pg (25.0-35.0); MEAN CORPUSCULAR HGB CONC 31.2 g/dl (31.0-37.0); MEAN PLATELET VOLUME 9.6 fl (7.0-11.0); RBC 3.23 10^6/uL (3.5-6.1); RED CELL DISTRIBUTION WIDTH 18.1 % (11.5-14.5); WHITE BLOOD COUNT 9.1 10^3/uL (4.5-11.0)
[2018-09-17] MEDS: Budesonide 0.5 mg/2 ml Inhal Susp UD IH SCH ×2 (07:20→19:26)
[2018-09-17 07:41] LABS: ALB/GLOB RATIO 1.1 (1.1-1.8); ALBUMIN 2.8 g/dL (3.0-4.8); CALCIUM 8.4 mg/dL (8.4-10.5)
[2018-09-17] MEDS: Levothyroxine 25 MCG TAB PO SCH (08:13)
[2018-09-17] MEDS: Pantoprazole 40 mg EC Tab PO SCH (08:13)
[2018-09-17] MEDS: Insulin Reg-MEDIUM-Coverage SC SCH ×5 (08:15→22:02)
--- NOTE | 2018-09-17 08:28 | PN ---
DATE: 09/17/2018 PULMONARY NOTE SUBJECTIVE: The patient appears comfortable this morning. She is not short of breath at rest. PHYSICAL EXAMINATION: VITALS: (Last noted in the computer): Temperature is 97.4, pulse is 60, respirations 18, and blood pressure 87/31. Oxygen saturation on nasal cannula is 100%. HEENT: Normocephalic, atraumatic. No JVD. CARDIOVASCULAR: Systolic ejection murmur at the lower left sternal border. No S3 gallop. LUNGS: Decreased breath sounds at the bases. Minimal bilateral rhonchi. No wheezing. EXTREMITIES: Mild edema. No cyanosis. No clubbing. Calves are nontender to palpation. GASTROINTESTINAL: Abdomen is soft, nontender, and nondistended. Bowel sounds are positive. SKIN: No acute rash. NEUROLOGIC: Exam limited at the present time. IMPRESSION: 1. Acute bronchitis. 2. Advanced chronic obstructive pulmonary disease. 3. Asthma. 4. Anemia. 5. Renal insufficiency. PLAN: The patient appears comfortable this morning. She is not short of breath at rest. She does state to feeling better overall. On physical exam, her bronchospasm is less. In addition, oxygen saturation on nasal cannula is now 100%. I will continue the current nebulizer treatments and oral steroids for now. The patient also remains on antibiotic therapy. There are no temperatures noted. There is no leukocytosis. Clinical status of the patient is certainly improved - compared to the initial presentation. However, unfortunately, the future status/prognosis for this chronically ill elderly patient remains poor. All are aware. I will discuss the above with Dr. Mann. Ke Farooq MD MTDD
[2018-09-17] MEDS ORDERED: MethylPREDNISolone 40 mg Vial IVP SCH (08:30)
[2018-09-17] MEDS ORDERED: MethylPREDNISolone 40 mg Vial IVP ONE (08:52)
[2018-09-17] MEDS ORDERED: Potassium Chloride 20 mEq ER Tab PO ONE (09:00)
--- NOTE | 2018-09-17 09:03 | PN ---
DATE: 09/16/2018 SUBJECTIVE: She is in the intensive care unit. is at bedside. She is very congested this morning. She is coughing, very uncomfortable in her lungs, not feeling well. I was hoping to discharge her for the past three days. I am trying again to discharge her today, but he said that because they put that appeal and he is going to wait until they give us a notice before he takes her home. He said that it is his legal right, so I am going to not discharge her today. Also, she is chunky. We had a chest x-ray. MEDICATIONS: We gave her Solu-Medrol 40 mg IV one-time dose every 6 hour nebulizer treatment and one stat now. She is on Afrin, Bactrim, Cepacol, Coumadin, nebulizer treatments, Flonase, insulin coverage, Lasix 40 IV, Mycelex, Phenergan DM. She is on prednisone 30 also, Protonix, Pulmicort, Rocephin, Synthroid, Xanax, Zithromax. I discussed this also with her heart doctor. He said it is not her heat, her heat is doing quite well. Also discussed with her lung doctor with the treatment, Dr. Valerio Pritchett. She is uncomfortable in bed, crying, with congestion in the lungs. PHYSICAL EXAMINATION: VITAL SIGNS: 98.3 temperature, 62 pulse, 110/40 blood pressure, respiratory rate, and the oxygen sat was 100, it is down now to 96, it is still very good on 2 L. She has oxygen at home. HEENT: Head is atraumatic, normocephalic. She is losing weight. She stopped eating. HEART: Regular rate. LUNGS: Decreased breath sounds. There is congestion bilaterally. Changes with cough is big. ABDOMEN: Soft, morbidly obese. EXTREMITIES: +4/4 pitting edema. LABORATORY DATA: She is with an 8.6 white count, 8.6 hemoglobin, 27.5 hematocrit with 232 platelets. INR is up to 2.38 which is great, finally 2. Lactate is 2.4. The last time her potassium was 3.4, I gave her potassium. BUN 63, creatinine 1.7, getting better. GFR is 29, sugar is 160, calcium is 8.4. Total bili is 0.4. AST is 18, ALT is 30, alk phos 151. Total protein is 5.2. ASSESSMENT: She has multiple issues going on, trying to get her home. They are very scared about taking her home. She has been back on lately. I am hoping that the Solu-Medrol with nebulizer treatments are helping her congestion. I am also hoping that the chest study does not show anything bad. We will try and get her around in the next 24 days and we will see what his appeal says. Discussed with Pulmonary and Cardiology. Alan Mann DO MTDD
[2018-09-17] MEDS: cefTRIAXone 1 gm 1 GM/100 ML BAG IVPB SCH (09:57)
[2018-09-17] MEDS: Mupirocin 2% Ointment 15 GM TUBE TOP SCH ×2 (10:00→18:11)
--- NOTE | 2018-09-17 10:21 | PN ---
DATE: 09/16/2018 CARDIOLOGY FOLLOWUP SUBJECTIVE: The patient symptoms unchanged. PHYSICAL EXAMINATION: GENERAL: Blood pressure 110/40, heart rate in 60s, atrial fibrillation. NECK: Negative JVD. LUNGS: Decreased breath sounds. HEART: Reveal S1 and S2. EXTREMITIES: Chronic edema. LABORATORY DATA: Hemoglobin is a 8.6. Chemistries; BUN and creatinine is 53 and 1.7, with glucose of 143. IMPRESSION: 1. Atrial fibrillation. 2. Chronic obstructive pulmonary disease. 3. Morbid obesity. 4. Renal insufficiency. 5. Diabetes mellitus. PLAN: Given these findings, awaiting for the patient's transfer to subacute rehab. Ryan Turk MD
--- NOTE | 2018-09-17 12:05 | PN ---
DATE: 09/17/2018 SUBJECTIVE: The patient is without dyspnea. PHYSICAL EXAMINATION: VITAL SIGNS: Blood pressure is 87/50, heart rate is in the 90s, atrial fibrillation. NECK: Negative JVD. LUNGS: Decreased breath sounds. HEART: Reveals S1, S2. EXTREMITIES: Marked edema which is unchanged. LABORATORY DATA: Hemoglobin is 8.8. Chemistries; BUN and creatinine 50 and 1.8. The glucose is 220. IMPRESSION: 1. Chronic atrial fibrillation. 2. Morbid obesity. 3. Chronic obstructive pulmonary disease. 4. Bronchitis. 5. Renal insufficiency. 6. Anemia. Given these findings, the patient's heart rate is well-controlled on her present medication. Ryan Turk MD
--- NOTE | 2018-09-17 13:26 | PN ---
DATE: 09/17/2018 SUBJECTIVE: I was hoping to discharge her over the past few days, now she is quite congested. I discussed with Pulmonology, we are giving another stat dose of Solu-Medrol 60 this morning. Continue with prednisone 40 plus her regular medications. I am going to put her back on the Lasix IV. She is still short of breath and coughing. Actually, on aspirin, Bactroban cream, Cepacol, Coumadin, DuoNeb, Flonase, insulin, Lasix IV, Mycelex, Phenergan, Protonix, Pulmicort, Rocephin, Solu-Medrol now 60 mg one dose not to 40 IV every 8 hours anymore, Synthroid, Xanax and Zithromax. She is having a rough time trying to clear her lungs. PHYSICAL EXAMINATION VITAL SIGNS: A 97.6 temperature; 80 pulse; 87/50 blood pressure, when it is below 100 we will hold the Lasix; 16 respiratory rate and 100% O2 sat on 2 liters nasal cannula. HEENT: Head is atraumatic and normocephalic. HEART: Regular rate with decreased breath sounds. Congestion bilaterally, changes with cough. Did not cough it up, worse than yesterday. ABDOMEN: Soft, morbidly obese. EXTREMITIES: A 3/4 pitting edema. LABORATORY DATA: She has a 9.1 white count, 8.8 hemoglobin, 28.2 hematocrit with 227 platelets. INR is 2.01. She has a 139 sodium; potassium 3.5, I will give her potassium; BUN 50, creatinine 1.8, GFR is 28, sugar is 220, calcium is 8.4, total bili is 0.5, AST is 20, ALT is 21, alk phos of and total protein 5.2. She is having bad lung issues, acute bronchitis, advanced COPD, asthma, anemia, renal insufficiency, CHF, morbidly obese. Chest x-ray showed increased course markings, rule out inflammatory airway disease, mild, chronic compressed pulmonary vascular congestion and bilateral pneumonia as per Infectious Disease on Rocephin and Zithromax. Will continue aggressive treatment and care. We will check her labs tomorrow. Alan Mann, DO MTDD
--- NOTE | 2018-09-17 14:07 | CP.PCM.PN ---
Subjective - Date & Time of Evaluation Date of Evaluation: 09/17/18 Time of Evaluation: 09:20 - Subjective Subjective: Patient is still feeling weak and still has cough, no fevers. Objective - Vital Signs/Intake and Output Vital Signs (last 24 hours): Temp Pulse Resp BP Pulse Ox 97.6 F 80 16 87/50 L 100 09/17/18 06:00 09/17/18 06:00 09/17/18 06:00 09/17/18 06:00 09/17/18 06:00 - Medications Medications: Current Medications Albuterol/Ipratropium (Duoneb 3 Mg/0.5 Mg (3 Ml) Ud) 3 ml IH [id number] [facility] Last Admin: 09/17/18 13:06 Dose: 3 ml Albuterol/Ipratropium (Duoneb 3 Mg/0.5 Mg (3 Ml) Ud) 3 ml IH Q2H PRN PRN Reason: Shortness of Breath Last Admin: 09/13/18 09:19 Dose: 3 ml Alprazolam (Xanax) 0.25 mg PO TID PRN; Protocol PRN Reason: Restlessness Stop: 09/21/18 08:46 Last Admin: 09/14/18 10:56 Dose: 0.25 mg Azithromycin (Zithromax) 500 mg PO DAILY [facility] Last Admin: 09/17/18 09:58 Dose: 500 mg Benzocaine/Menthol (Cepacol Sore Throat) 1 rosa MT Q2H PRN PRN Reason: Sore Throat Last Admin: 09/14/18 10:59 Dose: 1 rosa Budesonide (Pulmicort Respules) 0.5 mg IH [id number] [facility] Last Admin: 09/17/18 07:20 Dose: 0.5 mg Clotrimazole (Mycelex Boyd) 10 mg MT 5XD [facility] Last Admin: 09/17/18 05:59 Dose: Not Given Fluticasone Propionate (Flonase) 1 actuation MARIAM DAILY [facility] Last Admin: 09/16/18 10:00 Dose: 1 spr Furosemide (Lasix) 40 mg IVP DAILY [facility] Last Admin: 09/16/18 12:58 Dose: 40 mg Ceftriaxone Sodium (Rocephin 1 Gram Ivpb) 1 gm in 100 mls @ 100 mls/hr IVPB DAILY [facility]; Protocol Last Admin: 09/17/18 09:57 Dose: 100 mls/hr Insulin Human Regular (Humulin R Med) 0 units SC ACHS [facility]; Protocol Last Admin: 09/17/18 12:35 Dose: 1 units Levothyroxine Sodium (Synthroid) 25 mcg PO ACB [facility] Last Admin: 09/17/18 08:13 Dose: 25 mcg Mupirocin (Bactroban Ointment) 1 gm TOP BID [facility] Last Admin: 09/16/18 18:16 Dose: 1 applic Oxymetazoline HCl (Afrin 0.05%) 1 ml NS Q12 [facility] Stop: 09/18/18 22:01 Last Admin: 09/17/18 00:12 Dose: 2 spr Pantoprazole Sodium (Protonix Ec Tab) 40 mg PO ACB [facility] Last Admin: 09/17/18 08:13 Dose: 40 mg Prednisone (Prednisone Tab) 40 mg PO DAILY [facility] Promethazine HCl/Dextromethorphan (Phenergan Dm Syrup) 5 ml PO Q6H PRN PRN Reason: Cough Last Admin: 09/15/18 10:44 Dose: 5 ml Warfarin Sodium (Coumadin) 3 mg PO 1800 [facility]; Protocol Last Admin: 09/16/18 18:58 Dose: 3 mg - Labs Labs: 09/17/18 06:15 09/17/18 06:15 PT 22.7 SECONDS (9.4-12.5) H 09/17/18 06:15 INR 2.01 09/17/18 06:15 - Constitutional Appears: Chronically Ill - Head Exam Head Exam: NORMAL INSPECTION - Respiratory Exam Respiratory Exam: Decreased Breath Sounds - Cardiovascular Exam Cardiovascular Exam: +S1, +S2 - GI/Abdominal Exam GI & Abdominal Exam: Soft. absent: Tenderness Assessment and Plan - Assessment and Plan (Free Text) Plan: Assessment consider acute bronchitis history of sepsis due to bilateral lower lobe HCAP history of Pseudomonas bilateral infected wound on lower extremities, S/P treatment with 16 days of antibiotics history of right thigh wound infection with ESBL-producing E. coli history of urinary tract infection COPD CHF morbid obesity with BMI 70 history of right leg surgery and breast surgery chronic ulcers on the lower extremities Plan continue Rocephin and Zithromax day 7 - should be able to d/c antibiotics in the next 24-48 hours would suggest chest PT and physical therapy for the patient overall prognosis is poor
[2018-09-17] MEDS: Benzocaine/Menthol (Cepacol) Lozenge MT PRN (21:55)
[2018-09-18] MEDS: Albuterol-Ipratrop 3 mg / 0.5 (3 ml) UD IH SCH ×4 (04:04→19:26)
[2018-09-18] MEDS: Promethazine DM 6.25 mg-15 mg/5 ml Syrup PO PRN (05:56)
[2018-09-18 07:18] LABS: HEMOGLOBIN 8.9 g/dL (12.0-16.0); MEAN CELL VOLUME 87.5 fl (80.0-105.0); MEAN CORPUSCULAR HEMOGLOBIN 27.2 pg (25.0-35.0); MEAN CORPUSCULAR HGB CONC 31.1 g/dl (31.0-37.0); MEAN PLATELET VOLUME 9.6 fl (7.0-11.0); RBC 3.27 10^6/uL (3.5-6.1); RED CELL DISTRIBUTION WIDTH 18.2 % (11.5-14.5); WHITE BLOOD COUNT 9.1 10^3/uL (4.5-11.0)
[2018-09-18 07:29] LABS: INR 2.44; PROTHROMBIN TIME 27.6 SECONDS (9.4-12.5)
[2018-09-18] MEDS: Budesonide 0.5 mg/2 ml Inhal Susp UD IH SCH ×2 (07:40→19:26)
[2018-09-18 08:05] LABS: ALB/GLOB RATIO 1.2 (1.1-1.8); CALCIUM 8.8 mg/dL (8.4-10.5)
[2018-09-18] MEDS: Pantoprazole 40 mg EC Tab PO SCH (08:25)
[2018-09-18] MEDS: Levothyroxine 25 MCG TAB PO SCH (08:25)
[2018-09-18] MEDS: Insulin Reg-MEDIUM-Coverage SC SCH ×5 (08:25→21:54)
[2018-09-18] MEDS: Oxymetazoline 0.05% Nasal Spray (30 ml) NS SCH ×2 (10:00→21:56)
[2018-09-18] MEDS: Fluticasone Nasal 50 mcg/Spray NAS SCH (10:00)
[2018-09-18] MEDS: Mupirocin 2% Ointment 15 GM TUBE TOP SCH ×2 (10:04→18:09)
--- NOTE | 2018-09-18 12:44 | PN ---
DATE: 09/18/2018 PULMONARY PROGRESS NOTE SUBJECTIVE: The patient appears comfortable this morning. She is not short of breath at rest. PHYSICAL EXAMINATION: VITAL SIGNS: Temperature is 97.3, pulse 59, respirations 16, blood pressure 95/45. Oxygen saturation on nasal cannula is 100%. HEENT: Normocephalic, atraumatic. No JVD. CARDIOVASCULAR: Systolic ejection murmur at the lower left sternal border. No S3 gallop. LUNGS: Decreased breath sounds at the bases. Less rhonchi. No wheezing. GI: Abdomen is soft, nontender and nondistended. Bowel sounds are positive. EXTREMITIES: Mild edema. No cyanosis, no clubbing. Calves are nontender to palpation. SKIN: No acute rash. NEUROLOGIC: Exam limited at the present time. IMPRESSION: 1. Acute bronchitis. 2. Advanced chronic obstructive pulmonary disease. 3. Asthma. 4. Anemia. 5. Renal insufficiency. PLAN: The patient appears comfortable this morning. She is not short of breath at rest. She does state to feeling better overall. I did discuss the case with the night nurse at length. The night nurse stated the patient did have a fleeting episode of lateral left-sided rib pain. I did question the patient at length, as well as examine her. The pain is reproducible with palpation(probably musculoskeletal). On physical exam, there is less bronchospasm noted. In addition, the oxygen saturation on nasal cannula is now 100%. I will continue the current nebulizer treatments and oral steroids for now. Inputs by Infectious Disease and Internal Medicine are also noted. Clinical status of the patient does appear improved - compared to last week. However, the future status/prognosis for this chronically ill elderly patient remains poor. I will discuss the above with Dr. Mann this morning. Ke Farooq MD MTDD
--- NOTE | 2018-09-18 14:16 | CP.PCM.PN ---
Subjective - Date & Time of Evaluation Date of Evaluation: 09/18/18 Time of Evaluation: 09:40 - Subjective Subjective: Still feels weak, still with cough but a little bit improved, no fevers. Objective - Vital Signs/Intake and Output Vital Signs (last 24 hours): Temp Pulse Resp BP Pulse Ox 97.6 F 80 16 87/50 L 100 09/17/18 06:00 09/17/18 06:00 09/17/18 06:00 09/17/18 06:00 09/17/18 06:00 - Medications Medications: Current Medications Albuterol/Ipratropium (Duoneb 3 Mg/0.5 Mg (3 Ml) Ud) 3 ml IH [id number] [facility] Last Admin: 09/17/18 13:06 Dose: 3 ml Albuterol/Ipratropium (Duoneb 3 Mg/0.5 Mg (3 Ml) Ud) 3 ml IH Q2H PRN PRN Reason: Shortness of Breath Last Admin: 09/13/18 09:19 Dose: 3 ml Alprazolam (Xanax) 0.25 mg PO TID PRN; Protocol PRN Reason: Restlessness Stop: 09/21/18 08:46 Last Admin: 09/14/18 10:56 Dose: 0.25 mg Azithromycin (Zithromax) 500 mg PO DAILY [facility] Last Admin: 09/17/18 09:58 Dose: 500 mg Benzocaine/Menthol (Cepacol Sore Throat) 1 rosa MT Q2H PRN PRN Reason: Sore Throat Last Admin: 09/14/18 10:59 Dose: 1 rosa Budesonide (Pulmicort Respules) 0.5 mg IH [id number] [facility] Last Admin: 09/17/18 07:20 Dose: 0.5 mg Clotrimazole (Mycelex Boyd) 10 mg MT 5XD [facility] Last Admin: 09/17/18 05:59 Dose: Not Given Fluticasone Propionate (Flonase) 1 actuation MARIAM DAILY [facility] Last Admin: 09/16/18 10:00 Dose: 1 spr Furosemide (Lasix) 40 mg IVP DAILY [facility] Last Admin: 09/16/18 12:58 Dose: 40 mg Ceftriaxone Sodium (Rocephin 1 Gram Ivpb) 1 gm in 100 mls @ 100 mls/hr IVPB DAILY [facility]; Protocol Last Admin: 09/17/18 09:57 Dose: 100 mls/hr Insulin Human Regular (Humulin R Med) 0 units SC ACHS [facility]; Protocol Last Admin: 09/17/18 12:35 Dose: 1 units Levothyroxine Sodium (Synthroid) 25 mcg PO ACB [facility] Last Admin: 09/17/18 08:13 Dose: 25 mcg Mupirocin (Bactroban Ointment) 1 gm TOP BID [facility] Last Admin: 09/16/18 18:16 Dose: 1 applic Oxymetazoline HCl (Afrin 0.05%) 1 ml NS Q12 [facility] Stop: 09/18/18 22:01 Last Admin: 09/17/18 00:12 Dose: 2 spr Pantoprazole Sodium (Protonix Ec Tab) 40 mg PO ACB [facility] Last Admin: 09/17/18 08:13 Dose: 40 mg Prednisone (Prednisone Tab) 40 mg PO DAILY [facility] Promethazine HCl/Dextromethorphan (Phenergan Dm Syrup) 5 ml PO Q6H PRN PRN Reason: Cough Last Admin: 09/15/18 10:44 Dose: 5 ml Warfarin Sodium (Coumadin) 3 mg PO 1800 [facility]; Protocol Last Admin: 09/16/18 18:58 Dose: 3 mg - Labs Labs: 09/17/18 06:15 09/17/18 06:15 PT 22.7 SECONDS (9.4-12.5) H 09/17/18 06:15 INR 2.01 09/17/18 06:15 - Constitutional Appears: Chronically Ill - Head Exam Head Exam: NORMAL INSPECTION - Respiratory Exam Respiratory Exam: Decreased Breath Sounds - Cardiovascular Exam Cardiovascular Exam: +S1, +S2 - GI/Abdominal Exam GI & Abdominal Exam: Soft. absent: Tenderness Assessment and Plan - Assessment and Plan (Free Text) Plan: Assessment consider acute bronchitis history of sepsis due to bilateral lower lobe HCAP history of Pseudomonas bilateral infected wound on lower extremities, S/P treatment with 16 days of antibiotics history of right thigh wound infection with ESBL-producing E. coli history of urinary tract infection COPD CHF morbid obesity with BMI 70 history of right leg surgery and breast surgery chronic ulcers on the lower extremities Plan on Rocephin and Zithromax day 8 - will d/c antibiotics and observe would suggest continued chest PT and physical therapy for the patient overall prognosis is poor
--- NOTE | 2018-09-18 16:19 | PN ---
DATE: 09/18/2018 SUBJECTIVE: She is very lethargic in bed. She has oxygen on. She is barely talking. She is roughly congested, but better than yesterday. MEDICATIONS: She is on Afrin, Bactroban cream, Cepacol, Coumadin, DuoNeb, Flonase, insulin, Lasix, Mycelex Boyd, Phenergan, prednisone 40 mg, Protonix, Pulmicort, Rocephin, Synthroid, Xanax and Zithromax. She is off Solu-Medrol. PHYSICAL EXAMINATION: VITAL SIGNS: She has a 97.3 temperature, 59 pulse, 95/45 blood pressure, 16 respiratory rate, 100% O2 sat on 4 liters. They are holding the Lasix if it drops below 100. They have put an appeal of her discharge the other day, waiting for the appeal to come back. I would like her to go to [place]. LABORATORY DATA: She has 9.1 white count, 8.9 hemoglobin, 28.6 hematocrit with 251 platelets. INR is 2.44. She has a 138 sodium, potassium 3.5, I will give her some potassium, BUN 55, creatinine 1.5, GFR is 34, sugar is 335, calcium is 8.8, total bili is 0.4, AST is 22, ALT is 22, and alkaline phosphatase 177. She is definitely fairly. She has been seen by Infectious Disease, Cardiology, and Pulmonary. We should discontinue the Rocephin and Zithromax. I I think she needs to get out of the hospital before she catches something. The is waiting for the appeal of her discharge from who is ever in charge to that and case management can discharge her. I will talk to them again this morning. I will continue aggressive treatment and care. Alan Mann DO MTDD
[2018-09-18 22:13] VITALS: RESP 18
--- NOTE | 2018-09-18 22:58 | CARD ---
APPROVED REPORT Date of service: 09/18/2018 EKG Measurement Heart [id number] <Conclusion> Atrial fibrillation Nonspecific T wave abnormalities Abnormal ECG
[2018-09-19] MEDS: Albuterol-Ipratrop 3 mg / 0.5 (3 ml) UD IH SCH ×3 (01:06→13:08)
[2018-09-19] MEDS: Insulin Reg-MEDIUM-Coverage SC SCH ×2 (07:17→12:27)
[2018-09-19 07:47] LABS: HEMOGLOBIN 9.2 g/dL (12.0-16.0); MEAN CELL VOLUME 86.8 fl (80.0-105.0); MEAN CORPUSCULAR HEMOGLOBIN 26.9 pg (25.0-35.0); MEAN PLATELET VOLUME 9.8 fl (7.0-11.0); RBC 3.42 10^6/uL (3.5-6.1); WHITE BLOOD COUNT 11.2 10^3/uL (4.5-11.0)
[2018-09-19] MEDS: Budesonide 0.5 mg/2 ml Inhal Susp UD IH SCH (07:48)
[2018-09-19 07:53] LABS: INR 2.82; PROTHROMBIN TIME 31.9 SECONDS (9.4-12.5)
[2018-09-19 07:58] VITALS: BP 115/96; PULSE 64; TEMP 97.3; O2SAT 94
[2018-09-19 08:04] LABS: ALB/GLOB RATIO 1.2 (1.1-1.8); ALBUMIN 3.1 g/dL (3.0-4.8); CALCIUM 8.8 mg/dL (8.4-10.5)
--- NOTE | 2018-09-19 10:08 | PN ---
DATE: 09/19/2018 PULMONARY NOTE SUBJECTIVE: The patient appears very comfortable this morning. She is not short of breath at rest. PHYSICAL EXAMINATION: VITAL SIGNS: (Last noted in the computer): Temperature is 98, pulse 69, respirations 18, blood pressure 102/49. Oxygen saturation on nasal cannula is 100%. HEENT: Normocephalic, atraumatic. No JVD. CARDIOVASCULAR: Systolic ejection murmur at the lower left sternal border. No S3 gallop. LUNGS: Decreased breath sounds at the bases. Minimal/less rhonchi. No wheezing. GI: Abdomen is soft, nontender and nondistended. Bowel sounds are positive. EXTREMITIES: Mild edema. No cyanosis, no clubbing. Calves are nontender to palpation. SKIN: No acute rash. NEUROLOGIC: Exam limited at the present time. IMPRESSION: 1. Acute bronchitis. 2. Advanced chronic obstructive pulmonary disease. 3. Asthma. 4. Anemia. 5. Renal insufficiency. PLAN: The patient appears very comfortable this morning. She is not short of breath at rest. She does state to feeling better overall. On physical exam, there is certainly less bronchospasm noted. In addition, the oxygen saturation on nasal cannula is now 100%. I will continue the current nebulizer treatments and oral steroids for now. Clinical status of the patient has significantly improved - compared to last week. However, given the above, the future status/prognosis for this patient does remain very guarded/poor. I will discuss the above with Dr. Mann. Ke Farooq MD MTDD
[2018-09-19] MEDS: Pantoprazole 40 mg EC Tab PO SCH (10:31)
[2018-09-19] MEDS: Levothyroxine 25 MCG TAB PO SCH (10:31)
[2018-09-19] MEDS: Fluticasone Nasal 50 mcg/Spray NAS SCH ×2 (10:36→12:24)
[2018-09-19] MEDS: Mupirocin 2% Ointment 15 GM TUBE TOP SCH (12:24)
--- NOTE | 2018-09-19 14:07 | CP.PCM.PN ---
Subjective - Date & Time of Evaluation Date of Evaluation: 09/19/18 Time of Evaluation: 09:20 - Subjective Subjective: Still feels weak but a little better, cough is a little better, not in distress, no fevers. Objective - Vital Signs/Intake and Output Vital Signs (last 24 hours): Temp Pulse Resp BP Pulse Ox 97.3 F L 59 L 16 167/92 H 100 09/18/18 06:00 09/18/18 06:00 09/18/18 06:00 09/18/18 10:05 09/18/18 06:00 Intake and Output: 09/18/18 09/18/18 06:59 18:59 Intake Total 860 Output Total 0 Balance 860 - Medications Medications: Current Medications Albuterol/Ipratropium (Duoneb 3 Mg/0.5 Mg (3 Ml) Ud) 3 ml IH [id number] [facility] Last Admin: 09/18/18 13:14 Dose: 3 ml Albuterol/Ipratropium (Duoneb 3 Mg/0.5 Mg (3 Ml) Ud) 3 ml IH Q2H PRN PRN Reason: Shortness of Breath Last Admin: 09/13/18 09:19 Dose: 3 ml Alprazolam (Xanax) 0.25 mg PO TID PRN; Protocol PRN Reason: Restlessness Stop: 09/21/18 08:46 Last Admin: 09/14/18 10:56 Dose: 0.25 mg Benzocaine/Menthol (Cepacol Sore Throat) 1 rosa MT Q2H PRN PRN Reason: Sore Throat Last Admin: 09/17/18 21:55 Dose: 1 rosa Budesonide (Pulmicort Respules) 0.5 mg IH [id number] [facility] Last Admin: 09/18/18 07:40 Dose: 0.5 mg Clotrimazole (Mycelex Boyd) 10 mg MT 5XD [facility] Last Admin: 09/18/18 10:03 Dose: 10 mg Fluticasone Propionate (Flonase) 1 actuation MARIAM DAILY [facility] Last Admin: 09/16/18 10:00 Dose: 1 spr Furosemide (Lasix) 40 mg IVP DAILY [facility] Last Admin: 09/18/18 10:05 Dose: 40 mg Insulin Human Regular (Humulin R Med) 0 units SC [facility]; Protocol Last Admin: 09/18/18 12:52 Dose: 5 units Levothyroxine Sodium (Synthroid) 25 mcg PO ACB [facility] Last Admin: 09/18/18 08:25 Dose: 25 mcg Mupirocin (Bactroban Ointment) 1 gm TOP BID [facility] Last Admin: 09/18/18 10:04 Dose: 1 applic Oxymetazoline HCl (Afrin 0.05%) 1 ml NS Q12 [facility] Stop: 09/18/18 22:01 Last Admin: 09/17/18 21:54 Dose: 1 spr Pantoprazole Sodium (Protonix Ec Tab) 40 mg PO ACB [facility] Last Admin: 09/18/18 08:25 Dose: 40 mg Prednisone (Prednisone Tab) 40 mg PO DAILY [facility] Last Admin: 09/18/18 10:03 Dose: 40 mg Promethazine HCl/Dextromethorphan (Phenergan Dm Syrup) 5 ml PO Q6H PRN PRN Reason: Cough Last Admin: 09/18/18 05:56 Dose: 5 ml Warfarin Sodium (Coumadin) 3 mg PO 1800 [facility]; Protocol Last Admin: 09/17/18 17:20 Dose: 3 mg - Labs Labs: 09/18/18 06:45 09/18/18 06:45 PT 27.6 SECONDS (9.4-12.5) H 09/18/18 06:45 INR 2.44 09/18/18 06:45 - Constitutional Appears: Chronically Ill - Head Exam Head Exam: NORMAL INSPECTION - Respiratory Exam Respiratory Exam: Decreased Breath Sounds - Cardiovascular Exam Cardiovascular Exam: +S1, +S2 - GI/Abdominal Exam GI & Abdominal Exam: Soft. absent: Tenderness Assessment and Plan - Assessment and Plan (Free Text) Plan: Assessment S/P treatment for acute bronchitis history of sepsis due to bilateral lower lobe HCAP history of Pseudomonas bilateral infected wound on lower extremities, S/P treatment with 16 days of antibiotics history of right thigh wound infection with ESBL-producing E. coli history of urinary tract infection COPD CHF morbid obesity with BMI 70 history of right leg surgery and breast surgery chronic ulcers on the lower extremities Plan S/P course of Rocephin and Zithromax day 8 - continue to monitor off antibiotics would suggest continued chest PT and physical therapy for the patient overall prognosis is poor discussed with Dr. Mann
--- NOTE | 2018-09-19 20:03 | DS ---
HISTORY OF PRESENT ILLNESS: She is resting comfortably in bed. She is actually doing better. She is breathing better, much improved. PHYSICAL EXAMINATION: GENERAL: She is so alert and talking. VITAL SIGNS: She has a 97.3 temperature, 64 pulse, 102/49 blood pressure, 18 respiratory rate, 94% O2 sat. HEENT: Head is atraumatic, normocephalic. HEART: Regular rate. LUNGS: Decreased breath sounds, but clear. No wheezes, rhonchi or rales. ABDOMEN: Soft, morbidly obese. EXTREMITIES: +4 pitting edema. MEDICATIONS: She is on Bactroban cream, Cepacol, Coumadin, DuoNebs, Flonase, Lasix, Mycelex, Phenergan, prednisone, Protonix, Pulmicort, Synthroid, and Xanax. LABORATORY DATA: She has 11.2 white count on steroids, 9.2 hemoglobin, 29.7 hematocrit with 246 platelets. Sodium 136, potassium 3.6, BUN is 47, creatinine 0.5, GFR 34, sugar is 287 on steroids, calcium 8.8, total bili is 0.5, AST is 32, ALT is 43, alk phos 24. She had a chest CT scan and pelvis x-ray that was normal I was looking for cancer. Last INR was 2.82. ASSESSMENT AND PLAN: I am hoping she goes to subacute rehab at [place] today. We will follow her there. The patient had multiple problems, bilateral pneumonia, congestive heart failure, chronic obstructive pulmonary disease, anemia. Alan Mann DO MTDD
== END 2018-09-19 17:12 | DRG 190 ==
LOC: ED 16:35 → ERH 19:22 → CCU 22:37 → 5RNO 09-16 20:04
PROVIDERS: ADMIT Family Medicine; ATTEND Family Medicine
PROC: 30233N1 Transfusion of Nonautologous Red Blood Cells into Peripheral Vein, Percutaneous Approach (ICD-10-PCS; principal; 2018-09-11)
PROC: 0HBRXZZ Excision of Toe Nail, External Approach (ICD-10-PCS; 2018-09-14)
DX: J44.1 Chronic obstructive pulmonary disease with (acute) exacerbation (principal); J18.9 Pneumonia, unspecified organism; K56.7 Ileus, unspecified; Z68.42 Body mass index [BMI] 45.0-49.9, adult; J44.0 Chronic obstructive pulmonary disease with (acute) lower respiratory infection; E11.22 Type 2 diabetes mellitus with diabetic chronic kidney disease; E11.51 Type 2 diabetes mellitus with diabetic peripheral angiopathy without gangrene; J20.9 Acute bronchitis, unspecified; D64.9 Anemia, unspecified; I50.9 Heart failure, unspecified; N18.9 Chronic kidney disease, unspecified; I27.20 Pulmonary hypertension, unspecified; I48.2 Chronic atrial fibrillation; I89.0 Lymphedema, not elsewhere classified; I87.2 Venous insufficiency (chronic) (peripheral); H65.90 Unspecified nonsuppurative otitis media, unspecified ear; E78.00 Pure hypercholesterolemia, unspecified; G47.33 Obstructive sleep apnea (adult) (pediatric); E66.01 Morbid (severe) obesity due to excess calories; L60.3 Nail dystrophy; Z79.01 Long term (current) use of anticoagulants; Z87.891 Personal history of nicotine dependence; Z99.81 Dependence on supplemental oxygen; Z79.84 Long term (current) use of oral hypoglycemic drugs

== ENCOUNTER 2018-10-11 22:54 | Inpatient (IN) | payer MEDICARE ==
[2018-10-11 22:55] VITALS: BMI 45.1
--- NOTE | 2018-10-12 00:17 | ED PDOC ---
Arrival/HPI - General Historian: Patient - History of Present Illness Narrative History of Present Illness (Text): 10/12/18 00:16 A 58 year old male, whose past medical history includes A-Fib, pneumonia, chronic leg edema, and CHF, presents to the emergency department complaining of recurrent nosebleed 2 days ago. Patient reports resolved spontaneously 2 days ago. Advised by PMD to stop Coumadin medication. Tonight, nosebleed happened again at home, currently stopped in the ER however. States also experiencing weakness, some shortness of breath (on home O2). Patient denies any chest pain, or any other complaints at this time. PMD: Dr. Mann <Amari Oscar - Last Filed: 10/12/18 04:46> <Mook Grace - Last Filed: 10/12/18 10:43> - General Chief Complaint: ENT Problem Time Seen by Provider: 10/11/18 23:40 Past Medical History - Provider Review Nursing Documentation Reviewed: Yes - Infectious Disease Hx of Infectious Diseases: None - Tetanus Immunization Tetanus Immunization: Unknown - Cardiac Hx Cardiac Disorders: Yes (palpitations, afib) Hx Angina: Yes Hx Cardiac Arrhythmia: Yes Hx Congestive Heart Failure: Yes Hx Hypotension: Yes Hx Pacemaker: No Hx Peripheral Edema: Yes (ble +4 pitting) Hx Peripheral Vascular Disease: Yes (lymphadema) - Pulmonary Hx Chronic Obstructive Pulmonary Disease (COPD): Yes (asthma, pneumonia) - Neurological Hx Neurological Disorder: No - HEENT Hx HEENT Disorder: Yes (glasses) Other/Comment: thrush to oral cavity and tongue - Renal Hx Renal Disorder: No - Endocrine/Metabolic Hx Diabetes Mellitus Type 2: Yes - Hematological/Oncological Hx Blood Disorders: Yes (septicemia) Hx Anemia: Yes - Integumentary Hx Dermatological Disorder: Yes (chronic venous stasis dermatitis ble) Other/Comment: pt is obese, right outer thigh skin openings healed, redness, hard brown dry skin, dimpling to left thigh, pt c/o that she, sometimes has drainage from left thigh. both lower legs and feet dry skin. redness and discoloration to right abd fold healed, ble +4 pitting edema & brown discolored dry skin, dry skin and toenails both feet, multiple healing unmeasurable wounds to b/l buttocks, irregular wound left buttock red, multiple wounds in various stages of healing to entire abd, multiple areas of red foul smelling and draining light green purulent drainage wounds to upper and lower abd, discolored brown skin to abd, healing wounds to b/l thighs - Musculoskeletal/Rheumatological Hx Falls: No - Gastrointestinal Hx Gastrointestinal Disorders: Yes (benign mass removed from abd 30 yrs ago) Other/Comment: morbid obesity, blood in stool - Genitourinary/Gynecological Hx Genitourinary Disorders: Yes Hx Hematuria: Yes Hx Incontinence: Yes (urine and stool) Hx Urinary Tract Infection: Yes - Psychiatric Hx Psychophysiologic Disorder: No Hx Substance Use: No - Surgical History Hx Cardiac Catheterization: Yes Hx Mastectomy: No Other/Comment: benign mass removed from abd over 30 yrs ago - Anesthesia Hx Anesthesia: Yes - Suicidal Assessment Feels Threatened In Home Enviroment: No <Amari Oscar - Last Filed: 10/12/18 04:46> Family/Social History - Physician Review Nursing Documentation Reviewed: Yes Family/Social History: No Known Family HX Smoking Status: Never Smoked Hx Alcohol Use: No Hx Substance Use: No Hx Substance Use Treatment: No <Amari Oscar - Last Filed: 10/12/18 04:46> Allergies/Home Meds <Amari Oscar - Last Filed: 10/12/18 04:46> <Mook Grace - Last Filed: 10/12/18 10:43> Allergies/Adverse Reactions: Allergies No Known Allergies Allergy (Verified 07/10/18 04:46) Home Medications: Home Meds Medication Instructions Recorded Confirmed Warfarin [Coumadin] 3 mg PO DAILY 04/10/18 10/11/18 Albuterol/Ipratropium [Duoneb 3 3 ml IH Q6 04/25/18 10/11/18 mg/0.5 mg (3 ml) UD] Clotrimazole/Betamethasone 180 gm TOP BID 04/25/18 10/11/18 [Lotrisone] Fluticasone Nasal [Flonase] 1 spray MARIAM DAILY 04/25/18 10/11/18 Furosemide [Lasix] 40 mg PO DAILY 04/25/18 10/11/18 Levothyroxine [Synthroid] 25 mcg PO DAILY 04/25/18 10/11/18 MetFORMIN [glucoPHAGE] 500 mg PO DAILY 04/25/18 10/11/18 Silver Sulfadiazine [Silvadene] 1,600 gm TOP BID 04/25/18 10/11/18 Budesonide [Pulmicort Flexhaler] 1 puff IH QID 06/01/18 10/11/18 Mupirocin 2% Cream [Bactroban 30 gm EXT BID 06/01/18 10/11/18 Cream] Pantoprazole Sodium [Protonix] 40 mg PO DAILY 06/01/18 10/11/18 Cyproheptadine [Periactin] 1 tab PO DAILY 07/10/18 10/11/18 Midodrine HCl 10 mg PO TID 07/10/18 10/11/18 Digoxin [Digitek] 125 mcg PO QOTHERDAY 09/09/18 10/11/18 Diltiazem HCl [Cartia Xt] 120 mg PO DAILY 09/09/18 10/11/18 Review of Systems - Physician Review All systems were reviewed & negative as marked: Yes - Review of Systems Constitutional: Other (generalized weakness) ENT: Epistaxis (resolved in ER) Respiratory: SOB Cardiovascular: absent: Chest Pain <Amari Oscar - Last Filed: 10/12/18 04:46> Physical Exam Vital Signs Reviewed: Yes Vital Signs Temp BP 10/11/18 23:44 97.0 F L 105/41 L Temperature: Afebrile Blood Pressure: Normal Appearance: Positive for: Well-Appearing, Non-Toxic, Comfortable Pain Distress: None Mental Status: Positive for: Alert and Oriented X 3 - Systems Exam Head: Present: Atraumatic, Normocephalic Pupils: Present: PERRL Extroacular Muscles: Present: EOMI Conjunctiva: Present: Normal Ears: Present: NORMAL TM Mouth: Present: Moist Mucous Membranes Pharnyx: Present: Other (dried blood) Nose (Internal): Present: No Active Bleeding, Other (scanty amount of blood left nares/minimal ooze) Neck: Present: Normal Range of Motion, Other (neck is supple) Respiratory/Chest: Present: Clear to Auscultation Cardiovascular: Present: Irregular Rhythm Abdomen: No: Tenderness, Distention, Peritoneal Signs Upper Extremity: Present: Normal Inspection. No: Cyanosis, Edema Lower Extremity: Present: Edema (+4 pitting edema bilaterally) Neurological: Present: GCS=15, CN II-XII Intact, Speech Normal. No: Other (no focal deficits) Skin: Present: Warm, Dry, Normal Color. No: Rashes Psychiatric: Present: Alert, Oriented x 3, Normal Insight, Normal Concentration <Amari Oscar - Last Filed: 10/12/18 04:46> Vital Signs Temp Pulse Resp BP Pulse Ox 10/12/18 06:48 98.1 F 70 16 83/36 L 90 L 10/12/18 05:27 97.7 F 71 16 106/43 L 96 10/12/18 04:50 97.9 F 72 16 89/43 L 10/12/18 02:12 82 18 123/46 L 100 10/11/18 23:44 97.0 F L 80 20 105/41 L 92 L <Mook Grace - Last Filed: 10/12/18 10:43> Medical Decision Making ED Course and Treatment: 10/12/18 00:17 Impression: 73 year old female with nosebleed. Physical exam shows dried blood to both nares (no active bleeding at this time); dried blood to pharynx; +4 pitting leg edema bilaterally; irregular rhythm. Plan: -- EKG -- Chest X-ray -- Labs -- Reassess and disposition Progress Notes: 10/12/18 00:57 No acute process in Chest X-ray. EKG: Ordered, reviewed, and independently interpreted the EKG. Rate : 74 BPM Rhythm : A-Fib Interpretation : Non-specific ST- and T- wave changes, incomplete RBBB. Comparison : No previous EKG for comparison. 10/12/18 02:40 Patient with recurrent epistaxis.Vitamin K ordered previously/patient will require FFP considering elevated INR persistent bleeding. 10/12/18 03:00 Patient had petroleum gauze packed in left nares to tamponade bleeding for now. - RAD Interpretation Radiology Orders: 10/11/18 23:51 CHEST PORTABLE [RAD] Stat <Amari Oscar - Last Filed: 10/12/18 04:46> ED Course and Treatment: 10/12/18 08:07 I was called to bedside because patient's blood pressure was low. Normal HR. Lungs clear; no w/r/r. Patient denies SOB, dizziness or lightheadedness. So far approx 175 ml was given so we will continue to hydrate to 500ml bolus. ICU consult was called by NISH Adair and Dr. Marc came to evaluate patient. He recommends to reevaluate after hydration and give patient her does of Midodrine 10mg PO which she has yet to take today. 10/12/18 10:42 Patient's blood pressure improved and stable. Dr. Healy came to reevaluate the patient. LA 2.4. She is stable for Med/Surg Obs. - Critical Care Critical Care Minutes: 30 minutes - Lab Interpretations Lab Results: PT 82.1 SECONDS (9.4-12.5) H 10/12/18 00:18 INR 7.40 H* 10/12/18 00:18 APTT 58.7 Seconds (26.9-38.3) H 10/12/18 00:18 Total Bilirubin 1.0 mg/dL (0.2-1.3) 10/12/18 00:18 AST 45 U/L (14-36) H D 10/12/18 00:18 ALT 18 U/L (7-56) 10/12/18 00:18 Alkaline Phosphatase 347 U/L (38-126) H D 10/12/18 00:18 Total Protein 6.3 g/dL (5.8-8.3) 10/12/18 00:18 Albumin 3.1 g/dL (3.0-4.8) 10/12/18 00:18 Globulin 3.1 gm/dL 10/12/18 00:18 Albumin/Globulin Ratio 1.0 (1.1-1.8) L 10/12/18 00:18 - RAD Interpretation Radiology Orders: 10/11/18 23:51 CHEST PORTABLE [RAD] Stat - Medication Orders Current Medication Orders: Sodium Chloride (Sodium Chloride 0.9%) 500 mls @ 999 mls/hr IV .Q31M STA Stop: 10/12/18 08:20 Discontinued Medications Phytonadione (Vitamin K Tab) 5 mg PO ONCE ONE Stop: 10/12/18 01:53 Last Admin: 10/12/18 02:09 Dose: 5 mg <Mook Grace L - Last Filed: 10/12/18 10:43> - Scribe Statement The provider has reviewed the documentation as recorded by the Ashly Barraza Provider Scribe Attestation: All medical record entries made by the Scribe were at my direction and personally dictated by me. I have reviewed the chart and agree that the record accurately reflects my personal performance of the history, physical exam, medical decision making, and the department course for this patient. I have also personally directed, reviewed, and agree with the discharge instructions and disposition. <Amari Oscar - Last Filed: 10/12/18 04:46> Disposition/Present on Arrival - Present on Arrival Any Indicators Present on Arrival: No History of DVT/PE: No History of Uncontrolled Diabetes: No Urinary Catheter: No History of Decub. Ulcer: No History Surgical Site Infection Following: None - Disposition Have Diagnosis and Disposition been Completed?: Yes Disposition Time: 04:47 Patient Plan: Observation <Amari Oscar - Last Filed: 10/12/18 04:46> <Mook Grace - Last Filed: 10/12/18 10:43> - Disposition Diagnosis: Epistaxis, recurrent, Elevated INR Disposition: HOSPITALIZED Patient Problems: Current Active Problems Problem Status Onset Epistaxis, recurrent Acute Elevated INR Acute Condition: STABLE
[2018-10-12 01:06] LABS: HEMOGLOBIN 9.8 g/dL (12.0-16.0); MEAN CORPUSCULAR HEMOGLOBIN 27.5 pg (25.0-35.0); MEAN PLATELET VOLUME 9.9 fl (7.0-11.0); RBC 3.56 10^6/uL (3.5-6.1); RED CELL DISTRIBUTION WIDTH 15.8 % (11.5-14.5); WHITE BLOOD COUNT 11.1 10^3/uL (4.5-11.0)
[2018-10-12 01:27] LABS: PARTIAL THROMBOPLASTIN TIME 58.7 Seconds (26.9-38.3)
[2018-10-12 01:28] LABS: PROTHROMBIN TIME 82.1 SECONDS (9.4-12.5)
[2018-10-12 01:30] LABS: INR 7.4
[2018-10-12 02:14] LABS: ALBUMIN 3.1 g/dL (3.0-4.8); CALCIUM 8.3 mg/dL (8.4-10.5)
[2018-10-12 03:51] LABS: HEMOGLOBIN 9.1 g/dL (12.0-16.0); MEAN CELL VOLUME 84.4 fl (80.0-105.0); MEAN CORPUSCULAR HEMOGLOBIN 27.2 pg (25.0-35.0); MEAN CORPUSCULAR HGB CONC 32.3 g/dl (31.0-37.0); RBC 3.34 10^6/uL (3.5-6.1); RED CELL DISTRIBUTION WIDTH 15.5 % (11.5-14.5)
[2018-10-12] MEDS ORDERED: Sodium Chloride 0.9% 500 ML IV STA (07:50)
--- NOTE | 2018-10-12 08:25 | CP.PCM.CON ---
History of Present Illness - History of Present Illness History of Present Illness: MICU CONSULT NOTE REASON FOR CONSULT: HYPOTENSION HPI Patient is 73yo female with PMHx of CHF, EF56%, Afib on Coumadin, morbid obesity , BMI>100, chronic lymphedema, presents from home with 2 day history of nose bleeding. Pt started 2 days ago, and has not stopped. In the ER, INR noted to be supratherapeutic, left nostril packed, FFP started, VitK given. ICU consulted for hypotension, BP 871/36. Upon my evaluation, PRIOR to fluid boluses infusion, BP 95/52, HR 60s, pt is AAOx3. Pt's reports she takes MIdodrine 10mg TID, and SBP ranges 90-100. Pt denies fever, chills, cough, CP, SOB, palpitations, WINTERS, dizziness. No other constitutional symptoms. PMhx as above PSHx as above Meds as per EMR [employer] NKDA Social denies smoking, EtOH, drug use ROS as per HPI FHx NC Review of Systems - Review of Systems Review of Systems: as per HPI Past Patient History - Infectious Disease Hx of Infectious Diseases: None - Tetanus Immunizations Tetanus Immunization: Unknown - Past Social History Smoking Status: Never Smoked - CARDIAC Hx Cardiac Disorders: Yes (palpitations, afib) Hx Angina: Yes Hx Cardia Arrhythmia: Yes Hx Congestive Heart Failure: Yes Hx Hypotension: Yes Hx Pacemaker: No Hx Peripheral Edema: Yes (ble +4 pitting) Hx Peripheral Vascular Disease: Yes (lymphadema) - PULMONARY Hx Chronic Obstructive Pulmonary Disease (COPD): Yes (asthma, pneumonia) - NEUROLOGICAL Hx Neurological Disorder: No - HEENT Hx HEENT Problems: Yes (glasses) Other/Comment: thrush to oral cavity and tongue - RENAL Hx Chronic Kidney Disease: No - ENDOCRINE/METABOLIC Hx Diabetes Mellitus Type 2: Yes - HEMATOLOGICAL/ONCOLOGICAL Hx Blood Disorders: Yes (septicemia) Hx Anemia: Yes - INTEGUMENTARY Hx Dermatological Problems: Yes (chronic venous stasis dermatitis ble) Other/Comment: pt is obese, right outer thigh skin openings healed, redness, hard brown dry skin, dimpling to left thigh, pt c/o that she, sometimes has drainage from left thigh. both lower legs and feet dry skin. redness and discoloration to right abd fold healed, ble +4 pitting edema & brown discolored dry skin, dry skin and toenails both feet, multiple healing unmeasurable wounds to b/l buttocks, irregular wound left buttock red, multiple wounds in various stages of healing to entire abd, multiple areas of red foul smelling and draining light green purulent drainage wounds to upper and lower abd, discolored brown skin to abd, healing wounds to b/l thighs - MUSCULOSKELETAL/RHEUMATOLOGICAL Hx Falls: No - GASTROINTESTINAL Hx Gastrointestinal Disorders: Yes (benign mass removed from abd 30 yrs ago) Other/Comment: morbid obesity, blood in stool - GENITOURINARY/GYNECOLOGICAL Hx Genitourinary Disorders: Yes Hx Hematuria: Yes Hx Incontinence: Yes (urine and stool) Hx Urinary Tract Infection: Yes - PSYCHIATRIC Hx Psychophysiologic Disorder: No Hx Substance Use: No - SURGICAL HISTORY Hx Cardiac Catheterization: Yes Hx Mastectomy: No Other/Comment: benign mass removed from abd over 30 yrs ago - ANESTHESIA Hx Anesthesia: Yes Meds Allergies/Adverse Reactions: Allergies Allergy/AdvReac Type Severity Reaction Status Date / Time No Known Allergies Allergy Verified 07/10/18 04:46 - Medications Medications: Current Medications Sodium Chloride (Sodium Chloride 0.9%) 500 mls @ 999 mls/hr IV .Q31M STA Stop: 10/12/18 08:20 Physical Exam - Constitutional Appears: Non-toxic, No Acute Distress Additional comments: morbidly obese - Head Exam Head Exam: NORMAL INSPECTION - Eye Exam Eye Exam: Normal appearance - ENT Exam ENT Exam: Mucous Membranes Dry Additional comments: LEF nostril packed, dry - Neck Exam Neck exam: Positive for: Full Rom - Respiratory Exam Respiratory Exam: Clear to Auscultation Bilateral, NORMAL BREATHING PATTERN - Cardiovascular Exam Cardiovascular Exam: REGULAR RHYTHM, +S1, +S2 - GI/Abdominal Exam GI & Abdominal Exam: Normal Bowel Sounds, Soft - Extremities Exam Additional comments: +lymphedema - Skin Skin Exam: Warm Results - Vital Signs Recent Vital Signs: Last Vital Signs Temp 98.1 F 10/12/18 06:48 Pulse 70 10/12/18 06:48 Resp 16 10/12/18 06:48 BP 83/36 L 10/12/18 06:48 Pulse Ox 90 L 10/12/18 06:48 - Labs Result Diagrams: 10/12/18 03:05 10/12/18 00:18 Labs: Laboratory Results - last 24 hr 10/12/18 10/12/18 10/12/18 00:18 00:18 00:18 WBC 11.1 H RBC 3.56 Hgb 9.8 L Hct 30.6 L MCV 86.0 MCH 27.5 MCHC 32.0 RDW 15.8 H Plt Count 415 MPV 9.9 PT 82.1 H INR 7.40 H* APTT 58.7 H Sodium 134 Potassium 3.7 Chloride 92 L Carbon Dioxide 29 Anion Gap 17 BUN 43 H Creatinine 3.3 H Est GFR ( Amer) 17 Est GFR (Non-Af Amer) 14 Random Glucose 110 Calcium 8.3 L Total Bilirubin 1.0 AST 45 H D ALT 18 Alkaline Phosphatase 347 H D Total Protein 6.3 Albumin 3.1 Globulin 3.1 Albumin/Globulin Ratio 1.0 L Blood Type Antibody Screen BBK History Checked 10/12/18 10/12/18 03:05 03:05 WBC 11.0 RBC 3.34 L Hgb 9.1 L Hct 28.2 L MCV 84.4 MCH 27.2 MCHC 32.3 RDW 15.5 H Plt Count 347 MPV 10.0 PT INR APTT Sodium Potassium Chloride Carbon Dioxide Anion Gap BUN Creatinine Est GFR ( Amer) Est GFR (Non-Af Amer) Random Glucose Calcium Total Bilirubin AST ALT Alkaline Phosphatase Total Protein Albumin Globulin Albumin/Globulin Ratio Blood Type O POSITIVE Antibody Screen Negative BBK History Checked Patient has bt - Imaging and Cardiology Chest x-ray Status: Image reviewed by me Assessment & Plan - Assessment and Plan (Free Text) Assessment: 73yo female with epistaxis and hypotension that resolved Epistaxis Afib on A/C CHF Hypotension, resolved - currently afebrile, BP stable, 92/52, baseline SBP 90-100, on Midodrine 10mg TID - HH stable, INR 7 Recommend: - IVF bolus 500cc - resume Midodrine 10mg TID PO - check lactate - ENT consult - hold COumadin - VItK 10mg IV x 1 - Hold BP meds for now - BP is at baseline, pending fluid bolus, and midodrine 10mg - monitor closely on med surg
--- NOTE | 2018-10-12 09:47 | RAD ---
Date of service: 10/12/2018 HISTORY: medical clearance COMPARISON: 09/16/2018 FINDINGS: LUNGS: No active pulmonary disease. PLEURA: No significant pleural effusion identified, no pneumothorax apparent. CARDIOVASCULAR: Aortic calcification Normal cardiac size. No pulmonary vascular congestion. OSSEOUS STRUCTURES: No significant abnormalities. VISUALIZED UPPER ABDOMEN: Normal. OTHER FINDINGS: None. IMPRESSION: No active disease.
[2018-10-12] MEDS ORDERED: Digoxin 125 mcg (0.125 mg) Tab PO SCH (10:00)
[2018-10-12 10:18] LABS: VENOUS BLOOD GAS BASE EXCESS 9.1 mmol/L (0.0-2.0); VENOUS BLOOD GAS PO2 40 mm/Hg (30-55); VENOUS BLOOD PH 7.47 (7.32-7.43)
[2018-10-12] MEDS: Pantoprazole 40 mg EC Tab PO SCH (10:28)
[2018-10-12] MEDS: Levothyroxine 25 MCG TAB PO SCH (10:30)
[2018-10-12] MEDS: Sodium Chloride 0.45% 1,000 ML IV SCH (10:31)
[2018-10-12] MEDS: diltiaZEM 120 mg/24 Hours CD Cap PO SCH (10:34)
[2018-10-12] MEDS: Enoxaparin 30 mg Syringe SC SCH (10:38)
--- NOTE | 2018-10-12 10:48 | CARD ---
APPROVED REPORT Date of service: 10/12/2018 EKG Measurement Heart [id number] <Conclusion> Atrial fibrillation Incomplete right bundle branch block ST & T wave abnormality, consider anterolateral ischemia or digitalis effect Somatic Tremors. Abnormal ECG
[2018-10-12] MEDS: Albuterol-Ipratrop 3 mg / 0.5 (3 ml) UD IH SCH ×3 (11:23→19:31)
[2018-10-12] MEDS ORDERED: Ergocalciferol 50,000 Intl Units Cap PO SCH (12:00)
[2018-10-12] MEDS: Albumin Human 25% (12.5 gm/50 ml) IV SCH ×2 (13:23→19:55)
[2018-10-12] MEDS: Digoxin 125 mcg (0.125 mg) Tab PO SCH (13:25)
[2018-10-12 14:05] LABS: VENOUS BLOOD GAS PO2 45 mm/Hg (30-55); VENOUS BLOOD PH 7.43 (7.32-7.43)
--- NOTE | 2018-10-12 14:24 | CP.PCM.CON ---
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 morbid obesity left kidney cyst Plan No acute need for renal replacement therapy at this time. Maintain hemodynamics stable. Avoid hypotension. Patient not on ACEI/ARB due to recent CRIS and low BP. on a fib rate control meds. Monitor Input/Output, daily weights and renal function with basic metabolic panel started iron 324 mg TID and MVI daily and weekly Vit D supplement lytes as needed agree with gentle IVF. also ordered for IV albumin Dose meds/antibiotics for reduced GFR. Avoid fleets enema/magnesium based laxatives. Avoid nephrotoxins/NSAIDs/ iodinated contrast (unless needed emergently) Glycemic control. metformin on hold Further work up/management as per primary team pt stable from renal perspective Thanks for allowing me to participate in care of your patient. Will follow patient with you. Please call if any Qs. had d/w team. 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 pt came with nose bleed and supra-therapeutic INR Denies OTC/herbal meds or NSAIDs No recent iodinated contrast exposure. Noted obvious episodes of low BP (83/47s). reports chronic legs swelling. had 2 loose stool yesterday. also cough + ROS: Cardiovascular: No chest pain. Pulmonary: improved chronic shortness of breath Gastrointestinal: denies abdominal pain No nausea. No vomiting. Genitourinary: No pain while urinating. Denies blood in urine. All other negative except as mentioned in HPI. has chronic legs swelling but better now Physical Examination: General Appearance: Comfortable, in no acute respiratory distress, co-operative. morbidly obese ++ Vitals reviewed and noted as below Head; Atraumatic, normocephalic ENT: no ulcers no thrush. Tongue is midline. Oropharynx: no rash or ulcers. nasal packing + EYES: Pupils are equal, round and reactive to light accommodation. Eye muscles and extraocular movement intact. Sclera is anicteric. Neck; supple no lymphadenopathy, no thyromegaly or bruit Lungs: normal respiratory rate/effort. Breath sounds bilateral equal and clear Heart: Normal rate. s1s2 normal. No rub or gallop. Extremities: no pitting edema. No varicose veins Neurological: Patient is alert, awake and oriented to person, place and time. No focal deficit. Strength bilateral appropriate and equal Skin: Warm and dry. Normal turgor. No rash. Palpitation: Normal elasticity for age Abdomen: Abdomen is soft. Bowel sounds +. There is no abdominal tenderness, no guarding/rigidity no organomegaly Psych: normal insight and normal affect/mood MSK: no joint tenderness or swelling. Digits and nails normal, no deformity : kidney or bladder not palpable Labs/imaging reviewed. Past medical history, past surgical history, family history, social history, allergy reviewed and noted as below Family hx: no hx of CKD. Rest non-contributory Echo; normal lvef, severe MR/TR/[place] renal imaging: left kidney cyst TSAT/Ferritin 12/356, SPEP/DILSHAD neg and normal FLC assay Vit D <12.8 PTH 286 urine alb/cr 126 mg/g Past Patient History - Infectious Disease Hx of Infectious Diseases: None - Tetanus Immunizations Tetanus Immunization: Unknown - Past Social History Smoking Status: Never Smoked - CARDIAC Hx Cardiac Disorders: Yes (palpitations, afib) Hx Angina: Yes Hx Cardia Arrhythmia: Yes Hx Congestive Heart Failure: Yes Hx Hypotension: Yes Hx Pacemaker: No Hx Peripheral Edema: Yes (ble +4 pitting) Hx Peripheral Vascular Disease: Yes (lymphadema) - PULMONARY Hx Chronic Obstructive Pulmonary Disease (COPD): Yes (asthma, pneumonia) - NEUROLOGICAL Hx Neurological Disorder: No - HEENT Hx HEENT Problems: Yes (glasses) Other/Comment: thrush to oral cavity and tongue - RENAL Hx Chronic Kidney Disease: No - ENDOCRINE/METABOLIC Hx Diabetes Mellitus Type 2: Yes - HEMATOLOGICAL/ONCOLOGICAL Hx Blood Disorders: Yes (septicemia) Hx Anemia: Yes - INTEGUMENTARY Hx Dermatological Problems: Yes (chronic venous stasis dermatitis ble) Other/Comment: pt is obese, right outer thigh skin openings healed, redness, hard brown dry skin, dimpling to left thigh, pt c/o that she, sometimes has drainage from left thigh. both lower legs and feet dry skin. redness and discoloration to right abd fold healed, ble +4 pitting edema & brown discolored dry skin, dry skin and toenails both feet, multiple healing unmeasurable wounds to b/l buttocks, irregular wound left buttock red, multiple wounds in various stages of healing to entire abd, multiple areas of red foul smelling and draining light green purulent drainage wounds to upper and lower abd, discolored brown skin to abd, healing wounds to b/l thighs - MUSCULOSKELETAL/RHEUMATOLOGICAL Hx Falls: No - GASTROINTESTINAL Hx Gastrointestinal Disorders: Yes (benign mass removed from abd 30 yrs ago) Other/Comment: morbid obesity, blood in stool - GENITOURINARY/GYNECOLOGICAL Hx Genitourinary Disorders: Yes Hx Hematuria: Yes Hx Incontinence: Yes (urine and stool) Hx Urinary Tract Infection: Yes - PSYCHIATRIC Hx Psychophysiologic Disorder: No Hx Substance Use: No - SURGICAL HISTORY Hx Cardiac Catheterization: Yes Hx Mastectomy: No Other/Comment: benign mass removed from abd over 30 yrs ago - ANESTHESIA Hx Anesthesia: Yes Meds Allergies/Adverse Reactions: Allergies Allergy/AdvReac Type Severity Reaction Status Date / Time No Known Allergies Allergy Verified 07/10/18 04:46 - Medications Medications: Current Medications Albumin Human (Albumin Human 25% (12.5 Gm/50 Ml)) 25 gm IV Q6 [facility] Stop: 10/12/18 18:01 Last Admin: 10/12/18 13:23 Dose: 25 gm Albuterol/Ipratropium (Duoneb 3 Mg/0.5 Mg (3 Ml) Ud) 3 ml IH [id number] [facility] Last Admin: 10/12/18 12:59 Dose: 3 ml Digoxin (Digoxin) 0.125 mg PO QOTHERDAY [facility] Last Admin: 10/12/18 13:25 Dose: Not Given Diltiazem HCl (Cardizem Cd) 120 mg PO DAILY [facility] Last Admin: 10/12/18 10:34 Dose: Not Given Enoxaparin Sodium (Lovenox) 30 mg SC DAILY [facility]; Protocol Last Admin: 10/12/18 10:38 Dose: 30 mg Ergocalciferol (Drisdol 50,000 Intl Units Cap) 1 cap PO Q7D [facility] Last Admin: 10/12/18 13:23 Dose: 1 cap Ferrous Gluconate (Fergon) 324 mg PO TID [facility] Last Admin: 10/12/18 13:23 Dose: 324 mg Sodium Chloride (Sodium Chloride 0.45%) 1,000 mls @ 30 mls/hr IV .Q24H [facility] Last Admin: 10/12/18 10:31 Dose: 30 mls/hr Levothyroxine Sodium (Synthroid) 25 mcg PO DAILY [facility] Last Admin: 10/12/18 10:30 Dose: 25 mcg Metformin HCl (Glucophage) 500 mg PO DAILY [facility] Pantoprazole Sodium (Protonix Ec Tab) 40 mg PO DAILY [facility] Last Admin: 10/12/18 10:28 Dose: 40 mg Sodium Chloride ([place] Nasal [place]) 0 ml NS QID [facility] Last Admin: 10/12/18 13:27 Dose: 2 spray Vitamin B Complex/Vit C/Folic Acid (Nephro-Miguelito) 1 tab PO 0800 [facility] Results - Vital Signs Recent Vital Signs: Last Vital Signs Temp 97.5 F L 10/12/18 11:15 Pulse 64 10/12/18 11:33 Resp 16 10/12/18 11:15 BP 101/61 10/12/18 11:15 Pulse Ox 91 L 10/12/18 11:15 - Labs Result Diagrams: 10/12/18 03:05 10/12/18 00:18 Labs: Laboratory Results - last 24 hr 10/12/18 10/12/18 10/12/18 00:18 00:18 00:18 WBC 11.1 H RBC 3.56 Hgb 9.8 L Hct 30.6 L MCV 86.0 MCH 27.5 MCHC 32.0 RDW 15.8 H Plt Count 415 MPV 9.9 PT 82.1 H INR 7.40 H* APTT 58.7 H pO2 VBG pH VBG pCO2 VBG HCO3 VBG Total CO2 VBG O2 Sat (Calc) VBG Base Excess VBG Potassium Glucose Lactate FiO2 Blood Gas Comments Crit Value Called To Crit Value Called By Blood Gas Notified Time Sodium 134 Potassium 3.7 Chloride 92 L Carbon Dioxide 29 Anion Gap 17 BUN 43 H Creatinine 3.3 H Est GFR ( Amer) 17 Est GFR (Non-Af Amer) 14 POC Glucose (mg/dL) Random Glucose 110 Calcium 8.3 L Total Bilirubin 1.0 AST 45 H D ALT 18 Alkaline Phosphatase 347 H D Total Protein 6.3 Albumin 3.1 Globulin 3.1 Albumin/Globulin Ratio 1.0 L Venous Blood Potassium Digoxin Blood Type Antibody Screen BBK History Checked 10/12/18 10/12/18 10/12/18 03:05 03:05 10:00 WBC 11.0 RBC 3.34 L Hgb 9.1 L Hct 28.2 L MCV 84.4 MCH 27.2 MCHC 32.3 RDW 15.5 H Plt Count 347 MPV 10.0 PT INR APTT pO2 VBG pH VBG pCO2 VBG HCO3 VBG Total CO2 VBG O2 Sat (Calc) VBG Base Excess VBG Potassium Glucose Lactate FiO2 Blood Gas Comments Crit Value Called To Crit Value Called By Blood Gas Notified Time Sodium Potassium Chloride Carbon Dioxide Anion Gap BUN Creatinine Est GFR ( Amer) Est GFR (Non-Af Amer) POC Glucose (mg/dL) Random Glucose Calcium Total Bilirubin AST ALT Alkaline Phosphatase Total Protein Albumin Globulin Albumin/Globulin Ratio Venous Blood Potassium Digoxin 1.9 Blood Type O POSITIVE Antibody Screen Negative BBK History Checked Patient has bt 10/12/18 10/12/18 10/12/18 10:05 11:29 13:58 WBC RBC Hgb Hct MCV MCH MCHC RDW Plt Count MPV PT INR APTT pO2 40 45 VBG pH 7.47 H 7.43 VBG pCO2 47.0 51.0 VBG HCO3 34.2 H 33.9 H VBG Total CO2 35.6 H 35.5 H VBG O2 Sat (Calc) 80.4 H 84.9 H VBG Base Excess 9.1 H 8.0 H VBG Potassium 2.9 L 3.3 L Glucose 129 H 120 H Lactate 2.4 H 3.4 H FiO2 21.0 21.0 Blood Gas Comments Lactate 2.4 cv Crit Value Called To Yolanda gordillo rn Ashok Crit Value Called By Gallito Galaviz Blood Gas Notified Time 1014 1405 Sodium 137.0 140.0 Potassium Chloride 99.0 100.0 Carbon Dioxide Anion Gap BUN Creatinine Est GFR ( Amer) Est GFR (Non-Af Amer) POC Glucose (mg/dL) 119 H Random Glucose Calcium Total Bilirubin AST ALT Alkaline Phosphatase Total Protein Albumin Globulin Albumin/Globulin Ratio Venous Blood Potassium 2.9 L 3.3 L Digoxin Blood Type Antibody Screen BBK History Checked
--- NOTE | 2018-10-12 20:07 | HP ---
DATE OF EXAM: 10/12/2018 HISTORY OF PRESENT ILLNESS: She came into the emergency room with gross epistaxis, bloody nose that would not stop at home for about 24 hours, came in to the emergency room, it would not stop. The ER doctor had to give her fresh frozen plasma and vitamin K, Primatene. They also called in Ear, Nose and Throat and they also called in an Intensive Care Unit doctor for evaluation this morning to help with the nose bleed. She has finally got the nose bleed stopped. There was going to be a talk of putting her in the Intensive Care Unit. Thank God the nose bleed stopped at this time. She is feeling a little bit better, but the throat is all crusted with blood. She was acute. She had an elevated INR greater than 7. She was taken off Coumadin. She is a 73-year-old black female who I know very well from house calls and on admission. She has history of AFib, pneumonias, chronic leg edema, CHF. She has been morbidly, obese over 700 pounds, but then been an anorexic for months where she is down to about 300 pounds, she does not know why. She had a CAT scan of the chest, abdomen and pelvis, which was normal. She has been taken a Coumadin and we had to stop it when the nose bleed started, it would not go away. She is also very weak and short of breath and not sleeping well. Quite ill when she got to the emergency room. PAST MEDICAL HISTORY: History of palpitations, AFib, angina, arrhythmia, CHF, hypotension, +4 pitting edema, lymphedema, asthma, pneumonia, COPD. She had thrush in the past, diabetes. She has been septic in the past, anemia. She has chronic venous stasis of bilateral lower extremities, bilateral thighs have openings with hardness and multiple cellulitis and abscesses and purulent drainage. She had a benign mass removed from her abdomen 30 years ago. She had hematuria. She had blood in the stool. She had urinary tract infections. She had cardiac catheterizations. FAMILY HISTORY: No known family history. SOCIAL HISTORY: Non-smoker, non-drinker, no drugs. ALLERGIES: NO KNOWN DRUG ALLERGIES. MEDICATIONS: She has been on Coumadin for her AFib, apparently the INR went too high to 7. Duonebs, Lotrisone cream, Flonase, Lasix, Synthroid, Glucophage, Silvadene, Pulmicort, Bactroban cream, Protonix, Periactin, and midodrine due to tachycardia. The ear doctor wants me to keep her overnight for observation. There was almost going to be an admission until the nose bleed stopped. So it is mildly packed. I called an ENT. I have been discussing it with the ear doctor, I agree for observation admission. REVIEW OF SYSTEMS: She had nose bleeds. She is weak. A little sore throat. No shortness of breath. No chest pain. No abdominal pain. No nausea or vomiting. PHYSICAL EXAMINATION GENERAL: Well appearing, nontoxic, uncomfortable. Alert and oriented x3. VITAL SIGNS: She has 97 temperature, 105/41 blood pressure. HEENT: Head is atraumatic, normocephalic. Nose was bleeding. Throat is all crusted with blood. Extraocular muscles intact. The throat is completely dry. It bled for maybe 24 or 36 hours, now it is just crusted. She has good mouth care. CARDIOPULMONARY: A regular rhythm on the heart. ABDOMEN: Soft, obese, nontender. EXTREMITIES: Plus 4 x 4 pitting edema. NEUROLOGIC: GCS is 15. Cranial nerves II through XII grossly intact. Speech is normal. Alert and oriented x3. SKIN: Warm and dry, but she has got some bilateral thigh ulcers. LABORATORY DATA: She has 11 white count, 9.8 hemoglobin, 30.6 hematocrit with 415 platelets. INR was 7.4. We will check tomorrow's INR. Sodium is 134, potassium is 3.7, BUN 43, creatinine 3.20. We put her on 1 liter of IV fluids for the acute kidney injury. GFR is down to 14, sugar is 110, calcium is 8.3, total bili is 1, AST is 45, ALT is 18, alk phos 347, total protein 6.3. RECOMMENDATIONS: She had bleeding for 3 days, took multiple medicines to stop the bleeding. INR was elevated, greater than 7. We will watch her for 24 hours to make sure the bleeding does not come back. ENT will come in and take the packing out hopefully tomorrow of the nose. I discussed this at length with the patient and the that we will be discharging her tomorrow after the next 24 hours goes well, I am hoping. There will be multiple be consults, ENT and renal. IV fluids at a low rate. We will check a digoxin level, TSH. She will be on Lovenox while she is off the Coumadin and hopefully we will be able to discharge her home tomorrow. That was discussed with the family, they understand that. See her for nose bleed, elevated INR, coagulopathy, acute kidney injury. Alan Mann DO
[2018-10-13] MEDS: Albuterol-Ipratrop 3 mg / 0.5 (3 ml) UD IH SCH ×4 (01:08→20:01)
[2018-10-13 07:31] LABS: INR 2.18; PROTHROMBIN TIME 24.6 SECONDS (9.4-12.5)
[2018-10-13 07:33] LABS: ALB/GLOB RATIO 1.1 (1.1-1.8); ALBUMIN 2.9 g/dL (3.0-4.8); CALCIUM 7.7 mg/dL (8.4-10.5); HEMOGLOBIN 7.2 g/dL (12.0-16.0); MEAN CELL VOLUME 87.7 fl (80.0-105.0); MEAN CORPUSCULAR HEMOGLOBIN 27.7 pg (25.0-35.0); MEAN CORPUSCULAR HGB CONC 31.6 g/dl (31.0-37.0); MEAN PLATELET VOLUME 9.6 fl (7.0-11.0); RBC 2.6 10^6/uL (3.5-6.1); WHITE BLOOD COUNT 8.3 10^3/uL (4.5-11.0)
[2018-10-13] MEDS: Multivitamin Vitamin B Complex (Nephro-Vite) Tab PO SCH (08:53)
--- NOTE | 2018-10-13 09:24 | CP.PCM.CON ---
History of Present Illness - History of Present Illness History of Present Illness: This is a 73 yo female with PMHx of CHF , EF 56% , A- Fib , morbid obesity , chronic lymphedema , presents from home with history of recurrent epistaxis. Patient states recurrent left sided nose bleeds began ~ 3 days ago. She stopped her coumadin but had a severe episode which she could not control with pressure .Patient was brought to [facility] [place] [facility] - her INR was noted to be supratherapeutic. Left nasal cavity was packed . Patient was given FFP / Vitamin K - bleeding controlled . Patient states she is on home O2 , typically humidified. History of recurrent serous otitis media - c/o decreased hearing / tinnitus , denies otorrhea or otalgia. No other current ENT complaints Review of Systems - EENT Eyes: As Per HPI Past Patient History - Infectious Disease Hx of Infectious Diseases: None - Tetanus Immunizations Tetanus Immunization: Unknown - Past Social History Smoking Status: Never Smoked - CARDIAC Hx Cardiac Disorders: Yes (palpitations, afib) Hx Angina: Yes Hx Cardia Arrhythmia: Yes Hx Congestive Heart Failure: Yes Hx Hypotension: Yes Hx Pacemaker: No Hx Peripheral Edema: Yes (ble +4 pitting) Hx Peripheral Vascular Disease: Yes (lymphadema) - PULMONARY Hx Chronic Obstructive Pulmonary Disease (COPD): Yes (asthma, pneumonia) - NEUROLOGICAL Hx Neurological Disorder: No - HEENT Hx HEENT Problems: Yes (glasses) Other/Comment: thrush to oral cavity and tongue - RENAL Hx Chronic Kidney Disease: No - ENDOCRINE/METABOLIC Hx Diabetes Mellitus Type 2: Yes - HEMATOLOGICAL/ONCOLOGICAL Hx Blood Disorders: Yes (septicemia) Hx Anemia: Yes - INTEGUMENTARY Hx Dermatological Problems: Yes (chronic venous stasis dermatitis ble) Other/Comment: pt is obese, right outer thigh skin openings healed, redness, hard brown dry skin, dimpling to left thigh, pt c/o that she, sometimes has drainage from left thigh. both lower legs and feet dry skin. redness and discoloration to right abd fold healed, ble +4 pitting edema & brown discolored dry skin, dry skin and toenails both feet, multiple healing unmeasurable wounds to b/l buttocks, irregular wound left buttock red, multiple wounds in various stages of healing to entire abd, multiple areas of red foul smelling and draining light green purulent drainage wounds to upper and lower abd, discolored brown skin to abd, healing wounds to b/l thighs - MUSCULOSKELETAL/RHEUMATOLOGICAL Hx Falls: No - GASTROINTESTINAL Hx Gastrointestinal Disorders: Yes (benign mass removed from abd 30 yrs ago) Other/Comment: morbid obesity, blood in stool - GENITOURINARY/GYNECOLOGICAL Hx Genitourinary Disorders: Yes Hx Hematuria: Yes Hx Incontinence: Yes (urine and stool) Hx Urinary Tract Infection: Yes - PSYCHIATRIC Hx Psychophysiologic Disorder: No Hx Substance Use: No - SURGICAL HISTORY Hx Cardiac Catheterization: Yes Hx Mastectomy: No Other/Comment: benign mass removed from abd over 30 yrs ago - ANESTHESIA Hx Anesthesia: Yes Meds Allergies/Adverse Reactions: Allergies Allergy/AdvReac Type Severity Reaction Status Date / Time No Known Allergies Allergy Verified 07/10/18 04:46 - Medications Medications: Current Medications Albuterol/Ipratropium (Duoneb 3 Mg/0.5 Mg (3 Ml) Ud) 3 ml IH [id number] [facility] Last Admin: 10/13/18 07:31 Dose: 3 ml Digoxin (Digoxin) 0.125 mg PO QOTHERDAY [facility] Last Admin: 10/12/18 13:25 Dose: Not Given Diltiazem HCl (Cardizem Cd) 120 mg PO DAILY [facility] Last Admin: 10/12/18 10:34 Dose: Not Given Enoxaparin Sodium (Lovenox) 30 mg SC DAILY [facility]; Protocol Last Admin: 10/12/18 10:38 Dose: 30 mg Ergocalciferol (Drisdol 50,000 Intl Units Cap) 1 cap PO Q7D [facility] Last Admin: 10/12/18 13:23 Dose: 1 cap Ferrous Gluconate (Fergon) 324 mg PO TID [facility] Last Admin: 10/12/18 19:56 Dose: 324 mg Sodium Chloride (Sodium Chloride 0.45%) 1,000 mls @ 30 mls/hr IV .Q24H [facility] Last Admin: 10/12/18 10:31 Dose: 30 mls/hr Levothyroxine Sodium (Synthroid) 25 mcg PO DAILY [facility] Last Admin: 10/12/18 10:30 Dose: 25 mcg Metformin HCl (Glucophage) 500 mg PO DAILY [facility] Pantoprazole Sodium (Protonix Ec Tab) 40 mg PO DAILY [facility] Last Admin: 10/12/18 10:28 Dose: 40 mg Sodium Chloride ([place] Nasal [place]) 0 ml NS QID [facility] Last Admin: 10/13/18 04:53 Dose: 1 spray Vitamin B Complex/Vit C/Folic Acid (Nephro-Miguelito) 1 tab PO 0800 [facility] Last Admin: 10/13/18 08:53 Dose: 1 tab Physical Exam - Constitutional Appears: Non-toxic, No Acute Distress - Head Exam Head Exam: ATRAUMATIC, NORMAL INSPECTION - ENT Exam ENT Exam: Normal External Ear Exam (Ears - AD - EAC / TM wnl , - EAC wnl , TM + effusion Nose - atrophic mucosa on right , packing on left - no active epistaxis ) - Expanded ENT Exam Expanded Mouth exam: dry mucosa (tongue with thrush ) Teeth exam: dental caries Throat exam: Normal Inspection (no bleeding noted ) - Neck Exam Neck exam: Positive for: Normal Inspection - Respiratory Exam Respiratory Exam: NORMAL BREATHING PATTERN - Neurological Exam Neurological exam: Alert, Oriented x3 - Psychiatric Exam Psychiatric exam: Normal Affect, Normal Mood Results - Vital Signs Recent Vital Signs: Last Vital Signs Temp 98.7 F 10/13/18 07:30 Pulse 67 10/13/18 07:30 Resp 90 H 10/13/18 07:30 BP 100/40 L 10/12/18 14:00 Pulse Ox 98 10/13/18 07:30 - Labs Result Diagrams: 10/13/18 07:00 10/13/18 07:00 Labs: Laboratory Results - last 24 hr 10/12/18 10/12/18 10/12/18 03:05 10:00 10:05 WBC RBC Hgb Hct MCV MCH MCHC RDW Plt Count MPV PT INR pO2 40 VBG pH 7.47 H VBG pCO2 47.0 VBG HCO3 34.2 H VBG Total CO2 35.6 H VBG O2 Sat (Calc) 80.4 H VBG Base Excess 9.1 H VBG Potassium 2.9 L Sodium 137.0 Chloride 99.0 Glucose 129 H Lactate 2.4 H FiO2 21.0 Blood Gas Comments Lactate 2.4 cv Crit Value Called To Yolanda gordillo rn Crit Value Called By Gallito Blood Gas Notified Time 1014 Potassium Carbon Dioxide Anion Gap BUN Creatinine Est GFR ( Amer) Est GFR (Non-Af Amer) POC Glucose (mg/dL) Random Glucose Calcium Total Bilirubin AST ALT Alkaline Phosphatase Total Protein Albumin Globulin Albumin/Globulin Ratio TSH 3rd Generation Venous Blood Potassium 2.9 L Digoxin 1.9 Blood Type O POSITIVE Antibody Screen Negative BBK History Checked Patient has bt 10/12/18 10/12/18 10/12/18 11:29 13:58 15:55 WBC RBC Hgb Hct MCV MCH MCHC RDW Plt Count MPV PT INR pO2 45 VBG pH 7.43 VBG pCO2 51.0 VBG HCO3 33.9 H VBG Total CO2 35.5 H VBG O2 Sat (Calc) 84.9 H VBG Base Excess 8.0 H VBG Potassium 3.3 L Sodium 140.0 Chloride 100.0 Glucose 120 H Lactate 3.4 H FiO2 21.0 Blood Gas Comments Crit Value Called To Ashok Crit Value Called By Ab Blood Gas Notified Time 1405 Potassium Carbon Dioxide Anion Gap BUN Creatinine Est GFR ( Amer) Est GFR (Non-Af Amer) POC Glucose (mg/dL) 119 H 114 H Random Glucose Calcium Total Bilirubin AST ALT Alkaline Phosphatase Total Protein Albumin Globulin Albumin/Globulin Ratio TSH 3rd Generation Venous Blood Potassium 3.3 L Digoxin Blood Type Antibody Screen BBK History Checked 10/12/18 10/13/18 10/13/18 21:21 06:18 06:36 WBC RBC Hgb Hct MCV MCH MCHC RDW Plt Count MPV PT INR pO2 VBG pH VBG pCO2 VBG HCO3 VBG Total CO2 VBG O2 Sat (Calc) VBG Base Excess VBG Potassium Sodium Chloride Glucose Lactate FiO2 Blood Gas Comments Crit Value Called To Crit Value Called By Blood Gas Notified Time Potassium Carbon Dioxide Anion Gap BUN Creatinine Est GFR ( Amer) Est GFR (Non-Af Amer) POC Glucose (mg/dL) 93 76 67 Random Glucose Calcium Total Bilirubin AST ALT Alkaline Phosphatase Total Protein Albumin Globulin Albumin/Globulin Ratio TSH 3rd Generation Venous Blood Potassium Digoxin Blood Type Antibody Screen BBK History Checked 10/13/18 10/13/18 10/13/18 07:00 07:00 07:00 WBC 8.3 D RBC 2.60 L Hgb 7.2 L Hct 22.8 L MCV 87.7 D MCH 27.7 MCHC 31.6 RDW 16.0 H Plt Count 269 MPV 9.6 PT 24.6 H INR 2.18 pO2 VBG pH VBG pCO2 VBG HCO3 VBG Total CO2 VBG O2 Sat (Calc) VBG Base Excess VBG Potassium Sodium 135 Chloride 95 L Glucose Lactate FiO2 Blood Gas Comments Crit Value Called To Crit Value Called By Blood Gas Notified Time Potassium 2.9 L* D Carbon Dioxide 32 Anion Gap 11 BUN 41 H Creatinine 2.8 H Est GFR ( Amer) 20 Est GFR (Non-Af Amer) 17 POC Glucose (mg/dL) Random Glucose 66 L Calcium 7.7 L Total Bilirubin 0.9 AST 28 ALT 22 Alkaline Phosphatase 228 H D Total Protein 5.4 L Albumin 2.9 L Globulin 2.6 Albumin/Globulin Ratio 1.1 TSH 3rd Generation Venous Blood Potassium Digoxin Blood Type Antibody Screen BBK History Checked 10/13/18 10/13/18 07:00 08:19 WBC RBC Hgb Hct MCV MCH MCHC RDW Plt Count MPV PT INR pO2 VBG pH VBG pCO2 VBG HCO3 VBG Total CO2 VBG O2 Sat (Calc) VBG Base Excess VBG Potassium Sodium Chloride Glucose Lactate FiO2 Blood Gas Comments Crit Value Called To Crit Value Called By Blood Gas Notified Time Potassium Carbon Dioxide Anion Gap BUN Creatinine Est GFR ( Amer) Est GFR (Non-Af Amer) POC Glucose (mg/dL) 88 Random Glucose Calcium Total Bilirubin AST ALT Alkaline Phosphatase Total Protein Albumin Globulin Albumin/Globulin Ratio TSH 3rd Generation 4.11 Venous Blood Potassium Digoxin Blood Type Antibody Screen BBK History Checked Assessment & Plan (1) Elevated INR Status: Acute (2) Chronic serous otitis media of left ear Status: Acute Comment: prevously dicussed audio / hearing aid evaluation - possible BMT (3) Epistaxis, recurrent Status: Acute Comment: nasal saline QID / humidified O2 / maintain nasal packing 72 hours. Correct INR (4) Acute exacerbation of CHF (congestive heart failure) Status: Acute (5) Asthma exacerbation with COPD (chronic obstructive pulmonary disease) Status: Acute (6) Atrial fibrillation with rapid ventricular response Status: Acute (7) Bronchitis Status: Acute (8) COPD (chronic obstructive pulmonary disease) Status: Acute (9) COPD (chronic obstructive pulmonary disease) with acute bronchitis Status: Acute (10) COPD exacerbation Status: Acute (11) COPD exacerbation Status: Acute (12) Chronic atrial fibrillation Status: Acute (13) Congestive heart failure Status: Acute (14) Dental caries Status: Acute (15) Diabetes mellitus Status: Acute (16) Ejection fraction < 50% Status: Acute (17) Hypotension Status: Acute (18) Oral ulceration Status: Acute (19) Palpitations Status: Acute (20) Pulmonary hypertension Status: Acute (21) Rapid atrial fibrillation Status: Acute (22) Sepsis Status: Acute (23) UTI (urinary tract infection) Status: Acute (24) Ulcer Status: Acute (25) Chronic venous stasis dermatitis of both lower extremities Status: Chronic (26) Morbid obesity Status: Chronic
[2018-10-13] MEDS ORDERED: Darbepoetin Alfa 100 mcg/ml Inj SC ONE (09:27)
[2018-10-13] MEDS ORDERED: Potassium Chloride 40 mEq/30 ml LIQ UD PO ONE (09:27)
[2018-10-13] MEDS: Pantoprazole 40 mg EC Tab PO SCH (10:03)
[2018-10-13] MEDS: Levothyroxine 25 MCG TAB PO SCH (10:03)
[2018-10-13] MEDS: Enoxaparin 30 mg Syringe SC SCH (10:04)
[2018-10-13] MEDS: Sodium Chloride 0.45% 1,000 ML IV SCH (10:04)
[2018-10-13] MEDS: diltiaZEM 120 mg/24 Hours CD Cap PO SCH (10:05)
--- NOTE | 2018-10-13 13:12 | CP.PCM.PN ---
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 Maintain hemodynamics stable. Avoid hypotension. Patient not on ACEI/ARB due to recent CRIS and low BP. on a fib rate control meds. Monitor Input/Output, daily weights and renal function with basic metabolic panel started iron 324 mg TID and MVI daily and weekly Vit D. dose of aransep. PRBC as needed supplement lytes as needed agree with gentle IVF. Dose meds/antibiotics for reduced GFR. Avoid fleets enema/magnesium based laxatives. Avoid nephrotoxins/NSAIDs/ iodinated contrast (unless needed emergently) Glycemic control. metformin on hold Further work up/management as per primary team pt stable from renal perspective Thanks for allowing me to participate in care of your patient. Will follow patient with you. Please call if any Qs. had d/w team. 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 pt came with nose bleed and supra-therapeutic INR Denies OTC/herbal meds or NSAIDs No recent iodinated contrast exposure. Noted obvious episodes of low BP (83/47s). reports chronic legs swelling. had 2 loose stool yesterday. also cough + ROS: uncomfortable due to nasal packing Cardiovascular: No chest pain. Pulmonary: improved chronic shortness of breath Gastrointestinal: denies abdominal pain No nausea. No vomiting. Genitourinary: No pain while urinating. Denies blood in urine. All other negative except as mentioned in HPI. has chronic legs swelling but better now Physical Examination: General Appearance: Comfortable, in no acute respiratory distress, co-operative. morbidly obese ++ Vitals reviewed and noted as below Head; Atraumatic, normocephalic ENT: no ulcers no thrush. Tongue is midline. Oropharynx: no rash or ulcers. nasal packing + EYES: Pupils are equal, round and reactive to light accommodation. Eye muscles and extraocular movement intact. Sclera is anicteric. Neck; supple no lymphadenopathy, no thyromegaly or bruit Lungs: normal respiratory rate/effort. Breath sounds bilateral equal and clear Heart: Normal rate. s1s2 normal. No rub or gallop. Extremities: no pitting edema. No varicose veins Neurological: Patient is alert, awake and oriented to person, place and time. No focal deficit. Strength bilateral appropriate and equal Skin: Warm and dry. Normal turgor. No rash. Palpitation: Normal elasticity for age Abdomen: Abdomen is soft. Bowel sounds +. There is no abdominal tenderness, no guarding/rigidity no organomegaly Psych: normal insight and normal affect/mood MSK: no joint tenderness or swelling. Digits and nails normal, no deformity : kidney or bladder not palpable Labs/imaging reviewed. Past medical history, past surgical history, family history, social history, allergy reviewed and noted as below Family hx: no hx of CKD. Rest non-contributory Echo; normal lvef, severe MR/TR/OH renal imaging: left kidney cyst TSAT/Ferritin 12/356, SPEP/DILSHAD neg and normal FLC assay Vit D <12.8 PTH 286 urine alb/cr 126 mg/g Objective - Vital Signs/Intake and Output Vital Signs (last 24 hours): Temp Pulse Resp BP Pulse Ox 98.7 F 64 90 H 83/33 L 98 10/13/18 07:30 10/13/18 10:05 10/13/18 07:30 10/13/18 10:05 10/13/18 07:30 Intake and Output: 10/13/18 10/13/18 06:59 18:59 Intake Total 120 Balance 120 - Medications Medications: Current Medications Albuterol/Ipratropium (Duoneb 3 Mg/0.5 Mg (3 Ml) Ud) 3 ml IH [id number] Last Admin: 10/13/18 07:31 Dose: 3 ml Calcium/Vitamin D (Oscal-D 250 Mg-125 Units Tab) 1 tab PO DAILY [facility] Digoxin (Digoxin) 0.125 mg PO QOTHERDAY [facility] Last Admin: 10/12/18 13:25 Dose: Not Given Diltiazem HCl (Cardizem Cd) 120 mg PO DAILY [facility] Last Admin: 10/13/18 10:05 Dose: Not Given Enoxaparin Sodium (Lovenox) 30 mg SC DAILY [facility]; Protocol Last Admin: 10/13/18 10:04 Dose: 30 mg Ergocalciferol (Drisdol 50,000 Intl Units Cap) 1 cap PO Q7D [facility] Last Admin: 10/12/18 13:23 Dose: 1 cap Ferrous Gluconate (Fergon) 324 mg PO TID [facility] Last Admin: 10/13/18 10:05 Dose: 324 mg Sodium Chloride (Sodium Chloride 0.45%) 1,000 mls @ 30 mls/hr IV .Q24H [facility] Last Admin: 10/13/18 10:04 Dose: 30 mls/hr Levothyroxine Sodium (Synthroid) 25 mcg PO DAILY [facility] Last Admin: 10/13/18 10:03 Dose: 25 mcg Metformin HCl (Glucophage) 500 mg PO DAILY [facility] Midodrine (Proamatine) 5 mg PO TID [facility] Pantoprazole Sodium (Protonix Ec Tab) 40 mg PO DAILY [facility] Last Admin: 10/13/18 10:03 Dose: 40 mg Sodium Chloride ([place] Nasal [place]) 0 ml NS QID [facility] Last Admin: 10/13/18 10:04 Dose: 2 spray Vitamin B Complex/Vit C/Folic Acid (Nephro-Miguelito) 1 tab PO 0800 [facility] Last Admin: 10/13/18 08:53 Dose: 1 tab Warfarin Sodium (Coumadin) 1 mg PO 1800 [facility]; Protocol - Labs Labs: 10/13/18 07:00 10/13/18 07:00 PT 24.6 SECONDS (9.4-12.5) H 10/13/18 07:00 INR 2.18 10/13/18 07:00 APTT 58.7 Seconds (26.9-38.3) H 10/12/18 00:18
[2018-10-13] MEDS: Calcium-Vit D 250 mg-125 Units Tab UD PO SCH (14:25)
--- NOTE | 2018-10-13 15:28 | PN ---
DATE: 10/13/2018 SUBJECTIVE: She came in with severe nosebleed, elevated INR, coagulopathy was greater than 7, when she came in. She is now in bed with oxygen, she is short of breath, not feeling well, she is on IV fluids. She was given a dose of Aranesp, Cardizem, digoxin, Drisdol, DuoNeb's, iron, Glucophage, Lovenox, Nephro-Miguelito, [place] spray, potassium replacement, midodrine, Protonix, IV fluids, Synthroid and vitamin K. PHYSICAL EXAMINATION VITAL SIGNS: She has a 98.7 temperature, 64 pulse, 83/33 blood pressure and 95% on O2 sat on 2 liters. HEENT: Head is atraumatic, normocephalic. . HEART: Regular rate. LUNGS: Decreased breath sounds. ABDOMEN: Soft, obese, and nontender. EXTREMITIES: +4/4 pitting edema. LABORATORY DATA: She has a 8.3 white count, hemoglobin went from 9.8 down to 7.2 from the nosebleed, 22.8 hematocrit with 269 platelets. INR was 7.4 now it is down to 2.1. Lactate went up from 2.4 to 3.4, I will get Dr. Fernandez's thought on this. A 135 sodium and potassium 2.9, she was given 40 mEq potassium p.o. BUN little better 41, creatinine is little better 2.8. She still has some renal insufficiency. GRF is 17. A 94 sugar, 7.7 calcium, AST of 28, ALT of 22 and alkaline phosphatase is 228. TSH is 4.1. I will replace some calcium. PLAN: She is quite sick today. She has consults with Renal and Ears, Nose and Throat and Infectious Disease. She will get transfused and I have replacement for many electrolytes. Maria Isabel Bowden who has got a nose pack from a nose bleed. Alan Mann DO MTDD
--- NOTE | 2018-10-13 20:09 | CON ---
DATE: 10/13/2018 LOCATION: The patient seen earlier today in room 561, bed 2. CHIEF COMPLAINT: Nosebleed x2 days. HISTORY OF PRESENT ILLNESS: This is a 73-year-old female with history of atrial fibrillation, history of chronic bilateral lower leg edema, history of diastolic congestive heart failure, chronic obstructive lung disease, on home O2 therapy, chronic respiratory failure, diabetes, anemia, super morbid obesity with a BMI of greater than 103, with right outer thigh infections in the past, chronic edema, atrial fibrillation, who has been on Coumadin at home, and now is admitted with nosebleed x2 days duration. The patient denied any fevers or any chills. REVIEW OF SYSTEMS: A 12-point review of systems performed. No chest pain or shortness of breath. Minimal cough. No abdominal pain, diarrhea, and no headaches. PAST MEDICAL HISTORY: Significant for super morbid obesity with a BMI of 103, with atrial fibrillation, chronic leg edema, congestive heart failure, chronic obstructive lung disease, on home O2 therapy, diabetes, anemia, and chronic lymphedema. PAST SURGICAL HISTORY: Significant for vascular surgery. ALLERGIES: THE PATIENT HAS NO KNOWN ALLERGIES. MEDICATIONS AT HOME: Include Coumadin, Synthroid, and inhalers. PHYSICAL EXAMINATION: GENERAL: The patient is in bed, answering questions. The patient's is present at the bedside early this morning in room 561. VITAL SIGNS: Temperature of 98, pulse of 62, respiratory rate of 18, and blood pressure is 100/40. HEENT: Unremarkable. NECK: Supple. LUNGS: Decreased breath sounds. HEART: Normal S1 and S2. ABDOMEN: Soft and nontender. LABORATORY DATA: Reveals a white count of 8.3 was 11,100, hemoglobin 9. Chemistries reveal a BUN of 41, creatinine of 2.8, and alk phos is 228. Coagulation reveals an INR of 7.40. Digoxin level is 1.9. Dr. Hidalgo's note is reviewed. Chest x-ray is reported to be negative. EKG shows a QTc of 412. ASSESSMENT AND PLAN: This is a 73 year old with super morbid obesity, BMI of greater than 103, atrial fibrillation, chronic leg edema, congestive heart failure, diastolic with ejection fraction of 50%, chronic respiratory failure on home oxygen therapy with end-stage chronic obstructive pulmonary disease and diabetes mellitus, now admitted with epistaxis secondary to high Coumadin with acute kidney injury with creatinine has changed from 1.5 to 3.3, currently no evidence of an active infection, we would hold off on any antibiotics and we will follow closely with you. Santy Fernandez MD [facility] # [id number]
[2018-10-14] MEDS: Albuterol-Ipratrop 3 mg / 0.5 (3 ml) UD IH SCH ×4 (02:40→20:14)
[2018-10-14 07:48] LABS: HEMOGLOBIN 9.4 g/dL (12.0-16.0); MEAN CELL VOLUME 85.5 fl (80.0-105.0); MEAN CORPUSCULAR HEMOGLOBIN 27.3 pg (25.0-35.0); MEAN PLATELET VOLUME 9.9 fl (7.0-11.0); RBC 3.44 10^6/uL (3.5-6.1); RED CELL DISTRIBUTION WIDTH 15.7 % (11.5-14.5)
[2018-10-14 08:04] LABS: ALB/GLOB RATIO 1.1 (1.1-1.8); ALBUMIN 2.7 g/dL (3.0-4.8); CALCIUM 7.8 mg/dL (8.4-10.5)
[2018-10-14 08:13] LABS: INR 2.05; PROTHROMBIN TIME 23.2 SECONDS (9.4-12.5)
[2018-10-14] MEDS: Multivitamin Vitamin B Complex (Nephro-Vite) Tab PO SCH (08:37)
[2018-10-14] MEDS ORDERED: Potassium Chloride 20 mEq ER Tab PO ONE (08:42)
[2018-10-14] MEDS ORDERED: Albumin Human 25% (12.5 gm/50 ml) IV SCH (09:15)
[2018-10-14] MEDS: Pantoprazole 40 mg EC Tab PO SCH (09:31)
[2018-10-14] MEDS: Levothyroxine 25 MCG TAB PO SCH (09:31)
[2018-10-14] MEDS: Calcium-Vit D 250 mg-125 Units Tab UD PO SCH (09:31)
[2018-10-14] MEDS: diltiaZEM 120 mg/24 Hours CD Cap PO SCH (09:32)
[2018-10-14] MEDS: Enoxaparin 30 mg Syringe SC SCH (09:32)
[2018-10-14] MEDS: Digoxin 125 mcg (0.125 mg) Tab PO SCH (09:33)
--- NOTE | 2018-10-14 12:19 | CP.PCM.PN ---
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 Maintain hemodynamics stable. Avoid hypotension. Patient not on ACEI/ARB due to recent CRIS and low BP. on a fib rate control meds. Monitor Input/Output, daily weights and renal function with basic metabolic panel started iron 324 mg TID and MVI daily and weekly Vit D. dose of aransep. PRBC as needed supplement lytes as needed agree with gentle IVF. 100 gram IV alb ordered as BP low side Dose meds/antibiotics for reduced GFR. Avoid fleets enema/magnesium based laxatives. Avoid nephrotoxins/NSAIDs/ iodinated contrast (unless needed emergently) Glycemic control. metformin on hold Further work up/management as per primary team pt stable from renal perspective Thanks for allowing me to participate in care of your patient. Will follow patient with you. Please call if any Qs. had d/w team. 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 pt came with nose bleed and supra-therapeutic INR Denies OTC/herbal meds or NSAIDs No recent iodinated contrast exposure. Noted obvious episodes of low BP (83/47s). reports chronic legs swelling. had 2 loose stool yesterday. also cough + ROS: uncomfortable due to nasal packing Cardiovascular: No chest pain. Pulmonary: improved chronic shortness of breath Gastrointestinal: denies abdominal pain No nausea. No vomiting. Genitourinary: No pain while urinating. Denies blood in urine. All other negative except as mentioned in HPI. has chronic legs swelling but better now Physical Examination: General Appearance: Comfortable, in no acute respiratory distress, co-operative. morbidly obese ++ Vitals reviewed and noted as below Head; Atraumatic, normocephalic ENT: no ulcers no thrush. Tongue is midline. Oropharynx: no rash or ulcers. nasal packing + EYES: Pupils are equal, round and reactive to light accommodation. Eye muscles and extraocular movement intact. Sclera is anicteric. Neck; supple no lymphadenopathy, no thyromegaly or bruit Lungs: normal respiratory rate/effort. Breath sounds bilateral equal and clear Heart: Normal rate. s1s2 normal. No rub or gallop. Extremities: no pitting edema. No varicose veins Neurological: Patient is alert, awake and oriented to person, place and time. No focal deficit. Strength bilateral appropriate and equal Skin: Warm and dry. Normal turgor. No rash. Palpitation: Normal elasticity for age Abdomen: Abdomen is soft. Bowel sounds +. There is no abdominal tenderness, no guarding/rigidity no organomegaly Psych: normal insight and normal affect/mood MSK: no joint tenderness or swelling. Digits and nails normal, no deformity : kidney or bladder not palpable Labs/imaging reviewed. Past medical history, past surgical history, family history, social history, allergy reviewed and noted as below Family hx: no hx of CKD. Rest non-contributory Echo; normal lvef, severe MR/TR/SD renal imaging: left kidney cyst TSAT/Ferritin 12/356, SPEP/DILSHAD neg and normal FLC assay Vit D <12.8 PTH 286 urine alb/cr 126 mg/g Objective - Vital Signs/Intake and Output Vital Signs (last 24 hours): Temp Pulse Resp BP Pulse Ox 98.6 F 68 18 88/46 L 99 10/14/18 06:00 10/14/18 09:32 10/14/18 06:00 10/14/18 09:32 10/14/18 06:00 Intake and Output: 10/14/18 10/14/18 06:59 18:59 Intake Total 940 Balance 940 - Medications Medications: Current Medications Albumin Human (Albumin Human 25% (12.5 Gm/50 Ml)) 25 gm IV Q6 [facility] Stop: 10/15/18 06:01 Albuterol/Ipratropium (Duoneb 3 Mg/0.5 Mg (3 Ml) Ud) 3 ml IH [id number] [facility] [place] Last Admin: 10/14/18 09:18 Dose: 3 ml Calcium/Vitamin D (Oscal-D 250 Mg-125 Units Tab) 1 tab PO DAILY [facility] Last Admin: 10/14/18 09:31 Dose: 1 tab Digoxin (Digoxin) 0.125 mg PO QOTHERDAY [facility] Last Admin: 10/14/18 09:33 Dose: 0.125 mg Diltiazem HCl (Cardizem Cd) 120 mg PO DAILY [facility] Last Admin: 10/14/18 09:32 Dose: Not Given Ergocalciferol (Drisdol 50,000 Intl Units Cap) 1 cap PO Q7D [facility] [place] Last Admin: 10/12/18 13:23 Dose: 1 cap Ferrous Gluconate (Fergon) 324 mg PO TID [facility] Last Admin: 10/14/18 09:32 Dose: 324 mg Sodium Chloride (Sodium Chloride 0.45%) 1,000 mls @ 60 mls/hr IV .[id number] [facility] [place] Levothyroxine Sodium (Synthroid) 25 mcg PO DAILY [facility] [place] Last Admin: 10/14/18 09:31 Dose: 25 mcg Metformin HCl (Glucophage) 500 mg PO DAILY [facility] [place] Midodrine (Proamatine) 5 mg PO TID [facility] [place] Last Admin: 10/14/18 09:31 Dose: 5 mg Pantoprazole Sodium (Protonix Ec Tab) 40 mg PO DAILY [facility] Last Admin: 10/14/18 09:31 Dose: 40 mg Sodium Chloride ([place] Nasal [place]) 0 ml NS QID [facility] [place] Last Admin: 10/14/18 09:36 Dose: 2 spray Vitamin B Complex/Vit C/Folic Acid (Nephro-Miguelito) 1 tab PO 0800 [facility] [place] Last Admin: 10/14/18 08:37 Dose: 1 tab Warfarin Sodium (Coumadin) 1 mg PO 1800 [facility]; Protocol Last Admin: 10/13/18 18:01 Dose: 1 mg - Labs Labs: 10/14/18 07:00 10/14/18 07:00 PT 23.2 SECONDS (9.4-12.5) H 10/14/18 07:00 INR 2.05 10/14/18 07:00 APTT 58.7 Seconds (26.9-38.3) H 10/12/18 00:18
[2018-10-14] MEDS: Albumin Human 25% (12.5 gm/50 ml) IV SCH ×2 (13:07→17:17)
[2018-10-14] MEDS: Sodium Chloride 0.45% 1,000 ML IV SCH (14:25)
--- NOTE | 2018-10-14 16:01 | PN ---
DATE: 10/14/2018 SUBJECTIVE: I saw Maria Isabel, resting comfortably in bed. Her is with her today. They have many questions for me today. The nosebleed is still stopped, but it is still packed with packing from Ear, Nose and Throat. She had transfused 2 units of packed red blood because she had 2.7 grams of hemoglobin. She had acute kidney injury and renal insufficiency when she came in. She is starting to feel better. She is eating a little bit better. MEDICATIONS: She is on IV fluids, albumin, Cardizem, Coumadin, digoxin, DuoNeb, Fergon, Glucophage, potassium replacement, Lovenox, Nephro-Miguelito, [place] spray, Os-Kaveh, ProAmatine, Protonix and Synthroid. I am going to stop the Lovenox. She is on Coumadin. The INR is staying above 2, it was as high as 7.6 when she came in the INR's, where she had nosebleed, but she is better and comfortable. She is eating a little bit. PHYSICAL EXAMINATION: VITAL SIGNS: She has 98.6 temp, 68 pulse, blood pressure is still low at 88/46, 18 respiratory rate and 99% O2 sat on room air on 3.5 liter nasal cannula. HEENT: Head is atraumatic and normocephalic. Nose is not bleeding anymore, it is packed. HEART: Regular rate. LUNGS: Decreased breath sounds, but clear. ABDOMEN: Soft and morbidly obese. EXTREMITIES: +4/4 pitting edema in both thighs with excoriations. She is on diltiazem because of her AFib and digoxin, but her blood pressure is quite low at 88. LABORATORY DATA: She has a sodium 134, potassium still low at 2.9 after giving potassium today. BUN 41, creatinine 2.7, slowly coming down, but improving with the kidneys. GFR is at the 17. Calcium is 7.8, total bili is 1, AST is 31, ALT is 18 and alk phos 238. ASSESSMENT AND PLAN: Digoxin level is okay. She is being seen by Renal, Infectious Disease, Ears, Nose and Throat. I will increase her IV fluids to 60 mL an hour to see if we can help that blood pressure little bit and kidney function even more. If her numbers better tomorrow, it is possible I could discharge her home if the packing of the nose is taken out and she stops bleeding. She is here for nosebleed, hypotension, low potassium, anemia, acute kidney injury and coagulopathy. Alan Mann DO MTDVivien
--- NOTE | 2018-10-14 18:20 | PN ---
DATE: 10/14/2018 SUBJECTIVE: The patient is in bed, in no acute distress, nontoxic. PHYSICAL EXAMINATION: VITAL SIGNS: On exam, temperature is 98, blood pressure is 88/40, respiratory rate of 18, heart rate of 68. HEENT: Examination of HEENT is unremarkable. NECK: Supple. LUNGS: Have decreased breath sounds. HEART: Normal S1, S2. ABDOMEN: Soft. LABORATORY DATA: Laboratory examination reveals a white count of 9, hemoglobin of 9 and BUN of 41, creatinine of 2.7. Alk phos is 238. Review of orders reveals the patient is off of antibiotics. ASSESSMENT AND PLAN: A 73-year-old female with super morbid obesity, BMI of greater than 103, in atrial fibrillation, chronic leg edema, congestive heart failure, diastolic ejection fraction of 50%, chronic respiratory failure on home O2 therapy and end-stage chronic obstructive lung disease and diabetes mellitus, admitted with epistaxis secondary to high INR secondary to Coumadin with acute kidney injury and no evidence of an active infection, currently off of antibiotics. Dr. Partida's progress note is reviewed and the patient is at risk for developing nosocomial infections. Case discussed with the patient's who is at bedside. We will follow with you. Santy Fernandez MD
[2018-10-14] MEDS: Albumin Human 25% (25 gm/100 ml) IV SCH ×2 (18:43→23:40)
[2018-10-15] MEDS: Albumin Human 25% (25 gm/100 ml) IV SCH (05:00)
[2018-10-15 06:57] LABS: INR 2.44; PROTHROMBIN TIME 27.6 SECONDS (9.4-12.5)
[2018-10-15 07:01] LABS: HEMOGLOBIN 8.2 g/dL (12.0-16.0); MEAN CELL VOLUME 84.9 fl (80.0-105.0); MEAN CORPUSCULAR HEMOGLOBIN 27.4 pg (25.0-35.0); MEAN CORPUSCULAR HGB CONC 32.3 g/dl (31.0-37.0); MEAN PLATELET VOLUME 9.7 fl (7.0-11.0); RBC 2.99 10^6/uL (3.5-6.1); RED CELL DISTRIBUTION WIDTH 15.7 % (11.5-14.5); WHITE BLOOD COUNT 7.7 10^3/uL (4.5-11.0)
[2018-10-15] MEDS: Albuterol-Ipratrop 3 mg / 0.5 (3 ml) UD IH SCH ×3 (07:28→19:42)
[2018-10-15 07:36] LABS: ALB/GLOB RATIO 1.6 (1.1-1.8); ALBUMIN 3.3 g/dL (3.0-4.8); CALCIUM 7.9 mg/dL (8.4-10.5)
[2018-10-15] MEDS ORDERED: Potassium Chloride 20 mEq ER Tab PO ONE (08:21)
[2018-10-15] MEDS: Multivitamin Vitamin B Complex (Nephro-Vite) Tab PO SCH (08:32)
[2018-10-15] MEDS ORDERED: Albuterol-Ipratrop 3 mg / 0.5 (3 ml) UD IH PRN (09:57)
[2018-10-15] MEDS: Calcium-Vit D 250 mg-125 Units Tab UD PO SCH (11:00)
[2018-10-15] MEDS: Levothyroxine 25 MCG TAB PO SCH (11:01)
[2018-10-15] MEDS: diltiaZEM 120 mg/24 Hours CD Cap PO SCH (11:01)
[2018-10-15] MEDS: Pantoprazole 40 mg EC Tab PO SCH (11:01)
--- NOTE | 2018-10-15 11:55 | PN ---
DATE: 10/15/2018 SUBJECTIVE: I saw her this morning, was not feeling well, had some nauseousness, also having black diarrhea. I am concerned about the black diarrhea, we are checking her for C. diff and also for bleeding. She is on Zofran, Synthroid, Protonix, Primatene, potassium replacement, vitamin D, [place] spray, Nephro-Miguelito, potassium, metformin, Fergon, IV fluids, Cardizem. She is on warfarin 1 mg for her AFib, digoxin, Drisdol, albuterol. She is not that comfortable in bed. PHYSICAL EXAMINATION: VITAL SIGNS: 98.8 temperature; 82 pulse; highest of the blood pressure has been 94/47 ounces, now it is 88/42; respiratory rate is 18; 100% O2 sat on 4.5 liters nasal cannula. HEENT: Head atraumatic, normocephalic. HEART: Regular rate. LUNGS: Decreased breath sounds, poor inspiration. ABDOMEN: Soft, nontender, but it is harder today, decreased bowel sounds, although she does not have an obstruction, ileus or constipation. EXTREMITIES: +4/4 pitting edema. LABORATORY DATA: She has a 7.7 white count. Hemoglobin was 9.8, it dropped to 7.2, gave her 2 units, it went to 9.4, and then 24 hours, it dropped to 8.2, if it drops again tomorrow, then I will transfuse her. Hematocrit 25.4, platelets of 209. I feel that she is bleeding. INR is 2.44, lactate is 3.4. She has 133 sodium, potassium 3.1, I replaced potassium today, BUN 39, creatinine 2.7. GFR 78. Calcium is 7.9, total bili is 0.9, AST is 23, ALT is 17, alk phos 188. ASSESSMENT AND PLAN: She is in a little bit of trouble. Kidneys have improved a little bit. Multiple problems from super morbid obesity, atrial fibrillation, chronic leg edema, congestive heart failure, diastolic ejection of 50, chronic respiratory failure, on home O2; end-stage chronic obstructive lung disease; diabetes. She had a coagulopathy when she came in, acute kidney injury, and now it is possible she is having a gastrointestinal bleed, we are checking the stools for occult blood and for Clostridium difficile, it is the diarrhea. Called in GI, we are trying to do a flat plate of the abdomen if it is possible. Alan Mann DO
[2018-10-15 11:56] LABS: IRON 64 ug/dL (45-180)
[2018-10-15 12:06] LABS: % IRON SATURATION 50 % (20-55); TOTAL IRON BINDING CAPACITY 128 ug/dL (265-497)
--- NOTE | 2018-10-15 12:17 | PN ---
DATE: 10/15/2018 SUBJECTIVE: The patient is in bed in no acute distress, nontoxic. OBJECTIVE: VITAL SIGNS: On exam, temperature is 98, blood pressure is 88/40, respiratory rate of 18. HEENT: Unremarkable. NECK: Supple. LUNGS: Have decreased breath sounds. HEART: Normal S1 and S2. ABDOMEN: Soft, nontender. LABORATORY DATA: Reveals the patient's white count of 7.7, hemoglobin of 8. BUN of 39, creatinine of 2.7. ASSESSMENT AND PLAN: This is a 73-year-old female with super morbid obesity, body mass index of greater than 103, atrial fibrillation, chronic leg edema, congestive heart failure, diastolic ejection fraction of 50%, chronic respiratory failure on home O2 therapy, end-stage chronic obstructive lung disease, diabetes mellitus who on this admission was admitted with epistaxis secondary to high INR secondary to Coumadin with acute kidney injury with no evidence of active infection. Currently, off of antibiotics and the patient's last creatinine from today is 2.7. The patient was admitted with 3.3 last admission, the patient was discharged with a creatinine of 1.5. Santy Fernandez MD
--- NOTE | 2018-10-15 13:08 | RAD ---
Date of service: 10/15/2018 HISTORY: fullness COMPARISON: None available. FINDINGS: BOWEL: Normal. No obstruction. No free air. BONES: Normal. OTHER FINDINGS: None. IMPRESSION: No active disease.
[2018-10-15] MEDS: Sodium Chloride 0.45% 1,000 ML IV SCH (18:10)
--- NOTE | 2018-10-15 21:26 | CP.PCM.PN ---
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 Maintain hemodynamics stable. Avoid hypotension. Patient not on ACEI/ARB due to recent CRIS and low BP. on a fib rate control meds. Monitor Input/Output lytes reviewed bp acceptable Physical Examination: General Appearance: Comfortable, in no acute respiratory distress, co-operative. morbidly obese ++ Vitals reviewed and noted as below Head; Atraumatic, normocephalic ENT: no ulcers no thrush. Tongue is midline. Oropharynx: no rash or ulcers. nasa l packing + EYES: Eye muscles and extraocular movement intact. Sclera is anicteric. Neck; supple no lymphadenopathy, Lungs: normal respiratory rate/effort. Breath sounds bilateral equal and clear Heart: Normal rate. s1s2 normal. No rub or gallop. Extremities: no pitting edema. No varicose veins Neurological: Patient is alert, awake and oriented to person, place and time. No focal deficit. Strength bilateral appropriate and equal Skin: Warm and dry. Normal turgor. No rash. Palpitation: Normal elasticity for age Abdomen: Abdomen is soft. Bowel sounds +. There is no abdominal tenderness, no guarding/rigidity no organomegaly Psych: normal insight and normal affect/mood MSK: no joint tenderness or swelling. Objective - Vital Signs/Intake and Output Vital Signs (last 24 hours): Temp Pulse Resp BP Pulse Ox 98.5 F 66 19 111/90 94 L 10/15/18 21:07 10/15/18 21:07 10/15/18 21:07 10/15/18 21:07 10/15/18 21:07 Intake and Output: 10/15/18 10/16/18 18:59 06:59 Intake Total 240 Balance 240 - Medications Medications: Current Medications Albuterol/Ipratropium (Duoneb 3 Mg/0.5 Mg (3 Ml) Ud) 3 ml IH [id number] [facility] Last Admin: 10/15/18 19:42 Dose: Not Given Albuterol/Ipratropium (Duoneb 3 Mg/0.5 Mg (3 Ml) Ud) 3 ml IH [id number] PRN PRN Reason: Shortness of Breath Calcium/Vitamin D (Oscal-D 250 Mg-125 Units Tab) 1 tab PO DAILY [facility] Last Admin: 10/15/18 11:00 Dose: 1 tab Clotrimazole (Mycelex [place]) 10 mg MT 5XD [facility] Last Admin: 10/15/18 18:07 Dose: 10 mg Digoxin (Digoxin) 0.125 mg PO QOTHERDAY [facility] Last Admin: 10/14/18 09:33 Dose: 0.125 mg Diltiazem HCl (Cardizem Cd) 120 mg PO DAILY [facility] Last Admin: 10/15/18 11:01 Dose: Not Given Ergocalciferol (Drisdol 50,000 Intl Units Cap) 1 cap PO Q7D [facility] Last Admin: 10/12/18 13:23 Dose: 1 cap Ferrous Gluconate (Fergon) 324 mg PO TID [facility] Last Admin: 10/15/18 18:07 Dose: 324 mg Sodium Chloride (Sodium Chloride 0.45%) 1,000 mls @ 60 mls/hr IV .[id number] [facility] Last Admin: 10/15/18 18:10 Dose: 60 mls/hr Levothyroxine Sodium (Synthroid) 25 mcg PO DAILY [facility] Last Admin: 10/15/18 11:01 Dose: 25 mcg Metformin HCl (Glucophage) 500 mg PO DAILY [facility] Midodrine (Proamatine) 5 mg PO TID [facility] Last Admin: 10/15/18 18:07 Dose: 5 mg Ondansetron HCl (Zofran Inj) 4 mg IVP Q4H PRN PRN Reason: Nausea/Vomiting Last Admin: 10/15/18 15:07 Dose: 4 mg Pantoprazole Sodium (Protonix Ec Tab) 40 mg PO DAILY [facility] Last Admin: 10/15/18 11:01 Dose: 40 mg Sodium Chloride ([place] Nasal [place]) 0 ml NS QID [facility] Last Admin: 10/15/18 18:09 Dose: 2 spray Vitamin B Complex/Vit C/Folic Acid (Nephro-Miguelito) 1 tab PO 0800 [facility] Last Admin: 10/15/18 08:32 Dose: 1 tab Warfarin Sodium (Coumadin) 1 mg PO 1800 [facility]; Protocol Last Admin: 10/15/18 18:07 Dose: 1 mg - Labs Labs: 10/15/18 06:20 10/15/18 06:20 PT 27.6 SECONDS (9.4-12.5) H 10/15/18 06:20 INR 2.44 10/15/18 06:20 APTT 58.7 Seconds (26.9-38.3) H 10/12/18 00:18
[2018-10-16] MEDS: Albuterol-Ipratrop 3 mg / 0.5 (3 ml) UD IH SCH ×4 (01:07→19:21)
[2018-10-16 06:42] LABS: HEMOGLOBIN 9.8 g/dL (12.0-16.0); MEAN CELL VOLUME 85.1 fl (80.0-105.0); MEAN CORPUSCULAR HEMOGLOBIN 27.6 pg (25.0-35.0); MEAN CORPUSCULAR HGB CONC 32.5 g/dl (31.0-37.0); MEAN PLATELET VOLUME 9.9 fl (7.0-11.0); RBC 3.55 10^6/uL (3.5-6.1); RED CELL DISTRIBUTION WIDTH 15.7 % (11.5-14.5); WHITE BLOOD COUNT 10.9 10^3/uL (4.5-11.0)
[2018-10-16 06:50] LABS: ALB/GLOB RATIO 1.4 (1.1-1.8); ALBUMIN 3.2 g/dL (3.0-4.8); CALCIUM 8.1 mg/dL (8.4-10.5)
[2018-10-16] MEDS: Multivitamin Vitamin B Complex (Nephro-Vite) Tab PO SCH (08:04)
[2018-10-16] MEDS ORDERED: Potassium Chloride 40 mEq/30 ml LIQ UD PO ONE (09:31)
--- NOTE | 2018-10-16 11:29 | PN ---
DATE: 10/16/2018 SUBJECTIVE: I saw Maria Isabel in bed this morning. She is in distress. She had a nosebleed again, she had the nose packed, it will be taken out tomorrow. She is on Cardizem, Coumadin which we will put on hold, digoxin, Drisdol, DuoNebs, Fergon, Glucophage, Mycelex, Nephro-Miguelito, [place] spray, Os-Kaveh, ProAmatine, Protonix, IV fluids, Synthroid, and Zofran. PHYSICAL EXAMINATION: VITAL SIGNS: She has a 98.5 temperature, 66 pulse, 111/90 blood pressure, 19 respiratory rate, 95% O2 sat on 4.5 liters nasal cannula. HEENT: Head is atraumatic, normocephalic. Nose is packed. Throat is dry. NECK: Supple. HEART: Regular rate. LUNGS: Decreased breath sounds but clear. ABDOMEN: Soft, morbidly obese. EXTREMITIES: +4/4 pitting edema, bilateral thigh ulcers. She is now on a big girl bed which is much easier for her move around and to be treated. LABORATORY DATA: She has a 10.9 white count; 9.8 hemoglobin, the hemoglobin is still holding; 30.2 hematocrit with 213 platelets. 2.44 INR. I will not give her Coumadin today. 134 sodium, potassium 3.3, I replaced potassium. BUN 40, creatinine 2.6, slowly improving. GFR is 18, sugar is 82, calcium is 8.1, total bili is 1.3, AST is 24, ALT is 17, alk phos 193. Stool is negative, C. diff was negative, occult blood was negative. ASSESSMENT AND PLAN: She is being seen by multiple doctors. She had a nosebleed again last night. She has atrial fibrillation, chronic leg edema, congestive heart failure, chronic obstructive pulmonary disease, and we will hold the Coumadin today. Check her labs tomorrow. Continue with aggressive treatment and care. Alan Mann DO
--- NOTE | 2018-10-16 12:00 | CP.PCM.PN ---
Subjective - Date & Time of Evaluation Date of Evaluation: 10/16/18 Time of Evaluation: 23:00 - Subjective Subjective: Pt was evaluated regarding recurrent epistaxis left sided. pt was packed yesterday with cessation of epistaxis Objective - Vital Signs/Intake and Output Vital Signs (last 24 hours): Temp Pulse Resp BP Pulse Ox 98.8 F 93 H 18 86/60 L 100 10/16/18 06:00 10/16/18 06:00 10/16/18 06:00 10/16/18 06:00 10/16/18 06:00 Intake and Output: 10/16/18 10/16/18 06:59 18:59 Intake Total 120 Balance 120 - Medications Medications: Current Medications Albuterol/Ipratropium (Duoneb 3 Mg/0.5 Mg (3 Ml) Ud) 3 ml IH [id number] [facility] Last Admin: 10/16/18 08:40 Dose: 3 ml Albuterol/Ipratropium (Duoneb 3 Mg/0.5 Mg (3 Ml) Ud) 3 ml IH [id number] PRN PRN Reason: Shortness of Breath Calcium/Vitamin D (Oscal-D 250 Mg-125 Units Tab) 1 tab PO DAILY [facility] Last Admin: 10/15/18 11:00 Dose: 1 tab Clotrimazole (Mycelex [place]) 10 mg MT 5XD [facility] Last Admin: 10/15/18 21:53 Dose: 10 mg Digoxin (Digoxin) 0.125 mg PO QOTHERDAY [facility] Last Admin: 10/14/18 09:33 Dose: 0.125 mg Diltiazem HCl (Cardizem Cd) 120 mg PO DAILY [facility] Last Admin: 10/15/18 11:01 Dose: Not Given Ergocalciferol (Drisdol 50,000 Intl Units Cap) 1 cap PO Q7D [facility] Last Admin: 10/12/18 13:23 Dose: 1 cap Ferrous Gluconate (Fergon) 324 mg PO TID [facility] Last Admin: 10/15/18 18:07 Dose: 324 mg Sodium Chloride (Sodium Chloride 0.45%) 1,000 mls @ 60 mls/hr IV .[id number] [facility] Last Admin: 10/15/18 18:10 Dose: 60 mls/hr Levothyroxine Sodium (Synthroid) 25 mcg PO DAILY [facility] Last Admin: 10/15/18 11:01 Dose: 25 mcg Metformin HCl (Glucophage) 500 mg PO DAILY [facility] Midodrine (Proamatine) 5 mg PO TID [facility] Last Admin: 10/15/18 18:07 Dose: 5 mg Ondansetron HCl (Zofran Inj) 4 mg IVP Q4H PRN PRN Reason: Nausea/Vomiting Last Admin: 10/15/18 15:07 Dose: 4 mg Pantoprazole Sodium (Protonix Ec Tab) 40 mg PO DAILY [facility] Last Admin: 10/15/18 11:01 Dose: 40 mg Sodium Chloride ([place] Nasal [place]) 0 ml NS QID [facility] Last Admin: 10/16/18 04:32 Dose: Not Given Vitamin B Complex/Vit C/Folic Acid (Nephro-Miguelito) 1 tab PO 0800 [facility] Last Admin: 10/16/18 08:04 Dose: 1 tab - Labs Labs: 10/16/18 06:30 10/16/18 06:30 PT 27.6 SECONDS (9.4-12.5) H 10/15/18 06:20 INR 2.44 10/15/18 06:20 APTT 58.7 Seconds (26.9-38.3) H 10/12/18 00:18 - Constitutional Appears: Well, Non-toxic - Head Exam Head Exam: ATRAUMATIC - ENT Exam ENT Exam: Normal External Ear Exam, Normal Oropharynx Assessment and Plan - Assessment and Plan (Free Text) Assessment: Left epistaxis improved Plan: Continue saline sprays reevaluate prn Additional Comments - Additional Comments Additional Comments: left nasal packing removed no further epistaxis noted
[2018-10-16] MEDS: diltiaZEM 120 mg/24 Hours CD Cap PO SCH (12:04)
[2018-10-16] MEDS: Digoxin 125 mcg (0.125 mg) Tab PO SCH (12:05)
[2018-10-16] MEDS: Calcium-Vit D 250 mg-125 Units Tab UD PO SCH (12:07)
[2018-10-16] MEDS: Levothyroxine 25 MCG TAB PO SCH (12:09)
[2018-10-16] MEDS: Pantoprazole 40 mg EC Tab PO SCH (12:09)
[2018-10-16] MEDS: Sodium Chloride 0.45% 1,000 ML IV SCH (12:10)
[2018-10-16 12:13] VITALS: PULSE 93
--- NOTE | 2018-10-16 12:19 | CP.PCM.PN ---
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 Maintain hemodynamics stable. Avoid hypotension. Patient not on ACEI/ARB due to recent CRIS and low BP. on a fib rate control meds. Monitor Input/Output, daily weights and renal function with basic metabolic panel started iron 324 mg TID and MVI daily and weekly Vit D. dose of aransep. PRBC as needed supplement lytes as needed s/p 100 gram IV alb o Dose meds/antibiotics for reduced GFR. Avoid fleets enema/magnesium based laxatives. Avoid nephrotoxins/NSAIDs/ iodinated contrast (unless needed emergently) Glycemic control. metformin on hold Further work up/management as per primary team pt stable from renal perspective Thanks for allowing me to participate in care of your patient. Will follow patient with you. Please call if any Qs. had d/w team. 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 pt came with nose bleed and supra-therapeutic INR Denies OTC/herbal meds or NSAIDs No recent iodinated contrast exposure. Noted obvious episodes of low BP (83/47s). reports chronic legs swelling. had 2 loose stool yesterday. also cough + ROS: Cardiovascular: No chest pain. Pulmonary: no chronic shortness of breath Gastrointestinal: denies abdominal pain No nausea. No vomiting. Genitourinary: No pain while urinating. Denies blood in urine. All other negative except as mentioned in HPI. has chronic legs swelling but better now Physical Examination: General Appearance: Comfortable, in no acute respiratory distress, co-operative. morbidly obese ++ Vitals reviewed and noted as below Head; Atraumatic, normocephalic ENT: no ulcers no thrush. Tongue is midline. Oropharynx: no rash or ulcers. EYES: Pupils are equal, round and reactive to light accommodation. Eye muscles and extraocular movement intact. Sclera is anicteric. Neck; supple no lymphadenopathy, no thyromegaly or bruit Lungs: normal respiratory rate/effort. Breath sounds bilateral equal and clear Heart: Normal rate. s1s2 normal. No rub or gallop. Extremities: non pitting edema. No varicose veins Neurological: Patient is alert, awake and oriented to person, place and time. No focal deficit. Strength bilateral appropriate and equal Skin: Warm and dry. Normal turgor. No rash. Palpitation: Normal elasticity for age Abdomen: Abdomen is soft. Bowel sounds +. There is no abdominal tenderness, no guarding/rigidity no organomegaly Psych: normal insight and normal affect/mood MSK: no joint tenderness or swelling. Digits and nails normal, no deformity : kidney or bladder not palpable Labs/imaging reviewed. Past medical history, past surgical history, family history, social history, allergy reviewed and noted as below Family hx: no hx of CKD. Rest non-contributory Echo; normal lvef, severe MR/TR/WV renal imaging: left kidney cyst TSAT/Ferritin 12/356, SPEP/DILSHAD neg and normal FLC assay Vit D <12.8 PTH 286 urine alb/cr 126 mg/g Objective - Vital Signs/Intake and Output Vital Signs (last 24 hours): Temp Pulse Resp BP Pulse Ox 98.8 F 93 H 18 86/60 L 100 10/16/18 06:00 10/16/18 12:04 10/16/18 06:00 10/16/18 12:04 10/16/18 06:00 Intake and Output: 10/16/18 10/16/18 06:59 18:59 Intake Total 120 Balance 120 - Medications Medications: Current Medications Albuterol/Ipratropium (Duoneb 3 Mg/0.5 Mg (3 Ml) Ud) 3 ml IH [id number] [facility]ON[facility] Last Admin: 10/16/18 08:40 Dose: 3 ml Albuterol/Ipratropium (Duoneb 3 Mg/0.5 Mg (3 Ml) Ud) 3 ml IH [id number] PRN PRN Reason: Shortness of Breath Calcium/Vitamin D (Oscal-D 250 Mg-125 Units Tab) 1 tab PO DAILY [facility] Last Admin: 10/16/18 12:07 Dose: 1 tab Clotrimazole (Mycelex Boyd) 10 mg MT 5XD [facility] Last Admin: 10/16/18 12:06 Dose: 10 mg Digoxin (Digoxin) 0.125 mg PO QOTHERDAY [facility] Last Admin: 10/16/18 12:05 Dose: 0.125 mg Diltiazem HCl (Cardizem Cd) 120 mg PO DAILY [facility] Last Admin: 10/16/18 12:04 Dose: Not Given Ergocalciferol (Drisdol 50,000 Intl Units Cap) 1 cap PO Q7D [facility] Last Admin: 10/12/18 13:23 Dose: 1 cap Ferrous Gluconate (Fergon) 324 mg PO TID [facility] Last Admin: 10/16/18 12:06 Dose: 324 mg Sodium Chloride (Sodium Chloride 0.45%) 1,000 mls @ 60 mls/hr IV .[id number] [facility] Last Admin: 10/16/18 12:10 Dose: 60 mls/hr Levothyroxine Sodium (Synthroid) 25 mcg PO DAILY [facility] Last Admin: 10/16/18 12:09 Dose: 25 mcg Metformin HCl (Glucophage) 500 mg PO DAILY [facility] Midodrine (Proamatine) 5 mg PO TID [facility] Last Admin: 10/16/18 12:09 Dose: 5 mg Ondansetron HCl (Zofran Inj) 4 mg IVP Q4H PRN PRN Reason: Nausea/Vomiting Last Admin: 10/15/18 15:07 Dose: 4 mg Pantoprazole Sodium (Protonix Ec Tab) 40 mg PO DAILY [facility] Last Admin: 10/16/18 12:09 Dose: 40 mg Sodium Chloride ([place] Nasal [place]) 0 ml NS QID [facility] Last Admin: 10/16/18 12:07 Dose: 2 spray Vitamin B Complex/Vit C/Folic Acid (Nephro-Miguelito) 1 tab PO 0800 [facility] Last Admin: 10/16/18 08:04 Dose: 1 tab - Labs Labs: 10/16/18 06:30 10/16/18 06:30 PT 27.6 SECONDS (9.4-12.5) H 10/15/18 06:20 INR 2.44 10/15/18 06:20 APTT 58.7 Seconds (26.9-38.3) H 10/12/18 00:18
[2018-10-16] MEDS ORDERED: Potassium Chloride 20 mEq ER Tab PO ONE ×2 (12:20→16:00)
--- NOTE | 2018-10-16 13:31 | CP.PCM.CON ---
History of Present Illness - History of Present Illness History of Present Illness: GI fellow, consult note, PGY 4 Patient is a pleasant 73F with extensive medical history presenting with elevated INR and epistaxis. GI was consulted for possible GI bleed. Patient has recurrent nosebleeds and is taking Coumadin regularly for atrial fibrillation. Patient has not been eating well lately which may have contributed to elevated INR. She was given 2 units of FFP and 2 units of RBCs. Her hemoglobin has been stable. She denies melena, hematemesis, previous GI bleeding. She denies taking significant NSAIDs. She has chronic kidney disease and is taking iron supplements. Her last EGD and colonoscopy was over 5 years ago. A stool occult was performed yesterday which showed negative for blood. She has been losing weight (~200lbs) over the last year and a workup for elevated CA-19-[address] chest abdomen and pelvis was negative for any obvious lesion. She was not given contrast because of her kidneys. She admits dysguizia, abdominal discomfort with food. She was recommended to have EGD as an outpatient and has not up to this point. Family History- denies stomach cancer, colon cancer Social History- denies tobacco, alcohol, or illicit drug use Surgical History- upper abdominal mass removal, Breast surgery, right leg surgery 12pt ROS completed and negative except for above. Past Patient History - Infectious Disease Hx of Infectious Diseases: None - Tetanus Immunizations Tetanus Immunization: Unknown - Past Social History Smoking Status: Never Smoked - CARDIAC Hx Cardiac Disorders: Yes (palpitations, afib) Hx Congestive Heart Failure: Yes - PULMONARY Hx Chronic Obstructive Pulmonary Disease (COPD): Yes (asthma, pneumonia) - NEUROLOGICAL Hx Neurological Disorder: No - HEENT Hx HEENT Problems: Yes (glasses) Other/Comment: thrush to oral cavity and tongue - RENAL Hx Chronic Kidney Disease: No - ENDOCRINE/METABOLIC Hx Diabetes Mellitus Type 2: Yes - HEMATOLOGICAL/ONCOLOGICAL Hx Blood Disorders: Yes (septicemia) Hx Anemia: Yes - INTEGUMENTARY Hx Dermatological Problems: Yes (chronic venous stasis dermatitis ble) Other/Comment: pt is obese, right outer thigh skin openings healed, redness, hard brown dry skin, dimpling to left thigh, pt c/o that she, sometimes has drainage from left thigh. both lower legs and feet dry skin. redness and discoloration to right abd fold healed, ble +4 pitting edema & brown discolored dry skin, dry skin and toenails both feet, multiple healing unmeasurable wounds to b/l buttocks, irregular wound left buttock red, multiple wounds in various stages of healing to entire abd, multiple areas of red foul smelling and draining light green purulent drainage wounds to upper and lower abd, discolored brown skin to abd, healing wounds to b/l thighs - MUSCULOSKELETAL/RHEUMATOLOGICAL Hx Falls: No - GASTROINTESTINAL Hx Gastrointestinal Disorders: Yes (benign mass removed from abd 30 yrs ago) Other/Comment: morbid obesity, blood in stool - GENITOURINARY/GYNECOLOGICAL Hx Genitourinary Disorders: Yes Hx Hematuria: Yes Hx Incontinence: Yes (urine and stool) Hx Urinary Tract Infection: Yes - PSYCHIATRIC Hx Psychophysiologic Disorder: No Hx Substance Use: No - SURGICAL HISTORY Hx Cardiac Catheterization: Yes Hx Mastectomy: No Other/Comment: benign mass removed from abd over 30 yrs ago - ANESTHESIA Hx Anesthesia: Yes Meds Allergies/Adverse Reactions: Allergies Allergy/AdvReac Type Severity Reaction Status Date / Time No Known Allergies Allergy Verified 07/10/18 04:46 - Medications Medications: Current Medications Albuterol/Ipratropium (Duoneb 3 Mg/0.5 Mg (3 Ml) Ud) 3 ml IH [id number] [facility] Last Admin: 10/16/18 08:40 Dose: 3 ml Albuterol/Ipratropium (Duoneb 3 Mg/0.5 Mg (3 Ml) Ud) 3 ml IH [id number] PRN PRN Reason: Shortness of Breath Calcium/Vitamin D (Oscal-D 250 Mg-125 Units Tab) 1 tab PO DAILY [facility] Last Admin: 10/16/18 12:07 Dose: 1 tab Clotrimazole (Mycelex Boyd) 10 mg MT 5XD [facility] Last Admin: 10/16/18 12:06 Dose: 10 mg Digoxin (Digoxin) 0.125 mg PO QOTHERDAY [facility] Last Admin: 10/16/18 12:05 Dose: 0.125 mg Diltiazem HCl (Cardizem Cd) 120 mg PO DAILY [facility] Last Admin: 10/16/18 12:04 Dose: Not Given Ergocalciferol (Drisdol 50,000 Intl Units Cap) 1 cap PO Q7D [facility] Last Admin: 10/12/18 13:23 Dose: 1 cap Ferrous Gluconate (Fergon) 324 mg PO TID [facility] Last Admin: 10/16/18 12:06 Dose: 324 mg Sodium Chloride (Sodium Chloride 0.45%) 1,000 mls @ 60 mls/hr IV .[id number] [facility] Last Admin: 10/16/18 12:10 Dose: 60 mls/hr Levothyroxine Sodium (Synthroid) 25 mcg PO DAILY [facility] Last Admin: 10/16/18 12:09 Dose: 25 mcg Metformin HCl (Glucophage) 500 mg PO DAILY [facility] Midodrine (Proamatine) 5 mg PO TID [facility] Last Admin: 10/16/18 12:09 Dose: 5 mg Ondansetron HCl (Zofran Inj) 4 mg IVP Q4H PRN PRN Reason: Nausea/Vomiting Last Admin: 10/15/18 15:07 Dose: 4 mg Pantoprazole Sodium (Protonix Ec Tab) 40 mg PO DAILY [facility] Last Admin: 10/16/18 12:09 Dose: 40 mg Sodium Chloride ([place] Nasal [place]) 0 ml NS QID [facility] Last Admin: 10/16/18 12:07 Dose: 2 spray Vitamin B Complex/Vit C/Folic Acid (Nephro-Miguelito) 1 tab PO 0800 [facility] Last Admin: 10/16/18 08:04 Dose: 1 tab Physical Exam - Constitutional Appears: Non-toxic, No Acute Distress - Head Exam Head Exam: ATRAUMATIC, NORMAL INSPECTION - Eye Exam Eye Exam: EOMI, Normal appearance - ENT Exam ENT Exam: Mucous Membranes Moist. absent: Normal Exam - Respiratory Exam Respiratory Exam: Clear to Auscultation Bilateral, NORMAL BREATHING PATTERN - Cardiovascular Exam Cardiovascular Exam: REGULAR RHYTHM, +S1, +S2 - GI/Abdominal Exam GI & Abdominal Exam: Normal Bowel Sounds, Soft. absent: Tenderness - Neurological Exam Neurological exam: Alert, CN II-XII Intact, Oriented x3 - Psychiatric Exam Psychiatric exam: Normal Affect, Normal Mood - Skin Skin Exam: Normal Color, Warm Results - Vital Signs Recent Vital Signs: Last Vital Signs Temp 98.8 F 10/16/18 06:00 Pulse 93 H 10/16/18 12:04 Resp 18 10/16/18 06:00 BP 86/60 L 10/16/18 12:04 Pulse Ox 100 10/16/18 06:00 - Labs Result Diagrams: 10/16/18 06:30 10/16/18 06:30 Labs: Laboratory Results - last 24 hr 10/12/18 10/15/18 10/15/18 13:00 11:30 12:20 WBC RBC Hgb Hct MCV MCH MCHC RDW Plt Count MPV Sodium Potassium Chloride Carbon Dioxide Anion Gap BUN Creatinine Est GFR ( Amer) Est GFR (Non-Af Amer) POC Glucose (mg/dL) Random Glucose Calcium Ferritin 666.0 Total Bilirubin AST ALT Alkaline Phosphatase Total Protein Albumin Globulin Albumin/Globulin Ratio CA 19-9 Antigen 141 H D PTH Intact Whole Molec 341 H 10/15/18 10/15/18 10/16/18 16:01 21:38 06:30 WBC 10.9 D RBC 3.55 Hgb 9.8 L Hct 30.2 L MCV 85.1 MCH 27.6 MCHC 32.5 RDW 15.7 H Plt Count 213 MPV 9.9 Sodium Potassium Chloride Carbon Dioxide Anion Gap BUN Creatinine Est GFR ( Amer) Est GFR (Non-Af Amer) POC Glucose (mg/dL) 83 72 Random Glucose Calcium Ferritin Total Bilirubin AST ALT Alkaline Phosphatase Total Protein Albumin Globulin Albumin/Globulin Ratio CA 19-9 Antigen PTH Intact Whole Molec 10/16/18 10/16/18 10/16/18 06:30 06:34 11:08 WBC RBC Hgb Hct MCV MCH MCHC RDW Plt Count MPV Sodium 134 Potassium 3.3 L Chloride 96 L Carbon Dioxide 28 Anion Gap 13 BUN 40 H Creatinine 2.6 H Est GFR ( Amer) 22 Est GFR (Non-Af Amer) 18 POC Glucose (mg/dL) 82 93 Random Glucose 79 Calcium 8.1 L Ferritin Total Bilirubin 1.3 AST 24 ALT 17 Alkaline Phosphatase 193 H Total Protein 5.6 L Albumin 3.2 Globulin 2.3 Albumin/Globulin Ratio 1.4 CA 19-9 Antigen PTH Intact Whole Molec Assessment & Plan - Assessment and Plan (Free Text) Assessment: #Epistaxis #Weight loss #Lymphedema #Afib on OAC #CKD PLAN: -No signs of GI bleed at this time -Recommend endoscopy as an outpatient -Previous CT shows atrophic pancreas w/o obvious lesions however she was unable to have contrast due to CKD. -CA 19-9 is elevated, however, this is a nonspecific test. - Date & Time Date: 10/16/18 Time: 13:37
--- NOTE | 2018-10-16 16:23 | PN ---
DATE: 10/16/2018 LOCATION: The patient was seen earlier this morning in room 561. SUBJECTIVE: The patient is in bed, no acute distress. Chronically ill. The patient was seen earlier this morning. The patient's at the bedside. PHYSICAL EXAMINATION: VITAL SIGNS: Temperature is 98, blood pressure 90/60, and respiratory rate 18. HEENT: Unremarkable. NECK: Supple. LUNGS: Decreased breath sounds. HEART: Normal S1 and S2. ABDOMEN: Soft. LABORATORY DATA: Noted. Microbiology is reviewed. The patient's Stool for C. diff, negative toxin, negative antigen. REVIEW OF ORDERS: Noted. The patient is off of antibiotics. ASSESSMENT AND PLAN: A 73-year-old female with super morbid obesity, with body mass index greater than 103, atrial fibrillation, chronic leg edema, congestive heart failure, diastolic ejection fraction of 50%, chronic respiratory failure on home O2 therapy, end-stage chronic obstructive lung disease, and diabetes. Currently off of antibiotics. Afebrile. We will follow closely with you. Santy Fernandez MD
[2018-10-17] MEDS: Albuterol-Ipratrop 3 mg / 0.5 (3 ml) UD IH SCH ×2 (01:04→07:20)
[2018-10-17] MEDS: Sodium Chloride 0.45% 1,000 ML IV SCH ×2 (03:35→05:00)
--- NOTE | 2018-10-17 06:31 | CP.PCM.PN ---
Subjective - Date & Time of Evaluation Date of Evaluation: 10/17/18 Time of Evaluation: 06:27 - Subjective Subjective: Patient seen and examined, resting in bed comfortably. No acute events overnight, patient's at bedside. She reports nausea with overall fatigue and loss of appetite but denies abdominal pain, vomiting, fever/chills. No further episodes of epistaxis, no reported melena or hematochezia. 12 point review of systems performed, negative aside from mentioned above. Objective - Vital Signs/Intake and Output Vital Signs (last 24 hours): Temp Pulse Resp BP Pulse Ox 98.5 F 71 20 95/41 L 99 10/16/18 21:30 10/16/18 21:30 10/16/18 21:30 10/16/18 21:30 10/16/18 21:30 Intake and Output: 10/16/18 10/17/18 18:59 06:59 Intake Total 360 700 Output Total 225 100 Balance 135 600 - Medications Medications: Current Medications Albuterol/Ipratropium (Duoneb 3 Mg/0.5 Mg (3 Ml) Ud) 3 ml IH [id number] [facility] Last Admin: 10/17/18 01:04 Dose: Not Given Albuterol/Ipratropium (Duoneb 3 Mg/0.5 Mg (3 Ml) Ud) 3 ml IH [id number] PRN PRN Reason: Shortness of Breath Calcium/Vitamin D (Oscal-D 250 Mg-125 Units Tab) 1 tab PO DAILY [facility] Last Admin: 10/16/18 12:07 Dose: 1 tab Clotrimazole (Mycelex Boyd) 10 mg MT 5XD [facility] Last Admin: 10/16/18 22:25 Dose: Not Given Digoxin (Digoxin) 0.125 mg PO QOTHERDAY [facility] Last Admin: 10/16/18 12:05 Dose: 0.125 mg Diltiazem HCl (Cardizem Cd) 120 mg PO DAILY [facility] Last Admin: 10/16/18 12:04 Dose: Not Given Ergocalciferol (Drisdol 50,000 Intl Units Cap) 1 cap PO Q7D [facility] Last Admin: 10/12/18 13:23 Dose: 1 cap Ferrous Gluconate (Fergon) 324 mg PO TID [facility] Last Admin: 10/16/18 18:54 Dose: 324 mg Sodium Chloride (Sodium Chloride 0.45%) 1,000 mls @ 60 mls/hr IV .[id number] [facility] Last Admin: 10/17/18 03:35 Dose: 60 mls/hr Levothyroxine Sodium (Synthroid) 25 mcg PO DAILY [facility] Last Admin: 10/16/18 12:09 Dose: 25 mcg Metformin HCl (Glucophage) 500 mg PO DAILY [facility] Midodrine (Proamatine) 5 mg PO TID [facility] Last Admin: 10/16/18 18:54 Dose: 5 mg Ondansetron HCl (Zofran Inj) 4 mg IVP Q4H PRN PRN Reason: Nausea/Vomiting Last Admin: 10/16/18 17:43 Dose: 4 mg Pantoprazole Sodium (Protonix Ec Tab) 40 mg PO DAILY [facility] Last Admin: 10/16/18 12:09 Dose: 40 mg Sodium Chloride ([place] Nasal [place]) 0 ml NS QID [facility] Last Admin: 10/16/18 22:26 Dose: 2 spray Vitamin B Complex/Vit C/Folic Acid (Nephro-Miguelito) 1 tab PO 0800 [facility] Last Admin: 10/16/18 08:04 Dose: 1 tab - Labs Labs: 10/16/18 06:30 10/16/18 06:30 PT 27.6 SECONDS (9.4-12.5) H 10/15/18 06:20 INR 2.44 10/15/18 06:20 APTT 58.7 Seconds (26.9-38.3) H 10/12/18 00:18 - Constitutional Appears: Non-toxic, No Acute Distress, Chronically Ill - Head Exam Head Exam: NORMAL INSPECTION - Eye Exam Eye Exam: EOMI - ENT Exam ENT Exam: Mucous Membranes Dry Additional comments: dried blood in b/l nares - Respiratory Exam Respiratory Exam: Clear to Ausculation Bilateral - Cardiovascular Exam Cardiovascular Exam: +S1, +S2 - GI/Abdominal Exam GI & Abdominal Exam: Soft, Normal Bowel Sounds Additional comments: obese, non tender to palpation in four quadrants - Extremities Exam Extremities Exam: Pedal Edema - Skin Skin Exam: Dry, Intact, Normal Color, Warm Assessment and Plan - Assessment and Plan (Free Text) Assessment: Morbid obesity Atrial fibrillation on coumadin CKD Epistaxis, anemia Lymphedema Plan: - H/H stable, stool occult blood negative - Diet as tolerated - Anti-emetic therapy PRN - OOB to chair - Patient would benefit from additional outpatient GI follow up, no further planned intervention at this time will sign off case. Please reconsult as necessary, thank you.
[2018-10-17 07:12] LABS: HEMOGLOBIN 10.1 g/dL (12.0-16.0); MEAN CELL VOLUME 85.8 fl (80.0-105.0); MEAN CORPUSCULAR HEMOGLOBIN 27.7 pg (25.0-35.0); MEAN CORPUSCULAR HGB CONC 32.3 g/dl (31.0-37.0); MEAN PLATELET VOLUME 10.5 fl (7.0-11.0); RBC 3.65 10^6/uL (3.5-6.1); WHITE BLOOD COUNT 11.5 10^3/uL (4.5-11.0)
[2018-10-17 07:31] LABS: ALB/GLOB RATIO 1.3 (1.1-1.8); ALBUMIN 3.1 g/dL (3.0-4.8); CALCIUM 8.3 mg/dL (8.4-10.5)
[2018-10-17] MEDS: Multivitamin Vitamin B Complex (Nephro-Vite) Tab PO SCH (08:14)
[2018-10-17 10:24] VITALS: TEMP 98; O2SAT 98
[2018-10-17 10:31] VITALS: RESP 16
[2018-10-17] MEDS: diltiaZEM 120 mg/24 Hours CD Cap PO SCH (10:39)
[2018-10-17] MEDS: Calcium-Vit D 250 mg-125 Units Tab UD PO SCH (10:40)
[2018-10-17] MEDS: Pantoprazole 40 mg EC Tab PO SCH (10:41)
[2018-10-17] MEDS: Levothyroxine 25 MCG TAB PO SCH (10:41)
[2018-10-17 10:56] VITALS: BP 96/58; PULSE 90
--- NOTE | 2018-10-17 14:20 | PN ---
DATE: 10/17/2018 SUBJECTIVE: The patient is in bed in no acute distress, nontoxic. PHYSICAL EXAMINATION: VITAL SIGNS: Temperature is 98, blood pressure is 94/60, respiratory rate of 16. HEENT: Examination of HEENT is unremarkable. NECK: Supple. LUNGS: Have decreased breath sounds. HEART: Normal S1 and S2. ABDOMEN: Soft and nontender. LABORATORY EXAMINATION: Reveals a white count of 11,000, hemoglobin of 10. Creatinine is 2.6. Review of orders reveals the patient to be off of antibiotics. ASSESSMENT AND PLAN: A 73-year-old female with super morbid obesity, BMI of over 103, atrial fibrillation, chronic edema, congestive heart failure which is diastolic, chronic respiratory failure on home O2 therapy, end-stage chronic obstructive lung disease and diabetes, admitted with epistaxis, currently off of antibiotics, and Dr. progress note is appreciated and consultation is reviewed. The patient seen for epistaxis. The patient is at risk for developing nosocomial infections. Santy Fernandez MD
--- NOTE | 2018-10-17 22:12 | DS ---
HOSPITAL COURSE: She is finally doing better. The nosebleeds have stopped. She is eating a little bit. She does not like all the medications, I am going to discontinue a lot of medications for her. She is still losing weight. She had a lot of issues going on, coagulopathy with an elevated INR; anemia, transfused; renal insufficiency improved; hypertension; morbid obesity. She is going to go home on Cardizem, digoxin, DuoNeb's, stopping the Glucophage, stopping the potassium, stopping the Mycelex, stopping the vitamin, stopping the Os-Kaveh, stopping the potassium, should be on ProAmatine if needed. Continue the Protonix and the Synthroid and the Zofran as needed. PHYSICAL EXAMINATION: VITAL SIGNS: Temperature 98, pulse 92, blood pressure 94/62, respiratory rate 16, and O2 sat 98% on nasal cannula. HEENT: Head is atraumatic and normocephalic. Throat is dry. NECK: Supple. Nose, not bleeding. HEART: Regular rate. LUNGS: Decreased breath sounds, but clear, very good lungs ABDOMEN: Morbidly obese. Soft and nontender. Positive bowel sounds. EXTREMITIES: +4/4 and has bilateral thigh ulcers which are slowly improving. LABORATORY DATA: Sodium 134, potassium 3.8, BUN 39, creatinine 2.6 that is her baseline, GFR is 18, sugar is 84, calcium is 8.3, total bili is 1.1, GTT 359, AST 19, ALT is 17, alk phos 184 and total protein 5.5. White count 7.5, hemoglobin 10.1, hematocrit 31.3 and platelets 211. DISCHARGE INSTRUCTIONS: She is being seen by GI, Infectious Disease, Renal, and ENT, they all said that she could be discharged to home, I will followup in the outpatient. Alan Mann DO [id number]
== END 2018-10-17 12:50 | disposition home or self-care (01) | DRG 151 ==
LOC: ED 22:54 → ERH 10-12 04:47 → 5RNO 10-12 11:12 → OBSVTOIN 10-13 12:15
PROVIDERS: ADMIT Family Medicine; ATTEND Family Medicine
PROC: 30233K1 Transfusion of Nonautologous Frozen Plasma into Peripheral Vein, Percutaneous Approach (ICD-10-PCS; principal; 2018-10-12)
PROC: 2Y41X5Z Packing of Nasal Region using Packing Material (ICD-10-PCS; 2018-10-12)
PROC: 30233N1 Transfusion of Nonautologous Red Blood Cells into Peripheral Vein, Percutaneous Approach (ICD-10-PCS; 2018-10-13)
DX: R04.0 Epistaxis (principal); N17.9 Acute kidney failure, unspecified; Z68.45 Body mass index [BMI] 70 or greater, adult; N25.81 Secondary hyperparathyroidism of renal origin; I50.32 Chronic diastolic (congestive) heart failure; J96.10 Chronic respiratory failure, unspecified whether with hypoxia or hypercapnia; T45.515A Adverse effect of anticoagulants, initial encounter; R79.1 Abnormal coagulation profile; I48.2 Chronic atrial fibrillation; I25.10 Atherosclerotic heart disease of native coronary artery without angina pectoris; N18.3 Chronic kidney disease, stage 3 (moderate); D50.9 Iron deficiency anemia, unspecified; E11.22 Type 2 diabetes mellitus with diabetic chronic kidney disease; E11.51 Type 2 diabetes mellitus with diabetic peripheral angiopathy without gangrene; E66.01 Morbid (severe) obesity due to excess calories; Z79.01 Long term (current) use of anticoagulants; Z99.81 Dependence on supplemental oxygen; E87.6 Hypokalemia; I87.2 Venous insufficiency (chronic) (peripheral); J43.9 Emphysema, unspecified; N28.1 Cyst of kidney, acquired; H65.22 Chronic serous otitis media, left ear; E55.9 Vitamin D deficiency, unspecified; I27.81 Cor pulmonale (chronic); Z79.890 Hormone replacement therapy; Z87.440 Personal history of urinary (tract) infections

== ENCOUNTER 2018-11-22 14:20 | Inpatient (IN) | payer MEDICARE | END 2018-12-05 18:30 | LOC: ICU 11-23 02:55 → ED 14:20 → ERH 18:23 → ICU 23:05 ==

== ENCOUNTER 2018-12-12 23:24 | Inpatient (IN) | payer MEDICARE ==
[2018-12-12 23:37] VITALS: BMI 39.7
--- NOTE | 2018-12-12 23:53 | ED PDOC ---
Arrival/HPI - General Chief Complaint: Weakness/Neurological Deficit Time Seen by Provider: 12/12/18 23:28 Historian: Patient - History of Present Illness Narrative History of Present Illness (Text): 12/12/18 23:53 Maria Isabel Bowden is a 73 year old female, whose past medical history includes COPD, asthma, atrial fibrillation, CHF, diabetes, anemia, and ESRD on hemodialysis, who presents to the ED sent from custodial for hypotension. As per custodial documentation, patient was scheduled for hemodialysis today, however she was unable to get dialyzed as she was hypotensive at 69 systolic. Patient reports she has been feeling weak. notes patient regularly takes Midodrine. Patient denies any chest pain, abdominal pain, nausea, vomiting, or any other complaints. Symptom Onset: Gradual Symptom Course: Unchanged Activities at Onset: Light Context: Home (custodial) Past Medical History - Provider Review Nursing Documentation Reviewed: Yes - Infectious Disease Hx of Infectious Diseases: None - Tetanus Immunization Tetanus Immunization: Unknown - Cardiac Hx Cardiac Disorders: Yes (palpitations, afib) Hx Atrial Fibrillation: Yes Hx Congestive Heart Failure: Yes - Pulmonary Hx Chronic Obstructive Pulmonary Disease (COPD): Yes (asthma, pneumonia) - Neurological Hx Neurological Disorder: No - HEENT Hx HEENT Disorder: Yes (glasses) - Renal Hx Renal Disorder: No - Endocrine/Metabolic Hx Diabetes Mellitus Type 2: Yes - Hematological/Oncological Hx Blood Disorders: Yes (septicemia) Hx Anemia: Yes - Integumentary Hx Dermatological Disorder: Yes (chronic venous stasis dermatitis ble) Other/Comment: pt is obese, right outer thigh skin openings healed, redness, hard brown dry skin, dimpling to left thigh, pt c/o that she, sometimes has drainage from left thigh. both lower legs and feet dry skin. redness and discoloration to right abd fold healed, ble +4 pitting edema & brown discolored dry skin, dry skin and toenails both feet, multiple healing unmeasurable wounds to b/l buttocks, irregular wound left buttock red, multiple wounds in various stages of healing to entire abd, multiple areas of red foul smelling and draining light green purulent drainage wounds to upper and lower abd, discolored brown skin to abd, healing wounds to b/l thighs - Musculoskeletal/Rheumatological Hx Falls: No - Gastrointestinal Hx Gastrointestinal Disorders: Yes (benign mass removed from abd 30 yrs ago) Other/Comment: morbid obesity, blood in stool - Genitourinary/Gynecological Hx Genitourinary Disorders: Yes Hx Hematuria: Yes Hx Incontinence: Yes (urine and stool) Hx Urinary Tract Infection: Yes - Psychiatric Hx Psychophysiologic Disorder: No Hx Substance Use: No - Surgical History Hx Cardiac Catheterization: Yes Hx Mastectomy: No Other/Comment: benign mass removed from abd over 30 yrs ago - Anesthesia Hx Anesthesia: Yes Hx Anesthesia Reactions: No Hx Malignant Hyperthermia: No - Suicidal Assessment Feels Threatened In Home Enviroment: No Family/Social History - Physician Review Nursing Documentation Reviewed: Yes Family/Social History: Unknown Family HX Smoking Status: Never Smoked Hx Alcohol Use: No Hx Substance Use: No Hx Substance Use Treatment: No Allergies/Home Meds Allergies/Adverse Reactions: Allergies No Known Allergies Allergy (Verified 11/22/18 14:50) Home Medications: Home Meds Medication Instructions Recorded Confirmed Warfarin [Coumadin] 3 mg PO DAILY 04/10/18 10/11/18 Albuterol/Ipratropium [Duoneb 3 3 ml IH Q6 04/25/18 10/11/18 mg/0.5 mg (3 ml) UD] Clotrimazole/Betamethasone 180 gm TOP BID 04/25/18 10/11/18 [Lotrisone] Fluticasone Nasal [Flonase] 1 spray MARIAM DAILY 04/25/18 10/11/18 Furosemide [Lasix] 40 mg PO DAILY 04/25/18 10/11/18 Levothyroxine [Synthroid] 25 mcg PO DAILY 04/25/18 10/11/18 MetFORMIN [glucoPHAGE] 500 mg PO DAILY 04/25/18 10/11/18 Silver Sulfadiazine [Silvadene] 1,600 gm TOP BID 04/25/18 10/11/18 Budesonide [Pulmicort Flexhaler] 1 puff IH QID 06/01/18 10/11/18 Mupirocin 2% Cream [Bactroban 30 gm EXT BID 06/01/18 10/11/18 Cream] Pantoprazole Sodium [Protonix] 40 mg PO DAILY 06/01/18 10/11/18 Cyproheptadine [Periactin] 1 tab PO DAILY 07/10/18 10/11/18 Midodrine HCl 10 mg PO TID 07/10/18 10/11/18 Digoxin [Digitek] 125 mcg PO QOTHERDAY 09/09/18 10/11/18 Diltiazem HCl [Cartia Xt] 120 mg PO DAILY 09/09/18 10/11/18 Review of Systems - Physician Review All systems were reviewed & negative as marked: Yes - Review of Systems Constitutional: Normal. absent: Fevers Eyes: Normal ENT: Normal Respiratory: Normal. absent: SOB, Cough Cardiovascular: Other (+hypotension) Gastrointestinal: Normal. absent: Abdominal Pain, Diarrhea, Nausea, Vomiting Genitourinary Female: Normal. absent: Dysuria, Frequency, Hematuria, Urine Output Changes Musculoskeletal: Normal. absent: Back Pain, Neck Pain Skin: Normal. absent: Rash Neurological: Other (+generalized weakness) Endocrine: Normal Hemo/Lymphatic: Normal Psychiatric: Normal Physical Exam Vital Signs Reviewed: Yes Temperature: Afebrile Blood Pressure: Hypotensive Pulse: Regular Respiratory Rate: Normal Appearance: Positive for: Cachectic Pain Distress: None Mental Status: Positive for: Alert and Oriented X 3 - Systems Exam Head: Present: Atraumatic, Normocephalic Pupils: Present: PERRL Extroacular Muscles: Present: EOMI Conjunctiva: Present: Normal Ears: Present: Normal, NORMAL TM, Normal Canal. No: Erythema, TM Bulging, Fluid, TM Perf Mouth: Present: Dry Pharnyx: Present: Normal. No: ERYTHEMA, EXUDATE, TONSILS ENLARGED, Peritonsilar Swelling, Uvular Deviation, Muffled/Hoarse Voice, Strider, Soft Palate/Uvular Edema Nose (External): Present: Atraumatic Nose (Internal): Present: Normal Inspection Neck: Present: Normal Range of Motion. No: Meningeal Signs, MIDLINE TENDERNESS, Paraspinal Tenderness Respiratory/Chest: Present: Clear to Auscultation, Good Air Exchange. No: Respiratory Distress, Accessory Muscle Use Cardiovascular: Present: Normal S1, S2, Irregular Rhythm (Irregular, regular rhythm). No: Murmurs Abdomen: No: Tenderness, Distention, Peritoneal Signs Back: Present: Normal Inspection. No: CVA Tenderness, Midline Tenderness, Paraspinal Tenderness Upper Extremity: Present: Normal Inspection. No: Cyanosis, Edema Lower Extremity: No: Edema (chronic bilateral lower leg lymphedema) Neurological: Present: GCS=15, CN II-XII Intact, Speech Normal Skin: Present: Warm, Dry, Normal Color. No: Rashes Psychiatric: Present: Alert, Oriented x 3, Normal Insight, Normal Concentration Medical Decision Making ED Course and Treatment: 12/12/18 23:53 Impression: 73 year old female sent from custodial for hypotension. Plan: -- EKG -- Chest X-ray -- Labs, cardiac enzymes -- IV fluids -- Midodrine -- Reassess and disposition Prior Visits: Notes and results from previous visits were reviewed. Progress Notes: Reviewed EKG, a fib at 85 bpm. Occasional PVC. Incomplete RBBB. Non-specific ST/T wave changes. 12/13/18 1:00 Chest X-ray reviewed, shows no acute processes. 12/13/18 01:[address] Munoz, disk sharpener, who is aware and agrees to evaluate pt for possible ICU admission. residential recycle driver notified. 12/13/18 02:[address] Munoz, present in Emergency department to evaluate pt. Pt will be admitted to the ICU for hypotension. 12/13/18 02:[address] Mann, PMD, who is aware and agrees with plan. Accepts pt in to his service. Requests Dr. Partida and Dr. Turk on consult. - Critical Care Critical Care Minutes: 45 minutes - EKG Interpretation Interpreted by ED Physician: Yes Type: 12 lead EKG - Scribe Statement The provider has reviewed the documentation as recorded by the Scribe Katherine Jameson Provider Scribe Attestation: All medical record entries made by the Scribe were at my direction and personally dictated by me. I have reviewed the chart and agree that the record accurately reflects my personal performance of the history, physical exam, medical decision making, and the department course for this patient. I have also personally directed, reviewed, and agree with the discharge instructions and disposition. Disposition/Present on Arrival - Present on Arrival Any Indicators Present on Arrival: No History of DVT/PE: No History of Uncontrolled Diabetes: Yes Urinary Catheter: No History of Decub. Ulcer: No (skin tear hips) History Surgical Site Infection Following: None - Disposition Have Diagnosis and Disposition been Completed?: Yes Diagnosis: Hypotension Disposition: HOSPITALIZED Disposition Time: 02:44 Patient Problems: Current Active Problems Problem Status Onset Hypotension Acute Condition: GUARDED Referrals: Alan Mann, DO [Primary Care Provider] - Follow up with primary Forms: [employer] (Yi)
[2018-12-12] MEDS ORDERED: Sodium Chloride 0.9% 250 ML IV STA (23:54)
[2018-12-13 01:03] LABS: HEMOGLOBIN 9.6 g/dL (12.0-16.0); MEAN CELL VOLUME 83.3 fl (80.0-105.0); MEAN CORPUSCULAR HEMOGLOBIN 28.2 pg (25.0-35.0); MEAN CORPUSCULAR HGB CONC 33.8 g/dl (31.0-37.0); MEAN PLATELET VOLUME 11.9 fl (7.0-11.0); RBC 3.41 10^6/uL (3.5-6.1); RED CELL DISTRIBUTION WIDTH 19.6 % (11.5-14.5)
[2018-12-13 01:05] LABS: INR 0.91; PARTIAL THROMBOPLASTIN TIME 27.3 Seconds (26.9-38.3); PROTHROMBIN TIME 10.1 SECONDS (9.4-12.5)
[2018-12-13 01:14] LABS: TROPONIN I 0.04 ng/mL
[2018-12-13] MEDS ORDERED: DOPamine 400mg/250ml D5W 400 MG/250 ML BAG IV PRN (01:35)
[2018-12-13 01:37] LABS: ALB/GLOB RATIO 0.8 (1.1-1.8); ALBUMIN 2.2 g/dL (3.0-4.8); ALT/SGPT 27 U/L (7-56); AST/SGOT 21 U/L (14-36); BLOOD UREA NITROGEN 31 mg/dL (7-21); CALCIUM 7.8 mg/dL (8.4-10.5); GFR NON-AFRICAN AMERICAN 15
--- NOTE | 2018-12-13 03:11 | CP.PCM.CON ---
<SergioJuan Alberto - Last Filed: 12/13/18 06:54> History of Present Illness - History of Present Illness History of Present Illness: Juan Alberto Hill DO PGY-1 ICU Consult Note for Dr. Munoz Reason for consult: hypotension x1 day 73 female with PMHx of A-fib, PNA, chronic leg edema, asthma, COPD, chronic LE venous stasis who presents from detention for complaints of hypotension in low 70s. Patient is a detention resident on HD T/T/Sa received her last dialysis on Monday and was in normal state of health. She receives midodrin 10mg prior to HD. Patient denied any associated symptoms of dizziness, chest pain, palpitations, headache, N/V/D, symptoms. In the ED: BP 70/46 given 250 cc 0f NS bolus, dopamine started PMHx: A-fib, PNA, chronic leg edema, asthma, COPD, chronic LE venous stasis PSHx: unspecified operation to b/l LE above ankle All: NKDA Social: Lives at home with , who cares for patient; denies tobacco, etoh and illicit drug use Fam Hx: no known hx Meds: as per OCT PMD: Dr. Mann Past Patient History - Infectious Disease Hx of Infectious Diseases: None - Tetanus Immunizations Tetanus Immunization: Unknown - Past Social History Smoking Status: Never Smoked - CARDIAC Hx Cardiac Disorders: Yes (palpitations, afib) Hx Atrial Fibrillation: Yes Hx Congestive Heart Failure: Yes - PULMONARY Hx Chronic Obstructive Pulmonary Disease (COPD): Yes (asthma, pneumonia) - NEUROLOGICAL Hx Neurological Disorder: No - HEENT Hx HEENT Problems: Yes (glasses) - RENAL Hx Chronic Kidney Disease: No - ENDOCRINE/METABOLIC Hx Diabetes Mellitus Type 2: Yes - HEMATOLOGICAL/ONCOLOGICAL Hx Blood Disorders: Yes (septicemia) Hx Anemia: Yes - INTEGUMENTARY Hx Dermatological Problems: Yes (chronic venous stasis dermatitis ble) Other/Comment: pt is obese, right outer thigh skin openings healed, redness, hard brown dry skin, dimpling to left thigh, pt c/o that she, sometimes has drainage from left thigh. both lower legs and feet dry skin. redness and discoloration to right abd fold healed, ble +4 pitting edema & brown discolored dry skin, dry skin and toenails both feet, multiple healing unmeasurable wounds to b/l buttocks, irregular wound left buttock red, multiple wounds in various stages of healing to entire abd, multiple areas of red foul smelling and draining light green purulent drainage wounds to upper and lower abd, discolored brown skin to abd, healing wounds to b/l thighs - MUSCULOSKELETAL/RHEUMATOLOGICAL Hx Falls: No - GASTROINTESTINAL Hx Gastrointestinal Disorders: Yes (benign mass removed from abd 30 yrs ago) Other/Comment: morbid obesity, blood in stool - GENITOURINARY/GYNECOLOGICAL Hx Genitourinary Disorders: Yes Hx Hematuria: Yes Hx Incontinence: Yes (urine and stool) Hx Urinary Tract Infection: Yes - PSYCHIATRIC Hx Psychophysiologic Disorder: No Hx Substance Use: No - SURGICAL HISTORY Hx Cardiac Catheterization: Yes Hx Mastectomy: No Other/Comment: benign mass removed from abd over 30 yrs ago - ANESTHESIA Hx Anesthesia: Yes Hx Anesthesia Reactions: No Hx Malignant Hyperthermia: No Meds Allergies/Adverse Reactions: Allergies Allergy/AdvReac Type Severity Reaction Status Date / Time No Known Allergies Allergy Verified 11/22/18 14:50 - Medications Medications: Current Medications Albuterol/Ipratropium (Duoneb 3 Mg/0.5 Mg (3 Ml) Ud) 3 ml IH Q6 [facility]ON[facility] Betamethasone/Clotrimazole (Lotrisone) 0 gm TOP BID [facility]ON[facility] Cyproheptadine HCl (Periactin) 1 mg PO DAILY [facility]ON[facility] Diltiazem HCl (Cardizem Cd) 120 mg PO DAILY [facility] Fluticasone Propionate (Flonase) actuation MARIAM DAILY [facility] Dopamine HCl/Dextrose (Dopamine 400mg/250ml D5w) 400 mg in 250 mls @ 23.558 mls/hr IV .[id number] PRN; Protocol PRN Reason: TITRATE PER MD ORDER Last Admin: 12/13/18 02:06 Dose: 23.558 mls/hr Levothyroxine Sodium (Synthroid) 25 mcg PO 0600 RONI Midodrine (Proamatine) 10 mg PO TID RONI Mupirocin (Bactroban Ointment) 30 gm EXT BID RONI Budesonide [ Pulmicort Flexhaler] 1 Puff (Home Med) 1 puff IH QID [facility]ONI Pantoprazole Sodium (Protonix Ec Tab) 40 mg PO 0600 [facility]ON[facility] Silver Sulfadiazine (Silvadene 1% 25 Gm) 0 gm TP BID RONI Warfarin Sodium (Coumadin) 3 mg PO 1800 RONI; Protocol Physical Exam - Additional Findings Additional findings: Head: Positive for: Atraumatic, Normocephalic Pupils: Positive for: PERRL Extroacular Muscles: Positive for: EOMI Conjunctiva: Positive for: Normal Mouth: Positive for: Moist Mucous Membranes Pharnyx: Positive for: Normal. Negative for: ERYTHEMA, EXUDATE Respiratory/Chest: Positive for: Clear to Auscultation, Good Air Exchange, Other (bandage of permacath, clean dry and intact). Negative for: Respiratory Distress, Accessory Muscle Use, Wheezes, Rales, Rhonchi Cardiovascular: Positive for: Regular Rate and Rhythm, Normal S1, S2. Negative for: Murmurs, Rub, Gallop Abdomen: Negative for: Tenderness, Distention, Peritoneal Signs Upper Extremity: Positive for: Normal Inspection. Negative for: Cyanosis, Edema Lower Extremity: Positive for: Edema (severe b/l LE edema unchanged from prior exams, at baseline), Other (Chronic venous stasis changes on the legs) Neurological: Positive for: GCS=15, CN II-XII Intact, Speech Normal, Motor Func Grossly Intact Skin: Positive for: Warm, Dry Psychiatric: Positive for: Alert, Oriented x 3, Normal Insight, Normal Concentra tion Results - Vital Signs Recent Vital Signs: Last Vital Signs Temp 97.5 F L 12/12/18 23:50 Pulse 94 H 12/13/18 02:26 Resp 18 12/13/18 02:26 BP 103/61 12/13/18 02:26 Pulse Ox 97 12/13/18 02:26 - Labs Result Diagrams: 12/13/18 05:30 12/13/18 05:30 Labs: Laboratory Results - last 24 hr 12/13/18 12/13/18 12/13/18 00:25 00:25 00:25 WBC 7.0 D RBC 3.41 L Hgb 9.6 L Hct 28.4 L MCV 83.3 MCH 28.2 MCHC 33.8 RDW 19.6 H Plt Count 118 L MPV 11.9 H PT 10.1 INR 0.91 APTT 27.3 Sodium 134 Potassium 3.6 Chloride 97 L Carbon Dioxide 30 Anion Gap 11 BUN 31 H Creatinine 3.0 H Est GFR ( Amer) 18 Est GFR (Non-Af Amer) 15 Random Glucose 176 H Calcium 7.8 L Total Bilirubin 2.1 H AST 21 ALT 27 Alkaline Phosphatase 300 H D Lactate Dehydrogenase 299 L Total Creatine Kinase < 20 L Troponin I 0.04 D Total Protein 5.0 L Albumin 2.2 L Globulin 2.8 Albumin/Globulin Ratio 0.8 L Assessment & Plan - Assessment and Plan (Free Text) Assessment: 73 female with PMHx of A-fib, PNA, chronic leg edema, asthma, COPD, chronic LE venous stasis who presents from detention for complaints of hypotension in low 70s Plan: Hypotension: -BP 70/46 given 250 cc 0f NS bolus, dopamine started in ED -afebrile, no leukocytosis, no tachycardia -blood cx -PT/INR wnl -cortisol level in am Afib/ CHF: -troponin negative. continue to trend -continue home warfarin -cardio consulted Dr Turk DM2: -accucheck -ISS-L ESRD on HD: -continue midodrine tid -nephro consulted Dr Partida Anemia: -H/H 8/23.9 (her baseline) -continue monitoring, transfuse prn Hypothyroidism: -continue home thyroxine PPX: DVT: SCD, lovenox GI: protonix CCD PT/OT Case reviewed and plan discussed with Dr Alexander Hill DO PGY1 <Bouchra Munoz - Last Filed: 12/13/18 19:37> Meds - Medications Medications: Current Medications Albumin Human (Albumin Human 25% (12.5 Gm/50 Ml)) 25 gm IV TTS PRN PRN Reason: Other Albuterol/Ipratropium (Duoneb 3 Mg/0.5 Mg (3 Ml) Ud) 3 ml IH Q6 [facility] Last Admin: 12/13/18 13:13 Dose: Not Given Betamethasone/Clotrimazole (Lotrisone) 0 gm TOP BID [facility] Last Admin: 12/13/18 18:50 Dose: Not Given Cyproheptadine HCl (Periactin) 4 mg PO DAILY [facility] Last Admin: 12/13/18 15:01 Dose: Not Given Darbepoetin Siddhartha 100 mcg/ (Darbepoetin Siddhartha 50 mcg) 150 mcg IVP QWK [facility] Fludrocortisone Acetate (Florinef) 0.1 mg PO DAILY [facility] Last Admin: 12/13/18 18:49 Dose: Not Given Fluticasone Propionate (Flonase) 1 actuation NS DAILY [facility] Last Admin: 12/13/18 15:00 Dose: Not Given Hydrocortisone Sodium Succinate (Solu-Cortef) 50 mg IVP Q6 [facility] Last Admin: 12/13/18 18:58 Dose: 50 mg Dopamine HCl/Dextrose (Dopamine 400mg/250ml D5w) 400 mg in 250 mls @ 23.558 mls/hr IV .[id number] PRN; Protocol PRN Reason: TITRATE PER MD ORDER Last Titration: 12/13/18 07:45 Dose: 0 mcg/kg/min, 0 mls/hr NOREPINEPHRINE BIT/0.9 % NACL (Levophed 4 Mg/ 250 Ml Ns Premixed) 4 mg in 250 mls @ 15 mls/hr IV .[id number] PRN; Protocol PRN Reason: TITRATE PER MD ORDER Last Titration: 12/13/18 07:06 Dose: 8 mcg/min, 30 mls/hr Sodium Chloride (Sodium Chloride 0.9%) 1,000 mls @ 125 mls/hr IV .Q8H [facility] Last Admin: 12/13/18 18:52 Dose: Not Given Meropenem/Sodium Chloride (Merrem Iv 500 Mg/Ns 50 Ml) 500 mg in 50 mls @ 100 mls/hr IVPB Q12 [facility]ONI; Protocol Stop: 12/21/18 22:01 Insulin Human Regular (Humulin R Med) 0 units SC ACHS [facility]; Protocol Last Admin: 12/13/18 16:30 Dose: Not Given Levothyroxine Sodium (Synthroid) 25 mcg PO 0600 [facility] Last Admin: 12/13/18 15:02 Dose: Not Given Midodrine (Proamatine) 10 mg PO TID [facility] Last Admin: 12/13/18 18:54 Dose: 10 mg Mupirocin (Bactroban Ointment) 30 gm EXT BID [facility] Last Admin: 12/13/18 18:49 Dose: Not Given Budesonide [ Pulmicort Flexhaler] 1 Puff (Home Med) 1 puff IH QID [facility] Pantoprazole Sodium (Protonix Ec Tab) 40 mg PO 0600 [facility] Last Admin: 12/13/18 15:02 Dose: Not Given Silver Sulfadiazine (Silvadene 1% 25 Gm) 0 gm TP BID [facility] Last Admin: 12/13/18 18:57 Dose: Not Given Warfarin Sodium (Coumadin) 3 mg PO 1800 [facility]ON[facility]; Protocol Last Admin: 12/13/18 18:55 Dose: 3 mg Results - Vital Signs Recent Vital Signs: Last Vital Signs Temp 98.1 F 12/13/18 05:09 Pulse 130 H 12/13/18 18:25 Resp 20 12/13/18 18:25 BP 85/53 L 12/13/18 18:17 Pulse Ox 100 12/13/18 04:40 - Labs Result Diagrams: 12/13/18 05:30 12/13/18 05:30 Labs: Laboratory Results - last 24 hr 12/13/18 12/13/18 12/13/18 00:25 00:25 00:25 WBC 7.0 D RBC 3.41 L Hgb 9.6 L Hct 28.4 L MCV 83.3 MCH 28.2 MCHC 33.8 RDW 19.6 H Plt Count 118 L MPV 11.9 H Neut % (Auto) Lymph % (Auto) [place] % (Auto) Eos % (Auto) Baso % (Auto) Lymph # (Auto) [place] # (Auto) Eos # (Auto) Baso # (Auto) Absolute Neuts (auto) PT 10.1 INR 0.91 APTT 27.3 Sodium 134 Potassium 3.6 Chloride 97 L Carbon Dioxide 30 Anion Gap 11 BUN 31 H Creatinine 3.0 H Est GFR ( Amer) 18 Est GFR (Non-Af Amer) 15 POC Glucose (mg/dL) Random Glucose 176 H Calcium 7.8 L Phosphorus Magnesium Total Bilirubin 2.1 H AST 21 ALT 27 Alkaline Phosphatase 300 H D Lactate Dehydrogenase 299 L Total Creatine Kinase < 20 L Troponin I 0.04 D Total Protein 5.0 L Albumin 2.2 L Globulin 2.8 Albumin/Globulin Ratio 0.8 L Cortisol AM Sample 12/13/18 12/13/18 12/13/18 05:30 05:30 05:30 WBC 7.3 RBC 2.88 L Hgb 8.0 L Hct 23.9 L MCV 83.0 MCH 27.8 MCHC 33.5 RDW 19.6 H Plt Count 119 L MPV 10.9 Neut % (Auto) 81.5 H Lymph % (Auto) 12.6 L [place] % (Auto) 5.9 Eos % (Auto) 0.0 L Baso % (Auto) 0.0 Lymph # (Auto) 0.9 L [place] # (Auto) 0.4 Eos # (Auto) 0.0 Baso # (Auto) 0.00 Absolute Neuts (auto) 5.98 PT INR APTT Sodium 135 Potassium 3.1 L Chloride 100 Carbon Dioxide 25 Anion Gap 13 BUN 30 H Creatinine 3.0 H Est GFR ( Amer) 18 Est GFR (Non-Af Amer) 15 POC Glucose (mg/dL) Random Glucose 188 H Calcium 7.5 L Phosphorus 3.7 Magnesium 1.5 L Total Bilirubin 2.3 H AST 14 D ALT 27 Alkaline Phosphatase 300 H Lactate Dehydrogenase Total Creatine Kinase Troponin I 0.04 Total Protein 5.2 L Albumin 2.2 L Globulin 3.0 Albumin/Globulin Ratio 0.8 L Cortisol AM Sample 30.5 H 12/13/18 12/13/18 12/13/18 08:16 08:21 11:34 WBC RBC Hgb Hct MCV MCH MCHC RDW Plt Count MPV Neut % (Auto) Lymph % (Auto) [place] % (Auto) Eos % (Auto) Baso % (Auto) Lymph # (Auto) [place] # (Auto) Eos # (Auto) Baso # (Auto) Absolute Neuts (auto) PT INR APTT Sodium Potassium Chloride Carbon Dioxide Anion Gap BUN Creatinine Est GFR ( Amer) Est GFR (Non-Af Amer) POC Glucose (mg/dL) 89 230 H 233 H Random Glucose Calcium Phosphorus Magnesium Total Bilirubin AST ALT Alkaline Phosphatase Lactate Dehydrogenase Total Creatine Kinase Troponin I Total Protein Albumin Globulin Albumin/Globulin Ratio Cortisol AM Sample Attending/Attestation - Attestation I have personally seen and examined this patient.: Yes I have fully participated in the care of the patient.: Yes I have reviewed all pertinent clinical information: Yes Notes (Text): 12/13/18 19:37 Seen and examined. discussed with resident. A&P as above.
[2018-12-13] MEDS: Silver Sulfadiazine 1% Cream (25 gm) TP SCH ×2 (03:30→18:57)
[2018-12-13] MEDS: NOREPINEPHRINE BIT/0.9 % NACL 4 MG/250 ML BAG IV PRN ×2 (05:28→22:38)
[2018-12-13 06:07] LABS: LYMPH # 0.9 (1.2-3.4); LYMPH % 12.6 % (22.0-35.0); MEAN CORPUSCULAR HEMOGLOBIN 27.8 pg (25.0-35.0); MEAN CORPUSCULAR HGB CONC 33.5 g/dl (31.0-37.0); MEAN PLATELET VOLUME 10.9 fl (7.0-11.0); MONO # 0.4 (0.1-0.6); MONO % 5.9 % (1.0-6.0); RBC 2.88 10^6/uL (3.5-6.1); RED CELL DISTRIBUTION WIDTH 19.6 % (11.5-14.5); WHITE BLOOD COUNT 7.3 10^3/uL (4.5-11.0)
[2018-12-13 06:33] LABS: TROPONIN I 0.04 ng/mL
[2018-12-13 06:43] LABS: ALB/GLOB RATIO 0.8 (1.1-1.8); ALBUMIN 2.2 g/dL (3.0-4.8); CALCIUM 7.5 mg/dL (8.4-10.5)
[2018-12-13] MEDS ORDERED: Potassium Chloride 40 mEq/30 ml LIQ UD PO STA (06:49)
[2018-12-13] MEDS ORDERED: Magnesium Sulfate 2 gm/50 ml 2 GM/50 ML BAG IVPB ONE (06:59)
[2018-12-13] MEDS: Albuterol-Ipratrop 3 mg / 0.5 (3 ml) UD IH SCH ×3 (07:28→21:50)
[2018-12-13] MEDS ORDERED: Insulin Reg-LOW-Coverage SC SCH (07:30)
--- NOTE | 2018-12-13 09:07 | CARD ---
APPROVED REPORT Date of service: 12/12/2018 EKG Measurement Heart [id number] <Conclusion> Atrial fibrillation with premature ventricular or aberrantly conducted complexes Incomplete right bundle branch block Nonspecific ST and T wave abnormality, probably digitalis effect Abnormal ECG
--- NOTE | 2018-12-13 09:07 | RAD ---
Date of service: 12/13/2018 HISTORY: weak COMPARISON: 11/23/2018 TECHNIQUE: 1 view obtained. FINDINGS: LUNGS: No active pulmonary disease. PLEURA: No significant pleural effusion identified, no pneumothorax apparent. CARDIOVASCULAR: Aortic calcification Normal cardiac size. No pulmonary vascular congestion. OSSEOUS STRUCTURES: No significant abnormalities. VISUALIZED UPPER ABDOMEN: Normal. OTHER FINDINGS: Right-sided dialysis catheter IMPRESSION: No active disease.
[2018-12-13] MEDS ORDERED: Sodium Chloride 0.9% 1,000 ML IV STA (09:48)
[2018-12-13] MEDS ORDERED: BUDESONIDE IH SCH (10:00)
[2018-12-13] MEDS ORDERED: diltiaZEM 120 mg/24 Hours CD Cap PO SCH (10:00)
--- NOTE | 2018-12-13 10:04 | CP.CCUPN ---
<Jethro Qiu - Last Filed: 12/13/18 10:20> CCU Subjective - Physician Review Subjective (Free Text): Jethro Qiu DO, PGY-1 MICU Progress Note for Dr. Ferrer Patient was seen and examined at bedside this AM. She reports continued abdominal cramping but otherwise denies fever/chills, CP, SOB, nausea/vomiting, or urinary complaints. She was noted to be hypotensive in ED but this has improved s/p IVF resuscitation and pressor support. CCU Objective - Vital Signs / Intake & Output Intake and Output (Last 8hrs): Intake & Output 12/12/18 12/13/18 12/13/18 22:59 06:59 14:59 Intake Total 100 Balance 100 Weight 277 lb Intake: IV 100 - Physical Exam Head: Positive for: Atraumatic, Normocephalic Pupils: Positive for: PERRL Extroacular Muscles: Positive for: EOMI Conjunctiva: Positive for: Normal Mouth: Positive for: Dry Pharnyx: Positive for: Normal. Negative for: ERYTHEMA, EXUDATE Nose (External): Positive for: Atraumatic Neck: Positive for: Normal Range of Motion Respiratory/Chest: Positive for: Clear to Auscultation, Good Air Exchange. Negative for: Respiratory Distress, Accessory Muscle Use, Rales, Rhonchi Cardiovascular: Positive for: Normal S1, S2, Irregular Rhythm (Irregularrly irregular rhythm, has been consistent since admission to MICU, now off dobutamine drip). Negative for: Murmurs, Rub, Gallop Abdomen: Negative for: Tenderness, Distention, Peritoneal Signs Upper Extremity: Positive for: Normal Inspection. Negative for: Cyanosis, Edema Lower Extremity: Positive for: Edema (chronic bilateral lower leg lymphedema) Neurological: Positive for: GCS=15, CN II-XII Intact, Speech Normal Skin: Positive for: Warm, Dry, Normal Color. Negative for: Rashes Psychiatric: Positive for: Alert, Oriented x 3, Normal Insight, Normal Concentra tion - Medications Active Medications: Active Medications Generic Name Dose Route Start Last Admin Trade Name Freq PRN Reason Stop Dose Admin Albuterol/Ipratropium 3 ml 12/13/18 06:00 12/13/18 07:28 Duoneb 3 Mg/0.5 Mg (3 Ml) Ud IH 3 ml Q6 [facility]ONI Administration Betamethasone/Clotrimazole 0 gm 12/13/18 10:00 Lotrisone TOP BID RONI Cyproheptadine HCl 4 mg 12/13/18 10:00 Periactin PO DAILY RONI Fluticasone Propionate 1 actuation 12/13/18 10:00 Flonase NS DAILY [facility]ON[facility] Hydrocortisone Sodium Succinate 50 mg 12/13/18 08:00 12/13/18 07:57 Solu-Cortef IVP 50 mg Q6 [facility] Administration Dopamine HCl/Dextrose 400 mg in 250 mls @ 23.558 mls/hr 12/13/18 01:35 12/13/18 04:16 Dopamine 400mg/250ml D5w IV 7.5 mcg/kg/min .[id number] PRN 35.338 mls/hr TITRATE PER MD ORDER Titration Protocol 5 MCG/KG/MIN NOREPINEPHRINE BIT/0.9 % NACL 4 mg in 250 mls @ 15 mls/hr 12/13/18 05:20 12/13/18 07:06 Levophed 4 Mg/ 250 Ml Ns Premixed IV 8 mcg/min .[id number] PRN 30 mls/hr TITRATE PER MD ORDER Titration Protocol 4 MCG/MIN Sodium Chloride 1,000 mls @ 125 mls/hr 12/13/18 09:15 Sodium Chloride 0.9% IV .Q8H RONI Potassium Chloride 10 meq in 100 mls @ 100 mls/hr 12/13/18 09:45 Potassium Chloride 10 Meq/100 Ml IVPB 12/13/18 12:44 Q2H RONI Sodium Chloride 1,000 mls @ 999 mls/hr 12/13/18 09:48 Sodium Chloride 0.9% IV 12/13/18 10:48 .Q1H1M STA Insulin Human Regular 0 units 12/13/18 07:30 Humulin R Low SC ACHS [facility] Protocol Insulin Human Regular 0 units 12/13/18 11:30 Humulin R Med SC [facility] Protocol Levothyroxine Sodium 25 mcg 12/13/18 06:00 Synthroid PO 0600 [facility] Midodrine 10 mg 12/13/18 10:00 12/13/18 09:23 Proamatine PO 10 mg TID [facility] Administration Mupirocin 30 gm 12/13/18 02:45 Bactroban Ointment EXT BID [facility] Budesonide [ 1 puff 12/13/18 10:00 Pulmicort Flexhaler] IH 1 Puff (Home Med) QID [facility] Pantoprazole Sodium 40 mg 12/13/18 06:00 Protonix Ec Tab PO 0600 [facility] Silver Sulfadiazine 0 gm 12/13/18 02:45 12/13/18 03:30 Silvadene 1% 25 Gm TP 25 gm BID [facility] Administration Warfarin Sodium 3 mg 12/13/18 18:00 Coumadin PO 1800 [facility] Protocol - Patient Studies Lab Studies: Lab Studies 12/13/18 12/13/18 12/13/18 Range/Units 08:21 08:16 05:30 WBC (4.5-11.0) 10^3/uL RBC (3.5-6.1) 10^6/uL Hgb (12.0-16.0) g/dL Hct (36.0-48.0) % MCV (80.0-105.0) fl MCH (25.0-35.0) pg MCHC (31.0-37.0) g/dl RDW (11.5-14.5) % Plt Count (120.0-450.0) 10^3/uL MPV (7.0-11.0) fl Neut % (Auto) (50.0-68.0) % Lymph % (Auto) (22.0-35.0) % [place] % (Auto) (1.0-6.0) % Eos % (Auto) (1.5-5.0) % Baso % (Auto) (0.0-3.0) % Lymph # (Auto) (1.2-3.4) [place] # (Auto) (0.1-0.6) Eos # (Auto) (0.0-0.7) Baso # (Auto) (0.0-2.0) K/mm3 Absolute Neuts (auto) (1.4-6.5) PT (9.4-12.5) SECONDS INR APTT (26.9-38.3) Seconds Sodium 135 (132-148) mmol/L Potassium 3.1 L (3.6-5.0) mmol/L Chloride 100 (98-107) mmol/L Carbon Dioxide 25 (21-33) mmol/L Anion Gap 13 (10-20) BUN 30 H (7-21) mg/dL Creatinine 3.0 H (0.7-1.2) mg/dl Est GFR ( Amer) 18 Est GFR (Non-Af Amer) 15 POC Glucose (mg/dL) 230 H 89 (65-110) mg/dL Random Glucose 188 H (70-110) mg/dL Calcium 7.5 L (8.4-10.5) mg/dL Phosphorus 3.7 (2.5-4.5) mg/dL Magnesium 1.5 L (1.7-2.2) mg/dL Total Bilirubin 2.3 H (0.2-1.3) mg/dL AST 14 D (14-36) U/L ALT 27 (7-56) U/L Alkaline Phosphatase 300 H (38-126) U/L Lactate Dehydrogenase (333-699) U/L Total Creatine Kinase (35-230) U/L Troponin I 0.04 ng/mL Total Protein 5.2 L (5.8-8.3) g/dL Albumin 2.2 L (3.0-4.8) g/dL Globulin 3.0 gm/dL Albumin/Globulin Ratio 0.8 L (1.1-1.8) 12/13/18 12/13/18 12/13/18 Range/Units 05:30 00:25 00:25 WBC 7.3 7.0 D (4.5-11.0) 10^3/uL RBC 2.88 L 3.41 L (3.5-6.1) 10^6/uL Hgb 8.0 L 9.6 L (12.0-16.0) g/dL Hct 23.9 L 28.4 L (36.0-48.0) % MCV 83.0 83.3 (80.0-105.0) fl MCH 27.8 28.2 (25.0-35.0) pg MCHC 33.5 33.8 (31.0-37.0) g/dl RDW 19.6 H 19.6 H (11.5-14.5) % Plt Count 119 L 118 L (120.0-450.0) 10^3/uL MPV 10.9 11.9 H (7.0-11.0) fl Neut % (Auto) 81.5 H (50.0-68.0) % Lymph % (Auto) 12.6 L (22.0-35.0) % [place] % (Auto) 5.9 (1.0-6.0) % Eos % (Auto) 0.0 L (1.5-5.0) % Baso % (Auto) 0.0 (0.0-3.0) % Lymph # (Auto) 0.9 L (1.2-3.4) [place] # (Auto) 0.4 (0.1-0.6) Eos # (Auto) 0.0 (0.0-0.7) Baso # (Auto) 0.00 (0.0-2.0) K/mm3 Absolute Neuts (auto) 5.98 (1.4-6.5) PT (9.4-12.5) SECONDS INR APTT (26.9-38.3) Seconds Sodium 134 (132-148) mmol/L Potassium 3.6 (3.6-5.0) mmol/L Chloride 97 L (98-107) mmol/L Carbon Dioxide 30 (21-33) mmol/L Anion Gap 11 (10-20) BUN 31 H (7-21) mg/dL Creatinine 3.0 H (0.7-1.2) mg/dl Est GFR ( Amer) 18 Est GFR (Non-Af Amer) 15 POC Glucose (mg/dL) (65-110) mg/dL Random Glucose 176 H (70-110) mg/dL Calcium 7.8 L (8.4-10.5) mg/dL Phosphorus (2.5-4.5) mg/dL Magnesium (1.7-2.2) mg/dL Total Bilirubin 2.1 H (0.2-1.3) mg/dL AST 21 (14-36) U/L ALT 27 (7-56) U/L Alkaline Phosphatase 300 H D (38-126) U/L Lactate Dehydrogenase 299 L (333-699) U/L Total Creatine Kinase < 20 L (35-230) U/L Troponin I 0.04 D ng/mL Total Protein 5.0 L (5.8-8.3) g/dL Albumin 2.2 L (3.0-4.8) g/dL Globulin 2.8 gm/dL Albumin/Globulin Ratio 0.8 L (1.1-1.8) 12/13/18 Range/Units 00:25 WBC (4.5-11.0) 10^3/uL RBC (3.5-6.1) 10^6/uL Hgb (12.0-16.0) g/dL Hct (36.0-48.0) % MCV (80.0-105.0) fl MCH (25.0-35.0) pg MCHC (31.0-37.0) g/dl RDW (11.5-14.5) % Plt Count (120.0-450.0) 10^3/uL MPV (7.0-11.0) fl Neut % (Auto) (50.0-68.0) % Lymph % (Auto) (22.0-35.0) % [place] % (Auto) (1.0-6.0) % Eos % (Auto) (1.5-5.0) % Baso % (Auto) (0.0-3.0) % Lymph # (Auto) (1.2-3.4) [place] # (Auto) (0.1-0.6) Eos # (Auto) (0.0-0.7) Baso # (Auto) (0.0-2.0) K/mm3 Absolute Neuts (auto) (1.4-6.5) PT 10.1 (9.4-12.5) SECONDS INR 0.91 APTT 27.3 (26.9-38.3) Seconds Sodium (132-148) mmol/L Potassium (3.6-5.0) mmol/L Chloride (98-107) mmol/L Carbon Dioxide (21-33) mmol/L Anion Gap (10-20) BUN (7-21) mg/dL Creatinine (0.7-1.2) mg/dl Est GFR ( Amer) Est GFR (Non-Af Amer) POC Glucose (mg/dL) (65-110) mg/dL Random Glucose (70-110) mg/dL Calcium (8.4-10.5) mg/dL Phosphorus (2.5-4.5) mg/dL Magnesium (1.7-2.2) mg/dL Total Bilirubin (0.2-1.3) mg/dL AST (14-36) U/L ALT (7-56) U/L Alkaline Phosphatase (38-126) U/L Lactate Dehydrogenase (333-699) U/L Total Creatine Kinase (35-230) U/L Troponin I ng/mL Total Protein (5.8-8.3) g/dL Albumin (3.0-4.8) g/dL Globulin gm/dL Albumin/Globulin Ratio (1.1-1.8) Laboratory Results - last 24 hr 12/13/18 12/13/18 12/13/18 00:25 00:25 00:25 WBC 7.0 D RBC 3.41 L Hgb 9.6 L Hct 28.4 L MCV 83.3 MCH 28.2 MCHC 33.8 RDW 19.6 H Plt Count 118 L MPV 11.9 H Neut % (Auto) Lymph % (Auto) [place] % (Auto) Eos % (Auto) Baso % (Auto) Lymph # (Auto) [place] # (Auto) Eos # (Auto) Baso # (Auto) Absolute Neuts (auto) PT 10.1 INR 0.91 APTT 27.3 Sodium 134 Potassium 3.6 Chloride 97 L Carbon Dioxide 30 Anion Gap 11 BUN 31 H Creatinine 3.0 H Est GFR ( Amer) 18 Est GFR (Non-Af Amer) 15 POC Glucose (mg/dL) Random Glucose 176 H Calcium 7.8 L Phosphorus Magnesium Total Bilirubin 2.1 H AST 21 ALT 27 Alkaline Phosphatase 300 H D Lactate Dehydrogenase 299 L Total Creatine Kinase < 20 L Troponin I 0.04 D Total Protein 5.0 L Albumin 2.2 L Globulin 2.8 Albumin/Globulin Ratio 0.8 L 12/13/18 12/13/18 12/13/18 05:30 05:30 08:16 WBC 7.3 RBC 2.88 L Hgb 8.0 L Hct 23.9 L MCV 83.0 MCH 27.8 MCHC 33.5 RDW 19.6 H Plt Count 119 L MPV 10.9 Neut % (Auto) 81.5 H Lymph % (Auto) 12.6 L [place] % (Auto) 5.9 Eos % (Auto) 0.0 L Baso % (Auto) 0.0 Lymph # (Auto) 0.9 L [place] # (Auto) 0.4 Eos # (Auto) 0.0 Baso # (Auto) 0.00 Absolute Neuts (auto) 5.98 PT INR APTT Sodium 135 Potassium 3.1 L Chloride 100 Carbon Dioxide 25 Anion Gap 13 BUN 30 H Creatinine 3.0 H Est GFR ( Amer) 18 Est GFR (Non-Af Amer) 15 POC Glucose (mg/dL) 89 Random Glucose 188 H Calcium 7.5 L Phosphorus 3.7 Magnesium 1.5 L Total Bilirubin 2.3 H AST 14 D ALT 27 Alkaline Phosphatase 300 H Lactate Dehydrogenase Total Creatine Kinase Troponin I 0.04 Total Protein 5.2 L Albumin 2.2 L Globulin 3.0 Albumin/Globulin Ratio 0.8 L 12/13/18 08:21 WBC RBC Hgb Hct MCV MCH MCHC RDW Plt Count MPV Neut % (Auto) Lymph % (Auto) [place] % (Auto) Eos % (Auto) Baso % (Auto) Lymph # (Auto) [place] # (Auto) Eos # (Auto) Baso # (Auto) Absolute Neuts (auto) PT INR APTT Sodium Potassium Chloride Carbon Dioxide Anion Gap BUN Creatinine Est GFR ( Amer) Est GFR (Non-Af Amer) POC Glucose (mg/dL) 230 H Random Glucose Calcium Phosphorus Magnesium Total Bilirubin AST ALT Alkaline Phosphatase Lactate Dehydrogenase Total Creatine Kinase Troponin I Total Protein Albumin Globulin Albumin/Globulin Ratio Radiology Impressions: Radiology Impressions Chest X-Ray 12/13/18 00:00 IMPRESSION: No active disease. EKG/Cardiology Studies: Cardiology / EKG Studies 12/13/18 ELECTROCARDIOGRAM Stat Comment: Reason For Exam: weak Critical Care Progress Note - Nutrition Nutrition: Nutrition Category Date Time Status NPO Diet [DIET] Diets 12/13/18 Lunch Ordered Assessment/Plan - Assessment and Plan (Free Text) Assessment: 73 yo F with PMH of A-fib, PNA, chronic leg edema, asthma, COPD, and chronic LE venous stasis admitted from [facility] for concern that patient was becoming hypotensive, with BP 70s/30s. It is unclear whether she was receiving home dose of midodrine at [facility]. She has received IVF resuscitation since admission to MICU and is now maintaining MAP > 60 on pressor support. Plan: Neuro: AA/o x 3, no focal neurologic deficit, moving all extremities spontaneously, able to protect airway Monitor neuro status Reorient as necessary Cardio: On last admission, patient was admitted with cardiogenic shock complicated by acute renal failure thought to be 2/2 to digoxin toxicity She was not continued on digoxin, but has continued warfarin Patient was started on dobutamine last night for episodes of bradycardia Has improved, will d/c dobutamine this AM Resume home dose of midodrine 10 mg TID Maintain MAP>65 Monitor for S/Sx of HD compromise Cardiology following, all recs appreciated Pulm: No current complains of SOB or cough CXR this admission without concerning findings No active issues /Nephro: Renal function parameters improved from prior admission Patient has been receiving MWF dialysis at [facility] difficult to assess accurately but is voiding Last admission, adams was unable to be placed, will not attempt at this time Continue dialysis while inpatient Hypokalemia, hypomagnesemia noted and replaced, replete other electrolytes PRN Nephrology consult placed, all recs appreciated GI: NPO pending swallow evaluation for concern of patient's AMS F/u swallow eval and order diet as recommended Endo: Random glucose: 188 Continue ISS - medium Maintain euglycemia Heme/Onc: Normocytic anemia noted, H/H also noted to be worsening since admission Suspect most likely 2/2 anemia of chronic renal disease Consider transfusion PRBCs if continues to trend downward ID: Afebrile, no leukocytosis F/u lugo cx, procal, lactate DVT/GI PPX: Home warfarin/protonix Full Code NPO pending swallow eval, restart diet Monitor in MICU Patient seen, examined with, and plan discussed with my attending Dr. Carissa Qiu, D.O. IM Resident PGY-1 Pager: [phone] <Ari Ferrer - Last Filed: 12/13/18 12:55> CCU Objective - Vital Signs / Intake & Output Intake and Output (Last 8hrs): Intake & Output 12/12/18 12/13/18 12/13/18 22:59 06:59 14:59 Intake Total 100 Balance 100 Weight 277 lb Intake: IV 100 - Medications Active Medications: Active Medications Generic Name Dose Route Start Last Admin Trade Name Freq PRN Reason Stop Dose Admin Albumin Human 25 gm 12/13/18 11:21 Albumin Human 25% (12.5 Gm/50 Ml) IV TTS PRN Other Albuterol/Ipratropium 3 ml 12/13/18 06:00 05/02/19 07:28 Duoneb 3 Mg/0.5 Mg (3 Ml) Ud IH 3 ml Q6 [facility] Administration Betamethasone/Clotrimazole 0 gm 12/13/18 10:00 Lotrisone TOP BID RONI Cyproheptadine HCl 4 mg 12/13/18 10:00 Periactin PO DAILY [facility] Darbepoetin Siddhartha 50 mcg 12/13/18 12:00 Aranesp IVP QWK [facility] Fluticasone Propionate 1 actuation 12/13/18 10:00 Flonase NS DAILY [facility] Hydrocortisone Sodium Succinate 50 mg 12/13/18 08:00 12/13/18 07:57 Solu-Cortef IVP 50 mg Q6 [facility] Administration Dopamine HCl/Dextrose 400 mg in 250 mls @ 23.558 mls/hr 12/13/18 01:35 12/13/18 04:16 Dopamine 400mg/250ml D5w IV 7.5 mcg/kg/min .[id number] PRN 35.338 mls/hr TITRATE PER MD ORDER Titration Protocol 5 MCG/KG/MIN NOREPINEPHRINE BIT/0.9 % NACL 4 mg in 250 mls @ 15 mls/hr 12/13/18 05:20 12/13/18 07:06 Levophed 4 Mg/ 250 Ml Ns Premixed IV 8 mcg/min .[id number] PRN 30 mls/hr TITRATE PER MD ORDER Titration Protocol 4 MCG/MIN Sodium Chloride 1,000 mls @ 125 mls/hr 12/13/18 09:15 Sodium Chloride 0.9% IV .Q8H [facility] Insulin Human Regular 0 units 12/13/18 11:30 Humulin R Med SC ACHS [facility] Protocol Levothyroxine Sodium 25 mcg 12/13/18 06:00 Synthroid PO 0600 [facility] Midodrine 10 mg 12/13/18 10:00 12/13/18 09:23 Proamatine PO 10 mg TID [facility] Administration Mupirocin 30 gm 12/13/18 02:45 Bactroban Ointment EXT BID [facility] Budesonide [ 1 puff 12/13/18 10:00 Pulmicort Flexhaler] IH 1 Puff (Home Med) QID [facility] Pantoprazole Sodium 40 mg 12/13/18 06:00 Protonix Ec Tab PO 0600 [facility] Silver Sulfadiazine 0 gm 12/13/18 02:45 12/13/18 03:30 Silvadene 1% 25 Gm TP 25 gm BID [facility] Administration Warfarin Sodium 3 mg 12/13/18 18:00 Coumadin PO 1800 [facility] Protocol - Patient Studies Lab Studies: Lab Studies 12/13/18 12/13/18 12/13/18 Range/Units 11:34 08:21 08:16 WBC (4.5-11.0) 10^3/uL RBC (3.5-6.1) 10^6/uL Hgb (12.0-16.0) g/dL Hct (36.0-48.0) % MCV (80.0-105.0) fl MCH (25.0-35.0) pg MCHC (31.0-37.0) g/dl RDW (11.5-14.5) % Plt Count (120.0-450.0) 10^3/uL MPV (7.0-11.0) fl Neut % (Auto) (50.0-68.0) % Lymph % (Auto) (22.0-35.0) % [place] % (Auto) (1.0-6.0) % Eos % (Auto) (1.5-5.0) % Baso % (Auto) (0.0-3.0) % Lymph # (Auto) (1.2-3.4) [place] # (Auto) (0.1-0.6) Eos # (Auto) (0.0-0.7) Baso # (Auto) (0.0-2.0) K/mm3 Absolute Neuts (auto) (1.4-6.5) PT (9.4-12.5) SECONDS INR APTT (26.9-38.3) Seconds Sodium (132-148) mmol/L Potassium (3.6-5.0) mmol/L Chloride (98-107) mmol/L Carbon Dioxide (21-33) mmol/L Anion Gap (10-20) BUN (7-21) mg/dL Creatinine (0.7-1.2) mg/dl Est GFR ( Amer) Est GFR (Non-Af Amer) POC Glucose (mg/dL) 233 H 230 H 89 (65-110) mg/dL Random Glucose (70-110) mg/dL Calcium (8.4-10.5) mg/dL Phosphorus (2.5-4.5) mg/dL Magnesium (1.7-2.2) mg/dL Total Bilirubin (0.2-1.3) mg/dL AST (14-36) U/L ALT (7-56) U/L Alkaline Phosphatase (38-126) U/L Lactate Dehydrogenase (333-699) U/L Total Creatine Kinase (35-230) U/L Troponin I ng/mL Total Protein (5.8-8.3) g/dL Albumin (3.0-4.8) g/dL Globulin gm/dL Albumin/Globulin Ratio (1.1-1.8) 12/13/18 12/13/18 12/13/18 Range/Units 05:30 05:30 00:25 WBC 7.3 7.0 D (4.5-11.0) 10^3/uL RBC 2.88 L 3.41 L (3.5-6.1) 10^6/uL Hgb 8.0 L 9.6 L (12.0-16.0) g/dL Hct 23.9 L 28.4 L (36.0-48.0) % MCV 83.0 83.3 (80.0-105.0) fl MCH 27.8 28.2 (25.0-35.0) pg MCHC 33.5 33.8 (31.0-37.0) g/dl RDW 19.6 H 19.6 H (11.5-14.5) % Plt Count 119 L 118 L (120.0-450.0) 10^3/uL MPV 10.9 11.9 H (7.0-11.0) fl Neut % (Auto) 81.5 H (50.0-68.0) % Lymph % (Auto) 12.6 L (22.0-35.0) % [place] % (Auto) 5.9 (1.0-6.0) % Eos % (Auto) 0.0 L (1.5-5.0) % Baso % (Auto) 0.0 (0.0-3.0) % Lymph # (Auto) 0.9 L (1.2-3.4) [place] # (Auto) 0.4 (0.1-0.6) Eos # (Auto) 0.0 (0.0-0.7) Baso # (Auto) 0.00 (0.0-2.0) K/mm3 Absolute Neuts (auto) 5.98 (1.4-6.5) PT (9.4-12.5) SECONDS INR APTT (26.9-38.3) Seconds Sodium 135 (132-148) mmol/L Potassium 3.1 L (3.6-5.0) mmol/L Chloride 100 (98-107) mmol/L Carbon Dioxide 25 (21-33) mmol/L Anion Gap 13 (10-20) BUN 30 H (7-21) mg/dL Creatinine 3.0 H (0.7-1.2) mg/dl Est GFR ( Amer) 18 Est GFR (Non-Af Amer) 15 POC Glucose (mg/dL) (65-110) mg/dL Random Glucose 188 H (70-110) mg/dL Calcium 7.5 L (8.4-10.5) mg/dL Phosphorus 3.7 (2.5-4.5) mg/dL Magnesium 1.5 L (1.7-2.2) mg/dL Total Bilirubin 2.3 H (0.2-1.3) mg/dL AST 14 D (14-36) U/L ALT 27 (7-56) U/L Alkaline Phosphatase 300 H (38-126) U/L Lactate Dehydrogenase (333-699) U/L Total Creatine Kinase (35-230) U/L Troponin I 0.04 ng/mL Total Protein 5.2 L (5.8-8.3) g/dL Albumin 2.2 L (3.0-4.8) g/dL Globulin 3.0 gm/dL Albumin/Globulin Ratio 0.8 L (1.1-1.8) 12/13/18 12/13/18 Range/Units 00:25 00:25 WBC (4.5-11.0) 10^3/uL RBC (3.5-6.1) 10^6/uL Hgb (12.0-16.0) g/dL Hct (36.0-48.0) % MCV (80.0-105.0) fl MCH (25.0-35.0) pg MCHC (31.0-37.0) g/dl RDW (11.5-14.5) % Plt Count (120.0-450.0) 10^3/uL MPV (7.0-11.0) fl Neut % (Auto) (50.0-68.0) % Lymph % (Auto) (22.0-35.0) % [place] % (Auto) (1.0-6.0) % Eos % (Auto) (1.5-5.0) % Baso % (Auto) (0.0-3.0) % Lymph # (Auto) (1.2-3.4) [place] # (Auto) (0.1-0.6) Eos # (Auto) (0.0-0.7) Baso # (Auto) (0.0-2.0) K/mm3 Absolute Neuts (auto) (1.4-6.5) PT 10.1 (9.4-12.5) SECONDS INR 0.91 APTT 27.3 (26.9-38.3) Seconds Sodium 134 (132-148) mmol/L Potassium 3.6 (3.6-5.0) mmol/L Chloride 97 L (98-107) mmol/L Carbon Dioxide 30 (21-33) mmol/L Anion Gap 11 (10-20) BUN 31 H (7-21) mg/dL Creatinine 3.0 H (0.7-1.2) mg/dl Est GFR ( Amer) 18 Est GFR (Non-Af Amer) 15 POC Glucose (mg/dL) (65-110) mg/dL Random Glucose 176 H (70-110) mg/dL Calcium 7.8 L (8.4-10.5) mg/dL Phosphorus (2.5-4.5) mg/dL Magnesium (1.7-2.2) mg/dL Total Bilirubin 2.1 H (0.2-1.3) mg/dL AST 21 (14-36) U/L ALT 27 (7-56) U/L Alkaline Phosphatase 300 H D (38-126) U/L Lactate Dehydrogenase 299 L (333-699) U/L Total Creatine Kinase < 20 L (35-230) U/L Troponin I 0.04 D ng/mL Total Protein 5.0 L (5.8-8.3) g/dL Albumin 2.2 L (3.0-4.8) g/dL Globulin 2.8 gm/dL Albumin/Globulin Ratio 0.8 L (1.1-1.8) Laboratory Results - last 24 hr 12/13/18 12/13/18 12/13/18 00:25 00:25 00:25 WBC 7.0 D RBC 3.41 L Hgb 9.6 L Hct 28.4 L MCV 83.3 MCH 28.2 MCHC 33.8 RDW 19.6 H Plt Count 118 L MPV 11.9 H Neut % (Auto) Lymph % (Auto) [place] % (Auto) Eos % (Auto) Baso % (Auto) Lymph # (Auto) [place] # (Auto) Eos # (Auto) Baso # (Auto) Absolute Neuts (auto) PT 10.1 INR 0.91 APTT 27.3 Sodium 134 Potassium 3.6 Chloride 97 L Carbon Dioxide 30 Anion Gap 11 BUN 31 H Creatinine 3.0 H Est GFR ( Amer) 18 Est GFR (Non-Af Amer) 15 POC Glucose (mg/dL) Random Glucose 176 H Calcium 7.8 L Phosphorus Magnesium Total Bilirubin 2.1 H AST 21 ALT 27 Alkaline Phosphatase 300 H D Lactate Dehydrogenase 299 L Total Creatine Kinase < 20 L Troponin I 0.04 D Total Protein 5.0 L Albumin 2.2 L Globulin 2.8 Albumin/Globulin Ratio 0.8 L 12/13/18 12/13/18 12/13/18 05:30 05:30 08:16 WBC 7.3 RBC 2.88 L Hgb 8.0 L Hct 23.9 L MCV 83.0 MCH 27.8 MCHC 33.5 RDW 19.6 H Plt Count 119 L MPV 10.9 Neut % (Auto) 81.5 H Lymph % (Auto) 12.6 L [place] % (Auto) 5.9 Eos % (Auto) 0.0 L Baso % (Auto) 0.0 Lymph # (Auto) 0.9 L [place] # (Auto) 0.4 Eos # (Auto) 0.0 Baso # (Auto) 0.00 Absolute Neuts (auto) 5.98 PT INR APTT Sodium 135 Potassium 3.1 L Chloride 100 Carbon Dioxide 25 Anion Gap 13 BUN 30 H Creatinine 3.0 H Est GFR ( Amer) 18 Est GFR (Non-Af Amer) 15 POC Glucose (mg/dL) 89 Random Glucose 188 H Calcium 7.5 L Phosphorus 3.7 Magnesium 1.5 L Total Bilirubin 2.3 H AST 14 D ALT 27 Alkaline Phosphatase 300 H Lactate Dehydrogenase Total Creatine Kinase Troponin I 0.04 Total Protein 5.2 L Albumin 2.2 L Globulin 3.0 Albumin/Globulin Ratio 0.8 L 12/13/18 12/13/18 08:21 11:34 WBC RBC Hgb Hct MCV MCH MCHC RDW Plt Count MPV Neut % (Auto) Lymph % (Auto) [place] % (Auto) Eos % (Auto) Baso % (Auto) Lymph # (Auto) [place] # (Auto) Eos # (Auto) Baso # (Auto) Absolute Neuts (auto) PT INR APTT Sodium Potassium Chloride Carbon Dioxide Anion Gap BUN Creatinine Est GFR ( Amer) Est GFR (Non-Af Amer) POC Glucose (mg/dL) 230 H 233 H Random Glucose Calcium Phosphorus Magnesium Total Bilirubin AST ALT Alkaline Phosphatase Lactate Dehydrogenase Total Creatine Kinase Troponin I Total Protein Albumin Globulin Albumin/Globulin Ratio Radiology Impressions: Radiology Impressions Chest X-Ray 12/13/18 00:00 IMPRESSION: No active disease. EKG/Cardiology Studies: Cardiology / EKG Studies 12/13/18 ELECTROCARDIOGRAM Stat Comment: Reason For Exam: weak Critical Care Progress Note - Nutrition Nutrition: Nutrition Category Date Time Status NPO Diet [DIET] Diets 12/13/18 Lunch Ordered Assessment/Plan - Assessment and Plan (Free Text) Plan: I saw and examined the patient on rounds with the resident, agree with note with following additions/exceptions: Patient is 73yo female with PMhx of morbid obesity, chronic lymphedema, Afib on Coumadin, baseline SBP 80-90s, ESRD on HD presented with hypotension, initially put on Dopamine and Levophed, Dopamine now discontinued 2/2 tachycardia Currently afebrile HD stable SBP 90-110s, on Levophed 7mcg/min, given 2L NS bolus, Midodrine 10mg PO TID, and stress dose steroids Will attempt to wean off Levophed. Patient is awake, alert, in NAD, comfortable. Unclear if source of infection is present, on broad spectrum abx Merrem, Vanco ID consult placed Hypotension, rule out septic shock Afib on Coumadin Chronic lymphedema DM Recommend: - cont with supp o2 as needed, duonebs PRN - Broad spectrum abx, Merrem, Vanco, renally dosed, ID eval - panculture, UCx, BCx, Procal - follow up cardio - FS control - Stress dose steroids, Solucortef - Midodrine 10mg PO TID - IVF 1 L bolus - follow up renal, HD as per renal - dose coumadin - GI ppx - DVT ppx, Coumadin - Monitor in MICU Critical care time 35 minutes
[2018-12-13] MEDS ORDERED: Albumin Human 25% (12.5 gm/50 ml) IV PRN (11:21)
[2018-12-13] MEDS: Insulin Reg-MEDIUM-Coverage SC SCH ×3 (11:30→22:05)
[2018-12-13] MEDS ORDERED: Darbepoetin Alfa 25 mcg/ml Inj IVP SCH ×2 (12:00→15:00)
[2018-12-13] MEDS ORDERED: Vancomycin 1gm in NS 250ml 1 GM/250 ML BAG IVPB STA (12:53)
--- NOTE | 2018-12-13 14:20 | CP.PCM.CON ---
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 nephrovite 1 tab daily Maintain hemodynamics stable. Avoid hypotension. Patient not on ACEI/ARB due to recent CRIS and low BP. Albumin IV prn with HD for low BP. on midodrine 10 mg TID. will add florinef 0.1 mg/d. Monitor Input/Output, daily weights and renal function with basic metabolic panel dose of aransep weekly. PRBC as needed supplement lytes as needed Dose meds/antibiotics for reduced GFR. Avoid fleets enema/magnesium based laxatives. Avoid nephrotoxins/NSAIDs/ iodinated contrast (unless needed emergently) Glycemic control. Further work up/management as per primary team Thanks for allowing me to participate in care of your patient. Will follow patient with you. Please call if any Qs. had d/w team. 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 pt was transferred due to low BP. she feels better today and improves dizziness Denies OTC/herbal meds or NSAIDs No recent iodinated contrast exposure. ROS: Cardiovascular: No chest pain. Pulmonary: improved shortness of breath Gastrointestinal: denies abdominal pain no nausea. No vomiting. Genitourinary: No pain while urinating. Denies blood in urine. not much UOP All other negative except as mentioned in HPI. has chronic legs swelling. overall not much interactive Physical Examination: General Appearance: Comfortable, in no acute respiratory distress, co-operative. morbidly obese ++ ill appearing debilitated Vitals reviewed and noted as below Head; Atraumatic, normocephalic ENT: no ulcers no thrush. Tongue is midline. Oropharynx: no rash or ulcers. EYES: Pupils are equal, round and reactive to light accommodation. Eye muscles and extraocular movement intact. Sclera is icteric. Neck; supple no lymphadenopathy, no thyromegaly or bruit Lungs: normal respiratory rate/effort. Breath sounds bilateral equal and clear anteriorly Heart: Incr rate. s1s2 normal. No rub or gallop. Extremities: 1+ pedal pitting edema. No varicose veins Neurological: Patient is awake oriented. No focal deficit. Strength bilateral appropriate and equal. Skin: Warm and dry. Normal turgor. No rash. Palpitation: Normal elasticity for age Abdomen: Abdomen is soft. Bowel sounds +. There is no abdominal tenderness, no guarding/rigidity no organomegaly Psych: limited insight and normal affect/mood MSK: no joint tenderness or swelling. Digits and nails normal, no deformity : kidney or bladder not palpable access: Rt PC Labs/imaging reviewed. Past medical history, past surgical history, family history, social history, allergy reviewed and noted as below Family hx: no hx of CKD. Rest non-contributory Echo; normal lvef, severe MR/TR/CO renal imaging: kidney cyst TSAT/Ferritin 12/356, SPEP/DILSHAD neg and normal FLC assay Vit D <12.8 PTH 286 urine alb/cr 126 mg/g Past Patient History - Infectious Disease Hx of Infectious Diseases: None - Tetanus Immunizations Tetanus Immunization: Unknown - Past Social History Smoking Status: Never Smoked - CARDIAC Hx Cardiac Disorders: Yes - PULMONARY Hx Chronic Obstructive Pulmonary Disease (COPD): Yes - NEUROLOGICAL Hx Neurological Disorder: No - HEENT Hx HEENT Problems: Yes (glasses) - RENAL Hx Renal Failure: Yes - ENDOCRINE/METABOLIC Hx Diabetes Mellitus Type 2: Yes - HEMATOLOGICAL/ONCOLOGICAL Hx Blood Disorders: Yes (septicemia) Hx Anemia: Yes - INTEGUMENTARY Hx Dermatological Problems: Yes (chronic venous stasis dermatitis ble) Other/Comment: pt is obese, right outer thigh skin openings healed, redness, hard brown dry skin, dimpling to left thigh, pt c/o that she, sometimes has drainage from left thigh. both lower legs and feet dry skin. redness and discoloration to right abd fold healed, ble +4 pitting edema & brown discolored dry skin, dry skin and toenails both feet, multiple healing unmeasurable wounds to b/l buttocks, irregular wound left buttock red, multiple wounds in various stages of healing to entire abd, multiple areas of red foul smelling and draining light green purulent drainage wounds to upper and lower abd, discolored brown skin to abd, healing wounds to b/l thighs - MUSCULOSKELETAL/RHEUMATOLOGICAL Hx Falls: No - GASTROINTESTINAL Hx Gastroesophageal Reflux: Yes - GENITOURINARY/GYNECOLOGICAL Hx Genitourinary Disorders: Yes Hx Hematuria: Yes Hx Incontinence: Yes (urine and stool) Hx Urinary Tract Infection: Yes - PSYCHIATRIC Hx Psychophysiologic Disorder: No Hx Substance Use: No - SURGICAL HISTORY Hx Cardiac Catheterization: Yes Hx Mastectomy: No Other/Comment: benign mass removed from abd over 30 yrs ago - ANESTHESIA Hx Anesthesia: Yes Hx Anesthesia Reactions: No Hx Malignant Hyperthermia: No Meds Allergies/Adverse Reactions: Allergies Allergy/AdvReac Type Severity Reaction Status Date / Time No Known Allergies Allergy Verified 11/22/18 14:50 - Medications Medications: Current Medications Albumin Human (Albumin Human 25% (12.5 Gm/50 Ml)) 25 gm IV TTS PRN PRN Reason: Other Albuterol/Ipratropium (Duoneb 3 Mg/0.5 Mg (3 Ml) Ud) 3 ml IH Q6 [facility] Last Admin: 12/13/18 13:13 Dose: Not Given Betamethasone/Clotrimazole (Lotrisone) 0 gm TOP BID [facility] Cyproheptadine HCl (Periactin) 4 mg PO DAILY [facility]1983 Darbepoetin Siddhartha (Aranesp) 50 mcg IVP QWK [facility]1983 Fludrocortisone Acetate (Florinef) 0.1 mg PO DAILY [facility] Fluticasone Propionate (Flonase) 1 actuation NS DAILY [facility] Hydrocortisone Sodium Succinate (Solu-Cortef) 50 mg IVP Q6 [facility] Last Admin: 12/13/18 07:57 Dose: 50 mg Dopamine HCl/Dextrose (Dopamine 400mg/250ml D5w) 400 mg in 250 mls @ 23.558 mls/hr IV .[id number] PRN; Protocol PRN Reason: TITRATE PER MD ORDER Last Titration: 12/13/18 04:16 Dose: 7.5 mcg/kg/min, 35.338 mls/hr NOREPINEPHRINE BIT/0.9 % NACL (Levophed 4 Mg/ 250 Ml Ns Premixed) 4 mg in 250 mls @ 15 mls/hr IV .[id number] PRN; Protocol PRN Reason: TITRATE PER MD ORDER Last Titration: 12/13/18 07:06 Dose: 8 mcg/min, 30 mls/hr Sodium Chloride (Sodium Chloride 0.9%) 1,000 mls @ 125 mls/hr IV .Q8H RONI Meropenem/Sodium Chloride (Merrem Iv 500 Mg/Ns 50 Ml) 500 mg in 50 mls @ 100 mls/hr IVPB Q12 RONI; Protocol Stop: 12/13/18 22:29 Vancomycin HCl (Vancomycin 1gm) 1 gm in 250 mls @ 167 mls/hr IVPB STAT STA; Protocol Stop: 12/13/18 14:22 Insulin Human Regular (Humulin R Med) 0 units SC ACHS [facility]; Protocol Levothyroxine Sodium (Synthroid) 25 mcg PO 0600 RONI Midodrine (Proamatine) 10 mg PO TID [facility] Last Admin: 12/13/18 09:23 Dose: 10 mg Mupirocin (Bactroban Ointment) 30 gm EXT BID [facility] Budesonide [ Pulmicort Flexhaler] 1 Puff (Home Med) 1 puff IH QID [facility] Pantoprazole Sodium (Protonix Ec Tab) 40 mg PO 0600 [facility] Silver Sulfadiazine (Silvadene 1% 25 Gm) 0 gm TP BID [facility] Last Admin: 12/13/18 03:30 Dose: 25 gm Warfarin Sodium (Coumadin) 3 mg PO 1800 RONI; Protocol Results - Vital Signs Recent Vital Signs: Last Vital Signs Temp 98.1 F 12/13/18 05:09 Pulse 112 H 12/13/18 05:09 Resp 20 12/13/18 05:09 BP 99/51 L 12/13/18 04:40 Pulse Ox 100 12/13/18 04:40 - Labs Result Diagrams: 12/13/18 05:30 12/13/18 05:30 Labs: Laboratory Results - last 24 hr 12/13/18 12/13/18 12/13/18 00:25 00:25 00:25 WBC 7.0 D RBC 3.41 L Hgb 9.6 L Hct 28.4 L MCV 83.3 MCH 28.2 MCHC 33.8 RDW 19.6 H Plt Count 118 L MPV 11.9 H Neut % (Auto) Lymph % (Auto) Mercer % (Auto) Eos % (Auto) Baso % (Auto) Lymph # (Auto) Mercer # (Auto) Eos # (Auto) Baso # (Auto) Absolute Neuts (auto) PT 10.1 INR 0.91 APTT 27.3 Sodium 134 Potassium 3.6 Chloride 97 L Carbon Dioxide 30 Anion Gap 11 BUN 31 H Creatinine 3.0 H Est GFR ( Amer) 18 Est GFR (Non-Af Amer) 15 POC Glucose (mg/dL) Random Glucose 176 H Calcium 7.8 L Phosphorus Magnesium Total Bilirubin 2.1 H AST 21 ALT 27 Alkaline Phosphatase 300 H D Lactate Dehydrogenase 299 L Total Creatine Kinase < 20 L Troponin I 0.04 D Total Protein 5.0 L Albumin 2.2 L Globulin 2.8 Albumin/Globulin Ratio 0.8 L Cortisol AM Sample 12/13/18 12/13/18 12/13/18 05:30 05:30 05:30 WBC 7.3 RBC 2.88 L Hgb 8.0 L Hct 23.9 L MCV 83.0 MCH 27.8 MCHC 33.5 RDW 19.6 H Plt Count 119 L MPV 10.9 Neut % (Auto) 81.5 H Lymph % (Auto) 12.6 L Mercer % (Auto) 5.9 Eos % (Auto) 0.0 L Baso % (Auto) 0.0 Lymph # (Auto) 0.9 L Mercer # (Auto) 0.4 Eos # (Auto) 0.0 Baso # (Auto) 0.00 Absolute Neuts (auto) 5.98 PT INR APTT Sodium 135 Potassium 3.1 L Chloride 100 Carbon Dioxide 25 Anion Gap 13 BUN 30 H Creatinine 3.0 H Est GFR ( Amer) 18 Est GFR (Non-Af Amer) 15 POC Glucose (mg/dL) Random Glucose 188 H Calcium 7.5 L Phosphorus 3.7 Magnesium 1.5 L Total Bilirubin 2.3 H AST 14 D ALT 27 Alkaline Phosphatase 300 H Lactate Dehydrogenase Total Creatine Kinase Troponin I 0.04 Total Protein 5.2 L Albumin 2.2 L Globulin 3.0 Albumin/Globulin Ratio 0.8 L Cortisol AM Sample 30.5 H 12/13/18 12/13/18 12/13/18 08:16 08:21 11:34 WBC RBC Hgb Hct MCV MCH MCHC RDW Plt Count MPV Neut % (Auto) Lymph % (Auto) Mercer % (Auto) Eos % (Auto) Baso % (Auto) Lymph # (Auto) Mercer # (Auto) Eos # (Auto) Baso # (Auto) Absolute Neuts (auto) PT INR APTT Sodium Potassium Chloride Carbon Dioxide Anion Gap BUN Creatinine Est GFR ( Amer) Est GFR (Non-Af Amer) POC Glucose (mg/dL) 89 230 H 233 H Random Glucose Calcium Phosphorus Magnesium Total Bilirubin AST ALT Alkaline Phosphatase Lactate Dehydrogenase Total Creatine Kinase Troponin I Total Protein Albumin Globulin Albumin/Globulin Ratio Cortisol AM Sample
[2018-12-13] MEDS ORDERED: DARBEPOETIN ALFA SC ONE (14:45)
[2018-12-13] MEDS ORDERED: DARBEPOETIN ALFA IVP SCH (15:00)
[2018-12-13] MEDS: Fluticasone Nasal 50 mcg/Spray NS SCH (15:00)
[2018-12-13] MEDS: Pantoprazole 40 mg EC Tab PO SCH (15:02)
[2018-12-13] MEDS: Levothyroxine 25 MCG TAB PO SCH (15:02)
--- NOTE | 2018-12-13 15:34 | CON ---
DATE: 12/13/2018 HISTORY OF PRESENT ILLNESS: The patient is a 73-year-old woman who is found to be mildly hypotensive during dialysis at the custodial facility. In addition, the wounds in her lower extremities needed attention PAST MEDICAL HISTORY: The patient's past medical history includes chronic atrial fibrillation, severe pulmonary hypertension, COPD, normal LV function with diabetes mellitus, hypertension and morbid obesity. MEDICATIONS: The patient is currently being treated with Coumadin for atrial fibrillation. REVIEW OF SYSTEMS: The patient is in bed in no acute distress. Review of systems are unchanged from all her previous admissions. PHYSICAL EXAMINATION: VITAL SIGNS: Blood pressure is 89 systolic, heart rate is atrial fibrillation in the 90s. NECK: Negative JVD. LUNGS: Decreased breath sounds. HEART: S1, S2. EXTREMITIES: Chronic severe edema. LABORATORY DATA: Hemoglobin is 8.0. BUN and creatinine is 30 and 3.0. The glucose is 188. IMPRESSION 1. Borderline hypotension. 2. End-stage renal disease. 3. Chronic atrial fibrillation. 4. Renal failure. 5. Morbid obesity. 6. Pedal edema. 7. Severe pulmonary hypertension. 8. Chronic obstructive pulmonary disease. PLAN: Given these findings, the patient will need extensive wound care. Currently, her heart rate is well-controlled. Ryan Turk MD
[2018-12-13] MEDS: Mupirocin 2% Ointment 15 GM TUBE EXT SCH (18:49)
[2018-12-13] MEDS: Clotrimazole/Betamethasone Cream(15 gm) TOP SCH (18:50)
[2018-12-13] MEDS: Sodium Chloride 0.9% 1,000 ML IV SCH ×2 (18:51→18:52)
--- NOTE | 2018-12-13 20:04 | HP ---
DATE OF EXAM: 12/13/2018 HISTORY OF PRESENT ILLNESS: I was seeing her at home on house calls, seeing her in the hospital now, I am seeing her at [facility] subacute rehab where she had a very low blood pressure and not really responding that well, and we sent her back to [facility]. She is a 73-year-old female who has had a very rough last year, back and forth to the hospital from home. She was morbidly, morbidly obese at over 700 pounds in the past 4 to 5 months, lost about 400 pounds, not sure why, she is down to 300 maybe last. She is just not eating anymore. We did a whole bunch of CT scans, they were normal. She was then seen by multiple physicians. Now she comes in with hypotension on dobutamine. She has been in the Intensive Care Unit. PAST MEDICAL HISTORY: COPD, asthma, AFib, CHF, diabetes, anemia, end-stage renal disease now on hemodialysis. Blood pressure was 69 systolic. She is on midodrine to try to help her blood pressure stay elevated. She was getting it at [facility]. She has had palpitations with AFib, CHF history, asthma, pneumonia history. Very lethargic. She has diabetes. She has been septic in the past, chronic venous stasis dermatitis, bilateral lower extremity swelling. The patient is obese. Right outer thigh skin opening is healed, redness. She has good on both sides of her thighs. She does have a grade 1 red buttocks ulcer, multiple areas of foul smelling and drainage, likely purulent drainage wounds. She will go to the wound care people to help us. She had a benign mass which was removed from her abdomen 30 years ago. Morbidly obese. She has had blood in the stool. She has got hematuria. She is incontinent. No substance abuse. FAMILY HISTORY: Unknown family history. SOCIAL HISTORY: Nonsmoker. No drinking. No drugs. ALLERGIES: NO KNOWN DRUG ALLERGIES. MEDICATIONS: She is on Coumadin, DuoNeb, Lotrisone cream, Flonase, Lasix, Synthroid, Glucophage, Silvadene cream, Pulmicort, Bactroban, Protonix, Periactin, midodrine, Digitek, Cardia. REVIEW OF SYSTEMS: She is very lethargic and weak. No acute vision or hearing losses, but poor overall. Throat is dry. Does not want to swallow. No appetite. No shortness of breath or cough. She has hypotensive. No abdominal pain, nausea, vomiting or constipation at this time. No real pains at this time, sometimes she does get pain. Does have skin ulcers in the skin and a different condition in the back with rashes and ulcers. Just generalized completely weak. PHYSICAL EXAMINATION: VITAL SIGNS: She has a 98.1 temperature, 112 pulse, 99/51 blood pressure now, 20 respiratory rate and 100% O2 sat on 2 liters. GENERAL: She is very tired, cachectic looking and slow to respond. Alert and oriented x3. HEENT: Head is atraumatic and normocephalic. Pupils equally reactive to light. Extraocular muscles intact. Throat is dry. NECK: Supple. No JVD. HEART: Regular rate, a little tachy, a little irregular changes and that is her baseline. LUNGS: Decreased breath sounds, very poor inspiration. No wheezes, rhonchi or rales. ABDOMEN: Morbidly obese and nontender. Positive bowel sounds. No guarding. No rebound. No CVA tenderness. EXTREMITIES: Have +4/4 pitting edema. Venous stasis on bilateral thighs and different stages of ulcers. NEUROLOGIC: GCS is 15. Cranial nerves II through XII grossly intact. Speech is normal. LABORATORY DATA: She had multiple tests. Chest x-ray was clear. EKG with AFib. She has a sodium of 135, potassium is 3.1, it was 3.6 when she came in, we will replace the potassium, BUN 30, creatinine 3, GFR is 15, sugar is 188, calcium is 7.5, phosphorous 3.7, magnesium 1.5, total bili is 2.3, AST is 14, ALT is 27, alk phos 300. Troponin I is 0.04. Total protein is 5.2. INR is 0.91 on Coumadin. White count 7.3, hemoglobin is 8, if it drops below 8 I will transfuse her, hematocrit is 22.9 and platelets are 119. ASSESSMENT AND PLAN: She has hypotension. She will go to consults with Renal and Cardiology. She is currently on Dopamine. She is in the Intensive Care Unit. We will check her labs and see if we can correct her fluids. She might need transfusion. She is extremely lethargic. Alan Mann DO
[2018-12-13] MEDS: MEROPENEM 500 MG in NS 500 MG/50 ML BAG IVPB SCH (21:25)
[2018-12-13] MEDS ORDERED: MEROPENEM 500 MG in NS 500 MG/50 ML BAG IVPB SCH (22:00)
[2018-12-13] MEDS ORDERED: Digoxin 500 mcg/2ml (0.5 mg/2ml) Inj IVP ONE (22:15)
[2018-12-13 22:23] VITALS: PULSE 145
--- NOTE | 2018-12-13 22:28 | CP.PCM.PN ---
Subjective - Date & Time of Evaluation Date of Evaluation: 12/13/18 Time of Evaluation: 22:10 - Subjective Subjective: Called by resident for A fib C RVR. Pt. is on levophed. No crackles heard on anterior chest. NS 250 cc bolus and digoxin 0.25 mg IV x 1. Pt. is on levophed for hypotension. Objective - Vital Signs/Intake and Output Vital Signs (last 24 hours): Temp Pulse Resp BP Pulse Ox 98.1 F 130 H 20 85/53 L 100 12/13/18 05:09 12/13/18 18:25 12/13/18 18:25 12/13/18 18:17 12/13/18 04:40 Intake and Output: 12/13/18 12/14/18 18:59 06:59 Intake Total 1680 Balance 1680 - Medications Medications: Current Medications Albumin Human (Albumin Human 25% (12.5 Gm/50 Ml)) 25 gm IV TTS PRN PRN Reason: Other Albuterol/Ipratropium (Duoneb 3 Mg/0.5 Mg (3 Ml) Ud) 3 ml IH Q6 [facility] Last Admin: 12/13/18 21:50 Dose: Not Given Betamethasone/Clotrimazole (Lotrisone) 0 gm TOP BID [facility] Last Admin: 12/13/18 18:50 Dose: Not Given Cyproheptadine HCl (Periactin) 4 mg PO DAILY [facility] Last Admin: 12/13/18 15:01 Dose: Not Given Darbepoetin Siddhartha 100 mcg/ (Darbepoetin Siddhartha 50 mcg) 150 mcg IVP QWK [facility] Fludrocortisone Acetate (Florinef) 0.1 mg PO DAILY [facility] Last Admin: 12/13/18 18:49 Dose: Not Given Fluticasone Propionate (Flonase) 1 actuation NS DAILY [facility] Last Admin: 12/13/18 15:00 Dose: Not Given Hydrocortisone Sodium Succinate (Solu-Cortef) 50 mg IVP Q6 [facility] Last Admin: 12/13/18 18:58 Dose: 50 mg Dopamine HCl/Dextrose (Dopamine 400mg/250ml D5w) 400 mg in 250 mls @ 23.558 mls/hr IV .[id number] PRN; Protocol PRN Reason: TITRATE PER MD ORDER Last Titration: 12/13/18 07:45 Dose: 0 mcg/kg/min, 0 mls/hr NOREPINEPHRINE BIT/0.9 % NACL (Levophed 4 Mg/ 250 Ml Ns Premixed) 4 mg in 250 mls @ 15 mls/hr IV .[id number] PRN; Protocol PRN Reason: TITRATE PER MD ORDER Last Titration: 12/13/18 07:06 Dose: 8 mcg/min, 30 mls/hr Meropenem/Sodium Chloride (Merrem Iv 500 Mg/Ns 50 Ml) 500 mg in 50 mls @ 100 mls/hr IVPB Q12 RONI; Protocol Stop: 12/21/18 22:01 Last Admin: 12/13/18 21:25 Dose: 100 mls/hr Sodium Chloride 1,000 ml/ IV (SUPPLIES) 1,000 mls @ 450 mls/hr IV ONCE ONE Stop: 12/14/18 00:28 Insulin Human Regular (Humulin R Med) 0 units SC ACHS [facility]; Protocol Last Admin: 12/13/18 22:05 Dose: Not Given Levothyroxine Sodium (Synthroid) 25 mcg PO 0600 [facility] Last Admin: 12/13/18 15:02 Dose: Not Given Midodrine (Proamatine) 10 mg PO TID [facility] Last Admin: 12/13/18 18:54 Dose: 10 mg Mupirocin (Bactroban Ointment) 30 gm EXT BID [facility] Last Admin: 12/13/18 18:49 Dose: Not Given Budesonide [ Pulmicort Flexhaler] 1 Puff (Home Med) 1 puff IH QID [facility] Pantoprazole Sodium (Protonix Ec Tab) 40 mg PO 0600 [facility] Last Admin: 12/13/18 15:02 Dose: Not Given Silver Sulfadiazine (Silvadene 1% 25 Gm) 0 gm TP BID [facility] Last Admin: 12/13/18 18:57 Dose: Not Given Warfarin Sodium (Coumadin) 3 mg PO 1800 [facility]; Protocol Last Admin: 12/13/18 18:55 Dose: 3 mg - Labs Labs: 12/13/18 05:30 12/13/18 05:30 PT 10.1 SECONDS (9.4-12.5) 12/13/18 00:25 INR 0.91 12/13/18 00:25 APTT 27.3 Seconds (26.9-38.3) 12/13/18 00:25
[2018-12-14 00:14] LABS: TROPONIN I 0.08 ng/mL
[2018-12-14 00:15] LABS: ALB/GLOB RATIO 0.8 (1.1-1.8); ALBUMIN 2.2 g/dL (3.0-4.8); ALT/SGPT 20 U/L (7-56); AST/SGOT 16 U/L (14-36); BLOOD UREA NITROGEN 20 mg/dL (7-21); CALCIUM 7.9 mg/dL (8.4-10.5); GFR NON-AFRICAN AMERICAN 22
--- NOTE | 2018-12-14 02:20 | CON ---
DATE: 12/13/2018 CHIEF COMPLAINT: Weakness times several days. HISTORY OF PRESENT ILLNESS: This is a 73-year-old female who was admitted through emergency room with weakness with a long past medical history significant for COPD, asthma, atrial fibrillation, congestive heart failure, diabetes mellitus, anemia, end-stage renal disease, on hemodialysis, sent home from custodial with weakness and found to have hypotension. The patient was scheduled for hemodialysis, hypotension she states dialysis. The patient has no fever. No chills. No nausea. No vomiting. No chest pain. REVIEW OF SYSTEMS: A 12-point review of systems was performed. PAST MEDICAL HISTORY: Significant for congestive heart failure, atrial fibrillation, asthma, COPD, diabetes, anemia, end-stage renal disease, on hemodialysis, urinary tract infection, and soft tissue infection. PAST SURGICAL HISTORY: Significant for cardiac catheterization. ALLERGIES: THE PATIENT HAS NO KNOWN ALLERGIES. MEDICATIONS AT HOME: Reveals the patient was on tramadol, prednisone inhaler, and Coumadin. PHYSICAL EXAMINATION: VITAL SIGNS: The patient is seen in bed with temperature of 98, heart rate of 124, blood pressure of 73/36, and respiratory rate of 12, it was up to 26. HEENT: Unremarkable. NECK: Supple. LUNGS: Decreased breath sounds. HEART: Normal S1 and S2. ABDOMEN: Soft and nontender. LABORATORY DATA: Reveals white count of 7000, hemoglobin of 9, and platelets of 118. Chemistry reveals BUN of 31, creatinine of 3, glucose of 136, bicarb of 11, and alk phos of 300. Dr. Ryan Turk's note is reviewed. Dr. Ari Ferrer's progress note is reviewed. ASSESSMENT AND PLAN: This is a 73-year-old female with multiple medical comorbidities admitted with septic shock versus cardiogenic shock. The patient with metabolic acidosis, hypotension, tachycardia, and dyspnea. Check on the blood cultures and urine cultures and also recommend a CAT scan of the abdomen and pelvis. We will treat the patient with intermittent vancomycin and meropenem. We will follow closely with you. Case discussed with the ICU staff. We will follow with you. Santy Fernandez MD [facility] # [id number]
[2018-12-14] MEDS: Albuterol-Ipratrop 3 mg / 0.5 (3 ml) UD IH SCH ×4 (02:23→20:33)
[2018-12-14] MEDS: Pantoprazole 40 mg EC Tab PO SCH (05:23)
[2018-12-14] MEDS: Levothyroxine 25 MCG TAB PO SCH (05:23)
[2018-12-14] MEDS: NOREPINEPHRINE BIT/0.9 % NACL 4 MG/250 ML BAG IV PRN (06:30)
[2018-12-14 06:47] LABS: BASO # 0.01 K/mm3 (0.0-2.0); BASO % 0.1 % (0.0-3.0); HEMOGLOBIN 9.2 g/dL (12.0-16.0); LYMPH # 1.2 (1.2-3.4); LYMPH % 12.1 % (22.0-35.0); MEAN CELL VOLUME 82.3 fl (80.0-105.0); MEAN CORPUSCULAR HEMOGLOBIN 27.5 pg (25.0-35.0); MEAN CORPUSCULAR HGB CONC 33.5 g/dl (31.0-37.0); MEAN PLATELET VOLUME 10.6 fl (7.0-11.0); MONO # 0.6 (0.1-0.6); MONO % 5.9 % (1.0-6.0); RBC 3.34 10^6/uL (3.5-6.1); RED CELL DISTRIBUTION WIDTH 19.7 % (11.5-14.5); WHITE BLOOD COUNT 9.7 10^3/uL (4.5-11.0)
[2018-12-14 07:07] LABS: ALB/GLOB RATIO 0.8 (1.1-1.8); ALBUMIN 2.2 g/dL (3.0-4.8); CALCIUM 8.1 mg/dL (8.4-10.5)
[2018-12-14 07:22] LABS: INR 13.36
[2018-12-14] MEDS: Insulin Reg-MEDIUM-Coverage SC SCH ×4 (08:00→22:51)
--- NOTE | 2018-12-14 09:12 | CP.CCUPN ---
<Jethro Qiu - Last Filed: 12/14/18 11:45> CCU Subjective - Physician Review Subjective (Free Text): Jethro Qiu DO, PGY-1 MICU Progress Note for Dr. Sosa Patient was seen and examined at bedside this AM. Overnight, she was noted to be in AFib and was subsequently given 1 x dose of digoxin which improved her HR. Since then she was been weaned off pressor support and HR is improved. CCU Objective - Vital Signs / Intake & Output Vital Signs (Last 4 hours): Vital Signs Pulse Resp BP Pulse Ox 12/14/18 08:00 101 H 12/14/18 06:40 93 H 12 100 12/14/18 06:30 86 14 88/48 L 100 12/14/18 06:20 100 H 11 L 100 12/14/18 06:12 108 H 13 100/37 L 100 12/14/18 06:10 108 H 10 L 100 12/14/18 06:00 103 H 10 L 71/50 L 100 12/14/18 05:50 92 H 15 100 12/14/18 05:40 109 H 10 L 100 12/14/18 05:32 100 H 13 86/50 L 99 12/14/18 05:30 92 H 13 100 12/14/18 05:20 98 H 13 77 L Intake and Output (Last 8hrs): Intake & Output 12/13/18 12/14/18 12/14/18 22:59 06:59 14:59 Intake Total 1690 670 Balance 1690 670 Intake: IV 1450 620 Left Upper arm 1300 270 Right Wrist 100 Oral 240 50 Other: # Voids Urine, Voided 0 # Bowel Movements 0 - Physical Exam Head: Positive for: Atraumatic, Normocephalic Pupils: Positive for: PERRL Extroacular Muscles: Positive for: EOMI Conjunctiva: Positive for: Normal Mouth: Positive for: Dry Pharnyx: Positive for: Normal. Negative for: ERYTHEMA, EXUDATE Nose (External): Positive for: Atraumatic Nose (Internal): Positive for: Normal Inspection Neck: Positive for: Normal Range of Motion Respiratory/Chest: Positive for: Clear to Auscultation, Good Air Exchange. Negative for: Respiratory Distress, Accessory Muscle Use, Rales, Rhonchi Cardiovascular: Positive for: Normal S1, S2, Irregular Rhythm (Irregularly i rregular rhythm, HR decreased s/p digoxin but persistently > 100), Tachycardic. Negative for: Murmurs, Rub, Gallop Abdomen: Positive for: Other (multiple open sores in intra-abdominal folds with surrounding erythema). Negative for: Tenderness, Distention, Peritoneal Signs Upper Extremity: Positive for: Normal Inspection. Negative for: Cyanosis, Edema Lower Extremity: Positive for: Edema (chronic bilateral lower leg lymphedema) Neurological: Positive for: Speech Normal Skin: Positive for: Warm, Dry, Normal Color. Negative for: Rashes Psychiatric: Positive for: Alert, Oriented x 3, Anxious - Medications Active Medications: Active Medications Generic Name Dose Route Start Last Admin Trade Name Freq PRN Reason Stop Dose Admin Albumin Human 25 gm 12/13/18 11:21 Albumin Human 25% (12.5 Gm/50 Ml) IV TTS PRN Other Albuterol/Ipratropium 3 ml 12/13/18 06:00 12/14/18 07:10 Duoneb 3 Mg/0.5 Mg (3 Ml) Ud IH Not Given Q6 JUAN MANUEL Betamethasone/Clotrimazole 0 gm 12/13/18 10:00 12/13/18 18:50 Lotrisone TOP Not Given BID JUAN MANUEL Cyproheptadine HCl 4 mg 12/13/18 10:00 12/13/18 15:01 Periactin PO Not Given DAILY JUAN MANUEL Darbepoetin Siddhartha 100 mcg/ 150 mcg 12/13/18 15:00 Darbepoetin Siddhartha 50 mcg IVP QWK JUAN MANUEL Fludrocortisone Acetate 0.1 mg 12/13/18 14:15 12/13/18 18:49 Florinef PO Not Given DAILY JUAN MANUEL Fluticasone Propionate 1 actuation 12/13/18 10:00 12/13/18 15:00 Flonase NS Not Given DAILY JUAN MANUEL Hydrocortisone Sodium Succinate 50 mg 12/13/18 08:00 12/14/18 05:22 Solu-Cortef IVP 50 mg Q6 JUAN MANUEL Administration Dopamine HCl/Dextrose 400 mg in 250 mls @ 23.558 mls/hr 12/13/18 01:35 12/13/18 07:45 Dopamine 400mg/250ml D5w IV 0 mcg/kg/min .[id number] PRN 0 mls/hr TITRATE PER MD ORDER Titration Protocol 5 MCG/KG/MIN NOREPINEPHRINE BIT/0.9 % NACL 4 mg in 250 mls @ 15 mls/hr 12/13/18 05:20 12/14/18 06:30 Levophed 4 Mg/ 250 Ml Ns Premixed IV 6 mcg/min .[id number] PRN 22.5 mls/hr TITRATE PER MD ORDER Administration Protocol 4 MCG/MIN Meropenem/Sodium Chloride 500 mg in 50 mls @ 100 mls/hr 12/13/18 22:00 12/13/18 21:25 Merrem Iv 500 Mg/Ns 50 Ml IVPB 12/21/18 22:01 100 mls/hr Q12 JUAN MANUEL Administration Protocol Insulin Human Regular 0 units 12/13/18 11:30 12/13/18 22:05 Humulin R Med SC Not Given ACHS [facility] Protocol Levothyroxine Sodium 25 mcg 12/13/18 06:00 12/14/18 05:23 Synthroid PO 25 mcg 0600 JUAN MANUEL Administration Midodrine 10 mg 12/13/18 10:00 12/13/18 18:54 Proamatine PO [address] [facility] Administration Mupirocin 30 gm 12/13/18 02:45 12/13/18 18:49 Bactroban Ointment EXT Not Given BID [facility] Budesonide [ 1 puff 12/13/18 10:00 Pulmicort Flexhaler] IH 1 Puff (Home Med) QID [facility] Pantoprazole Sodium 40 mg 12/13/18 06:00 12/14/18 05:23 Protonix Ec Tab PO [address] [facility] Administration Silver Sulfadiazine 0 gm 12/13/18 02:45 12/13/18 18:57 Silvadene 1% 25 Gm TP Not Given BID [facility] Warfarin Sodium 3 mg 12/13/18 18:00 12/13/18 18:55 Coumadin PO 3 mg 1800 JUAN MANUEL Administration Protocol - Patient Studies Lab Studies: Microbiology Studies 12/13/18 02:45 Blood Culture - Preliminary Blood-Venous NO GROWTH AFTER 24 HOURS 12/13/18 02:30 Blood Culture - Preliminary Blood-Venous NO GROWTH AFTER 24 HOURS Lab Studies 12/14/18 12/14/18 12/14/18 Range/Units 07:39 06:35 06:35 WBC (4.5-11.0) 10^3/uL RBC (3.5-6.1) 10^6/uL Hgb (12.0-16.0) g/dL Hct (36.0-48.0) % MCV (80.0-105.0) fl MCH (25.0-35.0) pg MCHC (31.0-37.0) g/dl RDW (11.5-14.5) % Plt Count (120.0-450.0) 10^3/uL MPV (7.0-11.0) fl Neut % (Auto) (50.0-68.0) % Lymph % (Auto) (22.0-35.0) % Blair % (Auto) (1.0-6.0) % Eos % (Auto) (1.5-5.0) % Baso % (Auto) (0.0-3.0) % Lymph # (Auto) (1.2-3.4) Blair # (Auto) (0.1-0.6) Eos # (Auto) (0.0-0.7) Baso # (Auto) (0.0-2.0) K/mm3 Absolute Neuts (auto) (1.4-6.5) PT 151.0 H (9.4-12.5) SECONDS INR 13.36 H* Sodium 138 (132-148) mmol/L Potassium 3.9 (3.6-5.0) mmol/L Chloride 101 (98-107) mmol/L Carbon Dioxide 24 (21-33) mmol/L Anion Gap 17 (10-20) BUN 22 H (7-21) mg/dL Creatinine 2.5 H (0.7-1.2) mg/dl Est GFR ( Amer) 23 Est GFR (Non-Af Amer) 19 POC Glucose (mg/dL) 207 H (65-110) mg/dL Random Glucose 194 H (70-110) mg/dL Calcium 8.1 L (8.4-10.5) mg/dL Phosphorus 4.2 (2.5-4.5) mg/dL Magnesium 1.8 (1.7-2.2) mg/dL Total Bilirubin 2.6 H (0.2-1.3) mg/dL AST 18 (14-36) U/L ALT 29 (7-56) U/L Alkaline Phosphatase 283 H (38-126) U/L Lactate Dehydrogenase (333-699) U/L Total Creatine Kinase (35-230) U/L Troponin I ng/mL Total Protein 5.1 L (5.8-8.3) g/dL Albumin 2.2 L (3.0-4.8) g/dL Globulin 2.9 gm/dL Albumin/Globulin Ratio 0.8 L (1.1-1.8) Cortisol AM Sample (4.46-22.7) ug/dL 12/14/18 12/13/18 12/13/18 Range/Units 06:35 23:35 21:50 WBC 9.7 D (4.5-11.0) 10^3/uL RBC 3.34 L (3.5-6.1) 10^6/uL Hgb 9.2 L (12.0-16.0) g/dL Hct 27.5 L (36.0-48.0) % MCV 82.3 (80.0-105.0) fl MCH 27.5 (25.0-35.0) pg MCHC 33.5 (31.0-37.0) g/dl RDW 19.7 H (11.5-14.5) % Plt Count 146 (120.0-450.0) 10^3/uL MPV 10.6 (7.0-11.0) fl Neut % (Auto) 81.9 H (50.0-68.0) % Lymph % (Auto) 12.1 L (22.0-35.0) % Blair % (Auto) 5.9 (1.0-6.0) % Eos % (Auto) 0.0 L (1.5-5.0) % Baso % (Auto) 0.1 (0.0-3.0) % Lymph # (Auto) 1.2 (1.2-3.4) Blair # (Auto) 0.6 (0.1-0.6) Eos # (Auto) 0.0 (0.0-0.7) Baso # (Auto) 0.01 (0.0-2.0) K/mm3 Absolute Neuts (auto) 7.94 H (1.4-6.5) PT (9.4-12.5) SECONDS INR Sodium 137 (132-148) mmol/L Potassium 4.2 (3.6-5.0) mmol/L Chloride 102 (98-107) mmol/L Carbon Dioxide 21 (21-33) mmol/L Anion Gap 18 (10-20) BUN 20 (7-21) mg/dL Creatinine 2.2 H (0.7-1.2) mg/dl Est GFR ( Amer) 26 Est GFR (Non-Af Amer) 22 POC Glucose (mg/dL) 196 H (65-110) mg/dL Random Glucose 196 H (70-110) mg/dL Calcium 7.9 L (8.4-10.5) mg/dL Phosphorus 3.8 (2.5-4.5) mg/dL Magnesium 1.9 (1.7-2.2) mg/dL Total Bilirubin 2.1 H (0.2-1.3) mg/dL AST 16 (14-36) U/L ALT 20 (7-56) U/L Alkaline Phosphatase 288 H (38-126) U/L Lactate Dehydrogenase 386 (333-699) U/L Total Creatine Kinase < 20 L (35-230) U/L Troponin I 0.08 D ng/mL Total Protein 5.0 L (5.8-8.3) g/dL Albumin 2.2 L (3.0-4.8) g/dL Globulin 2.9 gm/dL Albumin/Globulin Ratio 0.8 L (1.1-1.8) Cortisol AM Sample (4.46-22.7) ug/dL 12/13/18 12/13/18 12/13/18 Range/Units 17:02 11:34 05:30 WBC (4.5-11.0) 10^3/uL RBC (3.5-6.1) 10^6/uL Hgb (12.0-16.0) g/dL Hct (36.0-48.0) % MCV (80.0-105.0) fl MCH (25.0-35.0) pg MCHC (31.0-37.0) g/dl RDW (11.5-14.5) % Plt Count (120.0-450.0) 10^3/uL MPV (7.0-11.0) fl Neut % (Auto) (50.0-68.0) % Lymph % (Auto) (22.0-35.0) % Blair % (Auto) (1.0-6.0) % Eos % (Auto) (1.5-5.0) % Baso % (Auto) (0.0-3.0) % Lymph # (Auto) (1.2-3.4) Blair # (Auto) (0.1-0.6) Eos # (Auto) (0.0-0.7) Baso # (Auto) (0.0-2.0) K/mm3 Absolute Neuts (auto) (1.4-6.5) PT (9.4-12.5) SECONDS INR Sodium (132-148) mmol/L Potassium (3.6-5.0) mmol/L Chloride (98-107) mmol/L Carbon Dioxide (21-33) mmol/L Anion Gap (10-20) BUN (7-21) mg/dL Creatinine (0.7-1.2) mg/dl Est GFR ( Amer) Est GFR (Non-Af Amer) POC Glucose (mg/dL) 122 H 233 H (65-110) mg/dL Random Glucose (70-110) mg/dL Calcium (8.4-10.5) mg/dL Phosphorus (2.5-4.5) mg/dL Magnesium (1.7-2.2) mg/dL Total Bilirubin (0.2-1.3) mg/dL AST (14-36) U/L ALT (7-56) U/L Alkaline Phosphatase (38-126) U/L Lactate Dehydrogenase (333-699) U/L Total Creatine Kinase (35-230) U/L Troponin I ng/mL Total Protein (5.8-8.3) g/dL Albumin (3.0-4.8) g/dL Globulin gm/dL Albumin/Globulin Ratio (1.1-1.8) Cortisol AM Sample 30.5 H (4.46-22.7) ug/dL Laboratory Results - last 24 hr 12/13/18 12/13/18 12/13/18 05:30 11:34 17:02 WBC RBC Hgb Hct MCV MCH MCHC RDW Plt Count MPV Neut % (Auto) Lymph % (Auto) Blair % (Auto) Eos % (Auto) Baso % (Auto) Lymph # (Auto) Blair # (Auto) Eos # (Auto) Baso # (Auto) Absolute Neuts (auto) PT INR Sodium Potassium Chloride Carbon Dioxide Anion Gap BUN Creatinine Est GFR ( Amer) Est GFR (Non-Af Amer) POC Glucose (mg/dL) 233 H 122 H Random Glucose Calcium Phosphorus Magnesium Total Bilirubin AST ALT Alkaline Phosphatase Lactate Dehydrogenase Total Creatine Kinase Troponin I Total Protein Albumin Globulin Albumin/Globulin Ratio Cortisol AM Sample 30.5 H 12/13/18 12/13/18 12/14/18 21:50 23:35 06:35 WBC 9.7 D RBC 3.34 L Hgb 9.2 L Hct 27.5 L MCV 82.3 MCH 27.5 MCHC 33.5 RDW 19.7 H Plt Count 146 MPV 10.6 Neut % (Auto) 81.9 H Lymph % (Auto) 12.1 L Blair % (Auto) 5.9 Eos % (Auto) 0.0 L Baso % (Auto) 0.1 Lymph # (Auto) 1.2 Blair # (Auto) 0.6 Eos # (Auto) 0.0 Baso # (Auto) 0.01 Absolute Neuts (auto) 7.94 H PT INR Sodium 137 Potassium 4.2 Chloride 102 Carbon Dioxide 21 Anion Gap 18 BUN 20 Creatinine 2.2 H Est GFR ( Amer) 26 Est GFR (Non-Af Amer) 22 POC Glucose (mg/dL) 196 H Random Glucose 196 H Calcium 7.9 L Phosphorus 3.8 Magnesium 1.9 Total Bilirubin 2.1 H AST 16 ALT 20 Alkaline Phosphatase 288 H Lactate Dehydrogenase 386 Total Creatine Kinase < 20 L Troponin I 0.08 D Total Protein 5.0 L Albumin 2.2 L Globulin 2.9 Albumin/Globulin Ratio 0.8 L Cortisol AM Sample 12/14/18 12/14/18 12/14/18 06:35 06:35 07:39 WBC RBC Hgb Hct MCV MCH MCHC RDW Plt Count MPV Neut % (Auto) Lymph % (Auto) Blair % (Auto) Eos % (Auto) Baso % (Auto) Lymph # (Auto) Blair # (Auto) Eos # (Auto) Baso # (Auto) Absolute Neuts (auto) PT 151.0 H INR 13.36 H* Sodium 138 Potassium 3.9 Chloride 101 Carbon Dioxide 24 Anion Gap 17 BUN 22 H Creatinine 2.5 H Est GFR ( Amer) 23 Est GFR (Non-Af Amer) 19 POC Glucose (mg/dL) 207 H Random Glucose 194 H Calcium 8.1 L Phosphorus 4.2 Magnesium 1.8 Total Bilirubin 2.6 H AST 18 ALT 29 Alkaline Phosphatase 283 H Lactate Dehydrogenase Total Creatine Kinase Troponin I Total Protein 5.1 L Albumin 2.2 L Globulin 2.9 Albumin/Globulin Ratio 0.8 L Cortisol AM Sample Radiology Impressions: Radiology Impressions Chest X-Ray 12/13/18 00:00 IMPRESSION: No active disease. Fingerstick Blood Sugar Results: 196 Critical Care Progress Note - Nutrition Nutrition: Nutrition Category Date Time Status Renal Diet [DIET] Diets 12/14/18 Breakfast Ordered Assessment/Plan - Assessment and Plan (Free Text) Assessment: 73 yo F with PMH of A-fib, PNA, chronic leg edema, asthma, COPD, and chronic LE venous stasis admitted from [facility] for concern that patient was becoming hypotensive, with BP 70s/30s. It is unclear whether she was receiving home dose of midodrine at [facility]. She continued to require levophed overnight but is improved this AM. AFib is also improved from overnight s/p digoxin. Plan: Neuro: AA/o x 3, no focal neurologic deficit, moving all extremities spontaneously, able to protect airway Monitor neuro status Reorient as necessary Cardio: On last admission, patient was admitted with cardiogenic shock complicated by acute renal failure thought to be 2/2 to digoxin toxicity Patient noted to be in AFib since last night Received 1 x dose of digoxin with some improvement Case discussed with cardiology who agree with intermittent digoxin dosing PRN Supratherapeutic INR also noted Warfarin held until repeat INR confirms supratherapeutic levels, also repeat tomorrow AM Maintain MAP>65 Please insure patient compliance of midodrine 10 mg TID Monitor for S/Sx of HD compromise Cardiology following, all recs appreciated Pulm: Patient complains of intermittent SOB which is improved with duo-neb treatments May continue q6h juan manuel duo-neb treatments, pulmicort CXR this admission without concerning findings No active issues /Nephro: Renal function parameters improved from prior admission Patient had been receiving MWF dialysis at [facility], scheduled to continue TTS inpatient Unable to obtain accurate UOP as patient refused adams placement last admission, continues to refuse Nephrology following, all recs appreciated GI: Now tolerating regular diet well without nausea/vomiting Continue renal diet Endo: Random glucose: 194 Continue ISS - medium Maintain euglycemia Heme/Onc: Normocytic anemia noted, H/H also noted to be worsening since admission Suspect most likely 2/2 anemia of chronic renal disease Consider transfusion PRBCs if continues to trend downward ID: Afebrile, no leukocytosis Blood cx x 2, negative x 24 hrs F/u urine cx results DVT/GI PPX: Hold home warfarin for now given supratherapeutic INR/protonix Full Code Renal diet Stable, transfer to telemetry Patient seen, examined with, and plan discussed with my attending Dr. Sheila Qiu D.O. IM Resident PGY-1 Pager: [phone] <Gigi Sosa - Last Filed: 12/14/18 17:06> CCU Objective - Vital Signs / Intake & Output Vital Signs (Last 4 hours): Vital Signs Pulse Resp BP 12/14/18 16:10 121 H 20 12/14/18 16:09 116 H 27 H 12/14/18 16:08 124 H 16 12/14/18 16:07 127 H 20 12/14/18 16:06 124 H 14 12/14/18 16:05 129 H 12/14/18 16:04 107 H 14 12/14/18 16:03 104 H 14 12/14/18 16:02 109 H 21 12/14/18 16:01 104 H 23 12/14/18 16:00 125 H 17 12/14/18 15:59 112 H 28 H 12/14/18 15:58 128 H 22 12/14/18 15:57 117 H 18 12/14/18 15:56 118 H 14 12/14/18 15:55 113 H 22 12/14/18 15:54 117 H 15 12/14/18 15:53 111 H 18 12/14/18 15:52 116 H 20 12/14/18 15:51 128 H 22 12/14/18 15:50 118 H 24 12/14/18 15:49 120 H 20 12/14/18 15:48 109 H 17 12/14/18 15:47 120 H 23 12/14/18 15:46 118 H 12/14/18 15:45 104 H 23 12/14/18 15:44 114 H 24 12/14/18 15:43 122 H 22 12/14/18 15:42 116 H 14 12/14/18 15:41 111 H 15 12/14/18 15:40 112 H 12/14/18 15:39 115 H 23 12/14/18 15:38 100 H 17 12/14/18 15:37 113 H 15 12/14/18 15:36 114 H 12/14/18 15:35 109 H 19 12/14/18 15:34 110 H 16 12/14/18 15:33 128 H 17 12/14/18 15:32 116 H 13 12/14/18 15:31 114 H 14 12/14/18 15:30 98 H 18 12/14/18 15:29 111 H 17 12/14/18 15:28 116 H 36 H 12/14/18 15:27 112 H 14 12/14/18 15:26 123 H 22 12/14/18 15:25 104 H 14 12/14/18 15:24 116 H 13 12/14/18 15:23 121 H 18 12/14/18 15:22 124 H 12/14/18 15:21 116 H 17 12/14/18 15:00 108 H 15 12/14/18 14:59 126 H 19 12/14/18 14:58 112 H 18 12/14/18 14:57 120 H 18 12/14/18 14:56 122 H 19 12/14/18 14:55 107 H 13 12/14/18 14:54 111 H 13 12/14/18 14:53 123 H 12/14/18 14:52 128 H 16 12/14/18 14:51 116 H 15 12/14/18 14:50 115 H 18 12/14/18 14:49 115 H 20 12/14/18 14:48 123 H 19 12/14/18 14:47 104 H 10 L 12/14/18 14:46 114 H 13 12/14/18 14:45 107 H 16 12/14/18 14:44 117 H 17 12/14/18 14:43 117 H 18 12/14/18 14:42 113 H 20 12/14/18 14:41 108 H 19 12/14/18 14:40 123 H 17 12/14/18 14:39 126 H 17 12/14/18 14:38 115 H 30 H 12/14/18 14:37 133 H 16 12/14/18 14:36 118 H 23 12/14/18 14:35 117 H 16 12/14/18 14:34 128 H 15 12/14/18 14:33 118 H 17 12/14/18 14:32 117 H 15 12/14/18 14:31 120 H 19 12/14/18 14:30 119 H 15 12/14/18 14:29 117 H 17 12/14/18 14:28 121 H 16 12/14/18 14:27 123 H 23 12/14/18 14:26 125 H 15 12/14/18 14:25 109 H 44 H 12/14/18 14:24 106 H 23 12/14/18 14:23 142 H 19 12/14/18 14:22 162 H 15 12/14/18 14:21 118 H 16 12/14/18 14:20 112 H 15 12/14/18 14:19 129 H 32 H 12/14/18 14:18 106 H 33 H 12/14/18 14:17 125 H 16 12/14/18 14:16 136 H 16 12/14/18 14:15 119 H 21 12/14/18 14:14 115 H 33 H 12/14/18 14:13 112 H 12/14/18 14:12 135 H 12/14/18 14:11 119 H 18 12/14/18 14:02 115 H 24 12/14/18 14:01 117 H 17 12/14/18 14:00 121 H 23 12/14/18 13:59 100 H 22 12/14/18 13:58 111 H 13 12/14/18 13:57 125 H 17 12/14/18 13:56 136 H 26 H 12/14/18 13:55 134 H 21 12/14/18 13:54 112 H 18 12/14/18 13:53 113 H 18 12/14/18 13:52 108 H 16 12/14/18 13:51 125 H 14 12/14/18 13:50 126 H 14 12/14/18 13:49 114 H 13 12/14/18 13:48 112 H 15 12/14/18 13:47 132 H 15 12/14/18 13:46 107 H 14 12/14/18 13:45 104/39 L 12/14/18 13:44 125 H 14 12/14/18 13:43 108 H 14 12/14/18 13:42 114 H 21 12/14/18 13:41 116 H 13 12/14/18 13:40 110 H 21 12/14/18 13:39 113 H 14 12/14/18 13:38 115 H 13 12/14/18 13:37 116 H 14 12/14/18 13:36 121 H 53 H 12/14/18 13:35 123 H 15 12/14/18 13:34 117 H 16 12/14/18 13:33 125 H 11 L 12/14/18 13:32 121 H 26 H 12/14/18 13:31 94/49 L 12/14/18 13:30 131 H 29 H 12/14/18 13:29 98 H 12 12/14/18 13:28 120 H 18 12/14/18 13:27 111 H 10 L 12/14/18 13:26 129 H 16 12/14/18 13:25 116 H 16 12/14/18 13:24 117 H 21 12/14/18 13:23 109 H 14 12/14/18 13:22 103 H 17 12/14/18 13:21 122 H 12 12/14/18 13:20 117 H 12/14/18 13:19 118 H 19 12/14/18 13:18 118 H 12/14/18 13:17 113 H 12/14/18 13:16 120 H 21 12/14/18 13:15 115 H 22 12/14/18 13:14 118 H 12/14/18 13:13 107 H 15 12/14/18 13:02 108 H 21 90/40 L Intake and Output (Last 8hrs): Intake & Output 12/14/18 12/14/18 12/14/18 06:59 14:59 22:59 Intake Total 670 105 Balance 670 105 Intake: IV 620 105 Left Upper arm 270 Right Wrist 100 Oral 50 - Medications Active Medications: Active Medications Generic Name Dose Route Start Last Admin Trade Name Freq PRN Reason Stop Dose Admin Acetaminophen 650 mg 12/14/18 11:10 Tylenol 325mg Tab PO Q4H PRN Pain, moderate (4-7) Albumin Human 25 gm 12/13/18 11:21 Albumin Human 25% (12.5 Gm/50 Ml) IV TTS PRN Other Albuterol/Ipratropium 3 ml 12/13/18 06:00 12/14/18 13:22 Duoneb 3 Mg/0.5 Mg (3 Ml) Ud IH Not Given Q6 JUAN MANUEL Betamethasone/Clotrimazole 0 gm 12/13/18 10:00 12/14/18 10:13 Lotrisone TOP 1 applic BID JUAN MANUEL Administration Cyproheptadine HCl 4 mg 12/13/18 10:00 12/14/18 10:14 Periactin PO 4 mg DAILY JUAN MANUEL Administration Darbepoetin Siddhartha 100 mcg/ 150 mcg 12/13/18 15:00 Darbepoetin Siddhartha 50 mcg IVP QWK JUAN MANUEL Fludrocortisone Acetate 0.1 mg 12/13/18 14:15 12/14/18 09:15 Florinef PO Not Given DAILY JUAN MANUEL Fluticasone Propionate 1 actuation 12/13/18 10:00 12/14/18 10:29 Flonase NS 1 spr DAILY JUAN MANUEL Administration Hydrocortisone Sodium Succinate 50 mg 12/13/18 08:00 12/14/18 15:02 Solu-Cortef IVP 50 mg Q6 JUAN MANUEL Administration Dopamine HCl/Dextrose 400 mg in 250 mls @ 23.558 mls/hr 12/13/18 01:35 12/13/18 07:45 Dopamine 400mg/250ml D5w IV 0 mcg/kg/min .[id number] PRN 0 mls/hr TITRATE PER MD ORDER Titration Protocol 5 MCG/KG/MIN NOREPINEPHRINE BIT/0.9 % NACL 4 mg in 250 mls @ 15 mls/hr 12/13/18 05:20 12/14/18 12:30 Levophed 4 Mg/ 250 Ml Ns Premixed IV 4 mcg/min .[id number] PRN 15 mls/hr TITRATE PER MD ORDER Titration Protocol 4 MCG/MIN Meropenem/Sodium Chloride 500 mg in 50 mls @ 100 mls/hr 12/13/18 22:00 12/14/18 10:13 Merrem Iv 500 Mg/Ns 50 Ml IVPB 12/21/18 22:01 100 mls/hr Q12 JUAN MANUEL Administration Protocol Insulin Human Regular 0 units 12/13/18 11:30 12/14/18 12:52 Humulin R Med SC Not Given ACHS [facility] Protocol Levothyroxine Sodium 25 mcg 12/13/18 06:00 12/14/18 05:23 Synthroid PO 25 mcg 0600 JUAN MANUEL Administration Midodrine 10 mg 12/13/18 10:00 12/14/18 13:41 Proamatine PO Not Given TID JUAN MANUEL Mupirocin 30 gm 12/13/18 02:45 12/14/18 10:11 Bactroban Ointment EXT 1 applic BID JUAN MANUEL Administration Budesonide [ 1 puff 12/13/18 10:00 Pulmicort Flexhaler] IH 1 Puff (Home Med) QID JUAN MANUEL Pantoprazole Sodium 40 mg 12/13/18 06:00 12/14/18 05:23 Protonix Ec Tab PO 40 mg 0600 JUAN MANUEL Administration Silver Sulfadiazine 0 gm 12/14/18 09:30 12/14/18 10:14 Silvadene 1% 25 Gm TP 25 gm Q8H JUAN MANUEL Administration Warfarin Sodium 3 mg 12/13/18 18:00 12/13/18 18:55 Coumadin PO 3 mg 1800 JUAN MANUEL Administration Protocol - Patient Studies Lab Studies: Microbiology Studies 12/13/18 05:20 MRSA Culture (Admit) - Final Nose MRSA NOT DETECTED 12/13/18 02:45 Blood Culture - Preliminary Blood-Venous NO GROWTH AFTER 24 HOURS 12/13/18 02:30 Blood Culture - Preliminary Blood-Venous NO GROWTH AFTER 24 HOURS Lab Studies 12/14/18 12/14/18 12/14/18 Range/Units 12:35 11:12 07:39 WBC (4.5-11.0) 10^3/uL RBC (3.5-6.1) 10^6/uL Hgb (12.0-16.0) g/dL Hct (36.0-48.0) % MCV (80.0-105.0) fl MCH (25.0-35.0) pg MCHC (31.0-37.0) g/dl RDW (11.5-14.5) % Plt Count (120.0-450.0) 10^3/uL MPV (7.0-11.0) fl Neut % (Auto) (50.0-68.0) % Lymph % (Auto) (22.0-35.0) % Blair % (Auto) (1.0-6.0) % Eos % (Auto) (1.5-5.0) % Baso % (Auto) (0.0-3.0) % Lymph # (Auto) (1.2-3.4) Blair # (Auto) (0.1-0.6) Eos # (Auto) (0.0-0.7) Baso # (Auto) (0.0-2.0) K/mm3 Absolute Neuts (auto) (1.4-6.5) PT 196.7 H (9.4-12.5) SECONDS INR 17.72 H* Sodium (132-148) mmol/L Potassium (3.6-5.0) mmol/L Chloride (98-107) mmol/L Carbon Dioxide (21-33) mmol/L Anion Gap (10-20) BUN (7-21) mg/dL Creatinine (0.7-1.2) mg/dl Est GFR ( Amer) Est GFR (Non-Af Amer) POC Glucose (mg/dL) 224 H 207 H (65-110) mg/dL Random Glucose (70-110) mg/dL Calcium (8.4-10.5) mg/dL Phosphorus (2.5-4.5) mg/dL Magnesium (1.7-2.2) mg/dL Total Bilirubin (0.2-1.3) mg/dL AST (14-36) U/L ALT (7-56) U/L Alkaline Phosphatase (38-126) U/L Lactate Dehydrogenase (333-699) U/L Total Creatine Kinase (35-230) U/L Troponin I ng/mL Total Protein (5.8-8.3) g/dL Albumin (3.0-4.8) g/dL Globulin gm/dL Albumin/Globulin Ratio (1.1-1.8) 12/14/18 12/14/18 12/14/18 Range/Units 06:35 06:35 06:35 WBC 9.7 D (4.5-11.0) 10^3/uL RBC 3.34 L (3.5-6.1) 10^6/uL Hgb 9.2 L (12.0-16.0) g/dL Hct 27.5 L (36.0-48.0) % MCV 82.3 (80.0-105.0) fl MCH 27.5 (25.0-35.0) pg MCHC 33.5 (31.0-37.0) g/dl RDW 19.7 H (11.5-14.5) % Plt Count 146 (120.0-450.0) 10^3/uL MPV 10.6 (7.0-11.0) fl Neut % (Auto) 81.9 H (50.0-68.0) % Lymph % (Auto) 12.1 L (22.0-35.0) % Blair % (Auto) 5.9 (1.0-6.0) % Eos % (Auto) 0.0 L (1.5-5.0) % Baso % (Auto) 0.1 (0.0-3.0) % Lymph # (Auto) 1.2 (1.2-3.4) Blair # (Auto) 0.6 (0.1-0.6) Eos # (Auto) 0.0 (0.0-0.7) Baso # (Auto) 0.01 (0.0-2.0) K/mm3 Absolute Neuts (auto) 7.94 H (1.4-6.5) PT 151.0 H (9.4-12.5) SECONDS INR 13.36 H* Sodium 138 (132-148) mmol/L Potassium 3.9 (3.6-5.0) mmol/L Chloride 101 (98-107) mmol/L Carbon Dioxide 24 (21-33) mmol/L Anion Gap 17 (10-20) BUN 22 H (7-21) mg/dL Creatinine 2.5 H (0.7-1.2) mg/dl Est GFR ( Amer) 23 Est GFR (Non-Af Amer) 19 POC Glucose (mg/dL) (65-110) mg/dL Random Glucose 194 H (70-110) mg/dL Calcium 8.1 L (8.4-10.5) mg/dL Phosphorus 4.2 (2.5-4.5) mg/dL Magnesium 1.8 (1.7-2.2) mg/dL Total Bilirubin 2.6 H (0.2-1.3) mg/dL AST 18 (14-36) U/L ALT 29 (7-56) U/L Alkaline Phosphatase 283 H (38-126) U/L Lactate Dehydrogenase (333-699) U/L Total Creatine Kinase (35-230) U/L Troponin I ng/mL Total Protein 5.1 L (5.8-8.3) g/dL Albumin 2.2 L (3.0-4.8) g/dL Globulin 2.9 gm/dL Albumin/Globulin Ratio 0.8 L (1.1-1.8) 12/13/18 12/13/18 12/13/18 Range/Units 23:35 21:50 17:02 WBC (4.5-11.0) 10^3/uL RBC (3.5-6.1) 10^6/uL Hgb (12.0-16.0) g/dL Hct (36.0-48.0) % MCV (80.0-105.0) fl MCH (25.0-35.0) pg MCHC (31.0-37.0) g/dl RDW (11.5-14.5) % Plt Count (120.0-450.0) 10^3/uL MPV (7.0-11.0) fl Neut % (Auto) (50.0-68.0) % Lymph % (Auto) (22.0-35.0) % Blair % (Auto) (1.0-6.0) % Eos % (Auto) (1.5-5.0) % Baso % (Auto) (0.0-3.0) % Lymph # (Auto) (1.2-3.4) Blair # (Auto) (0.1-0.6) Eos # (Auto) (0.0-0.7) Baso # (Auto) (0.0-2.0) K/mm3 Absolute Neuts (auto) (1.4-6.5) PT (9.4-12.5) SECONDS INR Sodium 137 (132-148) mmol/L Potassium 4.2 (3.6-5.0) mmol/L Chloride 102 (98-107) mmol/L Carbon Dioxide 21 (21-33) mmol/L Anion Gap 18 (10-20) BUN 20 (7-21) mg/dL Creatinine 2.2 H (0.7-1.2) mg/dl Est GFR ( Amer) 26 Est GFR (Non-Af Amer) 22 POC Glucose (mg/dL) 196 H 122 H (65-110) mg/dL Random Glucose 196 H (70-110) mg/dL Calcium 7.9 L (8.4-10.5) mg/dL Phosphorus 3.8 (2.5-4.5) mg/dL Magnesium 1.9 (1.7-2.2) mg/dL Total Bilirubin 2.1 H (0.2-1.3) mg/dL AST 16 (14-36) U/L ALT 20 (7-56) U/L Alkaline Phosphatase 288 H (38-126) U/L Lactate Dehydrogenase 386 (333-699) U/L Total Creatine Kinase < 20 L (35-230) U/L Troponin I 0.08 D ng/mL Total Protein 5.0 L (5.8-8.3) g/dL Albumin 2.2 L (3.0-4.8) g/dL Globulin 2.9 gm/dL Albumin/Globulin Ratio 0.8 L (1.1-1.8) Laboratory Results - last 24 hr 12/13/18 12/13/18 12/13/18 17:02 21:50 23:35 WBC RBC Hgb Hct MCV MCH MCHC RDW Plt Count MPV Neut % (Auto) Lymph % (Auto) Blair % (Auto) Eos % (Auto) Baso % (Auto) Lymph # (Auto) Blair # (Auto) Eos # (Auto) Baso # (Auto) Absolute Neuts (auto) PT INR Sodium 137 Potassium 4.2 Chloride 102 Carbon Dioxide 21 Anion Gap 18 BUN 20 Creatinine 2.2 H Est GFR ( Amer) 26 Est GFR (Non-Af Amer) 22 POC Glucose (mg/dL) 122 H 196 H Random Glucose 196 H Calcium 7.9 L Phosphorus 3.8 Magnesium 1.9 Total Bilirubin 2.1 H AST 16 ALT 20 Alkaline Phosphatase 288 H Lactate Dehydrogenase 386 Total Creatine Kinase < 20 L Troponin I 0.08 D Total Protein 5.0 L Albumin 2.2 L Globulin 2.9 Albumin/Globulin Ratio 0.8 L 05/03/19 05/03/19 05/03/19 06:35 06:35 06:35 WBC 9.7 D RBC 3.34 L Hgb 9.2 L Hct 27.5 L MCV 82.3 MCH 27.5 MCHC 33.5 RDW 19.7 H Plt Count 146 MPV 10.6 Neut % (Auto) 81.9 H Lymph % (Auto) 12.1 L Blair % (Auto) 5.9 Eos % (Auto) 0.0 L Baso % (Auto) 0.1 Lymph # (Auto) 1.2 Blair # (Auto) 0.6 Eos # (Auto) 0.0 Baso # (Auto) 0.01 Absolute Neuts (auto) 7.94 H PT 151.0 H INR 13.36 H* Sodium 138 Potassium 3.9 Chloride 101 Carbon Dioxide 24 Anion Gap 17 BUN 22 H Creatinine 2.5 H Est GFR ( Amer) 23 Est GFR (Non-Af Amer) 19 POC Glucose (mg/dL) Random Glucose 194 H Calcium 8.1 L Phosphorus 4.2 Magnesium 1.8 Total Bilirubin 2.6 H AST 18 ALT 29 Alkaline Phosphatase 283 H Lactate Dehydrogenase Total Creatine Kinase Troponin I Total Protein 5.1 L Albumin 2.2 L Globulin 2.9 Albumin/Globulin Ratio 0.8 L 12/14/18 12/14/18 12/14/18 07:39 11:12 12:35 WBC RBC Hgb Hct MCV MCH MCHC RDW Plt Count MPV Neut % (Auto) Lymph % (Auto) Blair % (Auto) Eos % (Auto) Baso % (Auto) Lymph # (Auto) Blair # (Auto) Eos # (Auto) Baso # (Auto) Absolute Neuts (auto) PT 196.7 H INR 17.72 H* Sodium Potassium Chloride Carbon Dioxide Anion Gap BUN Creatinine Est GFR ( Amer) Est GFR (Non-Af Amer) POC Glucose (mg/dL) 207 H 224 H Random Glucose Calcium Phosphorus Magnesium Total Bilirubin AST ALT Alkaline Phosphatase Lactate Dehydrogenase Total Creatine Kinase Troponin I Total Protein Albumin Globulin Albumin/Globulin Ratio Critical Care Progress Note - Nutrition Nutrition: Nutrition Category Date Time Status Renal Diet [DIET] Diets 12/14/18 Breakfast Ordered Attending/Attestation - Attestation I have personally seen and examined this patient.: Yes I have fully participated in the care of the patient.: Yes I have reviewed all pertinent clinical information: Yes Notes (Text): 12/14/18 16:57 73 yo female with distributive shock in the setting of chronic critical illness, bed-bound, esrd on HD, afib with RVR. will proceed with IVF, NE, vasopressin (Marisela et al, NERIS 2018; [phone]) , stress dose steroids, abx, hr control, septic workup. will proceed with amiodarone for HR control. I would be careful with digoxin as it is not dialyzable and patient has ESRD. once BP stabilized, may use bb-ers (Walkey, et al, [id number]; 149(1);74-83 and Vesna et al, NERIS 2013). Overall prognosis is poor. DVT/GI prophylaxis ccm time 40 min
--- NOTE | 2018-12-14 09:39 | CARD ---
APPROVED REPORT Date of service: 12/13/2018 EKG Measurement Heart [id number] <Conclusion> Atrial fibrillation with rapid ventricular response with premature ventricular or aberrantly conducted complexes ST & T wave abnormality, consider anterolateral ischemia or digitalis effect Abnormal ECG
[2018-12-14] MEDS: Mupirocin 2% Ointment 15 GM TUBE EXT SCH ×2 (10:11→17:04)
[2018-12-14] MEDS: Clotrimazole/Betamethasone Cream(15 gm) TOP SCH ×2 (10:13→17:06)
[2018-12-14] MEDS: MEROPENEM 500 MG in NS 500 MG/50 ML BAG IVPB SCH ×2 (10:13→22:56)
[2018-12-14] MEDS: Silver Sulfadiazine 1% Cream (25 gm) TP SCH ×2 (10:14→17:06)
[2018-12-14] MEDS: Fluticasone Nasal 50 mcg/Spray NS SCH (10:29)
[2018-12-14 13:19] LABS: PROTHROMBIN TIME 196.7 SECONDS (9.4-12.5)
[2018-12-14 13:24] LABS: INR 17.72
--- NOTE | 2018-12-14 13:29 | CP.PCM.PN ---
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 nephrovite 1 tab daily. pt hasn't been tolerating dialysis. her BP remains low Maintain hemodynamics stable. Avoid hypotension. Patient not on ACEI/ARB due to recent CRIS and low BP. Albumin IV prn with HD for low BP. on midodrine 10 mg TID. will add florinef 0.1 mg/d. Monitor Input/Output, daily weights and renal function with basic metabolic panel dose of aransep weekly. PRBC as needed supplement lytes as needed Dose meds/antibiotics for reduced GFR. Avoid fleets enema/magnesium based laxatives. Avoid nephrotoxins/NSAIDs/ iodinated contrast (unless needed emergently) Glycemic control. Further work up/management as per primary team overall prognosis appears poor. suggest palliative care Thanks for allowing me to participate in care of your patient. Will follow patient with you. Please call if any Qs. had d/w team. 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 pt was transferred due to low BP. she feels better today and improves dizziness Denies OTC/herbal meds or NSAIDs No recent iodinated contrast exposure. ROS: noted overnight events overall not much interactive. feels sick. bedside Physical Examination: General Appearance: uncomfortable, in no acute respiratory distress, co-opera tive. morbidly obese ++ ill appearing debilitated Vitals reviewed and noted as below Head; Atraumatic, normocephalic ENT: no ulcers no thrush. Tongue is midline. Oropharynx: no rash or ulcers. EYES: Pupils are equal, round and reactive to light accommodation. Eye muscles and extraocular movement intact. Sclera is icteric. Neck; supple no lymphadenopathy, no thyromegaly or bruit Lungs: normal respiratory rate/effort. Breath sounds bilateral equal and clear anteriorly Heart: Incr rate. s1s2 normal. No rub or gallop. Extremities: 1+ pedal pitting edema. No varicose veins Neurological: Patient is awake oriented. No focal deficit. Strength bilateral appropriate and equal. Skin: Warm and dry. Normal turgor. No rash. Palpitation: Normal elasticity for age Abdomen: Abdomen is soft. Bowel sounds +. There is no abdominal tenderness, no guarding/rigidity no organomegaly Psych: limited insight and normal affect/mood MSK: no joint tenderness or swelling. Digits and nails normal, no deformity : kidney or bladder not palpable access: Rt PC Labs/imaging reviewed. Past medical history, past surgical history, family history, social history, allergy reviewed and noted as below Family hx: no hx of CKD. Rest non-contributory Echo; normal lvef, severe MR/TR/NM renal imaging: kidney cyst TSAT/Ferritin 12/356, SPEP/DILSHAD neg and normal FLC assay Vit D <12.8 PTH 286 urine alb/cr 126 mg/g Objective - Vital Signs/Intake and Output Vital Signs (last 24 hours): Temp Pulse Resp BP Pulse Ox 97.3 F L 108 H 21 90/40 L 100 12/14/18 12:00 12/14/18 13:02 12/14/18 13:02 12/14/18 13:02 12/14/18 06:40 Intake and Output: 12/14/18 12/14/18 06:59 18:59 Intake Total 820 100 Balance 820 100 - Medications Medications: Current Medications Acetaminophen (Tylenol 325mg Tab) 650 mg PO Q4H PRN PRN Reason: Pain, moderate (4-7) Albumin Human (Albumin Human 25% (12.5 Gm/50 Ml)) 25 gm IV TTS PRN PRN Reason: Other Albuterol/Ipratropium (Duoneb 3 Mg/0.5 Mg (3 Ml) Ud) 3 ml IH Q6 [facility] Last Admin: 12/14/18 13:22 Dose: Not Given Betamethasone/Clotrimazole (Lotrisone) 0 gm TOP BID [facility] Last Admin: 12/14/18 10:13 Dose: 1 applic Cyproheptadine HCl (Periactin) 4 mg PO DAILY [facility] Last Admin: 12/14/18 10:14 Dose: 4 mg Darbepoetin Siddhartha 100 mcg/ (Darbepoetin Siddhartha 50 mcg) 150 mcg IVP QWK [facility] Fludrocortisone Acetate (Florinef) 0.1 mg PO DAILY [facility] Last Admin: 12/13/18 18:49 Dose: Not Given Fluticasone Propionate (Flonase) 1 actuation NS DAILY [facility] Last Admin: 12/14/18 10:29 Dose: 1 spr Hydrocortisone Sodium Succinate (Solu-Cortef) 50 mg IVP Q6 [facility] Last Admin: 12/14/18 05:22 Dose: 50 mg Dopamine HCl/Dextrose (Dopamine 400mg/250ml D5w) 400 mg in 250 mls @ 23.558 mls/hr IV .[id number] PRN; Protocol PRN Reason: TITRATE PER MD ORDER Last Titration: 12/13/18 07:45 Dose: 0 mcg/kg/min, 0 mls/hr NOREPINEPHRINE BIT/0.9 % NACL (Levophed 4 Mg/ 250 Ml Ns Premixed) 4 mg in 250 mls @ 15 mls/hr IV .[id number] PRN; Protocol PRN Reason: TITRATE PER MD ORDER Last Titration: 12/14/18 12:03 Dose: 2 mcg/min, 7.5 mls/hr Meropenem/Sodium Chloride (Merrem Iv 500 Mg/Ns 50 Ml) 500 mg in 50 mls @ 100 mls/hr IVPB Q12 RONI; Protocol Stop: 12/21/18 22:01 Last Admin: 12/14/18 10:13 Dose: 100 mls/hr Insulin Human Regular (Humulin R Med) 0 units SC ACHS [facility]; Protocol Last Admin: 12/14/18 12:52 Dose: Not Given Levothyroxine Sodium (Synthroid) 25 mcg PO 0600 [facility] Last Admin: 12/14/18 05:23 Dose: 25 mcg Midodrine (Proamatine) 10 mg PO TID [facility] Last Admin: 12/13/18 18:54 Dose: 10 mg Mupirocin (Bactroban Ointment) 30 gm EXT BID [facility] Last Admin: 12/14/18 10:11 Dose: 1 applic Budesonide [ Pulmicort Flexhaler] 1 Puff (Home Med) 1 puff IH QID [facility] Pantoprazole Sodium (Protonix Ec Tab) 40 mg PO 0600 [facility] Last Admin: 12/14/18 05:23 Dose: 40 mg Silver Sulfadiazine (Silvadene 1% 25 Gm) 0 gm TP Q8H [facility] Last Admin: 12/14/18 10:14 Dose: 25 gm Warfarin Sodium (Coumadin) 3 mg PO 1800 [facility]; Protocol Last Admin: 12/13/18 18:55 Dose: 3 mg - Labs Labs: 12/14/18 06:35 12/14/18 06:35 PT 196.7 SECONDS (9.4-12.5) H 12/14/18 12:35 INR 17.72 H* 12/14/18 12:35 APTT 27.3 Seconds (26.9-38.3) 12/13/18 00:25
--- NOTE | 2018-12-14 13:34 | PCM.PCON ---
History of Present Illness - History of Present Illness History of Present Illness: Palliative consult requested by Dr Angel courtney Reason: Goals of care This is a 73 year old female with history of A-fib, ESRD on HD, PNA, COPD, chronic LE venous stasis who presented from [facility] with hypotension. She received her last dialysis on Monday w/o any complications. Patient denied dizziness, chest pain, palpitations, headache, N/V/D,sheerness of breath. PMHx:ESRD on HD o A-fib, PNA, chronic leg edema, asthma, COPD, chronic LE venous stasis PSHx: unspecified operation to b/l LE above ankle Social: Former smoker,no alcohol or drug use. Has spouse, Jorge Bowden Family History:unknown Advance Care Planning:The patient does not have an Advanced Directive Review of Systems: As per HPI, patient is altered, unable to obtain ROS Review of Systems - Review of Systems Systems not reviewed;Unavailable: Altered Mental Status Physical Exam - Constitutional Appears: Confused, Chronically Ill - Head Exam Head Exam: NORMOCEPHALIC - Eye Exam Eye Exam: Normal appearance, PERRL - ENT Exam ENT Exam: Mucous Membranes Moist - Respiratory Exam Respiratory Exam: Decreased Breath Sounds, NORMAL BREATHING PATTERN - Cardiovascular Exam Cardiovascular Exam: REGULAR RHYTHM, +S1, +S2 - GI/Abdominal Exam GI & Abdominal Exam: Distended, Normal Bowel Sounds, Soft - Neurological Exam Neurological exam: Altered - Psychiatric Exam Psychiatric exam: Anxious - Skin Skin Exam: Dry, Pallor, Warm - Additional Findings Additional findings: palliative performance scale rating 30% Palliative Care Assessment - Modified MRC Dyspnea Scale Modified MRC Dyspnea Scale: Too breathless to leave the house,or breathless dressing or undressing Grade: 5 - Pain Scale Pain Score: 2 Pain Scale Used: Turk-Mathews - Pain Location Pain Location Body Site: Back, Sacrum - Pain Description Pain Behavior: Moaning, Withdrawal from Touch, Restlessness Alleviating Factors/Management Techniques: Medication, Position Change, Distraction - Edwin Scale Sensory Perception: Very Limited Moisture: Very Moist Activity: Bedfast Mobility: Very Limited Nutrition: Probably Inadequate Friction & Shear: Problem Total Score - Skin Risk Assessment: 10 - Psychosocial Distress Patient screened for psychosocial distress: Yes Outcome: Referred to social media marketing analyst - Goals Treatment Goal(s): Alleviate symptoms, Improve quality of life End of life care discussed: Yes - Plan Interdisciplinary involved: qualified craft worker electrician, vendor relationship manager, Physician, Pastoral care Assessment & Plan - Assessment and Plan (Free Text) Assessment: 73 year old female history of morbid obesity, venous stasis, chronic lymphe jackie, Afib on Coumadin, ESRD on HD who is admitted with hypotension, sepis, AMS. Culture of right thigh > Coag negative D Tracie Patient is altered, restless. Patients , Jorge at bedside. Reviewed medical status, multiple comorbidities with him. Jorge verbalized that his is "just not doing well". I explained that her medical problems were extremely debilitating and that his 's health would continue to decline despite medical interventions. He stated that he devotes all his time and energy to helping his . Jorge stated he can not bear the thought of giving up on her. He admits that he is not taking care of himself or his health. I acknowledged his concerns. I expressed the importance of planning for both of their future needs. Advance care planning discussed. Benefits and burdens of CPR/intubation explained. I encouraged Jorge to consider initiating a directive in case he were not able to speak for his . Jorge admitted that he has a daughter in [place] whom he rarely sees but that she is coming this weekend. I strongly encouraged him to speak with his daughter about Caity's failing health and consider goals of care and advance care planning. Psychosocial support provided. Time spent in goals of care and advance care planning, 30 minutes Plan: Goals of care and advance care planning Cardiology recs reviewed, continue Coumadin Hypotension: Dobutamine, Levhophed. COPD; Michaelle Wasserman R Leg + Cag Tracie, blood culture, On [facility], [facility]
--- NOTE | 2018-12-14 14:27 | PN ---
DATE: 12/14/2018 CARDIOLOGY FOLLOWUP SUBJECTIVE: The patient was in rapid atrial fibrillation and was hypotensive yesterday. The rapid atrial fibrillation was exacerbated by higher doses of pressors. IV fluid was ordered and a dose of digoxin was given. Currently, the patient is awake with multiple complaints, but no dyspnea. PHYSICAL EXAMINATION VITAL SIGNS: Blood pressure is , heart rate is atrial fibrillation in the 80s. NECK: Negative JVD. LUNGS: Decreased breath sounds. EXTREMITIES: Chronic edema. LABORATORY DATA: Hemoglobin is 9.2. Chemistries, BUN and creatinine are 22 and 2.5. IMPRESSION 1. Wes dehydration with hypotension, improves with IV fluids. 2. End-stage renal disease. 3. Diabetes mellitus. 4. Atrial fibrillation. 5. Morbid obesity. 6. Chronic obstructive pulmonary disease. 7. Severe pulmonary hypertension. 8. Chronic edema. PLAN: Given these findings, the patient's hemodynamic seems better after some IV fluids. She is progressively deteriorating. Her prognosis is poor. Ryan Turk MD
--- NOTE | 2018-12-14 14:47 | PN ---
DATE: 12/14/2018 SUBJECTIVE: Seen in the intensive care unit. She is much less alert, more lethargic. She is still on the small hospital bed. We have to move her to the big girl bed. She is not answering my questions, although she seems depressed. Overall, not eating much at all. She is slowly declining. I met with her who takes very good care of her. I explained the poor prognosis of Mikael. She has been back and forth to the hospital too many times in a short period of time. She basically stopped eating. Her weight is down to 277. She was over 700 pounds 4 to 5 months ago. PHYSICAL EXAMINATION: VITAL SIGNS: She has a 98 temp, 97 pulse, she has 89/52 blood pressure, 14 respiratory rate, and 100% O2 sat on oxygen. HEENT: Head is atraumatic, normocephalic. Throat is dry. NECK: Supple. HEART: Regular rate. LUNGS: Decreased breath sounds. Poor respiration. ABDOMEN: Soft, obese. EXTREMITIES: Lymphedema. LABORATORY DATA: She has 138 sodium, potassium 3.9, BUN 22, creatinine 2.5, GFR is 19. Sugar 194, calcium is 8.1, phosphorus 4.2, magnesium 1.8, total bili is 2.6. AST is 18, ALT is 29, alk phos 283. Troponin I is 0.08. Total protein is 5.1. Her INR interestingly yesterday was 0.91, today is 13.36. She is not actively bleeding at all. We will check her INR tomorrow and make sure it is not a lab error and we will hold her Coumadin. WBC is 9.7, hemoglobin is 9.2, hematocrit 27.5, platelets 146. thinks that she is becoming short of breath. So, I called in Pulmonary although clinically, she looks the same to me. She has been seen by Cardio, Renal, Infectious Disease, felt cementer. I called in Pulmonary. She had septic shock, cardiogenic shock, metabolic acidosis, hypotension, . We will continue with the aggressive treatment and care. She is on Merrem IV, Solu-Cortef, Synthroid, Silvadene, Protonix, ProAmatine, Periactin, Lotrisone, Levophed, insulin, Florinef, Flonase, DuoNeb, dopamine, Coumadin, Pulmicort, Bactroban, darbepoetin and albumin. Continue aggressive treatment and care. The patient with multiple issues and problems. Alan Mann DO MTDVivien
--- NOTE | 2018-12-14 17:11 | PN ---
DATE: 12/14/2018 SUBJECTIVE: The patient is in bed, was seen in the ICU earlier this morning. No fevers, no chills. OBJECTIVE: VITAL SIGNS: Temperature is 98, blood pressure is 130/60, respiratory rate of 18, heart rate of 95. HEENT: Unremarkable. NECK: Supple. LUNGS: Have decreased breath sounds. HEART: Normal S1 and S2. ABDOMEN: Soft. LABORATORY EXAMINATION: Reveals a white count of 9.7, hemoglobin of 9, platelets of 146. Chemistries reveals a BUN of 20, creatinine of 2.2. Microbiology reveals the blood cultures are negative and naris on MRSA is not detected. REVIEW OF ORDERS: The patient is on meropenem, intermittent vancomycin and the patient's chest x-ray has no active disease. ASSESSMENT AND PLAN This is a 73-year-old female known from the previous admission with long history of chronic obstructive pulmonary disease, asthma, atrial fibrillation, congestive heart failure, diabetes mellitus, anemia, end-stage renal disease on hemodialysis from the longterm and found to have hypotensive and a week with septic shock versus cardiogenic shock versus hypovolemic shock with metabolic acidosis and some pending panculture results on meropenem. Intermittent vancomycin and appears to be improving. We will check on the final culture results and make further recommendations. Santy Fernandez MD
[2018-12-14] MEDS ORDERED: Amiodarone 360 mg/D5W 200 ml 360 MG/200 ML BAG IV SCH ×2 (17:15→23:48)
[2018-12-14] MEDS ORDERED: Vasopressin 20 UNITS in Dextrose 5% In Water 100 ML IV SCH (17:15)
[2018-12-14] MEDS: Silver Sulfadiazine 1% Cream (400 gm) TOP SCH (19:30)
[2018-12-15] MEDS: Albuterol-Ipratrop 3 mg / 0.5 (3 ml) UD IH SCH ×3 (02:00→13:52)
--- NOTE | 2018-12-15 02:51 | CP.PCM.PCO ---
<Wes Oliveira - Last Filed: 12/15/18 02:42> Addendum Addendum: Resident s iron worker note Resident paged regarding low labile blood pressure, and weak pulses. Initially, pulses were faint even with doppler. Patient is on Levophed and amiodarone peripherally through midline. She has double lumen dialysis catheter through tunneled right IJ. INR was noted to be supratherapeutic, and per Dr. Goodwin's recommendations, vitamin K was given earlier tonight but follow-up INR could not be drawn due to poor vascular access. Informed consent for a TLC was obtained from , and risks/benefits were explained. Rather than putting patient at high risk of bleeding, option to use dialysis catheter was questioned. Dr. Partida's answering service was reached, and they informed me that Dr. Fowler is s iron worker; I contacted Dr. Fowler and he stated that in absolute emergencies, the dialysis catheter may be used for vasopressor therapy. After aspirating the heparin, the INR was drawn through dialysis catheter, and vasopressin will be started through dialysis catheter. Process was explained to who remains bedside. Patient has strong radial pulses. Discussed with Dr. Alexander Oliveira PGY2 <Bouchra Munoz - Last Filed: 12/15/18 06:29> Attending/Attestation - Attestation I have personally seen and examined this patient.: Yes I have fully participated in the care of the patient.: Yes I have reviewed all pertinent clinical information: Yes
[2018-12-15] MEDS: Silver Sulfadiazine 1% Cream (400 gm) TOP SCH ×2 (03:02→15:24)
[2018-12-15 03:24] LABS: PARTIAL THROMBOPLASTIN TIME 116.9 Seconds (26.9-38.3)
[2018-12-15] MEDS: Pantoprazole 40 mg EC Tab PO SCH (06:11)
[2018-12-15] MEDS: Levothyroxine 25 MCG TAB PO SCH (06:12)
--- NOTE | 2018-12-15 06:19 | CP.PCM.PN ---
Subjective - Date & Time of Evaluation Date of Evaluation: 12/15/18 Time of Evaluation: 02:00 - Subjective Subjective: Called by Buck Swamper at 0200 because pt. has no access for Vasopressin. INR is 17.7. Pt. received vitamin K earlier. repeat PT/INR is pending. We reached out to Dr. Fowler from nephrology, who ok'd use of blue port of the HD catheter to infuse Vasopressin. Pt. is at her baseline of lethargy with palpable pulses. BP in 130's systolic. Will need Central line and A-line once INR improves, which is still pending as 618. Objective - Vital Signs/Intake and Output Vital Signs (last 24 hours): Temp Pulse Resp BP Pulse Ox 97.3 F L 102 H 21 85/39 L 82 L 12/14/18 12:00 12/15/18 05:30 12/15/18 05:30 12/14/18 18:02 12/15/18 05:30 Intake and Output: 12/14/18 12/15/18 18:59 06:59 Intake Total 217 Output Total 50 Balance 217 -50 - Medications Medications: Current Medications Acetaminophen (Tylenol 325mg Tab) 650 mg PO Q4H PRN PRN Reason: Pain, moderate (4-7) Albumin Human (Albumin Human 25% (12.5 Gm/50 Ml)) 25 gm IV TTS PRN PRN Reason: Other Albuterol/Ipratropium (Duoneb 3 Mg/0.5 Mg (3 Ml) Ud) 3 ml IH Q6 [facility] Last Admin: 12/15/18 02:00 Dose: Not Given Betamethasone/Clotrimazole (Lotrisone) 0 gm TOP BID [facility] Last Admin: 12/14/18 17:06 Dose: 1 applic Cyproheptadine HCl (Periactin) 4 mg PO DAILY [facility] Last Admin: 12/14/18 10:14 Dose: 4 mg Darbepoetin Siddhartha 100 mcg/ (Darbepoetin Siddhartha 50 mcg) 150 mcg IVP QWK [facility] Fludrocortisone Acetate (Florinef) 0.1 mg PO DAILY [facility] Last Admin: 12/14/18 09:15 Dose: Not Given Fluticasone Propionate (Flonase) 1 actuation NS DAILY [facility] Last Admin: 12/14/18 10:29 Dose: 1 spr Hydrocortisone Sodium Succinate (Solu-Cortef) 50 mg IVP Q6 [facility] Last Admin: 12/15/18 00:00 Dose: Not Given Dopamine HCl/Dextrose (Dopamine 400mg/250ml D5w) 400 mg in 250 mls @ 23.558 mls/hr IV .[id number] PRN; Protocol PRN Reason: TITRATE PER MD ORDER Last Titration: 12/13/18 07:45 Dose: 0 mcg/kg/min, 0 mls/hr NOREPINEPHRINE BIT/0.9 % NACL (Levophed 4 Mg/ 250 Ml Ns Premixed) 4 mg in 250 mls @ 15 mls/hr IV .[id number] PRN; Protocol PRN Reason: TITRATE PER MD ORDER Last Titration: 12/14/18 12:30 Dose: 4 mcg/min, 15 mls/hr Meropenem/Sodium Chloride (Merrem Iv 500 Mg/Ns 50 Ml) 500 mg in 50 mls @ 100 mls/hr IVPB Q12 [facility]; Protocol Stop: 12/21/18 22:01 Last Admin: 12/14/18 22:56 Dose: 100 mls/hr Vasopressin 20 units/ Dextrose 101 mls @ 9.09 mls/hr IV .[id number] [facility]; Protocol Amiodarone HCl/Dextrose (Nexterone 360 Mg In D5w 200 Ml (Premix)) 360 mg in 200 mls @ 16.667 mls/hr IV .Q12H [facility]; Protocol Insulin Human Regular (Humulin R Med) 0 units SC ACHS [facility]; Protocol Last Admin: 12/14/18 22:51 Dose: Not Given Levothyroxine Sodium (Synthroid) 25 mcg PO 0600 [facility] Last Admin: 12/15/18 06:12 Dose: Not Given Midodrine (Proamatine) 10 mg PO TID [facility] Last Admin: 12/14/18 17:06 Dose: Not Given Mupirocin (Bactroban Ointment) 30 gm EXT BID [facility] Last Admin: 12/14/18 17:04 Dose: 1 applic Budesonide [ Pulmicort Flexhaler] 1 Puff (Home Med) 1 puff IH QID [facility] Pantoprazole Sodium (Protonix Ec Tab) 40 mg PO 0600 [facility] Last Admin: 12/15/18 06:11 Dose: Not Given Silver Sulfadiazine (Silvadene 1%) 0 ea TOP Q8H [facility] Last Admin: 12/15/18 03:02 Dose: Not Given Warfarin Sodium (Coumadin) 3 mg PO 1800 [facility]; Protocol Last Admin: 12/13/18 18:55 Dose: 3 mg - Labs Labs: 12/14/18 06:35 12/14/18 06:35 PT 196.7 SECONDS (9.4-12.5) H 12/14/18 12:35 INR 17.72 H* 12/14/18 12:35 APTT 116.9 Seconds (26.9-38.3) H* 12/15/18 02:40
[2018-12-15 06:30] LABS: BASO # 0.03 K/mm3 (0.0-2.0); BASO % 0.2 % (0.0-3.0); LYMPH # 2.9 (1.2-3.4); LYMPH % 19.7 % (22.0-35.0); MEAN CELL VOLUME 89.9 fl (80.0-105.0); MEAN CORPUSCULAR HEMOGLOBIN 27.9 pg (25.0-35.0); MEAN CORPUSCULAR HGB CONC 31.1 g/dl (31.0-37.0); MEAN PLATELET VOLUME 11.2 fl (7.0-11.0); MONO # 0.8 (0.1-0.6); MONO % 5.5 % (1.0-6.0); RBC 2.47 10^6/uL (3.5-6.1); RED CELL DISTRIBUTION WIDTH 21.3 % (11.5-14.5); WHITE BLOOD COUNT 14.9 10^3/uL (4.5-11.0)
[2018-12-15 06:35] LABS: HEMOGLOBIN 6.9 g/dL (12.0-16.0)
[2018-12-15 06:45] LABS: ALB/GLOB RATIO 0.8 (1.1-1.8); ALBUMIN 1.9 g/dL (3.0-4.8)
[2018-12-15 06:58] LABS: PARTIAL THROMBOPLASTIN TIME 133.8 Seconds (26.9-38.3)
[2018-12-15] MEDS: Insulin Reg-MEDIUM-Coverage SC SCH ×2 (07:30→13:45)
[2018-12-15 07:32] LABS: PROTHROMBIN TIME > 320.0 SECONDS (9.4-12.5)
[2018-12-15 07:33] LABS: PROTHROMBIN TIME > 320.0 SECONDS (9.4-12.5)
[2018-12-15] MEDS ORDERED: Dextrose 50% SYRINGE Inj (50 ml) ONE ×3 (07:45→15:15)
[2018-12-15 07:50] LABS: INR > 20.00
[2018-12-15] MEDS ORDERED: Etomidate 20 mg/10ml Inj IV ONE (07:58)
[2018-12-15] MEDS ORDERED: Dextrose 5%/0.9% NS 1,000 ML IV SCH (08:15)
[2018-12-15] MEDS ORDERED: Sodium Bicarbonate 8.4% 150 MEQ in Dextrose 5% In Water 1,000 ML IV SCH (08:30)
[2018-12-15] MEDS ORDERED: EPINEPHrine- 1 MG in Sodium Chloride 0.9% 50 ML IV PRN (08:30)
[2018-12-15 09:30] LABS: ARTERIAL BLOOD GAS O2 SAT 100.3 % (95-98); ARTERIAL BLOOD GAS PCO2 13 mm/Hg (35-45); ARTERIAL BLOOD GAS TCO2 2.4 mmol.L (22-28)
[2018-12-15] MEDS ORDERED: Thiamine 100 mg/ml Inj IV SCH (10:00)
--- NOTE | 2018-12-15 10:13 | CP.CCUPN ---
<Homar Reddy - Last Filed: 12/15/18 12:06> CCU Subjective - Physician Review Events Since Last Encounter (Free Text): 12/15/18 10:10 pt has been intubated, started on a bicarb drip, and levophed Subjective (Free Text): 12/15/18 10:10 pt seen and examined this morning, pt intubated at this time CCU Objective - Vital Signs / Intake & Output Vital Signs (Last 4 hours): Vital Signs Pulse Resp BP Pulse Ox 12/15/18 09:20 74 100 12/15/18 09:10 67 98 12/15/18 09:02 68 205/84 H 100 12/15/18 09:00 67 100 12/15/18 08:50 82 100 12/15/18 08:40 81 100 12/15/18 08:30 56 L 100 12/15/18 08:20 68 21 93 L 12/15/18 08:10 66 17 100 12/15/18 08:00 63 20 95 12/15/18 07:50 71 25 H 85 L 12/15/18 07:40 78 18 94 L 12/15/18 07:30 79 16 93 L 12/15/18 07:20 80 25 H 92 L 12/15/18 07:10 82 16 94 L 12/15/18 07:00 85 17 93 L 12/15/18 06:50 85 17 89 L 12/15/18 06:40 88 17 92 L 12/15/18 06:30 91 H 16 91 L 12/15/18 06:20 91 H 17 90 L Intake and Output (Last 8hrs): Intake & Output 12/14/18 12/15/18 12/15/18 22:59 06:59 14:59 Intake Total 254 1929 Output Total 50 0 Balance 204 1929 Intake: IV 254 1124 Amiodarone 334 Levophed 112 750 Right Antecubital 0 Vasopressin 40 Oral 0 Tube Feeding 0 TPN/PPN 0 Blood Product 0 Lipid 0 Albumin 0 Other 805 Output: Urine 50 0 Urine, Voided 50 0 Stool 0 Urine/Stool Mix 0 Emesis 0 Oral Regurgitation 0 Other 0 Other: # Voids Urine, Voided 0 # Bowel Movements 0 - Physical Exam Head: Positive for: Atraumatic, Normocephalic Pupils: Positive for: PERRL Extroacular Muscles: Positive for: EOMI Conjunctiva: Positive for: Normal Ears: Positive for: Normal, NORMAL TM, Normal Canal. Negative for: Erythema, TM Bulging, Fluid, TM Perf Mouth: Positive for: Moist Mucous Membranes Pharnyx: Positive for: Normal. Negative for: ERYTHEMA, EXUDATE Nose (External): Positive for: Atraumatic Nose (Internal): Positive for: Normal Inspection Neck: Positive for: Normal Range of Motion Respiratory/Chest: Positive for: Clear to Auscultation, Other (intubated). Negative for: Accessory Muscle Use, Rales, Rhonchi Cardiovascular: Positive for: Normal S1, S2, Irregular Rhythm (Irregularly irregular rhythm, HR decreased s/p digoxin but persistently > 100), Tachycardic. Negative for: Murmurs, Rub, Gallop Abdomen: Positive for: Other (multiple open sores in intra-abdominal folds with surrounding erythema). Negative for: Tenderness, Distention, Peritoneal Signs Back: Positive for: Normal Inspection. Negative for: CVA Tenderness, Midline Tenderness, Paraspinal Tenderness Upper Extremity: Positive for: Normal Inspection. Negative for: Cyanosis, Edema Lower Extremity: Positive for: Edema (chronic bilateral lower leg lymphedema) Neurological: Positive for: Speech Normal Skin: Positive for: Warm, Dry, Normal Color. Negative for: Rashes Psychiatric: Positive for: Alert, Oriented x 3, Anxious - Medications Active Medications: Active Medications Generic Name Dose Route Start Last Admin Trade Name Freq PRN Reason Stop Dose Admin Acetaminophen 650 mg 12/14/18 11:10 Tylenol 325mg Tab PO Q4H PRN Pain, moderate (4-7) Albumin Human 25 gm 12/13/18 11:21 Albumin Human 25% (12.5 Gm/50 Ml) IV TTS PRN Other Albuterol/Ipratropium 3 ml 12/13/18 06:00 12/15/18 07:37 Duoneb 3 Mg/0.5 Mg (3 Ml) Ud IH Not Given Q6 RONI Betamethasone/Clotrimazole 0 gm 12/13/18 10:00 12/14/18 17:06 Lotrisone TOP 1 applic BID RONI Administration Cyproheptadine HCl 4 mg 12/13/18 10:00 12/14/18 10:14 Periactin PO 4 mg DAILY RONI Administration Darbepoetin Siddhartha 100 mcg/ 150 mcg 12/13/18 15:00 Darbepoetin Siddhartha 50 mcg IVP QWK RONI Fludrocortisone Acetate 0.1 mg 12/13/18 14:15 12/14/18 09:15 Florinef PO Not Given DAILY RONI Fluticasone Propionate 1 actuation 12/13/18 10:00 12/14/18 10:29 Flonase NS 1 spr DAILY RONI Administration Hydrocortisone Sodium Succinate 50 mg 12/13/18 08:00 12/15/18 06:20 Solu-Cortef IVP 50 mg Q6 RONI Administration NOREPINEPHRINE BIT/0.9 % NACL 4 mg in 250 mls @ 15 mls/hr 12/13/18 05:20 12/14/18 21:15 Levophed 4 Mg/ 250 Ml Ns Premixed IV 8 mcg/min .[id number] PRN 30 mls/hr TITRATE PER MD ORDER Titration Protocol 4 MCG/MIN Meropenem/Sodium Chloride 500 mg in 50 mls @ 100 mls/hr 12/13/18 22:00 12/14/18 22:56 Merrem Iv 500 Mg/Ns 50 Ml IVPB 12/21/18 22:01 100 mls/hr Q12 RONI Administration Protocol Vasopressin 20 units/ Dextrose 101 mls @ 9.09 mls/hr 12/14/18 17:15 12/15/18 02:40 IV 9.09 mls/hr .[id number] RONI Administration Protocol 0.03 U/MIN Amiodarone HCl/Dextrose 360 mg in 200 mls @ 16.667 mls/hr 12/14/18 23:48 12/14/18 23:48 Nexterone 360 Mg In D5w 200 Ml (Premix) IV 16.667 mls/hr .Q12H RONI Administration Protocol 0.5 MG/MIN Ascorbic Acid 1,500 mg/ Sodium 53 mls @ 53 mls/hr 12/15/18 08:15 12/15/18 09:53 Chloride IVPB 53 mls/hr Q6H RONI Administration Dextrose/Sodium Chloride 1,000 mls @ 200 mls/hr 12/15/18 08:15 Dextrose 5%/0.9% Ns 1000 Ml IV .Q5H RONI Thiamine HCl 200 mg/ Sodium 52 mls @ 104 mls/hr 12/15/18 10:00 12/15/18 09:54 Chloride IV 104 mls/hr BID RONI Administration Sodium Bicarbonate 150 meq/ 1,150 mls @ 200 mls/hr 12/15/18 08:30 12/15/18 09:47 Dextrose IV 200 mls/hr .[id number] RONI Administration Epinephrine HCl 1 mg/ Sodium 51 mls @ 3.06 mls/hr 12/15/18 08:30 Chloride IV .[id number] PRN TITRATE PER MD ORDER Protocol 1 MCG/MIN Insulin Human Regular 0 units 12/13/18 11:30 12/14/18 22:51 Humulin R Med SC Not Given ACHS [facility] Protocol Levothyroxine Sodium 25 mcg 12/13/18 06:00 12/15/18 06:12 Synthroid PO Not Given 0600 [facility] Midodrine 10 mg 12/13/18 10:00 12/14/18 17:06 Proamatine PO Not Given TID [facility] Mupirocin 30 gm 12/13/18 02:45 12/14/18 17:04 Bactroban Ointment EXT 1 applic BID [facility] Administration Budesonide [ 1 puff 12/13/18 10:00 Pulmicort Flexhaler] IH 1 Puff (Home Med) QID [facility] Pantoprazole Sodium 40 mg 12/13/18 06:00 12/15/18 06:11 Protonix Ec Tab PO Not Given 0600 [facility] Pantoprazole Sodium 40 mg 12/15/18 10:00 12/15/18 09:57 Protonix Inj IVP 40 mg Q12 [facility] Administration Silver Sulfadiazine 0 ea 12/14/18 19:02 12/15/18 03:02 Silvadene 1% TOP Not Given Q8H [facility] Warfarin Sodium 3 mg 12/13/18 18:00 12/13/18 18:55 Coumadin PO 3 mg 1800 RONI Administration Protocol - Patient Studies Lab Studies: Microbiology Studies 12/13/18 02:45 Blood Culture - Preliminary Blood-Venous NO GROWTH AFTER 48 HOURS 12/13/18 02:30 Blood Culture - Preliminary Blood-Venous NO GROWTH AFTER 48 HOURS 12/13/18 05:20 MRSA Culture (Admit) - Final Nose MRSA NOT DETECTED Lab Studies 12/15/18 12/15/18 12/15/18 Range/Units 09:00 08:12 07:40 WBC (4.5-11.0) 10^3/uL RBC (3.5-6.1) 10^6/uL Hgb (12.0-16.0) g/dL Hct (36.0-48.0) % MCV (80.0-105.0) fl MCH (25.0-35.0) pg MCHC (31.0-37.0) g/dl RDW (11.5-14.5) % Plt Count (120.0-450.0) 10^3/uL MPV (7.0-11.0) fl Neut % (Auto) (50.0-68.0) % Lymph % (Auto) (22.0-35.0) % Ellis % (Auto) (1.0-6.0) % Eos % (Auto) (1.5-5.0) % Baso % (Auto) (0.0-3.0) % Lymph # (Auto) (1.2-3.4) Ellis # (Auto) (0.1-0.6) Eos # (Auto) (0.0-0.7) Baso # (Auto) (0.0-2.0) K/mm3 Absolute Neuts (auto) (1.4-6.5) PT (9.4-12.5) SECONDS INR APTT (26.9-38.3) Seconds pCO2 13 L* (35-45) mm/Hg pO2 304.0 H (80-100) mm/Hg HCO3 2.0 L* (21-28) mmol/L ABG pH 6.80 L* (7.35-7.45) ABG Total CO2 2.4 L (22-28) mmol.L ABG O2 Saturation 100.3 H (95-98) % ABG Base Excess -31.6 L (-2.0-3.0) mmol/L ABG Potassium 5.0 (3.6-5.2) mmol/L Glucose 449 H* D (65-105) mg/dl Lactate 18.3 H* (0.7-2.1) mmol/L Mechanical Rate 25 FiO2 100.0 % Tidal Volume 350 PEEP 5 Crit Value Called To Sheila argueta Crit Value Called By Ct Blood Gas Notified Time 930 Sodium 137.0 (132-148) mmol/L Potassium (3.6-5.0) mmol/L Chloride 108.0 H (98-107) mmol/L Carbon Dioxide (21-33) mmol/L Anion Gap (10-20) BUN (7-21) mg/dL Creatinine (0.7-1.2) mg/dl Est GFR ( Amer) Est GFR (Non-Af Amer) POC Glucose (mg/dL) 30 L* < 20 L* (65-110) mg/dL Random Glucose (70-110) mg/dL Calcium (8.4-10.5) mg/dL Total Bilirubin (0.2-1.3) mg/dL AST (14-36) U/L ALT (7-56) U/L Alkaline Phosphatase (38-126) U/L Total Protein (5.8-8.3) g/dL Albumin (3.0-4.8) g/dL Globulin gm/dL Albumin/Globulin Ratio (1.1-1.8) Arterial Blood Potassium 5.0 (3.6-5.2) mmol/L Blood Type Antibody Screen Crossmatch BBK History Checked 12/15/18 12/15/18 12/15/18 Range/Units 07:15 06:15 06:15 WBC (4.5-11.0) 10^3/uL RBC (3.5-6.1) 10^6/uL Hgb (12.0-16.0) g/dL Hct (36.0-48.0) % MCV (80.0-105.0) fl MCH (25.0-35.0) pg MCHC (31.0-37.0) g/dl RDW (11.5-14.5) % Plt Count (120.0-450.0) 10^3/uL MPV (7.0-11.0) fl Neut % (Auto) (50.0-68.0) % Lymph % (Auto) (22.0-35.0) % Ellis % (Auto) (1.0-6.0) % Eos % (Auto) (1.5-5.0) % Baso % (Auto) (0.0-3.0) % Lymph # (Auto) (1.2-3.4) Ellis # (Auto) (0.1-0.6) Eos # (Auto) (0.0-0.7) Baso # (Auto) (0.0-2.0) K/mm3 Absolute Neuts (auto) (1.4-6.5) PT > 320.0 H (9.4-12.5) SECONDS INR > 20.00 H* APTT 133.8 H* (26.9-38.3) Seconds pCO2 (35-45) mm/Hg pO2 (80-100) mm/Hg HCO3 (21-28) mmol/L ABG pH (7.35-7.45) ABG Total CO2 (22-28) mmol.L ABG O2 Saturation (95-98) % ABG Base Excess (-2.0-3.0) mmol/L ABG Potassium (3.6-5.2) mmol/L Glucose (65-105) mg/dl Lactate (0.7-2.1) mmol/L Mechanical Rate FiO2 % Tidal Volume PEEP Crit Value Called To Crit Value Called By Blood Gas Notified Time Sodium 139 (132-148) mmol/L Potassium 5.7 H* D (3.6-5.0) mmol/L Chloride 105 (98-107) mmol/L Carbon Dioxide 6 L D (21-33) mmol/L Anion Gap 34 H (10-20) BUN 22 H (7-21) mg/dL Creatinine 3.6 H (0.7-1.2) mg/dl Est GFR ( Amer) 15 Est GFR (Non-Af Amer) 12 POC Glucose (mg/dL) (65-110) mg/dL Random Glucose 94 (70-110) mg/dL Calcium 9.0 (8.4-10.5) mg/dL Total Bilirubin 1.9 H (0.2-1.3) mg/dL AST 1092 H (14-36) U/L ALT 268 H (7-56) U/L Alkaline Phosphatase 209 H D (38-126) U/L Total Protein 4.3 L (5.8-8.3) g/dL Albumin 1.9 L (3.0-4.8) g/dL Globulin 2.5 gm/dL Albumin/Globulin Ratio 0.8 L (1.1-1.8) Arterial Blood Potassium (3.6-5.2) mmol/L Blood Type O POSITIVE Antibody Screen Negative Crossmatch See Detail BBK History Checked Patient has bt 12/15/18 12/15/18 12/14/18 Range/Units 06:15 02:40 21:36 WBC 14.9 H D (4.5-11.0) 10^3/uL RBC 2.47 L (3.5-6.1) 10^6/uL Hgb 6.9 L* D (12.0-16.0) g/dL Hct 22.2 L (36.0-48.0) % MCV 89.9 D (80.0-105.0) fl MCH 27.9 (25.0-35.0) pg MCHC 31.1 (31.0-37.0) g/dl RDW 21.3 H (11.5-14.5) % Plt Count 163 (120.0-450.0) 10^3/uL MPV 11.2 H (7.0-11.0) fl Neut % (Auto) 74.6 H (50.0-68.0) % Lymph % (Auto) 19.7 L (22.0-35.0) % Ellis % (Auto) 5.5 (1.0-6.0) % Eos % (Auto) 0.0 L (1.5-5.0) % Baso % (Auto) 0.2 (0.0-3.0) % Lymph # (Auto) 2.9 (1.2-3.4) Ellis # (Auto) 0.8 H (0.1-0.6) Eos # (Auto) 0.0 (0.0-0.7) Baso # (Auto) 0.03 (0.0-2.0) K/mm3 Absolute Neuts (auto) 11.12 H (1.4-6.5) PT > 320.0 H (9.4-12.5) SECONDS INR TNP APTT 116.9 H* (26.9-38.3) Seconds pCO2 (35-45) mm/Hg pO2 (80-100) mm/Hg HCO3 (21-28) mmol/L ABG pH (7.35-7.45) ABG Total CO2 (22-28) mmol.L ABG O2 Saturation (95-98) % ABG Base Excess (-2.0-3.0) mmol/L ABG Potassium (3.6-5.2) mmol/L Glucose (65-105) mg/dl Lactate (0.7-2.1) mmol/L Mechanical Rate FiO2 % Tidal Volume PEEP Crit Value Called To Crit Value Called By Blood Gas Notified Time Sodium (132-148) mmol/L Potassium (3.6-5.0) mmol/L Chloride (98-107) mmol/L Carbon Dioxide (21-33) mmol/L Anion Gap (10-20) BUN (7-21) mg/dL Creatinine (0.7-1.2) mg/dl Est GFR ( Amer) Est GFR (Non-Af Amer) POC Glucose (mg/dL) 91 (65-110) mg/dL Random Glucose (70-110) mg/dL Calcium (8.4-10.5) mg/dL Total Bilirubin (0.2-1.3) mg/dL AST (14-36) U/L ALT (7-56) U/L Alkaline Phosphatase (38-126) U/L Total Protein (5.8-8.3) g/dL Albumin (3.0-4.8) g/dL Globulin gm/dL Albumin/Globulin Ratio (1.1-1.8) Arterial Blood Potassium (3.6-5.2) mmol/L Blood Type Antibody Screen Crossmatch BBK History Checked 12/14/18 12/14/18 12/14/18 Range/Units 15:57 12:35 11:12 WBC (4.5-11.0) 10^3/uL RBC (3.5-6.1) 10^6/uL Hgb (12.0-16.0) g/dL Hct (36.0-48.0) % MCV (80.0-105.0) fl MCH (25.0-35.0) pg MCHC (31.0-37.0) g/dl RDW (11.5-14.5) % Plt Count (120.0-450.0) 10^3/uL MPV (7.0-11.0) fl Neut % (Auto) (50.0-68.0) % Lymph % (Auto) (22.0-35.0) % Ellis % (Auto) (1.0-6.0) % Eos % (Auto) (1.5-5.0) % Baso % (Auto) (0.0-3.0) % Lymph # (Auto) (1.2-3.4) Ellis # (Auto) (0.1-0.6) Eos # (Auto) (0.0-0.7) Baso # (Auto) (0.0-2.0) K/mm3 Absolute Neuts (auto) (1.4-6.5) PT 196.7 H (9.4-12.5) SECONDS INR 17.72 H* APTT (26.9-38.3) Seconds pCO2 (35-45) mm/Hg pO2 (80-100) mm/Hg HCO3 (21-28) mmol/L ABG pH (7.35-7.45) ABG Total CO2 (22-28) mmol.L ABG O2 Saturation (95-98) % ABG Base Excess (-2.0-3.0) mmol/L ABG Potassium (3.6-5.2) mmol/L Glucose (65-105) mg/dl Lactate (0.7-2.1) mmol/L Mechanical Rate FiO2 % Tidal Volume PEEP Crit Value Called To Crit Value Called By Blood Gas Notified Time Sodium (132-148) mmol/L Potassium (3.6-5.0) mmol/L Chloride (98-107) mmol/L Carbon Dioxide (21-33) mmol/L Anion Gap (10-20) BUN (7-21) mg/dL Creatinine (0.7-1.2) mg/dl Est GFR ( Amer) Est GFR (Non-Af Amer) POC Glucose (mg/dL) 192 H 224 H (65-110) mg/dL Random Glucose (70-110) mg/dL Calcium (8.4-10.5) mg/dL Total Bilirubin (0.2-1.3) mg/dL AST (14-36) U/L ALT (7-56) U/L Alkaline Phosphatase (38-126) U/L Total Protein (5.8-8.3) g/dL Albumin (3.0-4.8) g/dL Globulin gm/dL Albumin/Globulin Ratio (1.1-1.8) Arterial Blood Potassium (3.6-5.2) mmol/L Blood Type Antibody Screen Crossmatch BBK History Checked Laboratory Results - last 24 hr 12/14/18 12/14/18 12/14/18 11:12 12:35 15:57 WBC RBC Hgb Hct MCV MCH MCHC RDW Plt Count MPV Neut % (Auto) Lymph % (Auto) Ellis % (Auto) Eos % (Auto) Baso % (Auto) Lymph # (Auto) Ellis # (Auto) Eos # (Auto) Baso # (Auto) Absolute Neuts (auto) PT 196.7 H INR 17.72 H* APTT pCO2 pO2 HCO3 ABG pH ABG Total CO2 ABG O2 Saturation ABG Base Excess ABG Potassium Glucose Lactate Mechanical Rate FiO2 Tidal Volume PEEP Crit Value Called To Crit Value Called By Blood Gas Notified Time Sodium Potassium Chloride Carbon Dioxide Anion Gap BUN Creatinine Est GFR ( Amer) Est GFR (Non-Af Amer) POC Glucose (mg/dL) 224 H 192 H Random Glucose Calcium Total Bilirubin AST ALT Alkaline Phosphatase Total Protein Albumin Globulin Albumin/Globulin Ratio Arterial Blood Potassium Blood Type Antibody Screen Crossmatch BBK History Checked 12/14/18 12/15/18 12/15/18 21:36 02:40 06:15 WBC 14.9 H D RBC 2.47 L Hgb 6.9 L* D Hct 22.2 L MCV 89.9 D MCH 27.9 MCHC 31.1 RDW 21.3 H Plt Count 163 MPV 11.2 H Neut % (Auto) 74.6 H Lymph % (Auto) 19.7 L Ellis % (Auto) 5.5 Eos % (Auto) 0.0 L Baso % (Auto) 0.2 Lymph # (Auto) 2.9 Ellis # (Auto) 0.8 H Eos # (Auto) 0.0 Baso # (Auto) 0.03 Absolute Neuts (auto) 11.12 H PT > 320.0 H INR TNP APTT 116.9 H* pCO2 pO2 HCO3 ABG pH ABG Total CO2 ABG O2 Saturation ABG Base Excess ABG Potassium Glucose Lactate Mechanical Rate FiO2 Tidal Volume PEEP Crit Value Called To Crit Value Called By Blood Gas Notified Time Sodium Potassium Chloride Carbon Dioxide Anion Gap BUN Creatinine Est GFR ( Amer) Est GFR (Non-Af Amer) POC Glucose (mg/dL) 91 Random Glucose Calcium Total Bilirubin AST ALT Alkaline Phosphatase Total Protein Albumin Globulin Albumin/Globulin Ratio Arterial Blood Potassium Blood Type Antibody Screen Crossmatch BBK History Checked 12/15/18 12/15/18 12/15/18 06:15 06:15 07:15 WBC RBC Hgb Hct MCV MCH MCHC RDW Plt Count MPV Neut % (Auto) Lymph % (Auto) Ellis % (Auto) Eos % (Auto) Baso % (Auto) Lymph # (Auto) Ellis # (Auto) Eos # (Auto) Baso # (Auto) Absolute Neuts (auto) PT > 320.0 H INR > 20.00 H* APTT 133.8 H* pCO2 pO2 HCO3 ABG pH ABG Total CO2 ABG O2 Saturation ABG Base Excess ABG Potassium Glucose Lactate Mechanical Rate FiO2 Tidal Volume PEEP Crit Value Called To Crit Value Called By Blood Gas Notified Time Sodium 139 Potassium 5.7 H* D Chloride 105 Carbon Dioxide 6 L D Anion Gap 34 H BUN 22 H Creatinine 3.6 H Est GFR ( Amer) 15 Est GFR (Non-Af Amer) 12 POC Glucose (mg/dL) Random Glucose 94 Calcium 9.0 Total Bilirubin 1.9 H AST 1092 H ALT 268 H Alkaline Phosphatase 209 H D Total Protein 4.3 L Albumin 1.9 L Globulin 2.5 Albumin/Globulin Ratio 0.8 L Arterial Blood Potassium Blood Type O POSITIVE Antibody Screen Negative Crossmatch See Detail BBK History Checked Patient has bt 12/15/18 12/15/18 12/15/18 07:40 08:12 09:00 WBC RBC Hgb Hct MCV MCH MCHC RDW Plt Count MPV Neut % (Auto) Lymph % (Auto) Ellis % (Auto) Eos % (Auto) Baso % (Auto) Lymph # (Auto) Ellis # (Auto) Eos # (Auto) Baso # (Auto) Absolute Neuts (auto) PT INR APTT pCO2 13 L* pO2 304.0 H HCO3 2.0 L* ABG pH 6.80 L* ABG Total CO2 2.4 L ABG O2 Saturation 100.3 H ABG Base Excess -31.6 L ABG Potassium 5.0 Glucose 449 H* D Lactate 18.3 H* Mechanical Rate 25 FiO2 100.0 Tidal Volume 350 PEEP 5 Crit Value Called To Sheila argueta Crit Value Called By Ct Blood Gas Notified Time 930 Sodium 137.0 Potassium Chloride 108.0 H Carbon Dioxide Anion Gap BUN Creatinine Est GFR ( Amer) Est GFR (Non-Af Amer) POC Glucose (mg/dL) < 20 L* 30 L* Random Glucose Calcium Total Bilirubin AST ALT Alkaline Phosphatase Total Protein Albumin Globulin Albumin/Globulin Ratio Arterial Blood Potassium 5.0 Blood Type Antibody Screen Crossmatch BBK History Checked Fingerstick Blood Sugar Results: 91 Critical Care Progress Note - Nutrition Nutrition: Nutrition Category Date Time Status Renal Diet [DIET] Diets 12/14/18 Breakfast Ordered Assessment/Plan - Assessment and Plan (Free Text) Assessment: Pt is a 73 yo female with PMH of Afib, PNA, chronic leg edema, asthma, COPD, and chronic LE venous stasis admitted from [facility] for concern that patient was becoming hypotensive, with BP 70s/30s. Plan: Neuro - intubated today - Monitor neuro status Cardio - On last admission, patient was admitted with cardiogenic shock complicated by acute renal failure thought to be 2/2 to digoxin toxicity - INR >20 - Maintain MAP>65 - continue midodrine - Cardiology consulted, all recs appreciated Pulm - pt intubated today - SOB, duo-neb treatments - pulmicort /Nephro - pt has been undergoing dialysis MWF at [facility] - Nephrology consulted, all recs appreciated GI - Continue renal diet Endo - ISS - Maintain euglycemia Heme/Onc - Hgb 6.9, transfuse 1 unit pRBC ID - blood cultures negative Pt seen, examined, assessment and plan discussed with Dr Sheila Reddy PGY1 - Date & Time Date: 12/15/18 Time: 10:18 <Gigi Sosa - Last Filed: 12/15/18 16:48> CCU Objective - Vital Signs / Intake & Output Vital Signs (Last 4 hours): Vital Signs Pulse BP Pulse Ox 12/15/18 13:38 62 12/15/18 13:37 62 12/15/18 13:36 62 12/15/18 13:35 63 12/15/18 13:33 63 12/15/18 13:32 63 12/15/18 13:30 62 12/15/18 13:29 63 12/15/18 13:28 62 12/15/18 13:27 62 12/15/18 13:26 63 12/15/18 13:25 64 12/15/18 13:22 64 12/15/18 13:20 62 97 12/15/18 13:17 66 12/15/18 13:16 67 12/15/18 13:13 69 12/15/18 13:10 70 92 L 12/15/18 13:09 70 12/15/18 13:00 79 90 L 12/15/18 12:53 94 H 12/15/18 12:50 76 92/48 L 90 L Intake and Output (Last 8hrs): Intake & Output 12/15/18 12/15/18 12/15/18 06:59 14:59 22:59 Intake Total 1929 Output Total 0 Balance 1929 Intake: IV 1124 Amiodarone 334 Levophed 750 Right Antecubital 0 Vasopressin 40 Oral 0 Tube Feeding 0 TPN/PPN 0 Blood Product 0 Lipid 0 Albumin 0 Other 805 Output: Urine 0 Urine, Voided 0 Stool 0 Urine/Stool Mix 0 Emesis 0 Oral Regurgitation 0 Other 0 Other: # Voids Urine, Voided 0 # Bowel Movements 0 - Medications Active Medications: Active Medications Generic Name Dose Route Start Last Admin Trade Name Freq PRN Reason Stop Dose Admin Acetaminophen 650 mg 12/14/18 11:10 Tylenol 325mg Tab PO Q4H PRN Pain, moderate (4-7) Albumin Human 25 gm 12/13/18 11:21 Albumin Human 25% (12.5 Gm/50 Ml) IV TTS PRN Other Albuterol/Ipratropium 3 ml 12/13/18 06:00 12/15/18 13:52 Duoneb 3 Mg/0.5 Mg (3 Ml) Ud IH Not Given Q6 RONI Betamethasone/Clotrimazole 0 gm 12/13/18 10:00 12/15/18 13:51 Lotrisone TOP Not Given BID RONI Cyproheptadine HCl 4 mg 12/13/18 10:00 12/15/18 11:15 Periactin PO Not Given DAILY RONI Darbepoetin Siddhartha 100 mcg/ 150 mcg 12/13/18 15:00 Darbepoetin Siddhartha 50 mcg IVP QWK RONI Fludrocortisone Acetate 0.1 mg 12/13/18 14:15 12/15/18 11:14 Florinef PO Not Given DAILY RONI Fluticasone Propionate 1 actuation 12/13/18 10:00 12/15/18 11:14 Flonase NS Not Given DAILY RONI Hydrocortisone Sodium Succinate 50 mg 12/13/18 08:00 12/15/18 11:16 Solu-Cortef IVP 50 mg Q6 RONI Administration NOREPINEPHRINE BIT/0.9 % NACL 4 mg in 250 mls @ 15 mls/hr 12/13/18 05:20 12/14/18 21:15 Levophed 4 Mg/ 250 Ml Ns Premixed IV 8 mcg/min .[id number] PRN 30 mls/hr TITRATE PER MD ORDER Titration Protocol 4 MCG/MIN Meropenem/Sodium Chloride 500 mg in 50 mls @ 100 mls/hr 12/13/18 22:00 12/15/18 11:13 Merrem Iv 500 Mg/Ns 50 Ml IVPB 12/21/18 22:01 100 mls/hr Q12 [facility] Administration Protocol Ascorbic Acid 1,500 mg/ Sodium 53 mls @ 53 mls/hr 12/15/18 08:15 12/15/18 13:44 Chloride IVPB 53 mls/hr Q6H [facility] Administration Dextrose/Sodium Chloride 1,000 mls @ 200 mls/hr 12/15/18 08:15 Dextrose 5%/0.9% Ns 1000 Ml IV .Q5H [facility] Thiamine HCl 200 mg/ Sodium 52 mls @ 104 mls/hr 12/15/18 10:00 12/15/18 09:54 Chloride IV 104 mls/hr BID [facility] Administration Sodium Bicarbonate 150 meq/ 1,150 mls @ 200 mls/hr 12/15/18 08:30 12/15/18 09:47 Dextrose IV 200 mls/hr .[id number] [facility] Administration Epinephrine HCl 1 mg/ Sodium 51 mls @ 3.06 mls/hr 12/15/18 08:30 12/15/18 13:44 Chloride IV 2 mcg/min .[id number] PRN 6.12 mls/hr TITRATE PER MD ORDER Administration Protocol 1 MCG/MIN Vasopressin 20 units/ Sodium 101 mls @ 9.09 mls/hr 12/15/18 12:43 Chloride IV .[id number] [facility] Protocol 0.03 U/MIN Insulin Human Regular 0 units 12/13/18 11:30 12/15/18 13:45 Humulin R Med SC Not Given ACHS [facility] Protocol Levothyroxine Sodium 25 mcg 12/13/18 06:00 12/15/18 06:12 Synthroid PO Not Given 0600 [facility] Midodrine 10 mg 12/13/18 10:00 12/15/18 15:24 Proamatine PO Not Given TID [facility] Mupirocin 30 gm 12/13/18 02:45 12/15/18 13:51 Bactroban Ointment EXT Not Given BID [facility] Budesonide [ 1 puff 12/13/18 10:00 Pulmicort Flexhaler] IH 1 Puff (Home Med) QID [facility] Pantoprazole Sodium 40 mg 12/13/18 06:00 12/15/18 06:11 Protonix Ec Tab PO Not Given 0600 [facility] Pantoprazole Sodium 40 mg 12/15/18 10:00 12/15/18 09:57 Protonix Inj IVP 40 mg Q12 [facility] Administration Silver Sulfadiazine 0 ea 12/14/18 19:02 12/15/18 15:24 Silvadene 1% TOP Not Given Q8H [facility] Warfarin Sodium 3 mg 12/13/18 18:00 12/13/18 18:55 Coumadin PO 3 mg 1800 [facility] Administration Protocol - Patient Studies Lab Studies: Microbiology Studies 12/13/18 02:45 Blood Culture - Preliminary Blood-Venous NO GROWTH AFTER 48 HOURS 12/13/18 02:30 Blood Culture - Preliminary Blood-Venous NO GROWTH AFTER 48 HOURS Lab Studies 12/15/18 12/15/18 12/15/18 Range/Units 14:59 12:48 10:56 WBC (4.5-11.0) 10^3/uL RBC (3.5-6.1) 10^6/uL Hgb (12.0-16.0) g/dL Hct (36.0-48.0) % MCV (80.0-105.0) fl MCH (25.0-35.0) pg MCHC (31.0-37.0) g/dl RDW (11.5-14.5) % Plt Count (120.0-450.0) 10^3/uL MPV (7.0-11.0) fl Neut % (Auto) (50.0-68.0) % Lymph % (Auto) (22.0-35.0) % Ellis % (Auto) (1.0-6.0) % Eos % (Auto) (1.5-5.0) % Baso % (Auto) (0.0-3.0) % Lymph # (Auto) (1.2-3.4) Ellis # (Auto) (0.1-0.6) Eos # (Auto) (0.0-0.7) Baso # (Auto) (0.0-2.0) K/mm3 Absolute Neuts (auto) (1.4-6.5) PT (9.4-12.5) SECONDS INR APTT (26.9-38.3) Seconds pCO2 (35-45) mm/Hg pO2 (80-100) mm/Hg HCO3 (21-28) mmol/L ABG pH (7.35-7.45) ABG Total CO2 (22-28) mmol.L ABG O2 Saturation (95-98) % ABG Base Excess (-2.0-3.0) mmol/L ABG Potassium (3.6-5.2) mmol/L Glucose (65-105) mg/dl Lactate (0.7-2.1) mmol/L Mechanical Rate FiO2 % Tidal Volume PEEP Crit Value Called To Crit Value Called By Blood Gas Notified Time Sodium (132-148) mmol/L Potassium (3.6-5.0) mmol/L Chloride (98-107) mmol/L Carbon Dioxide (21-33) mmol/L Anion Gap (10-20) BUN (7-21) mg/dL Creatinine (0.7-1.2) mg/dl Est GFR ( Amer) Est GFR (Non-Af Amer) POC Glucose (mg/dL) 55 L 38 L* 75 (65-110) mg/dL Random Glucose (70-110) mg/dL Calcium (8.4-10.5) mg/dL Total Bilirubin (0.2-1.3) mg/dL AST (14-36) U/L ALT (7-56) U/L Alkaline Phosphatase (38-126) U/L Total Protein (5.8-8.3) g/dL Albumin (3.0-4.8) g/dL Globulin gm/dL Albumin/Globulin Ratio (1.1-1.8) Arterial Blood Potassium (3.6-5.2) mmol/L Blood Type Antibody Screen Crossmatch BBK History Checked 12/15/18 12/15/18 12/15/18 Range/Units 09:15 09:00 08:12 WBC (4.5-11.0) 10^3/uL RBC (3.5-6.1) 10^6/uL Hgb (12.0-16.0) g/dL Hct (36.0-48.0) % MCV (80.0-105.0) fl MCH (25.0-35.0) pg MCHC (31.0-37.0) g/dl RDW (11.5-14.5) % Plt Count (120.0-450.0) 10^3/uL MPV (7.0-11.0) fl Neut % (Auto) (50.0-68.0) % Lymph % (Auto) (22.0-35.0) % Ellis % (Auto) (1.0-6.0) % Eos % (Auto) (1.5-5.0) % Baso % (Auto) (0.0-3.0) % Lymph # (Auto) (1.2-3.4) Ellis # (Auto) (0.1-0.6) Eos # (Auto) (0.0-0.7) Baso # (Auto) (0.0-2.0) K/mm3 Absolute Neuts (auto) (1.4-6.5) PT (9.4-12.5) SECONDS INR APTT (26.9-38.3) Seconds pCO2 13 L* (35-45) mm/Hg pO2 304.0 H (80-100) mm/Hg HCO3 2.0 L* (21-28) mmol/L ABG pH 6.80 L* (7.35-7.45) ABG Total CO2 2.4 L (22-28) mmol.L ABG O2 Saturation 100.3 H (95-98) % ABG Base Excess -31.6 L (-2.0-3.0) mmol/L ABG Potassium 5.0 (3.6-5.2) mmol/L Glucose 449 H* D (65-105) mg/dl Lactate 18.3 H* (0.7-2.1) mmol/L Mechanical Rate 25 FiO2 100.0 % Tidal Volume 350 PEEP 5 Crit Value Called To Sheila argueta Crit Value Called By Ct Blood Gas Notified Time 930 Sodium 137.0 (132-148) mmol/L Potassium (3.6-5.0) mmol/L Chloride 108.0 H (98-107) mmol/L Carbon Dioxide (21-33) mmol/L Anion Gap (10-20) BUN (7-21) mg/dL Creatinine (0.7-1.2) mg/dl Est GFR ( Amer) Est GFR (Non-Af Amer) POC Glucose (mg/dL) 127 H 30 L* (65-110) mg/dL Random Glucose (70-110) mg/dL Calcium (8.4-10.5) mg/dL Total Bilirubin (0.2-1.3) mg/dL AST (14-36) U/L ALT (7-56) U/L Alkaline Phosphatase (38-126) U/L Total Protein (5.8-8.3) g/dL Albumin (3.0-4.8) g/dL Globulin gm/dL Albumin/Globulin Ratio (1.1-1.8) Arterial Blood Potassium 5.0 (3.6-5.2) mmol/L Blood Type Antibody Screen Crossmatch BBK History Checked 12/15/18 12/15/18 12/15/18 Range/Units 07:40 07:15 06:15 WBC (4.5-11.0) 10^3/uL RBC (3.5-6.1) 10^6/uL Hgb (12.0-16.0) g/dL Hct (36.0-48.0) % MCV (80.0-105.0) fl MCH (25.0-35.0) pg MCHC (31.0-37.0) g/dl RDW (11.5-14.5) % Plt Count (120.0-450.0) 10^3/uL MPV (7.0-11.0) fl Neut % (Auto) (50.0-68.0) % Lymph % (Auto) (22.0-35.0) % Ellis % (Auto) (1.0-6.0) % Eos % (Auto) (1.5-5.0) % Baso % (Auto) (0.0-3.0) % Lymph # (Auto) (1.2-3.4) Ellis # (Auto) (0.1-0.6) Eos # (Auto) (0.0-0.7) Baso # (Auto) (0.0-2.0) K/mm3 Absolute Neuts (auto) (1.4-6.5) PT > 320.0 H (9.4-12.5) SECONDS INR > 20.00 H* APTT 133.8 H* (26.9-38.3) Seconds pCO2 (35-45) mm/Hg pO2 (80-100) mm/Hg HCO3 (21-28) mmol/L ABG pH (7.35-7.45) ABG Total CO2 (22-28) mmol.L ABG O2 Saturation (95-98) % ABG Base Excess (-2.0-3.0) mmol/L ABG Potassium (3.6-5.2) mmol/L Glucose (65-105) mg/dl Lactate (0.7-2.1) mmol/L Mechanical Rate FiO2 % Tidal Volume PEEP Crit Value Called To Crit Value Called By Blood Gas Notified Time Sodium (132-148) mmol/L Potassium (3.6-5.0) mmol/L Chloride (98-107) mmol/L Carbon Dioxide (21-33) mmol/L Anion Gap (10-20) BUN (7-21) mg/dL Creatinine (0.7-1.2) mg/dl Est GFR ( Amer) Est GFR (Non-Af Amer) POC Glucose (mg/dL) < 20 L* (65-110) mg/dL Random Glucose (70-110) mg/dL Calcium (8.4-10.5) mg/dL Total Bilirubin (0.2-1.3) mg/dL AST (14-36) U/L ALT (7-56) U/L Alkaline Phosphatase (38-126) U/L Total Protein (5.8-8.3) g/dL Albumin (3.0-4.8) g/dL Globulin gm/dL Albumin/Globulin Ratio (1.1-1.8) Arterial Blood Potassium (3.6-5.2) mmol/L Blood Type O POSITIVE Antibody Screen Negative Crossmatch See Detail BBK History Checked Patient has bt 12/15/18 12/15/18 12/15/18 Range/Units 06:15 06:15 02:40 WBC 14.9 H D (4.5-11.0) 10^3/uL RBC 2.47 L (3.5-6.1) 10^6/uL Hgb 6.9 L* D (12.0-16.0) g/dL Hct 22.2 L (36.0-48.0) % MCV 89.9 D (80.0-105.0) fl MCH 27.9 (25.0-35.0) pg MCHC 31.1 (31.0-37.0) g/dl RDW 21.3 H (11.5-14.5) % Plt Count 163 (120.0-450.0) 10^3/uL MPV 11.2 H (7.0-11.0) fl Neut % (Auto) 74.6 H (50.0-68.0) % Lymph % (Auto) 19.7 L (22.0-35.0) % Ellis % (Auto) 5.5 (1.0-6.0) % Eos % (Auto) 0.0 L (1.5-5.0) % Baso % (Auto) 0.2 (0.0-3.0) % Lymph # (Auto) 2.9 (1.2-3.4) Ellis # (Auto) 0.8 H (0.1-0.6) Eos # (Auto) 0.0 (0.0-0.7) Baso # (Auto) 0.03 (0.0-2.0) K/mm3 Absolute Neuts (auto) 11.12 H (1.4-6.5) PT > 320.0 H (9.4-12.5) SECONDS INR TNP APTT 116.9 H* (26.9-38.3) Seconds pCO2 (35-45) mm/Hg pO2 (80-100) mm/Hg HCO3 (21-28) mmol/L ABG pH (7.35-7.45) ABG Total CO2 (22-28) mmol.L ABG O2 Saturation (95-98) % ABG Base Excess (-2.0-3.0) mmol/L ABG Potassium (3.6-5.2) mmol/L Glucose (65-105) mg/dl Lactate (0.7-2.1) mmol/L Mechanical Rate FiO2 % Tidal Volume PEEP Crit Value Called To Crit Value Called By Blood Gas Notified Time Sodium 139 (132-148) mmol/L Potassium 5.7 H* D (3.6-5.0) mmol/L Chloride 105 (98-107) mmol/L Carbon Dioxide 6 L D (21-33) mmol/L Anion Gap 34 H (10-20) BUN 22 H (7-21) mg/dL Creatinine 3.6 H (0.7-1.2) mg/dl Est GFR ( Amer) 15 Est GFR (Non-Af Amer) 12 POC Glucose (mg/dL) (65-110) mg/dL Random Glucose 94 (70-110) mg/dL Calcium 9.0 (8.4-10.5) mg/dL Total Bilirubin 1.9 H (0.2-1.3) mg/dL AST 1092 H (14-36) U/L ALT 268 H (7-56) U/L Alkaline Phosphatase 209 H D (38-126) U/L Total Protein 4.3 L (5.8-8.3) g/dL Albumin 1.9 L (3.0-4.8) g/dL Globulin 2.5 gm/dL Albumin/Globulin Ratio 0.8 L (1.1-1.8) Arterial Blood Potassium (3.6-5.2) mmol/L Blood Type Antibody Screen Crossmatch BBK History Checked 12/14/18 12/14/18 Range/Units 21:36 15:57 WBC (4.5-11.0) 10^3/uL RBC (3.5-6.1) 10^6/uL Hgb (12.0-16.0) g/dL Hct (36.0-48.0) % MCV (80.0-105.0) fl MCH (25.0-35.0) pg MCHC (31.0-37.0) g/dl RDW (11.5-14.5) % Plt Count (120.0-450.0) 10^3/uL MPV (7.0-11.0) fl Neut % (Auto) (50.0-68.0) % Lymph % (Auto) (22.0-35.0) % Ellis % (Auto) (1.0-6.0) % Eos % (Auto) (1.5-5.0) % Baso % (Auto) (0.0-3.0) % Lymph # (Auto) (1.2-3.4) Ellis # (Auto) (0.1-0.6) Eos # (Auto) (0.0-0.7) Baso # (Auto) (0.0-2.0) K/mm3 Absolute Neuts (auto) (1.4-6.5) PT (9.4-12.5) SECONDS INR APTT (26.9-38.3) Seconds pCO2 (35-45) mm/Hg pO2 (80-100) mm/Hg HCO3 (21-28) mmol/L ABG pH (7.35-7.45) ABG Total CO2 (22-28) mmol.L ABG O2 Saturation (95-98) % ABG Base Excess (-2.0-3.0) mmol/L ABG Potassium (3.6-5.2) mmol/L Glucose (65-105) mg/dl Lactate (0.7-2.1) mmol/L Mechanical Rate FiO2 % Tidal Volume PEEP Crit Value Called To Crit Value Called By Blood Gas Notified Time Sodium (132-148) mmol/L Potassium (3.6-5.0) mmol/L Chloride (98-107) mmol/L Carbon Dioxide (21-33) mmol/L Anion Gap (10-20) BUN (7-21) mg/dL Creatinine (0.7-1.2) mg/dl Est GFR ( Amer) Est GFR (Non-Af Amer) POC Glucose (mg/dL) 91 192 H (65-110) mg/dL Random Glucose (70-110) mg/dL Calcium (8.4-10.5) mg/dL Total Bilirubin (0.2-1.3) mg/dL AST (14-36) U/L ALT (7-56) U/L Alkaline Phosphatase (38-126) U/L Total Protein (5.8-8.3) g/dL Albumin (3.0-4.8) g/dL Globulin gm/dL Albumin/Globulin Ratio (1.1-1.8) Arterial Blood Potassium (3.6-5.2) mmol/L Blood Type Antibody Screen Crossmatch BBK History Checked Laboratory Results - last 24 hr 12/14/18 12/14/18 12/15/18 15:57 21:36 02:40 WBC RBC Hgb Hct MCV MCH MCHC RDW Plt Count MPV Neut % (Auto) Lymph % (Auto) Ellis % (Auto) Eos % (Auto) Baso % (Auto) Lymph # (Auto) Ellis # (Auto) Eos # (Auto) Baso # (Auto) Absolute Neuts (auto) PT > 320.0 H INR TNP APTT 116.9 H* pCO2 pO2 HCO3 ABG pH ABG Total CO2 ABG O2 Saturation ABG Base Excess ABG Potassium Glucose Lactate Mechanical Rate FiO2 Tidal Volume PEEP Crit Value Called To Crit Value Called By Blood Gas Notified Time Sodium Potassium Chloride Carbon Dioxide Anion Gap BUN Creatinine Est GFR ( Amer) Est GFR (Non-Af Amer) POC Glucose (mg/dL) 192 H 91 Random Glucose Calcium Total Bilirubin AST ALT Alkaline Phosphatase Total Protein Albumin Globulin Albumin/Globulin Ratio Arterial Blood Potassium Blood Type Antibody Screen Crossmatch BBK History Checked 12/15/18 12/15/18 12/15/18 06:15 06:15 06:15 WBC 14.9 H D RBC 2.47 L Hgb 6.9 L* D Hct 22.2 L MCV 89.9 D MCH 27.9 MCHC 31.1 RDW 21.3 H Plt Count 163 MPV 11.2 H Neut % (Auto) 74.6 H Lymph % (Auto) 19.7 L Ellis % (Auto) 5.5 Eos % (Auto) 0.0 L Baso % (Auto) 0.2 Lymph # (Auto) 2.9 Ellis # (Auto) 0.8 H Eos # (Auto) 0.0 Baso # (Auto) 0.03 Absolute Neuts (auto) 11.12 H PT > 320.0 H INR > 20.00 H* APTT 133.8 H* pCO2 pO2 HCO3 ABG pH ABG Total CO2 ABG O2 Saturation ABG Base Excess ABG Potassium Glucose Lactate Mechanical Rate FiO2 Tidal Volume PEEP Crit Value Called To Crit Value Called By Blood Gas Notified Time Sodium 139 Potassium 5.7 H* D Chloride 105 Carbon Dioxide 6 L D Anion Gap 34 H BUN 22 H Creatinine 3.6 H Est GFR ( Amer) 15 Est GFR (Non-Af Amer) 12 POC Glucose (mg/dL) Random Glucose 94 Calcium 9.0 Total Bilirubin 1.9 H AST 1092 H ALT 268 H Alkaline Phosphatase 209 H D Total Protein 4.3 L Albumin 1.9 L Globulin 2.5 Albumin/Globulin Ratio 0.8 L Arterial Blood Potassium Blood Type Antibody Screen Crossmatch BBK History Checked 12/15/18 12/15/18 12/15/18 07:15 07:40 08:12 WBC RBC Hgb Hct MCV MCH MCHC RDW Plt Count MPV Neut % (Auto) Lymph % (Auto) Ellis % (Auto) Eos % (Auto) Baso % (Auto) Lymph # (Auto) Ellis # (Auto) Eos # (Auto) Baso # (Auto) Absolute Neuts (auto) PT INR APTT pCO2 pO2 HCO3 ABG pH ABG Total CO2 ABG O2 Saturation ABG Base Excess ABG Potassium Glucose Lactate Mechanical Rate FiO2 Tidal Volume PEEP Crit Value Called To Crit Value Called By Blood Gas Notified Time Sodium Potassium Chloride Carbon Dioxide Anion Gap BUN Creatinine Est GFR ( Amer) Est GFR (Non-Af Amer) POC Glucose (mg/dL) < 20 L* 30 L* Random Glucose Calcium Total Bilirubin AST ALT Alkaline Phosphatase Total Protein Albumin Globulin Albumin/Globulin Ratio Arterial Blood Potassium Blood Type O POSITIVE Antibody Screen Negative Crossmatch See Detail BBK History Checked Patient has bt 12/15/18 12/15/18 12/15/18 09:00 09:15 10:56 WBC RBC Hgb Hct MCV MCH MCHC RDW Plt Count MPV Neut % (Auto) Lymph % (Auto) Ellis % (Auto) Eos % (Auto) Baso % (Auto) Lymph # (Auto) Ellis # (Auto) Eos # (Auto) Baso # (Auto) Absolute Neuts (auto) PT INR APTT pCO2 13 L* pO2 304.0 H HCO3 2.0 L* ABG pH 6.80 L* ABG Total CO2 2.4 L ABG O2 Saturation 100.3 H ABG Base Excess -31.6 L ABG Potassium 5.0 Glucose 449 H* D Lactate 18.3 H* Mechanical Rate 25 FiO2 100.0 Tidal Volume 350 PEEP 5 Crit Value Called To Sheila argueta Crit Value Called By Ct Blood Gas Notified Time 930 Sodium 137.0 Potassium Chloride 108.0 H Carbon Dioxide Anion Gap BUN Creatinine Est GFR ( Amer) Est GFR (Non-Af Amer) POC Glucose (mg/dL) 127 H 75 Random Glucose Calcium Total Bilirubin AST ALT Alkaline Phosphatase Total Protein Albumin Globulin Albumin/Globulin Ratio Arterial Blood Potassium 5.0 Blood Type Antibody Screen Crossmatch BBK History Checked 12/15/18 12/15/18 12:48 14:59 WBC RBC Hgb Hct MCV MCH MCHC RDW Plt Count MPV Neut % (Auto) Lymph % (Auto) Ellis % (Auto) Eos % (Auto) Baso % (Auto) Lymph # (Auto) Ellis # (Auto) Eos # (Auto) Baso # (Auto) Absolute Neuts (auto) PT INR APTT pCO2 pO2 HCO3 ABG pH ABG Total CO2 ABG O2 Saturation ABG Base Excess ABG Potassium Glucose Lactate Mechanical Rate FiO2 Tidal Volume PEEP Crit Value Called To Crit Value Called By Blood Gas Notified Time Sodium Potassium Chloride Carbon Dioxide Anion Gap BUN Creatinine Est GFR ( Amer) Est GFR (Non-Af Amer) POC Glucose (mg/dL) 38 L* 55 L Random Glucose Calcium Total Bilirubin AST ALT Alkaline Phosphatase Total Protein Albumin Globulin Albumin/Globulin Ratio Arterial Blood Potassium Blood Type Antibody Screen Crossmatch BBK History Checked Critical Care Progress Note - Nutrition Nutrition: Nutrition Category Date Time Status Renal Diet [DIET] Diets 12/14/18 Breakfast Ordered Attending/Attestation - Attestation I have personally seen and examined this patient.: Yes I have fully participated in the care of the patient.: Yes I have reviewed all pertinent clinical information: Yes Notes (Text): 12/15/18 16:[address] Sosa note
--- NOTE | 2018-12-15 10:54 | PN ---
DATE: 12/15/2018 SUBJECTIVE: The patient is in bed in no acute distress, nontoxic. PHYSICAL EXAMINATION: VITAL SIGNS: Temperature is 97, blood pressure is 70/24, respiratory rate of 18, heart rate of 91. HEENT: Unremarkable. NECK: Supple. LUNGS: Have decreased breath sounds. HEART: Normal S1, S2. ABDOMEN: Soft. LABORATORY EXAMINATION: Reveals a white count of 14,900, hemoglobin of 6.9, platelets of 163. Creatinine is 3.6 and alk phos is . Elevated LFTs are elevated. Microbiology reveals the nasal MRSA screen is negative. The blood cultures are negative. Review of orders reveals the patient to be on meropenem, Solu-Cortef, Synthroid, intermittent vancomycin. The patient's chest x-ray is noted. No active disease. ASSESSMENT AND PLAN: This is a 73-year-old female, chronic obstructive lung disease, asthma, atrial fibrillation, congestive heart failure, diabetes mellitus, anemia, end-stage renal disease on hemodialysis, [facility] patient found to have hypotensive tachycardia, septic shock versus cardiogenic profound versus hypovolemic metabolic acidosis, negative blood cultures, negative methicillin-resistant staphylococcus aureus screen. Negative chest x-ray. Consider a CAT scan of the abdomen and pelvis. We will follow with you. Overall prognosis is quite poor for this patient with multiple comorbidities. Santy Fernandez MD
[2018-12-15] MEDS: MEROPENEM 500 MG in NS 500 MG/50 ML BAG IVPB SCH (11:13)
[2018-12-15] MEDS: Fluticasone Nasal 50 mcg/Spray NS SCH (11:14)
--- NOTE | 2018-12-15 12:53 | PN ---
DATE: 12/15/2018 SUBJECTIVE: The patient is seen at bedside. She has altered mental status, not able to protect airways. Her blood pressure systolic was 90. Her blood glucose was found to be 20 and she received three 50% dextrose pushes. Decision was made to intubate the patient. The patient was intubated. OBJECTIVE: VITAL SIGNS: Heart rate 68 (amiodarone was stopped as the patient converted to sinus rhythm). The patient is on PRVC 350/25/5/100% (FIO2 will be adjusted once ABG is performed 1 hour later). Blood pressure remains 90 systolic on Levophed 20 mcg per minute, vasopressin 0.03 units per minute and stress dose steroids. HEENT: Head and neck atraumatic. The patient is intubated. The patient has dialysis catheter midline. HEART: Regular rate and rhythm. S1 and S2 distant. ABDOMEN: Soft, nontender, nondistended. LUNGS: Clear to auscultation bilaterally. Breath sounds symmetrical. MUSCULOSKELETAL: There is a decubiti present in several areas (the patient has severe lymphedema/skin excess, so it is hard to put location of these ulcers in relationship to deeper anatomical structures). SKIN: Dry. PSYCHIATRIC: The patient as altered mental status and somnolence. Chest x-ray after intubation showed endotracheal tube right above rosa. LABORATORY DATA: WBC 14.9, hemoglobin 6.9, platelet count 163, PTT 133.8, INR more than 20. Sodium 139, potassium 5.7, chloride 105, carbon dioxide 6, BUN 22, creatinine 3.6, glucose 94, AST 1092, ALT 268, total bilirubin 1.9. MEDICATIONS: Amiodarone (stopped), ascorbic acid 1.5 g IV every 6 hours, bicarb drip at 200 mL/hour, hydrocortisone 50 mg IV every 6 hours, Synthroid, meropenem, midodrine, norepinephrine, Protonix, vitamin K, Thiamine 200 mg IV b.i.d., vancomycin was given 2 days ago, vasopressin 0.03 units per minute. Assessment: This is a 73-year-old lady with refractory septic shock with multiorgan system failure including respiratory failure, shock liver, septic encephalopathy, hypoglycemia. The patient has substantial coagulopathy, which may or may not be related to Hep-Lock on the dialysis catheter that was suctioned out. Vitamin K given. Possibility of coagulopathy due to septic shock also high. However, the patient's platelet count is stable and she is not oozing from the intravenous catheters. At the present time, we will proceed with fluid resuscitation. The patient received 1 liter of normal saline and bicarb drip on D5 base will be instituted at a rate of 200 mL/hour. I will add vitamin C 1.5 g IV every 6 hours and thiamine 200 mg IV b.i.d. The patient will be on norepinephrine, vasopressin and stress dose steroids. If unable to increase blood pressure within short period of time on that, we will add epinephrine. We will get ABG with lactic acid and will trend lactic acid as well. The patient converted to sinus rhythm and amiodarone was stopped Neuro: The patient will be sedated as needed. Hypoglycemia will be aggressively treated/avoided. We will get EEG to rule out nonconvulsive status as well. We will proceed with Accu-Chek every 2 hours to ascertain resolution of hypoglycemia. Pulmonary: The patient developed respiratory failure secondary to refractory distributive shock. We will proceed with low/intermediate tidal volume ventilation with plateau pressure less than 25 cm of water. Once shock resolves consideration will be given to conservative fluid management. We will proceed with conservative oxygen management. Once shock resolves, daily sedation vacation and weaning trials will be instituted. We will continue with head of bed elevated more than 35 degrees, oral hygiene, DVT, GI prophylaxis. Cardiovascular: The patient is in distributive shock. Hemodynamic support is provided with norepinephrine (20 mcg per minute) vasopressin 0.03 units per minute and stress dose steroids. If unable to get the blood pressure up on this regimen, we will add epinephrine drip as well. Echocardiogram performed on November 23 (about 3 weeks ago) showed normal left ventricular systolic function, however, substantial left ventricular diastolic dysfunction demonstrated by left atrium severe dilatation. Right ventricle was of normal size and right ventricular systolic function was normal as well. ID: The patient has infected decubiti on her skin which most likely is a source of infection. We will get surgical consult on board. The patient is on vancomycin and meropenem. ID service is following the patient as well. The patient is refractory to septic shock. Septic workup so far was negative. Renal: The patient has end-stage renal disease and Is on dialysis. Dr. Fowler is at bedside and evaluated the patient-->unable to dialyze due to very low BP. hyperK is treated with Ca, D50/bicarb drip. once ph improves, K will go down Endocrine: We will continue with Accu-Chek every 2 hours and stress dose steroids. We will maintain blood glucose within 140-180 range according to NICE-SUGAR trial. Heme: The patient has substantial coagulopathy most likely secondary to combination of factors including septic shock and presence of Hep-Lock, which was removed. 1 PRBC ordered Overall prognosis is poor. Addendum: later in the afternoon patient developed cardiorespiratory arrest/PEA/asystole and ACLS protocol was instituted, Ca 1 gm given, bicarb drip increased, PRBC transfused. after more then 25 min, code was called off as per request. ccm time 40 min Gigi Sosa MD ANUP
[2018-12-15] MEDS: Dextrose 50% SYRINGE Inj (50 ml) ONE ×2 (13:42→15:22)
[2018-12-15] MEDS: Clotrimazole/Betamethasone Cream(15 gm) TOP SCH (13:51)
[2018-12-15] MEDS: Mupirocin 2% Ointment 15 GM TUBE EXT SCH (13:51)
--- NOTE | 2018-12-15 14:17 | CP.PCM.PN ---
Subjective - Date & Time of Evaluation Date of Evaluation: 12/15/18 Time of Evaluation: 14:09 - Subjective Subjective: Nephrology Consultation Note: Assessment: critical Hypotension/shock Acute Kidney Injury (N17.9) likely ATN, hemodynamic due to hypotension, cardio- renal, pre-renal: started HD 11/28/2018 Hypokalemia A fib with RVR Anemia iron def Vit D def with secondary hyperparathyroidism diabetes Mellitus ( years), COPD/emphysema with cor pulmonale with severe pHTN and valvular insufficiency, A fib, PVD, CAD. 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 can continue hco3 gtt and medical management poor prognosis Physical Examination: General Appearance: ++ ill appearing debilitated Vitals reviewed and noted as below Head; Atraumatic, normocephalic ENT: no ulcers no thrush. Tongue is midline. Oropharynx: ET tube EYES: Pupils are equal, round and reactive to light accommodation. Eye muscles and extraocular movement intact. Sclera is icteric. Neck; supple no lymphadenopathy, no thyromegaly or bruit Lungs:reduced bs b/l Heart: Incr rate. s1s2 normal. No rub or gallop. Extremities: 1+ pedal pitting edema. No varicose veins Neurological: Patient is awake oriented. No focal deficit. Strength bilateral appropriate and equal. Skin: Warm and dry. Normal turgor. No rash. Palpitation: Normal elasticity for age Abdomen: Abdomen is soft. Bowel sounds +. There is no abdominal tenderness, no guarding/rigidity no organomegaly Psych: limited insight and normal affect/mood MSK: no joint tenderness or swelling. Digits and nails normal, no deformity : kidney or bladder not palpable access: Rt PC Labs/imaging reviewed. Past medical history, past surgical history, family history, social history, allergy reviewed and noted as below Family hx: no hx of CKD. Rest non-contributory Echo; normal lvef, severe MR/TR/NV renal imaging: kidney cyst TSAT/Ferritin 12/356, SPEP/DILSHAD neg and normal FLC assay Vit D <12.8 PTH 286 urine alb/cr 126 mg/g Objective - Vital Signs/Intake and Output Vital Signs (last 24 hours): Temp Pulse Resp BP Pulse Ox 96.8 F L 62 21 92/48 L 97 12/15/18 00:00 12/15/18 13:38 12/15/18 08:20 12/15/18 12:50 12/15/18 13:20 Intake and Output: 12/15/18 12/15/18 06:59 18:59 Intake Total 2070 Output Total 50 Balance 2020 - Medications Medications: Current Medications Acetaminophen (Tylenol 325mg Tab) 650 mg PO Q4H PRN PRN Reason: Pain, moderate (4-7) Albumin Human (Albumin Human 25% (12.5 Gm/50 Ml)) 25 gm IV TTS PRN PRN Reason: Other Albuterol/Ipratropium (Duoneb 3 Mg/0.5 Mg (3 Ml) Ud) 3 ml IH Q6 [facility] Last Admin: 12/15/18 13:52 Dose: Not Given Betamethasone/Clotrimazole (Lotrisone) 0 gm TOP BID [facility] Last Admin: 12/15/18 13:51 Dose: Not Given Cyproheptadine HCl (Periactin) 4 mg PO DAILY [facility] Last Admin: 12/15/18 11:15 Dose: Not Given Darbepoetin Siddhartha 100 mcg/ (Darbepoetin Siddhartha 50 mcg) 150 mcg IVP QWK [facility] Fludrocortisone Acetate (Florinef) 0.1 mg PO DAILY [facility] Last Admin: 12/15/18 11:14 Dose: Not Given Fluticasone Propionate (Flonase) 1 actuation NS DAILY [facility] Last Admin: 12/15/18 11:14 Dose: Not Given Hydrocortisone Sodium Succinate (Solu-Cortef) 50 mg IVP Q6 [facility] Last Admin: 12/15/18 11:16 Dose: 50 mg NOREPINEPHRINE BIT/0.9 % NACL (Levophed 4 Mg/ 250 Ml Ns Premixed) 4 mg in 250 mls @ 15 mls/hr IV .[id number] PRN; Protocol PRN Reason: TITRATE PER MD ORDER Last Titration: 12/14/18 21:15 Dose: 8 mcg/min, 30 mls/hr Meropenem/Sodium Chloride (Merrem Iv 500 Mg/Ns 50 Ml) 500 mg in 50 mls @ 100 mls/hr IVPB Q12 [facility]; Protocol Stop: 12/21/18 22:01 Last Admin: 12/15/18 11:13 Dose: 100 mls/hr Ascorbic Acid 1,500 mg/ Sodium (Chloride) 53 mls @ 53 mls/hr IVPB Q6H [facility] Last Admin: 12/15/18 13:44 Dose: 53 mls/hr Dextrose/Sodium Chloride (Dextrose 5%/0.9% Ns 1000 Ml) 1,000 mls @ 200 mls/hr IV .Q5H [facility] Thiamine HCl 200 mg/ Sodium (Chloride) 52 mls @ 104 mls/hr IV BID [facility] Last Admin: 12/15/18 09:54 Dose: 104 mls/hr Sodium Bicarbonate 150 meq/ (Dextrose) 1,150 mls @ 200 mls/hr IV .Q5H45M [facility] Last Admin: 12/15/18 09:47 Dose: 200 mls/hr Epinephrine HCl 1 mg/ Sodium (Chloride) 51 mls @ 3.06 mls/hr IV .[id number] PRN; Protocol PRN Reason: TITRATE PER MD ORDER Last Admin: 12/15/18 13:44 Dose: 2 mcg/min, 6.12 mls/hr Vasopressin 20 units/ Sodium (Chloride) 101 mls @ 9.09 mls/hr IV .Q11H7M [facility]; Protocol Insulin Human Regular (Humulin R Med) 0 units SC ACHS [facility]; Protocol Last Admin: 12/15/18 13:45 Dose: Not Given Levothyroxine Sodium (Synthroid) 25 mcg PO 0600 [facility] Last Admin: 12/15/18 06:12 Dose: Not Given Midodrine (Proamatine) 10 mg PO TID [facility] Last Admin: 12/15/18 11:15 Dose: Not Given Mupirocin (Bactroban Ointment) 30 gm EXT BID [facility] Last Admin: 12/15/18 13:51 Dose: Not Given Budesonide [ Pulmicort Flexhaler] 1 Puff (Home Med) 1 puff IH QID [facility] Pantoprazole Sodium (Protonix Ec Tab) 40 mg PO 0600 [facility] Last Admin: 12/15/18 06:11 Dose: Not Given Pantoprazole Sodium (Protonix Inj) 40 mg IVP Q12 [facility] Last Admin: 12/15/18 09:57 Dose: 40 mg Silver Sulfadiazine (Silvadene 1%) 0 ea TOP Q8H [facility] Last Admin: 12/15/18 03:02 Dose: Not Given Warfarin Sodium (Coumadin) 3 mg PO 1800 [facility]; Protocol Last Admin: 12/13/18 18:55 Dose: 3 mg - Labs Labs: 12/15/18 06:15 12/15/18 06:15 PT > 320.0 SECONDS (9.4-12.5) H 12/15/18 06:15 INR > 20.00 H* 12/15/18 06:15 APTT 133.8 Seconds (26.9-38.3) H* 12/15/18 06:15
--- NOTE | 2018-12-15 15:26 | CP.PCM.CON ---
History of Present Illness - History of Present Illness History of Present Illness: SURGERY CONSULT NOTE FOR DR. CAPPS Reason: Lower extremity wounds/sacral wounds 73F presents to hospital after having hypotension at an outside facility where she lives, [facility]. She was sent by her PMD. Patient is a morbidly obese female and according to family, she has been having decreased appetite for months causing her to lose a lot of weight. She was not complaining of any symptoms on arrival to hospital. With hypotension of unknown source, sepsis vs cardiogenic, patient was admitted to ICU. This morning she went into respiratory distress and was intubated. Blood pressure seems to be worsening and pressors have been on and increasing. Patient currently on three pressors at time of exam. Family is at bedside. Blood pressure remains low however despite this. PMH: COPD, A-fib, morbid obesity, CHF, DM, ERSD PSH: Lower extremity operations, per note - abd mass removal 30 yeas ago Allergies: NKDA Past Patient History - Infectious Disease Hx of Infectious Diseases: None - Tetanus Immunizations Tetanus Immunization: Unknown - Past Social History Smoking Status: Never Smoked - CARDIAC Hx Cardiac Disorders: Yes - PULMONARY Hx Chronic Obstructive Pulmonary Disease (COPD): Yes - NEUROLOGICAL Hx Neurological Disorder: No - HEENT Hx HEENT Problems: Yes (glasses) - RENAL Hx Renal Failure: Yes - ENDOCRINE/METABOLIC Hx Diabetes Mellitus Type 2: Yes - HEMATOLOGICAL/ONCOLOGICAL Hx Blood Disorders: Yes (septicemia) Hx Anemia: Yes - INTEGUMENTARY Hx Dermatological Problems: Yes (chronic venous stasis dermatitis ble) Other/Comment: pt is obese, right outer thigh skin openings healed, redness, hard brown dry skin, dimpling to left thigh, pt c/o that she, sometimes has drainage from left thigh. both lower legs and feet dry skin. redness and discoloration to right abd fold healed, ble +4 pitting edema & brown discolored dry skin, dry skin and toenails both feet, multiple healing unmeasurable wounds to b/l buttocks, irregular wound left buttock red, multiple wounds in various stages of healing to entire abd, multiple areas of red foul smelling and draining light green purulent drainage wounds to upper and lower abd, discolored brown skin to abd, healing wounds to b/l thighs - MUSCULOSKELETAL/RHEUMATOLOGICAL Hx Falls: No - GASTROINTESTINAL Hx Gastroesophageal Reflux: Yes - GENITOURINARY/GYNECOLOGICAL Hx Genitourinary Disorders: Yes Hx Hematuria: Yes Hx Incontinence: Yes (urine and stool) Hx Urinary Tract Infection: Yes - PSYCHIATRIC Hx Psychophysiologic Disorder: No Hx Substance Use: No - SURGICAL HISTORY Hx Cardiac Catheterization: Yes Hx Mastectomy: No Other/Comment: benign mass removed from abd over 30 yrs ago - ANESTHESIA Hx Anesthesia: Yes Hx Anesthesia Reactions: No Hx Malignant Hyperthermia: No Meds Allergies/Adverse Reactions: Allergies Allergy/AdvReac Type Severity Reaction Status Date / Time No Known Allergies Allergy Verified 11/22/18 14:50 - Medications Medications: Current Medications Acetaminophen (Tylenol 325mg Tab) 650 mg PO Q4H PRN PRN Reason: Pain, moderate (4-7) Albumin Human (Albumin Human 25% (12.5 Gm/50 Ml)) 25 gm IV TTS PRN PRN Reason: Other Albuterol/Ipratropium (Duoneb 3 Mg/0.5 Mg (3 Ml) Ud) 3 ml IH Q6 [facility] Last Admin: 12/15/18 13:52 Dose: Not Given Betamethasone/Clotrimazole (Lotrisone) 0 gm TOP BID [facility] Last Admin: 12/15/18 13:51 Dose: Not Given Cyproheptadine HCl (Periactin) 4 mg PO DAILY [facility] Last Admin: 12/15/18 11:15 Dose: Not Given Darbepoetin Siddhartha 100 mcg/ (Darbepoetin Siddhartha 50 mcg) 150 mcg IVP QWK [facility] Fludrocortisone Acetate (Florinef) 0.1 mg PO DAILY [facility] Last Admin: 12/15/18 11:14 Dose: Not Given Fluticasone Propionate (Flonase) 1 actuation NS DAILY [facility] Last Admin: 12/15/18 11:14 Dose: Not Given Hydrocortisone Sodium Succinate (Solu-Cortef) 50 mg IVP Q6 [facility] Last Admin: 12/15/18 11:16 Dose: 50 mg NOREPINEPHRINE BIT/0.9 % NACL (Levophed 4 Mg/ 250 Ml Ns Premixed) 4 mg in 250 mls @ 15 mls/hr IV .[id number] PRN; Protocol PRN Reason: TITRATE PER MD ORDER Last Titration: 12/14/18 21:15 Dose: 8 mcg/min, 30 mls/hr Meropenem/Sodium Chloride (Merrem Iv 500 Mg/Ns 50 Ml) 500 mg in 50 mls @ 100 mls/hr IVPB Q12 [facility]; Protocol Stop: 12/21/18 22:01 Last Admin: 12/15/18 11:13 Dose: 100 mls/hr Ascorbic Acid 1,500 mg/ Sodium (Chloride) 53 mls @ 53 mls/hr IVPB Q6H [facility] Last Admin: 12/15/18 13:44 Dose: 53 mls/hr Dextrose/Sodium Chloride (Dextrose 5%/0.9% Ns 1000 Ml) 1,000 mls @ 200 mls/hr IV .Q5H [facility] Thiamine HCl 200 mg/ Sodium (Chloride) 52 mls @ 104 mls/hr IV BID [facility] Last Admin: 12/15/18 09:54 Dose: 104 mls/hr Sodium Bicarbonate 150 meq/ (Dextrose) 1,150 mls @ 200 mls/hr IV .Q5H45M [facility] Last Admin: 12/15/18 09:47 Dose: 200 mls/hr Epinephrine HCl 1 mg/ Sodium (Chloride) 51 mls @ 3.06 mls/hr IV .[id number] PRN; Protocol PRN Reason: TITRATE PER MD ORDER Last Admin: 12/15/18 13:44 Dose: 2 mcg/min, 6.12 mls/hr Vasopressin 20 units/ Sodium (Chloride) 101 mls @ 9.09 mls/hr IV .Q11H7M [facility]; Protocol Insulin Human Regular (Humulin R Med) 0 units SC ACHS [facility]; Protocol Last Admin: 12/15/18 13:45 Dose: Not Given Levothyroxine Sodium (Synthroid) 25 mcg PO 0600 [facility] Last Admin: 12/15/18 06:12 Dose: Not Given Midodrine (Proamatine) 10 mg PO TID [facility] Last Admin: 12/15/18 11:15 Dose: Not Given Mupirocin (Bactroban Ointment) 30 gm EXT BID [facility] Last Admin: 12/15/18 13:51 Dose: Not Given Budesonide [ Pulmicort Flexhaler] 1 Puff (Home Med) 1 puff IH QID [facility] Pantoprazole Sodium (Protonix Ec Tab) 40 mg PO 0600 [facility] Last Admin: 12/15/18 06:11 Dose: Not Given Pantoprazole Sodium (Protonix Inj) 40 mg IVP Q12 [facility] Last Admin: 12/15/18 09:57 Dose: 40 mg Silver Sulfadiazine (Silvadene 1%) 0 ea TOP Q8H [facility] Last Admin: 12/15/18 03:02 Dose: Not Given Warfarin Sodium (Coumadin) 3 mg PO 1800 [facility]; Protocol Last Admin: 12/13/18 18:55 Dose: 3 mg Physical Exam - Constitutional Appears: Toxic, In Acute Distress Additional comments: morbidly obese - Head Exam Head Exam: ATRAUMATIC - Eye Exam Eye Exam: PERRL - ENT Exam ENT Exam: Mucous Membranes Dry Additional comments: intubated with endotracheal tube - Respiratory Exam Additional comments: intubated on mechanical ventilation - Cardiovascular Exam Cardiovascular Exam: +S1, +S2 - GI/Abdominal Exam GI & Abdominal Exam: Soft. absent: Distended, Firm, Rigid, Tenderness - Extremities Exam Additional comments: excess skin on lower extremities - Back Exam Additional comments: patient currently in fragile state, moving patient may be detrimental - Additional Findings Additional findings: exam limited, family at bedside with patient as she is doing very poorly on three pressors Results - Vital Signs Recent Vital Signs: Last Vital Signs Temp 96.8 F L 12/15/18 00:00 Pulse 62 12/15/18 13:38 Resp 21 12/15/18 08:20 BP 92/48 L 12/15/18 12:50 Pulse Ox 97 12/15/18 13:20 - Labs Result Diagrams: 12/15/18 06:15 12/15/18 06:15 Labs: Laboratory Results - last 24 hr 12/14/18 12/14/18 12/15/18 15:57 21:36 02:40 WBC RBC Hgb Hct MCV MCH MCHC RDW Plt Count MPV Neut % (Auto) Lymph % (Auto) [place] % (Auto) Eos % (Auto) Baso % (Auto) Lymph # (Auto) [place] # (Auto) Eos # (Auto) Baso # (Auto) Absolute Neuts (auto) PT > 320.0 H INR TNP APTT 116.9 H* pCO2 pO2 HCO3 ABG pH ABG Total CO2 ABG O2 Saturation ABG Base Excess ABG Potassium Glucose Lactate Mechanical Rate FiO2 Tidal Volume PEEP Crit Value Called To Crit Value Called By Blood Gas Notified Time Sodium Potassium Chloride Carbon Dioxide Anion Gap BUN Creatinine Est GFR ( Amer) Est GFR (Non-Af Amer) POC Glucose (mg/dL) 192 H 91 Random Glucose Calcium Total Bilirubin AST ALT Alkaline Phosphatase Total Protein Albumin Globulin Albumin/Globulin Ratio Arterial Blood Potassium Blood Type Antibody Screen Crossmatch BBK History Checked 12/15/18 12/15/18 12/15/18 06:15 06:15 06:15 WBC 14.9 H D RBC 2.47 L Hgb 6.9 L* D Hct 22.2 L MCV 89.9 D MCH 27.9 MCHC 31.1 RDW 21.3 H Plt Count 163 MPV 11.2 H Neut % (Auto) 74.6 H Lymph % (Auto) 19.7 L [place] % (Auto) 5.5 Eos % (Auto) 0.0 L Baso % (Auto) 0.2 Lymph # (Auto) 2.9 [place] # (Auto) 0.8 H Eos # (Auto) 0.0 Baso # (Auto) 0.03 Absolute Neuts (auto) 11.12 H PT > 320.0 H INR > 20.00 H* APTT 133.8 H* pCO2 pO2 HCO3 ABG pH ABG Total CO2 ABG O2 Saturation ABG Base Excess ABG Potassium Glucose Lactate Mechanical Rate FiO2 Tidal Volume PEEP Crit Value Called To Crit Value Called By Blood Gas Notified Time Sodium 139 Potassium 5.7 H* D Chloride 105 Carbon Dioxide 6 L D Anion Gap 34 H BUN 22 H Creatinine 3.6 H Est GFR ( Amer) 15 Est GFR (Non-Af Amer) 12 POC Glucose (mg/dL) Random Glucose 94 Calcium 9.0 Total Bilirubin 1.9 H AST 1092 H ALT 268 H Alkaline Phosphatase 209 H D Total Protein 4.3 L Albumin 1.9 L Globulin 2.5 Albumin/Globulin Ratio 0.8 L Arterial Blood Potassium Blood Type Antibody Screen Crossmatch BBK History Checked 12/15/18 12/15/18 12/15/18 07:15 07:40 08:12 WBC RBC Hgb Hct MCV MCH MCHC RDW Plt Count MPV Neut % (Auto) Lymph % (Auto) [place] % (Auto) Eos % (Auto) Baso % (Auto) Lymph # (Auto) [place] # (Auto) Eos # (Auto) Baso # (Auto) Absolute Neuts (auto) PT INR APTT pCO2 pO2 HCO3 ABG pH ABG Total CO2 ABG O2 Saturation ABG Base Excess ABG Potassium Glucose Lactate Mechanical Rate FiO2 Tidal Volume PEEP Crit Value Called To Crit Value Called By Blood Gas Notified Time Sodium Potassium Chloride Carbon Dioxide Anion Gap BUN Creatinine Est GFR ( Amer) Est GFR (Non-Af Amer) POC Glucose (mg/dL) < 20 L* 30 L* Random Glucose Calcium Total Bilirubin AST ALT Alkaline Phosphatase Total Protein Albumin Globulin Albumin/Globulin Ratio Arterial Blood Potassium Blood Type O POSITIVE Antibody Screen Negative Crossmatch See Detail BBK History Checked Patient has bt 12/15/18 12/15/18 12/15/18 09:00 09:15 10:56 WBC RBC Hgb Hct MCV MCH MCHC RDW Plt Count MPV Neut % (Auto) Lymph % (Auto) [place] % (Auto) Eos % (Auto) Baso % (Auto) Lymph # (Auto) [place] # (Auto) Eos # (Auto) Baso # (Auto) Absolute Neuts (auto) PT INR APTT pCO2 13 L* pO2 304.0 H HCO3 2.0 L* ABG pH 6.80 L* ABG Total CO2 2.4 L ABG O2 Saturation 100.3 H ABG Base Excess -31.6 L ABG Potassium 5.0 Glucose 449 H* D Lactate 18.3 H* Mechanical Rate 25 FiO2 100.0 Tidal Volume 350 PEEP 5 Crit Value Called To Sheila argueta Crit Value Called By Ct Blood Gas Notified Time 930 Sodium 137.0 Potassium Chloride 108.0 H Carbon Dioxide Anion Gap BUN Creatinine Est GFR ( Amer) Est GFR (Non-Af Amer) POC Glucose (mg/dL) 127 H 75 Random Glucose Calcium Total Bilirubin AST ALT Alkaline Phosphatase Total Protein Albumin Globulin Albumin/Globulin Ratio Arterial Blood Potassium 5.0 Blood Type Antibody Screen Crossmatch BBK History Checked Assessment & Plan - Assessment and Plan (Free Text) Assessment: 73F with ventilator dependant respiratory distress and shock, sepsis vs cardiogenic Plan: - Continual family meeting - continue ICU management - Patient on three pressors, poor candidate for any form of intervention - Further recs discuss with Dr. Jonathan Jeffries, PGY3
--- NOTE | 2018-12-15 17:28 | RAD ---
Date of service: 12/15/2018 HISTORY: ET tube placement COMPARISON: 12/13/2018 TECHNIQUE: 1 view obtained. FINDINGS: LUNGS: No active pulmonary disease. PLEURA: No significant pleural effusion identified, no pneumothorax apparent. CARDIOVASCULAR: There is atherosclerotic calcification of the thoracic aorta. Normal heart size. Tunneled central venous dialysis catheter. Endotracheal tube positioned with its tip approximately 2.6 cm above the tracheal rosa. No pulmonary vascular congestion. OSSEOUS STRUCTURES: No significant abnormalities. VISUALIZED UPPER ABDOMEN: Normal. OTHER FINDINGS: None. IMPRESSION: ET tube positioned approximately 2.6 cm above tracheal rosa.
[2018-12-15 17:33] LABS: CALCIUM 11.1 mg/dL (8.4-10.5)
--- NOTE | 2018-12-15 17:36 | CP.PCM.PRO ---
<Wes Oliveira - Last Filed: 12/15/18 17:39> Pronouncement of Note - Clinical Findings Physical Exam: No Response Verbal/Painful Stimuli, Absent Peripheral Pulses{Carotid & Femoral}, Absent Heart & Breath Sounds, No Pupillary Light Reflex, No Corneal Reflex, Pupils Fixed & Dilated, Absence of Vital Signs - Pronouncement Time Time of Pronouncement of : 17:26 - Notifications Pronouncement Notifications: Family Notified, [place] Notified - [place] [id number] <Gigi Sosa - Last Filed: 12/15/18 19:00> Attending/Attestation - Attestation I have personally seen and examined this patient.: Yes I have fully participated in the care of the patient.: Yes I have reviewed all pertinent clinical information: Yes
[2018-12-15 17:59] VITALS: BP 94/59; PULSE 30; RESP 31; TEMP 97; O2SAT 70
--- NOTE | 2018-12-15 21:08 | CP.PCM.CON ---
History of Present Illness - History of Present Illness History of Present Illness: 73 year old female with a history of obesity, CHF, COPD, DM, ESRD, afib on coumadin, currently intubated and on multiple pressors, with coagulopathy, anemia, and thrombocytopenia. The patient is currently intubated and I am unable to obtain a history from the patient. Review of her records shows her coumadin has been stopped and she was given vit K 2.5mg IV x 1 last night. She has no overt and significant bleeding. INR increased from 0.9 on admission to > 20 today. Past medical, surgical, family, social history cannot be obtained. Allergies: Per documentation NKA Review of systems cannot be obtained. Past Patient History - Infectious Disease Hx of Infectious Diseases: None - Tetanus Immunizations Tetanus Immunization: Unknown - Past Social History Smoking Status: Never Smoked - CARDIAC Hx Cardiac Disorders: Yes - PULMONARY Hx Chronic Obstructive Pulmonary Disease (COPD): Yes - NEUROLOGICAL Hx Neurological Disorder: No - HEENT Hx HEENT Problems: Yes (glasses) - RENAL Hx Renal Failure: Yes - ENDOCRINE/METABOLIC Hx Diabetes Mellitus Type 2: Yes - HEMATOLOGICAL/ONCOLOGICAL Hx Blood Disorders: Yes (septicemia) Hx Anemia: Yes - INTEGUMENTARY Hx Dermatological Problems: Yes (chronic venous stasis dermatitis ble) Other/Comment: pt is obese, right outer thigh skin openings healed, redness, hard brown dry skin, dimpling to left thigh, pt c/o that she, sometimes has drainage from left thigh. both lower legs and feet dry skin. redness and discoloration to right abd fold healed, ble +4 pitting edema & brown discolored dry skin, dry skin and toenails both feet, multiple healing unmeasurable wounds to b/l buttocks, irregular wound left buttock red, multiple wounds in various stages of healing to entire abd, multiple areas of red foul smelling and draining light green purulent drainage wounds to upper and lower abd, discolored brown skin to abd, healing wounds to b/l thighs - MUSCULOSKELETAL/RHEUMATOLOGICAL Hx Falls: No - GASTROINTESTINAL Hx Gastroesophageal Reflux: Yes - GENITOURINARY/GYNECOLOGICAL Hx Genitourinary Disorders: Yes Hx Hematuria: Yes Hx Incontinence: Yes (urine and stool) Hx Urinary Tract Infection: Yes - PSYCHIATRIC Hx Psychophysiologic Disorder: No Hx Substance Use: No - SURGICAL HISTORY Hx Cardiac Catheterization: Yes Hx Mastectomy: No Other/Comment: benign mass removed from abd over 30 yrs ago - ANESTHESIA Hx Anesthesia: Yes Hx Anesthesia Reactions: No Hx Malignant Hyperthermia: No Meds Allergies/Adverse Reactions: Allergies Allergy/AdvReac Type Severity Reaction Status Date / Time No Known Allergies Allergy Verified 11/22/18 14:50 Physical Exam - Head Exam Head Exam: ATRAUMATIC - Eye Exam Eye Exam: Normal appearance - ENT Exam ENT Exam: Mucous Membranes Dry - Respiratory Exam Respiratory Exam: Decreased Breath Sounds - Cardiovascular Exam Cardiovascular Exam: +S1, +S2 - GI/Abdominal Exam GI & Abdominal Exam: Normal Bowel Sounds - Extremities Exam Extremities exam: Positive for: pedal edema - Skin Skin Exam: Warm Results - Vital Signs Recent Vital Signs: Last Vital Signs Temp 97.0 F L 12/15/18 08:00 Pulse 30 L 12/15/18 17:29 Resp 31 H 12/15/18 16:51 BP 94/59 L 12/15/18 17:21 Pulse Ox 70 L 12/15/18 17:24 - Labs Result Diagrams: 12/15/18 06:15 12/15/18 17:16 Labs: Laboratory Results - last 24 hr 12/14/18 12/14/18 12/15/18 15:57 21:36 02:40 WBC RBC Hgb Hct MCV MCH MCHC RDW Plt Count MPV Neut % (Auto) Lymph % (Auto) Garrett % (Auto) Eos % (Auto) Baso % (Auto) Lymph # (Auto) Garrett # (Auto) Eos # (Auto) Baso # (Auto) Absolute Neuts (auto) PT > 320.0 H INR TNP APTT 116.9 H* pCO2 pO2 HCO3 ABG pH ABG Total CO2 ABG O2 Saturation ABG Base Excess ABG Potassium Glucose Lactate Mechanical Rate FiO2 Tidal Volume PEEP Crit Value Called To Crit Value Called By Blood Gas Notified Time Sodium Potassium Chloride Carbon Dioxide Anion Gap BUN Creatinine Est GFR ( Amer) Est GFR (Non-Af Amer) POC Glucose (mg/dL) 192 H 91 Random Glucose Calcium Total Bilirubin AST ALT Alkaline Phosphatase Total Protein Albumin Globulin Albumin/Globulin Ratio Arterial Blood Potassium Blood Type Antibody Screen Crossmatch BBK History Checked 12/15/18 12/15/18 12/15/18 06:15 06:15 06:15 WBC 14.9 H D RBC 2.47 L Hgb 6.9 L* D Hct 22.2 L MCV 89.9 D MCH 27.9 MCHC 31.1 RDW 21.3 H Plt Count 163 MPV 11.2 H Neut % (Auto) 74.6 H Lymph % (Auto) 19.7 L Garrett % (Auto) 5.5 Eos % (Auto) 0.0 L Baso % (Auto) 0.2 Lymph # (Auto) 2.9 Garrett # (Auto) 0.8 H Eos # (Auto) 0.0 Baso # (Auto) 0.03 Absolute Neuts (auto) 11.12 H PT > 320.0 H INR > 20.00 H* APTT 133.8 H* pCO2 pO2 HCO3 ABG pH ABG Total CO2 ABG O2 Saturation ABG Base Excess ABG Potassium Glucose Lactate Mechanical Rate FiO2 Tidal Volume PEEP Crit Value Called To Crit Value Called By Blood Gas Notified Time Sodium 139 Potassium 5.7 H* D Chloride 105 Carbon Dioxide 6 L D Anion Gap 34 H BUN 22 H Creatinine 3.6 H Est GFR ( Amer) 15 Est GFR (Non-Af Amer) 12 POC Glucose (mg/dL) Random Glucose 94 Calcium 9.0 Total Bilirubin 1.9 H AST 1092 H ALT 268 H Alkaline Phosphatase 209 H D Total Protein 4.3 L Albumin 1.9 L Globulin 2.5 Albumin/Globulin Ratio 0.8 L Arterial Blood Potassium Blood Type Antibody Screen Crossmatch BBK History Checked 12/15/18 12/15/18 12/15/18 07:15 07:40 08:12 WBC RBC Hgb Hct MCV MCH MCHC RDW Plt Count MPV Neut % (Auto) Lymph % (Auto) Garrett % (Auto) Eos % (Auto) Baso % (Auto) Lymph # (Auto) Garrett # (Auto) Eos # (Auto) Baso # (Auto) Absolute Neuts (auto) PT INR APTT pCO2 pO2 HCO3 ABG pH ABG Total CO2 ABG O2 Saturation ABG Base Excess ABG Potassium Glucose Lactate Mechanical Rate FiO2 Tidal Volume PEEP Crit Value Called To Crit Value Called By Blood Gas Notified Time Sodium Potassium Chloride Carbon Dioxide Anion Gap BUN Creatinine Est GFR ( Amer) Est GFR (Non-Af Amer) POC Glucose (mg/dL) < 20 L* 30 L* Random Glucose Calcium Total Bilirubin AST ALT Alkaline Phosphatase Total Protein Albumin Globulin Albumin/Globulin Ratio Arterial Blood Potassium Blood Type O POSITIVE Antibody Screen Negative Crossmatch See Detail BBK History Checked Patient has bt 12/15/18 12/15/18 12/15/18 09:00 09:15 10:56 WBC RBC Hgb Hct MCV MCH MCHC RDW Plt Count MPV Neut % (Auto) Lymph % (Auto) Garrett % (Auto) Eos % (Auto) Baso % (Auto) Lymph # (Auto) Garrett # (Auto) Eos # (Auto) Baso # (Auto) Absolute Neuts (auto) PT INR APTT pCO2 13 L* pO2 304.0 H HCO3 2.0 L* ABG pH 6.80 L* ABG Total CO2 2.4 L ABG O2 Saturation 100.3 H ABG Base Excess -31.6 L ABG Potassium 5.0 Glucose 449 H* D Lactate 18.3 H* Mechanical Rate 25 FiO2 100.0 Tidal Volume 350 PEEP 5 Crit Value Called To Sheila argueta Crit Value Called By Ct Blood Gas Notified Time 930 Sodium 137.0 Potassium Chloride 108.0 H Carbon Dioxide Anion Gap BUN Creatinine Est GFR ( Amer) Est GFR (Non-Af Amer) POC Glucose (mg/dL) 127 H 75 Random Glucose Calcium Total Bilirubin AST ALT Alkaline Phosphatase Total Protein Albumin Globulin Albumin/Globulin Ratio Arterial Blood Potassium 5.0 Blood Type Antibody Screen Crossmatch BBK History Checked 12/15/18 12/15/18 12/15/18 12:48 14:59 17:16 WBC RBC Hgb Hct MCV MCH MCHC RDW Plt Count MPV Neut % (Auto) Lymph % (Auto) Garrett % (Auto) Eos % (Auto) Baso % (Auto) Lymph # (Auto) Garrett # (Auto) Eos # (Auto) Baso # (Auto) Absolute Neuts (auto) PT INR APTT pCO2 pO2 HCO3 ABG pH ABG Total CO2 ABG O2 Saturation ABG Base Excess ABG Potassium Glucose Lactate Mechanical Rate FiO2 Tidal Volume PEEP Crit Value Called To Crit Value Called By Blood Gas Notified Time Sodium 130 L Potassium 7.2 H* D Chloride 88 L Carbon Dioxide 14 L Anion Gap 35 H BUN 18 Creatinine 2.4 H Est GFR ( Amer) 24 Est GFR (Non-Af Amer) 20 POC Glucose (mg/dL) 38 L* 55 L Random Glucose 1025 H* D Calcium 11.1 H Total Bilirubin AST ALT Alkaline Phosphatase Total Protein Albumin Globulin Albumin/Globulin Ratio Arterial Blood Potassium Blood Type Antibody Screen Crossmatch BBK History Checked Assessment & Plan (1) Coagulopathy Assessment and Plan: multifactorial prior coumadin, nutritional, sepsis ? progressive DIC s/p vit k FFP PRN Status: Acute (2) Anemia Assessment and Plan: likely chronic disease and renal disease ? DIC no overt evidence of bleeding transfusion support PRN Status: Acute (3) Leukocytosis Assessment and Plan: on antibiotics poor prognosis THank you for this interesting consult. Status: Acute
--- NOTE | 2018-12-16 15:00 | PROCN ---
PROCEDURE DATE: 12/15/2018 PROCEDURE: Endotracheal intubation. INDICATION: Hypoxemic respiratory failure, inability to protect airways. DESCRIPTION OF PROCEDURE: The patient was pre-oxygenated with 100% FiO2 via Ambu bag. Etomidate IV was used for sedation, as the patient has low blood pressure. One liter of normal saline wide open was given prior to intubation to optimize right ventricular function. Direct laryngoscopy performed with blade MAC 3, curved. Vocal cord visualized. Trachea cannulated with 7.5 Kinyarwanda endotracheal tube. Position confirmed with gastric and bilateral lung auscultation, and subsequently with chest x-ray. The patient tolerated the procedure well. Gigi Sosa MD
--- NOTE | 2018-12-17 08:28 | OP ---
PROCEDURE DATE: 12/15/2018 PROCEDURE: Endotracheal intubation. INDICATION: Respiratory failure. DESCRIPTION OF PROCEDURE: The patient was pre-oxygenated with 100% FiO2 via Ambu bag. A liter of normal saline bolus was given. Vital signs were monitored throughout the procedure. Direct laryngoscopy performed with curved Mac-3 blade. Vocal cords visualized. Trachea intubated. Position confirmed with gastric and bilateral lung auscultation as well as change in the color of the end-tidal CO2 gauge. Chest x-ray confirmed correct position of the endotracheal tube. etomidate 20 mL was used for the sedation. The patient tolerated the procedure well. Gigi Sosa MD
--- NOTE | 2018-12-17 08:32 | CON ---
DATE: 12/15/2018 PULMONARY CONSULTATION HISTORY OF PRESENT ILLNESS: We were asked by Dr. Mann, Coal Picker to evaluate and help treat this 73-year-old woman who was admitted to Intensive Care Unit with diagnosis of septic shock, chronic obstructive pulmonary disease, hypoxia and obstructive sleep apnea. The patient is well known to our service from previous admissions to Intensive Care Unit. PAST MEDICAL HISTORY: Her past medical history is contained within our prior consultations. According to the , who is present at the bedside, her condition become deteriorated one day prior to Intensive Care Unit admission with increasing shortness of breath, decreased blood pressure and overall lethargy. Currently, the patient is on multiple pressors. She has received vitamin K earlier. She is on dialysis and the catheter is now being used for both that purpose as well as pressors. REVIEW OF SYSTEMS: Shortness of breath, edema, lethargy. No vomiting, no rashes, no memory loss, no chest pains, hemoptysis or pleurisy. All other systems negative. PHYSICAL EXAMINATION: GENERAL: The patient is lethargic. VITAL SIGNS: Respirations are shallow. Respiratory rate is 22, pulse is 102, blood pressure is 85/39, and pulse oximetry is 82. However the tracing reveals poor circulation in the finger, so it is not reliable. HEENT: Head: Normocephalic and atraumatic. NECK: Supple with no jugular vein distention. CARDIOVASCULAR: S1 and S2. No S3. Irregular. PULMONARY: Diminished breath sounds at both lung bases. GASTROINTESTINAL: Soft and nontender. No organomegaly. : Within normal limits EXTREMITIES: 3+ pedal edema. Some cyanosis. NEUROLOGIC: Limited at present time. SKIN: Dry; intact MEDICATIONS: I have reviewed her current medications, which include inhalations of DuoNeb. She is on fluticasone, hydrocortisone, dopamine and norepinephrine. She is on meropenem for antibiotics. She is on vasopressin and amiodarone. LABORATORY DATA: This morning, her WBC is 14.9, hemoglobin of 6.9, and hematocrit of 22. INR is over 20 and PTT is 133. Her liver function tests are elevated. Sodium 139, potassium elevated at 5.7, and creatinine of 3.6. Her arterial blood gas reveals pH of 6.8, pCO2 of 13 and PO2 of 304. ASSESSMENT: 1. Severe septic shock. 2. Severe metabolic acidosis, currently vented. The patient's condition is extremely critical and the prognosis is extremely poor. I discussed her condition with professor of political science, Dr. Sosa, who still implies all the measures for supporting and treating the patient; however, he as well is aware of her extreme situation and extremely poor prognosis. Valerio Pritchett MD MTDD
--- NOTE | 2018-12-17 08:55 | PN ---
DATE: 12/15/2018 SUBJECTIVE: She is in the intensive care unit. She is now intubated. She is going through a little bit of septic shock, infected decubitus, CHF, obesity, AFib, COPD, end-stage renal disease on hemodialysis. She is in trouble. She is on albumin, Aranesp, ascorbic acid, Bactroban cream, Pulmicort, Coumadin, dextrose, DuoNebs, epinephrine, Flonase, Florinef, insulin, Lotrisone, Merrem IV, Levophed, Periactin, ProAmatine, Protonix, Silvadene cream, Solu-Cortef, Synthroid, vancomycin IV, vasopressin, thiamine, and vitamin K. PHYSICAL EXAMINATION: VITAL SIGNS: She has a 96.8 temperature, 90 pulse, 17 respiratory rate, 96/47 blood pressure, 100% O2 sat on mechanical ventilator. HEAD: Atraumatic, normocephalic. HEART: Regular rate. LUNGS: Decreased breath sounds. Poor inspiration on the ventilator. ABDOMEN: Soft, morbidly obese. EXTREMITIES: +4 pitting edema, lymphedema of bilateral thigh, ulcers in different stages of healing. LABORATORY DATA: She has a 14.9 white count, it bumped up; 6.9 hemoglobin, she will be transfused; 22.2 hematocrit with 163 platelets. Her INR is greater than 20. First, she is only getting a small amount of Coumadin, she has been on that for many, many months despite due to septic shock that is increasing so high. Sodium 139, potassium 5.7, BUN 22, creatinine 3.6, sugar 75, total bili is 1.9. AST is 1092, ALT is 268, and alk phos 209. Protein is 4.3. ASSESSMENT AND PLAN: She is not going to do well. She is in deep trouble. We will continue with aggressive treatment and care. She is being seen by the pharmacy stock clerk, Infectious Disease, Renal, Cardiology, and Surgery. I do not know how she is going to get out of this situation and she has had acute respiratory failure. We will keep on aggressive treatment and care. Discussed with the and the relatives at length. Alan Mann DO [facility] # [id number]
== END 2018-12-15 17:26 | DRG 871 ==
LOC: ED 23:24 → ERH 12-13 02:42 → ICU 12-13 04:52
PROVIDERS: ADMIT Family Medicine; ATTEND Family Medicine
PROC: 5A1D70Z Performance of Urinary Filtration, Intermittent, Less than 6 Hours Per Day (ICD-10-PCS; 2018-12-13)
PROC: 0BH17EZ Insertion of Endotracheal Airway into Trachea, Via Natural or Artificial Opening (ICD-10-PCS; principal; 2018-12-15)
PROC: 0BH18EZ Insertion of Endotracheal Airway into Trachea, Via Natural or Artificial Opening Endoscopic (ICD-10-PCS; 2018-12-15)
PROC: 5A1935Z Respiratory Ventilation, Less than 24 Consecutive Hours (ICD-10-PCS; 2018-12-15)
PROC: 30233K1 Transfusion of Nonautologous Frozen Plasma into Peripheral Vein, Percutaneous Approach (ICD-10-PCS; 2018-12-15)
PROC: 30233N1 Transfusion of Nonautologous Red Blood Cells into Peripheral Vein, Percutaneous Approach (ICD-10-PCS; 2018-12-15)
PROC: 5A12012 Performance of Cardiac Output, Single, Manual (ICD-10-PCS; 2018-12-15)
DX: A41.9 Sepsis, unspecified organism (principal); R65.21 Severe sepsis with septic shock; K72.00 Acute and subacute hepatic failure without coma; N17.0 Acute kidney failure with tubular necrosis; N18.6 End stage renal disease; D65 Disseminated intravascular coagulation [defibrination syndrome]; G93.41 Metabolic encephalopathy; J96.01 Acute respiratory failure with hypoxia; E87.2 Acidosis; I13.2 Hypertensive heart and chronic kidney disease with heart failure and with stage 5 chronic kidney disease, or end stage renal disease; N25.81 Secondary hyperparathyroidism of renal origin; R57.8 Other shock; D50.9 Iron deficiency anemia, unspecified; E11.22 Type 2 diabetes mellitus with diabetic chronic kidney disease; E11.51 Type 2 diabetes mellitus with diabetic peripheral angiopathy without gangrene; E11.649 Type 2 diabetes mellitus with hypoglycemia without coma; E55.9 Vitamin D deficiency, unspecified; E66.01 Morbid (severe) obesity due to excess calories; E86.0 Dehydration; E87.5 Hyperkalemia; E87.6 Hypokalemia; G47.33 Obstructive sleep apnea (adult) (pediatric); I25.10 Atherosclerotic heart disease of native coronary artery without angina pectoris; I27.29 Other secondary pulmonary hypertension; I27.81 Cor pulmonale (chronic); I48.2 Chronic atrial fibrillation; I50.9 Heart failure, unspecified; I87.2 Venous insufficiency (chronic) (peripheral); I87.8 Other specified disorders of veins; I95.3 Hypotension of hemodialysis; J43.9 Emphysema, unspecified; K21.9 Gastro-esophageal reflux disease without esophagitis; N28.1 Cyst of kidney, acquired; Z74.01 Bed confinement status; Z79.01 Long term (current) use of anticoagulants; Z79.890 Hormone replacement therapy; Z87.440 Personal history of urinary (tract) infections; Z99.2 Dependence on renal dialysis; Z68.39 Body mass index [BMI] 39.0-39.9, adult